=== PATIENT | female | born 1990 | race Caucasian/White ===

== ENCOUNTER 2017-07-29 14:24 | Emergency (ER) | payer MEDICAID, SELFPAY ==
[2017-07-29 14:24] VITALS: BP 154/103; PULSE 135; RESP 16; TEMP 36.5; O2SAT 99; BMI 22.9
[2017-07-29 14:48] VITALS: BP 118/100; PULSE 133; RESP 16; O2SAT 98
--- NOTE | 2017-07-29 14:54 | ED.DCSUM_ITS ---
- ER Visit Summary Date of Service: 07/29/17 Chief Complaint: [Eye redness and drainage, back pain] History of Present Illness: The patient is a 26 F [presents to the emergency department with complaint of bilateral red eyes that started yesterday. Patient states that she just got out of skilled nursing 2 days ago. Patient has a history of chronic back pain and describes some discomfort in her lower back and into the left buttock. Patient has a history of sciatica. Patient denies any sick contacts. Patient has had drainage from both eyes.] Physical Examination: HEENT-PERRLA, EOMI. Cranial nerves II through XII grossly intact. TMs clear. Mucous membranes moist. No adenopathy. Patient has some greenish drainage from both eyes and conjunctival erythema noted. Back exam-patient has some tenderness over the left lumbar paraspinal musculature and left buttock. Cardiovascular-regular rate and rhythm without murmur or ectopy Lungs-clear to auscultation, chest wall stable without crepitus or subcu emphysema Abdomen-normoactive bowel sounds, soft, nontender, no rebound or rigidity, no peritoneal signs. Extremities-intact ?4, normal range of motion, normal pulses, atraumatic[]. Patient has extensive track howe to both upper extremities. Test Results: [None indicated] Emergency Department Course and Treatment: [Patient was given gentamicin ophthalmic eyedrops.] Treatment Plan: [Patient will be treated with gentamicin ophthalmic drops and Flexeril.] Disposition: [Discharged to home in stable condition. Patient advised to follow -up with primary care physician branch operations manager for no doc within next 3-5 days.] Impression: [Bacterial conjunctivitis Acute exacerbation of chronic back pain.] This note was generated with [employer] dictation software. It may contain incorrect words, spelling, and punctuation that were not noted in review of the chart prior to signing ED Disposition - Plan for ED Patient: Chief Complaint: Eye Problem Referrals: Care Physician,No Primary [Primary Care Provider] -
--- NOTE | 2017-07-29 14:55 | ED.DEP ---
ED Disposition - Plan for ED Patient: Chief Complaint: Eye Problem Instructions: ED Conjunctivitis Bacterial, ED Neck Back Pain General Prescriptions: Cyclobenzaprine [Flexeril] 10 mg PO TID PRN #20 tab PRN Reason: Muscle Spasm Referrals: Care Physician,No Primary [Primary Care Provider] - Rosario Benitez DO [STAFF PHYSICIAN] - 3-5 Days
[2017-07-29] MEDS: Gentamicin Sulfate 1 OPTH.BTL 2 DRP EACH EYE (14:59)
[2017-07-29 15:01] VITALS: BP 156/101; PULSE 123; RESP 16; O2SAT 96
== END 2017-07-29 15:13 | disposition home or self-care (01) ==
PROVIDERS: Emergency Provider Emergency Medicine
DX: H10.89 Other conjunctivitis (principal); M54.9 Dorsalgia, unspecified; G89.29 Other chronic pain; F32.9 Major depressive disorder, single episode, unspecified; F41.9 Anxiety disorder, unspecified; Z72.0 Tobacco use
CPT/HCPCS: 99282

== ENCOUNTER 2017-12-14 18:17 | Emergency (ER) | payer MEDICAID, SELFPAY ==
[2017-12-14 18:18] VITALS: BP 127/72; PULSE 99; RESP 18; TEMP 36.6; O2SAT 100; BMI 22.3
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
--- NOTE | 2017-12-14 19:00 | RAD_ITS ---
STUDY: X-RAY - RIGHT HAND, ATTENTION MINIMAL FINGER REASON FOR EXAM: Female, 27 years old. Trauma TECHNIQUE: 3 view(s) of the finger were obtained. COMPARISON: None. FINDINGS: There is no evidence of fracture or dislocation. There are no significant degenerative changes. There are no radiodense foreign bodies. RAD/Finger(s) Min 2 Views IMPRESSION: No fracture or dislocation. Electronically Signed: Azael Santoyo, at 19:33 EDT Tel , Service support ,
== END 2017-12-14 19:29 | disposition home or self-care (01) ==
PROVIDERS: Emergency Provider Emergency Medicine
DX: S60.031A Contusion of right middle finger without damage to nail, initial encounter (principal); V19.88XA Pedal cyclist (driver) (passenger) injured in other specified transport accidents, initial encounter; Y93.55 Activity, bike riding; Y92.9 Unspecified place or not applicable; Y99.9 Unspecified external cause status; F17.200 Nicotine dependence, unspecified, uncomplicated
CPT/HCPCS: 73140; 99283

== ENCOUNTER 2018-04-27 21:46 | Emergency (ER) | payer SELFPAY ==
[2018-04-27 21:47] VITALS: BP 123/84; PULSE 110; RESP 17; TEMP 37.3; O2SAT 97; BMI 21.1
[2018-04-27 21:54] VITALS: TEMP 36.8
--- NOTE | 2018-04-27 22:04 | ED.VISSUMM ---
- ER Visit Summary Date of Service: 04/27/18 Chief Complaint: Tongue pain History of Present Illness: The patient is a 27 F who replaced her tongue ring on April 21 after having been out for a month. She noted increased pain and swelling to her tongue around the site and took the piercing out after 2 days. She continues to have intermittent tongue swelling. She has not noted significant drainage. She has not had fever. Physical Examination: Vital signs significant only for heart rate of 110. She is afebrile. Head neck examination reveals no facial edema or erythema. Intraoral exam reveals mild tongue edema around her piercing site. There is no drainage. There is no palpable abscess. Posterior pharynx exam is normal. Test Results: [] Emergency Department Course and Treatment: Patient be treated with a course of Pen-Vee K, first dose given here. Treatment Plan: [] Disposition: Discharge Impression: Infected tongue piercing This note was generated with [employer] dictation software. It may contain incorrect words, spelling, and punctuation that were not noted in review of the chart prior to signing ED Disposition - Plan for ED Patient: Disposition: Home or Assisted Living Chief Complaint: Other, Pain/Inj Instructions: ED Laceration Mouth Prescriptions: Penicillin V Potassium 500 mg PO 4X/DAY #40 tablet
--- NOTE | 2018-04-27 22:08 | DCINST.ED_ITS ---
ED Disposition - Plan for ED Patient: Disposition: Home or Assisted Living Chief Complaint: Other, Pain/Inj Instructions: ED Laceration Mouth Prescriptions: Penicillin V Potassium 500 mg PO 4X/DAY #40 tablet
[2018-04-27] MEDS: Penicillin Vk 250 MG Tablet 500 MG PO (22:17)
--- NOTE | 2018-04-27 22:21 | ED.RN ---
PT GIVEN WRITTEN AND VERBAL DISCHARGE INSTRUCTIONS. PT DENIES ANY FURTHER QUESTIONS. PT AMBULATES OUT OF DEPT WITH FRIEND.
== END 2018-04-27 22:24 | disposition home or self-care (01) ==
LOC: ED 22:14
PROVIDERS: Emergency Provider Emergency Medicine
DX: K14.0 Glossitis (principal); T18.0XXA Foreign body in mouth, initial encounter; W26.8XXA Contact with other sharp object(s), not elsewhere classified, initial encounter; Y93.9 Activity, unspecified; Y92.9 Unspecified place or not applicable; Y99.9 Unspecified external cause status; M54.9 Dorsalgia, unspecified; Z72.0 Tobacco use
CPT/HCPCS: 99283

== ENCOUNTER 2018-04-30 23:11 | Emergency (ER) | payer SELFPAY ==
[2018-04-30 23:12] VITALS: BP 157/113; PULSE 93; RESP 24; TEMP 36.4; O2SAT 100; BMI 22.1
--- NOTE | 2018-04-30 23:39 | ED.RN ---
LET APPLIED TO THE WOUND
[2018-04-30] MEDS: Lidocaine/Epi/Tetracaine 50 ML 1 APPLIC TOPICAL (23:40)
[2018-04-30] MEDS: Diphth,Pertuss(Acell),Tet Vac 0.5 ML Vial IM (23:54)
--- NOTE | 2018-05-01 | ED.RN ---
[employer] SPEAKING WITH PT. VAL[employer]IE POLICE PINK SLIPPED PT. DR. FORD, STATES PT NEEDS TO BE UNDER SUICIDE PRECAUTIONS. .
[2018-05-01 00:30] LABS: Absolute Lymphocyte Count 1.67 X10^3/ul (0.83-4.51); Absolute Neutrophil Count 2.6 X10^3/uL (2.0-7.7); Basophil# 0.04 X10^3/uL; Basophil% 0.8 % (0-1); Eosinophil# 0.16 X10^3/uL; Eosinophils% 3.2 % (0-5); Hematocrit 39.3 % (37-47); Hemoglobin 13.2 g/dl (12.0-15.0); Lymphocyte # 1.67 X10^3/ul (4.0); Lymphocyte % 33.5 % (19-41); Mean Corp Hgb Conc 33.6 g/gl (32-36); Mean Corpuscular Volume 86.4 fL (81-99); Neutrophil % 52.3 % (47-70); Platelet Count 311 K/mm3 (150-450); RBC Distribution Width CV 13.6 % (11.6-14.6); RBC Distribution Width SD 42.1 fl (35.1-43.9); Red Blood Count 4.55 M/mm3 (4.2-5.4)
[2018-05-01 00:31] LABS: POSITIVE COUNT NO; POSITIVE DIFFERENTIAL NO; POSITIVE MORPHOLOGY NO
[2018-05-01 00:42] LABS: Anion Gap 10 (5-15); BUN 10 mg/dL (7-18); Calcium,Total 8.6 mg/dL (8.5-10.1); Chloride 108 mmol/L (98-107); Creatinine, Serum 0.83 mg/dL (0.55-1.02); EST Glomerular Filtration Rate 87 mL/min (>60); Est Glom Filt Rate - Afr Amer 105 mL/min (>60); Estimated Creatinine Clearance 99.01 ml/min; Glucose 99 mg/dL (74-106); Potassium 3.5 mmol/L (3.5-5.1); Sodium Level 140 mmol/L (136-145)
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
[2018-05-01 01:20] LABS: Pregnancy, Serum, hCG Quali. NEGATIVE Negative (0-9 Nonpreg)
[2018-05-01 01:30] LABS: Amphetamine Urine VISTA POSITIVE (<1000 ng/mL); Barbiturate Urine VISTA NEGATIVE (< 200 ng/mL); Benzodiazepine Urine VISTA NEGATIVE (< 200 ng/mL); Cocaine Urine VISTA NEGATIVE (< 300 ng/mL); Ecstacy Urine VISTA POSITIVE (< 500 ng/mL); Methadone Urine VISTA NEGATIVE (< 300 ng/mL); PCP Urine VISTA NEGATIVE (< 25 ng/mL); THC Urine VISTA NEGATIVE (< 50 ng/mL); Vista UDS pH Range 5
--- NOTE | 2018-05-01 01:56 | ED.DEP ---
ED Disposition - Plan for ED Patient: Disposition: Home or Assisted Living Chief Complaint: Overdose Diagnosis: Heroin overdose, Facial laceration, Tetanus Instructions: ED Laceration Facial Sutr Tape, ED Overdose Opiate Referrals: EIGHTY,ONE [STAFF PHYSICIAN] - Keep Pat appointment
[2018-05-01 02:19] VITALS: PULSE 105; RESP 15; O2SAT 98
== END 2018-05-01 02:51 | disposition home or self-care (01) ==
PROVIDERS: Emergency Provider Emergency Medicine
DX: T40.1X1A Poisoning by heroin, accidental (unintentional), initial encounter (principal); F11.20 Opioid dependence, uncomplicated; Y92.9 Unspecified place or not applicable; S01.81XA Laceration without foreign body of other part of head, initial encounter; X58.XXXA Exposure to other specified factors, initial encounter; Y93.9 Activity, unspecified; Y99.9 Unspecified external cause status; Z23 Encounter for immunization; Z72.0 Tobacco use
CPT/HCPCS: 12011; 80048; 80307; 80320; 84703; 85025; 90471; 90715; 99285; G0480

== ENCOUNTER 2018-06-13 18:54 | Emergency (ER) | payer SELFPAY ==
[2018-06-13 18:54] VITALS: BP 141/91; PULSE 118; RESP 16; TEMP 36.3; O2SAT 96; BMI 21.1
--- NOTE | 2018-06-13 22:22 | ED.DCSUM_ITS ---
- ER Visit Summary Date of Service: 06/13/18 Chief Complaint: Sore throat, congestion History of Present Illness: The patient is a 27 F presenting with sore throat, congestion. Her symptoms have been ongoing for the past 3 days. She complains of painful swallowing but no difficulty swallowing. She complains of subjective fever, chills. She has had rhinorrhea and dry cough. She states yesterday she actually felt worse than she does today. She has multiple sick contacts. Physical Examination: Vitals are stable. Patient is afebrile. Alert no acute distress. HEENT exam pharyngeal erythema with no exudate. Uvula midline Neck is supple. No meningismus Lungs are clear and equal bilaterally. Heart is regular rate and rhythm. Abdomen is soft nontender nondistended. Extremities are unremarkable. Skin is warm and dry. No rash Remainder of exam is unremarkable. Emergency Department Course and Treatment: Rapid strep is negative. She was given Decadron p.o. Advised to follow-up with Dr. Eaton consulting marine engineer for no doc. Advised return to ED if worsening complaints. Disposition: Discharge home Impression: Pharyngitis, URI This note was generated with [employer] dictation software. It may contain incorrect words, spelling, and punctuation that were not noted in review of the chart prior to signing ED Disposition - Plan for ED Patient: Referrals: Care Physician,No Primary [Primary Care Provider] -
[2018-06-13 22:26] VITALS: BP 133/88; PULSE 110; RESP 16; TEMP 36.8; O2SAT 96
[2018-06-13 22:28] VITALS: BP 133/88; PULSE 78; RESP 16; TEMP 36.8; O2SAT 98
--- NOTE | 2018-06-13 23:13 | ED.DEP ---
ED Disposition - Plan for ED Patient: Instructions: ED Pharyngitis Viral Referrals: Edelmira Eaton MD [STAFF PHYSICIAN] -
[2018-06-13 23:25] VITALS: BP 130/81; PULSE 78; RESP 16; O2SAT 97
== END 2018-06-13 23:26 | disposition home or self-care (01) ==
PROVIDERS: Emergency Provider Emergency Medicine
DX: J02.9 Acute pharyngitis, unspecified (principal); J06.9 Acute upper respiratory infection, unspecified; Z72.0 Tobacco use
CPT/HCPCS: 87880; 99282

== ENCOUNTER 2018-10-01 20:51 | Emergency (ER) | payer MEDICAID, SELFPAY ==
[2018-10-01 20:53] VITALS: BP 116/76; PULSE 126; RESP 18; TEMP 37.8; O2SAT 99; BMI 21.9
--- NOTE | 2018-10-01 22:29 | ED.VIS.GEN ---
History of Present Illness Chief Complaint: Sore Throat Informant: Patient Onset: Yesterday Context: Sudden Onset Timing: Continuous Quality: Nasal congestion, fever, cough and sore throat Location: respiratory Current Severity: Moderate Maximum Severity: Moderate Worsened by: Congestion worse if she leans forward Relieved by: Nothing Associated Symptoms: Respiratory symptoms with fever Narrative: Patient is a 28-year-old woman who smokes 1/4 to 1/2 pack/day and presents with nasal congestion, sore throat, nonproductive cough and subjective fever. She denies chills. She denies headache. She denies photophobia. She denies ear pain. She denies rash. Prior similar symptoms: No Recent Illness/Hospitalization: No - Past Medical History (1) No significant past medical history Status: Acute Past Medical History - Allergies and Home Meds Allergies/Adverse Reactions: Allergies naproxen [From Naprosyn] Adverse Reaction (Verified 10/01/18 20:55) Nausea Primary Care Physician: Woody Infante DO [Primary Care Provider] - Prior records reviewed: No Past Medical History: None Surgical History: no surgical history Lives: Spouse/ Significant Other Smoking Status: Current every day smoker Alcohol: Rare Review of Systems General: Reports: Chills, Fever, Malaise, Subjective. Denies: Sweats, Weight loss Eyes: Denies: Visual changes - bilaterally, Blurred Vision - bilaterally, Diplopia ENT: Reports: Rhinorrhea, Sore throat. Denies: Bilateral ear pain Cardiovascular: Denies: Chest pain, Palpitations, Heart racing Respiratory: Reports: Cough. Denies: Dyspnea, Sputum, Dyspnea on exertion Gastrointestinal: Reports: Abdominal pain, Nausea, Vomiting Genitourinary: Denies: Dysuria, Hematuria, Frequency Musculoskeletal: Denies: Myalgias, Arthralgias, Neck pain, Back pain, Extremity Pain Skin: Denies: Rash, Wounds Neurological: Denies: Headache, Weakness, Numbness Endocrine: Denies: Polyuria, Polydipsia, Heat intolerance, Cold intolerance, -, - Hematologic: Denies: Easy bruising, Easy bleeding, Lymphadenopathy, -, - Physical Exam Vital Signs/Narrative: Vital Signs Temp Pulse Resp BP Pulse Ox 10/01/18 20:53 100.1 F H 126 H 18 116/76 99 Inital Vital Signs reviewed: Yes General: Well nourished, Well developed, No Acute Distress Head: Normocephalic, Atraumatic Eyes: Perrl, EOMI. Negative for: Pale conjunctiva, Scleral icterus, - ENT: Moist mucous membranes, TM's clear. Negative for: No rhinorrhea, Sinus tenderness Neck: Supple, Nontender, No lymphadenopathy, No JVD Cardiovascular: Regular rhythm, No murmurs, Normal S1, Normal S2, Tachycardia Respiratory: No distress, CTA bilaterally, Chest nontender Abdomen: Soft, Nontender, Nondistended, Normal bowel sounds Rectal: Deferred Back: Nontender, Normal Inspection. Negative for: CVA tenderness Extremities: Nontender, No edema Skin: Normal color, No rash. Negative for: Cyanosis, Jaundice Neurological: Alert, Oriented x3, Cranial nerves II-XII grossly intact, Normal Strength, Normal Sensation Psychological: Normal affect, Normal Mood Diagnostic/Tx/Re-eval Chest X-Ray - ED: 2 View, Read by ED Physician, Normal, Heart, Lungs, Mediastinum, Bony Structures, No Acute Disease - Medical Decision Making Since patient is tachycardic and febrile with cough will obtain chest x-ray. Differential is bronchitis versus pneumonia. Patient's x-ray is negative. Symptoms consistent with viral upper respiratory infection. Symptomatic care. Discharged with appropriate home-going instructions. ED Disposition - Plan for ED Patient: Disposition: Home or Assisted Living Diagnosis: Viral upper respiratory infection, Fever Instructions: ED URI Viral Referrals: Woody Infante DO [Primary Care Provider] - 1 Week if not improving Additional Instructions: It is in your best interest to stop smoking. Because you do smoke he may have a cough up to 4 weeks.
--- NOTE | 2018-10-01 22:45 | RAD_ITS ---
STUDY: X-RAY CHEST REASON FOR EXAM: Female, 28 years old. Cough. Congestion. TECHNIQUE: PA and lateral views of the chest. COMPARISON: April 18, 2015. FINDINGS: The lungs are clear and expanded. There is no demonstrated pleural abnormality. Normal size heart. Normal mediastinum and ivania. Normal visualized pulmonary arteries. Normal visualized aortic arch and descending thoracic aorta. Normal visualized thoracic spine. Normal visualized ribs, clavicles, and shoulders. There is no demonstrated abnormality of the visualized soft tissue structures of the upper abdomen. RAD/Chest PA and Lateral IMPRESSION: Normal x-ray examination of the chest. Electronically Signed: Alvarez Leonard MD at 23:01 EDT , Service support ,
[2018-10-01 23:31] VITALS: BP 122/76; PULSE 119; RESP 18; O2SAT 99
== END 2018-10-01 23:32 | disposition home or self-care (01) ==
PROVIDERS: Emergency Provider Emergency Medicine; Family Provider Family Medicine; PCP Family Medicine
DX: J06.9 Acute upper respiratory infection, unspecified (principal); R50.9 Fever, unspecified; F17.200 Nicotine dependence, unspecified, uncomplicated; Z88.6 Allergy status to analgesic agent
CPT/HCPCS: 71046; 99282

== ENCOUNTER → 2019-01-29 09:42 | Outpatient (CLI) | payer MEDICAID, SELFPAY ==
[2019-01-29 09:15] VITALS: BMI 21.9
[2019-01-29 12:24] LABS: Hematocrit 44.4 % (37-47); Hemoglobin 14.4 g/dL (12.0-15.0); Mean Corp Hgb Conc 32.4 g/dL (32-36); Mean Corpuscular Hgb 28.8 pg (27.0-32.0); Mean Corpuscular Volume 88.8 fL (81-99); Mean Platelet Vol. 10.5 fl (6.2-12.0); Platelet Count 349 K/mm3 (150-450); RBC Distribution Width CV 12.5 % (11.6-14.6); RBC Distribution Width SD 40.6 fl (35.1-43.9); White Blood Count 4.3 K/mm3 (4.4-11.0)
[2019-01-29 12:40] LABS: ALB/GLOB Ratio 0.9 RATIO (0.9-2.4); AST(SGOT) 79 U/L (15-37); Alanine Aminotransfer ALT/SGPT 152 U/L (13-56); Albumin, Serum 3.7 g/dL (3.2-5.0); Alkaline Phosphatase 86 U/L (45-117); Anion Gap 6 (5-15); BUN 19 mg/dL (7-18); BUN/Creat Ratio 23.5 RATIO (10-20); Calcium,Total 9.1 mg/dL (8.5-10.1); Chloride 107 mmol/L (98-107); Creatinine, Serum 0.81 mg/dL (0.55-1.02); EST Glomerular Filtration Rate 90 mL/min (>60); Est Glom Filt Rate - Afr Amer 108 mL/min (>60); Glucose 82 mg/dL (74-106); Potassium 4.4 mmol/L (3.5-5.1); Protein, Total 7.7 g/dL (6.4-8.2); Sodium Level 140 mmol/L (136-145); Thyroid Stim Hormone (TSH) 0.77 uIU/mL (0.358-3.74)
[2019-01-29 13:58] LABS: HIV - WCH Non-Reactive (Nonreactive)
[2019-01-30 06:07] LABS: HEPATITIS B SURFACE AG Negative (Negative); Hepatitis A AB, Total Negative (Negative); Hepatitis A IgM Antibody Negative (Negative); Hepatitis B Core AB IgM Negative (Negative); Hepatitis B Core Ab Total Negative (Negative)
[2019-01-30 15:25] LABS: Hep B Surface Antibodies Reactive (.); Hepatitis C Ab >11.0 s/co ratio (0.0-0.9)
[2019-02-05 20:07] LABS: HCV Quant. RNA PCR 129000 IU/mL (.)
[2019-02-07 11:09] LABS: HCV log 10 5.111 (.)
== END ==
PROVIDERS: Family Provider Family Medicine; PCP Internal Medicine; Visit Provider Nurse Practitioner Family
DX: B19.20 Unspecified viral hepatitis C without hepatic coma (principal); F19.10 Other psychoactive substance abuse, uncomplicated
CPT/HCPCS: 36415; 80053; 84443; 85027; 86703; 86704; 86705; 86706; 86708; 86709; 86803; 87340; 87521; 87522

== ENCOUNTER → 2019-03-11 15:16 | Outpatient (CLI) | payer MEDICAID, SELFPAY ==
[2019-02-26 13:13] VITALS: BMI 29.4
[2019-03-11 17:13] LABS: Hematocrit 41.7 % (37-47); Hemoglobin 13.6 g/dL (12.0-15.0); Mean Corp Hgb Conc 32.6 g/dL (32-36); Mean Corpuscular Hgb 28.3 pg (27.0-32.0); Mean Corpuscular Volume 86.7 fL (81-99); Mean Platelet Vol. 10.5 fl (6.2-12.0); Platelet Count 368 K/mm3 (150-450); RBC Distribution Width CV 12.7 % (11.6-14.6); RBC Distribution Width SD 40.3 fl (35.1-43.9); Red Blood Count 4.81 M/mm3 (4.2-5.4); White Blood Count 7.1 K/mm3 (4.4-11.0)
[2019-03-11 18:00] LABS: AST(SGOT) 30 U/L (15-37); Alanine Aminotransfer ALT/SGPT 69 U/L (13-56); Albumin, Serum 3.9 g/dL (3.2-5.0); Alkaline Phosphatase 99 U/L (45-117); Anion Gap 9 (5-15); BUN 13 mg/dL (7-18); BUN/Creat Ratio 17.1 RATIO (10-20); Calcium,Total 8.7 mg/dL (8.5-10.1); Chloride 105 mmol/L (98-107); Creatinine, Serum 0.76 mg/dL (0.55-1.02); EST Glomerular Filtration Rate 96 mL/min (>60); Est Glom Filt Rate - Afr Amer 116 mL/min (>60); Globulin 3.8 g/dL (2.2-4.2); Glucose 79 mg/dL (74-106); Potassium 3.5 mmol/L (3.5-5.1); Protein, Total 7.7 g/dL (6.4-8.2); Sodium Level 138 mmol/L (136-145); Thyroid Stim Hormone (TSH) 0.77 uIU/mL (0.358-3.74)
[2019-03-12 09:28] LABS: HIV - WCH Non-Reactive (Nonreactive); Hepatitis B Surface Antibody Reactive; Hepatitis B Surface Antigen Non-Reactive (Nonreactive)
[2019-03-13 14:53] LABS: Hepatitis B Core Ab Total Negative (Negative)
== END ==
PROVIDERS: Family Provider Internal Medicine; PCP Internal Medicine; Referring Provider Internal Medicine Infectious Disease; Visit Provider Internal Medicine Infectious Disease
DX: B18.2 Chronic viral hepatitis C (principal)
CPT/HCPCS: 36415; 80053; 84443; 85027; 86703; 86704; 86706; 87340

== ENCOUNTER 2019-04-02 13:03 | Emergency (ER) | payer MEDICAID, SELFPAY ==
[2019-02-26 13:13] VITALS: BMI 29.4
[2019-04-02 13:03] VITALS: BP 132/65; PULSE 100; RESP 18; TEMP 36.6; O2SAT 96; BMI 28.1
--- NOTE | 2019-04-02 13:14 | ED.DCSUM_ITS ---
- ER Visit Summary Date of Service: 04/02/19 Chief Complaint: [Headache] History of Present Illness: The patient is a 28 F [presents the emergency department stating that she has had a migraine headache for the last 2 days. Patient states the headache came on gradually. Patient states the headache is typical of her migraines. She describes pain to both sides of her head however more significant on the left side of her head. She denies any falls or head injuries. She denies recent illness. She denies any fevers. She does describe some mild nausea and some mild photophobia. Patient's been using Excedrin Migraine without any relief.] Physical Examination: [HEENT-PERRLA, EOMI. Cranial nerves II through XII grossly intact. TMs clear. Mucous membranes moist. No adenopathy. Cardiovascular-regular rate and rhythm without murmur or ectopy Lungs-clear to auscultation, chest wall stable without crepitus or subcu emphysema Abdomen-normoactive bowel sounds, soft, nontender, no rebound or rigidity, no peritoneal signs. Neuro doom-khhsrr-gshg and heel dominique testing within normal limits, negative Romberg, negative pronator, fundi benign Extremities-intact ?4, normal range of motion, normal pulses, atraumatic] Test Results: [None indicated] Emergency Department Course and Treatment: [Patient was given a liter normal saline fluid bolus as well as Reglan, Benadryl, and Toradol.] Patient's headache resolved after treatment. Treatment Plan: [Patient to follow-up with primary care physician as needed. Patient advised to return if worsening headache, difficulty with balance or speech, or condition should worsen anyway.] Disposition: [Discharged home in stable condition.] Impression: [Migrainous cephalgia-resolved] This note was generated with [employer] dictation software. It may contain incorrect words, spelling, and punctuation that were not noted in review of the chart prior to signing ED Disposition - Plan for ED Patient: Referrals: Navi Kemp MD [Primary Care Provider] -
[2019-04-02] MEDS: DiphenhydrAMINE 50 MG/ML Syringe 25 MG IV (13:31)
[2019-04-02] MEDS: Ketorolac 30 MG/ML Syringe IV (13:33)
[2019-04-02] MEDS: Metoclopramide 10 MG/2 ML Vial IV (13:34)
[2019-04-02] MEDS: 0.9% Normal Saline 1,000 ML 1000 ML IV (13:34)
--- NOTE | 2019-04-02 13:55 | ED.DEP ---
ED Disposition - Plan for ED Patient: Instructions: ED, Migraine (Classical) Referrals: Navi Kemp MD [Primary Care Provider] - As Needed
[2019-04-02 14:06] VITALS: BP 105/69; PULSE 71; RESP 16; O2SAT 99
== END 2019-04-02 14:08 | disposition home or self-care (01) ==
LOC: ED 13:42
PROVIDERS: Emergency Provider Emergency Medicine; Family Provider Internal Medicine; PCP Internal Medicine
DX: G43.909 Migraine, unspecified, not intractable, without status migrainosus (principal); F31.9 Bipolar disorder, unspecified; F41.9 Anxiety disorder, unspecified; Z72.0 Tobacco use; Z79.899 Other long term (current) drug therapy
CPT/HCPCS: 96361; 96374; 96375; 99284; J7030; A4216

== ENCOUNTER → 2019-08-11 08:33 | Outpatient (CLI) | payer MEDICAID, SELFPAY ==
[2019-08-08 09:29] VITALS: BMI 29.0
--- NOTE | 2019-08-11 08:34 | US_ITS ---
STUDY: ABDOMINAL ULTRASOUND - RIGHT UPPER QUADRANT REASON FOR VISIT: Female, 28 years old epigastric pain x 3 months TECHNIQUE: Ultrasound evaluation of the right upper quadrant was performed with real-time and static mahoney-scale imaging. TECHNICAL QUALITY: Adequate. COMPARISON: None. FINDINGS: Liver: The liver measures 16.2 cm. There is normal echogenicity of the liver. The bile ducts are within normal limits. There is hepatic color flow. The direction of portal flow is hepatopetal. There is no demonstrated mass lesion. Gallbladder: There is a contracted stone filled gallbladder. The gallbladder wall measures 4.1 mm. There is a positive sonographic Gomez''s sign. There is no pericholecystic fluid. Common Bile Duct (C.B.D.): The common bile duct measures 4.2 mm. Pancreas: Normal size of the head, body and tail of the pancreas. There is normal echogenicity of the pancreas. There is no demonstrated pancreatic mass or cyst. Right Kidney: Normal size of the right kidney. The right kidney measures 10.5 cm x 4.2 cm x 6.9 cm. Normal renal cortex. The right cortex measures 1.9 cm. There is no demonstrated renal mass or cyst. There is no right hydronephrosis. US/Abdomen Limited IMPRESSION: There is a contracted stone filled gallbladder. Positive sonographic Gomez''s sign. Electronically Signed: Adeel Chamberlain, at 11:05 EDT , Service support ,
[2019-08-11 13:31] LABS: Absolute Neutrophil Count 4.9 X10^3/uL (2.0-7.7); Basophil# 0.05 X10^3/uL; Basophil% 0.7 % (0-1); Eosinophil# 0.19 X10^3/uL; Eosinophils% 2.8 % (0-5); Hematocrit 39.6 % (37-47); Hemoglobin 13.4 g/dL (12.0-15.0); Mean Corp Hgb Conc 33.8 g/dL (32-36); Mean Corpuscular Hgb 28.7 pg (27.0-32.0); Mean Corpuscular Volume 84.8 fL (81-99); Mean Platelet Vol. 9.3 fl (6.2-12.0); Monocyte# 0.36 X10^3/uL; Monocyte% 5.3 % (0-10); NRBC Flagged by Analyzer 0 % (0-5); Neutrophil # 4.93 X10^3/uL (2.7-7.7); Neutrophil % 71.9 % (47-70); Platelet Count 319 K/mm3 (150-450); RBC Distribution Width CV 12.9 % (11.6-14.6); RBC Distribution Width SD 39.6 fl (35.1-43.9); Red Blood Count 4.67 M/mm3 (4.2-5.4); White Blood Count 6.9 K/mm3 (4.4-11.0)
[2019-08-11 13:56] LABS: AST(SGOT) 30 U/L (15-37); Alanine Aminotransfer ALT/SGPT 55 U/L (13-56); Albumin, Serum 3.6 g/dL (3.2-5.0); Alkaline Phosphatase 108 U/L (45-117); Anion Gap 6 (5-15); BUN 9 mg/dL (7-18); BUN/Creat Ratio 9.6 RATIO (10-20); Calcium,Total 8.6 mg/dL (8.5-10.1); Chloride 102 mmol/L (98-107); Creatinine, Serum 0.94 mg/dL (0.55-1.02); EST Glomerular Filtration Rate 75 mL/min (>60); Est Glom Filt Rate - Afr Amer 91 mL/min (>60); Globulin 3.7 g/dL (2.2-4.2); Glucose 102 mg/dL (74-106); Potassium 3.9 mmol/L (3.5-5.1); Protein, Total 7.3 g/dL (6.4-8.2); Sodium Level 134 mmol/L (136-145)
== END ==
LOC: US 08:34 → LAB 13:02
PROVIDERS: PCP Internal Medicine; Referring Provider Surgery; Visit Provider Surgery
DX: K80.20 Calculus of gallbladder without cholecystitis without obstruction (principal)
CPT/HCPCS: 36415; 76705; 80053; 85025

== ENCOUNTER 2019-08-22 07:27 | Day surgery (SDC) | payer MEDICAID, SELFPAY ==
[2019-08-08 09:29] VITALS: BMI 29.0
--- NOTE | 2019-08-21 12:53 | PCM.HP.STD ---
Problem List (1) Cholecystitis Status: Acute History of Present Illness Date of Admission: 08/21/19 Chief Complaint: Cholecystitis The patient is a 28 year old F who has been having epigastric pain. I started her on a trial of Carafate and PPI which did not help. She is having right upper quadrant pain and epigastric pain radiating to the back. She says over the last 2 days she is also had nausea and vomiting and worsening of pain. Past Medical History Past Medical History (Chronic Problems): Chronic Problems (Last Reviewed 08/07/19 @ 15:09 by Marisela Riley) Migraines (Chronic) Bipolar disorder (Chronic) Asthma (Chronic) Medical History: Medical History (Last Reviewed 08/07/19 @ 15:09 by Marisela Riley) Alcohol abuse F10.10 Anxiety and depression F41.9, F32.9 Asthma J45.909 Back problem M53.9 Bipolar 1 disorder F31.9 Bone fracture T14.8XXA Drug abuse F19.10 Hearing loss in left ear H91.92 Hx of emotional problems Z86.59 PTSD (post-traumatic stress disorder) F43.10 Pneumonia J18.9 Seasonal allergies J30.2 Vision problem H54.7 Chronic bronchitis J42 Chronic headaches R51 Allergies naproxen [From Naprosyn] Adverse Reaction (Verified 08/07/19 15:06) Nausea otc skin products Adverse Reaction (Intermediate, Uncoded 08/21/19 10:57) Unknown some soaps dry skin out Home Medications: Ambulatory Orders Medication Instructions Recorded acetaminophen 325 mg capsule 325 mg PO Q6H PRN 01/29/19 budesonide-formoterol HFA 160 2 puff INHALATION BID #10.2 g 01/29/19 mcg-4.5 mcg/actuation aerosol inhaler risperidone 1 mg tablet 2 mg PO QHS 01/29/19 albuterol sulfate 90 mcg/actuation 1 - 2 puff INHALATION Q6H PRN #8.5 07/02/19 aerosol inhaler g pantoprazole 40 mg tablet,delayed 40 mg PO DAILY #60 tab 07/22/19 release lidocaine 5 % topical cream 1 applic TOPICAL BID PRN 08/07/19 Lamotrigine [Lamictal] 200 mg PO DAILY 08/21/19 Loratadine [Claritin] 10 mg PO DAILY 08/21/19 Oxcarbazepine [Trileptal] 600 mg PO BID 08/21/19 Sucralfate [Carafate] 1 gm PO 4X/DAY PRN 08/21/19 Sumatriptan Succinate See Rx Instructions PO .COMPLEX 08/21/19 Surgical History: Surgical History (Last Reviewed 08/07/19 @ 15:09 by Marisela Riley) History of laparoscopic appendectomy Z90.49 History of oral surgery Z98.890 Surgical History: no surgical history Smoking Status: Current every day smoker - *Family History Maternal Family History: Family History (Last Reviewed 08/07/19 @ 15:09 by Marisela Riley) Unknown Alcoholism Anxiety Asthma Depression Myocardial infarction Suicide attempt Other Cancer Review of Systems Constitutional: Reports: Anorexia. Denies: Fever Cardiovascular: Denies: Chest Pain Respiratory: Denies: Cough Gastrointestinal: Reports: Abdominal Pain, Nausea, Vomiting Skin: Denies: Jaundice VTE Information - Inpt Only VTE Present on Admission: No VTE Mechan Device Prophylaxis: SCD's - Physical Exam Vitals/I&O's: Body Mass Index (BMI) 29.0 Finger Stick Blood Glucose 119 General: Alert, Oriented x3 Neck: No JVD Lungs: Normal air movement Cardiovascular: Regular Rhythm Abdomen: Soft, Non-Distended, Tender Assessment/Plan All Active Problems (Last Reviewed 08/07/19 @ 15:09 by Marisela Riley) Cholecystitis (Acute) No significant past medical history (Acute) 28-year-old female with acute on chronic cholecystitis 1. The patient has been having epigastric pain and PPI and Carafate did not help. I ordered an ultrasound which showed a contracted gallbladder full of stones. At that time I ordered labs which were all normal. I advised her to have a low-fat diet but she has described worsening of pain and nausea and vomiting that have developed in the interim. I recommend laparoscopic cholecystectomy for her. 2. I discussed the procedure in detail with the patient. I discussed the risks, benefits, and alternatives of the procedure. I discussed the risks including but not limited to bleeding, infection, injury to surrounding organs such as the liver, bile duct, bowels. I did discuss the possibility of having to convert to an open procedure as well as the possibility that if any injuries occurred this may necessitate further surgery at a tertiary care center. Anderson Gilmore MD Pager: [facility] [address] [place] [address], [address] [place] [address] Office: Essential Procedure Criteria Procedure Essential: Yes Criteria Note: On 07/22/2019 the [facility] ([facility]) Public Order signed by [facility] Director Angelina Amaro M.D., regarding the Management of Non-Essential Surgeries and Procedures for the purpose of preserving Personal Protective Equipment (PPE) and critical hospital capacity and resources within [place] went into effect as of 07/23/2019 at 5:00PM. According to the [facility] Public Order: This action will remain in full force and effect until the State of Emergency declared by the Governor no longer exists or the Director of the [facility] rescinds or modifies this Order.. This [facility] order stated all non-essential or elective surgeries and procedures that utilize PPE should be delayed unless there is undue risk to the current or future health of a patient. After reviewing the aforementioned [facility] Public Order and the patients clinical case, I have determined that the scheduled procedure meets the criteria to go forward. Risk to Patient if Procedure Delayed: Risk of rapidly worsening to severe symptoms
[2019-08-22] VITALS (7 sets, daily range): BP systolic 127–139; BP diastolic 71–88; PULSE 83–93; RESP 16; TEMP 36.4–36.6; O2SAT 92–100; BMI 29.0
--- NOTE | 2019-08-22 | GALL_PTH ---
PATIENT: ELVER JONES [place] [facility] [id number] AGE/SX: 28/F ROOM: RE08/22/[address]: Dr. Anderson Gilmore MD : 1990 BED: DIS: 08/22/2019 SPEC #: [id number] RECD: 08/23/19 00:37 STATUS: ORIANA RETara #: [id number] SALINAS: 08/22/19 00:[address]: Anderson Gilmore DEPT: SURGICAL PATHOLOGY RECD BY: Luis Antonio Pacheco ENTERED: 08/25/19 10:08 SP TYPE: ARCADIO LUBIN DR: Dr. Navi Kemp MD Tissues: Gallbladder, NOS Procedures: Surgery Specimen Level III HEADER OPERATION: Laparoscopic cholecystectomy with IOC PRE-OP DIAGNOSIS: Cholecystitis TISSUE SUBMITTED: Gallbladder MICROSCOPIC DIAGNOSIS Gallbladder, cholecystectomy: Chronic cholecystitis and cholelithiasis. AM:gissel 4/21/20 MICROSCOPIC DESCRIPTION Slides are reviewed. GROSS DESCRIPTION Received is one container labeled with the patient's name and designated gallbladder. The specimen consists of a gallbladder measuring 7 cm in length and up to 3 cm in diameter. The external surface is pink-singh, smooth and glistening for the most part. Focally it is granular, hemorrhagic and contains cautery artifact. The gallbladder contains a small amount of thick, green-yellow mucoid bile and multiple irregular to multifaceted, brownish stones measuring in aggregate 4 x 4 x 1.5 cm and 1 to 1.5 cm in greatest dimension. The mucosa is bile-stained and without any mass lesions. The gallbladder wall measures up to 0.3 cm in thickness. Automotive Service Manager sections from the gallbladder and the cystic duct are submitted in one cassette. / SJ:gissel 08/25/19 TC:3 [facility]: [id number]
--- NOTE | 2019-08-22 07:35 | EKG12_ITS ---
Test Reason : PREOP Blood Pressure : / mmHG Vent. Rate : 081 BPM Atrial Rate : 081 BPM P-R Int : 148 ms QRS Dur : 072 ms QT Int : 384 ms P-R-T Axes : 035 020 056 degrees QTc Int : 446 ms Normal sinus rhythm Normal ECG Confirmed by MUNIRA CUNHA, ARIADNA ([id number]), editor publications LUISITO DIAZ ([id number]) on 08/27/2019 10:04:23 AM Referred By: Anderson Gilmore Confirmed By:ARIADNA LOMBARDO MD
[2019-08-22 07:50] LABS: Internal QC Validated? YES +Cl - CLEAR BKGD; Pregnancy, Urine Negative Negative
[2019-08-22] MEDS: Lactated Ringers 1,000 ML 100 ML IV ×2 (07:50→11:13)
[2019-08-22 08:16] LABS: AST(SGOT) 25 U/L (15-37); Alanine Aminotransfer ALT/SGPT 43 U/L (13-56); Albumin, Serum 3.6 g/dL (3.2-5.0); Alkaline Phosphatase 97 U/L (45-117); Globulin 3.4 g/dL (2.2-4.2)
--- NOTE | 2019-08-22 09:20 | RAD_ITS ---
STUDY: CHOLANGIOGRAM REASON FOR EXAM: Female, 28 years old. Flank pain Cholecystectomy. FLUOROSCOPY TIME (if supplied): (0:02) minutes/seconds TECHNIQUE: Intraoperative fluoroscopy. 2 intraoperative views. COMPARISON: None. FINDINGS: There is opacification of cystic duct and common bile duct. No filling defects are seen the common bile duct to suggest retained stone. Contrast flows easily into the duodenum. RAD/Cholangiogram/ O R,Initial IMPRESSION: There is no evidence of retained stones in the common bile duct. Electronically Signed: Gwen Szymanski, at 11:12 EDT Tel , Service support ,
[2019-08-22] MEDS: Bupiv/Epi 0.25% 30 ML Vial (10:23)
--- NOTE | 2019-08-22 11:18 | OP.PCM_ITS ---
Problem List (1) Cholecystitis Status: Acute Report of Operation Date of Procedure: 08/22/19 Pre-Operative Diagnosis: Acute cholecystitis Post-Operative Diagnosis: Same Surgery/Procedure Performed:: Laparoscopic cholecystectomy with cholangiogram Specimen's removed: Gallbladder and contents Description of Procedure: After obtaining informed consent patient was brought back to the operating room. General anesthesia was induced. The abdomen was prepped and draped in usual sterile fashion. A small midline incision was made superior to the umbilicus and deepened to the level of fascia. The fascia was elevated and incised. Next the peritoneum was elevated and incised in the same fashion. Finger sweep was performed and the Hidalgo trocar was placed into the abdomen. The balloon was inflated. The abdomen was inflated to 15 mmHg. Next a camera was introduced into the abdomen and the abdomen was inspected. Next under direct visualization three 5-mm ports were placed one subxiphoid and 2 subcostal. Next the gallbladder was elevated and retracted toward the right shoulder. The gallbladder was significantly inflamed. Several adhesions had to be removed in the anterior gallbladder surface. The peritoneum was stripped from the gallbladder. The infundibulum was located and retracted laterally. Next the triangle of Calot was dissected and the cystic duct and cystic artery were identified. Cholangiograms were performed. The Mauricio clamp was used to clamp across the infundibulum and the catheter needle was inserted into the gallbladder. Under fluoroscopy contrast was instilled into the gallbladder and the common duct, cystic duct as well as proximal hepatic ducts were identified. There was good filling of the duodenum. There were no filling defects noted in the common bile duct. The clamp was removed as well as the needle and the infundibulum was grasped once more. Three hemolock clips were placed across the cystic duct. The cystic duct was then divided leaving 2 clips on the stump. The cystic artery was clipped and divided in the same fashion. The hook cautery was then used to take the gallbladder off of the gallbladder bed. Hemostasis was obtained. Gallbladder fossa was irrigated and no active bleeding or bile leakage was noted. Next the camera was introduced in the subxiphoid port. An Endopouch bag was placed through the umbilical port and the gallbladder was placed into it. The gallbladder was then removed through the umbilical incision. The camera was then reinserted through the umbilical port. The gall bladder fossa was inspected once more and noted to be hemostatic with no leaking bile. The abdomen was suctioned dry. Surgicel powder was placed in the gallbladder fossa. The air was allowed to desufflate from the abdomen through the smoke evacuator attached to the port. The 5 mm ports were removed. The umbilical port was then removed. Next using an 0 Vicryl suture the umbilical fascia was closed in a [id number] fashion. The umbilical port site was irrigated local anesthetic was administered to all the incisions. All the incisions were closed with interrupted subcuticular 4-0 Monocryl sutures followed by Steri-Strips and dressings. The patient was awoken and taken to PACU in stable condition. - Admit VTE Documentation VTE Mechan Device Prophylaxis: SCD's
--- NOTE | 2019-08-22 11:20 | PCM.DC.GB ---
Discharge Diet: Light diet - advance as tolerated Discharge Activity: Return to Normal Activity, May Not Drive - for 2-3 days or while taking narcotic pain medicataions., - - Do not drive, work heavy equipment or sign legal documents for 24 hours. May shower in (days): 1 - with the bandage in place. Lifting Restrictions: 20 lbs for 2 weeks Additional Activity Instructions:: Pain medication may cause nausea. You should typically eat light foods as you take your pain medications. Pain medication may also cause constipation. If this is a problem for you, please discuss with your doctor. Call your doctor if your incision/area has: Continuous Slow Oozing, Sudden Increased Bleeding, Increased Pain/ Swelling, Increased Redness, Foul Smelling Discharge, Fever of 101 or Higher Call your doctor if you observe: Fever of 101 or Higher Suture Line Care: Avoid Pulling/Pushing, Avoid Pinching/Bending Additional Dressing/Incision Instructions:: Leave operative bandaids on for 2 days. When you remove dressing, leave Steri-Strips on until your follow-up appointment, or until the Steri-Strips fall off on their own. Instructions: ED Cholecystitis Confirmed Allergies/Adverse Reactions: Allergies naproxen [From Naprosyn] Adverse Reaction (Verified 08/22/19 07:43) Nausea otc skin products Adverse Reaction (Intermediate, Uncoded 08/22/19 07:43) Unknown some soaps dry skin out Medications to take at Discharge acetaminophen 325 mg capsule 325 mg PO Q6H PRN 01/29/19 budesonide-formoterol HFA 160 mcg-4.5 mcg/actuation aerosol inhaler 2 puff INHALATION BID #10.2 g 01/29/19 risperidone 1 mg tablet 2 mg PO QHS 01/29/19 albuterol sulfate 90 mcg/actuation aerosol inhaler 1 - 2 puff INHALATION Q6H PRN #8.5 g 07/02/19 pantoprazole 40 mg tablet,delayed release 40 mg PO DAILY #60 tab 07/22/19 lidocaine 5 % topical cream 1 applic TOPICAL BID PRN 08/07/19 Lamotrigine [Lamictal] 200 mg PO DAILY 08/21/19 Loratadine [Claritin] 10 mg PO DAILY 08/21/19 Oxcarbazepine [Trileptal] 600 mg PO BID 08/21/19 Sucralfate [Carafate] 1 gm PO 4X/DAY PRN 08/21/19 Sumatriptan Succinate See Rx Instructions PO .COMPLEX 08/21/19 Oxycodone HCl/Acetaminophen [Percocet 5-325 mg Tablet] 1 - 2 tab PO Q6H PRN 7 Days #40 tablet 08/22/19 The following prescriptions were given: Oxycodone HCl/Acetaminophen [Percocet 5-325 mg Tablet] 1 - 2 tab PO Q6H PRN 7 Days #40 tablet PRN Reason: Pain Score 4-10/10 Transmission Status: Sent to [facility] Primary Care Physician: Navi Kemp MD [Primary Care Provider] - Test Results: Test results from this visit will be discussed in further detail at your follow-up appointment, if applicable. Please Follow Up With: Anderson Gilmore MD When: Please call to schedule 2 week follow up appointment. [phone]
[2019-08-22] MEDS: oxyCODONE 5 MG Tablet 10 MG PO (12:09)
[2019-08-22] MEDS: Acetaminophen 325 MG Tablet 650 MG PO (12:10)
== END 2019-08-22 14:31 | disposition home or self-care (01) ==
LOC: SDC 07:29 → AC 07:29
PROVIDERS: Anesthesiology; PCP Internal Medicine; Referring Provider Surgery; Visit Provider Surgery
PROC: (CPT 47610; principal; 2019-08-22 08:40)
DX: K80.12 Calculus of gallbladder with acute and chronic cholecystitis without obstruction (principal); K82.8 Other specified diseases of gallbladder; K21.9 Gastro-esophageal reflux disease without esophagitis; J45.909 Unspecified asthma, uncomplicated; G43.909 Migraine, unspecified, not intractable, without status migrainosus; F31.9 Bipolar disorder, unspecified; F43.10 Post-traumatic stress disorder, unspecified; F17.200 Nicotine dependence, unspecified, uncomplicated; Z91.14 Patient's other noncompliance with medication regimen
CPT/HCPCS: 47563; 36415; 74300; 76000; 80076; 81025; 88304; 93005; J7120; J2405

== ENCOUNTER → 2019-12-29 09:52 | Outpatient (CLI) | payer MEDICAID, SELFPAY ==
[2019-12-29 09:05] VITALS: BMI 29.0
[2019-12-29 12:17] LABS: Absolute Lymphocyte Count 1.15 X10^3/uL (0.83-4.51); Absolute Neutrophil Count 5.3 X10^3/uL (2.0-7.7); Basophil# 0.06 X10^3/uL; Basophil% 0.8 % (0-1); Eosinophil# 0.03 X10^3/uL; Eosinophils% 0.4 % (0-5); Hematocrit 44.4 % (37-47); Hemoglobin 14.7 g/dL (12.0-15.0); Lymphocyte # 1.15 X10^3/ul (4.0); Lymphocyte % 16.2 % (19-41); Mean Corp Hgb Conc 33.1 g/dL (32-36); Mean Corpuscular Hgb 29.9 pg (27.0-32.0); Mean Corpuscular Volume 90.2 fL (81-99); Mean Platelet Vol. 9.7 fl (6.2-12.0); Monocyte# 0.52 X10^3/uL; Monocyte% 7.3 % (0-10); NRBC Flagged by Analyzer 0 % (0-5); Neutrophil # 5.34 X10^3/uL (2.7-7.7); Platelet Count 462 K/mm3 (150-450); RBC Distribution Width CV 13.4 % (11.6-14.6); RBC Distribution Width SD 43.8 fl (35.1-43.9); Red Blood Count 4.92 M/mm3 (4.2-5.4); White Blood Count 7.1 K/mm3 (4.4-11.0)
[2019-12-29 12:39] LABS: ALB/GLOB Ratio 1.1 RATIO (0.9-2.4); AST(SGOT) 24 U/L (15-37); Alanine Aminotransfer ALT/SGPT 53 U/L (13-56); Albumin, Serum 4.4 g/dL (3.2-5.0); Alkaline Phosphatase 106 U/L (45-117); Anion Gap 3 (5-15); BUN 7 mg/dL (7-18); BUN/Creat Ratio 7.2 RATIO (10-20); Calcium,Total 9.4 mg/dL (8.5-10.1); Chloride 108 mmol/L (98-107); Creatinine, Serum 0.98 mg/dL (0.55-1.02); EST Glomerular Filtration Rate 71 mL/min (>60); Est Glom Filt Rate - Afr Amer 86 mL/min (>60); Globulin 3.9 g/dL (2.2-4.2); Glucose 107 mg/dL (74-106); Protein, Total 8.3 g/dL (6.4-8.2); Sodium Level 137 mmol/L (136-145)
== END ==
PROVIDERS: PCP Internal Medicine; Visit Provider Internal Medicine
DX: R53.81 Other malaise (principal); R53.83 Other fatigue
CPT/HCPCS: 36415; 80053; 85025

== ENCOUNTER → 2020-02-13 16:10 | Outpatient (CLI) | payer MEDICAID, SELFPAY ==
[2020-02-13 15:38] VITALS: BMI 24.4
--- NOTE | 2020-02-13 16:13 | RAD_ITS ---
STUDY: X-RAY - PELVIS AND LEFT HIP REASON FOR EXAM: Female, 29 years old. pain in left hip TECHNIQUE: 3 views of the pelvis and hip. COMPARISON: Previous study of 06/25/2016 FINDINGS: There is a non-specific bowel gas pattern. Normal visualized soft tissue structures. Normal bilateral iliac wings, sacroiliac joints and visualized sacrum. Normal bilateral superior and inferior pubic rami. Normal pubic symphysis. Normal bilateral ischial tuberosities. Normal visualized femoral head. Normal acetabulum. Normal hip joint. RAD/HIP, UNI W/ Pelvis 2-3 Views IMPRESSION: Normal x-ray examination of the pelvis and hip. Electronically Signed: Joe Ordaz MD at 18:19 EDT , Service support ,
--- NOTE | 2020-02-13 16:13 | EKG12_ITS ---
Test Reason : ARRYTHMIA Blood Pressure : / mmHG Vent. Rate : 065 BPM Atrial Rate : 065 BPM P-R Int : 136 ms QRS Dur : 070 ms QT Int : 408 ms P-R-T Axes : 041 062 062 degrees QTc Int : 424 ms Sinus rhythm with marked sinus arrhythmia Otherwise normal ECG Confirmed by SUMMER CUNHA, KIRSTEN ([id number]), editor & co founder LEXII DONOVAN ([id number]) on 02/18/2020 10:56:03 AM Referred By: VIOLETTE Confirmed By:LEONID WHEELER MD
--- NOTE | 2020-02-13 16:15 | RAD_ITS ---
STUDY: X-RAY - LUMBAR SPINE REASON FOR EXAM: Female, 29 years old. chronic back pain TECHNIQUE: 3 view(s) of the lumbar spine were obtained. COMPARISON: Previous study of 06/25/2016 FINDINGS: Normal lumbar lordosis. There is no substantial scoliosis. There is a normal alignment of the vertebrae. Normal vertebral bodies and endplates. Normal disc space heights. The soft tissue structures are unremarkable. RAD/Lumbar Spine 2 or 3 Views IMPRESSION: Normal x-ray examination of the lumbar spine. Electronically Signed: Joe Ordaz MD at 18:20 EDT , Service support ,
== END ==
PROVIDERS: PCP Internal Medicine; Visit Provider Nurse Practitioner Family
DX: M25.552 Pain in left hip (principal); G89.29 Other chronic pain; M54.5 Low back pain; I49.9 Cardiac arrhythmia, unspecified
CPT/HCPCS: 72100; 73502; 93005

== ENCOUNTER 2020-04-12 16:00 | Outpatient (RCR) | payer MEDICAID, SELFPAY ==
[2020-03-29 15:41] VITALS: BMI 24.4
--- NOTE | 2020-04-05 15:41 | HP.PTEVAL ---
Patient's Visit Information ELVER JONES is a 29 year old F referred to Physical Therapy by Dr. Sourav Wilkerson DO with a diagnosis of L piriformis syndrome. Date of Evaluation: 04/05/20 Physical Therapist: EFRA Sanchez - Visit Plan Frequency: 2x /Week Duration: 4 Weeks Plan: 2X/ week for 4 weeks for L piriformis stretches, HS stretches and press ups for Low back stiffness, foam rolling and modalities for pain control (US) and progressing to strengthening of the hip and core as able with HEP. HEP: seated and supine piriformis stretch and press ups - Subjective Pt hurts really bad today. Dr Alejandro said that she has sharp pain on the side of her leg and her butt and shoots to the back of her knee recently and up the L-spine all on the L side. She has been dealing with it for a few years but her boyfriend convinced her to go to PT. She had x-rays when she fell out of a tree years ago but she was ok. 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 She has some tingling some times. SHe notices some weakness at times in that leg. She notices that it will give out on her sometimes. Stairs hurt. walking hurts more than sitting - Pain L buttock pain Pain Intensity (Out of 10): 8 Pain Intensity Range: 9, 10 - Objective Gait: walks with L LE into ER at the hip, decreased stance time on the L. Pt is able to walk on heels and toes. Trunk AROM: Flex 100%, ext 75%, SB B 75%. Hip AROM: Full hip AROM. Pt has decreased trunk extension with press up. L piriformis is tight compared to the R. LE MMT: R hip abd 4/5 and L 4-/5, R hip ext 4/5 and L 4-/5, R hip flex 4+/5 and L 4-/5, B knee flex and ext 4+/5. Increase pain with L SLR. Increase tightness iwth L SLUMP test. Palpation: tender to L piriformis muscle belly.... pt really felt the 2 piriformis stretches as well as foam rolling in that same area manual by therapist. Prone press ups: 1 X 10... pt thought that the press ups helped the stiffness in her back but not that it touched the pain in her buttocks. - Goals Goal 1:: I HEP Goal Time Frame: 4-6 Weeks Goal 2:: Decrease back and L buttock pain to 2/10 with ADL's Goal Time Frame: 4-6 Weeks Goal 3:: Be able to walk with a normal gait pattern Goal Time Frame: 4-6 Weeks Goal 4:: Increase L hip strength by 1/2 muscle grade (at the time of eval: LE MMT: R hip abd 4/5 and L 4-/5, R hip ext 4/5 and L 4-/5, R hip flex 4+/5 and L 4-/5, B knee flex and ext 4+/5). Goal Time Frame: 4-6 Weeks - Rehabilitation Potential Rehabilitation Potential: Good - Anticipated Interventions Patient/Client Instruction: Educate patient on: Condition, Plan of Care For the Purpose of:: To decrease pain, To increase ROM, To improve nutrient delivery to tissue, To improve muscle performance and motor function, To improve ability to perform ADL's, To increase tolerance to activity/condition/position, To improve performance and independence with ADL's, To improve ability of physical actions for home/community/work/leisure, To improve gait and locomotor functions, To improve health of tissue, To decrease soft tissue restriction, To increase flexibility/ROM, To improve safety with gait Therapeutic Exercise to Include: Strength training, Balance training, Flexibilty training, Gait and locomotor training, Active ROM, Dynamic Lumbar Stabilization For the Purpose of:: To decrease pain, To decrease swelling/inflammation, To increase ROM, To improve nutrient delivery to tissue, To improve muscle performance and motor function, To improve ability to perform ADL's, To increase tolerance to activity/condition/position, To improve performance and independence with ADL's, To improve ability of physical actions for home/community/work/leisure, To improve gait and locomotor functions, To improve health of tissue, To decrease soft tissue restriction, To increase flexibility/ROM Manual Therapy Techniques to Include: Soft tissue mobilization For the Purpose of:: To improve nutrient delivery to tissue, To improve muscle performance and motor function, To decrease soft tissue restriction, To increase flexibility/ROM IF ES: Yes Cryotherapy (ice pack, ice massage): Yes Thermo therapy (hot pack): Yes Ultrasound (thermal/non thermal): Yes For the Purpose of:: To decrease pain, To decrease swelling/inflammation, To increase ROM, To improve nutrient delivery to tissue Thank you for the opportunity to evaluate your patient. For Medicare and Medicare HMO plans, please review the plan of care and approve it. It will need to be FAXED BACK to us at [phone] for Medicare purposes. For Medicare only, by signing this I certify the plan of care. Please let me know if there are questions or concerns regarding this plan of care. Physician Signature: Date:
--- NOTE | 2020-06-15 10:50 | HP.PT.NRP ---
ELVER JONES was seen in my office for initial evaluation on 04/05/20. The following Plan of Care was established for this patient: Initial Frequency: 2x /Week Initial Duration: 4 Weeks Patient/Client Instruction: Educate patient on: Condition, Plan of Care For the Purpose of:: To decrease pain, To increase ROM, To improve nutrient delivery to tissue, To improve muscle performance and motor function, To improve ability to perform ADL's, To increase tolerance to activity/condition/position, To improve performance and independence with ADL's, To improve ability of physical actions for home/community/work/leisure, To improve gait and locomotor functions, To improve health of tissue, To decrease soft tissue restriction, To increase flexibility/ROM, To improve safety with gait Therapeutic Exercise to Include: Strength training, Balance training, Flexibilty training, Gait and locomotor training, Active ROM, Dynamic Lumbar Stabilization For the Purpose of:: To decrease pain, To decrease swelling/inflammation, To increase ROM, To improve nutrient delivery to tissue, To improve muscle performance and motor function, To improve ability to perform ADL's, To increase tolerance to activity/condition/position, To improve performance and independence with ADL's, To improve ability of physical actions for home/community/work/leisure, To improve gait and locomotor functions, To improve health of tissue, To decrease soft tissue restriction, To increase flexibility/ROM Manual Therapy Techniques to Include: Soft tissue mobilization For the Purpose of:: To improve nutrient delivery to tissue, To improve muscle performance and motor function, To decrease soft tissue restriction, To increase flexibility/ROM IF ES: Yes Cryotherapy (ice pack, ice massage): Yes Thermo therapy (hot pack): Yes Ultrasound (thermal/non thermal): Yes For the Purpose of:: To decrease pain, To decrease swelling/inflammation, To increase ROM, To improve nutrient delivery to tissue This patient was last seen in our office 04/07/20. Pertinent comments regarding their Physical therapy will appear below: DC PT as pt either no showed or cancelled her last couple of appointments. At this point I will be discontinuing this patient from physical therapy. I would be happy to see this patient again in the future if found appropriate by the physician. Thank you! Norah Buckley, MPT
== END 2020-04-12 19:00 | disposition home or self-care (01) ==
LOC: PT 16:00
PROVIDERS: PCP Internal Medicine; Referring Provider Orthopaedic Surgery; Visit Provider Orthopaedic Surgery
DX: G57.02 Lesion of sciatic nerve, left lower limb (principal)
CPT/HCPCS: 97035; 97110; 97161

== ENCOUNTER → 2020-07-01 | Outpatient (CLI) | payer MEDICAID, SELFPAY ==
[2020-06-29 17:48] VITALS: BMI 22.5
== END | disposition home or self-care (01) ==
LOC: LABSPEC 10:39
PROVIDERS: PCP Internal Medicine; Referring Provider Nurse Practitioner Family; Visit Provider Nurse Practitioner Family
DX: R09.89 Other specified symptoms and signs involving the circulatory and respiratory systems (principal)
CPT/HCPCS: 87635; U0005; U0003

== ENCOUNTER → 2020-10-14 19:12 | Outpatient (CLI) | payer MEDICAID, SELFPAY ==
[2020-10-13 12:51] VITALS: BMI 24.4
== END ==
PROVIDERS: PCP Internal Medicine; Visit Provider Internal Medicine
DX: J06.9 Acute upper respiratory infection, unspecified (principal)
CPT/HCPCS: 87635; U0005; U0003

== ENCOUNTER 2020-11-05 17:22 | Emergency (ER) | payer MEDICAID, SELFPAY ==
[2020-10-13 12:51] VITALS: BMI 24.4
[2020-11-05 17:23] VITALS: BP 131/90; PULSE 94; RESP 18; TEMP 36.6; O2SAT 98; BMI 23.6
--- NOTE | 2020-11-05 17:36 | RAD_ITS ---
INDICATION: back pain -- with radiation to legs EXAMINATION/TECHNIQUE: X-RAY - XR Spine Lumbar 2 or 3 Views COMPARISON: None. FINDINGS: VERTEBRAE: Preserved vertebral body height. No fracture. No spondylolisthesis. Preservation of the normal lumbar lordosis. Minimal multilevel facet arthropathy. DISCS: Disc spaces are maintained. INCLUDED ABDOMEN: Included bowel gas pattern is non-obstructive. Moderate amount retained stool in colon. RAD/Lumbar Spine 2 or 3 Views IMPRESSION: No acute abnormalities. Moderate amount retained stool in colon. Electronically Signed: Benjamin Mcmillan MD at 17:51 EDT Tel , Service support ,
--- NOTE | 2020-11-05 19:19 | ED.VIS.BACK ---
HPI History of Present Illness Chief Complaint: Back Informant: patient Onset/Context/Timing Onset: Weeks Narrative Narrative: Nontraumatic left lower back pain for the past 2 weeks. Pain rating down to her left foot. History of similar in the past. 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 Denies any direct injuries. Denies any loss of bowel or bladder control. Using Advil with no relief, none taken today. Denies history of gastric ulcers or kidney injury. States naproxen causes stomach distress tolerated ibuprofen in the past. Has seen her PCP has done physical therapy however has not finished a course of physical therapy. Prior similar symptoms: Yes [facility] Medical History Alcohol abuse Anxiety and depression Asthma Back problem Bipolar 1 disorder Bone fracture Chronic bronchitis Chronic headaches Drug abuse GERD (gastroesophageal reflux disease) Hearing loss in left ear Hx of emotional problems Pneumonia PTSD (post-traumatic stress disorder) Seasonal allergies URI (upper respiratory infection) Vision problem Home Medications sumatriptan succinate See Rx Instructions PO .COMPLEX 08/21/19 [History Last Taken Unknown] blood pressure monitor #1 ea 10/29/19 [Rx Last Taken Unknown] loratadine 10 mg capsule 10 mg PO DAILY #90 cap 02/17/20 [Rx Last Taken Unknown] bupropion HCl 150 mg 24 hr tablet, extended release 150 mg PO QAM 03/25/20 [History Last Taken Unknown] cariprazine 1.5 mg capsule 3 mg PO DAILY cap 03/25/20 [History Last Taken Unknown] lamotrigine 25 mg tablet 25 mg PO DAILY tab 03/25/20 [History Last Taken Unknown] trazodone 50 mg tablet 50 mg PO QHS PRN 03/25/20 [History Last Taken Unknown] budesonide-formoterol HFA 160 mcg-4.5 mcg/actuation aerosol inhaler 2 puff INHALATION BID #10.2 g 06/24/20 [Rx Last Taken Unknown] ondansetron HCl 4 mg tablet 4 mg PO Q8H PRN #60 tab 10/13/20 [Rx Last Taken Unknown] albuterol sulfate 90 mcg/actuation aerosol inhaler 1 - 2 puff INHALATION Q6H PRN #8.5 g 11/05/20 [Rx Last Taken Unknown] cyclobenzaprine 10 mg PO Q12H PRN #12 tab 11/05/20 [Rx Last Taken Unknown] ibuprofen 600 mg PO 4X/DAY PRN #20 tab 11/05/20 [Rx Last Taken Unknown] omeprazole 40 mg capsule,delayed release 40 mg PO BID #60 cap 11/05/20 [Rx Last Taken Unknown] oxcarbazepine 300 mg PO BID 11/05/20 [History Last Taken Unknown] valacyclovir 500 mg PO DAILY 11/05/20 [History Last Taken Unknown] Allergy/AdvReac Type Severity Reaction Status Date / Time zinc oxide Allergy Unknown Unknown Verified 11/05/20 17:23 naproxen [From Naprosyn] AdvReac Nausea Verified 11/05/20 17:23 otc skin products AdvReac Intermediate Unknown Uncoded 11/05/20 17:23 Family History Unknown Alcoholism Anxiety Asthma Depression Myocardial infarction Suicide attempt Other Cancer Surgical History History of laparoscopic appendectomy History of oral surgery Social History Smoking Status: Current every day smoker tobacco type: cigarettes alcohol intake: former year quit: 2014 substance use type: 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, methamphetamine and other what type of physical activity do you participate in: yoga and weight training frequency: 3-4 times per week ROS ROS ED Constitutional Constitutional ED: Denies chills, fever(s) or sweats Eyes Eyes: Denies change in vision ENT ENT ED: Denies dysphagia or sore throat Cardiovascular Cardiovascular: Denies chest pain, leg edema, palpitations or racing heartbeat Respiratory/Chest Respiratory/Chest: Denies cough, dyspnea or dyspnea on exertion Gastrointestinal Gastrointestinal: Denies abdominal pain, diarrhea, nausea or vomiting Genitourinary Genitourinary ED: Denies dysuria, hematuria or urinary frequency Musculoskeletal Musculoskeletal: Reports back pain; Denies extremity pain or neck pain Integumentary Denies rash or wounds Neurologic Neurologic: Denies headache(s), paresthesias or weakness EXAM Physical Exam Const Vital Signs: 11/05/20 17:23 Temperature 97.8 F Temperature Source Temporal Pulse Rate 94 Respiratory Rate 18 Blood Pressure 131/90 H Blood Pressure Mean 103 Pulse Ox 98 Oxygen Delivery Method Room Air Positive well nourished and well developed General Appearance ED: well developed and NAD HEENT Reports moist mucous membranes normocephalic and atraumatic Eyes PERRL, EOMs intact bilaterally and conjunctivae normal General Eye ED: Yes normal appearance of both eyes Neck no lymphadenopathy and supple General: Negative for tenderness Chest Wall Chest: Negative for tenderness Resp normal respiratory effort and normal air movement Effort and Inspection: symmetric chest movement; Negative for respiratory distress Cardio regular rate, regular rhythm and no murmurs Peripheral Pulses: pulses 2+ throughout GI normal to inspection, nondistended, normoactive bowel sounds and non-tender Palpation: Negative for guarding or rebound tenderness present Back/Spine no CVA tenderness Back/Spine Narrative: No midline tenderness, tender palpation left paralumbar, straight leg test negative bilaterally. 2+ patellar reflex bilaterally. Extremity normal to inspection General Extremety ED: Negative for edema or tenderness General Extremity: Negative for edema Neuro oriented x3 and no sensory deficits noted Sensorium / Orientation: awake and alert Skin no rashes or lesions noted and no wounds MDM MDM MDM Narrative Medical decision making narrative: Lumbar films 3 view obtained from triage reviewed by myself and read by radiology negative for any acute process. There is retained stools. With sciatica symptoms. No cauda equina symptoms. Will placed on continued NSAIDs with muscle relaxers. Patient will follow up with PCP. All questions answered. Radiography Diagnostic Testing: Radiology Impression Lumbar Spine X-Ray 11/05/20 17:36 IMPRESSION: No acute abnormalities. Moderate amount retained stool in colon. Electronically Signed: Benjamin Mcmillan MD at 17:51 EDT Tel , Service support , Discharge Plan Triage Chief Complaint: Back ED Provider: Jesus Mahoney Dx/Rx/DC Orders Clinical Impression: Left sided sciatica Instructions: ED Sciatica Prescriptions: New ibuprofen 600 mg tablet 600 mg PO 4X/DAY PRN (Reason: Pain Or Fever) Qty: 20 RF: 0 cyclobenzaprine 10 mg tablet 10 mg PO Q12H PRN (Reason: muscle spasm) Qty: 12 RF: 0 No Action loratadine 10 mg capsule 10 mg PO DAILY Qty: 90 RF: 2 cariprazine 1.5 mg capsule 3 mg PO DAILY RF: 0 lamotrigine [Lamictal] 25 mg tablet 25 mg PO DAILY RF: 0 trazodone 50 mg tablet 50 mg PO QHS PRN (Reason: Sleep) RF: 0 bupropion HCl [Wellbutrin XL] 150 mg tablet extended release 24 hr 150 mg PO QAM RF: 0 ondansetron HCl [Zofran] 4 mg tablet 4 mg PO Q8H PRN (Reason: nausea and vomiting) Qty: 60 RF: 0 sumatriptan succinate 25 MG tablet See Rx Instructions PO .COMPLEX RF: 0 oxcarbazepine 300 mg tablet 300 mg PO BID RF: 0 valacyclovir 500 mg tablet 500 mg PO DAILY RF: 0 (DME) blood pressure monitor Kit See Rx Instructions .ROUTE .MEDSUPPLY Qty: 1 RF: 0 Symbicort 160-4.5 mcg/actuation HFA aerosol inhaler 2 puff INHALATION BID Qty: 10.2 RF: 3 omeprazole 40 mg capsule,delayed release(DR/EC) 40 mg PO BID Qty: 60 RF: 0 albuterol sulfate [ProAir HFA] 90 mcg/actuation HFA aerosol inhaler 1 - 2 puff inhalation Q6H PRN (Reason: shortness of breath or wheezing) Qty: 8.5 RF: 1 Primary Care Provider: Navi Kemp Referrals: Navi Kemp MD [Primary Care Provider] - 1 Week Disposition Disposition: Home, Self Care
[2020-11-05] MEDS: Ibuprofen 600 MG Tablet PO (19:23)
[2020-11-05] MEDS: cycloBENZAPRine HCl 10 MG Tablet PO (19:23)
== END 2020-11-05 19:30 | disposition home or self-care (01) ==
PROVIDERS: Emergency Provider Emergency Medicine; PCP Internal Medicine
DX: M54.42 Lumbago with sciatica, left side (principal); F17.210 Nicotine dependence, cigarettes, uncomplicated; J45.909 Unspecified asthma, uncomplicated; K21.9 Gastro-esophageal reflux disease without esophagitis; Z79.899 Other long term (current) drug therapy
CPT/HCPCS: 72100; 99283

== ENCOUNTER → 2021-02-23 17:45 | Outpatient (CLI) | payer MEDICAID, SELFPAY ==
--- NOTE | 2021-02-23 17:46 | MRI_ITS ---
STUDY: MRI LEFT HIP REASON FOR EXAM: Female, 30 years old. LEFT HIP PAIN, NKI TECHNIQUE: Standardized fat and water weighted pulse sequences were obtained in all 3 orthogonal planes. The pelvis is included on several sequences. COMPARISON: Pelvic x-ray dated February 13, 2020 FINDINGS: Normal hip joint without articular joint space narrowing. Normal acetabulum. Normal labrum. Normal femoral head. Normal femoral neck and intratrochanteric region. No marrow edema or avascular necrosis or osteochondral defect is seen. No hip joint effusions are present. Normal gluteus minimus, medius and iliopsoas tendons and distal insertions. There is no trochanteric, iliopsoas or iliopectineal bursitis. Normal superior and inferior pubic rami. Normal pubic symphysis. Normal ischial tuberosity. Normal origin of the hamstring tendons. Normal visualized iliac wing, sacroiliac joint, and sacral ala. Normal visualized soft tissue structures of the pelvis. Small left ovarian follicular cyst noted measuring 2.9 cm which is of no clinical significance. The right hip joint is normal. MRI/Lower Ext Joint Only (Routine) IMPRESSION: Normal MRI of the hip. Electronically Signed: Miller Degroot MD at 17:41 EDT , Service support ,
== END ==
PROVIDERS: PCP Internal Medicine; Referring Provider Orthopaedic Surgery; Visit Provider Orthopaedic Surgery
DX: M25.552 Pain in left hip (principal); M54.50 Low back pain, unspecified; G89.29 Other chronic pain; M54.32 Sciatica, left side
CPT/HCPCS: 73721

== ENCOUNTER → 2021-03-30 10:34 | Outpatient (CLI) | payer MEDICAID, SELFPAY ==
--- NOTE | 2021-03-30 10:45 | RAD_ITS ---
INDICATION: Neck Pain EXAMINATION/TECHNIQUE: X-RAY - XR Spine Cervical 2 or 3 Views COMPARISON: None. FINDINGS: VERTEBRAE: Preserved vertebral body height. No fracture. No spondylolisthesis. Straightening of the normal cervical curvature. No significant facet arthropathy. DISCS: Disc spaces are maintained. NECK SOFT TISSUES: No prevertebral soft tissue widening. LUNG APICES: Clear. RAD/Cerv Spine 2 or 3 Views IMPRESSION: Straightening of the normal cervical curvature can be seen with acute muscle spasm. Otherwise no acute findings. Electronically Signed: Jamil Maddox MD at 14:18 EST Tel , Service support ,
== END ==
PROVIDERS: PCP Internal Medicine; Referring Provider Internal Medicine; Visit Provider Internal Medicine
DX: M54.2 Cervicalgia (principal); G89.29 Other chronic pain
CPT/HCPCS: 72040

== ENCOUNTER → 2021-04-02 08:41 | Outpatient (CLI) | payer MEDICAID, SELFPAY ==
--- NOTE | 2021-04-02 08:41 | MRI_ITS ---
HISTORY: low back pain, left leg pain. TECHNIQUE: Multiplanar and multisequence MR images of the lumbar spine. IV Contrast dosage and agent: None. # of images incl. paperwork: 120. COMPARISON: XR 11-05-20. FINDINGS: VERTEBRAE: Vertebral body heights maintained. Minimal degenerative endplate changes at L1-2. ALIGNMENT: No significant anterior or posterior subluxation. CONUS: Normal morphology and position at L1-2. SOFT TISSUES: No paraspinal fluid collections. INTERVERTEBRAL DISCS: Intervertebral disc signal within normal limits. Minimal disc bulge with facet arthropathy at L4-5 resulting in minimal narrowing of the thecal sac and bilateral foramina. No significant posterior disc herniation, central canal stenosis, or foraminal narrowing at the other levels. MRI/Spine Lumbar (Routine) IMPRESSION: Minimal disc bulge at L4-5 without significant spinal canal stenosis or foraminal narrowing.. at 1632 Reported and signed by: Teresa Vera MD Electronically Signed: Teresa Vera MD at 16:31 EST Tel , Service support ,
== END ==
PROVIDERS: PCP Internal Medicine; Referring Provider Orthopaedic Surgery; Visit Provider Orthopaedic Surgery
DX: M54.42 Lumbago with sciatica, left side (principal); G89.29 Other chronic pain
CPT/HCPCS: 72148

== ENCOUNTER 2021-05-04 18:00 | Outpatient (RCR) | payer MEDICAID, SELFPAY ==
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
--- NOTE | 2021-04-21 18:21 | HP.PTEVAL2_ITS ---
Patient's Visit Information ELVER JONES is a 30 year old F referred to Physical Therapy by Dr. Navi Kepm MD with a diagnosis of LUMAGO,SCIATICA. Date of Evaluation: 04/21/21 Physical Therapist: Shaheen Araujo, PT, Cert MDT, OCS - Visit Plan Frequency: 2x /Week Duration: 4 Weeks Plan: PT INTERVETIONS DLS ,POSTURAL EX'S ,LE FLEXABILITY,GRADED LUMBAR AND MODALTIES FOR PAIN RELEIVE - Subjective Subjective: This 30 y/o female presents to physical therapy lumbago sciatica. Patient has lumbar pain with radicular symptoms in back and left to calf. Seen DR Vickers recommended . Patient had MRI showed bulging disc. Patient also had x-rays. Aggravating factors standing ,standing, sitting, walking, bending and lifting. Alleviating factors heat. occasional tingling left leg. Coughing/sneezing -. Bowel/bladder -. Patient able to sleep but needs sleep aide . Patient pain affects job demands and housework tasks. Patient stress increases symptoms. Patient has had no prior PT. Patient pain affects QOL . CORMBITIES: depression, anxiety, PTSD, bipolar. 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 GAIT: reciprocal pattern. NEURO: denies paresthesia/tingling ,reflexes L3-4,L4-5,L5-S1 2/3. SYMMTRIES: align. PALPATION: tender L-S. LUMBAR ROM: flexion mod loss ,extension mod loss, side glides mild loss. MMT: quads/hams 4-/5,hip flexion 4-/5 ankle 4/5. FLEXABLITY: hamstrings mild/mod tight - Special Tests Slump test left side: Negative Slump test right side: Negative Left Straight Leg Raise: Negative Right Straight Leg Raise: Negative Flexion - Mechanical Response: No effect Flexion - Symptoms During Testing: Increases Flexion - Symptoms After Testing: No worse Extension - Mechanical Response: No effect Extension - Symptoms During Testing: Increases Extension - Symptoms After Testing: No worse Right Side Glides - Mechanical Response: No effect Right Side [place] - Symptoms During Testing: No effect Right Side [place] - Symptoms After Testing: No effect Left Side [place] - Mechanical Response: No effect Left Side [place] - Symptoms During Testing: No effect Left Side [place] - Symptoms After Testing: No effect Flexion - Symptoms During Testing: No effect Flexion - Symptoms After Testing: No effect Extension - Mechanical Response: No effect Extension - Symptoms During Testing: Increases Extension - Symptoms After Testing: No worse - Goals Goal 1:: Patient to be I with HEP to manage pain Goal Time Frame: 4-6 Weeks Goal 2:: Patient to improve posture/body to manage back and leg symptoms Goal Time Frame: 4-6 Weeks Goal 3:: Patient to improve lumbar ROM for function of recovery Goal Time Frame: 4-6 Weeks Goal 4:: Patient to demonstrate 50% improvement to decrease pain Goal Time Frame: 4-6 Weeks Goal 5:: Patient to improve back owestry score by 5 points to improve QOL. Goal Time Frame: 4-6 Weeks - Rehabilitation Potential Physical Therapy Diagnosis: This patient has lumbar pain with sciatic left leg with pain affected by position, test movement along with decrease lumbar ROM ,weakness LE and decrease posture thus will need skilled PT to address these impairments. Rehabilitation Potential: Good - Anticipated Interventions Patient/Client Instruction: Educate patient on: Condition, Plan of Care For the Purpose of:: To decrease pain, To increase ROM, To improve muscle performance and motor function, To improve ability to perform ADL's, To improve performance and independence with ADL's, To improve ability of physical actions for home/community/work/leisure, To improve health of tissue, To decrease soft tissue restriction, To increase flexibility/ROM, To prevent re-injury Therapeutic Exercise to Include: Strength training, Postural training, Flexibilty training, Dynamic Lumbar Stabilization For the Purpose of:: To decrease pain, To increase ROM, To improve nutrient delivery to tissue, To improve muscle performance and motor function, To improve ability to perform ADL's, To increase tolerance to activity/condition/position, To improve health of tissue, To decrease soft tissue restriction, To increase flexibility/ROM, To prevent re-injury TENS: Yes IF ES: Yes Cryotherapy (ice pack, ice massage): Yes Thermo therapy (hot pack): Yes Ultrasound (thermal/non thermal): Yes For the Purpose of:: To decrease pain, To increase ROM, To improve nutrient delivery to tissue, To increase oxygenation perfusion, To improve health of tissue, To decrease soft tissue restriction Thank you for the opportunity to evaluate your patient. For Medicare and Medicare O plans, please review the plan of care and approve it. It will need to be FAXED BACK to us at [phone] for Medicare purposes. For Medicare only, by signing this I certify the plan of care. Please let me know if there are questions or concerns regarding this plan of care. Physician Signature: Date:
--- NOTE | 2021-06-29 09:15 | HP.PT.NRP ---
ELVER JONES was seen in my office for initial evaluation on 04/11/21. The following Plan of Care was established for this patient: Initial Frequency: 1x/Week Initial Duration: 4 Weeks Patient/Client Instruction: Educate patient on: Condition, Plan of Care For the Purpose of:: To decrease pain, To increase ROM, To improve muscle performance and motor function, To improve ability to perform ADL's, To increase tolerance to activity/condition/position, To improve ability of physical actions for home/community/work/leisure, To improve health of tissue, To decrease soft tissue restriction, To increase flexibility/ROM, To prevent re-injury Therapeutic Exercise to Include: Strength training, Postural training, Flexibilty training, Active ROM For the Purpose of:: To decrease pain, To increase ROM, To improve muscle performance and motor function, To improve ability to perform ADL's, To increase tolerance to activity/condition/position, To improve performance and independence with ADL's, To improve ability of physical actions for home/community/work/leisure, To improve health of tissue, To decrease soft tissue restriction, To increase flexibility/ROM, To prevent re-injury TENS: Yes IF ES: Yes Cryotherapy (ice pack, ice massage): Yes Thermo therapy (hot pack): Yes Ultrasound (thermal/non thermal): Yes For the Purpose of:: To decrease pain, To increase ROM, To improve nutrient delivery to tissue, To increase oxygenation perfusion, To improve health of tissue This patient was last seen in our office . Pertinent comments regarding their Physical therapy will appear below: Patient seen for PT for intial evaluation for cervical pain thus d/c At this point I will be discontinuing this patient from physical therapy. I would be happy to see this patient again in the future if found appropriate by the physician. Thank you! Shahene Araujo, PT, Cert MDT, OCS Balance/Gait/Functional tests - Balance/Special Test Scores Oswestry Low Back Score: 26 Oswestry Neck Score: 23
--- NOTE | 2021-06-29 09:16 | HP.PTNR(2)_ITS ---
ELVER JONES was seen in my office for initial evaluation on 04/21/21. The following Plan of Care was established for this patient: Initial Frequency: 2x /Week Initial Duration: 4 Weeks Plan from Re-Evaluation: PT INTERVETIONS DLS ,POSTURAL EX'S ,LE FLEXABILITY,GRADED LUMBAR AND MODALTIES FOR PAIN RELEIVE Patient/Client Instruction: Educate patient on: Condition, Plan of Care For the Purpose of:: To decrease pain, To increase ROM, To improve muscle p erformance and motor function, To improve ability to perform ADL's, To improve performance and independence with ADL's, To improve ability of physical actions for home/community/work/leisure, To improve health of tissue, To decrease soft tissue restriction, To increase flexibility/ROM, To prevent re-injury Therapeutic Exercise to Include: Strength training, Postural training, Flexibilty training, Dynamic Lumbar Stabilization For the Purpose of:: To decrease pain, To increase ROM, To improve nutrient delivery to tissue, To improve muscle performance and motor function, To improve ability to perform ADL's, To increase tolerance to activity/condition/position, To improve health of tissue, To decrease soft tissue restriction, To increase flexibility/ROM, To prevent re-injury TENS: Yes IF ES: Yes Cryotherapy (ice pack, ice massage): Yes Thermo therapy (hot pack): Yes Ultrasound (thermal/non thermal): Yes For the Purpose of:: To decrease pain, To increase ROM, To improve nutrient delivery to tissue, To increase oxygenation perfusion, To improve health of tissue, To decrease soft tissue restriction This patient was last seen in our office . Pertinent comments regarding their Physical therapy will appear below: Patient was seen for intial PT for back pain/sciatica At this point I will be discontinuing this patient from physical therapy. I would be happy to see this patient again in the future if found appropriate by the physician. Thank you! Shaheen Araujo, PT, Cert MDT, OCS
== END 2021-05-04 19:00 | disposition home or self-care (01) ==
LOC: PT 18:00
PROVIDERS: PCP Internal Medicine; Referring Provider Internal Medicine; Visit Provider Internal Medicine
DX: M54.2 Cervicalgia (principal); G89.29 Other chronic pain
CPT/HCPCS: 97035; 97110; 97140; 97162

== ENCOUNTER 2021-05-30 13:24 | Emergency (ER) | payer MEDICAID, SELFPAY ==
[2021-05-30 13:27] VITALS: BP 154/70; PULSE 106; RESP 16; TEMP 37.7; O2SAT 95; BMI 26.6
[2021-05-30 13:29] VITALS: BP 154/70; PULSE 106; RESP 16; TEMP 37.7; O2SAT 95
--- NOTE | 2021-05-30 14:21 | EX.ED.DYSGE1 ---
HPI History of Present Illness Chief Complaint: Cough Informant: patient Narrative Narrative: 30-year-old female presents to the emergency room with a 24-hour history of vomiting and diarrhea. She notes a chronic cough from smoking. She notes that she has a temperature of 100 degrees of triage. She states she generally feels poorly. [facility] Medical History Alcohol abuse Anxiety and depression Asthma Back problem Bee sting Bipolar 1 disorder Bone fracture Chronic bronchitis Chronic headaches Chronic low back pain Chronic neck pain Drug abuse GERD (gastroesophageal reflux disease) Hearing loss in left ear Hx of emotional problems Pneumonia PTSD (post-traumatic stress disorder) Right elbow pain Seasonal allergies URI (upper respiratory infection) Vision problem Home Medications sumatriptan succinate See Rx Instructions PO .COMPLEX 08/21/19 [History Last Taken Unknown] blood pressure monitor #1 ea 10/29/19 [Rx Last Taken Unknown] loratadine 10 mg capsule 10 mg PO DAILY #90 cap 02/17/20 [Rx Last Taken Unknown] bupropion HCl 150 mg 24 hr tablet, extended release 150 mg PO QAM 03/25/20 [History Last Taken Unknown] cariprazine 1.5 mg capsule 3 mg PO DAILY cap 03/25/20 [History Last Taken Unknown] lamotrigine 25 mg tablet 25 mg PO DAILY tab 03/25/20 [History Last Taken Unknown] trazodone 50 mg tablet 50 mg PO QHS PRN 03/25/20 [History Last Taken Unknown] ondansetron HCl 4 mg tablet 4 mg PO Q8H PRN #60 tab 10/13/20 [Rx Last Taken Unknown] albuterol sulfate 90 mcg/actuation aerosol inhaler 1 - 2 puff INHALATION Q6H PRN #8.5 g 11/05/20 [Rx Last Taken Unknown] omeprazole 40 mg capsule,delayed release 40 mg PO BID #60 cap 11/05/20 [Rx Last Taken Unknown] valacyclovir 500 mg PO DAILY 11/05/20 [History Last Taken Unknown] budesonide-formoterol HFA 160 mcg-4.5 mcg/actuation aerosol inhaler 2 puff INHALATION BID #10.2 g 12/16/20 [Rx Last Taken Unknown] baclofen 10 mg tablet 10 mg PO BID PRN #60 tab 03/30/21 [Rx Last Taken Unknown] gabapentin 300 mg capsule 300 mg PO Q8H #90 cap 04/06/21 [Rx Last Taken Unknown] nabumetone 750 mg tablet 750 mg PO BID PRN #30 tab 05/02/21 [Rx Last Taken Unknown] ondansetron 4 mg PO Q6H PRN PRN #20 tab 05/30/21 [Rx Last Taken Unknown] Allergy/AdvReac Type Severity Reaction Status Date / Time zinc oxide Allergy Unknown Unknown Verified 05/30/21 13:27 naproxen [From Naprosyn] AdvReac Nausea Verified 05/30/21 13:27 otc skin products AdvReac Intermediate Unknown Uncoded 05/30/21 13:27 Family History Unknown Alcoholism Anxiety Asthma Depression Myocardial infarction Suicide attempt Other Cancer Surgical History History of laparoscopic appendectomy History of oral surgery Social History Smoking Status: Current every day smoker tobacco type: cigarettes alcohol intake: former year quit: 2014 substance use type: 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, methamphetamine and other what type of physical activity do you participate in: yoga and weight training frequency: 3-4 times per week ROS ROS ED Constitutional Constitutional ED: Reports fever(s); Denies chills or weight loss Eyes Eyes: Denies change in vision or diplopia ENT ENT ED: Denies ear pain, rhinorrhea or sore throat Cardiovascular Cardiovascular: Denies chest pain, orthopnea, palpitations or racing heartbeat Respiratory/Chest Respiratory/Chest: Reports cough; Denies dyspnea or orthopnea Gastrointestinal Gastrointestinal: Reports diarrhea, nausea and vomiting; Denies abdominal pain Genitourinary Genitourinary ED: Denies dysuria, hematuria or urinary frequency Musculoskeletal Musculoskeletal: Reports myalgias; Denies arthralgias Integumentary Denies abscess or rash Neurologic Neurologic: Denies headache(s) or weakness Psychiatric Psychiatric: Denies anxiety, depression, suicidal ideation or suicidal thoughts Endocrine Endocrinology: Denies polydipsia, polyphagia or polyuria Allergic/Immunologic Allergic/Immunologic ED: Denies mouth swelling, tongue swelling or urticaria EXAM Physical Exam Const Vital Signs: 05/30/21 13:27 05/30/21 13:29 05/30/21 13:41 Temperature 100 F H 100 F H Temperature Source Temporal Temporal Pulse Rate 106 H 106 H Respiratory Rate 16 16 Respiratory Effort Non-Labored Blood Pressure 154/70 H 154/70 H Blood Pressure Mean 98 98 Pulse Ox 95 95 Oxygen Delivery Method Room Air Room Air Positive well nourished and well developed General Appearance ED: well developed HEENT Reports normocephalic, head/scalp atraumatic, TM's clear and moist mucous membranes Negative for trauma Tympanic Membrane ED: Yes TM's clear Eyes PERRL and EOMs intact bilaterally Neck no lymphadenopathy, supple and no JVD Resp normal respiratory effort and clear to auscultation bilaterally Cardio regular rate, regular rhythm and no murmurs GI normal to inspection, nondistended, normoactive bowel sounds and non-tender Palpation: soft Back/Spine no CVA tenderness and normal ROM Extremity normal to inspection General Extremety ED: Negative for edema General Extremity: Negative for edema Neuro oriented x3 and CN's II-XII intact bilaterally Sensorium / Orientation: alert Motor Exam: strength 5/5 throughout Psych mental status grossly normal Mood & Affect: Negative for depressed or tearful Skin no rashes or lesions noted and no wounds MDM MDM MDM Narrative Medical decision making narrative: Rapid Covid was negative but the patient was advised that with the current omicron variant it has caused some people to test positive later in the disease course. The patient received Tylenol for fever as well as Zofran and Imodium. Patient will be discharged home return if worsening or concerns Discharge Plan Triage Chief Complaint: Cough Other Complaint: Fever Nausea/Vomiting/Diarrhea ED Provider: Michael Shah Dx/Rx/DC Orders Clinical Impression: Gastroenteritis Instructions: ED Gastroenteritis, Viral (Adult) Prescriptions: New ondansetron [ondansetron] 4 MG tablet 4 mg PO Q6H PRN PRN (Reason: Nausea) Qty: 20 RF: 0 No Action loratadine 10 mg capsule 10 mg PO DAILY Qty: 90 RF: 2 cariprazine 1.5 mg capsule 3 mg PO DAILY RF: 0 lamotrigine [Lamictal] 25 mg tablet 25 mg PO DAILY RF: 0 trazodone 50 mg tablet 50 mg PO QHS PRN (Reason: Sleep) RF: 0 bupropion HCl [Wellbutrin XL] 150 mg tablet extended release 24 hr 150 mg PO QAM RF: 0 ondansetron HCl [Zofran] 4 mg tablet 4 mg PO Q8H PRN (Reason: nausea and vomiting) Qty: 60 RF: 0 sumatriptan succinate 25 MG tablet See Rx Instructions PO .COMPLEX RF: 0 valacyclovir 500 mg tablet 500 mg PO DAILY RF: 0 (DME) blood pressure monitor Kit See Rx Instructions .ROUTE .MEDSUPPLY Qty: 1 RF: 0 omeprazole 40 mg capsule,delayed release(DR/EC) 40 mg PO BID Qty: 60 RF: 0 albuterol sulfate [ProAir HFA] 90 mcg/actuation HFA aerosol inhaler 1 - 2 puff inhalation Q6H PRN (Reason: shortness of breath or wheezing) Qty: 8.5 RF: 1 Symbicort 160-4.5 mcg/actuation HFA aerosol inhaler 2 puff INHALATION BID Qty: 10.2 RF: 3 baclofen 10 mg tablet 10 mg PO BID PRN (Reason: muscle spasm) Qty: 60 RF: 1 gabapentin 300 mg capsule 300 mg PO Q8H Qty: 90 RF: 1 nabumetone 750 mg tablet 750 mg PO BID PRN (Reason: pain (scale score 4-6)) Qty: 30 RF: 1 Primary Care Provider: Navi Kemp Referrals: Navi Kemp MD [Primary Care Provider] - As Needed Disposition Disposition: Home, Self Care
[2021-05-30] MEDS: Ondansetron ODT 4 MG Tablet PO (14:54)
[2021-05-30] MEDS: Loperamide 2 MG Capsule 4 MG PO (14:54)
== END 2021-05-30 15:12 | disposition home or self-care (01) ==
PROVIDERS: Emergency Provider Emergency Medicine; PCP Internal Medicine; Visit Provider Emergency Medicine
DX: K52.9 Noninfective gastroenteritis and colitis, unspecified (principal); F31.9 Bipolar disorder, unspecified; F17.210 Nicotine dependence, cigarettes, uncomplicated; K21.9 Gastro-esophageal reflux disease without esophagitis; Z79.899 Other long term (current) drug therapy
CPT/HCPCS: 87426; 99283

== ENCOUNTER 2021-07-15 15:40 | Emergency (ER) | payer MEDICAID, SELFPAY ==
[2021-07-15 15:40] VITALS: BP 126/62; PULSE 102; RESP 16; TEMP 36; O2SAT 99
[2021-07-15 15:41] VITALS: BP 126/62; PULSE 103; RESP 16; TEMP 36; O2SAT 98; BMI 27.1
--- NOTE | 2021-07-15 17:17 | EDS_ITS ---
HPI History of Present Illness Chief Complaint: Lower Extremity Injury Informant: patient Onset/Context/Timing Onset: Today Context: Onset with activity (Patient jumped over a fence today and landed on her left hip) Injury: fall Timing: Continuous Quality: Aching and Burning Location: Lumbar, Buttock and Left Leg (Left posterior thigh) Worsened by: improves with Nothing Relieved by: Nothing Associated Symptoms Associated Symptoms: Radiation to Left Leg; Negative for Numbness, Tingling, Radiation to Right Leg, Fever, Abdominal Pain, Dysuria, Unable to Ambulate, Unable to Transfer, Urinary Retention, Urinary Incontinence, Constipation and Fecal Incontinence Narrative Narrative: Patient presents with a flareup of her sciatica pain that began to day. Patient states she was helping somebody do yard work today. Patient states she attempted to jump over a fence and when she did she fell and landed on her left gluteal area. Patient states her pain is similar to prior sciatica pain. Patient states it starts in the left lower lumbar area and radiates to her left posterior thigh. Patient denies any pain radiating into her abdomen. Patient denies any incontinence of bladder or bowels. Patient denies any saddle anesthesia. Patient denies any paresthesias or weakness. Patient states nothing makes her pain better or worse. [facility] Medical History Alcohol abuse Anxiety and depression Asthma Back problem Bee sting Bipolar 1 disorder Bone fracture Chronic bronchitis Chronic headaches Chronic low back pain Chronic neck pain Drug abuse GERD (gastroesophageal reflux disease) Hearing loss in left ear Hx of emotional problems Lumbar radiculopathy Pneumonia PTSD (post-traumatic stress disorder) Right elbow pain Seasonal allergies URI (upper respiratory infection) Vision problem Home Medications blood pressure monitor #1 ea 10/29/19 [Rx Last Taken Unknown] loratadine 10 mg capsule 10 mg PO DAILY #90 cap 02/17/20 [Rx Last Taken Unknown] bupropion HCl 150 mg 24 hr tablet, extended release 150 mg PO QAM 03/25/20 [History Last Taken Unknown] cariprazine 1.5 mg capsule 3 mg PO DAILY cap 03/25/20 [History Last Taken Unknown] lamotrigine 25 mg tablet 25 mg PO DAILY tab 03/25/20 [History Last Taken Unknown] trazodone 50 mg tablet 50 mg PO QHS PRN 03/25/20 [History Last Taken Unknown] ondansetron HCl 4 mg tablet 4 mg PO Q8H PRN #60 tab 10/13/20 [Rx Last Taken Unknown] omeprazole 40 mg capsule,delayed release 40 mg PO BID #60 cap 11/05/20 [Rx Last Taken Unknown] valacyclovir 500 mg PO DAILY 11/05/20 [History Last Taken Unknown] budesonide-formoterol HFA 160 mcg-4.5 mcg/actuation aerosol inhaler 2 puff INHALATION BID #10.2 g 12/16/20 [Rx Last Taken Unknown] ondansetron 4 mg PO Q6H PRN PRN #20 tab 05/30/21 [Rx Last Taken Unknown] nabumetone 750 mg tablet 750 mg PO BID PRN #30 tab 06/02/21 [Rx Last Taken Unknown] albuterol sulfate 90 mcg/actuation aerosol inhaler 1 - 2 puff INHALATION Q6H PRN #8.5 g 06/22/21 [Rx Last Taken Unknown] baclofen 10 mg tablet 10 mg PO BID PRN #60 tab 06/22/21 [Rx Last Taken Unknown] sumatriptan succinate 25 mg tablet See Rx Instructions PO .COMPLEX #14 tab 06/22/21 [Rx Last Taken Unknown] gabapentin 300 mg capsule 300 mg PO Q8H #90 cap 06/23/21 [Rx Last Taken Unknown] Allergy/AdvReac Type Severity Reaction Status Date / Time zinc oxide Allergy Unknown Unknown Verified 06/22/21 14:41 naproxen [From Naprosyn] AdvReac Nausea Verified 06/22/21 14:41 otc skin products AdvReac Intermediate Unknown Uncoded 05/30/21 13:27 Family History Unknown Alcoholism Anxiety Asthma Depression Myocardial infarction Suicide attempt Other Cancer Surgical History History of laparoscopic appendectomy History of oral surgery Social History Smoking Status: Current every day smoker tobacco type: cigarettes alcohol intake: former year quit: 2014 substance use type: 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, methamphetamine and other what type of physical activity do you participate in: yoga and weight training frequency: 3-4 times per week ROS ROS ED Constitutional Constitutional ED: Denies chills or fever(s) Eyes Eyes: Denies blurry vision or change in vision ENT ENT ED: Denies rhinorrhea or sore throat Cardiovascular Cardiovascular: Denies chest pain or palpitations Respiratory/Chest Respiratory/Chest: Denies cough or dyspnea Gastrointestinal Gastrointestinal: Denies nausea or vomiting Genitourinary Genitourinary ED: Denies dysuria or hematuria Musculoskeletal Musculoskeletal: Reports back pain; Denies neck pain Integumentary Denies abscess or rash Neurologic Neurologic: Denies headache(s) or weakness Allergic/Immunologic Allergic/Immunologic ED: Denies mouth swelling or urticaria EXAM Physical Exam Const Vital Signs: 07/15/21 15:40 07/15/21 15:41 Temperature 96.8 F L 96.8 F L Temperature Source Temporal Temporal Pulse Rate 102 H 103 H Respiratory Rate 16 16 Blood Pressure 126/62 H 126/62 H Blood Pressure Mean 83 83 Pulse Ox 99 98 Oxygen Delivery Method Room Air Room Air Positive well nourished and well developed General Appearance ED: well developed and NAD HEENT Reports moist mucous membranes Neck supple Back/Spine Back/Spine Narrative: There is tenderness over the left lower lumbar paraspinal muscles and over the sciatic notch. There is no edema or ecchymosis. There is no bony crepitance or step-off. Range of motion was limited in all motions of the lumbar spine secondary to pain. Patient was able to go from the chair to the cot in the room without difficulty. Strength is 5/5 bilaterally in the lower extremities. There are no sensory deficits noted. Deep tendon reflexes are 2+/4 bilaterally in the patellar reflexes. Lumbar Spine / Lower Back: ROM limited and straight leg raise negative bilaterally Neuro oriented x3 and no sensory deficits noted Sensorium / Orientation: alert Motor Exam: strength 5/5 throughout Deep Tendon Reflexes: Rt Patellar (L4): 2+ and Lt Patellar (L4): 2+ Deep Tendon Reflexes Back: Rt Patellar (L4): 2+ and Lt Patellar (L4): 2+ Psych mental status grossly normal MDM MDM MDM Narrative Medical decision making narrative: Patient was given injection of morphine here. Patient was instructed use ice to the area. Patient was instructed to continue her Relafen as needed for pain. Patient was instructed to follow-up with her primary care physician in 5 to 7 days. Patient states she has an appoint with Dr. Palafox later this week. Patient was instructed to follow-up with this appointment as well. Patient was instructed to return if worse in any way. Patient understood and was agreeable with the plan. All questions were answered. Discharge Plan Triage Chief Complaint: Lower Extremity Injury ED Provider: Kaleb Molina Dx/Rx/DC Orders Clinical Impression: Left sided sciatica Instructions: ED Sciatica Prescriptions: No Action loratadine 10 mg capsule 10 mg PO DAILY Qty: 90 RF: 2 cariprazine 1.5 mg capsule 3 mg PO DAILY RF: 0 lamotrigine [Lamictal] 25 mg tablet 25 mg PO DAILY RF: 0 trazodone 50 mg tablet 50 mg PO QHS PRN (Reason: Sleep) RF: 0 bupropion HCl [Wellbutrin XL] 150 mg tablet extended release 24 hr 150 mg PO QAM RF: 0 ondansetron HCl [Zofran] 4 mg tablet 4 mg PO Q8H PRN (Reason: nausea and vomiting) Qty: 60 RF: 0 baclofen 10 mg tablet 10 mg PO BID PRN (Reason: muscle spasm) Qty: 60 RF: 2 sumatriptan succinate 25 mg tablet See Rx Instructions PO .COMPLEX Qty: 14 RF: 2 albuterol sulfate [ProAir HFA] 90 mcg/actuation HFA aerosol inhaler 1 - 2 puff inhalation Q6H PRN (Reason: shortness of breath or wheezing) Qty: 8.5 RF: 2 valacyclovir 500 mg tablet 500 mg PO DAILY RF: 0 ondansetron [ondansetron] 4 MG tablet 4 mg PO Q6H PRN PRN (Reason: Nausea) Qty: 20 RF: 0 (DME) blood pressure monitor Kit See Rx Instructions .ROUTE .MEDSUPPLY Qty: 1 RF: 0 omeprazole 40 mg capsule,delayed release(DR/EC) 40 mg PO BID Qty: 60 RF: 0 Symbicort 160-4.5 mcg/actuation HFA aerosol inhaler 2 puff INHALATION BID Qty: 10.2 RF: 3 nabumetone 750 mg tablet 750 mg PO BID PRN (Reason: pain (scale score 4-6)) Qty: 30 RF: 1 gabapentin 300 mg capsule 300 mg PO Q8H Qty: 90 RF: 1 Primary Care Provider: Navi Kemp Referrals: Navi Kemp MD [Primary Care Provider] - 5-7 Days Vernon Palafox DO [STAFF PHYSICIAN] - Keep Pat appointment Activity Restrictions/Additional Instructions: Use ice to your low back area. Continue your nabumetone as needed for pain. Follow-up with your orthopedic physician as scheduled. Disposition Disposition: Home, Self Care
[2021-07-15] MEDS: Morphine 4 MG/ML Syringe IM (17:37)
[2021-07-15 18:04] VITALS: PULSE 89; RESP 16; O2SAT 98
== END 2021-07-15 18:05 | disposition home or self-care (01) ==
PROVIDERS: Emergency Provider Emergency Medicine; PCP Internal Medicine; Visit Provider Emergency Medicine
DX: M54.42 Lumbago with sciatica, left side (principal); F31.9 Bipolar disorder, unspecified; G89.29 Other chronic pain; K21.9 Gastro-esophageal reflux disease without esophagitis; F41.9 Anxiety disorder, unspecified; F17.210 Nicotine dependence, cigarettes, uncomplicated; Z79.899 Other long term (current) drug therapy
CPT/HCPCS: 96372; 99282

== ENCOUNTER 2021-12-11 14:47 | Emergency (ER) | payer MEDICAID, SELFPAY ==
[2021-12-11 14:49] VITALS: BP 124/79; PULSE 94; RESP 16; TEMP 36.6; O2SAT 97; BMI 26.9
--- NOTE | 2021-12-11 15:03 | ED.VIS.BACK ---
HPI History of Present Illness Chief Complaint: Back Narrative Narrative: Patient has a history of sciatica. She sees both spine and pain management. She has more pain today. She has her usual radicular symptoms down her leg but she has no bowel or bladder incontinence or weakness. She has no urinary retention symptoms, no saddle anesthesia no recent fever or chills. No recent injury. [facility] Medical History Acute maxillary sinusitis, unspecified Alcohol abuse Anxiety and depression Asthma Back problem Bee sting Bipolar 1 disorder Bone fracture Chronic bronchitis Chronic headaches Chronic low back pain Chronic neck pain Drug abuse Encounter for screening for COVID-19 GERD (gastroesophageal reflux disease) Hearing loss in left ear Hx of emotional problems Left ankle sprain Lumbar radiculopathy Pneumonia PTSD (post-traumatic stress disorder) Right elbow pain Seasonal allergies URI (upper respiratory infection) Vision problem Home Medications blood pressure monitor #1 ea 10/29/19 [Rx Last Taken Unknown] loratadine 10 mg capsule 10 mg PO DAILY #90 caps 02/17/20 [Rx Last Taken Unknown] bupropion HCl 150 mg 24 hr tablet, extended release (Wellbutrin XL) 150 mg PO QAM 03/25/20 [History Last Taken Unknown] cariprazine 1.5 mg capsule 3 mg PO DAILY 03/25/20 [History Last Taken Unknown] lamotrigine 25 mg tablet (Lamictal) 25 mg PO DAILY 03/25/20 [History Last Taken Unknown] trazodone 50 mg tablet 50 mg PO QHS PRN Sleep 03/25/20 [History Last Taken Unknown] valacyclovir 500 mg tablet 500 mg PO DAILY 11/05/20 [History Last Taken Unknown] budesonide-formoterol HFA 160 mcg-4.5 mcg/actuation aerosol inhaler (Symbicort) 2 puff inhalation BID #10.2 grams 12/16/20 [Rx Last Taken Unknown] omeprazole 40 mg capsule,delayed release 40 mg PO DAILY PRN 07/22/21 [History Last Taken Unknown] albuterol sulfate 90 mcg/actuation aerosol inhaler (ProAir HFA) 1 - 2 puff inhalation Q6H PRN shortness of breath or wheezing #8.5 grams 08/24/21 [Rx Last Taken Unknown] fluoxetine 20 mg tablet 20 mg PO 10/12/21 [History Last Taken Unknown] gabapentin 300 mg capsule 300 mg PO Q8H #90 caps 10/17/21 [Rx Last Taken Unknown] sumatriptan succinate 25 mg tablet See Rx Instructions PO .COMPLEX migraine #14 tabs 11/09/21 [Rx Last Taken Unknown] acetaminophen 500 mg tablet 500 mg PO Q6H PRN fever or pain #60 tabs 12/08/21 [Rx Last Taken Unknown] ibuprofen 800 mg tablet 800 mg PO Q8H PRN pain #60 tabs 12/08/21 [Rx Last Taken Unknown] lidocaine 5 % topical patch 2 patch topical DAILY #60 ea 12/09/21 [Rx Last Taken Unknown] methocarbamol 500 mg tablet 500 mg PO TID PRN muscle spasm #90 tabs 12/09/21 [Rx Last Taken Unknown] Allergy/AdvReac Type Severity Reaction Status Date / Time zinc oxide Allergy Unknown Unknown Verified 12/11/21 14:48 naproxen [From Naprosyn] AdvReac Nausea Verified 12/11/21 14:48 otc skin products AdvReac Intermediate Unknown Uncoded 12/11/21 14:48 Family History Unknown Alcoholism Anxiety Asthma Depression Myocardial infarction Suicide attempt Other Cancer Surgical History History of laparoscopic appendectomy History of oral surgery Social History Smoking Status: Current every day smoker tobacco type: cigarettes alcohol intake: former year quit: 2014 substance use type: 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, methamphetamine and other what type of physical activity do you participate in: yoga and weight training frequency: 3-4 times per week ROS ROS ED ROS Narrative Past medical history: Reviewed Medications: Reviewed Social history: Noncontributory Review of systems: All systems negative except as indicated General: No fever Cardiovascular: No chest pain Respiratory: No shortness of breath or cough Gastrointestinal: No abdominal pain, nausea vomiting or diarrhea Genitourinary: No dysuria Musculoskeletal: Back pain as in HPI Skin: No rash Neurological: No memory loss, confusion or any focal weakness Psych: No recent behavioral changes Hematologic: No easy bleeding or easy bruising EXAM Physical Exam Narrative Exam Narrative: Vitals reviewed General: Patient appears in some discomfort HEENT: Moist mucous membranes Neck: Nontender Cardiovascular normal heart rate Respiratory: No respiratory difficulty speaking in full sentences Abdomen: Soft and nontender, there is no suprapubic mass or pain Back: There is some tenderness over the lumbar region, pain is spinal and paraspinal both. Extremities: Moves all extremities without joint pain or signs of trauma Neurological: There is normal plantar flexion and dorsiflexion of both feet and great toes. Patellar and Achilles reflexes are normal. Normal strength and sensation. She tells me she has radicular symptoms on the left but she has a negative straight leg test. Skin: No rash Psychiatric: Slightly anxious. Const Vital Signs: 12/11/21 14:49 Temperature 98 F Temperature Source Temporal Pulse Rate 94 Respiratory Rate 16 Blood Pressure 124/79 H Blood Pressure Mean 94 Pulse Ox 97 Oxygen Delivery Method Room Air MDM MDM MDM Narrative Medical decision making narrative: Patient will be treated with analgesia in the ED, she is told to follow-up with both her spine surgeon and her pain management doctor. Discharge Plan Triage Chief Complaint: Back ED Provider: Sunil Shea Dx/Rx/DC Orders Clinical Impression: Chronic low back pain, Radicular pain Instructions: Back Safety: Bending, Back Safety: Lifting Prescriptions: No Action loratadine 10 mg capsule 10 mg PO DAILY Qty: 90 2RF cariprazine 1.5 mg capsule 3 mg PO DAILY lamotrigine [Lamictal] 25 mg tablet 25 mg PO DAILY trazodone 50 mg tablet 50 mg PO QHS PRN (Reason: Sleep) bupropion HCl [Wellbutrin XL] 150 mg tablet extended release 24 hr 150 mg PO QAM omeprazole 40 mg capsule,delayed release(DR/EC) 40 mg PO DAILY PRN fluoxetine 20 mg tablet 20 mg PO methocarbamol 500 mg tablet 500 mg PO TID PRN (Reason: muscle spasm) Qty: 90 0RF lidocaine 5 % adhesive patch,medicated 2 patch TOPICAL DAILY Qty: 60 3RF Rx Instructions: leave on most painful area for up to 12 hrs valacyclovir 500 mg tablet 500 mg PO DAILY (DME) blood pressure monitor Kit See Rx Instructions .ROUTE .MEDSUPPLY Qty: 1 0RF Rx Instructions: Check blood pressure daily for hypertension I10 Symbicort 160-4.5 mcg/actuation HFA aerosol inhaler 2 puff INHALATION BID Qty: 10.2 3RF albuterol sulfate [ProAir HFA] 90 mcg/actuation HFA aerosol inhaler 1 - 2 puff inhalation Q6H PRN (Reason: shortness of breath or wheezing) Qty: 8.5 2RF gabapentin 300 mg capsule 300 mg PO Q8H Qty: 90 1RF sumatriptan succinate 25 mg tablet See Rx Instructions PO .COMPLEX Qty: 14 2RF Rx Instructions: take 1 tab at onset of headache; if no relief may repeat 1 tab in 2hr; max = 4 tabs/day (24hr) PO acetaminophen 500 mg tablet 500 mg PO Q6H PRN (Reason: fever or pain) Qty: 60 1RF ibuprofen 800 mg tablet 800 mg PO Q8H PRN (Reason: pain) Qty: 60 1RF Primary Care Provider: Navi Kemp Referrals: Navi Kemp MD [Primary Care Provider] - 3-5 Days Disposition Disposition: Home, Self Care
[2021-12-11] MEDS: Ondansetron 4 MG/2 ML Vial IM (15:07)
[2021-12-11] MEDS: Morphine 4 MG/ML Syringe IM (15:08)
[2021-12-11] MEDS: Ketorolac 30 MG/ML Syringe IM (15:10)
== END 2021-12-11 15:28 | disposition home or self-care (01) ==
LOC: ED 15:15
PROVIDERS: Emergency Provider Emergency Medicine; PCP Internal Medicine; Visit Provider Emergency Medicine
DX: M54.16 Radiculopathy, lumbar region (principal); G89.29 Other chronic pain; F17.210 Nicotine dependence, cigarettes, uncomplicated
CPT/HCPCS: 96372; 99282; J2405

== ENCOUNTER → 2022-01-14 | Outpatient (CLI) | payer MEDICAID, SELFPAY ==
--- NOTE | 2022-01-14 09:30 | MRI_ITS ---
HISTORY: Lumbar radiculopathy, pain in lower back to left leg. TECHNIQUE: Multiplanar and multisequence MR images of the lumbar spine were obtained without intravenous contrast. 120 images. COMPARISON: 04/02/2021. FINDINGS: VERTEBRAE: Vertebral body heights maintained. Very mild degenerative endplate changes of L1-2. ALIGNMENT: No significant anterior or posterior subluxation. CONUS: Normal morphology and position of the conus medullaris at L1-2. INTERVERTEBRAL DISCS: T12-L1, L1-2, L2-3, L3-4: No significant posterior disc protrusion, central canal stenosis, or foraminal narrowing. L4-5: Minimal disc bulge with facet arthropathy. No significant central canal stenosis. Mild bilateral foraminal narrowing. L5-S1: No significant posterior disc protrusion, central canal stenosis, or foraminal narrowing. SOFT TISSUES: No paraspinal fluid collection. MRI/Spine Lumbar (Routine) IMPRESSION: Very mild disc bulge at L4-5 resulting in mild bilateral foraminal narrowing. No significant spinal canal stenosis. Electronically Signed: Teresa Vera MD at 10:27 EDT ,
== END | disposition home or self-care (01) ==
LOC: MRI 08:48
PROVIDERS: PCP Internal Medicine; Referring Provider Anesthesiology Pain Medicine; Visit Provider Anesthesiology Pain Medicine
DX: M54.16 Radiculopathy, lumbar region (principal)
CPT/HCPCS: 72148

== ENCOUNTER 2022-01-18 16:18 | Emergency (ER) | payer MEDICAID, SELFPAY ==
[2022-01-18 16:21] VITALS: BP 114/60; PULSE 86; RESP 17; TEMP 37.2; O2SAT 98; BMI 26.3
--- NOTE | 2022-01-18 16:46 | EDS_ITS ---
HPI History of Present Illness Chief Complaint: Back Informant: patient Onset/Context/Timing Onset: Month(s) Context: Gradual Onset Timing: Continuous Quality: Sharp and Dull Location: Lumbar and Buttock Worsened by: improves with Movement Relieved by: Bending Forward Associated Symptoms Associated Symptoms: Numbness, Tingling and Radiation to Left Leg; Negative for Radiation to Right Leg, Fever, Abdominal Pain, Dysuria, Unable to Ambulate, Unable to Transfer, Urinary Retention, Urinary Incontinence, Constipation or Fecal Incontinence Narrative Narrative: Patient presents with back pain that became worse today. Patient states this is a chronic condition for her. Patient states she saw her orthopedic spinal surgeon today. Patient states that her pain became worse after he saw her. Patient then came to the emergency department. Patient states the pain is over the left sacroiliac area. Patient states the pain radiates down her left leg. Patient denies any bowel or bladder changes. Patient denies any saddle anesthesia. Patient had a recent MRI which was negative. Patient admits to some numbness and tingling down her left leg which is chronic and unchanged. Prior similar symptoms: Yes and With Prior Back [facility] Medical History (Updated 01/18/22 @ 16:[address] Kaleb Molina, DO) Acute maxillary sinusitis, unspecified Alcohol abuse Anxiety and depression Asthma Back problem Bee sting Bipolar 1 disorder Bone fracture Chronic bronchitis Chronic headaches Chronic low back pain Chronic neck pain Drug abuse Encounter for screening for COVID-19 GERD (gastroesophageal reflux disease) Hearing loss in left ear Hx of emotional problems Left ankle sprain Lumbar radiculopathy Pneumonia PTSD (post-traumatic stress disorder) Right elbow pain Seasonal allergies URI (upper respiratory infection) Vision problem Home Medications blood pressure monitor #1 ea 10/29/19 [Rx Last Taken Unknown] loratadine 10 mg capsule 10 mg PO DAILY #90 caps 02/17/20 [Rx Last Taken Unknown] cariprazine 1.5 mg capsule 3 mg PO DAILY 03/25/20 [History Last Taken Unknown] lamotrigine 25 mg tablet (Lamictal) 25 mg PO DAILY 03/25/20 [History Last Taken Unknown] trazodone 50 mg tablet 50 mg PO QHS PRN Sleep 03/25/20 [History Last Taken Unknown] valacyclovir 500 mg tablet 500 mg PO DAILY 11/05/20 [History Last Taken Unknown] budesonide-formoterol HFA 160 mcg-4.5 mcg/actuation aerosol inhaler (Symbicort) 2 puff inhalation BID #10.2 grams 12/16/20 [Rx Last Taken Unknown] albuterol sulfate 90 mcg/actuation aerosol inhaler (ProAir HFA) 1 - 2 puff inhalation Q6H PRN shortness of breath or wheezing #8.5 grams 08/24/21 [Rx Last Taken Unknown] fluoxetine 20 mg tablet 20 mg PO DAILY 10/12/21 [History Last Taken Unknown] sumatriptan succinate 25 mg tablet See Rx Instructions PO .COMPLEX migraine #14 tabs 11/09/21 [Rx Last Taken Unknown] acetaminophen 500 mg tablet 500 mg PO Q6H PRN fever or pain #60 tabs 12/08/21 [Rx Last Taken Unknown] ibuprofen 800 mg tablet 800 mg PO Q8H PRN pain #60 tabs 12/08/21 [Rx Last Taken Unknown] lidocaine 5 % topical patch 2 patch topical DAILY #60 ea 12/09/21 [Rx Last Taken Unknown] methocarbamol 500 mg tablet 500 mg PO TID PRN muscle spasm #90 tabs 12/09/21 [Rx Last Taken Unknown] gabapentin 300 mg capsule 300 mg PO Q8H #90 caps 01/02/22 [Rx Last Taken Unknown] Allergy/AdvReac Type Severity Reaction Status Date / Time zinc oxide Allergy Unknown Unknown Verified 01/18/22 16:19 naproxen [From Naprosyn] AdvReac Nausea Verified 01/18/22 16:19 otc skin products AdvReac Intermediate Unknown Uncoded 01/18/22 16:19 Family History Unknown Alcoholism Anxiety Asthma Depression Myocardial infarction Suicide attempt Other Cancer Surgical History (Updated 01/18/22 @ 16:[address] Kaleb Molina DO) History of cholecystectomy History of laparoscopic appendectomy History of oral surgery Social History Smoking Status: Current every day smoker tobacco type: cigarettes alcohol intake: former year quit: 2014 substance use type: 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, methamphetamine and other what type of physical activity do you participate in: yoga and weight training frequency: 3-4 times per week ROS ROS ED Constitutional Constitutional ED: Denies chills or fever(s) Eyes Eyes: Denies blurry vision or change in vision ENT ENT ED: Denies rhinorrhea or sore throat Cardiovascular Cardiovascular: Denies chest pain or palpitations Respiratory/Chest Respiratory/Chest: Denies cough or dyspnea Gastrointestinal Gastrointestinal: Denies nausea or vomiting Genitourinary Genitourinary ED: Denies dysuria or hematuria Musculoskeletal Musculoskeletal: Reports back pain; Denies neck pain Integumentary Denies abscess or rash Neurologic Neurologic: Reports headache(s); Denies weakness Allergic/Immunologic Allergic/Immunologic ED: Denies mouth swelling or urticaria EXAM Physical Exam Const Vital Signs: 01/18/22 16:21 Temperature 98.9 F Temperature Source Temporal Pulse Rate 86 Respiratory Rate 17 Blood Pressure 114/60 Blood Pressure Mean 78 Pulse Ox 98 Oxygen Delivery Method Room Air Positive well nourished and well developed General Appearance ED: well developed and NAD HEENT Reports moist mucous membranes Neck supple and no JVD Back/Spine Back/Spine Narrative: Patient wasThere is tenderness over the left sacroiliac joint. There is mild tenderness and spasm of the left lower lumbar paraspinal muscles. There is no midline tenderness. There is no bony crepitance or step-off. Limited all motions of the lumbar spine secondary to pain. Straight leg raises were negative bilaterally. Strength is 5/5 bilaterally in lower extremities. There are no sensory deficits. Deep tendon reflexes are 2/4 bilaterally in the lower extremities. Lumbar Spine / Lower Back: ROM limited and straight leg raise negative bilaterally Extremity normal to inspection General Extremety ED: Negative for edema or tenderness General Extremity: Negative for edema Neuro oriented x3 and no sensory deficits noted Sensorium / Orientation: alert Motor Exam: strength 5/5 throughout Deep Tendon Reflexes: Rt Patellar (L4): 2+, Lt Patellar (L4): 2+, Rt Ankle (S1): 2+ and Lt Ankle (S1): 2+ Deep Tendon Reflexes Back: Rt Patellar (L4): 2+, Lt Patellar (L4): 2+, Rt Ankle (S1): 2+ and Lt Ankle (S1): 2+ Psych mental status grossly normal MDM MDM MDM Narrative Medical decision making narrative: Patient was given an injection of Toradol here. Patient was instructed to use ice to the area. Patient was instructed to continue her analgesics as prescribed by her pain management physician. Patient was instructed to follow- up with her pain management physician and primary care physician in 5 to 7 days. Patient understood and was agreeable with the plan. All questions were answered. Discharge Plan Triage Chief Complaint: Back ED Provider: Kaleb Molina Dx/Rx/DC Orders Clinical Impression: Left sided sciatica, Chronic low back pain Instructions: ED Chronic Pain, ED Sciatica Prescriptions: No Action loratadine 10 mg capsule 10 mg PO DAILY Qty: 90 2RF cariprazine 1.5 mg capsule 3 mg PO DAILY lamotrigine [Lamictal] 25 mg tablet 25 mg PO DAILY trazodone 50 mg tablet 50 mg PO QHS PRN (Reason: Sleep) fluoxetine 20 mg tablet 20 mg PO DAILY methocarbamol 500 mg tablet 500 mg PO TID PRN (Reason: muscle spasm) Qty: 90 0RF lidocaine 5 % adhesive patch,medicated 2 patch TOPICAL DAILY Qty: 60 3RF Rx Instructions: leave on most painful area for up to 12 hrs valacyclovir 500 mg tablet 500 mg PO DAILY (DME) blood pressure monitor Kit See Rx Instructions .ROUTE .MEDSUPPLY Qty: 1 0RF Rx Instructions: Check blood pressure daily for hypertension I10 Symbicort 160-4.5 mcg/actuation HFA aerosol inhaler 2 puff INHALATION BID Qty: 10.2 3RF albuterol sulfate [ProAir HFA] 90 mcg/actuation HFA aerosol inhaler 1 - 2 puff inhalation Q6H PRN (Reason: shortness of breath or wheezing) Qty: 8.5 2RF sumatriptan succinate 25 mg tablet See Rx Instructions PO .COMPLEX Qty: 14 2RF Rx Instructions: take 1 tab at onset of headache; if no relief may repeat 1 tab in 2hr; max = 4 tabs/day (24hr) PO acetaminophen 500 mg tablet 500 mg PO Q6H PRN (Reason: fever or pain) Qty: 60 1RF ibuprofen 800 mg tablet 800 mg PO Q8H PRN (Reason: pain) Qty: 60 1RF gabapentin 300 mg capsule 300 mg PO Q8H Qty: 90 1RF Primary Care Provider: Navi Kemp Referrals: Simona Richardson MD [Med Staff - Active Staff] - 3-5 Days Navi Kemp MD [Primary Care Provider] - 3-5 Days Disposition Disposition: Home, Self Care
[2022-01-18] MEDS: Ketorolac 60 MG/2 ML Vial IM (17:04)
== END 2022-01-18 17:07 | disposition home or self-care (01) ==
PROVIDERS: Emergency Provider Emergency Medicine; PCP Internal Medicine; Visit Provider Emergency Medicine
DX: M54.42 Lumbago with sciatica, left side (principal); G89.29 Other chronic pain; F17.210 Nicotine dependence, cigarettes, uncomplicated
CPT/HCPCS: 96372; 99282

== ENCOUNTER 2022-03-01 13:12 | Emergency (ER) | payer MEDICAID, SELFPAY ==
[2022-03-01 13:14] VITALS: BP 122/64; PULSE 64; RESP 14; TEMP 36.7; O2SAT 97; BMI 26.9
--- NOTE | 2022-03-01 16:27 | EX.ED.DYSGE1 ---
HPI History of Present Illness Chief Complaint: Headache Informant: patient Narrative Narrative: 31-year-old female with a history of migraines presenting to the emergency room with headache. She states that she woke up this morning with a headache and photophobia. She notes associated nausea. She denies any arm leg speech or vision changes. She states that she does take sumatriptan hand but that does not help once her headache has been set in for several hours. The patient describes the headache as mostly frontal and left-sided and sharp throbbing in nature. She denies any neck pain fever rashes or recent illnesses. She states that she gets a migraine approximately 6 times per month. The patient notes that in the past she has had occasionally times where she needed to come to the emergency department and states that the migraine cocktail typically makes her feel better. [facility] Medical History Acute maxillary sinusitis, unspecified Alcohol abuse Anxiety and depression Asthma Back problem Bee sting Bipolar 1 disorder Bone fracture Chronic bronchitis Chronic headaches Chronic low back pain Chronic neck pain Contact with and (suspected) exposure to other viral communicable diseases Drug abuse Encounter for screening for COVID-19 GERD (gastroesophageal reflux disease) Hearing loss in left ear Hx of emotional problems Left ankle sprain Lumbar radiculopathy Pneumonia PTSD (post-traumatic stress disorder) Right elbow pain Seasonal allergies URI (upper respiratory infection) URI (upper respiratory infection) Vision problem Home Medications blood pressure monitor #1 ea 10/29/19 [Rx Last Taken Unknown] loratadine 10 mg capsule 10 mg PO DAILY #90 caps 02/17/20 [Rx Last Taken Unknown] cariprazine 1.5 mg capsule 3 mg PO DAILY 03/25/20 [History Last Taken Unknown] lamotrigine 25 mg tablet (Lamictal) 25 mg PO DAILY 03/25/20 [History Last Taken Unknown] trazodone 50 mg tablet 50 mg PO QHS PRN Sleep 03/25/20 [History Last Taken Unknown] valacyclovir 500 mg tablet 500 mg PO DAILY 11/05/20 [History Last Taken Unknown] budesonide-formoterol HFA 160 mcg-4.5 mcg/actuation aerosol inhaler (Symbicort) 2 puff inhalation BID #10.2 grams 12/16/20 [Rx Last Taken Unknown] albuterol sulfate 90 mcg/actuation aerosol inhaler (ProAir HFA) 1 - 2 puff inhalation Q6H PRN shortness of breath or wheezing #8.5 grams 08/24/21 [Rx Last Taken Unknown] fluoxetine 20 mg tablet 20 mg PO DAILY 10/12/21 [History Last Taken Unknown] sumatriptan succinate 25 mg tablet See Rx Instructions PO .COMPLEX migraine #14 tabs 11/09/21 [Rx Last Taken Unknown] acetaminophen 500 mg tablet 500 mg PO Q6H PRN fever or pain #60 tabs 12/08/21 [Rx Last Taken Unknown] lidocaine 5 % topical patch 2 patch topical DAILY #60 ea 12/09/21 [Rx Last Taken Unknown] methocarbamol 500 mg tablet 500 mg PO TID PRN muscle spasm #90 tabs 12/09/21 [Rx Last Taken Unknown] ibuprofen 800 mg tablet 800 mg PO Q8H PRN pain #60 tabs 02/10/22 [Rx Last Taken Unknown] gabapentin 400 mg capsule 400 mg PO Q8H #90 caps 02/14/22 [Rx Last Taken Unknown] benzonatate 200 mg capsule 200 mg PO TID PRN cough #20 caps 02/16/22 [Rx Last Taken Unknown] Allergy/AdvReac Type Severity Reaction Status Date / Time zinc oxide Allergy Unknown Unknown Verified 01/20/22 15:51 naproxen [From Naprosyn] AdvReac Nausea Verified 01/20/22 15:51 Family History Unknown Alcoholism Anxiety Asthma Depression Myocardial infarction Suicide attempt Other Cancer Surgical History History of cholecystectomy History of laparoscopic appendectomy History of oral surgery Social History Smoking Status: Current every day smoker tobacco type: cigarettes alcohol intake: former year quit: 2014 substance use type: 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, methamphetamine and other what type of physical activity do you participate in: yoga and weight training frequency: 3-4 times per week ROS ROS ED Constitutional Constitutional ED: Denies chills or weight loss Eyes Eyes: Denies change in vision or diplopia ENT ENT ED: Denies ear pain, rhinorrhea or sore throat Cardiovascular Cardiovascular: Denies chest pain, orthopnea, palpitations or racing heartbeat Respiratory/Chest Respiratory/Chest: Denies cough, dyspnea or orthopnea Gastrointestinal Gastrointestinal: Reports nausea; Denies abdominal pain, diarrhea or vomiting Genitourinary Genitourinary ED: Denies dysuria, hematuria or urinary frequency Musculoskeletal Musculoskeletal: Denies arthralgias or myalgias Integumentary Denies abscess or rash Neurologic Neurologic: Reports headache(s); Denies weakness Psychiatric Psychiatric: Denies anxiety, depression, suicidal ideation or suicidal thoughts Endocrine Endocrinology: Denies polydipsia, polyphagia or polyuria Allergic/Immunologic Allergic/Immunologic ED: Denies mouth swelling, tongue swelling or urticaria EXAM Physical Exam Narrative Exam Narrative: 31-year-old female with no apparent neurologic deficits is sitting in a darkened room. She notes some mild light sensitivity but I would not classify her as photophobic. She has no meningeal signs. Const Vital Signs: 03/01/22 13:14 03/01/22 16:37 Temperature 98.1 F Temperature Source Temporal Pulse Rate 64 69 Respiratory Rate 14 14 Blood Pressure 122/64 H 122/51 H Blood Pressure Mean 83 74 Pulse Ox 97 95 Oxygen Delivery Method Room Air Room Air Positive well nourished and well developed General Appearance ED: well developed HEENT Reports normocephalic, head/scalp atraumatic and moist mucous membranes Eyes PERRL and EOMs intact bilaterally Neck no lymphadenopathy, supple and no JVD Resp normal respiratory effort and clear to auscultation bilaterally Cardio regular rate, regular rhythm and no murmurs GI normal to inspection, nondistended, normoactive bowel sounds and non-tender Palpation: soft Back/Spine no CVA tenderness and normal ROM Extremity normal to inspection General Extremety ED: Negative for edema General Extremity: Negative for edema Neuro oriented x3, CN's II-XII intact bilaterally and no sensory deficits noted Sensorium / Orientation: alert Motor Exam: strength 5/5 throughout Psych mental status grossly normal Mood & Affect: Negative for depressed or tearful Skin no rashes or lesions noted and no wounds MDM MDM MDM Narrative Medical decision making narrative: The patient received a liter of IV fluids Toradol Compazine and Benadryl. She is feeling significantly improved on repeat examination will be discharged. Discharge Plan Triage Chief Complaint: Headache ED Provider: Michael Shah Dx/Rx/DC Orders Clinical Impression: Headache, Nausea Instructions: ED, Migraine (Classical) Prescriptions: No Action loratadine 10 mg capsule 10 mg PO DAILY Qty: 90 2RF cariprazine 1.5 mg capsule 3 mg PO DAILY lamotrigine [Lamictal] 25 mg tablet 25 mg PO DAILY trazodone 50 mg tablet 50 mg PO QHS PRN (Reason: Sleep) fluoxetine 20 mg tablet 20 mg PO DAILY methocarbamol 500 mg tablet 500 mg PO TID PRN (Reason: muscle spasm) Qty: 90 0RF lidocaine 5 % adhesive patch,medicated 2 patch TOPICAL DAILY Qty: 60 3RF Rx Instructions: leave on most painful area for up to 12 hrs benzonatate 200 mg capsule 200 mg PO TID PRN (Reason: cough) Qty: 20 0RF valacyclovir 500 mg tablet 500 mg PO DAILY (DME) blood pressure monitor Kit See Rx Instructions .ROUTE .MEDSUPPLY Qty: 1 0RF Rx Instructions: Check blood pressure daily for hypertension I10 Symbicort 160-4.5 mcg/actuation HFA aerosol inhaler 2 puff INHALATION BID Qty: 10.2 3RF albuterol sulfate [ProAir HFA] 90 mcg/actuation HFA aerosol inhaler 1 - 2 puff inhalation Q6H PRN (Reason: shortness of breath or wheezing) Qty: 8.5 2RF sumatriptan succinate 25 mg tablet See Rx Instructions PO .COMPLEX Qty: 14 2RF Rx Instructions: take 1 tab at onset of headache; if no relief may repeat 1 tab in 2hr; max = 4 tabs/day (24hr) PO acetaminophen 500 mg tablet 500 mg PO Q6H PRN (Reason: fever or pain) Qty: 60 1RF ibuprofen 800 mg tablet 800 mg PO Q8H PRN (Reason: pain) Qty: 60 1RF gabapentin 400 mg capsule 400 mg PO Q8H Qty: 90 2RF Primary Care Provider: Navi Kemp Referrals: Navi Kemp MD [Primary Care Provider] - As Needed Disposition Disposition: Home, Self Care
[2022-03-01] MEDS: DiphenhydrAMINE 50 MG/ML Syringe IV (16:34)
[2022-03-01] MEDS: proCHLORPERazine 10 MG/2 ML Vial IV (16:34)
[2022-03-01] MEDS: Ketorolac 30 MG/ML Syringe IV (16:34)
[2022-03-01] MEDS: 0.9% Normal Saline 1,000 ML 999 ML IV (16:34)
[2022-03-01 16:37] VITALS: BP 122/51; PULSE 69; RESP 14; O2SAT 95
== END 2022-03-01 17:05 | disposition home or self-care (01) ==
PROVIDERS: Emergency Provider Emergency Medicine; PCP Internal Medicine; Visit Provider Emergency Medicine
DX: R51.9 Headache, unspecified (principal); R11.0 Nausea; Z87.891 Personal history of nicotine dependence
CPT/HCPCS: 96361; 96374; 96375; 99283; J7030; A4216

== ENCOUNTER 2022-03-17 16:58 | Emergency (ER) | payer MEDICAID, SELFPAY ==
[2022-03-17 16:59] VITALS: BP 117/56; PULSE 107; RESP 16; TEMP 37.4; O2SAT 96; BMI 25.9
--- NOTE | 2022-03-17 18:10 | ED.VIS.GI ---
HPI <GIOVANI James - Last Filed: 03/17/22 21:40> HPI - GI History of Present Illness Chief Complaint: Abd Pain Narrative Narrative: Patient presents with lower abdominal pain that radiates into her lower back. She states this pain started 2 days ago and has only worsened. Admits to a decreased appetite and nausea but denies fever, vomiting, dysuria, hematuria, abnormal vaginal discharge, diarrhea, and constipation. Patient has had an appendectomy and cholecystectomy. Patient states she does not really have a menstrual period due to being on Depo. PFSH <GIOVANI James - Last Filed: 03/17/22 21:40> [facility] Medical History Acute maxillary sinusitis, unspecified Alcohol abuse Anxiety and depression Asthma Back problem Bee sting Bipolar 1 disorder Bone fracture Chronic bronchitis Chronic headaches Chronic low back pain Chronic neck pain Contact with and (suspected) exposure to other viral communicable diseases Drug abuse Encounter for screening for COVID-19 GERD (gastroesophageal reflux disease) Hearing loss in left ear Hx of emotional problems Left ankle sprain Lumbar radiculopathy Pneumonia PTSD (post-traumatic stress disorder) Right elbow pain Seasonal allergies URI (upper respiratory infection) URI (upper respiratory infection) Vision problem Home Medications blood pressure monitor #1 ea 10/29/19 [Rx Last Taken Unknown] loratadine 10 mg capsule 10 mg PO DAILY #90 caps 02/17/20 [Rx Last Taken Unknown] cariprazine 1.5 mg capsule 3 mg PO DAILY 03/25/20 [History Last Taken Unknown] lamotrigine 25 mg tablet (Lamictal) 25 mg PO DAILY 03/25/20 [History Last Taken Unknown] trazodone 50 mg tablet 50 mg PO QHS PRN Sleep 03/25/20 [History Last Taken Unknown] valacyclovir 500 mg tablet 500 mg PO DAILY 11/05/20 [History Last Taken Unknown] budesonide-formoterol HFA 160 mcg-4.5 mcg/actuation aerosol inhaler (Symbicort) 2 puff inhalation BID #10.2 grams 12/16/20 [Rx Last Taken Unknown] albuterol sulfate 90 mcg/actuation aerosol inhaler (ProAir HFA) 1 - 2 puff inhalation Q6H PRN shortness of breath or wheezing #8.5 grams 08/24/21 [Rx Last Taken Unknown] fluoxetine 20 mg tablet 20 mg PO DAILY 10/12/21 [History Last Taken Unknown] sumatriptan succinate 25 mg tablet See Rx Instructions PO .COMPLEX migraine #14 tabs 11/09/21 [Rx Last Taken Unknown] acetaminophen 500 mg tablet 500 mg PO Q6H PRN fever or pain #60 tabs 12/08/21 [Rx Last Taken Unknown] lidocaine 5 % topical patch 2 patch topical DAILY #60 ea 12/09/21 [Rx Last Taken Unknown] methocarbamol 500 mg tablet 500 mg PO TID PRN muscle spasm #90 tabs 12/09/21 [Rx Last Taken Unknown] ibuprofen 800 mg tablet 800 mg PO Q8H PRN pain #60 tabs 02/10/22 [Rx Last Taken Unknown] gabapentin 400 mg capsule 400 mg PO Q8H #90 caps 02/14/22 [Rx Last Taken Unknown] benzonatate 200 mg capsule 200 mg PO TID PRN cough #20 caps 02/16/22 [Rx Last Taken Unknown] nitrofurantoin macrocrystal 100 mg capsule 100 mg PO BID cystitis 5 days #10 caps 03/17/22 [Rx Last Taken Unknown] ondansetron 4 mg disintegrating tablet 4 mg PO Q8H PRN nausea and vomiting #10 tabs 03/17/22 [Rx Last Taken Unknown] Allergy/AdvReac Type Severity Reaction Status Date / Time zinc oxide Allergy Unknown Unknown Verified 03/17/22 16:59 naproxen [From Naprosyn] AdvReac Nausea Verified 03/17/22 16:59 Family History Unknown Alcoholism Anxiety Asthma Depression Myocardial infarction Suicide attempt Other Cancer Surgical History History of cholecystectomy History of laparoscopic appendectomy History of oral surgery Social History Smoking Status: Current every day smoker tobacco type: cigarettes alcohol intake: former year quit: 2014 substance use type: 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, methamphetamine and other what type of physical activity do you participate in: yoga and weight training frequency: 3-4 times per week ROS <GIOVANI James - Last Filed: 03/17/22 21:40> ROS ED Constitutional Constitutional ED: Denies chills, fever(s) or sweats ENT ENT ED: Denies rhinorrhea or sore throat Cardiovascular Cardiovascular: Denies chest pain or palpitations Respiratory/Chest Respiratory/Chest: Denies cough, dyspnea, shortness of breath at rest or shortness of breath with exertion Gastrointestinal Gastrointestinal: Reports abdominal pain and nausea; Denies constipation, diarrhea or vomiting Genitourinary Genitourinary ED: Reports urinary frequency; Denies dysuria or hematuria Musculoskeletal Musculoskeletal: Denies myalgias Integumentary Denies Abrasions or rash Neurologic Neurologic: Denies headache(s) or weakness Psychiatric Psychiatric: Denies anxiety EXAM <GIOVANI James - Last Filed: 03/17/22 21:40> Physical Exam Const Vital Signs: 03/17/22 16:59 03/17/22 20:57 Temperature 99.3 F H Temperature Source Temporal Pulse Rate 107 H 84 Respiratory Rate 16 16 Blood Pressure 117/56 L Blood Pressure Mean 76 Pulse Ox 96 97 Oxygen Delivery Method Room Air Positive well nourished HEENT Reports moist mucous membranes normocephalic and atraumatic Eyes PERRL and EOMs intact bilaterally Neck supple Resp normal respiratory effort and clear to auscultation bilaterally Auscultation: Negative for rales, rhonchi, wheezes or diminished lung sounds Cardio regular rate, regular rhythm and no murmurs GI non-distended and no masses GI Narrative: Patient has tenderness to palpation in the suprapubic region. Auscultation: normoactive bowel sounds Palpation: soft; Negative for guarding, rigid, hepatomegaly or splenomegaly Back/Spine no CVA tenderness Extremity full ROM Neuro moves all extremities, no sensory deficits noted and gait normal Sensorium / Orientation: alert, oriented to person, oriented to place and oriented to time Psych mental status grossly normal and thought process normal Skin no wounds General Skin Exam: Negative for jaundice Lesions: no lesions Rashes: no rashes <Dr. Jesus Mahoney DO - Last Filed: 03/17/22 21:38> Physical Exam Const Vital Signs: 03/17/22 16:59 03/17/22 20:57 Temperature 99.3 F H Temperature Source Temporal Pulse Rate 107 H 84 Respiratory Rate 16 16 Blood Pressure 117/56 L Blood Pressure Mean 76 Pulse Ox 96 97 Oxygen Delivery Method Room Air [facility] <GIOVANI James - Last Filed: 03/17/22 21:40> [facility] Narrative Medical decision making narrative: Patient has been given Toradol, Zofran, and IV fluids. She has been given antibiotics here in the ED and has been sent home with antibiotics and Zofran. She is stable and able to discharge. Attending note: Patient seen and evaluated with vocational adviser. I perform my own [id number] evaluation. I agree with the plan of work-up. 2 days suprapubic tenderness rating to her back with nausea. Denies fevers. Urine frequency. On Depo shots. History of appendectomy and cholecystectomy. Denies any ovarian cysts history. Denies any abnormal vaginal discharge or bleeding. Exam alert nontoxic patient. There is mild suprapubic tenderness. There is no guarding or rebound. Laboratory studies normal white count normal lipase creatinine 1.07. Urine did note signs of infection. She is treated with antiemetics fluids and Toradol. Improvement of symptoms. She started on antibiotics for UTI. Tolerating oral intake. Outpatient follow-up. Lab Data Attestation: I reviewed the patient's lab results. Labs: Laboratory Results - last 24 hr 03/17/22 03/17/22 03/17/22 18:30 18:30 18:30 WBC 5.7 RBC 4.74 Hgb 14.6 Hct 44.1 MCV 93.0 MCH 30.8 MCHC 33.1 RDW Std Deviation 41.1 RDW Coeff of [place] 11.9 Plt Count 321 MPV 9.5 Immature Gran % (Auto) 0.000 Neut % (Auto) 63.3 Lymph % (Auto) 24.1 [place] % (Auto) 9.1 Eos % (Auto) 2.3 Baso % (Auto) 1.2 H Absolute Neuts (auto) 3.6 Absolute Lymphs (auto) 1.38 Nucleated RBC % 0 Sodium 137 Potassium 5.0 Chloride 105 Carbon Dioxide 26.0 Anion Gap 6 BUN 11 Creatinine 1.07 H Estim Creat Clear Calc 74.08 Est GFR (MDRD) Af Amer 77 Est GFR (MDRD) Non-Af 63 BUN/Creatinine Ratio 10.3 Glucose 91 Calcium 8.9 Total Bilirubin 0.70 AST 48 H ALT 53 Alkaline Phosphatase 63 Total Protein 7.5 Albumin 3.8 Globulin 3.7 Albumin/Globulin Ratio 1.0 Lipase 86 Serum , Qual NEGATIVE Urine Color Urine Clarity Urine pH Ur Specific [place] Urine Protein Urine Glucose (UA) Urine Ketones Urine Occult Blood Urine Nitrite Urine Bilirubin Urine Urobilinogen Ur Leukocyte Esterase Urine RBC Urine WBC Ur Squamous Epith Cells Urine Bacteria Urine Mucus 03/17/22 18:40 WBC RBC Hgb Hct MCV MCH MCHC RDW Std Deviation RDW Coeff of [place] Plt Count MPV Immature Gran % (Auto) Neut % (Auto) Lymph % (Auto) [place] % (Auto) Eos % (Auto) Baso % (Auto) Absolute Neuts (auto) Absolute Lymphs (auto) Nucleated RBC % Sodium Potassium Chloride Carbon Dioxide Anion Gap BUN Creatinine Estim Creat Clear Calc Est GFR (MDRD) Af Amer Est GFR (MDRD) Non-Af BUN/Creatinine Ratio Glucose Calcium Total Bilirubin AST ALT Alkaline Phosphatase Total Protein Albumin Globulin Albumin/Globulin Ratio Lipase Serum , Qual Urine Color Yellow Urine Clarity Clear Urine pH 8.0 Ur Specific [place] 1.015 Urine Protein 30 H Urine Glucose (UA) Normal Urine Ketones Negative Urine Occult Blood Negative Urine Nitrite Positive H Urine Bilirubin Negative Urine Urobilinogen 4 H Ur Leukocyte Esterase 500 H Urine RBC 0-5 SEEN Urine WBC 0-5 SEEN Ur Squamous Epith Cells 0-5 SEEN Urine Bacteria 0 SEEN Urine Mucus 0 SEEN <Dr. Jesus Mahoney, DO - Last Filed: 03/17/22 21:38> [facility] MDM Narrative Medical decision making narrative: Patient has been given Toradol, Zofran, and IV fluids. Attending note: Patient seen and evaluated with vocational adviser. I perform my own [id number] evaluation. I agree with the plan of work-up. 2 days suprapubic tenderness rating to her back with nausea. Denies fevers. Urine frequency. On Depo shots. History of appendectomy and cholecystectomy. Denies any ovarian cysts history. Denies any abnormal vaginal discharge or bleeding. Exam alert nontoxic patient. There is mild suprapubic tenderness. There is no guarding or rebound. Laboratory studies normal white count normal lipase creatinine 1.07. Urine did note signs of infection. She is treated with antiemetics fluids and Toradol. Improvement of symptoms. She started on antibiotics for UTI. Tolerating oral intake. Outpatient follow-up. Lab Data Labs: Laboratory Results - last 24 hr 03/17/22 03/17/22 03/17/22 18:30 18:30 18:30 WBC 5.7 RBC 4.74 Hgb 14.6 Hct 44.1 MCV 93.0 MCH 30.8 MCHC 33.1 RDW Std Deviation 41.1 RDW Coeff of [place] 11.9 Plt Count 321 MPV 9.5 Immature Gran % (Auto) 0.000 Neut % (Auto) 63.3 Lymph % (Auto) 24.1 [place] % (Auto) 9.1 Eos % (Auto) 2.3 Baso % (Auto) 1.2 H Absolute Neuts (auto) 3.6 Absolute Lymphs (auto) 1.38 Nucleated RBC % 0 Sodium 137 Potassium 5.0 Chloride 105 Carbon Dioxide 26.0 Anion Gap 6 BUN 11 Creatinine 1.07 H Estim Creat Clear Calc 74.08 Est GFR (MDRD) Af Amer 77 Est GFR (MDRD) Non-Af 63 BUN/Creatinine Ratio 10.3 Glucose 91 Calcium 8.9 Total Bilirubin 0.70 AST 48 H ALT 53 Alkaline Phosphatase 63 Total Protein 7.5 Albumin 3.8 Globulin 3.7 Albumin/Globulin Ratio 1.0 Lipase 86 Serum , Qual NEGATIVE Urine Color Urine Clarity Urine pH Ur Specific [place] Urine Protein Urine Glucose (UA) Urine Ketones Urine Occult Blood Urine Nitrite Urine Bilirubin Urine Urobilinogen Ur Leukocyte Esterase Urine RBC Urine WBC Ur Squamous Epith Cells Urine Bacteria Urine Mucus 03/17/22 18:40 WBC RBC Hgb Hct MCV MCH MCHC RDW Std Deviation RDW Coeff of [place] Plt Count MPV Immature Gran % (Auto) Neut % (Auto) Lymph % (Auto) [place] % (Auto) Eos % (Auto) Baso % (Auto) Absolute Neuts (auto) Absolute Lymphs (auto) Nucleated RBC % Sodium Potassium Chloride Carbon Dioxide Anion Gap BUN Creatinine Estim Creat Clear Calc Est GFR (MDRD) Af Amer Est GFR (MDRD) Non-Af BUN/Creatinine Ratio Glucose Calcium Total Bilirubin AST ALT Alkaline Phosphatase Total Protein Albumin Globulin Albumin/Globulin Ratio Lipase Serum , Qual Urine Color Yellow Urine Clarity Clear Urine pH 8.0 Ur Specific [place] 1.015 Urine Protein 30 H Urine Glucose (UA) Normal Urine Ketones Negative Urine Occult Blood Negative Urine Nitrite Positive H Urine Bilirubin Negative Urine Urobilinogen 4 H Ur Leukocyte Esterase 500 H Urine RBC 0-5 SEEN Urine WBC 0-5 SEEN Ur Squamous Epith Cells 0-5 SEEN Urine Bacteria 0 SEEN Urine Mucus 0 SEEN Discharge Plan Triage Chief Complaint: Abd Pain ED Midlevel Provider: Molly Reyes ED Provider: Jesus Mahoney Dx/Rx/DC Orders Clinical Impression: Nausea, Abdominal pain, UTI (urinary tract infection) Instructions: ED Cystitis Female Adult Prescriptions: New nitrofurantoin macrocrystal 100 mg capsule 100 mg PO BID 5 Days Qty: 10 0RF Rx Instructions: must administer with a meal/food ondansetron 4 mg tablet,disintegrating 4 mg PO Q8H PRN (Reason: nausea and vomiting) Qty: 10 0RF No Action loratadine 10 mg capsule 10 mg PO DAILY Qty: 90 2RF cariprazine 1.5 mg capsule 3 mg PO DAILY lamotrigine [Lamictal] 25 mg tablet 25 mg PO DAILY trazodone 50 mg tablet 50 mg PO QHS PRN (Reason: Sleep) fluoxetine 20 mg tablet 20 mg PO DAILY methocarbamol 500 mg tablet 500 mg PO TID PRN (Reason: muscle spasm) Qty: 90 0RF lidocaine 5 % adhesive patch,medicated 2 patch TOPICAL DAILY Qty: 60 3RF Rx Instructions: leave on most painful area for up to 12 hrs benzonatate 200 mg capsule 200 mg PO TID PRN (Reason: cough) Qty: 20 0RF valacyclovir 500 mg tablet 500 mg PO DAILY (DME) blood pressure monitor Kit See Rx Instructions .ROUTE .MEDSUPPLY Qty: 1 0RF Rx Instructions: Check blood pressure daily for hypertension I10 Symbicort 160-4.5 mcg/actuation HFA aerosol inhaler 2 puff INHALATION BID Qty: 10.2 3RF albuterol sulfate [ProAir HFA] 90 mcg/actuation HFA aerosol inhaler 1 - 2 puff inhalation Q6H PRN (Reason: shortness of breath or wheezing) Qty: 8.5 2RF sumatriptan succinate 25 mg tablet See Rx Instructions PO .COMPLEX Qty: 14 2RF Rx Instructions: take 1 tab at onset of headache; if no relief may repeat 1 tab in 2hr; max = 4 tabs/day (24hr) PO acetaminophen 500 mg tablet 500 mg PO Q6H PRN (Reason: fever or pain) Qty: 60 1RF ibuprofen 800 mg tablet 800 mg PO Q8H PRN (Reason: pain) Qty: 60 1RF gabapentin 400 mg capsule 400 mg PO Q8H Qty: 90 2RF Primary Care Provider: Navi Kemp Referrals: Navi Kemp MD [Primary Care Provider] - 1 Week if not improving Activity Restrictions/Additional Instructions: Seek medical attention if any new or worsening of symptoms. Disposition Disposition: Home, Self Care Discharge Date/Time: 03/17/22 20:57
[2022-03-17 18:41] LABS: Absolute Lymphocyte Count 1.38 X10^3/uL (0.83-4.51); Absolute Neutrophil Count 3.6 X10^3/uL (2.0-7.7); Basophil# 0.07 X10^3/uL; Basophil% 1.2 % (0-1); Eosinophil# 0.13 X10^3/uL; Eosinophils% 2.3 % (0-5); Hematocrit 44.1 % (37-47); Hemoglobin 14.6 g/dL (12.0-15.0); Lymphocyte # 1.38 X10^3/ul (0.83-4.51); Lymphocyte % 24.1 % (19-41); Mean Corp Hgb Conc 33.1 g/dL (32-36); Mean Corpuscular Hgb 30.8 pg (27.0-32.0); Mean Platelet Vol. 9.5 fl (6.2-12.0); Monocyte# 0.52 X10^3/uL; Monocyte% 9.1 % (0-10); NRBC Flagged by Analyzer 0 % (0-5); Neutrophil # 3.63 X10^3/uL (2.7-7.7); Neutrophil % 63.3 % (47-70); Platelet Count 321 K/mm3 (150-450); RBC Distribution Width CV 11.9 % (11.6-14.6); RBC Distribution Width SD 41.1 fl (35.1-43.9); Red Blood Count 4.74 M/mm3 (4.2-5.4); White Blood Count 5.7 K/mm3 (4.4-11.0)
[2022-03-17] MEDS: Ketorolac 15 MG/ML Vial IV (18:46)
[2022-03-17] MEDS: 0.9% Normal Saline 1,000 ML 999 ML IV (18:46)
[2022-03-17] MEDS: Ondansetron 4 MG/2 ML Vial IV (18:46)
[2022-03-17 18:48] LABS: Bacteria 0 SEEN /hpf (None Seen); Color, Urine Yellow (Yellow); Glucose, Dipstick Normal (Normal); Ketone-Dipstick Negative (Negative); Leukocyte Esterase-Dipstick 500 /ul (Negative); Mucous, Urine 0 SEEN /hpf (<or=2+); Nitrite-Dipstick Positive (Negative); Occult Blood-Urine Negative /ul (Negative); Protein-Dipstick 30 mg/dl (Negative); Specific Gravity, Urine 1.015 (1.002-1.030); Urine Bilirubin Dipstick Negative (Negative); Urine Clarity Clear (Clear); Urine Urobilinogen 4 mg/dl (Normal)
[2022-03-17 18:50] LABS: Internal QC Validated? YES +Cl - CLEAR BKGD; Pregnancy, Serum, hCG Quali. NEGATIVE Negative
[2022-03-17 19:06] LABS: AST(SGOT) 48 U/L (15-37); Alanine Aminotransfer ALT/SGPT 53 U/L (13-56); Albumin, Serum 3.8 g/dL (3.2-5.0); Alkaline Phosphatase 63 U/L (45-117); Anion Gap 6 (5-15); BUN 11 mg/dL (7-18); BUN/Creat Ratio 10.3 RATIO (10-20); Calcium,Total 8.9 mg/dL (8.5-10.1); Chloride 105 mmol/L (98-107); Creatinine, Serum 1.07 mg/dL (0.55-1.02); EST Glomerular Filtration Rate 63 mL/min (>60); Est Glom Filt Rate - Afr Amer 77 mL/min (>60); Estimated Creatinine Clearance 74.08 ml/min; Globulin 3.7 g/dL (2.2-4.2); Glucose 91 mg/dL (74-106); Lipase 86 U/L (73-393); Protein, Total 7.5 g/dL (6.4-8.2); Sodium Level 137 mmol/L (136-145)
[2022-03-17 19:07] LABS: Red Blood Cells-Urine 0-5 SEEN /hpf (0-5); Squamous Epithelial Cells - UA 0-5 SEEN /hpf (5-10); White Blood Cells 0-5 SEEN /hpf (0-5)
[2022-03-17] MEDS: Nitrofurantoin Macrocrystals 100 MG Capsule PO (20:31)
[2022-03-17 20:57] VITALS: PULSE 84; RESP 16; O2SAT 97
== END 2022-03-17 20:57 | disposition home or self-care (01) ==
PROVIDERS: Physician Assistant; Emergency Provider Emergency Medicine; PCP Internal Medicine; Visit Provider Emergency Medicine
DX: R11.0 Nausea (principal); R10.30 Lower abdominal pain, unspecified; N39.0 Urinary tract infection, site not specified; F17.210 Nicotine dependence, cigarettes, uncomplicated
CPT/HCPCS: 80053; 81001; 83690; 84703; 85025; 96361; 96374; 96375; 99283; J7030; A4216; J2405

== ENCOUNTER 2022-03-20 17:11 | Emergency (ER) | payer MEDICAID, SELFPAY ==
[2022-03-20 17:13] VITALS: BP 113/65; PULSE 81; RESP 16; TEMP 36.9; O2SAT 96; BMI 26.9
[2022-03-20 17:28] LABS: Mucous, Urine 0 SEEN /hpf (<or=2+)
[2022-03-20 17:35] LABS: Color, Urine Amber (Yellow); Glucose, Dipstick Normal (Normal); Ketone-Dipstick 5 mg/dl (Negative); Leukocyte Esterase-Dipstick 500 /ul (Negative); Nitrite-Dipstick Positive (Negative); Occult Blood-Urine 10 /ul (Negative); Protein-Dipstick 15 mg/dl (Negative); Urine Clarity Sl. Cloudy (Clear); Urine Urobilinogen 8 mg/dl (Normal); Urine pH 6.5 (5.0 - 8.0)
[2022-03-20 17:36] LABS: Urine Bilirubin Dipstick 6 mg/dL (Negative)
[2022-03-20 17:43] LABS: Bacteria 1+ /hpf (None Seen); Squamous Epithelial Cells - UA 0-5 SEEN /hpf (5-10); White Blood Cells 5-10 SEEN /hpf (0-5)
[2022-03-20 17:44] LABS: Red Blood Cells-Urine 0-5 SEEN /hpf (0-5)
[2022-03-20 17:45] LABS: Internal QC Validated? YES +Cl - CLEAR BKGD; Pregnancy, Urine Negative Negative
--- NOTE | 2022-03-20 18:46 | EDS_ITS ---
HPI HPI - Female History of Present Illness Chief Complaint: Complaint Narrative Narrative: Patient was diagnosed with a UTI a few days ago, she has been taking her medication but still has similar symptoms. She has some suprapubic discomfort, dysuria and hematuria. She has no flank pain. No fevers or chills. She does have back pain but this is similar to her chronic back pain that is midline. She is denying any dyspareunia or vaginal discharge. She is denying any possibility of an STD. [facility] Medical History Acute maxillary sinusitis, unspecified Alcohol abuse Anxiety and depression Asthma Back problem Bee sting Bipolar 1 disorder Bone fracture Chronic bronchitis Chronic headaches Chronic low back pain Chronic neck pain Contact with and (suspected) exposure to other viral communicable diseases Drug abuse Encounter for screening for COVID-19 GERD (gastroesophageal reflux disease) Hearing loss in left ear Hx of emotional problems Left ankle sprain Lumbar radiculopathy Pneumonia PTSD (post-traumatic stress disorder) Right elbow pain Seasonal allergies URI (upper respiratory infection) URI (upper respiratory infection) Vision problem Home Medications blood pressure monitor #1 ea 10/29/19 [Rx Last Taken Unknown] loratadine 10 mg capsule 10 mg PO DAILY #90 caps 02/17/20 [Rx Last Taken Unknown] cariprazine 1.5 mg capsule 3 mg PO DAILY 03/25/20 [History Last Taken Unknown] lamotrigine 25 mg tablet (Lamictal) 25 mg PO DAILY 03/25/20 [History Last Taken Unknown] trazodone 50 mg tablet 50 mg PO QHS PRN Sleep 03/25/20 [History Last Taken Unknown] valacyclovir 500 mg tablet 500 mg PO DAILY 11/05/20 [History Last Taken Unknown] budesonide-formoterol HFA 160 mcg-4.5 mcg/actuation aerosol inhaler (Symbicort) 2 puff inhalation BID #10.2 grams 12/16/20 [Rx Last Taken Unknown] albuterol sulfate 90 mcg/actuation aerosol inhaler (ProAir HFA) 1 - 2 puff inhalation Q6H PRN shortness of breath or wheezing #8.5 grams 08/24/21 [Rx Last Taken Unknown] fluoxetine 20 mg tablet 20 mg PO DAILY 10/12/21 [History Last Taken Unknown] sumatriptan succinate 25 mg tablet See Rx Instructions PO .COMPLEX migraine #14 tabs 11/09/21 [Rx Last Taken Unknown] acetaminophen 500 mg tablet 500 mg PO Q6H PRN fever or pain #60 tabs 12/08/21 [Rx Last Taken Unknown] lidocaine 5 % topical patch 2 patch topical DAILY #60 ea 12/09/21 [Rx Last Taken Unknown] methocarbamol 500 mg tablet 500 mg PO TID PRN muscle spasm #90 tabs 12/09/21 [Rx Last Taken Unknown] ibuprofen 800 mg tablet 800 mg PO Q8H PRN pain #60 tabs 02/10/22 [Rx Last Taken Unknown] gabapentin 400 mg capsule 400 mg PO Q8H #90 caps 02/14/22 [Rx Last Taken Unknown] benzonatate 200 mg capsule 200 mg PO TID PRN cough #20 caps 02/16/22 [Rx Last Taken Unknown] nitrofurantoin macrocrystal 100 mg capsule 100 mg PO BID cystitis 5 days #10 caps 03/17/22 [Rx Last Taken Unknown] ondansetron 4 mg disintegrating tablet 4 mg PO Q8H PRN nausea and vomiting #10 tabs 03/17/22 [Rx Last Taken Unknown] sulfamethoxazole 800 mg-trimethoprim 160 mg tablet (Bactrim DS) 1 tab PO BID #14 tabs 03/20/22 [Rx Last Taken Unknown] Allergy/AdvReac Type Severity Reaction Status Date / Time zinc oxide Allergy Unknown Verified 03/20/22 17:13 naproxen [From Naprosyn] AdvReac Nausea Verified 03/20/22 17:13 Family History Unknown Alcoholism Anxiety Asthma Depression Myocardial infarction Suicide attempt Other Cancer Surgical History History of cholecystectomy History of laparoscopic appendectomy History of oral surgery Social History Smoking Status: Current every day smoker tobacco type: cigarettes alcohol intake: former year quit: 2014 substance use type: 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, methamphetamine and other what type of physical activity do you participate in: yoga and weight training frequency: 3-4 times per week ROS ROS ED ROS Narrative Past medical history: Reviewed, includes chronic back pain, bipolar disorder, asthma, history of gallbladder disease status postcholecystectomy Medications: Reviewed Social history: Noncontributory Review of systems: All systems negative except as indicated General: No fever Neck: No neck pain Cardiovascular: No chest pain Respiratory: No shortness of breath or cough Gastrointestinal: Some suprapubic pain Genitourinary: As in HPI Musculoskeletal: Denies myalgias no difficulty with ambulation Skin: No rash Neurological: No memory loss, confusion or any focal weakness Psych: No recent behavioral changes Hematologic: No easy bleeding or easy bruising EXAM Physical Exam Narrative Exam Narrative: Physical exam General: Well nourished, Well developed, No Acute Distress Head: Normocephalic, Atraumatic Neck: Supple, Nontender, No lymphadenopathy Cardiovascular: Regular rate, Regular rhythm Respiratory: No distress, CTA bilaterally Abdomen: Soft, some slight suprapubic pain : Deferred Back: Nontender, Normal Inspection. Some bilateral CVA tenderness Extremities: Nontender, No edema Skin: Normal color, No rash Neurological: Alert, Normal Strength, Normal Sensation Psychological: Normal affect Const Vital Signs: 03/20/22 17:13 Temperature 98.4 F Temperature Source Temporal Pulse Rate 81 Respiratory Rate 16 Blood Pressure 113/65 Blood Pressure Mean 81 Pulse Ox 96 Oxygen Delivery Method Room Air MDM MDM MDM Narrative Medical decision making narrative: Patient again has a UTI, I will culture the urine and change her antibiotics if anything worsens, she has fevers chills or anything like that she needs to return Lab Data Labs: Laboratory Results - last 24 hr 03/20/22 17:20 Urine Color Angela Urine Clarity Sl. Cloudy Urine pH 6.5 Ur Specific [place] 1.020 Urine Protein 15 H Urine Glucose (UA) Normal Urine Ketones 5 H Urine Occult Blood 10 H Urine Nitrite Positive H Urine Bilirubin 6 H Urine Urobilinogen 8 H Ur Leukocyte Esterase 500 H Urine RBC 0-5 SEEN Urine WBC 5-10 SEEN Ur Squamous Epith Cells 0-5 SEEN Urine Bacteria 1+ Urine Mucus 0 SEEN Urine Test Negative Discharge Plan Triage Chief Complaint: Complaint ED Provider: Sunil Shea Dx/Rx/DC Orders Clinical Impression: Acute flank pain, UTI (urinary tract infection) Instructions: Urinary Tract Infections in Women Prescriptions: New sulfamethoxazole-trimethoprim [Bactrim DS] 800-160 mg tablet 1 tab PO BID Qty: 14 0RF No Action loratadine 10 mg capsule 10 mg PO DAILY Qty: 90 2RF cariprazine 1.5 mg capsule 3 mg PO DAILY lamotrigine [Lamictal] 25 mg tablet 25 mg PO DAILY trazodone 50 mg tablet 50 mg PO QHS PRN (Reason: Sleep) fluoxetine 20 mg tablet 20 mg PO DAILY methocarbamol 500 mg tablet 500 mg PO TID PRN (Reason: muscle spasm) Qty: 90 0RF lidocaine 5 % adhesive patch,medicated 2 patch TOPICAL DAILY Qty: 60 3RF Rx Instructions: leave on most painful area for up to 12 hrs benzonatate 200 mg capsule 200 mg PO TID PRN (Reason: cough) Qty: 20 0RF valacyclovir 500 mg tablet 500 mg PO DAILY nitrofurantoin macrocrystal 100 mg capsule 100 mg PO BID 5 Days Qty: 10 0RF Rx Instructions: must administer with a meal/food ondansetron 4 mg tablet,disintegrating 4 mg PO Q8H PRN (Reason: nausea and vomiting) Qty: 10 0RF (DME) blood pressure monitor Kit See Rx Instructions .ROUTE .MEDSUPPLY Qty: 1 0RF Rx Instructions: Check blood pressure daily for hypertension I10 Symbicort 160-4.5 mcg/actuation HFA aerosol inhaler 2 puff INHALATION BID Qty: 10.2 3RF albuterol sulfate [ProAir HFA] 90 mcg/actuation HFA aerosol inhaler 1 - 2 puff inhalation Q6H PRN (Reason: shortness of breath or wheezing) Qty: 8.5 2RF sumatriptan succinate 25 mg tablet See Rx Instructions PO .COMPLEX Qty: 14 2RF Rx Instructions: take 1 tab at onset of headache; if no relief may repeat 1 tab in 2hr; max = 4 tabs/day (24hr) PO acetaminophen 500 mg tablet 500 mg PO Q6H PRN (Reason: fever or pain) Qty: 60 1RF ibuprofen 800 mg tablet 800 mg PO Q8H PRN (Reason: pain) Qty: 60 1RF gabapentin 400 mg capsule 400 mg PO Q8H Qty: 90 2RF Primary Care Provider: Navi Kemp Referrals: Navi Kemp MD [Primary Care Provider] - 3-5 Days Activity Restrictions/Additional Instructions: Stop the nitrofurantoin. Start the Bactrim. Disposition Disposition: Home, Self Care
[2022-03-20] MEDS: Smz/Tmp Ds Tablet 1 TABLET PO (18:56)
== END 2022-03-20 19:00 | disposition home or self-care (01) ==
LOC: ED 18:58
PROVIDERS: Emergency Provider Emergency Medicine; PCP Internal Medicine; Visit Provider Emergency Medicine
DX: N39.0 Urinary tract infection, site not specified (principal); R31.9 Hematuria, unspecified; F17.210 Nicotine dependence, cigarettes, uncomplicated; R30.0 Dysuria; J45.909 Unspecified asthma, uncomplicated; R10.9 Unspecified abdominal pain
CPT/HCPCS: 81001; 81025; 87086; 87088; 99283

== ENCOUNTER 2022-04-21 11:10 | Emergency (ER) | payer MEDICAID, SELFPAY ==
[2022-04-21 11:11] VITALS: BP 120/62; PULSE 90; RESP 16; TEMP 36.6; O2SAT 97; BMI 25.8
--- NOTE | 2022-04-21 12:01 | EX.ED.VIS.HA ---
HPI History of Present Illness Chief Complaint: Headache Narrative Narrative: 31-year-old female with history of migraine presenting with headache. She states its typical of her migraine headache. It started last night. She states that she supposed to take sumatriptan at the start of the headache but did not and try to take it this morning and I did not improve. Patient admits to photophobia and phonophobia. She has nausea as well as vomiting. He does not have a fever, chills, body aches. She states she had influenza A last week and recovered prior to this occurring. She is not having any neck pain. [facility] Medical History Acute maxillary sinusitis, unspecified Alcohol abuse Anxiety and depression Asthma Back problem Bee sting Bipolar 1 disorder Bone fracture Chronic bronchitis Chronic headaches Chronic low back pain Chronic neck pain Contact with and (suspected) exposure to other viral communicable diseases Drug abuse Encounter for screening for COVID-19 GERD (gastroesophageal reflux disease) Hearing loss in left ear Hx of emotional problems Left ankle sprain Lumbar radiculopathy Pneumonia PTSD (post-traumatic stress disorder) Right elbow pain Seasonal allergies URI (upper respiratory infection) URI (upper respiratory infection) Vision problem Home Medications blood pressure monitor #1 ea 10/29/19 [Rx Last Taken Unknown] cariprazine 1.5 mg capsule 3 mg PO DAILY 03/25/20 [History Last Taken Unknown] lamotrigine 25 mg tablet (Lamictal) 25 mg PO DAILY 03/25/20 [History Last Taken Unknown] trazodone 50 mg tablet 50 mg PO QHS PRN Sleep 03/25/20 [History Last Taken Unknown] valacyclovir 500 mg tablet 500 mg PO DAILY 11/05/20 [History Last Taken Unknown] budesonide-formoterol HFA 160 mcg-4.5 mcg/actuation aerosol inhaler (Symbicort) 2 puff inhalation BID #10.2 grams 12/16/20 [Rx Last Taken Unknown] albuterol sulfate 90 mcg/actuation aerosol inhaler (ProAir HFA) 1 - 2 puff inhalation Q6H PRN shortness of breath or wheezing #8.5 grams 08/24/21 [Rx Last Taken Unknown] fluoxetine 20 mg tablet 20 mg PO DAILY 10/12/21 [History Last Taken Unknown] sumatriptan succinate 25 mg tablet See Rx Instructions PO .COMPLEX migraine #14 tabs 11/09/21 [Rx Last Taken Unknown] acetaminophen 500 mg tablet 500 mg PO Q6H PRN fever or pain #60 tabs 12/08/21 [Rx Last Taken Unknown] lidocaine 5 % topical patch 2 patch topical DAILY #60 ea 12/09/21 [Rx Last Taken Unknown] methocarbamol 500 mg tablet 500 mg PO TID PRN muscle spasm #90 tabs 12/09/21 [Rx Last Taken Unknown] ibuprofen 800 mg tablet 800 mg PO Q8H PRN pain #60 tabs 02/10/22 [Rx Last Taken Unknown] gabapentin 400 mg capsule 400 mg PO Q8H #90 caps 02/14/22 [Rx Last Taken Unknown] benzonatate 200 mg capsule 200 mg PO TID PRN cough #20 caps 02/16/22 [Rx Last Taken Unknown] nitrofurantoin macrocrystal 100 mg capsule 100 mg PO BID cystitis 5 days #10 caps 03/17/22 [Rx Last Taken Unknown] ondansetron 4 mg disintegrating tablet 4 mg PO Q8H PRN nausea and vomiting #10 tabs 03/17/22 [Rx Last Taken Unknown] sulfamethoxazole 800 mg-trimethoprim 160 mg tablet (Bactrim DS) 1 tab PO BID #14 tabs 03/20/22 [Rx Last Taken Unknown] phenazopyridine 200 mg tablet (Pyridium) 200 mg PO Q8H PRN pain 6 doses #6 tabs 03/21/22 [Rx Last Taken Unknown] fluconazole 150 mg tablet 150 mg PO Q3D 2 doses #2 tabs 03/24/22 [Rx Last Taken Unknown] loratadine 10 mg capsule 10 mg PO DAILY #90 caps 04/10/22 [Rx Last Taken Unknown] Allergy/AdvReac Type Severity Reaction Status Date / Time zinc oxide Allergy Unknown Verified 04/21/22 11:13 naproxen [From Naprosyn] AdvReac Nausea Verified 04/21/22 11:13 Family History Unknown Alcoholism Anxiety Asthma Depression Myocardial infarction Suicide attempt Other Cancer Surgical History History of cholecystectomy History of laparoscopic appendectomy History of oral surgery Social History Smoking Status: Current every day smoker tobacco type: cigarettes alcohol intake: former year quit: 2014 substance use type: 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, methamphetamine and other what type of physical activity do you participate in: yoga and weight training frequency: 3-4 times per week ROS ROS ED Constitutional Constitutional ED: Denies chills or fever(s) Eyes Eyes: Denies change in vision or diplopia ENT ENT ED: Denies rhinorrhea or sore throat Cardiovascular Cardiovascular: Denies chest pain or palpitations Respiratory/Chest Respiratory/Chest: Denies cough or dyspnea Gastrointestinal Gastrointestinal: Reports nausea and vomiting; Denies abdominal pain Genitourinary Genitourinary ED: Denies dysuria or hematuria Musculoskeletal Musculoskeletal: Denies arthralgias Integumentary Denies abscess or Abrasions Neurologic Neurologic: Reports headache(s); Denies paresthesias or weakness Psychiatric Psychiatric: Denies anxiety or depression EXAM Physical Exam Const Vital Signs: 04/21/22 11:11 Temperature 97.8 F Temperature Source Temporal Pulse Rate 90 Respiratory Rate 16 Blood Pressure 120/62 Blood Pressure Mean 81 Pulse Ox 97 Oxygen Delivery Method Room Air Positive well nourished General Appearance ED: NAD HEENT Reports normocephalic and TM's clear atraumatic Tympanic Membrane ED: Yes TM's clear Eyes PERRL and EOMs intact bilaterally General Eye ED: Negative for pale conjunctiva or scleral icterus Resp normal respiratory effort and clear to auscultation bilaterally Cardio regular rate and regular rhythm GI non-tender Back/Spine no CVA tenderness Neuro oriented x3 and CN's II-XII intact bilaterally Neuro Narrative: No focal neurological deficits or lateralizing signs or symptoms. Sensorium / Orientation: awake and alert Psych mental status grossly normal Mood & Affect: Negative for depressed or anxious MDM MDM MDM Narrative Medical decision making narrative: Patient presenting with headache typical of her migraines. She did not take her sumatriptan when her headache started and now wants worsening. Neurologic exam is normal. Vital signs are stable she is afebrile. She is treated with Reglan, Benadryl, Toradol. On reevaluation at 1 PM she is feeling much improved and wishes to go home. At this point I do not believe she needs any blood work for further imaging. Return precautions were discussed. Impression: 1. Headache 2. Nausea/vomiting Lab Data Attestation: I reviewed the patient's lab results. Discharge Plan Triage Chief Complaint: Headache ED Provider: Darryn Mares Dx/Rx/DC Orders Prescriptions: No Action cariprazine 1.5 mg capsule 3 mg PO DAILY lamotrigine [Lamictal] 25 mg tablet 25 mg PO DAILY trazodone 50 mg tablet 50 mg PO QHS PRN (Reason: Sleep) fluoxetine 20 mg tablet 20 mg PO DAILY methocarbamol 500 mg tablet 500 mg PO TID PRN (Reason: muscle spasm) Qty: 90 0RF lidocaine 5 % adhesive patch,medicated 2 patch TOPICAL DAILY Qty: 60 3RF Rx Instructions: leave on most painful area for up to 12 hrs benzonatate 200 mg capsule 200 mg PO TID PRN (Reason: cough) Qty: 20 0RF phenazopyridine [Pyridium] 200 mg tablet 200 mg PO Q8H PRN (Reason: pain) Qty: 6 1RF valacyclovir 500 mg tablet 500 mg PO DAILY nitrofurantoin macrocrystal 100 mg capsule 100 mg PO BID 5 Days Qty: 10 0RF Rx Instructions: must administer with a meal/food ondansetron 4 mg tablet,disintegrating 4 mg PO Q8H PRN (Reason: nausea and vomiting) Qty: 10 0RF sulfamethoxazole-trimethoprim [Bactrim DS] 800-160 mg tablet 1 tab PO BID Qty: 14 0RF (DME) blood pressure monitor Kit See Rx Instructions .ROUTE .MEDSUPPLY Qty: 1 0RF Rx Instructions: Check blood pressure daily for hypertension I10 Symbicort 160-4.5 mcg/actuation HFA aerosol inhaler 2 puff INHALATION BID Qty: 10.2 3RF albuterol sulfate [ProAir HFA] 90 mcg/actuation HFA aerosol inhaler 1 - 2 puff inhalation Q6H PRN (Reason: shortness of breath or wheezing) Qty: 8.5 2RF sumatriptan succinate 25 mg tablet See Rx Instructions PO .COMPLEX Qty: 14 2RF Rx Instructions: take 1 tab at onset of headache; if no relief may repeat 1 tab in 2hr; max = 4 tabs/day (24hr) PO acetaminophen 500 mg tablet 500 mg PO Q6H PRN (Reason: fever or pain) Qty: 60 1RF ibuprofen 800 mg tablet 800 mg PO Q8H PRN (Reason: pain) Qty: 60 1RF gabapentin 400 mg capsule 400 mg PO Q8H Qty: 90 2RF fluconazole 150 mg tablet 150 mg PO Q3D Qty: 2 0RF Rx Instructions: may repeat second dose 72 hrs after first dose if symptoms persist loratadine 10 mg capsule 10 mg PO DAILY Qty: 90 2RF Primary Care Provider: Navi Kemp Referrals: Navi Kemp MD [Primary Care Provider] -
[2022-04-21] MEDS: 0.9% Normal Saline 1,000 ML 999 ML IV (12:44)
[2022-04-21] MEDS: Ketorolac 15 MG/ML Vial IV (12:44)
[2022-04-21] MEDS: Metoclopramide 10 MG/2 ML Vial IV (12:45)
[2022-04-21] MEDS: DiphenhydrAMINE 50 MG/ML Syringe 25 MG IV (12:45)
== END 2022-04-21 13:03 | disposition home or self-care (01) ==
PROVIDERS: Emergency Provider Student in an Organized Health Care Education/Training Program; PCP Internal Medicine; Visit Provider Student in an Organized Health Care Education/Training Program
DX: R11.2 Nausea with vomiting, unspecified (principal); J42 Unspecified chronic bronchitis; R51.9 Headache, unspecified; F17.210 Nicotine dependence, cigarettes, uncomplicated; Z79.899 Other long term (current) drug therapy
CPT/HCPCS: 96361; 96374; 96375; 99283; J7030; A4216

== ENCOUNTER 2022-05-06 14:15 | Emergency (ER) | payer MEDICAID, SELFPAY ==
[2022-05-06 14:16] VITALS: BP 126/75; PULSE 90; RESP 14; TEMP 36.2; O2SAT 96; BMI 26.5
--- NOTE | 2022-05-06 14:24 | EDS_ITS ---
HPI HPI - URI History of Present Illness Chief Complaint: Sore Throat Informant: patient Onset/Context/Timing Onset: Yesterday Context: Gradual Onset Timing: Continuous Quality: Burning Location: Throat Worsened by: Swallowing Relieved by: - (Nothing) Associated Symptoms Associated Symptoms: Positive for Headache and Productive Cough; Negative for Nasal Congestion, Sinus Pressure, Myalgias, Nausea, Vomiting, Diarrhea, Shortness of Breath, Chest Pain, Nonproductive cough or Hemoptysis Narrative Narrative: Patient presents with sore throat that began yesterday. Patient states it is gradually gotten worse. Patient states that today she looked in her throat and noted some white spots in the back of her throat. Patient describes her pain as burning sensation. Patient states it is localized to her throat. Patient states it is worse with swallowing and yawning. Patient states nothing makes it better. Patient admits to a mild headache. Patient admits to a cough with some sputum production. Patient states she has not looked at the color of the sputum. Patient denies any fevers or chills. [facility] ED Constitutional Constitutional ED: Denies chills or fever(s) Eyes Eyes: Denies blurry vision or change in vision ENT ENT ED: Reports rhinorrhea and sore throat Cardiovascular Cardiovascular: Denies chest pain or palpitations Respiratory/Chest Respiratory/Chest: Reports cough; Denies dyspnea Gastrointestinal Gastrointestinal: Denies nausea or vomiting Genitourinary Genitourinary ED: Denies dysuria or hematuria Musculoskeletal Musculoskeletal: Denies back pain or neck pain Integumentary Denies abscess or rash Neurologic Neurologic: Denies headache(s) or weakness Allergic/Immunologic Allergic/Immunologic ED: Denies mouth swelling or urticaria [facility] Medical History Acute maxillary sinusitis, unspecified Alcohol abuse Anxiety and depression Asthma Back problem Bee sting Bipolar 1 disorder Bone fracture Chronic bronchitis Chronic headaches Chronic low back pain Chronic neck pain Contact with and (suspected) exposure to other viral communicable diseases Drug abuse Encounter for screening for COVID-19 GERD (gastroesophageal reflux disease) Hearing loss in left ear Hx of emotional problems Left ankle sprain Lumbar radiculopathy Pneumonia PTSD (post-traumatic stress disorder) Right elbow pain Seasonal allergies URI (upper respiratory infection) URI (upper respiratory infection) Vision problem Home Medications blood pressure monitor #1 ea 10/29/19 [Rx Last Taken Unknown] cariprazine 1.5 mg capsule 3 mg PO DAILY 03/25/20 [History Last Taken Unknown] lamotrigine 25 mg tablet (Lamictal) 25 mg PO DAILY 03/25/20 [History Last Taken Unknown] trazodone 50 mg tablet 50 mg PO QHS PRN Sleep 03/25/20 [History Last Taken Unknown] valacyclovir 500 mg tablet 500 mg PO DAILY 11/05/20 [History Last Taken Unknown] budesonide-formoterol HFA 160 mcg-4.5 mcg/actuation aerosol inhaler (Symbicort) 2 puff inhalation BID #10.2 grams 12/16/20 [Rx Last Taken Unknown] albuterol sulfate 90 mcg/actuation aerosol inhaler (ProAir HFA) 1 - 2 puff inhalation Q6H PRN shortness of breath or wheezing #8.5 grams 08/24/21 [Rx Last Taken Unknown] fluoxetine 20 mg tablet 40 mg PO DAILY 10/12/21 [History Last Taken Unknown] sumatriptan succinate 25 mg tablet See Rx Instructions PO .COMPLEX migraine #14 tabs 11/09/21 [Rx Last Taken Unknown] acetaminophen 500 mg tablet 500 mg PO Q6H PRN fever or pain #60 tabs 12/08/21 [Rx Last Taken Unknown] lidocaine 5 % topical patch 2 patch topical DAILY #60 ea 12/09/21 [Rx Last Taken Unknown] methocarbamol 500 mg tablet 500 mg PO TID PRN muscle spasm #90 tabs 12/09/21 [Rx Last Taken Unknown] ibuprofen 800 mg tablet 800 mg PO Q8H PRN pain #60 tabs 02/10/22 [Rx Last Taken Unknown] gabapentin 400 mg capsule 400 mg PO Q8H #90 caps 02/14/22 [Rx Last Taken Unknown] benzonatate 200 mg capsule 200 mg PO TID PRN cough #20 caps 02/16/22 [Rx Last Taken Unknown] nitrofurantoin macrocrystal 100 mg capsule 100 mg PO BID cystitis 5 days #10 caps 03/17/22 [Rx Last Taken Unknown] sulfamethoxazole 800 mg-trimethoprim 160 mg tablet (Bactrim DS) 1 tab PO BID #14 tabs 03/20/22 [Rx Last Taken Unknown] phenazopyridine 200 mg tablet (Pyridium) 200 mg PO Q8H PRN pain 6 doses #6 tabs 03/21/22 [Rx Last Taken Unknown] fluconazole 150 mg tablet 150 mg PO Q3D 2 doses #2 tabs 03/24/22 [Rx Last Taken Unknown] loratadine 10 mg capsule 10 mg PO DAILY #90 caps 04/10/22 [Rx Last Taken Unknown] ondansetron 4 mg disintegrating tablet 4 mg PO Q8H PRN nausea and vomiting #10 tabs 04/21/22 [Rx Last Taken Unknown] Allergy/AdvReac Type Severity Reaction Status Date / Time zinc oxide Allergy Unknown Verified 05/06/22 14:16 naproxen [From Naprosyn] AdvReac Nausea Verified 05/06/22 14:16 Family History Unknown Alcoholism Anxiety Asthma Depression Myocardial infarction Suicide attempt Other Cancer Surgical History History of cholecystectomy History of laparoscopic appendectomy History of oral surgery Social History Smoking Status: Current every day smoker tobacco type: cigarettes and e- cigarettes alcohol intake: former year quit: 2014 substance use type: 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, methamphetamine and other what type of physical activity do you participate in: yoga and weight training frequency: 3-4 times per week EXAM Physical Exam Const Vital Signs: 05/06/22 14:16 05/06/22 14:23 Temperature 97.1 F L Temperature Source Temporal Pulse Rate 90 Respiratory Rate 14 Respiratory Effort Normal Non-Labored Respiratory Pattern Normal Blood Pressure 126/75 H Blood Pressure Mean 92 Pulse Ox 96 Oxygen Delivery Method Room Air Positive well nourished and well developed General Appearance ED: well developed and NAD HEENT Reports moist mucous membranes Throat: posterior oropharynx abnormal Positive for erythema Neck no lymphadenopathy, supple, no meningeal signs and no JVD Resp normal respiratory effort and clear to auscultation bilaterally Cardio Rate: regular rate Rhythm: regular rhythm Neuro oriented x3, CN's II-XII intact bilaterally and no sensory deficits noted Sensorium / Orientation: alert Motor Exam: strength 5/5 throughout Psych mental status grossly normal MDM MDM MDM Narrative Medical decision making narrative: Rapid strep was obtained and was negative. Patient was advised of her findings. Patient was advised that this is most likely a viral pharyngitis. Patient was instructed to drink plenty of fluids. Patient was instructed to take Tylenol or ibuprofen as needed for any fevers or pain. Patient was instructed to follow-up with her primary care physician in 5 to 7 days. Patient understood and was agreeable with the plan. All questions were answered. Discharge Plan Triage Chief Complaint: Sore Throat ED Provider: Kaleb Molina Dx/Rx/DC Orders Clinical Impression: Viral pharyngitis, Bipolar disorder Instructions: ED Pharyngitis, Viral Prescriptions: No Action cariprazine 1.5 mg capsule 3 mg PO DAILY lamotrigine [Lamictal] 25 mg tablet 25 mg PO DAILY trazodone 50 mg tablet 50 mg PO QHS PRN (Reason: Sleep) fluoxetine 20 mg tablet 40 mg PO DAILY methocarbamol 500 mg tablet 500 mg PO TID PRN (Reason: muscle spasm) Qty: 90 0RF lidocaine 5 % adhesive patch,medicated 2 patch TOPICAL DAILY Qty: 60 3RF Rx Instructions: leave on most painful area for up to 12 hrs benzonatate 200 mg capsule 200 mg PO TID PRN (Reason: cough) Qty: 20 0RF phenazopyridine [Pyridium] 200 mg tablet 200 mg PO Q8H PRN (Reason: pain) Qty: 6 1RF valacyclovir 500 mg tablet 500 mg PO DAILY nitrofurantoin macrocrystal 100 mg capsule 100 mg PO BID 5 Days Qty: 10 0RF Rx Instructions: must administer with a meal/food sulfamethoxazole-trimethoprim [Bactrim DS] 800-160 mg tablet 1 tab PO BID Qty: 14 0RF ondansetron 4 mg tablet,disintegrating 4 mg PO Q8H PRN (Reason: nausea and vomiting) Qty: 10 0RF (DME) blood pressure monitor Kit See Rx Instructions .ROUTE .MEDSUPPLY Qty: 1 0RF Rx Instructions: Check blood pressure daily for hypertension I10 Symbicort 160-4.5 mcg/actuation HFA aerosol inhaler 2 puff INHALATION BID Qty: 10.2 3RF albuterol sulfate [ProAir HFA] 90 mcg/actuation HFA aerosol inhaler 1 - 2 puff inhalation Q6H PRN (Reason: shortness of breath or wheezing) Qty: 8.5 2RF sumatriptan succinate 25 mg tablet See Rx Instructions PO .COMPLEX Qty: 14 2RF Rx Instructions: take 1 tab at onset of headache; if no relief may repeat 1 tab in 2hr; max = 4 tabs/day (24hr) PO acetaminophen 500 mg tablet 500 mg PO Q6H PRN (Reason: fever or pain) Qty: 60 1RF ibuprofen 800 mg tablet 800 mg PO Q8H PRN (Reason: pain) Qty: 60 1RF gabapentin 400 mg capsule 400 mg PO Q8H Qty: 90 2RF fluconazole 150 mg tablet 150 mg PO Q3D Qty: 2 0RF Rx Instructions: may repeat second dose 72 hrs after first dose if symptoms persist loratadine 10 mg capsule 10 mg PO DAILY Qty: 90 2RF Primary Care Provider: Navi Kemp Referrals: Navi Kemp MD [Primary Care Provider] - 5-7 Days Disposition Disposition: Home, Self Care
== END 2022-05-06 15:11 | disposition home or self-care (01) ==
PROVIDERS: Emergency Provider Emergency Medicine; PCP Internal Medicine; Visit Provider Emergency Medicine
DX: F31.9 Bipolar disorder, unspecified (principal); J02.8 Acute pharyngitis due to other specified organisms; F17.210 Nicotine dependence, cigarettes, uncomplicated; R51.9 Headache, unspecified; F17.290 Nicotine dependence, other tobacco product, uncomplicated
CPT/HCPCS: 87880; 99283; A4216

== ENCOUNTER 2022-06-10 18:31 | Emergency (ER) | payer MEDICAID, SELFPAY ==
[2022-06-10 18:32] VITALS: BP 129/90; PULSE 106; RESP 14; TEMP 36.1; O2SAT 97; BMI 27.1
--- NOTE | 2022-06-10 19:31 | ED.VIS.GI ---
HPI HPI - GI History of Present Illness Chief Complaint: Weakness Informant: patient Abdominal Pain/Flank Pain Onset: Today Context: Gradual Onset Timing: Continuous Quality: Cramping Location: Diffuse Current Severity: Moderate Maximum Severity: Moderate Worsened by: - (Vomiting) Relieved by: Nothing Nausea/Vomiting/Emesis GI Symptom: Positive for Nausea and Vomiting Onset: Today Quality: Positive for Nonbilious; Negative for Blood streaks, Coffee ground or Hematemesis Severity: Severe Diarrhea/Melena/Hematochezia GI Symptom: Positive for Diarrhea; Negative for Melena or Hematochezia Onset: Today Stool Quality: Positive for Watery Severity: Moderate Associated Symptoms Associated Symptoms: Positive for - (Decreased urination today but able to urinate); Negative for Dysuria, Frequency or Hematuria Narrative Narrative: Patient states she has had myalgias, chills, vomiting, diarrhea, followed by abdominal cramping on both sides of her mid abdomen basically all day today. No known sick contacts. She has not traveled out of the area. No suspicious food intake. No new medications. No known fevers but she has not checked. No blood in emesis or diarrhea. [facility] Medical History Acute maxillary sinusitis, unspecified Alcohol abuse Anxiety and depression Asthma Back problem Bee sting Bipolar 1 disorder Bone fracture Chronic bronchitis Chronic headaches Chronic low back pain Chronic neck pain Contact with and (suspected) exposure to other viral communicable diseases Drug abuse Encounter for screening for COVID-19 GERD (gastroesophageal reflux disease) Hearing loss in left ear Hx of emotional problems Left ankle sprain Lumbar radiculopathy Pneumonia PTSD (post-traumatic stress disorder) Right elbow pain Seasonal allergies URI (upper respiratory infection) URI (upper respiratory infection) Vision problem Home Medications blood pressure monitor #1 ea 10/29/19 [Rx Last Taken Unknown] cariprazine 1.5 mg capsule 3 mg PO DAILY 03/25/20 [History Last Taken Unknown] lamotrigine 25 mg tablet (Lamictal) 25 mg PO DAILY 03/25/20 [History Last Taken Unknown] trazodone 50 mg tablet 50 mg PO QHS PRN Sleep 03/25/20 [History Last Taken Unknown] valacyclovir 500 mg tablet 500 mg PO DAILY 11/05/20 [History Last Taken Unknown] budesonide-formoterol HFA 160 mcg-4.5 mcg/actuation aerosol inhaler (Symbicort) 2 puff inhalation BID #10.2 grams 12/16/20 [Rx Last Taken Unknown] albuterol sulfate 90 mcg/actuation aerosol inhaler (ProAir HFA) 1 - 2 puff inhalation Q6H PRN shortness of breath or wheezing #8.5 grams 08/24/21 [Rx Last Taken Unknown] fluoxetine 20 mg tablet 40 mg PO DAILY 10/12/21 [History Last Taken Unknown] sumatriptan succinate 25 mg tablet See Rx Instructions PO .COMPLEX migraine #14 tabs 11/09/21 [Rx Last Taken Unknown] acetaminophen 500 mg tablet 500 mg PO Q6H PRN fever or pain #60 tabs 12/08/21 [Rx Last Taken Unknown] lidocaine 5 % topical patch 2 patch topical DAILY #60 ea 12/09/21 [Rx Last Taken Unknown] methocarbamol 500 mg tablet 500 mg PO TID PRN muscle spasm #90 tabs 12/09/21 [Rx Last Taken Unknown] ibuprofen 800 mg tablet 800 mg PO Q8H PRN pain #60 tabs 02/10/22 [Rx Last Taken Unknown] gabapentin 400 mg capsule 400 mg PO Q8H #90 caps 02/14/22 [Rx Last Taken Unknown] loratadine 10 mg capsule 10 mg PO DAILY #90 caps 04/10/22 [Rx Last Taken Unknown] ondansetron 4 mg disintegrating tablet 4 mg PO Q8H PRN nausea and vomiting #10 tabs 04/21/22 [Rx Last Taken Unknown] rimegepant 75 mg disintegrating tablet (Nurtec ODT) 75 mg PO QDAY PRN migraine headache #14 tabs 05/18/22 [Rx Last Taken Unknown] ondansetron 4 mg disintegrating tablet 8 mg PO Q8H PRN PRN Nausea #20 tabs 06/10/22 [Rx Last Taken Unknown] Allergy/AdvReac Type Severity Reaction Status Date / Time zinc oxide Allergy Unknown Verified 06/10/22 18:32 naproxen [From Naprosyn] AdvReac Nausea Verified 06/10/22 18:32 Family History Unknown Alcoholism Anxiety Asthma Depression Myocardial infarction Suicide attempt Other Cancer Surgical History History of cholecystectomy History of laparoscopic appendectomy History of oral surgery Social History Smoking Status: Current every day smoker tobacco type: cigarettes and e-cigarettes alcohol intake: former year quit: 2014 substance use type: 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, methamphetamine and other what type of physical activity do you participate in: yoga and weight training frequency: 3-4 times per week ROS ROS ED Constitutional Constitutional ED: Reports chills, fatigue and malaise; Denies fever(s) Eyes Eyes: Denies change in vision or diplopia ENT ENT ED: Denies rhinorrhea or sore throat Cardiovascular Cardiovascular: Denies chest pain or palpitations Respiratory/Chest Respiratory/Chest: Denies cough or dyspnea Gastrointestinal Gastrointestinal: Reports abdominal pain, diarrhea, nausea and vomiting Genitourinary Genitourinary ED: Denies dysuria or hematuria Musculoskeletal Musculoskeletal: Reports myalgias; Denies back pain or neck pain Integumentary Denies abscess or rash Neurologic Neurologic: Denies headache(s), paresthesias or weakness Psychiatric Psychiatric: Denies anxiety or suicidal thoughts EXAM Physical Exam Const Vital Signs: 06/10/22 18:32 06/10/22 19:13 Temperature 97 F L Temperature Source Temporal Pulse Rate 106 H Respiratory Rate 14 Respiratory Effort Normal Non-Labored Respiratory Pattern Normal Blood Pressure 129/90 H Blood Pressure Mean 103 Pulse Ox 97 Oxygen Delivery Method Room Air Positive well nourished and well developed Constitutional Narrative: Well-appearing General Appearance ED: well developed and NAD HEENT Reports moist mucous membranes normocephalic and atraumatic Eyes PERRL and EOMs intact bilaterally Neck full ROM and supple Resp normal respiratory effort and clear to auscultation bilaterally Cardio regular rate, regular rhythm and no murmurs Cardio Narrative: Mildly tachycardic GI non-distended GI Narrative: Mild diffuse tenderness upper half of abdomen no lower abdominal tenderness. No guarding or rebound tenderness. No distention. Auscultation: normoactive bowel sounds Palpation: soft Back/Spine no CVA tenderness General Back: other FROM Extremity normal to inspection General Extremety ED: Negative for edema, pulses abnormal or tenderness General Extremity: Negative for edema or pulses abnormal Neuro oriented x3, CN's II-XII intact bilaterally and no sensory deficits noted Sensorium / Orientation: awake and alert Motor Exam: strength 5/5 throughout Skin no rashes or lesions noted and no wounds MDM MDM MDM Narrative Medical decision making narrative: Labs are unremarkable except for mild hypokalemia and some mild prerenal azotemia. She was treated with IV fluids, Zofran, and Toradol. She did feel better. I gave her a dose of potassium so I avoided dicyclomine for her cramping. She is tolerating oral fluids well, we will discharge her with a prescription for Zofran, viral gastroenteritis is high on the differential here. Do not think she needs advanced abdominal imaging at this time. Lab Data Attestation: I reviewed the patient's lab results. Labs: Laboratory Results - last 24 hr 06/10/22 06/10/22 06/10/22 19:25 19:25 19:25 WBC 6.0 RBC 5.19 Hgb 16.1 H Hct 46.6 MCV 89.8 MCH 31.0 MCHC 34.5 RDW Std Deviation 41.6 RDW Coeff of [place] 12.5 Plt Count 270 MPV 9.6 Immature Gran % (Auto) 0.200 Neut % (Auto) 87.3 H Lymph % (Auto) 4.3 L Frontier % (Auto) 7.2 Eos % (Auto) 0.5 Baso % (Auto) 0.5 Absolute Neuts (auto) 5.2 Absolute Lymphs (auto) 0.26 L Nucleated RBC % 0 Differential Comment SEE COMMENT Platelet Estimate ADEQUATE RBC Morphology N CHROM Anisocytosis RARE Macrocytosis RARE Sodium 139 Potassium 3.3 L Chloride 107 Carbon Dioxide 24.0 Anion Gap 8 BUN 19 H Creatinine 1.04 H Estim Creat Clear Calc 76.22 Est GFR (MDRD) Af Amer 79 Est GFR (MDRD) Non-Af 65 BUN/Creatinine Ratio 18.3 Glucose 100 Calcium 9.2 Total Bilirubin 0.60 AST 66 H ALT 93 H Alkaline Phosphatase 80 Total Protein 8.0 Albumin 4.2 Globulin 3.8 Albumin/Globulin Ratio 1.1 Serum , Qual NEGATIVE Discharge Plan Triage Chief Complaint: Weakness ED Provider: Alvarez Bingham Dx/Rx/DC Orders Clinical Impression: Viral gastroenteritis, Mild dehydration, Hypokalemia due to excessive gastrointestinal loss of potassium Instructions: Viral Gastroenteritis Prescriptions: New ondansetron [ondansetron] 4 MG tablet 8 mg PO Q8H PRN PRN (Reason: Nausea) Qty: 20 0RF No Action cariprazine 1.5 mg capsule 3 mg PO DAILY lamotrigine [Lamictal] 25 mg tablet 25 mg PO DAILY trazodone 50 mg tablet 50 mg PO QHS PRN (Reason: Sleep) fluoxetine 20 mg tablet 40 mg PO DAILY methocarbamol 500 mg tablet 500 mg PO TID PRN (Reason: muscle spasm) Qty: 90 0RF lidocaine 5 % adhesive patch,medicated 2 patch TOPICAL DAILY Qty: 60 3RF Rx Instructions: leave on most painful area for up to 12 hrs Nurtec ODT 75 mg tablet,disintegrating 75 mg PO QDAY PRN (Reason: migraine headache) Qty: 14 1RF Rx Instructions: as a single dose valacyclovir 500 mg tablet 500 mg PO DAILY ondansetron 4 mg tablet,disintegrating 4 mg PO Q8H PRN (Reason: nausea and vomiting) Qty: 10 0RF (DME) blood pressure monitor Kit See Rx Instructions .ROUTE .MEDSUPPLY Qty: 1 0RF Rx Instructions: Check blood pressure daily for hypertension I10 Symbicort 160-4.5 mcg/actuation HFA aerosol inhaler 2 puff INHALATION BID Qty: 10.2 3RF albuterol sulfate [ProAir HFA] 90 mcg/actuation HFA aerosol inhaler 1 - 2 puff inhalation Q6H PRN (Reason: shortness of breath or wheezing) Qty: 8.5 2RF sumatriptan succinate 25 mg tablet See Rx Instructions PO .COMPLEX Qty: 14 2RF Rx Instructions: take 1 tab at onset of headache; if no relief may repeat 1 tab in 2hr; max = 4 tabs/day (24hr) PO acetaminophen 500 mg tablet 500 mg PO Q6H PRN (Reason: fever or pain) Qty: 60 1RF ibuprofen 800 mg tablet 800 mg PO Q8H PRN (Reason: pain) Qty: 60 1RF gabapentin 400 mg capsule 400 mg PO Q8H Qty: 90 2RF loratadine 10 mg capsule 10 mg PO DAILY Qty: 90 2RF Primary Care Provider: Navi Kemp Referrals: Navi Kemp MD [Primary Care Provider] - 3-5 Days if not improving Activity Restrictions/Additional Instructions: You may take Imodium as needed for your diarrhea Disposition Disposition: Home, Self Care
[2022-06-10 19:32] LABS: Absolute Lymphocyte Count 0.26 X10^3/uL (0.83-4.51); Absolute Neutrophil Count 5.2 X10^3/uL (2.0-7.7); Basophil# 0.03 X10^3/uL; Basophil% 0.5 % (0-1); Eosinophil# 0.03 X10^3/uL; Eosinophils% 0.5 % (0-5); Hematocrit 46.6 % (37-47); Hemoglobin 16.1 g/dL (12.0-15.0); Lymphocyte # 0.26 X10^3/ul (0.83-4.51); Lymphocyte % 4.3 % (19-41); Mean Corp Hgb Conc 34.5 g/dL (32-36); Mean Corpuscular Volume 89.8 fL (81-99); Mean Platelet Vol. 9.6 fl (6.2-12.0); Monocyte# 0.43 X10^3/uL; Monocyte% 7.2 % (0-10); NRBC Flagged by Analyzer 0 % (0-5); Neutrophil # 5.24 X10^3/uL (2.7-7.7); Neutrophil % 87.3 % (47-70); POSITIVE DIFFERENTIAL YES; Platelet Count 270 K/mm3 (150-450); RBC Distribution Width CV 12.5 % (11.6-14.6); RBC Distribution Width SD 41.6 fl (35.1-43.9); Red Blood Count 5.19 M/mm3 (4.2-5.4)
[2022-06-10] MEDS: Ketorolac 30 MG/ML Syringe IV (19:32)
[2022-06-10] MEDS: 0.9% Normal Saline 1,000 ML 1000 ML IV (19:32)
[2022-06-10] MEDS: Ondansetron 4 MG/2 ML Vial IV (19:33)
[2022-06-10 19:36] LABS: Differential Indicated SCAN CRITERIA MET
[2022-06-10 19:48] LABS: ALB/GLOB Ratio 1.1 RATIO (0.9-2.4); AST(SGOT) 66 U/L (15-37); Alanine Aminotransfer ALT/SGPT 93 U/L (13-56); Albumin, Serum 4.2 g/dL (3.2-5.0); Alkaline Phosphatase 80 U/L (45-117); Anion Gap 8 (5-15); BUN 19 mg/dL (7-18); BUN/Creat Ratio 18.3 RATIO (10-20); Calcium,Total 9.2 mg/dL (8.5-10.1); Chloride 107 mmol/L (98-107); Creatinine, Serum 1.04 mg/dL (0.55-1.02); EST Glomerular Filtration Rate 65 mL/min (>60); Est Glom Filt Rate - Afr Amer 79 mL/min (>60); Estimated Creatinine Clearance 76.22 ml/min; Globulin 3.8 g/dL (2.2-4.2); Glucose 100 mg/dL (74-106); Potassium 3.3 mmol/L (3.5-5.1); Sodium Level 139 mmol/L (136-145)
[2022-06-10 19:50] LABS: Anisocytosis RARE; Macrocytosis RARE; Platelet Estimate ADEQUATE (ADEQ); Red Cell Morphology N CHROM NORMAL (NORM C&C)
[2022-06-10 20:11] LABS: Internal QC Validated? YES +Cl - CLEAR BKGD; Pregnancy, Serum, hCG Quali. NEGATIVE Negative
[2022-06-10 20:31] VITALS: RESP 16
[2022-06-10] MEDS: Potassium Chloride Oral Tablet 20 MEQ 40 MEQ PO (22:15)
[2022-06-10 22:19] VITALS: RESP 14
== END 2022-06-10 22:24 | disposition home or self-care (01) ==
PROVIDERS: Emergency Provider Emergency Medicine; PCP Internal Medicine; Visit Provider Emergency Medicine
DX: A08.4 Viral intestinal infection, unspecified (principal); E87.6 Hypokalemia; E86.0 Dehydration; F17.210 Nicotine dependence, cigarettes, uncomplicated; F17.290 Nicotine dependence, other tobacco product, uncomplicated
CPT/HCPCS: 80053; 84703; 85025; 96361; 96374; 96375; 99283; J7030; J2405

== ENCOUNTER → 2022-07-20 | Outpatient (CLI) | payer MEDICAID, SELFPAY ==
[2022-07-20 15:34] LABS: Amphetamine Urine VISTA NEGATIVE (<1000 ng/mL); Barbiturate Urine VISTA NEGATIVE (< 200 ng/mL); Benzodiazepine Urine VISTA NEGATIVE (< 200 ng/mL); Cocaine Urine VISTA NEGATIVE (< 300 ng/mL); Ecstacy Urine VISTA POSITIVE (< 500 ng/mL); Methadone Urine VISTA NEGATIVE (< 300 ng/mL); PCP Urine VISTA NEGATIVE (< 25 ng/mL); THC Urine VISTA NEGATIVE (< 50 ng/mL); Vista UDS pH Range 6
== END | disposition home or self-care (01) ==
PROVIDERS: PCP Internal Medicine; Visit Provider Nurse Practitioner Family
DX: K08.9 Disorder of teeth and supporting structures, unspecified (principal); G89.29 Other chronic pain
CPT/HCPCS: 80307

== ENCOUNTER 2022-07-21 09:14 | Emergency (ER) | payer MEDICAID, SELFPAY ==
[2022-07-21 09:15] VITALS: BP 123/100; PULSE 74; RESP 14; TEMP 36.6; O2SAT 98; BMI 28.4
--- NOTE | 2022-07-21 10:39 | ED.VIS.DENTA ---
HPI History of Present Illness Chief Complaint: Dental Informant: patient Onset/Context/Timing Onset: Weeks (2) Context: Gradual Onset Timing: Continuous Quality: Sharp, aching Location: Right lower molars Worsened by: Cold sensitivity Relieved by: - (Nothing) Associated Symptoms Assocated Symptom - Dental: cold sensitivity; Negative for fever, jaw swelling, face swelling or hot sensitivity Narrative Narrative: Patient presents with right-sided dental pain that has been getting worse for the past 2 weeks. Patient states it is gradually getting worse. Patient states she was placed on a course of amoxicillin which she finished. Patient states she had no improvement with this. Patient states her primary care physician prescribed her Augmentin. Patient states she has been on this for the past 3 days. Patient states her pain has been persistent. Patient admits to some cold sensitivity. Patient denies any jaw or facial swelling. Patient states her pain is mainly over her right lower molars. Patient states she was seen at [facility] on 07/12/2022. Patient states she was told she needed root canals of tooth #29 and tooth #31. Patient states she was also told she needed a filling in tooth #30. Patient states she has been taking Tylenol and ibuprofen with no improvement of her pain. Patient states her primary care physician would not prescribe her anything stronger than ibuprofen or Tylenol for pain. [facility] Medical History Acute maxillary sinusitis, unspecified Alcohol abuse Anxiety and depression Asthma Back problem Bee sting Bipolar 1 disorder Bone fracture Chronic bronchitis Chronic dental pain Chronic headaches Chronic low back pain Chronic neck pain Contact with and (suspected) exposure to other viral communicable diseases Drug abuse Encounter for screening for COVID-19 GERD (gastroesophageal reflux disease) Hearing loss in left ear Hx of emotional problems Left ankle sprain Lumbar radiculopathy Pneumonia PTSD (post-traumatic stress disorder) Right elbow pain Seasonal allergies URI (upper respiratory infection) URI (upper respiratory infection) Vision problem Home Medications blood pressure monitor #1 ea 10/29/19 [Rx Last Taken Unknown] lamotrigine 25 mg tablet (Lamictal) 25 mg PO DAILY 03/25/20 [History Last Taken Unknown] trazodone 50 mg tablet 50 mg PO QHS PRN Sleep 03/25/20 [History Last Taken Unknown] valacyclovir 500 mg tablet 500 mg PO DAILY 11/05/20 [History Last Taken Unknown] budesonide-formoterol HFA 160 mcg-4.5 mcg/actuation aerosol inhaler (Symbicort) 2 puff inhalation BID #10.2 grams 12/16/20 [Rx Last Taken Unknown] albuterol sulfate 90 mcg/actuation aerosol inhaler (ProAir HFA) 1 - 2 puff inhalation Q6H PRN shortness of breath or wheezing #8.5 grams 08/24/21 [Rx Last Taken Unknown] fluoxetine 20 mg tablet 40 mg PO DAILY 10/12/21 [History Last Taken Unknown] sumatriptan succinate 25 mg tablet See Rx Instructions PO .COMPLEX migraine #14 tabs 11/09/21 [Rx Last Taken Unknown] lidocaine 5 % topical patch 2 patch topical DAILY #60 ea 12/09/21 [Rx Last Taken Unknown] gabapentin 400 mg capsule 400 mg PO Q8H #90 caps 02/14/22 [Rx Last Taken Unknown] loratadine 10 mg capsule 10 mg PO DAILY #90 caps 04/10/22 [Rx Last Taken Unknown] rimegepant 75 mg disintegrating tablet (Nurtec ODT) 75 mg PO QDAY PRN migraine headache #14 tabs 05/18/22 [Rx Last Taken Unknown] ondansetron 4 mg disintegrating tablet 8 mg PO Q8H PRN PRN Nausea #20 tabs 06/10/22 [Rx Last Taken Unknown] bupropion HCl 150 mg tablet,12 hr sustained-release (Wellbutrin SR) 150 mg PO QAM 07/05/22 [History Last Taken Unknown] ibuprofen 800 mg tablet 800 mg PO Q8H PRN pain #60 tabs 07/12/22 [Rx Last Taken Unknown] acetaminophen 500 mg tablet 500 mg PO Q6H PRN fever or pain #60 tabs 07/18/22 [Rx Last Taken Unknown] amoxicillin 875 mg-potassium clavulanate 125 mg tablet 1 tab PO BID #20 tabs 07/18/22 [Rx Last Taken Unknown] ibuprofen 800 mg tablet 800 mg PO Q8H PRN pain #60 tabs 07/18/22 [Rx Last Taken Unknown] Allergy/AdvReac Type Severity Reaction Status Date / Time zinc oxide Allergy Unknown Verified 07/21/22 09:15 naproxen [From Naprosyn] AdvReac Nausea Verified 07/21/22 09:15 Family History Unknown Alcoholism Anxiety Asthma Depression Myocardial infarction Suicide attempt Other Cancer Surgical History History of cholecystectomy History of laparoscopic appendectomy History of oral surgery Social History Smoking Status: Current every day smoker tobacco type: cigarettes and e-cigarettes alcohol intake: former year quit: 2014 substance use type: 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, methamphetamine and other what type of physical activity do you participate in: yoga and weight training frequency: 3-4 times per week ROS ROS ED Constitutional Constitutional ED: Denies chills or fever(s) Eyes Eyes: Denies blurry vision or change in vision ENT ENT ED: Denies rhinorrhea or sore throat Cardiovascular Cardiovascular: Denies chest pain or palpitations Respiratory/Chest Respiratory/Chest: Denies cough or dyspnea Gastrointestinal Gastrointestinal: Denies nausea or vomiting Genitourinary Genitourinary ED: Denies dysuria or hematuria Musculoskeletal Musculoskeletal: Reports neck pain; Denies back pain Integumentary Denies abscess or rash Neurologic Neurologic: Reports headache(s); Denies weakness Allergic/Immunologic Allergic/Immunologic ED: Denies mouth swelling or urticaria EXAM Physical Exam Const Vital Signs: 07/21/22 09:15 Temperature 98 F Temperature Source Temporal Pulse Rate 74 Respiratory Rate 14 Blood Pressure 123/100 H Blood Pressure Mean 107 Pulse Ox 98 Oxygen Delivery Method Room Air Positive well nourished and well developed General Appearance ED: well developed and NAD HEENT HEENT Narrative: There is tenderness and dental caries over the right lower molars. There is some mild gingival edema around these teeth. There is no fluctuance. There is no evidence of any abscess. There is no sublingual edema or evidence of German's angina. Oral mucosa is pink and moist. Oropharynx is clear. Airway is patent. Mouth ED: Yes oral and palatal mucosa normal Mouth: oral and palatal mucosa normal Teeth and Gingiva: caries and gingiva abnormal Positive for gingival edema Throat: posterior oropharynx normal Neck General: normal visual inspection; Negative for anterior neck swelling, tenderness or submandibular swelling Neuro oriented x3, CN's II-XII intact bilaterally, moves all extremities, no focal motor deficits and no sensory deficits noted Sensorium / Orientation: alert Motor Exam: strength 5/5 throughout Psych mental status grossly normal MDM MDM MDM Narrative Medical decision making narrative: Patient was given 1 dose of [place] here. Patient was instructed to continue her Augmentin as previously prescribed. Patient was instructed continue with Tylenol and ibuprofen as previously prescribed. Patient was instructed to follow-up with a dentist in 5 to 7 days. Patient was given a dental referral list. Patient was instructed to return if worse in any way. Patient understood and was agreeable with the plan. All questions were answered. Discharge Plan Triage Chief Complaint: Dental ED Provider: Kaleb Molina Dx/Rx/DC Orders Clinical Impression: Infected dental caries Instructions: ED Dental Pain, ED Dental Cavity Prescriptions: No Action lamotrigine [Lamictal] 25 mg tablet 25 mg PO DAILY trazodone 50 mg tablet 50 mg PO QHS PRN (Reason: Sleep) fluoxetine 20 mg tablet 40 mg PO DAILY lidocaine 5 % adhesive patch,medicated 2 patch TOPICAL DAILY Qty: 60 3RF Rx Instructions: leave on most painful area for up to 12 hrs Nurtec ODT 75 mg tablet,disintegrating 75 mg PO QDAY PRN (Reason: migraine headache) Qty: 14 1RF Rx Instructions: as a single dose bupropion HCl [Wellbutrin SR] 150 mg tablet sustained-release 12 hr 150 mg PO QAM amoxicillin-pot clavulanate 875-125 mg tablet 1 tab PO BID Qty: 20 0RF ibuprofen 800 mg tablet 800 mg PO Q8H PRN (Reason: pain) Qty: 60 1RF acetaminophen 500 mg tablet 500 mg PO Q6H PRN (Reason: fever or pain) Qty: 60 1RF valacyclovir 500 mg tablet 500 mg PO DAILY ondansetron [ondansetron] 4 MG tablet 8 mg PO Q8H PRN PRN (Reason: Nausea) Qty: 20 0RF (DME) blood pressure monitor Kit See Rx Instructions .ROUTE .MEDSUPPLY Qty: 1 0RF Rx Instructions: Check blood pressure daily for hypertension I10 Symbicort 160-4.5 mcg/actuation HFA aerosol inhaler 2 puff INHALATION BID Qty: 10.2 3RF albuterol sulfate [ProAir HFA] 90 mcg/actuation HFA aerosol inhaler 1 - 2 puff inhalation Q6H PRN (Reason: shortness of breath or wheezing) Qty: 8.5 2RF sumatriptan succinate 25 mg tablet See Rx Instructions PO .COMPLEX Qty: 14 2RF Rx Instructions: take 1 tab at onset of headache; if no relief may repeat 1 tab in 2hr; max = 4 tabs/day (24hr) PO gabapentin 400 mg capsule 400 mg PO Q8H Qty: 90 2RF loratadine 10 mg capsule 10 mg PO DAILY Qty: 90 2RF ibuprofen 800 mg tablet 800 mg PO Q8H PRN (Reason: pain) Qty: 60 1RF Primary Care Provider: Navi Kemp Referrals: Navi Kemp MD [Primary Care Provider] - 5-7 Days Sandra Kyle [Non-Staff] - 3-5 Days Disposition Disposition: Home, Self Care
[2022-07-21] MEDS: HYDROcodone Bitartrate/Apap 5/325 Tablet PO (10:49)
== END 2022-07-21 10:50 | disposition home or self-care (01) ==
PROVIDERS: Emergency Provider Emergency Medicine; PCP Internal Medicine; Visit Provider Emergency Medicine
DX: K02.9 Dental caries, unspecified (principal); F17.210 Nicotine dependence, cigarettes, uncomplicated; F17.290 Nicotine dependence, other tobacco product, uncomplicated
CPT/HCPCS: 99282

== ENCOUNTER 2022-08-14 17:57 | Emergency (ER) | payer MEDICAID, SELFPAY ==
[2022-08-14 17:58] VITALS: BP 140/93; PULSE 82; RESP 16; TEMP 36.9; O2SAT 99; BMI 28.5
[2022-08-14] MEDS: 0.9% Normal Saline 1,000 ML 50 ML IV ×2 (19:29→21:58)
[2022-08-14 19:48] LABS: Absolute Lymphocyte Count 1.54 X10^3/uL (0.83-4.51); Absolute Neutrophil Count 4.7 X10^3/uL (2.0-7.7); Basophil# 0.08 X10^3/uL; Basophil% 1.1 % (0-1); Eosinophils% 1.4 % (0-5); Hematocrit 40.3 % (37-47); Hemoglobin 13.4 g/dL (12.0-15.0); Lymphocyte # 1.54 X10^3/ul (0.83-4.51); Lymphocyte % 22.1 % (19-41); Mean Corp Hgb Conc 33.3 g/dL (32-36); Mean Corpuscular Hgb 30.7 pg (27.0-32.0); Mean Corpuscular Volume 92.4 fL (81-99); Mean Platelet Vol. 9.7 fl (6.2-12.0); Monocyte# 0.58 X10^3/uL; Monocyte% 8.3 % (0-10); NRBC Flagged by Analyzer 0 % (0-5); Neutrophil # 4.66 X10^3/uL (2.7-7.7); Neutrophil % 66.8 % (47-70); Platelet Count 301 K/mm3 (150-450); RBC Distribution Width CV 13.1 % (11.6-14.6); RBC Distribution Width SD 43.8 fl (35.1-43.9); Red Blood Count 4.36 M/mm3 (4.2-5.4)
[2022-08-14 19:59] LABS: International Normalized Ratio 0.9; Partial Thromboplast Time 22.6 Seconds (24.1-36.2); Prothrombin Time (Protime)PT. 12.3 SECONDS (11.7-14.9)
[2022-08-14 20:04] LABS: Anion Gap 1 (5-15); BUN 11 mg/dL (7-18); BUN/Creat Ratio 9.7 RATIO (10-20); Calcium,Total 8.7 mg/dL (8.5-10.1); Chloride 112 mmol/L (98-107); Creatinine, Serum 1.13 mg/dL (0.55-1.02); EST Glomerular Filtration Rate 59 mL/min (>60); Est Glom Filt Rate - Afr Amer 72 mL/min (>60); Estimated Creatinine Clearance 70.15 ml/min; Glucose 97 mg/dL (74-106); Potassium 3.3 mmol/L (3.5-5.1); Sodium Level 140 mmol/L (136-145)
--- NOTE | 2022-08-14 20:10 | RAD_ITS ---
STUDY: X-RAY CHEST REASON FOR EXAM: Female, 31 years old. Stroke TECHNIQUE: AP portable COMPARISON: October 01, 2018 FINDINGS: The lungs are clear and expanded. There is no demonstrated pleural abnormality. Normal size heart. Normal mediastinum and ivania. Normal visualized pulmonary arteries. Normal visualized aortic arch and descending thoracic aorta. Normal visualized thoracic spine. Normal visualized ribs, clavicles, and shoulders. There is no demonstrated abnormality of the visualized soft tissue structures of the upper abdomen. No significant change since prior exam RAD/Chest 1 View (Portable) IMPRESSION: Normal x-ray examination of the chest. Electronically Signed: Vernon Stockton MD at 20:57 EDT ,
--- NOTE | 2022-08-14 20:36 | CT_ITS ---
STUDY: CT BRAIN WITHOUT CONTRAST REASON FOR EXAM: Female, 31 years old. lightheaded RADIATION DOSAGE (If Supplied By Facility): CTDIvol = ( 44.99 ) mGy, DLP = ( 812.98 ) mGycm TECHNIQUE: Transaxial CT imaging of the brain was performed without administration of intravenous contrast material. Individualized dose optimization techniques were used for this CT. COMPARISON: No relevant priors. FINDINGS: Normal soft tissue structures. Normal calvarium. Normal size ventricles and extra-axial spaces for the patient''s age. Normal white matter tracts of the cerebral hemispheres. Normal basal ganglia and thalami. Normal brainstem. Normal cerebellum. There is no intracranial hemorrhage. There are no findings of an acute ischemic infarction. Normal visualized paranasal sinuses. CT/Brain/Head without Contrast IMPRESSION: Normal unenhanced CT scan of the brain. If clinical concern for acute infarct MRI recommended Electronically Signed: Vernon Stockton MD at 21:08 EDT ,
--- NOTE | 2022-08-14 20:37 | EX.ED.DYSGE1 ---
HPI History of Present Illness Chief Complaint: Dizziness Informant: patient and spouse/S.O. Narrative Narrative: Patient presents with seeing stars today. She states she has felt this way before but does not know how often or for how long its been happening. It sounds like some years. She did have her lamotrigine stopped a couple weeks ago. She states it has been rough since then. But no specific symptoms. Today she was outside. 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 She opened the door to a trailer and saw stars. She felt dizzy. She just feels tired now. She never had any focal deficit. Although she has a history of migraines she did not have a migraine and does not have 1. She was feeling fine prior to this. She states now she just feels tired and would like to go sleep. [facility] Medical History Acute maxillary sinusitis, unspecified Alcohol abuse Anxiety and depression Asthma Back problem Bee sting Bipolar 1 disorder Bone fracture Chronic bronchitis Chronic dental pain Chronic headaches Chronic low back pain Chronic neck pain Contact with and (suspected) exposure to other viral communicable diseases Drug abuse Encounter for screening for COVID-19 GERD (gastroesophageal reflux disease) Hearing loss in left ear Hx of emotional problems Left ankle sprain Lumbar radiculopathy Pneumonia PTSD (post-traumatic stress disorder) Right elbow pain Seasonal allergies URI (upper respiratory infection) URI (upper respiratory infection) Vision problem Home Medications blood pressure monitor #1 ea 10/29/19 [Rx Last Taken Unknown] lamotrigine 25 mg tablet (Lamictal) 25 mg PO DAILY 03/25/20 [History Last Taken Unknown] trazodone 50 mg tablet 50 mg PO QHS PRN Sleep 03/25/20 [History Last Taken Unknown] valacyclovir 500 mg tablet 500 mg PO DAILY 11/05/20 [History Last Taken Unknown] budesonide-formoterol HFA 160 mcg-4.5 mcg/actuation aerosol inhaler (Symbicort) 2 puff inhalation BID #10.2 grams 12/16/20 [Rx Last Taken Unknown] albuterol sulfate 90 mcg/actuation aerosol inhaler (ProAir HFA) 1 - 2 puff inhalation Q6H PRN shortness of breath or wheezing #8.5 grams 08/24/21 [Rx Last Taken Unknown] fluoxetine 20 mg tablet 40 mg PO DAILY 10/12/21 [History Last Taken Unknown] sumatriptan succinate 25 mg tablet See Rx Instructions PO .COMPLEX migraine #14 tabs 11/09/21 [Rx Last Taken Unknown] lidocaine 5 % topical patch 2 patch topical DAILY #60 ea 12/09/21 [Rx Last Taken Unknown] loratadine 10 mg capsule 10 mg PO DAILY #90 caps 04/10/22 [Rx Last Taken Unknown] ondansetron 4 mg disintegrating tablet 8 mg PO Q8H PRN PRN Nausea #20 tabs 06/10/22 [Rx Last Taken Unknown] bupropion HCl 150 mg tablet,12 hr sustained-release (Wellbutrin SR) 150 mg PO QAM 07/05/22 [History Last Taken Unknown] ibuprofen 800 mg tablet 800 mg PO Q8H PRN pain #60 tabs 07/12/22 [Rx Last Taken Unknown] acetaminophen 500 mg tablet 500 mg PO Q6H PRN fever or pain #60 tabs 07/18/22 [Rx Last Taken Unknown] amoxicillin 875 mg-potassium clavulanate 125 mg tablet 1 tab PO BID #20 tabs 07/18/22 [Rx Last Taken Unknown] ibuprofen 800 mg tablet 800 mg PO Q8H PRN pain #60 tabs 07/18/22 [Rx Last Taken Unknown] gabapentin 400 mg capsule See Rx Instructions .Route .COMPLEX #90 caps 07/25/22 [Rx Last Taken Unknown] MAGIC MOUTH WASH (BMX) 180 mL suspension 10 ml buccal .qid #180 mL 07/26/22 [Rx Last Taken Unknown] rimegepant 75 mg disintegrating tablet (Nurtec ODT) See Rx Instructions .Route .COMPLEX #8 tabs 07/31/22 [Rx Last Taken Unknown] Allergy/AdvReac Type Severity Reaction Status Date / Time zinc oxide Allergy Unknown Verified 08/14/22 18:01 naproxen [From Naprosyn] AdvReac Nausea Verified 08/14/22 18:01 Family History Unknown Alcoholism Anxiety Asthma Depression Myocardial infarction Suicide attempt Other Cancer Surgical History History of cholecystectomy History of laparoscopic appendectomy History of oral surgery Social History Smoking Status: Current every day smoker tobacco type: cigarettes and e-cigarettes alcohol intake: former year quit: 2014 substance use type: 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, methamphetamine and other what type of physical activity do you participate in: yoga and weight training frequency: 3-4 times per week ROS ROS ED Constitutional Constitutional ED: Denies chills, fever(s) or subjective Eyes Eyes: Reports change in vision; Denies blurry vision or diplopia ENT ENT ED: Denies rhinorrhea or sore throat Cardiovascular Cardiovascular: Denies chest pain or palpitations Respiratory/Chest Respiratory/Chest: Denies cough or dyspnea Gastrointestinal Gastrointestinal: Denies nausea or vomiting Genitourinary Genitourinary ED: Denies dysuria Musculoskeletal Musculoskeletal: Denies myalgias Integumentary Denies rash Neurologic Neurologic: Reports other Details: tired ; Denies headache(s), paresthesias or weakness Psychiatric Psychiatric: Reports anxiety and depression Endocrine Endocrinology: Denies polydipsia or polyuria Hematologic/Lymphatic Hematologic/Lymphatic: Denies easy bleeding or easy bruising Allergic/Immunologic Allergic/Immunologic ED: Denies urticaria EXAM Physical Exam Narrative Exam Narrative: Patient is awake and alert. Carries on normal conversation. HEENT shows normal mucous membranes. No rashes. No sinus tenderness. Tympanic membranes are both clear. No cerumen obstruction. Neck is supple. No JVD. I hear no bruit. No pain with motion. No lymphadenopathy. Lungs are clear bilaterally. Saturations are 99 to 100% on room air showing no hypoxia. Heart is regular. No murmur gallop or rub Abdomen soft completely benign. Extremities show no edema or tenderness or swelling Neurologically she is awake alert normal speech understanding and grossly normal visual arteaga. No discoordination. She is able to get up and move around bed without any difficulty. Const Vital Signs: 08/14/22 17:58 08/14/22 19:46 08/14/22 20:21 Temperature 98.4 F Temperature Source Temporal Pulse Rate 82 Respiratory Rate 16 Respiratory Pattern Normal Blood Pressure 140/93 H Blood Pressure Mean 108 Pulse Ox 99 Oxygen Delivery Method Room Air Room Air MDM MDM MDM Narrative Medical decision making narrative: My independent interpretation the patient's CT of the head shows no acute process. No mass or bleeding. Final reading is negative. My independent interpretation of her chest x-ray is also negative. This is consistent with final reading also. CBC is normal Coags are normal Electrolytes are normal other than mild decreased potassium and elevated creatinine. She was given fluids and potassium. This might be from being out in the heat and sweating and working hard today. She feels well now. She has stable gait. I think we can get her home safely. Lab Data Labs: Laboratory Results - last 24 hr 08/14/22 08/14/22 08/14/22 19:42 19:42 19:42 WBC 7.0 RBC 4.36 Hgb 13.4 Hct 40.3 MCV 92.4 MCH 30.7 MCHC 33.3 RDW Std Deviation 43.8 RDW Coeff of [place] 13.1 Plt Count 301 MPV 9.7 Immature Gran % (Auto) 0.300 Neut % (Auto) 66.8 Lymph % (Auto) 22.1 [place] % (Auto) 8.3 Eos % (Auto) 1.4 Baso % (Auto) 1.1 H Absolute Neuts (auto) 4.7 Absolute Lymphs (auto) 1.54 Nucleated RBC % 0 PT 12.3 INR 0.9 APTT 22.6 L Sodium 140 Potassium 3.3 L Chloride 112 H Carbon Dioxide 27.0 Anion Gap 1 L BUN 11 Creatinine 1.13 H Estim Creat Clear Calc 70.15 Est GFR (MDRD) Af Amer 72 Est GFR (MDRD) Non-Af 59 L BUN/Creatinine Ratio 9.7 L Glucose 97 Calcium 8.7 Radiography Diagnostic Testing: Clinical Impression(s) from Imaging Studies Chest X-Ray 08/14/22 20:10 IMPRESSION: Normal x-ray examination of the chest. Electronically Signed: Vernon Stockton MD at 20:57 EDT , Brain CT 08/14/22 20:36 IMPRESSION: Normal unenhanced CT scan of the brain. If clinical concern for acute infarct MRI recommended Electronically Signed: Vernon Stockton MD at 21:08 EDT , Discharge Plan Triage Chief Complaint: Dizziness ED Provider: Isma Pal Dx/Rx/DC Orders Clinical Impression: Episodic lightheadedness, Hypokalemia, Mild dehydration Instructions: ED Dehydration (Adult) Prescriptions: No Action lamotrigine [Lamictal] 25 mg tablet 25 mg PO DAILY trazodone 50 mg tablet 50 mg PO QHS PRN (Reason: Sleep) fluoxetine 20 mg tablet 40 mg PO DAILY lidocaine 5 % adhesive patch,medicated 2 patch TOPICAL DAILY Qty: 60 3RF Rx Instructions: leave on most painful area for up to 12 hrs bupropion HCl [Wellbutrin SR] 150 mg tablet sustained-release 12 hr 150 mg PO QAM amoxicillin-pot clavulanate 875-125 mg tablet 1 tab PO BID Qty: 20 0RF ibuprofen 800 mg tablet 800 mg PO Q8H PRN (Reason: pain) Qty: 60 1RF acetaminophen 500 mg tablet 500 mg PO Q6H PRN (Reason: fever or pain) Qty: 60 1RF MAGIC MOUTH WASH (BMX) 180 mL suspension 10 ml buccal .qid Qty: 180 0RF Rx Instructions: diphenhydramine 12.5 mg/5 mL oral liquid 60 mL; aluminum-mag hydroxide-simethicone 400 mg-400 mg-40 mg/5 mL oral susp 60 mL; Lidocaine Viscous 2 % mucosal solution 60 mL; Per 180 mL valacyclovir 500 mg tablet 500 mg PO DAILY ondansetron [ondansetron] 4 MG tablet 8 mg PO Q8H PRN PRN (Reason: Nausea) Qty: 20 0RF (DME) blood pressure monitor Kit See Rx Instructions .ROUTE .MEDSUPPLY Qty: 1 0RF Rx Instructions: Check blood pressure daily for hypertension I10 Symbicort 160-4.5 mcg/actuation HFA aerosol inhaler 2 puff INHALATION BID Qty: 10.2 3RF albuterol sulfate [ProAir HFA] 90 mcg/actuation HFA aerosol inhaler 1 - 2 puff inhalation Q6H PRN (Reason: shortness of breath or wheezing) Qty: 8.5 2RF sumatriptan succinate 25 mg tablet See Rx Instructions PO .COMPLEX Qty: 14 2RF Rx Instructions: take 1 tab at onset of headache; if no relief may repeat 1 tab in 2hr; max = 4 tabs/day (24hr) PO loratadine 10 mg capsule 10 mg PO DAILY Qty: 90 2RF ibuprofen 800 mg tablet 800 mg PO Q8H PRN (Reason: pain) Qty: 60 1RF gabapentin 400 mg capsule See Rx Instructions .ROUTE .COMPLEX Qty: 90 0RF Dose Instruction: take 1 capsule by mouth every 8 hours Rx Instructions: take 1 capsule by mouth every 8 hours Nurtec ODT 75 mg tablet,disintegrating See Rx Instructions .ROUTE .COMPLEX Qty: 8 0RF Dose Instruction: DISSOLVE 1 TABLET ON TOP OF TONGUE AND SWALLOW NEEDED FOR MIGRAINE HEADACHE Rx Instructions: DISSOLVE 1 TABLET ON TOP OF TONGUE AND SWALLOW NEEDED FOR MIGRAINE HEADACHE Primary Care Provider: Navi Kemp Referrals: Navi Kemp MD [Primary Care Provider] - 3-5 Days if not improving Disposition Disposition: Home, Self Care
[2022-08-14] MEDS: Potassium Chloride Oral Tablet 20 MEQ 40 MEQ PO (21:57)
== END 2022-08-14 22:53 | disposition home or self-care (01) ==
PROVIDERS: Emergency Provider Emergency Medicine; PCP Internal Medicine; Visit Provider Emergency Medicine
DX: R42 Dizziness and giddiness (principal); E87.6 Hypokalemia; E86.0 Dehydration; F17.210 Nicotine dependence, cigarettes, uncomplicated; F17.290 Nicotine dependence, other tobacco product, uncomplicated
CPT/HCPCS: 70450; 71045; 80048; 85025; 85610; 85730; 93005; 96360; 96361; 99285; J7030

== ENCOUNTER 2022-08-19 12:45 | Emergency (ER) | payer MEDICAID, SELFPAY ==
[2022-08-19 12:46] VITALS: BP 132/80; PULSE 101; RESP 18; TEMP 36.6; O2SAT 98; BMI 28.2
--- NOTE | 2022-08-19 13:02 | EX.ED.DYSGE1 ---
HPI <CHARLOTTE Muñoz - Last Filed: 08/19/22 14:13> History of Present Illness Chief Complaint: General Illness Narrative Narrative: Patient is a 31-year-old female with history of bipolar disorder who presents to the emergency department for ongoing weakness. Patient was seen here on August 14, 2022 which was 5 days ago. 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 She did follow-up with her PCP who states that she could possibly have vertigo, as well as dehydration. Patient also has been having her medications changed for her bipolar over the last several weeks, this is also been taking a toll as well. Patient states today she is feels generally malaise, denies any significant pain. Patient states that she has no fever or chills, nausea or vomiting. Patient is here because after she ate a [employer] sandwich, she continues to feel weak. 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 [facility] <CHARLOTTE Muñoz - Last Filed: 08/19/22 14:13> [facility] Medical History (Updated 08/19/22 @ 14:[address] Tee Willett MD) Abnormal kidney function Acute maxillary sinusitis, unspecified Alcohol abuse Anxiety and depression Asthma Back problem Bee sting Bipolar 1 disorder Bone fracture Chronic bronchitis Chronic dental pain Chronic headaches Chronic low back pain Chronic neck pain Contact with and (suspected) exposure to other viral communicable diseases Drug abuse Encounter for screening for COVID-19 GERD (gastroesophageal reflux disease) Hearing loss in left ear Hx of emotional problems Left ankle sprain Lumbar radiculopathy Pneumonia PTSD (post-traumatic stress disorder) Right elbow pain Seasonal allergies URI (upper respiratory infection) URI (upper respiratory infection) Vertigo Vision problem Home Medications blood pressure monitor #1 ea 10/29/19 [Rx Last Taken Unknown] trazodone 50 mg tablet 50 mg PO QHS PRN Sleep 03/25/20 [History Last Taken Unknown] valacyclovir 500 mg tablet 500 mg PO DAILY 11/05/20 [History Last Taken Unknown] budesonide-formoterol HFA 160 mcg-4.5 mcg/actuation aerosol inhaler (Symbicort) 2 puff inhalation BID #10.2 grams 12/16/20 [Rx Last Taken Unknown] albuterol sulfate 90 mcg/actuation aerosol inhaler (ProAir HFA) 1 - 2 puff inhalation Q6H PRN shortness of breath or wheezing #8.5 grams 08/24/21 [Rx Last Taken Unknown] fluoxetine 20 mg tablet 40 mg PO DAILY 10/12/21 [History Last Taken Unknown] sumatriptan succinate 25 mg tablet See Rx Instructions PO .COMPLEX migraine #14 tabs 11/09/21 [Rx Last Taken Unknown] lidocaine 5 % topical patch 2 patch topical DAILY #60 ea 12/09/21 [Rx Last Taken Unknown] loratadine 10 mg capsule 10 mg PO DAILY #90 caps 04/10/22 [Rx Last Taken Unknown] ondansetron 4 mg disintegrating tablet 8 mg PO Q8H PRN PRN Nausea #20 tabs 06/10/22 [Rx Last Taken Unknown] bupropion HCl 150 mg tablet,12 hr sustained-release (Wellbutrin SR) 150 mg PO QAM 07/05/22 [History Last Taken Unknown] ibuprofen 800 mg tablet 800 mg PO Q8H PRN pain #60 tabs 07/12/22 [Rx Last Taken Unknown] acetaminophen 500 mg tablet 500 mg PO Q6H PRN fever or pain #60 tabs 07/18/22 [Rx Last Taken Unknown] ibuprofen 800 mg tablet 800 mg PO Q8H PRN pain #60 tabs 07/18/22 [Rx Last Taken Unknown] gabapentin 400 mg capsule See Rx Instructions .Route .COMPLEX #90 caps 07/25/22 [Rx Last Taken Unknown] rimegepant 75 mg disintegrating tablet (Nurtec ODT) See Rx Instructions .Route .COMPLEX #8 tabs 07/31/22 [Rx Last Taken Unknown] cariprazine 1.5 mg capsule (Vraylar) 1.5 mg PO DAILY #60 caps 08/16/22 [Rx Last Taken Unknown] prednisone 20 mg tablet 20 mg PO DAILY #5 tabs 08/16/22 [Rx Last Taken Unknown] cephalexin 500 mg capsule 500 mg PO Q6 7 days #28 CAPSULES 08/19/22 [Rx Last Taken Unknown] ondansetron 4 mg disintegrating tablet 4 mg PO Q8H PRN PRN Nausea #10 tabs 08/19/22 [Rx Last Taken Unknown] Allergy/AdvReac Type Severity Reaction Status Date / Time zinc oxide Allergy Unknown Verified 08/19/22 12:46 naproxen [From Naprosyn] AdvReac Nausea Verified 08/19/22 12:46 Family History Unknown Alcoholism Anxiety Asthma Depression Myocardial infarction Suicide attempt Other Cancer Surgical History History of cholecystectomy History of laparoscopic appendectomy History of oral surgery Social History Smoking Status: Current every day smoker tobacco type: cigarettes and e-cigarettes alcohol intake: former year quit: 2014 substance use type: 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, methamphetamine and other what type of physical activity do you participate in: yoga and weight training frequency: 3-4 times per week ROS <CHARLOTTE Muñoz - Last Filed: 08/19/22 14:13> ROS ED ROS Narrative Constitutional: Negative for fever, chills, weight loss,. Positive generalized weakness Eyes: Negative for vision loss, vision change, double vision ENT: Negative for any sore throat, ear pain, congestion Cardiovascular: Negative for any chest pain, tightness, palpitations Respiratory: Negative for any cough, sputum production, hemoptysis, dyspnea, dyspnea on exertion, orthopnea Gastrointestinal: Negative for any nausea, vomiting, diarrhea, constipation, blood in stool, blood in vomit. Positive for intermittent abdominal pain : Negative for any urinary frequency, dysuria, retention, blood in urine Muscle skeletal: Negative for any muscle joint pain, stiffness, myalgias, arthralgias, neck pain, back pain Neurological: Negative for any headache, syncope, numbness or tingling, dizziness Skin: Negative for any rashes, lumps, itching, abrasions, lacerations Psychiatric: Negative for any depression, anxiety, stress, suicidal ideation, homicidal ideation Hematologic: Negative for any easy bruising, excessive bruising, easy bleeding Allergies: Negative for any eczema, hives, rash EXAM <CHARLOTTE Muñoz - Last Filed: 08/19/22 14:13> Physical Exam Narrative Exam Narrative: Vital signs reviewed. Patient is alert and orient x4. Patient does have slight suzette however is acting appropriate. She is alert and orient x4. No suicidal homicidal ideation. 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 HEET: Head normocephalic atraumatic, TMs clear bilaterally. Posterior pharynx is clear, moist mucous membranes. Nares clear bilaterally. Neck: Supple with no lymphadenopathy or tenderness. No signs of meningismus, negative jolt sign. Cardiac: Regular rate and rhythm no murmurs gallops or rubs, equal peripheral pulses bilaterally. Respiratory: Lungs clear to auscultation bilaterally. No chest tenderness. Abdomen: Soft, nontender, nondistended. No abdominal bruit or pulsatile masses. No hepatosplenomegaly Extremities: No peripheral edema, no signs of gross trauma or deformity. Active full range of motion of all extremities. Neuro: Cranial nerves II through XII intact, no focal neurological deficits. Skin: Clean dry and intact with no rash, purpura, petechiae, vesicles or pustules. Backs/flank: No CVA tenderness, no midline spinal tenderness, no deformity. Psych: Normal mood and affect. No SI, HI or acute psychosis. Const Vital Signs: 08/19/22 12:46 08/19/22 13:29 Temperature 97.8 F Temperature Source Temporal Pulse Rate 101 H Respiratory Rate 18 Respiratory Effort Normal Respiratory Pattern Normal Blood Pressure 132/80 H Blood Pressure Mean 97 Pulse Ox 98 Oxygen Delivery Method Room Air Positive well nourished, well developed and unkempt General Appearance ED: unkempt and well developed Psych Appearance: unkempt <Dr. Tee Willett MD - Last Filed: 08/19/22 14:26> Physical Exam Const Vital Signs: 08/19/22 12:46 08/19/22 13:29 Temperature 97.8 F Temperature Source Temporal Pulse Rate 101 H Respiratory Rate 18 Respiratory Effort Normal Respiratory Pattern Normal Blood Pressure 132/80 H Blood Pressure Mean 97 Pulse Ox 98 Oxygen Delivery Method Room Air MDM <CHARLOTTE Muñoz - Last Filed: 08/19/22 14:13> MDM Lab Data Labs: Laboratory Results - last 24 hr 08/19/22 08/19/22 08/19/22 13:15 13:15 13:30 WBC 8.8 RBC 4.78 Hgb 14.4 Hct 44.3 MCV 92.7 MCH 30.1 MCHC 32.5 RDW Std Deviation 45.9 H RDW Coeff of [place] 13.5 Plt Count 308 MPV 9.7 Immature Gran % (Auto) 0.200 Neut % (Auto) 91.1 H Lymph % (Auto) 7.0 L [place] % (Auto) 1.4 Eos % (Auto) 0.2 Baso % (Auto) 0.1 Absolute Neuts (auto) 8.0 H Absolute Lymphs (auto) 0.62 L Nucleated RBC % 0 Sodium 140 Potassium 3.6 Chloride 110 H Carbon Dioxide 27.0 Anion Gap 3 L BUN 11 Creatinine 1.17 H Estim Creat Clear Calc 67.75 Est GFR (MDRD) Af Amer 69 Est GFR (MDRD) Non-Af 57 L BUN/Creatinine Ratio 9.4 L Glucose 120 H Calcium 9.3 Urine Color Yellow Urine Clarity Sl. Cloudy Urine pH 6.0 Ur Specific [place] 1.020 Urine Protein 30 H Urine Glucose (UA) Normal Urine Ketones 5 H Urine Occult Blood 25 H Urine Nitrite Negative Urine Bilirubin Negative Urine Urobilinogen 1 H Ur Leukocyte Esterase 500 H Urine RBC 0-5 SEEN Urine WBC 25-50 SEEN Ur Squamous Epith Cells 0-5 SEEN Urine Bacteria 1+ Urine Mucus 2+ Urine Test Negative Treatment and Re-Evaluation :: Patient appears generally well, patient appears nontoxic, vital signs are stable.Patient presents to the emergency department with back symptomology. Patient states she feels generally weak, intermittent abdominal cramping, overall just malaise. Patient was also concerned about her renal function, secondary to her creatinine being 1.135 days ago when she was seen. Patient did receive some basic laboratory values to compare, patient's CBC was unremarkable, patient's chemistries showed a creatinine of 1.17, this is only slightly different. Patient has no anion gap, patient's urinalysis does appear to be infectious, it was a clean sample showing bacteria 25-50 white blood count as well as 500 leukocyte Estrace. This will be sent for a culture. This could be the culprit while she continues to feel nauseous as well as, generalized weakness. Secondary to the full body symptomology, the patient be placed on Keflex 4 times a day for 7 days. Patient instructed to drink water, Gatorade. She is instructed to not drink caffeine such as pop as well as energy drinks for work. At this time there is no evidence suspect any pyelonephritis, septicemia. Patient and her partner were given discharge instructions, return precautions, all questions answered. <Dr. Tee Willett MD - Last Filed: 08/19/22 14:26> [facility] Narrative Medical decision making narrative: I have personally performed a face to face assessment of the patient and have reviewed the NAT Note. I performed a substantive portion of the visit including all aspects of the following. My archuleta findings include: History is remarkable for onset of symptoms approximately 1 week ago which are very vague. She complains of malaise, fatigue and lack of energy. Has had no documented fever. She does report nausea. She had mushy stools not watery loose stools. She denies myalgias arthralgias. She denies urologic symptoms. She denies symptoms of . She is on Depo injection and her boyfriend has had a vasectomy. Complains of vague head discomfort. She denies any visual, ocular auditory symptoms. Does have a slight cough. She denies dyspnea or dyspnea on exertion. She denies chest discomfort. She denies leg pain, swelling discoloration. Exam is uncapped. HEENT exam is unremarkable. Neck is supple. Lungs are clear to auscultation. Heart is regular. Rate is normal. There is no murmur, gallop or rub. Abdomen soft nontender. Is no [place] megaly. Decreased bowel sounds. There is no CVA tenderness noted. Lower extremity exam is unremarkable. Medical Decision Making patient has several vague symptoms. With history of renal insufficiency will obtain BMP. Her last creatinine was 1.13. Urgent care visit for dental complaint was reviewed. She has been seen in the ER for other minor symptoms. There is also an orthopedic note that was reviewed. Other additions or changes: [None] History & Record Review Additional record(s) reviewed:: Prior outpatient record and Prior ED visit Lab Data Attestation: I reviewed the patient's lab results. Lab results narrative: White count and H&H are unremarkable. Basic metabolic panel reveals slight elevation of creatinine of 1.17. Your cyst with infection. We will treat with cephalexin. Her dose of cephalexin does not need to be adjusted since her GFR is 57. Labs: Laboratory Results - last 24 hr 08/19/22 08/19/22 08/19/22 13:15 13:15 13:30 WBC 8.8 RBC 4.78 Hgb 14.4 Hct 44.3 MCV 92.7 MCH 30.1 MCHC 32.5 RDW Std Deviation 45.9 H RDW Coeff of [place] 13.5 Plt Count 308 MPV 9.7 Immature Gran % (Auto) 0.200 Neut % (Auto) 91.1 H Lymph % (Auto) 7.0 L [place] % (Auto) 1.4 Eos % (Auto) 0.2 Baso % (Auto) 0.1 Absolute Neuts (auto) 8.0 H Absolute Lymphs (auto) 0.62 L Nucleated RBC % 0 Sodium 140 Potassium 3.6 Chloride 110 H Carbon Dioxide 27.0 Anion Gap 3 L BUN 11 Creatinine 1.17 H Estim Creat Clear Calc 67.75 Est GFR (MDRD) Af Amer 69 Est GFR (MDRD) Non-Af 57 L BUN/Creatinine Ratio 9.4 L Glucose 120 H Calcium 9.3 Urine Color Yellow Urine Clarity Sl. Cloudy Urine pH 6.0 Ur Specific [place] 1.020 Urine Protein 30 H Urine Glucose (UA) Normal Urine Ketones 5 H Urine Occult Blood 25 H Urine Nitrite Negative Urine Bilirubin Negative Urine Urobilinogen 1 H Ur Leukocyte Esterase 500 H Urine RBC 0-5 SEEN Urine WBC 25-50 SEEN Ur Squamous Epith Cells 0-5 SEEN Urine Bacteria 1+ Urine Mucus 2+ Urine Test Negative Discharge Plan Triage Chief Complaint: General Illness ED Midlevel Provider: Sunil Bermeo ED Provider: Tee Willett Dx/Rx/DC Orders Clinical Impression: Urinary tract infection, Fatigue, Elevated serum creatinine Instructions: UTIs Understanding, ED Cystitis Female Adult Prescriptions: New cephalexin 500 mg capsule 500 mg PO Q6 7 Days Qty: 28 0RF ondansetron 4 mg tablet,disintegrating 4 mg PO Q8H PRN PRN (Reason: Nausea) Qty: 10 0RF No Action trazodone 50 mg tablet 50 mg PO QHS PRN (Reason: Sleep) fluoxetine 20 mg tablet 40 mg PO DAILY lidocaine 5 % adhesive patch,medicated 2 patch TOPICAL DAILY Qty: 60 3RF Rx Instructions: leave on most painful area for up to 12 hrs bupropion HCl [Wellbutrin SR] 150 mg tablet sustained-release 12 hr 150 mg PO QAM ibuprofen 800 mg tablet 800 mg PO Q8H PRN (Reason: pain) Qty: 60 1RF acetaminophen 500 mg tablet 500 mg PO Q6H PRN (Reason: fever or pain) Qty: 60 1RF prednisone 20 mg tablet 20 mg PO DAILY Qty: 5 0RF Vraylar 1.5 mg capsule 1.5 mg PO DAILY Qty: 60 2RF valacyclovir 500 mg tablet 500 mg PO DAILY ondansetron [ondansetron] 4 MG tablet 8 mg PO Q8H PRN PRN (Reason: Nausea) Qty: 20 0RF (DME) blood pressure monitor Kit See Rx Instructions .ROUTE .MEDSUPPLY Qty: 1 0RF Rx Instructions: Check blood pressure daily for hypertension I10 Symbicort 160-4.5 mcg/actuation HFA aerosol inhaler 2 puff INHALATION BID Qty: 10.2 3RF albuterol sulfate [ProAir HFA] 90 mcg/actuation HFA aerosol inhaler 1 - 2 puff inhalation Q6H PRN (Reason: shortness of breath or wheezing) Qty: 8.5 2RF sumatriptan succinate 25 mg tablet See Rx Instructions PO .COMPLEX Qty: 14 2RF Rx Instructions: take 1 tab at onset of headache; if no relief may repeat 1 tab in 2hr; max = 4 tabs/day (24hr) PO loratadine 10 mg capsule 10 mg PO DAILY Qty: 90 2RF ibuprofen 800 mg tablet 800 mg PO Q8H PRN (Reason: pain) Qty: 60 1RF gabapentin 400 mg capsule See Rx Instructions .ROUTE .COMPLEX Qty: 90 0RF Dose Instruction: take 1 capsule by mouth every 8 hours Rx Instructions: take 1 capsule by mouth every 8 hours Nurtec ODT 75 mg tablet,disintegrating See Rx Instructions .ROUTE .COMPLEX Qty: 8 0RF Dose Instruction: DISSOLVE 1 TABLET ON TOP OF TONGUE AND SWALLOW NEEDED FOR MIGRAINE HEADACHE Rx Instructions: DISSOLVE 1 TABLET ON TOP OF TONGUE AND SWALLOW NEEDED FOR MIGRAINE HEADACHE Primary Care Provider: Navi Kemp Referrals: Navi Kemp MD [Primary Care Provider] - Activity Restrictions/Additional Instructions: Please take antibiotics until finished. Ensure to drink plenty of water. Use Zofran as needed. Disposition Disposition: Home, Self Care
[2022-08-19 13:23] LABS: Absolute Lymphocyte Count 0.62 X10^3/uL (0.83-4.51); Basophil# 0.01 X10^3/uL; Basophil% 0.1 % (0-1); Eosinophil# 0.02 X10^3/uL; Eosinophils% 0.2 % (0-5); Hematocrit 44.3 % (37-47); Hemoglobin 14.4 g/dL (12.0-15.0); Lymphocyte # 0.62 X10^3/ul (0.83-4.51); Mean Corp Hgb Conc 32.5 g/dL (32-36); Mean Corpuscular Hgb 30.1 pg (27.0-32.0); Mean Corpuscular Volume 92.7 fL (81-99); Mean Platelet Vol. 9.7 fl (6.2-12.0); Monocyte# 0.12 X10^3/uL; Monocyte% 1.4 % (0-10); NRBC Flagged by Analyzer 0 % (0-5); Neutrophil # 8.04 X10^3/uL (2.7-7.7); Neutrophil % 91.1 % (47-70); Platelet Count 308 K/mm3 (150-450); RBC Distribution Width CV 13.5 % (11.6-14.6); RBC Distribution Width SD 45.9 fl (35.1-43.9); Red Blood Count 4.78 M/mm3 (4.2-5.4); White Blood Count 8.8 K/mm3 (4.4-11.0)
[2022-08-19] MEDS: Ondansetron 4 MG/2 ML Vial IV (13:25)
[2022-08-19] MEDS: 0.9% Normal Saline 1,000 ML 1000 ML IV (13:25)
[2022-08-19 13:35] LABS: Anion Gap 3 (5-15); BUN 11 mg/dL (7-18); BUN/Creat Ratio 9.4 RATIO (10-20); Calcium,Total 9.3 mg/dL (8.5-10.1); Chloride 110 mmol/L (98-107); Creatinine, Serum 1.17 mg/dL (0.55-1.02); EST Glomerular Filtration Rate 57 mL/min (>60); Est Glom Filt Rate - Afr Amer 69 mL/min (>60); Estimated Creatinine Clearance 67.75 ml/min; Glucose 120 mg/dL (74-106); Potassium 3.6 mmol/L (3.5-5.1); Sodium Level 140 mmol/L (136-145)
[2022-08-19 13:48] LABS: Color, Urine Yellow (Yellow); Glucose, Dipstick Normal (Normal); Ketone-Dipstick 5 mg/dl (Negative); Leukocyte Esterase-Dipstick 500 /ul (Negative); Nitrite-Dipstick Negative (Negative); Occult Blood-Urine 25 /ul (Negative); Protein-Dipstick 30 mg/dl (Negative); Urine Bilirubin Dipstick Negative (Negative); Urine Clarity Sl. Cloudy (Clear); Urine Urobilinogen 1 mg/dl (Normal)
[2022-08-19 13:56] LABS: Bacteria 1+ /hpf (None Seen); Internal QC Validated? YES +Cl - CLEAR BKGD; Mucous, Urine 2+ /hpf (<or=2+); Pregnancy, Urine Negative Negative; Red Blood Cells-Urine 0-5 SEEN /hpf (0-5); Squamous Epithelial Cells - UA 0-5 SEEN /hpf (5-10); White Blood Cells 25-50 SEEN /hpf (0-5)
[2022-08-19] MEDS: Cephalexin 250 MG Capsule 500 MG PO (14:34)
== END 2022-08-19 14:42 | disposition home or self-care (01) ==
PROVIDERS: Nurse Practitioner; Emergency Provider Emergency Medicine; PCP Internal Medicine; Visit Provider Emergency Medicine
DX: N39.0 Urinary tract infection, site not specified (principal); R79.89 Other specified abnormal findings of blood chemistry; F17.210 Nicotine dependence, cigarettes, uncomplicated; F17.290 Nicotine dependence, other tobacco product, uncomplicated
CPT/HCPCS: 80048; 81001; 81025; 85025; 87086; 87088; 96361; 96374; 99281; 99283; J7030; A4216; J2405

== ENCOUNTER 2022-09-11 16:33 | Emergency (ER) | payer MEDICAID, SELFPAY ==
[2022-09-11 16:33] VITALS: BP 123/75; PULSE 113; RESP 16; TEMP 36.6; O2SAT 98; BMI 28.1
--- NOTE | 2022-09-11 19:05 | EX.ED.DYSGE1 ---
HPI History of Present Illness Chief Complaint: Dental Detail of Chief Complaint: Toe pain and lower teeth and headache Informant: patient Onset/Context/Timing Onset: - (Dental pain has been recurrent headache started at 1330) Context: Sudden Onset Timing: Continuous (Headache continuous since onset) and Intermittent (Teeth pain has been intermittent) Quality: Pain Location: Lower teeth and had Current Severity: Severe Maximum Severity: Severe Worsened by: Nothing specific Relieved by: Nothing Associated Symptoms Associated Symptoms: Nausea, photophobia and sonophobia Narrative Narrative: Patient is a 31-year-old woman with history of migraine headaches she took her migraine medicine at 1330 with no improvement. She has a bilateral headache that is throbbing with photophobia phonophobia. Denies rhinorrhea, congestion, postnasal drainage or sore throat. Denies trouble with speech or swallowing. She denies paresthesia, anesthesia or motor weakness. She denies ocular or visual symptoms. She denies neck pain or neck stiffness. She denies vomiting or diarrhea. She denies urologic symptoms. She complains of dental pain. She contacted her dentist. Dentist recommended she come to the emergency room because the pain was severe . She denies trismus. She denies intolerance to cold or hot liquids. Prior similar symptoms: Yes Recent Illness/Hospitalization: No [facility] Medical History Abnormal kidney function Acute maxillary sinusitis, unspecified Alcohol abuse Anxiety and depression Asthma Back problem Bee sting Bipolar 1 disorder Bone fracture Cellulitis of left foot Chronic bronchitis Chronic dental pain Chronic headaches Chronic low back pain Chronic neck pain Contact with and (suspected) exposure to other viral communicable diseases Drug abuse Encounter for screening for COVID-19 GERD (gastroesophageal reflux disease) Hearing loss in left ear Hx of emotional problems Left ankle sprain Lumbar radiculopathy Pneumonia PTSD (post-traumatic stress disorder) Right elbow pain Seasonal allergies URI (upper respiratory infection) URI (upper respiratory infection) Vertigo Vision problem Home Medications blood pressure monitor #1 ea 10/29/19 [Rx Last Taken Unknown] trazodone 50 mg tablet 50 mg PO QHS PRN Sleep 03/25/20 [History Last Taken Unknown] valacyclovir 500 mg tablet 500 mg PO DAILY 11/05/20 [History Last Taken Unknown] budesonide-formoterol HFA 160 mcg-4.5 mcg/actuation aerosol inhaler (Symbicort) 2 puff inhalation BID #10.2 grams 12/16/20 [Rx Last Taken Unknown] albuterol sulfate 90 mcg/actuation aerosol inhaler (ProAir HFA) 1 - 2 puff inhalation Q6H PRN shortness of breath or wheezing #8.5 grams 08/24/21 [Rx Last Taken Unknown] fluoxetine 20 mg tablet 40 mg PO DAILY 10/12/21 [History Last Taken Unknown] sumatriptan succinate 25 mg tablet See Rx Instructions PO .COMPLEX migraine #14 tabs 11/09/21 [Rx Last Taken Unknown] lidocaine 5 % topical patch 2 patch topical DAILY #60 ea 12/09/21 [Rx Last Taken Unknown] loratadine 10 mg capsule 10 mg PO DAILY #90 caps 04/10/22 [Rx Last Taken Unknown] ondansetron 4 mg disintegrating tablet 8 mg PO Q8H PRN PRN Nausea #20 tabs 06/10/22 [Rx Last Taken Unknown] bupropion HCl 150 mg tablet,12 hr sustained-release (Wellbutrin SR) 150 mg PO QAM 07/05/22 [History Last Taken Unknown] ibuprofen 800 mg tablet 800 mg PO Q8H PRN pain #60 tabs 07/12/22 [Rx Last Taken Unknown] acetaminophen 500 mg tablet 500 mg PO Q6H PRN fever or pain #60 tabs 07/18/22 [Rx Last Taken Unknown] ibuprofen 800 mg tablet 800 mg PO Q8H PRN pain #60 tabs 07/18/22 [Rx Last Taken Unknown] rimegepant 75 mg disintegrating tablet (Nurtec ODT) See Rx Instructions .Route .COMPLEX #8 tabs 07/31/22 [Rx Last Taken Unknown] cariprazine 1.5 mg capsule (Vraylar) 1.5 mg PO DAILY #60 caps 08/16/22 [Rx Last Taken Unknown] prednisone 20 mg tablet 20 mg PO DAILY #5 tabs 08/16/22 [Rx Last Taken Unknown] cephalexin 500 mg capsule 500 mg PO Q6 7 days #28 CAPSULES 08/19/22 [Rx Last Taken Unknown] ondansetron 4 mg disintegrating tablet 4 mg PO Q8H PRN PRN Nausea #10 tabs 08/19/22 [Rx Last Taken Unknown] gabapentin 400 mg capsule See Rx Instructions .Route .COMPLEX #90 caps 09/04/22 [Rx Last Taken Unknown] Allergy/AdvReac Type Severity Reaction Status Date / Time zinc oxide Allergy Unknown Verified 09/11/22 16:39 naproxen [From Naprosyn] AdvReac Nausea Verified 09/11/22 16:39 Family History Unknown Alcoholism Anxiety Asthma Depression Myocardial infarction Suicide attempt Other Cancer Surgical History History of cholecystectomy History of laparoscopic appendectomy History of oral surgery Social History Smoking Status: Current every day smoker tobacco type: cigarettes and e-cigarettes alcohol intake: former year quit: 2014 substance use type: 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, methamphetamine and other what type of physical activity do you participate in: yoga and weight training frequency: 3-4 times per week ROS ROS ED Constitutional Constitutional ED: Denies chills, fever(s), subjective, sweats or weight loss Eyes Eyes: Denies blurry vision, change in vision or diplopia ENT ENT ED: Denies ear pain, rhinorrhea or sore throat Cardiovascular Cardiovascular: Denies chest pain, orthopnea, palpitations, paroxysmal nocturnal dyspnea or racing heartbeat Respiratory/Chest Respiratory/Chest: Denies cough, dyspnea, dyspnea on exertion, orthopnea or paroxysmal nocturnal dyspnea Gastrointestinal Gastrointestinal: Reports nausea; Denies abdominal pain, constipation, diarrhea, melena or vomiting Genitourinary Genitourinary ED: Denies dysuria, hematuria or urinary frequency Musculoskeletal Musculoskeletal: Denies arthralgias, back pain, myalgias or neck pain Integumentary Denies abscess or rash Neurologic Neurologic: Reports headache(s); Denies paresthesias or weakness Psychiatric Psychiatric: Reports anxiety and depression Hematologic/Lymphatic Hematologic/Lymphatic: Reports systems reviewed and no addt'l complaints, except as documented EXAM Physical Exam Const Vital Signs: 09/11/22 16:33 Temperature 97.8 F Temperature Source Temporal Pulse Rate 113 H Respiratory Rate 16 Blood Pressure 123/75 H Blood Pressure Mean 91 Pulse Ox 98 Oxygen Delivery Method Room Air Positive well nourished and well developed Constitutional Narrative: Patient has a flat affect. She does appear uncomfortable. General Appearance ED: well developed; Negative for cyanotic, diaphoretic or pallor HEENT Reports moist mucous membranes HEENT Narrative: Has dental caries, gingivitis and periodontal disease. There is no trismus. Posterior pharynx is normal. There is no evidence of Ludewig's angina. There is no facial swelling or cellulitis. Eyes PERRL and EOMs intact bilaterally General Eye ED: Negative for pale conjunctiva or scleral icterus Neck no lymphadenopathy, supple and no JVD Chest Wall inspection of chest normal and palpation of chest normal Resp normal respiratory effort and clear to auscultation bilaterally Cardio regular rate, regular rhythm, S1 normal heart sound, S2 normal heart sound and no murmurs GI normal to inspection, nondistended, normoactive bowel sounds, non-tender, non-distended and no masses; Negative for hepatosplenomegaly Extremity normal to inspection General Extremety ED: Negative for edema or tenderness General Extremity: Negative for edema Neuro oriented x3, CN's II-XII intact bilaterally and no sensory deficits noted Neuro Narrative: There is no clonus or Babinski sign right or left. There is no dysmetria. Sensorium / Orientation: alert Motor Exam: strength 5/5 throughout Psych Mood & Affect: depressed Skin no rashes or lesions noted, no wounds and skin turgor normal General Skin Exam: Negative for jaundice or pallor MDM MDM MDM Narrative Medical decision making narrative: Patient with migraine. Will treat with migraine meds. Suspect patient's dental pain is due to dental caries. Presently there is no evidence or concern for apical or periodontal abscess. Patient was reassessed at 1816. Her headache is improved markedly. Patient was informed she needs to see a dentist. Has an appointment to be seen by dentist on . Since there is no clinical findings or historical findings suggestive of abscess she was not treated with antibiotics. She was told that opiates can cause rebound migraine headache and reason she was not prescribed opiates. Discharge Plan Triage Chief Complaint: Dental ED Provider: Tee Willett Dx/Rx/DC Orders Clinical Impression: Migraine aura without headache, Pain, dental, Gingivitis, Chronic periodontal disease Instructions: ED Dental Pain, ED, Migraine (Classical) Prescriptions: No Action trazodone 50 mg tablet 50 mg PO QHS PRN (Reason: Sleep) fluoxetine 20 mg tablet 40 mg PO DAILY lidocaine 5 % adhesive patch,medicated 2 patch TOPICAL DAILY Qty: 60 3RF Rx Instructions: leave on most painful area for up to 12 hrs bupropion HCl [Wellbutrin SR] 150 mg tablet sustained-release 12 hr 150 mg PO QAM ibuprofen 800 mg tablet 800 mg PO Q8H PRN (Reason: pain) Qty: 60 1RF acetaminophen 500 mg tablet 500 mg PO Q6H PRN (Reason: fever or pain) Qty: 60 1RF prednisone 20 mg tablet 20 mg PO DAILY Qty: 5 0RF Vraylar 1.5 mg capsule 1.5 mg PO DAILY Qty: 60 2RF valacyclovir 500 mg tablet 500 mg PO DAILY ondansetron [ondansetron] 4 MG tablet 8 mg PO Q8H PRN PRN (Reason: Nausea) Qty: 20 0RF cephalexin 500 mg capsule 500 mg PO Q6 7 Days Qty: 28 0RF ondansetron 4 mg tablet,disintegrating 4 mg PO Q8H PRN PRN (Reason: Nausea) Qty: 10 0RF (DME) blood pressure monitor Kit See Rx Instructions .ROUTE .MEDSUPPLY Qty: 1 0RF Rx Instructions: Check blood pressure daily for hypertension I10 Symbicort 160-4.5 mcg/actuation HFA aerosol inhaler 2 puff INHALATION BID Qty: 10.2 3RF albuterol sulfate [ProAir HFA] 90 mcg/actuation HFA aerosol inhaler 1 - 2 puff inhalation Q6H PRN (Reason: shortness of breath or wheezing) Qty: 8.5 2RF sumatriptan succinate 25 mg tablet See Rx Instructions PO .COMPLEX Qty: 14 2RF Rx Instructions: take 1 tab at onset of headache; if no relief may repeat 1 tab in 2hr; max = 4 tabs/day (24hr) PO loratadine 10 mg capsule 10 mg PO DAILY Qty: 90 2RF ibuprofen 800 mg tablet 800 mg PO Q8H PRN (Reason: pain) Qty: 60 1RF Nurtec ODT 75 mg tablet,disintegrating See Rx Instructions .ROUTE .COMPLEX Qty: 8 0RF Dose Instruction: DISSOLVE 1 TABLET ON TOP OF TONGUE AND SWALLOW NEEDED FOR MIGRAINE HEADACHE Rx Instructions: DISSOLVE 1 TABLET ON TOP OF TONGUE AND SWALLOW NEEDED FOR MIGRAINE HEADACHE gabapentin 400 mg capsule See Rx Instructions .ROUTE .COMPLEX Qty: 90 1RF Dose Instruction: take 1 capsule by mouth every 8 hours Rx Instructions: take 1 capsule by mouth every 8 hours; Primary Care Provider: Navi Kemp Referrals: Navi Kemp MD [Primary Care Provider] - Dentist,Your [STAFF PHYSICIAN] - Keep Pat appointment Activity Restrictions/Additional Instructions: Take either for ibuprofen tablets every 8 hours or 2 Aleve tablets every 12 hours. Disposition Disposition: Home, Self Care
[2022-09-11] MEDS: DiphenhydrAMINE 50 MG/ML Syringe 25 MG IV (19:27)
[2022-09-11] MEDS: Ketorolac 15 MG/ML Vial IV (19:27)
[2022-09-11] MEDS: Metoclopramide 10 MG/2 ML Vial IV (19:27)
== END 2022-09-11 20:30 | disposition home or self-care (01) ==
PROVIDERS: Emergency Provider Emergency Medicine; PCP Internal Medicine; Visit Provider Emergency Medicine
DX: G43.109 Migraine with aura, not intractable, without status migrainosus (principal); K08.89 Other specified disorders of teeth and supporting structures; F17.210 Nicotine dependence, cigarettes, uncomplicated; K05.10 Chronic gingivitis, plaque induced
CPT/HCPCS: 96374; 96375; 99282; A4216

== ENCOUNTER → 2022-09-14 | Outpatient (CLI) | payer MEDICAID, SELFPAY ==
[2022-09-14 11:14] LABS: Red Blood Cells-Urine 0 SEEN /hpf (0-5)
[2022-09-14 12:18] LABS: Color, Urine Yellow (Yellow); Glucose, Dipstick Normal (Normal); Ketone-Dipstick Negative (Negative); Leukocyte Esterase-Dipstick 500 /ul (Negative); Nitrite-Dipstick Negative (Negative); Occult Blood-Urine 10 /ul (Negative); Protein-Dipstick 30 mg/dl (Negative); Specific Gravity, Urine 1.025 (1.002-1.030); Urine Bilirubin Dipstick Negative (Negative); Urine Clarity Sl. Cloudy (Clear); Urine Urobilinogen Normal (Normal)
[2022-09-14 12:25] LABS: Bacteria 1+ /hpf (None Seen); Mucous, Urine RARE /hpf (<or=2+); Squamous Epithelial Cells - UA 0-5 SEEN /hpf (5-10); White Blood Cells 0-5 SEEN /hpf (0-5)
== END | disposition home or self-care (01) ==
LOC: LABSPEC 11:11
PROVIDERS: PCP Internal Medicine; Referring Provider Internal Medicine; Visit Provider Internal Medicine
DX: R10.2 Pelvic and perineal pain (principal)
CPT/HCPCS: 81001; 87086; 87088

== ENCOUNTER 2022-09-19 17:15 | Emergency (ER) | payer MEDICAID, SELFPAY ==
[2022-09-19 17:16] VITALS: BP 156/78; PULSE 78; RESP 16; TEMP 36.4; O2SAT 98; BMI 29.0
[2022-09-19] MEDS: HYDROcodone Bitartrate/Apap 5/325 Tablet PO (17:56)
--- NOTE | 2022-09-19 17:58 | EDS_ITS ---
HPI History of Present Illness Chief Complaint: Dental Informant: patient Narrative Narrative: 4 days post right lower dental extraction from [facility]. Currently on amoxicillin. Tylenol ibuprofen. Increasing pain since yesterday. No fevers. No trouble swallowing. Initially reported in July had a root canal that did not work therefore extraction was performed. Prior similar symptoms: Yes [facility] Medical History Abnormal kidney function Acute maxillary sinusitis, unspecified Alcohol abuse Anxiety and depression Asthma Back problem Bee sting Bipolar 1 disorder Bone fracture Cellulitis of left foot Chronic bronchitis Chronic dental pain Chronic headaches Chronic low back pain Chronic neck pain Contact with and (suspected) exposure to other viral communicable diseases Drug abuse Encounter for screening for COVID-19 GERD (gastroesophageal reflux disease) Hearing loss in left ear Hx of emotional problems Left ankle sprain Lumbar radiculopathy Pneumonia PTSD (post-traumatic stress disorder) Right elbow pain Seasonal allergies Suprapubic discomfort URI (upper respiratory infection) URI (upper respiratory infection) Vertigo Vision problem Home Medications blood pressure monitor #1 ea 10/29/19 [Rx Last Taken Unknown] trazodone 50 mg tablet 50 mg PO QHS PRN Sleep 03/25/20 [History Last Taken Unknown] valacyclovir 500 mg tablet 500 mg PO DAILY 11/05/20 [History Last Taken Unknown] budesonide-formoterol HFA 160 mcg-4.5 mcg/actuation aerosol inhaler (Symbicort) 2 puff inhalation BID #10.2 grams 12/16/20 [Rx Last Taken Unknown] albuterol sulfate 90 mcg/actuation aerosol inhaler (ProAir HFA) 1 - 2 puff inhalation Q6H PRN shortness of breath or wheezing #8.5 grams 08/24/21 [Rx Last Taken Unknown] fluoxetine 20 mg tablet 40 mg PO DAILY 10/12/21 [History Last Taken Unknown] sumatriptan succinate 25 mg tablet See Rx Instructions PO .COMPLEX migraine #14 tabs 11/09/21 [Rx Last Taken Unknown] lidocaine 5 % topical patch 2 patch topical DAILY #60 ea 12/09/21 [Rx Last Taken Unknown] loratadine 10 mg capsule 10 mg PO DAILY #90 caps 04/10/22 [Rx Last Taken Unknown] bupropion HCl 150 mg tablet,12 hr sustained-release (Wellbutrin SR) 150 mg PO QAM 07/05/22 [History Last Taken Unknown] ibuprofen 800 mg tablet 800 mg PO Q8H PRN pain #60 tabs 07/12/22 [Rx Last Taken Unknown] acetaminophen 500 mg tablet 500 mg PO Q6H PRN fever or pain #60 tabs 07/18/22 [Rx Last Taken Unknown] cariprazine 1.5 mg capsule (Vraylar) 1.5 mg PO DAILY #60 caps 08/16/22 [Rx Last Taken Unknown] gabapentin 400 mg capsule See Rx Instructions .Route .COMPLEX #90 caps 09/04/22 [Rx Last Taken Unknown] amoxicillin 500 mg capsule 500 mg PO TID 09/19/22 [History Last Taken Unknown] hydrocodone-acetaminophen 5-325mg 5mg-325mg 1 tab PO Q6H PRN PRN Pain 3 days #10 TABLETS 09/19/22 [Rx Last Taken Unknown] rimegepant 75 mg disintegrating tablet (Nurtec ODT) 75 mg PO DAILY PRN PRN Migraine Headache 09/19/22 [History Last Taken Unknown] Allergy/AdvReac Type Severity Reaction Status Date / Time zinc oxide Allergy Unknown Verified 09/19/22 17:16 naproxen [From Naprosyn] AdvReac Nausea Verified 09/19/22 17:16 Family History Unknown Alcoholism Anxiety Asthma Depression Myocardial infarction Suicide attempt Other Cancer Surgical History History of cholecystectomy History of laparoscopic appendectomy History of oral surgery Social History Smoking Status: Current every day smoker tobacco type: cigarettes and e- cigarettes alcohol intake: former year quit: 2014 substance use type: 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, methamphetamine and other what type of physical activity do you participate in: yoga and weight training frequency: 3-4 times per week ROS ROS ED Constitutional Constitutional ED: Denies chills, fever(s) or sweats Eyes Eyes: Denies change in vision ENT ENT ED: Reports other Details: Dental pain ; Denies dysphagia or sore throat Cardiovascular Cardiovascular: Denies chest pain, leg edema, palpitations or racing heartbeat Respiratory/Chest Respiratory/Chest: Denies cough, dyspnea or dyspnea on exertion Gastrointestinal Gastrointestinal: Denies abdominal pain, diarrhea, nausea or vomiting Genitourinary Genitourinary ED: Denies dysuria, hematuria or urinary frequency Musculoskeletal Musculoskeletal: Denies back pain, extremity pain or neck pain Integumentary Denies rash or wounds Neurologic Neurologic: Denies headache(s), paresthesias or weakness EXAM Physical Exam Const Vital Signs: 09/19/22 17:16 Temperature 97.6 F L Temperature Source Temporal Pulse Rate 78 Respiratory Rate 16 Blood Pressure 156/78 H Blood Pressure Mean 104 Pulse Ox 98 Oxygen Delivery Method Room Air Positive well nourished and well developed General Appearance ED: well developed and NAD HEENT Reports moist mucous membranes HEENT Narrative: Recently removal extracted tooth #31. No sublingual edema, no focal abscess. No swelling. No drainage. normocephalic and atraumatic Eyes PERRL, EOMs intact bilaterally and conjunctivae normal General Eye ED: Yes normal appearance of both eyes Neck no lymphadenopathy and supple General: Negative for tenderness Chest Wall Chest: Negative for tenderness Resp normal respiratory effort and normal air movement Effort and Inspection: symmetric chest movement; Negative for respiratory distress Cardio regular rate, regular rhythm and no murmurs Peripheral Pulses: pulses 2+ throughout GI normal to inspection, nondistended, normoactive bowel sounds and non-tender Palpation: Negative for guarding or rebound tenderness present Back/Spine no CVA tenderness and no thoracic nor lumbar tenderness Extremity normal to inspection General Extremety ED: Negative for edema or tenderness General Extremity: Negative for edema Neuro oriented x3 and no sensory deficits noted Sensorium / Orientation: awake and alert Skin no rashes or lesions noted and no wounds MDM MDM MDM Narrative Medical decision making narrative: Interventions / MDM: Differential diagnosis: Postextraction dental pain, Diagnosis considered but do not suspect: No clinical abscess. My EKG interpretation: N/A Imaging independently reviewed and interpreted by myself: N/A External documents reviewed: N/A Test considered but not ordered:N/A ED course: Patient with no signs of infection postextraction there is no swelling. No drainage. No indication for any image studies. She is using mouth rinse. [facility] report no last prescription was July for oxycodone. No overlap. Treated hydrocodone in the ED. She will continue her mouth rinse and her antibiotics. She will follow-up with her dentist for outpatient reevaluation. All questions were answered. Re-evaluation: stable Disposition discussed with patient/family/significant other: Patient Case discussed with consulting clinician: N/A Discharge Plan Triage Chief Complaint: Dental ED Provider: Jesus Mahoney Dx/Rx/DC Orders Clinical Impression: Dentalgia, Status post tooth extraction Instructions: ED Dental Pain Prescriptions: New hydrocodone-acetaminophen [hydrocodone-acetaminophen] 5-325 mg tablet 1 tab PO Q6H PRN PRN (Reason: Pain) 3 Days Qty: 10 0RF No Action trazodone 50 mg tablet 50 mg PO QHS PRN (Reason: Sleep) fluoxetine 20 mg tablet 40 mg PO DAILY lidocaine 5 % adhesive patch,medicated 2 patch TOPICAL DAILY Qty: 60 3RF Rx Instructions: leave on most painful area for up to 12 hrs bupropion HCl [Wellbutrin SR] 150 mg tablet sustained-release 12 hr 150 mg PO QAM acetaminophen 500 mg tablet 500 mg PO Q6H PRN (Reason: fever or pain) Qty: 60 1RF Vraylar 1.5 mg capsule 1.5 mg PO DAILY Qty: 60 2RF valacyclovir 500 mg tablet 500 mg PO DAILY amoxicillin 500 mg capsule 500 mg PO TID Nurtec ODT 75 mg tablet,disintegrating 75 mg PO DAILY PRN PRN (Reason: Migraine Headache) (DME) blood pressure monitor Kit See Rx Instructions .ROUTE .MEDSUPPLY Qty: 1 0RF Rx Instructions: Check blood pressure daily for hypertension I10 Symbicort 160-4.5 mcg/actuation HFA aerosol inhaler 2 puff INHALATION BID Qty: 10.2 3RF albuterol sulfate [ProAir HFA] 90 mcg/actuation HFA aerosol inhaler 1 - 2 puff inhalation Q6H PRN (Reason: shortness of breath or wheezing) Qty: 8.5 2RF sumatriptan succinate 25 mg tablet See Rx Instructions PO .COMPLEX Qty: 14 2RF Rx Instructions: take 1 tab at onset of headache; if no relief may repeat 1 tab in 2hr; max = 4 tabs/day (24hr) PO loratadine 10 mg capsule 10 mg PO DAILY Qty: 90 2RF ibuprofen 800 mg tablet 800 mg PO Q8H PRN (Reason: pain) Qty: 60 1RF gabapentin 400 mg capsule See Rx Instructions .ROUTE .COMPLEX Qty: 90 1RF Dose Instruction: take 1 capsule by mouth every 8 hours Rx Instructions: take 1 capsule by mouth every 8 hours; Primary Care Provider: Navi Kemp Referrals: Navi Kemp MD [Primary Care Provider] - Activity Restrictions/Additional Instructions: Finish antibiotics continue your ibuprofen, hydrocodone as needed. Follow-up with your dentist for reevaluation. Disposition Disposition: Home, Self Care
== END 2022-09-19 18:18 | disposition home or self-care (01) ==
LOC: ED 18:03
PROVIDERS: Emergency Provider Emergency Medicine; PCP Internal Medicine; Visit Provider Emergency Medicine
DX: K08.89 Other specified disorders of teeth and supporting structures (principal); F17.210 Nicotine dependence, cigarettes, uncomplicated; G89.29 Other chronic pain; F41.9 Anxiety disorder, unspecified; F32.A Depression, unspecified; Z79.899 Other long term (current) drug therapy
CPT/HCPCS: 99283

== ENCOUNTER 2022-09-27 13:08 | Emergency (ER) | payer MEDICAID, SELFPAY ==
[2022-09-27 13:09] VITALS: BP 133/77; PULSE 65; RESP 16; TEMP 36.6; O2SAT 98; BMI 28.2
--- NOTE | 2022-09-27 13:43 | EX.ED.VIS.HA ---
HPI History of Present Illness Chief Complaint: Headache Informant: patient Onset/Context/Timing Onset: Days (2) Context: Gradual Timing: Continuous Quality -Headache: Positive for Similar Prior Headaches Location: Left side of her head Worsened by: Light, loud noises Relieved by: Nothing Associated Symptoms/Injury Associated Symptoms: Positive for Nausea, Blurred Vision and Photophobia; Negative for Fever, Vomiting, Sore Throat, Sinus Pressure, Numbness, Tingling, Preceding Aura or Visual Loss Narrative Narrative: Patient presents with migraine headache. Patient states this is similar to prior migraine headaches. Patient states this has been constant for the past 3 days. Patient states she woke up with her headache 2 days ago. Patient states she was having difficulty getting her Nurtec prescription filled. Patient states she was able to get that filled today and took 1 dose with no improvement. Patient states her pain is over the left side of her head. Patient states that it is worse with lights and loud noises. Patient admits to nausea but denies any vomiting. Patient admits to some blurry vision and photophobia. Patient denies any scotoma. Patient denies any paresthesias or weakness. [facility] Medical History Abnormal kidney function Acute maxillary sinusitis, unspecified Alcohol abuse Anxiety and depression Asthma Back problem Bee sting Bipolar 1 disorder Bone fracture Cellulitis of left foot Chronic bronchitis Chronic dental pain Chronic headaches Chronic low back pain Chronic neck pain Contact with and (suspected) exposure to other viral communicable diseases Drug abuse Encounter for screening for COVID-19 GERD (gastroesophageal reflux disease) Hearing loss in left ear Hx of emotional problems Left ankle sprain Lumbar radiculopathy Pneumonia PTSD (post-traumatic stress disorder) Right elbow pain Seasonal allergies Suprapubic discomfort URI (upper respiratory infection) URI (upper respiratory infection) Vertigo Vision problem Home Medications blood pressure monitor #1 ea 10/29/19 [Rx Last Taken Unknown] trazodone 50 mg tablet 50 mg PO QHS PRN Sleep 03/25/20 [History Last Taken Unknown] valacyclovir 500 mg tablet 500 mg PO DAILY 11/05/20 [History Last Taken Unknown] budesonide-formoterol HFA 160 mcg-4.5 mcg/actuation aerosol inhaler (Symbicort) 2 puff inhalation BID #10.2 grams 12/16/20 [Rx Last Taken Unknown] albuterol sulfate 90 mcg/actuation aerosol inhaler (ProAir HFA) 1 - 2 puff inhalation Q6H PRN shortness of breath or wheezing #8.5 grams 08/24/21 [Rx Last Taken Unknown] fluoxetine 20 mg tablet 40 mg PO DAILY 10/12/21 [History Last Taken Unknown] sumatriptan succinate 25 mg tablet See Rx Instructions PO .COMPLEX migraine #14 tabs 11/09/21 [Rx Last Taken Unknown] lidocaine 5 % topical patch 2 patch topical DAILY #60 ea 12/09/21 [Rx Last Taken Unknown] loratadine 10 mg capsule 10 mg PO DAILY #90 caps 04/10/22 [Rx Last Taken Unknown] bupropion HCl 150 mg tablet,12 hr sustained-release (Wellbutrin SR) 150 mg PO QAM 07/05/22 [History Last Taken Unknown] ibuprofen 800 mg tablet 800 mg PO Q8H PRN pain #60 tabs 07/12/22 [Rx Last Taken Unknown] acetaminophen 500 mg tablet 500 mg PO Q6H PRN fever or pain #60 tabs 07/18/22 [Rx Last Taken Unknown] cariprazine 1.5 mg capsule (Vraylar) 1.5 mg PO DAILY #60 caps 08/16/22 [Rx Last Taken Unknown] gabapentin 400 mg capsule See Rx Instructions .Route .COMPLEX #90 caps 09/04/22 [Rx Last Taken Unknown] amoxicillin 500 mg capsule 500 mg PO TID 09/19/22 [History Last Taken Unknown] hydrocodone-acetaminophen 5-325mg 5mg-325mg 1 tab PO Q6H PRN PRN Pain 3 days #10 TABLETS 09/19/22 [Rx Last Taken Unknown] rimegepant 75 mg disintegrating tablet (Nurtec ODT) See Rx Instructions .Route .COMPLEX #8 TABLETS 09/25/22 [Rx Last Taken Unknown] Allergy/AdvReac Type Severity Reaction Status Date / Time zinc oxide Allergy Unknown Verified 09/27/22 13:10 naproxen [From Naprosyn] AdvReac Nausea Verified 09/27/22 13:10 Family History Unknown Alcoholism Anxiety Asthma Depression Myocardial infarction Suicide attempt Other Cancer Surgical History History of cholecystectomy History of laparoscopic appendectomy History of oral surgery Social History Smoking Status: Current every day smoker tobacco type: cigarettes and e-cigarettes alcohol intake: former year quit: 2014 substance use type: 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, methamphetamine and other what type of physical activity do you participate in: yoga and weight training frequency: 3-4 times per week ROS ROS ED Constitutional Constitutional ED: Reports sweats; Denies chills or fever(s) Eyes Eyes: Reports blurry vision; Denies diplopia ENT ENT ED: Denies rhinorrhea or sore throat Cardiovascular Cardiovascular: Denies chest pain or palpitations Respiratory/Chest Respiratory/Chest: Denies cough or dyspnea Gastrointestinal Gastrointestinal: Reports nausea; Denies vomiting Genitourinary Genitourinary ED: Denies dysuria or hematuria Musculoskeletal Musculoskeletal: Reports neck pain; Denies back pain Integumentary Denies abscess or rash Neurologic Neurologic: Reports headache(s); Denies weakness Allergic/Immunologic Allergic/Immunologic ED: Denies mouth swelling or urticaria EXAM Physical Exam Const Vital Signs: 09/27/22 13:09 Temperature 98 F Temperature Source Temporal Pulse Rate 65 Respiratory Rate 16 Blood Pressure 133/77 H Blood Pressure Mean 95 Pulse Ox 98 Oxygen Delivery Method Room Air Positive well nourished and well developed General Appearance ED: well developed HEENT Reports moist mucous membranes Neck supple and no JVD Resp normal respiratory effort and clear to auscultation bilaterally Cardio regular rate, regular rhythm and no murmurs GI normal to inspection, nondistended, normoactive bowel sounds and non-tender Palpation: soft Extremity normal to inspection General Extremety ED: Negative for edema or tenderness General Extremity: Negative for edema Neuro oriented x3, CN's II-XII intact bilaterally and no sensory deficits noted Sensorium / Orientation: alert Motor Exam: strength 5/5 throughout Psych mental status grossly normal Skin no rashes or lesions noted MDM MDM MDM Narrative Medical decision making narrative: Patient states this feels similar to prior migraine headaches. Therefore, this will be treated similar to prior migraine headaches. Patient was given IV fluids. Patient was given Reglan, Benadryl, and Toradol. Treatment and Re-Evaluation Narrative: Patient is better on reevaluation. Patient states her headache is nearly completely resolved. Patient wants to go home. Patient was instructed to rest in a dark quiet room. Patient was instructed to follow-up with her primary care physician in 5 to 7 days. Patient understands and is agreeable with the plan. All questions were answered. Discharge Plan Triage Chief Complaint: Headache ED Provider: Kaleb Molina Dx/Rx/DC Orders Clinical Impression: Migraines Instructions: ED, Migraine (Classical) Prescriptions: No Action trazodone 50 mg tablet 50 mg PO QHS PRN (Reason: Sleep) fluoxetine 20 mg tablet 40 mg PO DAILY lidocaine 5 % adhesive patch,medicated 2 patch TOPICAL DAILY Qty: 60 3RF Rx Instructions: leave on most painful area for up to 12 hrs bupropion HCl [Wellbutrin SR] 150 mg tablet sustained-release 12 hr 150 mg PO QAM acetaminophen 500 mg tablet 500 mg PO Q6H PRN (Reason: fever or pain) Qty: 60 1RF Vraylar 1.5 mg capsule 1.5 mg PO DAILY Qty: 60 2RF valacyclovir 500 mg tablet 500 mg PO DAILY amoxicillin 500 mg capsule 500 mg PO TID hydrocodone-acetaminophen [hydrocodone-acetaminophen] 5-325 mg tablet 1 tab PO Q6H PRN PRN (Reason: Pain) 3 Days Qty: 10 0RF (DME) blood pressure monitor Kit See Rx Instructions .ROUTE .MEDSUPPLY Qty: 1 0RF Rx Instructions: Check blood pressure daily for hypertension I10 Symbicort 160-4.5 mcg/actuation HFA aerosol inhaler 2 puff INHALATION BID Qty: 10.2 3RF albuterol sulfate [ProAir HFA] 90 mcg/actuation HFA aerosol inhaler 1 - 2 puff inhalation Q6H PRN (Reason: shortness of breath or wheezing) Qty: 8.5 2RF sumatriptan succinate 25 mg tablet See Rx Instructions PO .COMPLEX Qty: 14 2RF Rx Instructions: take 1 tab at onset of headache; if no relief may repeat 1 tab in 2hr; max = 4 tabs/day (24hr) PO loratadine 10 mg capsule 10 mg PO DAILY Qty: 90 2RF ibuprofen 800 mg tablet 800 mg PO Q8H PRN (Reason: pain) Qty: 60 1RF gabapentin 400 mg capsule See Rx Instructions .ROUTE .COMPLEX Qty: 90 1RF Dose Instruction: take 1 capsule by mouth every 8 hours Rx Instructions: take 1 capsule by mouth every 8 hours; Nurtec ODT 75 mg tablet,disintegrating See Rx Instructions .ROUTE .COMPLEX Qty: 8 3RF Dose Instruction: DISSOLVE 1 TABLET ON TOP OF TONGUE AND SWALLOW NEEDED FOR MIGRAINE HEADACHE Rx Instructions: DISSOLVE 1 TABLET ON TOP OF TONGUE AND SWALLOW NEEDED FOR MIGRAINE HEADACHE Stand Alone Forms: ED Work / School Excuse Primary Care Provider: Navi Kemp Referrals: Navi Kemp MD [Primary Care Provider] - 5-7 Days Disposition Disposition: Home, Self Care
[2022-09-27] MEDS: DiphenhydrAMINE 50 MG/ML Syringe 25 MG IV (14:00)
[2022-09-27] MEDS: Ketorolac 30 MG/ML Syringe IV (14:00)
[2022-09-27] MEDS: Metoclopramide 10 MG/2 ML Vial IV (14:00)
[2022-09-27] MEDS: 0.9% Normal Saline 1,000 ML 999 ML IV (14:05)
[2022-09-27 15:57] VITALS: BP 124/68; PULSE 69; RESP 18; O2SAT 100
== END 2022-09-27 15:57 | disposition home or self-care (01) ==
PROVIDERS: Emergency Provider Emergency Medicine; PCP Internal Medicine; Visit Provider Emergency Medicine
DX: G43.909 Migraine, unspecified, not intractable, without status migrainosus (principal); F31.9 Bipolar disorder, unspecified; F17.210 Nicotine dependence, cigarettes, uncomplicated; J45.909 Unspecified asthma, uncomplicated; Z79.51 Long term (current) use of inhaled steroids; F41.8 Other specified anxiety disorders; Z79.899 Other long term (current) drug therapy; Z79.1 Long term (current) use of non-steroidal anti-inflammatories (NSAID); Z90.49 Acquired absence of other specified parts of digestive tract; F17.290 Nicotine dependence, other tobacco product, uncomplicated
CPT/HCPCS: 96361; 96374; 96375; 99283; J7030; A4216

== ENCOUNTER → 2022-10-18 | Outpatient (CLI) | payer MEDICAID, SELFPAY ==
[2022-10-18 16:28] LABS: Absolute Lymphocyte Count 1.45 X10^3/uL (0.83-4.51); Absolute Neutrophil Count 4.5 X10^3/uL (2.0-7.7); Basophil# 0.05 X10^3/uL; Basophil% 0.8 % (0-1); Eosinophil# 0.06 X10^3/uL; Eosinophils% 0.9 % (0-5); Hematocrit 43.1 % (37-47); Hemoglobin 14.5 g/dL (12.0-15.0); Lymphocyte # 1.45 X10^3/ul (0.83-4.51); Lymphocyte % 22.3 % (19-41); Mean Corp Hgb Conc 33.6 g/dL (32-36); Mean Corpuscular Hgb 31.3 pg (27.0-32.0); Mean Corpuscular Volume 93.1 fL (81-99); Mean Platelet Vol. 9.9 fl (6.2-12.0); Monocyte# 0.43 X10^3/uL; Monocyte% 6.6 % (0-10); NRBC Flagged by Analyzer 0 % (0-5); Neutrophil # 4.51 X10^3/uL (2.7-7.7); Neutrophil % 69.2 % (47-70); Platelet Count 337 K/mm3 (150-450); RBC Distribution Width CV 12.7 % (11.6-14.6); RBC Distribution Width SD 43.6 fl (35.1-43.9); Red Blood Count 4.63 M/mm3 (4.2-5.4); White Blood Count 6.5 K/mm3 (4.4-11.0)
[2022-10-18 17:20] LABS: ALB/GLOB Ratio 1.1 RATIO (0.9-2.4); AST(SGOT) 35 U/L (15-37); Alanine Aminotransfer ALT/SGPT 67 U/L (13-56); Alkaline Phosphatase 69 U/L (45-117); Anion Gap 6 (5-15); BUN 13 mg/dL (7-18); BUN/Creat Ratio 13.1 RATIO (10-20); Calcium,Total 9.3 mg/dL (8.5-10.1); Chloride 108 mmol/L (98-107); Creatinine, Serum 0.99 mg/dL (0.55-1.02); EST Glomerular Filtration Rate 69 mL/min (>60); Est Glom Filt Rate - Afr Amer 84 mL/min (>60); Globulin 3.8 g/dL (2.2-4.2); Glucose 80 mg/dL (74-106); Potassium 3.9 mmol/L (3.5-5.1); Protein, Total 7.8 g/dL (6.4-8.2); Sodium Level 138 mmol/L (136-145)
[2022-10-19 12:51] LABS: Vitamin D,25 Hydroxy 40.7 ng/mL
== END | disposition home or self-care (01) ==
LOC: BIMLAB 16:05
PROVIDERS: PCP Internal Medicine; Referring Provider Internal Medicine; Visit Provider Internal Medicine
DX: F32.2 Major depressive disorder, single episode, severe without psychotic features (principal); F41.9 Anxiety disorder, unspecified
CPT/HCPCS: 36415; 80053; 82306; 85025

== ENCOUNTER 2022-10-28 11:23 | Emergency (ER) | payer MEDICAID, SELFPAY ==
[2022-10-28 11:23] VITALS: BP 124/71; PULSE 85; RESP 14; TEMP 36.6; O2SAT 100; BMI 28.1
--- NOTE | 2022-10-28 11:32 | EDS_ITS ---
HPI <GIOVANI Calix - Last Filed: 10/28/22 13:58> History of Present Illness Chief Complaint: Back Narrative Narrative: 32-year-old female is here requesting pain medicine for her chronic back pain. She has had low back pain that radiates down the left buttock for years. Sometimes it radiates down to the left ankle and the leg feels tingly which is chronic. She has seen Dr. Falcon and Dr. Richardson in pain management and had multiple MRIs. She was told there is L4/L5 disc bulging that is nonsurgical. Right now she is just taking Tylenol which is helping. She has tried meloxicam, spinal injections, and PT in the past with no relief. She states the specialists told her they did not have any other treatment options. 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 She denies weakness, numbness or tingling, saddle anesthesia, or bladder or bowel incontinence. PFSH <GIOVANI Calix - Last Filed: 10/28/22 13:58> [facility] Medical History Abnormal kidney function Acute maxillary sinusitis, unspecified Alcohol abuse Anxiety and depression Asthma Back problem Bee sting Bipolar 1 disorder Bone fracture Cellulitis of left foot Chronic bronchitis Chronic dental pain Chronic headaches Chronic low back pain Chronic neck pain Contact with and (suspected) exposure to other viral communicable diseases Drug abuse Encounter for screening for COVID-19 GERD (gastroesophageal reflux disease) Hearing loss in left ear Hx of emotional problems Left ankle sprain Lumbar radiculopathy Pneumonia PTSD (post-traumatic stress disorder) Right elbow pain Seasonal allergies Suprapubic discomfort URI (upper respiratory infection) URI (upper respiratory infection) Vertigo Vision problem Home Medications blood pressure monitor #1 ea 10/29/19 [Rx Last Taken Unknown] trazodone 50 mg tablet 50 mg PO QHS PRN Sleep 03/25/20 [History Last Taken Unknown] valacyclovir 500 mg tablet 500 mg PO DAILY 11/05/20 [History Last Taken Unknown] budesonide-formoterol HFA 160 mcg-4.5 mcg/actuation aerosol inhaler (Symbicort) 2 puff inhalation BID #10.2 grams 12/16/20 [Rx Last Taken Unknown] albuterol sulfate 90 mcg/actuation aerosol inhaler (ProAir HFA) 1 - 2 puff inhalation Q6H PRN shortness of breath or wheezing #8.5 grams 08/24/21 [Rx Last Taken Unknown] fluoxetine 20 mg tablet 40 mg PO DAILY 10/12/21 [History Last Taken Unknown] sumatriptan succinate 25 mg tablet See Rx Instructions PO .COMPLEX migraine #14 tabs 11/09/21 [Rx Last Taken Unknown] loratadine 10 mg capsule 10 mg PO DAILY #90 caps 04/10/22 [Rx Last Taken Unknown] bupropion HCl 150 mg tablet,12 hr sustained-release (Wellbutrin SR) 150 mg PO QAM 07/05/22 [History Last Taken Unknown] ibuprofen 800 mg tablet 800 mg PO Q8H PRN pain #60 tabs 07/12/22 [Rx Last Taken Unknown] acetaminophen 500 mg tablet 500 mg PO Q6H PRN fever or pain #60 tabs 07/18/22 [Rx Last Taken Unknown] gabapentin 400 mg capsule See Rx Instructions .Route .COMPLEX #90 caps 09/04/22 [Rx Last Taken Unknown] rimegepant 75 mg disintegrating tablet (Nurtec ODT) See Rx Instructions .Route .COMPLEX #8 TABLETS 09/25/22 [Rx Last Taken Unknown] amlodipine 5 mg tablet 5 mg PO DAILY #30 tabs 10/10/22 [Rx Last Taken Unknown] cariprazine 1.5 mg capsule (Vraylar) 3 mg PO DAILY 10/18/22 [History Last Taken Unknown] methocarbamol 500 mg tablet 500 mg PO TID 5 days #15 tabs 10/28/22 [Rx Last Taken Unknown] Allergy/AdvReac Type Severity Reaction Status Date / Time zinc oxide Allergy Unknown Verified 10/28/22 11:36 naproxen [From Naprosyn] AdvReac Nausea Verified 10/28/22 11:36 Family History Unknown Alcoholism Anxiety Asthma Depression Myocardial infarction Suicide attempt Other Cancer Surgical History History of cholecystectomy History of laparoscopic appendectomy History of oral surgery Social History Smoking Status: Current every day smoker tobacco type: cigarettes and e- cigarettes alcohol intake: former year quit: 2014 substance use type: 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, methamphetamine and other what type of physical activity do you participate in: yoga and weight training frequency: 3-4 times per week ROS <GIOVANI Calix - Last Filed: 10/28/22 13:58> ROS ED ROS Narrative Constitutional: Negative for fever, chills, malaise. CVS: Negative for palpitations, chest pain. Respiratory: Negative for shortness of breath. GI: Negative for abdominal pain, nausea, vomiting. : Negative for dysuria, hematuria or frequency. Neuro: Negative for motor/sensory dysfunction. EXAM <GIOVANI Calix - Last Filed: 10/28/22 13:58> Physical Exam Narrative Exam Narrative: CONST: Patient sitting in no acute distress. EYES: Normal inspection. NECK: Normal inspection. RESP: No respiratory distress, CTAB. CVS: Regular rate and rhythm, no murmur, no gallop. Back: Normal inspection, slightly tender over both SI joints. No midline spinal tenderness or step-offs. SKIN: Color normal, no rash, warm, dry, intact. EXTREMITIES: Normal appearance, no pedal edema. 5/5 strength in bilateral hip flexion, knee flexion/extension, DF/PF. Normal sensation to light touch, 2+ DP pulses. 2+ patellar and ankle reflexes. NEURO: Oriented x4. PSYCH: Normal affect. Const Vital Signs: 10/28/22 11:23 10/28/22 12:36 Temperature 97.9 F Temperature Source Temporal Pulse Rate 85 Respiratory Rate 14 17 Blood Pressure 124/71 H Blood Pressure Mean 88 Pulse Ox 100 Oxygen Delivery Method Room Air <Dr. Darryn Mares DO - Last Filed: 10/28/22 15:20> Physical Exam Const Vital Signs: 10/28/22 11:23 10/28/22 12:36 Temperature 97.9 F Temperature Source Temporal Pulse Rate 85 Respiratory Rate 14 17 Blood Pressure 124/71 H Blood Pressure Mean 88 Pulse Ox 100 Oxygen Delivery Method Room Air MDM <GIOVANI Calix - Last Filed: 10/28/22 13:58> MDM MDM Narrative Medical decision making narrative: Patient was evaluated for chronic back pain radiating down her left leg. She states is not changed in any way and there is no new injury. She does have tenderness over the SI joints but no midline tenderness. Lower extremity MSPs and reflexes are intact and she has no red flag symptoms concerning for cauda equina syndrome or epidural abscess. She was treated with Toradol and Norflex. I discussed I will prescribe muscle relaxers for home with narcotics not indicated for this chronic pain. She should follow-up with her PCP and can call her insurance if she wants to see a new back specialist. She was discharged in stable condition. Differential: Lumbar radiculopathy, muscle spasm Test considered: No indication for x-rays as there is no recent trauma, patient has had MRIs in the past <Dr. Darryn Mares, DO - Last Filed: 10/28/22 15:20> [facility] Narrative Medical decision making narrative: Patient was evaluated for chronic back pain radiating down her left leg. She states is not changed in any way and there is no new injury. She does have tenderness over the SI joints but no midline tenderness. Lower extremity MSPs and reflexes are intact and she has no red flag symptoms concerning for cauda equina syndrome or epidural abscess. She was treated with Toradol and Norflex. I discussed I will prescribe muscle relaxers for home with narcotics not indicated for this chronic pain. She should follow-up with her PCP and can call her insurance if she wants to see a new back specialist. She was discharged in stable condition. Differential: Lumbar radiculopathy, muscle spasm Test considered: No indication for x-rays as there is no recent trauma, patient has had MRIs in the past This patient was seen with a PA/SUPERVISOR FERTILIZER Individually assessed they patient including history and physical. I have reviewed everything on the chart that is available and agree with the documentation provided by the PA/SUPERVISOR FERTILIZER including discussion about the assessment, treatment plan, discussion, and return precautions. Patient with exacerbation of her chronic back pain. She is treated here with Norflex and Toradol. She will be given muscle relaxers and will use NSAIDs and Tylenol at home. Discharge Plan Triage Chief Complaint: Back ED Midlevel Provider: Anna Marie Yanez ED Provider: Darryn Mares Dx/Rx/DC Orders Clinical Impression: Chronic back pain Instructions: Back Basics: A Healthy Spine Prescriptions: New methocarbamol 500 mg tablet 500 mg PO TID 5 Days Qty: 15 0RF No Action trazodone 50 mg tablet 50 mg PO QHS PRN (Reason: Sleep) fluoxetine 20 mg tablet 40 mg PO DAILY bupropion HCl [Wellbutrin SR] 150 mg tablet sustained-release 12 hr 150 mg PO QAM acetaminophen 500 mg tablet 500 mg PO Q6H PRN (Reason: fever or pain) Qty: 60 1RF Vraylar 1.5 mg capsule 3 mg PO DAILY valacyclovir 500 mg tablet 500 mg PO DAILY (DME) blood pressure monitor Kit See Rx Instructions .ROUTE .MEDSUPPLY Qty: 1 0RF Rx Instructions: Check blood pressure daily for hypertension I10 Symbicort 160-4.5 mcg/actuation HFA aerosol inhaler 2 puff INHALATION BID Qty: 10.2 3RF albuterol sulfate [ProAir HFA] 90 mcg/actuation HFA aerosol inhaler 1 - 2 puff inhalation Q6H PRN (Reason: shortness of breath or wheezing) Qty: 8.5 2RF sumatriptan succinate 25 mg tablet See Rx Instructions PO .COMPLEX Qty: 14 2RF Rx Instructions: take 1 tab at onset of headache; if no relief may repeat 1 tab in 2hr; max = 4 tabs/day (24hr) PO loratadine 10 mg capsule 10 mg PO DAILY Qty: 90 2RF ibuprofen 800 mg tablet 800 mg PO Q8H PRN (Reason: pain) Qty: 60 1RF gabapentin 400 mg capsule See Rx Instructions .ROUTE .COMPLEX Qty: 90 1RF Dose Instruction: take 1 capsule by mouth every 8 hours Rx Instructions: take 1 capsule by mouth every 8 hours; Nurtec ODT 75 mg tablet,disintegrating See Rx Instructions .ROUTE .COMPLEX Qty: 8 3RF Dose Instruction: DISSOLVE 1 TABLET ON TOP OF TONGUE AND SWALLOW NEEDED FOR MIGRAINE HEADACHE Rx Instructions: DISSOLVE 1 TABLET ON TOP OF TONGUE AND SWALLOW NEEDED FOR MIGRAINE HEADACHE amlodipine 5 mg tablet 5 mg PO DAILY Qty: 30 1RF Primary Care Provider: Navi Kemp Referrals: Navi Kemp MD [Primary Care Provider] - Activity Restrictions/Additional Instructions: I recommend Tylenol, ibuprofen, and I prescribed muscle relaxers. Please follow-up with your primary care doctor. Disposition Disposition: Home, Self Care Discharge Date/Time: 10/28/22 12:42
[2022-10-28] MEDS: Ketorolac 30 MG/ML Syringe IM (11:39)
[2022-10-28] MEDS: Orphenadrine 100 MG Tablet PO (11:39)
[2022-10-28 12:36] VITALS: RESP 17
== END 2022-10-28 12:42 | disposition home or self-care (01) ==
LOC: ED 11:49
PROVIDERS: Emergency Provider Student in an Organized Health Care Education/Training Program; PCP Internal Medicine; Visit Provider Student in an Organized Health Care Education/Training Program
DX: M54.9 Dorsalgia, unspecified (principal); G89.29 Other chronic pain; F17.210 Nicotine dependence, cigarettes, uncomplicated
CPT/HCPCS: 96372; 99282

== ENCOUNTER → 2022-11-03 | Outpatient (CLI) | payer MEDICAID, SELFPAY ==
[2022-11-03 12:28] LABS: Absolute Lymphocyte Count 1.21 X10^3/uL (0.83-4.51); Basophil# 0.06 X10^3/uL; Basophil% 0.8 % (0-1); Eosinophil# 0.02 X10^3/uL; Eosinophils% 0.3 % (0-5); Hematocrit 41.9 % (37-47); Hemoglobin 13.7 g/dL (12.0-15.0); Lymphocyte # 1.21 X10^3/ul (0.83-4.51); Lymphocyte % 15.5 % (19-41); Mean Corp Hgb Conc 32.7 g/dL (32-36); Mean Corpuscular Hgb 30.9 pg (27.0-32.0); Mean Corpuscular Volume 94.6 fL (81-99); Mean Platelet Vol. 10.1 fl (6.2-12.0); Monocyte# 0.51 X10^3/uL; Monocyte% 6.5 % (0-10); NRBC Flagged by Analyzer 0 % (0-5); Neutrophil # 5.98 X10^3/uL (2.7-7.7); Neutrophil % 76.5 % (47-70); Platelet Count 335 K/mm3 (150-450); RBC Distribution Width CV 12.5 % (11.6-14.6); RBC Distribution Width SD 43.4 fl (35.1-43.9); Red Blood Count 4.43 M/mm3 (4.2-5.4); White Blood Count 7.8 K/mm3 (4.4-11.0)
[2022-11-03 13:24] LABS: AST(SGOT) 38 U/L (15-37); Alanine Aminotransfer ALT/SGPT 77 U/L (13-56); Albumin, Serum 3.8 g/dL (3.2-5.0); Alkaline Phosphatase 66 U/L (45-117); Anion Gap 6 (5-15); BUN 13 mg/dL (7-18); BUN/Creat Ratio 13.5 RATIO (10-20); Calcium,Total 9.3 mg/dL (8.5-10.1); Chloride 107 mmol/L (98-107); Cholesterol 157 mg/dL (200); Creatinine, Serum 0.96 mg/dL (0.55-1.02); EST Glomerular Filtration Rate 71 mL/min (>60); Est Glom Filt Rate - Afr Amer 86 mL/min (>60); Globulin 3.7 g/dL (2.2-4.2); Glucose 86 mg/dL (74-106); High Density Lipoprotein 64 mg/dL; Protein, Total 7.5 g/dL (6.4-8.2); Sodium Level 137 mmol/L (136-145); Thyroid Stim Hormone (TSH) 0.53 uIU/mL (0.358-3.74); Triglycerides 33 mg/dL; Very Low Density Lipoprotein 7 mg/dL (5-40)
[2022-11-04 13:07] LABS: HCV Quant. RNA PCR 8260000 IU/mL (.); HCV log 10 6.917 (.)
== END | disposition home or self-care (01) ==
LOC: BIMLAB 11:48
PROVIDERS: PCP Internal Medicine; Referring Provider Nurse Practitioner Family; Visit Provider Nurse Practitioner Family
DX: Z00.00 Encounter for general adult medical examination without abnormal findings (principal); B19.20 Unspecified viral hepatitis C without hepatic coma
CPT/HCPCS: 36415; 80053; 80061; 84443; 85025; 87522

== ENCOUNTER → 2022-11-15 | Outpatient (CLI) | payer MEDICAID, SELFPAY ==
--- NOTE | 2022-11-15 07:51 | US_ITS ---
STUDY: ABDOMINAL ULTRASOUND REASON FOR EXAM: Female, 32 years old. Unspecified viral hepatitis C without hepatic coma TECHNIQUE: Transabdominal ultrasound was performed with real-time and static mahoney scale imaging. TECHNICAL QUALITY: Adequate. COMPARISON: Comparison is made with prior study August 11, 2019. FINDINGS: Liver: The liver measures 15 cm. There is normal echogenicity of the liver. The bile ducts are within normal limits. There is hepatic color flow. The direction of portal flow is hepatopetal. There is no demonstrated mass lesion. Gallbladder: The patient is status post cholecystectomy. Common Bile Duct (C.B.D.): The common bile duct measures 4 mm. Pancreas: Normal size of the head, body and tail of the pancreas. There is normal echogenicity of the pancreas. There is no demonstrated pancreatic mass or cyst. Spleen: Normal size of the spleen. The spleen measures 10.3 cm x 3.6 cm x 3.7 cm. Right Kidney: Normal size of the right kidney. The right kidney measures 9.3 cm x 4.9 cm x 4.3 cm. Normal renal cortex. The right cortex measures 1.3 cm. There is no demonstrated renal mass or cyst. There is no right hydronephrosis. Left Kidney: Normal size of the left kidney. The left kidney measures 9.9 cm x 5.5 cm x 5.5 cm. Normal renal cortex. The left cortex measures 1.4 cm. There is no demonstrated renal mass or cyst. There is no left hydronephrosis. Aorta: Unremarkable I.V.C.: The IVC is patent. There is no ascites. US/Abdomen Complete IMPRESSION: The patient is status post cholecystectomy. Electronically Signed: Adeel Chamberlain MD at 14:57 EDT ,
== END | disposition home or self-care (01) ==
LOC: US 07:50
PROVIDERS: PCP Internal Medicine; Referring Provider Urology; Visit Provider Urology
DX: B19.20 Unspecified viral hepatitis C without hepatic coma (principal); Z87.440 Personal history of urinary (tract) infections
CPT/HCPCS: 76700

== ENCOUNTER 2022-11-19 10:15 | Emergency (ER) | payer MEDICAID, SELFPAY ==
[2022-11-19 10:16] VITALS: BP 136/71; PULSE 85; RESP 18; TEMP 36.4; O2SAT 99; BMI 29.3
--- NOTE | 2022-11-19 10:39 | EDS_ITS ---
HPI History of Present Illness Chief Complaint: Lower Extremity Injury Narrative Narrative: 32-year-old female who denies significant past medical history presents with pain in her left foot that she has had for the last few days, probably for. She relates history that she has been having pain in her left foot, it started in the ball of her foot at the base of her toes, but now is mainly concentrated along the lateral aspect of her foot and the fifth metatarsal. While she has history of sciatica, she is describing more pain in her foot that radiates upward on the lateral aspect along the peroneal nerve. It is worse with weightbearing and standing. While she denies any significant trauma, she does state I am a klutz but cannot pinpoint the time when her foot started hurting her. She is describing more lancinating pain radiating upward, but then she can have some attack of her sciatica on her left side. She denies any fevers or chills. No loss of bowel or bladder, no chest pain or shortness of breath. She presents because the pain in her foot. She has been taking Tylenol and ibuprofen without relief. [facility] Medical History Abnormal kidney function Acute maxillary sinusitis, unspecified Alcohol abuse Anxiety and depression Asthma Back problem Bee sting Bipolar 1 disorder Bone fracture Cellulitis of left foot Chronic bronchitis Chronic dental pain Chronic headaches Chronic low back pain Chronic neck pain Contact with and (suspected) exposure to other viral communicable diseases Drug abuse Encounter for preventative adult health care examination Encounter for screening for COVID-19 GERD (gastroesophageal reflux disease) Hearing loss in left ear Hepatitis C Hx of emotional problems Left ankle sprain Lumbar radiculopathy MDD (major depressive disorder) Pneumonia PTSD (post-traumatic stress disorder) Right elbow pain Seasonal allergies Suprapubic discomfort URI (upper respiratory infection) URI (upper respiratory infection) Vertigo Vision problem Home Medications blood pressure monitor #1 ea 10/29/19 [Rx Last Taken Unknown] trazodone 50 mg tablet 50 mg PO QHS PRN Sleep 03/25/20 [History Last Taken Unknown] valacyclovir 500 mg tablet 500 mg PO DAILY 11/05/20 [History Last Taken Unknown] budesonide-formoterol HFA 160 mcg-4.5 mcg/actuation aerosol inhaler (Symbicort) 2 puff inhalation BID #10.2 grams 12/16/20 [Rx Last Taken Unknown] albuterol sulfate 90 mcg/actuation aerosol inhaler (ProAir HFA) 1 - 2 puff inhalation Q6H PRN shortness of breath or wheezing #8.5 grams 08/24/21 [Rx Last Taken Unknown] sumatriptan succinate 25 mg tablet See Rx Instructions PO .COMPLEX migraine #14 tabs 11/09/21 [Rx Last Taken Unknown] acetaminophen 500 mg tablet 500 mg PO Q6H PRN fever or pain #60 tabs 07/18/22 [Rx Last Taken Unknown] gabapentin 400 mg capsule See Rx Instructions .Route .COMPLEX #90 caps 09/04/22 [Rx Last Taken Unknown] rimegepant 75 mg disintegrating tablet (Nurtec ODT) See Rx Instructions .Route .COMPLEX #8 TABLETS 09/25/22 [Rx Last Taken Unknown] amlodipine 5 mg tablet 5 mg PO DAILY #30 tabs 10/10/22 [Rx Last Taken Unknown] methocarbamol 500 mg tablet 500 mg PO TID 5 days #15 tabs 10/28/22 [Rx Last Taken Unknown] bupropion HCl 150 mg tablet,12 hr sustained-release (Wellbutrin SR) 150 mg PO BID 30 days #60 ea 11/01/22 [Rx Last Taken Unknown] cariprazine 3 mg capsule 3 mg PO DAILY 30 days #30 caps 11/01/22 [Rx Last Taken Unknown] fluoxetine 40 mg capsule (Prozac) 40 mg PO DAILY #30 caps 11/01/22 [Rx Last Taken Unknown] hydroxyzine pamoate 25 mg capsule (Vistaril) 25 mg PO QHS #30 caps 11/01/22 [Rx Last Taken Unknown] Allergy/AdvReac Type Severity Reaction Status Date / Time zinc oxide Allergy Unknown Verified 11/19/22 10:18 naproxen [From Naprosyn] AdvReac Nausea Verified 11/19/22 10:18 Family History Unknown Alcoholism Anxiety Asthma Depression Myocardial infarction Suicide attempt Other Cancer Surgical History History of cholecystectomy History of laparoscopic appendectomy History of oral surgery Social History Smoking Status: Current every day smoker tobacco type: cigarettes and e- cigarettes alcohol intake: former year quit: 2014 substance use type: 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, methamphetamine and other what type of physical activity do you participate in: yoga and weight training frequency: 3-4 times per week ROS ROS ED ROS Narrative Constitutional: No fever, no chills. HEENT: No sore throat. No neck pain. No loss of vision. No rhinorrhea. Cardiovascular: No chest pain. No palpitations. No pedal edema. Respiratory: No cough, no shortness of breath. Abdominal: No abdominal pain. No nausea. No vomiting. Genitourinary: No dysuria. No hematuria. Musculoskeletal: No myalgias. Left lateral foot pain radiating upward on lateral aspect of left leg. Neurologic: No headaches. No dizziness. No lightheadedness. Skin: No rash. No change in color. Psychiatric: No depression. No anxiety. EXAM Physical Exam Narrative Exam Narrative: Afebrile. Vital signs noted. HEENT: Normocephalic. Atraumatic. PERRL, EOMI. Neck soft and supple. No point tenderness or step off. Cardiovascular: Regular rate and rhythm. No murmurs, rubs, or gallops appre ciated. Respiratory: No tachypnea. Lungs clear to auscultation bilaterally. Gastrointestinal: Abdomen soft, nontender, with normoactive bowel sounds. No rebound or guarding. Neurological: Awake. Alert. Nonfocal, nonlateralizing. EHL intact left lower extremity. Skin: No rash. Normal color. No pallor. Musculoskeletal: No pedal edema. Full range of motion extremities. Mild tenderness to palpation along left fifth metatarsal. Palpable dorsalis pedis pulse. No pain at ankle or above. Full range of motion of left ankle. 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 I do feel x-rays are indicated of the left foot. This will help rule out fracture. I interpreted her x-rays of her left foot independently and see no evidence of an acute fracture. There are calcifications around the area of the cuboid which appear rounded and are most likely from an old injury. I reviewed the radiology report which confirms my independent interpretation. At this point in time, she will be placed in a postop shoe for comfort. She will continue [id number] analgesics. I do not feel that narcotic pain medication is indicated. She was referred to podiatry. I do feel that her pain is mainly coming from the foot. She will continue elevation and ice as needed. She can also follow-up with her primary care provider. I do not feel she requires observation. Return instructions to the emergency department were reviewed. Disposition is discharged home in stable condition. Radiography Diagnostic Testing: Clinical Impression(s) from Imaging Studies Foot X-Ray 11/19/22 10:54 IMPRESSION: No evidence of acute osseous injury. Electronically Signed: Migel Carreon MD at 11:52 EDT , Discharge Plan Triage Chief Complaint: Lower Extremity Injury ED Provider: Cristóbal Christiansen Dx/Rx/DC Orders Clinical Impression: Lower leg pain, Foot pain, left Instructions: ED Foot Sprain, ED Pain, Acute, Uncertain Cause Prescriptions: No Action trazodone 50 mg tablet 50 mg PO QHS PRN (Reason: Sleep) acetaminophen 500 mg tablet 500 mg PO Q6H PRN (Reason: fever or pain) Qty: 60 1RF bupropion HCl [Wellbutrin SR] 150 mg tablet sustained-release 12 hr 150 mg PO BID 30 Days Qty: 60 2RF Vraylar 3 mg capsule 3 mg PO DAILY 30 Days Qty: 30 2RF fluoxetine [Prozac] 40 mg capsule 40 mg PO DAILY Qty: 30 2RF hydroxyzine pamoate [Vistaril] 25 mg capsule 25 mg PO QHS Qty: 30 2RF valacyclovir 500 mg tablet 500 mg PO DAILY methocarbamol 500 mg tablet 500 mg PO TID 5 Days Qty: 15 0RF (DME) blood pressure monitor Kit See Rx Instructions .ROUTE .MEDSUPPLY Qty: 1 0RF Rx Instructions: Check blood pressure daily for hypertension I10 Symbicort 160-4.5 mcg/actuation HFA aerosol inhaler 2 puff INHALATION BID Qty: 10.2 3RF albuterol sulfate [ProAir HFA] 90 mcg/actuation HFA aerosol inhaler 1 - 2 puff inhalation Q6H PRN (Reason: shortness of breath or wheezing) Qty: 8.5 2RF sumatriptan succinate 25 mg tablet See Rx Instructions PO .COMPLEX Qty: 14 2RF Rx Instructions: take 1 tab at onset of headache; if no relief may repeat 1 tab in 2hr; max = 4 tabs/day (24hr) PO gabapentin 400 mg capsule See Rx Instructions .ROUTE .COMPLEX Qty: 90 1RF Dose Instruction: take 1 capsule by mouth every 8 hours Rx Instructions: take 1 capsule by mouth every 8 hours; Nurtec ODT 75 mg tablet,disintegrating See Rx Instructions .ROUTE .COMPLEX Qty: 8 3RF Dose Instruction: DISSOLVE 1 TABLET ON TOP OF TONGUE AND SWALLOW NEEDED FOR MIGRAINE HEADA NENA Rx Instructions: DISSOLVE 1 TABLET ON TOP OF TONGUE AND SWALLOW NEEDED FOR MIGRAINE HEADACHE amlodipine 5 mg tablet 5 mg PO DAILY Qty: 30 1RF Primary Care Provider: Navi Kemp Referrals: Navi Kemp MD [Primary Care Provider] - 5-7 Days Vernon Hood DPM [Med Staff - Active Staff] - As Needed Disposition Disposition: Home, Self Care
--- NOTE | 2022-11-19 10:54 | RAD_ITS ---
INDICATION: Pain. EXAMINATION/TECHNIQUE: X-RAY - LEFT XR Foot Min 3 Views 3 VIEWS COMPARISON: No prior examinations are available for comparison. FINDINGS: SOFT TISSUES: No soft tissue swelling or gas. No radiopaque foreign body. BONES/JOINTS: No acute fracture or subluxation.. Small calcifications lateral to the cuboid probably due to old injury. Preservation of the joint space.. No sclerotic or destructive changes observed. RAD/Foot min 3 Views IMPRESSION: No evidence of acute osseous injury. Electronically Signed: Migel Carreon MD at 11:52 EDT ,
== END 2022-11-19 12:16 | disposition home or self-care (01) ==
PROVIDERS: Emergency Provider Emergency Medicine; PCP Internal Medicine; Visit Provider Emergency Medicine
DX: M79.672 Pain in left foot (principal); M79.605 Pain in left leg; F17.210 Nicotine dependence, cigarettes, uncomplicated
CPT/HCPCS: 73630; 99283

== ENCOUNTER 2022-12-06 13:43 | Emergency (ER) | payer MEDICAID, SELFPAY ==
[2022-12-06 13:44] VITALS: BP 123/82; PULSE 78; RESP 16; TEMP 36.6; O2SAT 99; BMI 28.8
--- NOTE | 2022-12-06 15:58 | EDS_ITS ---
HPI History of Present Illness Chief Complaint: Headache Detail of Chief Complaint: Headache Informant: patient Narrative Narrative: Patient Aliyah with headache that started today. Patient describes as whole head throbbing and complains of some photophobia. She vomited x3. She gets frequent headaches. History of migraines. She took her Nurtec but did not have any relief. She has not had any falls or head injuries. She denies recent illness. Headache is typical of her migraines. She has been to the ER for these before. [facility] Medical History Abnormal kidney function Acute maxillary sinusitis, unspecified Alcohol abuse Anxiety and depression Asthma Back problem Bee sting Bipolar 1 disorder Bone fracture Cellulitis of left foot Chronic bronchitis Chronic dental pain Chronic headaches Chronic low back pain Chronic neck pain Contact with and (suspected) exposure to other viral communicable diseases Drug abuse Encounter for preventative adult health care examination Encounter for screening for COVID-19 GERD (gastroesophageal reflux disease) Hearing loss in left ear Hepatitis C Hx of emotional problems Left ankle sprain Lumbar radiculopathy MDD (major depressive disorder) Pneumonia PTSD (post-traumatic stress disorder) Right elbow pain Seasonal allergies Suprapubic discomfort URI (upper respiratory infection) URI (upper respiratory infection) Vertigo Vision problem Home Medications blood pressure monitor #1 ea 10/29/19 [Rx Last Taken Unknown] trazodone 50 mg tablet 50 mg PO QHS PRN Sleep 03/25/20 [History Last Taken Unknown] valacyclovir 500 mg tablet 500 mg PO DAILY 11/05/20 [History Last Taken Unknown] budesonide-formoterol HFA 160 mcg-4.5 mcg/actuation aerosol inhaler (Symbicort) 2 puff inhalation BID #10.2 grams 12/16/20 [Rx Last Taken Unknown] albuterol sulfate 90 mcg/actuation aerosol inhaler (ProAir HFA) 1 - 2 puff inhalation Q6H PRN shortness of breath or wheezing #8.5 grams 08/24/21 [Rx Last Taken Unknown] sumatriptan succinate 25 mg tablet See Rx Instructions PO .COMPLEX migraine #14 tabs 11/09/21 [Rx Last Taken Unknown] acetaminophen 500 mg tablet 500 mg PO Q6H PRN fever or pain #60 tabs 07/18/22 [Rx Last Taken Unknown] rimegepant 75 mg disintegrating tablet (Nurtec ODT) See Rx Instructions .Route .COMPLEX #8 TABLETS 09/25/22 [Rx Last Taken Unknown] amlodipine 5 mg tablet 5 mg PO DAILY #30 tabs 10/10/22 [Rx Last Taken Unknown] methocarbamol 500 mg tablet 500 mg PO TID 5 days #15 tabs 10/28/22 [Rx Last Taken Unknown] bupropion HCl 150 mg tablet,12 hr sustained-release (Wellbutrin SR) 150 mg PO BID 30 days #60 ea 11/01/22 [Rx Last Taken Unknown] cariprazine 3 mg capsule 3 mg PO DAILY 30 days #30 caps 11/01/22 [Rx Last Taken Unknown] fluoxetine 40 mg capsule (Prozac) 40 mg PO DAILY #30 caps 11/01/22 [Rx Last Taken Unknown] hydroxyzine pamoate 25 mg capsule (Vistaril) 25 mg PO QHS #30 caps 11/01/22 [Rx Last Taken Unknown] ibuprofen 800 mg tablet 800 mg PO Q8H 11/22/22 [History Last Taken Unknown] gabapentin 400 mg capsule See Rx Instructions .Route .COMPLEX #90 caps 12/01/22 [Rx Last Taken Unknown] Allergy/AdvReac Type Severity Reaction Status Date / Time zinc oxide Allergy Unknown Verified 11/22/22 08:53 naproxen [From Naprosyn] AdvReac Nausea Verified 11/22/22 08:53 Family History Unknown Alcoholism Anxiety Asthma Depression Myocardial infarction Suicide attempt Other Cancer Surgical History History of cholecystectomy History of laparoscopic appendectomy History of oral surgery Social History Smoking Status: Current every day smoker tobacco type: cigarettes and e- cigarettes alcohol intake: former year quit: 2014 substance use type: 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, methamphetamine and other what type of physical activity do you participate in: yoga and weight training frequency: 3-4 times per week ROS ROS ED Review of Systems ROS Unobtainable: other Constitutional Constitutional ED: Reports lethargy; Denies chills, fever(s), sweats or weight loss Eyes Eyes: Denies blurry vision, change in vision or diplopia ENT ENT ED: Denies rhinorrhea or sore throat Cardiovascular Cardiovascular: Denies chest pain, orthopnea or racing heartbeat Respiratory/Chest Respiratory/Chest: Denies cough, dyspnea, dyspnea on exertion, orthopnea or sputum Gastrointestinal Gastrointestinal: Reports nausea and vomiting; Denies abdominal pain or diarrhea Genitourinary Genitourinary ED: Denies dysuria, hematuria or urinary frequency Musculoskeletal Musculoskeletal: Denies arthralgias, back pain, myalgias or neck pain Integumentary Denies abscess, Abrasions or rash Neurologic Neurologic: Reports headache(s); Denies weakness Psychiatric Psychiatric: Denies anxiety, depression or suicidal thoughts Endocrine Endocrinology: Denies polydipsia, polyphagia or polyuria Hematologic/Lymphatic Hematologic/Lymphatic: Denies easy bleeding, easy bruising or lymphadenopathy Allergic/Immunologic Allergic/Immunologic ED: Denies mouth swelling, tongue swelling or urticaria EXAM Physical Exam Const Vital Signs: 12/06/22 13:44 Temperature 97.8 F Temperature Source Temporal Pulse Rate 78 Respiratory Rate 16 Blood Pressure 123/82 H Blood Pressure Mean 95 Pulse Ox 99 Oxygen Delivery Method Room Air Positive well nourished and well developed General Appearance ED: well developed and NAD HEENT Reports TM's clear and moist mucous membranes normocephalic and atraumatic; Negative for trauma or tenderness Tympanic Membrane ED: Yes TM's clear Eyes PERRL and EOMs intact bilaterally General Eye ED: Negative for pale conjunctiva or scleral icterus Neck no lymphadenopathy, supple and no JVD General: Negative for tenderness Chest Wall inspection of chest normal and palpation of chest normal Chest: Negative for tenderness Resp normal respiratory effort and clear to auscultation bilaterally Effort and Inspection: Negative for respiratory distress or pain with movement Auscultation: Negative for rhonchi, wheezes or diminished lung sounds Cardio regular rate, regular rhythm, S1 normal heart sound, S2 normal heart sound and no murmurs Peripheral Pulses: pulses 2+ throughout GI normal to inspection, nondistended, normoactive bowel sounds, soft to palpation, non-tender, non-distended and no masses Back/Spine no CVA tenderness and no thoracic nor lumbar tenderness Extremity normal to inspection General Extremety ED: Negative for edema General Extremity: Negative for edema Neuro oriented x3, CN's II-XII intact bilaterally, no sensory deficits noted and gait normal Sensorium / Orientation: awake, alert, oriented to person, oriented to place and oriented to time Motor Exam: strength 5/5 throughout and strength abnormal Psych mental status grossly normal Skin no rashes or lesions noted and no wounds MDM MDM MDM Narrative Medical decision making narrative: Patient with history of migraines. Headache is typical of her migraines. Patient will have IV line established and will be given a liter normal same fluid bolus as well as Reglan Benadryl and Toradol. Patient felt markedly improved after treatment and was able to fall asleep. Currently rates her pain a 6 out of 10 and improving. She feels good enough to go home. Her pain is started at a 10 out of 10. She does not want anything further for pain. Clinically I suspect likely migraine. Discharge Plan Triage Chief Complaint: Headache ED Provider: David Persaud Dx/Rx/DC Orders Clinical Impression: Headache, migraine Instructions: ED, Migraine (Classical) Prescriptions: No Action trazodone 50 mg tablet 50 mg PO QHS PRN (Reason: Sleep) acetaminophen 500 mg tablet 500 mg PO Q6H PRN (Reason: fever or pain) Qty: 60 1RF bupropion HCl [Wellbutrin SR] 150 mg tablet sustained-release 12 hr 150 mg PO BID 30 Days Qty: 60 2RF Vraylar 3 mg capsule 3 mg PO DAILY 30 Days Qty: 30 2RF fluoxetine [Prozac] 40 mg capsule 40 mg PO DAILY Qty: 30 2RF hydroxyzine pamoate [Vistaril] 25 mg capsule 25 mg PO QHS Qty: 30 2RF ibuprofen 800 mg tablet 800 mg PO Q8H valacyclovir 500 mg tablet 500 mg PO DAILY methocarbamol 500 mg tablet 500 mg PO TID 5 Days Qty: 15 0RF (DME) blood pressure monitor Kit See Rx Instructions .ROUTE .MEDSUPPLY Qty: 1 0RF Rx Instructions: Check blood pressure daily for hypertension I10 Symbicort 160-4.5 mcg/actuation HFA aerosol inhaler 2 puff INHALATION BID Qty: 10.2 3RF albuterol sulfate [ProAir HFA] 90 mcg/actuation HFA aerosol inhaler 1 - 2 puff inhalation Q6H PRN (Reason: shortness of breath or wheezing) Qty: 8.5 2RF sumatriptan succinate 25 mg tablet See Rx Instructions PO .COMPLEX Qty: 14 2RF Rx Instructions: take 1 tab at onset of headache; if no relief may repeat 1 tab in 2hr; max = 4 tabs/day (24hr) PO Nurtec ODT 75 mg tablet,disintegrating See Rx Instructions .ROUTE .COMPLEX Qty: 8 3RF Dose Instruction: DISSOLVE 1 TABLET ON TOP OF TONGUE AND SWALLOW NEEDED FOR MIGRAINE HEADACHE Rx Instructions: DISSOLVE 1 TABLET ON TOP OF TONGUE AND SWALLOW NEEDED FOR MIGRAINE HEADACHE amlodipine 5 mg tablet 5 mg PO DAILY Qty: 30 1RF gabapentin 400 mg capsule See Rx Instructions .ROUTE .COMPLEX Qty: 90 1RF Dose Instruction: take 1 capsule by mouth every 8 hours Rx Instructions: take 1 capsule by mouth every 8 hours; Primary Care Provider: Navi Kemp Referrals: Navi Kemp MD [Primary Care Provider] - 3-5 Days Disposition Disposition: Home, Self Care
[2022-12-06] MEDS: DiphenhydrAMINE 50 MG/ML Syringe 25 MG IV (16:09)
[2022-12-06] MEDS: 0.9% Normal Saline 1,000 ML 1000 ML IV (16:09)
[2022-12-06] MEDS: Metoclopramide 10 MG/2 ML Vial IV (16:09)
[2022-12-06] MEDS: Ketorolac 30 MG/ML Syringe IV (16:09)
[2022-12-06 17:42] VITALS: BP 116/78; PULSE 78; RESP 16; O2SAT 98
== END 2022-12-06 17:43 | disposition home or self-care (01) ==
LOC: ED 17:32
PROVIDERS: Emergency Provider Emergency Medicine; PCP Internal Medicine; Visit Provider Emergency Medicine
DX: G43.909 Migraine, unspecified, not intractable, without status migrainosus (principal); F17.210 Nicotine dependence, cigarettes, uncomplicated; F17.290 Nicotine dependence, other tobacco product, uncomplicated
CPT/HCPCS: 96361; 96374; 96375; 99282; J7030; A4216

== ENCOUNTER 2022-12-13 14:44 | Emergency (ER) | payer MEDICAID, SELFPAY ==
[2022-12-13 14:45] VITALS: BP 134/76; PULSE 89; RESP 16; TEMP 36.4; O2SAT 100; BMI 29.0
--- NOTE | 2022-12-13 15:03 | EDS_ITS ---
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 She was seen in this emergency department 2 to 3 weeks ago and x-rays done which were reportedly negative but she had the pain has not gotten any better. Hurts to walk on. Denies any swelling or redness. No prior foot surgery. Chief Complaint: Lower Extremity Injury Informant: patient Occured/Mechanism Mechanism/Context: No injury and No blunt trauma Onset/Context/Timing Onset: Weeks Context: Gradual Onset Timing: Continuous Quality of Pain: Dull and Aching Current Severity: Mild Maximum Severity: Mild Associated Symptoms Associated Symptoms: Negative for Parasthesia, Weakness or Loss of Funtion Narrative Narrative: 32-year-old female complaining of left foot pain with no specific injury for 3 weeks. Prior similar symptoms: Yes Recent Illness/Hospitalization: No PFSH PFS Medical History Abnormal kidney function Acute maxillary sinusitis, unspecified Alcohol abuse Anxiety and depression Asthma Back problem Bee sting Bipolar 1 disorder Bone fracture Cellulitis of left foot Chronic bronchitis Chronic dental pain Chronic headaches Chronic low back pain Chronic neck pain Contact with and (suspected) exposure to other viral communicable diseases Drug abuse Encounter for preventative adult health care examination Encounter for screening for COVID-19 GERD (gastroesophageal reflux disease) Hearing loss in left ear Hepatitis C Hx of emotional problems Left ankle sprain Lumbar radiculopathy MDD (major depressive disorder) Pneumonia PTSD (post-traumatic stress disorder) Right elbow pain Seasonal allergies Suprapubic discomfort URI (upper respiratory infection) URI (upper respiratory infection) Vertigo Vision problem Home Medications blood pressure monitor #1 ea 10/29/19 [Rx Last Taken Unknown] trazodone 50 mg tablet 50 mg PO QHS PRN Sleep 03/25/20 [History Last Taken Unknown] valacyclovir 500 mg tablet 500 mg PO DAILY 11/05/20 [History Last Taken Unknown] budesonide-formoterol HFA 160 mcg-4.5 mcg/actuation aerosol inhaler (Symbicort) 2 puff inhalation BID #10.2 grams 12/16/20 [Rx Last Taken Unknown] albuterol sulfate 90 mcg/actuation aerosol inhaler (ProAir HFA) 1 - 2 puff inhalation Q6H PRN shortness of breath or wheezing #8.5 grams 08/24/21 [Rx Last Taken Unknown] sumatriptan succinate 25 mg tablet See Rx Instructions PO .COMPLEX migraine #14 tabs 11/09/21 [Rx Last Taken Unknown] acetaminophen 500 mg tablet 500 mg PO Q6H PRN fever or pain #60 tabs 07/18/22 [Rx Last Taken Unknown] rimegepant 75 mg disintegrating tablet (Nurtec ODT) See Rx Instructions .Route .COMPLEX #8 TABLETS 09/25/22 [Rx Last Taken Unknown] methocarbamol 500 mg tablet 500 mg PO TID 5 days #15 tabs 10/28/22 [Rx Last Taken Unknown] bupropion HCl 150 mg tablet,12 hr sustained-release (Wellbutrin SR) 150 mg PO BID 30 days #60 ea 11/01/22 [Rx Last Taken Unknown] cariprazine 3 mg capsule 3 mg PO DAILY 30 days #30 caps 11/01/22 [Rx Last Taken Unknown] fluoxetine 40 mg capsule (Prozac) 40 mg PO DAILY #30 caps 11/01/22 [Rx Last Taken Unknown] hydroxyzine pamoate 25 mg capsule (Vistaril) 25 mg PO QHS #30 caps 11/01/22 [Rx Last Taken Unknown] ibuprofen 800 mg tablet 800 mg PO Q8H 11/22/22 [History Last Taken Unknown] gabapentin 400 mg capsule See Rx Instructions .Route .COMPLEX #90 caps 12/01/22 [Rx Last Taken Unknown] amlodipine 5 mg tablet 5 mg PO DAILY #30 tabs 12/08/22 [Rx Last Taken Unknown] Allergy/AdvReac Type Severity Reaction Status Date / Time zinc oxide Allergy Unknown Verified 12/13/22 14:46 naproxen [From Naprosyn] AdvReac Nausea Verified 12/13/22 14:46 Family History Unknown Alcoholism Anxiety Asthma Depression Myocardial infarction Suicide attempt Other Cancer Surgical History History of cholecystectomy History of laparoscopic appendectomy History of oral surgery Social History Smoking Status: Current every day smoker tobacco type: cigarettes and e- cigarettes alcohol intake: former year quit: 2014 substance use type: 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, methamphetamine and other what type of physical activity do you participate in: yoga and weight training frequency: 3-4 times per week ROS ROS ED ROS Narrative Denies recent illness. Review of Systems ROS Unobtainable: Denies due to encephalopathy Constitutional Constitutional ED: Denies chills or fever(s) Eyes Eyes: Denies blurry vision ENT ENT ED: Denies ear pain Cardiovascular Cardiovascular: Denies chest pain Respiratory/Chest Respiratory/Chest: Denies cough or dyspnea Gastrointestinal Gastrointestinal: Denies abdominal pain Genitourinary Genitourinary ED: Denies dysuria or hematuria Musculoskeletal Musculoskeletal: Denies arthralgias Integumentary Denies abscess Neurologic Neurologic: Denies headache(s) Psychiatric Psychiatric: Denies anxiety Endocrine Endocrinology: Denies polydipsia or polyphagia Hematologic/Lymphatic Hematologic/Lymphatic: Denies easy bleeding or easy bruising Allergic/Immunologic Allergic/Immunologic ED: Denies mouth swelling EXAM Physical Exam Narrative Exam Narrative: 32-year-old female no acute distress vital signs stable afebrile. HEENT exam unremarkable. Pierced tongue. Lungs clear. Heart regular rhythm. Abdomen soft nontender. Moving all 4 extremities. Neurovascular intact. Left hip, knee and ankle nontender. Normal range of motion. No swelling. Left foot non- swollen. Normal DP pulse. Able to wiggle her toes. Normal cap refill. Normal touch sensation. No swelling. No infection. No gross bony deformity. Midportion of the foot around the third metatarsal there is tenderness distally. No gross bony deformity. No puncture wounds or signs of trauma. Const Vital Signs: 12/13/22 14:45 Temperature 97.6 F L Temperature Source Temporal Pulse Rate 89 Respiratory Rate 16 Blood Pressure 134/76 H Blood Pressure Mean 95 Pulse Ox 100 Oxygen Delivery Method Room Air Positive well nourished and well developed; Negative for cachectic, contractures or unkempt General Appearance ED: well developed and NAD; Negative for unkempt, cachectic or contractures Nutritional Appearance: Negative for cachectic HEENT Reports moist mucous membranes normocephalic and atraumatic; Negative for trauma or tenderness Eyes PERRL General Eye ED: Negative for other Neck full ROM and supple Thyroid: Negative for tender Lymph Lymphatic: Negative for other Chest Wall inspection of chest normal and palpation of chest normal Chest: Negative for other Resp normal respiratory effort, no retractions and clear to auscultation bilaterally Effort and Inspection: Negative for pain with movement Auscultation: Negative for rales, rhonchi or wheezes Cardio regular rate, S1 normal heart sound, S2 normal heart sound and no murmurs GI non-distended and no masses; Negative for non-tender Inspection: Negative for abdominal distention Auscultation: normoactive bowel sounds Palpation: soft; Negative for tender or guarding Bladder / Kidney Exam: No other Back/Spine no CVA tenderness General Back: Negative for CVA tenderness Cervical Spine: Negative for cervical spine tenderness Thoracic Spine / Upper Back: Negative for thoracic spinal tenderness Lumbar Spine / Lower Back: Negative for lumbar spinal tenderness Extremity normal to inspection and full ROM Extremity Narrative: Tenderness distal portion of the left metatarsal No signs of trauma. No swelling. No redness. General Extremety ED: Negative for cyanosis or edema General Extremity: Negative for cyanosis or edema Neuro oriented x3, CN's II-XII intact bilaterally and moves all extremities Sensorium / Orientation: alert, oriented to person, oriented to place and oriented to time; Negative for orientation impaired, confused, lethargic or alessandro porous Motor Exam: strength 5/5 throughout Psych mental status grossly normal Appearance: Negative for unkempt Speech: No other Mood & Affect: Negative for anxious Skin no wounds Lesions: no lesions Rashes: no rashes Trauma: Negative for abrasion or laceration MDM MDM MDM Narrative Medical decision making narrative: 32-year-old female with atraumatic foot pain. Reported negative x-rays 2 to 3 weeks ago. Errol-ray today. There is no signs of infection. 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 Repeat exam unchanged. Discussed and showed the patient her x-rays. Motrin Tylenol for any pain. 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 History & Record Review Discussion w/independent historian: Patient Radiography Chest X-Ray - ED: Read by ED Physician Diagnostic Testing: Left foot x-rays 3 views interpreted by myself shows no acute abnormality. No fracture. No foreign body. No change from a prior foot x-ray several weeks ago. Discharge Plan Triage Chief Complaint: Lower Extremity Injury ED Provider: Jc Monroe Dx/Rx/DC Orders Clinical Impression: Foot sprain, Hepatitis C, Bipolar disorder Instructions: ED Foot Sprain Prescriptions: No Action trazodone 50 mg tablet 50 mg PO QHS PRN (Reason: Sleep) acetaminophen 500 mg tablet 500 mg PO Q6H PRN (Reason: fever or pain) Qty: 60 1RF bupropion HCl [Wellbutrin SR] 150 mg tablet sustained-release 12 hr 150 mg PO BID 30 Days Qty: 60 2RF Vraylar 3 mg capsule 3 mg PO DAILY 30 Days Qty: 30 2RF fluoxetine [Prozac] 40 mg capsule 40 mg PO DAILY Qty: 30 2RF hydroxyzine pamoate [Vistaril] 25 mg capsule 25 mg PO QHS Qty: 30 2RF ibuprofen 800 mg tablet 800 mg PO Q8H valacyclovir 500 mg tablet 500 mg PO DAILY methocarbamol 500 mg tablet 500 mg PO TID 5 Days Qty: 15 0RF (DME) blood pressure monitor Kit See Rx Instructions .ROUTE .MEDSUPPLY Qty: 1 0RF Rx Instructions: Check blood pressure daily for hypertension I10 Symbicort 160-4.5 mcg/actuation HFA aerosol inhaler 2 puff INHALATION BID Qty: 10.2 3RF albuterol sulfate [ProAir HFA] 90 mcg/actuation HFA aerosol inhaler 1 - 2 puff inhalation Q6H PRN (Reason: shortness of breath or wheezing) Qty: 8.5 2RF sumatriptan succinate 25 mg tablet See Rx Instructions PO .COMPLEX Qty: 14 2RF Rx Instructions: take 1 tab at onset of headache; if no relief may repeat 1 tab in 2hr; max = 4 tabs/day (24hr) PO Nurtec ODT 75 mg tablet,disintegrating See Rx Instructions .ROUTE .COMPLEX Qty: 8 3RF Dose Instruction: DISSOLVE 1 TABLET ON TOP OF TONGUE AND SWALLOW NEEDED FOR MIGRAINE HEADACHE Rx Instructions: DISSOLVE 1 TABLET ON TOP OF TONGUE AND SWALLOW NEEDED FOR MIGRAINE HEADACHE gabapentin 400 mg capsule See Rx Instructions .ROUTE .COMPLEX Qty: 90 1RF Dose Instruction: take 1 capsule by mouth every 8 hours Rx Instructions: take 1 capsule by mouth every 8 hours; amlodipine 5 mg tablet 5 mg PO DAILY Qty: 30 1RF Primary Care Provider: Navi Kemp Referrals: Navi Kemp MD [Primary Care Provider] - As Needed Vernon Hood DPM [Med Staff - Active Staff] - As soon as possible Activity Restrictions/Additional Instructions: X-rays were normal today. Unchanged from the prior. Given Tylenol for pain. 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 Disposition Disposition: Home, Self Care
--- NOTE | 2022-12-13 15:15 | RAD_ITS ---
STUDY: X-RAY - LEFT FOOT CLINICAL: Female, 32 years old. Pain following recent TECHNIQUE: 3 view(s) of the foot. COMPARISON: Comparison is made with prior study dated November 19, 2022. FINDINGS: Normal talus, calcaneus, and tarsal bones. Old avulsion fracture of the cuboid. Normal visualized subtalar, talonavicular, calcaneocuboid, tarsal and tarsometatarsal articulations. Normal metatarsi. Normal metatarsophalangeal joint of the great toe. Normal tibial and fibular sesamoid bones. Normal interphalangeal joint of the great toe. Normal phalanges of the great toe. Normal second through fifth metatarsophalangeal joints. Normal interphalangeal joints and phalanges of the lesser toes. The soft tissue structures are unremarkable. RAD/Foot min 3 Views IMPRESSION: No acute abnormality is seen. Electronically Signed: Adeel Chamberlain MD at 15:41 EDT ,
== END 2022-12-13 15:48 | disposition home or self-care (01) ==
PROVIDERS: Emergency Provider Emergency Medicine; PCP Internal Medicine; Visit Provider Emergency Medicine
DX: S93.602A Unspecified sprain of left foot, initial encounter (principal); F31.9 Bipolar disorder, unspecified; X58.XXXA Exposure to other specified factors, initial encounter; B19.20 Unspecified viral hepatitis C without hepatic coma; F17.210 Nicotine dependence, cigarettes, uncomplicated; F17.290 Nicotine dependence, other tobacco product, uncomplicated; F10.10 Alcohol abuse, uncomplicated; Y90.9 Presence of alcohol in blood, level not specified; Z79.899 Other long term (current) drug therapy
CPT/HCPCS: 73630; 99282

== ENCOUNTER → 2023-01-03 | Outpatient (CLI) | payer MEDICAID, SELFPAY ==
[2023-01-03 11:17] LABS: Prothrombin Time (Protime)PT. 12.9 SECONDS (11.7-14.9)
[2023-01-04 20:07] LABS: HCV Quant. RNA PCR 7390000 IU/mL (.); HCV log 10 6.869 (.)
== END | disposition home or self-care (01) ==
LOC: LAB 10:01
PROVIDERS: PCP Internal Medicine; Referring Provider Internal Medicine; Visit Provider Internal Medicine Infectious Disease
DX: B18.2 Chronic viral hepatitis C (principal); M76.72 Peroneal tendinitis, left leg
CPT/HCPCS: 36415; 85610; 87522; 97110; 97161

== ENCOUNTER 2023-01-10 17:30 | Outpatient (RCR) | payer MEDICAID, SELFPAY ==
--- NOTE | 2023-01-03 15:55 | HP.PTEVAL_ITS ---
Patient's Visit Information Visit Information Visit Information: ELVER JONES is a 32 year old F referred to Physical Therapy by Dr. Guido Azul DPM with a diagnosis of L peroneal tendinitis. Date of Evaluation: 01/03/23 Physical Therapist: Conrad Sumner DPT Visit Plan Frequency: 2x /Week Duration: 6 Weeks Plan: Start with US to distal peroneal tendon, add in ankle EVR eccentrics, DF stretching. Progress HEP as tolerated. Subjective Subjective: Pt. is here today for her initial evaluation with diagnosis of L peroneal tendinitis. Pt. reports hurting her L foot ~2 months ago. She believes it was from attempting to push a shovel into the ground with her L foot, jumping on the shovel to do so. Pt. reports having immediate pain, but was able to still work. Pt. has since bed to hospital x2 for evaluation. Xrays were negative, but did have an impression stating a old possible cuboid injury. Pt reports pain at lateral foot posterior to base of 5th met that tends to wrap around lateral malleolus into Achilles. Pt. reports having increased pain with prolonged standing and walking, better in sitting. No issues at night unless already i rritated. pt. is hopeful to reduce symptoms in order to get back to all work and recreational activities without limitiations. Pain L lateral foot: Pain Intensity (Out of 10): 3 Pain Intensity Range: 1 and 6 Objective Objective: POSTURE: Pt. has fairly normal posture in stance. Pt. has slight L toeing out. PALPATION: pt. has increased tenderness along lateral peroneal distal tendon, but slight more on plantar surface as well. No marked bruising or edema. NEURO: Normal patellar and Achilles DTR bilaterally. Pt. is tracey to rise on heels and toes, increased pain with heel raises, at lateral foot. ROM: L ankle: DF 11deg, PF 38deg, EVR 12deg, INV 16deg. Pt. has mild soreness with EVR motion. Pt. has normal B knee ROM without increase in symptoms. MMT: L ankle: PF 5-/5 increase NW, DF 5/5 No effect, INV 5-/5 NE, EVR 4/5 i ncrease NW. Pt. has normal B knee strength. GAIT: PT. ambulates with antalgic pattern during L stance phase with reduced rocker moment on L side. Pt. tends to walk more flat footed on the L side. Balance/Special Test Scores Lower Extremity Functional Score: 43 Goals Goal 1:: LTG: Pt. to be I with HEP. Goal Time Frame: 4-6 Weeks Goal 2:: LTG: Pt. to have full L ankle ROM without increase in symptoms. Goal Time Frame: 4-6 Weeks Goal 3:: LTG: pt. to have 5/5 strength throughout L ankle without increase in symptoms. Goal Time Frame: 4-6 Weeks Goal 4:: LTG: Pt. to ambulate with normal gait pattern without increase in L foot pain. Goal Time Frame: 4-6 Weeks Goal 5:: LTG: pt. to complete all work duties without increase in L foot pain. Goal Time Frame: 4-6 Weeks Rehabilitation Potential Physical Therapy Diagnosis: Pt. has signs and symptoms consistent with L peroneal tendinitis with subsequent hypomobility, weakness and difficulty with walking. Pt. would benefit from PT to address the above limitations progressing back to all work and recreational activities without limitations. Rehabilitation Potential: Excellent Anticipated Interventions Patient/Client Instruction: Educate patient on: Condition, Plan of Care, Risk Factors and Benefits of Fitness Program For the Purpose of:: To facilitate caregiver knowledge, To improve self management, To prevent re-injury, To improve ability to perform tasks related to life management and To improve tolerance to ADL's Therapeutic Exercise to Include: Strength training, Power training, Endurance training, Balance training, Flexibilty training, Passive ROM and Active ROM For the Purpose of:: To decrease pain, To increase ROM, To improve nutrient delivery to tissue, To increase oxygenation perfusion, To improve muscle performance and motor function, To improve performance and independence with ADL's, To decrease level of supervision to perform tasks, To improve health of tissue, To decrease soft tissue restriction and To increase flexibility/ROM Ultrasound (thermal/non thermal): Yes For the Purpose of:: To decrease pain, To decrease swelling/inflammation and To increase ROM Text: Thank you for the opportunity to evaluate your patient. For Medicare and Medicare HMO plans, please review the plan of care and approve it. It will need to be FAXED BACK to us at [phone] for Medicare purposes. For Medicare only, by signing this I certify the plan of care. Please let me know if there are questions or concerns regarding this plan of care. Physician Signature: Date:
== END 2023-01-10 19:00 | disposition home or self-care (01) ==
LOC: PT 17:30
PROVIDERS: PCP Internal Medicine; Referring Provider Student in an Organized Health Care Education/Training Program; Visit Provider Student in an Organized Health Care Education/Training Program
DX: M76.72 Peroneal tendinitis, left leg (principal)
CPT/HCPCS: 97110; 97161

== ENCOUNTER 2023-01-21 14:07 | Emergency (ER) | payer MEDICAID, SELFPAY ==
[2023-01-21 14:07] VITALS: BP 114/63; PULSE 81; RESP 16; TEMP 35.7; O2SAT 100; BMI 29.5
--- NOTE | 2023-01-21 14:41 | ED.VIS.BACK ---
HPI History of Present Illness Chief Complaint: Back Informant: patient Narrative Narrative: Current worsening left lower back pain rating down her left leg. No loss of bowel or bladder control. Denies fevers. History of herniated days from patient has seen Dr. Richardson in the past with steroid injections last time a year ago. She is current on gabapentin. She states doing yard work with increasing pain last week. Denies history of gastric ulcers or kidney injury. Prior similar symptoms: Yes and With Prior Back Pain PFSH PFSH Medical History Abnormal kidney function Acute maxillary sinusitis, unspecified Alcohol abuse Anxiety and depression Asthma Back problem Bee sting Bipolar 1 disorder Bone fracture Cellulitis of left foot Chronic bronchitis Chronic dental pain Chronic headaches Chronic low back pain Chronic neck pain Contact with and (suspected) exposure to other viral communicable diseases Drug abuse Encounter for preventative adult health care examination Encounter for screening for COVID-19 GERD (gastroesophageal reflux disease) Hearing loss in left ear Hepatitis C Hx of emotional problems Left ankle sprain Lumbar radiculopathy MDD (major depressive disorder) Pneumonia PTSD (post-traumatic stress disorder) Right elbow pain Seasonal allergies Suprapubic discomfort URI (upper respiratory infection) URI (upper respiratory infection) Vertigo Vision problem Home Medications blood pressure monitor #1 ea 10/29/19 [Rx Last Taken Unknown] trazodone 50 mg tablet 50 mg PO QHS PRN Sleep 03/25/20 [History Last Taken Unknown] valacyclovir 500 mg tablet 500 mg PO DAILY 11/05/20 [History Last Taken Unknown] budesonide-formoterol HFA 160 mcg-4.5 mcg/actuation aerosol inhaler (Symbicort) 2 puff inhalation BID #10.2 grams 12/16/20 [Rx Last Taken Unknown] albuterol sulfate 90 mcg/actuation aerosol inhaler (ProAir HFA) 1 - 2 puff inhalation Q6H PRN shortness of breath or wheezing #8.5 grams 08/24/21 [Rx Last Taken Unknown] sumatriptan succinate 25 mg tablet See Rx Instructions PO .COMPLEX migraine #14 tabs 11/09/21 [Rx Last Taken Unknown] acetaminophen 500 mg tablet 500 mg PO Q6H PRN fever or pain #60 tabs 07/18/22 [Rx Last Taken Unknown] methocarbamol 500 mg tablet 500 mg PO TID 5 days #15 tabs 10/28/22 [Rx Last Taken Unknown] ibuprofen 800 mg tablet 800 mg PO Q8H 11/22/22 [History Last Taken Unknown] gabapentin 400 mg capsule See Rx Instructions .Route .COMPLEX #90 caps 12/01/22 [Rx Last Taken Unknown] amlodipine 5 mg tablet 5 mg PO DAILY #30 tabs 12/08/22 [Rx Last Taken Unknown] rimegepant 75 mg disintegrating tablet (Nurtec ODT) See Rx Instructions .Route .COMPLEX #8 TABLETS 12/28/22 [Rx Last Taken Unknown] bupropion HCl 150 mg tablet,12 hr sustained-release See Rx Instructions .Route .COMPLEX #60 TABLETS 01/01/23 [Rx Last Taken Unknown] cariprazine 3 mg capsule (Vraylar) See Rx Instructions .Route .COMPLEX #30 caps 01/01/23 [Rx Last Taken Unknown] fluoxetine 40 mg capsule See Rx Instructions .Route .COMPLEX #30 caps 01/01/23 [Rx Last Taken Unknown] hydroxyzine pamoate 25 mg capsule See Rx Instructions .Route .COMPLEX #30 caps 01/01/23 [Rx Last Taken Unknown] ibuprofen 600 mg tablet 600 mg PO Q6H PRN PRN pain #20 TABLETS 01/21/23 [Rx Last Taken Unknown] prednisone 20 mg tablet 60 mg (3 x 20 mg) PO DAILY #15 TABLETS 01/21/23 [Rx Last Taken Unknown] tizanidine 4 mg tablet 4 mg PO Q8H PRN muscle spasticity #20 tabs 01/21/23 [Rx Last Taken Unknown] Allergy/AdvReac Type Severity Reaction Status Date / Time zinc oxide Allergy Unknown Verified 01/21/23 14:18 naproxen [From Naprosyn] AdvReac Nausea Verified 01/21/23 14:18 Family History Unknown Alcoholism Anxiety Asthma Depression Myocardial infarction Suicide attempt Other Cancer Surgical History History of cholecystectomy History of laparoscopic appendectomy History of oral surgery Social History Smoking Status: Current every day smoker tobacco type: cigarettes and e-cigarettes alcohol intake: former year quit: 2014 substance use type: 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, methamphetamine and other what type of physical activity do you participate in: yoga and weight training frequency: 3-4 times per week ROS ROS ED Constitutional Constitutional ED: Denies chills, fever(s) or sweats Eyes Eyes: Denies change in vision ENT ENT ED: Denies dysphagia or sore throat Cardiovascular Cardiovascular: Denies chest pain, leg edema, palpitations or racing heartbeat Respiratory/Chest Respiratory/Chest: Denies cough, dyspnea or dyspnea on exertion Gastrointestinal Gastrointestinal: Denies abdominal pain, diarrhea, nausea or vomiting Genitourinary Genitourinary ED: Denies dysuria, hematuria or urinary frequency Musculoskeletal Musculoskeletal: Reports back pain; Denies extremity pain or neck pain Integumentary Denies rash or wounds Neurologic Neurologic: Denies headache(s), paresthesias or weakness EXAM Physical Exam Const Vital Signs: 01/21/23 14:07 01/21/23 15:18 Temperature 96.2 F L Temperature Source Temporal Pulse Rate 81 71 Respiratory Rate 16 18 Blood Pressure 114/63 120/72 Blood Pressure Mean 80 Pulse Ox 100 100 Oxygen Delivery Method Room Air Positive well nourished and well developed General Appearance ED: well developed and NAD HEENT Reports moist mucous membranes normocephalic and atraumatic Eyes PERRL, EOMs intact bilaterally and conjunctivae normal General Eye ED: Yes normal appearance of both eyes Neck no lymphadenopathy and supple General: Negative for tenderness Chest Wall Chest: Negative for tenderness Resp normal respiratory effort and normal air movement Effort and Inspection: symmetric chest movement; Negative for respiratory distress Cardio regular rate, regular rhythm and no murmurs Peripheral Pulses: pulses 2+ throughout GI normal to inspection, nondistended, normoactive bowel sounds and non-tender Palpation: Negative for guarding or rebound tenderness present Back/Spine no CVA tenderness Back/Spine Narrative: No midline tenderness to palpation left paralumbar. Straight leg test negative. 1+ patellar reflex bilaterally Extremity normal to inspection General Extremety ED: Negative for edema or tenderness General Extremity: Negative for edema Neuro oriented x3 and no sensory deficits noted Sensorium / Orientation: awake and alert Skin no rashes or lesions noted and no wounds MDM MDM MDM Narrative Medical decision making narrative: Interventions / MDM: Differential diagnosis: Chronic back pain, sciatica Diagnosis considered but do not suspect: No cauda equina symptoms My EKG interpretation: N/A Imaging independently reviewed and interpreted by myself: N/A External documents reviewed: N/A Test considered but not ordered:N/A ED course: Patient recurrent sciatica symptoms after doing yard work. No cauda equina symptoms. Treated with NSAIDs muscle relaxers in the past. She is not a diabetic. Prednisone also started. Prescription continue for symptom control outpatient follow-up with her PCP. All questions were answered. Re-evaluation: stable Disposition discussed with patient/family/significant other: Patient Case discussed with consulting clinician: N/A This note was generated with [employer] software. It may contain incorrect words, spelling, and punctuation that were not noted in checking the note before signing. Discharge Plan Triage Chief Complaint: Back ED Provider: Jesus Mahoney Dx/Rx/DC Orders Clinical Impression: Sciatica, Chronic low back pain Instructions: ED Back Pain (Acute or Chronic), ED Sciatica Prescriptions: New ibuprofen 600 mg tablet 600 mg PO Q6H PRN PRN (Reason: pain) Qty: 20 0RF prednisone 20 mg tablet 60 mg PO DAILY Qty: 15 0RF tizanidine 4 mg tablet 4 mg PO Q8H PRN (Reason: muscle spasticity) Qty: 20 0RF No Action trazodone 50 mg tablet 50 mg PO QHS PRN (Reason: Sleep) acetaminophen 500 mg tablet 500 mg PO Q6H PRN (Reason: fever or pain) Qty: 60 1RF ibuprofen 800 mg tablet 800 mg PO Q8H valacyclovir 500 mg tablet 500 mg PO DAILY methocarbamol 500 mg tablet 500 mg PO TID 5 Days Qty: 15 0RF (DME) blood pressure monitor Kit See Rx Instructions .ROUTE .MEDSUPPLY Qty: 1 0RF Rx Instructions: Check blood pressure daily for hypertension I10 Symbicort 160-4.5 mcg/actuation HFA aerosol inhaler 2 puff INHALATION BID Qty: 10.2 3RF albuterol sulfate [ProAir HFA] 90 mcg/actuation HFA aerosol inhaler 1 - 2 puff inhalation Q6H PRN (Reason: shortness of breath or wheezing) Qty: 8.5 2RF sumatriptan succinate 25 mg tablet See Rx Instructions PO .COMPLEX Qty: 14 2RF Rx Instructions: take 1 tab at onset of headache; if no relief may repeat 1 tab in 2hr; max = 4 tabs/day (24hr) PO gabapentin 400 mg capsule See Rx Instructions .ROUTE .COMPLEX Qty: 90 1RF Dose Instruction: take 1 capsule by mouth every 8 hours Rx Instructions: take 1 capsule by mouth every 8 hours; amlodipine 5 mg tablet 5 mg PO DAILY Qty: 30 1RF Nurtec ODT 75 mg tablet,disintegrating See Rx Instructions .ROUTE .COMPLEX Qty: 8 3RF Dose Instruction: DISSOLVE 1 TABLET ON TOP OF TONGUE AND SWALLOW NEEDED FOR MIGRAINE HEADACHE Rx Instructions: DISSOLVE 1 TABLET ON TOP OF TONGUE AND SWALLOW NEEDED FOR MIGRAINE HEADACHE Vraylar 3 mg capsule See Rx Instructions .ROUTE .COMPLEX Qty: 30 2RF Dose Instruction: TAKE 1 CAPSULE BY MOUTH DAILY Rx Instructions: TAKE 1 CAPSULE BY MOUTH DAILY hydroxyzine pamoate 25 mg capsule See Rx Instructions .ROUTE .COMPLEX Qty: 30 2RF Dose Instruction: TAKE 1 CAPSULE BY MOUTH AT BEDTIME Rx Instructions: TAKE 1 CAPSULE BY MOUTH AT BEDTIME fluoxetine 40 mg capsule See Rx Instructions .ROUTE .COMPLEX Qty: 30 2RF Dose Instruction: TAKE 1 CAPSULE BY MOUTH DAILY Rx Instructions: TAKE 1 CAPSULE BY MOUTH DAILY bupropion HCl 150 mg tablet sustained-release 12 hr See Rx Instructions .ROUTE .COMPLEX Qty: 60 2RF Dose Instruction: TAKE 1 TABLET BY MOUTH TWICE A DAY Rx Instructions: TAKE 1 TABLET BY MOUTH TWICE A DAY Primary Care Provider: Navi Kemp Referrals: Nvai Kemp MD [Primary Care Provider] - 1 Week if not improving Disposition Disposition: Home, Self Care Discharge Date/Time: 01/21/23 15:22
[2023-01-21] MEDS: predniSONE 20 MG Tablet 60 MG PO (14:42)
[2023-01-21] MEDS: Orphenadrine 60 MG/2 ML Ampul IM (14:44)
[2023-01-21] MEDS: Ketorolac 30 MG/ML Syringe IM (14:45)
[2023-01-21 15:18] VITALS: BP 120/72; PULSE 71; RESP 18; O2SAT 100
== END 2023-01-21 15:22 | disposition home or self-care (01) ==
LOC: ED 14:56
PROVIDERS: Emergency Provider Emergency Medicine; PCP Internal Medicine; Visit Provider Emergency Medicine
DX: M54.40 Lumbago with sciatica, unspecified side (principal); F17.210 Nicotine dependence, cigarettes, uncomplicated; G89.29 Other chronic pain; Z79.899 Other long term (current) drug therapy
CPT/HCPCS: 96372; 99282

== ENCOUNTER → 2023-03-16 | Outpatient (CLI) | payer MEDICAID, SELFPAY ==
--- NOTE | 2023-03-16 15:43 | RAD_ITS ---
EXAM: XR RIGHT ANKLE COMPLETE, 3 OR MORE VIEWS CLINICAL INDICATION: ankle injury TECHNIQUE: Frontal, lateral and oblique views of the right ankle. COMPARISON: No relevant prior studies available. FINDINGS: BONES/JOINTS: Unremarkable. No acute fracture. No subluxation. Normal alignment. Preservation of the joint space. No sclerotic or destructive changes observed. SOFT TISSUES: Unremarkable. No soft tissue swelling or gas. No radiopaque foreign body. RAD/Ankle min 3 Views IMPRESSION: Negative right ankle x-rays. Electronically Signed: Bill Woods MD at 16:49 EST ,
== END | disposition home or self-care (01) ==
LOC: MTRAD 15:43
PROVIDERS: PCP Internal Medicine; Referring Provider Physician Assistant Surgical; Visit Provider Physician Assistant Surgical
DX: S99.911A Unspecified injury of right ankle, initial encounter (principal)
CPT/HCPCS: 73610

== ENCOUNTER 2023-03-26 17:21 | Emergency (ER) | payer MEDICAID, SELFPAY ==
[2023-03-26 17:22] VITALS: BP 119/68; PULSE 84; RESP 16; TEMP 36.2; O2SAT 98; BMI 31.0
--- NOTE | 2023-03-26 20:33 | EX.ED.DYSGE1 ---
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 Patient states that she is currently getting worked up for fibromyalgia. She has her appointment in May 2023. Patient denies any injury, patient states that she comes here when her meds do not work. PFSH <CHARLOTTE Muñoz - Last Filed: 03/26/23 20:50> [facility] Medical History Abnormal kidney function Acute maxillary sinusitis, unspecified Alcohol abuse Anxiety and depression Arthritis Asthma Back problem Bee sting Bipolar 1 disorder Bone fracture Cellulitis of left foot Chronic bronchitis Chronic dental pain Chronic headaches Chronic low back pain Chronic neck pain Contact with and (suspected) exposure to other viral communicable diseases Drug abuse Encounter for preventative adult health care examination Encounter for screening for COVID-19 GERD (gastroesophageal reflux disease) Hearing loss in left ear Hepatitis C Hx of emotional problems Hypertension Left ankle sprain Lumbar radiculopathy MDD (major depressive disorder) Pneumonia PTSD (post-traumatic stress disorder) Right elbow pain Seasonal allergies Suprapubic discomfort URI (upper respiratory infection) URI (upper respiratory infection) Vertigo Vision problem Home Medications blood pressure monitor #1 ea 10/29/19 [Rx Last Taken Unknown] trazodone 50 mg tablet 50 mg PO QHS PRN Sleep 03/25/20 [History Last Taken Unknown] valacyclovir 500 mg tablet 500 mg PO DAILY 11/05/20 [History Last Taken Unknown] budesonide-formoterol HFA 160 mcg-4.5 mcg/actuation aerosol inhaler (Symbicort) 2 puff inhalation BID #10.2 grams 12/16/20 [Rx Last Taken Unknown] albuterol sulfate 90 mcg/actuation aerosol inhaler (ProAir HFA) 1 - 2 puff inhalation Q6H PRN shortness of breath or wheezing #8.5 grams 08/24/21 [Rx Last Taken Unknown] acetaminophen 500 mg tablet 500 mg PO Q6H PRN fever or pain #60 tabs 07/18/22 [Rx Last Taken Unknown] methocarbamol 500 mg tablet 500 mg PO TID 5 days #15 tabs 10/28/22 [Rx Last Taken Unknown] rimegepant 75 mg disintegrating tablet (Nurtec ODT) See Rx Instructions .Route .COMPLEX #8 TABLETS 12/28/22 [Rx Last Taken Unknown] ibuprofen 600 mg tablet 600 mg PO Q6H PRN PRN pain #20 TABLETS 01/21/23 [Rx Last Taken Unknown] tizanidine 4 mg tablet 4 mg PO Q8H PRN muscle spasticity #20 tabs 01/21/23 [Rx Last Taken Unknown] gabapentin 400 mg capsule See Rx Instructions .Route .COMPLEX #90 caps 01/25/23 [Rx Last Taken Unknown] amlodipine 5 mg tablet 5 mg PO DAILY #30 tabs 02/02/23 [Rx Last Taken Unknown] bupropion HCl 150 mg tablet,12 hr sustained-release See Rx Instructions .Route .COMPLEX #60 TABLETS 03/19/23 [Rx Last Taken Unknown] cariprazine 3 mg capsule (Vraylar) See Rx Instructions .Route .COMPLEX #30 caps 03/19/23 [Rx Last Taken Unknown] fluoxetine 40 mg capsule See Rx Instructions .Route .COMPLEX #30 caps 03/19/23 [Rx Last Taken Unknown] hydroxyzine pamoate 25 mg capsule See Rx Instructions .Route .COMPLEX #30 caps 03/19/23 [Rx Last Taken Unknown] amoxicillin 875 mg-potassium clavulanate 125 mg tablet 1 tab PO Q12H 10 days #20 tabs 03/22/23 [Rx Last Taken Unknown] cyclobenzaprine 10 mg tablet 10 mg PO TID PRN Muscle Spasm #20 TABLETS 03/26/23 [Rx Last Taken Unknown] Allergy/AdvReac Type Severity Reaction Status Date / Time zinc oxide Allergy Unknown Verified 03/26/23 17:23 naproxen [From Naprosyn] AdvReac Nausea Verified 03/26/23 17:23 Family History Unknown Alcoholism Anxiety Asthma Depression Myocardial infarction Suicide attempt Other Cancer Surgical History History of cholecystectomy History of laparoscopic appendectomy History of oral surgery Social History Smoking Status: Current every day smoker tobacco type: cigarettes and e-cigarettes alcohol intake: current alcohol intake frequency: a few times a month substance use type: 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, methamphetamine and other what type of physical activity do you participate in: yoga and weight training frequency: 3-4 times per week ROS <CHARLOTTE Muñoz - Last Filed: 03/26/23 20:50> ROS ED ROS Narrative Constitutional: Negative for fever, chills, weight loss, weakness Eyes: Negative for vision loss, vision change, double vision ENT: Negative for any sore throat, ear pain, congestion Cardiovascular: Negative for any chest pain, tightness, palpitations Respiratory: Negative for any cough, sputum production, hemoptysis, dyspnea, dyspnea on exertion, orthopnea Gastrointestinal: Negative for any abdominal pain, nausea, vomiting, diarrhea, constipation, blood in stool, blood in vomit : Negative for any urinary frequency, dysuria, retention, blood in urine Muscle skeletal: Positive for any myalgias, arthralgias, neck pain, back pain Neurological: Negative for any headache, syncope, numbness or tingling, dizziness Skin: Negative for any rashes, lumps, itching, abrasions, lacerations Psychiatric: Negative for any depression, anxiety, stress, suicidal ideation, homicidal ideation Hematologic: Negative for any easy bruising, excessive bruising, easy bleeding Allergies: Negative for any eczema, hives, rash EXAM <CHARLOTTE Muñoz - Last Filed: 03/26/23 20:50> Physical Exam Narrative Exam Narrative: Vital signs reviewed. HEET: Head normocephalic atraumatic, TMs clear bilaterally. Posterior pharynx is clear, moist mucous membranes. Nares clear bilaterally. Neck: Supple with no lymphadenopathy or tenderness. No signs of meningismus. Cardiac: Regular rate and rhythm no murmurs gallops or rubs, equal peripheral pulses bilaterally. Respiratory: Lungs clear to auscultation bilaterally. No chest tenderness. Abdomen: Soft, nontender, nondistended. No abdominal bruit or pulsatile masses. No hepatosplenomegaly Extremities: No peripheral edema, no signs of gross trauma or deformity. Active full range of motion of all extremities. Neuro: Cranial nerves II through XII intact, no focal neurological deficits. Skin: Clean dry and intact with no rash, purpura, petechiae, vesicles or pustules. Backs/flank: No CVA tenderness, no midline spinal tenderness, no deformity. Negative for any midline spinal tenderness, more paraspinal tenderness. Psych: Normal mood and affect. No SI, HI or acute psychosis. Const Vital Signs: 03/26/23 17:22 Temperature 97.2 F L Temperature Source Temporal Pulse Rate 84 Respiratory Rate 16 Blood Pressure 119/68 Blood Pressure Mean 85 Pulse Ox 98 Oxygen Delivery Method Room Air <Dr. Kaleb Molina DO - Last Filed: 03/26/23 21:47> Physical Exam Const Vital Signs: 03/26/23 17:22 Temperature 97.2 F L Temperature Source Temporal Pulse Rate 84 Respiratory Rate 16 Blood Pressure 119/68 Blood Pressure Mean 85 Pulse Ox 98 Oxygen Delivery Method Room Air MDM <CHARLOTTE Muñoz - Last Filed: 03/26/23 20:50> [facility] Treatment and Re-Evaluation :: Patient appears generally well, patient appears nontoxic, vital signs are stable. Patient presents to the emergency department for acute on chronic pain through the full body. Differential diagnosis includes viral syndrome, fibromyalgia, acute on chronic pain. Patient examination yielded no red flag signs. There is no evidence of any cauda equina, spinal abscess. This is likely a flareup of the patient's chronic pain. Patient was given IM Toradol, Norflex here. Patient be given a prescription for cyclobenzaprine for muscle spasm. She will continue following up with her PCP as well as the doctor in May for the fibromyalgia work-up. She is happy with the plan of care, all questions answered, stable for discharge <Dr. Kaleb Molina, - Last Filed: 03/26/23 21:47> [facility] Narrative Medical decision making narrative: I have personally performed a face to face assessment of the patient and have reviewed the NAT Note. I performed a substantive portion of the visit including all aspects of the following. My archuleta findings include: History: Presents with generalized back pain that has been constant for several months. Patient states she is being evaluated for possible fibromyalgia. Patient states her pain is constant. Patient states her pain is aching. Patient states it is mainly over the lumbar area. Patient states nothing makes it worse and nothing makes it better. Patient admits to occasional radiation into her left posterior thigh. Patient states she has seen Dr. Palafox from [facility] and Dr. Falcon from [facility] in the past for her back pain. Patient denies any recent trauma or injury. Patient denies any bowel or bladder changes. Patient denies any saddle anesthesia. Exam: Vital signs are stable. Patient is afebrile. Patient is in no acute distress. Musculoskeletal exam reveals tenderness over the lumbar spine and paraspinal muscles. There is no midline tenderness. There is no bony crepitance or step-off noted. Range of motion was limited in all motions of the lumbar spine secondary to pain. Straight leg raises were negative bilaterally. Strength is 5/5 bilaterally in the lower extremities. There are no sensory deficits noted. Medical Decision Making: Patient was advised that this most likely muscular pain. Patient was given injections of Toradol and Norflex here. Patient was given a prescription for Flexeril. Patient was instructed to use ice to the area. Patient was instructed to follow-up with her primary care physician in 5 to 7 days. Patient understood and was agreeable with the plan. All questions were answered. Discharge Plan Triage Chief Complaint: Other, Pain/Inj ED Midlevel Provider: Sunil Bermeo ED Provider: Kaleb Molina Dx/Rx/DC Orders Prescriptions: No Action trazodone 50 mg tablet 50 mg PO QHS PRN (Reason: Sleep) acetaminophen 500 mg tablet 500 mg PO Q6H PRN (Reason: fever or pain) Qty: 60 1RF Vraylar 3 mg capsule See Rx Instructions .ROUTE .COMPLEX Qty: 30 2RF Dose Instruction: TAKE 1 CAPSULE BY MOUTH DAILY Rx Instructions: TAKE 1 CAPSULE BY MOUTH DAILY bupropion HCl 150 mg tablet sustained-release 12 hr See Rx Instructions .ROUTE .COMPLEX Qty: 60 2RF Dose Instruction: TAKE 1 TABLET BY MOUTH TWICE A DAY Rx Instructions: TAKE 1 TABLET BY MOUTH TWICE A DAY hydroxyzine pamoate 25 mg capsule See Rx Instructions .ROUTE .COMPLEX Qty: 30 2RF Dose Instruction: TAKE 1 CAPSULE BY MOUTH AT BEDTIME Rx Instructions: TAKE 1 CAPSULE BY MOUTH AT BEDTIME fluoxetine 40 mg capsule See Rx Instructions .ROUTE .COMPLEX Qty: 30 2RF Dose Instruction: TAKE 1 CAPSULE BY MOUTH DAILY Rx Instructions: TAKE 1 CAPSULE BY MOUTH DAILY amoxicillin-pot clavulanate 875-125 mg tablet 1 tab PO Q12H 10 Days Qty: 20 0RF valacyclovir 500 mg tablet 500 mg PO DAILY methocarbamol 500 mg tablet 500 mg PO TID 5 Days Qty: 15 0RF ibuprofen 600 mg tablet 600 mg PO Q6H PRN PRN (Reason: pain) Qty: 20 0RF tizanidine 4 mg tablet 4 mg PO Q8H PRN (Reason: muscle spasticity) Qty: 20 0RF (DME) blood pressure monitor Kit See Rx Instructions .ROUTE .MEDSUPPLY Qty: 1 0RF Rx Instructions: Check blood pressure daily for hypertension I10 Symbicort 160-4.5 mcg/actuation HFA aerosol inhaler 2 puff INHALATION BID Qty: 10.2 3RF albuterol sulfate [ProAir HFA] 90 mcg/actuation HFA aerosol inhaler 1 - 2 puff inhalation Q6H PRN (Reason: shortness of breath or wheezing) Qty: 8.5 2RF Nurtec ODT 75 mg tablet,disintegrating See Rx Instructions .ROUTE .COMPLEX Qty: 8 3RF Dose Instruction: DISSOLVE 1 TABLET ON TOP OF TONGUE AND SWALLOW NEEDED FOR MIGRAINE HEADACHE Rx Instructions: DISSOLVE 1 TABLET ON TOP OF TONGUE AND SWALLOW NEEDED FOR MIGRAINE HEADACHE gabapentin 400 mg capsule See Rx Instructions .ROUTE .COMPLEX Qty: 90 1RF Dose Instruction: take 1 capsule by mouth every 8 hours Rx Instructions: take 1 capsule by mouth every 8 hours; amlodipine 5 mg tablet 5 mg PO DAILY Qty: 30 1RF Primary Care Provider: Navi Kemp Referrals: Navi Kemp MD [Primary Care Provider] -
[2023-03-26] MEDS: Ketorolac 30 MG/ML Syringe IM (20:37)
[2023-03-26] MEDS: Orphenadrine 60 MG/2 ML Ampul IM (20:38)
== END 2023-03-26 21:00 | disposition home or self-care (01) ==
LOC: ED 20:54
PROVIDERS: Emergency Provider Emergency Medicine; PCP Internal Medicine; Visit Provider Emergency Medicine
DX: M54.50 Low back pain, unspecified (principal); G89.29 Other chronic pain; F17.210 Nicotine dependence, cigarettes, uncomplicated; F17.290 Nicotine dependence, other tobacco product, uncomplicated
CPT/HCPCS: 96372; 99282

== ENCOUNTER 2023-04-04 16:05 | Emergency (ER) | payer MEDICAID, SELFPAY ==
[2023-04-04 16:06] VITALS: BP 134/77; PULSE 92; RESP 18; TEMP 36.1; O2SAT 99; BMI 31.0
--- NOTE | 2023-04-04 16:17 | EX.ED.DYSGE1 ---
HPI History of Present Illness Chief Complaint: Cold Sx Detail of Chief Complaint: Cough and runny nose Informant: patient Narrative Narrative: Presents with cough and runny nose x2 days. She states she just recently got over a sinus infection and had been on amoxicillin which she finished 3 days ago. Cough at times productive of clear sputum with foul taste to it. She complains of headache and body aches. She denies sore throat or ear pain. She has had many sick contacts at work but she states that none of them have had COVID. [facility] Medical History Abnormal kidney function Acute maxillary sinusitis, unspecified Alcohol abuse Anxiety and depression Arthritis Asthma Back problem Bee sting Bipolar 1 disorder Bone fracture Cellulitis of left foot Chronic bronchitis Chronic dental pain Chronic headaches Chronic low back pain Chronic neck pain Contact with and (suspected) exposure to other viral communicable diseases Drug abuse Encounter for preventative adult health care examination Encounter for screening for COVID-19 GERD (gastroesophageal reflux disease) Hearing loss in left ear Hepatitis C Hx of emotional problems Hypertension Left ankle sprain Lumbar radiculopathy MDD (major depressive disorder) Pneumonia PTSD (post-traumatic stress disorder) Right elbow pain Seasonal allergies Suprapubic discomfort URI (upper respiratory infection) URI (upper respiratory infection) Vertigo Vision problem Home Medications blood pressure monitor #1 ea 10/29/19 [Rx Last Taken Unknown] trazodone 50 mg tablet 50 mg PO QHS PRN Sleep 03/25/20 [History Last Taken Unknown] valacyclovir 500 mg tablet 500 mg PO DAILY 11/05/20 [History Last Taken Unknown] budesonide-formoterol HFA 160 mcg-4.5 mcg/actuation aerosol inhaler (Symbicort) 2 puff inhalation BID #10.2 grams 12/16/20 [Rx Last Taken Unknown] albuterol sulfate 90 mcg/actuation aerosol inhaler (ProAir HFA) 1 - 2 puff inhalation Q6H PRN shortness of breath or wheezing #8.5 grams 08/24/21 [Rx Last Taken Unknown] acetaminophen 500 mg tablet 500 mg PO Q6H PRN fever or pain #60 tabs 07/18/22 [Rx Last Taken Unknown] methocarbamol 500 mg tablet 500 mg PO TID 5 days #15 tabs 10/28/22 [Rx Last Taken Unknown] rimegepant 75 mg disintegrating tablet (Nurtec ODT) See Rx Instructions .Route .COMPLEX #8 TABLETS 12/28/22 [Rx Last Taken Unknown] ibuprofen 600 mg tablet 600 mg PO Q6H PRN PRN pain #20 TABLETS 01/21/23 [Rx Last Taken Unknown] tizanidine 4 mg tablet 4 mg PO Q8H PRN muscle spasticity #20 tabs 01/21/23 [Rx Last Taken Unknown] bupropion HCl 150 mg tablet,12 hr sustained-release See Rx Instructions .Route .COMPLEX #60 TABLETS 03/19/23 [Rx Last Taken Unknown] cariprazine 3 mg capsule (Vraylar) See Rx Instructions .Route .COMPLEX #30 caps 03/19/23 [Rx Last Taken Unknown] fluoxetine 40 mg capsule See Rx Instructions .Route .COMPLEX #30 caps 03/19/23 [Rx Last Taken Unknown] hydroxyzine pamoate 25 mg capsule See Rx Instructions .Route .COMPLEX #30 caps 03/19/23 [Rx Last Taken Unknown] cyclobenzaprine 10 mg tablet 10 mg PO TID PRN Muscle Spasm #20 TABLETS 03/26/23 [Rx Last Taken Unknown] gabapentin 400 mg capsule See Rx Instructions .Route .COMPLEX #90 caps 03/28/23 [Rx Last Taken Unknown] amlodipine 5 mg tablet See Rx Instructions .Route .COMPLEX #30 tabs 04/03/23 [Rx Last Taken Unknown] benzonatate 200 mg capsule 200 mg PO TID PRN cough #20 caps 04/04/23 [Rx Last Taken Unknown] Allergy/AdvReac Type Severity Reaction Status Date / Time zinc oxide Allergy Unknown Verified 03/26/23 17:23 naproxen [From Naprosyn] AdvReac Nausea Verified 03/26/23 17:23 Family History Unknown Alcoholism Anxiety Asthma Depression Myocardial infarction Suicide attempt Other Cancer Surgical History History of cholecystectomy History of laparoscopic appendectomy History of oral surgery Social History Smoking Status: Current every day smoker tobacco type: cigarettes and e-cigarettes alcohol intake: current alcohol intake frequency: a few times a month substance use type: 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, methamphetamine and other what type of physical activity do you participate in: yoga and weight training frequency: 3-4 times per week ROS ROS ED Review of Systems ROS Unobtainable: other Constitutional Constitutional ED: Reports lethargy; Denies chills, fever(s), sweats or weight loss Eyes Eyes: Denies blurry vision, change in vision or diplopia ENT ENT ED: Denies rhinorrhea or sore throat Cardiovascular Cardiovascular: Denies chest pain, orthopnea or racing heartbeat Respiratory/Chest Respiratory/Chest: Reports cough and sputum; Denies dyspnea, dyspnea on exertion or orthopnea Gastrointestinal Gastrointestinal: Denies abdominal pain, diarrhea, nausea or vomiting Genitourinary Genitourinary ED: Denies dysuria, hematuria or urinary frequency Musculoskeletal Musculoskeletal: Denies arthralgias, back pain, myalgias or neck pain Integumentary Denies abscess, Abrasions or rash Neurologic Neurologic: Denies headache(s) or weakness Psychiatric Psychiatric: Denies anxiety, depression or suicidal thoughts Endocrine Endocrinology: Denies polydipsia, polyphagia or polyuria Hematologic/Lymphatic Hematologic/Lymphatic: Denies easy bleeding, easy bruising or lymphadenopathy Allergic/Immunologic Allergic/Immunologic ED: Denies mouth swelling, tongue swelling or urticaria EXAM Physical Exam Const Vital Signs: 04/04/23 16:06 04/04/23 16:05 Temperature 97.0 F L Temperature Source Temporal Pulse Rate 92 Respiratory Rate 18 Respiratory Effort Normal Non-Labored Respiratory Pattern Normal Blood Pressure 134/77 H Blood Pressure Mean 96 Pulse Ox 99 Oxygen Delivery Method Room Air Positive well nourished and well developed General Appearance ED: well developed and NAD HEENT Reports TM's clear and moist mucous membranes normocephalic and atraumatic; Negative for trauma or tenderness Tympanic Membrane ED: Yes TM's clear Eyes PERRL and EOMs intact bilaterally General Eye ED: Negative for pale conjunctiva or scleral icterus Neck no lymphadenopathy, supple and no JVD General: Negative for tenderness Chest Wall inspection of chest normal and palpation of chest normal Chest: Negative for tenderness Resp normal respiratory effort and clear to auscultation bilaterally Effort and Inspection: Negative for respiratory distress or pain with movement Auscultation: Negative for rhonchi, wheezes or diminished lung sounds Cardio regular rate, regular rhythm, S1 normal heart sound, S2 normal heart sound and no murmurs Peripheral Pulses: pulses 2+ throughout GI normal to inspection, nondistended, normoactive bowel sounds, soft to palpation, non-tender, non-distended and no masses Back/Spine no CVA tenderness and no thoracic nor lumbar tenderness Extremity normal to inspection General Extremety ED: Negative for edema General Extremity: Negative for edema Neuro oriented x3, CN's II-XII intact bilaterally, no sensory deficits noted and gait normal Sensorium / Orientation: awake, alert, oriented to person, oriented to place and oriented to time Motor Exam: strength 5/5 throughout and strength abnormal Psych mental status grossly normal Skin no rashes or lesions noted and no wounds MDM MDM MDM Narrative Medical decision making narrative: With cough and body aches. Suspect likely viral URI. I did check a COVID and flu rapid test which were both negative. Clinically patient looks well. Recommended symptomatic care with antitussive and ibuprofen as needed for body aches. Advised to follow-up with primary care physician within next 5 to 7 days. Lab Data Attestation: I reviewed the patient's lab results. Discharge Plan Triage Chief Complaint: Cold Sx ED Provider: Davdi Persaud Dx/Rx/DC Orders Clinical Impression: Viral URI Instructions: ED URI, Viral, No Abx (Adult) Prescriptions: New benzonatate 200 mg capsule 200 mg PO TID PRN (Reason: cough) Qty: 20 0RF No Action trazodone 50 mg tablet 50 mg PO QHS PRN (Reason: Sleep) acetaminophen 500 mg tablet 500 mg PO Q6H PRN (Reason: fever or pain) Qty: 60 1RF Vraylar 3 mg capsule See Rx Instructions .ROUTE .COMPLEX Qty: 30 2RF Dose Instruction: TAKE 1 CAPSULE BY MOUTH DAILY Rx Instructions: TAKE 1 CAPSULE BY MOUTH DAILY bupropion HCl 150 mg tablet sustained-release 12 hr See Rx Instructions .ROUTE .COMPLEX Qty: 60 2RF Dose Instruction: TAKE 1 TABLET BY MOUTH TWICE A DAY Rx Instructions: TAKE 1 TABLET BY MOUTH TWICE A DAY hydroxyzine pamoate 25 mg capsule See Rx Instructions .ROUTE .COMPLEX Qty: 30 2RF Dose Instruction: TAKE 1 CAPSULE BY MOUTH AT BEDTIME Rx Instructions: TAKE 1 CAPSULE BY MOUTH AT BEDTIME fluoxetine 40 mg capsule See Rx Instructions .ROUTE .COMPLEX Qty: 30 2RF Dose Instruction: TAKE 1 CAPSULE BY MOUTH DAILY Rx Instructions: TAKE 1 CAPSULE BY MOUTH DAILY valacyclovir 500 mg tablet 500 mg PO DAILY methocarbamol 500 mg tablet 500 mg PO TID 5 Days Qty: 15 0RF ibuprofen 600 mg tablet 600 mg PO Q6H PRN PRN (Reason: pain) Qty: 20 0RF tizanidine 4 mg tablet 4 mg PO Q8H PRN (Reason: muscle spasticity) Qty: 20 0RF cyclobenzaprine 10 mg tablet 10 mg PO TID PRN (Reason: Muscle Spasm) Qty: 20 0RF (DME) blood pressure monitor Kit See Rx Instructions .ROUTE .MEDSUPPLY Qty: 1 0RF Rx Instructions: Check blood pressure daily for hypertension I10 Symbicort 160-4.5 mcg/actuation HFA aerosol inhaler 2 puff INHALATION BID Qty: 10.2 3RF albuterol sulfate [ProAir HFA] 90 mcg/actuation HFA aerosol inhaler 1 - 2 puff inhalation Q6H PRN (Reason: shortness of breath or wheezing) Qty: 8.5 2RF Nurtec ODT 75 mg tablet,disintegrating See Rx Instructions .ROUTE .COMPLEX Qty: 8 3RF Dose Instruction: DISSOLVE 1 TABLET ON TOP OF TONGUE AND SWALLOW NEEDED FOR MIGRAINE HEADACHE Rx Instructions: DISSOLVE 1 TABLET ON TOP OF TONGUE AND SWALLOW NEEDED FOR MIGRAINE HEADACHE gabapentin 400 mg capsule See Rx Instructions .ROUTE .COMPLEX Qty: 90 1RF Dose Instruction: take 1 capsule by mouth every 8 hours Rx Instructions: take 1 capsule by mouth every 8 hours; amlodipine 5 mg tablet See Rx Instructions .ROUTE .COMPLEX Qty: 30 0RF Dose Instruction: take 1 tablet by mouth daily Rx Instructions: take 1 tablet by mouth daily Primary Care Provider: Navi Kemp Referrals: Navi Kemp MD [Primary Care Provider] - 3-5 Days Disposition Disposition: Home, Self Care
[2023-04-04 17:13] VITALS: PULSE 79; RESP 16; O2SAT 98
== END 2023-04-04 17:14 | disposition home or self-care (01) ==
PROVIDERS: Emergency Provider Emergency Medicine; PCP Internal Medicine; Visit Provider Emergency Medicine
DX: J06.9 Acute upper respiratory infection, unspecified (principal); F17.210 Nicotine dependence, cigarettes, uncomplicated; F17.290 Nicotine dependence, other tobacco product, uncomplicated
CPT/HCPCS: 87428; 99282

== ENCOUNTER 2023-04-26 14:06 | Emergency (ER) | payer MEDICAID, SELFPAY ==
[2023-04-26 14:07] VITALS: BP 125/72; PULSE 92; RESP 14; TEMP 36.8; O2SAT 98; BMI 30.7
== END 2023-04-26 15:48 | disposition left against medical advice (07) ==
LOC: ED 16:36
PROVIDERS: PCP Internal Medicine
DX: G43.909 Migraine, unspecified, not intractable, without status migrainosus (principal); F43.10 Post-traumatic stress disorder, unspecified; B19.20 Unspecified viral hepatitis C without hepatic coma; F17.210 Nicotine dependence, cigarettes, uncomplicated; F17.290 Nicotine dependence, other tobacco product, uncomplicated; Z79.899 Other long term (current) drug therapy

== ENCOUNTER 2023-04-30 19:11 | Emergency (ER) | payer MEDICAID, SELFPAY ==
[2023-04-30 19:12] VITALS: BP 140/90; PULSE 98; RESP 14; TEMP 36.4; O2SAT 100; BMI 30.7
--- NOTE | 2023-04-30 19:34 | EDS_ITS ---
HPI History of Present Illness Chief Complaint: Headache Informant: patient Onset/Context/Timing Onset: Days Context: Gradual Timing: Continuous Quality -Headache: Positive for Similar Prior Headaches, Dull and Throbbing Current Severity: Moderate Maximum Severity: Moderate Associated Symptoms/Injury Associated Symptoms: Positive for Nausea; Negative for Fever, Vomiting, Sore Throat, Sinus Pressure, Numbness, Tingling, Preceding Aura, Visual Changes, Blurred Vision, Photophobia or Visual Loss Injury - REEVES: Negative for Direct Trauma, Fall or Assault Narrative Narrative: 32-year-old female history of PTSD, hep C for which she is on medications for bipolar migraine headaches. She had a unremarkable CT of her brain 8 months ago. Patient states that she has been being treated for hep C and has had a migraine headache for over a week. Behind her left eye. Associated sonophobia and photophobia. Nausea without vomiting. No trouble moving her arms or legs. No ataxia. No vomiting. No fever. No sinus congestion. She is on no blood thinners. She has had no head trauma. Prior similar symptoms: Yes Recent Illness/Hospitalization: No PFSH PFS Medical History Abnormal kidney function Acute maxillary sinusitis, unspecified Alcohol abuse Anxiety and depression Arthritis Asthma Back problem Bee sting Bipolar 1 disorder Bone fracture Cellulitis of left foot Chronic bronchitis Chronic dental pain Chronic headaches Chronic low back pain Chronic neck pain Contact with and (suspected) exposure to other viral communicable diseases Drug abuse Encounter for preventative adult health care examination Encounter for screening for COVID-19 GERD (gastroesophageal reflux disease) Hearing loss in left ear Hepatitis C Hx of emotional problems Hypertension Left ankle sprain Lumbar radiculopathy MDD (major depressive disorder) Pneumonia PTSD (post-traumatic stress disorder) Right elbow pain Seasonal allergies Suprapubic discomfort URI (upper respiratory infection) URI (upper respiratory infection) Vertigo Vision problem Home Medications blood pressure monitor #1 ea 10/29/19 [Rx Last Taken Unknown] trazodone 50 mg tablet 50 mg PO QHS PRN Sleep 03/25/20 [History Last Taken Unknown] valacyclovir 500 mg tablet 500 mg PO DAILY 11/05/20 [History Last Taken Unknown] budesonide-formoterol HFA 160 mcg-4.5 mcg/actuation aerosol inhaler (Symbicort) 2 puff inhalation BID #10.2 grams 08/12/21 [Rx Last Taken Unknown] albuterol sulfate 90 mcg/actuation aerosol inhaler (ProAir HFA) 1 - 2 puff inhalation Q6H PRN shortness of breath or wheezing #8.5 grams 08/24/21 [Rx Last Taken Unknown] acetaminophen 500 mg tablet 500 mg PO Q6H PRN fever or pain #60 tabs 07/18/22 [Rx Last Taken Unknown] methocarbamol 500 mg tablet 500 mg PO TID 5 days #15 tabs 10/28/22 [Rx Last Taken Unknown] rimegepant 75 mg disintegrating tablet (Nurtec ODT) See Rx Instructions .Route .COMPLEX #8 TABLETS 12/28/22 [Rx Last Taken Unknown] ibuprofen 600 mg tablet 600 mg PO Q6H PRN PRN pain #20 TABLETS 01/21/23 [Rx Last Taken Unknown] bupropion HCl 150 mg tablet,12 hr sustained-release See Rx Instructions .Route .COMPLEX #60 TABLETS 03/19/23 [Rx Last Taken Unknown] cariprazine 3 mg capsule (Vraylar) See Rx Instructions .Route .COMPLEX #30 caps 03/19/23 [Rx Last Taken Unknown] fluoxetine 40 mg capsule See Rx Instructions .Route .COMPLEX #30 caps 03/19/23 [Rx Last Taken Unknown] hydroxyzine pamoate 25 mg capsule See Rx Instructions .Route .COMPLEX #30 caps 03/19/23 [Rx Last Taken Unknown] gabapentin 400 mg capsule See Rx Instructions .Route .COMPLEX #90 caps 03/28/23 [Rx Last Taken Unknown] amlodipine 5 mg tablet See Rx Instructions .Route .COMPLEX #30 tabs 04/03/23 [Rx Last Taken Unknown] benzonatate 200 mg capsule 200 mg PO TID PRN cough #20 caps 04/04/23 [Rx Last Taken Unknown] glecaprevir 100 mg-pibrentasvir 40 mg tablet (Mavyret) 3 tab PO DAILY 04/30/23 [History Last Taken Unknown] Allergy/AdvReac Type Severity Reaction Status Date / Time zinc oxide Allergy Unknown Verified 04/30/23 19:14 naproxen [From Naprosyn] AdvReac Nausea Verified 04/30/23 19:14 Family History Unknown Alcoholism Anxiety Asthma Depression Myocardial infarction Suicide attempt Other Cancer Surgical History History of cholecystectomy History of laparoscopic appendectomy History of oral surgery Social History Smoking Status: Current every day smoker tobacco type: cigarettes and e- cigarettes alcohol intake: current alcohol intake frequency: a few times a month substance use type: 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, methamphetamine and other what type of physical activity do you participate in: yoga and weight training frequency: 3-4 times per week ROS ROS ED ROS Narrative Headache and nausea. Review of Systems ROS Unobtainable: Denies due to encephalopathy Constitutional Constitutional ED: Denies chills or fever(s) Eyes Eyes: Denies blurry vision ENT ENT ED: Denies ear pain Cardiovascular Cardiovascular: Denies chest pain Respiratory/Chest Respiratory/Chest: Denies cough or dyspnea Gastrointestinal Gastrointestinal: Reports nausea; Denies abdominal pain, diarrhea or vomiting Genitourinary Genitourinary ED: Denies dysuria or hematuria Musculoskeletal Musculoskeletal: Denies arthralgias Integumentary Denies abscess Neurologic Neurologic: Reports headache(s) Psychiatric Psychiatric: Denies anxiety or depression Hematologic/Lymphatic Hematologic/Lymphatic: Denies easy bleeding Allergic/Immunologic Allergic/Immunologic ED: Denies mouth swelling or tongue swelling EXAM Physical Exam Narrative Exam Narrative: Well-appearing 32-year-old female sitting in bed in a darkened room. Vital signs stable afebrile. H EENT exam unremarkable atraumatic. Pupils round reactive to light. Photophobic. No facial droop. Normal speech. No trauma to her face or scalp. Neck nontender no meningismus. No lymphadenopathy. Able to touch chin to chest. Lungs clear to auscultation bilaterally. Heart regular rhythm no murmur. Abdomen soft nontender. Moving all 4 extremities. Neurologic exam normal. 5-5 waistband setter lockstitch strength. Dorsi plantarflexion intact. Fingertip to nose and [id number] within normal limits. Const Vital Signs: 04/30/23 19:12 Temperature 97.6 F L Temperature Source Temporal Pulse Rate 98 Respiratory Rate 14 Blood Pressure 140/90 H Blood Pressure Mean 106 Pulse Ox 100 Oxygen Delivery Method Room Air Positive well nourished and well developed; Negative for obese, cachectic, contractures or unkempt General Appearance ED: well developed and NAD; Negative for unkempt, cachectic, contractures, cyanotic or diaphoretic Nutritional Appearance: Negative for cachectic or obese HEENT Reports normocephalic and moist mucous membranes atraumatic; Negative for trauma, tenderness, temporal artery tenderness or vesicular rash Face and Sinus: Negative for sinus tenderness Eyes PERRL and EOMs intact bilaterally General Eye ED: Negative for pale conjunctiva, scleral icterus or other Neck no lymphadenopathy, supple, no meningeal signs and no JVD General: Negative for tenderness Resp normal respiratory effort and clear to auscultation bilaterally Cardio regular rate, regular rhythm, S1 normal heart sound, S2 normal heart sound and no murmurs Rate: Negative for bradycardia or tachycardic Rhythm: Negative for abnormal rhythm GI non-tender and non-distended Auscultation: normoactive bowel sounds Palpation: soft and firm; Negative for tender, guarding or rigid Back/Spine no CVA tenderness General Back: Negative for CVA tenderness Cervical Spine: Negative for cervical spine tenderness Thoracic Spine / Upper Back: Negative for thoracic spinal tenderness Lumbar Spine / Lower Back: Negative for lumbar spinal tenderness Extremity normal to inspection, full ROM and normal capillary refill General Extremety ED: Negative for edema or tenderness General Extremity: Negative for edema Neuro oriented x3 and CN's II-XII intact bilaterally Sensorium / Orientation: awake, oriented to person, oriented to place and oriented to time; Negative for orientation impaired Coordination / Balance: [id number] test normal and [id number] test normal Speech: speech normal Motor Exam: strength 5/5 throughout Psych mental status grossly normal Appearance: Negative for unkempt Attitude: No agitated Mood & Affect: Negative for depressed, anxious or tearful Skin General Skin Exam: elasticity normal Lesions: no lesions and No lesion noted Rashes: no rashes and No rashes noted Trauma: Negative for abrasion MDM MDM MDM Narrative Medical decision making narrative: 32-year-old female with history of migraines with a migraine-like headache. Normal exam and normal neurologic exam. She will be treated with IV fluids, Toradol, Benadryl and Zofran and reassessed. Repeat exam at 9:10 PM headache resolved. Neurologic exam remains normal. Patient feels comfortable being discharged home. Discharge Plan Triage Chief Complaint: Headache ED Provider: Jc Monroe Dx/Rx/DC Orders Clinical Impression: History of hepatitis, History of posttraumatic stress disorder (PTSD), Headache, migraine Instructions: ED, Migraine (Classical) Prescriptions: No Action trazodone 50 mg tablet 50 mg PO QHS PRN (Reason: Sleep) acetaminophen 500 mg tablet 500 mg PO Q6H PRN (Reason: fever or pain) Qty: 60 1RF Vraylar 3 mg capsule See Rx Instructions .ROUTE .COMPLEX Qty: 30 2RF Dose Instruction: TAKE 1 CAPSULE BY MOUTH DAILY Rx Instructions: TAKE 1 CAPSULE BY MOUTH DAILY bupropion HCl 150 mg tablet sustained-release 12 hr See Rx Instructions .ROUTE .COMPLEX Qty: 60 2RF Dose Instruction: TAKE 1 TABLET BY MOUTH TWICE A DAY Rx Instructions: TAKE 1 TABLET BY MOUTH TWICE A DAY hydroxyzine pamoate 25 mg capsule See Rx Instructions .ROUTE .COMPLEX Qty: 30 2RF Dose Instruction: TAKE 1 CAPSULE BY MOUTH AT BEDTIME Rx Instructions: TAKE 1 CAPSULE BY MOUTH AT BEDTIME fluoxetine 40 mg capsule See Rx Instructions .ROUTE .COMPLEX Qty: 30 2RF Dose Instruction: TAKE 1 CAPSULE BY MOUTH DAILY Rx Instructions: TAKE 1 CAPSULE BY MOUTH DAILY valacyclovir 500 mg tablet 500 mg PO DAILY methocarbamol 500 mg tablet 500 mg PO TID 5 Days Qty: 15 0RF ibuprofen 600 mg tablet 600 mg PO Q6H PRN PRN (Reason: pain) Qty: 20 0RF Mavyret 100-40 mg tablet 3 tab PO DAILY Rx Instructions: must administer with a meal/food benzonatate 200 mg capsule 200 mg PO TID PRN (Reason: cough) Qty: 20 0RF (DME) blood pressure monitor Kit See Rx Instructions .ROUTE .MEDSUPPLY Qty: 1 0RF Rx Instructions: Check blood pressure daily for hypertension I10 Symbicort 160-4.5 mcg/actuation HFA aerosol inhaler 2 puff INHALATION BID Qty: 10.2 3RF albuterol sulfate [ProAir HFA] 90 mcg/actuation HFA aerosol inhaler 1 - 2 puff inhalation Q6H PRN (Reason: shortness of breath or wheezing) Qty: 8.5 2RF Nurtec ODT 75 mg tablet,disintegrating See Rx Instructions .ROUTE .COMPLEX Qty: 8 3RF Dose Instruction: DISSOLVE 1 TABLET ON TOP OF TONGUE AND SWALLOW NEEDED FOR MIGRAINE HEADACH E Rx Instructions: DISSOLVE 1 TABLET ON TOP OF TONGUE AND SWALLOW NEEDED FOR MIGRAINE HEADACHE gabapentin 400 mg capsule See Rx Instructions .ROUTE .COMPLEX Qty: 90 1RF Dose Instruction: take 1 capsule by mouth every 8 hours Rx Instructions: take 1 capsule by mouth every 8 hours; amlodipine 5 mg tablet See Rx Instructions .ROUTE .COMPLEX Qty: 30 0RF Dose Instruction: take 1 tablet by mouth daily Rx Instructions: take 1 tablet by mouth daily Primary Care Provider: Navi Kemp Referrals: Navi Kemp MD [Primary Care Provider] - As Needed Activity Restrictions/Additional Instructions: Follow-up with your doctor as needed. Disposition Disposition: Home, Self Care
[2023-04-30] MEDS: 0.9% Normal Saline (1000mL) 1,000 ML 1000 ML IV (19:44)
[2023-04-30] MEDS: Ketorolac 30 MG/ML Syringe IV (19:44)
[2023-04-30] MEDS: DiphenhydrAMINE 50 MG/ML Syringe 25 MG IV (19:45)
[2023-04-30] MEDS: Ondansetron 4 MG/2 ML Vial IV (19:46)
== END 2023-04-30 21:21 | disposition home or self-care (01) ==
PROVIDERS: Emergency Provider Emergency Medicine; PCP Internal Medicine; Visit Provider Emergency Medicine
DX: G43.909 Migraine, unspecified, not intractable, without status migrainosus (principal); F17.210 Nicotine dependence, cigarettes, uncomplicated; F17.290 Nicotine dependence, other tobacco product, uncomplicated; J45.909 Unspecified asthma, uncomplicated; F41.9 Anxiety disorder, unspecified; F32.A Depression, unspecified; G89.29 Other chronic pain; Z79.899 Other long term (current) drug therapy
CPT/HCPCS: 96361; 96374; 96375; 99283; J7030; A4216; J2405

== ENCOUNTER 2023-05-13 16:52 | Emergency (ER) | payer MEDICAID, SELFPAY ==
[2023-05-13 16:53] VITALS: BP 123/74; PULSE 91; RESP 16; TEMP 36.4; O2SAT 100
--- NOTE | 2023-05-13 16:59 | EDS_ITS ---
HPI HPI - URI History of Present Illness Chief Complaint: Cold Sx Narrative Narrative: 32-year-old female presenting for evaluation. She states she has chills, body aches, mild cough. She has been exposed to COVID by 3 of her friends. Patient denies fever. She denies vomiting but does have some nausea. No dyspnea. ROS ROS ED Constitutional Constitutional ED: Denies chills, fever(s) or sweats Eyes Eyes: Denies blurry vision or change in vision ENT ENT ED: Denies ear pain or sore throat Cardiovascular Cardiovascular: Denies chest pain, palpitations or racing heartbeat Respiratory/Chest Respiratory/Chest: Denies cough, dyspnea or sputum Gastrointestinal Gastrointestinal: Reports nausea; Denies abdominal pain, constipation, diarrhea or vomiting Genitourinary Genitourinary ED: Denies dysuria, hematuria or urinary frequency Musculoskeletal Musculoskeletal: Denies arthralgias, myalgias or neck pain Integumentary Denies abscess, Abrasions or rash Neurologic Neurologic: Reports headache(s); Denies weakness Psychiatric Psychiatric: Denies anxiety, depression, suicidal ideation or suicidal thoughts Endocrine Endocrinology: Denies polydipsia or polyuria [facility] Medical History Abnormal kidney function Acute maxillary sinusitis, unspecified Alcohol abuse Anxiety and depression Arthritis Asthma Back problem Bee sting Bipolar 1 disorder Bone fracture Cellulitis of left foot Chronic bronchitis Chronic dental pain Chronic headaches Chronic low back pain Chronic neck pain Contact with and (suspected) exposure to other viral communicable diseases Drug abuse Encounter for preventative adult health care examination Encounter for screening for COVID-19 GERD (gastroesophageal reflux disease) Hearing loss in left ear Hepatitis C Hx of emotional problems Hypertension Left ankle sprain Lumbar radiculopathy MDD (major depressive disorder) Pneumonia PTSD (post-traumatic stress disorder) Right elbow pain Seasonal allergies Suprapubic discomfort URI (upper respiratory infection) URI (upper respiratory infection) Vertigo Vision problem Home Medications blood pressure monitor #1 ea 10/29/19 [Rx Last Taken Unknown] trazodone 50 mg tablet 50 mg PO QHS PRN Sleep 03/25/20 [History Last Taken Unknown] valacyclovir 500 mg tablet 500 mg PO DAILY 11/05/20 [History Last Taken Unknown] budesonide-formoterol HFA 160 mcg-4.5 mcg/actuation aerosol inhaler (Symbicort) 2 puff inhalation BID #10.2 grams 12/16/20 [Rx Last Taken Unknown] albuterol sulfate 90 mcg/actuation aerosol inhaler (ProAir HFA) 1 - 2 puff inhalation Q6H PRN shortness of breath or wheezing #8.5 grams 08/24/21 [Rx Last Taken Unknown] acetaminophen 500 mg tablet 500 mg PO Q6H PRN fever or pain #60 tabs 07/18/22 [Rx Last Taken Unknown] ibuprofen 600 mg tablet 600 mg PO Q6H PRN PRN pain #20 TABLETS 01/21/23 [Rx Last Taken Unknown] bupropion HCl 150 mg tablet,12 hr sustained-release See Rx Instructions .Route .COMPLEX #60 TABLETS 03/19/23 [Rx Last Taken Unknown] cariprazine 3 mg capsule (Vraylar) See Rx Instructions .Route .COMPLEX #30 caps 03/19/23 [Rx Last Taken Unknown] fluoxetine 40 mg capsule See Rx Instructions .Route .COMPLEX #30 caps 03/19/23 [Rx Last Taken Unknown] hydroxyzine pamoate 25 mg capsule See Rx Instructions .Route .COMPLEX #30 caps 03/19/23 [Rx Last Taken Unknown] gabapentin 400 mg capsule See Rx Instructions .Route .COMPLEX #90 caps 03/28/23 [Rx Last Taken Unknown] glecaprevir 100 mg-pibrentasvir 40 mg tablet (Mavyret) 3 tab PO DAILY 04/30/23 [History Last Taken Unknown] atogepant 10 mg tablet (Qulipta) 10 mg PO DAILY #30 tabs 05/03/23 [Rx Last Taken Unknown] rizatriptan 10 mg tablet See Rx Instructions PO .COMPLEX #10 tabs 05/03/23 [Rx Last Taken Unknown] benzonatate 200 mg capsule 200 mg PO TID PRN cough #14 caps 05/08/23 [Rx Last Taken Unknown] amlodipine 5 mg tablet See Rx Instructions .Route .COMPLEX #90 tabs 05/11/23 [Rx Last Taken Unknown] Allergy/AdvReac Type Severity Reaction Status Date / Time zinc oxide Allergy Unknown Verified 05/08/23 09:42 naproxen [From Naprosyn] AdvReac Nausea Verified 05/08/23 09:42 Family History Unknown Alcoholism Anxiety Asthma Depression Myocardial infarction Suicide attempt Other Cancer Surgical History History of cholecystectomy History of laparoscopic appendectomy History of oral surgery Social History Smoking Status: Current every day smoker tobacco type: cigarettes and e- cigarettes alcohol intake: current alcohol intake frequency: a few times a month substance use type: 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, methamphetamine and other what type of physical activity do you participate in: yoga and weight training frequency: 3-4 times per week EXAM Physical Exam Const Vital Signs: 05/13/23 16:53 05/13/23 17:27 05/13/23 18:14 Temperature 97.5 F L Temperature Source Temporal Pulse Rate 91 71 Respiratory Rate 16 16 Respiratory Effort Normal Respiratory Pattern Normal Blood Pressure 123/74 H 118/73 Blood Pressure Mean 90 88 Pulse Ox 100 98 Oxygen Delivery Method Room Air General Appearance ED: NAD; Negative for pallor HEENT Reports moist mucous membranes Throat: posterior oropharynx normal Eyes PERRL and EOMs intact bilaterally Neck no lymphadenopathy and supple Resp normal respiratory effort Auscultation: Negative for rales, rhonchi or wheezes Cardio Rate: regular rate Rhythm: regular rhythm GI non-tender Extremity normal to inspection Neuro oriented x3 and CN's II-XII intact bilaterally Sensorium / Orientation: alert Psych mental status grossly normal Skin General Skin Exam: Negative for jaundice or pallor MDM MDM MDM Narrative Medical decision making narrative: 32-year-old female presenting with nausea, body aches, chills. Patient concerned that she has been exposed to COVID. She wants to be tested. She also requesting a shot of Toradol for her myalgias. COVID, influenza, RSV are all negative. Patient feeling better after Toradol. Patient will be discharged home. She has Zofran at home as needed. Impression 1. Viral syndrome Discharge Plan Triage Chief Complaint: Cold Sx ED Provider: Darryn Mares Dx/Rx/DC Orders Instructions: ED Pharyngitis, Viral Prescriptions: No Action trazodone 50 mg tablet 50 mg PO QHS PRN (Reason: Sleep) acetaminophen 500 mg tablet 500 mg PO Q6H PRN (Reason: fever or pain) Qty: 60 1RF Qulipta 10 mg tablet 10 mg PO DAILY Qty: 30 1RF rizatriptan 10 mg tablet See Rx Instructions PO .COMPLEX Qty: 10 3RF Rx Instructions: take 1 tab at onset of headache; if no relief may repeat 1 tab after at least 2 hrs; max = 3 tabs/24 hr PO Vraylar 3 mg capsule See Rx Instructions .ROUTE .COMPLEX Qty: 30 2RF Dose Instruction: TAKE 1 CAPSULE BY MOUTH DAILY Rx Instructions: TAKE 1 CAPSULE BY MOUTH DAILY bupropion HCl 150 mg tablet sustained-release 12 hr See Rx Instructions .ROUTE .COMPLEX Qty: 60 2RF Dose Instruction: TAKE 1 TABLET BY MOUTH TWICE A DAY Rx Instructions: TAKE 1 TABLET BY MOUTH TWICE A DAY hydroxyzine pamoate 25 mg capsule See Rx Instructions .ROUTE .COMPLEX Qty: 30 2RF Dose Instruction: TAKE 1 CAPSULE BY MOUTH AT BEDTIME Rx Instructions: TAKE 1 CAPSULE BY MOUTH AT BEDTIME fluoxetine 40 mg capsule See Rx Instructions .ROUTE .COMPLEX Qty: 30 2RF Dose Instruction: TAKE 1 CAPSULE BY MOUTH DAILY Rx Instructions: TAKE 1 CAPSULE BY MOUTH DAILY benzonatate 200 mg capsule 200 mg PO TID PRN (Reason: cough) Qty: 14 0RF valacyclovir 500 mg tablet 500 mg PO DAILY ibuprofen 600 mg tablet 600 mg PO Q6H PRN PRN (Reason: pain) Qty: 20 0RF Mavyret 100-40 mg tablet 3 tab PO DAILY Rx Instructions: must administer with a meal/food (DME) blood pressure monitor Kit See Rx Instructions .ROUTE .MEDSUPPLY Qty: 1 0RF Rx Instructions: Check blood pressure daily for hypertension I10 Symbicort 160-4.5 mcg/actuation HFA aerosol inhaler 2 puff INHALATION BID Qty: 10.2 3RF albuterol sulfate [ProAir HFA] 90 mcg/actuation HFA aerosol inhaler 1 - 2 puff inhalation Q6H PRN (Reason: shortness of breath or wheezing) Qty: 8.5 2RF gabapentin 400 mg capsule See Rx Instructions .ROUTE .COMPLEX Qty: 90 1RF Dose Instruction: take 1 capsule by mouth every 8 hours Rx Instructions: take 1 capsule by mouth every 8 hours; amlodipine 5 mg tablet See Rx Instructions .ROUTE .COMPLEX Qty: 90 2RF Dose Instruction: take 1 tablet by mouth daily Rx Instructions: take 1 tablet by mouth daily Primary Care Provider: Navi Kemp Referrals: Navi Kemp MD [Primary Care Provider] - Disposition Disposition: Home, Self Care Discharge Date/Time: 05/13/23 18:15
[2023-05-13] MEDS: Ketorolac 15 MG/ML Vial IM (17:09)
--- OUTSIDE RECORDS SUMMARY | 2023-05-13 17:21 | XMS RPT_ITS | CCD ---
Author Name Unknown Address [address] [place] [address] Organization [facility] Care Team Providers Care Roof Tiler Name Role Phone ROSA DU MD Primary Care Physician [phone] Unavailable Primary Care Provider Unavailabl e Unavailable Primary Care Provider Unavailabl ROSA Dumont MD Primary Care Unavailab DILCIA Palm DO Attending SAM Jackson MD Attending Unavail ROSA Bruno MD Primary Care Unavailab DILCIA Palm DO Attending Unavailable ROSA DU MD Primary Care Unavailab SAM Rogers MD Attending Unavail ROSA Bruno MD Primary Care Unavailab [facility] Attending ROSA Stafford MD Primary Care Unavailab MYNOR Pineda MD Attending RSOA Stafford MD Primary Care Unavailab SAM Rogers MD Attending Unavail ROSA Bruno MD Primary Care Unavailab JAMES Box MD Attending ROSA Stafford MD Primary Care Unavailab SAM Rogers MD Attending Unavail ROSA Bruno MD Primary Care Unavailab YAQUELIN Howe Attending Unavailable Allergies Allergy Classification Reported Allergen(s) Allergy Type Date of Onset Reaction(s) Facility (19 sources) Naproxen; Translations: [naproxen] Drug Allergy 5 Other: See Comments [facility] (9 sources) OTC skin products [Other] Propensity to adverse reactions 0 Other: See Comments [facility] (1 source) OTHER; Translations: [OTHER] Propensity to adverse reactions (disorder) 0 [facility] Medications Current Medications Medication Drug Class(es) Dates Sig (Normalized) Sig (Original) acetaminophen 500 mg oral tablet (1 source) Start: 09-18-2022 Tylenol Extra Strength 500 mg oral tablet Dose : 1,000 mg = 2 tab(s), Oral, q6h, PRN as needed for pain, 0 Refill(s) Start Date: 09/18/22 Status: Ordered acetaminophen 325 mg / HYDROcodone bitartrate 5 mg oral tablet (6 sources) Opioid Agonist Start: 06-25-2021 End: 06-28-2021 take 1 tablet by mouth every six hours as needed for pain [place] 325- 5 mg oral tablet Dose = 1 tab(s), Oral, q6h, PRN as needed for pain, X 3 day(s), # 12 tab(s), 0 Refill(s), Back pain, 77.3 Start Date: 06/25/21 Stop Date: 06/28/21 Status: Ordered Completed/Discontinued Medications Medication Drug Class(es) Dates Sig (Normalized) Sig (Original) Albuterol (9 sources) beta2-Adrenergic Agonist ALBUTER OL INHALATION Inhale as instructed. 0 Active Problems Active Problems Problem Classification Problem Date Documented Da te Episodic/Chronic Contraceptive and procreative management (8 sources) Patient encounter status; Translations: [Encounter for surveillance of injectable contraceptive] Onset: 09-05-2022 Episodic Diseases of mouth; excluding dental (1 source) Lesion of oral mucosa; Translations: [Other lesions of oral mucosa] Onset: 09-18-2022 Episodic Immunizations and screening for infectious disease (1 source) Requires vaccination; Translations: [Encounter for immunization] Episodic Menstrual disorders (20 sources) Excessive and frequent menstruation; Translations: [Excessive and frequent menstruation with regular cycle] Onset: 05-29-2011 05-29-2011 Chronic Nausea and vomiting (1 source) Vomiting; Translations: [Vomiting, unspecified] Onset: 06-10-2022 Episodic Other connective tissue disease (1 source) Pain of left lower leg; Translations: [Pain in left lower leg] Onset: 09-05-2021 Episodic Other injuries and conditions due to external causes (1 source) Traumatic AND/OR non-traumatic injury; Translations: [Other injury of unspecified body region, initial encounter] Onset: 09-05-2021 Episodic Skin and subcutaneous tissue infections (1 source) Cellulitis; Translations: [Cellulitis, unspecified] Onset: 11-20-2021 Episodic Spondylosis; intervertebral disc disorders; other back problems (3 sources) Backache; Translations: [Dorsalgia, unspecified] Onset: 06-25-2021 Episodic Sprains and strains (1 source) Sprain of ankle; Translations: [Sprain of unspecified ligament of left ankle, initial encounter] Onset: 10-10-2021 Episodic Viral infection (1 source) Genital herpes simplex; 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 infection of urogenital system, unspecified] Chronic Past or Other Problems Problem Classification Problem Date Documented Da te Episodic/Chronic Conditions associated with dizziness or vertigo (9 sources) Dizziness; Translations: [Dizziness and giddiness] Onset: 05-29-2011 05-29-2011 Episodic Urinary tract infections (2 sources) Acute cystitis; Translations: [Acute cystitis with hematuria] Onset: 09-05-2022 Episodic Results Test Name Value Interpretation Reference Range Facil ity Vital Signs Date Time Vital Sign Value Performing Clinician Facility 03-15-2023 15:54-0500 Body weight 89.36 kg Nurse Wstr Work Phone: [facility] 03-15-2023 15:54-0500 Diastolic blood pressure 78 mm[Hg] Nurse Wstr Work Phone: [facility] 03-15-2023 15:54-0500 Systolic blood pressure 128 mm[Hg] Nurse Wstr Work Phone: [facility] 09-18-2022 18:29-0400 Body height 170 cm SAM MACIAS MD [facility] 09-18-2022 18:29-0400 Body temperature 98.78 [degF] SAM MACIAS MD [facility] 09-18-2022 18:29-0400 Body weight 82 kg SAM MACIAS MD [facility] 09-18-2022 18:29-0400 Diastolic Blood Pressure Non-Invasive 89 1 SAM MACIAS MD [facility] 09-18-2022 18:29-0400 Heart rate 76 /min SAM MACIAS MD [facility] 09-18-2022 18:29-0400 Respiratory rate 20 /min SAM MACIAS MD [facility] 09-18-2022 18:29-0400 Systolic Blood Pressure Non-Invasive 141 1 SAM MACIAS MD [facility] 09-05-2022 14:11-0400 Body weight 83.1 kg Yaquelin Ty MODELING INSTRUCTOR.E LEARNING DESIGNER Work Phone: [facility] 09-05-2022 14:11-0400 Diastolic blood pressure 80 mm[Hg] Yaquelin [place] MODELING INSTRUCTOR.E LEARNING DESIGNER Work Phone: [facility] 09-05-2022 14:11-0400 Systolic blood pressure 130 mm[Hg] Yaquelin [place] MODELING INSTRUCTOR.E LEARNING DESIGNER Work Phone: [facility] 07-25-2022 20:55-0400 Diastolic Blood Pressure Non-Invasive 84 1 DILCIA REICHFIELD DO [facility] 07-25-2022 20:55-0400 Heart rate 77 /min DILCIA REICHFIELD DO [facility] 07-25-2022 20:55-0400 Reason For Taking VItal Signs DILCIA REICHFIELD DO [facility] 07-25-2022 20:55-0400 Respiratory rate 16 /min DILCIA REICHFIELD DO [facility] 07-25-2022 20:55-0400 Systolic Blood Pressure Non-Invasive 143 1 DILCIA REICHFIELD DO [facility] 07-25-2022 18:39-0400 Body temperature 98.78 [degF] DILCIA REICHFIELD DO [facility] 07-25-2022 18:39-0400 Diastolic Blood Pressure Non-Invasive 88 1 DILCIA REICHFIELD DO [facility] 07-25-2022 18:39-0400 Heart rate 88 /min DILCIA REICHFIELD DO [facility] 07-25-2022 18:39-0400 Respiratory rate 16 /min DILCIA REICHFIELD DO [facility] 07-25-2022 18:39-0400 Systolic Blood Pressure Non-Invasive 150 1 DILCIA REICHFIELD DO [facility] 06-10-2022 02:48-0500 Blood Pressure Location SAM MACIAS MD [facility] 06-10-2022 02:48-0500 Body temperature 97.7 [degF] SAM MACIAS MD [facility] 06-10-2022 02:48-0500 Diastolic Blood Pressure Non-Invasive 67 1 SAM MACIAS MD [facility] 06-10-2022 02:48-0500 Heart rate 90 /min SAM MACIAS MD [facility] 06-10-2022 02:48-0500 Reason For Taking VItal Signs SAM MACIAS MD [facility] 06-10-2022 02:48-0500 Respiratory rate 20 /min SAM MACIAS MD [facility] 06-10-2022 02:48-0500 Systolic Blood Pressure Non-Invasive 114 1 SAM MACIAS MD [facility] 05-24-2022 11:03-0500 Body weight 79.92 kg Nurse Wstr Work Phone: [facility] 05-24-2022 11:03-0500 Diastolic blood pressure 80 mm[Hg] Nurse Wstr Work Phone: [facility] 05-24-2022 11:03-0500 Systolic blood pressure 118 mm[Hg] Nurse Wstr Work Phone: [facility] 01-29-2022 15:28-0400 Body temperature 98.78 [degF] JAMES LAMB MD [facility] 01-29-2022 15:28-0400 Diastolic blood pressure 78 mm[Hg] JAMES LAMB MD [facility] 01-29-2022 15:28-0400 Heart rate 82 /min JAMES LAMB MD [facility] 01-29-2022 15:28-0400 Respiratory rate 18 /min JAMES LAMB MD [facility] 01-29-2022 15:28-0400 Systolic blood pressure 132 mm[Hg] JAMES LAMB MD [facility] 01-06-2022 15:50-0400 Body weight 75.75 kg Nurse Wstr Work Phone: [facility] 01-06-2022 15:50-0400 Diastolic blood pressure 68 mm[Hg] Nurse Wstr Work Phone: [facility] 01-06-2022 15:50-0400 Systolic blood pressure 110 mm[Hg] Nurse Dillantr Work Phone: [facility] 12-07-2021 18:00-0400 Body temperature 98.24 [degF] MYNOR TINOCO MD [facility] 12-07-2021 18:00-0400 Body weight 72.4 kg MYNOR TINOCO MD [facility] 12-07-2021 18:00-0400 Diastolic blood pressure 88 mm[Hg] MYNOR TINOCO MD [facility] 12-07-2021 18:00-0400 Heart rate 92 /min MYNOR TINOCO MD [facility] 12-07-2021 18:00-0400 Mean blood pressure 101 mm[Hg] MYNOR TINOCO MD [facility] 12-07-2021 18:00-0400 Respiratory rate 16 /min MYNOR TINOCO MD [facility] 12-07-2021 18:00-0400 Systolic blood pressure 128 mm[Hg] MYNOR TINOCO MD [facility] 11-20-2021 10:05-0400 Body temperature 98.42 [degF] SAM MACIAS MD [facility] 11-20-2021 10:05-0400 Diastolic blood pressure 78 mm[Hg] SAM MACIAS MD [facility] 11-20-2021 10:05-0400 Heart rate 70 /min SAM MACIAS MD [facility] 11-20-2021 10:05-0400 Respiratory rate 18 /min SAM MACIAS MD [facility] 11-20-2021 10:05-0400 Systolic blood pressure 135 mm[Hg] SAM MACIAS MD [facility] 10-10-2021 17:29-0400 Body height 167.6 cm SAM MACIAS MD [facility] 10-10-2021 17:29-0400 Body temperature 98.06 [degF] SAM MACIAS MD [facility] 10-10-2021 17:29-0400 Body weight 75 kg SAM MACIAS MD [facility] 10-10-2021 17:29-0400 Diastolic blood pressure 85 mm[Hg] SAM MACIAS MD [facility] 10-10-2021 17:29-0400 Heart rate 85 /min SAM MACIAS MD [facility] 10-10-2021 17:29-0400 Respiratory rate 20 /min SAM MACIAS MD [facility] 10-10-2021 17:29-0400 Systolic blood pressure 132 mm[Hg] SAM MACIAS MD [facility] 09-06-2021 15:03-0400 Body height 166.4 cm Angelina Carlson APRN.E LEARNING DESIGNER Work Phone: [facility] 09-06-2021 15:03-0400 Body weight 76.57 kg Angelina Carlson APRN.E LEARNING DESIGNER Work Phone: [facility] 09-06-2021 15:03-0400 Diastolic blood pressure 66 mm[Hg] Angelina Carlson APRN.E LEARNING DESIGNER Work Phone: [facility] 09-06-2021 15:03-0400 Systolic blood pressure 120 mm[Hg] Angelina Carlson APRN.E LEARNING DESIGNER Work Phone: [facility] 09-05-2021 17:57-0400 Body temperature 98.78 [degF] SHEYLA URRUTIAT [facility] 09-05-2021 17:57-0400 Diastolic blood pressure 85 mm[Hg] SHEYLA URRUTIAT DO [facility] 09-05-2021 17:57-0400 Heart rate 107 /min SHEYLA URRUTIAT DO [facility] 09-05-2021 17:57-0400 Respiratory rate 16 /min SHEYLA URRUTIAT DO [facility] 09-05-2021 17:57-0400 Systolic blood pressure 128 mm[Hg] SHEYLA URRUTIAT DO [facility] 08-23-2021 09:23-0400 Body weight 79.02 kg Nurse Wstr Work Phone: [facility] 08-23-2021 09:23-0400 Diastolic blood pressure 74 mm[Hg] Nurse Wstr Work Phone: [facility] 08-23-2021 09:23-0400 Systolic blood pressure 124 mm[Hg] Nurse Wstr Work Phone: [facility] 06-25-2021 18:30-0500 Body temperature 98.6 [degF] SHEYLA ROSAS DO [facility] 06-25-2021 18:30-0500 Diastolic blood pressure 72 mm[Hg] SHEYAL ROSAS DO [facility] 06-25-2021 18:30-0500 Heart rate 115 /min SHEYLA ROSAS DO [facility] 06-25-2021 18:30-0500 Respiratory rate 18 /min SHEYLA ORSAS DO [facility] 06-25-2021 18:30-0500 Systolic blood pressure 133 mm[Hg] SHEYLA ROSAS DO [facility] Encounters Encounter Date Encounter Type Care Provider Facility Start: 03-15-2023 End: 03-16-2023 ambulatory YAQUELIN YT Facility:[facility] Start: 03-15-2023 End: 03-15-2023 Nursing evaluation of patient and report Nurse Adzing And Boring Machine Feeder [facility] Wstr Work Phone: OB/Gynecology Procedures Date Procedure Procedure Detail Performing Clinician Start: 03-15-2023 Urine test visual color cmprsn mellissa Penny MD Work Phone: Start: 12-13-2022 Ultrasound elastogra phy parenchyma [facility] Provider Start: 09-05-2022 Urine test visual color cmprsn meths Yaquelin Ty MODELING INSTRUCTOR.E LEARNING DESIGNER Work Phone: Start: 05-24-2022 Urine test visual color cmprsn mellissa Penny MD Work Phone: Appendectomy SHEYLA Mcgregor DO Cholecystectomy SHEYLA NATH DO Plan of Treatment Date Care Activity Detail Author Start: 09-06-2031 Urine microalbumin profile DTaP,Tdap,Td Vaccine (7 - Td or Tdap) [facility] Start: 12-11-2024 HPV TESTING HPV TESTING [facility] Start: 12-11-2024 PAP TESTING PAP TESTING [facility] Start: 01-05-2023 Influenza vaccination [facility] Start: 05-07-2022 DEPRESSION ASSESSMENT DEPRESSION ASSESSMENT [facility] Start: 03-05-2022 9vhpv vacc 2/3 dose sched im use HUMAN PAPILLOMAVIRUS 9-VALENT HPV IM Immunization/Injection Routine Expected: 03/05/2022 (Approximate) [facility] Work Phone: Immunizations Immunization Date Immunization Notes Care Provider Loc sarkar 09-06-2021 Human Papillomavirus 9-valent vaccine Angelina Carlson APRN.[facility] Work Phone: [facility] Work Phone: 09-05-2021 tetanus toxoid, redu tadeo diphtheria toxoid, and acellular pertussis vaccine, adsorbed [facility] 10-08-2019 tetanus toxoid, redu tadeo diphtheria toxoid, and acellular pertussis vaccine, adsorbed; Translations: [Boostrix (Tdap)] [facility] 04-21-1991 diphtheria, tetanus toxoids and acellular pertussis vaccine Nurse [facility] Work Phone: [facility] 04-21-1991 DTP-Haemophilus influenzae type b conjugate vaccine Nurse [facility] Work Phone: [facility] 01-14-1991 diphtheria, tetanus toxoids and acellular pertussis vaccine Nurse tr Work Phone: [facility] 01-14-1991 DTP-Haemophilus influenzae type b conjugate vaccine Nurse Wstr Work Phone: [facility] 01-14-1991 trivalent poliovirus vaccine, live, oral Nurse Wstr Work Phone: [facility] 1990 diphtheria, tetanus toxoids and acellular pertussis vaccine Nurse Wstr Work Phone: [facility] 1990 trivalent poliovirus vaccine, live, oral Nurse Wstr Work Phone: [facility] Payers Date Payer Category Payer Unknown [id number] 2020 Medicaid [employer] [id number] 2020-Present [phone] [address] [place] [address] Medicaid [id number] 2020 Medicaid [id number] 2020 Unknown [id number] 1990 Unknown [id number] 1990 Unknown [id number] 1990 Unknown [id number] 1990 Unknown [id number] 1990 Unknown [id number] 1990 Unknown [id number] 1990 Unknown [id number] 1990 Unknown [id number] 1990 Unknown [id number] Social History Date Type Detail Facility Start: 05-06-2019 Heavy tobacco smoker (finding) [facility] Start: 1990 Sex Assigned At Female [facility] Start: 01-06-2022 Tobacco smoking stat [facility] Smokes tobacco daily [facility] History of tobacco use Cigarette Smoker [facility] Work Phone: Start: 06-01-2021 End: 03-15-2023 Alcohol intake Current drinker of alcohol (finding) [facility] Start: 12-12-2019 History SDOH Alcohol Comment Seldom [facility] Start: 08-13-2021 End: 01-04-2022 Exposure to SARS-CoV-2 (event) Not sure [facility] Work Phone: Start: 01-06-2022 End: 12-08-2022 Cigarettes smoked current (pack per day) - Reported 0.3 [facility] Start: 01-06-2022 Tobacco use and exposure Smokeless tobacco non-user [facility] Work Phone: Start: 09-05-2022 End: 12-08-2022 Tobacco use panel [facility] National Score (1-10 0), lower number is lower risk 63 [facility] Start: 11-21-2020 Gender identity Identifies as female gender (finding) [facility] Functional Status Date Assessment Result Facility 09-18-2022 Functional Status Up ad camila [facility] 07-25-2022 Functional Status Standard Safet y ID band on, Allergy Band on, Call device within reach, Bed in low position, Wheels locked, Bedside Cart Locked, Safety level maintained [facility] 07-25-2022 Functional Status [facility] 06-10-2022 Functional Status Room check performed [facility] 01-29-2022 Functional Status ID band on, Allergy Band on, Call device within reach, Bed in low position, Wheels locked, Upper/Half-Length side-rails up, Phone within reach, personal items within reach, Assistive devices within reach, Toileting device within reach, Bedside Cart Locked, Visitor at bedside, Safety level maintained [facility] 12-07-2021 Functional Status ID band on, Allergy Band on, Call device within reach, Bed in low position, Wheels locked, Upper/Half-Length side-rails up, Phone within reach, personal items within reach [facility] 11-20-2021 Functional Status ID band on, Call device within reach, Bed in low position, Wheels locked, Upper/Half-Length side-rails up, Phone within reach, personal items within reach, Assistive devices within reach, Toileting device within reach, Bedside Cart Locked, Visitor at bedside, Safety level maintained [facility] 10-10-2021 Functional Status Resting [facility] 09-05-2021 Functional Status [facility] Mental Status Date Assessment Result Facility 09-18-2022 Mental Status Orientation Oriented x 4 [facility] 07-25-2022 Mental Status Orientation Oriented x 4 [facility] 06-10-2022 Mental Status Oriented x 4 [facility] 01-29-2022 Mental Status Oriented x 4 [facility] 12-07-2021 Mental Status Oriented x 4 [facility] 11-20-2021 Mental Status Oriented x 4 [facility] 10-10-2021 Mental Status Orientation Oriented x 4 [facility] 09-05-2021 Mental Status [facility] Clinical Notes 06-25-2021 to 03-15-2023 Claudia Hargrove RN - 03/15/2023 3:53 PM ESTTelephone Encounter - Pratima Carmona RN - 12/07/2022 2:39 PM EDTPatient InstructionsRockyvangie Zhoumarbin CASTRO - 09/05/2022 2:39 PM EDTPatient Instructions Note Date & Type Note Facility 03-15-2023 Note HNO ID: [id number] Author: Claudia Hargrove RN Service: ? Author Type: ? Type: Progress Notes Filed: 03/15/2023 4:13 PM Note Text: Patient identified by name and date of . Sandie Jones is here for a Depo Provera injection. Patient brought medication. Date last injected: overdue-negative test Depo-Provera, 150 mg, administered IM right upper quadrant gluteus, Lot # [id number], expiration date 02/03/2027. Depo-Provera was given without incident. Date of last menses: Patient's last menstrual period was 11/14/2019 (approximate). Irregular bleeding - No Menses ceased - Yes STD prevention discussed: Yes Patient instructed to return to clinic on 12 weeks. [email or web address] Provider Dr. Penny was present in office at time of injection. Claudia Hargrove RN [facility] 03-15-2023 History of Presen t illness Narrative Patient identified by name and date of . Sandie Jones is here for a Depo Provera injection. Patient brought medication. Date last injected: overdue-negative test Depo-Provera, 150 mg, administered IM right upper quadrant gluteus, Lot # [id number], expiration date 02/03/2027. Depo-Provera was given without incident. Date of last menses: Patient's last menstrual period was 11/14/2019 (approximate). Irregular bleeding - No Menses ceased - Yes STD prevention discussed: Yes Patient instructed to return to clinic on 12 weeks. [email or web address] Provider Dr. Penny was present in office at time of injection. Claudia Hargrove RN documented in this encounter [facility] 12-07-2022 Miscellaneous Notes [place] pharmacy called to request Depo RX. Patient has a nurse visit scheduled tomorrow. CAM order also pending. Requested Prescriptions Pending Prescriptions Disp Refills medroxyPROGESTERone (DEPO-PROVERA) 150 mg/mL 1 mL 3 Sig: Inject 1 mL intramuscularly every 12 weeks. medroxyPROGESTERone 150 mg injection (DEPO-PROVERA) Pratmia Carmona RN documented in this encounter [facility] 09-18-2022 Hospital Discharg e instructions Patient Education 09/18/2022 18:35:20 Dental Pain Dental Pain A crack or cavity in a tooth can cause tooth pain. This is because the crack or cavity exposes the sensitive inner area of the tooth. An infection in the gum or the root of the tooth can cause pain and swelling. The pain is often made worse when you drink hot or cold beverages. It can also be worse when you bite on hard foods. Pain may spread from the tooth to your ear or the area of the jaw on the same side. Home care Follow these tips when caring for yourself at home: Don't have hot and cold foods and drinks. Your tooth may be sensitive to changes in temperature. Use toothpaste made for sensitive teeth. [place] gently up and down instead of sideways. Brushing sideways can wear away root surfaces if they are exposed. If your tooth is chipped or cracked, or if there is a large open cavity, put oil of cloves directly on the tooth to relieve pain. You can buy oil of cloves at drugstores. Some pharmacies carry an qmfi-lnn-rpykgaj toothache kit. This contains a paste that you can put on the exposed tooth to make it less sensitive. Put a cold pack on your jaw over the sore area to help reduce pain. You may use syoi-qeb-vxgjklm medicine to ease pain, unless your doctor prescribed another medicine. If you have chronic liver or kidney disease, talk with your healthcare provider before using acetaminophen or ibuprofen. Also talk with your provider if you ve had a stomach ulcer or GI bleeding. If you have signs of an infection, you will be given an antibiotic. Take it as directed. Follow-up care Follow up with your dentist, or as advised. Your pain may go away with the treatment given today. But only a dentist can fully look at and treat the cause of your pain. This will keep the pain from coming back. Call 911 Call 911 if any of these occur: Unusual drowsiness Headache or stiff neck Weakness or fainting Difficulty swallowing or breathing When to seek medical advice Call your health care provider right away if any of these occur: Your face becomes swollen or red Pain gets worse or spreads to your neck Fever of 100.4 F (38.0 C) or higher, or as directed by your healthcare provider Pus drains from the tooth [id number] [employer]. [address] [place] [address]. All rights reserved. This information is not intended as a substitute for professional medical care. Always follow your healthcare professional's instructions. Follow Up Care 09/18/2022 18:27:29 With:your dentist Address: When:2-4 days [facility] 09-18-2022 Note Discharge Instructions Thank you for allowing [facility] to assist you with your healthcare needs. The following is important discharge information regarding your hospital visit. Diagnosis from Today's Visit Painful mouth Toothache What to Do Next Instructions from Your Care Team No qualifying data available. Post Acute Orders No qualifying data available. You Need to Schedule the Following Appointments Follow Up with your dentist When Within 2-4 days Where: Allergies naproxen Medications Please ask your primary doctor or pharmacist before taking any other medication not listed, including over the counter drugs, herbal medications, vitamins and or supplements as they may interact with your home medications. What How Much When Why Instructions Last Dose Unchanged acetaminophen (Tylenol Extra Strength 500 mg oral tablet) 2 tab(s) by mouth Every 6 hours as needed for as needed for pain Unchanged acyclovir (acyclovir 400 mg oral tablet) Unchanged aloe vera topical (aloe vera topical gel) 1 application Topical Three (3) times a day as needed for Pain Unchanged buPROPion (buPROPion 150 mg/ 24 hours (XL) oral tablet, extended release) Unchanged cariprazine (Vraylar 3 mg oral capsule) Unchanged diphenhydrAMINE (Benadryl) 50 Milligram by mouth Once Unchanged diphenhydrAMINE (diphenhydrAMINE 50 mg oral capsule) 1 cap by mouth Every 6 hours Duration: 5 Days Unchanged famotidine (Pepcid 20 mg oral tablet) 1 tab(s) by mouth Two (2) times a day Duration: 7 Days Unchanged FLUoxetine (FLUoxetine (Eqv-Prozac) 20 mg oral tablet) 1 tab(s) by mouth Once a day Unchanged gabapentin (gabapentin 300 mg oral capsule) Unchanged ibuprofen (Motrin) 800 Milligram by mouth Every 8 hours Unchanged lamoTRIgine (lamoTRIgine 100 mg oral tablet) Unchanged lamoTRIgine (lamoTRIgine 150 mg oral tablet) Unchanged loratadine (loratadine 10 mg oral tablet) Unchanged Misc Medication (AMANTADINE HCL HCL POW) Unchanged OXcarbazepine (OXcarbazepine 600 mg oral tablet) Unchanged OXcarbazepine (Trileptal) by mouth Two (2) times a day Unchanged predniSONE (predniSONE 20 mg oral tablet) 1 tab(s) by mouth Every day Bee sting Unchanged risperiDONE (risperiDONE 2 mg oral tablet) Unchanged risperiDONE (risperiDONE 2 mg oral tablet) Unchanged SUMAtriptan (SUMAtriptan 25 mg oral tablet) Unchanged traMADol (traMADol 50 mg oral tablet) 1 tab(s) by mouth Every 12 hours as needed for for pain Migraine Duration: 3 Days Unchanged traMADol (traMADol 50 mg oral tablet) take 1 tablet by mouth every 6 hours if needed for pain Unchanged traMADol (Ultram 50 mg oral tablet) 1 tab(s) by mouth Every 6 hours as needed for for pain Scar History of cholecystectomy Duration: 3 Days Unchanged valACYclovir (valACYclovir 500 mg oral tablet) Please take this list to your next doctor s visit. Bring all medications you take, including over the counter medications, herbals and other supplements with you to your doctor s visit. Patients and families are reminded to discard old lists and to update any records with all medication providers or retail pharmacies. Education Materials Dental Pain A crack or cavity in a tooth can cause tooth pain. This is because the crack or cavity exposes the sensitive inner area of the tooth. An infection in the gum or the root of the tooth can cause pain and swelling. The pain is often made worse when you drink hot or cold beverages. It can also be worse when you bite on hard foods. Pain may spread from the tooth to your ear or the area of the jaw on the same side. Home care Follow these tips when caring for yourself at home: Don't have hot and cold foods and drinks. Your tooth may be sensitive to changes in temperature. Use toothpaste made for sensitive teeth. [place] gently up and down instead of sideways. Brushing sideways can wear away root surfaces if they are exposed. If your tooth is chipped or cracked, or if there is a large open cavity, put oil of cloves directly on the tooth to relieve pain. You can buy oil of cloves at drugstores. Some pharmacies carry an cjxf-mht-ceasvkx toothache kit. This contains a paste that you can put on the exposed tooth to make it less sensitive. Put a cold pack on your jaw over the sore area to help reduce pain. You may use tqqx-kpx-bjinbfc medicine to ease pain, unless your doctor prescribed another medicine. If you have chronic liver or kidney disease, talk with your healthcare provider before using acetaminophen or ibuprofen. Also talk with your provider if you ve had a stomach ulcer or GI bleeding. If you have signs of an infection, you will be given an antibiotic. Take it as directed. Follow-up care Follow up with your dentist, or as advised. Your pain may go away with the treatment given today. But only a dentist can fully look at and treat the cause of your pain. This will keep the pain from coming back. Call 911 Call 911 if any of these occur: Unusual drowsiness Headache or stiff neck Weakness or fainting Difficulty swallowing or breathing When to seek medical advice Call your health care provider right away if any of these occur: Your face becomes swollen or red Pain gets worse or spreads to your neck Fever of 100.4 F (38.0 C) or higher, or as directed by your healthcare provider Pus drains from the tooth [id number] [employer]. [address] [place] [address], [place] [address]. All rights reserved. This information is not intended as a substitute for professional medical care. Always follow your healthcare professional's instructions. Additional Information VACCINATE! IT SAVES LIVES! Members of the community who have not yet received the COVID-19 vaccine and would like to receive it can visit one of [facility] vaccine clinics. There are many vaccine clinic locations within the [facility]. For locations and available times, please visit [email or web address] It is important to note that some COVID mobile vaccine clinics are held outdoors and may be canceled in rainy or stormy conditions. To learn more about pediatric vaccinations (ages 5-11), we invite you to visit the [employer] webpage. [email or web address] [email or web address] [email or web address] To learn more about the COVID-19 vaccine, we invite you to visit the CDC website for a list of frequently asked questions. https://www.cdc.gov/coronavirus/ 2019-ncov/vaccines/faq.html [facility] Patient [facility] Access Instructions: Stay connected with your healthcare team and access your personal medical information anytime with the [facility] Patient Portal. If you would like a full copy of your medical records please contact the [facility] Medical Records Department Sunday through Sunday between 8a.m. and 4:30p.m. Please follow the directions below to access the portal: 1.Access the email account you provided upon registration to the hospital.2.Look for an invitation email from [facility].3.Open the email and access the invitation link: Accept Invitation to [facility].Fill in the required arteaga to create your account. Sign into [email or web address] with your username and password that you created in the above steps to stay up to date. You can then view a summary of results, a summary of your visits, and the ability to download your summaries to your computer or send the information securely to a physician. Remember that your healthcare information is confidential, so carefully consider who you will allow to register on the [facility] Patient Portal for access to your information. You can also access the [facility] Patient Portal on the [employer] esdras. Simply click on Health Records under [employer] and then click on the [employer] logo. HOW TO SAFELY DISPOSE OF PRESCRIPTION MEDICATIONS Please use one of the following methods to safely dispose of your unused medications. 1.Use a drug disposal kit: the drug disposal pouch allows you to safely discard your old and unused drugs. Ask your nurse to give you one when you are discharged.2.Visit a local take-back location: Many local pharmacies and police departments have programs that collect old and unwanted prescription drugs. Call your local pharmacy or go to http://Augment.[place]/2B8Cb5h to find one close to you.3.Make use of household items: Use cat litter or old coffee grounds to dispose medications if other options are not available. Mix your drugs with these household products, seal them in an airtight container and throw it into the garbage. Call [facility]: [phone] to be sure your drugs can be disposed of in this way. Some medicines may require a different approach.4.Never flush your medications down the toilet. IF YOU HAVE BEEN PRESCRIBED AN OPIOIDS FOR PAIN If you have been prescribed an opioid (such as hydrocodone, oxycodone or morphine), it is critical to understand the possible side effects and risks of opioid pain medications. Even when taken as directed, opioids can have several side effects including: Tolerance, meaning you might need to take more of a medication for the same pain relief. Nausea, vomiting and/or constipation. Sleepiness, dizziness, dry mouth, confusion, depression or itching. Physical dependence, meaning you have withdrawal symptoms when a medication is stopped ? this can develop within a few days. KNOW YOUR RESPONSIBILITIES It is important to know exactly how much and how often to take the opioid pain medications you are prescribed. Never take opioids in higher amounts or more often than prescribed. Do not combine opioids with alcohol or other drugs that cause drowsiness, such as benzodiazepines, also known as benzos, including diazepam and alprazolam, muscle relaxants or sleep aids. Never sell or share prescription opioids. This is illegal. Store opioids in a secure place and out of reach of others (including children, family, friends and visitors). The last page(s) of this document has been signed and retained as a CHART COPY Signatures Patient Education Materials Dental Pain Medication Leaflets My discharge plan and instructions have been reviewed and explained to me and I,SANDIE JONES understand my current condition and have read and understand these discharge instructions. I have received a written copy of the plan/instructions. If I have questions, I am aware that I should contact my doctor. Patient/Physician Assistant Psychiatry Signature: Date/Time: Relationship to Patient: Witness Name/Signature: Date/Time: [facility] 09-05-2022 Note HNO ID: [id number] Author: Rebecca Alexis LPN Service: ? Author Type: ? Type: Progress Notes Filed: 09/05/2022 3:25 PM Note Text: Pt seen in office today for Depo Provera Injection. Patient brought own med. BP 130/80 Wt 183 lb 3.2 oz (83.1kg) LMP 11/14/2019 Vital signs reviewed. Pt advised when to return for next injection and/or yearly pap. Tolerated injection well? YesPatient identified by name and date of . Sandie Jones is here for a Depo Provera injection. Patient brought medication. Date last injected: 05/24/22 Depo-Provera, 150 mg, administered IM left upper quadrant gluteus, Lot # [id number], expiration date 09/03/26. Depo-Provera was given without incident. Date of last menses: Patient's last menstrual period was 11/14/2019 (approximate). Irregular bleeding - No Menses ceased - Yes STD prevention discussed: Yes Patient instructed to return to clinic on 12 weeks+/- 5 days. [email or web address] [email or web address] [email or web address] Provider Yaquelin Crawford CNP was present in office at time of injection. Rebecca Alexis LPN . See medication note for lot#, exp date. [facility] 09-05-2022 Note HNO ID: [id number] Author: Yaquelin Crawford APRN.E LEARNING DESIGNER Service: ? Author Type: Nurse Practitioner Type: Progress Notes Filed: 09/05/2022 3:25 PM Note Text: Sandie Jones is a 31 year old female who presents for problem visit UTI s/s for 1 week(s). HPI: having pressure when done urinating. Just finished antibiotics 1 week ago for a UTI. She also had a UTI at the end of Mar. She has been on antibiotics several times over the past 2 months for a dental infection. She has questions about how long she can be on the Depo, she read something recently about a time limit.- reviewed the guidelines with her. OB History T1 L1 SAB0 IAB0 Ectopic0 Multiple0 Live Births1 [employer] Tech History LMP: 11/14/2019 (Approximate), Drug Induced Amenorrhea Age at Menarche: Age at First : Age at Menopause: [employer] History Comments: Sexual Activity: Yes; Male Contraception: Injection PAST MEDICAL HISTORY Diagnosis Date Acute appendicitis 06/19/14 Asthma Bipolar 1 disorder (HCC) Generalized anxiety disorder Anxiety, Generalized Genital herpes Migraines PAST SURGICAL HISTORY Procedure Laterality Date CHOLECYSTECTOMY Cholecystectomy LAPAROSCOPIC APPENDECTOMY 06/19/14 NEXPLANON INSERTION Left 12/17/2019 PAST SURGICAL HISTORY OF WISDOM TEETH FAMILY HISTORY Problem Relation Age of Onset other (CARIDAD) Mother Heart Father No Known Problems Half-brother other (Multiple sclerosis) Maternal Grandmother Cancer Maternal Grandfather Stomach cancer'. Diabetes Maternal Grandfather Heart Maternal Grandfather Hypertension Maternal Grandfather Prostate Cancer Maternal Grandfather Emphysema Paternal Grandfather Hypertension Maternal Uncle Lipids Maternal Uncle Social History Tobacco Use Smoking status: Every Day Packs/day: 0.25 Years: 3.00 Pack years: 0.75 Types: Cigarettes Smokeless tobacco: Never Vaping Use Vaping Use: current everyday user Substances: Nicotine Substance Use Topics Alcohol use: Yes Comment: Seldom Drug use: No Current Outpatient Medications Medication Sig valACYclovir (VALTREX) 500 mg tablet Take 1 tablet by mouth once daily. buPROPion SR (WELLBUTRIN SR) 100 mg 12 hr tablet Take 100 mg by mouth once daily. FLUoxetine HCl 20 mg tablet Take 20 mg by mouth. traZODone (DESYREL) 50 mg tablet Take 50 mg by mouth. ALBUTEROL INHALATION Inhale as instructed. SYMBICORT 160-4.5 mcg/actuation inhaler gabapentin (NEURONTIN) 300 mg capsule cariprazine (VRAYLAR) 1.5 mg capsule Take 3.5 mg by mouth once daily. Condoms Latex Lubricated (CONDOMS-NATALIE LUBRICATED) Mis Chanda Use one condom before and during every act of intercourse methocarbamol (ROBAXIN) 500 mg tablet Take by mouth. medroxyPROGESTERone (DEPO-PROVERA) 150 mg/mL Inject 1 mL intramuscularly every 12 weeks. nabumetone (RELAFEN) [address] (PROTONIX) 40 mg tablet (Patient not taking: Reported on 08/24/2020 ) oxcarbazepine (TRILEPTAL ORAL) Oral, BID, 0 Refill(s) (Patient not taking: Reported on 03/09/2021) lamoTRIgine (LAMICTAL) 150 mg tablet (Patient not taking: Reported on 09/05/2022) buPROPion XL (WELLBUTRIN XL) 300 mg 24 hr tablet (Patient not taking: Reported on 01/06/2022) risperiDONE (RISPERDAL) 2 mg tablet 0 Refill(s) (Patient not taking: Reported on 08/24/2020) prazosin (MINIPRESS) 1 mg cap (Patient not taking: Reported on 08/24/2020 ) HYDROcodone-acetaminophen (NORCO) 5-325 mg per tablet (Patient not taking: Reported on 03/09/2021) amitriptyline (ELAVIL) 25 mg tablet Take 25 mg by mouth as needed. (Patient not taking: Reported on 03/09/2021 ) SUMAtriptan (IMITREX) 25 mg tablet Take 25 mg by mouth as needed. No current facility-administered medications for this visit. Allergies As of Date: 09/05/2022 Allergen Noted Reaction NAPROXEN 06/26/2014 Other: See Comments OTC SKIN PRODUCTS [OTHER] 03/07/2010 Other: See Comments Fully Assessed 09/05/2022 REVIEW OF SYSTEMS Abdomen: No bloating, early satiety, indigestion, or increased flatulence. No abdominal pain, nausea, vomiting, diarrhea, or constipation. Bladder: No dysuria, gross hematuria, urinary frequency, urinary urgency, or incontinence and +pressure with voiding. Expanded ROS: N/A Allergies and current medication updated:Yes EXAM: Wt 183 lb 3.2 oz (83.1kg) LMP 11/14/2019 GENERAL: pleasant, female in no apparent distress HEENT: Normocephalic, atraumatic, and no lesions CHEST: Normal inspiratory effort NEURO: alert and oriented x3,exam grossly non-focal EXTREMITIES: normal ASSESSMENT/PLAN: 1. Acute cystitis with hematuria - ICD9: 595.0, ICD10: N30.01 (primary diagnosis) - URINE CULTURE - Bactrim BID x 7 days ordered 2. Dysmenorrhea - ICD9: 625.3, ICD10: N94.6 Depo provera injection today 3. Encounter for surveillance of other contraceptive - ICD9: V25.49, ICD10: Z30.49 - HCG QUAL UR B/O- negative Yaquelin Crawford APRN.E LEARNING DESIGNER Medical Decision Making: (more content not included)... [facility] 09-05-2022 Instructions Rebecca Alexis LPN - 09/05/2022 2:40 PM EDT Patient Instructions for Depo-Provera You have chosen a very effective method of control - shots every 3 months of Depo-Provera. control shots are used by more than 6 million women around the world, and Depo-provera is the most commonly used injection or shot. Certain Women should NOT use Depo-Provera Contraception injection. You should not use Depo-Provera if you... Think you might be Have any vaginal bleeding without a known cause Have had cancer of the breast Have had a stroke Have or have had blood clots (phlebitis) in your legs Have problems with your liver or liver disease Are allergic to Depo-Provera Contraception Injection (medroxyprogesterone acetate or any of it's ingredients) If you wish to get , stop control shots several months before you plan to get . The following information may help you use Depo-Provera: 1. Use another form of control for 2 weeks after your first injection. 2. Depo-Provera tends to make a woman's periods less regular and bleeding and spotting between periods is common for the first 9 -12 months. Some women stop having periods completely, usually after 9 months on Depo-Provera. If your pattern of bleeding concerns you, return to the clinic to get a blood test for anemia, or to check the possibility of , or to check for an infection. 3. Return to the clinic every 3 months for another shot.(Between weeks 11-13 from your last injection) 4. Weight gain is common the first 3 years on Depo-Provera. More than 5 pounds the first year, should be reported. 5. Depo-Provera is intended to prevent . It does not protect against transmission of HIV (AIDS) and other sexually transmitted diseases such as chlamydia, genital herpes, genital warts, gonorrhea, hepatitis B, and syphilis. You should continue to use condoms. 6. Report to the clinic if you develop any problems. DANGER SIGNALS - Weight gain of more than 5 pounds - Headaches - Heavy Bleeding - Depression - Frequent urination These instructions have been explained to the patient and she received a copy. 09/05/2022 documented in this encounter [facility] 09-05-2022 History of Presen t illness Narrative Pt seen in office today for Depo Provera Injection. Patient brought own med. BP 130/80 Wt 183 lb 3.2 oz (83.1kg) LMP 11/14/2019 Vital signs reviewed. Pt advised when to return for next injection and/or yearly pap. Tolerated injection well? YesPatient identified by name and date of . Sandie Jones is here for a Depo Provera injection. Patient brought medication. Date last injected: 05/24/22 Depo-Provera, 150 mg, administered IM left upper quadrant gluteus, Lot # [id number], expiration date 09/03/26. Depo-Provera was given without incident. Date of last menses: Patient's last menstrual period was 11/14/2019 (approximate). Irregular bleeding - No Menses ceased - Yes STD prevention discussed: Yes Patient instructed to return to clinic on 12 weeks+/- 5 days. [email or web address] Provider Yaquelin Crawford CNP was present in office at time of injection. Rebecca Alexis LPN . See medication note for lot#, exp date. Sandie Jones is a 31 year old female who presents for problem visit UTI s/s for 1 week(s). HPI: having pressure when done urinating. Just finished antibiotics 1 week ago for a UTI. She also had a UTI at the end of Mar. She has been on antibiotics several times over the past 2 months for a dental infection. She has questions about how long she can be on the Depo, she read something recently about a time limit.- reviewed the guidelines with her. OB History T1 L1 SAB0 IAB0 Ectopic0 Multiple0 Live Births1 [employer] Tech History LMP: 11/14/2019 (Approximate), Drug Induced Amenorrhea Age at Menarche: Age at First : Age at Menopause: [employer] Tech History Comments: Sexual Activity: Yes; Male Contraception: Injection PAST MEDICAL HISTORY Diagnosis Date Acute appendicitis 06/19/14 Asthma Bipolar 1 disorder (HCC) Generalized anxiety disorder Anxiety, Generalized Genital herpes Migraines PAST SURGICAL HISTORY Procedure Laterality Date CHOLECYSTECTOMY Cholecystectomy LAPAROSCOPIC APPENDECTOMY 06/19/14 NEXPLANON INSERTION Left 12/17/2019 PAST SURGICAL HISTORY OF WISDOM TEETH FAMILY HISTORY Problem Relation Age of Onset other (CARIDAD) Mother Heart Father No Known Problems Half-brother other (Multiple sclerosis) Maternal Grandmother Cancer Maternal Grandfather Stomach cancer'. Diabetes Maternal Grandfather Heart Maternal Grandfather Hypertension Maternal Grandfather Prostate Cancer Maternal Grandfather Emphysema Paternal Grandfather Hypertension Maternal Uncle Lipids Maternal Uncle Social History Tobacco Use Smoking status: Every Day Packs/day: 0.25 Years: 3.00 Pack years: 0.75 Types: Cigarettes Smokeless tobacco: Never Vaping Use Vaping Use: current everyday user Substances: Nicotine Substance Use Topics Alcohol use: Yes Comment: Seldom Drug use: No Current Outpatient Medications Medication Sig valACYclovir (VALTREX) 500 mg tablet Take 1 tablet by mouth once daily. buPROPion SR (WELLBUTRIN SR) 100 mg 12 hr tablet Take 100 mg by mouth once daily. FLUoxetine HCl 20 mg tablet Take 20 mg by mouth. traZODone (DESYREL) 50 mg tablet Take 50 mg by mouth. ALBUTEROL INHALATION Inhale as instructed. SYMBICORT 160-4.5 mcg/actuation inhaler gabapentin (NEURONTIN) 300 mg capsule cariprazine (VRAYLAR) 1.5 mg capsule Take 3.5 mg by mouth once daily. Condoms Latex Lubricated (CONDOMS-NATALIE LUBRICATED) Mis Chanda Use one condom before and during every act of intercourse methocarbamol (ROBAXIN) 500 mg tablet Take by mouth. medroxyPROGESTERone (DEPO-PROVERA) 150 mg/mL Inject 1 mL intramuscularly every 12 weeks. nabumetone (RELAFEN) [address] (PROTONIX) 40 mg tablet (Patient not taking: Reported on 08/24/2020 ) oxcarbazepine (TRILEPTAL ORAL) Oral, BID, 0 Refill(s) (Patient not taking: Reported on 03/09/2021) lamoTRIgine (LAMICTAL) 150 mg tablet (Patient not taking: Reported on 09/05/2022) buPROPion XL (WELLBUTRIN XL) 300 mg 24 hr tablet (Patient not taking: Reported on 01/06/2022) risperiDONE (RISPERDAL) 2 mg tablet 0 Refill(s) (Patient not taking: Reported on 08/24/2020) prazosin (MINIPRESS) 1 mg cap (Patient not taking: Reported on 08/24/2020 ) HYDROcodone-acetaminophen (NORCO) 5-325 mg per tablet (Patient not taking: Reported on 03/09/2021) amitriptyline (ELAVIL) 25 mg tablet Take 25 mg by mouth as needed. (Patient not taking: Reported on 03/09/2021 ) SUMAtriptan (IMITREX) 25 mg tablet Take 25 mg by mouth as needed. No current facility-administered medications for this visit. Allergies As of Date: 09/05/2022 Allergen Noted Reaction NAPROXEN 06/26/2014 Other: See Comments OTC SKIN PRODUCTS [OTHER] 03/07/2010 Other: See Comments Fully Assessed 09/05/2022 REVIEW OF SYSTEMS Abdomen: No bloating, early satiety, indigestion, or increased flatulence. No abdominal pain, nausea, vomiting, diarrhea, or constipation. Bladder: No dysuria, gross hematuria, urinary frequency, urinary urgency, or incontinence and +pressure with voiding. Expanded ROS: N/A Allergies and current medication updated:Yes EXAM: Wt 183 lb 3.2 oz (83.1kg) LMP 11/14/2019 GENERAL: pleasant, female in no apparent distress HEENT: Normocephalic, atraumatic, and no lesions CHEST: Normal inspiratory effort NEURO: alert and oriented x3,exam grossly non-focal EXTREMITIES: normal ASSESSMENT/PLAN: 1. Acute cystitis with hematuria - ICD9: 595.0, ICD10: N30.01 (primary diagnosis) - URINE CULTURE - Bactrim BID x 7 days ordered 2. Dysmenorrhea - ICD9: 625.3, ICD10: N94.6 Depo provera injection today 3. Encounter for surveillance of other contraceptive - ICD9: V25.49, ICD10: Z30.49 - HCG QUAL UR B/O- negative Yaquelin Crawford APRN.CNP Medical Decision Making: Problems: Low: Acute, uncomplicated illness or injury Data: Unique test(s) ordered: 2 Risk: Low: Low risk from testing/treatment Moderate: Drug management Medical Decision Making Level: 3 - Low documented in this encounter [facility] 07-25-2022 Hospital Discharg e instructions Patient Education 07/25/2022 19:45:47 Dental Pain Dental Pain A crack or cavity in a tooth can cause tooth pain. This is because the crack or cavity exposes the sensitive inner area of the tooth. An infection in the gum or the root of the tooth can cause pain and swelling. The pain is often made worse when you drink hot or cold beverages. It can also be worse when you bite on hard foods. Pain may spread from the tooth to your ear or the area of the jaw on the same side. Home care Follow these tips when caring for yourself at home: Don't have hot and cold foods and drinks. Your tooth may be sensitive to changes in temperature. Use toothpaste made for sensitive teeth. [place] gently up and down instead of sideways. Brushing sideways can wear away root surfaces if they are exposed. If your tooth is chipped or cracked, or if there is a large open cavity, put oil of cloves directly on the tooth to relieve pain. You can buy oil of cloves at drugstores. Some pharmacies carry an koas-cwb-scltofn toothache kit. This contains a paste that you can put on the exposed tooth to make it less sensitive. Put a cold pack on your jaw over the sore area to help reduce pain. You may use qken-jlo-vcvkqxk medicine to ease pain, unless your doctor prescribed another medicine. If you have chronic liver or kidney disease, talk with your healthcare provider before using acetaminophen or ibuprofen. Also talk with your provider if you ve had a stomach ulcer or GI bleeding. If you have signs of an infection, you will be given an antibiotic. Take it as directed. Follow-up care Follow up with your dentist, or as advised. Your pain may go away with the treatment given today. But only a dentist can fully look at and treat the cause of your pain. This will keep the pain from coming back. Call 911 Call 911 if any of these occur: Unusual drowsiness Headache or stiff neck Weakness or fainting Difficulty swallowing or breathing When to seek medical advice Call your health care provider right away if any of these occur: Your face becomes swollen or red Pain gets worse or spreads to your neck Fever of 100.4 F (38.0 C) or higher, or as directed by your healthcare provider Pus drains from the tooth [id number] [employer]. [address] [place] [address]. All rights reserved. This information is not intended as a substitute for professional medical care. Always follow your healthcare professional's instructions. Follow Up Care 07/25/2022 18:34:57 With:Follow-up with your dentist Address: When:2-4 days Comments:Schedule appointment as soon as possible With:ROSA DU MD Address: [address] [place] [phone]- [phone] When:2-4 days [facility] 07-25-2022 Emergency department Discharge summary Discharge Instructions Thank you for allowing [facility] to assist you with your healthcare needs. The following is important discharge information regarding your hospital visit. Diagnosis from Today's Visit Toothache/injury What to Do Next Instructions from Your Care Team No qualifying data available. Post Acute Orders No qualifying data available. You Need to Schedule the Following Appointments Follow Up with Follow-up with your dentist When Within 2-4 days Why: Schedule appointment as soon as possible Where: Follow Up with ROSA DU MD When Within 2-4 days Where: [address] [place] [address] [place] [address]- [phone] Allergies naproxen Medications Please ask your primary doctor or pharmacist before taking any other medication not listed, including over the counter drugs, herbal medications, vitamins and or supplements as they may interact with your home medications. What How Much When Why Instructions Last Dose Unchanged acyclovir (acyclovir 400 mg oral tablet) Unchanged aloe vera topical (aloe vera topical gel) 1 application Topical Three (3) times a day as needed for Pain Unchanged buPROPion (buPROPion 150 mg/ 24 hours (XL) oral tablet, extended release) Unchanged cariprazine (Vraylar 3 mg oral capsule) Unchanged diphenhydrAMINE (Benadryl) 50 Milligram by mouth Once Unchanged diphenhydrAMINE (diphenhydrAMINE 50 mg oral capsule) 1 cap by mouth Every 6 hours Duration: 5 Days Unchanged famotidine (Pepcid 20 mg oral tablet) 1 tab(s) by mouth Two (2) times a day Duration: 7 Days Unchanged FLUoxetine (FLUoxetine (Eqv-Prozac) 20 mg oral tablet) 1 tab(s) by mouth Once a day Unchanged gabapentin (gabapentin 300 mg oral capsule) Unchanged lamoTRIgine (lamoTRIgine 100 mg oral tablet) Unchanged lamoTRIgine (lamoTRIgine 150 mg oral tablet) Unchanged loratadine (loratadine 10 mg oral tablet) Unchanged Misc Medication (AMANTADINE HCL HCL POW) Unchanged OXcarbazepine (OXcarbazepine 600 mg oral tablet) Unchanged OXcarbazepine (Trileptal) by mouth Two (2) times a day Unchanged predniSONE (predniSONE 20 mg oral tablet) 1 tab(s) by mouth Every day Bee sting Unchanged risperiDONE (risperiDONE 2 mg oral tablet) Unchanged risperiDONE (risperiDONE 2 mg oral tablet) Unchanged SUMAtriptan (SUMAtriptan 25 mg oral tablet) Unchanged traMADol (traMADol 50 mg oral tablet) 1 tab(s) by mouth Every 12 hours as needed for for pain Migraine Duration: 3 Days Unchanged traMADol (traMADol 50 mg oral tablet) take 1 tablet by mouth every 6 hours if needed for pain Unchanged traMADol (Ultram 50 mg oral tablet) 1 tab(s) by mouth Every 6 hours as needed for for pain Scar History of cholecystectomy Duration: 3 Days Unchanged valACYclovir (valACYclovir 500 mg oral tablet) Please take this list to your next doctor s visit. Bring all medications you take, including over the counter medications, herbals and other supplements with you to your doctor s visit. Patients and families are reminded to discard old lists and to update any records with all medication providers or retail pharmacies. Education Materials Dental Pain A crack or cavity in a tooth can cause tooth pain. This is because the crack or cavity exposes the sensitive inner area of the tooth. An infection in the gum or the root of the tooth can cause pain and swelling. The pain is often made worse when you drink hot or cold beverages. It can also be worse when you bite on hard foods. Pain may spread from the tooth to your ear or the area of the jaw on the same side. Home care Follow these tips when caring for yourself at home: Don't have hot and cold foods and drinks. Your tooth may be sensitive to changes in temperature. Use toothpaste made for sensitive teeth. [place] gently up and down instead of sideways. Brushing sideways can wear away root surfaces if they are exposed. If your tooth is chipped or cracked, or if there is a large open cavity, put oil of cloves directly on the tooth to relieve pain. You can buy oil of cloves at drugstores. Some pharmacies carry an ggrv-svf-gopjolb toothache kit. This contains a paste that you can put on the exposed tooth to make it less sensitive. Put a cold pack on your jaw over the sore area to help reduce pain. You may use ycfr-bgb-rvdaajc medicine to ease pain, unless your doctor prescribed another medicine. If you have chronic liver or kidney disease, talk with your healthcare provider before using acetaminophen or ibuprofen. Also talk with your provider if you ve had a stomach ulcer or GI bleeding. If you have signs of an infection, you will be given an antibiotic. Take it as directed. Follow-up care Follow up with your dentist, or as advised. Your pain may go away with the treatment given today. But only a dentist can fully look at and treat the cause of your pain. This will keep the pain from coming back. Call 911 Call 911 if any of these occur: Unusual drowsiness Headache or stiff neck Weakness or fainting Difficulty swallowing or breathing When to seek medical advice Call your health care provider right away if any of these occur: Your face becomes swollen or red Pain gets worse or spreads to your neck Fever of 100.4 F (38.0 C) or higher, or as directed by your healthcare provider Pus drains from the tooth [id number] [employer]. [address] [place] [address]. All rights reserved. This information is not intended as a substitute for professional medical care. Always follow your healthcare professional's instructions. Additional Information VACCINATE! IT SAVES LIVES! Members of the community who have not yet received the COVID-19 vaccine and would like to receive it can visit one of [facility] vaccine clinics. There are many vaccine clinic locations within the [facility]. For locations and available times, please visit [email or web address] It is important to note that some COVID mobile vaccine clinics are held outdoors and may be canceled in rainy or stormy conditions. To learn more about pediatric vaccinations (ages 5-11), we invite you to visit the [facility] webpage. [email or web address] [email or web address]-Cxypytcpenh-Freq [email or web address]-[email or web address] To learn more about the COVID-19 vaccine, we invite you to visit the CDC website for a list of frequently asked questions. https://www.cdc.gov/coronavirus/ 2019-ncov/vaccines/faq.html [facility] Patient [facility] Access Instructions: Stay connected with your healthcare team and access your personal medical information anytime with the [facility] Patient Portal. If you would like a full copy of your medical records please contact the [facility] Medical Records Department Sunday through Sunday between 8a.m. and 4:30p.m. Please follow the directions below to access the portal: 1.Access the email account you provided upon registration to the [facility].2.Look for an invitation email from [facility].3.Open the email and access the invitation link: Accept Invitation to [employer]4.Fill in the required arteaga to create your account. Sign into [email or web address] with your username and password that you created in the above steps to stay up to date. You can then view a summary of results, a summary of your visits, and the ability to download your summaries to your computer or send the information securely to a physician. Remember that your healthcare information is confidential, so carefully consider who you will allow to register on the [employer] Patient Portal for access to your information. You can also access the [employer] Patient Portal on the [employer]. Simply click on Health Records under Health Data and then click on the [employer] logo. HOW TO SAFELY DISPOSE OF PRESCRIPTION MEDICATIONS Please use one of the following methods to safely dispose of your unused medications. 1.Use a drug disposal kit: the drug disposal pouch allows you to safely discard your old and unused drugs. Ask your nurse to give you one when you are discharged.2.Visit a local take-back location: Many local pharmacies and police departments have programs that collect old and unwanted prescription drugs. Call your local pharmacy or go to http://Augment.Silverado/5F3Wz3y to find one close to you.3.Make use of household items: Use cat litter or old coffee grounds to dispose medications if other options are not available. Mix your drugs with these household products, seal them in an airtight container and throw it into the garbage. Call [facility]: [phone] to be sure your drugs can be disposed of in this way. Some medicines may require a different approach.4.Never flush your medications down the toilet. IF YOU HAVE BEEN PRESCRIBED AN OPIOIDS FOR PAIN If you have been prescribed an opioid (such as hydrocodone, oxycodone or morphine), it is critical to understand the possible side effects and risks of opioid pain medications. Even when taken as directed, opioids can have several side effects including: Tolerance, meaning you might need to take more of a medication for the same pain relief. Nausea, vomiting and/or constipation. Sleepiness, dizziness, dry mouth, confusion, depression or itching. Physical dependence, meaning you have withdrawal symptoms when a medication is stopped ? this can develop within a few days. KNOW YOUR RESPONSIBILITIES It is important to know exactly how much and how often to take the opioid pain medications you are prescribed. Never take opioids in higher amounts or more often than prescribed. Do not combine opioids with alcohol or other drugs that cause drowsiness, such as benzodiazepines, also known as benzos, including diazepam and alprazolam, muscle relaxants or sleep aids. Never sell or share prescription opioids. This is illegal. Store opioids in a secure place and out of reach of others (including children, family, friends and visitors). The last page(s) of this document has been signed and retained as a CHART COPY Signatures Patient Education Materials Dental Pain Medication Leaflets My discharge plan and instructions have been reviewed and explained to me and I,JONES SANDIE Yves understand my current condition and have read and understand these discharge instructions. I have received a written copy of the plan/instructions. If I have questions, I am aware that I should contact my doctor. Patient/Physician Assistant Psychiatry Signature: Date/Time: Relationship to Patient: Witness Name/Signature: Date/Time: [facility] 07-25-2022 Emergency department Discharge summary Discharge Instructions Thank you for allowing [facility] to assist you with your healthcare needs. The following is important discharge information regarding your hospital visit. Diagnosis from Today's Visit Toothache/injury What to Do Next Instructions from Your Care Team No qualifying data available. Post Acute Orders No qualifying data available. You Need to Schedule the Following Appointments Follow Up with Follow-up with your dentist When Within 2-4 days Why: Schedule appointment as soon as possible Where: Follow Up with ROSA DU MD When Within 2-4 days Where: [address] [place] [address] [phone] Allergies naproxen Medications Please ask your primary doctor or pharmacist before taking any other medication not listed, including over the counter drugs, herbal medications, vitamins and or supplements as they may interact with your home medications. What How Much When Why Instructions Last Dose Unchanged acyclovir (acyclovir 400 mg oral tablet) Unchanged aloe vera topical (aloe vera topical gel) 1 application Topical Three (3) times a day as needed for Pain Unchanged buPROPion (buPROPion 150 mg/ 24 hours (XL) oral tablet, extended release) Unchanged cariprazine (Vraylar 3 mg oral capsule) Unchanged diphenhydrAMINE (Benadryl) 50 Milligram by mouth Once Unchanged diphenhydrAMINE (diphenhydrAMINE 50 mg oral capsule) 1 cap by mouth Every 6 hours Duration: 5 Days Unchanged famotidine (Pepcid 20 mg oral tablet) 1 tab(s) by mouth Two (2) times a day Duration: 7 Days Unchanged FLUoxetine (FLUoxetine (Eqv-Prozac) 20 mg oral tablet) 1 tab(s) by mouth Once a day Unchanged gabapentin (gabapentin 300 mg oral capsule) Unchanged lamoTRIgine (lamoTRIgine 100 mg oral tablet) Unchanged lamoTRIgine (lamoTRIgine 150 mg oral tablet) Unchanged loratadine (loratadine 10 mg oral tablet) Unchanged Misc Medication (AMANTADINE HCL HCL POW) Unchanged OXcarbazepine (OXcarbazepine 600 mg oral tablet) Unchanged OXcarbazepine (Trileptal) by mouth Two (2) times a day Unchanged predniSONE (predniSONE 20 mg oral tablet) 1 tab(s) by mouth Every day Bee sting Unchanged risperiDONE (risperiDONE 2 mg oral tablet) Unchanged risperiDONE (risperiDONE 2 mg oral tablet) Unchanged SUMAtriptan (SUMAtriptan 25 mg oral tablet) Unchanged traMADol (traMADol 50 mg oral tablet) 1 tab(s) by mouth Every 12 hours as needed for for pain Migraine Duration: 3 Days Unchanged traMADol (traMADol 50 mg oral tablet) take 1 tablet by mouth every 6 hours if needed for pain Unchanged traMADol (Ultram 50 mg oral tablet) 1 tab(s) by mouth Every 6 hours as needed for for pain Scar History of cholecystectomy Duration: 3 Days Unchanged valACYclovir (valACYclovir 500 mg oral tablet) Please take this list to your next doctor s visit. Bring all medications you take, including over the counter medications, herbals and other supplements with you to your doctor s visit. Patients and families are reminded to discard old lists and to update any records with all medication providers or retail pharmacies. Education Materials Dental Pain A crack or cavity in a tooth can cause tooth pain. This is because the crack or cavity exposes the sensitive inner area of the tooth. An infection in the gum or the root of the tooth can cause pain and swelling. The pain is often made worse when you drink hot or cold beverages. It can also be worse when you bite on hard foods. Pain may spread from the tooth to your ear or the area of the jaw on the same side. Home care Follow these tips when caring for yourself at home: Don't have hot and cold foods and drinks. Your tooth may be sensitive to changes in temperature. Use toothpaste made for sensitive teeth. [place] gently up and down instead of sideways. Brushing sideways can wear away root surfaces if they are exposed. If your tooth is chipped or cracked, or if there is a large open cavity, put oil of cloves directly on the tooth to relieve pain. You can buy oil of cloves at drugstores. Some pharmacies carry an jjud-ibg-ziubozi toothache kit. This contains a paste that you can put on the exposed tooth to make it less sensitive. Put a cold pack on your jaw over the sore area to help reduce pain. You may use nshn-zex-bixkrrp medicine to ease pain, unless your doctor prescribed another medicine. If you have chronic liver or kidney disease, talk with your healthcare provider before using acetaminophen or ibuprofen. Also talk with your provider if you ve had a stomach ulcer or GI bleeding. If you have signs of an infection, you will be given an antibiotic. Take it as directed. Follow-up care Follow up with your dentist, or as advised. Your pain may go away with the treatment given today. But only a dentist can fully look at and treat the cause of your pain. This will keep the pain from coming back. Call 911 Call 911 if any of these occur: Unusual drowsiness Headache or stiff neck Weakness or fainting Difficulty swallowing or breathing When to seek medical advice Call your health care provider right away if any of these occur: Your face becomes swollen or red Pain gets worse or spreads to your neck Fever of 100.4 F (38.0 C) or higher, or as directed by your healthcare provider Pus drains from the tooth [id number] [employer]. [address] [place] [address] [place] [address]. All rights reserved. This information is not intended as a substitute for professional medical care. Always follow your healthcare professional's instructions. Additional Information VACCINATE! IT SAVES LIVES! Members of the community who have not yet received the COVID-19 vaccine and would like to receive it can visit one of [facility] vaccine clinics. There are many vaccine clinic locations within the [facility]. For locations and available times, please visit [email or web address] It is important to note that some COVID mobile vaccine clinics are held outdoors and may be canceled in rainy or stormy conditions. To learn more about pediatric vaccinations (ages 5-11), we invite you to visit the [facility] webpage. [email or web address] [email or web address]-Freq [email or web address]-Ivurcfkff.html To learn more about the COVID-19 vaccine, we invite you to visit the CDC website for a list of frequently asked questions. https://www.cdc.gov/coronavirus/ 2019-ncov/vaccines/faq.html [facility] Patient Portal Access Instructions: Stay connected with your healthcare team and access your personal medical information anytime with the [facility] Patient Portal. If you would like a full copy of your medical records please contact the [facility] Medical Records Department Sunday through Sunday between 8a.m. and 4:30p.m. Please follow the directions below to access the portal: 1.Access the email account you provided upon registration to the [facility].2.Look for an invitation email from [facility].3.Open the email and access the invitation link: Accept Invitation to [facility]4.Fill in the required arteaga to create your account. Sign into [email or web address] with your username and password that you created in the above steps to stay up to date. You can then view a summary of results, a summary of your visits, and the ability to download your summaries to your computer or send the information securely to a physician. Remember that your healthcare information is confidential, so carefully consider who you will allow to register on the [facility] Patient Portal for access to your information. You can also access the [facility] Patient Portal on the [employer]. Simply click on Health Records under Health Data and then click on the [employer] logo. HOW TO SAFELY DISPOSE OF PRESCRIPTION MEDICATIONS Please use one of the following methods to safely dispose of your unused medications. 1.Use a drug disposal kit: the drug disposal pouch allows you to safely discard your old and unused drugs. Ask your nurse to give you one when you are discharged.2.Visit a local take-back location: Many local pharmacies and police departments have programs that collect old and unwanted prescription drugs. Call your local pharmacy or go to http://Augment.Silverado/8O9Za2t to find one close to you.3.Make use of household items: Use cat litter or old coffee grounds to dispose medications if other options are not available. Mix your drugs with these household products, seal them in an airtight container and throw it into the garbage. Call [facility]: [phone] to be sure your drugs can be disposed of in this way. Some medicines may require a different approach.4.Never flush your medications down the toilet. IF YOU HAVE BEEN PRESCRIBED AN OPIOIDS FOR PAIN If you have been prescribed an opioid (such as hydrocodone, oxycodone or morphine), it is critical to understand the possible side effects and risks of opioid pain medications. Even when taken as directed, opioids can have several side effects including: Tolerance, meaning you might need to take more of a medication for the same pain relief. Nausea, vomiting and/or constipation. Sleepiness, dizziness, dry mouth, confusion, depression or itching. Physical dependence, meaning you have withdrawal symptoms when a medication is stopped ? this can develop within a few days. KNOW YOUR RESPONSIBILITIES It is important to know exactly how much and how often to take the opioid pain medications you are prescribed. Never take opioids in higher amounts or more often than prescribed. Do not combine opioids with alcohol or other drugs that cause drowsiness, such as benzodiazepines, also known as benzos, including diazepam and alprazolam, muscle relaxants or sleep aids. Never sell or share prescription opioids. This is illegal. Store opioids in a secure place and out of reach of others (including children, family, friends and visitors). The last page(s) of this document has been signed and retained as a CHART COPY Signatures Patient Education Materials Dental Pain Medication Leaflets My discharge plan and instructions have been reviewed and explained to me and I,SANDIE JONES understand my current condition and have read and understand these discharge instructions. I have received a written copy of the plan/instructions. If I have questions, I am aware that I should contact my doctor. Patient/Physician Assistant Psychiatry Signature: Date/Time: Relationship to Patient: Witness Name/Signature: Date/Time: [facility] 06-10-2022 Hospital Discharg e instructions Patient Education 06/10/2022 02:59:17 DIET, Vomiting or Diarrhea [6yr-Adult] Diet for Vomiting or Diarrhea (Adult) Once the vomiting stops, then... During the first 12 to 24 hours follow the diet below: BEVERAGES: Plain water, sport drinks like Gatorade, soft drinks without caffeine; mineral water (plain or flavored); clear fruit juices, decaffeinated tea and coffee. SOUPS: Clear broth, consomm , and bouillon DESSERTS: Plain gelatin (Jell-O), popsicles and fruit juice bars. As you feel better, you may add 6-8 oz of yogurt per day. During the next 24 hours you may add the following to the above: Hot cereal, plain toast, bread, rolls, crackers Plain noodles, rice, mashed potatoes, chicken noodle or rice soup Unsweetened canned fruit (avoid pineapple), bananas Limit fat intake to less than 15 grams per day by avoiding margarine, butter, oils, mayonnaise, sauces, gravies, fried foods, peanut butter, meat, poultry, and fish. Limit fiber; avoid raw or cooked vegetables, fresh fruits (except bananas), and bran cereals. Limit caffeine and chocolate. No spices or seasonings except salt. During the next 24 hours Gradually resume a normal diet, as you feel better and your symptoms lessen. 6135-6863 [employer]. [address] [place] [address], [place] [address]. All rights reserved. This information is not intended as a substitute for professional medical care. Always follow your healthcare professional's instructions. Follow Up Care 06/10/2022 02:45:15 With:ROSA DU MD Address: [address] [place] [phone] When:2-4 days [facility] 06-10-2022 Emergency department Discharge summary Discharge Instructions Thank you for allowing [facility] to assist you with your healthcare needs. The following is important discharge information regarding your hospital visit. Diagnosis from Today's Visit Vomiting Vomiting What to Do Next Instructions from Your Care Team No qualifying data available. Post Acute Orders No qualifying data available. You Need to Schedule the Following Appointments Follow Up with ROSA DU MD When Within 2-4 days Where: [address] [place] [address]- [phone] Allergies naproxen Medications Please ask your primary doctor or pharmacist before taking any other medication not listed, including over the counter drugs, herbal medications, vitamins and or supplements as they may interact with your home medications. What How Much When Why Instructions Last Dose New ondansetron (Zofran 4 mg oral tablet) 1 tab(s) by mouth Every 6 hours as needed for Nausea/Vomiting Vomiting Duration: 5 Days Printed Prescription Unchanged acyclovir (acyclovir 400 mg oral tablet) Unchanged aloe vera topical (aloe vera topical gel) 1 application Topical Three (3) times a day as needed for Pain Unchanged buPROPion (buPROPion 150 mg/ 24 hours (XL) oral tablet, extended release) Unchanged cariprazine (Vraylar 3 mg oral capsule) Unchanged diphenhydrAMINE (Benadryl) 50 Milligram by mouth Once Unchanged diphenhydrAMINE (diphenhydrAMINE 50 mg oral capsule) 1 cap by mouth Every 6 hours Duration: 5 Days Unchanged famotidine (Pepcid 20 mg oral tablet) 1 tab(s) by mouth Two (2) times a day Duration: 7 Days Unchanged FLUoxetine (FLUoxetine (Eqv-Prozac) 20 mg oral tablet) 1 tab(s) by mouth Once a day Unchanged gabapentin (gabapentin 300 mg oral capsule) Unchanged lamoTRIgine (lamoTRIgine 100 mg oral tablet) Unchanged lamoTRIgine (lamoTRIgine 150 mg oral tablet) Unchanged loratadine (loratadine 10 mg oral tablet) Unchanged Misc Medication (AMANTADINE HCL HCL POW) Unchanged OXcarbazepine (OXcarbazepine 600 mg oral tablet) Unchanged OXcarbazepine (Trileptal) by mouth Two (2) times a day Unchanged predniSONE (predniSONE 20 mg oral tablet) 1 tab(s) by mouth Every day Bee sting Unchanged risperiDONE (risperiDONE 2 mg oral tablet) Unchanged risperiDONE (risperiDONE 2 mg oral tablet) Unchanged SUMAtriptan (SUMAtriptan 25 mg oral tablet) Unchanged traMADol (traMADol 50 mg oral tablet) 1 tab(s) by mouth Every 12 hours as needed for for pain Migraine Duration: 3 Days Unchanged traMADol (traMADol 50 mg oral tablet) take 1 tablet by mouth every 6 hours if needed for pain Unchanged traMADol (Ultram 50 mg oral tablet) 1 tab(s) by mouth Every 6 hours as needed for for pain Scar History of cholecystectomy Duration: 3 Days Unchanged valACYclovir (valACYclovir 500 mg oral tablet) Please take this list to your next doctor s visit. Bring all medications you take, including over the counter medications, herbals and other supplements with you to your doctor s visit. Patients and families are reminded to discard old lists and to update any records with all medication providers or retail pharmacies. Medication Leaflets ondansetron (oral) (on MATEO se geoffrey) Jj Gardner Zuplenz What is the most important information I should know about ondansetron? You should not use ondansetron if you are also using apomorphine (Apokyn). What is ondansetron? Ondansetron blocks the actions of chemicals in the body that can trigger nausea and vomiting. Ondansetron is used to prevent nausea and vomiting that may be caused by surgery, cancer chemotherapy, or radiation treatment. Ondansetron may be used for purposes not listed in this medication guide. What should I discuss with my health care provider before taking ondansetron? You should not use ondansetron if: you are also using apomorphine (Apokyn); or you are allergic to ondansetron or similar medicines (dolasetron, granisetron, palonosetron). To make sure ondansetron is safe for you, tell your doctor if you have: liver disease; an electrolyte imbalance (such as low levels of potassium or magnesium in your blood); congestive heart failure, slow heartbeats; a personal or family history of long QT syndrome; or a blockage in your digestive tract (stomach or intestines). Ondansetron is not expected to harm an unborn baby. Tell your doctor if you are . It is not known whether ondansetron passes into breast milk or if it could harm a nursing baby. Tell your doctor if you are breast-feeding a baby. Ondansetron is not approved for use by anyone younger than 4 years old. Ondansetron orally disintegrating tablets may contain phenylalanine. Tell your doctor if you have phenylketonuria (PKU). How should I take ondansetron? Follow all directions on your prescription label. Do not take this medicine in larger or smaller amounts or for longer than recommended. Ondansetron can be taken with or without food. The first dose of ondansetron is usually taken before the start of your surgery, chemotherapy, or radiation treatment. Follow your doctor's dosing instructions very carefully. Take the ondansetron regular tablet with a full glass of water. To take the orally disintegrating tablet (Zofran ODT): Keep the tablet in its blister pack until you are ready to take it. Open the package and peel back the foil. Do not push a tablet through the foil or you may damage the tablet. Use dry hands to remove the tablet and place it in your mouth. Do not swallow the tablet whole. Allow it to dissolve in your mouth without chewing. Swallow several times as the tablet dissolves. To use ondansetron oral soluble film (strip) (Zuplenz): Keep the strip in the foil pouch until you are ready to use the medicine. Using dry hands, remove the strip and place it on your tongue. It will begin to dissolve right away. Do not swallow the strip whole. Allow it to dissolve in your mouth without chewing. Swallow several times after the strip dissolves. If desired, you may drink liquid to help swallow the dissolved strip. Wash your hands after using Zuplenz. Measure liquid medicine with the dosing syringe provided, or with a special dose-measuring spoon or medicine cup. If you do not have a dose-measuring device, ask your pharmacist for one. Store at room temperature away from moisture, heat, and light. Store liquid medicine in an upright position. What happens if I miss a dose? Take the missed dose as soon as you remember. Skip the missed dose if it is almost time for your next scheduled dose. Do not take extra medicine to make up the missed dose. What happens if I overdose? Seek emergency medical attention or call the Poison Help line at . Overdose symptoms may include sudden loss of vision, severe constipation, feeling light-headed, or fainting. What should I avoid while taking ondansetron? Ondansetron may impair your thinking or reactions. Be careful if you drive or do anything that requires you to be alert. What are the possible side effects of ondansetron? Get emergency medical help if you have signs of an allergic reaction: rash, hives; fever, chills, difficult breathing; swelling of your face, lips, tongue, or throat. Call your doctor at once if you have: severe constipation, stomach pain, or bloating; headache with chest pain and severe dizziness, fainting, fast or pounding heartbeats; fast or pounding heartbeats; jaundice (yellowing of the skin or eyes); blurred vision or temporary vision loss (lasting from only a few minutes to several hours); high levels of serotonin in the body--agitation, hallucinations, fever, fast heart rate, overactive reflexes, nausea, vomiting, diarrhea, loss of coordination, fainting. Common side effects may include: diarrhea or constipation; headache; drowsiness; or tired feeling. This is not a complete list of side effects and others may occur. Call your doctor for medical advice about side effects. You may report side effects to FDA at 3-399-OKI-1027. What other drugs will affect ondansetron? Ondansetron can cause a serious heart problem, especially if you use certain medicines at the same time, including antibiotics, antidepressants, heart rhythm medicine, antipsychotic medicines, and medicines to treat cancer, malaria, HIV or AIDS. Tell your doctor about all medicines you use, and those you start or stop using during your treatment with ondansetron. Taking ondansetron while you are using certain other medicines can cause high levels of serotonin to build up in your body, a condition called 'serotonin syndrome,' which can be fatal. Tell your doctor if you also use: medicine to treat depression; medicine to treat a psychiatric disorder; a narcotic (opioid) medication; or medicine to prevent nausea and vomiting. This list is not complete and many other drugs can interact with ondansetron. This includes prescription and bncg-jur-dcjartj medicines, vitamins, and herbal products. Give a list of all your medicines to any healthcare provider who treats you. Where can I get more information? Your pharmacist can provide more information about ondansetron. Remember, keep this and all other medicines out of the reach of children, never share your medicines with others, and use this medication only for the indication prescribed. Every effort has been made to ensure that the information provided by [employer]') is accurate, up-to-date, and complete, but no guarantee is made to that effect. Drug information contained herein may be time sensitive. [employer] information has been compiled for use by healthcare practitioners and consumers in the [place] and therefore [employer] does not warrant that uses outside of the [place] are appropriate, unless specifically indicated otherwise. [employer]'s drug information does not endorse drugs, diagnose patients or recommend therapy. [employer] drug information is an informational resource designed to assist licensed healthcare practitioners in caring for their patients and/or to serve consumers viewing this service as a supplement to, and not a substitute for, the expertise, skill, knowledge and judgment of healthcare practitioners. The absence of a warning for a given drug or drug combination in no way should be construed to indicate that the drug or drug combination is safe, effective or appropriate for any given patient. [employer] does not assume any responsibility for any aspect of healthcare administered with the aid of information [employer] provides. The information contained herein is not intended to cover all possible uses, directions, precautions, warnings, drug interactions, allergic reactions, or adverse effects. If you have questions about the drugs you are taking, check with your doctor, nurse or pharmacist. Copyright 1705-5857 [employer] Version: 13.01. Revision Date: 02/25/2016. Education Materials Diet for Vomiting or Diarrhea (Adult) Once the vomiting stops, then... During the first 12 to 24 hours follow the diet below: BEVERAGES: Plain water, sport drinks like Gatorade, soft drinks without caffeine; mineral water (plain or flavored); clear fruit juices, decaffeinated tea and coffee. SOUPS: Clear broth, consomm , and bouillon DESSERTS: Plain gelatin (Jell-O), popsicles and fruit juice bars. As you feel better, you may add 6-8 oz of yogurt per day. During the next 24 hours you may add the following to the above: Hot cereal, plain toast, bread, rolls, crackers Plain noodles, rice, mashed potatoes, chicken noodle or rice soup Unsweetened canned fruit (avoid pineapple), bananas Limit fat intake to less than 15 grams per day by avoiding margarine, butter, oils, mayonnaise, sauces, gravies, fried foods, peanut butter, meat, poultry, and fish. Limit fiber; avoid raw or cooked vegetables, fresh fruits (except bananas), and bran cereals. Limit caffeine and chocolate. No spices or seasonings except salt. During the next 24 hours Gradually resume a normal diet, as you feel better and your symptoms lessen. 3200-5067 [employer]. [address] [place] [address]. All rights reserved. This information is not intended as a substitute for professional medical care. Always follow your healthcare professional's instructions. Additional Information VACCINATE! IT SAVES LIVES! Members of the community who have not yet received the COVID-19 vaccine and would like to receive it can visit one of [facility] vaccine clinics. There are many vaccine clinic locations within the [facility]. For locations and available times, please visit [email or web address]. It is important to note that some COVID mobile vaccine clinics are held outdoors and may be canceled in rainy or stormy conditions. To learn more about pediatric vaccinations (ages 5-11), we invite you to visit the [facility] webpage. [email or web address] To learn more about the COVID-19 vaccine, we invite you to visit the [facility] website for a list of frequently asked questions. [email or web address] [facility] Patient Portal Access Instructions: Stay connected with your healthcare team and access your personal medical information anytime with the [facility] Patient Portal. If you would like a full copy of your medical records please contact the [facility] Medical Records Department Sunday through Sunday between 8a.m. and 4:30p.m. Please follow the directions below to access the portal: 1.Access the email account you provided upon registration to the [facility].2.Look for an invitation email from [facility].3.Open the email and access the invitation link: Accept Invitation to [facility].Fill in the required arteaga to create your account. Sign into [email or web address] with your username and password that you created in the above steps to stay up to date. You can then view a summary of results, a summary of your visits, and the ability to download your summaries to your computer or send the information securely to a physician. Remember that your healthcare information is confidential, so carefully consider who you will allow to register on the [facility] Patient Portal for access to your information. You can also access the [facility] Patient Portal on the [employer] esdras. Simply click on Health Records under Health Data and then click on the [facility] logo. HOW TO SAFELY DISPOSE OF PRESCRIPTION MEDICATIONS Please use one of the following methods to safely dispose of your unused medications. 1.Use a drug disposal kit: the drug disposal pouch allows you to safely discard your old and unused drugs. Ask your nurse to give you one when you are discharged.2.Visit a local take-back location: Many local pharmacies and police departments have programs that collect old and unwanted prescription drugs. Call your local pharmacy or go to http://bit.[place]/9V9Xo7q to find one close to you.3.Make use of household items: Use cat litter or old coffee grounds to dispose medications if other options are not available. Mix your drugs with these household products, seal them in an airtight container and throw it into the garbage. Call [facility]: [phone] to be sure your drugs can be disposed of in this way. Some medicines may require a different approach.4.Never flush your medications down the toilet. IF YOU HAVE BEEN PRESCRIBED AN OPIOIDS FOR PAIN If you have been prescribed an opioid (such as hydrocodone, oxycodone or morphine), it is critical to understand the possible side effects and risks of opioid pain medications. Even when taken as directed, opioids can have several side effects including: Tolerance, meaning you might need to take more of a medication for the same pain relief. Nausea, vomiting and/or constipation. Sleepiness, dizziness, dry mouth, confusion, depression or itching. Physical dependence, meaning you have withdrawal symptoms when a medication is stopped ? this can develop within a few days. KNOW YOUR RESPONSIBILITIES It is important to know exactly how much and how often to take the opioid pain medications you are prescribed. Never take opioids in higher amounts or more often than prescribed. Do not combine opioids with alcohol or other drugs that cause drowsiness, such as benzodiazepines, also known as benzos, including diazepam and alprazolam, muscle relaxants or sleep aids. Never sell or share prescription opioids. This is illegal. Store opioids in a secure place and out of reach of others (including children, family, friends and visitors). The last page(s) of this document has been signed and retained as a CHART COPY Signatures Patient Education Materials DIET, Vomiting or Diarrhea [6yr-Adult] Medication Leaflets ondansetron (oral) My discharge plan and instructions have been reviewed and explained to me and IROBERT KARA L understand my current condition and have read and understand these discharge instructions. I have received a written copy of the plan/instructions. If I have questions, I am aware that I should contact my doctor. Patient/Physician Assistant Psychiatry Signature: Date/Time: Relationship to Patient: Witness Name/Signature: Date/Time: [facility] 05-24-2022 Note HNO ID: [id number] Author: Nette Hernandez RN Service: ? Author Type: ? Type: Progress Notes Filed: 05/24/2022 11:16 AM Note Text: hc Patient identified by name and date of . Sandie Jones is here for a Depo Provera injection. Patient brought medication. Date last injected: out of range - negative test Depo-Provera, 150 mg, administered IM right upper quadrant gluteus, Lot # [id number], expiration date 01/04/2026. Depo-Provera was given without incident. Date of last menses: Patient's last menstrual period was 11/14/2019 (approximate). Irregular bleeding - No Menses ceased - Yes STD prevention discussed: Yes Patient instructed to return to clinic in 12 weeks. [email or web address] Provider Love Penny MD was present in office at time of injection. Nette Hernandez RN [facility] 05-24-2022 History of Presen t illness Narrative hc Patient identified by name and date of . Sandie Jones is here for a Depo Provera injection. Patient brought medication. Date last injected: out of range - negative test Depo-Provera, 150 mg, administered IM right upper quadrant gluteus, Lot # [id number], expiration date 01/04/2026. Depo-Provera was given without incident. Date of last menses: Patient's last menstrual period was 11/14/2019 (approximate). Irregular bleeding - No Menses ceased - Yes STD prevention discussed: Yes Patient instructed to return to clinic in 12 weeks. [email or web address] [email or web address] [email or web address] Provider Love Penny MD was present in office at time of injection. Nette Hernandez RN documented in this encounter [facility] 01-29-2022 Hospital Discharg e instructions Patient Education 01/29/2022 16:09:13 BACK PAIN w/ SCIATICA Sciatica Sciatica is a condition that causes pain in the lower back and down into the buttock, hip, and leg. Sometimes the leg pain can happen without any back pain. Sciatica happens when a spinal nerve is irritated or has pressure put on it as comes out of the spinal canal in the lower back. This most often happens when a bulge or rupture of a nearby spinal disk presses on the nerve. Sciatica can also be caused by a narrowing of the spinal canal (spinal stenosis) or spasm of the muscle in the buttocks that the sciatic nerve passes through (pyriform muscle). Sciatica is also called lumbar radiculopathy. Sciatica may begin after a sudden twisting or bending force, such as in a car accident. Or it can happen after a simple awkward movement. In either case, muscle spasm often also happens. Muscle spasm makes the pain worse. A health care provider makes a diagnosis of sciatica from your symptoms and a physical exam. Unless you had an injury from a car accident or fall, you usually won t have X-rays taken at this time. This is because the nerves and disks in your back can t be seen on an X-ray. If the provider sees signs of a compressed nerve, you will need to schedule an MRI scan as an outpatient. Signs of a compressed nerve include loss of strength in a leg. Most sciatica gets better with medicine, exercise, and physical therapy. If your symptoms continue after at least 3 months of medical treatment, you may need surgery. Home care Follow these tips when caring for yourself at home: You may need to stay in bed the first few days. But as soon as possible, begin sitting or walking. This will help you avoid problems that come from staying in bed for long periods. When in bed, try to find a position that is comfortable. A firm mattress is best. Try lying flat on your back with pillows under your knees. You can also try lying on your side with your knees bent up toward your chest and a pillow between your knees. Avoid sitting for long periods. This puts more stress on your lower back than standing or walking. Use heat from a hot shower, hot bath, or heating pad to help ease pain. Massage can also help. You can also try using an ice pack. You can make your own ice pack by putting ice cubes in a plastic bag. Wrap the bag in a thin towel. Try both heat and cold to see which works best. Use the method that feels best for 20 minutes several times a day. You may use acetaminophen or ibuprofen to ease pain, unless another pain medicine was prescribed. Note: If you have chronic liver or kidney disease, talk with your health care provider before taking these medicines. Also talk with your provider if you ve had a stomach ulcer or GI bleeding. Use safe lifting methods. Don t lift anything heavier than 15 pounds until all of the pain is gone. Follow-up care Follow up with your health care provider if your symptoms don t start to get better after 1 week. You may need physical therapy or additional tests. If X-rays were taken, they will be looked at by a radiologist. You will be told of any new findings that may affect your care. When to seek medical advice Call your health care provider right away if any of these occur: Pain gets worse even after taking prescribed medicine Weakness or numbness in 1 or both legs or hips Numbness in your groin or genital area You can t control your bowel or bladder Fever Redness or swelling over your back or spine [id number] [employer]. [address] [place] [address]. All rights reserved. This information is not intended as a substitute for professional medical care. Always follow your healthcare professional's instructions. Follow Up Care 01/29/2022 15:23:42 With:Your pain management doctor Address: When:2-4 days With:ROSA DU MD Address: [address] [place] [id number] [phone] When:2-4 days With:Go to emergency room if symptoms worsen Address:Unknown When:2-4 days [facility] 01-29-2022 Emergency department Discharge summary Discharge Instructions Thank you for allowing [facility] to assist you with your healthcare needs. The following is important discharge information regarding your hospital visit. Diagnosis from Today's Visit Sciatica Hip pain-swelling Pain in back What to Do Next Instructions from Your Care Team No qualifying data available. Post Acute Orders No qualifying data available. You Need to Schedule the Following Appointments Follow Up with Your pain management doctor When Within 2-4 days Where: Follow Up with ROSA DU MD When Within 2-4 days Where: [address] [place] [address] [place] [address]- [phone] Follow Up with Go to emergency room if symptoms worsen When Within 2-4 days Allergies naproxen Medications Please ask your primary doctor or pharmacist before taking any other medication not listed, including over the counter drugs, herbal medications, vitamins and or supplements as they may interact with your home medications. What How Much When Why Instructions Last Dose Unchanged acyclovir (acyclovir 400 mg oral tablet) Unchanged aloe vera topical (aloe vera topical gel) 1 application Topical Three (3) times a day as needed for Pain Unchanged buPROPion (buPROPion 150 mg/ 24 hours (XL) oral tablet, extended release) Unchanged cariprazine (Vraylar 3 mg oral capsule) Unchanged diphenhydrAMINE (Benadryl) 50 Milligram by mouth Once Unchanged diphenhydrAMINE (diphenhydrAMINE 50 mg oral capsule) 1 cap by mouth Every 6 hours Duration: 5 Days Unchanged famotidine (Pepcid 20 mg oral tablet) 1 tab(s) by mouth Two (2) times a day Duration: 7 Days Unchanged FLUoxetine (FLUoxetine (Eqv-Prozac) 20 mg oral tablet) 1 tab(s) by mouth Once a day Unchanged gabapentin (gabapentin 300 mg oral capsule) Unchanged lamoTRIgine (lamoTRIgine 100 mg oral tablet) Unchanged lamoTRIgine (lamoTRIgine 150 mg oral tablet) Unchanged loratadine (loratadine 10 mg oral tablet) Unchanged Misc Medication (AMANTADINE HCL HCL POW) Unchanged OXcarbazepine (OXcarbazepine 600 mg oral tablet) Unchanged OXcarbazepine (Trileptal) by mouth Two (2) times a day Unchanged predniSONE (predniSONE 20 mg oral tablet) 1 tab(s) by mouth Every day Bee sting Unchanged risperiDONE (risperiDONE 2 mg oral tablet) Unchanged risperiDONE (risperiDONE 2 mg oral tablet) Unchanged SUMAtriptan (SUMAtriptan 25 mg oral tablet) Unchanged traMADol (traMADol 50 mg oral tablet) 1 tab(s) by mouth Every 12 hours as needed for for pain Migraine Duration: 3 Days Unchanged traMADol (traMADol 50 mg oral tablet) take 1 tablet by mouth every 6 hours if needed for pain Unchanged traMADol (Ultram 50 mg oral tablet) 1 tab(s) by mouth Every 6 hours as needed for for pain Scar History of cholecystectomy Duration: 3 Days Unchanged valACYclovir (valACYclovir 500 mg oral tablet) Please take this list to your next doctor s visit. Bring all medications you take, including over the counter medications, herbals and other supplements with you to your doctor s visit. Patients and families are reminded to discard old lists and to update any records with all medication providers or retail pharmacies. Education Materials Sciatica Sciatica is a condition that causes pain in the lower back and down into the buttock, hip, and leg. Sometimes the leg pain can happen without any back pain. Sciatica happens when a spinal nerve is irritated or has pressure put on it as comes out of the spinal canal in the lower back. This most often happens when a bulge or rupture of a nearby spinal disk presses on the nerve. Sciatica can also be caused by a narrowing of the spinal canal (spinal stenosis) or spasm of the muscle in the buttocks that the sciatic nerve passes through (pyriform muscle). Sciatica is also called lumbar radiculopathy. Sciatica may begin after a sudden twisting or bending force, such as in a car accident. Or it can happen after a simple awkward movement. In either case, muscle spasm often also happens. Muscle spasm makes the pain worse. A health care provider makes a diagnosis of sciatica from your symptoms and a physical exam. Unless you had an injury from a car accident or fall, you usually won t have X-rays taken at this time. This is because the nerves and disks in your back can t be seen on an X-ray. If the provider sees signs of a compressed nerve, you will need to schedule an MRI scan as an outpatient. Signs of a compressed nerve include loss of strength in a leg. Most sciatica gets better with medicine, exercise, and physical therapy. If your symptoms continue after at least 3 months of medical treatment, you may need surgery. Home care Follow these tips when caring for yourself at home: You may need to stay in bed the first few days. But as soon as possible, begin sitting or walking. This will help you avoid problems that come from staying in bed for long periods. When in bed, try to find a position that is comfortable. A firm mattress is best. Try lying flat on your back with pillows under your knees. You can also try lying on your side with your knees bent up toward your chest and a pillow between your knees. Avoid sitting for long periods. This puts more stress on your lower back than standing or walking. Use heat from a hot shower, hot bath, or heating pad to help ease pain. Massage can also help. You can also try using an ice pack. You can make your own ice pack by putting ice cubes in a plastic bag. Wrap the bag in a thin towel. Try both heat and cold to see which works best. Use the method that feels best for 20 minutes several times a day. You may use acetaminophen or ibuprofen to ease pain, unless another pain medicine was prescribed. Note: If you have chronic liver or kidney disease, talk with your health care provider before taking these medicines. Also talk with your provider if you ve had a stomach ulcer or GI bleeding. Use safe lifting methods. Don t lift anything heavier than 15 pounds until all of the pain is gone. Follow-up care Follow up with your health care provider if your symptoms don t start to get better after 1 week. You may need physical therapy or additional tests. If X-rays were taken, they will be looked at by a radiologist. You will be told of any new findings that may affect your care. When to seek medical advice Call your health care provider right away if any of these occur: Pain gets worse even after taking prescribed medicine Weakness or numbness in 1 or both legs or hips Numbness in your groin or genital area You can t control your bowel or bladder Fever Redness or swelling over your back or spine [id number] [employer]. [address] [place] [address], [place] [address]. All rights reserved. This information is not intended as a substitute for professional medical care. Always follow your healthcare professional's instructions. Additional Information VACCINATE! IT SAVES LIVES! Members of the community who have not yet received the COVID-19 vaccine and would like to receive it can visit one of [facility] vaccine clinics. There are many vaccine clinic locations within the [facility]. For locations and available times, please visit [email or web address]. It is important to note that some COVID mobile vaccine clinics are held outdoors and may be canceled in rainy or stormy conditions. To learn more about pediatric vaccinations (ages 5-11), we invite you to visit the [facility] webpage. [email or web address] To learn more about the COVID-19 vaccine, we invite you to visit the [facility] website for a list of frequently asked questions. [email or web address] [facility] Patient Portal Access Instructions: Stay connected with your healthcare team and access your personal medical information anytime with the [facility] Patient Portal. If you would like a full copy of your medical records please contact the [facility] Medical Records Department Sunday through Sunday between 8a.m. and 4:30p.m. Please follow the directions below to access the portal: 1.Access the email account you provided upon registration to the hospital.2.Look for an invitation email from [facility].3.Open the email and access the invitation link: Accept Invitation to [facility].Fill in the required arteaga to create your account. Sign into [email or web address] with your username and password that you created in the above steps to stay up to date. You can then view a summary of results, a summary of your visits, and the ability to download your summaries to your computer or send the information securely to a physician. Remember that your healthcare information is confidential, so carefully consider who you will allow to register on the [facility] Patient Portal for access to your information. You can also access the [facility] Patient Portal on the [employer] esdras. Simply click on Health Records under Health Data and then click on the [employer] logo. HOW TO SAFELY DISPOSE OF PRESCRIPTION MEDICATIONS Please use one of the following methods to safely dispose of your unused medications. 1.Use a drug disposal kit: the drug disposal pouch allows you to safely discard your old and unused drugs. Ask your nurse to give you one when you are discharged.2.Visit a local take-back location: Many local pharmacies and police departments have programs that collect old and unwanted prescription drugs. Call your local pharmacy or go to http://Augment.[place]/3H6Sn4w to find one close to you.3.Make use of household items: Use cat litter or old coffee grounds to dispose medications if other options are not available. Mix your drugs with these household products, seal them in an airtight container and throw it into the garbage. Call [facility]: [phone] to be sure your drugs can be disposed of in this way. Some medicines may require a different approach.4.Never flush your medications down the toilet. IF YOU HAVE BEEN PRESCRIBED AN OPIOIDS FOR PAIN If you have been prescribed an opioid (such as hydrocodone, oxycodone or morphine), it is critical to understand the possible side effects and risks of opioid pain medications. Even when taken as directed, opioids can have several side effects including: Tolerance, meaning you might need to take more of a medication for the same pain relief. Nausea, vomiting and/or constipation. Sleepiness, dizziness, dry mouth, confusion, depression or itching. Physical dependence, meaning you have withdrawal symptoms when a medication is stopped ? this can develop within a few days. KNOW YOUR RESPONSIBILITIES It is important to know exactly how much and how often to take the opioid pain medications you are prescribed. Never take opioids in higher amounts or more often than prescribed. Do not combine opioids with alcohol or other drugs that cause drowsiness, such as benzodiazepines, also known as benzos, including diazepam and alprazolam, muscle relaxants or sleep aids. Never sell or share prescription opioids. This is illegal. Store opioids in a secure place and out of reach of others (including children, family, friends and visitors). The last page(s) of this document has been signed and retained as a CHART COPY Signatures Patient Education Materials BACK PAIN w/ SCIATICA Medication Leaflets My discharge plan and instructions have been reviewed and explained to me and I,SANDIE JONES understand my current condition and have read and understand these discharge instructions. I have received a written copy of the plan/instructions. If I have questions, I am aware that I should contact my doctor. Patient/Physician Assistant Psychiatry Signature: Date/Time: Relationship to Patient: Witness Name/Signature: Date/Time: [facility] 01-06-2022 History of Presen t illness Narrative Patient identified by name and date of . Sandie Jones is here for a Depo Provera injection. Patient brought medication. Date last injected: out of range - negative test Depo-Provera, 150 mg, administered IM left upper quadrant gluteus, Lot # [id number], expiration date 07/2023. Depo-Provera was given without incident. Date of last menses: Patient's last menstrual period was 11/14/2019 (approximate). Irregular bleeding - No Menses ceased - No STD prevention discussed: Yes Patient instructed to return to clinic IN 12 WEEKS. [email or web address] Provider Will Jamison was present in office at time of injection. Radha Eli LPN documented in this encounter [facility] 12-07-2021 Hospital Discharg e instructions Patient Education 12/07/2021 18:19:15 Sciatica Sciatica Sciatica is a condition that causes pain in the lower back that spreads down into the buttock, hip, and leg. Sometimes the leg pain can happen without any back pain. Sciatica happens when a spinal nerve is irritated or has pressure put on it as comes out of the spinal canal in the lower back. This most often happens when a bulge or rupture of a nearby spinal disk presses on the nerve. Sciatica can also be caused by a narrowing of the spinal canal (spinal stenosis) or spasm of the muscle in the buttocks that the sciatic nerve passes through (pyriform muscle). Sciatica is also called lumbar radiculopathy. Sciatica may begin after a sudden twisting or bending force, such as in a car accident. Or it can happen after a simple awkward movement. In either case, muscle spasm often also happens. Muscle spasm makes the pain worse. A healthcare provider makes a diagnosis of sciatica from your symptoms and a physical exam. Unless you had an injury from a car accident or fall, you usually won t have X-rays taken at this time. This is because the nerves and disks in your back can t be seen on an X-ray. If the provider sees signs of a compressed nerve, you will need to schedule an MRI scan as an outpatient. Signs of a compressed nerve include loss of strength in a leg. Most sciatica gets better with medicine, exercise, and physical therapy. If your symptoms continue after at least 3 months of medical treatment, you may need surgery or injections to your lower back. Home care Follow these tips when caring for yourself at home: You may need to stay in bed the first few days. But as soon as possible, begin sitting up or walking. This will help you avoid problems that come from staying in bed for long periods. When in bed, try to find a position that is comfortable. A firm mattress is best. Try lying flat on your back with pillows under your knees. You can also try lying on your side with your knees bent up toward your chest and a pillow between your knees. Avoid sitting for long periods. This puts more stress on your lower back than standing or walking. Use heat from a hot shower, hot bath, or heating pad to help ease pain. Massage can also help. You can also try using an ice pack. You can make your own ice pack by putting ice cubes in a plastic bag. Wrap the bag in a thin towel. Try both heat and cold to see which works best. Use the method that feels best for 20 minutes several times a day. You may use acetaminophen or ibuprofen to ease pain, unless another pain medicine was prescribed. Note: If you have chronic liver or kidney disease, talk with your healthcare provider before taking these medicines. Also talk with your provider if you ve had a stomach ulcer or gastrointestinal bleeding. Use safe lifting methods. Don t lift anything heavier than 15 pounds until all of the pain is gone. Follow-up care Follow up with your healthcare provider, or as advised. You may need physical therapy or additional tests. If X-rays were taken, a radiologist will look at them. You will be told of any new findings that may affect your care. When to seek medical advice Call your healthcare provider right away if any of these occur: Pain gets worse even after taking prescribed medicine Weakness or numbness in 1 or both legs or hips Numbness in your groin or genital area You can t control your bowel or bladder Fever Redness or swelling over your back or spine [id number] [employer]. [address] [place] [address]. All rights reserved. This information is not intended as a substitute for professional medical care. Always follow your healthcare professional's instructions. 12/07/2021 18:19:09 Back Pain (Acute or Chronic) Back Pain (Acute or Chronic) Back pain is one of the most common problems. The good news is that most people feel better in 1 to 2 weeks, and most of the rest in 1 to 2 months. Most people can remain active. People who have pain describe it differently not everyone is the same. The pain can be sharp, stabbing, shooting, aching, cramping or burning. Movement, standing, bending, lifting, sitting, or walking may worsen pain. It can be localized to one spot or area, or it can be more generalized. It can spread or radiate upwards, to the front, or go down your arms or legs (sciatica). It can cause muscle spasm. Most of the time, mechanical problems with the muscles or spine cause the pain. Mechanical problems are usually caused by an injury to the muscles or ligaments. While illness can cause back pain, it is usually not caused by a serious illness. Mechanical problems include: Physical activity such as sports, exercise, work, or normal activity Overexertion, lifting, pushing, pulling incorrectly or too aggressively Sudden twisting, bending, or stretching from an accident, or accidental movement Poor posture Stretching or moving wrong, without noticing pain at the time Poor coordination, lack of regular exercise (check with your doctor about this) Spinal disc disease or arthritis Stress Pain can also be related to , or illness like appendicitis, bladder or kidney infections, pelvic infections, and many other things. Acute back pain usually gets better in 1 to 2 weeks. Back pain related to disk disease, arthritis in the spinal joints or spinal stenosis (narrowing of the spinal canal) can become chronic and last for months or years. Unless you had a physical injury (for example, a car accident or fall) X-rays are usually not needed for the initial evaluation of back pain. If pain continues and does not respond to medical treatment, X-rays and other tests may be needed. Home care Try these home care recommendations: When in bed, try to find a position of comfort. A firm mattress is best. Try lying flat on your back with pillows under your knees. You can also try lying on your side with your knees bent up towards your chest and a pillow between your knees. At first, do not try to stretch out the sore spots. If there is a strain, it is not like the good soreness you get after exercising without an injury. In this case, stretching may make it worse. Don't sit for long periods, as in a long car ride or during other travel. This puts more stress on the lower back than standing or walking. During the first 24 to 72 hours after an acute injury or flare up of chronic back pain, apply an ice pack to the painful area for 20 minutes and then remove it for 20 minutes. Do this over a period of 60 to 90 minutes or several times a day. This will reduce swelling and pain. Wrap the ice pack in a thin towel or plastic to protect your skin. You can start with ice, then switch to heat. Heat (hot shower, hot bath, or heating pad) reduces pain and works well for muscle spasms. Heat can be applied to the painful area for 20 minutes then remove it for 20 minutes. Do this over a period of 60 to 90 minutes or several times a day. Do not sleep on a heating pad. It can lead to skin barcenas or tissue damage. You can alternate ice and heat therapy. Talk with your doctor about the best treatment for your back pain. Therapeutic massage can help relax the back muscles without stretching them. Be aware of safe lifting methods and do not lift anything without stretching first. Medicines Talk to your doctor before using medicine, especially if you have other medical problems or are taking other medicines. You may use wnyd-znc-pwetozx medicine as directed on the bottle to control pain, unless another pain medicine was prescribed. If you have chronic conditions like diabetes, liver or kidney disease, stomach ulcers, or gastrointestinal bleeding, or are taking blood thinners, talk to your doctor before taking any medicine. Be careful if you are given a prescription medicines, narcotics, or medicine for muscle spasms. They can cause drowsiness, affect your coordination, reflexes, and judgement. Do not drive or operate heavy machinery. Follow-up care Follow up with your healthcare provider, or as advised. A radiologist will review any X-rays that were taken. Your provide will notify you of any new findings that may affect your care. Call 911 Call 911 if any of the following occur: Trouble breathing Confusion Very drowsy or trouble awakening Fainting or loss of consciousness Rapid or very slow heart rate Loss of bowel or bladder control When to seek medical advice Call your healthcare provider right away if any of these occur: Pain becomes worse or spreads to your legs Weakness or numbness in one or both legs Numbness in the groin or genital area [id number] [employer] [place] [address]. All rights reserved. This information is not intended as a substitute for professional medical care. Always follow your healthcare professional's instructions. Follow Up Care 12/07/2021 17:44:52 With:ROSA DU MD Address: [address] [place] [phone] When:Within 2 Day(s) Comments:Follow-up with your doctor as scheduled on Sunday.Position of comfort, limit activity as tolerated.Use ice or cool compresses to the painful area for the next 2 days and warm, moist heat thereafter.Continue ibuprofen and Tylenol for pain as needed.Use muscle relaxants (cyclobenzaprine) as prescribed for muscle pain and spasm.Use steroid (prednisone) as prescribed for inflammation.Return to ED if symptoms worsen. [facility] 12-07-2021 Note Discharge Instructions Thank you for allowing [facility] to assist you with your healthcare needs. The following is important discharge information regarding your hospital visit. Diagnosis from Today's Visit Low back pain with left sciatica Back pain chronic Hip pain-swelling left chronic What to Do Next Instructions from Your Care Team No qualifying data available. Post Acute Orders No qualifying data available. You Need to Schedule the Following Appointments Follow Up with ROSA DU MD When In 2 days Why: Follow-up with your doctor as scheduled on Sunday. Position of comfort, limit activity as tolerated. Use ice or cool compresses to the painful area for the next 2 days and warm, moist heat thereafter. Continue ibuprofen and Tylenol for pain as needed. Use muscle relaxants (cyclobenzaprine) as prescribed for muscle pain and spasm. Use steroid (prednisone) as prescribed for inflammation. Return to ED if symptoms worsen. Where: [address] [place] [address] [place] [address] [phone] Allergies naproxen Medications Please ask your primary doctor or pharmacist before taking any other medication not listed, including over the counter drugs, herbal medications, vitamins and or supplements as they may interact with your home medications. What How Much When Why Instructions Last Dose New cyclobenzaprine (cyclobenzaprine 10 mg oral tablet) 1 tab(s) by mouth Three (3) times a day as needed for As needed for muscle pain and spasm Low back pain with left sciatica Duration: 7 Days Printed Prescription Changed predniSONE (predniSONE 20 mg oral tablet) 1 tab(s) by mouth Every day Bee sting Changed predniSONE (predniSONE 20 mg oral tablet) 2 tab(s) by mouth Once a day Duration: 7 Days Printed Prescription Unchanged acyclovir (acyclovir 400 mg oral tablet) Unchanged aloe vera topical (aloe vera topical gel) 1 application Topical Three (3) times a day as needed for Pain Unchanged buPROPion (buPROPion 150 mg/ 24 hours (XL) oral tablet, extended release) Unchanged cariprazine (Vraylar 3 mg oral capsule) Unchanged diphenhydrAMINE (Benadryl) 50 Milligram by mouth Once Unchanged diphenhydrAMINE (diphenhydrAMINE 50 mg oral capsule) 1 cap by mouth Every 6 hours Duration: 5 Days Unchanged famotidine (Pepcid 20 mg oral tablet) 1 tab(s) by mouth Two (2) times a day Duration: 7 Days Unchanged FLUoxetine (FLUoxetine (Eqv-Prozac) 20 mg oral tablet) 1 tab(s) by mouth Once a day Unchanged gabapentin (gabapentin 300 mg oral capsule) Unchanged lamoTRIgine (lamoTRIgine 100 mg oral tablet) Unchanged lamoTRIgine (lamoTRIgine 150 mg oral tablet) Unchanged loratadine (loratadine 10 mg oral tablet) Unchanged OXcarbazepine (OXcarbazepine 600 mg oral tablet) Unchanged OXcarbazepine (Trileptal) by mouth Two (2) times a day Unchanged risperiDONE (risperiDONE 2 mg oral tablet) Unchanged risperiDONE (risperiDONE 2 mg oral tablet) Unchanged SUMAtriptan (SUMAtriptan 25 mg oral tablet) Unchanged traMADol (traMADol 50 mg oral tablet) 1 tab(s) by mouth Every 12 hours as needed for for pain Migraine Duration: 3 Days Unchanged traMADol (traMADol 50 mg oral tablet) take 1 tablet by mouth every 6 hours if needed for pain Unchanged traMADol (Ultram 50 mg oral tablet) 1 tab(s) by mouth Every 6 hours as needed for for pain Scar History of cholecystectomy Duration: 3 Days Unchanged valACYclovir (valACYclovir 500 mg oral tablet) Please take this list to your next doctor s visit. Bring all medications you take, including over the counter medications, herbals and other supplements with you to your doctor s visit. Patients and families are reminded to discard old lists and to update any records with all medication providers or retail pharmacies. Education Materials Sciatica Sciatica is a condition that causes pain in the lower back that spreads down into the buttock, hip, and leg. Sometimes the leg pain can happen without any back pain. Sciatica happens when a spinal nerve is irritated or has pressure put on it as comes out of the spinal canal in the lower back. This most often happens when a bulge or rupture of a nearby spinal disk presses on the nerve. Sciatica can also be caused by a narrowing of the spinal canal (spinal stenosis) or spasm of the muscle in the buttocks that the sciatic nerve passes through (pyriform muscle). Sciatica is also called lumbar radiculopathy. Sciatica may begin after a sudden twisting or bending force, such as in a car accident. Or it can happen after a simple awkward movement. In either case, muscle spasm often also happens. Muscle spasm makes the pain worse. A healthcare provider makes a diagnosis of sciatica from your symptoms and a physical exam. Unless you had an injury from a car accident or fall, you usually won t have X-rays taken at this time. This is because the nerves and disks in your back can t be seen on an X-ray. If the provider sees signs of a compressed nerve, you will need to schedule an MRI scan as an outpatient. Signs of a compressed nerve include loss of strength in a leg. Most sciatica gets better with medicine, exercise, and physical therapy. If your symptoms continue after at least 3 months of medical treatment, you may need surgery or injections to your lower back. Home care Follow these tips when caring for yourself at home: You may need to stay in bed the first few days. But as soon as possible, begin sitting up or walking. This will help you avoid problems that come from staying in bed for long periods. When in bed, try to find a position that is comfortable. A firm mattress is best. Try lying flat on your back with pillows under your knees. You can also try lying on your side with your knees bent up toward your chest and a pillow between your knees. Avoid sitting for long periods. This puts more stress on your lower back than standing or walking. Use heat from a hot shower, hot bath, or heating pad to help ease pain. Massage can also help. You can also try using an ice pack. You can make your own ice pack by putting ice cubes in a plastic bag. Wrap the bag in a thin towel. Try both heat and cold to see which works best. Use the method that feels best for 20 minutes several times a day. You may use acetaminophen or ibuprofen to ease pain, unless another pain medicine was prescribed. Note: If you have chronic liver or kidney disease, talk with your healthcare provider before taking these medicines. Also talk with your provider if you ve had a stomach ulcer or gastrointestinal bleeding. Use safe lifting methods. Don t lift anything heavier than 15 pounds until all of the pain is gone. Follow-up care Follow up with your healthcare provider, or as advised. You may need physical therapy or additional tests. If X-rays were taken, a radiologist will look at them. You will be told of any new findings that may affect your care. When to seek medical advice Call your healthcare provider right away if any of these occur: Pain gets worse even after taking prescribed medicine Weakness or numbness in 1 or both legs or hips Numbness in your groin or genital area You can t control your bowel or bladder Fever Redness or swelling over your back or spine [id number] [employer]. [address] [place] [address], [place] [address]. All rights reserved. This information is not intended as a substitute for professional medical care. Always follow your healthcare professional's instructions. Back Pain (Acute or Chronic) Back pain is one of the most common problems. The good news is that most people feel better in 1 to 2 weeks, and most of the rest in 1 to 2 months. Most people can remain active. People who have pain describe it differently not everyone is the same. The pain can be sharp, stabbing, shooting, aching, cramping or burning. Movement, standing, bending, lifting, sitting, or walking may worsen pain. It can be localized to one spot or area, or it can be more generalized. It can spread or radiate upwards, to the front, or go down your arms or legs (sciatica). It can cause muscle spasm. Most of the time, mechanical problems with the muscles or spine cause the pain. Mechanical problems are usually caused by an injury to the muscles or ligaments. While illness can cause back pain, it is usually not caused by a serious illness. Mechanical problems include: Physical activity such as sports, exercise, work, or normal activity Overexertion, lifting, pushing, pulling incorrectly or too aggressively Sudden twisting, bending, or stretching from an accident, or accidental movement Poor posture Stretching or moving wrong, without noticing pain at the time Poor coordination, lack of regular exercise (check with your doctor about this) Spinal disc disease or arthritis Stress Pain can also be related to , or illness like appendicitis, bladder or kidney infections, pelvic infections, and many other things. Acute back pain usually gets better in 1 to 2 weeks. Back pain related to disk disease, arthritis in the spinal joints or spinal stenosis (narrowing of the spinal canal) can become chronic and last for months or years. Unless you had a physical injury (for example, a car accident or fall) X-rays are usually not needed for the initial evaluation of back pain. If pain continues and does not respond to medical treatment, X-rays and other tests may be needed. Home care Try these home care recommendations: When in bed, try to find a position of comfort. A firm mattress is best. Try lying flat on your back with pillows under your knees. You can also try lying on your side with your knees bent up towards your chest and a pillow between your knees. At first, do not try to stretch out the sore spots. If there is a strain, it is not like the good soreness you get after exercising without an injury. In this case, stretching may make it worse. Don't sit for long periods, as in a long car ride or during other travel. This puts more stress on the lower back than standing or walking. During the first 24 to 72 hours after an acute injury or flare up of chronic back pain, apply an ice pack to the painful area for 20 minutes and then remove it for 20 minutes. Do this over a period of 60 to 90 minutes or several times a day. This will reduce swelling and pain. Wrap the ice pack in a thin towel or plastic to protect your skin. You can start with ice, then switch to heat. Heat (hot shower, hot bath, or heating pad) reduces pain and works well for muscle spasms. Heat can be applied to the painful area for 20 minutes then remove it for 20 minutes. Do this over a period of 60 to 90 minutes or several times a day. Do not sleep on a heating pad. It can lead to skin barcenas or tissue damage. You can alternate ice and heat therapy. Talk with your doctor about the best treatment for your back pain. Therapeutic massage can help relax the back muscles without stretching them. Be aware of safe lifting methods and do not lift anything without stretching first. Medicines Talk to your doctor before using medicine, especially if you have other medical problems or are taking other medicines. You may use [id number]-cqn-[id number] medicine as directed on the bottle to control pain, unless another pain medicine was prescribed. If you have chronic conditions like diabetes, liver or kidney disease, stomach ulcers, or gastrointestinal bleeding, or are taking blood thinners, talk to your doctor before taking any medicine. Be careful if you are given a prescription medicines, narcotics, or medicine for muscle spasms. They can cause drowsiness, affect your coordination, reflexes, and judgement. Do not drive or operate heavy machinery. Follow-up care Follow up with your healthcare provider, or as advised. A radiologist will review any X-rays that were taken. Your provide will notify you of any new findings that may affect your care. Call 911 Call 911 if any of the following occur: Trouble breathing Confusion Very drowsy or trouble awakening Fainting or loss of consciousness Rapid or very slow heart rate Loss of bowel or bladder control When to seek medical advice Call your healthcare provider right away if any of these occur: Pain becomes worse or spreads to your legs Weakness or numbness in one or both legs Numbness in the groin or genital area [id number] [employer]. [address] [place] [address], [place] [address]. All rights reserved. This information is not intended as a substitute for professional medical care. Always follow your healthcare professional's instructions. Additional Information VACCINATE! IT SAVES LIVES! Members of the community who have not yet received the COVID-19 vaccine and would like to receive it can visit one of [facility] vaccine clinics. There are many vaccine clinic locations within the [facility]. For locations and available times, please visit [email or web address]. It is important to note that some COVID mobile vaccine clinics are held outdoors and may be canceled in rainy or stormy conditions. To learn more about pediatric vaccinations (ages 5-11), we invite you to visit the [facility] webpage. [email or web address] To learn more about the COVID-19 vaccine, we invite you to visit the [facility] website for a list of frequently asked questions. [email or web address] [facility] Patient Portal Access Instructions: Stay connected with your healthcare team and access your personal medical information anytime with the [facility] Patient Portal. If you would like a full copy of your medical records please contact the [facility] Medical Records Department Sunday through Sunday between 8a.m. and 4:30p.m. Please follow the directions below to access the portal: 1.Access the email account you provided upon registration to the [facility].2.Look for an invitation email from [facility].3.Open the email and access the invitation link: Accept Invitation to [facility]4.Fill in the required arteaga to create your account. Sign into [email or web address] with your username and password that you created in the above steps to stay up to date. You can then view a summary of results, a summary of your visits, and the ability to download your summaries to your computer or send the information securely to a physician. Remember that your healthcare information is confidential, so carefully consider who you will allow to register on the [employer] Patient Portal for access to your information. You can also access the [employer] [facility] Patient Portal on the [employer] esdras. Simply click on Health Records under [employer] and then click on the [employer] logo. HOW TO SAFELY DISPOSE OF PRESCRIPTION MEDICATIONS Please use one of the following methods to safely dispose of your unused medications. 1.Use a drug disposal kit: the drug disposal pouch allows you to safely discard your old and unused drugs. Ask your nurse to give you one when you are discharged.2.Visit a local take-back location: Many local pharmacies and police departments have programs that collect old and unwanted prescription drugs. Call your local pharmacy or go to http://[email or web address].[place]/[email or web address] to find one close to you.3.Make use of household items: Use cat litter or old coffee grounds to dispose medications if other options are not available. Mix your drugs with these household products, seal them in an airtight container and throw it into the garbage. Call [facility]: [phone] to be sure your drugs can be disposed of in this way. Some medicines may require a different approach.4.Never flush your medications down the toilet. IF YOU HAVE BEEN PRESCRIBED AN OPIOIDS FOR PAIN If you have been prescribed an opioid (such as hydrocodone, oxycodone or morphine), it is critical to understand the possible side effects and risks of opioid pain medications. Even when taken as directed, opioids can have several side effects including: Tolerance, meaning you might need to take more of a medication for the same pain relief. Nausea, vomiting and/or constipation. Sleepiness, dizziness, dry mouth, confusion, depression or itching. Physical dependence, meaning you have withdrawal symptoms when a medication is stopped ? this can develop within a few days. KNOW YOUR RESPONSIBILITIES It is important to know exactly how much and how often to take the opioid pain medications you are prescribed. Never take opioids in higher amounts or more often than prescribed. Do not combine opioids with alcohol or other drugs that cause drowsiness, such as benzodiazepines, also known as benzos, including diazepam and alprazolam, muscle relaxants or sleep aids. Never sell or share prescription opioids. This is illegal. Store opioids in a secure place and out of reach of others (including children, family, friends and visitors). The last page(s) of this document has been signed and retained as a CHART COPY Signatures Patient Education Materials Sciatica Back Pain (Acute or Chronic) Medication Leaflets My discharge plan and instructions have been reviewed and explained to me and I,ROBERT SANDIE Yves understand my current condition and have read and understand these discharge instructions. I have received a written copy of the plan/instructions. If I have questions, I am aware that I should contact my doctor. Patient/Physician Assistant Psychiatry Signature: Date/Time: Relationship to Patient: Witness Name/Signature: Date/Time: [facility] 11-20-2021 Hospital Discharg e instructions Patient Education 11/20/2021 10:10:59 Cellulitis Skin Infection Cellulitis Cellulitis is an infection of the deep layers of skin. A break in the skin, such as a cut or scratch, can let bacteria under the skin. If the bacteria get to deep layers of the skin, it can be serious. If not treated, cellulitis can get into the bloodstream and lymph nodes. The infection can then spread throughout the body. This causes serious illness. Cellulitis causes the affected skin to become red, swollen, warm, and sore. The reddened areas have a visible border. An open sore may leak fluid (pus). You may have a fever, chills, and pain. Cellulitis is treated with antibiotics taken for 7 to 10 days. An open sore may be cleaned and covered with cool wet gauze. Symptoms should get better 1 to 2 days after treatment is started. Make sure to take all the antibiotics for the full number of days until they are gone. Keep taking the medicine even if your symptoms go away. Home care Follow these tips: Limit the use of the part of your body with cellulitis. If the infection is on your leg, keep your leg raised while sitting. This will help to reduce swelling. Take all of the antibiotic medicine exactly as directed until it is gone. Do not miss any doses, especially during the first 7 days. Don t stop taking the medicine when your symptoms get better. Keep the affected area clean and dry. Wash your hands with soap and warm water before and after touching your skin. Anyone else who touches your skin should also wash his or her hands. Don't share towels. Follow-up care Follow up with your healthcare provider, or as advised. If your infection does not go away on the first antibiotic, your healthcare provider will prescribe a different one. When to seek medical advice Call your healthcare provider right away if any of these occur: Red areas that spread Swelling or pain that gets worse Fluid leaking from the skin (pus) Fever higher of 100.4 F (38.0 C) or higher after 2 days on antibiotics [id number] [employer]. [address] [place] [address]. All rights reserved. This information is not intended as a substitute for professional medical care. Always follow your healthcare professional's instructions. Follow Up Care 11/20/2021 10:01:24 With:ROSA DU MD Address: [address] [place] [address] [place] [address] [phone] When:2-4 days [facility] 11-20-2021 Emergency department Discharge summary Discharge Instructions Thank you for allowing [facility] to assist you with your healthcare needs. The following is important discharge information regarding your hospital visit. Diagnosis from Today's Visit Cellulitis Skin problem What to Do Next Instructions from Your Care Team No qualifying data available. Post Acute Orders No qualifying data available. You Need to Schedule the Following Appointments Follow Up with ROSA DU MD When Within 2-4 days Where: [facility] [place] [address] [phone] Allergies naproxen Medications Please ask your primary doctor or pharmacist before taking any other medication not listed, including over the counter drugs, herbal medications, vitamins and or supplements as they may interact with your home medications. What How Much When Why Instructions Last Dose New doxycycline (doxycycline hyclate 100 mg oral capsule) 1 cap by mouth Two (2) times a day Cellulitis Duration: 10 Days Printed Prescription Unchanged acyclovir (acyclovir 400 mg oral tablet) Unchanged buPROPion (buPROPion 150 mg/ 24 hours (XL) oral tablet, extended release) Unchanged cariprazine (Vraylar 3 mg oral capsule) Unchanged diphenhydrAMINE (Benadryl) 50 Milligram by mouth Once Unchanged diphenhydrAMINE (diphenhydrAMINE 50 mg oral capsule) 1 cap by mouth Every 6 hours Duration: 5 Days Unchanged famotidine (Pepcid 20 mg oral tablet) 1 tab(s) by mouth Two (2) times a day Duration: 7 Days Unchanged FLUoxetine (FLUoxetine (Eqv-Prozac) 20 mg oral tablet) 1 tab(s) by mouth Once a day Unchanged gabapentin (gabapentin 300 mg oral capsule) Unchanged lamoTRIgine (lamoTRIgine 100 mg oral tablet) Unchanged lamoTRIgine (lamoTRIgine 150 mg oral tablet) Unchanged loratadine (loratadine 10 mg oral tablet) Unchanged OXcarbazepine (OXcarbazepine 600 mg oral tablet) Unchanged OXcarbazepine (Trileptal) by mouth Two (2) times a day Unchanged predniSONE (predniSONE 20 mg oral tablet) 1 tab(s) by mouth Every day Bee sting Unchanged risperiDONE (risperiDONE 2 mg oral tablet) Unchanged risperiDONE (risperiDONE 2 mg oral tablet) Unchanged SUMAtriptan (SUMAtriptan 25 mg oral tablet) Unchanged traMADol (traMADol 50 mg oral tablet) 1 tab(s) by mouth Every 12 hours as needed for for pain Migraine Duration: 3 Days Unchanged traMADol (traMADol 50 mg oral tablet) take 1 tablet by mouth every 6 hours if needed for pain Unchanged traMADol (Ultram 50 mg oral tablet) 1 tab(s) by mouth Every 6 hours as needed for for pain Scar History of cholecystectomy Duration: 3 Days Unchanged valACYclovir (valACYclovir 500 mg oral tablet) Please take this list to your next doctor s visit. Bring all medications you take, including over the counter medications, herbals and other supplements with you to your doctor s visit. Patients and families are reminded to discard old lists and to update any records with all medication providers or retail pharmacies. Medication Leaflets doxycycline (oral/injection) (MAGGIE dejesus) Acticlate, Adoxa, Alodox, Avidoxy, Doryx, Mondoxyne NL, Monodox, Morgidox, Okebo, Oracea, Oraxyl, Targadox, Vibramycin What is the most important information I should know about doxycycline? You should not take this medicine if you are allergic to any tetracycline antibiotic. Children younger than 8 years old should use doxycycline only in cases of severe or life-threatening conditions. This medicine can cause permanent yellowing or graying of the teeth in children Using doxycycline during could harm the unborn baby or cause permanent tooth discoloration later in the baby's life. What is doxycycline? Doxycycline is a tetracycline antibiotic that Doxycycline is used to treat many different bacterial infections, such as acne, urinary tract infections, intestinal infections, eye infections, gonorrhea, chlamydia, periodontitis (gum disease), and others. Doxycycline is also used to treat blemishes, bumps, and acne-like lesions caused by rosacea. Doxycycline will not treat facial redness caused by rosacea. Some forms of doxycycline are used to prevent malaria, to treat anthrax, or to treat infections caused by mites, ticks, or lice. Doxycycline may also be used for purposes not listed in this medication guide. What should I discuss with my healthcare provider before taking doxycycline? You should not take this medicine if you are allergic to doxycycline or other tetracycline antibiotics such as demeclocycline, minocycline, tetracycline, or tigecycline. Tell your doctor if you have ever had: liver disease; kidney disease; asthma or sulfite allergy; increased pressure inside your skull; or if you also take isotretinoin, seizure medicine, or a blood thinner such as warfarin (Coumadin). If you are using doxycycline to treat gonorrhea, your doctor may test you to make sure you do not also have syphilis, another sexually transmitted disease. Taking this medicine during may affect tooth and bone development in the unborn baby. Taking doxycycline during the last half of can cause permanent tooth discoloration later in the baby's life. Tell your doctor if you are or if you become . Doxycycline can make control pills less effective. Ask your doctor about using a non-hormonal control (condom, diaphragm with spermicide) to prevent . Doxycycline can pass into breast milk and may affect bone and tooth development in a nursing . Do not breastfeed while you are taking doxycycline. Doxycycline can cause permanent yellowing or graying of the teeth in children younger than 8 years old. Children should use doxycycline only in cases of severe or life-threatening conditions such as anthrax or [place] spotted fever. The benefit of treating a serious condition may outweigh any risks to the child's tooth development. How should I take doxycycline? Follow all directions on your prescription label and read all medication guides or instruction sheets. Use the medicine exactly as directed. Take doxycycline with a full glass of water. Drink plenty of liquids while you are taking doxycycline. Read and carefully follow any Instructions for Use provided with your medicine. Ask your doctor or pharmacist if you do not understand these instructions. Most brands of doxycyline may be taken with food or milk if the medicine upsets your stomach. Different brands of doxycycline may have different instructions about taking them with or without food. Take Oracea on an empty stomach, at least 1 hour before or 2 hours after a meal. You may need to split a doxycycline tablet to get the correct dose. Follow your doctor's instructions. Swallow a delayed-release capsule or tablet whole. Do not crush, chew, break, or open it. Measure liquid medicine with the dosing syringe provided, or with a special dose-measuring spoon or medicine cup. If you do not have a dose-measuring device, ask your pharmacist for one. If you take doxycycline to prevent malaria: Start taking the medicine 1 or 2 days before entering an area where malaria is common. Continue taking the medicine every day during your stay and for at least 4 weeks after you leave the area. Doxycycline is usually given by injection only if you are unable to take the medicine by mouth. A healthcare provider will give you this injection as an infusion into a vein. Use this medicine for the full prescribed length of time, even if your symptoms quickly improve. Skipping doses can increase your risk of infection that is resistant to medication. Doxycycline will not treat a viral infection such as the flu or a common cold. Store at room temperature away from moisture, heat, and light. Throw away any unused medicine after the expiration date on the label has passed. Using doxycycline can cause damage to your kidneys. What happens if I miss a dose? Take the medicine as soon as you can, but skip the missed dose if it is almost time for your next dose. Do not take two doses at one time. What happens if I overdose? Seek emergency medical attention or call the Poison Help line at . What should I avoid while taking doxycycline? Do not take iron supplements, multivitamins, calcium supplements, antacids, or laxatives within 2 hours before or after taking doxycycline. Avoid taking any other antibiotics with doxycycline unless your doctor has told you to. Doxycycline could make you sunburn more easily. Avoid sunlight or tanning beds. Wear protective clothing and use sunscreen (SPF 30 or higher) when you are outdoors. Antibiotic medicines can cause diarrhea, which may be a sign of a new infection. If you have diarrhea that is watery or bloody, call your doctor. Do not use anti-diarrhea medicine unless your doctor tells you to. What are the possible side effects of doxycycline? Get emergency medical help if you have signs of an allergic reaction (hives, difficult breathing, swelling in your face or throat) or a severe skin reaction (fever, sore throat, burning in your eyes, skin pain, red or purple skin rash that spreads and causes blistering and peeling). Seek medical treatment if you have a serious drug reaction that can affect many parts of your body. Symptoms may include: skin rash, fever, swollen glands, flu-like symptoms, muscle aches, severe weakness, unusual bruising, or yellowing of your skin or eyes. This reaction may occur several weeks after you began using doxycycline. Call your doctor at once if you have: severe stomach pain, diarrhea that is watery or bloody; throat irritation, trouble swallowing; chest pain, irregular heart rhythm, feeling short of breath; little or no urination; low white blood cell counts--fever, chills, swollen glands, body aches, weakness, pale skin, easy bruising or bleeding; increased pressure inside the skull--severe headaches, ringing in your ears, dizziness, nausea, vision problems, pain behind your eyes; or signs of liver or pancreas problems--loss of appetite, upper stomach pain (that may spread to your back), tiredness, nausea or vomiting, fast heart rate, dark urine, jaundice (yellowing of the skin or eyes). Common side effects may include: nausea, vomiting, upset stomach, loss of appetite; mild diarrhea; skin rash or itching; darkened skin color; or vaginal itching or discharge. This is not a complete list of side effects and others may occur. Call your doctor for medical advice about side effects. You may report side effects to FDA at 0-166-WRB-3290. What other drugs will affect doxycycline? Sometimes it is not safe to use certain medications at the same time. Some drugs can affect your blood levels of other drugs you take, which may increase side effects or make the medications less effective. Other drugs may affect doxycycline, including prescription and aann-mpv-kazabrq medicines, vitamins, and herbal products. Tell your doctor about all your current medicines and any medicine you start or stop using. Where can I get more information? Your pharmacist can provide more information about doxycycline. Remember, keep this and all other medicines out of the reach of children, never share your medicines with others, and use this medication only for the indication prescribed. Every effort has been made to ensure that the information provided by [employer]. ('[employer]') is accurate, up-to-date, and complete, but no guarantee is made to that effect. Drug information contained herein may be time sensitive. [employer] information has been compiled for use by healthcare practitioners and consumers in the [place] and therefore [employer] does not warrant that uses outside of the [place] are appropriate, unless specifically indicated otherwise. [employer] drug information does not endorse drugs, diagnose patients or recommend therapy. [employer] drug information is an informational resource designed to assist licensed healthcare practitioners in caring for their patients and/or to serve consumers viewing this service as a supplement to, and not a substitute for, the expertise, skill, knowledge and judgment of healthcare practitioners. The absence of a warning for a given drug or drug combination in no way should be construed to indicate that the drug or drug combination is safe, effective or appropriate for any given patient. [employer] does not assume any responsibility for any aspect of healthcare administered with the aid of information [employer] provides. The information contained herein is not intended to cover all possible uses, directions, precautions, warnings, drug interactions, allergic reactions, or adverse effects. If you have questions about the drugs you are taking, check with your doctor, nurse or pharmacist. Copyright 2923-1246 [employer]. Version: 21.04. Revision Date: 03/10/2020. Education Materials Cellulitis Cellulitis is an infection of the deep layers of skin. A break in the skin, such as a cut or scratch, can let bacteria under the skin. If the bacteria get to deep layers of the skin, it can be serious. If not treated, cellulitis can get into the bloodstream and lymph nodes. The infection can then spread throughout the body. This causes serious illness. Cellulitis causes the affected skin to become red, swollen, warm, and sore. The reddened areas have a visible border. An open sore may leak fluid (pus). You may have a fever, chills, and pain. Cellulitis is treated with antibiotics taken for 7 to 10 days. An open sore may be cleaned and covered with cool wet gauze. Symptoms should get better 1 to 2 days after treatment is started. Make sure to take all the antibiotics for the full number of days until they are gone. Keep taking the medicine even if your symptoms go away. Home care Follow these tips: Limit the use of the part of your body with cellulitis. If the infection is on your leg, keep your leg raised while sitting. This will help to reduce swelling. Take all of the antibiotic medicine exactly as directed until it is gone. Do not miss any doses, especially during the first 7 days. Don t stop taking the medicine when your symptoms get better. Keep the affected area clean and dry. Wash your hands with soap and warm water before and after touching your skin. Anyone else who touches your skin should also wash his or her hands. Don't share towels. Follow-up care Follow up with your healthcare provider, or as advised. If your infection does not go away on the first antibiotic, your healthcare provider will prescribe a different one. When to seek medical advice Call your healthcare provider right away if any of these occur: Red areas that spread Swelling or pain that gets worse Fluid leaking from the skin (pus) Fever higher of 100.4 F (38.0 C) or higher after 2 days on antibiotics 8623-8798 [employer]. [address] [place] [address], [place] [id number]. All rights reserved. This information is not intended as a substitute for professional medical care. Always follow your healthcare professional's instructions. Additional Information VACCINATE! IT SAVES LIVES! Members of the community who have not yet received the COVID-19 vaccine and would like to receive it can visit one of [facility] vaccine clinics. There are many vaccine clinic locations within the [facility]. For locations and available times, please visit [email or web address]. It is important to note that some COVID mobile vaccine clinics are held outdoors and may be canceled in rainy or stormy conditions. To learn more about pediatric vaccinations (ages 5-11), we invite you to visit the [facility] webpage. [email or web address] To learn more about the COVID-19 vaccine, we invite you to visit the [facility] website for a list of frequently asked questions. [email or web address] [facility] Patient Portal Access Instructions: Stay connected with your healthcare team and access your personal medical information anytime with the [facility] Patient Portal. If you would like a full copy of your medical records please contact the [facility] Medical Records Department Sunday through Sunday between 8a.m. and 4:30p.m. Please follow the directions below to access the portal: 1.Access the email account you provided upon registration to the [facility].2.Look for an invitation email from [facility].3.Open the email and access the invitation link: Accept Invitation to [facility].Fill in the required arteaga to create your account. Sign into [email or web address] with your username and password that you created in the above steps to stay up to date. You can then view a summary of results, a summary of your visits, and the ability to download your summaries to your computer or send the information securely to a physician. Remember that your healthcare information is confidential, so carefully consider who you will allow to register on the [facility] Patient Portal for access to your information. You can also access the [employer] Patient Portal on the [employer]. Simply click on Health Records under Health Data and then click on the [employer] logo. HOW TO SAFELY DISPOSE OF PRESCRIPTION MEDICATIONS Please use one of the following methods to safely dispose of your unused medications. 1.Use a drug disposal kit: the drug disposal pouch allows you to safely discard your old and unused drugs. Ask your nurse to give you one when you are discharged.2.Visit a local take-back location: Many local pharmacies and police departments have programs that collect old and unwanted prescription drugs. Call your local pharmacy or go to http://Augment.Silverado/3N0Ju7t to find one close to you.3.Make use of household items: Use cat litter or old coffee grounds to dispose medications if other options are not available. Mix your drugs with these household products, seal them in an airtight container and throw it into the garbage. Call [facility]: [phone] to be sure your drugs can be disposed of in this way. Some medicines may require a different approach.4.Never flush your medications down the toilet. IF YOU HAVE BEEN PRESCRIBED AN OPIOIDS FOR PAIN If you have been prescribed an opioid (such as hydrocodone, oxycodone or morphine), it is critical to understand the possible side effects and risks of opioid pain medications. Even when taken as directed, opioids can have several side effects including: Tolerance, meaning you might need to take more of a medication for the same pain relief. Nausea, vomiting and/or constipation. Sleepiness, dizziness, dry mouth, confusion, depression or itching. Physical dependence, meaning you have withdrawal symptoms when a medication is stopped ? this can develop within a few days. KNOW YOUR RESPONSIBILITIES It is important to know exactly how much and how often to take the opioid pain medications you are prescribed. Never take opioids in higher amounts or more often than prescribed. Do not combine opioids with alcohol or other drugs that cause drowsiness, such as benzodiazepines, also known as benzos, including diazepam and alprazolam, muscle relaxants or sleep aids. Never sell or share prescription opioids. This is illegal. Store opioids in a secure place and out of reach of others (including children, family, friends and visitors). The last page(s) of this document has been signed and retained as a CHART COPY Signatures Patient Education Materials Cellulitis Skin Infection Medication Leaflets doxycycline (oral/injection) My discharge plan and instructions have been reviewed and explained to me and I,SANDIE JONES understand my current condition and have read and understand these discharge instructions. I have received a written copy of the plan/instructions. If I have questions, I am aware that I should contact my doctor. Patient/Physician Assistant Psychiatry Signature: Date/Time: Relationship to Patient: Witness Name/Signature: Date/Time: [facility] 10-10-2021 Hospital Discharg e instructions Patient Education 10/10/2021 18:09:10 Ankle Sprain (Adult) Ankle Sprain (Adult) An ankle sprain is a stretching or tearing of the ligaments that hold the ankle joint together. There are no broken bones. An ankle sprain is a common injury for both children and adults. It happens when the ankle turns, twists, or rolls in an awkward way. This can be caused by a sports injury. Or it can happen from doing something as simple as stepping on an uneven surface. Ligaments are made of tough connective tissue. Normally, ligaments stretch a certain amount and then go back to their normal place. A sprain happens when a ligament is forced to stretch more than the normal amount. A severe sprain can actually tear the ligaments. If you have a severe sprain, you may have felt or heard something like a pop when you were injured. Ankle sprains are given a grade depending on whether they are mild, moderate, or severe: Grade 1 sprain. A mild sprain with minor stretching and damage to the ligament. Grade 2 sprain. A moderate sprain where the ligament is partly torn. Grade 3 sprain. The most severe kind of sprain. The ligament is completely torn. Most sprains take about 4 to 6 weeks to heal. A severe sprain can take several months to recover. Your healthcare provider may order X-rays to be sure you don t have a fracture, or broken bone. The injured area will feel sore. Swelling and pain may make it hard to walk. You may need crutches if walking is painful. Or your provider may have you use a cast boot or air splint. This will depend on the grade of ankle sprain that you have. Home care For a Grade 1 sprain, use RICE (rest, ice, compression, and elevation): Rest your ankle. Don t walk on it. Ice should be used right away to help control swelling. Place an ice pack over the injured area for 20 minutes. Do this every 3 to 6 hours for the first 24 to 48 hours. Keep using ice packs to ease pain and swelling as needed. To make an ice pack, put ice cubes in a plastic bag that seals at the top. Wrap the bag in a clean, thin towel or cloth. Never put ice or an ice pack directly on the skin. The ice pack can be put right on the cast, bandage, or splint. As the ice melts, be careful that the cast, bandage, or splint doesn t get wet. If you have a boot, open it to apply an ice pack, unless told otherwise by your provider. Compression devices help to control swelling. They also keep the ankle from moving and support your injured ankle. These devices include dressings, bandages, and wraps. Elevate or raise your ankle above the level of your heart when sitting or lying down. This is very important for the first 48 hours. Follow the RICE guidelines for a Grade 2 sprain. This type of sprain will take longer to heal. Your provider may have you wear a splint, cast, or brace to keep your ankle from moving. If you have a Grade 3 sprain, you are at risk for long-term ankle instability. In rare cases, surgery may be needed. Your provider may have you wear a short leg cast or a walking boot for 2 to 3 weeks. After 48 hours, it may be helpful to apply heat for 20 minutes several times a day. You can do this with a heating pad or warm compress. Or you may want to go back and forth between using ice and heat. Never apply heat directly to the skin. Always wrap the heating pad or warm compress in a clean, thin towel or cloth. You may use silf-hkp-nmfrvun pain medicine (NSAIDS or nonsteroidal anti-inflammatory drugs) to control pain, unless another pain medicine was prescribed. Talk with your provider before using these medicines if you have chronic liver or kidney disease, or have ever had a stomach ulcer or gastrointestinal bleeding. Follow any rehabilitation exercises your provider gives you. These can help you be more flexible and improve your balance and coordination. This is helpful in preventing long-term ankle problems. Prevention To help prevent ankle sprains, it s important to have good strength, balance, and flexibility. Be sure to: Always warm up before you exercise or do something very active Be careful when walking or running on uneven or cracked surfaces Wear shoes that are in good condition and fit well Listen to your body s signals to slow down when you are in pain or tired Follow-up care Any X-rays you had today don t show any broken bones, breaks, or fractures. Sometimes fractures don t show up on the first X-ray. Bruises and sprains can sometimes hurt as much as a fracture. These injuries can take time to heal completely. If your symptoms don t get better or they get worse, talk with your healthcare provider. You may need a repeat X-ray. Follow up with your healthcare provider, or as advised. Check for any warning signs listed below. When to seek medical advice Call your healthcare provider right away if any of these occur: Fever of 100.4 F (38 C) or higher, or as directed by your healthcare provider Chills The injury doesn t seem to be healing The swelling comes back The cast or splint has a bad smell The plaster cast or splint gets wet or soft The fiberglass cast or splint gets wet and does not dry for 24 hours The pain or swelling increases, or redness appears Your toes become cold, blue, numb, or tingly The skin is discolored (looks blue, purple, or mahoney), has blisters, or is irritated You re-injure your ankle [id number] [employer]. [address] [place] [id number]. All rights reserved. This information is not intended as a substitute for professional medical care. Always follow your healthcare professional's instructions. Follow Up Care 10/10/2021 17:17:00 With:ROSA DU MD Address: [address] [place] [address] [place] [address] [phone] When:2-4 days [facility] 09-06-2021 History of Presen t illness Narrative Schedule for Gardasil injections: Routine schedule is 0,2, and 6 months Minimum intervals: 4 weeks between doses 1 and 2 12 weeks between doses 2 and 3 4 day 'princess period' can be applied Gardasil Questions: Please note: if patient is overdue for a yearly exam, they will need to have yearly scheduled within the next 6 months at the time Gardasil is given. Was your last yearly exam more than 18 months ago? No. Are you ? No. Do you have an elevated temp? No. See immun/inj tab for lot #, expiration date. Angelina Carlson CNP present in office at time of administration Rebecca Alexis LPN Sandie is a 30 year old who presents for an annual gynecologic exam without complaints. Menses: no menses - Depo Provera, occasional spotting Contraception: Depo Provera HPV vaccine: No Last Pap: 12/17/2019 normal HPV: 12/16/2019 negative History of abnormal pap: No Last mammogram: never Sexually active: Yes History of STDS: HSV Patient concerns for STD exposure: No. Time with current partner: 3 years Pain with intercourse: No Postcoital bleeding: No OB History T1 L1 SAB0 IAB0 Ectopic0 Multiple0 Live Births1 [employer] History LMP: 11/14/2019 (Approximate), Drug Induced Amenorrhea Age at Menarche: Age at First : Age at Menopause: [employer] History Comments: Sexual Activity: Yes; No partner data on record Contraception: No contraception data on record PAST MEDICAL HISTORY Diagnosis Date Acute appendicitis 06/19/14 Asthma Bipolar 1 disorder (HCC) Generalized anxiety disorder Anxiety, Generalized Genital herpes Migraines PAST SURGICAL HISTORY Procedure Laterality Date CHOLECYSTECTOMY Cholecystectomy LAPAROSCOPIC APPENDECTOMY 06/19/14 NEXPLANON INSERTION Left 12/17/2019 PAST SURGICAL HISTORY OF WISDOM TEETH FAMILY HISTORY Problem Relation Age of Onset other (CARIDAD) Mother Heart Father No Known Problems Half-brother other (Multiple sclerosis) Maternal Grandmother Cancer Maternal Grandfather Stomach cancer'. Diabetes Maternal Grandfather Heart Maternal Grandfather Hypertension Maternal Grandfather Prostate Cancer Maternal Grandfather Emphysema Paternal Grandfather Hypertension Maternal Uncle Lipids Maternal Uncle SOCIAL HISTORY Social History Tobacco Use Smoking status: Current Every Day Smoker Packs/day: 0.25 Years: 3.00 Pack years: 0.75 Types: Cigarettes Smokeless tobacco: Never Used Vaping Use Vaping Use: current everyday user Substances: Nicotine Substance Use Topics Alcohol use: Yes Comment: Seldom Drug use: No REVIEW OF SYSTEMS Abdomen: No abdominal pain, nausea, vomiting, diarrhea, or constipation. No bloating, early satiety, indigestion, or increased flatulence. Bladder: No dysuria, gross hematuria, urinary frequency, urinary urgency, or incontinence. Breast: No breast lumps, nipple d/c, overlying skin changes, redness or skin retraction. Allergies and current medication updated:Yes EXAM: BP 120/66 Ht 5' 5.5 (1.66m) Wt 168 lb 12.8 oz (76.6kg) LMP 11/14/2019 BMI 27.65 kg/(m^2). GENERAL: pleasant, female in no apparent distress HEENT: Normocephalic, atraumatic, mucus membranes moist and no lesions NECK: Supple, full range of motion, no adenopathy and thyroid normal DERMATOLOGY: Normal, without lesions, non-icteric and non-hirsute BREAST: soft, non-tender, symmetric, no dominant mass, normal nipple-areolar complex, no lymphadenopathy and no nipple discharge CHEST: Normal inspiratory effort ABDOMEN: soft, non-tender and no masses PELVIC: external genitalia normal, normal Bartholin's glands, urethra, [place]'s glands, no vulvar lesions, no cervical lesions, good vaginal support, physiologic discharge present, normal appearing perineal body and perianal region BIMANUAL: uterus normal size, shape and consistency, no adnexal masses and non-tender RECTOVAGINAL: deferred. NEURO: alert and oriented x3,exam grossly non-focal EXTREMITIES: normal ASSESSMENT/PLAN: 1) Health maintenance: Pap/HPV up to date. Mammogram starting age 40. Nutrition, exercise and routine health maintenance exams reviewed. Smoking cessation: Benefits of smoking cessation reviewed. Patient encouraged to avoid smoking. HPV vaccine: will receive first in series today 2) Contraception: Depo Provera. Contraceptive options reviewed and information provided. 3) STD screening: Declined STD check. 4) Follow up one year or sooner as needed Angelina Carlson APRN.ANNE documented in this encounter [facility] 09-06-2021 Instructions Angelina Carlson APRN.ANNE - 09/06/2021 3:18 PM EDT Gardasil Gardasil is a vaccine to protect against Human Papillomavirus (HPV) types 6, 11, 16, 18, 31,33,45, 52, 58. These viruses cause cancer and precancerous lesions on the cervix (opening between vagina and uterus), in the vagina and on the vulva (skin around the outside of the vagina) as well as genital warts. The vaccine cannot cause these diseases and cannot treat them if already present. Gardasil works best if given before contact with HPV. Most people are exposed to HPV soon after starting sexual activity. The vaccine is recommended between the ages of 9 and 45. Gardasil does not protect against all strains of HPV. Women who receive the vaccine still need to have regular pelvic exams and cervical cancer screening with the pap smear. You should ask your doctor if Gardasil is right for you if you have a weakened immune system, a bleeding disorder, plan to become soon or have a current illness causing fever. Gardasil is not recommended for women. You should be sure your doctor is aware of any allergies you have and all medications and herbal supplements you take. Gardasil is given to those ages 9-14 in 2 doses at 0 and 8 months. In ages 15-45, three injections are given at 0,2,6 months. Common side effects include pain, redness, itching and swelling at the injection site, nausea, fever, dizziness and fainting. Rare but potentially serious reactions have been reported. These include allergic reaction, swollen glands, joint and muscle pain, weakness and Guillain-Herndon syndrome. HUMAN PAPILLOMAVIRUS (HPV) What is HPV ? HPV (human papillomavirus) is a common virus that affects both females and males.Most types of HPV are harmless, do not cause any symptoms, and go away on their own. About 30 types of HPV are known as genital HPV since they affect the genital area.Some types are high risk and can cause cervical cancer or abnormal cells in the lining of the cervix that sometimes turn into cancer.Others are low risk and can cause genital warts and changes in the cervix that are benign (abnormal but noncancerous). WHO GETS GENITAL HPV ? Anyone who has any kind of sexual activity involving genital contact could get genital HPV. Because many people who have HPV may not show any signs or symptoms, they can transmit the virus without even knowing it. HPV is more common than you might think.In 2005, approximately 20 million Americans had genital HPV.More than 6 million new cases of genital HPV are diagnosed in the [place] every year. HOW DO I KNOW IF I HAVE HPV ? Because HPV may not show any signs or symptoms, you probably won't know you have it.Most women are diagnosed with HPV as a result of an abnormal Pap test.A Pap test (also known as a Pap smear) is part of a gynecological exam and helps detect abnormal cells in the lining of the cervix before they have the chance to become precancers or cervical cancer. Many cervical precancers (changes that could lead to cancer) are related to HPV and can be treated successfully if detected early.That's why early detection is so important. WHAT HAPPENS IF I GET HPV ? In most people, the body's defenses are enough to clear HPV. If not cleared by the body, some HPV types cause genital warts.Other types cause abnormal changes in the cells lining the cervix that can lead to precancers and even turn into cervical cancer later in life. CERVICAL CANCER WHAT IS CERVICAL CANCER ? Cervical Cancer is cancer of the cervix.The cervix is the part of the uterus that connects the upper part of the uterus (the womb) and the vagina. Cervical cancer is a serious condition that can be life threatening.When a woman becomes infected with certain high-risk types of HPV and does not clear the infection, abnormal cells can develop in the lining of the cervix. If not discovered early and treated, these abnormal cells can become cervical precancers and then possibly cancer.Most often this can take a number of years, although in rare cases it can happen within a year. WHO GETS CERVICAL CANCER ? About half of all females diagnosed with cervical cancer are between 35 and 55 years of age.What many of these women may not realize is that they were most likely exposed to one of the high-risk types of HPV during their teens and 20's. The [place] [employer] estimated that in 2005 there were 10,370 new cases of cervical cancer diagnosed in the [place], and 3,710 women from the disease. HOW DO I KNOW IF I HAVE CERVICAL CANCER ? The usual way to detect cervical cancer is through a Pap test.If the results of a Pap test indicate that you have abnormal cervical cells, it's important to follow your healthcare professional's recommendations for more testing, such as repeat Pap testing, HPV DNA testing, colposcopy (examination of the cervix through a magnifying device), and possible biopsy (obtaining a tissue sample for analysis in the lab). HOW IS CERVICAL CANCER TREATED ? The three main methods are surgery (an operation to remove the cancer), radiation therapy (using high energy beams to destroy cancer cells), and chemotherapy (using medications to disrupt the growth of cancer cells). Sometimes treatment includes two or more of these methods. Before choosing a treatment, a healthcare professional will consider the size of the cancer, whether it has spread, the woman's age and overall health, and patient preferences.The treatment that is right for one person may not be right for someone else. ABNORMAL CERVICAL CELLS WHAT ARE ABNORMAL CERVICAL CELLS ? Abnormal cervical cells (also called cervical dysplasia) are cells in the lining of the cervix that have changed in appearance. The more severe the cervical abnormality, the more likely it is that cervical cancer could develop in the future.Most often this can take a number of years, although in rare cases it can happen within a year. WHAT CAUSES ABNORMAL CERVICAL CELLS ? Abnormal cervical cells may have a number of different causes, such as an infection or inflammation, but are commonly caused by certain types of HPV (human papillomavirus). HOW DO I KNOW IF I HABE ABNORMAL CERVICAL CELLS ? The usual way to detect abnormal cervical cells is through a Pap test.You may have additional testing, such as repeat Pap testing, HPV DNA testing, colposcopy, and possible biopsy. An abnormal biopsy result may be reported as SREE (cervical intraepithelial neoplasia). The term SREE, along with a number (1 to 3), describes how much of the thickness of the lining of the cervix contains abnormal cells.A diagnosis of RSEE 3 means there are severely abnormal cervical cells through the entire thickness of the lining of the cervix. HOW ARE ABNORMAL CERVICAL CELLS TREATED ? Most abnormal cells in the lining of the cervix will eventually go away on their own.If the abnormalities are mild, the healthcare professional may choose to closely monitor them. If the abnormalities are more severe, removing these cells can almost always prevent cervical cancer from developing in the future. Methods commonly used to treat abnormal cervical cells include freezing, removing them using an electrical instrument, and conventional surgery. The treatment may have to be repeated if the abnormal cells reappear. GENITAL WARTS WHAT ARE GENITAL WARTS ? Genital warts are flesh-colored growths that are most often caused by certain types of HPV.Genital warts most often appear on the external genitals or near the anus of females and males.Less commonly, genital warts can appear inside the vagina and on the cervix. WHO GETS GENITAL WARTS ? Anyone who has any kind of sexual activity involving genital contact could get genital HPV, and certain types of HPV can develop into genital warts.Because many people who have HPV may not show any signs or symptoms, they can transmit the virus without even knowing it.After sexual contact with an infected person, genital warts may appear within weeks, months, years, or not at all. Genital warts are very common. It is estimated that in 2002, there were over 260,000 new cases of genital warts in the [place] alone. HOW DO I KNOW IF I HAVE GENITAL WARTS ? A healthcare professional can usually recognize genital warts just by seeing them. Genital warts often do not cause symptoms. In some cases; however, they may cause burning, itching, or pain. HOW ARE GENITAL WARTS TREATED ? Genital warts sometimes disappear on their own without treatment. However, there is no way to tell if they will disappear or grow larger. A healthcare professional may choose to apply a special cream or solution to the warts. Alternatively, some genital warts can be removed by freezing, burning, or using a laser treatment. If these treatments don't work, they may be removed by surgery. There is a chance that genital warts can reappear after treatment, since the HPV that caused them may still be present. documented in this encounter [facility] 09-05-2021 Hospital Discharg e instructions Patient Education 09/05/2021 18:11:29 Lower Extremity Contusion Lower Extremity Contusion You have a contusion (bruise) of a lower extremity (leg, knee, ankle, foot, or toe). Symptoms include pain, swelling, and skin discoloration. No bones are broken. This injury may take from a few days to a few weeks to heal. During that time, the bruise may change from reddish in color, to purple-blue, to green-yellow, to yellow-brown. Home care Unless another medicine was prescribed, you can take acetaminophen, ibuprofen, or naproxen to control pain. (If you have chronic liver or kidney disease or ever had a stomach ulcer or gastrointestinal bleeding, talk with your doctor before using these medicines.) Elevate the injured area to reduce pain and swelling. As much as possible, sit or lie down with the injured area raised about the level of your heart. This is especially important during the first 48 hours. Ice the injured area to help reduce pain and swelling. Wrap a cold source (ice pack or ice cubes in a plastic bag) in a thin towel. Apply to the bruised area for 20 minutes every 1 to 2 hours the first day. Continue this 3 to 4 times a day until the pain and swelling goes away. If crutches have been advised, do not bear full weight on the injured leg until you can do so without pain. You may return to sports when you are able to put full weight and impact on the injured leg without pain. Follow up Follow up with your healthcare provider or our staff as advised. Call if you are not improving within the next 1 to 2 weeks. When to seek medical advice Call your healthcare provider right away if any of these occur: Increased pain or swelling Foot or toes become cold, blue, numb or tingly Signs of infection: Warmth, drainage, or increased redness or pain around the injury Inability to move the injured area , or any joints below the injured area. Frequent bruising for unknown reasons [id number] [employer]. [address] [place] [address], [place] [address]. All rights reserved. This information is not intended as a substitute for professional medical care. Always follow your healthcare professional's instructions. Follow Up Care 09/05/2021 17:50:11 With:ROSA DU MD Address: [address] [place] [phone] When:2-4 days [facility] 08-23-2021 History of Presen t illness Narrative Patient identified by name and date of . Sandie Jones is here for a Depo Provera injection. Patient brought medication. Date last injected: 06/01/2021 Depo-Provera, 150 mg, administered IM rightupper quadrant gluteus, Lot # [id number], expiration date 12/03/2022. Depo-Provera was given without incident. Date of last menses: Patient's last menstrual period was 11/14/2019 (approximate). Irregular bleeding - No Menses ceased - Yes STD prevention discussed: Yes Patient instructed to return to clinic on 12 weeks [email or web address] Provider Yaquelin Crawford. was present in office at time of injection. Haydee Lord RN documented in this encounter [facility] 06-25-2021 Hospital Discharg e instructions Patient Education 06/25/2021 18:34:49 Back Exercises, Lumbar Exercises to Strengthen Your Lower Back Strong lower back and abdominal muscles work together to support your spine. The exercises below will help strengthen the lower back. It is important that you begin exercising slowly and increase levels gradually. Always begin any exercise program with stretching. If you feel pain while doing any of these exercises, stop and talk to your doctor about a more specific exercise program that better suits your condition. Low back stretch The point of stretching is to make you more flexible and increase your range of motion. Stretch only as much as you are able. Stretch slowly. Do not push your stretch to the limit. If at any point you feel pain while stretching, this is your (temporary) limit. Lie on your back with your knees bent and both feet on the ground. Slowly raise your left knee to your chest as you flatten your lower back against the floor. Hold for 5 seconds. Relax and repeat the exercise with your right knee. Do 10 of these exercises for each leg. Repeat hugging both knees to your chest at the same time. Building lower back strength Start your exercise routine with 10 to 30 minutes a day, 1 to 3 times a day. Initial exercises Lying on your back: 1. Ankle pumps: Move your foot up and down, towards your head, and then away. Repeat 10 times with each foot. 2. Heel slides: Slowly bend your knee, drawing the heel of your foot towards you. Then slide your heel/foot from you, straightening your knee. Do not lift your foot off the floor (this is not a leg lift). 3. Abdominal contraction: Bend your knees and put your hands on your stomach. Tighten your stomach muscles. Hold for 5 seconds, then relax. Repeat 10 times. 4. Straight leg raise: Bend one leg at the knee and keep the other leg straight. Tighten your stomach muscles. Slowly lift your straight leg 6 to 12 inches off the floor and hold for up to 5 seconds. Repeat 10 times on each side. Standin. Wall squats: Stand with your back against the wall. Move your feet about 12 inches away from the wall. Tighten your stomach muscles, and slowly bend your knees until they are at about a 45 degree angle. Do not go down too far. Hold about 5 seconds. Then slowly return to your starting position. Repeat 10 times. 2. Heel raises: Stand facing the wall. Slowly raise the heels of your feet up and down, while keeping your toes on the floor. If you have trouble balancing, you can touch the wall with your hands. Repeat 10 times. More advanced exercises When you feel comfortable enough, try these exercises. 1. Kneeling lumbar extension: Begin on your hands and knees. At the same time, raise and straighten your right arm and left leg until they are parallel to the ground. Hold for 2 seconds and come back slowly to a starting position. Repeat with left arm and right leg, alternating 10 times. 2. Prone lumbar extension: Lie face down, arms extended overhead, palms on the floor. At the same time, raise your right arm and left leg as high as comfortably possible. Hold for 10 seconds and slowly return to start. Repeat with left arm and right leg, alternating 10 times. Gradually build up to 20 times. (Advanced: Repeat this exercise raising both arms and both legs a few inches off the floor at the same time. Hold for 5 seconds and release.) 3. Pelvic tilt: Lie on the floor on your back with your knees bent at 90 degrees. Your feet should be flat on the floor. Inhale, exhale, then slowly contract your abdominal muscles bringing your navel toward your spine. Let your pelvis rock back until your lower back is flat on the floor. Hold for 10 seconds while breathing smoothly. 4. Abdominal crunch: Perform a pelvic tilt (above) flattening your lower back against the floor. Holding the tension in your abdominal muscles, take another breath and raise your shoulder blades off the ground (this is not a full sit-up). Keep your head in line with your body (don t bend your neck forward). Hold for 2 seconds, then slowly lower. [id number] [employer]. [address] [place] [address]. All rights reserved. This information is not intended as a substitute for professional medical care. Always follow your healthcare professional's instructions. 06/25/2021 18:34:47 Back Care Tips Back Care Tips Caring for your back These are things you can do to prevent a recurrence of acute back pain and to reduce symptoms from chronic back pain: Maintain a healthy weight. If you are overweight, losing weight will help most types of back pain. Exercise is an important part of recovery from most types of back pain. The muscles behind and in front of the spine support the back. This means strengthening both the back muscles and the abdominal muscles will provide better support for your spine. Swimming and brisk walking are good overall exercises to improve your fitness level. Practice safe lifting methods (below). Practice good posture when sitting, standing and walking. Avoid prolonged sitting. This puts more stress on the lower back than standing or walking. Wear quality shoes with sufficient arch support. Foot and ankle alignment can affect back symptoms. Women should avoid wearing high heels. Therapeutic massage can help relax the back muscles without stretching them. During the first 24 to 72 hours after an acute injury or flare-up of chronic back pain, apply an ice pack to the painful area for 20 minutes and then remove it for 20 minutes, over a period of 60 to 90 minutes, or several times a day. As a safety precaution, do not use a heating pad at bedtime. Sleeping on a heating pad can lead to skin barcenas or tissue damage. You can alternate ice and heat therapies. Medicines Talk to your healthcare provider before using medicines, especially if you have other medical problems or are taking other medicines. You may use acetaminophen or ibuprofen to control pain, unless your healthcare provider prescribed other pain medicine. If you have chronic conditions like diabetes, liver or kidney disease, stomach ulcers, or gastrointestinal bleeding, or are taking blood thinners, talk with your healthcare provider before taking any medicines. Be careful if you are given prescription pain medicines, narcotics, or medicine for muscle spasm. They can cause drowsiness, affect your coordination, reflexes, and judgment. Do not drive or operate heavy machinery while taking these types of medicines. Take prescription pain medicine only as prescribed by your healthcare provider. Lumbar stretch Here is a simple stretching exercise that will help relax muscle spasm and keep your back more limber. If exercise makes your back pain worse, don t do it. Lie on your back with your knees bent and both feet on the ground. Slowly raise your left knee to your chest as you flatten your lower back against the floor. Hold for 5 seconds. Relax and repeat the exercise with your right knee. Do 10 of these exercises for each leg. Safe lifting method Don t bend over at the waist to lift an object off the floor. Instead, bend your knees and hips in a squat. Keep your back and head upright Hold the object close to your body, directly in front of you. Straighten your legs to lift the object. Lower the object to the floor in the reverse fashion. If you must slide something across the floor, push it. Posture tips Sitting Sit in chairs with straight backs or low-back support. Keep your knees lower than your hips, with your feet flat on the floor. When driving, sit up straight. Adjust the seat forward so you are not leaning toward the steering wheel. A small pillow or rolled towel behind your lower back may help if you are driving long distances. Standing When standing for long periods, shift most of your weight to one leg at a time. Alternate legs every few minutes. Sleeping The best way to sleep is on your side with your knees bent. Put a low pillow under your head to support your neck in a neutral spine position. Avoid thick pillows that bend your neck to one side. Put a pillow between your legs to further relax your lower back. If you sleep on your back, put pillows under your knees to support your legs in a slightly flexed position. Use a firm mattress. If your mattress sags, replace it, or use a 1/2-inch plywood board under the mattress to add support. Follow-up care Follow up with your healthcare provider, or as advised. If X-rays, a CT scan or an MRI scan were taken, they will be reviewed by a radiologist. You will be notified of any new findings that may affect your care. Call 911 Call 911 if any of the following occur: Trouble breathing Confusion Very drowsy Fainting or loss of consciousness Rapid or very slow heart rate Loss of bowel or bladder control When to seek medical advice Call your healthcare provider right away if any of the following occur: Pain becomes worse or spreads to your arms or legs Weakness or numbness in one or both arms or legs Numbness in the groin area [id number] [employer] [place] [address]. All rights reserved. This information is not intended as a substitute for professional medical care. Always follow your healthcare professional's instructions. Follow Up Care 06/25/2021 18:26:41 With:ROSA DU MD Address: [address] [place] [phone] When:2-4 days [facility] Evaluation + Plan note No data available for this section [facility] Diagnosis Encounter for gynecological examination (general) (routine) without abnormal findings- Primary Need for prophylactic vaccination/inoculation against viral disease Need for prophylactic vaccination and inoculation against other viral diseases Genital herpes simplex, unspecified site [facility] Diagnosis Encounter for management and injection of depo-Provera- Primary Surveillance of other previously prescribed contraceptive method [facility] Diagnosis Surveillance for Depo-Provera contraception- Primary Surveillance of other previously prescribed contraceptive method Encounter for management and injection of depo-Provera Surveillance of other previously prescribed contraceptive method documented in this [facility] Diagnosis Acute cystitis with hematuria- Primary Acute cystitis Dysmenorrhea Encounter for surveillance of other contraceptive documented in this [facility] Diagnosis Encounter for management and injection of depo-Provera- Primary Surveillance of other previously prescribed contraceptive method documented in this [facility] No data available for this section [facility] for visit Narrative* Outpatient Procedure (Routine) - Closed Specialty Diagnoses / Procedures Referred By Contac t Referred To Contact Radiology / [facility] Diagnoses Chronic viral hepatitis C us liver elastography, order to be faxed by [email or web address] Procedures LIVER ELASTOGRAPHY W/O IMAG W/I&R US ELASTOGRAPHY Austin Casey MD [address] [place] [address] [place] [address] Referral ID Status Reason Start Date Expiration Date Visits Re quested Visits Authorized [id number] Closed 11/29/2022 05/06/2023 1 1 [facility] for visit Narrative* Outpatient Procedure (Routine) - Closed Specialty Diagnoses / Procedures Referred By Contac t Referred To Contact Radiology / [facility] Diagnoses Chronic viral hepatitis C liver elastography, order stacy faxed, Procedures US ABDOMINAL REAL TIME W/IMAGE DOCUMENTATION US ABDOMEN COMPLETE Austin Casey MD [address] [place] [address] [place] [id number] Referral ID Status Reason Start Date Expiration Date Visits Re quested Visits Authorized [id number] Closed 11/29/2022 05/06/2023 1 1 [facility] Medications Administered Section Active Administered Medications - up to 3 most recent administrations Medication Order MAR Action Action Date Dose Rate Site medroxyPROGESTERone 150 mg injection (DEPO-PROVERA) 150 mg, INTRAMUSCULAR, EVERY 12 WEEKS, 4 doses, First dose on Sun08/23/21 at 0930, Last dose on Sun05/02/22 at 0930, Hazardous Potential Reproductive Risk Drug: Use appropriate PPE. Given 08/23/2021 9:18 AM EDT 150 mg Buttocks, Right Active Administered Medications - up to 3 most recent administrations Medication Order MAR Action Action Date Dose Rate Site medroxyPROGESTERone 150 mg injection (DEPO-PROVERA) 150 mg, INTRAMUSCULAR, EVERY 12 WEEKS, 4 doses, First dose on Sun08/23/21 at 0930, Last dose on Sun05/02/22 at 0930, Hazardous Potential Reproductive Risk Drug: Use appropriate PPE. Given 01/06/2022 4:41 PM EDT 150 mg Buttocks, Left Active Administered Medications - up to 3 most recent administrations Medication Order MAR Action Action Date Dose Rate Site medroxyPROGESTERone 150 mg injection (DEPO-PROVERA) 150 mg, INTRAMUSCULAR, EVERY 12 WEEKS, 4 doses, First dose on Sun08/23/21 at 0930, Last dose on Sun05/02/22 at 0930, Hazardous Potential Reproductive Risk Drug: Use appropriate PPE. Given 05/24/2022 11:14 AM EST 150 mg Buttocks, Right Active Administered Medications - up to 3 most recent administrations Medication Order MAR Action Action Date Dose Rate Site medroxyPROGESTERone 150 mg injection (DEPO-PROVERA) 150 mg, INTRAMUSCULAR, EVERY 12 WEEKS, 4 doses, First dose on Sun09/05/22 at 1500, Last dose on Sun05/15/23 at 1500, Hazardous Potential Reproductive Risk Drug: Use appropriate PPE. Given 09/05/2022 2:50 PM EDT 150 mg Buttocks, Left Active Administered Medications - up to 3 most recent administrations Medication Order MAR Action Action Date Dose Rate Site medroxyPROGESTERone 150 mg injection (DEPO-PROVERA) 150 mg, INTRAMUSCULAR, EVERY 12 WEEKS, 4 doses, First dose on Sun12/07/22 at 1500, Last dose on Sun08/16/23 at 1500, Hazardous Potential Reproductive Risk Drug: Use appropriate PPE. Given 03/15/2023 4:12 PM EST 150 mg Buttocks, Right Advance Directives No Advanced Directives Records FoundDocuments on File Type Date Recorded Patient Physician Assistant Psychiatry Expl anation Advance Directive(s) 05/19/2017 7:13 PM Summary Purpose Family History No Family History Records FoundNo Family History Records Found Additional Source Comments Source Comments (unrecognize d section and content) In the event this informatio n is protected by the Federal Confidentiality of Alcohol and Drug Abuse Patient Records regulations: The Federal rules restrict any use of the information to criminally investigate or prosecute any alcohol or drug abuse patient.[facility] event this information is protected by the Federal Confidentiality of Alcohol and Drug Abuse Patient Records regulations: The Federal rules restrict any use of the information to criminally investigate or prosecute any alcohol or drug abuse patient.[facility] the event this information is protected by the Federal Confidentiality of Alcohol and Drug Abuse Patient Records regulations: The Federal rules restrict any use of the information to criminally investigate or prosecute any alcohol or drug abuse patient.[facility] event this information is protected by the Federal Confidentiality of Alcohol and Drug Abuse Patient Records regulations: The Federal rules restrict any use of the information to criminally investigate or prosecute any alcohol or drug abuse patient.[facility] event this information is protected by the Federal Confidentiality of Alcohol and Drug Abuse Patient Records regulations: The Federal rules restrict any use of the information to criminally investigate or prosecute any alcohol or drug abuse patient.[facility] the event this information is protected by the Federal Confidentiality of Alcohol and Drug Abuse Patient Records regulations: The Federal rules restrict any use of the information to criminally investigate or prosecute any alcohol or drug abuse patient.[facility] the event this information is protected by the Federal Confidentiality of Alcohol and Drug Abuse Patient Records regulations: The Federal rules restrict any use of the information to criminally investigate or prosecute any alcohol or drug abuse patient.[facility] the event this information is protected by the Federal Confidentiality of Alcohol and Drug Abuse Patient Records regulations: The Federal rules restrict any use of the information to criminally investigate or prosecute any alcohol or drug abuse patient.[facility] the event this information is protected by the Federal Confidentiality of Alcohol and Drug Abuse Patient Records regulations: The Federal rules restrict any use of the information to criminally investigate or prosecute any alcohol or drug abuse patient.[facility] Reason for Visit (unrecogniz ed section and content) Reason Onset Date Comments Yearly Exam Gardasil Injection 09/06/2021 Reason Onset Date Comments Depo Provera Injection 01/06/2022 Reason Onset Date Comments Depo Provera Injection 05/24/2022 Reason Onset Date Comments Discussion UTI sxs Depo Provera Injection 09/05/2022 Patient b rought own med Reason Onset Date Comments Refill Request 12/07/2022 Reason Onset Date Comments Depo Provera Injection 03/15/2023 Care Team (unrecognized sect ion and content) Personnel Name: ROSA DU MD Address: [address] [place] [id number]- [place] Personnel Name: ROSA DU MD Address: [address] [place] [id number]- [place] Care Team Personnel Name: ROSA DU MD Member Role: Primary Care Physician Address: Address: [address] [place] [address]- Name: DOROTA SZYMANSKI DO Position: Resident Member Role: Resident Address: Address: [address] [facility] [place] [address]- Name: Janice Russo RN Position: ED RN Member Role: ED RN Name: DILCIA MAURER DO Position: ED Physician Member Role: Attending Physician Address: Address: [address] [facility] [place] [address]- [place] Care Team Personnel Name: ROSA DU MD Member Role: Primary Care Physician Address: Address: [address] [place] [address] Name: SAM MACIAS MD Position: ED Physician Member Role: Attending Physician Address: Address: [facility] [address] [place] [address]- Care Team (unrecognized sect ion and content) Care Team Personnel Name: ROSA DU MD Member Role: Primary Care Physician Address: Address: [address] [place] [address] Care Team Personnel Name: ROSA DU MD Member Role: Primary Care Physician Address: Address: [address] [place] [address] Care Team Personnel Name: ROSA DU MD Member Role: Primary Care Physician Address: Address: [address] [place] [address] Care Team Personnel Name: ROSA DU MD Member Role: Primary Care Physician Address: Address: [address] [place] [address] Name: SAM MACIAS MD Position: ED Physician Member Role: Attending Physician Address: Address: [facility] [address] [place] [address]- INFORMATION SOURCE (unrecogn ized section and content) DATE CREATED AUTHOR AUTHOR'S ORGANIZ ATION 03/19/2023 [facility] FOR RECORDS PERTAINING TO PATIENTS WHO ARE OR HAVE BEEN ENROLLED IN A CHEMICAL DEPENDENCY/SUBSTANCEABUSE PROGRAM, SOME INFORMATION MAY BE OMITTED. This clinical summary was aggregated from multiple sources. Caution should be exercised in using it in the provision of clinical care. This summary normalizes information from multiple sources, and as a consequence, information in this document may materially change the coding, format and clinical context of patient data. In addition, data may be omitted in some cases. CLINICAL DECISIONS SHOULD BE BASED ON THE PRIMARY CLINICAL RECORDS. [employer] provides no warranty or guarantee of the accuracy or completeness of information in this document.
[2023-05-13 18:14] VITALS: BP 118/73; PULSE 71; RESP 16; O2SAT 98; BMI 28.0
== END 2023-05-13 18:15 | disposition home or self-care (01) ==
PROVIDERS: Emergency Provider Student in an Organized Health Care Education/Training Program; PCP Internal Medicine; Visit Provider Student in an Organized Health Care Education/Training Program
DX: B34.9 Viral infection, unspecified (principal); I10 Essential (primary) hypertension; F17.210 Nicotine dependence, cigarettes, uncomplicated; F17.290 Nicotine dependence, other tobacco product, uncomplicated; Z20.828 Contact with and (suspected) exposure to other viral communicable diseases; Z79.899 Other long term (current) drug therapy
CPT/HCPCS: 87631; 96372; 99282

== ENCOUNTER → 2023-06-05 | Outpatient (CLI) | payer MEDICAID, SELFPAY ==
[2023-06-05 15:26] LABS: Mucous, Urine 0 SEEN /hpf (<or=2+)
[2023-06-05 15:46] LABS: Color, Urine Yellow (Yellow); Glucose, Dipstick Normal (Normal); Ketone-Dipstick Negative (Negative); Leukocyte Esterase-Dipstick 500 /ul (Negative); Nitrite-Dipstick Negative (Negative); Occult Blood-Urine 250 /ul (Negative); Protein-Dipstick Negative (Negative); Specific Gravity, Urine 1.015 (1.002-1.030); Urine Bilirubin Dipstick Negative (Negative); Urine Clarity Clear (Clear); Urine Urobilinogen Normal (Normal)
[2023-06-05 16:05] LABS: Trichomonas 0-5 SEEN /hpf (None Seen); White Blood Cells 5-10 SEEN /hpf (0-5)
[2023-06-05 16:06] LABS: Bacteria RARE /hpf (None Seen); Red Blood Cells-Urine 5-10 SEEN /hpf (0-5); Squamous Epithelial Cells - UA 0-5 SEEN /hpf (5-10)
[2023-06-05 16:07] LABS: Yeast-Urine RARE /hpf (None Seen)
== END | disposition home or self-care (01) ==
LOC: LABSPEC 15:03
PROVIDERS: PCP Internal Medicine; Referring Provider Physician Assistant; Visit Provider Physician Assistant
DX: R10.9 Unspecified abdominal pain (principal)
CPT/HCPCS: 81001; 87086; 87088

== ENCOUNTER → 2023-06-07 | Outpatient (CLI) | payer MEDICAID, SELFPAY ==
--- OUTSIDE RECORDS SUMMARY | 2023-06-07 07:50 | XMS RPT_ITS | CCD ---
Author Name Unknown Address [address] [place] [address] Organization [facility] Care Team Providers Care Director Of Automation Name Role Phone ROSA DU MD Primary Care Physician Unavailable Primary Care Provider Unavailabl e Unavailable Primary Care Provider Unavailabl ROSA Dumont MD Primary Care Unavailab DILCIA Palm DO Attending SAM Jackson MD Attending Unavail ROSA Bruno MD Primary Care Unavailab DILCIA Palm DO Attending Unavailable ROSA DU MD Primary Care Unavailab SAM Rogers MD Attending Unavail ROSA Bruno MD Primary Care Unavailab SHEYLA Holt DO Attending Unavailable ROSA DU MD Primary Care Unavailab MYNOR Pineda MD Attending Unavailable ROSA DU MD Primary Care Unavailab SAM Rogers MD Attending Unavail ROSA Bruno MD Primary Care Unavailab JAMES Box MD Attending Unavailable ROSA DU MD Primary Care Unavailab SAM Rogers MD Attending Unavail ROSA Bruno MD Primary Care Unavailab JOSE Dumont Referring Unavailable ROSA DU Primary Care Unavailable ROSA DU Primary Care Unavailable YAQUELIN CRAWFORD Attending Unavailable Allergies Allergy Classification Reported Allergen(s) Allergy Type Date of Onset Reaction(s) Facility (19 sources) Naproxen; Translations: [naproxen] Drug Allergy 5 Other: See Comments [facility] Keyshawn Lorenzo (9 sources) OTC skin products [Other] Propensity to adverse reactions 0 Other: See Comments [facility] (1 source) OTHER; Translations: [OTHER] Propensity to adverse reactions (disorder) 0 [facility] Repository Medications Current Medications Medication Drug Class(es) [...] every six hours as needed for pain [place] 325- 5 mg oral tablet Dose = [...] body region, initial encounter] Onset: 09-05-2021 Episodic Other non-traumatic joint disorders (1 source) Pain in left knee; Translations: [Acute pain of left knee] Onset: 05-30-2023 Episodic Skin and subcutaneous tissue infections (1 [...] weight 89.36 kg Nurse Wstr Work Phone: [facility] 03-15-2023 15:54-0500 Diastolic blood pressure 78 mm[Hg] Nurse Wstr Work Phone: [facility] 03-15-2023 15:54-0500 Systolic blood pressure 128 mm[Hg] Nurse Wstr Work Phone: [facility] 09-18-2022 18:29-0400 Body height 170 cm SAM MACIAS MD [facility] 09-18-2022 18:29-0400 Body temperature 98.78 [degF] SAM MACIAS MD [facility] 09-18-2022 18:29-0400 Body weight 82 kg SAM MACIAS MD [facility] 09-18-2022 18:29-0400 Diastolic Blood Pressure Non-Invasive 89 1 SAM MACIAS MD [facility] 09-18-2022 18:29-0400 Heart rate 76 /min SAM MACIAS MD [facility] 09-18-2022 18:29-0400 Respiratory rate 20 /min SAM MACIAS MD [facility] 09-18-2022 18:29-0400 Systolic Blood Pressure Non-Invasive 141 1 SAM MACIAS MD [facility] 09-05-2022 14:11-0400 Body weight 83.1 kg Yaquelin Ty HOT MIX OPERATOR.PLASTER BLOCK LAYER Work Phone: [facility] 09-05-2022 14:11-0400 Diastolic blood pressure 80 mm[Hg] Yaquelin Ty HOT MIX OPERATOR.PLASTER BLOCK LAYER Work Phone: [facility] 09-05-2022 14:11-0400 Systolic blood pressure 130 mm[Hg] Yaquelin Universal HOT MIX OPERATOR.PLASTER BLOCK LAYER Work Phone: [facility] 07-25-2022 20:55-0400 Diastolic Blood Pressure Non-Invasive 84 1 DILCIA REICHFIELD DO [facility] 07-25-2022 20:55-0400 Heart rate 77 /min DILCIA REICHFIELD DO [facility] 07-25-2022 20:55-0400 Reason For Taking VItal Signs DILCIA REICHFIELD DO [facility] 07-25-2022 20:55-0400 Respiratory rate 16 /min DILCIA REICHFIELD DO [facility] 07-25-2022 20:55-0400 Systolic Blood Pressure Non-Invasive 143 1 DILCIA REICHFIELD DO [facility] 07-25-2022 18:39-0400 Body temperature 98.78 [degF] DILCIA REICHFIELD DO [facility] 07-25-2022 18:39-0400 Diastolic Blood Pressure Non-Invasive 88 1 DILCIA REICHFIELD DO [facility] 07-25-2022 18:39-0400 Heart rate 88 /min DILCIA REICHFIELD DO [facility] 07-25-2022 18:39-0400 Respiratory rate 16 /min DILCIA REICHFIELD DO [facility] 07-25-2022 18:39-0400 Systolic Blood Pressure Non-Invasive 150 1 DILCIA REICHFIELD DO [facility] 06-10-2022 02:48-0500 Blood Pressure Location SAM MACIAS MD [facility] 06-10-2022 02:48-0500 Body temperature 97.7 [degF] SAM MACIAS MD [facility] 06-10-2022 02:48-0500 Diastolic Blood Pressure Non-Invasive 67 1 SAM MACIAS MD [facility] 06-10-2022 02:48-0500 Heart rate 90 /min SAM MACIAS MD [facility] 06-10-2022 02:48-0500 Reason For Taking VItal Signs SAM MACIAS MD [facility] 06-10-2022 02:48-0500 Respiratory rate 20 /min SAM MACIAS MD [facility] 06-10-2022 02:48-0500 Systolic Blood Pressure Non-Invasive 114 1 SAM MACIAS MD [facility] 05-24-2022 11:03-0500 Body weight 79.92 kg Nurse Wstr Work Phone: [facility] 05-24-2022 11:03-0500 Diastolic blood pressure 80 mm[Hg] Nurse Wstr Work Phone: [facility] 05-24-2022 11:03-0500 Systolic blood pressure 118 mm[Hg] Nurse Wstr Work Phone: [facility] 01-29-2022 15:28-0400 Body temperature 98.78 [degF] JAMES LAMB MD [facility] 01-29-2022 15:28-0400 Diastolic blood pressure 78 mm[Hg] JAMES LAMB MD [facility] 01-29-2022 15:28-0400 Heart rate 82 /min JAMES LAMB MD [facility] 01-29-2022 15:28-0400 Respiratory rate 18 /min JAMES LAMB MD [facility] 01-29-2022 15:28-0400 Systolic blood pressure 132 mm[Hg] JAMES LAMB MD [facility] 01-06-2022 15:50-0400 Body weight 75.75 kg Nurse Wstr Work Phone: [facility] 01-06-2022 15:50-0400 Diastolic blood pressure 68 mm[Hg] Nurse Wstr Work Phone: [facility] 01-06-2022 15:50-0400 Systolic blood pressure 110 mm[Hg] Nurse Wstr Work Phone: [facility] 12-07-2021 18:00-0400 Body temperature 98.24 [degF] MYNOR TINOCO MD [facility] 12-07-2021 18:00-0400 Body weight 72.4 kg MYNOR TINOCO MD [facility] 12-07-2021 18:00-0400 Diastolic blood pressure 88 mm[Hg] MYNOR TINOCO MD [facility] 12-07-2021 18:00-0400 Heart rate 92 /min MYNOR TINOCO MD [facility] 12-07-2021 18:00-0400 Mean blood pressure 101 mm[Hg] MYNOR TINOCO MD [facility] 12-07-2021 18:00-0400 Respiratory rate 16 /min MYNOR TINOCO MD [facility] 12-07-2021 18:00-0400 Systolic blood pressure 128 mm[Hg] MYNOR TINOCO MD [facility] 11-20-2021 10:05-0400 Body temperature 98.42 [degF] SAM MACIAS MD [facility] 11-20-2021 10:05-0400 Diastolic blood pressure 78 mm[Hg] SAM MACIAS MD [facility] 11-20-2021 10:05-0400 Heart rate 70 /min SAM MACIAS MD [facility] 11-20-2021 10:05-0400 Respiratory rate 18 /min SAM MACIAS MD [facility] 11-20-2021 10:05-0400 Systolic blood pressure 135 mm[Hg] SAM MAICAS MD [facility] 10-10-2021 17:29-0400 Body height 167.6 cm SAM MACIAS MD [facility] 10-10-2021 17:29-0400 Body temperature 98.06 [degF] SAM MACIAS MD [facility] 10-10-2021 17:29-0400 Body weight 75 kg SAM MACIAS MD [facility] 10-10-2021 17:29-0400 Diastolic blood pressure 85 mm[Hg] SAM MACIAS MD [facility] 10-10-2021 17:29-0400 Heart rate 85 /min SAM MACIAS MD [facility] 10-10-2021 17:29-0400 Respiratory rate 20 /min SAM MACIAS MD [facility] 10-10-2021 17:29-0400 Systolic blood pressure 132 mm[Hg] SAM MACIAS MD [facility] 09-06-2021 15:03-0400 Body height 166.4 cm Angelina Carlson APRN.PLASTER BLOCK LAYER Work Phone: [facility] 09-06-2021 15:03-0400 Body weight 76.57 kg Angelina Carlson APRN.PLASTER BLOCK LAYER Work Phone: [facility] 09-06-2021 15:03-0400 Diastolic blood pressure 66 mm[Hg] Angelina Carlson APRN.PLASTER BLOCK LAYER Work Phone: [facility] 09-06-2021 15:03-0400 Systolic blood pressure 120 mm[Hg] Angelina Carlson APRN.PLASTER BLOCK LAYER Work Phone: [facility] 09-05-2021 17:57-0400 Body temperature 98.78 [degF] SHEYLA URRUTIAT [facility] 09-05-2021 17:57-0400 Diastolic blood pressure 85 mm[Hg] SHEYLA URRUTIAT DO [facility] 09-05-2021 17:57-0400 Heart rate 107 /min SHEYLA URRUTIAT DO [facility] 09-05-2021 17:57-0400 Respiratory rate 16 /min SHEYLA URRUTIAT DO [facility] 09-05-2021 17:57-0400 Systolic blood pressure 128 mm[Hg] SHEYLA URRUTIAT DO [facility] 08-23-2021 09:23-0400 Body weight 79.02 kg Nurse Wstr Work Phone: [facility] 08-23-2021 09:23-0400 Diastolic blood pressure 74 mm[Hg] Nurse Wstr Work Phone: [facility] 08-23-2021 09:23-0400 Systolic blood pressure 124 mm[Hg] Nurse Wstr Work Phone: [facility] 06-25-2021 18:30-0500 Body temperature 98.6 [degF] SHEYLA ROSAS DO [facility] 06-25-2021 18:30-0500 Diastolic blood pressure 72 mm[Hg] SHEYLA URRUTIAT DO [facility] 06-25-2021 18:30-0500 Heart rate 115 /min SHEYLA URRUTIAT DO [facility] 06-25-2021 18:30-0500 Respiratory rate 18 /min SHEYLA URRUTIAT DO [facility] 06-25-2021 18:30-0500 Systolic blood pressure 133 mm[Hg] SHEYLA ROSAS DO [facility] Encounters Encounter Date Encounter Type Care Provider Facility Start: 05-30-2023 End: 05-30-2023 ambulatory ROSA DU Facility:[facility] Start: 03-15-2023 End: 03-16-2023 ambulatory JOSE EASTMAN Facility:[facility] Start: 03-15-2023 End: 03-15-2023 Nursing evaluation of patient and report Nurse Hydroelectric Systems Technician [facility] Wstr Work Phone: OB/Gynecology Procedures Date Procedure Procedure Detail Performing Clinician Start: 03-15-2023 Urine test visual color cmprsn meths Love Penny MD Work Phone: Start: 12-13-2022 Ultrasound elastogra phy parenchyma [facility] Provider Start: 09-05-2022 Urine test visual color cmprsn meths Yaquelinangelina Crawford APRN.CNP Work Phone: Start: 05-24-2022 Urine test visual color cmprsn meths Love Preston Penny MD Work Phone: Appendectomy SHEYLA URRUTIA Balbir DO Cholecystectomy SHEYLA [facility] DO Plan of Treatment Date Care Activity Detail Author Start: 09-06-2031 Urine microalbumin profile DTaP,Tdap,Td Vaccine (7 - Td or Tdap) [facility] Start: 12-11-2024 HPV TESTING HPV TESTING [facility] Start: 12-11-2024 PAP TESTING PAP TESTING [facility] Start: 01-05-2023 Influenza vaccination [facility] Start: 05-07-2022 DEPRESSION ASSESSMENT DEPRESSION ASSESSMENT [facility] Start: 03-05-2022 9vhpv vacc 2/3 dose sched im use HUMAN PAPILLOMAVIRUS 9-VALENT HPV IM Immunization/Injection Routine Expected: 03/05/2022 (Approximate) [facility] Work Phone: Immunizations Immunization Date Immunization Notes Care Provider Loc sarkar 09-06-2021 Human Papillomavirus 9-valent vaccine Angelina Carlson APRN.PLASTER BLOCK LAYER Work Phone: [facility] Work Phone: 09-05-2021 tetanus toxoid, redu tadeo diphtheria toxoid, and acellular pertussis vaccine, adsorbed [facility] [employer] [place] [facility] 10-08-2019 tetanus toxoid, redu tadeo diphtheria toxoid, and acellular pertussis vaccine, adsorbed; Translations: [Boostrix (Tdap)] [facility] 04-21-1991 diphtheria, tetanus toxoids and acellular pertussis vaccine Nurse Wstr Work Phone: [facility] 04-21-1991 DTP-Haemophilus influenzae type b conjugate vaccine Nurse Wstr Work Phone: [facility] 01-14-1991 diphtheria, tetanus toxoids and acellular pertussis vaccine Nurse Wstr Work Phone: [facility] 01-14-1991 DTP-Haemophilus influenzae type b conjugate vaccine Nurse Wstr Work Phone: [facility] 01-14-1991 trivalent poliovirus vaccine, live, oral Nurse Wstr Work Phone: [facility] 1990 diphtheria, tetanus toxoids and acellular pertussis vaccine Nurse Wstr Work Phone: [facility] 1990 trivalent poliovirus vaccine, live, oral Nurse Wstr Work Phone: [facility] Payers Date Payer Category Payer Unknown [id number] 2021 Unknown [id number] 2020 Medicaid [employer] [id number] 2020-Present [phone] [address] [place] [address] Medicaid [id number] 2020 Medicaid [id number] 1990 Unknown [id number] 1990 Unknown [id number] 1990 Unknown [id number] 1990 Unknown [id number] 1990 Unknown [id number] 1990 Unknown [id number] 1990 Unknown [id number] 1990 Unknown [id number] 1990 Unknown [id number] Social History Date Type Detail Facility Start: 05-06-2019 Heavy tobacco smoker (finding) [facility] Start: 1990 Sex Assigned At Female A [facility] Start: 01-06-2022 Tobacco smoking stat us ILIS Smokes tobacco daily [facility] History of tobacco use Cigarette Smoker [facility] Work Phone: Start: 06-01-2021 End: 03-15-2023 Alcohol intake Current drinker of alcohol (finding) [facility] Start: 12-12-2019 History SDOH Alcohol Comment Seldom [facility] Start: 08-13-2021 End: 01-04-2022 Exposure to SARS-CoV-2 (event) Not sure [facility] Work Phone: Start: 01-06-2022 End: 12-08-2022 Cigarettes smoked current (pack per day) - Reported 0.3 [facility] Start: 01-06-2022 Tobacco use and exposure Smokeless tobacco non-user [facility] Work Phone: Start: 09-05-2022 End: 12-08-2022 Tobacco use panel [facility] National Score (1-10 0), lower number is lower risk 63 [facility] Start: 11-21-2020 Gender identity Identifies as female gender (finding) [facility] Functional Status Date Assessment Result Facility 09-18-2022 [facility] Functional Status Standard Safet y ID band on, Allergy Band on, Call device within reach, Bed in low position, Wheels locked, Bedside Cart Locked, Safety level maintained [facility] 07-25-2022 Functional Status [facility] 06-10-2022 Functional Status Room check performed [facility] 01-29-2022 Functional Status ID band on, Allergy Band on, Call device within reach, Bed in low position, Wheels locked, Upper/Half-Length side-rails up, Phone within reach, personal items within reach, Assistive devices within reach, Toileting device within reach, Bedside Cart Locked, Visitor at bedside, Safety level maintained [facility] 12-07-2021 Functional Status ID band on, Allergy Band on, Call device within reach, Bed in low position, Wheels locked, Upper/Half-Length side-rails up, Phone within reach, personal items within reach [facility] 11-20-2021 Functional Status ID band on, Call device within reach, Bed in low position, Wheels locked, Upper/Half-Length side-rails up, Phone within reach, personal items within reach, Assistive devices within reach, Toileting device within reach, Bedside Cart Locked, Visitor at bedside, Safety level maintained [facility] 10-10-2021 Functional Status Resting [facility] 09-05-2021 Functional Status [facility] Mental Status Date Assessment Result Facility 09-18-2022 Mental Status Orientation Oriented x 4 [facility] 07-25-2022 Mental Status Orientation Oriented x 4 [facility] 06-10-2022 Mental Status Oriented x 4 [facility] 01-29-2022 Mental Status Oriented x 4 [facility] 12-07-2021 Mental Status Oriented x 4 [facility] 11-20-2021 Mental Status Oriented x 4 [facility] 10-10-2021 Mental Status Orientation Oriented x 4 [facility] 09-05-2021 Mental Status [facility] Clinical Notes 06-25-2021 to 05-30-2023 Claudia Hargrove RN - 03/15/2023 3:53 PM ESTTelephone Alejandro - Pratima Carmona RN - 12/07/2022 2:39 PM EDTPatient InstructionsRebecca Alexis LPN - 09/05/2022 2:39 PM EDTPatient Instructions Note Date & Type Note Facility 05-30-2023 Note HNO ID: [id number] Author: GLORIA GREY RT(R) Service: Radiology Author Type: Technologist Type: Progress Notes Filed: 05/30/2023 12:35 Note Text: Radiology Service Progress Note PATIENT NAME: Sandie Jones DATE OF SERVICE: May 30, 2023 TIME: 12:23 PM PATIENT IDENTITY VERIFICATION COMPLETED USING TWO (2) IDENTIFIERS: Name and Date of confirmed by patient verbally. FALL SCREENING: Has the patient had 2 falls in the last year or 1 fall with injury or currently using an Ambulatory Assistive Device (Walker, Cane, Wheelchair, Crutches, etc.)? No PATIENT GENDER DATA: Female. status: : No status: NO. PATIENT RELEVANT IMPLANT DATA REVIEWED: Yes RADIOLOGY DEPARTMENT: General X-ray: Exam(s) Completed: Lower Extremity X-Ray(s): Knee, AP / Lat / Tunne / Merchant Left and Wt. Bearing PERIPHERAL IV DATA: Not applicable SIGNED BY: RT Jacque(R) May 30, 2023 12:23 PM [facility] 05-30-2023 Note HNO ID: [id number] Author: JOSE EASTMAN APRN.PLASTER BLOCK LAYER Service: ? Author Type: Nurse Practitioner Type: Progress Notes Filed: 05/30/2023 13:03 Note Text: Subjective HPI Nontoxic-appearing female presents urgent care chief plaint left knee pain. Duration of symptoms today. Associated symptoms left knee pain. Patient states slipped on ice this morning striking her knee on the ground. Presents today due to persistent pain. Has not used any OTC medications. Denies any other injuries. No neck no back no head pain. No numbness no tingling. No decrease sensation decreased range of motion. Denies history of fracture or surgery to this leg in the past. No chance of . Past medical history prescription medications allergies reviewed. .Patient presents with: Trauma: Left knee injury happened this morning PAST MEDICAL HISTORY Diagnosis Date Acute appendicitis 06/19/14 Asthma Bipolar 1 disorder (HCC) Generalized anxiety disorder Anxiety, Generalized Genital herpes Migraines PAST SURGICAL HISTORY Procedure Laterality Date CHOLECYSTECTOMY Cholecystectomy LAPAROSCOPIC APPENDECTOMY 06/19/14 NEXPLANON INSERTION Left 12/17/2019 PAST SURGICAL HISTORY OF WISDOM TEETH ALLERGIES Naproxen and Otc Skin Products [Other] MEDICATIONS MAVYRET 100-40 mg tabletTAKE 3 TABLETS BY MOUTH EVERY DAY WITH FOODDisp: Rfl: amLODIPine (NORVASC) 5 mg tabletTake 1 tablet by mouth every afternoon.Disp: Rfl: NURTEC ODT 75 mg disintegrating tabletDisp: Rfl: medroxyPROGESTERone (DEPO-PROVERA) 150 mg/mLInject 1 mL intramuscularly every 12 weeks.Disp: 1 mLRfl: 3 valACYclovir (VALTREX) 500 mg tabletTake 1 tablet by mouth once daily.Disp: 90 tabletRfl: 4 buPROPion SR (WELLBUTRIN SR) 100 mg 12 hr tabletTake 100 mg by mouth once daily.Disp: Rfl: FLUoxetine HCl 20 mg tabletTake 20 mg by mouth.Disp: Rfl: traZODone (DESYREL) 50 mg tabletTake 50 mg by mouth.Disp: Rfl: ALBUTEROL INHALATIONInhale as instructed.Disp: Rfl: SYMBICORT 160-4.5 mcg/actuation inhalerDisp: Rfl: gabapentin (NEURONTIN) 300 mg capsuleDisp: Rfl: cariprazine (VRAYLAR) 1.5 mg capsuleTake 3.5 mg by mouth once daily. Disp: Rfl: phenazopyridine (PYRIDIUM) 100 mg tabletTake 1 tablet by mouth three times daily as needed.Disp: 15 tabletRfl: 0 (Patient not taking: Reported on 05/30/2023) methocarbamol (ROBAXIN) 500 mg tabletTake by mouth.Disp: Rfl: (Patient not taking: Reported on 05/30/2023) nabumetone (RELAFEN) 750 mg tabletDisp: Rfl: (Patient not taking: Reported on 05/30/2023) Condoms Latex Lubricated (CONDOMS-NATALIE LUBRICATED) Misc DeviUse one condom before and during every act of intercourseDisp: 12 DeviceRfl: 1 (Patient not taking: Reported on 05/30/2023) FAMILY HISTORY Problem Relation Age of Onset other (CARIDAD) Mother Heart Father No Known Problems Half-brother other (Multiple sclerosis) Maternal Grandmother Cancer Maternal Grandfather Stomach cancer'. Diabetes Maternal Grandfather Heart Maternal Grandfather Hypertension Maternal Grandfather Prostate Cancer Maternal Grandfather Emphysema Paternal Grandfather Hypertension Maternal Uncle Lipids Maternal Uncle Social History Tobacco Use Smoking status: Every Day Packs/day: 0.25 Years: 3.00 Additional pack years: 0.00 Total pack years: 0.75 Types: Cigarettes Smokeless tobacco: Never Vaping Use Vaping Use: current everyday user Substances: Nicotine Substance Use Topics Alcohol use: Yes Comment: Seldom Drug use: No BP 124/80 Pulse 100 Temp 37.2 ?C (99 ?F) Resp 20 Wt 90.8 kg (200 lb 3.2 oz) LMP 11/14/2019 (Approximate) SpO2 98% BMI 32.81 kg/m? Review of Systems Constitutional: Negative for chills, fever and malaise/fatigue. HENT: Negative for congestion, ear discharge, ear pain, sinus pain and sore throat. Eyes: Negative for blurred vision, pain, discharge and redness. Respiratory: Negative for cough, hemoptysis, sputum production, shortness of breath, wheezing and stridor. Cardiovascular: Negative for chest pain. Gastrointestinal: Negative for abdominal pain, diarrhea, nausea and vomiting. Musculoskeletal: Positive for falls and joint pain. Negative for back pain, myalgias and neck pain. Skin: Negative for itching and rash. Neurological: Negative for dizziness and headaches. Objective Physical Exam Constitutional: General: She is not in acute distress. Appearance: She is not toxic-appearing. HENT: Head: Normocephalic. Nose: Nose normal. Eyes: Pupils: Pupils are equal, round, and reactive to light. Cardiovascular: Rate and Rhythm: Normal rate. Pulmonary: Effort: Pulmonary effort is normal. No respiratory distress. Musculoskeletal: Cervical back: Normal range of motion. Left upper leg: Normal. Left knee: Ecchymosis present. No swelling, deformity, effusion or erythema. Normal range of motion. Tenderness present over the medial joint line. Left lower leg: Normal. Comments: 2-3 (more content not included)... [facility] 03-15-2023 Note HNO ID: [id number] Author: Claudia Hargrove RN Service: ? Author Type: ? Type: Progress Notes Filed: 03/15/2023 4:13 PM Note Text: Patient identified by name and date of . Sandie Jones is here for a Depo Provera injection. Patient brought medication. Date last injected: overdue-negative test Depo-Provera, 150 mg, administered IM right upper quadrant gluteus, Lot # [id number], expiration date 02/03/2027. Depo-Provera was given without incident. Date of last menses: Patient's last menstrual period was 11/14/2019 (approximate). Irregular bleeding - No Menses ceased - Yes STD prevention discussed: Yes Patient instructed to return to clinic on 12 weeks. [email or web address]/contrac eption/Depo-Provera%20dosing%20c alendar.pdf Provider Dr. Penny was present in office at time of injection. Claudia Hargrove RN [facility] 03-15-2023 History of Presen t illness Narrative Patient identified by name and date of . Sandie Jones is here for a Depo Provera injection. Patient brought medication. Date last injected: overdue-negative test Depo-Provera, 150 mg, administered IM right upper quadrant gluteus, Lot # [id number], expiration date 02/03/2027. Depo-Provera was given without incident. Date of last menses: Patient's last menstrual period was 11/14/2019 (approximate). Irregular bleeding - No Menses ceased - Yes STD prevention discussed: Yes Patient instructed to return to clinic on 12 weeks. [email or web address]://[email or web address] Security.net/clinic/contrac eption/Depo-Provera%20dosing%20c alekolton.pdf Provider Dr. Penny was present in office at time of injection. Claudia Hargrove RN documented in this encounter [facility] 12-07-2022 Miscellaneous Notes [facility] called to request Depo RX. Patient has a nurse visit scheduled tomorrow. CAM order also pending. Requested Prescriptions Pending Prescriptions Disp Refills medroxyPROGESTERone (DEPO-PROVERA) 150 mg/mL 1 mL 3 Sig: Inject 1 mL intramuscularly every 12 weeks. medroxyPROGESTERone 150 mg injection (DEPO-PROVERA) Pratima Carmona RN documented in this encounter [facility] 09-18-2022 Hospital Discharg e instructions Patient Education [...] temperature. Use toothpaste made for sensitive teeth. Nichols gently up and down instead of sideways. Brushing sideways can wear away root surfaces if they are exposed. If your tooth is chipped or cracked, or if there is a large open cavity, put oil of cloves directly on the tooth to relieve pain. You can buy oil of cloves at drugstores. Some pharmacies carry an bqhn-zwj-mxqohvx toothache kit. This contains a paste that you can put on the exposed tooth to make it less sensitive. Put a cold pack on your jaw over the sore area to help reduce pain. You may use hifn-yda-ecupxoh medicine to ease pain, unless your doctor [...] healthcare provider Pus drains from the tooth [phone] [employer]. [address] [place] [address]. All rights reserved. This information is not intended as a substitute for professional medical care. Always follow your healthcare professional's instructions. Follow Up Care 09/18/2022 18:27:29 With:your dentist Address: When:2-4 days [facility] 09-18-2022 Note Discharge Instructions Thank you for allowing [facility] to assist you with your healthcare needs. [...] temperature. Use toothpaste made for sensitive teeth. Nichols gently up and down instead of sideways. Brushing sideways can wear away root surfaces if they are exposed. If your tooth is chipped or cracked, or if there is a large open cavity, put oil of cloves directly on the tooth to relieve pain. You can buy oil of cloves at drugstores. Some pharmacies carry an pjwp-hbs-uvedtmn toothache kit. This contains a paste that you can put on the exposed tooth to make it less sensitive. Put a cold pack on your jaw over the sore area to help reduce pain. You may use crxv-knq-fevhjfj medicine to ease pain, unless your doctor [...] healthcare provider Pus drains from the tooth [phone] [employer]. [address] [place] [address], [place] [address]. All rights reserved. This information is not intended as a substitute for professional medical care. Always follow your healthcare professional's instructions. Additional Information VACCINATE! IT SAVES LIVES! Members of the community who have not yet received the COVID-19 vaccine and would like to receive it can visit one of [facility] vaccine clinics. There are many vaccine clinic locations within the [facility]. For locations and available times, please visit www.gettheshot.coronavirus.[place]. gov/. It is important to note that some COVID mobile vaccine clinics are held outdoors and may be canceled in rainy or stormy conditions. To learn more about pediatric vaccinations (ages 5-11), we invite you to visit the [facility] webpage. https://www.MD Synergy Solutionss.org/p ages/5845-Agcrz-Iiazroshlui-Freq oqldex-Wghvx-Uzyfesomy.html To learn more about the COVID-19 vaccine, we invite you to visit the CDC website for a list of frequently asked questions. https://www.cdc.gov/coronavirus/ 2019-ncov/vaccines/faq.html [facility] Patient Portal Access Instructions: Stay connected with your healthcare team and access your personal medical information anytime with the [facility] Patient Portal. If you would like a full copy of your medical records please contact the [facility] Medical Records Department Sunday through Sunday between 8a.m. and 4:30p.m. Please follow the directions below to access the portal: 1.Access the email account you provided upon registration to the hospital.2.Look for an invitation email from [facility].3.Open the email and access the invitation link: Accept Invitation to [facility]4.Fill in the required artegaa to create your account. Sign into [email or web address] with your username and password that you [...] you will allow to register on the [facility] Patient Portal for access to your information. You can also access the [facility] Patient Portal on the [employer] esdras. Simply click on Health Records under Health Data and then click on the [employer] logo. HOW TO SAFELY DISPOSE OF PRESCRIPTION [...] Call your local pharmacy or go to [email or web address]://[email or web address] Medical.[email or web address] to find one close to you.3.Make use of household items: Use cat litter or old coffee grounds to dispose medications if other options are not available. Mix your drugs with these household products, seal them in an airtight container and throw it into the garbage. Call [facility]: [phone] to be sure your drugs can be [...] aware that I should contact my doctor. Patient/Manager Organizational Signature: Date/Time: Relationship to Patient: Witness Name/Signature: Date/Time: [facility] 09-05-2022 Note HNO ID: [id number] Author: Rebecca Alexis LPN Service: ? Author [...] IM left upper quadrant gluteus, Lot # [id number], expiration date 09/03/26. Depo-Provera was given without [...] See medication note for lot#, exp date. [facility] 09-05-2022 Note HNO ID: [id number] Author: Yaquelin Crawford APRN.PLASTER BLOCK LAYER Service: ? Author Type: Nurse Practitioner Type: [...] L1 SAB0 IAB0 Ectopic0 Multiple0 Live Births1 Freight Checker History LMP: 11/14/2019 (Approximate), Drug Induced Amenorrhea Age at Menarche: Age at First : Age at Menopause: Freight Checker History Comments: Sexual Activity: Yes; Male Contraception: [...] HCG QUAL UR B/O- negative Yaquelin Crawford APRN.PLASTER BLOCK LAYER Medical Decision Making: (more content not included)... [facility] 09-05-2022 Instructions Rebecca Alexis LPN - 09/05/2022 [...] a copy. 09/05/2022 documented in this encounter [facility] 09-05-2022 History of Presen t illness Narrative [...] IM left upper quadrant gluteus, Lot # [id number], expiration date 09/03/26. Depo-Provera was given without incident. Date of last menses: Patient's last menstrual period was 11/14/2019 (approximate). Irregular bleeding - No Menses ceased - Yes STD prevention discussed: Yes Patient instructed to return to clinic on 12 weeks+/- 5 days. [email or web address]/clinic/contrac eption/Depo-Provera%20dosing%20c kalani.pdf Provider Yaquelin Crawford CNP was present in [...] L1 SAB0 IAB0 Ectopic0 Multiple0 Live Births1 Freight Checker History LMP: 11/14/2019 (Approximate), Drug Induced Amenorrhea Age at Menarche: Age at First : Age at Menopause: Freight Checker History Comments: Sexual Activity: Yes; Male Contraception: [...] HCG QUAL UR B/O- negative Yaquelin Crawford APRN.ANNE Medical Decision Making: Problems: Low: Acute, uncomplicated illness or injury Data: Unique test(s) ordered: 2 Risk: Low: Low risk from testing/treatment Moderate: Drug management Medical Decision Making Level: 3 - Low documented in this encounter [facility] 07-25-2022 Hospital Discharg e instructions Patient Education [...] temperature. Use toothpaste made for sensitive teeth. Nichols gently up and down instead of sideways. Brushing sideways can wear away root surfaces if they are exposed. If your tooth is chipped or cracked, or if there is a large open cavity, put oil of cloves directly on the tooth to relieve pain. You can buy oil of cloves at drugstores. Some pharmacies carry an tlno-cka-ykjfpbc toothache kit. This contains a paste that you can put on the exposed tooth to make it less sensitive. Put a cold pack on your jaw over the sore area to help reduce pain. You may use dvkb-slx-gwrqoxo medicine to ease pain, unless your doctor [...] healthcare provider Pus drains from the tooth [phone] [employer]. [address] [place] [address]. All rights reserved. This information is not intended as a substitute for professional medical care. Always follow your healthcare professional's instructions. Follow Up Care 07/25/2022 18:34:57 With:Follow-up with your dentist Address: When:2-4 days Comments:Schedule appointment as soon as possible With:ROSA DU MD Address: [address] [place] [id number] [phone] When:2-4 days [facility] 07-25-2022 Emergency department Discharge summary Discharge Instructions Thank you for allowing [facility] to assist you with your healthcare needs. [...] DU MD When Within 2-4 days Where: [address] [place] [address] [place] [address] [phone] Allergies naproxen Medications Please ask your primary [...] temperature. Use toothpaste made for sensitive teeth. Nichols gently up and down instead of sideways. Brushing sideways can wear away root surfaces if they are exposed. If your tooth is chipped or cracked, or if there is a large open cavity, put oil of cloves directly on the tooth to relieve pain. You can buy oil of cloves at drugstores. Some pharmacies carry an inkv-mlu-cgsuyif toothache kit. This contains a paste that you can put on the exposed tooth to make it less sensitive. Put a cold pack on your jaw over the sore area to help reduce pain. You may use jfej-pkq-qbymmmd medicine to ease pain, unless your doctor [...] healthcare provider Pus drains from the tooth [phone] [employer]. [address] [place] [address]. All rights reserved. This information is not intended as a substitute for professional medical care. Always follow your healthcare professional's instructions. Additional Information VACCINATE! IT SAVES LIVES! Members of the community who have not yet received the COVID-19 vaccine and would like to receive it can visit one of [facility] vaccine clinics. There are many vaccine clinic locations within the [facility]. For locations and available times, please visit www.gettheshot.coronavirus.[place]. gov/. It is important to note that some COVID mobile vaccine clinics are held outdoors and may be canceled in rainy or stormy conditions. To learn more about pediatric vaccinations (ages 5-11), we invite you to visit the [facility] webpage. https://www.[facility].org/p ages/1153-Qzeri-Ltskjdgjgic-Freq mglcfs-Knihl-Txttfhjsh.html To learn more about the COVID-19 vaccine, we invite you to visit the CDC website for a list of frequently asked questions. https://www.cdc.gov/coronavirus/ 2019-ncov/vaccines/faq.html [facility] Patient Portal Access Instructions: Stay connected with your healthcare team and access your personal medical information anytime with the [facility] Patient Portal. If you would like a full copy of your medical records please contact the [facility] Medical Records Department Sunday through Sunday between 8a.m. and 4:30p.m. Please follow the directions below to access the portal: 1.Access the email account you provided upon [facility] to [facility].2.Look for an invitation email from [facility].3.Open the email and access the invitation link: Accept Invitation to [facility]4.Fill in the required arteaga to create your account. Sign into [email or web address] with your username and password that you [...] you will allow to register on the [employer] Patient Portal for access to your information. You can also access the [facility] Patient Portal on the [employer]. Simply click on Health Records under [employer] Data and then click on the [employer] logo. HOW TO SAFELY DISPOSE OF PRESCRIPTION [...] Call your local pharmacy or go to http://Ionix Medical.Diagnostic Hybrids/[email or web address] to find one close to you.3.Make use of household items: Use cat litter or old coffee grounds to dispose medications if other options are not available. Mix your drugs with these household products, seal them in an airtight container and throw it into the garbage. Call [facility]: [phone] to be sure your drugs can be [...] aware that I should contact my doctor. Patient/Manager Organizational Signature: Date/Time: Relationship to Patient: Witness Name/Signature: Date/Time: [facility] 07-25-2022 Emergency department Discharge summary Discharge Instructions Thank you for allowing [facility] to assist you with your healthcare needs. [...] Within 2-4 days Where: [address] [place] [address]- [phone] Allergies naproxen Medications Please ask your primary [...] temperature. Use toothpaste made for sensitive teeth. Nichols gently up and down instead of sideways. Brushing sideways can wear away root surfaces if they are exposed. If your tooth is chipped or cracked, or if there is a large open cavity, put oil of cloves directly on the tooth to relieve pain. You can buy oil of cloves at drugstores. Some pharmacies carry an bdzv-qoc-vikiqwt toothache kit. This contains a paste that you can put on the exposed tooth to make it less sensitive. Put a cold pack on your jaw over the sore area to help reduce pain. You may use digh-hyf-xwbagxp medicine to ease pain, unless your doctor [...] healthcare provider Pus drains from the tooth 2874-7305 [employer]. [address] [place] [address]. All rights reserved. This information is not intended as a substitute for professional medical care. Always follow your healthcare professional's instructions. Additional Information VACCINATE! IT SAVES LIVES! Members of the community who have not yet received the COVID-19 vaccine and would like to receive it can visit one of [facility] vaccine clinics. There are many vaccine clinic locations within the [facility]. For locations and available times, please visit www.gettheshot.coronavirus.[place]. gov/. It is important to note that some COVID mobile vaccine clinics are held outdoors and may be canceled in rainy or stormy conditions. To learn more about pediatric vaccinations (ages 5-11), we invite you to visit the [facility] webpage. https://www.MD [employer]s.org/p ages/4564-Axsoh-Rqtwlcsvajg-Freq ckjwvl-Gvyfe-Idyftdszi.html To learn more about the COVID-19 vaccine, we invite you to visit the CDC website for a list of frequently asked questions. https://www.cdc.gov/coronavirus/ 2019-ncov/vaccines/faq.html [facility] Patient Portal Access Instructions: Stay connected with your healthcare team and access your personal medical information anytime with the [facility] Patient Portal. If you would like a full copy of your medical records please contact the [facility] Medical Records Department Sunday through Sunday between 8a.m. and 4:30p.m. Please follow the directions below to access the portal: 1.Access the email account you provided upon registration to the [facility].2.Look for an invitation email from [facility].3.Open the email and access the invitation link: Accept Invitation to [facility]4.Fill in the required arteaga to create your account. Sign into [email or web address] with your username and password that you [...] you will allow to register on the [facility] Patient Portal for access to your information. You can also access the [facility] Patient Portal on the [employer]. com esdras. Simply click on Health Records under Health Data and then click on the [employer] logo. HOW TO SAFELY DISPOSE OF PRESCRIPTION [...] Call your local pharmacy or go to http://I[facility] Medical.Diagnostic Hybrids/9R6Yv0s to find one close to you.3.Make use of household items: Use cat litter or old coffee grounds to dispose medications if other options are not available. Mix your drugs with these household products, seal them in an airtight container and throw it into the garbage. Call [facility]: [phone] to be sure your drugs can be [...] aware that I should contact my doctor. Patient/Manager Organizational Signature: Date/Time: Relationship to Patient: Witness Name/Signature: Date/Time: [facility] 06-10-2022 Hospital Discharg e instructions Patient [...] you feel better and your symptoms lessen. [phone] [employer]. [address] [place] [address], [place] [address]. All rights reserved. This information is not intended as a substitute for professional medical care. Always follow your healthcare professional's instructions. Follow Up Care 06/10/2022 02:45:15 With:ROSA DU MD Address: [facility] [place] [address]- [phone] When:2-4 days [facility] 06-10-2022 Emergency department Discharge summary Discharge Instructions Thank you for allowing [facility] to assist you with your healthcare needs. The following is important discharge information regarding your hospital visit. Diagnosis from Today's Visit Vomiting Vomiting What to Do Next Instructions from Your Care Team No qualifying data available. Post Acute Orders No qualifying data available. You Need to Schedule the Following Appointments Follow Up with ROSA DU MD When Within 2-4 days Where: [address] [place] [address]- [phone] Allergies naproxen Medications Please ask your primary [...] To use ondansetron oral soluble film (strip) (Zdenyslenz): Keep the strip in the foil pouch [...] may report side effects to FDA at 0-405-KMO-8871. What other drugs will affect ondansetron? Ondansetron [...] interact with ondansetron. This includes prescription and jfiq-bkp-wrdesak medicines, vitamins, and herbal products. Give a [...] to ensure that the information provided by [employer]. ('Med fusionum') is accurate, up-to-date, and complete, but no guarantee is made to that effect. Drug information contained herein may be time sensitive. [employer] information has been compiled for use by healthcare practitioners and consumers in the [place] and therefore [employer] does not warrant that uses outside of the [place] are appropriate, unless specifically indicated otherwise. [employer]'s drug information does not endorse drugs, diagnose patients or recommend therapy. [employer] drug information is an informational resource designed [...] effective or appropriate for any given patient. [employer] does not assume any responsibility for any aspect of healthcare administered with the aid of information [employer] provides. The information contained herein is not intended to cover all possible uses, directions, precautions, warnings, drug interactions, allergic reactions, or adverse effects. If you have questions about the drugs you are taking, check with your doctor, nurse or pharmacist. Copyright 9556-6926 [employer]. Version: 13.01. Revision Date: 02/25/2016. Education Materials [...] you feel better and your symptoms lessen. 8078-4876 [employer]. [address] [place] [address]. All rights reserved. This information is not intended as a substitute for professional medical care. Always follow your healthcare professional's instructions. Additional Information VACCINATE! IT SAVES LIVES! Members of the community who have not yet received the COVID-19 vaccine and would like to receive it can visit one of [facility] vaccine clinics. There are many vaccine clinic locations within the [facility]. For locations and available times, please visit www.gettheshot.coronavirus.[place]. org. It is important to note that some COVID mobile vaccine clinics are held outdoors and may be canceled in rainy or stormy conditions. To learn more about pediatric vaccinations (ages 5-11), we invite you to visit the [facility] webpage. https://www.[facility].org/p ages/7139-Jcquh-Guimpugsodt-Freq wovrzw-Hjogo-Ayayrncni.html To learn more about the COVID-19 vaccine, we invite you to visit the [facility] website for a list of frequently asked questions. https://keyshawn.org/assets/Patie kbz-hpj-Xuwblfzt/wwggu-Uvngjpz-B requently_Asked-Questions.pdf [facility] Patient Portal Access Instructions: Stay connected with your healthcare team and access your personal medical information anytime with the [facility] Patient Portal. If you would like a full copy of your medical records please contact the [facility] Medical Records Department Sunday through Sunday between 8a.m. and 4:30p.m. Please follow the directions below to access the portal: 1.Access the email account you provided upon registration to [facility].2.Look for an invitation email from [facility].3.Open the email and access the invitation link: Accept Invitation to [facility]4.Fill in the required arteaga to create your account. Sign into [email or web address] with your username and password that you [...] you will allow to register on the [facility] Patient Portal for access to your information. You can also access the [facility] Patient Portal on the [employer]. com esdras. Simply click on Health Records under [...] Call your local pharmacy or go to http://bit.Diagnostic Hybrids/[email or web address] to find one close to you.3.Make use of household items: Use cat litter or old coffee grounds to dispose medications if other options are not available. Mix your drugs with these household products, seal them in an airtight container and throw it into the garbage. Call [facility]: [phone] to be sure your drugs can be [...] aware that I should contact my doctor. Patient/Manager Organizational Signature: Date/Time: Relationship to Patient: Witness Name/Signature: Date/Time: [facility] Keyshawnvinicius Ventura 05-24-2022 History of Presen t illness Narrative hc Patient identified by name and date of . Sandie Jones is here for a Depo Provera injection. Patient brought medication. Date last injected: out of range - negative test Depo-Provera, 150 mg, administered IM right upper quadrant gluteus, Lot # [id number], expiration date 01/04/2026. Depo-Provera was given without incident. Date of last menses: Patient's last menstrual period was 11/14/2019 (approximate). Irregular bleeding - No Menses ceased - Yes STD prevention discussed: Yes Patient instructed to return to clinic in 12 weeks. [email or web address] [email or web address]/Depo-Provera%20dosing%20c alendar.pdf Provider Love Penny MD was present in office at time of injection. Nette Hernandez RN documented in this encounter [facility] 01-29-2022 Hospital Discharg e instructions Patient Education [...] or swelling over your back or spine 3458-7190 [employer]. [address] [place] [address]. All rights reserved. This information is not intended as a substitute for professional medical care. Always follow your healthcare professional's instructions. Follow Up Care 01/29/2022 15:23:42 With:Your pain management doctor Address: When:2-4 days With:ROSA DU MD Address: [address] [place] [address] [place] [address] [phone] When:2-4 days With:Go to emergency room if symptoms worsen Address:Unknown When:2-4 days [facility] 01-29-2022 Emergency department Discharge summary Discharge Instructions Thank you for allowing [facility] to assist you with your healthcare needs. [...] DU MD When Within 2-4 days Where: [address] [place] [address] [phone] Follow Up with Go to emergency room [...] or swelling over your back or spine [phone] [employer]. [address] [place] [address]. All rights reserved. This information is not intended as a substitute for professional medical care. Always follow your healthcare professional's instructions. Additional Information VACCINATE! IT SAVES LIVES! Members of the community who have not yet received the COVID-19 vaccine and would like to receive it can visit one of [facility] vaccine clinics. There are many vaccine clinic locations within the [facility]. For locations and available times, please visit www.[email or web address]. org. It is important to note that some COVID mobile vaccine clinics are held outdoors and may be canceled in rainy or stormy conditions. To learn more about pediatric vaccinations (ages 5-11), we invite you to visit the [facility] webpage. https://www.[facility].org/p ages/8370-Gwmyj-Bizuzeflfli-Freq skayko-Fyfmp-Rzuvyeipl.html To learn more about the COVID-19 vaccine, we invite you to visit the [facility] website for a list of frequently asked questions. [email or web address] cct-rdi-[email or web address]/byefm-Cpqrmgn-R requently_[email or web address].pdf [facility] Patient Portal Access Instructions: Stay connected with your healthcare team and access your personal medical information anytime with the [facility] Patient Portal. If you would like a full copy of your medical records please contact the [facility] Medical Records Department Sunday through Sunday between 8a.m. and 4:30p.m. Please follow the directions below to access the portal: 1.Access the email account you provided upon registration to the hospital.2.Look for an invitation email from [facility].3.Open the email and access the invitation link: Accept Invitation to [facility].Fill in the required arteaga to create your account. Sign into [email or web address] with your username and password that you [...] you will allow to register on the [facility] Patient Portal for access to your information. You can also access the [facility] Patient Portal on the Accelalox. Simply click on Health Records under Health [...] Call your local pharmacy or go to [email or web address] Medical.[email or web address] [email or web address] to find one close to you.3.Make use of household items: Use cat litter or old coffee grounds to dispose medications if other options are not available. Mix your drugs with these household products, seal them in an airtight container and throw it into the garbage. Call [facility]: [phone] to be sure your drugs can be [...] aware that I should contact my doctor. Patient/Manager Organizational Signature: Date/Time: Relationship to Patient: Witness Name/Signature: Date/Time: [facility] 01-06-2022 History of Presen t illness Narrative Patient identified by name and date of . Sandie Jones is here for a Depo Provera injection. Patient brought medication. Date last injected: out of range - negative test Depo-Provera, 150 mg, administered IM left upper quadrant gluteus, Lot # [id number], expiration date 07/2023. Depo-Provera was given without incident. Date of last menses: Patient's last menstrual period was 11/14/2019 (approximate). Irregular bleeding - No Menses ceased - No STD prevention discussed: Yes Patient instructed to return to clinic IN 12 WEEKS. [email or web address]/contrac eption/Depo-Provera%20dosing%20c alendar.pdf Provider Will Jamison was present in office at time of injection. Radha lEi LPN documented in this encounter [facility] 12-07-2021 Hospital Discharg e instructions Patient Education [...] or swelling over your back or spine 7214-5382 [employer]. [address] [place] [address], [place] [address]. All rights reserved. This information is not [...] are taking other medicines. You may use enrx-afv-tuunvpk medicine as directed on the bottle to [...] Numbness in the groin or genital area 7024-9261 [employer]. [address] [place] [address], [place] [address]. All rights reserved. This information is not intended as a substitute for professional medical care. Always follow your healthcare professional's instructions. Follow Up Care 12/07/2021 17:44:52 With:ROSA DU MD Address: [address] [place] [address] [place], [place] [phone] [phone] When:Within 2 Day(s) Comments:Follow-up with your doctor as scheduled on Sunday.Position of comfort, limit activity as tolerated.Use ice or cool compresses to the painful area for the next 2 days and warm, moist heat thereafter.Continue ibuprofen and Tylenol for pain as needed.Use muscle relaxants (cyclobenzaprine) as prescribed for muscle pain and spasm.Use steroid (prednisone) as prescribed for inflammation.Return to ED if symptoms worsen. [facility] 12-07-2021 Note Discharge Instructions Thank you for allowing [facility] to assist you with your healthcare needs. [...] Return to ED if symptoms worsen. Where: [address] [place] [address] [place] [address] [phone] Allergies naproxen Medications Please ask your primary [...] or swelling over your back or spine 7085-1540 [employer]. [address] [place] [address]. All rights reserved. This information is not [...] are taking other medicines. You may use izle-odx-scfbxdk medicine as directed on the bottle to [...] Numbness in the groin or genital area 4548-0318 [employer]. [address] [place] [address]. All rights reserved. This information is not intended as a substitute for professional medical care. Always follow your healthcare professional's instructions. Additional Information VACCINATE! IT SAVES LIVES! Members of the community who have not yet received the COVID-19 vaccine and would like to receive it can visit one of [facility] vaccine clinics. There are many vaccine clinic locations within the [facility]. For locations and available times, please visit www.[email or web address].[place]. org. It is important to note that some COVID mobile vaccine clinics are held outdoors and may be canceled in rainy or stormy conditions. To learn more about pediatric vaccinations (ages 5-11), we invite you to visit the [facility] webpage. https://www.akronEquallogics.org/p ages/6073-Kwpfj-Aupzaeeqfwp-Freq xmqafx-Dtiag-Ghwfmwcvs.html To learn more about the COVID-19 vaccine, we invite you to visit the [facility] website for a list of frequently asked questions. [email or web address] ltj-dbk-[email or web address]/nbiqs-Yvgztsw-I requently_Asked-Questions.pdf [facility] Patient Portal Access Instructions: Stay connected with your healthcare team and access your personal medical information anytime with the [facility] Patient Portal. If you would like a full copy of your medical records please contact the [facility] Medical Records Department Sunday through Sunday between 8a.m. and 4:30p.m. Please follow the directions below to access the portal: 1.Access the email account you provided upon registration to the [facility].2.Look for an invitation email from [facility].3.Open the email and access the invitation link: Accept Invitation to [facility]4.Fill in the required arteaga to create your account. Sign into [email or web address] with your username and password that you [...] you will allow to register on the [facility] Patient Portal for access to your information. You can also access the [facility] Patient Portal on the Accelalox. Simply click on Health Records under Health Data and then click on the [facility] logo. HOW TO SAFELY DISPOSE OF PRESCRIPTION [...] Call your local pharmacy or go to http://Ionix Medical.Diagnostic [email or web address]/4N6Tv7p to find one close to you.3.Make use of household items: Use cat litter or old coffee grounds to dispose medications if other options are not available. Mix your drugs with these household products, seal them in an airtight container and throw it into the garbage. Call [facility]: [phone] to be sure your drugs can be [...] aware that I should contact my doctor. 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 [address] [place] [address], [place] [address]. All rights reserved. This information is not intended as a substitute for professional medical care. Always follow your healthcare professional's instructions. Follow Up Care 11/20/2021 10:01:24 With:ROSA DU MD Address: [address] [place] [address] [place] [address]- [phone] When:2-4 days [facility] 11-20-2021 Emergency department Discharge summary Discharge Instructions Thank you for allowing [facility] to assist you with your healthcare needs. The following is important discharge information regarding your hospital visit. Diagnosis from Today's Visit Cellulitis Skin problem What to Do Next Instructions from Your Care Team No qualifying data available. Post Acute Orders No qualifying data available. You Need to Schedule the Following Appointments Follow Up with ROSA DU MD When Within 2-4 days Where: [address] [place] [address] [place] [address]- [phone] Allergies naproxen Medications Please ask your primary [...] or retail pharmacies. Medication Leaflets doxycycline (oral/injection) (DOX crystal dejesus) Acticlate, Adoxa, Alodox, Avidoxy, Doryx, Mondoxyne [...] bone and tooth development in a nursing infant. Do not breastfeed while you are taking doxycycline. Doxycycline can cause permanent yellowing or graying of the teeth in children younger than 8 years old. Children should use doxycycline only in cases of severe or life-threatening conditions such as anthrax or [place] spotted fever. The benefit of treating a [...] may report side effects to FDA at 8-422-RMI-4906. What other drugs will affect doxycycline? Sometimes it is not safe to use certain medications at the same time. Some drugs can affect your blood levels of other drugs you take, which may increase side effects or make the medications less effective. Other drugs may affect doxycycline, including prescription and ciqc-drl-sjbiwvi medicines, vitamins, and herbal products. Tell your [...] to ensure that the information provided by [employer]. ('Multum') is accurate, up-to-date, and complete, but no guarantee is made to that effect. Drug information contained herein may be time sensitive. [employer] information has been compiled for use by healthcare practitioners and consumers in the [place] and therefore [employer] does not warrant that uses outside of the [place] are appropriate, unless specifically indicated otherwise. [employer] drug information does not endorse drugs, diagnose patients or recommend therapy. [employer] drug information is an informational resource designed [...] effective or appropriate for any given patient. [employer] does not assume any responsibility for any aspect of healthcare administered with the aid of information [employer] provides. The information contained herein is not intended to cover all possible uses, directions, precautions, warnings, drug interactions, allergic reactions, or adverse effects. If you have questions about the drugs you are taking, check with your doctor, nurse or pharmacist. Copyright 0106-1776 [employer]. Version: 21.04. Revision Date: 03/10/2020. Education Materials [...] or higher after 2 days on antibiotics 6135-1167 [employer]. [address] [place] [address]. All rights reserved. This information is not intended as a substitute for professional medical care. Always follow your healthcare professional's instructions. Additional Information VACCINATE! IT SAVES LIVES! Members of the community who have not yet received the COVID-19 vaccine and would like to receive it can visit one of [facility] vaccine clinics. There are many vaccine clinic locations within the [facility]. For locations and available times, please visit www.gettheshot.[email or web address].[place]. org. It is important to note that some COVID mobile vaccine clinics are held outdoors and may be canceled in rainy or stormy conditions. To learn more about pediatric vaccinations (ages 5-11), we invite you to visit the [facility] webpage. https://www.[facility].org/p ages/1942-Fbtch-Qflngabftad-Freq qytjmy-Zzlcw-Dscojokzy.html To learn more about the COVID-19 vaccine, we invite you to visit the [facility] website for a list of frequently asked questions. [email or web address]://[email or web address]/assets/Patie zkr-vuj-Asckxcec/ersub-Kfdtguq-C requently_Asked-Questions.pdf [facility] Patient Portal Access Instructions: Stay connected with your healthcare team and access your personal medical information anytime with the [facility] Patient Portal. If you would like a full copy of your medical records please contact the [facility] Medical Records Department Sunday through Sunday between 8a.m. and 4:30p.m. Please follow the directions below to access the portal: 1.Access the email account you provided upon registration to [facility].2.Look for an invitation email from [facility].3.Open the email and access the invitation link: Accept Invitation to [facility]4.Fill in the required arteaga to create your account. Sign into [email or web address] with your username and password that you [...] you will allow to register on the [facility] Patient Portal for access to your information. You can also access the [facility] Patient Portal on the Tiantian. com esdras. Simply click on Health Records under [...] Call your local pharmacy or go to http://bit.Diagnostic Hybrids/3P8Fs7s to find one close to you.3.Make use of household items: Use cat litter or old coffee grounds to dispose medications if other options are not available. Mix your drugs with these household products, seal them in an airtight container and throw it into the garbage. Call [facility]: [phone] to be sure your drugs can be [...] aware that I should contact my doctor. 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 You may use utgg-flt-ezsqlxv pain medicine (NSAIDS or nonsteroidal anti-inflammatory drugs) [...] or is irritated You re-injure your ankle 6528-2505 [employer]. [address] [place] [address]. All rights reserved. This information is not intended as a substitute for professional medical care. Always follow your healthcare professional's instructions. Follow Up Care 10/10/2021 17:17:00 With:ROSA DU MD Address: [address] [place] [address] [phone] When:2-4 days [facility] 09-06-2021 History of Presen t illness [...] L1 SAB0 IAB0 Ectopic0 Multiple0 Live Births1 Freight Checker History LMP: 11/14/2019 (Approximate), Drug Induced Amenorrhea Age at Menarche: Age at First : Age at Menopause: Freight Checker History Comments: Sexual Activity: Yes; No partner [...] external genitalia normal, normal Bartholin's glands, urethra, [place]'s glands, no vulvar lesions, no cervical lesions, [...] Angelina Carlson APRN.ANNE documented in this encounter [facility] 09-06-2021 Instructions Angelina Carlson APRN.ANNE - 09/06/2021 [...] glands, joint and muscle pain, weakness and Guillain-Taft syndrome. 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 The [employer] [place] [employer] estimated that in 2005 there [...] the cervix contains abnormal cells.A diagnosis of SREE 3 means there are severely abnormal cervical [...] still be present. documented in this encounter [facility] 09-05-2021 Hospital Discharg e instructions Patient Education [...] injured area. Frequent bruising for unknown reasons 0598-8044 [employer]. [address] [place] [address]. All rights reserved. This information is not intended as a substitute for professional medical care. Always follow your healthcare professional's instructions. Follow Up Care 09/05/2021 17:50:11 With:ROSA DU MD Address: [address] [place] [address] [phone] When:2-4 days [facility] 08-23-2021 History of Presen t illness Narrative Patient identified by name and date of . Sandie Jones is here for a Depo Provera injection. Patient brought medication. Date last injected: 06/01/2021 Depo-Provera, 150 mg, administered IM rightupper quadrant gluteus, Lot # [id number], expiration date 12/03/2022. Depo-Provera was given without incident. Date of last menses: Patient's last menstrual period was 11/14/2019 (approximate). Irregular bleeding - No Menses ceased - Yes STD prevention discussed: Yes Patient instructed to return to clinic on 12 weeks [email or web address]/contrac eption/Depo-Provera%20dosing%20c alekolton.pdf Provider Yaquelin Crawford. was present in office at time of injection. Haydee Lord RN documented in this encounter [facility] 06-25-2021 Hospital Discharg e instructions Patient Education [...] Hold for 2 seconds, then slowly lower. 7465-1395 [employer]. [address] [place] [address], [place] [address]. All rights reserved. This information is not [...] or legs Numbness in the groin area 7788-5791 [employer]. [address] [place] [address]. All rights reserved. This information is not intended as a substitute for professional medical care. Always follow your healthcare professional's instructions. Follow Up Care 06/25/2021 18:26:41 With:ROSA DU MD Address: [address] [place] [address] [place] [address] [phone] When:2-4 days [facility] Evaluation + Plan note No data available for this section [facility] Diagnosis Encounter for gynecological examination (general) (routine) without abnormal findings- Primary Need for prophylactic vaccination/inoculation against viral disease Need for prophylactic vaccination and inoculation against other viral diseases Genital herpes simplex, unspecified site [facility] Diagnosis Encounter for management and injection of depo-Provera- Primary Surveillance of other previously prescribed contraceptive method documented in this encounter [facility] note* Diagnosis Surveillance for Depo-Provera contraception- Primary Surveillance of other previously prescribed contraceptive method Encounter for management and injection of depo-Provera Surveillance of other previously prescribed contraceptive method documented in this encounter [facility] note* Diagnosis Acute cystitis with hematuria- Primary Acute cystitis Dysmenorrhea Encounter for surveillance of other contraceptive [facility] Diagnosis Encounter for management and injection of depo-Provera- Primary Surveillance of other previously prescribed contraceptive method [facility] No data available for this section [facility] Reason for visit Narrative* Outpatient Procedure (Routine) - Closed Specialty Diagnoses / Procedures Referred By Radha t Referred To Contact Radiology / [facility] Diagnoses Chronic viral hepatitis C us liver elastography, order to be faxed by beatriz doss.2 Procedures LIVER ELASTOGRAPHY W/O IMAG W/I&R US ELASTOGRAPHY Austin Casey MD [address] [place] [address] [place] [address] [place] [address] Referral ID Status Reason Start Date Expiration Date Visits Re quested Visits Authorized [id number] Closed 11/29/2022 05/06/2023 1 1 [facility] for visit Narrative* Outpatient Procedure (Routine) - Closed Specialty Diagnoses / Procedures Referred By Contnando t Referred To Contact Radiology / [facility] Diagnoses Chronic viral hepatitis C liver elastography, order stacy faxed, Procedures US ABDOMINAL REAL TIME W/IMAGE DOCUMENTATION US ABDOMEN COMPLETE Austin Casey MD [address] [place] [address] [address] [facility] [address] [address] Referral ID Status Reason Start Date Expiration Date Visits Re quested Visits Authorized [id number] Closed 11/29/2022 05/06/2023 1 1 [facility] Medications Administered Section Active Administered Medications - [...] FoundDocuments on File Type Date Recorded Patient Manager Organizational Expl anation Advance Directive(s) 05/19/2017 7:13 PM [...] or prosecute any alcohol or drug abuse patient.[facility] the event this information is protected by the Federal Confidentiality of Alcohol and Drug Abuse Patient Records regulations: The Federal rules restrict any use of the information to criminally investigate or prosecute any alcohol or drug abuse patient.[facility] Center[facility] the event this information is protected by the Federal Confidentiality of Alcohol and Drug Abuse Patient Records regulations: The Federal rules restrict any use of the information to criminally investigate or prosecute any alcohol or drug abuse patient.[facility] CenterIn the event this information is protected by the Federal Confidentiality of Alcohol and Drug Abuse Patient Records regulations: The Federal rules restrict any use of the information to criminally investigate or prosecute any alcohol or drug abuse patient.[facility] CenterIn the event this information is protected by the Federal Confidentiality of Alcohol and Drug Abuse Patient Records regulations: The Federal rules restrict any use of the information to criminally investigate or prosecute any alcohol or drug abuse patient.[facility] CenterIn the event this information is protected by the Federal Confidentiality of Alcohol and Drug Abuse Patient Records regulations: The Federal rules restrict any use of the information to criminally investigate or prosecute any alcohol or drug abuse patient.[facility] CenterIn the event this information is protected by the Federal Confidentiality of Alcohol and Drug Abuse Patient Records regulations: The Federal rules restrict any use of the information to criminally investigate or prosecute any alcohol or drug abuse patient.[facility] CenterIn the event this information is protected by the Federal Confidentiality of Alcohol and Drug Abuse Patient Records regulations: The Federal rules restrict any use of the information to criminally investigate or prosecute any alcohol or drug abuse patient.[facility] CenterIn the event this information is protected by the Federal Confidentiality of Alcohol and Drug Abuse Patient Records regulations: The Federal rules restrict any use of the information to criminally investigate or prosecute any alcohol or drug abuse patient.[facility] Reason for Visit (unrecogniz ed section and [...] content) Personnel Name: ROSA DU MD Address: [address] [place] [address] [place] [id number] Personnel Name: ROSA DU MD Address: [address] [place] [address] [place] [address]- Care Team Personnel Name: ROSA DU MD Member Role: Primary Care Physician Address: Address: [address] [place] [address] [place] [id number]- Name: DOROTA SZYMANSKI DO Position: Resident Member Role: Resident Address: Address: [address] [place] [address] ED Resident [address] Name: Janice Russo RN Position: ED RN Member Role: ED RN Name: DILCIA MAURER DO Position: ED Physician Member Role: Attending Physician Address: Address: [address] [place], [place] [address] [address]- Care Team Personnel Name: ROSA DU MD Member Role: Primary Care Physician Address: Address: [address] [place] [address] [place] [address]- Name: SAM MACIAS MD Position: ED Physician Member Role: Attending Physician Address: Address: [facility] [address] [place] [address] Care Team (unrecognized sect ion and content) Care Team Personnel Name: ROSA DU MD Member Role: Primary Care Physician Address: Address: [facility] [place] [id number]- Care Team Personnel Name: ROSA DU MD Member Role: Primary Care Physician Address: Address: [facility] [place] [id number]- Care Team Personnel Name: ROSA DU MD Member Role: Primary Care Physician Address: Address: [address] [place] [address] [place] [id number] Care Team Personnel Name: ROSA DU MD Member Role: Primary Care Physician Address: Address: [address] [place] [address] [place] [address]- Name: SAM MACIAS MD Position: ED Physician Member Role: Attending Physician Address: Address: [facility] [address] [place] [address]- INFORMATION SOURCE (unrecogn ized section and content) DATE CREATED AUTHOR AUTHOR'S ORGANIZ ATION 05/31/2023 [facility] FOR RECORDS PERTAINING TO PATIENTS WHO ARE [...] BE BASED ON THE PRIMARY CLINICAL RECORDS. [facility]. provides no warranty or guarantee of the accuracy or completeness of information in this document.
[2023-06-07 08:02] LABS: Hematocrit 42.6 % (37-47); Hemoglobin 13.9 g/dL (12.0-15.0); Mean Corp Hgb Conc 32.6 g/dL (32-36); Mean Corpuscular Hgb 29.3 pg (27.0-32.0); Mean Corpuscular Volume 89.9 fL (81-99); Mean Platelet Vol. 9.9 fl (6.2-12.0); Platelet Count 326 K/mm3 (150-450); RBC Distribution Width CV 12.5 % (11.6-14.6); Red Blood Count 4.74 M/mm3 (4.2-5.4); White Blood Count 5.6 K/mm3 (4.4-11.0)
[2023-06-07 08:27] LABS: ALB/GLOB Ratio 1.1 RATIO (0.9-2.4); AST(SGOT) 12 U/L (15-37); Alanine Aminotransfer ALT/SGPT 33 U/L (13-56); Albumin, Serum 3.7 g/dL (3.2-5.0); Alkaline Phosphatase 78 U/L (45-117); Anion Gap 3 (5-15); BUN 16 mg/dL (7-18); BUN/Creat Ratio 16.2 RATIO (10-20); Calcium,Total 9.2 mg/dL (8.5-10.1); Chloride 111 mmol/L (98-107); Cholesterol 196 mg/dL (200); Creatinine, Serum 0.99 mg/dL (0.55-1.02); EST Glomerular Filtration Rate 69 mL/min (>60); Est Glom Filt Rate - Afr Amer 83 mL/min (>60); Globulin 3.3 g/dL (2.2-4.2); Glucose 93 mg/dL (74-106); Sodium Level 138 mmol/L (136-145); Triglycerides 62 mg/dL
[2023-06-09 01:07] LABS: HCV Quant. RNA PCR HCV Not Detected IU/mL (.)
== END | disposition home or self-care (01) ==
LOC: LAB 07:38
PROVIDERS: PCP Internal Medicine; Referring Provider Internal Medicine Infectious Disease; Visit Provider Internal Medicine Infectious Disease
DX: B18.2 Chronic viral hepatitis C (principal)
CPT/HCPCS: 36415; 80053; 82465; 84478; 85027; 87522

== ENCOUNTER → 2023-06-19 | Outpatient (CLI) | payer MEDICAID, SELFPAY | END | disposition home or self-care (01) | PROVIDERS: PCP Internal Medicine; Visit Provider Physician Assistant | DX: N39.0 Urinary tract infection, site not specified (principal) | CPT/HCPCS: 87086; 87088 ==

== ENCOUNTER → 2023-06-27 | Outpatient (CLI) | payer MEDICAID, SELFPAY | END | disposition home or self-care (01) | LOC: LABSPEC 15:38 | PROVIDERS: PCP Internal Medicine; Visit Provider Nurse Practitioner | DX: R19.7 Diarrhea, unspecified (principal) | CPT/HCPCS: 87493 ==

== ENCOUNTER 2023-07-04 15:37 | Emergency (ER) | payer MEDICAID, SELFPAY ==
[2023-07-04 15:38] VITALS: BP 142/91; PULSE 84; RESP 18; TEMP 36.4; O2SAT 100; BMI 32.1
--- NOTE | 2023-07-04 16:43 | EDS_ITS ---
HPI History of Present Illness Chief Complaint: Dental Informant: patient Narrative Narrative: Patient presents secondary to dental pain. She had a tooth pulled today at local [facility]. She was given ibuprofen and Tylenol and states her pain has not improved. [facility] Medical History (Updated 07/04/23 @ 16:[address] Pratima Lorenzo MD) Abnormal kidney function Acute maxillary sinusitis, unspecified Alcohol abuse Anxiety and depression Arthritis Asthma Back problem Bee sting Bipolar 1 disorder Bone fracture Cellulitis of left foot Chronic bronchitis Chronic dental pain Chronic headaches Chronic low back pain Chronic neck pain Contact with and (suspected) exposure to other viral communicable diseases Drug abuse Encounter for preventative adult health care examination Encounter for screening for COVID-19 GERD (gastroesophageal reflux disease) Hearing loss in left ear Hepatitis C Hx of emotional problems Hypertension Left ankle sprain Lumbar radiculopathy MDD (major depressive disorder) Pneumonia PTSD (post-traumatic stress disorder) Right elbow pain Seasonal allergies Suprapubic discomfort URI (upper respiratory infection) Vertigo Vision problem Home Medications blood pressure monitor #1 ea 10/29/19 [Rx Last Taken Unknown] trazodone 50 mg tablet 50 mg PO QHS PRN Sleep 03/25/20 [History Last Taken Unknown] valacyclovir 500 mg tablet 500 mg PO DAILY 11/05/20 [History Last Taken Unknown] budesonide-formoterol HFA 160 mcg-4.5 mcg/actuation aerosol inhaler (Symbicort) 2 puff inhalation BID #10.2 grams 12/16/20 [Rx Last Taken Unknown] albuterol sulfate 90 mcg/actuation aerosol inhaler (ProAir HFA) 1 - 2 puff inhalation Q6H PRN shortness of breath or wheezing #8.5 grams 08/24/21 [Rx Last Taken Unknown] acetaminophen 500 mg tablet 500 mg PO Q6H PRN fever or pain #60 tabs 07/18/22 [Rx Last Taken Unknown] glecaprevir 100 mg-pibrentasvir 40 mg tablet (Mavyret) 3 tab PO DAILY 04/30/23 [History Last Taken Unknown] atogepant 10 mg tablet (Qulipta) 10 mg PO DAILY #30 tabs 05/03/23 [Rx Last Taken Unknown] rizatriptan 10 mg tablet See Rx Instructions PO .COMPLEX #10 tabs 05/03/23 [Rx Last Taken Unknown] benzonatate 200 mg capsule 200 mg PO TID PRN cough #14 caps 05/08/23 [Rx Last Taken Unknown] amlodipine 5 mg tablet See Rx Instructions .Route .COMPLEX #90 tabs 05/11/23 [Rx Last Taken Unknown] bupropion HCl 150 mg tablet,12 hr sustained-release See Rx Instructions .Route .COMPLEX #180 TABLETS 05/15/23 [Rx Last Taken Unknown] cariprazine 3 mg capsule (Vraylar) See Rx Instructions .Route .COMPLEX #90 caps 05/15/23 [Rx Last Taken Unknown] fluoxetine 40 mg capsule See Rx Instructions .Route .COMPLEX #90 caps 05/15/23 [Rx Last Taken Unknown] hydroxyzine pamoate 25 mg capsule See Rx Instructions .Route .COMPLEX #90 caps 05/15/23 [Rx Last Taken Unknown] ibuprofen 600 mg tablet 600 mg PO Q6H PRN PRN pain #90 TABLETS 05/18/23 [Rx Last Taken Unknown] baclofen 10 mg tablet 10 mg PO BID PRN muscle spasm #60 tabs 06/14/23 [Rx Last Taken Unknown] dicyclomine 10 mg capsule 10 mg PO BID PRN abdominal pain 10 days #30 caps 06/25/23 [Rx Last Taken Unknown] gabapentin 400 mg capsule See Rx Instructions .Route .COMPLEX #90 caps 06/25/23 [Rx Last Taken Unknown] vancomycin 50 mg/mL oral solution 125 mg (2.5 mL) PO Q6H 10 days #100 mL 06/28/23 [Rx Last Taken Unknown] Allergy/AdvReac Type Severity Reaction Status Date / Time zinc oxide Allergy Unknown Verified 07/04/23 15:39 naproxen [From Naprosyn] AdvReac Nausea Verified 07/04/23 15:39 Family History Unknown Alcoholism Anxiety Asthma Depression Myocardial infarction Suicide attempt Other Cancer Surgical History History of cholecystectomy History of laparoscopic appendectomy History of oral surgery Social History Smoking Status: Current every day smoker tobacco type: cigarettes and e- cigarettes alcohol intake: current alcohol intake frequency: a few times a month substance use type: 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, methamphetamine and other what type of physical activity do you participate in: yoga and weight training frequency: 3-4 times per week ROS ROS ED Constitutional Constitutional ED: Denies chills or fever(s) Eyes Eyes: Denies change in vision ENT ENT ED: Reports other Details: Dental pain ; Denies rhinorrhea or sore throat Cardiovascular Cardiovascular: Denies chest pain Respiratory/Chest Respiratory/Chest: Denies cough or dyspnea Gastrointestinal Gastrointestinal: Denies abdominal pain or vomiting Genitourinary Genitourinary ED: Denies dysuria Musculoskeletal Musculoskeletal: Denies arthralgias Neurologic Neurologic: Denies headache(s) Psychiatric Psychiatric: Denies anxiety or depression EXAM Physical Exam Const Vital Signs: 07/04/23 15:38 Temperature 97.6 F L Temperature Source Temporal Pulse Rate 84 Respiratory Rate 18 Blood Pressure 142/91 H Blood Pressure Mean 108 Pulse Ox 100 Oxygen Delivery Method Room Air Positive well nourished and well developed General Appearance ED: well developed HEENT HEENT Narrative: Recently extracted dental site from the mandibular surface, right central incisor. Extraction site is clean with no surrounding edema. No active bleeding. Eyes EOMs intact bilaterally Chest Wall inspection of chest normal and palpation of chest normal Resp normal respiratory effort and clear to auscultation bilaterally Cardio regular rate and regular rhythm GI non-tender Palpation: soft Extremity normal to inspection Neuro oriented x3 and no sensory deficits noted Motor Exam: strength 5/5 throughout Psych mental status grossly normal Skin no rashes or lesions noted MDM MDM MDM Narrative Medical decision making narrative: Patient is taking Tylenol and ibuprofen regularly. I did do an [facility] report. Her last narcotic prescription was from September 19, 2022. I will write her 10 tabs of oxycodone that she can use for breakthrough pain, but this will not change her Tylenol ibuprofen regimen prescribed by her dentist. Discharge Plan Triage Chief Complaint: Dental ED Provider: Pratima Lorenzo Dx/Rx/DC Orders Clinical Impression: Odontalgia Instructions: ED Dental Pain Prescriptions: No Action trazodone 50 mg tablet 50 mg PO QHS PRN (Reason: Sleep) acetaminophen 500 mg tablet 500 mg PO Q6H PRN (Reason: fever or pain) Qty: 60 1RF Qulipta 10 mg tablet 10 mg PO DAILY Qty: 30 1RF rizatriptan 10 mg tablet See Rx Instructions PO .COMPLEX Qty: 10 3RF Rx Instructions: take 1 tab at onset of headache; if no relief may repeat 1 tab after at least 2 hrs; max = 3 tabs/24 hr PO bupropion HCl 150 mg tablet sustained-release 12 hr See Rx Instructions .ROUTE .COMPLEX Qty: 180 1RF Dose Instruction: TAKE 1 TABLET BY MOUTH TWICE A DAY Rx Instructions: TAKE 1 TABLET BY MOUTH TWICE A DAY Vraylar 3 mg capsule See Rx Instructions .ROUTE .COMPLEX Qty: 90 1RF Dose Instruction: TAKE 1 CAPSULE BY MOUTH DAILY Rx Instructions: TAKE 1 CAPSULE BY MOUTH DAILY fluoxetine 40 mg capsule See Rx Instructions .ROUTE .COMPLEX Qty: 90 1RF Dose Instruction: TAKE 1 CAPSULE BY MOUTH DAILY Rx Instructions: TAKE 1 CAPSULE BY MOUTH DAILY hydroxyzine pamoate 25 mg capsule See Rx Instructions .ROUTE .COMPLEX Qty: 90 1RF Dose Instruction: TAKE 1 CAPSULE BY MOUTH AT BEDTIME Rx Instructions: TAKE 1 CAPSULE BY MOUTH AT BEDTIME baclofen 10 mg tablet 10 mg PO BID PRN (Reason: muscle spasm) Qty: 60 1RF benzonatate 200 mg capsule 200 mg PO TID PRN (Reason: cough) Qty: 14 0RF ibuprofen 600 mg tablet 600 mg PO Q6H PRN PRN (Reason: pain) Qty: 90 1RF dicyclomine 10 mg capsule 10 mg PO BID PRN (Reason: abdominal pain) 10 Days Qty: 30 0RF valacyclovir 500 mg tablet 500 mg PO DAILY Mavyret 100-40 mg tablet 3 tab PO DAILY Rx Instructions: must administer with a meal/food (DME) blood pressure monitor Kit See Rx Instructions .ROUTE .MEDSUPPLY Qty: 1 0RF Rx Instructions: Check blood pressure daily for hypertension I10 Symbicort 160-4.5 mcg/actuation HFA aerosol inhaler 2 puff INHALATION BID Qty: 10.2 3RF albuterol sulfate [ProAir HFA] 90 mcg/actuation HFA aerosol inhaler 1 - 2 puff inhalation Q6H PRN (Reason: shortness of breath or wheezing) Qty: 8.5 2RF amlodipine 5 mg tablet See Rx Instructions .ROUTE .COMPLEX Qty: 90 2RF Dose Instruction: take 1 tablet by mouth daily Rx Instructions: take 1 tablet by mouth daily gabapentin 400 mg capsule See Rx Instructions .ROUTE .COMPLEX Qty: 90 1RF Dose Instruction: take 1 capsule by mouth every 8 hours Rx Instructions: take 1 capsule by mouth every 8 hours; vancomycin 50 mg/mL recon soln 125 mg PO Q6H 10 Days Qty: 100 0RF Primary Care Provider: Navi Kemp Referrals: Navi Kemp MD [Primary Care Provider] - Activity Restrictions/Additional Instructions: Follow-up with your dentist in 3 to 5 days if not improving. Disposition Disposition: Home, Self Care
[2023-07-04 17:05] VITALS: BP 135/77; PULSE 69; RESP 14; TEMP 36.1; O2SAT 97
[2023-07-04] MEDS: oxyCODONE 5 MG Tablet PO (17:05)
== END 2023-07-04 17:07 | disposition home or self-care (01) ==
LOC: ED 16:55
PROVIDERS: Emergency Provider Emergency Medicine; PCP Internal Medicine; Visit Provider Emergency Medicine
DX: K08.89 Other specified disorders of teeth and supporting structures (principal); F17.210 Nicotine dependence, cigarettes, uncomplicated; F17.290 Nicotine dependence, other tobacco product, uncomplicated
CPT/HCPCS: 99282

== ENCOUNTER 2023-07-09 12:48 | Emergency (ER) | payer MEDICAID, SELFPAY ==
[2023-07-09 12:49] VITALS: BP 123/79; PULSE 89; RESP 16; TEMP 36.4; O2SAT 95; BMI 31.3
== END 2023-07-09 15:33 | disposition left against medical advice (07) ==
LOC: ED 15:37
PROVIDERS: PCP Internal Medicine
DX: R69 Illness, unspecified (principal); Z53.21 Procedure and treatment not carried out due to patient leaving prior to being seen by health care provider

== ENCOUNTER 2023-08-16 19:15 | Emergency (ER) | payer MEDICAID, SELFPAY ==
[2023-08-16 19:16] VITALS: BP 123/82; PULSE 123; RESP 16; TEMP 35.9; O2SAT 96; BMI 31.9
--- NOTE | 2023-08-16 20:59 | EDS_ITS ---
HPI History of Present Illness Chief Complaint: Lower Extremity Injury Detail of Chief Complaint: Patient presents with complaint medial proximal left thigh pain Informant: patient Occured/Mechanism Comment: She was helping a friend move. She sustained a bruise to her right thigh and right leg. States that she has no pain there. She has no concerns with regards to that. She complains of pain that is in the left groin area. Movement exacerbates her pain. Palpation exacerbates her pain. Onset/Context/Timing Onset: Days (2 days ago) Context: Sudden Onset Timing: Continuous Quality of Pain: Dull and Aching Location: Medial proximal left thigh Current Severity: Mild Maximum Severity: Severe Worsened by: Palpation and movement Relieved by: Nothing Associated Symptoms Associated Symptoms: Negative for Parasthesia, Weakness or Loss of Funtion Narrative Narrative: Patient presents with left medial proximal thigh/groin pain that started 2 to 3 days ago after helping a friend move. She had no history of direct trauma. She denies any swelling, bruising. She is not on antithrombotic or anticoagulant. She denies bowel bladder dysfunction. She does have history of herniated nucleus pulposus L4-5 and L5-S1. She denies saddle paresthesia or anesthesia. She denies radicular pain. The pain is anterior medial proximal left thigh. Tetanus Immunization: 5-10 years Prior similar symptoms: No Recent Illness/Hospitalization: No PFSH PFSH Medical History Abnormal kidney function Acute maxillary sinusitis, unspecified ADHD Alcohol abuse Anxiety and depression Arthritis Asthma Back problem Bee sting Bipolar 1 disorder Bone fracture Cellulitis of left foot Chronic bronchitis Chronic dental pain Chronic headaches Chronic low back pain Chronic neck pain Contact with and (suspected) exposure to other viral communicable diseases Drug abuse Encounter for preventative adult health care examination Encounter for screening for COVID-19 GERD (gastroesophageal reflux disease) Hearing loss in left ear Hepatitis C Hx of emotional problems Hypertension Left ankle sprain Lumbar radiculopathy MDD (major depressive disorder) Pneumonia PTSD (post-traumatic stress disorder) Right elbow pain Seasonal allergies Suprapubic discomfort URI (upper respiratory infection) Vertigo Vision problem Home Medications blood pressure monitor #1 ea 10/29/19 [Rx Last Taken Unknown] trazodone 50 mg tablet 50 mg PO QHS PRN Sleep 03/25/20 [History Last Taken Unknown] valacyclovir 500 mg tablet 500 mg PO DAILY 11/05/20 [History Last Taken Unknown] budesonide-formoterol HFA 160 mcg-4.5 mcg/actuation aerosol inhaler (Symbicort) 2 puff inhalation BID #10.2 grams 12/16/20 [Rx Last Taken Unknown] albuterol sulfate 90 mcg/actuation aerosol inhaler (ProAir HFA) 1 - 2 puff inhalation Q6H PRN shortness of breath or wheezing #8.5 grams 08/24/21 [Rx Last Taken Unknown] acetaminophen 500 mg tablet 500 mg PO Q6H PRN fever or pain #60 tabs 07/18/22 [Rx Last Taken Unknown] glecaprevir 100 mg-pibrentasvir 40 mg tablet (Mavyret) 3 tab PO DAILY 04/30/23 [History Last Taken Unknown] atogepant 10 mg tablet (Qulipta) 10 mg PO DAILY #30 tabs 05/03/23 [Rx Last Taken Unknown] rizatriptan 10 mg tablet See Rx Instructions PO .COMPLEX #10 tabs 05/03/23 [Rx Last Taken Unknown] benzonatate 200 mg capsule 200 mg PO TID PRN cough #14 caps 05/08/23 [Rx Last Taken Unknown] amlodipine 5 mg tablet See Rx Instructions .Route .COMPLEX #90 tabs 05/11/23 [Rx Last Taken Unknown] ibuprofen 600 mg tablet 600 mg PO Q6H PRN PRN pain #90 TABLETS 05/18/23 [Rx Last Taken Unknown] baclofen 10 mg tablet 10 mg PO BID PRN muscle spasm #60 tabs 06/14/23 [Rx Last Taken Unknown] oxycodone-acetaminophen 5 mg-325 mg tablet (Percocet) 1 tab PO Q8H PRN pain 3 days #10 tabs 07/05/23 [Rx Last Taken Unknown] atomoxetine 40 mg capsule 40 mg PO DAILY #30 caps 07/18/23 [Rx Last Taken Unknown] cariprazine 3 mg capsule (Vraylar) See Rx Instructions .Route .COMPLEX #90 caps 07/18/23 [Rx Last Taken Unknown] fluoxetine 40 mg capsule See Rx Instructions .Route .COMPLEX #90 caps 07/18/23 [Rx Last Taken Unknown] hydroxyzine pamoate 25 mg capsule See Rx Instructions .Route .COMPLEX #90 caps 07/18/23 [Rx Last Taken Unknown] gabapentin 400 mg capsule See Rx Instructions .Route .COMPLEX #90 caps 08/14/23 [Rx Last Taken Unknown] hydrocodone-acetaminophen 5-325mg 5mg-325mg 1 tab PO Q6H PRN PRN Pain 3 days #10 TABLETS 08/16/23 [Rx Last Taken Unknown] Allergy/AdvReac Type Severity Reaction Status Date / Time zinc oxide Allergy Unknown Verified 08/16/23 19:16 naproxen [From Naprosyn] AdvReac Nausea Verified 08/16/23 19:16 Family History Unknown Alcoholism Anxiety Asthma Depression Myocardial infarction Suicide attempt Other Cancer Surgical History History of cholecystectomy History of laparoscopic appendectomy History of oral surgery Social History Smoking Status: Current every day smoker tobacco type: cigarettes and e- cigarettes alcohol intake: current alcohol intake frequency: a few times a month substance use type: 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, methamphetamine and other what type of physical activity do you participate in: yoga and weight training frequency: 3-4 times per week ROS ROS ED Constitutional Constitutional ED: Denies chills, fever(s), subjective, sweats or weight loss Eyes Eyes: Denies blurry vision, change in vision or diplopia Cardiovascular Cardiovascular: Denies chest pain Respiratory/Chest Respiratory/Chest: Denies cough Gastrointestinal Gastrointestinal: Denies nausea or vomiting Musculoskeletal Musculoskeletal: Denies arthralgias, back pain or myalgias Integumentary Denies rash Hematologic/Lymphatic Hematologic/Lymphatic: Denies easy bleeding or easy bruising EXAM Physical Exam Const Vital Signs: 08/16/23 19:16 Temperature 96.7 F L Temperature Source Temporal Pulse Rate 123 H Respiratory Rate 16 Blood Pressure 123/82 H Blood Pressure Mean 95 Pulse Ox 96 Oxygen Delivery Method Room Air Positive well nourished and well developed General Appearance ED: well developed and NAD HEENT Reports moist mucous membranes normocephalic and atraumatic Eyes PERRL Eyes Narrative: Extract muscles intact. Neck full ROM and supple Chest Wall inspection of chest normal Resp normal respiratory effort, no retractions and clear to auscultation bilaterally Cardio regular rate, regular rhythm, S1 normal heart sound, S2 normal heart sound and no murmurs GI non-tender, non-distended and no masses Back/Spine no CVA tenderness Extremity normal to inspection and full ROM Extremity Narrative: Pal Kwesi 4 test causes pain proximal medial left thigh. She has pain ovation proximal medial left thigh. There is no evidence of trauma. Abduction against resistance causes significant pain. PT DP pulse are 2+. General Extremety ED: Negative for weight-bearing difficulty General Extremity: Negative for weight-bearing difficulty Neuro oriented x3, CN's II-XII intact bilaterally, moves all extremities and no sensory deficits noted Sensorium / Orientation: alert Motor Exam: strength 5/5 throughout Plantar Reflex: Downgoing: bilateral Psych mental status grossly normal Skin no wounds Lesions: no lesions Rashes: no rashes MDM MDM MDM Narrative Medical decision making narrative: Prior records reviewed. Patient does have history of major depressive disorder, posttraumatic stress disorder and herniated nucleus pulposus of L4-5 and L5-S1. Patient's history and physical is consistent with abductor longus muscle strain. Will treat with NSAID and opiate analgesia. She was instructed to apply ice 6- 10 times a day. Discharge Plan Triage Chief Complaint: Lower Extremity Injury ED Provider: Tee Willett Dx/Rx/DC Orders Clinical Impression: Strain of left groin, Hepatitis C, Hypertension Instructions: ED Groin Strain Prescriptions: New hydrocodone-acetaminophen [hydrocodone-acetaminophen] 5-325 mg tablet 1 tab PO Q6H PRN PRN (Reason: Pain) 3 Days Qty: 10 0RF No Action trazodone 50 mg tablet 50 mg PO QHS PRN (Reason: Sleep) acetaminophen 500 mg tablet 500 mg PO Q6H PRN (Reason: fever or pain) Qty: 60 1RF Qulipta 10 mg tablet 10 mg PO DAILY Qty: 30 1RF rizatriptan 10 mg tablet See Rx Instructions PO .COMPLEX Qty: 10 3RF Rx Instructions: take 1 tab at onset of headache; if no relief may repeat 1 tab after at least 2 hrs; max = 3 tabs/24 hr PO baclofen 10 mg tablet 10 mg PO BID PRN (Reason: muscle spasm) Qty: 60 1RF benzonatate 200 mg capsule 200 mg PO TID PRN (Reason: cough) Qty: 14 0RF atomoxetine 40 mg capsule 40 mg PO DAILY Qty: 30 2RF Vraylar 3 mg capsule See Rx Instructions .ROUTE .COMPLEX Qty: 90 1RF Dose Instruction: TAKE 1 CAPSULE BY MOUTH DAILY Rx Instructions: TAKE 1 CAPSULE BY MOUTH DAILY fluoxetine 40 mg capsule See Rx Instructions .ROUTE .COMPLEX Qty: 90 1RF Dose Instruction: TAKE 1 CAPSULE BY MOUTH DAILY Rx Instructions: TAKE 1 CAPSULE BY MOUTH DAILY hydroxyzine pamoate 25 mg capsule See Rx Instructions .ROUTE .COMPLEX Qty: 90 1RF Dose Instruction: TAKE 1 CAPSULE BY MOUTH AT BEDTIME Rx Instructions: TAKE 1 CAPSULE BY MOUTH AT BEDTIME ibuprofen 600 mg tablet 600 mg PO Q6H PRN PRN (Reason: pain) Qty: 90 1RF valacyclovir 500 mg tablet 500 mg PO DAILY Mavyret 100-40 mg tablet 3 tab PO DAILY Rx Instructions: must administer with a meal/food oxycodone-acetaminophen [Percocet] 5-325 mg tablet 1 tab PO Q8H PRN (Reason: pain) 3 Days Qty: 10 0RF (DME) blood pressure monitor Kit See Rx Instructions .ROUTE .MEDSUPPLY Qty: 1 0RF Rx Instructions: Check blood pressure daily for hypertension I10 Symbicort 160-4.5 mcg/actuation HFA aerosol inhaler 2 puff INHALATION BID Qty: 10.2 3RF albuterol sulfate [ProAir HFA] 90 mcg/actuation HFA aerosol inhaler 1 - 2 puff inhalation Q6H PRN (Reason: shortness of breath or wheezing) Qty: 8.5 2RF amlodipine 5 mg tablet See Rx Instructions .ROUTE .COMPLEX Qty: 90 2RF Dose Instruction: take 1 tablet by mouth daily Rx Instructions: take 1 tablet by mouth daily gabapentin 400 mg capsule See Rx Instructions .ROUTE .COMPLEX Qty: 90 1RF Dose Instruction: take 1 capsule by mouth every 8 hours Rx Instructions: take 1 capsule by mouth every 8 hours; Primary Care Provider: Navi Kemp Referrals: Navi Kemp MD [Primary Care Provider] - 1 Week if not improving Disposition Disposition: Home, Self Care
[2023-08-16] MEDS: HYDROcodone Bitartrate/Apap 5/325 Tablet PO (21:11)
== END 2023-08-16 21:18 | disposition home or self-care (01) ==
LOC: ED 21:09
PROVIDERS: Emergency Provider Emergency Medicine; PCP Internal Medicine; Visit Provider Emergency Medicine
DX: S76.811A Strain of other specified muscles, fascia and tendons at thigh level, right thigh, initial encounter (principal); X58.XXXA Exposure to other specified factors, initial encounter; Y93.89 Activity, other specified; Y99.8 Other external cause status; I10 Essential (primary) hypertension; B19.20 Unspecified viral hepatitis C without hepatic coma; F17.210 Nicotine dependence, cigarettes, uncomplicated; F17.290 Nicotine dependence, other tobacco product, uncomplicated; Z79.899 Other long term (current) drug therapy
CPT/HCPCS: 99282

== ENCOUNTER 2023-09-02 11:54 | Emergency (ER) | payer MEDICAID, SELFPAY ==
[2023-09-02 11:55] VITALS: BP 120/70; PULSE 91; RESP 14; TEMP 36.1; O2SAT 100
--- NOTE | 2023-09-02 12:05 | ED.VIS.LOWEX ---
HPI History of Present Illness Chief Complaint: Lower Extremity Injury Informant: patient and spouse/S.O. Narrative Narrative: Patient injured her right knee this morning. She was holding her dog's leash and the dog pulled her down 2 or 3 steps outside. She landed on her right foot flat-footed, but this ended up giving her pain immediately in her knee. Having trouble bearing weight but she is able. No other injuries. [facility] Medical History Abnormal kidney function Acute maxillary sinusitis, unspecified ADHD Alcohol abuse Anxiety and depression Arthritis Asthma Back problem Bee sting Bipolar 1 disorder Bone fracture Cellulitis of left foot Chronic bronchitis Chronic dental pain Chronic headaches Chronic low back pain Chronic neck pain Contact with and (suspected) exposure to other viral communicable diseases Drug abuse Encounter for preventative adult health care examination Encounter for screening for COVID-19 GERD (gastroesophageal reflux disease) Hearing loss in left ear Hepatitis C Hx of emotional problems Hypertension Left ankle sprain Lumbar radiculopathy MDD (major depressive disorder) Pneumonia PTSD (post-traumatic stress disorder) Right elbow pain Seasonal allergies Suprapubic discomfort URI (upper respiratory infection) Vertigo Vision problem Home Medications blood pressure monitor #1 ea 10/29/19 [Rx Last Taken Unknown] trazodone 50 mg tablet 50 mg PO QHS PRN Sleep 03/25/20 [History Last Taken Unknown] valacyclovir 500 mg tablet 500 mg PO DAILY 11/05/20 [History Last Taken Unknown] budesonide-formoterol HFA 160 mcg-4.5 mcg/actuation aerosol inhaler (Symbicort) 2 puff inhalation BID #10.2 grams 12/16/20 [Rx Last Taken Unknown] albuterol sulfate 90 mcg/actuation aerosol inhaler (ProAir HFA) 1 - 2 puff inhalation Q6H PRN shortness of breath or wheezing #8.5 grams 08/24/21 [Rx Last Taken Unknown] acetaminophen 500 mg tablet 500 mg PO Q6H PRN fever or pain #60 tabs 07/18/22 [Rx Last Taken Unknown] glecaprevir 100 mg-pibrentasvir 40 mg tablet (Mavyret) 3 tab PO DAILY 04/30/23 [History Last Taken Unknown] atogepant 10 mg tablet (Qulipta) 10 mg PO DAILY #30 tabs 05/03/23 [Rx Last Taken Unknown] rizatriptan 10 mg tablet See Rx Instructions PO .COMPLEX #10 tabs 05/03/23 [Rx Last Taken Unknown] benzonatate 200 mg capsule 200 mg PO TID PRN cough #14 caps 05/08/23 [Rx Last Taken Unknown] amlodipine 5 mg tablet See Rx Instructions .Route .COMPLEX #90 tabs 05/11/23 [Rx Last Taken Unknown] ibuprofen 600 mg tablet 600 mg PO Q6H PRN PRN pain #90 TABLETS 05/18/23 [Rx Last Taken Unknown] baclofen 10 mg tablet 10 mg PO BID PRN muscle spasm #60 tabs 06/14/23 [Rx Last Taken Unknown] oxycodone-acetaminophen 5 mg-325 mg tablet (Percocet) 1 tab PO Q8H PRN pain 3 days #10 tabs 07/05/23 [Rx Last Taken Unknown] atomoxetine 40 mg capsule 40 mg PO DAILY #30 caps 07/18/23 [Rx Last Taken Unknown] cariprazine 3 mg capsule (Vraylar) See Rx Instructions .Route .COMPLEX #90 caps 07/18/23 [Rx Last Taken Unknown] fluoxetine 40 mg capsule See Rx Instructions .Route .COMPLEX #90 caps 07/18/23 [Rx Last Taken Unknown] hydroxyzine pamoate 25 mg capsule See Rx Instructions .Route .COMPLEX #90 caps 07/18/23 [Rx Last Taken Unknown] gabapentin 400 mg capsule See Rx Instructions .Route .COMPLEX #90 caps 08/14/23 [Rx Last Taken Unknown] hydrocodone-acetaminophen 5-325mg 5mg-325mg 1 tab PO Q6H PRN PRN Pain 3 days #10 TABLETS 08/16/23 [Rx Last Taken Unknown] Allergy/AdvReac Type Severity Reaction Status Date / Time zinc oxide Allergy Unknown Verified 09/02/23 11:58 naproxen [From Naprosyn] AdvReac Nausea Verified 09/02/23 11:58 Family History Unknown Alcoholism Anxiety Asthma Depression Myocardial infarction Suicide attempt Other Cancer Surgical History History of cholecystectomy History of laparoscopic appendectomy History of oral surgery Social History Smoking Status: Current every day smoker tobacco type: cigarettes and e-cigarettes alcohol intake: current alcohol intake frequency: a few times a month substance use type: 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, methamphetamine and other what type of physical activity do you participate in: yoga and weight training frequency: 3-4 times per week ROS ROS ED Constitutional Constitutional ED: Denies chills or fever(s) Musculoskeletal Musculoskeletal: Reports extremity pain; Denies neck pain Integumentary Denies Abrasions, rash or wounds Neurologic Neurologic: Denies paresthesias or weakness EXAM Physical Exam Const Vital Signs: 09/02/23 11:55 Temperature 96.9 F L Temperature Source Temporal Pulse Rate 91 Respiratory Rate 14 Blood Pressure 120/70 Blood Pressure Mean 86 Pulse Ox 100 Oxygen Delivery Method Room Air Positive well nourished and well developed General Appearance ED: well developed and NAD Neck full ROM and supple Back/Spine normal ROM and normal to inspection Extremity Extremity Narrative: Limited range of motion of the right knee due to pain but she is able. She can extend almost fully and bend almost fully but limited at extremes due to pain. Extensor mechanism is intact. No deformities. No significant swelling no effusion. Tender at the medial aspect of the knee, distal femur more so than the joint line. Stressing the ACL gives her pain but there is no laxity. The other ligaments are without pain on stressing and no laxity. Neurovascular intact distally. Neuro oriented x3, no focal motor deficits and no sensory deficits noted Sensorium / Orientation: alert Psych mental status grossly normal and thought process normal Skin no wounds Rashes: no rashes MDM MDM MDM Narrative Medical decision making narrative: 4 view x-ray series of the right knee is negative for acute fracture or mitral rotation. Radiology in agreement. No large effusion. Patient will be given an Miles wrap, she was given anti-inflammatories, and she is asking for a work note. Radiography Diagnostic Testing: Clinical Impression(s) from Imaging Studies Knee X-Ray 09/02/23 12:25 IMPRESSION: Intact right knee. Electronically Signed: Patrick Lei MD at 12:40 EDT Reading Location ID and State: [facility] / [place] Tel , Service support , Discharge Plan Triage Chief Complaint: Lower Extremity Injury ED Provider: Alvarez Bingham Dx/Rx/DC Orders Clinical Impression: Right knee sprain Instructions: ED Knee Sprain Prescriptions: No Action trazodone 50 mg tablet 50 mg PO QHS PRN (Reason: Sleep) acetaminophen 500 mg tablet 500 mg PO Q6H PRN (Reason: fever or pain) Qty: 60 1RF Qulipta 10 mg tablet 10 mg PO DAILY Qty: 30 1RF rizatriptan 10 mg tablet See Rx Instructions PO .COMPLEX Qty: 10 3RF Rx Instructions: take 1 tab at onset of headache; if no relief may repeat 1 tab after at least 2 hrs; max = 3 tabs/24 hr PO baclofen 10 mg tablet 10 mg PO BID PRN (Reason: muscle spasm) Qty: 60 1RF benzonatate 200 mg capsule 200 mg PO TID PRN (Reason: cough) Qty: 14 0RF atomoxetine 40 mg capsule 40 mg PO DAILY Qty: 30 2RF Vraylar 3 mg capsule See Rx Instructions .ROUTE .COMPLEX Qty: 90 1RF Dose Instruction: TAKE 1 CAPSULE BY MOUTH DAILY Rx Instructions: TAKE 1 CAPSULE BY MOUTH DAILY fluoxetine 40 mg capsule See Rx Instructions .ROUTE .COMPLEX Qty: 90 1RF Dose Instruction: TAKE 1 CAPSULE BY MOUTH DAILY Rx Instructions: TAKE 1 CAPSULE BY MOUTH DAILY hydroxyzine pamoate 25 mg capsule See Rx Instructions .ROUTE .COMPLEX Qty: 90 1RF Dose Instruction: TAKE 1 CAPSULE BY MOUTH AT BEDTIME Rx Instructions: TAKE 1 CAPSULE BY MOUTH AT BEDTIME ibuprofen 600 mg tablet 600 mg PO Q6H PRN PRN (Reason: pain) Qty: 90 1RF valacyclovir 500 mg tablet 500 mg PO DAILY Mavyret 100-40 mg tablet 3 tab PO DAILY Rx Instructions: must administer with a meal/food hydrocodone-acetaminophen [hydrocodone-acetaminophen] 5-325 mg tablet 1 tab PO Q6H PRN PRN (Reason: Pain) 3 Days Qty: 10 0RF oxycodone-acetaminophen [Percocet] 5-325 mg tablet 1 tab PO Q8H PRN (Reason: pain) 3 Days Qty: 10 0RF (DME) blood pressure monitor Kit See Rx Instructions .ROUTE .MEDSUPPLY Qty: 1 0RF Rx Instructions: Check blood pressure daily for hypertension I10 Symbicort 160-4.5 mcg/actuation HFA aerosol inhaler 2 puff INHALATION BID Qty: 10.2 3RF albuterol sulfate [ProAir HFA] 90 mcg/actuation HFA aerosol inhaler 1 - 2 puff inhalation Q6H PRN (Reason: shortness of breath or wheezing) Qty: 8.5 2RF amlodipine 5 mg tablet See Rx Instructions .ROUTE .COMPLEX Qty: 90 2RF Dose Instruction: take 1 tablet by mouth daily Rx Instructions: take 1 tablet by mouth daily gabapentin 400 mg capsule See Rx Instructions .ROUTE .COMPLEX Qty: 90 1RF Dose Instruction: take 1 capsule by mouth every 8 hours Rx Instructions: take 1 capsule by mouth every 8 hours; Stand Alone Forms: ED Work / School Excuse Primary Care Provider: Navi Kemp Referrals: Navi Kemp MD [Primary Care Provider] - 10-14 Days if not better Disposition Disposition: Home, Self Care
[2023-09-02] MEDS: Ibuprofen 600 MG Tablet PO (12:10)
--- NOTE | 2023-09-02 12:25 | RAD_ITS ---
EXAM: XR RIGHT KNEE COMPLETE, 4 OR MORE VIEWS CLINICAL INDICATION: injury TECHNIQUE: Four or more views of the right knee. COMPARISON: No relevant prior studies available. FINDINGS: BONES/JOINTS: No acute fracture, subluxation or joint effusion. SOFT TISSUES: Normal. No soft tissue swelling or gas. No radiopaque foreign body. RAD/Knee 4 or More Views IMPRESSION: Intact right knee. Electronically Signed: Patrick Lei MD at 12:40 EDT ,
== END 2023-09-02 13:30 | disposition home or self-care (01) ==
PROVIDERS: Emergency Provider Emergency Medicine; PCP Internal Medicine; Visit Provider Emergency Medicine
DX: S83.91XA Sprain of unspecified site of right knee, initial encounter (principal); F17.210 Nicotine dependence, cigarettes, uncomplicated; F17.290 Nicotine dependence, other tobacco product, uncomplicated; F41.9 Anxiety disorder, unspecified; F32.A Depression, unspecified; J45.909 Unspecified asthma, uncomplicated; Z79.899 Other long term (current) drug therapy; Z79.51 Long term (current) use of inhaled steroids; X58.XXXA Exposure to other specified factors, initial encounter
CPT/HCPCS: 73564; 99282

== ENCOUNTER 2023-11-01 15:25 | Emergency (ER) | payer MEDICAID, SELFPAY ==
[2023-11-01 15:26] VITALS: BP 124/76; PULSE 106; RESP 18; TEMP 36.1; O2SAT 99; BMI 30.6
--- NOTE | 2023-11-01 15:56 | EDS_ITS ---
HPI <CHARLOTTE Muñoz - Last Filed: 11/01/23 16:00> History of Present Illness Chief Complaint: Back Narrative Narrative: Patient is a 33-year-old female with history of anxiety, depression, chronic back pain who presents to the emergency department after sustaining a back injury. Patient states that she has been moving couches yesterday for a friend. Today, she would barely finish her work which is physical secondary to lower back pain. Patient denies any radiation to her lower extremities. Patient denies any bowel or bladder continence, patient denies any history IV drug abuse. Patient is here for evaluation. PFS <CHARLOTTE Muñoz - Last Filed: 11/01/23 16:00> PFSH Medical History Knee pain, right ADHD Hypertension Arthritis Hepatitis C Encounter for preventative adult health care examination MDD (major depressive disorder) Suprapubic discomfort Cellulitis of left foot Abnormal kidney function Vertigo Chronic dental pain Contact with and (suspected) exposure to other viral communicable diseases URI (upper respiratory infection) Left ankle sprain Encounter for screening for COVID-19 Acute maxillary sinusitis, unspecified Lumbar radiculopathy Right elbow pain Chronic neck pain Bee sting Chronic low back pain GERD (gastroesophageal reflux disease) PTSD (post-traumatic stress disorder) Anxiety and depression Bipolar 1 disorder Hearing loss in left ear Vision problem Pneumonia Chronic headaches Hx of emotional problems Drug abuse Chronic bronchitis Bone fracture Back problem Asthma Seasonal allergies Alcohol abuse Home Medications ?Medication ?Instructions ?Recorded ?Last Taken ?Type blood pressure monitor #1 ea 10/29/19 Unknown Rx trazodone 50 mg tablet 50 mg PO QHS PRN Sleep 03/25/20 Unknown History valacyclovir 500 mg tablet 500 mg PO DAILY 11/05/20 Unknown History budesonide-formoterol HFA 160 2 puff inhalation BID #10.2 grams 12/16/20 Unknown Rx mcg-4.5 mcg/actuation aerosol inhaler (Symbicort) albuterol sulfate 90 mcg/actuation 1 - 2 puff inhalation Q6H PRN 08/24/21 Unknown Rx aerosol inhaler (ProAir HFA) shortness of breath or wheezing #8.5 grams acetaminophen 500 mg tablet 500 mg PO Q6H PRN fever or pain 07/18/22 Unknown Rx #60 tabs glecaprevir 100 mg-pibrentasvir 40 3 tab PO DAILY 04/30/23 Unknown History mg tablet (Mavyret) atogepant 10 mg tablet (Qulipta) 10 mg PO DAILY #30 tabs 05/03/23 Unknown Rx rizatriptan 10 mg tablet See Rx Instructions PO .COMPLEX 05/03/23 Unknown Rx #10 tabs amlodipine 5 mg tablet See Rx Instructions .Route 05/11/23 Unknown Rx .COMPLEX #90 tabs baclofen 10 mg tablet 10 mg PO BID PRN muscle spasm #60 06/14/23 Unknown Rx tabs cariprazine 3 mg capsule (Vraylar) See Rx Instructions .Route 07/18/23 Unknown Rx .COMPLEX #90 caps fluoxetine 40 mg capsule See Rx Instructions .Route 07/18/23 Unknown Rx .COMPLEX #90 caps hydroxyzine pamoate 25 mg capsule See Rx Instructions .Route 07/18/23 Unknown Rx .COMPLEX #90 caps gabapentin 400 mg capsule See Rx Instructions .Route 09/12/23 Unknown Rx .COMPLEX #90 caps leg brace (Knee Support Brace) #1 ea 09/12/23 Unknown Rx meloxicam 15 mg tablet 15 mg PO DAILY PRN pain #30 tabs 09/12/23 Unknown Rx atomoxetine 80 mg capsule 80 mg PO DAILY #30 caps 09/19/23 Unknown Rx cyclobenzaprine 10 mg tablet 10 mg PO TID PRN Muscle Spasm #20 11/01/23 Unknown Rx TABLETS Allergy/AdvReac Type Severity Reaction Status Date / Time zinc oxide Allergy Unknown Verified 11/01/23 15:27 naproxen (From Naprosyn) AdvReac Nausea Verified 11/01/23 15:27 Family History Unknown Alcoholism Anxiety Asthma Depression Myocardial infarction Suicide attempt Other Cancer Surgical History History of cholecystectomy History of oral surgery History of laparoscopic appendectomy Social History Smoking Status: Current every day smoker tobacco type: cigarettes and e- cigarettes alcohol intake: current alcohol intake frequency: a few times a month substance use type: 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, methamphetamine and other what type of physical activity do you participate in: yoga and weight training frequency: 3-4 times per week ROS <CHARLOTTE Muñoz - Last Filed: 11/01/23 16:00> ROS ED ROS Narrative Constitutional: Negative for fever, chills, weight loss, weakness Eyes: Negative for vision loss, vision change, double vision ENT: Negative for any sore throat, ear pain, congestion Cardiovascular: Negative for any chest pain, tightness, palpitations Respiratory: Negative for any cough, sputum production, hemoptysis, dyspnea, dyspnea on exertion, orthopnea Gastrointestinal: Negative for any abdominal pain, nausea, vomiting, diarrhea, constipation, blood in stool, blood in vomit : Negative for any urinary frequency, dysuria, retention, blood in urine Muscle skeletal: Negative for any neck pain. Positive for back pain Neurological: Negative for any headache, syncope, dizziness Skin: Negative for any rashes, itching, abrasions, lacerations Psychiatric: Negative for any depression, anxiety, stress, suicidal ideation, homicidal ideation Hematologic: Negative for any excessive bruising, easy bleeding EXAM <CHARLOTTE Muñoz - Last Filed: 11/01/23 16:00> Physical Exam Narrative Exam Narrative: Vital signs reviewed. HEET: Head normocephalic atraumatic, TMs clear bilaterally. Posterior pharynx is clear, moist mucous membranes. Nares clear bilaterally. Neck: Supple with no lymphadenopathy or tenderness. No signs of meningismus. Cardiac: Regular rate and rhythm no murmurs gallops or rubs, equal peripheral pulses bilaterally. Respiratory: Lungs clear to auscultation bilaterally. No chest tenderness. Abdomen: Soft, nontender, nondistended. No abdominal bruit or pulsatile masses. No hepatosplenomegaly Extremities: No peripheral edema, no signs of gross trauma or deformity. Active full range of motion of all extremities. Neuro: Cranial nerves II through XII intact, no focal neurological deficits. Skin: Clean dry and intact with no rash, purpura, petechiae, vesicles or pustules. Backs/flank: No CVA tenderness, no midline spinal tenderness, no deformity. Psych: Normal mood and affect. No SI, HI or acute psychosis. Const Vital Signs: 11/01/23 15:26 11/01/23 16:21 Temperature 97 F L 98 F Temperature Source Temporal Pulse Rate 106 H 101 H Respiratory Rate 18 12 Blood Pressure 124/76 H 115/76 Blood Pressure Mean 92 89 Pulse Ox 99 97 Oxygen Delivery Method Room Air <Dr. Alvarez Bingham MD - Last Filed: 11/01/23 21:52> Physical Exam Const Vital Signs: 11/01/23 15:26 11/01/23 16:21 Temperature 97 F L 98 F Temperature Source Temporal Pulse Rate 106 H 101 H Respiratory Rate 18 12 Blood Pressure 124/76 H 115/76 Blood Pressure Mean 92 89 Pulse Ox 99 97 Oxygen Delivery Method Room Air [facility] <CHARLOTTE Muñoz - Last Filed: 11/01/23 16:00> [facility] Treatment and Re-Evaluation :: Patient appears to be in no obvious distress vital signs are stable, patient presents to the emergency department with complaints of back pain. Patient has no red flag signs. Patient be treated conservatively, patient be given IM Toradol, IM Norflex. On reevaluation, the patient felt much better. Patient will be given a prescription for muscle relaxers, she will take [id number] ibuprofen, Tylenol at home. Instructed return for any worsening symptoms. All questions answered, patient stable for discharge. <Dr. Alvarez Bingham MD - Last Filed: 11/01/23 21:52> [facility] Narrative Medical decision making narrative: I have personally performed a face to face assessment of the patient and have reviewed the NAT Note. I performed a substantive portion of the visit including all aspects of the following. My archuleta findings include: History is chronic low back pain with left-sided sciatica/numbness, she states it feels flared up due to repetitive movement/lifting. No bowel or bladder dysfunction or saddle anesthesia or weakness in the leg. No change in numbness in her lower extremity. Exam is negative straight leg raises, neurovascular intact distally both lower extremities, comfortable, no CVA tenderness mild left-sided paraspinal lumbosacral tenderness. Abdomen nontender nondistended. Medical Decison Making symptomatic treatment we discussed reasons to return and follow-up. Other additions or changes: [None] Discharge Plan Triage Chief Complaint: Back ED Midlevel Provider: Sunil Bermeo ED Provider: Alvarez Bingham Dx/Rx/DC Orders Clinical Impression: Acute lumbar myofascial strain Instructions: Treating?Strains and Sprains, Understanding Lumbosacral Strain Prescriptions: New cyclobenzaprine 10 mg tablet 10 mg PO TID PRN (Reason: Muscle Spasm) Qty: 20 0RF No Action trazodone 50 mg tablet 50 mg PO QHS PRN (Reason: Sleep) acetaminophen 500 mg tablet 500 mg PO Q6H PRN (Reason: fever or pain) Qty: 60 1RF Qulipta 10 mg tablet 10 mg PO DAILY Qty: 30 1RF rizatriptan 10 mg tablet See Rx Instructions PO .COMPLEX Qty: 10 3RF Rx Instructions: take 1 tab at onset of headache; if no relief may repeat 1 tab after at least 2 hrs; max = 3 tabs/24 hr PO baclofen 10 mg tablet 10 mg PO BID PRN (Reason: muscle spasm) Qty: 60 1RF Vraylar 3 mg capsule See Rx Instructions .ROUTE .COMPLEX Qty: 90 1RF Dose Instruction: TAKE 1 CAPSULE BY MOUTH DAILY Rx Instructions: TAKE 1 CAPSULE BY MOUTH DAILY fluoxetine 40 mg capsule See Rx Instructions .ROUTE .COMPLEX Qty: 90 1RF Dose Instruction: TAKE 1 CAPSULE BY MOUTH DAILY Rx Instructions: TAKE 1 CAPSULE BY MOUTH DAILY hydroxyzine pamoate 25 mg capsule See Rx Instructions .ROUTE .COMPLEX Qty: 90 1RF Dose Instruction: TAKE 1 CAPSULE BY MOUTH AT BEDTIME Rx Instructions: TAKE 1 CAPSULE BY MOUTH AT BEDTIME meloxicam 15 mg tablet 15 mg PO DAILY PRN (Reason: pain) Qty: 30 1RF (DME) Knee Support Brace Misc See Rx Instructions .Route Qty: 1 0RF Rx Instructions: As directed atomoxetine 80 mg capsule 80 mg PO DAILY Qty: 30 2RF valacyclovir 500 mg tablet 500 mg PO DAILY Mavyret 100-40 mg tablet 3 tab PO DAILY Rx Instructions: must administer with a meal/food (DME) blood pressure monitor Kit See Rx Instructions .ROUTE .MEDSUPPLY Qty: 1 0RF Rx Instructions: Check blood pressure daily for hypertension I10 Symbicort 160-4.5 mcg/actuation HFA aerosol inhaler 2 puff INHALATION BID Qty: 10.2 3RF albuterol sulfate [ProAir HFA] 90 mcg/actuation HFA aerosol inhaler 1 - 2 puff inhalation Q6H PRN (Reason: shortness of breath or wheezing) Qty: 8.5 2RF amlodipine 5 mg tablet See Rx Instructions .ROUTE .COMPLEX Qty: 90 2RF Dose Instruction: take 1 tablet by mouth daily Rx Instructions: take 1 tablet by mouth daily gabapentin 400 mg capsule See Rx Instructions .ROUTE .COMPLEX Qty: 90 1RF Dose Instruction: take 1 capsule by mouth every 8 hours Rx Instructions: take 1 capsule by mouth every 8 hours; Primary Care Provider: Navi Kemp Referrals: Navi Kemp MD [Primary Care Provider] - Print Language: Occitan Disposition Disposition: Home, Self Care Discharge Date/Time: 11/01/23 16:24
[2023-11-01] MEDS: Orphenadrine 60 MG/2 ML Ampul IM (16:03)
[2023-11-01] MEDS: Ketorolac 30 MG/ML Syringe IM (16:03)
[2023-11-01 16:21] VITALS: BP 115/76; PULSE 101; RESP 12; TEMP 36.6; O2SAT 97
== END 2023-11-01 16:24 | disposition home or self-care (01) ==
PROVIDERS: Emergency Provider Emergency Medicine; PCP Internal Medicine; Visit Provider Emergency Medicine
DX: S39.012A Strain of muscle, fascia and tendon of lower back, initial encounter (principal); F17.210 Nicotine dependence, cigarettes, uncomplicated; I10 Essential (primary) hypertension; B19.20 Unspecified viral hepatitis C without hepatic coma; J45.909 Unspecified asthma, uncomplicated; Z79.51 Long term (current) use of inhaled steroids; Z79.899 Other long term (current) drug therapy; F41.8 Other specified anxiety disorders; F17.290 Nicotine dependence, other tobacco product, uncomplicated; X58.XXXA Exposure to other specified factors, initial encounter; Y93.89 Activity, other specified
CPT/HCPCS: 96372; 99282

== ENCOUNTER 2023-12-08 16:11 | Emergency (ER) | payer SELFPAY ==
[2023-12-08 16:11] VITALS: BP 149/97; PULSE 88; RESP 19; TEMP 36.2; O2SAT 98
--- NOTE | 2023-12-08 17:57 | EDS_ITS ---
HPI HPI - Psych History of Present Illness Chief Complaint: Anxiety Detail of Chief Complaint: Anxiety Informant: patient Narrative Narrative: Patient presents to the emergency department complaint of anxiety. Patient states that she has had a lot of losses here lately and that her mother a few weeks ago and her dog few weeks ago. Her boyfriend needs to have open heart surgery. Her mother's weight was yesterday. Patient normally takes Ativan as needed for anxiety and ran out a few days ago. She cannot get a hold of her psychiatrist because it is the weekend. She feels anxious jittery and nauseated. Denies feeling suicidal or homicidal. PFSH PFSH Medical History Knee pain, right ADHD Hypertension Arthritis Hepatitis C Encounter for preventative adult health care examination MDD (major depressive disorder) Suprapubic discomfort Cellulitis of left foot Abnormal kidney function Vertigo Chronic dental pain Contact with and (suspected) exposure to other viral communicable diseases URI (upper respiratory infection) Left ankle sprain Encounter for screening for COVID-19 Acute maxillary sinusitis, unspecified Lumbar radiculopathy Right elbow pain Chronic neck pain Bee sting Chronic low back pain GERD (gastroesophageal reflux disease) PTSD (post-traumatic stress disorder) Anxiety and depression Bipolar 1 disorder Hearing loss in left ear Vision problem Pneumonia Chronic headaches Hx of emotional problems Drug abuse Chronic bronchitis Bone fracture Back problem Asthma Seasonal allergies Alcohol abuse Home Medications ?Medication ?Instructions ?Recorded ?Last Taken ?Type blood pressure monitor #1 ea 10/29/19 Unknown Rx trazodone 50 mg tablet 50 mg PO QHS PRN Sleep 03/25/20 Unknown History valacyclovir 500 mg tablet 500 mg PO DAILY 11/05/20 Unknown History budesonide-formoterol HFA 160 2 puff inhalation BID #10.2 grams 12/16/20 Unknown Rx mcg-4.5 mcg/actuation aerosol inhaler (Symbicort) albuterol sulfate 90 mcg/actuation 1 - 2 puff inhalation Q6H PRN 08/24/21 Unknown Rx aerosol inhaler (ProAir HFA) shortness of breath or wheezing #8.5 grams acetaminophen 500 mg tablet 500 mg PO Q6H PRN fever or pain 07/18/22 Unknown Rx #60 tabs glecaprevir 100 mg-pibrentasvir 40 3 tab PO DAILY 04/30/23 Unknown History mg tablet (Mavyret) atogepant 10 mg tablet (Qulipta) 10 mg PO DAILY #30 tabs 05/03/23 Unknown Rx rizatriptan 10 mg tablet See Rx Instructions PO .COMPLEX 05/03/23 Unknown Rx #10 tabs amlodipine 5 mg tablet See Rx Instructions .Route 05/11/23 Unknown Rx .COMPLEX #90 tabs baclofen 10 mg tablet 10 mg PO BID PRN muscle spasm #60 06/14/23 Unknown Rx tabs leg brace (Knee Support Brace) #1 ea 09/12/23 Unknown Rx meloxicam 15 mg tablet 15 mg PO DAILY PRN pain #30 tabs 09/12/23 Unknown Rx cyclobenzaprine 10 mg tablet 10 mg PO TID PRN Muscle Spasm #20 11/01/23 Unknown Rx TABLETS atomoxetine 80 mg capsule 80 mg PO DAILY #30 caps 11/15/23 Unknown Rx cariprazine 3 mg capsule (Vraylar) See Rx Instructions .Route 11/15/23 Unknown Rx .COMPLEX #90 caps fluoxetine 40 mg capsule See Rx Instructions .Route 11/15/23 Unknown Rx .COMPLEX #90 caps hydroxyzine pamoate 25 mg capsule See Rx Instructions .Route 11/15/23 Unknown Rx .COMPLEX #90 caps lorazepam 0.5 mg tablet 0.5 mg PO DAILY PRN anxiety #15 11/27/23 Unknown Rx tabs gabapentin 400 mg capsule See Rx Instructions .Route 12/05/23 Unknown Rx .COMPLEX #90 caps lorazepam 1 mg tablet (Ativan) 1 mg PO TID PRN anxiety #10 tabs 12/08/23 Unknown Rx Allergy/AdvReac Type Severity Reaction Status Date / Time zinc oxide Allergy Unknown Verified 11/01/23 15:27 naproxen (From Naprosyn) AdvReac Nausea Verified 11/01/23 15:27 Family History Unknown Alcoholism Anxiety Asthma Depression Myocardial infarction Suicide attempt Other Cancer Surgical History History of cholecystectomy History of oral surgery History of laparoscopic appendectomy Social History Smoking Status: Current every day smoker tobacco type: cigarettes and e- cigarettes alcohol intake: current alcohol intake frequency: a few times a month substance use type: 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, methamphetamine and other what type of physical activity do you participate in: yoga and weight training frequency: 3-4 times per week ROS ROS ED Review of Systems ROS Unobtainable: other Constitutional Constitutional ED: Reports lethargy; Denies chills, fever(s), sweats or weight loss Eyes Eyes: Denies blurry vision, change in vision or diplopia ENT ENT ED: Denies rhinorrhea or sore throat Cardiovascular Cardiovascular: Denies chest pain, orthopnea or racing heartbeat Respiratory/Chest Respiratory/Chest: Denies cough, dyspnea, dyspnea on exertion, orthopnea or sputum Gastrointestinal Gastrointestinal: Reports nausea; Denies abdominal pain, diarrhea or vomiting Genitourinary Genitourinary ED: Denies dysuria, hematuria or urinary frequency Musculoskeletal Musculoskeletal: Denies arthralgias, back pain, myalgias or neck pain Integumentary Denies abscess, Abrasions or rash Neurologic Neurologic: Denies headache(s) or weakness Psychiatric Psychiatric: Reports anxiety; Denies depression or suicidal thoughts Endocrine Endocrinology: Denies polydipsia, polyphagia or polyuria Hematologic/Lymphatic Hematologic/Lymphatic: Denies easy bleeding, easy bruising or lymphadenopathy Allergic/Immunologic Allergic/Immunologic ED: Denies mouth swelling, tongue swelling or urticaria EXAM Physical Exam Const Vital Signs: 12/08/23 16:11 Temperature 97.1 F L Temperature Source Temporal Pulse Rate 88 Respiratory Rate 19 H Blood Pressure 149/97 H Blood Pressure Mean 114 Pulse Ox 98 Oxygen Delivery Method Room Air Positive well nourished and well developed General Appearance ED: well developed and NAD HEENT Reports TM's clear and moist mucous membranes normocephalic and atraumatic; Negative for trauma or tenderness Tympanic Membrane ED: Yes TM's clear Eyes PERRL and EOMs intact bilaterally General Eye ED: Negative for pale conjunctiva or scleral icterus Neck no lymphadenopathy, supple and no JVD General: Negative for tenderness Chest Wall inspection of chest normal and palpation of chest normal Chest: Negative for tenderness Resp normal respiratory effort and clear to auscultation bilaterally Effort and Inspection: Negative for respiratory distress or pain with movement Auscultation: Negative for rhonchi, wheezes or diminished lung sounds Cardio regular rate, regular rhythm, S1 normal heart sound, S2 normal heart sound and no murmurs Peripheral Pulses: pulses 2+ throughout GI normal to inspection, nondistended, normoactive bowel sounds, soft to palpation, non-tender, non-distended and no masses Back/Spine no CVA tenderness and no thoracic nor lumbar tenderness Extremity normal to inspection General Extremety ED: Negative for edema General Extremity: Negative for edema Neuro oriented x3, CN's II-XII intact bilaterally, no sensory deficits noted and gait normal Sensorium / Orientation: awake, alert, oriented to person, oriented to place and oriented to time Motor Exam: strength 5/5 throughout and strength abnormal Psych mental status grossly normal Skin no rashes or lesions noted and no wounds MDM MDM MDM Narrative Medical decision making narrative: Patient presents with increased stressors and feeling anxious. She ran out of her Ativan. I will give her a dose of Ativan 1 mg p.o. here. I will write her prescription for 10 Ativan tablets as needed for anxiety. She is advised to follow-up with her psychiatrist for further refills. Discharge Plan Triage Chief Complaint: Anxiety ED Provider: David Persaud Dx/Rx/DC Orders Clinical Impression: Anxiety Instructions: ED Panic Attack Prescriptions: New lorazepam [Ativan] 1 mg tablet 1 mg PO TID PRN (Reason: anxiety) Qty: 10 0RF No Action trazodone 50 mg tablet 50 mg PO QHS PRN (Reason: Sleep) acetaminophen 500 mg tablet 500 mg PO Q6H PRN (Reason: fever or pain) Qty: 60 1RF Qulipta 10 mg tablet 10 mg PO DAILY Qty: 30 1RF rizatriptan 10 mg tablet See Rx Instructions PO .COMPLEX Qty: 10 3RF Rx Instructions: take 1 tab at onset of headache; if no relief may repeat 1 tab after at least 2 hrs; max = 3 tabs/24 hr PO baclofen 10 mg tablet 10 mg PO BID PRN (Reason: muscle spasm) Qty: 60 1RF meloxicam 15 mg tablet 15 mg PO DAILY PRN (Reason: pain) Qty: 30 1RF (DME) Knee Support Brace Misc See Rx Instructions .Route Qty: 1 0RF Rx Instructions: As directed hydroxyzine pamoate 25 mg capsule See Rx Instructions .ROUTE .COMPLEX Qty: 90 1RF Dose Instruction: TAKE 1 CAPSULE BY MOUTH AT BEDTIME Rx Instructions: TAKE 1 CAPSULE BY MOUTH AT BEDTIME fluoxetine 40 mg capsule See Rx Instructions .ROUTE .COMPLEX Qty: 90 1RF Dose Instruction: TAKE 1 CAPSULE BY MOUTH DAILY Rx Instructions: TAKE 1 CAPSULE BY MOUTH DAILY atomoxetine 80 mg capsule 80 mg PO DAILY Qty: 30 2RF Vraylar 3 mg capsule See Rx Instructions .ROUTE .COMPLEX Qty: 90 1RF Dose Instruction: TAKE 1 CAPSULE BY MOUTH DAILY Rx Instructions: TAKE 1 CAPSULE BY MOUTH DAILY valacyclovir 500 mg tablet 500 mg PO DAILY Mavyret 100-40 mg tablet 3 tab PO DAILY Rx Instructions: must administer with a meal/food cyclobenzaprine 10 mg tablet 10 mg PO TID PRN (Reason: Muscle Spasm) Qty: 20 0RF (DME) blood pressure monitor Kit See Rx Instructions .ROUTE .MEDSUPPLY Qty: 1 0RF Rx Instructions: Check blood pressure daily for hypertension I10 Symbicort 160-4.5 mcg/actuation HFA aerosol inhaler 2 puff INHALATION BID Qty: 10.2 3RF albuterol sulfate [ProAir HFA] 90 mcg/actuation HFA aerosol inhaler 1 - 2 puff inhalation Q6H PRN (Reason: shortness of breath or wheezing) Qty: 8.5 2RF amlodipine 5 mg tablet See Rx Instructions .ROUTE .COMPLEX Qty: 90 2RF Dose Instruction: take 1 tablet by mouth daily Rx Instructions: take 1 tablet by mouth daily lorazepam 0.5 mg tablet 0.5 mg PO DAILY PRN (Reason: anxiety) Qty: 15 0RF gabapentin 400 mg capsule See Rx Instructions .ROUTE .COMPLEX Qty: 90 0RF Dose Instruction: take 1 capsule by mouth every 8 hours Rx Instructions: take 1 capsule by mouth every 8 hours; Primary Care Provider: Navi Kemp Referrals: Navi Kemp MD [Primary Care Provider] - Activity Restrictions/Additional Instructions: Follow-up with your psychiatrist for further refills of your anxiety medications. Print Language: Ukrainian Disposition Disposition: Home, Self Care
[2023-12-08 18:06] VITALS: BP 127/90; PULSE 76; RESP 16; TEMP 35.9; O2SAT 99
[2023-12-08] MEDS: LORazepam 1 MG Tablet PO (18:08)
--- NOTE | 2023-12-08 18:30 | CM.ED ---
Social Work: Date of referral: 12/08/23 Reason for referral: Anxiety/grief Referred by: Social Work Identification Patient provided consent to meet with social services coordinator. Patient reported that her mother unexpectedly on 11/26/23, patient's dog a week later and patient's significant other is currently in [place] at [facility] awaiting a heart surgery on 12/11/23. Patient reported she see's a psychiatrist, Dr. Gibbs who had prescribed her Ativan however she ran out and needed a refill. Patient stated her mother's service was just held yesterday and she's having a hard time. Patient reported she also recently lost her insurance. Patient stated her father is involved and is supportive and is taking care of her daughter this weekend. Patient stated she and her daughter are going to get involved with [employer], and has been involved with [employer]. Patient denied having any thoughts of wanting to self harm and also reported she received information already to get connected to insurance. retail salesworker also provided patient with other counseling resources, specifically grief counseling. Patient denied any additional concerns or needs at this time. Pratima Crawford, VP DATA, ACCOUNT SERVICES ANALYST
== END 2023-12-08 18:33 | disposition home or self-care (01) ==
PROVIDERS: Emergency Provider Emergency Medicine; PCP Internal Medicine; Visit Provider Emergency Medicine
DX: F41.9 Anxiety disorder, unspecified (principal); I10 Essential (primary) hypertension; R11.0 Nausea; F10.10 Alcohol abuse, uncomplicated; F17.210 Nicotine dependence, cigarettes, uncomplicated; F17.290 Nicotine dependence, other tobacco product, uncomplicated; Z79.899 Other long term (current) drug therapy
CPT/HCPCS: 99282

== ENCOUNTER 2023-12-19 15:16 | Emergency (ER) | payer SELFPAY ==
[2023-12-19 15:17] VITALS: BP 135/95; PULSE 95; RESP 20; TEMP 36.1; O2SAT 99; BMI 29.4
--- NOTE | 2023-12-19 16:52 | EDS_ITS ---
HPI History of Present Illness Chief Complaint: Ear Problem Narrative Narrative: Patient is a 33-year-old female with past medical history of hypertension, hepatitis C, depression, GERD, bipolar disorder who presents to the emergency department with chief complaint of left ear pain. Patient notes that earlier today she developed left-sided ear pain prompting her to come here for the valuation management. Patient states that she has also has had a lot of congestion recently as well and notes that she does have allergies and attempts to use decongestions at home. Patient states that she not take anything for pain prior to arrival here. Patient denies any recent sick contacts. Patient states that she did eat some food earlier today and drank fluids without any difficulty. PFSH PFSH Medical History Knee pain, right ADHD Hypertension Arthritis Hepatitis C Encounter for preventative adult health care examination MDD (major depressive disorder) Suprapubic discomfort Cellulitis of left foot Abnormal kidney function Vertigo Chronic dental pain Contact with and (suspected) exposure to other viral communicable diseases URI (upper respiratory infection) Left ankle sprain Encounter for screening for COVID-19 Acute maxillary sinusitis, unspecified Lumbar radiculopathy Right elbow pain Chronic neck pain Bee sting Chronic low back pain GERD (gastroesophageal reflux disease) PTSD (post-traumatic stress disorder) Anxiety and depression Bipolar 1 disorder Hearing loss in left ear Vision problem Pneumonia Chronic headaches Hx of emotional problems Drug abuse Chronic bronchitis Bone fracture Back problem Asthma Seasonal allergies Alcohol abuse Home Medications ?Medication ?Instructions ?Recorded ?Last Taken ?Type blood pressure monitor #1 ea 10/29/19 Unknown Rx trazodone 50 mg tablet 50 mg PO QHS PRN Sleep 03/25/20 Unknown History valacyclovir 500 mg tablet 500 mg PO DAILY 11/05/20 Unknown History budesonide-formoterol HFA 160 2 puff inhalation BID #10.2 grams 12/16/20 Unknown Rx mcg-4.5 mcg/actuation aerosol inhaler (Symbicort) albuterol sulfate 90 mcg/actuation 1 - 2 puff inhalation Q6H PRN 08/24/21 Unknown Rx aerosol inhaler (ProAir HFA) shortness of breath or wheezing #8.5 grams acetaminophen 500 mg tablet 500 mg PO Q6H PRN fever or pain 07/18/22 Unknown Rx #60 tabs glecaprevir 100 mg-pibrentasvir 40 3 tab PO DAILY 04/30/23 Unknown History mg tablet (Mavyret) atogepant 10 mg tablet (Qulipta) 10 mg PO DAILY #30 tabs 05/03/23 Unknown Rx rizatriptan 10 mg tablet See Rx Instructions PO .COMPLEX 05/03/23 Unknown Rx #10 tabs amlodipine 5 mg tablet See Rx Instructions .Route 05/11/23 Unknown Rx .COMPLEX #90 tabs baclofen 10 mg tablet 10 mg PO BID PRN muscle spasm #60 06/14/23 Unknown Rx tabs leg brace (Knee Support Brace) #1 ea 09/12/23 Unknown Rx meloxicam 15 mg tablet 15 mg PO DAILY PRN pain #30 tabs 09/12/23 Unknown Rx cyclobenzaprine 10 mg tablet 10 mg PO TID PRN Muscle Spasm #20 11/01/23 Unknown Rx TABLETS atomoxetine 80 mg capsule 80 mg PO DAILY #30 caps 11/15/23 Unknown Rx cariprazine 3 mg capsule (Vraylar) See Rx Instructions .Route 11/15/23 Unknown Rx .COMPLEX #90 caps fluoxetine 40 mg capsule See Rx Instructions .Route 11/15/23 Unknown Rx .COMPLEX #90 caps hydroxyzine pamoate 25 mg capsule See Rx Instructions .Route 11/15/23 Unknown Rx .COMPLEX #90 caps gabapentin 400 mg capsule See Rx Instructions .Route 12/05/23 Unknown Rx .COMPLEX #90 caps lorazepam 1 mg tablet (Ativan) 1 mg PO TID PRN anxiety #10 tabs 12/08/23 Unknown Rx lorazepam 0.5 mg tablet 0.5 mg PO DAILY PRN anxiety #15 12/12/23 Unknown Rx tabs Allergy/AdvReac Type Severity Reaction Status Date / Time zinc oxide Allergy Unknown Verified 12/19/23 15:17 naproxen (From Naprosyn) AdvReac Nausea Verified 12/19/23 15:17 Family History Unknown Alcoholism Anxiety Asthma Depression Myocardial infarction Suicide attempt Other Cancer Surgical History History of cholecystectomy History of oral surgery History of laparoscopic appendectomy Social History Smoking Status: Current every day smoker tobacco type: cigarettes and e- cigarettes alcohol intake: current alcohol intake frequency: a few times a month substance use type: 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, methamphetamine and other what type of physical activity do you participate in: yoga and weight training frequency: 3-4 times per week ROS ROS ED ROS Narrative Constitutional: Denies any headaches, fevers, chills, lightheadedness, dizziness Eyes: Denies change in vision double vision blurry vision Ears, nose, throat: Complains of left ear pain as noted above, and sore throat, denies any difficulty swallowing Cardiovascular: Denies chest pain or palpitations Respiratory: Denies coughing wheezing shortness of breath Abdomen: Denies abdominal pain nausea vomiting diarrhea : Denies any urinary symptoms Neurological: Denies numbness, weakness, tingling Musculoskeletal: Denies back pain Skin: Denies rashes or lesions EXAM Physical Exam Narrative Exam Narrative: General: Patient was lying in bed rest comfortably did not appear to be in acute distress Head: Atraumatic, normocephalic, no tenderness palpation bilaterally over the temporal arteries Eyes: PERRL bilaterally, EOMI bilaterally, no conjunctival injection noted Ears, nose, throat: TMs visualized bilaterally no evidence of acute otitis media of the left TM does have fluid behind her ear noted, no concern for external otitis media bilaterally, posterior pharynx visualized no erythema noted uvula was midline, no sublingual swelling no intraoral lesions noted. No concern for mastoiditis. Neck: Soft, supple, trachea midline, no concern for German's angina, no concern for meningitis Cardiovascular: Regular rate and rhythm no murmurs gallops rubs noted Respiratory: Clear to auscultation bilaterally no rales rhonchi wheeze noted Abdomen: No tenderness palpation Extremities: +5/5 strength noted in the bilateral upper and lower extremities Neurological: Patient following commands knew that she was at [facility] there is 2023 Skin: Warm, dry, intact, no rashes or swelling noted Const Vital Signs: 12/19/23 15:17 12/19/23 17:31 Temperature 97 F L 97.6 F L Temperature Source Temporal Pulse Rate 95 87 Respiratory Rate 20 H 18 Blood Pressure 135/95 H 135/82 H Blood Pressure Mean 108 99 Pulse Ox 99 99 Oxygen Delivery Method Room Air MDM MDM MDM Narrative Medical decision making narrative: Patient is a 33-year-old female who presented to the emergency department chief complaint of left ear pain and a sore throat. Patient will have a workup performed here on the differential diagnose includes but limited to allergies, influenza, COVID, upper respiratory infection secondary to other viral etiology, viral pharyngitis. Once workup is obtained reviewed she will be reevaluated. Patient be given Tylenol. On reevaluation the patient and she would like to go home at this point in time. Her strep test was negative and her COVID flu and RSV were negative as well. I explained to the patient she likely has a upper respiratory infection second viral etiology and her left ear pain is from the fluid noted behind it however does not appear to be active otitis media therefore no antibiotics are indicated. She was encouraged to continue to use decongestants at home. Patient was encouraged return if worsening symptoms any concerns. She is encouraged to follow-up with her primary care physician outpatient setting. All question concerns answered she was discharged home in stable condition. Patient is agreeable this plan. Discharge Plan Triage Chief Complaint: Ear Problem ED Provider: Flo Price Dx/Rx/DC Orders Clinical Impression: Upper respiratory infection, viral, Ear pain, left Prescriptions: No Action trazodone 50 mg tablet 50 mg PO QHS PRN (Reason: Sleep) acetaminophen 500 mg tablet 500 mg PO Q6H PRN (Reason: fever or pain) Qty: 60 1RF Qulipta 10 mg tablet 10 mg PO DAILY Qty: 30 1RF rizatriptan 10 mg tablet See Rx Instructions PO .COMPLEX Qty: 10 3RF Rx Instructions: take 1 tab at onset of headache; if no relief may repeat 1 tab after at least 2 hrs; max = 3 tabs/24 hr PO baclofen 10 mg tablet 10 mg PO BID PRN (Reason: muscle spasm) Qty: 60 1RF meloxicam 15 mg tablet 15 mg PO DAILY PRN (Reason: pain) Qty: 30 1RF (DME) Knee Support Brace Misc See Rx Instructions .Route Qty: 1 0RF Rx Instructions: As directed hydroxyzine pamoate 25 mg capsule See Rx Instructions .ROUTE .COMPLEX Qty: 90 1RF Dose Instruction: TAKE 1 CAPSULE BY MOUTH AT BEDTIME Rx Instructions: TAKE 1 CAPSULE BY MOUTH AT BEDTIME fluoxetine 40 mg capsule See Rx Instructions .ROUTE .COMPLEX Qty: 90 1RF Dose Instruction: TAKE 1 CAPSULE BY MOUTH DAILY Rx Instructions: TAKE 1 CAPSULE BY MOUTH DAILY atomoxetine 80 mg capsule 80 mg PO DAILY Qty: 30 2RF Vraylar 3 mg capsule See Rx Instructions .ROUTE .COMPLEX Qty: 90 1RF Dose Instruction: TAKE 1 CAPSULE BY MOUTH DAILY Rx Instructions: TAKE 1 CAPSULE BY MOUTH DAILY valacyclovir 500 mg tablet 500 mg PO DAILY Mavyret 100-40 mg tablet 3 tab PO DAILY Rx Instructions: must administer with a meal/food cyclobenzaprine 10 mg tablet 10 mg PO TID PRN (Reason: Muscle Spasm) Qty: 20 0RF lorazepam [Ativan] 1 mg tablet 1 mg PO TID PRN (Reason: anxiety) Qty: 10 0RF (DME) blood pressure monitor Kit See Rx Instructions .ROUTE .MEDSUPPLY Qty: 1 0RF Rx Instructions: Check blood pressure daily for hypertension I10 Symbicort 160-4.5 mcg/actuation HFA aerosol inhaler 2 puff INHALATION BID Qty: 10.2 3RF albuterol sulfate [ProAir HFA] 90 mcg/actuation HFA aerosol inhaler 1 - 2 puff inhalation Q6H PRN (Reason: shortness of breath or wheezing) Qty: 8.5 2RF amlodipine 5 mg tablet See Rx Instructions .ROUTE .COMPLEX Qty: 90 2RF Dose Instruction: take 1 tablet by mouth daily Rx Instructions: take 1 tablet by mouth daily gabapentin 400 mg capsule See Rx Instructions .ROUTE .COMPLEX Qty: 90 0RF Dose Instruction: take 1 capsule by mouth every 8 hours Rx Instructions: take 1 capsule by mouth every 8 hours; lorazepam 0.5 mg tablet 0.5 mg PO DAILY PRN (Reason: anxiety) Qty: 15 0RF Stand Alone Forms: ED Work / School Excuse Primary Care Provider: Navi Kemp Referrals: Navi Kemp MD [Primary Care Provider] - Activity Restrictions/Additional Instructions: Follow-up with your primary care physician outpatient setting. Use the decongestants as we noted here in the emergency department. Continue to rotate Tylenol ibuprofen [id number]. Return with worsening symptoms or any other concerns as discussed here. Print Language: Divehi Disposition Disposition: Home, Self Care
[2023-12-19 17:31] VITALS: BP 135/82; PULSE 87; RESP 18; TEMP 36.4; O2SAT 99
== END 2023-12-19 18:09 | disposition home or self-care (01) ==
PROVIDERS: Emergency Provider Emergency Medicine; PCP Internal Medicine; Visit Provider Emergency Medicine
DX: J06.9 Acute upper respiratory infection, unspecified (principal); F31.9 Bipolar disorder, unspecified; H92.02 Otalgia, left ear; F17.210 Nicotine dependence, cigarettes, uncomplicated; F17.290 Nicotine dependence, other tobacco product, uncomplicated
CPT/HCPCS: 87631; 87651; 99282

== ENCOUNTER 2024-01-16 10:53 | Emergency (ER) | payer SELFPAY ==
[2024-01-16 10:54] VITALS: BP 124/82; PULSE 106; RESP 16; TEMP 36.6; O2SAT 100; BMI 31.1
--- NOTE | 2024-01-16 11:45 | RAD_ITS ---
STUDY: X-RAY CHEST REASON FOR EXAM: Female, 33 years old. Cough TECHNIQUE: Frontal and lateral views of the chest COMPARISON: 08/14/2022 FINDINGS: There are mild patchy airspace opacity in the right lower lobe which is consistent with a mild infectious etiology. The lungs are otherwise clear. There are no pleural effusions. There is no pneumothorax. The heart is normal in size. The visualized osseous structures are within normal limits. RAD/Chest PA and Lateral IMPRESSION: Mild patchy airspace opacity in the right lower lobe which is consistent with a mild infectious etiology. Electronically Signed: Azael Santoyo MD at 12:17 EDT ,
[2024-01-16] MEDS: oxyCODONE 5 MG Tablet 10 MG PO (11:50)
[2024-01-16] MEDS: Ondansetron ODT 4 MG Tablet PO (11:50)
[2024-01-16] MEDS: dexAMETHasone 10 MG/ML Vial PO.IVFORM (11:50)
--- NOTE | 2024-01-16 12:57 | EX.ED.DYSGE1 ---
HPI History of Present Illness Chief Complaint: General Illness Informant: patient and spouse/S.O. Narrative Narrative: Patient is a 33-year-old female with past medical history hypertension hepatitis C bipolar disorder and asthma with tobacco abuse. She states that she has had 2 to 3 days of increased congestion and cough and then she also had generalized fatigue and muscle ache. She states she has been exposed to someone with pneumonia at work. She reports she feels her symptoms have been slowly worsening over the last few days and with concern for infection comes in for evaluation [facility] Medical History Knee pain, right ADHD Hypertension Arthritis Hepatitis C Encounter for preventative adult health care examination MDD (major depressive disorder) Suprapubic discomfort Cellulitis of left foot Abnormal kidney function Vertigo Chronic dental pain Contact with and (suspected) exposure to other viral communicable diseases URI (upper respiratory infection) Left ankle sprain Encounter for screening for COVID-19 Acute maxillary sinusitis, unspecified Lumbar radiculopathy Right elbow pain Chronic neck pain Bee sting Chronic low back pain GERD (gastroesophageal reflux disease) PTSD (post-traumatic stress disorder) Anxiety and depression Bipolar 1 disorder Hearing loss in left ear Vision problem Pneumonia Chronic headaches Hx of emotional problems Drug abuse Chronic bronchitis Bone fracture Back problem Asthma Seasonal allergies Alcohol abuse Home Medications ?Medication ?Instructions ?Recorded ?Last Taken ?Type blood pressure monitor #1 ea 10/29/19 Unknown Rx trazodone 50 mg tablet 50 mg PO QHS PRN Sleep 03/25/20 Unknown History valacyclovir 500 mg tablet 500 mg PO DAILY 11/05/20 Unknown History budesonide-formoterol HFA 160 2 puff inhalation BID #10.2 grams 12/16/20 Unknown Rx mcg-4.5 mcg/actuation aerosol inhaler (Symbicort) albuterol sulfate 90 mcg/actuation 1 - 2 puff inhalation Q6H PRN 08/24/21 Unknown Rx aerosol inhaler (ProAir HFA) shortness of breath or wheezing #8.5 grams acetaminophen 500 mg tablet 500 mg PO Q6H PRN fever or pain 07/18/22 Unknown Rx #60 tabs atogepant 10 mg tablet (Qulipta) 10 mg PO DAILY #30 tabs 05/03/23 Unknown Rx rizatriptan 10 mg tablet See Rx Instructions PO .COMPLEX 05/03/23 Unknown Rx #10 tabs amlodipine 5 mg tablet See Rx Instructions .Route 05/11/23 Unknown Rx .COMPLEX #90 tabs baclofen 10 mg tablet 10 mg PO BID PRN muscle spasm #60 06/14/23 Unknown Rx tabs leg brace (Knee Support Brace) #1 ea 09/12/23 Unknown Rx meloxicam 15 mg tablet 15 mg PO DAILY PRN pain #30 tabs 09/12/23 Unknown Rx atomoxetine 80 mg capsule 80 mg PO DAILY #30 caps 11/15/23 Unknown Rx cariprazine 3 mg capsule (Vraylar) See Rx Instructions .Route 11/15/23 Unknown Rx .COMPLEX #90 caps fluoxetine 40 mg capsule See Rx Instructions .Route 11/15/23 Unknown Rx .COMPLEX #90 caps hydroxyzine pamoate 25 mg capsule See Rx Instructions .Route 11/15/23 Unknown Rx .COMPLEX #90 caps lorazepam 0.5 mg tablet 0.5 mg PO DAILY PRN anxiety #15 12/12/23 Unknown Rx tabs gabapentin 400 mg capsule See Rx Instructions .Route 01/09/24 Unknown Rx .COMPLEX #90 caps doxycycline hyclate 100 mg capsule 100 mg PO BID 10 days #20 caps 01/16/24 Unknown Rx prednisone 20 mg tablet 40 mg (2 x 20 mg) PO DAILY 5 days 01/16/24 Unknown Rx #10 tabs pseudoephedrine 30 mg-codeine 10 10 ml PO 4X/DAY PRN cough 5 days 01/16/24 Unknown Rx mg-guaifen 200 mg/5 mL oral liquid #200 mL Allergy/AdvReac Type Severity Reaction Status Date / Time zinc oxide Allergy Unknown Verified 01/16/24 10:56 naproxen (From Naprosyn) AdvReac Nausea Verified 01/16/24 10:56 Family History Unknown Alcoholism Anxiety Asthma Depression Myocardial infarction Suicide attempt Other Cancer Surgical History History of cholecystectomy History of oral surgery History of laparoscopic appendectomy Social History Smoking Status: Current every day smoker tobacco type: cigarettes and e-cigarettes alcohol intake: current alcohol intake frequency: a few times a month substance use type: 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, methamphetamine and other what type of physical activity do you participate in: yoga and weight training frequency: 3-4 times per week ROS ROS ED Constitutional Constitutional ED: Denies chills or fever(s) Eyes Eyes: Denies blurry vision or change in vision ENT ENT ED: Reports rhinorrhea and sore throat Cardiovascular Cardiovascular: Denies chest pain Respiratory/Chest Respiratory/Chest: Reports cough; Denies dyspnea Gastrointestinal Gastrointestinal: Reports nausea; Denies abdominal pain, diarrhea or vomiting Genitourinary Genitourinary ED: Denies dysuria Musculoskeletal Musculoskeletal: Reports myalgias Integumentary Denies rash Neurologic Neurologic: Reports headache(s) Hematologic/Lymphatic Hematologic/Lymphatic: Denies easy bleeding or easy bruising Allergic/Immunologic Allergic/Immunologic ED: Denies mouth swelling or tongue swelling EXAM Physical Exam Const Vital Signs: 01/16/24 10:54 01/16/24 11:54 01/16/24 13:20 Temperature 97.8 F 97.9 F Temperature Source Temporal Pulse Rate 106 H 67 Respiratory Rate 16 14 Respiratory Effort Normal Blood Pressure 124/82 H 115/74 Blood Pressure Mean 96 87 Pulse Ox 100 100 Oxygen Delivery Method Room Air Positive well nourished and well developed General Appearance ED: well developed; Negative for pallor HEENT HEENT Narrative: No tongue or lip swelling no oral lesions no airway edema or compromise There is cobblestoning the posterior pharynx consistent with sinus drainage No secondary findings to suggest infection Bilateral TMs are retracted without secondary changes to suggest infection Nasal mucosa is hyperemic and boggy with enlarged inferior nasal turbinates Eyes PERRL and EOMs intact bilaterally Neck supple Neck Narrative: No nuchal rigidity or meningeal signs Chest Wall palpation of chest normal Resp normal respiratory effort Resp Narrative: Breath sounds are diminished throughout with faint rhonchi and wheeze in the bilateral lower lobes without signs of respiratory distress Cardio regular rate and regular rhythm GI normal to inspection, nondistended, normoactive bowel sounds, non-tender, non-distended and no masses Auscultation: normoactive bowel sounds Palpation: soft Extremity normal to inspection Extremity Narrative: No asymmetric edema no pitting edema negative Homans' sign bilaterally Neuro oriented x3, CN's II-XII intact bilaterally and no sensory deficits noted Sensorium / Orientation: alert Motor Exam: strength 5/5 throughout Psych mental status grossly normal Skin no rashes or lesions noted General Skin Exam: Negative for jaundice or pallor MDM MDM MDM Narrative Medical decision making narrative: Patient arrived to the ER with stable vitals and in no signs of respiratory distress. Symptoms are consistent with viral infection such as COVID versus influenza versus RSV but with her exposure at work there is also concern for secondary pneumonia. She is not hypoxic or in respiratory distress she does not have a fever nor is she hypotensive and my concern for systemic infection is low so do not feel there is need for blood work. A viral swab was obtained which was negative but x-ray did show changes concerning for pneumonia. As her viral swab is negative she be placed on antibiotics but as she is not hypoxic or showing signs of respiratory distress or requiring supplemental oxygen there is no need for admission and she is otherwise safe for discharge History & Record Review Discussion w/independent historian: Patient and Significant other Radiography Diagnostic Testing: Clinical Impression(s) from Imaging Studies Chest X-Ray 01/16/24 11:45 IMPRESSION: Mild patchy airspace opacity in the right lower lobe which is consistent with a mild infectious etiology. Electronically Signed: Azael Santoyo MD at 12:17 EDT , 2 view chest x-ray as interpreted by the emergency medicine physician reveals hazy opacity in the right lower lobe concerning for developing pneumonia Discharge Plan Triage Chief Complaint: General Illness ED Provider: Faraz Santana Dx/Rx/DC Orders Clinical Impression: Pneumonia, Hypertension, Asthma, Bipolar disorder Instructions: Treating Pneumonia Prescriptions: New doxycycline hyclate 100 mg capsule 100 mg PO BID 10 Days Qty: 20 0RF prednisone 20 mg tablet 40 mg PO DAILY 5 Days Qty: 10 0RF [id number] 30-10-200 mg/5 mL liquid 10 ml PO 4X/DAY PRN (Reason: cough) 5 Days Qty: 200 0RF No Action trazodone 50 mg tablet 50 mg PO QHS PRN (Reason: Sleep) acetaminophen 500 mg tablet 500 mg PO Q6H PRN (Reason: fever or pain) Qty: 60 1RF Qulipta 10 mg tablet 10 mg PO DAILY Qty: 30 1RF rizatriptan 10 mg tablet See Rx Instructions PO .COMPLEX Qty: 10 3RF Rx Instructions: take 1 tab at onset of headache; if no relief may repeat 1 tab after at least 2 hrs; max = 3 tabs/24 hr PO baclofen 10 mg tablet 10 mg PO BID PRN (Reason: muscle spasm) Qty: 60 1RF meloxicam 15 mg tablet 15 mg PO DAILY PRN (Reason: pain) Qty: 30 1RF (DME) Knee Support Brace Misc See Rx Instructions .Route Qty: 1 0RF Rx Instructions: As directed hydroxyzine pamoate 25 mg capsule See Rx Instructions .ROUTE .COMPLEX Qty: 90 1RF Dose Instruction: TAKE 1 CAPSULE BY MOUTH AT BEDTIME Rx Instructions: TAKE 1 CAPSULE BY MOUTH AT BEDTIME fluoxetine 40 mg capsule See Rx Instructions .ROUTE .COMPLEX Qty: 90 1RF Dose Instruction: TAKE 1 CAPSULE BY MOUTH DAILY Rx Instructions: TAKE 1 CAPSULE BY MOUTH DAILY atomoxetine 80 mg capsule 80 mg PO DAILY Qty: 30 2RF Vraylar 3 mg capsule See Rx Instructions .ROUTE .COMPLEX Qty: 90 1RF Dose Instruction: TAKE 1 CAPSULE BY MOUTH DAILY Rx Instructions: TAKE 1 CAPSULE BY MOUTH DAILY valacyclovir 500 mg tablet 500 mg PO DAILY (DME) blood pressure monitor Kit See Rx Instructions .ROUTE .MEDSUPPLY Qty: 1 0RF Rx Instructions: Check blood pressure daily for hypertension I10 Symbicort 160-4.5 mcg/actuation HFA aerosol inhaler 2 puff INHALATION BID Qty: 10.2 3RF albuterol sulfate [ProAir HFA] 90 mcg/actuation HFA aerosol inhaler 1 - 2 puff inhalation Q6H PRN (Reason: shortness of breath or wheezing) Qty: 8.5 2RF amlodipine 5 mg tablet See Rx Instructions .ROUTE .COMPLEX Qty: 90 2RF Dose Instruction: take 1 tablet by mouth daily Rx Instructions: take 1 tablet by mouth daily lorazepam 0.5 mg tablet 0.5 mg PO DAILY PRN (Reason: anxiety) Qty: 15 0RF gabapentin 400 mg capsule See Rx Instructions .ROUTE .COMPLEX Qty: 90 0RF Dose Instruction: take 1 capsule by mouth every 8 hours Rx Instructions: take 1 capsule by mouth every 8 hours; Stand Alone Forms: ED Work / School Excuse Primary Care Provider: Navi Kemp Referrals: Navi Kemp MD [Primary Care Provider] - Print Language: Yoruba Disposition Disposition: Home, Self Care Discharge Date/Time: 01/16/24 13:21
[2024-01-16] MEDS: Doxycycline 100 MG CAPSULE PO (13:17)
[2024-01-16 13:20] VITALS: BP 115/74; PULSE 67; RESP 14; TEMP 36.6; O2SAT 100
== END 2024-01-16 13:21 | disposition home or self-care (01) ==
PROVIDERS: Emergency Provider Emergency Medicine; PCP Internal Medicine; Visit Provider Emergency Medicine
DX: J18.9 Pneumonia, unspecified organism (principal); F31.9 Bipolar disorder, unspecified; J45.909 Unspecified asthma, uncomplicated; I10 Essential (primary) hypertension; F17.210 Nicotine dependence, cigarettes, uncomplicated; F17.290 Nicotine dependence, other tobacco product, uncomplicated; Z79.51 Long term (current) use of inhaled steroids; Z79.899 Other long term (current) drug therapy
CPT/HCPCS: 71046; 87631; 99282

== ENCOUNTER → 2024-02-01 | Outpatient (CLI) | payer MEDICAID, SELFPAY ==
[2024-02-01 15:13] LABS: Absolute Lymphocyte Count 1.41 X10^3/uL (0.83-4.51); Absolute Neutrophil Count 5.3 X10^3/uL (2.0-7.7); Basophil# 0.09 X10^3/uL; Basophil% 1.2 % (0-1); Eosinophil# 0.04 X10^3/uL; Eosinophils% 0.5 % (0-5); Hemoglobin 15.4 g/dL (12.0-15.0); Lymphocyte # 1.41 X10^3/ul (0.83-4.51); Lymphocyte % 18.6 % (19-41); Mean Corp Hgb Conc 32.8 g/dL (32-36); Mean Corpuscular Hgb 29.3 pg (27.0-32.0); Mean Corpuscular Volume 89.4 fL (81-99); Mean Platelet Vol. 10.6 fl (6.2-12.0); Monocyte# 0.73 X10^3/uL; Monocyte% 9.6 % (0-10); NRBC Flagged by Analyzer 0 % (0-5); Neutrophil # 5.28 X10^3/uL (2.7-7.7); Neutrophil % 69.8 % (47-70); Platelet Count 428 K/mm3 (150-450); RBC Distribution Width CV 13.1 % (11.6-14.6); RBC Distribution Width SD 42.5 fl (35.1-43.9); Red Blood Count 5.26 M/mm3 (4.2-5.4); White Blood Count 7.6 K/mm3 (4.4-11.0)
== END | disposition home or self-care (01) ==
PROVIDERS: PCP Internal Medicine; Referring Provider Physician Assistant; Visit Provider Physician Assistant
DX: R19.7 Diarrhea, unspecified (principal)
CPT/HCPCS: 36415; 84443; 85025

== ENCOUNTER → 2024-02-05 | Outpatient (CLI) | payer MEDICAID, SELFPAY | END | disposition home or self-care (01) | LOC: LABSPEC 14:44 | PROVIDERS: PCP Internal Medicine; Referring Provider Physician Assistant; Visit Provider Physician Assistant | DX: R19.7 Diarrhea, unspecified (principal); K58.9 Irritable bowel syndrome, unspecified | CPT/HCPCS: 87177; 87209; 87329; 87493; 87506 ==

== ENCOUNTER 2024-02-06 16:24 | Emergency (ER) | payer MEDICAID, SELFPAY ==
[2024-02-06 16:25] VITALS: BP 127/90; PULSE 110; RESP 18; TEMP 36; O2SAT 99; BMI 29.2
--- NOTE | 2024-02-06 16:43 | EX.ED.DYSGE1 ---
HPI History of Present Illness Chief Complaint: Dizziness Informant: patient Narrative Narrative: 33-year-old female states she has been having intermittent dizziness that feels like spinning associated with nausea for the past week. Episodes been intermittent and relatively short-lived. Better when she remains still, triggered by movements. Today was she was shopping at [employer] and change position. Yesterday she was on the toilet and looked down and had an episode. She has had no vomiting. No loss of consciousness. No peripheral neurologic symptoms. States she had pneumonia couple weeks ago and this started less than 1 week after that. She has tinnitus in both ears. She gets migraines but not specifically with this in the past week. PFSH PFSH Medical History Knee pain, right ADHD Hypertension Arthritis Hepatitis C Encounter for preventative adult health care examination MDD (major depressive disorder) Suprapubic discomfort Cellulitis of left foot Abnormal kidney function Vertigo Chronic dental pain Contact with and (suspected) exposure to other viral communicable diseases URI (upper respiratory infection) Left ankle sprain Encounter for screening for COVID-19 Acute maxillary sinusitis, unspecified Lumbar radiculopathy Right elbow pain Chronic neck pain Bee sting Chronic low back pain GERD (gastroesophageal reflux disease) PTSD (post-traumatic stress disorder) Anxiety and depression Bipolar 1 disorder Hearing loss in left ear Vision problem Pneumonia Chronic headaches Hx of emotional problems Drug abuse Chronic bronchitis Bone fracture Back problem Asthma Seasonal allergies Alcohol abuse Home Medications ?Medication ?Instructions ?Recorded ?Last Taken ?Type blood pressure monitor #1 ea 10/29/19 Unknown Rx valacyclovir 500 mg tablet 500 mg PO DAILY 11/05/20 Unknown History budesonide-formoterol HFA 160 2 puff inhalation BID #10.2 grams 12/16/20 Unknown Rx mcg-4.5 mcg/actuation aerosol inhaler (Symbicort) albuterol sulfate 90 mcg/actuation 1 - 2 puff inhalation Q6H PRN 08/24/21 Unknown Rx aerosol inhaler (ProAir HFA) shortness of breath or wheezing #8.5 grams acetaminophen 500 mg tablet 500 mg PO Q6H PRN fever or pain 07/18/22 Unknown Rx #60 tabs amlodipine 5 mg tablet See Rx Instructions .Route 05/11/23 Unknown Rx .COMPLEX #90 tabs leg brace (Knee Support Brace) #1 ea 09/12/23 Unknown Rx meloxicam 15 mg tablet 15 mg PO DAILY PRN pain #30 tabs 09/12/23 Unknown Rx atomoxetine 80 mg capsule 80 mg PO DAILY #30 caps 11/15/23 Unknown Rx cariprazine 3 mg capsule (Vraylar) See Rx Instructions .Route 11/15/23 Unknown Rx .COMPLEX #90 caps hydroxyzine pamoate 25 mg capsule See Rx Instructions .Route 11/15/23 Unknown Rx .COMPLEX #90 caps gabapentin 400 mg capsule See Rx Instructions .Route 01/09/24 Unknown Rx .COMPLEX #90 caps lorazepam 0.5 mg tablet 0.5 mg PO DAILY PRN anxiety #15 01/17/24 Unknown Rx tabs rimegepant 75 mg disintegrating 75 mg PO ONCE PRN 01/17/24 Unknown History tablet (Nurtec ODT) duloxetine 30 mg capsule,delayed See Rx Instructions PO DAILY #45 02/05/24 Unknown Rx release caps fluoxetine 20 mg capsule 20 mg PO ONCE #14 caps 02/05/24 Unknown Rx meclizine 25 mg tablet 25 mg PO Q8H PRN PRN Dizziness #20 02/06/24 Unknown Rx tabs Allergy/AdvReac Type Severity Reaction Status Date / Time zinc oxide Allergy Unknown Verified 02/06/24 16:25 naproxen (From Naprosyn) AdvReac Nausea Verified 02/06/24 16:25 Family History Unknown Alcoholism Anxiety Asthma Depression Myocardial infarction Suicide attempt Other Cancer Surgical History History of cholecystectomy History of oral surgery History of laparoscopic appendectomy Social History Smoking Status: Current every day smoker tobacco type: cigarettes and e-cigarettes alcohol intake: current alcohol intake frequency: a few times a month substance use type: 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, methamphetamine and other what type of physical activity do you participate in: yoga and weight training frequency: 3-4 times per week ROS ROS ED Constitutional Constitutional ED: Denies chills or fever(s) Eyes Eyes: Denies change in vision or diplopia ENT ENT ED: Reports as per HPI, tinnitus and vertigo; Denies ear discharge, ear pain, rhinorrhea or sore throat Cardiovascular Cardiovascular: Denies chest pain or palpitations Respiratory/Chest Respiratory/Chest: Denies cough or dyspnea Gastrointestinal Gastrointestinal: Reports nausea; Denies abdominal pain, diarrhea or vomiting Genitourinary Genitourinary ED: Denies dysuria or hematuria Musculoskeletal Musculoskeletal: Denies back pain or neck pain Integumentary Denies abscess or rash Neurologic Neurologic: Denies headache(s), paresthesias or weakness Psychiatric Psychiatric: Reports anxiety and other Details: I've had a stressful week. ; Denies suicidal thoughts EXAM Physical Exam Const Vital Signs: 02/06/24 16:25 Temperature 96.8 F L Temperature Source Temporal Pulse Rate 110 H Respiratory Rate 18 Blood Pressure 127/90 H Blood Pressure Mean 102 Pulse Ox 99 Oxygen Delivery Method Room Air Positive well nourished and well developed General Appearance ED: well developed and NAD HEENT Reports TM's clear and moist mucous membranes normocephalic and atraumatic Tympanic Membrane ED: Yes TM's clear Eyes PERRL and EOMs intact bilaterally Eyes Narrative: None fatigable horizontal nystagmus to the right. No vertical or rotatory nystagmus. Neck full ROM and supple Resp normal respiratory effort and clear to auscultation bilaterally Cardio regular rate, regular rhythm and no murmurs GI non-tender and non-distended Auscultation: normoactive bowel sounds Palpation: soft Back/Spine no CVA tenderness General Back: other FROM Extremity normal to inspection General Extremety ED: Negative for edema, pulses abnormal or tenderness General Extremity: Negative for edema or pulses abnormal Neuro oriented x3, CN's II-XII intact bilaterally and no sensory deficits noted Neuro Narrative: Normal [id number] and [id number] bilaterally. Spring-Hallpike maneuver makes symptoms worse bilaterally, more prominent to the right. Jolt test is abnormal. Sensorium / Orientation: awake and alert Motor Exam: strength 5/5 throughout Psych mental status grossly normal Skin no rashes or lesions noted and no wounds MDM MDM MDM Narrative Medical decision making narrative: Patient's history and exam are all consistent with peripheral vertigo. She does not have accelerated hypertension. It hopefully is labyrinthitis as a result of her recent infection. Supportive care, given prescriptions for meclizine and given a Zofran here, if she has another week of this and it does not get better or go away, follow-up with ENT is advised. Discharge Plan Triage Chief Complaint: Dizziness ED Provider: Alvarez Bingham Dx/Rx/DC Orders Clinical Impression: Episodic peripheral vertigo Instructions: ED Labyrinthitis Prescriptions: New meclizine 25 mg tablet 25 mg PO Q8H PRN PRN (Reason: Dizziness) Qty: 20 0RF No Action acetaminophen 500 mg tablet 500 mg PO Q6H PRN (Reason: fever or pain) Qty: 60 1RF meloxicam 15 mg tablet 15 mg PO DAILY PRN (Reason: pain) Qty: 30 1RF (DME) Knee Support Brace Misc See Rx Instructions .Route Qty: 1 0RF Rx Instructions: As directed hydroxyzine pamoate 25 mg capsule See Rx Instructions .ROUTE .COMPLEX Qty: 90 1RF Dose Instruction: TAKE 1 CAPSULE BY MOUTH AT BEDTIME Rx Instructions: TAKE 1 CAPSULE BY MOUTH AT BEDTIME atomoxetine 80 mg capsule 80 mg PO DAILY Qty: 30 2RF Vraylar 3 mg capsule See Rx Instructions .ROUTE .COMPLEX Qty: 90 1RF Dose Instruction: TAKE 1 CAPSULE BY MOUTH DAILY Rx Instructions: TAKE 1 CAPSULE BY MOUTH DAILY duloxetine 30 mg capsule,delayed release(DR/EC) See Rx Instructions PO DAILY Qty: 45 1RF Rx Instructions: Take 30 mg every day for 14 days then increase to 60 mg every day fluoxetine 20 mg capsule 20 mg PO ONCE Qty: 14 0RF Nurtec ODT 75 mg tablet,disintegrating 75 mg PO ONCE PRN Rx Instructions: as a single dose lorazepam 0.5 mg tablet 0.5 mg PO DAILY PRN (Reason: anxiety) Qty: 15 1RF valacyclovir 500 mg tablet 500 mg PO DAILY (DME) blood pressure monitor Kit See Rx Instructions .ROUTE .MEDSUPPLY Qty: 1 0RF Rx Instructions: Check blood pressure daily for hypertension I10 Symbicort 160-4.5 mcg/actuation HFA aerosol inhaler 2 puff INHALATION BID Qty: 10.2 3RF albuterol sulfate [ProAir HFA] 90 mcg/actuation HFA aerosol inhaler 1 - 2 puff inhalation Q6H PRN (Reason: shortness of breath or wheezing) Qty: 8.5 2RF amlodipine 5 mg tablet See Rx Instructions .ROUTE .COMPLEX Qty: 90 2RF Dose Instruction: take 1 tablet by mouth daily Rx Instructions: take 1 tablet by mouth daily gabapentin 400 mg capsule See Rx Instructions .ROUTE .COMPLEX Qty: 90 0RF Dose Instruction: take 1 capsule by mouth every 8 hours Rx Instructions: take 1 capsule by mouth every 8 hours; Primary Care Provider: Navi Kemp Referrals: Navi Kemp MD [Primary Care Provider] - [place] MD [Med Staff - Active Staff] - 1 Week if not improving Print Language: Hungarian Disposition Disposition: Home, Self Care
[2024-02-06] MEDS: Ondansetron 8 MG Tablet PO (17:12)
[2024-02-06] MEDS: Meclizine HCl 25 MG Tablet PO (17:12)
== END 2024-02-06 17:21 | disposition home or self-care (01) ==
LOC: ED 16:48
PROVIDERS: Emergency Provider Emergency Medicine; PCP Internal Medicine; Visit Provider Emergency Medicine
DX: R42 Dizziness and giddiness (principal); F31.9 Bipolar disorder, unspecified; F17.210 Nicotine dependence, cigarettes, uncomplicated; F17.290 Nicotine dependence, other tobacco product, uncomplicated
CPT/HCPCS: 99283; A4216

== ENCOUNTER 2024-02-12 17:30 | Emergency (ER) | payer MEDICAID, SELFPAY ==
[2024-02-12 17:31] VITALS: BP 131/84; PULSE 118; RESP 16; TEMP 36.6; O2SAT 98; BMI 30.7
--- NOTE | 2024-02-12 17:56 | EDS_ITS ---
HPI History of Present Illness Chief Complaint: Dizziness Detail of Chief Complaint: Dizziness and not feeling well Informant: patient Narrative Narrative: Patient presents with complaint of dizziness and not feeling well. Patient states that she been feeling dizzy for about 2 weeks. She was seen in the emergency department about a week and a half ago from what she tells me and diagnosed with vertigo. She was started on meclizine. Patient does not think the meclizine is helping very much. Today she was driving her friend around all day and she thinks being in the car made it worse. Patient also complains of bodyaches and some low back pain and has history of UTIs and thinks maybe she is getting another UTI. She has a smoker's cough but nothing out of the ordinary. She has had no fevers or chills or sweats. Patient admits to occasional marijuana use as well as smoking and vaping and using alcohol occasionally. She denies headache. Patient describes lightheadedness most of the time but sometimes some vertiginous symptoms as well. PFSH PFSH Medical History Knee pain, right ADHD Hypertension Arthritis Hepatitis C Encounter for preventative adult health care examination MDD (major depressive disorder) Suprapubic discomfort Cellulitis of left foot Abnormal kidney function Vertigo Chronic dental pain Contact with and (suspected) exposure to other viral communicable diseases URI (upper respiratory infection) Left ankle sprain Encounter for screening for COVID-19 Acute maxillary sinusitis, unspecified Lumbar radiculopathy Right elbow pain Chronic neck pain Bee sting Chronic low back pain GERD (gastroesophageal reflux disease) PTSD (post-traumatic stress disorder) Anxiety and depression Bipolar 1 disorder Hearing loss in left ear Vision problem Pneumonia Chronic headaches Hx of emotional problems Drug abuse Chronic bronchitis Bone fracture Back problem Asthma Seasonal allergies Alcohol abuse Home Medications ?Medication ?Instructions ?Recorded ?Last Taken ?Type blood pressure monitor #1 ea 10/29/19 Unknown Rx valacyclovir 500 mg tablet 500 mg PO DAILY 11/05/20 Unknown History budesonide-formoterol HFA 160 2 puff inhalation BID #10.2 grams 12/16/20 Unknown Rx mcg-4.5 mcg/actuation aerosol inhaler (Symbicort) albuterol sulfate 90 mcg/actuation 1 - 2 puff inhalation Q6H PRN 08/24/21 Unknown Rx aerosol inhaler (ProAir HFA) shortness of breath or wheezing #8.5 grams acetaminophen 500 mg tablet 500 mg PO Q6H PRN fever or pain 07/18/22 Unknown Rx #60 tabs amlodipine 5 mg tablet See Rx Instructions .Route 05/11/23 Unknown Rx .COMPLEX #90 tabs leg brace (Knee Support Brace) #1 ea 09/12/23 Unknown Rx atomoxetine 80 mg capsule 80 mg PO DAILY #30 caps 11/15/23 Unknown Rx cariprazine 3 mg capsule (Vraylar) See Rx Instructions .Route 11/15/23 Unknown Rx .COMPLEX #90 caps hydroxyzine pamoate 25 mg capsule See Rx Instructions .Route 11/15/23 Unknown Rx .COMPLEX #90 caps lorazepam 0.5 mg tablet 0.5 mg PO DAILY PRN anxiety #15 01/17/24 Unknown Rx tabs rimegepant 75 mg disintegrating 75 mg PO ONCE PRN migraine headache 01/17/24 Unknown History tablet (Nurtec ODT) duloxetine 30 mg capsule,delayed See Rx Instructions PO DAILY #45 02/05/24 Unknown Rx release caps fluoxetine 20 mg capsule 20 mg PO ONCE #14 caps 02/05/24 Unknown Rx meclizine 25 mg tablet 25 mg PO Q8H PRN PRN Dizziness #20 02/06/24 Unknown Rx tabs gabapentin 400 mg capsule 400 mg PO Q8H 30 days #90 caps 02/12/24 Unknown Rx sulfamethoxazole 800 1 tab PO BID #6 TABLETS 02/12/24 Unknown Rx mg-trimethoprim 160 mg tablet Allergy/AdvReac Type Severity Reaction Status Date / Time zinc oxide Allergy Unknown Verified 02/12/24 17:33 naproxen (From Naprosyn) AdvReac Nausea Verified 02/12/24 17:33 Family History Unknown Alcoholism Anxiety Asthma Depression Myocardial infarction Suicide attempt Other Cancer Surgical History History of cholecystectomy History of oral surgery History of laparoscopic appendectomy Social History Smoking Status: Current every day smoker tobacco type: cigarettes and e- cigarettes alcohol intake: current alcohol intake frequency: a few times a month substance use type: 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, metham phetamine and other what type of physical activity do you participate in: yoga and weight training frequency: 3-4 times per week ROS ROS ED Review of Systems ROS Unobtainable: other Constitutional Constitutional ED: Reports lethargy; Denies chills, fever(s), sweats or weight loss Eyes Eyes: Denies blurry vision, change in vision or diplopia ENT ENT ED: Denies rhinorrhea or sore throat Cardiovascular Cardiovascular: Denies chest pain, orthopnea or racing heartbeat Respiratory/Chest Respiratory/Chest: Denies cough, dyspnea, dyspnea on exertion, orthopnea or sputum Gastrointestinal Gastrointestinal: Denies abdominal pain, diarrhea, nausea or vomiting Genitourinary Genitourinary ED: Denies dysuria, hematuria or urinary frequency Musculoskeletal Musculoskeletal: Denies arthralgias, back pain, myalgias or neck pain Integumentary Denies abscess, Abrasions or rash Neurologic Neurologic: Reports other Details: Dizziness ; Denies headache(s) or weakness Psychiatric Psychiatric: Denies anxiety, depression or suicidal thoughts Endocrine Endocrinology: Denies polydipsia, polyphagia or polyuria Hematologic/Lymphatic Hematologic/Lymphatic: Denies easy bleeding, easy bruising or lymphadenopathy Allergic/Immunologic Allergic/Immunologic ED: Denies mouth swelling, tongue swelling or urticaria EXAM Physical Exam Const Vital Signs: 02/12/24 17:31 Temperature 98 F Temperature Source Oral Pulse Rate 118 H Respiratory Rate 16 Blood Pressure 131/84 H Blood Pressure Mean 99 Pulse Ox 98 Oxygen Delivery Method Room Air Positive well nourished and well developed General Appearance ED: well developed and NAD HEENT Reports TM's clear and moist mucous membranes normocephalic and atraumatic; Negative for trauma or tenderness Tympanic Membrane ED: Yes TM's clear Eyes PERRL and EOMs intact bilaterally General Eye ED: Negative for pale conjunctiva or scleral icterus Neck no lymphadenopathy, supple and no JVD General: Negative for tenderness Chest Wall inspection of chest normal and palpation of chest normal Chest: Negative for tenderness Resp normal respiratory effort and clear to auscultation bilaterally Effort and Inspection: Negative for respiratory distress or pain with movement Auscultation: Negative for rhonchi, wheezes or diminished lung sounds Cardio regular rate, regular rhythm, S1 normal heart sound, S2 normal heart sound and no murmurs Peripheral Pulses: pulses 2+ throughout GI normal to inspection, nondistended, normoactive bowel sounds, soft to palpation, non-tender, non-distended and no masses Back/Spine no CVA tenderness and no thoracic nor lumbar tenderness Extremity normal to inspection General Extremety ED: Negative for edema General Extremity: Negative for edema Neuro oriented x3, CN's II-XII intact bilaterally, no sensory deficits noted and gait normal Neuro Narrative: Finger-nose and heel dominique testing within normal limits, negative Romberg, negative pronator drift. Fundi benign. Hallpike maneuver was negative for nystagmus. Sensorium / Orientation: awake, alert, oriented to person, oriented to place and oriented to time Motor Exam: strength 5/5 throughout and strength abnormal Psych mental status grossly normal Skin no rashes or lesions noted and no wounds MDM MDM MDM Narrative Medical decision making narrative: Patient presents to the emergency department with nondescript dizziness. Most of the time she says it is more of a lightheaded feeling and then sometimes there is some spinning or vertiginous type component. She was seen in the emergency department from what she tells me within the last 2 weeks for the same and was diagnosed with vertigo and started on meclizine which does not give her much relief. Today she was actually driving throughout the day and she thinks that may be what made the dizziness worse now. Also she think she may be developing a UTI as she gets them frequently and she has had some mild discomfort and some mild low back pain. She denies any trauma to her head. IV line established. CBC with differential obtained was unremarkable. Chemistries on her markable other than a slightly depressed potassium of 3.2 for which I did order 40 mEq of potassium chloride p.o. Orthostatic vital signs were negative. Urinalysis showed 500 leukocyte esterase but only 5-10 WBCs and +2 bacteria. I did send off a urine culture. Given that she is symptomatic we will treat her for 3 days with Bactrim. Patient did have a CT scan of the brain without contrast that was unremarkable. Patient also had a COVID flu and RSV testing that was negative. This point etiology of her dizziness unclear. I will treat her with Bactrim for 3 days. Will refer to neurology for follow-up. Lab Data Attestation: I reviewed the patient's lab results. Discharge Plan Triage Chief Complaint: Dizziness ED Provider: David Persaud Dx/Rx/DC Orders Clinical Impression: Dizziness, UTI (urinary tract infection) Instructions: Urinary Tract Infections in Women, ED Dizziness, Uncertain Cause Prescriptions: New sulfamethoxazole-trimethoprim 800-160 mg tablet 1 tab PO BID Qty: 6 0RF No Action acetaminophen 500 mg tablet 500 mg PO Q6H PRN (Reason: fever or pain) Qty: 60 1RF (DME) Knee Support Brace Misc See Rx Instructions .Route Qty: 1 0RF Rx Instructions: As directed hydroxyzine pamoate 25 mg capsule See Rx Instructions .ROUTE .COMPLEX Qty: 90 1RF Dose Instruction: TAKE 1 CAPSULE BY MOUTH AT BEDTIME Rx Instructions: TAKE 1 CAPSULE BY MOUTH AT BEDTIME atomoxetine 80 mg capsule 80 mg PO DAILY Qty: 30 2RF Vraylar 3 mg capsule See Rx Instructions .ROUTE .COMPLEX Qty: 90 1RF Dose Instruction: TAKE 1 CAPSULE BY MOUTH DAILY Rx Instructions: TAKE 1 CAPSULE BY MOUTH DAILY duloxetine 30 mg capsule,delayed release(DR/EC) See Rx Instructions PO DAILY Qty: 45 1RF Rx Instructions: Take 30 mg every day for 14 days then increase to 60 mg every day fluoxetine 20 mg capsule 20 mg PO ONCE Qty: 14 0RF Nurtec ODT 75 mg tablet,disintegrating 75 mg PO ONCE PRN (Reason: migraine headache) Rx Instructions: as a single dose lorazepam 0.5 mg tablet 0.5 mg PO DAILY PRN (Reason: anxiety) Qty: 15 1RF valacyclovir 500 mg tablet 500 mg PO DAILY meclizine 25 mg tablet 25 mg PO Q8H PRN PRN (Reason: Dizziness) Qty: 20 0RF (DME) blood pressure monitor Kit See Rx Instructions .ROUTE .MEDSUPPLY Qty: 1 0RF Rx Instructions: Check blood pressure daily for hypertension I10 Symbicort 160-4.5 mcg/actuation HFA aerosol inhaler 2 puff INHALATION BID Qty: 10.2 3RF albuterol sulfate [ProAir HFA] 90 mcg/actuation HFA aerosol inhaler 1 - 2 puff inhalation Q6H PRN (Reason: shortness of breath or wheezing) Qty: 8.5 2RF amlodipine 5 mg tablet See Rx Instructions .ROUTE .COMPLEX Qty: 90 2RF Dose Instruction: take 1 tablet by mouth daily Rx Instructions: take 1 tablet by mouth daily gabapentin 400 mg capsule 400 mg PO Q8H 30 Days Qty: 90 0RF Primary Care Provider: Navi Kemp Referrals: Navi Kemp MD [Primary Care Provider] - 3-5 Days Robin Ashley MD [Non-Staff -Ordering Privileges] - 3-5 Days Print Language: [place] Disposition Disposition: Home, Self Care
--- NOTE | 2024-02-12 17:58 | CT_ITS ---
INDICATION: dizziness EXAMINATION: CT BRAIN - CT Head or Brain W/O Contrast Injection TECHNIQUE: Multiple axial images were obtained of the head without intravenous contrast. The protocol utilizes one or more of the following dose reduction techniques: automated exposure control, adjustment of mA and/or kV according to patient size,and/or use of iterative reconstruction technique. IV Contrast dosage and agent: None. RADIATION DOSAGE (If Supplied By Facility): CTDIvol = ( 44.99 ) mGy, DLP = ( 812.98 ) mGycm COMPARISON: August 14, 2022 FINDINGS: BRAIN PARENCHYMA: No intra- or extra-axial hemorrhage. No evidence of acute infarct. No intracranial mass or mass effect. There is preservation of the mahoney/white matter interface. Posterior fossa structures are unremarkable. CSF SPACES: Appropriate for age. No hydrocephalus. Basal cisterns are patent. CALVARIUM, SKULL BASE, PARANASAL SINUSES AND MASTOID AIR CELLS: Clear. No discrete lytic or blastic abnormalities. ORBITS: Both globes, extraocular muscles, optic nerves and retrobulbar fat appear unremarkable. ASPECTS Score for Acute Strokes: 10 CT/Brain/Head without Contrast IMPRESSION: No acute intracranial process. Electronically Signed: Breana Rmairez MD at 20:12 EDT ,
[2024-02-12 18:09] LABS: Color, Urine Yellow (Yellow); Glucose, Dipstick Normal (Normal); Ketone-Dipstick Negative (Negative); Leukocyte Esterase-Dipstick 500 /ul (Negative); Nitrite-Dipstick Negative (Negative); Occult Blood-Urine Negative /ul (Negative); Protein-Dipstick 15 mg/dl (Negative); Urine Bilirubin Dipstick Negative (Negative); Urine Clarity Sl. Cloudy (Clear); Urine Urobilinogen 1 mg/dl (Normal)
[2024-02-12 18:16] LABS: Squamous Epithelial Cells - UA 0-5 SEEN /hpf (5-10)
[2024-02-12 18:17] LABS: Bacteria 2+ /hpf (None Seen); Mucous, Urine 2+ /hpf (<or=2+); Red Blood Cells-Urine 0-5 SEEN /hpf (0-5); White Blood Cells 5-10 SEEN /hpf (0-5)
[2024-02-12 18:49] VITALS: BP 122/64; BP 123/67; BP 131/70; PULSE 102; PULSE 108; PULSE 110
[2024-02-12 18:54] LABS: Absolute Lymphocyte Count 1.54 X10^3/uL (0.83-4.51); Absolute Neutrophil Count 3.5 X10^3/uL (2.0-7.7); Basophil# 0.07 X10^3/uL; Basophil% 1.2 % (0-1); Eosinophil# 0.15 X10^3/uL; Eosinophils% 2.5 % (0-5); Hematocrit 41.7 % (37-47); Hemoglobin 13.8 g/dL (12.0-15.0); Lymphocyte # 1.54 X10^3/ul (0.83-4.51); Lymphocyte % 26.1 % (19-41); Mean Corp Hgb Conc 33.1 g/dL (32-36); Mean Corpuscular Hgb 29.6 pg (27.0-32.0); Mean Corpuscular Volume 89.3 fL (81-99); Monocyte# 0.59 X10^3/uL; NRBC Flagged by Analyzer 0 % (0-5); Neutrophil # 3.53 X10^3/uL (2.7-7.7); Platelet Count 377 K/mm3 (150-450); RBC Distribution Width CV 13.1 % (11.6-14.6); RBC Distribution Width SD 42.7 fl (35.1-43.9); Red Blood Count 4.67 M/mm3 (4.2-5.4); White Blood Count 5.9 K/mm3 (4.4-11.0)
[2024-02-12 19:11] LABS: ALB/GLOB Ratio 1.1 RATIO (0.9-2.4); AST(SGOT) 25 U/L (15-37); Alanine Aminotransfer ALT/SGPT 54 U/L (13-56); Albumin, Serum 3.5 g/dL (3.2-5.0); Alkaline Phosphatase 108 U/L (45-117); Anion Gap 8 (5-15); BUN 12 mg/dL (7-18); BUN/Creat Ratio 10.9 RATIO (10-20); Calcium,Total 8.8 mg/dL (8.5-10.1); Chloride 106 mmol/L (98-107); EST Glomerular Filtration Rate 61 mL/min (>60); Est Glom Filt Rate - Afr Amer 73 mL/min (>60); Estimated Creatinine Clearance 80.51 ml/min; Globulin 3.1 g/dL (2.2-4.2); Glucose 104 mg/dL (74-106); Potassium 3.3 mmol/L (3.5-5.1); Protein, Total 6.6 g/dL (6.4-8.2); Sodium Level 142 mmol/L (136-145)
[2024-02-12 19:31] VITALS: BP 126/71; PULSE 105; RESP 30; O2SAT 96
[2024-02-12] MEDS: Potassium Chloride Oral Tablet 20 MEQ 40 MEQ PO (20:24)
[2024-02-12 20:25] VITALS: BP 125/71; PULSE 113; RESP 14; O2SAT 96
[2024-02-12 21:00] VITALS: BP 116/68; PULSE 114; RESP 14; TEMP 36.9; O2SAT 96
[2024-02-12] MEDS: Smz/Tmp Ds Tablet 1 TABLET PO (21:00)
== END 2024-02-12 21:03 | disposition home or self-care (01) ==
PROVIDERS: Emergency Provider Emergency Medicine; PCP Internal Medicine; Visit Provider Emergency Medicine
DX: R42 Dizziness and giddiness (principal); N39.0 Urinary tract infection, site not specified; I10 Essential (primary) hypertension; F17.210 Nicotine dependence, cigarettes, uncomplicated; F17.290 Nicotine dependence, other tobacco product, uncomplicated; F12.90 Cannabis use, unspecified, uncomplicated; Z79.899 Other long term (current) drug therapy
CPT/HCPCS: 70450; 80053; 81001; 85025; 87086; 87088; 87631; 99285; A4216

== ENCOUNTER → 2024-02-15 | Outpatient (CLI) | payer MEDICAID, SELFPAY ==
[2024-02-15 11:18] LABS: Absolute Lymphocyte Count 1.35 X10^3/uL (0.83-4.51); Absolute Neutrophil Count 5.7 X10^3/uL (2.0-7.7); Basophil# 0.05 X10^3/uL; Basophil% 0.7 % (0-1); Eosinophil# 0.08 X10^3/uL; Eosinophils% 1.1 % (0-5); Hematocrit 43.2 % (37-47); Hemoglobin 14.3 g/dL (12.0-15.0); Lymphocyte # 1.35 X10^3/ul (0.83-4.51); Lymphocyte % 17.8 % (19-41); Mean Corp Hgb Conc 33.1 g/dL (32-36); Mean Corpuscular Hgb 29.3 pg (27.0-32.0); Mean Corpuscular Volume 88.5 fL (81-99); Mean Platelet Vol. 10.1 fl (6.2-12.0); Monocyte# 0.41 X10^3/uL; Monocyte% 5.4 % (0-10); NRBC Flagged by Analyzer 0 % (0-5); Neutrophil # 5.66 X10^3/uL (2.7-7.7); Neutrophil % 74.7 % (47-70); Platelet Count 450 K/mm3 (150-450); RBC Distribution Width CV 12.9 % (11.6-14.6); RBC Distribution Width SD 41.8 fl (35.1-43.9); Red Blood Count 4.88 M/mm3 (4.2-5.4); White Blood Count 7.6 K/mm3 (4.4-11.0)
[2024-02-15 11:42] LABS: Erythrocyte Sedimentation Rate 22 mm/hr (0-30)
[2024-02-15 11:47] LABS: Vitamin B12 587 pg/mL (211-911)
[2024-02-15 11:53] LABS: AST(SGOT) 36 U/L (15-37); Alanine Aminotransfer ALT/SGPT 69 U/L (13-56); Albumin, Serum 3.9 g/dL (3.2-5.0); Alkaline Phosphatase 112 U/L (45-117); Anion Gap 9 (5-15); BUN 14 mg/dL (7-18); BUN/Creat Ratio 14.2 RATIO (10-20); CRP 3.67 mg/L (0.0-3.0); Calcium,Total 9.4 mg/dL (8.5-10.1); Chloride 108 mmol/L (98-107); Creatinine, Serum 0.99 mg/dL (0.55-1.02); EST Glomerular Filtration Rate 69 mL/min (>60); Est Glom Filt Rate - Afr Amer 83 mL/min (>60); Ferritin 50 ng/mL (8-252); Globulin 3.8 g/dL (2.2-4.2); Glucose 83 mg/dL (74-106); Iron Binding Capacity,Total 375 ug/dL (250-450); LDH 245 U/L (84-246); Protein, Total 7.7 g/dL (6.4-8.2); Sodium Level 138 mmol/L (136-145)
[2024-02-19 14:10] LABS: Vitamin D 1,25-Dihydroxy 39.6 pg/mL (24.8-81.5)
[2024-02-19 15:08] LABS: ACCA 3 units (0-90); ALCA 4 units (0-60); AMCA 6 units (0-100); Albumin 4.1 g/dL (2.9-4.4); Alpha-1-Globulins 0.2 g/dL (0.0-0.4); Angiotensin Convert Enzyme 42 U/L (14-82); Anti-Parietal Cell AB, QN 4.1 Units (0.0-20.0); Copper, Serum or Plasma 98 ug/dL (80-158); Cytoplasmic Ab (C-ANCA) <1:20 titer (Neg:<1:20); Dilute Prothrombin Time (dPT) 33.8 sec (0.0-47.6); Dilute Russell Viper Venom 32.4 sec (0.0-47.0); Endomysial Antibody IgA Negative (Negative); Gamma Globulin 0.7 g/dL (0.4-1.8); Gastrin, Serum 103 pg/mL (0-115); Haptoglobin 248 mg/dL (33-278); IMMUNOFIXATION RESULT,S Comment: (.); IgG, Quant 817 mg/dL (586-1602); Immunoglobulin A 98 mg/dL (87-352); Immunoglobulin E 20 IU/mL (6-495); Immunoglobulin G, Subclass 1 603 mg/dL (248-810); Immunoglobulin G, Subclass 2 44 mg/dL (130-555); Immunoglobulin G, Subclass 3 15 mg/dL (15-102); Immunoglobulin G, Subclass 4 1 mg/dL (2-96); Immunoglobulin M 62 mg/dL (26-217); Interpretation Comment: (.); Intrinsic Factor Ab 1.1 AU/mL (0.0-1.1); PTT-LA 26.7 sec (0.0-43.5); Perinuclear Ab (P-ANCA) <1:20 titer (Neg:<1:20); Thrombin Time 15.4 sec (0.0-23.0); dPT Confirm Ratio 1.21 Ratio (0.00-1.34); gASCA 10 units (0-50); t-Transglutaminase IgA <2 U/mL (0-3)
== END | disposition home or self-care (01) ==
PROVIDERS: PCP Internal Medicine; Referring Provider Internal Medicine Gastroenterology; Visit Provider Internal Medicine Gastroenterology
DX: R42 Dizziness and giddiness (principal); R19.7 Diarrhea, unspecified
CPT/HCPCS: 36415; 80053; 82164; 82525; 82533; 82607; 82652; 82728; 82784; 82785; 82787; 82941; 83010; 83516; 83550; 83615; 84165; 84443; 85025; 85652; 86036; 86037; 86140; 86255; 86334; 86340; 86671

== ENCOUNTER → 2024-03-03 | Outpatient (CLI) | payer MEDICAID, SELFPAY ==
--- NOTE | 2024-03-03 09:38 | US_ITS ---
STUDY: ABDOMINAL ULTRASOUND - RIGHT UPPER QUADRANT; ELASTOGRAPHY REASON FOR VISIT: Female, 33 years old. Hepatitis C. Elevated liver enzymes. TECHNIQUE: Ultrasound evaluation of the right upper quadrant was performed with real-time and static mahoney-scale imaging. Point quantification shear wave elastography was performed ([employer]). TECHNICAL QUALITY: Adequate. COMPARISON: Comparison is made with prior study of November 15, 2022. FINDINGS: Liver: The liver measures 15.6 cm. There is increased echogenicity consistent with fatty infiltration. The bile ducts are within normal limits. There is hepatic color flow. The direction of portal flow is hepatopetal. There is no demonstrated mass lesion. Median liver stiffness measured 13.3 kPa. Gallbladder: The patient is status post cholecystectomy. Common Bile Duct (C.B.D.): The common bile duct measures 2.9 mm. Pancreas: The pancreas is obscured due to overlying bowel gas. Right Kidney: Normal size of the right kidney. The right kidney measures 8.9 cm x 3.9 cm x 4.6 cm. Normal renal cortex. The right cortex measures 1.1 cm. There is no demonstrated renal mass or cyst. There is no right hydronephrosis. US/ABD Limited w/ Elastography IMPRESSION: 1. Liver stiffness measures 13.3 kPa compatible with F3-F4 (Moderate to severe liver fibrosis) Metavir score. Electronically Signed: Adeel Chamberlain MD at 10:58 EDT ,
== END | disposition home or self-care (01) ==
PROVIDERS: PCP Internal Medicine; Referring Provider Internal Medicine Gastroenterology; Visit Provider Internal Medicine Gastroenterology
DX: B19.20 Unspecified viral hepatitis C without hepatic coma (principal)
CPT/HCPCS: 76705; 76981

== ENCOUNTER 2024-03-11 11:44 | Emergency (ER) | payer MEDICAID, SELFPAY ==
[2024-03-11] VITALS (7 sets, daily range): BP systolic 118–136; BP diastolic 74–86; PULSE 94–159; RESP 18–30; TEMP 36.6–36.7; O2SAT 96–99; BMI 28.9
--- NOTE | 2024-03-11 12:00 | EKG12_ITS ---
Test Reason : HIGH HR Blood Pressure : */* mmHG Vent. Rate : 134 BPM Atrial Rate : 134 BPM P-R Int : 124 ms QRS Dur : 68 ms QT Int : 302 ms P-R-T Axes : 54 33 64 degrees QTcB Int : 450 ms Sinus tachycardia Possible Left atrial enlargement Borderline ECG Confirmed by Guido Burt ([id number]), proposal editor LEXII DONOVAN ([id number]) on 03/12/2024 11:41:34 AM Referred By: AR Confirmed By: Guido Burt
--- NOTE | 2024-03-11 12:00 | CT_ITS ---
STUDY: CTA CHEST REASON FOR EXAM: Female, 33 years old. Tachycardia, shortness of breath. History of Covid RADIATION DOSAGE (If Supplied By Facility): CTDIvol = ( 11.18 ) mGy, DLP = ( 437.43 ) mGycm TECHNIQUE: The examination was performed with the intravenous administration of IV 100mL [id number]-[id number]. Post-processing of the angiographic images was performed, with multiplanar reformation and 3D reconstruction. Individualized dose optimization techniques were used for this CT. COMPARISON: None. FINDINGS: Normal enhancement of the main pulmonary artery and right and left pulmonary arteries. Normal enhancement of the bilateral peripheral pulmonary arteries. There is no demonstrated pulmonary embolism. Normal thoracic aorta and visualized great vessels. There is no demonstrated aortic dissection. Normal heart and pericardium. Normal mediastinum. Normal hilar regions. Normal visualized trachea and bronchi. The lungs are well expanded. Minimal degree of bibasilar atelectasis. Normal pleura. Normal chest wall structures. Normal osseous structures. The patient is status post cholecystectomy. CT/CTA Chest W/WO Contrast IMPRESSION: Minimal degree of linear bibasilar atelectasis. No evidence of pulmonary embolism. Electronically Signed: Adeel Chamberlain MD at 13:44 EST ,
--- NOTE | 2024-03-11 12:02 | EX.ED.DYSGE1 ---
HPI History of Present Illness Chief Complaint: Cold Sx Narrative Narrative: 33-year-old female past medical history of bipolar disorder and anxiety presents with generalized weakness, and states that she is getting over COVID. Her significant other came home with COVID last week, and she began having symptoms , approximately 6 days ago. She states she has bodyaches all over and has had decreased p.o. intake. She is nauseated but has not vomited. Has had intermittent diarrhea as well. She denies any chest pain but states that on occasion she might feel short of breath. She has been stressed over the last few months, and is on medication for anxiety as well. PFSH PFSH Medical History Knee pain, right ADHD Hypertension Arthritis Hepatitis C Encounter for preventative adult health care examination MDD (major depressive disorder) Suprapubic discomfort Cellulitis of left foot Abnormal kidney function Vertigo Chronic dental pain Contact with and (suspected) exposure to other viral communicable diseases URI (upper respiratory infection) Left ankle sprain Encounter for screening for COVID-19 Acute maxillary sinusitis, unspecified Lumbar radiculopathy Right elbow pain Chronic neck pain Bee sting Chronic low back pain GERD (gastroesophageal reflux disease) PTSD (post-traumatic stress disorder) Anxiety and depression Bipolar 1 disorder Hearing loss in left ear Vision problem Pneumonia Chronic headaches Hx of emotional problems Drug abuse Chronic bronchitis Bone fracture Back problem Asthma Seasonal allergies Alcohol abuse Home Medications ?Medication ?Instructions ?Recorded ?Last Taken ?Type blood pressure monitor #1 ea 10/29/19 Unknown Rx valacyclovir 500 mg tablet 500 mg PO DAILY 11/05/20 Unknown History leg brace (Knee Support Brace) #1 ea 09/12/23 Unknown Rx atomoxetine 80 mg capsule 80 mg PO DAILY #30 caps 11/15/23 Unknown Rx cariprazine 3 mg capsule (Vraylar) See Rx Instructions .Route 11/15/23 Unknown Rx .COMPLEX #90 caps hydroxyzine pamoate 25 mg capsule See Rx Instructions .Route 11/15/23 Unknown Rx .COMPLEX #90 caps rimegepant 75 mg disintegrating 75 mg PO ONCE PRN migraine headache 01/17/24 Unknown History tablet (Nurtec ODT) duloxetine 30 mg capsule,delayed See Rx Instructions PO DAILY #45 02/05/24 Unknown Rx release caps fluoxetine 20 mg capsule 20 mg PO ONCE #14 caps 02/05/24 Unknown Rx sulfamethoxazole 800 1 tab PO BID #6 TABLETS 02/12/24 Unknown Rx mg-trimethoprim 160 mg tablet amlodipine 5 mg tablet See Rx Instructions .Route 02/21/24 Unknown Rx .COMPLEX #90 tabs meclizine 25 mg tablet 25 mg PO Q8H PRN PRN Dizziness #30 02/21/24 Unknown Rx tabs lorazepam 0.5 mg tablet 0.5 mg PO DAILY PRN anxiety #15 02/27/24 Unknown Rx tabs gabapentin 400 mg capsule 400 mg PO Q8H 30 days #90 caps 03/06/24 Unknown Rx ibuprofen 400 mg tablet 400 mg PO Q8H #14 tabs 03/11/24 Unknown Rx Allergy/AdvReac Type Severity Reaction Status Date / Time zinc oxide Allergy Unknown Verified 02/21/24 08:35 naproxen (From Naprosyn) AdvReac Nausea Verified 02/21/24 08:35 Family History Unknown Alcoholism Anxiety Asthma Depression Myocardial infarction Suicide attempt Other Cancer Surgical History History of cholecystectomy History of oral surgery History of laparoscopic appendectomy Social History Smoking Status: Current every day smoker tobacco type: cigarettes and e-cigarettes alcohol intake: current alcohol intake frequency: a few times a month substance use type: 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, methamphetamine and other what type of physical activity do you participate in: yoga and weight training frequency: 3-4 times per week ROS ROS ED ROS Narrative Constitutional: No fever, no chills. Generalized weakness. HEENT: No sore throat. No neck pain. No loss of vision. No rhinorrhea. Cardiovascular: No chest pain. No palpitations. No pedal edema. Respiratory: Rare cough, occasional shortness of breath. Abdominal: No abdominal pain. No nausea. No vomiting. Genitourinary: No dysuria. No hematuria. Musculoskeletal: Multiple myalgias and arthralgias. Neurologic: No headaches. No dizziness. No lightheadedness. Skin: No rash. No change in color. Psychiatric: No depression. Positive stress and anxiety. EXAM Physical Exam Narrative Exam Narrative: Afebrile. Vital signs noted. Nontoxic-appearing. Positive regular tachycardia. Lungs clear to auscultation bilaterally. Abdomen soft nontender with normal active bowel sounds. Neurological examination nonfocal and nonlateralizing. No pedal edema bilaterally. Const Vital Signs: 03/11/24 11:44 03/11/24 11:46 03/11/24 12:11 Temperature 98.1 F Temperature Source Temporal Pulse Rate 159 H 128 H Respiratory Rate 22 H 30 H Respiratory Effort Normal Non-Labored Respiratory Depth Respiratory Pattern Normal Blood Pressure 118/74 124/86 H Blood Pressure Mean 88 98 Pulse Ox 99 98 Oxygen Delivery Method Room Air Room Air 03/11/24 12:11 03/11/24 12:46 03/11/24 13:00 Temperature Temperature Source Pulse Rate 128 H 115 H Respiratory Rate 18 20 H Respiratory Effort Normal Non-Labored Respiratory Depth Normal Respiratory Pattern Normal Blood Pressure 132/86 H Blood Pressure Mean 101 Pulse Ox 98 98 Oxygen Delivery Method Room Air Room Air 03/11/24 14:00 03/11/24 14:07 Temperature 98 F Temperature Source Pulse Rate 94 94 Respiratory Rate 19 H 19 H Respiratory Effort Respiratory Depth Respiratory Pattern Blood Pressure 136/86 H 136/86 H Blood Pressure Mean 102 102 Pulse Ox 96 96 Oxygen Delivery Method Room Air MDM MDM MDM Narrative Medical decision making narrative: Differential diagnosis includes but not limited to dehydration versus other electrolyte imbalance versus anxiety versus pneumonia versus pneumothorax. I have low suspicion for ACS or atrial fibrillation. Her heart rate varies from the 130s to the 150s. I have low suspicion for pulmonary embolism as well. She is afebrile here and currently hemodynamically stable with an elevated heart rate. Pulse ox is 99% on room air without evidence of hypoxia. EKG was obtained and interpreted by myself independently as sinus tachycardia at 134 bpm without ectopy or acute ST changes. No STEMI. I do not feel that she needs a COVID swab as her symptoms have been ongoing for greater than 5 days so I do not feel that an antiviral is indicated as well. I reviewed her laboratory work and she has slight leukocytosis of 12.2 which I think is nonspecific and can be explained by her recent URI symptoms. Hemoglobin normal at 14.4, hematocrit 42.6, platelet count normal at 427. Chloride is slightly elevated at 108 with a normal sodium of 138 and potassium 3.6. BUN normal at 9 with creatinine 0.91. Lipase is 20. Serum is negative. I reviewed the radiology report of the CTA of the chest which shows no evidence of pneumonia or pulmonary embolism. At this point in time, I feel she can be discharged safely home with follow-up. She requested something for body aches that she was administered ketorolac 15 mg intravenously and I wrote her prescription for ibuprofen 400 mg tablets because her allergy to naproxen is only nausea. Feel this is more of a side effect than anaphylaxis. Disposition is discharged home in stable condition. History & Record Review Discussion w/independent historian: Patient Lab Data Attestation: I reviewed the patient's lab results. Labs: Laboratory Results - last 24 hr 03/11/24 12:03 WBC 12.2 H RBC 4.99 Hgb 14.4 Hct 42.6 MCV 85.4 MCH 28.9 MCHC 33.8 RDW Std Deviation 38.3 RDW Coeff of [place] 12.3 Plt Count 427 MPV 9.9 Immature Gran % (Auto) 0.300 Neut % (Auto) 90.7 H Lymph % (Auto) 5.6 L Johnston % (Auto) 3.0 Eos % (Auto) 0.1 Baso % (Auto) 0.3 Absolute Neuts (auto) 11.1 H Absolute Lymphs (auto) 0.69 L Nucleated RBC % 0 Sodium 138 Potassium 3.6 Chloride 108 H Carbon Dioxide 24.0 Anion Gap 5 BUN 9 Creatinine 0.91 Estim Creat Clear Calc 94.50 Est GFR (MDRD) Af Amer 92 Est GFR (MDRD) Non-Af 76 BUN/Creatinine Ratio 9.9 L Glucose 133 H Calcium 9.0 Troponin I High Sens < 3 L Lipase 20 Serum , Qual NEGATIVE Radiography Diagnostic Testing: Clinical Impression(s) from Imaging Studies Chest CTA 03/11/24 12:00 IMPRESSION: Minimal degree of linear bibasilar atelectasis. No evidence of pulmonary embolism. Electronically Signed: Adeel Chamberlain MD at 13:44 EST , Discharge Plan Triage Chief Complaint: Cold Sx ED Provider: Cristóbal Christiansen Dx/Rx/DC Orders Clinical Impression: Body aches, Tachycardia, Shortness of breath Instructions: Understanding Tachycardia, ED Dyspnea, ED Pain, Acute, Uncertain Cause Prescriptions: New ibuprofen 400 mg tablet 400 mg PO Q8H Qty: 14 0RF No Action (DME) Knee Support Brace Misc See Rx Instructions .Route Qty: 1 0RF Rx Instructions: As directed hydroxyzine pamoate 25 mg capsule See Rx Instructions .ROUTE .COMPLEX Qty: 90 1RF Dose Instruction: TAKE 1 CAPSULE BY MOUTH AT BEDTIME Rx Instructions: TAKE 1 CAPSULE BY MOUTH AT BEDTIME atomoxetine 80 mg capsule 80 mg PO DAILY Qty: 30 2RF Vraylar 3 mg capsule See Rx Instructions .ROUTE .COMPLEX Qty: 90 1RF Dose Instruction: TAKE 1 CAPSULE BY MOUTH DAILY Rx Instructions: TAKE 1 CAPSULE BY MOUTH DAILY duloxetine 30 mg capsule,delayed release(DR/EC) See Rx Instructions PO DAILY Qty: 45 1RF Rx Instructions: Take 30 mg every day for 14 days then increase to 60 mg every day fluoxetine 20 mg capsule 20 mg PO ONCE Qty: 14 0RF Nurtec ODT 75 mg tablet,disintegrating 75 mg PO ONCE PRN (Reason: migraine headache) Rx Instructions: as a single dose meclizine 25 mg tablet 25 mg PO Q8H PRN PRN (Reason: Dizziness) Qty: 30 0RF amlodipine 5 mg tablet See Rx Instructions .ROUTE .COMPLEX Qty: 90 2RF Dose Instruction: take 1 tablet by mouth daily Rx Instructions: take 1 tablet by mouth daily valacyclovir 500 mg tablet 500 mg PO DAILY sulfamethoxazole-trimethoprim 800-160 mg tablet 1 tab PO BID Qty: 6 0RF (DME) blood pressure monitor Kit See Rx Instructions .ROUTE .MEDSUPPLY Qty: 1 0RF Rx Instructions: Check blood pressure daily for hypertension I10 lorazepam 0.5 mg tablet 0.5 mg PO DAILY PRN (Reason: anxiety) Qty: 15 1RF gabapentin 400 mg capsule 400 mg PO Q8H 30 Days Qty: 90 2RF Primary Care Provider: Navi Kemp Referrals: Navi Kemp MD [Primary Care Provider] - 1 Week if not improving Print Language: Romanian Disposition Disposition: Home, Self Care
[2024-03-11] MEDS: 0.9% Normal Saline (1000mL) 1,000 ML 1000 ML IV (12:06)
[2024-03-11 12:17] LABS: Absolute Lymphocyte Count 0.69 X10^3/uL (0.83-4.51); Absolute Neutrophil Count 11.1 X10^3/uL (2.0-7.7); Basophil# 0.04 X10^3/uL; Basophil% 0.3 % (0-1); Eosinophil# 0.01 X10^3/uL; Eosinophils% 0.1 % (0-5); Hematocrit 42.6 % (37-47); Hemoglobin 14.4 g/dL (12.0-15.0); Lymphocyte # 0.69 X10^3/ul (0.83-4.51); Lymphocyte % 5.6 % (19-41); Mean Corp Hgb Conc 33.8 g/dL (32-36); Mean Corpuscular Hgb 28.9 pg (27.0-32.0); Mean Corpuscular Volume 85.4 fL (81-99); Mean Platelet Vol. 9.9 fl (6.2-12.0); Monocyte# 0.37 X10^3/uL; NRBC Flagged by Analyzer 0 % (0-5); Neutrophil # 11.07 X10^3/uL (2.7-7.7); Neutrophil % 90.7 % (47-70); Platelet Count 427 K/mm3 (150-450); RBC Distribution Width CV 12.3 % (11.6-14.6); RBC Distribution Width SD 38.3 fl (35.1-43.9); Red Blood Count 4.99 M/mm3 (4.2-5.4); White Blood Count 12.2 K/mm3 (4.4-11.0)
[2024-03-11 12:33] LABS: Internal QC Validated? YES +Cl - CLEAR BKGD; Pregnancy, Serum, hCG Quali. NEGATIVE Negative
[2024-03-11 12:43] LABS: Anion Gap 5 (5-15); BUN 9 mg/dL (7-18); BUN/Creat Ratio 9.9 RATIO (10-20); Chloride 108 mmol/L (98-107); Creatinine, Serum 0.91 mg/dL (0.55-1.02); EST Glomerular Filtration Rate 76 mL/min (>60); Est Glom Filt Rate - Afr Amer 92 mL/min (>60); Glucose 133 mg/dL (74-106); Lipase 20 U/L (13-75); Potassium 3.6 mmol/L (3.5-5.1); Sodium Level 138 mmol/L (136-145); Troponin-I HS < 3 pg/mL (3.0-54.0)
[2024-03-11] MEDS: Ketorolac 15 MG/ML Vial IV (14:09)
== END 2024-03-11 14:40 | disposition home or self-care (01) ==
PROVIDERS: Emergency Provider Emergency Medicine; PCP Internal Medicine; Visit Provider Emergency Medicine
DX: U07.1 COVID-19 (principal); I10 Essential (primary) hypertension; Z79.899 Other long term (current) drug therapy; F17.210 Nicotine dependence, cigarettes, uncomplicated; F17.290 Nicotine dependence, other tobacco product, uncomplicated
CPT/HCPCS: 71275; 80048; 83690; 84484; 84703; 85025; 93005; 96361; 96374; 99285; J7030; Q9967; A4216

== ENCOUNTER → 2024-03-20 | Outpatient (CLI) | payer MEDICAID, SELFPAY ==
[2024-03-20] VITALS (14 sets, daily range): BP systolic 107–130; BP diastolic 53–89; PULSE 81–89; RESP 14–18; TEMP 36.3; O2SAT 92–100; BMI 29.0
--- NOTE | 2024-03-20 | LIVB_PTH ---
PATIENT: ELVER JONES LOC: CT U#:[id number] AGE/SX: 33/F ROOM: RE03/20/[address]: GIOVANI Cottrell : 1990 BED: DIS: 03/20/2024 SPEC #: [id number] RECD: 03/20/24 10:32 STATUS: ORIANA RETara #: [id number] SALINAS: 03/20/24 00:[address]: Nette Diane DEPT: SURGICAL PATHOLOGY RECD BY: Rita Segura ENTERED: 03/20/24 11:01 SP TYPE: LIVER BX OT DR: Dr. Navi Kemp MD Tissues: Liver, NOS Procedures: PAS with Diastase (control) Trichrome (control) Special Stain Group I PAS Stain (control) Surgery Specimen Level V Retic (control) Iron Stain (control) HEADER OPERATION: Liver biopsy PRE-OP DIAGNOSIS: Fatty liver TISSUE SUBMITTED: 18 gauge x 3 cores MICROSCOPIC DIAGNOSIS Liver, core biopsy: Minimal chronic inflammation. No evidence of cirrhosis. See comment. 03/21/2024 COMMENT Sections show portal inflammation with minimal involvement of lobular parenchyma. There is focal macrovesicular steatosis. Iron stain does not reveal accumulation of intraparenchymal iron. Reticulin stain reveals a normal hepatic architecture. Trichrome stain does not reveal fibrosis or cirrhosis. PAS and PASD stains do not reveal accumulation of abnormal proteins. All matched controls are appropriate. MICROSCOPIC DESCRIPTION Slides are reviewed. GROSS DESCRIPTION Received in fixative is one container labeled with the patient's name and designated Liver biopsy. The specimen consists of three elongated fragments of singh soft tissue measuring in aggregate 1.5 x 0.3 x 0.1cm. The entire specimen is submitted in one cassette. TC:3 CPT:23921,82477r2
--- NOTE | 2024-03-20 08:54 | CT_ITS ---
PROCEDURE: CT DIRECTED CORE LIVER BIOPSY INDICATION: Female, 33 years old. Fatty liver PHYSICIAN: Dr. Cintia Carter CONSENT: Written informed consent was obtained having explained the risks, benefits and alternatives in detail with the patient who accepted the risks and agreed to proceed. Laboratory review and clinical assessment was performed. CONSCIOUS SEDATION PROTOCOL: The Drugs used were: 3 mg Versed, IV., and 50 mcg Fentanyl, IV. The sedation time was: 25 minutes. Conscious sedation was started at 9:56 AM and terminated at 10:21 AM. The conscious sedation protocol was independently monitored. RADIATION DOSAGE (If Supplied By Facility): CTDIvol = ( 18.9 ) mGy, DLP = ( 401.62 ) mGycm Individualized dose optimization techniques were used for this CT. TECHNIQUE: Using CT image guidance with image documentation, a suitable location in the left lobe of the liver was identified. Using an anterior approach, puncture of the liver was uneventful with an 18-gauge core needle system. 3, 18-gauge core samples were obtained, and submitted in formalin to the pathologist for further assessment. Followup CT scan revealed no distinct sequelae. CT/Biopsy/Inj or Needle Placement IMPRESSION: 1. CT directed core needle biopsy of the liver, using CT image guidance with image documentation as described. 2. Conscious Sedation protocol utilized with independent monitoring. Electronically Signed: Adeel Chamberlain MD at 15:17 EST ,
[2024-03-20 08:57] LABS: Platelet Count 474 K/mm3 (150-450)
[2024-03-20 09:10] LABS: International Normalized Ratio 0.9; Prothrombin Time (Protime)PT. 12.3 SECONDS (11.7-14.9)
[2024-03-20 09:11] LABS: Partial Thromboplast Time 25.5 Seconds (24.1-36.2)
[2024-03-20] MEDS: Midazolam 2 MG/2 ML Syringe IV ×2 (09:56→10:13)
[2024-03-20] MEDS: fentaNYL 100 MCG/2 ML Ampul IV (09:57)
[2024-03-20] MEDS: Lidocaine 2% (20 ml mdv) 20 ML Vial INFILT (10:15)
== END | disposition home or self-care (01) ==
PROVIDERS: PCP Internal Medicine; Referring Provider Student in an Organized Health Care Education/Training Program; Visit Provider Student in an Organized Health Care Education/Training Program
DX: K73.9 Chronic hepatitis, unspecified (principal); F31.9 Bipolar disorder, unspecified; K76.0 Fatty (change of) liver, not elsewhere classified; F90.9 Attention-deficit hyperactivity disorder, unspecified type; F41.9 Anxiety disorder, unspecified; F43.10 Post-traumatic stress disorder, unspecified; F17.210 Nicotine dependence, cigarettes, uncomplicated; F17.290 Nicotine dependence, other tobacco product, uncomplicated; I10 Essential (primary) hypertension; E66.3 Overweight; M54.2 Cervicalgia; M54.16 Radiculopathy, lumbar region; M19.90 Unspecified osteoarthritis, unspecified site; G89.29 Other chronic pain; Z68.30 Body mass index [BMI] 30.0-30.9, adult; Z86.19 Personal history of other infectious and parasitic diseases; Z90.49 Acquired absence of other specified parts of digestive tract; Z79.899 Other long term (current) drug therapy; Z87.440 Personal history of urinary (tract) infections
CPT/HCPCS: 47000; 36415; 77012; 85049; 85610; 85730; 88307; 88312; 99156; A4216

== ENCOUNTER → 2024-06-11 | Outpatient (CLI) | payer MEDICAID, SELFPAY ==
--- NOTE | 2024-06-11 11:02 | RAD_ITS ---
EXAM: XR Chest, 2 Views CLINICAL INDICATION: TECHNIQUE: Frontal and lateral views of the chest. COMPARISON: No relevant prior studies available. FINDINGS: LUNGS AND PLEURAL SPACES: Unremarkable. No consolidation. No pneumothorax. HEART: Unremarkable. No cardiomegaly. MEDIASTINUM: Unremarkable. Normal mediastinal contour. BONES/JOINTS: Unremarkable. No acute fracture. RAD/Chest PA and Lateral IMPRESSION: No acute cardiopulmonary process. Reading Location[facility]
== END | disposition home or self-care (01) ==
LOC: MTRAD 10:50
PROVIDERS: PCP Internal Medicine; Referring Provider Nurse Practitioner; Visit Provider Nurse Practitioner
DX: R05.9 Cough, unspecified (principal)
CPT/HCPCS: 71046

== ENCOUNTER 2024-06-14 13:31 | Emergency (ER) | payer MEDICAID, SELFPAY ==
[2024-06-14 13:32] VITALS: BP 117/77; PULSE 97; RESP 18; TEMP 35.9; O2SAT 98; BMI 30.7
--- NOTE | 2024-06-14 14:18 | EDS_ITS ---
HPI History of Present Illness Chief Complaint: General Illness Narrative Narrative: 33-year-old female presents with a few days of viral syndrome type symptoms/upper respiratory infection. She states that her boyfriend has RSV. She has been sick for the last 3 to 4 days. She states she is nauseated but has not vomited. She has occasional cough with shortness of breath. She also has a lot of bodyaches as well. [facility] and had a chest x-ray which was clear. She states he gave her Tessalon Perles. She states she does not feel well. No exacerbating or alleviating factors. She thought that maybe she needed to be swabbed so she presents to the emergency department today. PFSH PFSH Medical History Viral URI with cough Loss of hearing Wears glasses Restless legs Back pain Migraine headache Vertigo Hoarseness Heartburn Smoker Asthma Shortness of breath on exertion Leg cramps Tachycardia Knee pain, right ADHD Hypertension Arthritis Hepatitis C Encounter for preventative adult health care examination MDD (major depressive disorder) Suprapubic discomfort Cellulitis of left foot Abnormal kidney function Vertigo Chronic dental pain Contact with and (suspected) exposure to other viral communicable diseases URI (upper respiratory infection) Left ankle sprain Encounter for screening for COVID-19 Acute maxillary sinusitis, unspecified Lumbar radiculopathy Right elbow pain Chronic neck pain Bee sting Chronic low back pain GERD (gastroesophageal reflux disease) PTSD (post-traumatic stress disorder) Anxiety and depression Bipolar 1 disorder Drug abuse Chronic bronchitis Alcohol abuse Home Medications ?Medication ?Instructions ?Recorded ?Last Taken ?Type valacyclovir 500 mg tablet 500 mg PO DAILY 11/05/20 Un known History rimegepant 75 mg disintegrating 75 mg PO ONCE PRN migr pawan headache 01/17/24 Unknown History tablet (Nurtec ODT) gabapentin 400 mg capsule 400 mg PO Q8H 30 days #90 ca ps 03/06/24 Unknown Rx amlodipine 5 mg tablet 5 mg PO DAILY 03/21/24 Unkno wn History hydroxyzine pamoate 25 mg capsule 25 mg PO QHS 4 Unknown History ibuprofen 400 mg tablet 400 mg PO Q8H PRN PRN pain 1 05/21/23 Unknown History lorazepam 0.5 mg tablet 0.5 mg PO DAILY PRN anxiety #15 05/21/24 Unknown Rx tabs atomoxetine 80 mg capsule 80 mg PO DAILY #30 caps 05/08 05/31 Unknown Rx cariprazine 3 mg capsule (Vraylar) 3 mg PO DAILY #30 c aps 05/27/24 Unknown Rx duloxetine 60 mg capsule,delayed 60 mg PO DAILY #30 ca ps 05/27/24 Unknown Rx release benzonatate 100 mg capsule 100 mg PO TID PRN PRN cough 4 days 06/11/24 Unknown Rx #10 caps ondansetron 4 mg disintegrating 4 mg PO Q8H PRN PRN Na usea #10 tabs 06/14/24 Unknown Rx tablet Allergy/AdvReac Type Severity Reaction Status Date / Time zinc oxide Allergy Unknown Verified 06/14/24 13:33 naproxen (From Naprosyn) AdvReac Nausea Verified 06/14/24 13:33 Family History Unknown Alcoholism Anxiety Asthma Depression Myocardial infarction Suicide attempt Other Cancer Surgical History History of liver biopsy Hx of wisdom tooth extraction Hx laparoscopic cholecystectomy History of cholecystectomy History of laparoscopic appendectomy Social History Smoking Status: Current every day smoker tobacco type: cigarettes and e- cigarettes alcohol intake: current alcohol intake frequency: a few times a month substance use type: 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, methamphetamine and other what type of physical activity do you participate in: yoga and weight training frequency: 3-4 times per week ROS ROS ED ROS Narrative Constitutional: Subjective fever, no chills. HEENT: Occasional sore throat. No neck pain. No loss of vision. No rhinorrhea. Cardiovascular: No chest pain. No palpitations. No pedal edema. Respiratory: Positive cough, positive shortness of breath. Abdominal: No abdominal pain. Positive nausea. No vomiting. Genitourinary: No dysuria. No hematuria. Musculoskeletal: Multiple myalgias and arthralgias. Neurologic: No headaches. Positive lightheadedness and dizziness. Skin: No rash. No change in color. EXAM Physical Exam Narrative Exam Narrative: Afebrile. Vital signs noted. Nontoxic-appearing. HEENT examination shows nasal congestion. Airway patent, no pharyngeal exudate, no meningismus, no drooling or trismus. Neck soft and supple without stridor. Cardiovascular examination feels a regular rate and rhythm. Lungs are clear to auscultation bilaterally. Abdomen is soft and nontender with positive bowel sounds. Neurological examination nonfocal and nonlateralizing. Const Vital Signs: 06/14/24 13:32 06/14/24 14:54 06/14/24 16:01 Temperature 96.6 F L Temperature Source Oral Pulse Rate 97 85 Respiratory Rate 18 16 Respiratory Effort Normal Non-Labored Respiratory Pattern Normal Blood Pressure 117/77 122/67 H Blood Pressure Mean 90 85 Pulse Ox 98 93 Oxygen Delivery Method Room Air MDM MDM MDM Narrative Medical decision making narrative: Differential diagnosis includes but not limited to viral syndrome versus pneumonia versus dehydration. I do not feel she needs laboratory work or IV fluids because she is nauseated but has not vomited. Additionally, I discussed with her the utility of repeating a chest x-ray from 2 days ago as her pulse ox is negative and she is afebrile here. She agrees that it is not indicated. Treatment be symptomatic. We will swab her for COVID and influenza/RSV. She was given a Zofran ODT here. She passed p.o. challenge. I reviewed her respiratory swab she is positive for influenza A. As her symptoms have been ongoing for the last few days, greater than 48 hours, I do not feel that Tamiflu is indicated. I feel he should be discharged to follow-up and continue plenty of oral fluids, rest, and [id number] medications as needed. Follow-up with her primary care provider. I did write her prescription for 10 Zofran ODT's. Return instructions reviewed. Disposition is discharged home in stable condition. History & Record Review Discussion w/independent historian: Patient Discharge Plan Triage Chief Complaint: General Illness ED Provider: Crsitóbal Christiansen Dx/Rx/DC Orders Clinical Impression: Influenza A, Viral syndrome, Nausea Instructions: ED Influenza (Adult), ED Viral Syndrome (Adult) Prescriptions: New ondansetron 4 mg tablet,disintegrating 4 mg PO Q8H PRN PRN (Reason: Nausea) Qty: 10 0RF No Action Nurtec ODT 75 mg tablet,disintegrating 75 mg PO ONCE PRN (Reason: migraine headache) Rx Instructions: as a single dose atomoxetine 80 mg capsule 80 mg PO DAILY Qty: 30 2RF Vraylar 3 mg capsule 3 mg PO DAILY Qty: 30 2RF Rx Instructions: TAKE 1 CAPSULE BY MOUTH DAILY duloxetine 60 mg capsule,delayed release(DR/EC) 60 mg PO DAILY Qty: 30 2RF benzonatate 100 mg capsule 100 mg PO TID PRN (Reason: PRN cough) 4 Days Qty: 10 0RF valacyclovir 500 mg tablet 500 mg PO DAILY ibuprofen 400 mg tablet 400 mg PO Q8H PRN PRN (Reason: pain) hydroxyzine pamoate 25 mg capsule 25 mg PO QHS Rx Instructions: TAKE 1 CAPSULE BY MOUTH AT BEDTIME amlodipine 5 mg tablet 5 mg PO DAILY Rx Instructions: take 1 tablet by mouth daily gabapentin 400 mg capsule 400 mg PO Q8H 30 Days Qty: 90 2RF lorazepam 0.5 mg tablet 0.5 mg PO DAILY PRN (Reason: anxiety) Qty: 15 1RF Primary Care Provider: Navi Kemp Referrals: Navi Kemp MD [Primary Care Provider] - 1 Week if not improving Activity Restrictions/Additional Instructions: Drink plenty of oral fluids. Tylenol or ibuprofen as needed for pain and fever. Print Language: Amharic Disposition Disposition: Home, Self Care
[2024-06-14] MEDS: Ondansetron ODT 4 MG Tablet PO (14:52)
[2024-06-14 16:01] VITALS: BP 122/67; PULSE 85; RESP 16; O2SAT 93
[2024-06-14 16:21] VITALS: BP 122/67; PULSE 83; RESP 18; TEMP 36.6; O2SAT 98
== END 2024-06-14 16:23 | disposition home or self-care (01) ==
PROVIDERS: Emergency Provider Emergency Medicine; PCP Internal Medicine; Visit Provider Emergency Medicine
DX: J10.1 Influenza due to other identified influenza virus with other respiratory manifestations (principal); F17.210 Nicotine dependence, cigarettes, uncomplicated; F17.290 Nicotine dependence, other tobacco product, uncomplicated
CPT/HCPCS: 87631; 99282

== ENCOUNTER → 2024-06-18 | Outpatient (CLI) | payer MEDICAID, SELFPAY ==
[2024-06-18 16:53] LABS: Absolute Lymphocyte Count 1.73 X10^3/uL (0.83-4.51); Absolute Neutrophil Count 3.4 X10^3/uL (2.0-7.7); Basophil# 0.04 X10^3/uL; Basophil% 0.7 % (0-1); Eosinophil# 0.04 X10^3/uL; Eosinophils% 0.7 % (0-5); Hemoglobin 14.7 g/dL (12.0-15.0); Lymphocyte # 1.73 X10^3/ul (0.83-4.51); Lymphocyte % 29.8 % (19-41); Mean Corp Hgb Conc 32.7 g/dL (32-36); Mean Corpuscular Hgb 28.1 pg (27.0-32.0); Mean Platelet Vol. 10.3 fl (6.2-12.0); Monocyte# 0.57 X10^3/uL; Monocyte% 9.8 % (0-10); NRBC Flagged by Analyzer 0 % (0-5); Neutrophil % 58.7 % (47-70); Platelet Count 368 K/mm3 (150-450); RBC Distribution Width CV 13.2 % (11.6-14.6); Red Blood Count 5.23 M/mm3 (4.2-5.4); White Blood Count 5.8 K/mm3 (4.4-11.0)
[2024-06-18 17:10] LABS: Amphetamine Urine NEGATIVE (<1000 ng/mL); Barbiturate Urine VISTA NEGATIVE (< 200 ng/mL); Benzodiazepine Urine VISTA NEGATIVE (< 200 ng/mL); Cocaine Urine VISTA NEGATIVE (< 300 ng/mL); Ecstacy Urine VISTA NEGATIVE (< 500 ng/mL); Methadone Urine VISTA NEGATIVE (< 300 ng/mL); Opiates Urine NEGATIVE (< 300 ng/mL); PCP Urine NEGATIVE (< 25 ng/mL); THC Urine VISTA POSITIVE (< 50 ng/mL); Vista UDS pH Range 6
[2024-06-18 17:20] LABS: ALB/GLOB Ratio 0.9 RATIO (0.9-2.4); AST(SGOT) 25 U/L (15-37); Alanine Aminotransfer ALT/SGPT 125 U/L (13-56); Albumin, Serum 3.5 g/dL (3.2-5.0); Alkaline Phosphatase 170 U/L (45-117); Anion Gap 6 (5-15); BUN 9 mg/dL (7-18); BUN/Creat Ratio 9.7 RATIO (10-20); Calcium,Total 9.1 mg/dL (8.5-10.1); Chloride 105 mmol/L (98-107); Cholesterol 171 mg/dL (200); Creatinine, Serum 0.92 mg/dL (0.55-1.02); EST Glomerular Filtration Rate 74 mL/min (>60); Est Glom Filt Rate - Afr Amer 90 mL/min (>60); Globulin 3.9 g/dL (2.2-4.2); Glucose 85 mg/dL (74-106); High Density Lipoprotein 54 mg/dL; Potassium 4.1 mmol/L (3.5-5.1); Protein, Total 7.4 g/dL (6.4-8.2); Sodium Level 138 mmol/L (136-145); Triglycerides 103 mg/dL; Very Low Density Lipoprotein 21 mg/dL (5-40)
[2024-06-20 22:06] LABS: HCV Quant. RNA PCR HCV Not Detected IU/mL (.)
== END | disposition home or self-care (01) ==
LOC: BIMLAB 15:41
PROVIDERS: Internal Medicine Gastroenterology; PCP Internal Medicine; Referring Provider Internal Medicine; Visit Provider Internal Medicine
DX: I10 Essential (primary) hypertension (principal); Z51.81 Encounter for therapeutic drug level monitoring; B19.20 Unspecified viral hepatitis C without hepatic coma
CPT/HCPCS: 36415; 80053; 80061; 80307; 85025; 87522

== ENCOUNTER 2024-07-08 14:28 | Emergency (ER) | payer MEDICAID, SELFPAY ==
[2024-07-08] VITALS (7 sets, daily range): BP systolic 112–145; BP diastolic 57–90; PULSE 65–97; RESP 12–18; TEMP 36.8–36.9; O2SAT 95–99; BMI 30.7
[2024-07-08 14:59] LABS: Absolute Lymphocyte Count 1.83 X10^3/uL (0.83-4.51); Absolute Neutrophil Count 3.9 X10^3/uL (2.0-7.7); Basophil# 0.07 X10^3/uL; Basophil% 1.1 % (0-1); Eosinophil# 0.08 X10^3/uL; Eosinophils% 1.3 % (0-5); Hematocrit 43.4 % (37-47); Hemoglobin 14.3 g/dL (12.0-15.0); Lymphocyte # 1.83 X10^3/ul (0.83-4.51); Lymphocyte % 28.6 % (19-41); Mean Corp Hgb Conc 32.9 g/dL (32-36); Mean Corpuscular Hgb 28.7 pg (27.0-32.0); Mean Platelet Vol. 9.7 fl (6.2-12.0); Monocyte# 0.47 X10^3/uL; Monocyte% 7.3 % (0-10); NRBC Flagged by Analyzer 0 % (0-5); Neutrophil # 3.93 X10^3/uL (2.7-7.7); Neutrophil % 61.4 % (47-70); Platelet Count 399 K/mm3 (150-450); RBC Distribution Width CV 13.2 % (11.6-14.6); RBC Distribution Width SD 41.3 fl (35.1-43.9); Red Blood Count 4.99 M/mm3 (4.2-5.4); White Blood Count 6.4 K/mm3 (4.4-11.0)
[2024-07-08 15:22] LABS: Anion Gap 14 (5-15); BUN 11 mg/dL (4-19); BUN/Creat Ratio 13.1 RATIO (10-20); Calcium,Total 8.9 mg/dL (7.6-11.0); Chloride 105 mmol/L (98-108); Creatinine, Serum 0.81 mg/dL (0.70-1.20); EST Glomerular Filtration Rate 98 (>60); Estimated Creatinine Clearance 109.32 ml/min (50-250); Glucose 90 mg/dL (70-99); Sodium Level 139 mmol/L (133-145)
[2024-07-08 15:23] LABS: Internal QC Validated? YES +Cl - CLEAR BKGD; Pregnancy, Serum, hCG Quali. NEGATIVE Negative
[2024-07-08 15:51] LABS: Alcohol, Blood (Medical)-Serum 56.6 mg/dL (<=10.0)
[2024-07-08 15:54] LABS: Amphetamine Urine PRESUMTIVE POSITIVE (<1000 ng/mL); Barbiturate Urine NEGATIVE (< 200 ng/mL); Benzodiazepine Urine PRESUMPTIVE POSITIVE (< 200 ng/mL); Buprenorphine Urine NEGATIVE (< 200 ng/mL); Cocaine Urine NEGATIVE (< 300 ng/mL); Fentanyl, Urine NEGATIVE; Methadone Urine NEGATIVE (< 300 ng/mL); Opiates Urine NEGATIVE (< 300 ng/mL); Oxycodone, Urine NEGATIVE (< 100 ng/mL); PCP Urine NEGATIVE (< 25 ng/mL); THC Urine PREUMTIVE POSITIVE (< 50 ng/mL)
--- NOTE | 2024-07-08 17:46 | EDS_ITS ---
HPI HPI - Psych History of Present Illness Chief Complaint: Mental Health Onset/Context/Timing Onset: Month(s) Context: Gradual Onset Timing: Waxes and wanes Worsened by: - (Stress) Relieved by: Nothing Associated Symptoms Associated Symptoms - Psych: Positive for Depressed; Negative for Visual Hallucinations or Auditory Hallucinations Narrative Narrative: Patient presents with depression that has been getting worse over the past few months. Patient states it has gotten worse over the last couple days. Patient admits to suicidal thoughts but would not elaborate on a specific suicidal plan. Patient denies any visual or auditory hallucinations. Patient states that sometimes stress makes her symptoms worse. Patient denies any chest pain or shortness of breath. Patient denies any nausea or vomiting. Patient denies any headaches. PFSH PFS Medical History History of substance abuse Therapeutic drug monitoring Viral URI with cough Loss of hearing Wears glasses Restless legs Back pain Migraine headache Vertigo Hoarseness Heartburn Smoker Asthma Shortness of breath on exertion Leg cramps Tachycardia Knee pain, right ADHD Hypertension Arthritis Hepatitis C Encounter for preventative adult health care examination MDD (major depressive disorder) Suprapubic discomfort Cellulitis of left foot Abnormal kidney function Vertigo Chronic dental pain Contact with and (suspected) exposure to other viral communicable diseases URI (upper respiratory infection) Left ankle sprain Encounter for screening for COVID-19 Acute maxillary sinusitis, unspecified Lumbar radiculopathy Right elbow pain Chronic neck pain Bee sting Chronic low back pain GERD (gastroesophageal reflux disease) PTSD (post-traumatic stress disorder) Anxiety and depression Bipolar 1 disorder Drug abuse Chronic bronchitis Alcohol abuse Home Medications ?Medication ?Instructions ?Recorded ?Last Taken ?Type valacyclovir 500 mg tablet 500 mg PO DAILY 11/05/20 Un known History rimegepant 75 mg disintegrating 75 mg PO ONCE PRN migr pawan headache 01/17/24 Unknown History tablet (Nurtec ODT) amlodipine 5 mg tablet 5 mg PO DAILY 03/21/24 Unkno wn History hydroxyzine pamoate 25 mg capsule 25 mg PO QHS 4 Unknown History ibuprofen 400 mg tablet 400 mg PO Q8H PRN PRN pain 1 05/21/23 Unknown History lorazepam 0.5 mg tablet 0.5 mg PO DAILY PRN anxiety #15 05/21/24 Unknown Rx tabs atomoxetine 80 mg capsule 80 mg PO DAILY #30 caps 05/08 05/31 Unknown Rx cariprazine 3 mg capsule (Vraylar) 3 mg PO DAILY #30 c aps 05/27/24 Unknown Rx duloxetine 60 mg capsule,delayed 60 mg PO DAILY #30 ca ps 05/27/24 Unknown Rx release gabapentin 400 mg capsule 400 mg PO Q8H 30 days #90 ca ps 06/18/24 Unknown Rx Allergy/AdvReac Type Severity Reaction Status Date / Time zinc oxide Allergy Unknown Verified 07/08/24 14:29 naproxen (From Naprosyn) AdvReac Nausea Verified 07/08/24 14:29 Family History Unknown Alcoholism Anxiety Asthma Depression Myocardial infarction Suicide attempt Other Cancer Surgical History History of liver biopsy Hx of wisdom tooth extraction Hx laparoscopic cholecystectomy History of cholecystectomy History of laparoscopic appendectomy Social History Smoking Status: Current every day smoker tobacco type: cigarettes and e- cigarettes alcohol intake: current alcohol intake frequency: a few times a month substance use type: 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, methamphetamine and other what type of physical activity do you participate in: yoga and weight training frequency: 3-4 times per week ROS ROS ED Constitutional Constitutional ED: Denies chills or fever(s) Eyes Eyes: Denies blurry vision or change in vision ENT ENT ED: Denies rhinorrhea or sore throat Cardiovascular Cardiovascular: Denies chest pain or palpitations Respiratory/Chest Respiratory/Chest: Denies cough or dyspnea Gastrointestinal Gastrointestinal: Denies nausea or vomiting Genitourinary Genitourinary ED: Denies dysuria or hematuria Musculoskeletal Musculoskeletal: Denies back pain or neck pain Integumentary Denies abscess or rash Neurologic Neurologic: Denies headache(s) or weakness Psychiatric Psychiatric: Reports depression, suicidal ideation and suicidal thoughts Allergic/Immunologic Allergic/Immunologic ED: Denies mouth swelling or urticaria EXAM Physical Exam Const Vital Signs: 07/08/24 14:29 07/08/24 15:28 07/08/24 16:28 Temperature 98.4 F Temperature Source Oral Pulse Rate 94 86 65 Respiratory Rate 16 16 12 Blood Pressure 127/86 H 127/80 H 112/90 H Blood Pressure Mean 99 95 97 Pulse Ox 96 98 99 Oxygen Delivery Method Room Air Room Air Room Air 07/08/24 17:28 07/08/24 18:00 07/08/24 20:00 Temperature 98.2 F Temperature Source Oral Pulse Rate 97 66 85 Respiratory Rate 18 12 18 Blood Pressure 145/69 H 131/59 H 128/57 H Blood Pressure Mean 94 83 80 Pulse Ox 95 98 95 Oxygen Delivery Method Room Air Room Air Room Air 07/08/24 20:30 Temperature 98.2 F Temperature Source Pulse Rate 85 Respiratory Rate 18 Blood Pressure 128/57 H Blood Pressure Mean 80 Pulse Ox 98 Oxygen Delivery Method Positive well nourished and well developed General Appearance ED: well developed and NAD HEENT Reports moist mucous membranes normocephalic and atraumatic Neck supple and no JVD Resp normal respiratory effort and clear to auscultation bilaterally Cardio Rate: regular rate Rhythm: regular rhythm GI non-tender and non-distended Palpation: soft Neuro oriented x3, CN's II-XII intact bilaterally and no sensory deficits noted [place] Coma Scale: document GCS findings Spontaneous Obeys Commands Oriented 15 Sensorium / Orientation: alert Motor Exam: strength 5/5 throughout and muscle tone normal throughout Psych Appearance: grossly normal Activity / Motor Behavior: avoids eye contact Speech: soft Mood & Affect: depressed and flat affect Thought Content: suicidality MDM MDM MDM Narrative Medical decision making narrative: Medical screening labs will be obtained. CBC will be obtained to assess for leukocytosis and anemia. Basic metabolic profile will be obtained to assess for electrolyte abnormality and renal function. Urine hCG will be obtained to assess for . Serum alcohol level will be obtained to assess for alcohol intoxication. Urine drug screen will be obtained to assess for substance abuse. Lab Data Attestation: I reviewed the patient's lab results. Lab results narrative: CBC was reviewed and was within normal limits. Basic metabolic profile was reviewed and was essentially within normal limits. Serum hCG was reviewed and was negative. Serum alcohol level was reviewed and was 56.6. Urine drug screen was positive for amphetamines, benzodiazepines, and cannabinoids. Labs: Laboratory Results - last 24 hr 07/08/24 14:48 WBC 6.4 RBC 4.99 Hgb 14.3 Hct 43.4 MCV 87.0 MCH 28.7 MCHC 32.9 RDW Std Deviation 41.3 RDW Coeff of [place] 13.2 Plt Count 399 MPV 9.7 Immature Gran % (Auto) 0.300 Neut % (Auto) 61.4 Lymph % (Auto) 28.6 [place] % (Auto) 7.3 Eos % (Auto) 1.3 Baso % (Auto) 1.1 H Absolute Neuts (auto) 3.9 Absolute Lymphs (auto) 1.83 Nucleated RBC % 0 Sodium 139 Potassium 4.0 Chloride 105 Carbon Dioxide 20.0 L Anion Gap 14 BUN 11 Creatinine 0.81 Estim Creat Clear Calc 109.32 Est GFR (MDRD) Non-Af 98 BUN/Creatinine Ratio 13.1 Glucose 90 Calcium 8.9 Serum , Qual NEGATIVE Urine Opiates Screen NEGATIVE U Buprenorphine Qual NEGATIVE Ur Oxycodone Screen NEGATIVE Urine Methadone Screen NEGATIVE Urine Fentanyl Screen NEGATIVE Ur Barbiturates Screen NEGATIVE Ur Phencyclidine Scrn NEGATIVE Ur Amphetamines Screen PRESUMTIVE POSITIVE U Benzodiazepines Scrn PRESUMPTIVE POSITIVE Urine Cocaine Screen NEGATIVE U Cannabinoids Screen PREUMTIVE POSITIVE Ethyl Alcohol 56.6 H Management Discussion w/another healthcare provider: workers compensation claims examiner/Case management Treatment and Re-Evaluation Narrative: Patient was placed in the room. Suicide precautions were maintained. Case was discussed with vp digital marketing social media and crm. She was able to talk to the patient to get better history. Patient told vp digital marketing social media and crm that she did write a suicide note last night. workers compensation claims examiner feels that the patient would benefit from inpatient treatment. She is attempting to arrange for placement. [place] slip was placed on the chart. workers compensation claims examiner was able to do arrange for transfer to [facility]. Patient will be transferred there when a bed becomes available. Transfer form was filled out. Patient understand and are agreeable with this plan. All were answered. Discharge Plan Triage Chief Complaint: Mental Health ED Provider: Kaleb Molina Dx/Rx/DC Orders Clinical Impression: Depression, PTSD (post-traumatic stress disorder), Suicidal ideation Prescriptions: No Action Nurtec ODT 75 mg tablet,disintegrating 75 mg PO ONCE PRN (Reason: migraine headache) Rx Instructions: as a single dose atomoxetine 80 mg capsule 80 mg PO DAILY Qty: 30 2RF Vraylar 3 mg capsule 3 mg PO DAILY Qty: 30 2RF Rx Instructions: TAKE 1 CAPSULE BY MOUTH DAILY duloxetine 60 mg capsule,delayed release(DR/EC) 60 mg PO DAILY Qty: 30 2RF valacyclovir 500 mg tablet 500 mg PO DAILY ibuprofen 400 mg tablet 400 mg PO Q8H PRN PRN (Reason: pain) hydroxyzine pamoate 25 mg capsule 25 mg PO QHS Rx Instructions: TAKE 1 CAPSULE BY MOUTH AT BEDTIME amlodipine 5 mg tablet 5 mg PO DAILY Rx Instructions: take 1 tablet by mouth daily lorazepam 0.5 mg tablet 0.5 mg PO DAILY PRN (Reason: anxiety) Qty: 15 1RF gabapentin 400 mg capsule 400 mg PO Q8H 30 Days Qty: 90 2RF Primary Care Provider: Navi Kemp Referrals: Navi Kemp MD [Primary Care Provider] - Print Language: Syriac Disposition Disposition: Psychiatric Hospital or Unit Discharge Location: [facility]
--- NOTE | 2024-07-08 18:36 | ED.RN ---
THIS RN ASSISTING PT CHANGE INTO HOSPITAL GOWN. PT STATES THIS IS RIDICULOUS I SHOULD JUST LEAVE ADDITIONALLY PT STATES I SHOULD HAVE JUST KILLED MYSELF YESTERDAY
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
--- NOTE | 2024-07-08 20:01 | CM.ED ---
Social Work SW verified that [facility] has a female bed available. Referral sent. Plan: Inpatient psychiatric hospitalization pending acceptance. Ana Walsh MSW, [facility]
--- NOTE | 2024-07-08 20:39 | CM.ED ---
Addendum entered by Ana Walsh 07/08/24 21:32: Patient asked SW not to inform boyfriend where she will be going. RICHARD Mercado, CLIENT APPLICATION SUPPORT SPECIALIST Original Note: Social Work Patient accepted at [facility], admitting physician is Dr Fournier. N2N is [phone], [place] slip sent. RICHARD Mercado, CLIENT APPLICATION SUPPORT SPECIALIST
[2024-07-08] MEDS: hydrOXYzine PAM 25 MG Capsule PO (22:12)
--- NOTE | 2024-07-09 16:00 | CM.ED ---
Social Work Received call from a Alma Rosa Crowley ([phone]) who left a message indicating she was the person who brought patient to the ED to be assessed for mental health and would like to know what happened to patient, as well as referenced patient's significant other is also unsure of the outcome. Alma Rosa is not listed in the EMR, that this aligner typewriter can see on patient's emergency contact nor indicated as present with patient in the ED. Collaborated with RICHARD Perez who assessed and placed patient for inpatient admission. Ana not aware of Alma Rosa being present in the ED. This aligner typewriter also confirmed wiquinn Perez patient's significant other's involvement. Ana confirms patient verbally requested the significant other not to be notified of discharge destination. Patient's outpatient provider is Dr. Gibbs at [facility]. Called [facility], spoke with social research assistant Krysta, to update to call being received on patient's whereabouts. Krysta agreed to pass the message along to the patient for consideration of calling Alma Rosa. This aligner typewriter also updated Krysta that patient's community provider is Dr. Gibbs for psychiatry, to gas stove servicer helper in follow up and and continuity of care of this patient at discharge from inpatient. Krysta thanked social research assistant. No other services requested or indicated. -ANDREEA Rivera
== END 2024-07-09 01:55 ==
PROVIDERS: Emergency Provider Emergency Medicine; PCP Internal Medicine; Visit Provider Emergency Medicine
DX: F32.A Depression, unspecified (principal); F43.10 Post-traumatic stress disorder, unspecified; R45.851 Suicidal ideations; F17.210 Nicotine dependence, cigarettes, uncomplicated; F17.290 Nicotine dependence, other tobacco product, uncomplicated
CPT/HCPCS: 36415; 80048; 80307; 82077; 84703; 85025; 99285

== ENCOUNTER 2024-08-18 17:41 | Emergency (ER) | payer MEDICAID, SELFPAY ==
[2024-08-18 17:46] VITALS: BP 127/81; PULSE 84; RESP 16; TEMP 36.5; O2SAT 98; BMI 30.9
--- NOTE | 2024-08-18 19:11 | RAD_ITS ---
EXAM: Left leg CLINICAL HISTORY: Pain TECHNIQUE: Two-view FINDINGS: No acute fracture or dislocation. Normal soft tissues. RAD/Tibia & Fibula 2 Views IMPRESSION: No acute fracture or dislocation. Reading Location: [id number]
== END 2024-08-18 20:40 | disposition left against medical advice (07) ==
LOC: ED 20:41
PROVIDERS: PCP Internal Medicine
DX: Z53.21 Procedure and treatment not carried out due to patient leaving prior to being seen by health care provider (principal)
CPT/HCPCS: 73590

== ENCOUNTER 2024-09-11 17:55 | Emergency (ER) | payer MEDICAID, SELFPAY ==
[2024-09-11 17:56] VITALS: BP 130/82; PULSE 91; RESP 15; TEMP 36.2; O2SAT 100; BMI 33.2
--- NOTE | 2024-09-11 18:18 | ED.VIS.LOWEX ---
HPI History of Present Illness Chief Complaint: Lower Extremity Injury Detail of Chief Complaint: Left leg pain Informant: patient Narrative Narrative: Patient presents with left leg pain that she has had for about a month. She states that she did not have any significant injury but did walk at 1 point from the soccer field in [place] to the library twice and ever since that time a month ago she has been having pain. She was seen by [facility]. She started physical therapy yesterday. She denies recent travel or surgery. She is not on oral contraceptive. No history of PE or DVT. She denies chest pain or shortness of breath. A lot of her pain seems to be at the Achilles tendon but her entire calf feels swollen and painful at times. PFSH PFS Medical History History of substance abuse Therapeutic drug monitoring Viral URI with cough Loss of hearing Wears glasses Restless legs Back pain Migraine headache Vertigo Hoarseness Heartburn Smoker Asthma Shortness of breath on exertion Leg cramps Tachycardia Knee pain, right ADHD Hypertension Arthritis Hepatitis C Encounter for preventative adult health care examination MDD (major depressive disorder) Suprapubic discomfort Cellulitis of left foot Abnormal kidney function Vertigo Chronic dental pain Contact with and (suspected) exposure to other viral communicable diseases URI (upper respiratory infection) Left ankle sprain Encounter for screening for COVID-19 Acute maxillary sinusitis, unspecified Lumbar radiculopathy Right elbow pain Chronic neck pain Bee sting Chronic low back pain GERD (gastroesophageal reflux disease) PTSD (post-traumatic stress disorder) Anxiety and depression Bipolar 1 disorder Drug abuse Chronic bronchitis Alcohol abuse Home Medications ?Medication ?Instructions ?Recorded ?Last Taken ?Type valacyclovir 500 mg tablet 500 mg PO DAILY 11/05/20 Unknown History rimegepant 75 mg disintegrating 75 mg PO ONCE PRN migraine headache 01/17/24 Unknown History tablet (Nurtec ODT) amlodipine 5 mg tablet 5 mg PO DAILY 03/21/24 Unknown History ibuprofen 400 mg tablet 400 mg PO Q8H PRN PRN pain 03/21/24 Unknown History gabapentin 400 mg capsule 400 mg PO Q8H 30 days #90 caps 06/18/24 Unknown Rx hydroxyzine HCl 50 mg tablet 50 mg PO TID 07/17/24 Unknown History aripiprazole 5 mg tablet 5 mg PO DAILY #30 tabs 09/04/24 Unknown Rx atomoxetine 100 mg capsule 100 mg PO DAILY #30 caps 09/04/24 Unknown Rx duloxetine 60 mg capsule,delayed 60 mg PO DAILY #30 caps 09/04/24 Unknown Rx release lorazepam 1 mg tablet 1 mg PO DAILY PRN anxiety #30 tabs 09/04/24 Unknown Rx meloxicam 15 mg tablet 15 mg PO QDAY 09/04/24 Unknown History prazosin 1 mg capsule 1 mg PO QHS #30 caps 09/04/24 Unknown Rx tramadol 50 mg tablet 50 mg PO Q6H PRN pain #14 tabs 09/11/24 Unknown Rx Allergy/AdvReac Type Severity Reaction Status Date / Time zinc oxide Allergy Unknown Verified 09/11/24 17:58 naproxen (From Naprosyn) AdvReac Nausea Verified 09/11/24 17:58 Family History Unknown Alcoholism Anxiety Asthma Depression Myocardial infarction Suicide attempt Other Cancer Surgical History History of liver biopsy Hx of wisdom tooth extraction Hx laparoscopic cholecystectomy History of cholecystectomy History of laparoscopic appendectomy Social History (Updated 09/11/24 @ 18:40 by Yolande Dupree) household members: other Smoking Status: Current every day smoker tobacco type: cigarettes and e-cigarettes alcohol intake: current alcohol intake frequency: a few times a month substance use type: 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, methamphetamine and other what type of physical activity do you participate in: yoga and weight training frequency: 3-4 times per week ROS ROS ED Review of Systems ROS Unobtainable: other Constitutional Constitutional ED: Reports lethargy; Denies chills, fever(s), sweats or weight loss Eyes Eyes: Denies blurry vision, change in vision or diplopia ENT ENT ED: Denies rhinorrhea or sore throat Cardiovascular Cardiovascular: Denies chest pain, orthopnea or racing heartbeat Respiratory/Chest Respiratory/Chest: Denies cough, dyspnea, dyspnea on exertion, orthopnea or sputum Gastrointestinal Gastrointestinal: Denies abdominal pain, diarrhea, nausea or vomiting Genitourinary Genitourinary ED: Denies dysuria, hematuria or urinary frequency Musculoskeletal Musculoskeletal: Reports other Details: Left leg pain ; Denies arthralgias, back pain, myalgias or neck pain Integumentary Denies abscess, Abrasions or rash Neurologic Neurologic: Denies headache(s) or weakness Psychiatric Psychiatric: Denies anxiety, depression or suicidal thoughts Endocrine Endocrinology: Denies polydipsia, polyphagia or polyuria Hematologic/Lymphatic Hematologic/Lymphatic: Denies easy bleeding, easy bruising or lymphadenopathy Allergic/Immunologic Allergic/Immunologic ED: Denies mouth swelling, tongue swelling or urticaria EXAM Physical Exam Const Vital Signs: 09/11/24 17:56 Temperature 97.1 F L Temperature Source Temporal Pulse Rate 91 Respiratory Rate 15 Blood Pressure 130/82 H Blood Pressure Mean 98 Pulse Ox 100 Oxygen Delivery Method Room Air Positive well nourished and well developed General Appearance ED: well developed and NAD HEENT Reports TM's clear and moist mucous membranes normocephalic and atraumatic; Negative for trauma or tenderness Tympanic Membrane ED: Yes TM's clear Eyes PERRL and EOMs intact bilaterally General Eye ED: Negative for pale conjunctiva or scleral icterus Neck no lymphadenopathy, supple and no JVD General: Negative for tenderness Chest Wall inspection of chest normal and palpation of chest normal Chest: Negative for tenderness Resp normal respiratory effort and clear to auscultation bilaterally Effort and Inspection: Negative for respiratory distress or pain with movement Auscultation: Negative for rhonchi, wheezes or diminished lung sounds Cardio regular rate, regular rhythm, S1 normal heart sound, S2 normal heart sound and no murmurs Peripheral Pulses: pulses 2+ throughout GI normal to inspection, nondistended, normoactive bowel sounds, soft to palpation, non-tender, non-distended and no masses Back/Spine no CVA tenderness and no thoracic nor lumbar tenderness Extremity Extremity Narrative: Left leg-patient has tenderness palpation over the Achilles tendon. There is no erythema or warmth. No obvious defect noted in the tendon. Normal Man test. No ropes or cords palpated in the calf although she does have some tenderness diffusely. No cellulitic changes. General Extremety ED: Negative for edema General Extremity: Negative for edema Neuro oriented x3, CN's II-XII intact bilaterally, no sensory deficits noted and gait normal Sensorium / Orientation: awake, alert, oriented to person, oriented to place and oriented to time Motor Exam: strength 5/5 throughout and strength abnormal Psych mental status grossly normal Skin no rashes or lesions noted and no wounds MDM MDM MDM Narrative Medical decision making narrative: Patient presents with tenderness over the left Achilles tendon complaint Pain. She was seen in our department on August 18 and had x-rays of the tib-fib that were negative. She had no trauma since then therefore I do not feel any other x-rays are indicated. I did obtain a venous Doppler to rule out DVT and this was negative. At this point suspect likely tendinitis of the Achilles tendon. I will write her for tramadol and will give an Miles wrap and a walking boot as well as crutches for comfort. Advised to follow-up with orthopedics as she is currently seeing them. Discharge Plan Triage Chief Complaint: Lower Extremity Injury ED Provider: David Persaud Dx/Rx/DC Orders Clinical Impression: Achilles tendinitis Instructions: ED Tendonitis Prescriptions: New tramadol 50 mg tablet 50 mg PO Q6H PRN (Reason: pain) Qty: 14 0RF No Action Nurtec ODT 75 mg tablet,disintegrating 75 mg PO ONCE PRN (Reason: migraine headache) Rx Instructions: as a single dose hydroxyzine HCl 50 mg tablet 50 mg PO TID meloxicam 15 mg tablet 15 mg PO QDAY atomoxetine 100 mg capsule 100 mg PO DAILY Qty: 30 2RF aripiprazole 5 mg tablet 5 mg PO DAILY Qty: 30 2RF duloxetine 60 mg capsule,delayed release(DR/EC) 60 mg PO DAILY Qty: 30 2RF lorazepam 1 mg tablet 1 mg PO DAILY PRN (Reason: anxiety) Qty: 30 0RF prazosin 1 mg capsule 1 mg PO QHS Qty: 30 2RF valacyclovir 500 mg tablet 500 mg PO DAILY ibuprofen 400 mg tablet 400 mg PO Q8H PRN PRN (Reason: pain) amlodipine 5 mg tablet 5 mg PO DAILY Rx Instructions: take 1 tablet by mouth daily gabapentin 400 mg capsule 400 mg PO Q8H 30 Days Qty: 90 2RF Primary Care Provider: Navi Kemp Referrals: Navi Kemp MD [Primary Care Provider] - Activity Restrictions/Additional Instructions: Follow-up with [facility] within next 5 to 7 days Print Language: Mongolian Disposition Disposition: Home, Self Care
--- NOTE | 2024-09-11 18:19 | US_ITS ---
PROCEDURE: VENOUS DUPLEX IMAG/LIMITED/UNI 09/11/2024 REASON FOR EXAM: Left leg pain and swelling in a 33-year-old female TECHNIQUE: Grayscale color flow and doppler analysis of the left lower extremity. COMPARISON: None FINDINGS: There is no intraluminal echogenicity to suggest the presence of a deep venous thrombosis. Appropriate respiratory variation, augmentation and venous compression is noted. US/Venous Duplex Imag/Limited/Uni IMPRESSION: No deep venous thrombosis identified in the left lower extremity. Reading Location: [id number]
--- NOTE | 2024-09-11 18:58 | ED.RN ---
pt declined need for walking boot and crutches
[2024-09-11 18:59] VITALS: BP 130/82; PULSE 91; RESP 15; TEMP 36.2; O2SAT 100
== END 2024-09-11 18:59 | disposition home or self-care (01) ==
PROVIDERS: Emergency Provider Emergency Medicine; PCP Internal Medicine; Referring Provider Emergency Medicine; Visit Provider Emergency Medicine
DX: M76.62 Achilles tendinitis, left leg (principal); I10 Essential (primary) hypertension; F17.210 Nicotine dependence, cigarettes, uncomplicated; F17.290 Nicotine dependence, other tobacco product, uncomplicated; Z79.899 Other long term (current) drug therapy
CPT/HCPCS: 93971; 99282

== ENCOUNTER → 2024-09-18 | Outpatient (CLI) | payer MEDICAID, SELFPAY ==
--- NOTE | 2024-09-18 15:48 | RAD_ITS ---
PROCEDURE: CHEST PA AND LATERAL 09/18/2024 REASON FOR EXAM: COUGH TECHNIQUE: Frontal and lateral views of the chest. COMPARISON: June 11, 2024. FINDINGS: Hardware: None Heart: The heart size is normal. Mediastinum: The mediastinal contour is unremarkable. Lungs: The lungs are clear. Bones: The bones are unremarkable. RAD/Chest PA and Lateral IMPRESSION: NEGATIVE CHEST Reading Location: [id number]
== END | disposition home or self-care (01) ==
LOC: MTRAD 15:47
PROVIDERS: PCP Internal Medicine; Referring Provider Physician Assistant Surgical; Visit Provider Physician Assistant Surgical
DX: J20.9 Acute bronchitis, unspecified (principal)
CPT/HCPCS: 71046

== ENCOUNTER 2024-11-02 13:32 | Emergency (ER) | payer MEDICAID, SELFPAY ==
[2024-11-02 13:33] VITALS: BP 116/80; PULSE 88; RESP 16; TEMP 37.1; O2SAT 99; BMI 31.4
--- NOTE | 2024-11-02 13:41 | EX.ED.UPPERE ---
HPI History of Present Illness HPI Narrative: Patient presents with pain to her right wrist that began 2 weeks ago. Patient states she was helping a friend move and was doing a lot of lifting. Patient states the next day she woke up with pain in her wrist. Patient states it is mainly over the radial aspect of her wrist. Patient denies any direct trauma or injury. Patient states her pain has been getting progressively worse. Patient states that it is aching. Patient states it is worse with movement. Patient states it is better with rest. Patient denies any paresthesias or weakness. Chief Complaint: Upper Extremity Injury Onset/Context/Timing Onset: Weeks (2) Context: Gradual Onset Timing: Continuous Quality of Pain: Aching Location: Radial aspect of the right wrist Worsened by: Movement Relieved by: Rest Associated Symptoms Associated Symptoms: Negative for Parasthesia, Weakness or Loss of Funtion PFSH PFSH Medical History History of substance abuse Therapeutic drug monitoring Viral URI with cough Loss of hearing Wears glasses Restless legs Back pain Migraine headache Vertigo Hoarseness Heartburn Smoker Asthma Shortness of breath on exertion Leg cramps Tachycardia Knee pain, right ADHD Hypertension Arthritis Hepatitis C Encounter for preventative adult health care examination MDD (major depressive disorder) Suprapubic discomfort Cellulitis of left foot Abnormal kidney function Vertigo Chronic dental pain Contact with and (suspected) exposure to other viral communicable diseases URI (upper respiratory infection) Left ankle sprain Encounter for screening for COVID-19 Acute maxillary sinusitis, unspecified Lumbar radiculopathy Right elbow pain Chronic neck pain Bee sting Chronic low back pain GERD (gastroesophageal reflux disease) PTSD (post-traumatic stress disorder) Anxiety and depression Bipolar 1 disorder Drug abuse Chronic bronchitis Alcohol abuse Home Medications ?Medication ?Instructions ?Recorded ?Last Taken ?Type valacyclovir 500 mg tablet 500 mg PO DAILY 11/05/20 Unknown History rimegepant 75 mg disintegrating 75 mg PO ONCE PRN migraine headache 01/17/24 Unknown History tablet (Nurtec ODT) amlodipine 5 mg tablet 5 mg PO DAILY 03/21/24 Unknown History ibuprofen 400 mg tablet 400 mg PO Q8H PRN PRN pain 03/21/24 Unknown History hydroxyzine HCl 50 mg tablet 50 mg PO TID 07/17/24 Unknown History atomoxetine 100 mg capsule 100 mg PO DAILY #30 caps 09/04/24 Unknown Rx duloxetine 60 mg capsule,delayed 60 mg PO DAILY #30 caps 09/04/24 Unknown Rx release meloxicam 15 mg tablet 15 mg PO QDAY 09/04/24 Unknown History prazosin 1 mg capsule 1 mg PO QHS #30 caps 09/04/24 Unknown Rx tramadol 50 mg tablet 50 mg PO Q6H PRN pain #14 tabs 09/11/24 Unknown Rx benzonatate 100 mg capsule 200 mg (2 x 100 mg) PO TID PRN 09/18/24 Unknown Rx cough #30 caps ipratropium bromide 21 mcg (0.03 2 spray intranasal BID-TID PRN 09/18/24 Unknown Rx %) nasal spray postnasal drainage #30 mL cariprazine 1.5 mg capsule 1.5 mg PO DAILY #30 caps 10/16/24 Unknown Rx lorazepam 1 mg tablet 1 mg PO DAILY PRN anxiety #30 tabs 10/16/24 Unknown Rx gabapentin 600 mg tablet 600 mg PO TID #90 tabs 10/31/24 Unknown Rx ibuprofen 600 mg tablet 600 mg PO Q8H PRN PRN pain #20 11/02/24 Unknown Rx TABLETS Allergy/AdvReac Type Severity Reaction Status Date / Time zinc oxide Allergy Unknown Verified 11/02/24 13:35 naproxen (From Naprosyn) AdvReac Nausea Verified 11/02/24 13:35 Family History Unknown Alcoholism Anxiety Asthma Depression Myocardial infarction Suicide attempt Other Cancer Surgical History History of liver biopsy Hx of wisdom tooth extraction Hx laparoscopic cholecystectomy History of cholecystectomy History of laparoscopic appendectomy Social History household members: other Smoking Status: Current every day smoker tobacco type: cigarettes and e-cigarettes alcohol intake: current alcohol intake frequency: a few times a month substance use type: 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, methamphetamine and other what type of physical activity do you participate in: yoga and weight training frequency: 3-4 times per week ROS ROS ED Constitutional Constitutional ED: Denies chills or fever(s) Eyes Eyes: Denies blurry vision or change in vision ENT ENT ED: Denies rhinorrhea or sore throat Cardiovascular Cardiovascular: Denies chest pain or palpitations Respiratory/Chest Respiratory/Chest: Denies cough or dyspnea Gastrointestinal Gastrointestinal: Denies nausea or vomiting Genitourinary Genitourinary ED: Denies dysuria or hematuria Musculoskeletal Musculoskeletal: Denies back pain or neck pain Integumentary Denies abscess or rash Neurologic Neurologic: Denies headache(s) or weakness Allergic/Immunologic Allergic/Immunologic ED: Denies mouth swelling or urticaria EXAM Physical Exam Const Vital Signs: 11/02/24 13:33 Temperature 98.7 F Temperature Source Oral Pulse Rate 88 Respiratory Rate 16 Blood Pressure 116/80 Blood Pressure Mean 92 Pulse Ox 99 Oxygen Delivery Method Room Air Positive well nourished and well developed Constitutional Narrative: BMI is 31.4. General Appearance ED: well developed and NAD HEENT Reports moist mucous membranes normocephalic and atraumatic Neck full ROM and supple Extremity Extremity Narrative: There is tenderness to palpation on the radial aspect of the right wrist. There is no tenderness of the anatomic snuffbox. There is no obvious deformity noted. Range of motion was slightly limited in all motions of the right wrist secondary to pain. There is a positive Jinny's test. Radial pulses are equal bilaterally. Sensation was intact to light touch in the radial, median, and ulnar areas. Strength is 5/5 in the radial, median, and ulnar areas. Neuro oriented x3, CN's II-XII intact bilaterally, moves all extremities, no focal motor deficits and no sensory deficits noted Sensorium / Orientation: alert Motor Exam: strength 5/5 throughout Psych mental status grossly normal MDM MDM MDM Narrative Medical decision making narrative: The patient was advised that this is de Quervain's tenosynovitis. Patient was advised that x-rays are not necessary at this time. Patient was given a thumb spica splint. Patient was instructed to ice and elevate the right wrist. Patient was given a prescription for ibuprofen to take as needed for pain. Patient was instructed to follow-up with her primary care physician in 5 to 7 days. Patient was instructed to return if worse in any way. Patient understood and was agreeable with the plan. All questions were answered. Discharge Plan Triage Chief Complaint: Upper Extremity Injury ED Provider: Kaleb oMlina Dx/Rx/DC Orders Clinical Impression: De Quervain's tenosynovitis, right, Hypertension, ADHD Instructions: ED De Quervain Tenosynovitis Prescriptions: New ibuprofen 600 mg tablet 600 mg PO Q8H PRN PRN (Reason: pain) Qty: 20 0RF No Action Nurtec ODT 75 mg tablet,disintegrating 75 mg PO ONCE PRN (Reason: migraine headache) Rx Instructions: as a single dose hydroxyzine HCl 50 mg tablet 50 mg PO TID meloxicam 15 mg tablet 15 mg PO QDAY atomoxetine 100 mg capsule 100 mg PO DAILY Qty: 30 2RF duloxetine 60 mg capsule,delayed release(DR/EC) 60 mg PO DAILY Qty: 30 2RF prazosin 1 mg capsule 1 mg PO QHS Qty: 30 2RF benzonatate 100 mg capsule 200 mg PO TID PRN (Reason: cough) Qty: 30 0RF ipratropium bromide 21 mcg (0.03 %) spray,non-aerosol 2 spray intranasal BID-TID PRN (Reason: postnasal drainage) Qty: 30 0RF Rx Instructions: administer into each nostril cariprazine 1.5 mg capsule 1.5 mg PO DAILY Qty: 30 2RF lorazepam 1 mg tablet 1 mg PO DAILY PRN (Reason: anxiety) Qty: 30 0RF valacyclovir 500 mg tablet 500 mg PO DAILY tramadol 50 mg tablet 50 mg PO Q6H PRN (Reason: pain) Qty: 14 0RF ibuprofen 400 mg tablet 400 mg PO Q8H PRN PRN (Reason: pain) amlodipine 5 mg tablet 5 mg PO DAILY Rx Instructions: take 1 tablet by mouth daily gabapentin 600 mg tablet 600 mg PO TID Qty: 90 0RF Primary Care Provider: Navi Kemp Referrals: Navi Kemp MD [Primary Care Provider] - 5-7 Days Print Language: Italian Disposition Disposition: Home, Self Care
--- OUTSIDE RECORDS SUMMARY | 2024-11-02 14:07 | XMS RPT_ITS | CCD ---
Author Organization [facility] Care Team Providers Care Organ Tuner Electronic Name Role Phone ROSA KEMP MD Primary Care Physician (08 03) Unavailable Primary Care Provider Dr. Rosa Perez Primary Care Provider [phone]) Dr. Rosa Kemp Referring Provider [phone] GIOVANI Anderson Attending Provider Dr. Lino Falcon Attending Provider [phone] GIOVANI Agudelo Attending Provider Ce SECOND CUTTER, SECOND CUTTER-C Woody Attending Provider [phone]) GIOVANI Bar Attending Provider UnavailDr. Rosa Young Primary Care Provider 1(33 0) Dr. Rosa Kemp Referring Provider [phone] Dr. Lino Falcon Attending Provider [phone] Dr. Rosa Kemp Primary Care Provider 1(33 0) Dr. Rosa Kemp Referring Provider [phone] Ce JIMENEZ, SECOND CUTTER-C Woody Attending Provider [phone]) GIOVANI Agudelo Attending Provider Dr. Rosa Kemp Primary Care Provider 1(33 0) Dr. Rosa Kemp Referring Provider [phone] Dr. Lino Falcon Attending Provider [phone] GIOVANI Bar Attending Provider Unavailab Suraj JIMENEZ, SECOND CUTTER-C Woody Attending Provider [phone]) GIOVANI Agudelo Attending Provider Dr. Rosa Kemp Primary Care Provider 1(33 0) Dr. Rosa Kemp Referring Provider [phone] Dr. Lino Falcon Attending Provider [phone] GIOVANI Gonzalez Attending Provider Unavailable Primary Care Provider Unavailabl Dr. Rosa Adame Primary Care Provider 1(33 0) Dr. Rosa Kemp Referring Provider [phone] Ce SECOND CUTTER, SECOND CUTTER-C Woody Attending Provider [phone]) GIOVANI Anderson Attending Provider [phone] Rosa Kemp Primary Care Provider 1(33 0) Dr. Rosa Kemp Referring Provider [phone] GIOVANI Gonzalez Attending Provider GIOVANI Anderson Attending Provider Ce SECOND CUTTER, SECOND CUTTER-C Woody Attending Provider [phone]) Dr. Lino Falcon Attending Provider [phone] Dr. Rosa Kemp Primary Care Provider 1(33 0) Dr. Rosa Kemp Referring Provider [phone] Rosa Kemp MD Primary Care Provider 1(3 30) Rosa Kemp MD Primary Care Provider 1(3 30) Rosa Kemp MD Primary Care Provider 1(3 30) ANNA MARIE PÉREZ Attending Unavailable LIS FREEDMAN Referring Unavailable OLEGHE, EFEWONGBE B Primary Care Unavailable ANNA MARIE PÉREZ Attending Unavailable SELF Referring Unavailable OLEGHE, EFEWONGBE B Primary Care Unavailable LIS FREEDMAN Attending Unavailable OLEGHE, EFEWONGBE B Primary Care Unavailable LIS FREEDMAN Referring Unavailable OLEGHE, EFEWONGBE B Primary Care Unavailable LIS FREEDMAN Referring Unavailable OLEGHE, EFEWONGBE B Primary Care Unavailable OLEGHE MD, EFEWONGBE B Primary Care Unavailab SHEYLA Holt Attending Unavailable COLLEEN CUNHA, SAM Segura Attending Unavail able ANA LAURA CUNHA, EFEWONGBE B Primary Care Unavailab VERNON Dumont Referring Unavailable OLEGHE, EFEWONGBE B Primary Care Unavailable OLEGHE, EFEWONGBE B Primary Care Unavailable OLEGHE, EFEWONGBE B Primary Care Unavailable PRATIMA KAT Attending Unavailable OLEGHE, EFEWONGBE B Primary Care Unavailable OLEGHE, EFEWONGBE B Primary Care Unavailable ANA LAURA CUNHA, EFEWONGBE B Primary Care Unavailab CHI Latham DO Attending Unavailable ANA LAURA CUNHA, EFEWONGBE B Primary Care Unavailab CHI Latham DO Attending Unavailable ANA LAURA CUNHA, EFEWONGBE B Primary Care Unavailab brittnee BONNER PA-C, CLAUDIA Arriola Attending Unavailable ANA LAURA CUNHA, EFEWONGBE B Primary Care Unavailab MYNOR Pineda MD Attending Unavailable ANA LAURA CUNHA, EFEWONGBE B Primary Care Unavailab JACOB Coombs DO Attending Unavailable Oleghe, Efewongbe Primary Care Unavailable Azael Gibbs Attending Unavailable Pratima Alvarado Attending Unavailable Oleghe, Efewongbe Primary Care Unavailable Oleghe, Efewongbe Primary Care Unavailable Azael Gibbs Attending Unavailable Oleghe, Efewongbe Primary Care Unavailable Pratima Alvarado Attending Unavailable Oleghe, Efewongbe Primary Care Unavailable John Terry Attending Unavailable John Terry Referring Unavailable Oleghe, Efewongbe Referring Unavailable Oleghe, Efewongbe Primary Care Unavailable Silvio Dyson Attending Unavailable Pratima Alvarado Attending Unavailable Oleghe, Efewongbe Primary Care Unavailable Oleghe, Efewongbe Referring Unavailable Oleghe, Efewongbe Primary Care Unavailable John Terry Attending Unavailable Oleghe, Efewongbe Primary Care Unavailable Azael Gibbs Attending Unavailable Oleghe, Efewongbe Referring Unavailable Oleghe, Efewongbe Primary Care Unavailable John Terry Attending Unavailable Oleghe, Efewongbe Primary Care Unavailable Azael Gibbs Attending Unavailable Oleghe, Efewongbe Referring Unavailable Oleghe, Efewongbe Primary Care Unavailable Friend, Goyo Attending Unavailable Oleghe, Efewongbe Primary Care Unavailable Oleghe, Efewongbe Referring Unavailable Chi Suarez Attending Unavailable Oleghe, Efewongbe Primary Care Unavailable Azael Gibbs Attending Unavailable Oleghe, Efewongbe Referring Unavailable Oleghe, Efewongbe Primary Care Unavailable Renny Anderson Attending Unavailable Oleghe, Efewongbe Primary Care Unavailable Azael Gibbs Attending Unavailable Oleghe, Efewongbe Primary Care Unavailable Azael Gibbs Attending Unavailable Oleghe, Efewongbe Primary Care Unavailable Azael Gibbs Attending Unavailable Oleghe, Efewongbe Referring Unavailable Oleghe, Efewongbe Attending Unavailable Oleghe, Efewongbe Primary Care Unavailable Oleghe, Efewongbe Referring Unavailable Renny Anderson Attending Unavailable Oleghe, Efewongbe Primary Care Unavailable Nette Diane Attending Unavailable Nette Diane Referring Unavailable Oleghe, Efewongbe Primary Care Unavailable Oleghe, Efewongbe Primary Care Unavailable Cristóbal Christiansen Attending Unavailable Oleghe, Efewongbe Primary Care Unavailable Cristóbal Christiansen Attending Unavailable Oleghe, Efewongbe Primary Care Unavailable Azael Gibbs Attending Unavailable Oleghe, Efewongbe Referring Unavailable Oleghe, Efewongbe Primary Care Unavailable Azael Gibbs Attending Unavailable Oleghe, Efewongbe Attending Unavailable Oleghe, Efewongbe Referring Unavailable Oleghe, Efewongbe Primary Care Unavailable Oleghe, Efewongbe Primary Care Unavailable John Terry Referring Unavailable John Terry Attending Unavailable Oleghe, Efewongbe Referring Unavailable Oleghe, Efewongbe Attending Unavailable Oleghe, Efewongbe Primary Care Unavailable Oleghe, Efewongbe Primary Care Unavailable Moomaw, Silvio Attending Unavailable Moomaw, Silvio Referring Unavailable Friend, Goyo Referring Unavailable Friend, Goyo Attending Unavailable Oleghe, Efewongbe Primary Care Unavailable Friend, Goyo Attending Unavailable Friend, Goyo Referring Unavailable Oleghe, Efewongbe Primary Care Unavailable Oleghe, Efewongbe Primary Care Unavailable Ungur, Remus Attending Unavailable Oleghe, Efewongbe Primary Care Unavailable Alvarez Bingham Attending Unavailable Ungur, Remus Attending Unavailable Ungur, Remus Referring Unavailable Oleghe, Efewongbe Primary Care Unavailable Oleghe, Efewongbe Primary Care Unavailable Faraz Santana Attending Unavailable Oleghe, Efewongbe Primary Care Unavailable Alvarez Bingham Attending Unavailable Flo Price Attending Unavailable Oleghe, Efewongbe Primary Care Unavailable Oleghe, Efewongbe Primary Care Unavailable Kaleb Molina Attending Unavailable Oleghe, Efewongbe Primary Care Unavailable Ungur, Remus Attending Unavailable Friend, Goyo Attending Unavailable Oleghe, Efewongbe Referring Unavailable Oleghe, Efewongbe Primary Care Unavailable Oleghe, Efewongbe Primary Care Unavailable Provider, Ed Physician Attending Unavailab le Oleghe, Efewongbe Primary Care Unavailable Chi Suarez Attending Unavailable Chi Suarez Referring Unavailable Friend, Goyo Attending Unavailable Oleghe, Efewongbe Primary Care Unavailable Oleghe, Efewongbe Referring Unavailable Friend, Goyo Attending Unavailable Friend, Goyo Referring Unavailable Oleghe, Efewongbe Primary Care Unavailable Oleghe, Efewongbe Primary Care Unavailable Renny Anderson Attending Unavailable Renny Anderson Referring Unavailable Allergies Allergy Classification Reported Allergen(s) Allergy Type Date of Onset Reaction(s) Facility (20 sources) Naproxen; Translations: [naproxen] Drug Allergy 5 Other: See Comments, Nausea (finding), Intolerance [facility] (20 sources) OTC skin products [Other] Propensity to adverse reactions 0 Other: See Comments [facility] (11 sources) Zinc Oxide Drug Allergy 2 Unknown [facility] (3 sources) otc skin products Propensity to adverse reactions 2 Unknown [facility] Work Phone: (2 sources) OTHER; Translations: [OTHER] Propensity to adverse reactions (disorder) 0 [facility] Other [facility] (1 source) Naproxen Drug Allergy 5 [facility] (1 source) Zinc Oxide Drug Allergy 5 [facility] Repository Medications Current Medications Medication Drug Class(es) Dates Sig (Normalized) Sig (Original) acetaminophen 500 mg oral tablet (20 sources) Start: 09-18-2022 Tylenol Extra Strength 500 mg oral tablet Dose : 1,000 mg = 2 tab(s), Oral, q6h, PRN as needed for pain, 0 Refill(s) Start Date: 09/18/22 Status: Ordered Start: 10-12-2021 End: 07-18-2022 take 500 mg by mouth every six hours Acetaminophen Discontinued 500 MG PO EVERY 6 HOURS 60 July 12, 2022 4:57pm July 18, 2022 5:13pm acetaminophen 325 mg / HYDROcodone bitartrate 5 mg oral tablet (6 sources) Opioid Agonist Start: 06-25-2021 End: 06-28-2021 take 1 tablet by mouth every six hours as needed for pain Gilbert 325- 5 mg oral tablet Dose = 1 tab(s), Oral, q6h, PRN as needed for pain, X 3 day(s), # 12 tab(s), 0 Refill(s), Back pain, 77.3 Start Date: 06/25/21 Stop Date: 06/28/21 Status: Ordered Start: 06-20-2014 End: 09-05-2022 HYDROcodone-acetaminophen (N ORCO) 5-325 mg per tablet acyclovir 400 mg oral tablet (15 sources) Herpesvirus Nucleoside Analog DNA Polymerase Inhibitor, Herpes Simplex Virus Nucleoside Analog DNA Polymerase Inhibitor, Herpes Zoster Virus Nucleoside Analog DNA Polymerase Inhibitor Start: 10-08-2019 acyclovir 400 mg oral tablet 0 Refill(s) Start Date: 10/08/19 Status: Ordered Repeat number: 1 aloe vera topical gel (6 sources) Start: 11-24-2021 apply 1 dose topically three times daily as needed for pain aloe vera topical gel Dose = 1 nat, Topical, TID, PRN Pain, # 240 gram(s), 0 Refill(s) Start Date: 11/24/21 Status: Ordered Amantadine (5 sources) Influenza A M2 Protein Inhibitor Start: 01-29-2022 AMANTADINE HCL HCL POW AMANTADINE HCL HCL POW, 0 Refill(s), 72.4 Start Date: 01/29/22 Status: Ordered amLODIPine 5 mg oral tablet (20 sources) Dihydropyridine Calcium Channel Jessica Start: 11-19-2023 amLODIPine 5 mg oral tablet Dose : 5 mg = 1 tab(s), Oral, qDay, # 30 tab(s), 0 Refill(s) Start Date: 11/19/23 Status: Ordered Quantity: 30.0 Unit: tab(s) Repeat number: 1 Start: 03-05-2023 take 1 tablet by mouth once am LODIPine (NORVASC) 5 mg tablet Take 1 tablet by mouth every afternoon. 03/05/2023 Active Comment on above: Take 1 tablet by jaki th every afternoon. amoxicillin 500 mg oral capsule (20 sources) Penicillin-class Antibacterial Start: 06-05-2023 amoxicillin (AMOXIL) 500 mg capsule 06/05/2023 Active Start: 09-14-2021 End: 09-24-2021 take 1000 mg by mouth twice daily Amoxicillin Discontinued 1000 MG PO TWICE A DAY 40 September 14, 2021 12:00am September 24, 2021 12:05am amoxicillin 875 mg / clavulanate 125 mg oral tablet (16 sources) Penicillin-class Antibacterial Start: 07-18-2022 take 1 tablet by mouth twice daily Amoxicillin-Pot Clavulanate Active 1 TABLET PO TWICE A DAY July 18, 2022 12:00am Start: 05-09-2022 End: 05-18-2022 take 1 tablet by mouth every twelve hours Amoxicillin-Pot Clavulanate Discontinued 1 TABLET PO Q12H 23 02May 09, 2022 1:00am May 18, 2022 11:22am Start: 07-01-2020 End: 10-13-2020 take 1 tablet by mouth twice daily Amoxicillin-Pot Clavulanate (Augmentin) 875-125 mg tablet Discontinued 1 TABLET PO TWICE A DAY July 01, 2020 1:00am October 13, 2020 11:47am atomoxetine 80 mg oral capsule (13 sources) Norepinephrine Reuptake Inhibitor Start: 11-19-2023 atomoxetine 80 mg oral capsule Dose : 80 mg = 1 cap(s), Oral, qAM, 0 Refill(s) Start Date: 11/19/23 Status: Ordered Repeat number: 1 Start: 08-15-2023 atomoxetine (S TRATTERA) 40 mg capsule 08/15/2023 Active Blood Pressure Monitor (20 sources) Start: 10-29-2019 Blood Pressure Monitor Active 0 .ROUTE .MEDSUPPLY 1 October 29, 2019 4:00pm Check blood pressure daily for hypertension I10 Start: 10-29-2019 Blood Pressure Monitor Active 0 .ROUTE .MEDSUPPLY 1 October 29, 2019 5:00pm Check blood pressure daily for hypertension I10 Start: 10-15-2019 End: 10-29-2019 Blood Pressure Monitor Disco ntinued 0 .ROUTE .MEDSUPPLY 1 October 14, 2019 11:00pm October 29, 2019 4:01pm Check blood pressure daily for hypertension I10 Start: 10-15-2019 End: 10-29-2019 Blood Pressure Monitor Disco ntinued 0 .ROUTE .MEDSUPPLY 1 October 15, 2019 12:00am October 29, 2019 5:01pm Check blood pressure daily for hypertension I10 60 actuat budesonide 0.16 mg/actuat / formoterol fumarate 0.0045 mg/actuat metered dose inhaler (20 sources) Corticosteroid, beta2-Adrenergic Agonist Start: 02-16-2021 SYMBICORT 160-4 .5 mcg/actuation inhaler 02/16/2021 Active Start: 12-16-2020 take 1 puff(s) by in halation twice daily Budesonide-Formoterol (Symbicort) 160-4.5 mcg/actuation HFA aerosol inhaler Active 2 PUFF INHALATION TWICE A DAY 10.2 December 16, 2020 11:11am Start: 06-24-2020 End: 12-16-2020 take 1 puff(s) by inhalation twice daily Budesonide-Formoterol (Symbicort) 160-4.5 mcg/actuation HFA aerosol inhaler Discontinued 2 PUFF INHALATION TWICE A DAY 10.2 June 24, 2020 1:17pm December 16, 2020 10:11am Start: 06-24-2020 End: 12-16-2020 take 1 puff(s) by inhalation twice daily Budesonide-Formoterol (Symbicort) 160-4.5 mcg/actuation HFA aerosol inhaler Discontinued 2 PUFF INHALATION TWICE A DAY 10.2 June 24, 2020 2:17pm December 16, 2020 11:11am Start: 01-29-2019 End: 06-24-2020 take 1 puff(s) by inhalation twice daily Budesonide-Formoterol (Symbicort) 160-4.5 mcg/actuation HFA aerosol inhaler Discontinued 2 PUFF INHALATION TWICE A DAY 10.2 January 29, 2019 12:00am June 24, 2020 2:17pm 12 hr buPROPion hydrochloride 150 mg extended release oral tablet (20 sources) Aminoketone Start: 07-05-2022 take 1 tablet by mouth once daily in the morning Bupropion Hcl (Wellbutrin Sr) 150 mg tablet sustained-release 12 hr Active 150 MG PO EVERY MORNING July 05, 2022 1:00am Start: 05-11-2022 take 1 tablet by jaki th once daily buPROPion SR (WELLBUTRIN SR) 100 mg 12 hr tablet Take 100 mg by mouth once daily. 05/11/2022 Active Start: 03-25-2020 End: 12-20-2021 take 1 tablet by mouth once daily in the morning Bupropion Hcl (Wellbutrin Xl) 150 mg tablet extended release 24 hr Discontinued 150 MG PO EVERY MORNING March 25, 2020 1:00am December 20, 2021 8:33am Start: 12-11-2019 End: 09-05-2022 buPROPion XL (WELLBUTRIN XL) 300 mg 24 hr tablet Start: 10-15-2019 End: 02-13-2020 Bupropion Hcl Discontinued M G PO October 15, 2019 12:00am February 13, 2020 3:34pm Start: 10-08-2019 buPROPion 150 mg/24 hours (XL) oral tablet, extended release 0 Refill(s) Start Date: 10/08/19 Status: Ordered Repeat number: 1 Start: 10-08-2019 buPROPion 150 mg/24 hours (XL) oral tablet, extended release 0 Refill(s) Start Date: 10/08/19 Status: Ordered Comment on above: Take 100 mg by mouth once daily. cariprazine 3 mg oral capsule (20 sources) Atypical Antipsychotic Start: 11-19-2023 Vraylar 3 mg oral capsule Dose : 3 mg = 1 cap(s), Oral, qDay, 0 Refill(s) Start Date: 11/19/23 Status: Ordered Repeat number: 1 Start: 11-20-2021 Vraylar 3 mg o ral capsule 0 Refill(s) Start Date: 11/20/21 Status: Ordered Start: 03-25-2020 End: 07-05-2022 take 3 mg by mouth once daily Cariprazine Discontinued 3 MG PO DAILY March 25, 2020 11:52am July 05, 2022 4:39pm Start: 02-13-2020 End: 03-25-2020 Cariprazine Discontinued MG PO February 13, 2020 12:00am March 25, 2020 11:54am take 3.5 mg by mouth once daily cariprazine (VRAYLAR) 1.5 mg capsule Take 3.5 mg by mouth once daily. Active Comment on above: Take 3.5 mg by mouth once daily. cephalexin 500 mg oral capsule (1 source) Cephalosporin Antibacterial Start: 11-19-2023 End: 11-26-2023 cephalexin 500 mg oral capsule Dose : 500 mg = 1 cap(s), Oral, BID, X 7 day(s), # 14 cap(s), 0 Refill(s), 11/26/23 5:01:00 PM EDT, 89.4 Start Date: 11/19/23 Stop Date: 11/26/23 Status: Ordered Condoms Latex Lubricated (CONDOMS-NATALIE LUBRICATED) Misc Chanda (20 sources) Start: 04-04-2011 Condoms Latex Lubricated (CONDOMS-NATALIE LUBRICATED) Misc Chanda Indications: Contraception Use one condom before and during every act of intercourse 12 Device 1 04/04/2011 Active Comment on above: Use one condom befor e and during every act of intercourse cyclobenzaprine hydrochloride 10 mg oral tablet (20 sources) Muscle Relaxant Start: 12-07-2021 End: 12-14-2021 cyclobenzaprine 10 mg oral tablet Dose : 10 mg = 1 tab(s), Oral, TID, PRN As needed for muscle pain and spasm, X 7 day(s), # 21 tab(s), 0 Refill(s), 12/14/21 18:19:00 EDT, Low back pain with left sciatica Start Date: 12/07/21 Stop Date: 12/14/21 Status: Ordered Start: 01-18-2021 End: 03-30-2021 take 5-10 mg by mouth three times daily Cyclobenzaprine Discontinued 5 - 10 MG PO THREE TIMES A DAY January 18, 2021 12:00am March 30, 2021 6:01pm Start: 11-05-2020 End: 01-18-2021 take 10 mg by mouth every twelve hours Cyclobenzaprine Discontinued 10 MG PO Q12H November 05, 2020 12:00am January 18, 2021 8:03am doxycycline hyclate 100 mg oral capsule (12 sources) Tetracycline-class Drug Start: 11-20-2021 End: 11-30-2021 doxycycline hyclate 100 mg oral capsule Dose : 100 mg = 1 cap(s), Oral, BID, X 10 day(s), # 20 cap(s), 0 Refill(s), 11/30/21 10:10:00 EDT, Cellulitis, 75 Start Date: 11/20/21 Stop Date: 11/30/21 Status: Ordered Start: 01-27-2021 End: 03-30-2021 take 100 mg by mouth twice daily Doxycycline Monohydrate Discontinued 100 MG PO TWICE A DAY January 27, 2021 12:00am March 30, 2021 11:01am FLUoxetine 40 mg oral capsule (20 sources) Serotonin Reuptake Inhibitor Start: 11-19-2023 FLUoxetine 40 mg ora l capsule 0 Refill(s) Start Date: 11/19/23 Status: Ordered Repeat number: 1 Start: 10-12-2021 FLUoxetine HCl 20 mg tablet Take 20 mg by mouth. 10/12/2021 Active Start: 10-12-2021 take 40 mg by mouth once daily Fluoxetine Active 40 MG PO DAILY October 12, 2021 12:00am Comment on above: Take 20 mg by mouth. gabapentin 400 mg oral capsule (20 sources) Anti-epileptic Agent Start: 11-19-2023 gabapentin 400 mg oral capsule 0 Refill(s), 89.4 Start Date: 11/19/23 Status: Ordered Repeat number: 1 Start: 01-20-2022 End: 07-25-2022 take 1 capsule by mouth every eight hours Gabapentin Active 0 .ROUTE .COMPLEX 90 July 25, 2022 11:47am take 1 capsule by mouth every 8 hours Start: 01-07-2021 End: 01-20-2022 gabapentin (NEURONTIN) 300 m g capsule 02/08/2021 Active Start: 11-18-2020 End: 01-07-2021 take 100 mg by mouth every eight hours Gabapentin Discontinued 100 MG PO Q8H 90 December 05, 2020 4:59pm January 07, 2021 3:55pm glecaprevir 100 mg / pibrent asvir 40 mg oral tablet (16 sources) Start: 05-04-2023 MAVYRET 100-40 mg tablet 05/04/2023 Active Start: 05-04-2023 take 3 tablets by mo uth once daily at mealtime MAVYRET 100-40 mg tablet TAKE 3 TABLETS BY MOUTH EVERY DAY WITH FOOD 0 05/04/2023 Active Comment on above: TAKE 3 TABLETS BY MO UTH EVERY DAY WITH FOOD hydrOXYzine pamoate 25 mg oral capsule (9 sources) Antihistamine Start: 4 hydrOXYzine pamoate 25 mg oral capsule 0 Refill(s) Start Date: 11/19/23 Status: Ordered Repeat number: 1 ibuprofen 800 mg oral tablet (20 sources) Nonsteroidal Anti-inflammatory Drug Start: 3 take 1 dose by mouth every eight hours Motrin Dose : 800 mg =, Oral, q8h, 0 Refill(s) Start Date: 09/18/22 Status: Ordered Start: 10-12-2021 End: 07-12-2022 take 800 mg by mouth every eight hours Ibuprofen Discontinued 800 MG PO Q8H 60 February 10, 2022 10:17am July 12, 2022 4:58pm Start: 11-05-2020 End: 11-18-2020 take 600 mg by mouth four times daily Ibuprofen Discontinued 600 MG PO 4 TIMES DAILY November 05, 2020 12:00am November 18, 2020 9:50am lamoTRIgine 25 mg oral tablet (20 sources) Mood Stabilizer, Anti-epileptic Agent Start: 03-25-2020 take 1 tablet by mouth once daily Lamotrigine (Lamictal) 25 mg tablet Active 25 MG PO DAILY March 25, 2020 1:00am Start: 10-08-2019 End: 09-05-2022 lamoTRIgine 150 mg oral tabl et 0 Refill(s) Start Date: 10/08/19 Status: Ordered Repeat number: 1 Start: 08-21-2019 End: 02-13-2020 take 200 mg by mouth once daily Lamotrigine Discontinued 200 MG PO DAILY August 21, 2019 12:00am February 13, 2020 3:35pm Start: 05-06-2019 lamoTRIgine 10 0 mg oral tablet 0 Refill(s) Start Date: 05/06/19 Status: Ordered Repeat number: 1 lidocaine 0.05 mg/mg medicated patch (20 sources) Antiarrhythmic, Amide Local Anesthetic Start: 12-09-2021 apply 1 dose topically once daily Lidocaine Active 2 PATCH TOPICAL DAILY 60 December 09, 2021 4:33pm leave on most painful area for up to 12 hrs Start: 08-07-2019 End: 02-13-2020 Lidocaine Discontinued 1 NAT LIC TOPICAL TWICE A DAY August 07, 2019 12:00am February 13, 2020 3:34pm Start: 07-25-2019 End: 08-07-2019 apply 1 dose topically once daily Lidocaine Discontinued 1 PATCH TOPICAL DAILY July 25, 2019 12:00am August 07, 2019 3:08pm may leave on for up to 12 hrs Start: 07-22-2019 End: 08-07-2019 apply 1 dose topically once daily Lidocaine Discontinued 2 PATCH TOPICAL DAILY 60 July 22, 2019 12:00am August 07, 2019 3:08pm leave on most painful area for up to 12 hrs LORazepam 0.5 mg oral tablet (9 sources) Benzodiazepine Start: 11-19-2023 LORazepam 0.5 mg oral tablet 0 Refill(s), 89.4 Start Date: 11/19/23 Status: Ordered Repeat number: 1 Start: 11-19-2023 LORazepam (ATI VAN) 0.5 mg 0 Refill(s), 89.4 11/19/2023 Active Magic Mouth Wash (Bmx) (1 source) Start: 07-26-2022 Magic Mouth Wa sh (Bmx) Active 10 ML BUCCAL .qid 180 July 26, 2022 12:00am diphenhydramine 12.5 mg/5 mL oral liquid 60 mL; aluminum-mag hydroxide-simethicone 400 mg-400 mg-40 mg/5 mL oral susp 60 mL; Lidocaine Viscous 2 % mucosal solution 60 mL; Per 180 mL 1 ml medroxyPROGESTERone acetate 150 mg/ml prefilled syringe (20 sources) Progestin Start: 02-14-2024 End: 01-15-2025 medroxyPROGESTERone 150 mg injection (DEPO-PROVERA) Start: 11-22-2023 End: 11-22-2023 medroxyPROGESTERone 150 mg i njection (DEPO-PROVERA) Start: 11-22-2023 End: 11-22-2023 medroxyPROGESTERone 150 mg i njection (DEPO-PROVERA) Start: 09-05-2022 End: 11-08-2023 medroxyPROGESTERone 150 mg i njection (DEPO-PROVERA) Start: 08-23-2021 End: 07-25-2022 medroxyPROGESTERone 150 mg i njection (DEPO-PROVERA) Start: 07-21-2021 End: 05-30-2024 medroxyPROGESTERone (DEPO-CO OVERA) 150 mg/mL Inject 1 mL intramuscularly every 12 weeks. 1 mL 2 05/30/2024 Active Comment on above: INJECT 1ML INTRAMUSC ULARLY EVERY 12 WEEKS Inject 1 mL intramus cularly every 12 weeks. methocarbamol 500 mg oral tablet (20 sources) Muscle Relaxant Start: 12-09-2021 End: 07-05-2022 methocarbamol (ROBAXIN) 500 mg tablet Take by mouth. 12/09/2021 Active Comment on above: Take by mouth. nabumetone 750 mg oral tablet (20 sources) Nonsteroidal Anti-inflammatory Drug Start: 11-18-2020 End: 10-12-2021 nabumetone (RELAFEN) 750 mg tablet 03/08/2021 Active ondansetron 4 mg oral tablet (20 sources) Serotonin-3 Receptor Antagonist Start: 06-10-2022 End: 06-15-2022 Zofran 4 mg oral tablet Dose : 4 mg = 1 tab(s), Oral, q6h, PRN Nausea/Vomiting, X 5 day(s), # 20 tab(s), 0 Refill(s), 06/15/22 2:59:00 EST, Vomiting Start Date: 06/10/22 Stop Date: 06/15/22 Status: Ordered Start: 06-10-2022 take 8 mg by mouth e very eight hours as needed Ondansetron Active 8 MG PO EVERY 8 HOURS NEEDED June 10, 2022 1:00am Start: 03-17-2022 End: 07-05-2022 take 4 mg by mouth every eight hours Ondansetron Discontinued 4 MG PO Q8H April 21, 2022 1:00am July 05, 2022 4:41pm Start: 05-30-2021 End: 07-22-2021 take 4 mg by mouth every six hours as needed Ondansetron Discontinued 4 MG PO EVERY 6 HOURS NEEDED May 30, 2021 4:01pm July 22, 2021 11:41am Start: 10-13-2020 End: 07-22-2021 take 1 tablet by mouth every eight hours Ondansetron Hcl (Zofran) 4 mg tablet Discontinued 4 MG PO Q8H October 13, 2020 12:00am July 22, 2021 11:41am phenazopyridine hydrochloride 100 mg oral tablet (20 sources) Start: 09-05-2022 take 1 tablet by mouth every eight hours as needed phenazopyridine (PYRIDIUM) 100 mg tablet Take 1 tablet by mouth three times daily as needed. 15 tablet 09/05/2022 Active Start: 03-21-2022 End: 05-18-2022 take 1 tablet by mouth every eight hours Phenazopyridine (Pyridium) 200 mg tablet Discontinued 200 MG PO Q8H March 21, 2022 1:00am May 18, 2022 11:23am Start: 08-27-2019 End: 02-13-2020 take 1 tablet by mouth three times daily Phenazopyridine (Pyridium) 100 mg tablet Discontinued 100 MG PO THREE TIMES A DAY 6 August 27, 2019 12:00am February 13, 2020 3:35pm Comment on above: Take 1 tablet by jaki three times daily as needed. rimegepant 75 mg disintegrating oral tablet (20 sources) Start: 02-22-2023 NURTEC ODT 75 mg disintegrating tablet 02/22/2023 Active Start: 05-18-2022 End: 07-31-2022 Rimegepant (Nurtec Odt) 75 m g tablet,disintegrating Active 0 .ROUTE .COMPLEX July 31, 2022 11:03am DISSOLVE 1 TABLET ON TOP OF TONGUE AND SWALLOW NEEDED FOR MIGRAINE HEADACHE risperiDONE 2 mg oral tablet (20 sources) Atypical Antipsychotic Start: 05-06-2019 End: 09-05-2022 risperiDONE 2 mg oral tablet 0 Refill(s) Start Date: 05/06/19 Status: Ordered Repeat number: 1 Start: 01-29-2019 End: 02-13-2020 take 2 mg by mouth at bedtime Risperidone Discontinued 2 MG PO AT BEDTIME January 29, 2019 12:00am February 13, 2020 3:36pm Comment on above: 0 Refill(s) sulfamethoxazole 800 mg / trimethoprim 160 mg oral tablet (8 sources) Dihydrofolate Reductase Inhibitor Antibacterial, Sulfonamide Antimicrobial Start: 3 End: take 1 tablet by mouth twice daily sulfamethoxazo le-trimethopri m (BACTRIM DS) 800-160 mg per tablet Take 1 tablet by mouth twice daily for 7 days. 14 tablet 0 09/05/2022 09/12/2022 Active Start: 03-20-2022 End: 05-18-2022 take 1 tablet by mouth twice daily Sulfamethoxazole-Trimethoprim (Bactrim D s) 800-160 mg tablet Discontinued 1 TABLET PO TWICE A DAY March 20, 2022 1:00am May 18, 2022 11:23am Start: 03-17-2022 take 1 tablet by jaki th twice daily Sulfamethoxazole-Trimethoprim (Bactrim D s) 800-160 mg tablet Active 1 TABLET PO TWICE A DAY March 17, 2022 12:00am Comment on above: Take 1 tablet by jaki th twice daily for 7 days. SUMAtriptan 25 mg oral tablet (20 sources) Serotonin-1b and Serotonin-1d Receptor Agonist Start: 10-08-2019 End: 09-05-2022 SUMAtriptan 25 mg oral tablet 0 Refill(s) Start Date: 10/08/19 Status: Ordered Repeat number: 1 Start: 06-17-2019 End: 11-09-2021 take 1 tablet by mouth once daily Sumatriptan Succinate Discontinued 0 PO .COMPLEX August 08, 2019 2:01pm August 21, 2019 11:04am take 1 tab at onset of headache; if no relief may repeat 1 tab in 2hr; max = 4 tabs/day (24hr) PO Comment on above: Take 25 mg by mouth as needed. traZODone hydrochloride 50 mg oral tablet (20 sources) Serotonin Reuptake Inhibitor Start: 03-25-2020 traZODone (DESYREL) 50 mg tablet Take 50 mg by mouth. 03/25/2020 Active Comment on above: Take 50 mg by mouth. Completed/Discontinued Medications Medication Drug Class(es) Dates Sig (Normalized) Sig (Original) acetaminophen 325 mg / oxyCODONE hydrochloride 5 mg oral tablet (11 sources) Opioid Agonist Start: 08-22-2019 End: 08-29-2019 take 1 tablet by mouth every six hours Oxycodone-Acetamin ophen Discontinued 1 - 2 TABLET PO EVERY 6 HOURS 40 7 August 22, 2019 August 29, 2019 12:02am [id number] 200 actuat albuterol 0.09 mg/actuat metered dose inhaler (20 sources) beta2-Adrenergic Agonist Start: 01-29-2019 End: 08-24-2021 take 1 puff(s) by inhalation every six hours Albuterol Sulfate (Proair Hfa) 90 mcg/actuation HFA aerosol inhaler Discontinued 1 - 2 PUFF INHALATION EVERY 6 HOURS 8.5 November 05, 2020 12:52pm June 22, 2021 4:09pm ALBUTEROL INHALA TION Inhale as instructed. Active ALBUTEROL INHALA TION Inhale as instructed. 0 Active Comment on above: Inhale as instructed . amitriptyline hydrochloride 25 mg oral tablet (5 sources) Tricyclic Antidepressant End: 09-06-19 23 amitriptyline (ELAVIL) 25 mg tablet Take 25 mg by mouth as needed. 0 09/05/2022 Discontinued Comment on above: Take 25 mg by mouth as needed. baclofen 10 mg oral tablet (20 sources) gamma-Aminobutyric Acid-ergic Agonist Start: 03-30-20 21 End: 12-10-19 22 take 10 mg by mouth twice daily Baclofen Discontinued 10 MG PO TWICE A DAY September 14, 2021 1:16pm December 09, 2021 4:16pm benzonatate 200 mg oral capsule (19 sources) Non-narcotic Antitussive Start: 02-17-20 22 End: 05-18-19 23 take 200 mg by mouth three times daily Benzonatate Discontinued 200 MG PO THREE TIMES A DAY February 16, 2022 12:00am May 18, 2022 11:22am Start: 09-09-2021 End: 10-12-2021 take 200 mg by mouth three times daily Benzonatate Discontinued 200 MG PO THREE TIMES A DAY September 09, 2021 12:00am October 12, 2021 8:52am celecoxib 200 mg oral capsule (20 sources) Nonsteroidal Anti-inflammatory Drug Start: 03-22-2020 End: 08-23-2020 take 1 capsule by mouth once daily Celecoxib (Celebrex) 200 mg capsule Discontinued 200 MG PO DAILY July 01, 2020 10:51am August 23, 2020 4:32pm Do not use in conjunction with other NSAIDs. Tylenol is okay clindamycin 300 mg oral capsule (1 source) Lincosamide Antibacterial Start: 07-26-2022 End: 08-02-2022 take 300 mg by mouth three times daily Clindamycin Hcl Discontinued 300 MG PO THREE TIMES A DAY 24 11July 26, 2022 12:00am August 02, 2022 12:04am diphenhydrAMINE hydrochloride 50 mg oral capsule (20 sources) Histamine-1 Receptor Antagonist Start: 01-23-2021 End: 01-28-2021 diphenhydrAMINE 50 mg oral capsule Dose : 50 mg = 1 cap(s), Oral, q6h, # 20 cap(s), 0 Refill(s) Start Date: 01/23/21 Stop Date: 01/28/21 Status: Ordered Start: 11-27-2019 take 1 dose by mouth once [place] dryl Dose : 50 mg =, Oral, Once, 0 Refill(s) Start Date: 11/27/19 Status: Ordered famotidine 20 mg oral tablet (15 sources) Histamine-2 Receptor Antagonist Start: 01-23-2021 End: 01-30-2021 Pepcid 20 mg oral tablet Dose : 20 mg = 1 tab(s), Oral, BID, # 14 tab(s), 0 Refill(s) Start Date: 01/23/21 Stop Date: 01/30/21 Status: Ordered Quantity: 14.0 Unit: tab(s) Repeat number: 1 fluconazole 150 mg oral tablet (5 sources) Azole Antifungal Start: 03-24-2022 End: 05-18-2022 Fluconazole Discontinued 150 MG PO Q3D March 24, 2022 1:00am May 18, 2022 11:22am may repeat second dose 72 hrs after first dose if symptoms persist loratadine 10 mg oral capsule (20 sources) Start: 08-21-2019 End: 04-10-2022 take 10 mg by mouth once daily Loratadine Discontinued 10 MG PO DAILY February 17, 2020 9:53am April 10, 2022 3:21pm Start: 08-16-2019 loratadine 10 mg oral tablet 0 Refill(s) Start Date: 08/16/19 Status: Ordered meloxicam 15 mg oral tablet (11 sources) Nonsteroidal Anti-inflammatory Drug Start: 02-13-2020 End: 03-25-2020 take 7.5-15 mg by mouth once daily Meloxicam Discontinued 7.5 - 15 MG PO DAILY February 13, 2020 12:00am March 25, 2020 11:52am methylPREDNISolone 4 mg oral tablet (11 sources) Corticosteroid Start: 01-18-2021 End: 01-31-2021 take 1 tablet by mouth once Methylprednisolone (Medrol (Eladio)) 4 mg tablets,dose pack Discontinued 0 PO per package directions January 18, 2021 12:00am January 31, 2021 3:53pm PO PER PKG DIR nitrofurantoin, macrocrystals 100 mg oral capsule (7 sources) Nitrofuran Antibacterial Start: 03-17-2022 End: 05-18-2022 take 100 mg by mouth twice daily at mealtime Nitrofurantoin Macrocrystal Discontinued 100 MG PO TWICE A DAY 02 08March 17, 2022 1:00am May 18, 2022 11:23am must administer with a meal/food nitrofurantoin, macrocrystals 25 mg / nitrofurantoin, monohydrate 75 mg oral capsule (11 sources) Nitrofuran Antibacterial Start: 08-27-2019 End: 09-01-2019 take 1 capsule by mouth every twelve hours at mealtime Nitrofurantoin Monohyd/M-Cryst (Macrobid) 100 mg capsule Discontinued 100 MG PO Q12H 02 08August 27, 2019 12:00am September 01, 2019 12:02am must administer with a meal/food omeprazole 40 mg delayed release oral capsule (20 sources) Proton Pump Inhibitor Start: 07-22-2021 End: 08-16-2022 take 40 mg by mouth once daily Omeprazole Discontinued 40 MG PO DAILY July 22, 2021 11:41am December 20, 2021 8:35am Start: 10-13-2020 End: 07-22-2021 take 40 mg by mouth twice daily Omeprazole Discontinued 40 MG PO TWICE A DAY 60 November 05, 2020 12:51pm July 22, 2021 11:41am Start: 06-17-2019 End: 07-22-2019 take 40 mg by mouth once daily Omeprazole Discontinued 40 MG PO DAILY June 17, 2019 11:41am July 22, 2019 10:45am Start: 05-13-2019 End: 06-17-2019 take 20 mg by mouth once daily Omeprazole Discontinued 20 MG PO DAILY May 13, 2019 1:00am June 17, 2019 11:43am oseltamivir 75 mg oral capsule (5 sources) Neuraminidase Inhibitor Start: 04-07-2022 End: 04-12-2022 take 1 capsule by mouth every twelve hours Oseltamivir (Tamiflu) 75 mg capsule Discontinued 75 MG PO Q12H 10 April 07, 2022 1:00am April 12, 2022 1:08am OXcarbazepine 300 mg oral tablet (20 sources) Anti-epileptic Agent Start: 11-05-2020 End: 03-30-2021 take 300 mg by mouth twice daily Oxcarbazepine Discontinued 300 MG PO TWICE A DAY November 05, 2020 12:00am March 30, 2021 11:02am Start: 09-05-2019 Trileptal Oral , BID, 0 Refill(s) Start Date: 09/05/19 Status: Ordered Start: 09-05-2019 End: 09-05-2022 oxcarbazepine (TRILEPTAL ORA L) Oral, BID, 0 Refill(s) 0 09/05/2019 09/05/2022 Discontinued Start: 09-05-2019 oxcarbazepine (TRILEPTAL ORAL) Oral, BID, 0 Refill(s) 0 09/05/2019 Active Start: 08-21-2019 End: 02-13-2020 OXcarbazepine 600 mg oral ta blet 0 Refill(s) Start Date: 10/08/19 Status: Ordered Repeat number: 1 Comment on above: Oral, BID, 0 Refill(s) pantoprazole 40 mg delayed release oral tablet (20 sources) Proton Pump Inhibitor Start: 07-22-2019 End: 09-05-[address] (PROTONIX) 40 mg tablet Start: 07-02-2019 End: 07-22-2019 take 40 mg by mouth twice daily Pantoprazole Discontinued 40 MG PO TWICE A DAY 60 July 08, 2019 2:18pm July 22, 2019 10:53am prazosin 1 mg oral capsule (16 sources) alpha-Adrenergic Jessica Start: 12-11-2019 End: 09-05-2022 prazosin (MINIPRESS) 1 mg cap predniSONE 20 mg oral tablet (20 sources) Start: 07-01-2020 End: 10-13-2020 take 40 mg by mouth once daily at mealtime Prednisone Discontinued 40 MG PO daily July 01, 2020 1:00am October 13, 2020 11:47am administer with food or milk Start: 11-27-2019 End: 12-14-2021 predniSONE 20 mg oral tablet Dose : 20 mg = 1 tab(s), Oral, Daily, # 4 tab(s), 0 Refill(s), Bee sting Start Date: 11/27/19 Status: Ordered sucralfate 1000 mg oral tablet (20 sources) Aluminum Complex Start: 08-21-2019 End: 12-26-2019 take 1 g by mouth four times daily Sucralfate Discontinued 1 GM PO 4 TIMES DAILY August 21, 2019 12:00am December 26, 2019 1:59pm Start: 07-02-2019 End: 08-07-2019 take 1 g by mouth three times daily Sucralfate Discontinued 1 GM PO THREE TIMES A DAY July 02, 2019 1:00am August 07, 2019 3:26pm traMADol hydrochloride 50 mg oral tablet (20 sources) Opioid Agonist Start: 10-08-2019 End: 12-13-2019 traMADol 50 mg oral tablet Dose : 50 mg = 1 tab(s), Oral, q12h, PRN for pain, # 12 tab(s), 0 Refill(s), Migraine, 77 Start Date: 12/10/19 Stop Date: 12/13/19 Status: Ordered Start: 09-21-2019 End: 09-24-2019 Ultram 50 mg oral tablet Dos e : 50 mg = 1 tab(s), Oral, q6h, PRN for pain, # 12 tab(s), 0 Refill(s), Scar History of cholecystectomy, 84.1 Start Date: 09/21/19 Stop Date: 09/24/19 Status: Ordered valACYclovir 500 mg oral tablet (20 sources) Herpesvirus Nucleoside Analog DNA Polymerase Inhibitor, Herpes Simplex Virus Nucleoside Analog DNA Polymerase Inhibitor, Herpes Zoster Virus Nucleoside Analog DNA Polymerase Inhibitor Start: 11-20-2021 End: 05-30-2024 valACYclovir 500 mg oral tablet Dose : 500 mg = 1 tab(s), Oral, qDay, 0 Refill(s), 75 Start Date: 11/20/21 Status: Ordered Repeat number: 1 Start: 08-24-2020 End: 09-06-2021 valACYclovir 500 mg oral tab let 0 Refill(s), 75 Start Date: 11/20/21 Status: Ordered Comment on above: Take 1 tablet by jaki th once daily. Problems Active Problems Problem Classification Problem Date Documented Da te Episodic/Chronic Abdominal pain (13 sources) Abdominal pain; Translations: [Unspecified abdominal pain] 03-28-2022 Episodic Acute bronchitis (1 source) Acute bronchitis, unspecified; Translations: [Acute bronchitis, unspecified] Onset: 5 Episodic Anxiety disorders (4 sources) Panic disorder without agoraphobia; Translations: [Panic disorder [episodic paroxysmal anxiety]] Onset: 4 Chronic Asthma (16 sources) Asthma; Translations: [Unspecified asthma, uncomplicated] Onset: 4 01-29-2019 Chronic Attention-deficit, conduct, and disruptive behavior disorders (1 source) Attention-deficit hyperactivity disorder, unspecified type; Translations: [Attention-deficit hyperactivity disorder, unspecified type] Onset: 5 Chronic Bacterial infection; unspecified site (11 sources) Tetanus; Translations: [Other tetanus] 05-02-2018 Episodic Biliary tract disease (11 sources) Cholecystitis; Translations: [Cholecystitis, unspecified] 10-15-2019 Episodic Conditions associated with dizziness or vertigo (20 sources) Dizziness; Translations: [Dizziness and giddiness] Onset: 2 05-29-2011 Episodic Diseases of mouth; excluding dental (1 source) Lesion of oral mucosa; Translations: [Other lesions of oral mucosa] Onset: 3 Episodic Disorders of teeth and jaw (8 sources) Painful mouth; Translations: [Disorder of teeth and supporting structures, unspecified] 07-20-2022 Episodic Esophageal disorders (11 sources) Gastroesophageal reflux disease; Translations: [Gastro-esophageal reflux disease without esophagitis] 10-13-2020 Chronic Essential hypertension (1 source) Essential (primary) hypertension; Translations: [Essential (primary) hypertension] Onset: 5 Chronic Fever of unknown origin (11 sources) Fever; Translations: [Fever, unspecified] 10-02-2018 Episodic Fluid and electrolyte disorders (8 sources) Hypokalemia, gastrointestinal losses; Translations: [Hypokalemia] 06-10-2022 Episodic Headache; including migraine (20 sources) Migraine; Translations: [Migraine, unspecified, not intractable, without status migrainosus] Onset: 4 06-22-2021 Chronic Headache; including migraine (8 sources) Headache; Translations: [Headache] 03-09-2022 Episodic Immunizations and screening for infectious disease (20 sources) Requires vaccination; Translations: [Encounter for immunization] Episodic Influenza (9 sources) Influenza due to Influenza A virus; Translations: [Influenza due to other identified influenza virus with other respiratory manifestations] Episodic Intestinal infection (3 sources) Viral gastroenteritis; Translations: [Viral intestinal infection, unspecified] 06-10-2022 Episodic Menstrual disorders (20 sources) Excessive and frequent menstruation; Translations: [Excessive and frequent menstruation with regular cycle] Onset: 2 05-29-2011 Chronic Mood disorders (20 sources) Bipolar disorder; Translations: [Bipolar disorder, unspecified] Onset: 4 Chronic Mood disorders (1 source) Mood disorders; Translations: [Depression, unspecified] Onset: 5 Nausea and vomiting (16 sources) Nausea; Translations: [Nausea] Onset: 3 03-09-2022 Episodic Noninfectious gastroenteritis (11 sources) Gastroenteritis; Translations: [Noninfective gastroenteritis and colitis, unspecified] 06-07-2021 Episodic Nutritional deficiencies (2 sources) Vitamin D deficiency; Translations: [Vitamin D deficiency, unspecified] Onset: 4 06-18-2023 Chronic Open wounds of head; neck; and trunk (11 sources) Facial laceration ; Translations: [Laceration without foreign body of other part of head, initial encounter] 05-02-2018 Episodic Other connective tissue disease (2 sources) Pain of left lower leg; Translations: [Pain in left lower leg] Onset: 2 Episodic Other connective tissue disease (1 source) Left achilles tendonitis; Translations: [Achilles tendinitis, left leg] Episodic Other connective tissue disease (1 source) Achilles tendinitis, left leg; Translations: [Achilles tendinitis, left leg] Onset: 5 Episodic Other connective tissue disease (2 sources) Pain in left lower leg; Translations: [Pain in left lower leg] Onset: 5 Episodic Other connective tissue disease (1 source) Achilles tendinitis, unspecified leg; Translations: [Achilles tendinitis, unspecified leg] Onset: 5 Episodic Other gastrointestinal disorders (1 source) Irritable bowel syndrome without diarrhea; Translations: [Irritable bowel syndrome, unspecified] Onset: 4 Chronic Other injuries and conditions due to external causes (1 source) Traumatic AND/OR non-traumatic injury; Translations: [Other injury of unspecified body region, initial encounter] Onset: 2 Episodic Other liver diseases (1 source) Fatty (change of) liver, not elsewhere classified; Translations: [Fatty (change of) liver, not elsewhere classified] Onset: 4 Chronic Other lower respiratory disease (1 source) Shortness of breath; Translations: [Shortness of breath] Onset: 5 Episodic Other nervous system disorders (2 sources) Other chronic pain; Translations: [Chronic bilateral low back pain with left-sided sciatica] Onset: 4 Chronic Other non-traumatic joint disorders (11 sources) Shoulder pain; Translations: [Pain in right shoulder] 10-01-2018 Episodic Other non-traumatic joint disorders (11 sources) Pain in elbow; Translations: [Pain in right elbow] 03-30-2021 Episodic Other non-traumatic joint disorders (20 sources) Hip pain; Translations: [Pain in left hip] 04-11-2021 Episodic Other non-traumatic joint disorders (4 sources) Multiple joint pain; Translations: [Pain in unspecified joint] 06-18-2023 Episodic Other non-traumatic joint disorders (1 source) Ankle joint pain; Translations: [Pain in left ankle and joints of left foot] Onset: 5 Episodic Other non-traumatic joint disorders (1 source) Pain in left ankle and joints of left foot; Translations: [Pain in left ankle and joints of left foot] Onset: 5 Episodic Other screening for suspected conditions (not mental disorders or infectious disease) (1 source) Cancer cervix screening status; Translations: [Encounter for screening for malignant neoplasm of cervix] 11-22-2023 Episodic Other upper respiratory infections (20 sources) Acute upper respiratory infection; Translations: [Acute upper respiratory infection, unspecified] Onset: 5 Episodic Poisoning by nonmedicinal substances (11 sources) Bee sting; Translations: [Toxic effect of venom of bees, accidental (unintentional), initial encounter] 01-27-2021 Episodic Residual codes; unclassified (1 source) Procedure and treatment not carried out due to patient leaving prior to being seen by health care provider; Translations: [Procedure and treatment not carried out due to patient leaving prior to being seen by health care provider] Onset: 5 Episodic Skin and subcutaneous tissue infections (1 source) Cellulitis; Translations: [Cellulitis, unspecified] Onset: 2 Episodic Spondylosis; intervertebral disc disorders; other back problems (20 sources) Bilateral arthritis of sacroiliac joint; Translations: [Sacroiliitis, not elsewhere classified] Chronic Spondylosis; intervertebral disc disorders; other back problems (20 sources) Backache; Translations: [Dorsalgia, unspecified] Onset: 2 Episodic Substance-related disorders (1 source) Other psychoactive substance abuse, in remission; Translations: [Other psychoactive substance abuse, in remission] Onset: 5 Chronic Substance-related disorders (11 sources) Heroin overdose; Translations: [Poisoning by heroin, accidental (unintentional), initial encounter] 05-02-2018 Episodic Superficial injury; contusion (11 sources) Contusion of right middle finger; Translations: [Contusion of right middle finger without damage to nail, initial encounter] 12-15-2017 Episodic Unclassified (11 sources) No history of clinical finding in subject; Translations: [No significant past medical history] 08-21-2019 Unclassified (1 source) Cough, unspecified; Translations: [Cough, unspecified] Onset: 5 Urinary tract infections (17 sources) Urinary tract infectious disease; Translations: [Urinary tract infection, site not specified] Episodic Viral infection (3 sources) Genital herpes simplex; 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 infection of urogenital system, unspecified] Chronic Viral infection (1 source) COVID-19; Translations: [COVID-19] Onset: 4 Past or Other Problems Problem Classification Problem Date Documented Da te Episodic/Chronic Contraceptive and procreative management (20 sources) Patient encounter status; Translations: [Encounter for surveillance of injectable contraceptive] Onset: 03-15-2023 Episodic Hepatitis (1 source) Unspecified viral hepatitis C without hepatic coma; Translations: [Unspecified viral hepatitis C without hepatic coma] Onset: 03-23-2024 Episodic Other aftercare (1 source) Encounter for therapeutic drug level monitoring; Translations: [Encounter for therapeutic drug level monitoring] Onset: 07-14-2024 Episodic Other ear and sense organ disorders (1 source) Otalgia, left ear; Translations: [Otalgia, left ear] Onset: 12-28-2023 Episodic Other gastrointestinal disorders (2 sources) Diarrhea, unspecified; Translations: [Diarrhea, unspecified] Onset: 04-01-2024 Episodic Other non-traumatic joint disorders (1 source) Pain in unspecified joint; Translations: [Pain in joint, multiple sites] Onset: 06-29-2023 Episodic Other non-traumatic joint disorders (2 sources) Pain in left knee; Translations: [Pain in joint, lower leg] Onset: 05-30-2023 05-30-2023 Episodic Other upper respiratory disease (1 source) Dysphonia; Translations: [Dysphonia] Onset: 07-14-2024 Episodic Sprains and strains (20 sources) Sprain of ankle; Translations: [Sprain of unspecified ligament of left ankle, initial encounter] Onset: 10-10-2021 Episodic Results Test Name Value Interpretation Reference Range Facility MR/BMS.BPon 10-16-2024 MR/BMS.BP Normal [facility] Internal Medicine Office Vis iton 10-03-2024 Internal Medicine Office Visit Normal [facility] Chest PA and Lateralon 09-18 Chest PA and Lateral Normal [facility] Urgent Care Visit Reporton 0 09-18-2024 Urgent Care Visit Report Normal [facility] Emergency Department Summary on 09-11-2024 Emergency Department Summary Normal [facility] Venous Duplex Imag/Limited/U nion 09-11-2024 Venous Duplex Imag/Limited/Uni Normal [facility] MR/BMS.BPon 09-04-2024 MR/BMS.BP Normal [facility] Tibia Fibula 2 Viewson 08-18 Tibia Fibula 2 Views Normal [facility] MR/BMS.BPon 08-07-2024 MR/BMS.BP Normal [facility] MR/BMS.BPon 07-17-2024 MR/BMS.BP Normal [facility] Alcohol, Blood (Medical)-Ser umon 07-08-2024 SERUM ETOH 56.6 mg/dL High <=10.0 [facility] Comment on above: Result Comment: This test is for medical purposes only. The legaldefinition of intoxication varies according to local law. Performed By: #### L 505.5000, L700.6800, L100.0100, L501.9100, L500.2500 ####[facility] [address] [place], [address] Basic Metabolic Profile (BMP )on 07-08-2024 BUN/CRE 13.1 RATIO Normal 10-20 [facility] Comment on above: Performed By: #### L 505.5000, L700.6800, L100.0100, L501.9100, L500.2500 ####[facility] [address] [place], [address] Calcium [Mass/Vol] 8.9 mg/dL Normal 7.6-11.0 [facility] Comment on above: Performed By: #### L 505.5000, [id number], L100.0100, L501.9100, L500.2500 ####[facility] [address] [place], [address] Chloride [Moles/Vol] 105 mmol/L Normal 98-108 [facility] Comment on above: Performed By: #### L 505.5000, [id number], L100.0100, L501.9100, L500.2500 ####[facility] [address] [place], [address] CO2 [Moles/Vol] 20.0 mmol/L Low 21.0-32.0 [facility] Comment on above: Performed By: #### L 505.5000, [id number], L100.0100, L501.9100, L500.2500 ####[facility] [address] [place], [address] Creatinine [Mass/Vol] 0.81 mg/dL Normal 0.70-1.20 [facility] Comment on above: Performed By: #### L 505.5000, [id number], L100.0100, L501.9100, L500.2500 ####[facility] [address] [place], [address] ECRCL 109.32 ml/min Normal 50-250 [facility] Comment on above: Performed By: #### L 505.5000, L700.6800, L100.0100, L501.9100, L500.2500 ####[facility] [address] [place] [address] GAP 14 Normal 5-15 [facility] Comment on above: Performed By: #### L 505.5000, L700.6800, L100.0100, L501.9100, L500.2500 ####[facility] [address] [place], [address] GFR/1.73 sq M.predicted among non-blacks MDRD (S/P/Bld) [Vol rate/Area] 98 mL/min/{1.73_m2} Normal >60 [facility] Comment on above: Result Comment: mL/m in/1.73m2 CKD-EPI Creatinine Equation (2020) Performed By: #### L 505.5000, L700.6800, L100.0100, L501.9100, L500.2500 ####[facility] [address] [place], [address] Glucose [Mass/Vol] 90 mg/dL Normal 70-99 [facility] Comment on above: Performed By: #### L 505.5000, L700.6800, L100.0100, L501.9100, L500.2500 ####[facility] [address] [place], [address] Potassium [Moles/Vol] 4.0 mmol/L Normal 3.3-5.1 [facility] Comment on above: Performed By: #### L 505.5000, L700.6800, L100.0100, L501.9100, L500.2500 ####[facility] [address] [place], [address] Sodium [Moles/Vol] 139 mmol/L Normal 133-145 [facility] Comment on above: Performed By: #### L 505.5000, L700.6800, L100.0100, L501.9100, L500.2500 ####[facility] [address] [place], [address] Urea nitrogen [Mass/Vol] 11 mg/dL Normal 4-19 [facility] Comment on above: Performed By: #### L 505.5000, L700.6800, L100.0100, L501.9100, L500.2500 ####[facility] [address] [place], [address] CBC W/Diff, Automatedon 03-0 Absolute Lymph 1.83 X10 3/uL Normal 0.83-4.51 [facility] Comment on above: Performed By: #### L 505.5000, L700.6800, L100.0100, L501.9100, L500.2500 ####[facility] [address] [place], [address] Absolute Neut 3.9 X10 3/uL Normal 2.0-7.7 [facility] Comment on above: Performed By: #### L 505.5000, L700.6800, L100.0100, L501.9100, L500.2500 ####[facility] [address] [place], [address] Basophils/100 WBC (Bld) 1.1 % High 0-1 [facility] Comment on above: Performed By: #### L 505.5000, L700.6800, L100.0100, L501.9100, L500.2500 ####[facility] [address] [place], [address] Eosinophils/100 WBC (Bld) 1.3 % Normal 0-5 [facility] Comment on above: Performed By: #### L 505.5000, L700.6800, L100.0100, L501.9100, L500.2500 ####[facility] [address] [place], [address] Erythrocyte distribution width (RBC) [Ratio] 13.2 % Normal 11.6-14.6 [facility] Comment on above: Performed By: #### L 505.5000, L700.6800, L100.0100, L501.9100, L500.2500 ####[facility] [address] [place], [address] Hematocrit (Bld) [Volume fraction] 43.4 % Normal 37-47 [facility] Comment on above: Performed By: #### L 505.5000, L700.6800, L100.0100, L501.9100, L500.2500 ####[facility] [address] [place], [address] Hemoglobin (Bld) [Mass/Vol] 14.3 g/dL Normal 12.0-15.0 [facility] Comment on above: Performed By: #### L 505.5000, L700.6800, L100.0100, L501.9100, L500.2500 ####[facility] [address] [place], [address] IG% 0.300 Normal 0.0-0.9 [facility] Comment on above: Result Comment: IG% - Immature Granulocytes (promyelocytes, myelocytes andmetamyelocytes) > 1% indicates that a LEFT SHIFT is Present. Performed By: #### L 505.5000, L700.6800, L100.0100, L501.9100, L500.2500 ####[facility] [address] [place], [address] Lymphocytes/100 WBC (Bld) 28.6 % Normal 19-41 [facility] Comment on above: Performed By: #### L 505.5000, L700.6800, L100.0100, L501.9100, L500.2500 ####[facility] [address] [place], [address] MCH (RBC) [Entitic mass] 28.7 pg Normal 27.0-32.0 [facility] Comment on above: Performed By: #### L 505.5000, L700.6800, L100.0100, L501.9100, L500.2500 ####[facility] [address] [place], [address] MCHC (RBC) [Mass/Vol] 32.9 g/dL Normal 32-36 [facility] Comment on above: Performed By: #### L 505.5000, L700.6800, L100.0100, L501.9100, L500.2500 ####[facility] [address] [place], [address] MCV (RBC) [Entitic vol] 87.0 fL Normal 81-99 [facility] Comment on above: Performed By: #### L 505.5000, L700.6800, L100.0100, L501.9100, L500.2500 ####[facility] [address] [place], [address] Monocytes/100 WBC (Bld) 7.3 % Normal 0-10 [facility] Comment on above: Performed By: #### L 505.5000, L700.6800, L100.0100, L501.9100, L500.2500 ####[facility] [address] [place], [address] Neutrophils/100 WBC (Bld) 61.4 % Normal 47-70 [facility] Comment on above: Performed By: #### L 505.5000, L700.6800, L100.0100, L501.9100, L500.2500 ####[facility] [address] [place], [address] Nucleated RBC (Bld) [#/Vol] 0 10*3/uL Normal 0-5 [facility] Comment on above: Performed By: #### L 505.5000, L700.6800, L100.0100, L501.9100, L500.2500 ####[facility] [address] [place], [address] Platelet mean volume (Bld) [Entitic vol] 9.7 fL Normal 6.2-12.0 [facility] Comment on above: Performed By: #### L 505.5000, L700.6800, L100.0100, L501.9100, L500.2500 ####[facility] [address] [place], [address] Platelets (Bld) [#/Vol] 399 10*3/uL Normal 150-450 [facility] Comment on above: Performed By: #### L 505.5000, L700.6800, L100.0100, L501.9100, L500.2500 ####[facility] [address] [place], [address] RBC (Bld) [#/Vol] 4.99 10*6/uL Normal 4.2-5.4 [facility] Comment on above: Performed By: #### L 505.5000, L700.6800, L100.0100, L501.9100, L500.2500 ####[facility] [address] [place], [place], [id number] RDW SD 41.3 fl Normal 35.1-43.9 [facility] Comment on above: Performed By: #### L 505.5000, L700.6800, L100.0100, L501.9100, L500.2500 ####[facility] [address] [place], [place], [address] WBC (Bld) [#/Vol] 6.4 10*3/uL Normal 4.4-11.0 [facility] Comment on above: Performed By: #### L 505.5000, L700.6800, L100.0100, L501.9100, L500.2500 ####[facility] [address] [place], [place], [id number] Emergency Department Summary on 07-08-2024 Emergency Department Summary Normal [facility] ,Serum,hCG Quali.on 07-08-2024 HCG, SERUM QUAL Negative Normal [facility] Comment on above: Order Comment: if fe male and of childbearing age (8-55 years old) Performed By: #### L 505.5000, L700.6800, L100.0100, L501.9100, L500.2500 ####[facility] [address] [place], [place], [id number] Urine Drug Screen (VISTA)on 07-08-2024 AMPHETAMINES Positive Normal <1000 ng/mL [facility] Comment on above: Result Comment: If c onfirmation testing is needed, a separate order will berequired to send out testing to the reference laboratory. Performed By: #### L 505.5000, L700.6800, L100.0100, L501.9100, L500.2500 ####[facility] [address] [place], [place], [phone] BARBITIURATES Negative Normal < 200 ng/mL [facility] Comment on above: Performed By: #### L 505.5000, L700.6800, L100.0100, L501.9100, L500.2500 ####[facility] [address] [place], [place], [phone] BENZODIAZIPINE Positive Normal < 200 ng/mL [facility] Comment on above: Result Comment: If c onfirmation testing is needed, a separate order will berequired to send out testing to the reference laboratory. Performed By: #### L 505.5000, L700.6800, L100.0100, L501.9100, L500.2500 ####[facility] [address] [place], [place], [phone] BUP Ur Drug Scr Negative Normal < 200 ng/mL [facility] Comment on above: Performed By: #### L 505.5000, L700.6800, L100.0100, L501.9100, L500.2500 ####[facility] [address] [place], [place], [phone] COCAINE Negative Normal < 300 ng/mL [facility] Comment on above: Performed By: #### L 505.5000, L700.6800, L100.0100, L501.9100, L500.2500 ####[facility] [address] [place], [place], [phone] Fentanyl Negative Normal [facility] Comment on above: Performed By: #### L 505.5000, L700.6800, L100.0100, L501.9100, L500.2500 ####[facility] [address] [place], [place], [phone] METHADONE Negative Normal < 300 ng/mL [facility] Comment on above: Performed By: #### L 505.5000, L700.6800, L100.0100, L501.9100, L500.2500 ####[facility] [address] [place] [address] OPIATES Negative Normal < 300 ng/mL [facility] Comment on above: Performed By: #### L 505.5000, L700.6800, L100.0100, L501.9100, L500.2500 ####[facility] [address] [place] [address] OXYCODONE Negative Normal < 100 ng/mL [facility] Comment on above: Performed By: #### L 505.5000, L700.6800, L100.0100, L501.9100, L500.2500 ####[facility] [address] [place], [place], [phone] PCP Negative Normal < 25 ng/mL [facility] Comment on above: Performed By: #### L 505.5000, L700.6800, L100.0100, L501.9100, L500.2500 ####[facility] [address] [place] [address] THC Positive Normal < 50 ng/mL [facility] Comment on above: Result Comment: If c onfirmation testing is needed, a separate order will berequired to send out testing to the reference laboratory. Performed By: #### L 505.5000, L700.6800, L100.0100, L501.9100, L500.2500 ####[facility] [address] [place], [place], [phone] Internal Medicine Office Vis iton 06-30-2024 Internal Medicine Office Visit Normal [facility] Hepatitis C,RNA PCR Viral Lo photogeologist 06-20-2024 HCV log 10 TNP Normal . [facility] Comment on above: Performed By: #### L 7000.7000 ####[facility] [address] [place], [address] HCV QT RNA PCR Not detected Normal . [facility] Comment on above: Performed By: #### L 7000.7000 ####[facility] [address] [place], [address] TEST INFO: Comment Normal . [facility] Comment on above: Result Comment: The quantitative range of this assay is 15 IU/mL to 100million IU/mL.Performed at: [facility] [address] [id number] Director: Sarah Means MD, Phone: [phone] Performed By: #### L 0.7000 ####[facility] [address] [place], [address] Urgent Care Visit Reporton 0 06-19-2024 Urgent Care Visit Report Normal [facility] CBC W/Diff, Automatedon 06-07 Absolute Lymph 1.73 X10 3/uL Normal 0.83-4.51 [facility] Comment on above: Performed By: #### L 505.5000, L100.0100, L500.4050, L500.4100 ####[facility] [address] [place], [address] Absolute Neut 3.4 X10 3/uL Normal 2.0-7.7 [facility] Comment on above: Performed By: #### L 505.5000, L100.0100, L500.4050, L500.4100 ####[facility] [address] [place], [address] Basophils/100 WBC (Bld) 0.7 % Normal 0-1 [facility] Comment on above: Performed By: #### L 505.5000, L100.0100, L500.4050, L500.4100 ####[facility] [address] [place], [address] Eosinophils/100 WBC (Bld) 0.7 % Normal 0-5 [facility] Comment on above: Performed By: #### L 505.5000, L100.0100, L500.4050, L500.4100 ####[facility] [address] [place], [address] Erythrocyte distribution width (RBC) [Ratio] 13.2 % Normal 11.6-14.6 [facility] Comment on above: Performed By: #### L 505.5000, L100.0100, L500.4050, L500.4100 ####[facility] [address] [place], [address] Hematocrit (Bld) [Volume fraction] 45.0 % Normal 37-47 [facility] Comment on above: Performed By: #### L 505.5000, L100.0100, L500.4050, L500.4100 ####[facility] [address] [place], [address] Hemoglobin (Bld) [Mass/Vol] 14.7 g/dL Normal 12.0-15.0 [facility] Comment on above: Performed By: #### L 505.5000, L100.0100, L500.4050, L500.4100 ####[facility] [address] [place], [address] IG% 0.300 Normal 0.0-0.9 [facility] Comment on above: Result Comment: IG% - Immature Granulocytes (promyelocytes, myelocytes andmetamyelocytes) > 1% indicates that a LEFT SHIFT is Present. Performed By: #### L 505.5000, L100.0100, L500.4050, L500.4100 ####[facility] [address] [place], [address] Lymphocytes/100 WBC (Bld) 29.8 % Normal 19-41 [facility] Comment on above: Performed By: #### L 505.5000, L100.0100, L500.4050, L500.4100 ####[facility] [address] [place], [address] MCH (RBC) [Entitic mass] 28.1 pg Normal 27.0-32.0 [facility] Comment on above: Performed By: #### L 505.5000, L100.0100, L500.4050, L500.4100 ####[facility] [address] [place], [address] MCHC (RBC) [Mass/Vol] 32.7 g/dL Normal 32-36 [facility] Comment on above: Performed By: #### L 505.5000, L100.0100, L500.4050, L500.4100 ####[facility] [address] [place], [address] MCV (RBC) [Entitic vol] 86.0 fL Normal 81-99 [facility] Comment on above: Performed By: #### L 505.5000, L100.0100, L500.4050, L500.4100 ####[facility] [address] [place], [address] Monocytes/100 WBC (Bld) 9.8 % Normal 0-10 [facility] Comment on above: Performed By: #### L 505.5000, L100.0100, L500.4050, L500.4100 ####[facility] [address] [place], [address] Neutrophils/100 WBC (Bld) 58.7 % Normal 47-70 [facility] Comment on above: Performed By: #### L 505.5000, L100.0100, L500.4050, L500.4100 ####[facility] [address] [place], [address] Nucleated RBC (Bld) [#/Vol] 0 10*3/uL Normal 0-5 [facility] Comment on above: Performed By: #### L 505.5000, L100.0100, L500.4050, L500.4100 ####[facility] [address] [place], [address] Platelet mean volume (Bld) [Entitic vol] 10.3 fL Normal 6.2-12.0 [facility] Comment on above: Performed By: #### L 505.5000, L100.0100, L500.4050, L500.4100 ####[facility] [address] [place], [address] Platelets (Bld) [#/Vol] 368 10*3/uL Normal 150-450 [facility] Comment on above: Performed By: #### L 505.5000, L100.0100, L500.4050, L500.4100 ####[facility] [address] [place], [address] RBC (Bld) [#/Vol] 5.23 10*6/uL Normal 4.2-5.4 [facility] Comment on above: Performed By: #### L 505.5000, L100.0100, L500.4050, L500.4100 ####[facility] [address] [place], [address] RDW SD 41.0 fl Normal 35.1-43.9 [facility] Comment on above: Performed By: #### L 505.5000, L100.0100, L500.4050, L500.4100 ####[facility] [address] [place], [address] WBC (Bld) [#/Vol] 5.8 10*3/uL Normal 4.4-11.0 [facility] Comment on above: Performed By: #### L 505.5000, L100.0100, L500.4050, L500.4100 ####[facility] [address] [place], [address] Comprehensive Metabolic Prof ilon 06-18-2024 Albumin [Mass/Vol] 3.5 g/dL Normal 3.2-5.0 [facility] Comment on above: Performed By: #### L 505.5000, L100.0100, L500.4050, L500.4100 ####[facility] [address] [place], [address] Albumin/Globulin [Mass ratio] 0.9 {ratio} Normal 0.9-2.4 [facility] Comment on above: Performed By: #### L 505.5000, L100.0100, L500.4050, L500.4100 ####[facility] [address] [place], [address] ALK P 170 U/L High 45-117 [facility] Comment on above: Performed By: #### L 505.5000, L100.0100, L500.4050, L500.4100 ####[facility] [address] [place], [address] ALT [Catalytic activity/Vol] 125 U/L High 13-56 [facility] Comment on above: Performed By: #### L 505.5000, L100.0100, L500.4050, L500.4100 ####[facility] [address] [place], [address] AST [Catalytic activity/Vol] 25 U/L Normal 15-37 [facility] Comment on above: Performed By: #### L 505.5000, L100.0100, L500.4050, L500.4100 ####[facility] [address] [place], [address] Bilirubin [Mass/Vol] 0.50 mg/dL Normal 0.20-1.00 [facility] Comment on above: Result Comment: For patients on eltrombopag therapy, use of Dimension Perry TBIL is not recommended. Performed By: #### L 505.5000, L100.0100, L500.4050, L500.4100 ####[facility] [address] [place], [address] BUN/CRE 9.7 RATIO Low 10-20 [facility] Comment on above: Performed By: #### L 505.5000, L100.0100, L500.4050, L500.4100 ####[facility] [address] [place], [address] CA,Total 9.1 mg/dL Normal 8.5-10.1 [facility] Comment on above: Performed By: #### L 505.5000, L100.0100, L500.4050, L500.4100 ####[facility] [address] [place], [address] Chloride [Moles/Vol] 105 mmol/L Normal 98-107 [facility] Comment on above: Performed By: #### L 505.5000, L100.0100, L500.4050, L500.4100 ####[facility] [address] [place], [address] CO2 [Moles/Vol] 27.0 mmol/L Normal 21.0-32.0 [facility] Comment on above: Performed By: #### L 505.5000, L100.0100, L500.4050, L500.4100 ####[facility] [address] [place], [address] Creatinine [Mass/Vol] 0.92 mg/dL Normal 0.55-1.02 [facility] Comment on above: Result Comment: The validity of the calculated GFR GFRAA in patients over70 years has not been determined. Clinical correlation isessential. Performed By: #### L 505.5000, L100.0100, L500.4050, L500.4100 ####[facility] [address] [place], [address] EST GFR - AA 90 mL/min Normal >60 [facility] Comment on above: Result Comment: Afri can Togolese GFR Calc Performed By: #### L 505.5000, L100.0100, L500.4050, L500.4100 ####[facility] [address] [place], [address] GAP 6 Normal 5-15 [facility] Comment on above: Performed By: #### L 505.5000, L100.0100, L500.4050, L500.4100 ####[facility] [address] [place], [address] GFR/1.73 sq M.predicted among non-blacks MDRD (S/P/Bld) [Vol rate/Area] 74 mL/min/{1.73_m2} Normal >60 [facility] Comment on above: Result Comment: Non- GFR Calc Performed By: #### L 505.5000, L100.0100, L500.4050, L500.4100 ####[facility] [address] [place], [address] Globulin (S) [Mass/Vol] 3.9 g/dL Normal 2.2-4.2 [facility] Comment on above: Performed By: #### L 505.5000, L100.0100, L500.4050, L500.4100 ####[facility] [address] [place], [address] Glucose [Mass/Vol] 85 mg/dL Normal 74-106 [facility] Comment on above: Performed By: #### L 505.5000, L100.0100, L500.4050, L500.4100 ####[facility] [address] [place], [address] Potassium [Moles/Vol] 4.1 mmol/L Normal 3.5-5.1 [facility] Comment on above: Performed By: #### L 505.5000, L100.0100, L500.4050, L500.4100 ####[facility] [address] [place], [address] Sodium [Moles/Vol] 138 mmol/L Normal 136-145 [facility] Comment on above: Performed By: #### L 505.5000, L100.0100, L500.4050, L500.4100 ####[facility] [address] [place], [address] T PROT 7.4 g/dL Normal 6.4-8.2 [facility] Comment on above: Performed By: #### L 505.5000, L100.0100, L500.4050, L500.4100 ####[facility] [address] [place], [address] Urea nitrogen [Mass/Vol] 9 mg/dL Normal 7-18 [facility] Comment on above: Performed By: #### L 505.5000, L100.0100, L500.4050, L500.4100 ####[facility] [address] [place], [address] Internal Medicine Office Vis iton 06-18-2024 Internal Medicine Office Visit Normal [facility] Lipid Profileon 06-18-2024 Cholesterol [Mass/Vol] 171 mg/dL Normal [address] [facility] Comment on above: Result Comment: <200 mg/dL Desirable 200-240 mg/dL Borderline >240 mg/dL High Risk Performed By: #### L 505.5000, L100.0100, L500.4050, L500.4100 ####[facility] [address] [place], [address] Cholesterol in HDL [Mass/Vol] 54 mg/dL Normal [facility] Comment on above: Result Comment: The drugs N-Acetylcysteine and Metamizole may falselydepress this assay. Reference Range HDL <40 mg/dL Low HDL Cholesterol HDL >or= 60 mg/dL High HDL Cholesterol Performed By: #### L 505.5000, L100.0100, L500.4050, L500.4100 ####[facility] [address] [place], [address] Cholesterol in LDL [Mass/Vol] 96 mg/dL Normal 0-130 [facility] Comment on above: Performed By: #### L 505.5000, L100.0100, L500.4050, L500.4100 ####[facility] [address] [place], [address] Cholesterol in VLDL [Mass/Vol] 21 mg/dL Normal 5-40 [facility] Comment on above: Performed By: #### L 505.5000, L100.0100, L500.4050, L500.4100 ####[facility] [address] [place], [address] Triglyceride [Mass/Vol] 103 mg/dL Normal [facility] [facility] Comment on above: Result Comment: The drugs N-Acetylcysteine and Metamizole may falselydepress this assay.Serum Triglycerides Reference Interval Normal <150 mg/dL Borderline high 150 - 199 mg/dL High 200 - 499 mg/dL Very High > or = 500 mg/dL Performed By: #### L 505.5000, L100.0100, L500.4050, L500.4100 ####[facility] [address] [place], [address] Urine Drug Screen (VISTA)on 06-18-2024 AMPHETAMINES Negative Normal <1000 ng/mL [facility] Comment on above: Order Comment: UNK Performed By: #### L 505.5000, L100.0100, L500.4050, L500.4100 ####[facility] [address] [place], [address] BARBITIURATES Negative Normal < 200 ng/mL [facility] Comment on above: Order Comment: UNK Performed By: #### L 505.5000, L100.0100, L500.4050, L500.4100 ####[facility] [address] [place], [place], [phone] BENZODIAZIPINE Negative Normal < 200 ng/mL [facility] Comment on above: Order Comment: UNK Performed By: #### L 505.5000, L100.0100, L500.4050, L500.4100 ####[facility] [address] [place], [place], [phone] COCAINE Negative Normal < 300 ng/mL [facility] Comment on above: Order Comment: UNK Performed By: #### L 505.5000, L100.0100, L500.4050, L500.4100 ####[facility] [address] [place], [place], [phone] ECSTACY Negative Normal < 500 ng/mL [facility] Comment on above: Order Comment: UNK Performed By: #### L 505.5000, L100.0100, L500.4050, L500.4100 ####[facility] [address] [place], [place], [phone] METHADONE Negative Normal < 300 ng/mL [facility] Comment on above: Order Comment: UNK Performed By: #### L 505.5000, L100.0100, L500.4050, L500.4100 ####[facility] [address] [place], [address] OPIATES Negative Normal < 300 ng/mL [facility] Comment on above: Order Comment: UNK Performed By: #### L 505.5000, L100.0100, L500.4050, L500.4100 ####[facility] [address] [place], [address] PCP Negative Normal < 25 ng/mL [facility] Comment on above: Order Comment: UNK Performed By: #### L 505.5000, L100.0100, L500.4050, L500.4100 ####[facility] [address] [place], [address] THC Positive Abnormal < 50 ng/mL [facility] Comment on above: Order Comment: UNK Performed By: #### L 505.5000, L100.0100, L500.4050, L500.4100 ####[facility] [address] [place], [address] VISTA UDS PH 6 Normal [facility] Comment on above: Order Comment: UNK Performed By: #### L 505.5000, L100.0100, L500.4050, L500.4100 ####[facility] [address] [place], [address] Emergency Department Summary on 06-14-2024 Emergency Department Summary Normal [facility] M100.678on 06-14-2024 M100.678 [facility] Comment on above: Performed By: #### M 100.678 ####[facility] [address] [place], [address] Chest PA and Lateralon 06-11 Chest PA and Lateral Normal [facility] MR/BMS.BPon 05-27-2024 MR/BMS.BP Normal [facility] MR/BMS.BPon 05-23-2024 MR/BMS.BP Normal [facility] MR/BMS.BPon 05-13-2024 MR/BMS.BP Normal [facility] MR/BMS.BPon 04-07-2024 MR/BMS.BP Normal [facility] ,Urineon 03-26-2024 Beta HCG ( test) Ql (U) Normal [facility] Comment on above: Result Comment: Canc elled via OM: pt didn't show up Performed By: #### L 400.7600 ####[facility] [address] [place], [address] INTERNAL QC OK? Normal [facility] Comment on above: Result Comment: Canc elled via OM: pt didn't show up Performed By: #### L 400.7600 ####[facility] [address] [place], [address] RECORD KIT LOT# Normal [facility] Comment on above: Result Comment: Canc elled via OM: pt didn't show up Performed By: #### L 400.7600 ####[facility] [address] [place], [address] MR/BMS.BPon 03-24-2024 MR/BMS.BP Normal [facility] Biopsy/Inj or Needle Placeme nton 03-20-2024 Biopsy/Inj or Needle Placement Normal [facility] Partial Thromboplast Timeon 03-20-2024 aPTT Coag (Bld) [Time] 25.5 s Normal 24.1-36.[address] [facility] Comment on above: Performed By: #### L 300.4310, L300.3900, L100.1900 ####[facility] [address] [place], [address] Platelet Counton 03-20-2024 Platelets (Bld) [#/Vol] 474 10*3/uL High 150-450 [facility] Comment on above: Performed By: #### L 300.4310, L300.3900, L100.1900 ####[facility] [address] [place], [address] Prothrombin Time w/INRon INR Coag (PPP) [Relative time] 0.9 {INR} Normal [facility] Comment on above: Performed By: #### L 300.4310, L300.3900, L100.1900 ####[facility] [address] [place], [address] PT Coag (PPP) [Time] 12.3 s Normal 11.7-14.9 [facility] Comment on above: Performed By: #### L 300.4310, L300.3900, L100.1900 ####[facility] [address] [place], [address] Trichrome (control)on 2023 Trichrome (control) Normal [facility] Comment on above: Performed By: #### P TRI ####[facility] [address] [place], [address] 12 Lead EKGon 03-11-2024 12 Lead EKG Normal [facility] Basic Metabolic Profile (BMP )on 03-11-2024 BUN/CRE 9.9 RATIO Low 10-20 [facility] Comment on above: Order Comment: 'TROP ' Serial specimen #1, #2 or #3: 1 Performed By: #### L 700.6800, L100.0100, L501.4020, L501.2450, L500.2500 ####[facility] [address] [place], [address] CA,Total 9.0 mg/dL Normal 8.5-10.1 [facility] Comment on above: Order Comment: 'TROP ' Serial specimen #1, #2 or #3: 1 Performed By: #### L 700.6800, L100.0100, L501.4020, L501.2450, L500.2500 ####[facility] [address] [place], [address] Chloride [Moles/Vol] 108 mmol/L High 98-107 [facility] Comment on above: Order Comment: 'TROP ' Serial specimen #1, #2 or #3: 1 Performed By: #### L 700.6800, L100.0100, L501.4020, L501.2450, L500.2500 ####[facility] [address] [place], [address] CO2 [Moles/Vol] 24.0 mmol/L Normal 21.0-32.0 [facility] Comment on above: Order Comment: 'TROP ' Serial specimen #1, #2 or #3: 1 Performed By: #### L 700.6800, L100.0100, L501.4020, L501.2450, L500.2500 ####[facility] [address] [place], [address] Creatinine [Mass/Vol] 0.91 mg/dL Normal 0.55-1.02 [facility] Comment on above: Order Comment: 'TROP ' Serial specimen #1, #2 or #3: 1 Result Comment: The validity of the calculated GFR GFRAA in patients over70 years has not been determined. Clinical correlation isessential. Performed By: #### L 700.6800, L100.0100, L501.4020, L501.2450, L500.2500 ####[facility] [address] [place], [address] ECRCL 94.50 ml/min Normal [facility] Comment on above: Order Comment: 'TROP ' Serial specimen #1, #2 or #3: 1 Performed By: #### L 700.6800, L100.0100, L501.4020, L501.2450, L500.2500 ####[facility] [address] [place], [address] EST GFR - AA 92 mL/min Normal >60 [facility] Comment on above: Order Comment: 'TROP ' Serial specimen #1, #2 or #3: 1 Result Comment: Afri can Togolese GFR Calc Performed By: #### L 700.6800, L100.0100, L501.4020, L501.2450, L500.2500 ####[facility] [address] [place], [address] GAP 5 Normal 5-15 [facility] Comment on above: Order Comment: 'TROP ' Serial specimen #1, #2 or #3: 1 Performed By: #### L 700.6800, L100.0100, L501.4020, L501.2450, L500.2500 ####[facility] [address] [place], [address] GFR/1.73 sq M.predicted among non-blacks MDRD (S/P/Bld) [Vol rate/Area] 76 mL/min/{1.73_m2} Normal >60 [facility] Comment on above: Order Comment: 'TROP ' Serial specimen #1, #2 or #3: 1 Result Comment: Non- GFR Calc Performed By: #### L 700.6800, L100.0100, L501.4020, L501.2450, L500.2500 ####[facility] [address] [place], [address] Glucose [Mass/Vol] 133 mg/dL High 74-106 [facility] Comment on above: Order Comment: 'TROP ' Serial specimen #1, #2 or #3: 1 Result Comment: Fast ing Glucose result greater than or equal to 126 mg/dLsuggests DIABETES MELLITUS per A.D.A. criteria. Performed By: #### L 700.6800, L100.0100, L501.4020, L501.2450, L500.2500 ####[facility] [address] [place], [address] Potassium [Moles/Vol] 3.6 mmol/L Normal 3.5-5.1 [facility] Comment on above: Order Comment: 'TROP ' Serial specimen #1, #2 or #3: 1 Performed By: #### L 700.6800, L100.0100, L501.4020, L501.2450, L500.2500 ####[facility] [address] [place], [address] Sodium [Moles/Vol] 138 mmol/L Normal 136-145 [facility] Comment on above: Order Comment: 'TROP ' Serial specimen #1, #2 or #3: 1 Performed By: #### L 700.6800, L100.0100, L501.4020, L501.2450, L500.2500 ####[facility] [address] [place], [address] Urea nitrogen [Mass/Vol] 9 mg/dL Normal 7-18 [facility] Comment on above: Order Comment: 'TROP ' Serial specimen #1, #2 or #3: 1 Performed By: #### L 700.6800, L100.0100, L501.4020, L501.2450, L500.2500 ####[facility] [address] [place], [address] CBC W/Diff, Automatedon 11-0 5-2023 Absolute Lymph 0.69 X10 3/uL Low 0.83-4.51 [facility] Comment on above: Performed By: #### L 700.6800, L100.0100, L501.4020, L501.2450, L500.2500 ####[facility] [address] [place], [address] Absolute Neut 11.1 X10 3/uL High 2.0-7.7 [facility] Comment on above: Performed By: #### L 700.6800, L100.0100, L501.4020, L501.2450, L500.2500 ####[facility] [address] [place], [address] Basophils/100 WBC (Bld) 0.3 % Normal 0-1 [facility] Comment on above: Performed By: #### L 700.6800, L100.0100, L501.4020, L501.2450, L500.2500 ####[facility] [address] [place], [address] Eosinophils/100 WBC (Bld) 0.1 % Normal 0-5 [facility] Comment on above: Performed By: #### L 700.6800, L100.0100, L501.4020, L501.2450, L500.2500 ####[facility] [address] [place], [address] Erythrocyte distribution width (RBC) [Ratio] 12.3 % Normal 11.6-14.6 [facility] Comment on above: Performed By: #### L 700.6800, L100.0100, L501.4020, L501.2450, L500.2500 ####[facility] [address] [place], [address] Hematocrit (Bld) [Volume fraction] 42.6 % Normal 37-47 [facility] Comment on above: Performed By: #### L 700.6800, L100.0100, L501.4020, L501.2450, L500.2500 ####[facility] [address] [place], [address] Hemoglobin (Bld) [Mass/Vol] 14.4 g/dL Normal 12.0-15.0 [facility] Comment on above: Performed By: #### L 700.6800, L100.0100, L501.4020, L501.2450, L500.2500 ####[facility] [address] [place], [address] IG% 0.300 Normal 0.0-0.9 [facility] Comment on above: Result Comment: IG% - Immature Granulocytes (promyelocytes, myelocytes andmetamyelocytes) > 1% indicates that a LEFT SHIFT is Present. Performed By: #### L 700.6800, L100.0100, L501.4020, L501.2450, L500.2500 ####[facility] [address] [place], [address] Lymphocytes/100 WBC (Bld) 5.6 % Low 19-41 [facility] Comment on above: Performed By: #### L 700.6800, L100.0100, L501.4020, L501.2450, L500.2500 ####[facility] [address] [place], [address] MCH (RBC) [Entitic mass] 28.9 pg Normal 27.0-32.0 [facility] Comment on above: Performed By: #### L 700.6800, L100.0100, L501.4020, L501.2450, L500.2500 ####[facility] [address] [place], [address] MCHC (RBC) [Mass/Vol] 33.8 g/dL Normal 32-36 [facility] Comment on above: Performed By: #### L 700.6800, L100.0100, L501.4020, L501.2450, L500.2500 ####[facility] [address] [place], [address] MCV (RBC) [Entitic vol] 85.4 fL Normal 81-99 [facility] Comment on above: Performed By: #### L 700.6800, L100.0100, L501.4020, L501.2450, L500.2500 ####[facility] [address] [place], [address] Monocytes/100 WBC (Bld) 3.0 % Normal 0-10 [facility] Comment on above: Performed By: #### L 700.6800, L100.0100, L501.4020, L501.2450, L500.2500 ####[facility] [address] [place], [address] Neutrophils/100 WBC (Bld) 90.7 % High 47-70 [facility] Comment on above: Performed By: #### L 700.6800, L100.0100, L501.4020, L501.2450, L500.2500 ####[facility] [address] [place], [address] Nucleated RBC (Bld) [#/Vol] 0 10*3/uL Normal 0-5 [facility] Comment on above: Performed By: #### L 700.6800, L100.0100, L501.4020, L501.2450, L500.2500 ####[facility] [address] [place], [address] Platelet mean volume (Bld) [Entitic vol] 9.9 fL Normal 6.2-12.0 [facility] Comment on above: Performed By: #### L 700.6800, L100.0100, L501.4020, L501.2450, L500.2500 ####[facility] [address] [place], [address] Platelets (Bld) [#/Vol] 427 10*3/uL Normal 150-450 [facility] Comment on above: Performed By: #### L 700.6800, L100.0100, L501.4020, L501.2450, L500.2500 ####[facility] [address] [place], [address] RBC (Bld) [#/Vol] 4.99 10*6/uL Normal 4.2-5.4 [facility] Comment on above: Performed By: #### L 700.6800, L100.0100, L501.4020, L501.2450, L500.2500 ####[facility] [address] [place], [address] RDW SD 38.3 fl Normal 35.1-43.9 [facility] Comment on above: Performed By: #### L 700.6800, L100.0100, L501.4020, L501.2450, L500.2500 ####[facility] [address] [place], [address] WBC (Bld) [#/Vol] 12.2 10*3/uL High 4.4-11.0 [facility] Comment on above: Performed By: #### L 700.6800, L100.0100, L501.4020, L501.2450, L500.2500 ####[facility] [address] [place], [address] CTA Chest W/WO Contraston CTA Chest W/WO Contrast Normal [facility] Emergency Department Summary on 03-11-2024 Emergency Department Summary Normal [facility] L501.4020on 03-11-2024 TROPONIN-I HS < 3 Low 3.0-54.0 [facility] Comment on above: Order Comment: 'TROP ' Serial specimen #1, #2 or #3: 1 Result Comment: Plea se Note: New Test Units and Gender Specific Reference Ranges. For more information see Policy Stat Procedure Perry High Sensitivity Troponin (TNIH) and attachments. Performed By: #### L 700.6800, L100.0100, L501.4020, L501.2450, L500.2500 ####[facility] [address] [place], [address] Lipaseon 03-11-2024 Lipase [Catalytic activity/Vol] 20 U/L Normal 13-75 [facility] Comment on above: Order Comment: 'TROP ' Serial specimen #1, #2 or #3: 1 Result Comment: Plea se note:LIPASE revised reference range effective 22.New Lipase methodology. Expected to produce lower valuesthan the previous assay method.NEW Reference Range: 13 - 75 U/L Performed By: #### L 700.6800, L100.0100, L501.4020, L501.2450, L500.2500 ####[facility] [address] [place], [address] ,Serum,hCG Quali.on 03-11-2024 HCG, SERUM QUAL Negative Normal [facility] Comment on above: Performed By: #### L 700.6800, L100.0100, L501.4020, L501.2450, L500.2500 ####[facility] [address] [place], [place], [id number] ABD Limited w/ Elastographyo n 03-03-2024 ABD Limited w/ Elastography Normal [facility] Internal Medicine Office Vis iton 02-21-2024 Internal Medicine Office Visit Normal [facility] ANCAon 02-19-2024 Atypical pANCA <1:20 Normal Neg:<1:20 [facility] Comment on above: Order Comment: Test( s) [id number]-Spsbmp, Serum or Plasmawas developed and its performance characteristicsdetermined by [employer]. It has not been cleared or approvedby the Food and Drug Administration.N Result Comment: The atypical pANCA pattern has been observed in asignificant percentage of patients with ulcerative colitis,primary sclerosing cholangitis and autoimmune hepatitis. Performed By: #### L 3300.0100, L503.6550, L2100.0000, L3300.1200, L3410.1000, L3410.0900, L3300.1800, L4500.0100, L3300.0960, L501.9520, L503.0105, L3100.1850, L509.6000, L3200.0500, L101.9900, L500.4050, L100.0100, L501.6710, L3410.2400, L3200.1100, L503.6075, L3100.3425, L504.2610, L3100.6900 ####[facility] [address] [place], [address] Cytoplasmic Ab <1:20 Normal Neg:<1:20 [facility] Comment on above: Order Comment: Test( s) 264719-Erfzaj, Serum or Plasmawas developed and its performance characteristicsdetermined by [employer]. It has not been cleared or approvedby the Food and Drug Administration.N Performed By: #### L 3300.0100, L503.6550, L2100.0000, L3300.1200, L3410.1000, L3410.0900, L3300.1800, L4500.0100, L3300.0960, L501.9520, L503.0105, L3100.1850, L509.6000, L3200.0500, L101.9900, L500.4050, L100.0100, L501.6710, L3410.2400, L3200.1100, L503.6075, L3100.3425, L504.2610, L3100.6900 ####[facility] [address] [facility] [place], [address] Perinuclear Ab. <1:20 Normal Neg:<1:20 [facility] Comment on above: Order Comment: Test( s) 775424-Fymzui, Serum or Plasmawas developed and its performance characteristicsdetermined by [employer]. It has not been cleared or approvedby the Food and Drug Administration.N Result Comment: The presence of positive fluorescence exhibiting P-ANCA orC-ANCA patterns alone is not specific for the diagnosis ofWegener's Granulomatosis (WG) or microscopic polyangiitis.Decisions about treatment should not be based solely onANCA IFA results. The International ANCA Group Consensusrecommends follow up testing of positive sera with both CO-3 and MPO-ANCA enzyme immunoassays. As many as 5% serumsamples are positive only by EIA. Ref. AM J Clin [id number];111:507-513. Performed By: #### L 3300.0100, L503.6550, L2100.0000, L3300.1200, L3410.1000, L3410.0900, L3300.1800, L4500.0100, L3300.0960, L501.9520, L503.0105, L3100.1850, L509.6000, L3200.0500, L101.9900, L500.4050, L100.0100, L501.6710, L3410.2400, L3200.1100, L503.6075, L3100.3425, L504.2610, L3100.6900 ####[facility] [address] [place], [place], [address] Angiotensin Convert Enzymeon 02-19-2024 ANGIOT-CONV.ENZ 42 U/L Normal 14-82 [facility] Comment on above: Order Comment: Test( s) 570447-Hkozaj, Serum or Plasmawas developed and its performance characteristicsdetermined by [employer]. It has not been cleared or approvedby the Food and Drug Administration.N Performed By: #### L 3300.0100, L503.6550, L2100.0000, L3300.1200, L3410.1000, L3410.0900, L3300.1800, L4500.0100, L3300.0960, L501.9520, L503.0105, L3100.1850, L509.6000, L3200.0500, L101.9900, L500.4050, L100.0100, L501.6710, L3410.2400, L3200.1100, L503.6075, L3100.3425, L504.2610, L3100.6900 ####[facility] [address] [place], [place], [address] Anti-Parietal Cell AB, QNon 02-19-2024 ANTIPARIET CELL 4.1 Units Normal 0.0-20.0 [facility] Comment on above: Order Comment: Test( s) 322870-Gqcaxu, Serum or Plasmawas developed and its performance characteristicsdetermined by [employer]. It has not been cleared or approvedby the Food and Drug Administration.N Result Comment: Nega tive 0.0 - 20.0 Equivocal 20.1 - 24.9 Positive >24.9Parietal Cell Antibodies are found in 90% of patientswith pernicious anemia and 30% of first degreerelatives with pernicious anemia. Performed By: #### L 3300.0100, L503.6550, L2100.0000, L3300.1200, L3410.1000, L3410.0900, L3300.1800, L4500.0100, L3300.0960, L501.9520, L503.0105, L3100.1850, L509.6000, L3200.0500, L101.9900, L500.4050, L100.0100, L501.6710, L3410.2400, L3200.1100, L503.6075, L3100.3425, L504.2610, L3100.6900 ####[facility] [address] [place], [place], [id number] Celiac Disease Profileon ENDOMYSIAL IGA Negative Normal Negative [facility] Comment on above: Order Comment: Test( s) 195902-Kyrsmx, Serum or Plasmawas developed and its performance characteristicsdetermined by [employer]. It has not been cleared or approvedby the Food and Drug Administration.N Performed By: #### L 3300.0100, L503.6550, L2100.0000, L3300.1200, L3410.1000, L3410.0900, L3300.1800, L4500.0100, L3300.0960, L501.9520, L503.0105, L3100.1850, L509.6000, L3200.0500, L101.9900, L500.4050, L100.0100, L501.6710, L3410.2400, L3200.1100, L503.6075, L3100.3425, L504.2610, L3100.6900 ####[facility] [address] [place], [address] tTG IGA <2 Normal 0-3 [facility] Comment on above: Order Comment: Test( s) 438958-Iytobj, Serum or Plasmawas developed and its performance characteristicsdetermined by [employer]. It has not been cleared or approvedby the Food and Drug Administration.N Result Comment: Nega tive 0 - 3 Weak Positive 4 - 10 Positive >10 Tissue Transglutaminase (tTG) has been identified as the endomysial antigen. Studies have demonstr- ated that endomysial IgA antibodies have over 99% specificity for gluten sensitive enteropathy. Performed By: #### L 3300.0100, L503.6550, L2100.0000, L3300.1200, L3410.1000, L3410.0900, L3300.1800, L4500.0100, L3300.0960, L501.9520, L503.0105, L3100.1850, L509.6000, L3200.0500, L101.9900, L500.4050, L100.0100, L501.6710, L3410.2400, L3200.1100, L503.6075, L3100.3425, L504.2610, L3100.6900 ####[facility] [address] [place], [place], [address] Copper, Serum or Plasmaon COPPER, SERUM 98 ug/dL Normal 80-158 [facility] Comment on above: Order Comment: Test( s) 099033-Cvmoeg, Serum or Plasmawas developed and its performance characteristicsdetermined by [employer]. It has not been cleared or approvedby the Food and Drug Administration.N Result Comment: Dete ction Limit = 5 Performed By: #### L 3300.0100, L503.6550, L2100.0000, L3300.1200, L3410.1000, L3410.0900, L3300.1800, L4500.0100, L3300.0960, L501.9520, L503.0105, L3100.1850, L509.6000, L3200.0500, L101.9900, L500.4050, L100.0100, L501.6710, L3410.2400, L3200.1100, L503.6075, L3100.3425, L504.2610, L3100.6900 ####[facility] [address] [place], [place], [id number] Gastrin, Serumon 02-19-2024 GASTRIN 103 pg/mL Normal 0-115 [facility] Comment on above: Order Comment: Test( s) 025443-Iwfcyd, Serum or Plasmawas developed and its performance characteristicsdetermined by [facility]. It has not been cleared or approvedby the Food and Drug Administration.N Result Comment: [facility] Iceotopeulite 2000 Immunochemiluminometric assay (ICMA)Values obtained with different assay methods or kits cannotbe used interchangeably. Results cannot be interpreted asabsolute evidence of the presence or absence of malignantdisease. Performed By: #### L 3300.0100, L503.6550, L2100.0000, L3300.1200, L3410.1000, L3410.0900, L3300.1800, L4500.0100, L3300.0960, L501.9520, L503.0105, L3100.1850, L509.6000, L3200.0500, L101.9900, L500.4050, L100.0100, L501.6710, L3410.2400, L3200.1100, L503.6075, L3100.3425, L504.2610, L3100.6900 ####[facility] [address] [place], [address] Haptoglobinon 02-19-2024 HAPTOGLOBIN 248 mg/dL Normal 33-278 [facility] Comment on above: Order Comment: Test( s) 959808-Fhtidw, Serum or Plasmawas developed and its performance characteristicsdetermined by [facility]. It has not been cleared or approvedby the Food and Drug Administration.N Result Comment: Perf ormed at: [facility] [address] [id number] Director: Sarah Means MD, Phone: [phone] at: [facility] [address] [id number] Director: Enrike Booker PhD, Phone: [phone] Performed By: #### L 3300.0100, L503.6550, L2100.0000, L3300.1200, L3410.1000, L3410.0900, L3300.1800, L4500.0100, L3300.0960, L501.9520, L503.0105, L3100.1850, L509.6000, L3200.0500, L101.9900, L500.4050, L100.0100, L501.6710, L3410.2400, L3200.1100, L503.6075, L3100.3425, L504.2610, L3100.6900 ####[facility] [address] [place], [place], [phone] MAHENDRA + Protein Elect, Serumon 02-19-2024 Albumin [Mass/Vol] 4.1 g/dL Normal 2.9-4.4 [facility] Comment on above: Order Comment: Test( s) 495314-Mjadwo, Serum or Plasmawas developed and its performance characteristicsdetermined by [facility]. It has not been cleared or approvedby the Food and Drug Administration.N Performed By: #### L 3300.0100, L503.6550, L2100.0000, L3300.1200, L3410.1000, L3410.0900, L3300.1800, L4500.0100, L3300.0960, L501.9520, L503.0105, L3100.1850, L509.6000, L3200.0500, L101.9900, L500.4050, L100.0100, L501.6710, L3410.2400, L3200.1100, L503.6075, L3100.3425, L504.2610, L3100.6900 ####[facility] [address] [facility] [address] [place], [place], [phone] Albumin/Globulin [Mass ratio] 1.5 {ratio} Normal 0.7-1.7 [facility] Comment on above: Order Comment: Test( s) 258002-Wevcvd, Serum or Plasmawas developed and its performance characteristicsdetermined by [facility]. It has not been cleared or approvedby the Food and Drug Administration.N Performed By: #### L 3300.0100, L503.6550, L2100.0000, L3300.1200, L3410.1000, L3410.0900, L3300.1800, L4500.0100, L3300.0960, L501.9520, L503.0105, L3100.1850, L509.6000, L3200.0500, L101.9900, L500.4050, L100.0100, L501.6710, L3410.2400, L3200.1100, L503.6075, L3100.3425, L504.2610, L3100.6900 ####[facility] [address] [place], [address] XPMYI-9-AQFL 0.2 g/dL Normal 0.0-0.4 [facility] Comment on above: Order Comment: Test( s) 465107-Hhuiqw, Serum or Plasmawas developed and its performance characteristicsdetermined by [facility]. It has not been cleared or approvedby the Food and Drug Administration.N Performed By: #### L 3300.0100, L503.6550, L2100.0000, L3300.1200, L3410.1000, L3410.0900, L3300.1800, L4500.0100, L3300.0960, L501.9520, L503.0105, L3100.1850, L509.6000, L3200.0500, L101.9900, L500.4050, L100.0100, L501.6710, L3410.2400, L3200.1100, L503.6075, L3100.3425, L504.2610, L3100.6900 ####[facility] [address] [place], [address] JJLBS-2-ITHW 1.0 g/dL Normal 0.4-1.0 [facility] Comment on above: Order Comment: Test( s) 843205-Tsejhq, Serum or Plasmawas developed and its performance characteristicsdetermined by [facility]. It has not been cleared or approvedby the Food and Drug Administration.N Performed By: #### L 3300.0100, L503.6550, L2100.0000, L3300.1200, L3410.1000, L3410.0900, L3300.1800, L4500.0100, L3300.0960, L501.9520, L503.0105, L3100.1850, L509.6000, L3200.0500, L101.9900, L500.4050, L100.0100, L501.6710, L3410.2400, L3200.1100, L503.6075, L3100.3425, L504.2610, L3100.6900 ####[facility] [address] [facility] [place], [place], [phone] BETA GLOBULIN 1.0 g/dL Normal 0.7-1.3 [facility] Comment on above: Order Comment: Test( s) 918126-Vzdffp, Serum or Plasmawas developed and its performance characteristicsdetermined by [facility]. It has not been cleared or approvedby the Food and Drug Administration.N Performed By: #### L 3300.0100, L503.6550, L2100.0000, L3300.1200, L3410.1000, L3410.0900, L3300.1800, L4500.0100, L3300.0960, L501.9520, L503.0105, L3100.1850, L509.6000, L3200.0500, L101.9900, L500.4050, L100.0100, L501.6710, L3410.2400, L3200.1100, L503.6075, L3100.3425, L504.2610, L3100.6900 ####[facility] [address] [facility] [place], [place], [phone] GAMMA GLOBULIN 0.7 g/dL Normal 0.4-1.8 [facility] Comment on above: Order Comment: Test( s) 618222-Blysap, Serum or Plasmawas developed and its performance characteristicsdetermined by [facility]. It has not been cleared or approvedby the Food and Drug Administration.N Performed By: #### L 3300.0100, L503.6550, L2100.0000, L3300.1200, L3410.1000, L3410.0900, L3300.1800, L4500.0100, L3300.0960, L501.9520, L503.0105, L3100.1850, L509.6000, L3200.0500, L101.9900, L500.4050, L100.0100, L501.6710, L3410.2400, L3200.1100, L503.6075, L3100.3425, L504.2610, L3100.6900 ####[facility] [address] [place], [place], [phone] Globulin (S) [Mass/Vol] 2.9 g/dL Normal 2.2-3.9 [facility] Comment on above: Order Comment: Test( s) 361525-Pboxqg, Serum or Plasmawas developed and its performance characteristicsdetermined by [facility]. It has not been cleared or approvedby the Food and Drug Administration.N Performed By: #### L 3300.0100, L503.6550, L2100.0000, L3300.1200, L3410.1000, L3410.0900, L3300.1800, L4500.0100, L3300.0960, L501.9520, L503.0105, L3100.1850, L509.6000, L3200.0500, L101.9900, L500.4050, L100.0100, L501.6710, L3410.2400, L3200.1100, L503.6075, L3100.3425, L504.2610, L3100.6900 ####[facility] [address] [place], [place], [phone] MAHENDRA RESULT,S Comment: Normal . [facility] Comment on above: Order Comment: Test( s) 729201-Asskvg, Serum or Plasmawas developed and its performance characteristicsdetermined by [facility]. It has not been cleared or approvedby the Food and Drug Administration.N Result Comment: Pres ence of monoclonal protein is unclear at this time. Suggestrepeat in 3 to 6 months if clinically indicated. Performed By: #### L 3300.0100, L503.6550, L2100.0000, L3300.1200, L3410.1000, L3410.0900, L3300.1800, L4500.0100, L3300.0960, L501.9520, L503.0105, L3100.1850, L509.6000, L3200.0500, L101.9900, L500.4050, L100.0100, L501.6710, L3410.2400, L3200.1100, L503.6075, L3100.3425, L504.2610, L3100.6900 ####[facility] [address] [facility] [place], [place], [address] IMMUNOGLOB A QN 98 mg/dL Normal 87-352 [facility] Comment on above: Order Comment: Test( s) 348206-Yckjae, Serum or Plasmawas developed and its performance characteristicsdetermined by [facility]. It has not been cleared or approvedby the Food and Drug Administration.N Performed By: #### L 3300.0100, L503.6550, L2100.0000, L3300.1200, L3410.1000, L3410.0900, L3300.1800, L4500.0100, L3300.0960, L501.9520, L503.0105, L3100.1850, L509.6000, L3200.0500, L101.9900, L500.4050, L100.0100, L501.6710, L3410.2400, L3200.1100, L503.6075, L3100.3425, L504.2610, L3100.6900 ####[facility] [address] [facility] [place], [place], [phone] IMMUNOGLOB M QN 62 mg/dL Normal 26-217 [facility] Comment on above: Order Comment: Test( s) 780802-Evfspl, Serum or Plasmawas developed and its performance characteristicsdetermined by [facility]. It has not been cleared or approvedby the Food and Drug Administration.N Performed By: #### L 3300.0100, L503.6550, L2100.0000, L3300.1200, L3410.1000, L3410.0900, L3300.1800, L4500.0100, L3300.0960, L501.9520, L503.0105, L3100.1850, L509.6000, L3200.0500, L101.9900, L500.4050, L100.0100, L501.6710, L3410.2400, L3200.1100, L503.6075, L3100.3425, L504.2610, L3100.6900 ####[facility] [address] [place], [place], [phone] M-Yariel Not Observed Normal Not Observed [facility] Comment on above: Order Comment: Test( s) 693418-Nerogm, Serum or Plasmawas developed and its performance characteristicsdetermined by [facility]. It has not been cleared or approvedby the Food and Drug Administration.N Performed By: #### L 3300.0100, L503.6550, L2100.0000, L3300.1200, L3410.1000, L3410.0900, L3300.1800, L4500.0100, L3300.0960, L501.9520, L503.0105, L3100.1850, L509.6000, L3200.0500, L101.9900, L500.4050, L100.0100, L501.6710, L3410.2400, L3200.1100, L503.6075, L3100.3425, L504.2610, L3100.6900 ####[facility] [address] [facility]. [place], [place], [phone] NOTE: Comment Normal . [facility] Comment on above: Order Comment: Test( s) 902060-Uwzpws, Serum or Plasmawas developed and its performance characteristicsdetermined by [facility]. It has not been cleared or approvedby the Food and Drug Administration.N Result Comment: Prot ein electrophoresis scan will follow via computer,mail, or whey department operator delivery. Performed By: #### L 3300.0100, L503.6550, L2100.0000, L3300.1200, L3410.1000, L3410.0900, L3300.1800, L4500.0100, L3300.0960, L501.9520, L503.0105, L3100.1850, L509.6000, L3200.0500, L101.9900, L500.4050, L100.0100, L501.6710, L3410.2400, L3200.1100, L503.6075, L3100.3425, L504.2610, L3100.6900 ####[facility] [address] [facility] [place], [place], [phone] Protein [Mass/Vol] 7.0 g/dL Normal 6.0-8.5 [facility] Comment on above: Order Comment: Test( s) 866706-Avlcig, Serum or Plasmawas developed and its performance characteristicsdetermined by [facility]. It has not been cleared or approvedby the Food and Drug Administration.N Performed By: #### L 3300.0100, L503.6550, L2100.0000, L3300.1200, L3410.1000, L3410.0900, L3300.1800, L4500.0100, L3300.0960, L501.9520, L503.0105, L3100.1850, L509.6000, L3200.0500, L101.9900, L500.4050, L100.0100, L501.6710, L3410.2400, L3200.1100, L503.6075, L3100.3425, L504.2610, L3100.6900 ####[facility] [address] [facility] [place], [place], [phone] IgG Subclasseson 02-19-2024 IgG, SUBCLASS 1 603 mg/dL Normal 248-810 [facility] Comment on above: Order Comment: Test( s) 249768-Ozsjsx, Serum or Plasmawas developed and its performance characteristicsdetermined by [facility]. It has not been cleared or approvedby the Food and Drug Administration.N Performed By: #### L 3300.0100, L503.6550, L2100.0000, L3300.1200, L3410.1000, L3410.0900, L3300.1800, L4500.0100, L3300.0960, L501.9520, L503.0105, L3100.1850, L509.6000, L3200.0500, L101.9900, L500.4050, L100.0100, L501.6710, L3410.2400, L3200.1100, L503.6075, L3100.3425, L504.2610, L3100.6900 ####[facility] [address] [facility] [place], [place], [phone] IgG, SUBCLASS 2 44 mg/dL Low 130-555 [facility] Comment on above: Order Comment: Test( s) 478974-Yylrgo, Serum or Plasmawas developed and its performance characteristicsdetermined by [facility]. It has not been cleared or approvedby the Food and Drug Administration.N Performed By: #### L 3300.0100, L503.6550, L2100.0000, L3300.1200, L3410.1000, L3410.0900, L3300.1800, L4500.0100, L3300.0960, L501.9520, L503.0105, L3100.1850, L509.6000, L3200.0500, L101.9900, L500.4050, L100.0100, L501.6710, L3410.2400, L3200.1100, L503.6075, L3100.3425, L504.2610, L3100.6900 ####[facility] [address] [facility]. [place], [place], [phone] IgG, SUBCLASS 3 15 mg/dL Normal 15-102 [facility] Comment on above: Order Comment: Test( s) 484691-Elddae, Serum or Plasmawas developed and its performance characteristicsdetermined by [facility]. It has not been cleared or approvedby the Food and Drug Administration.N Performed By: #### L 3300.0100, L503.6550, L2100.0000, L3300.1200, L3410.1000, L3410.0900, L3300.1800, L4500.0100, L3300.0960, L501.9520, L503.0105, L3100.1850, L509.6000, L3200.0500, L101.9900, L500.4050, L100.0100, L501.6710, L3410.2400, L3200.1100, L503.6075, L3100.3425, L504.2610, L3100.6900 ####[facility] [address] [place], [address] IgG, SUBCLASS 4 1 mg/dL Low 2-96 [facility] Comment on above: Order Comment: Test( s) 868611-Vpdbwn, Serum or Plasmawas developed and its performance characteristicsdetermined by [facility]. It has not been cleared or approvedby the Food and Drug Administration.N Performed By: #### L 3300.0100, L503.6550, L2100.0000, L3300.1200, L3410.1000, L3410.0900, L3300.1800, L4500.0100, L3300.0960, L501.9520, L503.0105, L3100.1850, L509.6000, L3200.0500, L101.9900, L500.4050, L100.0100, L501.6710, L3410.2400, L3200.1100, L503.6075, L3100.3425, L504.2610, L3100.6900 ####[facility] [address] [facility] [place], [place], [phone] IGG,QUANT 817 mg/dL Normal 586-1602 [facility] Comment on above: Order Comment: Test( s) 611452-Hzrlln, Serum or Plasmawas developed and its performance characteristicsdetermined by [facility]. It has not been cleared or approvedby the Food and Drug Administration.N Performed By: #### L 3300.0100, L503.6550, L2100.0000, L3300.1200, L3410.1000, L3410.0900, L3300.1800, L4500.0100, L3300.0960, L501.9520, L503.0105, L3100.1850, L509.6000, L3200.0500, L101.9900, L500.4050, L100.0100, L501.6710, L3410.2400, L3200.1100, L503.6075, L3100.3425, L504.2610, L3100.6900 ####[facility] [address] [place], [place], [address] Immunoglobulins G/A/M/Lex IMMUNOGLOB E QN 20 IU/mL Normal 6-495 [facility] Comment on above: Order Comment: Test( s) 455997-Wgvwdw, Serum or Plasmawas developed and its performance characteristicsdetermined by [facility]. It has not been cleared or approvedby the Food and Drug Administration.N Performed By: #### L 3300.0100, L503.6550, L2100.0000, L3300.1200, L3410.1000, L3410.0900, L3300.1800, L4500.0100, L3300.0960, L501.9520, L503.0105, L3100.1850, L509.6000, L3200.0500, L101.9900, L500.4050, L100.0100, L501.6710, L3410.2400, L3200.1100, L503.6075, L3100.3425, L504.2610, L3100.6900 ####[facility] [address] [facility] [address] [place], [place], [address] Intrinsic Factor Abon 2023 INTRINS FACT AB 1.1 AU/mL Normal 0.0-1.1 [facility] Comment on above: Order Comment: Test( s) 536834-Jgekuf, Serum or Plasmawas developed and its performance characteristicsdetermined by [facility]. It has not been cleared or approvedby the Food and Drug Administration.N Performed By: #### L 3300.0100, L503.6550, L2100.0000, L3300.1200, L3410.1000, L3410.0900, L3300.1800, L4500.0100, L3300.0960, L501.9520, L503.0105, L3100.1850, L509.6000, L3200.0500, L101.9900, L500.4050, L100.0100, L501.6710, L3410.2400, L3200.1100, L503.6075, L3100.3425, L504.2610, L3100.6900 ####[facility] [address] [facility] [place], [place], [phone] L2100.0000on 02-19-2024 ACCA 3 units Normal 0-90 [facility] Comment on above: Order Comment: Test( s) 953520-Znuuws, Serum or Plasmawas developed and its performance characteristicsdetermined by [facility]. It has not been cleared or approvedby the Food and Drug Administration.N Result Comment: Nega tive: <80 Equivocal: 80-90 Positive: >90 Performed By: #### L 3300.0100, L503.6550, L2100.0000, L3300.1200, L3410.1000, L3410.0900, L3300.1800, L4500.0100, L3300.0960, L501.9520, L503.0105, L3100.1850, L509.6000, L3200.0500, L101.9900, L500.4050, L100.0100, L501.6710, L3410.2400, L3200.1100, L503.6075, L3100.3425, L504.2610, L3100.6900 ####[facility] [address] [facility] [place], [place], [phone] ALCA 4 units Normal 0-60 [facility] Comment on above: Order Comment: Test( s) 230328-Memkur, Serum or Plasmawas developed and its performance characteristicsdetermined by [facility]. It has not been cleared or approvedby the Food and Drug Administration.N Result Comment: Nega tive:<55 Equivocal: 55-60 Positive: >60 Performed By: #### L 3300.0100, L503.6550, L2100.0000, L3300.1200, L3410.1000, L3410.0900, L3300.1800, L4500.0100, L3300.0960, L501.9520, L503.0105, L3100.1850, L509.6000, L3200.0500, L101.9900, L500.4050, L100.0100, L501.6710, L3410.2400, L3200.1100, L503.6075, L3100.3425, L504.2610, L3100.6900 ####[facility] [address] [place], [address] AMCA 6 units Normal 0-100 [facility] Comment on above: Order Comment: Test( s) 412364-Outvda, Serum or Plasmawas developed and its performance characteristicsdetermined by [facility]. It has not been cleared or approvedby the Food and Drug Administration.N Result Comment: Nega tive: <90 Equivocal: 90-100 Positive: >100 This test was developed and its performance characteristics determined by [facility]. It has not been cleared or approved by the Food and Drug Administration. The FDA has determined that such clearance or approval is not necessary. Performed By: #### L 3300.0100, L503.6550, L2100.0000, L3300.1200, L3410.1000, L3410.0900, L3300.1800, L4500.0100, L3300.0960, L501.9520, L503.0105, L3100.1850, L509.6000, L3200.0500, L101.9900, L500.4050, L100.0100, L501.6710, L3410.2400, L3200.1100, L503.6075, L3100.3425, L504.2610, L3100.6900 ####[facility] [address] [place], [address] Atypical pANCA Negative Normal Negative [facility] Comment on above: Order Comment: Test( s) 921582-Tmgdlj, Serum or Plasmawas developed and its performance characteristicsdetermined by [facility]. It has not been cleared or approvedby the Food and Drug Administration.N Performed By: #### L 3300.0100, L503.6550, L2100.0000, L3300.1200, L3410.1000, L3410.0900, L3300.1800, L4500.0100, L3300.0960, L501.9520, L503.0105, L3100.1850, L509.6000, L3200.0500, L101.9900, L500.4050, L100.0100, L501.6710, L3410.2400, L3200.1100, L503.6075, L3100.3425, L504.2610, L3100.6900 ####[facility] [address] [place], [address] COMMENT Comment Normal . [facility] Comment on above: Order Comment: Test( s) 128740-Wusbdg, Serum or Plasmawas developed and its performance characteristicsdetermined by [facility]. It has not been cleared or approvedby the Food and Drug Administration.N Result Comment: Darling andrés is not suggestive of Inflammatory Bowel Disease Performed By: #### L 3300.0100, L503.6550, L2100.0000, L3300.1200, L3410.1000, L3410.0900, L3300.1800, L4500.0100, L3300.0960, L501.9520, L503.0105, L3100.1850, L509.6000, L3200.0500, L101.9900, L500.4050, L100.0100, L501.6710, L3410.2400, L3200.1100, L503.6075, L3100.3425, L504.2610, L3100.6900 ####[facility] [address] [place], [address] Lizette 10 units Normal 0-50 [facility] Comment on above: Order Comment: Test( s) 258167-Tdvjht, Serum or Plasmawas developed and its performance characteristicsdetermined by [facility]. It has not been cleared or approvedby the Food and Drug Administration.N Result Comment: Nega tive: <45 Equivocal: 45-50 Positive: >50 Performed By: #### L 3300.0100, L503.6550, L2100.0000, L3300.1200, L3410.1000, L3410.0900, L3300.1800, L4500.0100, L3300.0960, L501.9520, L503.0105, L3100.1850, L509.6000, L3200.0500, L101.9900, L500.4050, L100.0100, L501.6710, L3410.2400, L3200.1100, L503.6075, L3100.3425, L504.2610, L3100.6900 ####[facility] [address] [facility] [place], [place], [phone] Lupus Anticoagulant Compon 1 aPTT Coag (Bld) [Time] 26.7 s Normal 0.0-43.[address] [facility] Comment on above: Order Comment: Test( s) 757595-Gsyqre, Serum or Plasmawas developed and its performance characteristicsdetermined by [facility]. It has not been cleared or approvedby the Food and Drug Administration.N Performed By: #### L 3300.0100, L503.6550, L2100.0000, L3300.1200, L3410.1000, L3410.0900, L3300.1800, L4500.0100, L3300.0960, L501.9520, L503.0105, L3100.1850, L509.6000, L3200.0500, L101.9900, L500.4050, L100.0100, L501.6710, L3410.2400, L3200.1100, L503.6075, L3100.3425, L504.2610, L3100.6900 ####[facility] [address] [place], [place], [phone] DILUTE PT (dPT) 33.8 sec Normal 0.0-47.6 [facility] Comment on above: Order Comment: Test( s) 394944-Nrxksd, Serum or Plasmawas developed and its performance characteristicsdetermined by [facility]. It has not been cleared or approvedby the Food and Drug Administration.N Performed By: #### L 3300.0100, L503.6550, L2100.0000, L3300.1200, L3410.1000, L3410.0900, L3300.1800, L4500.0100, L3300.0960, L501.9520, L503.0105, L3100.1850, L509.6000, L3200.0500, L101.9900, L500.4050, L100.0100, L501.6710, L3410.2400, L3200.1100, L503.6075, L3100.3425, L504.2610, L3100.6900 ####[facility] [address] [place], [address] dPT Conf. Ratio 1.21 Ratio Normal 0.00-1.34 [facility] Comment on above: Order Comment: Test( s) [id number], Serum or Plasmawas developed and its performance characteristicsdetermined by [employer]. It has not been cleared or approvedby the Food and Drug Administration.N Performed By: #### L 3300.0100, L503.6550, L2100.0000, L3300.1200, L3410.1000, L3410.0900, L3300.1800, L4500.0100, L3300.0960, L501.9520, L503.0105, L3100.1850, L509.6000, L3200.0500, L101.9900, L500.4050, L100.0100, L501.6710, L3410.2400, L3200.1100, L503.6075, L3100.3425, L504.2610, L3100.6900 ####[facility] [id number] [place], [address] DRVVT 32.4 sec Normal 0.0-47.0 [facility] Comment on above: Order Comment: Test( s) [id number], Serum or Plasmawas developed and its performance characteristicsdetermined by [employer]. It has not been cleared or approvedby the Food and Drug Administration.N Performed By: #### L 3300.0100, L503.6550, L2100.0000, L3300.1200, L3410.1000, L3410.0900, L3300.1800, L4500.0100, L3300.0960, L501.9520, L503.0105, L3100.1850, L509.6000, L3200.0500, L101.9900, L500.4050, L100.0100, L501.6710, L3410.2400, L3200.1100, L503.6075, L3100.3425, L504.2610, L3100.6900 ####[facility] [address] [place], [address] Interpretation Comment: Normal . [facility] Comment on above: Order Comment: Test( s) [id number]-[id number], Serum or Plasmawas developed and its performance characteristicsdetermined by [employer]. It has not been cleared or approvedby the Food and Drug Administration.N Result Comment: No l upus anticoagulant was detected. Performed By: #### L 3300.0100, L503.6550, L2100.0000, L3300.1200, L3410.1000, L3410.0900, L3300.1800, L4500.0100, L3300.0960, L501.9520, L503.0105, L3100.1850, L509.6000, L3200.0500, L101.9900, L500.4050, L100.0100, L501.6710, L3410.2400, L3200.1100, L503.6075, L3100.3425, L504.2610, L3100.6900 ####[facility] [address] [place], [address] THROMBIN TIME 15.4 sec Normal 0.0-23.0 [facility] Comment on above: Order Comment: Test( s) [id number], Serum or Plasmawas developed and its performance characteristicsdetermined by [employer]. It has not been cleared or approvedby the Food and Drug Administration.N Performed By: #### L 3300.0100, L503.6550, L2100.0000, L3300.1200, L3410.1000, L3410.0900, L3300.1800, L4500.0100, L3300.0960, L501.9520, L503.0105, L3100.1850, L509.6000, L3200.0500, L101.9900, L500.4050, L100.0100, L501.6710, L3410.2400, L3200.1100, L503.6075, L3100.3425, L504.2610, L3100.6900 ####[facility] [address] [facility] [address]. [place], [place], [address] Vitamin D 1,25-Dihydroxyon 1 VIT D 1,25 DIHY 39.6 pg/mL Normal 24.8-81.5 [facility] Comment on above: Result Comment: Perf ormed at: [facility] [address] [id number] Director: Sarah Means MD, Phone: [phone] Performed By: #### L 3300.0100, L503.6550, L2100.0000, L3300.1200, L3410.1000, L3410.0900, L3300.1800, L4500.0100, L3300.0960, L501.9520, L503.0105, L3100.1850, L509.6000, L3200.0500, L101.9900, L500.4050, L100.0100, L501.6710, L3410.2400, L3200.1100, L503.6075, L3100.3425, L504.2610, L3100.6900 ####[facility] [address] [place], [place], [address] M7400.3302on 02-18-2024 M7400.3302 Normal [facility] Comment on above: Performed By: #### M 100.6796, M100.637, M7400.3302, M600.5000 ####[facility] [address] [place], [address] Ova and Parasites 8623on OP Normal [facility] Comment on above: Performed By: #### M 100.6796, M100.637, M7400.3302, M600.5000 ####[facility] [address] [place], [address] CBC W/Diff, Automatedon 02-04 Absolute Lymph 1.35 X10 3/uL Normal 0.83-4.51 [facility] Comment on above: Performed By: #### L 3300.0100, L503.6550, L2100.0000, L3300.1200, L3410.1000, L3410.0900, L3300.1800, L4500.0100, L3300.0960, L501.9520, L503.0105, L3100.1850, L509.6000, L3200.0500, L101.9900, L500.4050, L100.0100, L501.6710, L3410.2400, L3200.1100, L503.6075, L3100.3425, L504.2610, L3100.6900 ####[facility] [address] [place], [address] Absolute Neut 5.7 X10 3/uL Normal 2.0-7.7 [facility] Comment on above: Performed By: #### L 3300.0100, L503.6550, L2100.0000, L3300.1200, L3410.1000, L3410.0900, L3300.1800, L4500.0100, L3300.0960, L501.9520, L503.0105, L3100.1850, L509.6000, L3200.0500, L101.9900, L500.4050, L100.0100, L501.6710, L3410.2400, L3200.1100, L503.6075, L3100.3425, L504.2610, L3100.6900 ####[facility] [address] [facility] [place], [place], [phone](652) Basophils/100 WBC (Bld) 0.7 % Normal 0-1 [facility] Comment on above: Performed By: #### L 3300.0100, L503.6550, L2100.0000, L3300.1200, L3410.1000, L3410.0900, L3300.1800, L4500.0100, L3300.0960, L501.9520, L503.0105, L3100.1850, L509.6000, L3200.0500, L101.9900, L500.4050, L100.0100, L501.6710, L3410.2400, L3200.1100, L503.6075, L3100.3425, L504.2610, L3100.6900 ####[facility] [address] [facility] [place], [place], [phone](504) Eosinophils/100 WBC (Bld) 1.1 % Normal 0-5 [facility] Comment on above: Performed By: #### L 3300.0100, L503.6550, L2100.0000, L3300.1200, L3410.1000, L3410.0900, L3300.1800, L4500.0100, L3300.0960, L501.9520, L503.0105, L3100.1850, L509.6000, L3200.0500, L101.9900, L500.4050, L100.0100, L501.6710, L3410.2400, L3200.1100, L503.6075, L3100.3425, L504.2610, L3100.6900 ####[facility] [address] [facility] [place], [place], [phone] Erythrocyte distribution width (RBC) [Ratio] 12.9 % Normal 11.6-14.6 [facility] Comment on above: Performed By: #### L 3300.0100, L503.6550, L2100.0000, L3300.1200, L3410.1000, L3410.0900, L3300.1800, L4500.0100, L3300.0960, L501.9520, L503.0105, L3100.1850, L509.6000, L3200.0500, L101.9900, L500.4050, L100.0100, L501.6710, L3410.2400, L3200.1100, L503.6075, L3100.3425, L504.2610, L3100.6900 ####[facility] [address] [facility] [place], [place], [phone] Hematocrit (Bld) [Volume fraction] 43.2 % Normal 37-47 [facility] Comment on above: Performed By: #### L 3300.0100, L503.6550, L2100.0000, L3300.1200, L3410.1000, L3410.0900, L3300.1800, L4500.0100, L3300.0960, L501.9520, L503.0105, L3100.1850, L509.6000, L3200.0500, L101.9900, L500.4050, L100.0100, L501.6710, L3410.2400, L3200.1100, L503.6075, L3100.3425, L504.2610, L3100.6900 ####[facility] [address] [facility] [place], [place], [phone] Hemoglobin (Bld) [Mass/Vol] 14.3 g/dL Normal 12.0-15.0 [facility] Comment on above: Performed By: #### L 3300.0100, L503.6550, L2100.0000, L3300.1200, L3410.1000, L3410.0900, L3300.1800, L4500.0100, L3300.0960, L501.9520, L503.0105, L3100.1850, L509.6000, L3200.0500, L101.9900, L500.4050, L100.0100, L501.6710, L3410.2400, L3200.1100, L503.6075, L3100.3425, L504.2610, L3100.6900 ####[facility] [address] [facility] [place], [place], [phone](487) IG% 0.300 Normal 0.0-0.9 [facility] Comment on above: Result Comment: IG% - Immature Granulocytes (promyelocytes, myelocytes andmetamyelocytes) > 1% indicates that a LEFT SHIFT is Present. Performed By: #### L 3300.0100, L503.6550, L2100.0000, L3300.1200, L3410.1000, L3410.0900, L3300.1800, L4500.0100, L3300.0960, L501.9520, L503.0105, L3100.1850, L509.6000, L3200.0500, L101.9900, L500.4050, L100.0100, L501.6710, L3410.2400, L3200.1100, L503.6075, L3100.3425, L504.2610, L3100.6900 ####[facility] [address] [facility] [place], [place], [phone] Lymphocytes/100 WBC (Bld) 17.8 % Low 19-41 [facility] Comment on above: Performed By: #### L 3300.0100, L503.6550, L2100.0000, L3300.1200, L3410.1000, L3410.0900, L3300.1800, L4500.0100, L3300.0960, L501.9520, L503.0105, L3100.1850, L509.6000, L3200.0500, L101.9900, L500.4050, L100.0100, L501.6710, L3410.2400, L3200.1100, L503.6075, L3100.3425, L504.2610, L3100.6900 ####[facility] [address] [place], [address] MCH (RBC) [Entitic mass] 29.3 pg Normal 27.0-32.0 [facility] Comment on above: Performed By: #### L 3300.0100, L503.6550, L2100.0000, L3300.1200, L3410.1000, L3410.0900, L3300.1800, L4500.0100, L3300.0960, L501.9520, L503.0105, L3100.1850, L509.6000, L3200.0500, L101.9900, L500.4050, L100.0100, L501.6710, L3410.2400, L3200.1100, L503.6075, L3100.3425, L504.2610, L3100.6900 ####[facility] [address] [place], [address] MCHC (RBC) [Mass/Vol] 33.1 g/dL Normal 32-36 [facility] Comment on above: Performed By: #### L 3300.0100, L503.6550, L2100.0000, L3300.1200, L3410.1000, L3410.0900, L3300.1800, L4500.0100, L3300.0960, L501.9520, L503.0105, L3100.1850, L509.6000, L3200.0500, L101.9900, L500.4050, L100.0100, L501.6710, L3410.2400, L3200.1100, L503.6075, L3100.3425, L504.2610, L3100.6900 ####[facility] [address] [place], [address] MCV (RBC) [Entitic vol] 88.5 fL Normal 81-99 [facility] Comment on above: Performed By: #### L 3300.0100, L503.6550, L2100.0000, L3300.1200, L3410.1000, L3410.0900, L3300.1800, L4500.0100, L3300.0960, L501.9520, L503.0105, L3100.1850, L509.6000, L3200.0500, L101.9900, L500.4050, L100.0100, L501.6710, L3410.2400, L3200.1100, L503.6075, L3100.3425, L504.2610, L3100.6900 ####[facility] [address] [place], [address] Monocytes/100 WBC (Bld) 5.4 % Normal 0-10 [facility] Comment on above: Performed By: #### L 3300.0100, L503.6550, L2100.0000, L3300.1200, L3410.1000, L3410.0900, L3300.1800, L4500.0100, L3300.0960, L501.9520, L503.0105, L3100.1850, L509.6000, L3200.0500, L101.9900, L500.4050, L100.0100, L501.6710, L3410.2400, L3200.1100, L503.6075, L3100.3425, L504.2610, L3100.6900 ####[facility] [address] [facility] [place], [address] Neutrophils/100 WBC (Bld) 74.7 % High 47-70 [facility] Comment on above: Performed By: #### L 3300.0100, L503.6550, L2100.0000, L3300.1200, L3410.1000, L3410.0900, L3300.1800, L4500.0100, L3300.0960, L501.9520, L503.0105, L3100.1850, L509.6000, L3200.0500, L101.9900, L500.4050, L100.0100, L501.6710, L3410.2400, L3200.1100, L503.6075, L3100.3425, L504.2610, L3100.6900 ####[facility] [address] [place], [place], [phone](035) Nucleated RBC (Bld) [#/Vol] 0 10*3/uL Normal 0-5 [facility] Comment on above: Performed By: #### L 3300.0100, L503.6550, L2100.0000, L3300.1200, L3410.1000, L3410.0900, L3300.1800, L4500.0100, L3300.0960, L501.9520, L503.0105, L3100.1850, L509.6000, L3200.0500, L101.9900, L500.4050, L100.0100, L501.6710, L3410.2400, L3200.1100, L503.6075, L3100.3425, L504.2610, L3100.6900 ####[facility] [address] [facility] [place], [place], [phone](701) Platelet mean volume (Bld) [Entitic vol] 10.1 fL Normal 6.2-12.0 [facility] Comment on above: Performed By: #### L 3300.0100, L503.6550, L2100.0000, L3300.1200, L3410.1000, L3410.0900, L3300.1800, L4500.0100, L3300.0960, L501.9520, L503.0105, L3100.1850, L509.6000, L3200.0500, L101.9900, L500.4050, L100.0100, L501.6710, L3410.2400, L3200.1100, L503.6075, L3100.3425, L504.2610, L3100.6900 ####[facility] [address] [place], [place], [phone](542) Platelets (Bld) [#/Vol] 450 10*3/uL Normal 150-450 [facility] Comment on above: Performed By: #### L 3300.0100, L503.6550, L2100.0000, L3300.1200, L3410.1000, L3410.0900, L3300.1800, L4500.0100, L3300.0960, L501.9520, L503.0105, L3100.1850, L509.6000, L3200.0500, L101.9900, L500.4050, L100.0100, L501.6710, L3410.2400, L3200.1100, L503.6075, L3100.3425, L504.2610, L3100.6900 ####[facility] [address] [facility] [address] [place], [place], [address] RBC (Bld) [#/Vol] 4.88 10*6/uL Normal 4.2-5.4 [facility] Comment on above: Performed By: #### L 3300.0100, L503.6550, L2100.0000, L3300.1200, L3410.1000, L3410.0900, L3300.1800, L4500.0100, L3300.0960, L501.9520, L503.0105, L3100.1850, L509.6000, L3200.0500, L101.9900, L500.4050, L100.0100, L501.6710, L3410.2400, L3200.1100, L503.6075, L3100.3425, L504.2610, L3100.6900 ####[facility] [address] [place], [place], [address] RDW SD 41.8 fl Normal 35.1-43.9 [facility] Comment on above: Performed By: #### L 3300.0100, L503.6550, L2100.0000, L3300.1200, L3410.1000, L3410.0900, L3300.1800, L4500.0100, L3300.0960, L501.9520, L503.0105, L3100.1850, L509.6000, L3200.0500, L101.9900, L500.4050, L100.0100, L501.6710, L3410.2400, L3200.1100, L503.6075, L3100.3425, L504.2610, L3100.6900 ####[facility] [address] [place], [place], [phone] WBC (Bld) [#/Vol] 7.6 10*3/uL Normal 4.4-11.0 [facility] Comment on above: Performed By: #### L 3300.0100, L503.6550, L2100.0000, L3300.1200, L3410.1000, L3410.0900, L3300.1800, L4500.0100, L3300.0960, L501.9520, L503.0105, L3100.1850, L509.6000, L3200.0500, L101.9900, L500.4050, L100.0100, L501.6710, L3410.2400, L3200.1100, L503.6075, L3100.3425, L504.2610, L3100.6900 ####[facility] [address] [facility] [place], [place], [phone] CORTISOL SERUMon 02-15-2024 CORTISOL 5.20 ug/dL Normal 3.44-22.45 [facility] Comment on above: Result Comment: Adul t (AM) 5.27 - 22.45 ug/dL Adult (PM) 3.44 - 16.76 ug/dL Performed By: #### L 3300.0100, L503.6550, L2100.0000, L3300.1200, L3410.1000, L3410.0900, L3300.1800, L4500.0100, L3300.0960, L501.9520, L503.0105, L3100.1850, L509.6000, L3200.0500, L101.9900, L500.4050, L100.0100, L501.6710, L3410.2400, L3200.1100, L503.6075, L3100.3425, L504.2610, L3100.6900 ####[facility] [address] [place], [place], [phone] CRPon 02-15-2024 C-REACTIVE PROT 3.67 mg/L High 0.0-3.0 [facility] Comment on above: Order Comment: 1 Result Comment: C-Re active Protein (CRP) provides useful information for thediagnosis, therapy and monitoring of inflammatory processesand associated diseases. For the evaluation of Relative Riskfor Cardiovascular Disease, a High Sensitivity CRP (HSCRP)should be ordered. Performed By: #### L 3300.0100, L503.6550, L2100.0000, L3300.1200, L3410.1000, L3410.0900, L3300.1800, L4500.0100, L3300.0960, L501.9520, L503.0105, L3100.1850, L509.6000, L3200.0500, L101.9900, L500.4050, L100.0100, L501.6710, L3410.2400, L3200.1100, L503.6075, L3100.3425, L504.2610, L3100.6900 ####[facility] [address] [place], [place], [phone] Comprehensive Metabolic Prof ilon 02-15-2024 Albumin [Mass/Vol] 3.9 g/dL Normal 3.2-5.0 [facility] Comment on above: Order Comment: 1 Performed By: #### L 3300.0100, L503.6550, L2100.0000, L3300.1200, L3410.1000, L3410.0900, L3300.1800, L4500.0100, L3300.0960, L501.9520, L503.0105, L3100.1850, L509.6000, L3200.0500, L101.9900, L500.4050, L100.0100, L501.6710, L3410.2400, L3200.1100, L503.6075, L3100.3425, L504.2610, L3100.6900 ####[facility] [address] [place], [place], [phone] Albumin/Globulin [Mass ratio] 1.0 {ratio} Normal 0.9-2.4 [facility] Comment on above: Order Comment: 1 Performed By: #### L 3300.0100, L503.6550, L2100.0000, L3300.1200, L3410.1000, L3410.0900, L3300.1800, L4500.0100, L3300.0960, L501.9520, L503.0105, L3100.1850, L509.6000, L3200.0500, L101.9900, L500.4050, L100.0100, L501.6710, L3410.2400, L3200.1100, L503.6075, L3100.3425, L504.2610, L3100.6900 ####[facility] [address] [place], [place], [phone] ALK P 112 U/L Normal 45-117 [facility] Comment on above: Order Comment: 1 Performed By: #### L 3300.0100, L503.6550, L2100.0000, L3300.1200, L3410.1000, L3410.0900, L3300.1800, L4500.0100, L3300.0960, L501.9520, L503.0105, L3100.1850, L509.6000, L3200.0500, L101.9900, L500.4050, L100.0100, L501.6710, L3410.2400, L3200.1100, L503.6075, L3100.3425, L504.2610, L3100.6900 ####[facility] [address] [place], [place], [phone] ALT [Catalytic activity/Vol] 69 U/L High 13-56 [facility] Comment on above: Order Comment: 1 Performed By: #### L 3300.0100, L503.6550, L2100.0000, L3300.1200, L3410.1000, L3410.0900, L3300.1800, L4500.0100, L3300.0960, L501.9520, L503.0105, L3100.1850, L509.6000, L3200.0500, L101.9900, L500.4050, L100.0100, L501.6710, L3410.2400, L3200.1100, L503.6075, L3100.3425, L504.2610, L3100.6900 ####[facility] [address] [place], [place], [phone] AST [Catalytic activity/Vol] 36 U/L Normal 15-37 [facility] Comment on above: Order Comment: 1 Performed By: #### L 3300.0100, L503.6550, L2100.0000, L3300.1200, L3410.1000, L3410.0900, L3300.1800, L4500.0100, L3300.0960, L501.9520, L503.0105, L3100.1850, L509.6000, L3200.0500, L101.9900, L500.4050, L100.0100, L501.6710, L3410.2400, L3200.1100, L503.6075, L3100.3425, L504.2610, L3100.6900 ####[facility] [address] [place], [place], [phone] Bilirubin [Mass/Vol] 0.40 mg/dL Normal 0.20-1.00 [facility] Comment on above: Order Comment: 1 Result Comment: For patients on eltrombopag therapy, use of Dimension Perry TBIL is not recommended. Performed By: #### L 3300.0100, L503.6550, L2100.0000, L3300.1200, L3410.1000, L3410.0900, L3300.1800, L4500.0100, L3300.0960, L501.9520, L503.0105, L3100.1850, L509.6000, L3200.0500, L101.9900, L500.4050, L100.0100, L501.6710, L3410.2400, L3200.1100, L503.6075, L3100.3425, L504.2610, L3100.6900 ####[facility] [address] [place], [place], [phone](349) BUN/CRE 14.2 RATIO Normal 10-20 [facility] Comment on above: Order Comment: 1 Performed By: #### L 3300.0100, L503.6550, L2100.0000, L3300.1200, L3410.1000, L3410.0900, L3300.1800, L4500.0100, L3300.0960, L501.9520, L503.0105, L3100.1850, L509.6000, L3200.0500, L101.9900, L500.4050, L100.0100, L501.6710, L3410.2400, L3200.1100, L503.6075, L3100.3425, L504.2610, L3100.6900 ####[facility] [address] [place], [place], [phone](342) CA,Total 9.4 mg/dL Normal 8.5-10.1 [facility] Comment on above: Order Comment: 1 Performed By: #### L 3300.0100, L503.6550, L2100.0000, L3300.1200, L3410.1000, L3410.0900, L3300.1800, L4500.0100, L3300.0960, L501.9520, L503.0105, L3100.1850, L509.6000, L3200.0500, L101.9900, L500.4050, L100.0100, L501.6710, L3410.2400, L3200.1100, L503.6075, L3100.3425, L504.2610, L3100.6900 ####[facility] [address] [place], [place], [phone] Chloride [Moles/Vol] 108 mmol/L High 98-107 [facility] Comment on above: Order Comment: 1 Performed By: #### L 3300.0100, L503.6550, L2100.0000, L3300.1200, L3410.1000, L3410.0900, L3300.1800, L4500.0100, L3300.0960, L501.9520, L503.0105, L3100.1850, L509.6000, L3200.0500, L101.9900, L500.4050, L100.0100, L501.6710, L3410.2400, L3200.1100, L503.6075, L3100.3425, L504.2610, L3100.6900 ####[facility] [address] [place], [address] CO2 [Moles/Vol] 21.0 mmol/L Normal 21.0-32.0 [facility] Comment on above: Order Comment: 1 Performed By: #### L 3300.0100, L503.6550, L2100.0000, L3300.1200, L3410.1000, L3410.0900, L3300.1800, L4500.0100, L3300.0960, L501.9520, L503.0105, L3100.1850, L509.6000, L3200.0500, L101.9900, L500.4050, L100.0100, L501.6710, L3410.2400, L3200.1100, L503.6075, L3100.3425, L504.2610, L3100.6900 ####[facility] [address] [place], [address] Creatinine [Mass/Vol] 0.99 mg/dL Normal 0.55-1.02 [facility] Comment on above: Order Comment: 1 Result Comment: The validity of the calculated GFR GFRAA in patients over70 years has not been determined. Clinical correlation isessential. Performed By: #### L 3300.0100, L503.6550, L2100.0000, L3300.1200, L3410.1000, L3410.0900, L3300.1800, L4500.0100, L3300.0960, L501.9520, L503.0105, L3100.1850, L509.6000, L3200.0500, L101.9900, L500.4050, L100.0100, L501.6710, L3410.2400, L3200.1100, L503.6075, L3100.3425, L504.2610, L3100.6900 ####[facility] [address] [place], [place], [id number] EST GFR - AA 83 mL/min Normal >60 [facility] Comment on above: Order Comment: 1 Result Comment: Afri can Togolese GFR Calc Performed By: #### L 3300.0100, L503.6550, L2100.0000, L3300.1200, L3410.1000, L3410.0900, L3300.1800, L4500.0100, L3300.0960, L501.9520, L503.0105, L3100.1850, L509.6000, L3200.0500, L101.9900, L500.4050, L100.0100, L501.6710, L3410.2400, L3200.1100, L503.6075, L3100.3425, L504.2610, L3100.6900 ####[facility] [address] [place], [place], [address] GAP 9 Normal 5-15 [facility] Comment on above: Order Comment: 1 Performed By: #### L 3300.0100, L503.6550, L2100.0000, L3300.1200, L3410.1000, L3410.0900, L3300.1800, L4500.0100, L3300.0960, L501.9520, L503.0105, L3100.1850, L509.6000, L3200.0500, L101.9900, L500.4050, L100.0100, L501.6710, L3410.2400, L3200.1100, L503.6075, L3100.3425, L504.2610, L3100.6900 ####[facility] [address] [facility] [place], [place], [id number] GFR/1.73 sq M.predicted among non-blacks MDRD (S/P/Bld) [Vol rate/Area] 69 mL/min/{1.73_m2} Normal >60 [facility] Comment on above: Order Comment: 1 Result Comment: Non- GFR Calc Performed By: #### L 3300.0100, L503.6550, L2100.0000, L3300.1200, L3410.1000, L3410.0900, L3300.1800, L4500.0100, L3300.0960, L501.9520, L503.0105, L3100.1850, L509.6000, L3200.0500, L101.9900, L500.4050, L100.0100, L501.6710, L3410.2400, L3200.1100, L503.6075, L3100.3425, L504.2610, L3100.6900 ####[facility] [address] [facility]. [place], [place], [id number] Globulin (S) [Mass/Vol] 3.8 g/dL Normal 2.2-4.2 [facility] Comment on above: Order Comment: 1 Performed By: #### L 3300.0100, L503.6550, L2100.0000, L3300.1200, L3410.1000, L3410.0900, L3300.1800, L4500.0100, L3300.0960, L501.9520, L503.0105, L3100.1850, L509.6000, L3200.0500, L101.9900, L500.4050, L100.0100, L501.6710, L3410.2400, L3200.1100, L503.6075, L3100.3425, L504.2610, L3100.6900 ####[facility] [address] [place], [address] Glucose [Mass/Vol] 83 mg/dL Normal 74-106 [facility] Comment on above: Order Comment: 1 Performed By: #### L 3300.0100, L503.6550, L2100.0000, L3300.1200, L3410.1000, L3410.0900, L3300.1800, L4500.0100, L3300.0960, L501.9520, L503.0105, L3100.1850, L509.6000, L3200.0500, L101.9900, L500.4050, L100.0100, L501.6710, L3410.2400, L3200.1100, L503.6075, L3100.3425, L504.2610, L3100.6900 ####[facility] [address] [place], [address] Potassium [Moles/Vol] 4.0 mmol/L Normal 3.5-5.1 [facility] Comment on above: Order Comment: 1 Performed By: #### L 3300.0100, L503.6550, L2100.0000, L3300.1200, L3410.1000, L3410.0900, L3300.1800, L4500.0100, L3300.0960, L501.9520, L503.0105, L3100.1850, L509.6000, L3200.0500, L101.9900, L500.4050, L100.0100, L501.6710, L3410.2400, L3200.1100, L503.6075, L3100.3425, L504.2610, L3100.6900 ####[facility] [address] [place], [address] Sodium [Moles/Vol] 138 mmol/L Normal 136-145 [facility] Comment on above: Order Comment: 1 Performed By: #### L 3300.0100, L503.6550, L2100.0000, L3300.1200, L3410.1000, L3410.0900, L3300.1800, L4500.0100, L3300.0960, L501.9520, L503.0105, L3100.1850, L509.6000, L3200.0500, L101.9900, L500.4050, L100.0100, L501.6710, L3410.2400, L3200.1100, L503.6075, L3100.3425, L504.2610, L3100.6900 ####[facility] [address] [place], [place], [id number] T PROT 7.7 g/dL Normal 6.4-8.2 [facility] Comment on above: Order Comment: 1 Performed By: #### L 3300.0100, L503.6550, L2100.0000, L3300.1200, L3410.1000, L3410.0900, L3300.1800, L4500.0100, L3300.0960, L501.9520, L503.0105, L3100.1850, L509.6000, L3200.0500, L101.9900, L500.4050, L100.0100, L501.6710, L3410.2400, L3200.1100, L503.6075, L3100.3425, L504.2610, L3100.6900 ####[facility] [address] [place], [place], [id number] Urea nitrogen [Mass/Vol] 14 mg/dL Normal 7-18 [facility] Comment on above: Order Comment: 1 Performed By: #### L 3300.0100, L503.6550, L2100.0000, L3300.1200, L3410.1000, L3410.0900, L3300.1800, L4500.0100, L3300.0960, L501.9520, L503.0105, L3100.1850, L509.6000, L3200.0500, L101.9900, L500.4050, L100.0100, L501.6710, L3410.2400, L3200.1100, L503.6075, L3100.3425, L504.2610, L3100.6900 ####[facility] [address] [place], [place], [phone] Erythrocyte Sed Rateon 02-14 SED RATE 22 mm/hr Normal 0-30 [facility] Comment on above: Performed By: #### L 3300.0100, L503.6550, L2100.0000, L3300.1200, L3410.1000, L3410.0900, L3300.1800, L4500.0100, L3300.0960, L501.9520, L503.0105, L3100.1850, L509.6000, L3200.0500, L101.9900, L500.4050, L100.0100, L501.6710, L3410.2400, L3200.1100, L503.6075, L3100.3425, L504.2610, L3100.6900 ####[facility] [address] [place], [place], [id number] Ferritinon 02-15-2024 Ferritin [Mass/Vol] 50 ng/mL Normal 8-252 [facility] Comment on above: Order Comment: 1 Performed By: #### L 3300.0100, L503.6550, L2100.0000, L3300.1200, L3410.1000, L3410.0900, L3300.1800, L4500.0100, L3300.0960, L501.9520, L503.0105, L3100.1850, L509.6000, L3200.0500, L101.9900, L500.4050, L100.0100, L501.6710, L3410.2400, L3200.1100, L503.6075, L3100.3425, L504.2610, L3100.6900 ####[facility] [address] [place], [place], [id number] Iron Binding Capacity,Totalo n 02-15-2024 TIBC 375 ug/dL Normal 250-450 [facility] Comment on above: Order Comment: 1 Performed By: #### L 3300.0100, L503.6550, L2100.0000, L3300.1200, L3410.1000, L3410.0900, L3300.1800, L4500.0100, L3300.0960, L501.9520, L503.0105, L3100.1850, L509.6000, L3200.0500, L101.9900, L500.4050, L100.0100, L501.6710, L3410.2400, L3200.1100, L503.6075, L3100.3425, L504.2610, L3100.6900 ####[facility] [address] [place], [address] LDHon 02-15-2024 LDH 245 U/L Normal 84-246 [facility] Comment on above: Order Comment: 1 Performed By: #### L 3300.0100, L503.6550, L2100.0000, L3300.1200, L3410.1000, L3410.0900, L3300.1800, L4500.0100, L3300.0960, L501.9520, L503.0105, L3100.1850, L509.6000, L3200.0500, L101.9900, L500.4050, L100.0100, L501.6710, L3410.2400, L3200.1100, L503.6075, L3100.3425, L504.2610, L3100.6900 ####[facility] [address] [place], [address] Thyroid Stim Hormone (TSH)on 02-15-2024 TSH 2.170 uIU/mL Normal 0.358-3.740 [facility] Comment on above: Order Comment: 1 Performed By: #### L 3300.0100, L503.6550, L2100.0000, L3300.1200, L3410.1000, L3410.0900, L3300.1800, L4500.0100, L3300.0960, L501.9520, L503.0105, L3100.1850, L509.6000, L3200.0500, L101.9900, L500.4050, L100.0100, L501.6710, L3410.2400, L3200.1100, L503.6075, L3100.3425, L504.2610, L3100.6900 ####[facility] [address] [place], [place], [id number] Vitamin B12on 02-15-2024 Cobalamin (Vitamin B12) [Mass/Vol] 587 pg/mL Normal 211-911 [facility] Comment on above: Performed By: #### L 3300.0100, L503.6550, L2100.0000, L3300.1200, L3410.1000, L3410.0900, L3300.1800, L4500.0100, L3300.0960, L501.9520, L503.0105, L3100.1850, L509.6000, L3200.0500, L101.9900, L500.4050, L100.0100, L501.6710, L3410.2400, L3200.1100, L503.6075, L3100.3425, L504.2610, L3100.6900 ####[facility] [address] [place], [place], [id number] CNPManjula 02-14-2024 ANNEN Telephone (OBGYWM) SANDIE BECERRIL ([id number]) 1990 F Date Time Provider Department 02/14/24 YAQUELIN GASTON During your visit today, we recorded the following information about you: Claudia Woodall RN 02/14/2024 8:12 AM Signed Can you please file depo CAM order for nurse visit today. ERICKA Macdonald Renee, APRN.CNP 02/14/2024 9:35 AM Signed Order filed. Yaquelin Gaston APRN.CNP Allergies As of Date: 02/14/2024 Noted Allergy Reaction NAPROXEN 06/26/2014 5 - Intolerance Comments: stomache pain AND diarrhea Date Reviewed: 11/22/2023 Reviewed by: Pratima Kat MD - Fully Assessed Reason for Visit: Orders [681] Primary Visit Diagnosis:Encounter for Depo-Provera contraception [Z30.42] Order(s):medroxyPROGEST ERone 150 mg injection (DEPO-PROVERA)Disp: Rfl: Prescriptions as of 02/14/2024 - LORazepam (ATIVAN) 0.5 mg 0 Refill(s), 89.4 - hydrOXYzine pamoate (VISTARIL) 25 mg capsule 0 Refill(s) - valACYclovir (VALTREX) 500 mg tablet Take 1 tablet by mouth once daily. - atomoxetine (STRATTERA) 40 mg capsule - amoxicillin (AMOXIL) 500 mg capsule - MAVYRET 100-40 mg tablet - amLODIPine (NORVASC) 5 mg tablet Take 1 tablet by mouth every afternoon. - NURTEC ODT 75 mg disintegrating tablet - medroxyPROGESTERone (DEPO-PROVERA) 150 mg/mL Inject 1 mL intramuscularly every 12 weeks. - phenazopyridine (PYRIDIUM) 100 mg tablet Take 1 tablet by mouth three times daily as needed. - buPROPion SR (WELLBUTRIN SR) 100 mg 12 hr tablet Take 100 mg by mouth once daily. - FLUoxetine HCl 20 mg tablet Take 20 mg by mouth. - methocarbamol (ROBAXIN) 500 mg tablet Take by mouth. - traZODone (DESYREL) 50 mg tablet Take 50 mg by mouth. - ALBUTEROL INHALATION Inhale as instructed. - nabumetone (RELAFEN) 750 mg tablet - SYMBICORT 160-4.5 mcg/actuation inhaler - gabapentin (NEURONTIN) 300 mg capsule - cariprazine (VRAYLAR) 1.5 mg capsule Take 3.5 mg by mouth once daily. - Condoms Latex Lubricated (CONDOMS-NATALIE LUBRICATED) Misc Chanda Use one condom before and during every act of intercourse Facility-Administered Medications as of 02/14/2024 - medroxyPROGESTERone 150 mg injection (DEPO-PROVERA) Meds Comments as of 09/28/2009: All medications reviewed September 28, 2009 Haydee Lord Rn Problem List As Of Date 02/14/2024 Noted Resolved Excessive or frequent menstruation [N92.0] 05/29/2011 Dysmenorrhea [N94.6] 05/29/2011 Dizziness [R42] 05/29/2011 Migraines [G43.909] 11/22/2023 Bipolar 1 disorder (HCC) [F31.9] 11/22/2023 Mild intermittent asthma without complication [*11/22/2023 Prescriptions ordered this encounter Disp Refills Start End MEDROXYPROGESTERONE 150 MG/ML INTRAM* 02/14/2024 01/15/2025 Route: INTRAMUSCULA Encounter Status:Closed by CLAUDIA WOODALL on 02/14/24 Normal [facility] Urine Cultureon 02-14-2024 URC Mixed Gram Positive Organisms Alverda Count 11,000-25,000 MIXC Mixed contaminants. Submit a new specimen if indicated. Normal [facility] Comment on above: Performed By: #### M 100.2200 ####[facility] [address] [place], [place], [id number] Gastroenterology Visit Repor ton 02-13-2024 Gastroenterology Visit Report Normal [facility] Brain/Head without Contrasto n 02-12-2024 Brain/Head without Contrast Normal [facility] CBC W/Diff, Automatedon 10-0 Absolute Lymph 1.54 X10 3/uL Normal 0.83-4.51 [facility] Comment on above: Performed By: #### L 100.0100, L500.4050 ####[facility] [address] [place], [place], [id number] Absolute Neut 3.5 X10 3/uL Normal 2.0-7.7 [facility] Comment on above: Performed By: #### L 100.0100, L500.4050 ####[facility] [address] [place], [address] Basophils/100 WBC (Bld) 1.2 % High 0-1 [facility] Comment on above: Performed By: #### L 100.0100, L500.4050 ####[facility] [address] [place], [address] Eosinophils/100 WBC (Bld) 2.5 % Normal 0-5 [facility] Comment on above: Performed By: #### L 100.0100, L500.4050 ####[facility] [address] [place], [address] Erythrocyte distribution width (RBC) [Ratio] 13.1 % Normal 11.6-14.6 [facility] Comment on above: Performed By: #### L 100.0100, L500.4050 ####[facility] [address] [place], [address] Hematocrit (Bld) [Volume fraction] 41.7 % Normal 37-47 [facility] Comment on above: Performed By: #### L 100.0100, L500.4050 ####[facility] [address] [place], [address] Hemoglobin (Bld) [Mass/Vol] 13.8 g/dL Normal 12.0-15.0 [facility] Comment on above: Performed By: #### L 100.0100, L500.4050 ####[facility] [address] [place], [address] IG% 0.200 Normal 0.0-0.9 [facility] Comment on above: Result Comment: IG% - Immature Granulocytes (promyelocytes, myelocytes andmetamyelocytes) > 1% indicates that a LEFT SHIFT is Present. Performed By: #### L 100.0100, L500.4050 ####[facility] [address] [place], [address] Lymphocytes/100 WBC (Bld) 26.1 % Normal 19-41 [facility] Comment on above: Performed By: #### L 100.0100, L500.4050 ####[facility] [address] [place], [address] MCH (RBC) [Entitic mass] 29.6 pg Normal 27.0-32.0 [facility] Comment on above: Performed By: #### L 100.0100, L500.4050 ####[facility] [address] [place], [address] MCHC (RBC) [Mass/Vol] 33.1 g/dL Normal 32-36 [facility] Comment on above: Performed By: #### L 100.0100, L500.4050 ####[facility] [address] [place], [address] MCV (RBC) [Entitic vol] 89.3 fL Normal 81-99 [facility] Comment on above: Performed By: #### L 100.0100, L500.4050 ####[facility] [address] [place], [address] Monocytes/100 WBC (Bld) 10.0 % Normal 0-10 [facility] Comment on above: Performed By: #### L 100.0100, L500.4050 ####[facility] [address] [place], [address] Neutrophils/100 WBC (Bld) 60.0 % Normal 47-70 [facility] Comment on above: Performed By: #### L 100.0100, L500.4050 ####[facility] [address] [place], [address] Nucleated RBC (Bld) [#/Vol] 0 10*3/uL Normal 0-5 [facility] Comment on above: Performed By: #### L 100.0100, L500.4050 ####[facility] [address] [place], [address] Platelet mean volume (Bld) [Entitic vol] 10.0 fL Normal 6.2-12.0 [facility] Comment on above: Performed By: #### L 100.0100, L500.4050 ####[facility] [address] [place], [address] Platelets (Bld) [#/Vol] 377 10*3/uL Normal 150-450 [facility] Comment on above: Performed By: #### L 100.0100, L500.4050 ####[facility] [address] [place], [address] RBC (Bld) [#/Vol] 4.67 10*6/uL Normal 4.2-5.4 [facility] Comment on above: Performed By: #### L 100.0100, L500.4050 ####[facility] [address] [place], [address] RDW SD 42.7 fl Normal 35.1-43.9 [facility] Comment on above: Performed By: #### L 100.0100, L500.4050 ####[facility] [address] [place], [address] WBC (Bld) [#/Vol] 5.9 10*3/uL Normal 4.4-11.0 [facility] Comment on above: Performed By: #### L 100.0100, L500.4050 ####[facility] [address] [place], [address] Comprehensive Metabolic Prof ilon 02-12-2024 Albumin [Mass/Vol] 3.5 g/dL Normal 3.2-5.0 [facility] Comment on above: Performed By: #### L 100.0100, L500.4050 ####[facility] [address] [place], [address] Albumin/Globulin [Mass ratio] 1.1 {ratio} Normal 0.9-2.4 [facility] Comment on above: Performed By: #### L 100.0100, L500.4050 ####[facility] [address] [place], [address] ALK P 108 U/L Normal 45-117 [facility] Comment on above: Performed By: #### L 100.0100, L500.4050 ####[facility] [address] [place], [address] ALT [Catalytic activity/Vol] 54 U/L Normal 13-56 [facility] Comment on above: Performed By: #### L 100.0100, L500.4050 ####[facility] [address] [place], [address] AST [Catalytic activity/Vol] 25 U/L Normal 15-37 [facility] Comment on above: Performed By: #### L 100.0100, L500.4050 ####[facility] [address] [place], [address] Bilirubin [Mass/Vol] 0.20 mg/dL Normal 0.20-1.00 [facility] Comment on above: Result Comment: For patients on eltrombopag therapy, use of Dimension Perry TBIL is not recommended. Performed By: #### L 100.0100, L500.4050 ####[facility] [address] [place], [address] BUN/CRE 10.9 RATIO Normal 10-20 [facility] Comment on above: Performed By: #### L 100.0100, L500.4050 ####[facility] [address] [place], [address] CA,Total 8.8 mg/dL Normal 8.5-10.1 [facility] Comment on above: Performed By: #### L 100.0100, L500.4050 ####[facility] [address] [place], [address] Chloride [Moles/Vol] 106 mmol/L Normal 98-107 [facility] Comment on above: Performed By: #### L 100.0100, L500.4050 ####[facility] [address] [place], [address] CO2 [Moles/Vol] 28.0 mmol/L Normal 21.0-32.0 [facility] Comment on above: Performed By: #### L 100.0100, L500.4050 ####[facility] [address] [place], [address] Creatinine [Mass/Vol] 1.10 mg/dL High 0.55-1.02 [facility] Comment on above: Result Comment: The validity of the calculated GFR GFRAA in patients over70 years has not been determined. Clinical correlation isessential. Performed By: #### L 100.0100, L500.4050 ####[facility] [address] [place], [address] ECRCL 80.51 ml/min Normal [facility] Comment on above: Performed By: #### L 100.0100, L500.4050 ####[facility] [address] [place], [address] EST GFR - AA 73 mL/min Normal >60 [facility] Comment on above: Result Comment: Afri can Togolese GFR Calc Performed By: #### L 100.0100, L500.4050 ####[facility] [address] [place], [address] GAP 8 Normal 5-15 [facility] Comment on above: Performed By: #### L 100.0100, L500.4050 ####[facility] [address] [place], [address] GFR/1.73 sq M.predicted among non-blacks MDRD (S/P/Bld) [Vol rate/Area] 61 mL/min/{1.73_m2} Normal >60 [facility] Comment on above: Result Comment: Non- GFR Calc Performed By: #### L 100.0100, L500.4050 ####[facility] [address] [place], [address] Globulin (S) [Mass/Vol] 3.1 g/dL Normal 2.2-4.2 [facility] Comment on above: Performed By: #### L 100.0100, L500.4050 ####[facility] [address] [place], [address] Glucose [Mass/Vol] 104 mg/dL Normal 74-106 [facility] Comment on above: Result Comment: Fast ing Glucose result from 100 to 125 mg/dLsuggests IMPAIRED HOMEOSTASIS per A.D.A. criteria. Performed By: #### L 100.0100, L500.4050 ####[facility] [address] [place], [address] Potassium [Moles/Vol] 3.3 mmol/L Low 3.5-5.1 [facility] Comment on above: Performed By: #### L 100.0100, L500.4050 ####[facility] [address] [place], [address] Sodium [Moles/Vol] 142 mmol/L Normal 136-145 [facility] Comment on above: Performed By: #### L 100.0100, L500.4050 ####[facility] [address] [place], [address] T PROT 6.6 g/dL Normal 6.4-8.2 [facility] Comment on above: Performed By: #### L 100.0100, L500.4050 ####[facility] [address] [place], [address] Urea nitrogen [Mass/Vol] 12 mg/dL Normal 7-18 [facility] Comment on above: Performed By: #### L 100.0100, L500.4050 ####[facility] [address] [place], [address] Emergency Department Summary on 02-12-2024 Emergency Department Summary Normal [facility] M100.678on 02-12-2024 M100.678 Pending SARS-CoV-2 (COVID 19) Negative INFLUENZA A Negative INFLUENZA B Negative RSV PCR Negative Normal [facility] Comment on above: Performed By: #### M 100.678, L400.0001 ####[facility] [address] [place], [address] Urinalysis, Completeon 02-11 BACTERIA 2+ /hpf Normal None Seen [facility] Comment on above: Order Comment: COLLE CTOR TO SPECIFY Performed By: #### M 100.678, L400.0001 ####[facility] [address] [place], [address] Mucus Ql (Urine sed) 2+ /hpf Normal [facility] Comment on above: Order Comment: COLLE CTOR TO SPECIFY Performed By: #### M 100.678, L400.0001 ####[facility] [address] [place], [address] RBC 0-5 SEEN Normal 0-5 [facility] Comment on above: Order Comment: COLLE CTOR TO SPECIFY Performed By: #### M 100.678, L400.0001 ####[facility] [address] [place], [address] WBC 5-10 SEEN Normal 0-5 [facility] Comment on above: Order Comment: COLLE CTOR TO SPECIFY Performed By: #### M 100.678, L400.0001 ####[facility] [address] [place], [address] EPI,SQUAMOUS 0-5 SEEN Normal 5-10 [facility] Comment on above: Order Comment: COLLE CTOR TO SPECIFY Performed By: #### M 100.678, L400.0001 ####[facility] [address] [place], [address] Emergency Department Summary on 02-06-2024 Emergency Department Summary Normal [facility] CDIFF (PCR)on 02-05-2024 CDIFF Pending 027 027 NAP1-B1 Presumptive Negative *for epidemiolologic???use C. Diff PCR Negative- No toxigenic C. Diff Detected Normal [facility] Comment on above: Performed By: #### M 100.6796, M100.637, M7400.3302, M600.5000 ####[facility] [address] [place], [address] ENTERIC PATHOGEN PANEL STOOL on 02-05-2024 EP PANEL Normal [facility] Comment on above: Performed By: #### M 100.6796, M100.637, M7400.3302, M600.5000 ####[facility] [address] [place], [address] MR/BMS.BPon 02-05-2024 MR/BMS.BP Normal [facility] CBC W/Diff, Automatedon 09-2 Absolute Lymph 1.41 X10 3/uL Normal 0.83-4.51 [facility] Comment on above: Performed By: #### L 501.9520, L100.0100 ####[facility] [address] [place], [address] Absolute Neut 5.3 X10 3/uL Normal 2.0-7.7 [facility] Comment on above: Performed By: #### L 501.9520, L100.0100 ####[facility] [address] [place], [address] Basophils/100 WBC (Bld) 1.2 % High 0-1 [facility] Comment on above: Performed By: #### L 501.9520, L100.0100 ####[facility] [address] [place], [address] Eosinophils/100 WBC (Bld) 0.5 % Normal 0-5 [facility] Comment on above: Performed By: #### L 501.9520, L100.0100 ####[facility] [address] [place], [address] Erythrocyte distribution width (RBC) [Ratio] 13.1 % Normal 11.6-14.6 [facility] Comment on above: Performed By: #### L 501.9520, L100.0100 ####[facility] [address] [place], [address] Hematocrit (Bld) [Volume fraction] 47.0 % Normal 37-47 [facility] Comment on above: Performed By: #### L 501.9520, L100.0100 ####[facility] [address] [place], [address] Hemoglobin (Bld) [Mass/Vol] 15.4 g/dL High 12.0-15.0 [facility] Comment on above: Performed By: #### L 501.9520, L100.0100 ####[facility] [address] [place], [address] IG% 0.300 Normal 0.0-0.9 [facility] Comment on above: Result Comment: IG% - Immature Granulocytes (promyelocytes, myelocytes andmetamyelocytes) > 1% indicates that a LEFT SHIFT is Present. Performed By: #### L 501.9520, L100.0100 ####[facility] [address] [place], [address] Lymphocytes/100 WBC (Bld) 18.6 % Low 19-41 [facility] Comment on above: Performed By: #### L 501.9520, L100.0100 ####[facility] [address] [place], [address] MCH (RBC) [Entitic mass] 29.3 pg Normal 27.0-32.0 [facility] Comment on above: Performed By: #### L 501.9520, L100.0100 ####[facility] [address] [place], [address] MCHC (RBC) [Mass/Vol] 32.8 g/dL Normal 32-36 [facility] Comment on above: Performed By: #### L 501.9520, L100.0100 ####[facility] [address] [place], [address] MCV (RBC) [Entitic vol] 89.4 fL Normal 81-99 [facility] Comment on above: Performed By: #### L 501.9520, L100.0100 ####[facility] [address] [place], [address] Monocytes/100 WBC (Bld) 9.6 % Normal 0-10 [facility] Comment on above: Performed By: #### L 501.9520, L100.0100 ####[facility] [address], [address] Neutrophils/100 WBC (Bld) 69.8 % Normal 47-70 [facility] Comment on above: Performed By: #### L 501.9520, L100.0100 ####[facility] [address] [place], [address] Nucleated RBC (Bld) [#/Vol] 0 10*3/uL Normal 0-5 [facility] Comment on above: Performed By: #### L 501.9520, L100.0100 ####[facility] [address] [place], [address] Platelet mean volume (Bld) [Entitic vol] 10.6 fL Normal 6.2-12.0 [facility] Comment on above: Performed By: #### L 501.9520, L100.0100 ####[facility] [address] [place], [address] Platelets (Bld) [#/Vol] 428 10*3/uL Normal 150-450 [facility] Comment on above: Performed By: #### L 501.9520, L100.0100 ####[facility] [address] [place], [address] RBC (Bld) [#/Vol] 5.26 10*6/uL Normal 4.2-5.4 [facility] Comment on above: Performed By: #### L 501.95, L100.0100 ####[facility] [address] [place], [address] RDW SD 42.5 fl Normal 35.1-43.9 [facility] Comment on above: Performed By: #### L 501.95, L100.0100 ####[facility] [address] [place], [address] WBC (Bld) [#/Vol] 7.6 10*3/uL Normal 4.4-11.0 [facility] Comment on above: Performed By: #### L 501.9520, L100.0100 ####[facility] [address] [place], [address] Internal Medicine Office Vis iton 02-01-2024 Internal Medicine Office Visit Normal [facility] Thyroid Stim Hormone (TSH)on 02-01-2024 TSH 2.740 uIU/mL Normal 0.358-3.740 [facility] Comment on above: Performed By: #### L 501.95, L100.0100 ####[facility] [address] [place], [address] MR/BMS.BPon 01-17-2024 MR/BMS.BP Normal [facility] Chest PA and Lateralon 01-15 Chest PA and Lateral Normal [facility] Emergency Department Summary on 01-16-2024 Emergency Department Summary Normal [facility] M100.678on 01-16-2024 M100.678 Pending SARS-CoV-2 (COVID 19) Negative INFLUENZA A Negative INFLUENZA B Negative RSV PCR Negative Normal [facility] Comment on above: Performed By: #### M 100.678 ####[facility] [address] [place], [address] Emergency Department Summary on 12-19-2023 Emergency Department Summary Normal [facility] [facility] M100.677on 12-19-2023 M100.677 Negative [facility] [place] Comment on above: Performed By: #### M 100.677, M100.678 ####[facility] [address] [place], [address] M100.678on 12-19-2023 M100.678 SARS-CoV-2 (COVID 19 ) Negative INFLUENZA A Negative INFLUENZA B Negative RSV PCR Negative [facility] [place] Comment on above: Performed By: #### M 100.677, M100.678 ####[facility] [address] [place], [address] Emergency Department Summary on 12-08-2023 Emergency Department Summary Normal [facility] C. trachomatis+N. gonorrhoea e DNA AUSTIN+probe Ql (Unsp spec)on 11-22-2023 C. trachomatis rRNA AUSTIN+probe Ql (Unsp spec) Negative Normal Negative for Chlamydia trachomatis by amplificaton [facility] Comment on above: Order Comment: Speci men Type: SWABOrdering Facility: [facility] Address: [address] [place] [address] [place] [address] Performed By: #### 3 6902-5 ####[facility] [id number] [place] [address] [place] N. gonorrhoeae rRNA UASTIN+probe Ql (Unsp spec) Negative Normal Negative for Neisseria gonorrhoeae by amplification [facility] Comment on above: Order Comment: Speci men Type: SWABOrdering Facility: [facility] Address: [address] [place] [address] Performed By: #### 3 6902-5 ####[facility] [id number] [address] [place] CNOVon 11-22-2023 CNOV Office Visit (OBGYWM ) SANDIE BECERRIL ([id number]) 1990 F Date Time Provider Department 11/22/23 1:30 PM PRATIMA KAT During your visit today, we recorded the following information about you: Blood pressure Weight Height 110/70 88 kg 1.676 m Pratima Kat MD 11/22/2023 2:12 PM Signed Burglar Alarm Superintendent offered: Patient declines. Sandie is a 33 year old who presents for an annual gynecologic exam without complaints. Very anxious today. Mom just diagnosed with lung cancer and is now on the way to the hospital with complications from a procedure. Wants to continue with depo. Menses: none with depo. Contraception: Depo Provera HPV vaccine: No Last Pap: 12/17/2019 normal HPV: 12/16/2019 negative History of abnormal pap: No Last mammogram: never Sexually active: Yes OB History T1 L1 SAB0 IAB0 Ectopic0 Multiple0 Live Births1 Facilities Coordinator History LMP: 06/15/2023 (Approximate), Drug Induced Amenorrhea Age at Menarche: Age at First : Age at Menopause: Facilities Coordinator History Comments: Sexual Activity: Yes; Male Contraception: [...] HISTORY Social History Tobacco Use Smoking status: Every Day Packs/day: 0.25 Years: 15.00 Additional pack years: 0.00 Total pack years: 3.75 Types: Cigarettes Smokeless tobacco: Never Tobacco comments: 3-4 Cigs daily Vaping Use Vaping Use: current everyday user Substances: Nicotine, THC Devices: Disposable Substance Use Topics Alcohol use: Yes Comment: Seldom Drug use: Yes Types: Marijuana Comment: Smoking, couple times a day REVIEW OF SYSTEMS Abdomen: No abdominal pain, nausea, vomiting, diarrhea, or constipation. No bloating, early satiety, indigestion, or increased flatulence. Bladder: No dysuria, gross hematuria, urinary frequency, urinary urgency, or incontinence. Breast: No breast lumps, nipple d/c, overlying skin changes, redness or skin retraction. Allergies and current medication updated:Yes EXAM: BP 110/70 Ht 5' 6 (1.68m) Wt 194 lb (88.0kg) LMP 06/15/2023 BMI 31.33 kg/(m2). GENERAL: emotional, female in no apparent distress HEENT: Normocephalic, atraumatic, mucus membranes moist, and no lesions NECK: Supple, full range of motion, no adenopathy, and thyroid normal DERMATOLOGY: Normal, without lesions, non-icteric, and non-hirsute BREAST: soft, non-tender, symmetric, no dominant mass, normal nipple-areolar complex, no lymphadenopathy, and no nipple discharge CHEST: Normal inspiratory effort ABDOMEN: soft, non-tender, and no masses PELVIC: external genitalia normal, normal Bartholin's glands, urethra, Colusa's glands, no vulvar lesions, no cervical lesions, good vaginal support, physiologic discharge present, normal appearing perineal body and perianal region BIMANUAL: uterus normal size, shape and consistency, no adnexal masses, and non-tender RECTOVAGINAL: deferred. NEURO: alert and oriented x3,exam grossly non-focal EXTREMITIES: normal ASSESSMENT/PLAN: 1) Health maintenance: Pap done with HPV. 2) Contraception: Depo Provera. Contraceptive options reviewed and information provided. 3) STD screening: Accepted STD check for Gonorrhea and Chlamydia. 4) Follow up one year or sooner as needed MD Sreedhar Hinds Annalee, LPN 11/22/2023 5:06 PM Signed The patient is here for an injection of Depoprovera. Dose: 150 mg Route: Intramuscular Site: left upper quadrant gluteus Customer Experience Manager: prasco Lot: [id number] Expiration Date: 12/04/2026 The date due for the next injection is in 12 weeks Radha Eli LPN Allergies As of Date: 11/22/2023 Noted Allergy Reaction NAPROXEN 06/26/2014 5 - Intolerance Comments: stomache pain AND diarrhea Date Reviewed: 11/22/2023 Reviewed by: Pratima Kat MD - Fully Assessed Reason for Visit: Yearly Exam [187] Primary Visit Diagnosis:Encounter for gynecological examination (general) (routine) without abnormal findings [Z01.419] Other Visit Diagnoses:Screening for cervical cancer [Z12.4] Encounter (more content not included)... Normal [facility] HIGH RISK HUMAN PAPILLOMA KAREN (HPV), PCR FOR DETECTION AND GENOTYPINGon 11-22-2023 HPV 16 Ag Ql (Unsp spec) Not detected Normal Not detected [facility] Comment on above: Order Comment: Speci men Type: FLUID SPECIMENOrdering Facility: [facility] Address: [address] [place] [address] Performed By: #### L [id number] ####[facility] [id number] [place] [address] [place] [facility] LABCLIA [id number] [address] [place]#### HPVHRT ####[facility] [id number] [place] [address] [place] HPV 18 Ag Ql (Unsp spec) Not detected Normal Not detected [facility] Comment on above: Order Comment: Speci men Type: FLUID SPECIMENOrdering Facility: [facility] Address: [address] [place] [address] Performed By: #### L [id number] ####[facility]ORY[facility] [id number] [place] [address] [place] [facility] LABCLIA [id number] [place] [address] [place]#### HPVHRT ####[facility] [id number] [place] [address] [place] HPV 31+33+35+39+45+51+52+5 6+58+59+66+68 DNA AUSTIN+probe Ql (Cvx) Not detected Normal Not detected [facility] Comment on above: Order Comment: Speci men Type: FLUID SPECIMENOrdering Facility: [facility] Address: [address] [place] [address] Result Comment: High Risk HPV Other Type includes HPV types 31, 33, 35, 39, 45, 51, 52, 56, 58, 59, 66 and 68. Performed By: #### L [id number] ####[facility]ORYCLIA [id number] [place] [address] [place] [facility] [id number] [place] [address] [place]#### HPVHRT ####[facility] [id number] [place] [address] [place] PAP TESTon 11-22-2023 ADEQUACY Satisfactory for interpretation. Normal [facility] Comment on above: Order Comment: Speci men Type: FLUID SPECIMENOrdering Facility: [facility] Address: [address] [place] [address] Performed By: #### L [id number] ####[facility]ATORYCLIA [id number] [place] [address] [place] [facility] LABCLIA [id number] [place] [address] [place]#### HPVHRT ####[facility] [id number] [place] [address] [place] CASE REPORT Normal [facility] Comment on above: Order Comment: Speci men Type: FLUID SPECIMENOrdering Facility: [facility] Address: [address] [place] [address] Result Comment: Gyne cologic Cytology Report Case: [id number] Authorizing Provider: Pratima Kat MD Collected: 11/22/2023 02:10 PM Ordering Location: OB/Gynecology Received: 11/22/2023 04:41 PM First Screen: Veto, Ana, CT, ASCP Specimen: Pap Test, ThinPrep, Cervix Performed By: #### L [id number] ####[facility]ATORYCLIA [id number] [address] STATES [facility] LABCLIA [id number] [place] [address] [place]#### HPVHRT ####[facility] [id number] [place] [address] [place] CLINICAL HISTORY, CYTOLOGY, SUPERVISOR THROWING DEPARTMENT Routine Exam Normal [facility] Comment on above: Order Comment: Speci men Type: FLUID SPECIMENOrdering Facility: [facility] Address: [address] [place] [address] Result Comment: Horm onal Contraceptive, No Menses Performed By: #### L [id number] ####[facility]ATORYCLIA [id number] [place] [id number] [facility] LABCLIA [id number] [place] [address] [place]#### HPVHRT ####[facility] [id number] [place] [id number] [place] CYTOLOGY PAP OTHER INT Trichomonas vaginalis. Normal [facility] Comment on above: Order Comment: Speci men Type: FLUID SPECIMENOrdering Facility: [facility] Address: [facility] [place] [address] Performed By: #### L [id number] ####[facility] [id number] [place] [id number] [place] [facility] [id number] [place] [address] [place]#### HPVHRT ####[facility] [id number] [place] [address] [place] FINAL PERFORMING LAB Normal [facility] Comment on above: Order Comment: Speci men Type: FLUID SPECIMENOrdering Facility: [facility] Address: [address] [place] [id number] Result Comment: Tech nical component, contract attorney screening performed at [facility], [address] [place] [address] CLIA# [id number] Diagnostic interpretation performed at [facility], [address] [place] [id number] CLIA# [id number] Laborer Prestressed Concrete: Woody Lowery M.D. Performed By: #### L [id number] ####[facility]ORYCLIA [id number] [place] [address] [place] [facility] [id number] [place] [address] [place]#### HPVHRT ####[facility] [id number] [place] [id number] [place] HPV REFLEX Yes HPV Normal [facility] Comment on above: Order Comment: Speci men Type: FLUID SPECIMENOrdering Facility: [facility] Address: [address] [place] [address] Performed By: #### L [id number] ####[facility]ATORYCLIA [id number] [place] [address] [place] [facility] LABCLIA [id number] [place] [address] [place]#### HPVHRT ####[facility] [id number] [place] [id number] [place] INTERPRETATION, CYTOLOGY, SUPERVISOR THROWING DEPARTMENT Normal [facility] Comment on above: Order Comment: Speci men Type: FLUID SPECIMENOrdering Facility: [facility] Address: [address] [place] [address] Result Comment: Nega tive for intraepithelial lesion or malignancy. Performed By: #### L [id number] ####[facility]ORATORYCLIA [id number] [place] [id number] [place] [facility] LABCLIA [id number] [place] [address] [place]#### HPVHRT ####[facility] [id number] [place] [id number] [place] PAP DISCLAIMER COMMENT The Pap Smear is a screening test for cervical cancer. False negative results occur with all screening tests, emphasizing the need for rescreening at recommended intervals, and clinical correlation. Normal [facility] Comment on above: Order Comment: Speci men Type: FLUID SPECIMENOrdering Facility: [facility] Address: [address] [place], [place] [id number] Performed By: #### L [id number] ####[facility]ORATORYCLIA [id number] [place] [id number] [place] [facility] [id number] [address]#### HPVHRT ####[facility] [id number] [address] STATES [facility] PAP HEMODIALYSIS RN COMMENT This specimen has be en analyzed by the ThinPrep Imaging System, an automated imaging and review system, which assists the laboratory in evaluating cells on ThinPrep Pap tests. Following automated imaging, selected arteaga from every slide are reviewed by a contract attorney. Normal [facility] Comment on above: Order Comment: Speci men Type: FLUID SPECIMENOrdering Facility: [facility] Address: [address] [place] [address] Performed By: #### Yves [id number] ####[facility]ATORYCLIA [id number] [address] LABCLIA [id number] [address]#### HPVHRT ####[facility] [id number] [address] .Auto Diffon 11-19-2023 Basophil, Absolute 0.1 10 3/mcL Normal 0.0-0.2 Counts include 234 beds at the [facility] ([place] Comment on above: Performed By: #### C SCOTT DACOSTA ANEU, MDW, CBC, GFR, LIP #### [address] [address] Basophils/100 WBC (Bld) 0.8 % Normal 0.0-2.5 [facility] ([place]) Comment on above: Performed By: #### C SCOTT DACOSTA ANEU, MDW, CBC, GFR, LIP #### [address] [address] Eosinophil, Absolute 0.1 10 3/mcL Normal 0.0-0.4 [facility] ([place]) Comment on above: Performed By: #### C SCOTT DACOSTA ANEU, MDW, CBC, GFR, LIP #### [address] [address] Eosinophils/100 WBC (Bld) 0.7 % Normal 0.0-7.0 [facility] ([place] Comment on above: Performed By: #### C PRANEETH, TRACY CHAVEZ, MDW, CBC, GFR, LIP #### [address] [address] Lymphocyte, Absolute 1.6 10 3/mcL Normal 0.8-3.9 [facility] ([place]) Comment on above: Performed By: #### C PRANEETH, TRACY CHAVEZ, W, CBC, GFR, LIP #### [address] [address] Lymphocytes/100 WBC (Bld) 17.3 % Normal 10.0-50.0 [facility] ([place] Comment on above: Performed By: #### C PRANEETH, SCOTT, TRACY, MDW, CBC, GFR, LIP #### [address] [address] Monocyte, Absolute 0.8 10 3/mcL Normal 0.2-1.0 Counts include 234 beds at the [facility] ([place] Comment on above: Performed By: #### C SCOTT DACOSTA ANEU, MDW, CBC, GFR, LIP #### [address] [address] Monocytes/100 WBC (Bld) 8.2 % Normal 1.7-13.0 [facility] ([place] Comment on above: Performed By: #### C SCOTT DACOSTA ANEU, MDW, CBC, GFR, LIP #### [address] [address] Neutrophils/100 WBC (Bld) 73.0 % Normal 37.0-80.0 [facility] ([place] Comment on above: Performed By: #### C SCOTT DACOSTA ANEU MDW, CBC, GFR, LIP #### [address] [address] .GFRon 11-19-2023 GFR 68 ml/min/1.73sqm Normal [facility] ([place]) Comment on above: Result Comment: GFR Population mean for , Non- Americans Ages 20-29 = 116 mL/min/1.73 sq.m. Ages 30-39 = 107 mL/min/1.73 sq.m. Ages 40-49 = 99 mL/min/1.73 sq.m. Ages 50-59 = 93 mL/min/1.73 sq.m. Ages 60-69 = 85 mL/min/1.73 sq.m. Ages 70+ = 75 mL/min/1.73 sq.m. Chronic Kidney Disease: Less than 60 mL/min/1.73 square meters End Stage Renal Disease: Less than 15 mL/min/1.73 square meters Performed By: #### C SCOTT DACOSTA ANEU, MDW, CBC, GFR, LIP ####[address] [place], [place] [address] GFR Non- 56 ml/min/1.73sqm Normal [facility] ([place]) Comment on above: Result Comment: GFR Population mean for , Non- Americans Ages 20-29 = 116 mL/min/1.73 sq.m. Ages 30-39 = 107 mL/min/1.73 sq.m. Ages 40-49 = 99 mL/min/1.73 sq.m. Ages 50-59 = 93 mL/min/1.73 sq.m. Ages 60-69 = 85 mL/min/1.73 sq.m. Ages 70+ = 75 mL/min/1.73 sq.m. Chronic Kidney Disease: Less than 60 mL/min/1.73 square meters End Stage Renal Disease: Less than 15 mL/min/1.73 square meters Performed By: #### C SCOTT DACOSTA ANEU, MDW, CBC, GFR, LIP ####[id number] [place], [place] [address] .BRANNONon 11-19-2023 Monocyte Distribution Width 15.19 Normal 0.00-20.00 [facility] ([place]) Comment on above: Result Comment: For ED adult patients suspected of sepsis, MDW<=20.0 does not rule out sepsis or risk of sepsis Performed By: #### C MP, ADIFF, ANEU, MDW, CBC, GFR, LIP #### [place] [address] .NEUABSon 11-19-2023 Neutrophil, Absolute 6.7 10 3/mcL High 2.9-6.2 [facility] ([place]) Comment on above: Performed By: #### C SCOTT DACOSTA ANEU, MDW, CBC, GFR, LIP #### [place] [address] .Urinalysis Microscopic (AO) on 11-19-2023 UA RBC 0-5 Abnormal None Seen [facility] ([place] Comment on above: Performed By: #### U AMICAO, UA #### [place] [address] UA Squam Epithelial 5-10 Abnormal None Seen [facility] ([place]) Comment on above: Performed By: #### U AMICAO, UA #### [place] [address] UA WBC 10-15 Abnormal None Seen [facility] ([place] Comment on above: Performed By: #### U AMICAO, UA #### [place] [address] CBCon 11-19-2023 Erythrocyte distribution width (RBC) [Ratio] 13.1 % Normal 11.5-14.5 [facility] ([place] Comment on above: Performed By: #### C SCOTT DACOSTA ANEU, MDW, CBC, GFR, LIP #### [place] [address] Hematocrit (Bld) [Volume fraction] 40.9 % Normal 37.0-47.0 [facility] ([place] Comment on above: Performed By: #### C SCOTT DACOSTA ANEU, MDW, CBC, GFR, LIP #### [place] [address] Hgb 14.0 G/dL Normal 12.0-16.0 [facility] ([place] Comment on above: Performed By: #### C SCOTT DACOSTA ANEU, MDW, CBC, GFR, LIP #### [address] [address] MCH (RBC) [Entitic mass] 30.4 pg Normal 27.0-31.2 [facility] ([place] Comment on above: Performed By: #### C SCOTT DACOSTA ANEU, MDW, CBC, GFR, LIP #### [address] [address] MCHC 34.1 G/dL Normal 33.0-37.0 [facility] ([place] Comment on above: Performed By: #### C SCOTT DACOSTA ANEU, MDW, CBC, GFR, LIP #### [address] [address] MCV (RBC) [Entitic vol] 89.3 fL Normal 80.0-94.0 [facility] ([place] Comment on above: Performed By: #### C SCOTT DACOSTA ANEU, MDW, CBC, GFR, LIP #### [address] [address] Platelet 362 10 3/mcL Normal 130-400 [facility] ([place]) Comment on above: Performed By: #### C SCOTT DACOSTA ANEU, MDW, CBC, GFR, LIP #### [address] [address] Platelet mean volume (Bld) [Entitic vol] 8.1 fL Normal 7.4-10.4 [facility] ([place] Comment on above: Performed By: #### C SCOTT DACOSTA ANEU, MDW, CBC, GFR, LIP #### [address] [address] RBC 4.59 10 6/mcL Normal 4.20-5.40 [facility] ([place]) Comment on above: Performed By: #### C SCOTT DACOSTA ANEU, MDW, CBC, GFR, LIP #### [address] [address] WBC 9.2 10 3/mcL Normal 4.6-10.8 [facility] ([place]) Comment on above: Performed By: #### C SCOTT DACOSTA ANEU, MDW, CBC, GFR, LIP #### [address] [address] CMPon 11-19-2023 Albumin Level 4.1 G/dL Normal 3.5-5.0 [facility] ([place]) Comment on above: Performed By: #### C PRANEETH, TRACY CHAVEZ MDW, CBC, GFR, LIP #### [place] [id number] Albumin/Globulin [Mass ratio] 1.5 {ratio} Normal 1.1-2.5 [facility] ([place] Comment on above: Performed By: #### C SCOTT DACOSTA ANEU, MDW, CBC, GFR, LIP #### [address] [address] ALP [Catalytic activity/Vol] 102 U/L Normal 40-135 [facility] ([place]) Comment on above: Performed By: #### C SCOTT DACOSTA ANEU, MDW, CBC, GFR, LIP #### [address] [address] ALT [Catalytic activity/Vol] 33 U/L Normal 14-59 [facility] ([place] Comment on above: Performed By: #### C SCOTT DACOSTA ANEU, MDW, CBC, GFR, LIP #### [address] [address] AST [Catalytic activity/Vol] 17 U/L Normal 10-40 [facility] ([place]) Comment on above: Performed By: #### C SCOTT DACOSTA ANEU, MDW, CBC, GFR, LIP #### [address] [address] Bili Total 0.5 mg/dL Normal 0.2-1.0 [facility] ([place]) Comment on above: Result Comment: Use of this assay is not recommended for patients undergoing treatment with eltrombopag due to the potential for falsely elevated results. Performed By: #### C PRANEETH, TRACY CHAVEZ MDW, CBC, GFR, LIP #### [address] [address] BUN/Creatinine Ratio 10 ratio Normal 7-27 Counts include 234 beds at the [facility] ([place]) Comment on above: Performed By: #### C SCOTT DACOSTA ANEU, MDW, CBC, GFR, LIP #### [address] [address] Calcium [Mass/Vol] 9.4 mg/dL Normal 8.4-10.2 [facility] ([place]) Comment on above: Performed By: #### C SCOTT DACOSTA ANEU, MDW, CBC, GFR, LIP #### [address] [address] Chloride [Moles/Vol] 103 mmol/L Normal 98-107 Counts include 234 beds at the [facility] ([place]) Comment on above: Performed By: #### C SCOTT DACOSTA ANEU, MDW, CBC, GFR, LIP #### [address] [address] CO2 [Moles/Vol] 26 mmol/L Normal 22-29 [facility] ([place]) Comment on above: Performed By: #### C SCOTT DACOSTA ANEU, MDW, CBC, GFR, LIP #### [address] [address] Creatinine [Mass/Vol] 1.12 mg/dL High 0.55-1.02 [facility] ([place]) Comment on above: Performed By: #### C SCOTT DACOSTA ANEU, MDW, CBC, GFR, LIP #### [address] [address] Electrolyte Balance 10.0 mEq/L Normal 4.0-15.0 [facility] ([place]) Comment on above: Performed By: #### C SCOTT DACOSTA ANEU, MDW, CBC, GFR, LIP #### [address] [address] Globulin 2.8 G/dL Normal [facility] ([place]) Comment on above: Performed By: #### C SCOTT DACOSTA ANEU, MDW, CBC, GFR, LIP #### [address] [place] [address] Glucose [Mass/Vol] 88 mg/dL Normal 70-105 [facility] ([place]) Comment on above: Performed By: #### C SCOTT DACOSTA ANEU, MDW, CBC, GFR, LIP #### [address] [address] Potassium [Moles/Vol] 3.5 mmol/L Normal 3.5-5.1 [facility] ([place]) Comment on above: Performed By: #### C SCOTT DACOSTA ANEU, MDW, CBC, GFR, LIP #### [address] [address] Sodium [Moles/Vol] 139 mmol/L Normal 136-145 [facility] ([place]) Comment on above: Performed By: #### C SCOTT DACOSTA ANEU, MDW, CBC, GFR, LIP #### [address] [address] Total Protein 6.9 G/dL Normal 6.4-8.2 [facility] ([place]) Comment on above: Performed By: #### C SCOTT DACOSTA ANEU, MDW, CBC, GFR, LIP #### [address] [address] Urea nitrogen [Mass/Vol] 11 mg/dL Normal 7-18 [facility]) Comment on above: Performed By: #### C SCOTT DACOSTA ANEU, MDW, CBC, GFR, LIP #### [address] [address] LABORATORYOrdered By: SYSTEM SYSTEM on 11-19-2023 Albumin BCP dye [Mass/Vol] 4.1 G/dL Normal 3.5 - 5.0 G/dL AO ADM SS Albumin/Globulin [Mass ratio] 1.5 {ratio} Normal 1.1 - 2.5 ratio AO ADM SS ALP [Catalytic activity/Vol] 102 U/L Normal 40 - 135 U/L AO ADM SS ALT With P-5'-P [Catalytic activity/Vol] 33 U/L Normal 14 - 59 U/L AO ADM SS AST With P-5'-P [Catalytic activity/Vol] 17 U/L Normal 10 - 40 U/L AO ADM SS Basophil, Absolute 0.1 103/mcL Normal 0.0 - 0.2 10^3/mcL AO Workflow SS Basophils/100 WBC (Bld) 0.8 % Normal 0.0 - 2.5 % AO Workflow SS Bilirubin [Mass/Vol] 0.5 mg/dL Normal 0.2 - 1 .0 mg/dL AO ADM SS Comment on above: Interpretive Data: U se of this assay is not recommended for patients undergoing treatment with eltrombopag due to the potential for falsely elevated results. Calcium [Mass/Vol] 9.4 mg/dL Normal 8.4 - 10. 2 mg/dL AO ADM SS Chloride [Moles/Vol] 103 mmol/L Normal 98 - 10 7 mmol/L AO ADM SS CO2 [Moles/Vol] 26 mmol/L Normal 22 - 29 mmol/L AO AD M SS Creatinine [Mass/Vol] 1.12 mg/dL High 0.55 - 1.02 mg/dL AO ADM SS Electrolyte Balance 10.0 mEq/L Normal 4.0 - 15 .0 mEq/L AO ADM SS Eosinophil, Absolute 0.1 103/mcL Normal 0.0 - 0 .4 10^3/mcL AO Workflow SS Eosinophils/100 WBC (Bld) 0.7 % Normal 0.0 - 7.0 % AO Workflow SS Erythrocyte distribution width (RBC) [Ratio] 13.1 % Normal 11.5 - 14.5 % AO Workflow SS GFR/1.73 sq M.predicted among blacks MDRD (S/P/Bld) [Vol rate/Area] 68 ml/min/1.73sqm Invalid Interpretation Code AO Chemistry S Comment on above: Interpretive Data: GFR Population mean for , Non- Americans Ages 20-29 = 116 mL/min/1.73 sq.m. Ages 30-39 = 107 mL/min/1.73 sq.m. Ages 40-49 = 99 mL/min/1.73 sq.m. Ages 50-59 = 93 mL/min/1.73 sq.m. Ages 60-69 = 85 mL/min/1.73 sq.m. Ages 70+ = 75 mL/min/1.73 sq.m. Chronic Kidney Disease: Less than 60 mL/min/1.73 square meters End Stage Renal Disease: Less than 15 mL/min/1.73 square meters GFR/1.73 sq M.predicted among non-blacks MDRD (S/P/Bld) [Vol rate/Area] 56 ml/min/1.73sqm Invalid Interpretation Code AO Chemistry S Comment on above: Interpretive Data: GFR Population mean for , Non- Americans Ages 20-29 = 116 mL/min/1.73 sq.m. Ages 30-39 = 107 mL/min/1.73 sq.m. Ages 40-49 = 99 mL/min/1.73 sq.m. Ages 50-59 = 93 mL/min/1.73 sq.m. Ages 60-69 = 85 mL/min/1.73 sq.m. Ages 70+ = 75 mL/min/1.73 sq.m. Chronic Kidney Disease: Less than 60 mL/min/1.73 square meters End Stage Renal Disease: Less than 15 mL/min/1.73 square meters Globulin 2.8 G/dL Invalid Interpretation Code AO ADM SS Glucose [Mass/Vol] 88 mg/dL Normal 70 - 105 mg/dL AO ADM SS Hematocrit (Bld) [Volume fraction] 40.9 % Normal 37.0 - 47.0 % AO Workflow SS Hemoglobin (Bld) [Mass/Vol] 14.0 G/dL Normal 12.0 - 16.0 G/dL AO Workflow SS Lipase [Catalytic activity/Vol] 36 U/L Normal 16 - 77 U/L AO ADM SS Lymphocyte, Absolute 1.6 103/mcL Normal 0.8 - 3 .9 10^3/mcL AO Workflow SS Lymphocytes/100 WBC (Bld) 17.3 % Normal 10.0 - 50.0 % AO Workflow SS MCH (RBC) [Entitic mass] 30.4 pg Normal 27.0 - 31.2 pg AO Workflow SS MCHC 34.1 G/dL Normal 33.0 - 37.0 G/dL AO Workflow SS MCV (RBC) [Entitic vol] 89.3 fL Normal 80.0 - 94.0 fL AO Workflow SS Monocyte distribution width Auto (Bld) [Entitic vol] 15.19 1 Normal 0.00 - 20.00 AO Workflow SS Comment on above: Result Comment: For ED adult patients suspected of sepsis, MDW<=20.0 does not rule out sepsis or risk of sepsis Monocyte, Absolute 0.8 103/mcL Normal 0.2 - 1.0 10^3/mcL AO Workflow SS Monocytes/100 WBC (Bld) 8.2 % Normal 1.7 - 13.0 % AO Workflow SS Neutrophil, Absolute 6.7 103/mcL High 2.9 - 6 .2 10^3/mcL AO Workflow SS Neutrophils/100 WBC (Bld) 73.0 % Normal 37.0 - 80.0 % AO Workflow SS Platelet mean volume (Bld) [Entitic vol] 8.1 fL Normal 7.4 - 10.4 fL AO Workflow SS Platelets (Bld) [#/Vol] 362 103/mcL Normal 130 - 400 10^3/mcL AO Workflow SS Potassium [Moles/Vol] 3.5 mmol/L Normal 3.5 - 5.1 mmol/L AO ADM SS Protein [Mass/Vol] 6.9 G/dL Normal 6.4 - 8.2 G/dL AO ADM SS RBC (Bld) [#/Vol] 4.59 106/mcL Normal 4.20 - 5.4 0 10^6/mcL AO Workflow SS Sodium [Moles/Vol] 139 mmol/L Normal 136 - 145 mmol/L AO ADM SS Urea nitrogen [Mass/Vol] 11 mg/dL Normal 7 - 18 mg/dL AO ADM SS Urea nitrogen/Creatinine [Mass ratio] 10 ratio Normal 7 - 27 ratio AO ADM SS WBC (Bld) [#/Vol] 9.2 103/mcL Normal 4.6 - 10.8 10^3/mcL AO Workflow SS LABORATORYOrdered By: Woody vazquez on 11-19-2023 Appearance (U) Clear (11/19/23 4:26 PM) Normal Clear AO Auto Urine SS Bilirubin Ql (U) Negative (11/19/23 4:26 PM) Normal Negative AO Auto Urine SS Color (U) Yellow (11/19/23 4:26 PM) Normal AO Auto Urine SS Glucose Test strip (U) [Mass/Vol] Negative Normal Negative AO Auto Urine SS Hemoglobin Auto test strip (U) [Mass/Vol] Negative (11/19/23 4:26 PM) Normal Negative AO Auto Urine SS Ketones Ql (U) Negative Normal Negative AO Auto Urine SS UA Leuk Est Moderate *ABN* (11/19/23 4:26 PM) Invalid Interpretation Code Negative AO Auto Urine SS UA Nitrite Negative (11/19/23 4:26 PM) Normal Negative AO Auto Urine SS UA pH 6.0 (11/19/23 4:26 PM) Normal 5.0 - 8.0 AO Auto Urine SS UA Protein Negative Normal Negative AO Auto Urine SS UA RBC 0-5 /HPF Invalid Interpretation Code None Seen AO Auto Urine SS UA Spec Grav >=1.030 *ABN* (11/19/23 4:26 PM) Invalid Interpretation Code 1.015-1.025 AO Auto Urine SS UA Specimen Type Clean Catch (11/19/23 4:26 PM) Normal AO Auto Urine SS UA Squam Epithelial 5-10 /HPF Invalid Interpretation Code None Seen AO Auto Urine SS UA Urobilinogen 0.2 E.U./dL Normal 0.2-1.0 AO Auto Urine SS WBC LM.HPF (Urine sed) [#/Area] 10-15 /HPF Invalid Interpretation Code None Seen AO Auto Urine SS LIPon 11-19-2023 Lipase Level 36 U/L Normal 16-77 [facility] ([place] Comment on above: Performed By: #### C SCOTT DACOSTA, TRACY, MDW, CBC, GFR, LIP #### [address] [address] UAon 11-19-2023 Color (U) Yellow Normal [facility] ([place] Comment on above: Performed By: #### U AMICAO, UA #### [address] [address] Glucose (U) [Mass/Vol] Negative Normal Negative [facility] ([place] Comment on above: Performed By: #### U AMICAO, UA #### [address] [address] Ketones Ql (U) Negative Normal Negative [facility] ([place] Comment on above: Performed By: #### U AMICAO, UA #### [address] [address] UA Appear Clear Normal Clear [facility] ([place] Comment on above: Performed By: #### U AMICAO, UA #### [address] [address] UA Blood Negative Normal Negative [facility] ([place] Comment on above: Performed By: #### U AMICAO, UA #### [place] [address] [address] UA Leuk Est Moderate Abnormal Negative [facility] ([place] Comment on above: Performed By: #### U AMICAO, UA #### [place] [address] [address] UA Nitrite Negative Normal Negative [facility] ([place] Comment on above: Performed By: #### U AMICAO, UA #### [place] [address] [address] UA pH 6.0 Normal 5.0 - 8.0 [facility] ([place] Comment on above: Performed By: #### U AMICAO, UA #### [place] [address] UA Protein Negative Normal Negative [facility] ([place] Comment on above: Performed By: #### U AMICAO, UA #### [place] [address] UA Spec Grav >=1.030 Abnormal 1.015-1.025 [facility] ([place] Comment on above: Performed By: #### U AMICAO, UA #### [address] [address] UA Specimen Type Clean Catch Normal [facility] ([place] Comment on above: Performed By: #### U AMICAO, UA #### [place] [id number] UA Urobilinogen 0.2 E.U./dL Normal 0.2-1.0 [facility] ([place] Comment on above: Performed By: #### U AMICAO, UA #### [place] [address] Urobilinogen (U) [Mass/Vol] Negative Normal Negative [facility] ([place] Comment on above: Performed By: #### U AMICAO, UA #### [address] [address] MR/BMS.BPon 11-15-2023 MR/BMS.BP Normal [facility] Emergency Department Summary on 11-01-2023 Emergency Department Summary [facility] CNPNon 10-10-2023 CNPN Telephone ([id number]) SANDIE BECERRIL ([id number]) 1990 F Date Time Provider Department 10/10/23 ANNA MARIE PÉREZPINE3 During your visit today, we recorded the following information about you: Danis Lobato 10/10/2023 11:44 AM Signed No Show Documentation Sandie Becerril no showed for an appointment on 10/04/2023with Anna Marie Pérez APRN.CNP at 3:30pm. She was scheduled for 2 month follow up. I called and was unable to leave a message as patient's voicemail was full regarding her missed appointment. This is the patients first no show in the last 12 months. Patient was rescheduled for N/A. Letter mailed : Yes Is this the Third or Fourth No Show? Essence Lobato October 10, 2023 11:41 AM Allergies As of Date: 10/10/2023 Noted Allergy Reaction NAPROXEN 06/26/2014 14 - Other: See Comments Comments: stomache pain AND diarrhea OTC skin products [Other] 03/07/2010 14 - Other: See Comments Comments: Skin sensitivity to certain OTC skin products Date Reviewed: 08/29/2023 Reviewed by: Nette Brown, ERICKA - Fully Assessed Reason for Visit: No Show [1558] Prescriptions as of 10/10/2023 - atomoxetine (STRATTERA) 40 mg capsule - amoxicillin (AMOXIL) 500 mg capsule - MAVYRET 100-40 mg tablet - amLODIPine (NORVASC) 5 mg tablet Take 1 tablet by mouth every afternoon. - NURTEC ODT 75 mg disintegrating tablet - medroxyPROGESTERone (DEPO-PROVERA) 150 mg/mL Inject 1 mL intramuscularly every 12 weeks. - valACYclovir (VALTREX) 500 mg tablet Take 1 tablet by mouth once daily. - phenazopyridine (PYRIDIUM) 100 mg tablet Take 1 tablet by mouth three times daily as needed. - buPROPion SR (WELLBUTRIN SR) 100 mg 12 hr tablet Take 100 mg by mouth once daily. - FLUoxetine HCl 20 mg tablet Take 20 mg by mouth. - methocarbamol (ROBAXIN) 500 mg tablet Take by mouth. - traZODone (DESYREL) 50 mg tablet Take 50 mg by mouth. - ALBUTEROL INHALATION Inhale as instructed. - nabumetone (RELAFEN) 750 mg tablet - SYMBICORT 160-4.5 mcg/actuation inhaler - gabapentin (NEURONTIN) 300 mg capsule - cariprazine (VRAYLAR) 1.5 mg capsule Take 3.5 mg by mouth once daily. - Condoms Latex Lubricated (CONDOMS-NATALIE LUBRICATED) Misc Chanda Use one condom before and during every act of intercourse Facility-Administered Medications as of 10/10/2023 - medroxyPROGESTERone 150 mg injection (DEPO-PROVERA) Meds Comments as of 09/28/2009: All medications reviewed September 28, 2009 Haydee Lord Rn Problem List As Of Date 10/10/2023 Noted Resolved Excessive or frequent menstruation [N92.0] 05/29/2011 Dysmenorrhea [N94.6] 05/29/2011 Dizziness [R42] 05/29/2011 Letter Text Encounter Status:Closed by DANIS LOBATO on 10/10/23 Normal [facility] XR ANKLE MINIMUM 3 VIEWS LEF Ton 09-24-2023 XR ANKLE MINIMUM 3 VIEWS LEFT ORIGINAL EXAMINATION: THREE XRAY VIEWS OF THE LEFT ANKLE 09/24/2023 9:18 pm COMPARISON: Left ankle x-ray 10/10/2021 HISTORY: ORDERING SYSTEM PROVIDED HISTORY: Reason for Exam: pain FINDINGS: Stable well corticated ossicles adjacent to the cuboid bone. No acute fracture or dislocation. No significant degenerative changes. No significant tibiotalar joint effusion. There is mild soft tissue swelling anterior to the ankle joint.. IMPRESSION: No acute osseous abnormality. I have personally reviewed the images of this examination and agree with the resident's findings and interpretation. Interpreted by: Joe Marcelo Preliminary Report By: Flo Ramos Electronically signed By Joe Marcelo Dictated Date: 09/24/2023 9:20:41 PM Prelim Date: 09/24/2023 9:22:16 PM Sign Date: 09/24/2023 9:23:59 PM Ordering Provider: JADE Campbell [facility] ([place]) CNNURSEon 08-29-2023 CNNURSE Nurse Visit (OBGYWM) SANDIE BECERRIL Yves ([id number]) 1990 F Date Time Provider Department 08/29/23 4:00 PM NURSE FRICTION [facility]W [facility] WSTR OBGYWM During your visit today, we recorded the following information about you: Blood pressure Weight 114/76 92.1 kg Nette Brown RN 08/29/2023 3:45 PM Signed Patient identified by name and date of . Sandie Yves Becerril is here for a Depo Provera injection. Patient brought medication. Date last injected: 06/06/23 Depo-Provera, 150 mg, administered IM right upper quadrant gluteus, Lot # [id number], expiration date 04/05/2025. Depo-Provera was given without incident. Date of last menses: Patient's last menstrual period was 06/15/2023 (approximate). Irregular bleeding - No Menses ceased - Yes STD prevention discussed: Yes Patient instructed to return to clinic in 12 weeks. [email or web address] Provider Enedelia Dumont CNM was present in office at time of injection. Nette Brown RN Allergies As of Date: 08/29/2023 Noted Allergy Reaction NAPROXEN 06/26/2014 14 - Other: See Comments Comments: stomache pain AND diarrhea OTC skin products [Other] 03/07/2010 14 - Other: See Comments Comments: Skin sensitivity to certain OTC skin products Date Reviewed: 08/29/2023 Reviewed by: Nette Brown RN - Fully Assessed Reason for Visit: Depo Provera Injection [1655] Primary Visit Diagnosis:Encounter for management and injection of depo-Provera [Z30.42] Prescriptions as of 08/29/2023 - atomoxetine (STRATTERA) 40 mg capsule - amoxicillin (AMOXIL) 500 mg capsule - MAVYRET 100-40 mg tablet - amLODIPine (NORVASC) 5 mg tablet Take 1 tablet by mouth every afternoon. - NURTEC ODT 75 mg disintegrating tablet - medroxyPROGESTERone (DEPO-PROVERA) 150 mg/mL Inject 1 mL intramuscularly every 12 weeks. - valACYclovir (VALTREX) 500 mg tablet Take 1 tablet by mouth once daily. - phenazopyridine (PYRIDIUM) 100 mg tablet Take 1 tablet by mouth three times daily as needed. - buPROPion SR (WELLBUTRIN SR) 100 mg 12 hr tablet Take 100 mg by mouth once daily. - FLUoxetine HCl 20 mg tablet Take 20 mg by mouth. - methocarbamol (ROBAXIN) 500 mg tablet Take by mouth. - traZODone (DESYREL) 50 mg tablet Take 50 mg by mouth. - ALBUTEROL INHALATION Inhale as instructed. - nabumetone (RELAFEN) 750 mg tablet - SYMBICORT 160-4.5 mcg/actuation inhaler - gabapentin (NEURONTIN) 300 mg capsule - cariprazine (VRAYLAR) 1.5 mg capsule Take 3.5 mg by mouth once daily. - Condoms Latex Lubricated (CONDOMS-NATALIE LUBRICATED) [facility] Chanda Use one condom before and during every act of intercourse Facility-Administered Medications as of 08/29/2023 - medroxyPROGESTERone 150 mg injection (DEPO-PROVERA) Meds Comments as of 09/28/2009: All medications reviewed September 28, 2009 Haydee Lord Rn Problem List As Of Date 08/29/2023 Noted Resolved Excessive or frequent menstruation [N92.0] 05/29/2011 Dysmenorrhea [N94.6] 05/29/2011 Dizziness [R42] 05/29/2011 Disposition: Return in 12 weeks (on 11/21/2023). Follow-up and Disposition History for Encounter Date Provider Department Center 08/29/2023 [id number] FRICTION [facility] *MELINA Stoner Encounter Status:Closed by NETTE BROWN on 08/29/23 Normal [facility] CNOVon 07-13-2023 CNOV Office Visit (SPAGWO ) SANDIE BECERRIL ([id number]) 1990 F Date Time Provider Department 07/13/23 8:00 AM ANNA MARIE PÉREZGDIPAK During your visit today, we recorded the following information about you: Pulse Respiration 95/minute 14/minute Lynn Valentin MA 07/13/2023 12:37 PM Signed Review of Systems Constitutional: Negative for activity change, chills, fever and unexpected weight change. Gastrointestinal: Negative for bowel retention or incontinence Genitourinary: Negative for difficulty urinating. Negative for bladder retention or incontinence Musculoskeletal: Positive for arthralgias, back pain, joint swelling, myalgias and neck stiffness. Negative for gait problem and neck pain. Neurological: Positive for weakness, numbness and headaches. Psychiatric/Behavioral: Positive for dysphoric mood and sleep disturbance. Negative for suicidal ideas. The patient is nervous/anxious. Anna Marie Pérez APRN.GRAPE CRUSHER 07/13/2023 12:37 PM Signed [facility] [place] [facility] Today's Date: 07/13/2023 Name: Sandie Becerril : 1990 Purpose: New Patient Evaluation Chief complaint: joint pain and back pain Referring Clinician: Lis Freedman MD. 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 DURATION AND ONSET: The pain complaint has been present for approximately 17 yrs. The pain had a gradual onset. The mechanism of injury is unknown. RED FLAG SYMPTOMS: reports numbness or tingling in left leg. 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 Patient reporting she has seen a pain management physician in the past, has had injections in the past, with no relief this was Dr. Richardson. Patient is also seen Dr. Lino Falcon who is a orthopedic surgeon that does back surgery and was told she is not a surgical candidate. Patient has had physical therapy without relief in the past but it has been over a year. Patient has had an MRI. Patient has tried multiple medications to help with the pain which have not. Patient is a recovering addict and knows opioid therapy cannot be considered. Patient stating that she is states she recently changed jobs and is hoping that that will help with the pain. Having a difficult time with carrying out her activities of daily living. Patient is here to see what could potentially be done to help with her pain. Current Pain Medications: Neuropathics: gabapentin NSAIDS: ibuprofen Muscle Relaxants: Topicals: Other Prescription or OTC Pain Medications: tylenol. Opioids (when applicable): Anti-depressants or Mood-Stabilizers: Prozac, Wellbutrin, vistaril, vraylar Anti-Coagulants: None Therapies Attended (Current or Most Recent): No Current Therapies had PT at [facility] approx 1 year ago [facility] SP[facility] COMBINATION 06/29/2023 07/13/2023 Questionnaire GREENLIGHT GREENLIGHT Completed Date 06/29/2023 07/13/2023 Questionnaire Opiod Risk Tool Opiod Risk Tool Completed Date 06/29/2023 07/13/2023 Comments 11 14 Greenlight Questionnaire GREENLIGHT Completed Date 07/13/2023 Opioid Risk Tool Opiod Risk Tool Date Completed 07/13/2023 Comments 14 CHRISTIANO-7 Anxiety Score 19 Completed Date 07/13/2023 PHQ9P Score 22 Completed Date 07/13/2023 (All drug screens are appropriate unless indicated otherwise) Treatment History: PAIN PROCEDURES: DATE PROCEDURE IMPROVEMENT To date, no interventional pain management procedures performed at this practice. MEDICATIONS Taken TO DATE (for the chief complaint(s)): Neuropathics: Neurontin (Gabapentin) NSAIDS: Motrin (Ibuprofen) Muscle Relaxants: Lioresal (Baclofen) no relief Topicals: compound cream helpful but is difficult to use with her job lidocaine patches to sticky Other Prescription or OTC Pain Medications: tylenol Opioids: None Compliance: PDMP website checked and validated on 07/13/2023 by Anna Marie Pérez APRN.GRAPE CRUSHER All prescriptions have been APPROPRIATELY filled. No suspicious activity was identified. AG SPINE COMBINATION 06/29/2023 07/13/2023 Questionnaire GREENLIGHT GREENLIGHT Completed Date 06/29/2023 07/13/2023 Questionnaire Opiod Risk Tool Opiod Risk Tool Completed (more content not included)... Normal [facility] CNOVon 06-29-2023 CNOV Office Visit (SPAGWO ) BECERRIL,SANDIE L ([id number]) 1990 F Date Time Provider Department 06/29/23 9:00 AM ANNA MARIE PÉREZ During your visit today, we recorded the following information about you: Pulse Respiration 86/minute 14/minute Anna Marie Pérez APRN.CNP 06/29/2023 9:38 AM Signed [facility] Today's Date: 06/28/2023 Name: Sandie Becerril : 1990 Purpose: New Patient Consultation Pt was not seen at this appointment. While going through the pt's history, the pt admitted to having C-Diff, newly diagnosed, reported she did not start treatment. Pt stating she did not know she needed to isolate, she did not know C-Diff wqs contagious. Pt was sent home without being seen and encouraged to schedule another appt when able to return to the office. WON Smith Lori, MA 06/29/2023 9:38 AM Signed Review of Systems Constitutional: Negative for activity change, chills, fever and unexpected weight change. Gastrointestinal: Negative for bowel retention or incontinence Genitourinary: Negative for difficulty urinating. Negative for bladder retention or incontinence Musculoskeletal: Positive for arthralgias, back pain, gait problem, myalgias, neck pain and neck stiffness. Negative for joint swelling. Neurological: Positive for numbness. Negative for weakness and headaches. Psychiatric/Behavioral: Positive for dysphoric mood. Negative for sleep disturbance and suicidal ideas. The patient is nervous/anxious. Referring Provider: LIS FREEDMAN [[id number]] Allergies As of Date: 06/29/2023 Noted Allergy Reaction NAPROXEN 06/26/2014 14 - Other: See Comments Comments: stomache pain AND diarrhea OTC skin products [Other] 03/07/2010 14 - Other: See Comments Comments: Skin sensitivity to certain OTC skin products Date Reviewed: 06/29/2023 Reviewed by: Lynn Valentin MA - Fully Assessed Reason for Visit: New Patient Evaluation [154] Back Pain [12] Cmt: Lower Leg Pain [1219] Cmt: Bilateral - L>R Visit Diagnosis:Pain in joint, multiple sites [M25.50] Order(s):CONSULT TO JOSUE MGT [19990812] Order #: [id number]: 1 Prescriptions as of 06/29/2023 - amoxicillin (AMOXIL) 500 mg capsule - MAVYRET 100-40 mg tablet - amLODIPine (NORVASC) 5 mg tablet Take 1 tablet by mouth every afternoon. - NURTEC ODT 75 mg disintegrating tablet - medroxyPROGESTERone (DEPO-PROVERA) 150 mg/mL Inject 1 mL intramuscularly every 12 weeks. - valACYclovir (VALTREX) 500 mg tablet Take 1 tablet by mouth once daily. - phenazopyridine (PYRIDIUM) 100 mg tablet Take 1 tablet by mouth three times daily as needed. - buPROPion SR (WELLBUTRIN SR) 100 mg 12 hr tablet Take 100 mg by mouth once daily. - FLUoxetine HCl 20 mg tablet Take 20 mg by mouth. - methocarbamol (ROBAXIN) 500 mg tablet Take by mouth. - traZODone (DESYREL) 50 mg tablet Take 50 mg by mouth. - ALBUTEROL INHALATION Inhale as instructed. - nabumetone (RELAFEN) 750 mg tablet - SYMBICORT 160-4.5 mcg/actuation inhaler - gabapentin (NEURONTIN) 300 mg capsule - cariprazine (VRAYLAR) 1.5 mg capsule Take 3.5 mg by mouth once daily. - Condoms Latex Lubricated (CONDOMS-NATALIE LUBRICATED) [facility] Chanda Use one condom before and during every act of intercourse Facility-Administered Medications as of 06/29/2023 - medroxyPROGESTERone 150 mg injection (DEPO-PROVERA) - medroxyPROGESTERone 150 mg injection (DEPO-PROVERA) Meds Comments as of 09/28/2009: All medications reviewed todaySeptember 28, 2009 Haydee Lord Rn Problem List As Of Date 06/29/2023 Noted Resolved Excessive or frequent menstruation [N92.0] 05/29/2011 Dysmenorrhea [N94.6] 05/29/2011 Dizziness [R42] 05/29/2011 Encounter Status:Closed by ANNA MARIE PÉREZ on 06/29/23 [facility] 06[facility]2023 [facility] SAND[facility] BECERRIL ([id number]) 1990 F Date Time Provider Department 06/25/23 LIS FREEDMAN During your visit today, we recorded the following information about you: Usha Munoz LPN 06/25/2023 8:59 AM Signed ----- Message from Lis Freedman MD sent at 06/20/2023 12:56 PM EST ----- Does she have UTI symptoms? Any allergies ? Usha Munoz LPN 06/25/2023 9:06 AM Signed Patient states, I have a UTI going on. Patient was seen at [facility], an [facility]gent [facility] through [facility]. Patient was started on Macrobid and she is going to follow up with her PCP. Allergies reviewed in Epic. Usha Munoz LPN Allergies As of Date: 06/25/2023 Noted Allergy Reaction NAPROXEN 06/26/2014 14 - Other: See Comments Comments: stomache pain AND diarrhea OTC skin products [Other] 03/07/2010 14 - Other: See Comments Comments: Skin sensitivity to certain OTC skin products Date Reviewed: 06/25/2023 Reviewed by: Usah Munoz LPN - Fully Assessed Reason for Visit: Results [95] Prescriptions as of 06/25/2023 - amoxicillin (AMOXIL) 500 mg capsule - MAVYRET 100-40 mg tablet TAKE 3 TABLETS BY MOUTH EVERY DAY WITH FOOD - amLODIPine (NORVASC) 5 mg tablet Take 1 tablet by mouth every afternoon. - NURTEC ODT 75 mg disintegrating tablet - medroxyPROGESTERone (DEPO-PROVERA) 150 mg/mL Inject 1 mL intramuscularly every 12 weeks. - valACYclovir (VALTREX) 500 mg tablet Take 1 tablet by mouth once daily. - phenazopyridine (PYRIDIUM) 100 mg tablet Take 1 tablet by mouth three times daily as needed. - buPROPion SR (WELLBUTRIN SR) 100 mg 12 hr tablet Take 100 mg by mouth once daily. - FLUoxetine HCl 20 mg tablet Take 20 mg by mouth. - methocarbamol (ROBAXIN) 500 mg tablet Take by mouth. - traZODone (DESYREL) 50 mg tablet Take 50 mg by mouth. - ALBUTEROL INHALATION Inhale as instructed. - nabumetone (RELAFEN) 750 mg tablet - SYMBICORT 160-4.5 mcg/actuation inhaler - gabapentin (NEURONTIN) 300 mg capsule -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 SPECIMEN Ordering Facility: [facility] Address: [address] [place] [address] Performed By: #### X SSAB, 52978-7, 55040-2 #### [facility] CLIA [id number] [address] [place] [address] [place] Protein [Mass/Vol] 7.8 g/dL Normal 6.3-8.0 [facility] Comment on above: Order Comment: Speci men Type: BLOOD SPECIMEN Ordering Facility: [facility] Address: [address] [place] [address] Performed By: #### X SSAB, 59616-4, 55627-3 #### [facility] CLIA [id number] [address] [place] [address] [place] Sodium [Moles/Vol] 142 mmol/L Normal 136-144 [facility] Comment on above: Order Comment: Speci men Type: BLOOD SPECIMEN Ordering Facility: [facility] Address: [address] [place] [address] Performed By: #### X SSAB, 66303-3, 72483-7 #### [facility] CLIA [id number] [address] [place] [address] [place] Urea nitrogen [Mass/Vol] 14 mg/dL Normal 7-21 [facility] Comment on above: Order Comment: Speci men Type: BLOOD SPECIMEN Ordering Facility: [facility] Address: [address] [place] [address] Performed By: #### X SSAB, 53356-3, 60685-5 #### [facility] CLIA [id number] [address] [place] [address] [place] Creatinine Unsp time (U) [Ma ss/Vol]on 06-18-2023 Creatinine (U) [Mass/Vol] 107.7 mg/dL 42.2 - 237.9 mg/dL [facility] Creatinine (U) [Mass/Vol] 107.7 mg/dL Normal 42.2-237.9 [facility] Comment on above: Order Comment: Speci men Type: URINE SPECIMEN Ordering Facility: [facility] Address: [address] [place] [address] Performed By: #### 3 5674-1, 2888-6 #### [facility] CLIA [id number] [address] [place] [address] [place] Cyclic citrullinated peptide IgG Qnon 06-18-2023 CCP ANTIBODY IGG QUALITATIVE Negative Normal Negative [facility] Comment on above: Order Comment: Speci men Type: BLOOD SPECIMEN Ordering Facility: [facility] Address: [address] [place] [address] Performed By: #### X SSAB, 22070-4, 13246-9 #### [facility] CLIA [id number] [address] [place] [address] [place] DNA ANTIBODY DS BLDon 2023 DNA ANTIBODY 13 IU/mL Normal <=200 [facility] Comment on above: Order Comment: Speci men Type: BLOOD SPECIMEN Ordering Facility: [facility] Address: [address] [place] [address] Result Comment: Nega tive: <200 IU/mL Equivocal: 201-300 IU/mL Moderate Positive: 301-800 IU/mL Strong Positive: >801 IU/mL Performed By: #### X SSAB, 17212-6, 97732-8 #### [facility] CLIA [id number] [address] [place] [address] [place] DNA ANTIBODY QUALITATIVE INTERPRETATION Negative Normal Negative [facility] Comment on above: Order Comment: Speci men Type: BLOOD SPECIMEN Ordering Facility: [facility] Address: [address] [place] [address] Performed By: #### X SSAB, 35537-3, #### [facility] CLIA [id number] [address] [place] [address] [place] PAT DYE WINCH OPERATOR Ab Ser-aCncon 2023 Ribonucleoprotein extractable nuclear Ab Qn (S) 0.4 AI Normal <1.0 [facility] Comment on above: Order Comment: Speci men Type: BLOOD SPECIMEN Ordering Facility: [facility] Address: [address] [place] [address] Performed By: #### X SSAB, 09225-4, 30796-3 #### [facility] CLIA [id number] [address] [place] [address] [place] PAT SM IgG Ser-aCncon 2023 June extractable nuclear IgG Qn (S) <0.2 Normal <1.0 [facility] Comment on above: Order Comment: Speci men Type: BLOOD SPECIMEN Ordering Facility: [facility] Address: [address] [place] [address] Performed By: #### X SSAB, 28673-8, 19639-9 #### [facility] CLIA [id number] [address] [place] [address] [place] No Panel Informationon 06-18 [facility] PROTEIN RANDOM URon 02-12-20 24 Protein (U) [Mass/Vol] 7 mg/dL 0 - 20 mg/dL [facility] Prot Ur-mCncon 06-18-2023 Protein (U) [Mass/Vol] 7 mg/dL Normal 0-20 [facility] Comment on above: Order Comment: Speci men Type: URINE SPECIMEN Ordering Facility: [facility] Address: [address] [place] [address] Performed By: #### 3 5674-1, 2888-6 #### [facility] CLIA [id number] [address] [place] [address] [place] Rheumatoid fact SerPl-aCncon 06-18-2023 Rheumatoid factor Qn 16 [IU]/mL High <16 [facility] Comment on above: Order Comment: Speci men Type: BLOOD SPECIMEN Ordering Facility: [facility] Address: [address] [place] [address] Performed By: #### 1 1572-5 #### [facility] CLIA [id number] [address] [place] [address] [place] Ribonucleoprotein extractabl e nuclear Ab Qn (S)on 06-18-2023 ANTI-DYE WINCH OPERATOR QUAL Negative Normal Negative [facility] Comment on above: Order Comment: Speci men Type: BLOOD SPECIMEN Ordering Facility: [facility] Address: [address] [place] [address] Performed By: #### X SSAB, 93243-7, 01959-4 #### [facility] CLIA [id number] [address] [place] [address] [place] SJOGREN ABS SSA/SSBon 2023 ANTI-SSB QUAL Negative Normal Negative [facility] Comment on above: Order Comment: Speci men Type: BLOOD SPECIMEN Ordering Facility: [facility] Address: [address] [place] [address] Result Comment: Anti -SSB (anti-La) antibody is used as an aid in diagnosis of a variety of systemic autoimmune diseases, especially for Sjogren's syndrome and systemic lupus erythematosus. Clinical correlation is required. Test Methodology: Multiplex flow immunoassay. Performed By: #### X SSAB, 47817-7, 50794-7 #### [facility] CLIA [id number] [address] [place] [address] [place] Sjogrens syndrome-A extractable nuclear Ab Qn (S) <0.2 Normal <1.0 [facility] Comment on above: Order Comment: Speci men Type: BLOOD SPECIMEN Ordering Facility: [facility] Address: [address] [place] [address] Performed By: #### X SSAB, 88541-2, 20229-2 #### [facility] CLIA [id number] [address] [place] [address] [place] Sjogrens syndrome-B extractable nuclear Ab Qn (S) <0.2 Normal <1.0 [facility] Comment on above: Order Comment: Speci men Type: BLOOD SPECIMEN Ordering Facility: [facility] Address: [address] [place] [address] Performed By: #### X SSAB, 62625-6, 42478-7 #### [facility] CLIA [id number] [address] [place] [address] [place] SSA ANTIBODY QUAL Negative Normal Negative [facility] Comment on above: Order Comment: Speci men Type: BLOOD SPECIMEN Ordering Facility: [facility] Address: [address] [place] [address] Result Comment: Anti -SSA (anti-Ro) antibody is used as an aid in diagnosis of a variety of systemic autoimmune diseases, Sjogren's syndrome among others. Clinical correlation is required. Test Methodology: Multiplex flow immunoassay. ??? \X09\ Performed By: #### X SSAB, 50627-1, 77807-3 #### [facility] CLIA [id number] [address] [place] [address] [place] June extractable nuclear Ig G Qn (S)on 06-18-2023 SM ANTIBODY QUAL Negative Normal Negative [facility] Comment on above: Order Comment: Speci men Type: BLOOD SPECIMEN Ordering Facility: [facility] Address: [address] [place] [address] Result Comment: Anti -Sm (June) antibody is used as an aid in diagnosis of systemic lupus erythematosus and its presence is associated with renal disease. A negative result cannot rule out systemic lupus erythematosus. Clinical correlation is required. Test Methodology: Multiplex flow immunoassay. Performed By: #### X SSAB, 72175-7, 62635-0 #### [facility] CLIA [id number] [address] [place] [address] [place] [address] [place] Urinalysis complete panel (U )on 06-18-2023 Bilirubin Ql (U) Negative Negative [facility] Clarity (Unsp spec) Turbid Abnormal Clear [facility] Color (U) Light Yellow yellow [facility] Epithelial cells LM.HPF (Urine sed) [#/Area] Few [facility] Glucose Test strip (U) [Mass/Vol] Negative Trace, Negative [facility] Hemoglobin Ql (U) Trace Negative, Trace [facility] Ketones Ql (U) Negative Negative, Trace [facility] Leukocyte esterase Test strip Ql (U) 500 Anika/uL Abnormal Negative, 25 Anika/uL [facility] Nitrite Ql (U) Negative Negative [facility] pH (U) 5.5 [pH] 5.0 - 8.0 [facility] Protein (U) [Mass/Vol] Negative Trace , Negative [facility] RBC LM.HPF (Urine sed) [#/Area] /[HPF] Abnormal 0-3 /HPF [facility] Specific gravity (U) [Rel density] 1.017 1.005 - 1.030 [facility] Urobilinogen Ql (U) Normal Normal [facility] WBC LM.HPF (Urine sed) [#/Area] /[HPF] Abnormal 0-5 /HPF [facility] Bilirubin Ql (U) Negative Normal Negative [facility] Comment on above: Order Comment: Speci men Type: URINE SPECIMEN Ordering Facility: [facility] Address: [address] [place] [address] Performed By: #### 3 5674-1, 2888-6 #### [facility] CLIA [id number] [address] [place] Clarity (Unsp spec) Turbid Abnormal Clear [facility] Comment on above: Order Comment: Speci men Type: URINE SPECIMEN Ordering Facility: [facility] Address: [address] [place] [address] Performed By: #### 3 5674-1, 2887-6 #### [facility] CLIA [id number] [address] OF [place] Color (U) Light Yellow Normal yellow [facility] Comment on above: Order Comment: Speci men Type: URINE SPECIMEN Ordering Facility: [facility] Address: [address] [place] [address] Performed By: #### 3 5674-1, 2887-6 #### [facility] CLIA [id number] [address] Epithelial cells LM.HPF (Urine sed) [#/Area] Few Normal [facility] Comment on above: Order Comment: Speci men Type: URINE SPECIMEN Ordering Facility: [facility] Address: [address] [place] [address] Performed By: #### 3 5674-1, 2887-6 #### [facility] CLIA [id number] [address] OF [place] Glucose Test strip (U) [Mass/Vol] Negative Normal Trace, Negative [facility] Comment on above: Order Comment: Speci men Type: URINE SPECIMEN Ordering Facility: [facility] Address: [address] [place] [address] Performed By: #### 3 5674-1, 2887-6 #### [facility] CLIA [id number] [address] Hemoglobin Ql (U) Trace Normal Negative, Trace [facility] Comment on above: Order Comment: Speci men Type: URINE SPECIMEN Ordering Facility: [facility] Address: [address] [place] [address] Performed By: #### 3 5674-1, 2887-6 #### [facility] CLIA [id number] [address] OF [facility] Ketones Ql (U) Negative Normal Negative, Trace [facility] Comment on above: Order Comment: Speci men Type: URINE SPECIMEN Ordering Facility: [facility] Address: [address] [place] [address] Performed By: #### 3 5674-1, 2887-6 #### [facility] CLIA [id number] [address] Leukocyte esterase Test strip Ql (U) 500 Ankia/uL Abnormal Negative, 25 Anika/uL [facility] Comment on above: Order Comment: Speci men Type: URINE SPECIMEN Ordering Facility: [facility] Address: [address] [place] [address] Performed By: #### 3 5674-1, 6 #### [facility] CLIA [id number] [address] Nitrite Ql (U) Negative Normal Negative [facility] Comment on above: Order Comment: Speci men Type: URINE SPECIMEN Ordering Facility: [facility] Address: [address] [place] [address] Performed By: #### 3 5674-1, 2887-6 #### [facility] CLIA [id number] [address] OF [facility] pH (U) 5.5 [pH] Normal 5.0-8.0 [facility] Comment on above: Order Comment: Speci men Type: URINE SPECIMEN Ordering Facility: [facility] Address: [address] [place] [address] Performed By: #### 3 5674-1, 2888-6 #### [facility] CLIA [id number] [address] Protein (U) [Mass/Vol] Negative Normal Trace , Negative [facility] Comment on above: Order Comment: Speci men Type: URINE SPECIMEN Ordering Facility: [facility] Address: [address] [place] [address] Performed By: #### 3 5674-1, 2888-6 #### [facility] CLIA [id number] [address] RBC LM.HPF (Urine sed) [#/Area] /[HPF] Abnormal 0-3 /HPF [facility] Comment on above: Order Comment: Speci men Type: URINE SPECIMEN Ordering Facility: [facility] Address: [address] [place] [address] Performed By: #### 3 5674-1, 6 #### [facility] CLIA [id number] [address] Specific gravity (U) [Rel density] 1.017 Normal 1.005-1.030 [facility] Comment on above: Order Comment: Speci men Type: URINE SPECIMEN Ordering Facility: [facility] Address: [address] [place] [address] Performed By: #### 3 5674-1, 6 #### [facility] CLIA [id number] [address] [place] [address] Urobilinogen Ql (U) Normal Normal Normal [facility] Comment on above: Order Comment: Speci men Type: URINE SPECIMEN Ordering Facility: [facility] Address: [address] [place] [address] Performed By: #### 3 5674-1, 6 #### [facility] CLIA [id number] [address] [place] [address] WBC LM.HPF (Urine sed) [#/Area] /[HPF] Abnormal 0-5 /HPF [facility] Comment on above: Order Comment: Speci men Type: URINE SPECIMEN Ordering Facility: [facility] Address: [address] [place] [address] Performed By: #### 3 5674-1, 2887-6 #### [facility] CLIA [id number] [address] Urinalysis complete pnl Uron 06-18-2023 Urinalysis complete panel (U) COLOR: Light Yellow CLARITY: Turbid GLUCOSE, URINE: Negative BILIRUBIN, URINE: Negative KETONES, URINE: Negative SPECIFIC GRAVITY, UR: 1.017 HEMOGLOBIN/BLOOD, UR: Trace PH, URINE: 5.5 PROTEIN, URINE: Negative UROBILINOGEN: Normal NITRITES: Negative LEUKEST: 500 Anika/uL WBC, URINE: >25 /HPF RBC, URINE: >25 /HPF SQUAMOUS EPITHELIAL CELLS: Few ORGANISM ID: 1 10,000 -<50,000 CFU/ml Proteus species Insignificant colony count. No further workup. ORGANISM ID: 2 10,000 -<50,000 CFU/ml Normal urogenital josé miguel Normal [facility] Comment on above: Order Comment: Speci men Type: URINE SPECIMEN Ordering Facility: [facility] Address: [address] [place] [address] Performed By: #### 3 5674-1, 2888-6 #### [facility] CLIA [id number] [address] [place] [address] [place] VITAMIN D 25 HYDROXYon 06-18 25-hydroxyvitamin D3 [Mass/Vol] 25.4 ng/mL Low >=30.0 ng/mL [facility] XR HAND 3V PA/LAT/OBL LTon 0 06-18-2023 XR HAND 3V PA/LAT/OBL LT * * *Final Report* * * DATE OF EXAM: Jun 18 2023 11:28AM AWX [id number] - XR HAND 3V PA/LAT/OBL LT / PROCEDURE REASON: Pain in joint, multiple sites * * * * Physician Interpretation * * * * EXAM TITLE: XR LUMBAR 3V AP/LAT/L5-S1, XR HAND 3V PA/LAT/OBL RT, XR HIP ANGELES 5V PEL+ AP/LAT EA HIP, XR SI JTS 2V AP PELV/RANDLE, XR KNEE SURVEY 1V AP ANGELES, XR HAND 3V PA/LAT/OBL LT DATE: 06/18/2023 COMPARISON: Previous knee examination from 05/30/2023 CLINICAL INDICATION/HISTORY: Diffuse pain TECHNIQUE: AP, lateral and coned-down lateral views of the lumbar spine, AP pelvis with a Randle view of the sacroiliac joints, AP and frog-leg lateral views of each hip, AP weightbearing view of the knees. And PA, lateral and oblique views of each hand. FINDINGS: Lumbar spine: Very slight levorotoscoliosis. The lumbar vertebral bodies are normal in height without fracture or compression deformity. There is minimal degenerative disc disease at L1-2. No facet joint arthrosis. Normal soft tissues. Sacroiliac joints: Cortical margins of each sacroiliac joint are maintained without erosion. No subcortical sclerosis or bony ankylosis. No lytic or blastic lesion is visualized. Bilateral hips: No significant arthritic change. No fracture or stress-related change. No femoral head AVN. Soft tissues are normal. AP weightbearing view of the knees: No acute bony abnormality is seen at either knee. No fracture or dislocation. No significant arthritic change. Right hand: All visualized soft tissues and bony structures are normal. Joint spaces are preserved. Left hand: All visualized soft tissues and bony structures are normal. Joint spaces are preserved. IMPRESSION: 1. Very minimal levorotoscoliosis involving the lumbar spine. 2. Minimal degenerative disc disease at L1-2. 3. Otherwise, no acute or focal abnormality throughout the regions evaluated. Mail Processing Machine Operator: [facility] Transcribe Date/Time: Jun 18 2023 12:45P Dictated by : MAURISIO ROBLES MD This examination was interpreted and the report reviewed and electronically signed by: MAURISIO ROBLES MD on Jun 18 2023 12:53PM EST [id number] Normal [facility] XR HAND 3V PA/LAT/OBL RTon 0 06-18-2023 XR HAND 3V PA/LAT/OBL RT * * *Final Report* * * DATE OF EXAM: Jun 18 2023 11:28AM AWX [id number] - XR HAND 3V PA/LAT/OBL RT / PROCEDURE REASON: Pain in joint, multiple sites * * * * Physician Interpretation * * * * EXAM TITLE: XR LUMBAR 3V AP/LAT/L5-S1, XR HAND 3V PA/LAT/OBL RT, XR HIP ANGELES 5V PEL+ AP/LAT EA HIP, XR SI JTS 2V AP PELV/RANDLE, XR KNEE SURVEY 1V AP ANGELES, XR HAND 3V PA/LAT/OBL LT DATE: 06/18/2023 COMPARISON: Previous knee examination from 05/30/2023 CLINICAL INDICATION/HISTORY: Diffuse pain TECHNIQUE: AP, lateral and coned-down lateral views of the lumbar spine, AP pelvis with a Randle view of the sacroiliac joints, AP and frog-leg lateral views of each hip, AP weightbearing view of the knees. And PA, lateral and oblique views of each hand. FINDINGS: Lumbar spine: Very slight levorotoscoliosis. The lumbar vertebral bodies are normal in height without fracture or compression deformity. There is minimal degenerative disc disease at L1-2. No facet joint arthrosis. Normal soft tissues. Sacroiliac joints: Cortical margins of each sacroiliac joint are maintained without erosion. No subcortical sclerosis or bony ankylosis. No lytic or blastic lesion is visualized. Bilateral hips: No significant arthritic change. No fracture or stress-related change. No femoral head AVN. Soft tissues are normal. AP weightbearing view of the knees: No acute bony abnormality is seen at either knee. No fracture or dislocation. No significant arthritic change. Right hand: All visualized soft tissues and bony structures are normal. Joint spaces are preserved. Left hand: All visualized soft tissues and bony structures are normal. Joint spaces are preserved. IMPRESSION: 1. Very minimal levorotoscoliosis involving the lumbar spine. 2. Minimal degenerative disc disease at L1-2. 3. Otherwise, no acute or focal abnormality throughout the regions evaluated. Mail Processing Machine Operator: PSCB Transcribe Date/Time: Jun 18 2023 12:45P Dictated by : MAURISIO ROBLES MD This examination was interpreted and the report reviewed and electronically signed by: MAURISIO ROBLES MD on Jun 18 2023 12:53PM EST [id number] Normal [facility] XR HIP ANGELES 5V PEL+ AP/LAT EA HIPon 06-18-2023 XR HIP ANGELES 5V PEL+ AP/LAT EA HIP * * *Final Report* * * DATE OF EXAM: Jun 18 2023 11:28AM [id number] - XR HIP ANGELES 5V PEL+ AP/LAT EA HIP / PROCEDURE REASON: Pain in joint, multiple sites * * * * Physician Interpretation * * * * EXAM TITLE: XR LUMBAR 3V AP/LAT/L5-S1, XR HAND 3V PA/LAT/OBL RT, XR HIP ANGELES 5V PEL+ AP/LAT EA HIP, XR SI JTS 2V AP PELV/RANDLE, XR KNEE SURVEY 1V AP ANGELES, XR HAND 3V PA/LAT/OBL LT DATE: 06/18/2023 COMPARISON: Previous knee examination from 05/30/2023 CLINICAL INDICATION/HISTORY: Diffuse pain TECHNIQUE: AP, lateral and coned-down lateral views of the lumbar spine, AP pelvis with a Randle view of the sacroiliac joints, AP and frog-leg lateral views of each hip, AP weightbearing view of the knees. And PA, lateral and oblique views of each hand. FINDINGS: Lumbar spine: Very slight levorotoscoliosis. The lumbar vertebral bodies are normal in height without fracture or compression deformity. There is minimal degenerative disc disease at L1-2. No facet joint arthrosis. Normal soft tissues. Sacroiliac joints: Cortical margins of each sacroiliac joint are maintained without erosion. No subcortical sclerosis or bony ankylosis. No lytic or blastic lesion is visualized. Bilateral hips: No significant arthritic change. No fracture or stress-related change. No femoral head AVN. Soft tissues are normal. AP weightbearing view of the knees: No acute bony abnormality is seen at either knee. No fracture or dislocation. No significant arthritic change. Right hand: All visualized soft tissues and bony structures are normal. Joint spaces are preserved. Left hand: All visualized soft tissues and bony structures are normal. Joint spaces are preserved. IMPRESSION: 1. Very minimal levorotoscoliosis involving the lumbar spine. 2. Minimal degenerative disc disease at L1-2. 3. Otherwise, no acute or focal abnormality throughout the regions evaluated. Mail Processing Machine Operator: MONSERRAT Transcribe Date/Time: Jun 18 2023 12:45P Dictated by : MAURISIO ROBLES MD This examination was interpreted and the report reviewed and electronically signed by: MAURISIO ROBLES MD on Jun 18 2023 12:53PM EST [id number] Normal [facility] XR KNEE SURVEY 1V AP BILon 0 06-18-2023 XR KNEE SURVEY 1V AP ANGELES * * *Final Report* * * DATE OF EXAM: Jun 18 2023 11:28AM [id number] - XR KNEE SURVEY 1V AP ANGELES / PROCEDURE REASON: Pain in joint, multiple sites * * * * Physician Interpretation * * * * EXAM TITLE: XR LUMBAR 3V AP/LAT/L5-S1, XR HAND 3V PA/LAT/OBL RT, XR HIP ANGELES 5V PEL+ AP/LAT EA HIP, XR SI JTS 2V AP PELV/RANDLE, XR KNEE SURVEY 1V AP ANGELES, XR HAND 3V PA/LAT/OBL LT DATE: 06/18/2023 COMPARISON: Previous knee examination from 05/30/2023 CLINICAL INDICATION/HISTORY: Diffuse pain TECHNIQUE: AP, lateral and coned-down lateral views of the lumbar spine, AP pelvis with a Randle view of the sacroiliac joints, AP and frog-leg lateral views of each hip, AP weightbearing view of the knees. And PA, lateral and oblique views of each hand. FINDINGS: Lumbar spine: Very slight levorotoscoliosis. The lumbar vertebral bodies are normal in height without fracture or compression deformity. There is minimal degenerative disc disease at L1-2. No facet joint arthrosis. Normal soft tissues. Sacroiliac joints: Cortical margins of each sacroiliac joint are maintained without erosion. No subcortical sclerosis or bony ankylosis. No lytic or blastic lesion is visualized. Bilateral hips: No significant arthritic change. No fracture or stress-related change. No femoral head AVN. Soft tissues are normal. AP weightbearing view of the knees: No acute bony abnormality is seen at either knee. No fracture or dislocation. No significant arthritic change. Right hand: All visualized soft tissues and bony structures are normal. Joint spaces are preserved. Left hand: All visualized soft tissues and bony structures are normal. Joint spaces are preserved. IMPRESSION: 1. Very minimal levorotoscoliosis involving the lumbar spine. 2. Minimal degenerative disc disease at L1-2. 3. Otherwise, no acute or focal abnormality throughout the regions evaluated. Mail Processing Machine Operator: PSCB Transcribe Date/Time: Jun 18 2023 12:45P Dictated by : MAURISIO ROBLES MD This examination was interpreted and the report reviewed and electronically signed by: MAURISIO ROBLES MD on Jun 18 2023 12:53PM EST [id number] Normal [facility] XR LUMBAR 3V AP/LAT/L5-S1on 06-18-2023 XR LUMBAR 3V AP/LAT/L5-S1 * * *Final Report* * * DATE OF EXAM: Jun 18 2023 11:28AM [id number] - XR LUMBAR 3V AP/LAT/L5-S1 / PROCEDURE REASON: Pain in joint, multiple sites * * * * Physician Interpretation * * * * EXAM TITLE: XR LUMBAR 3V AP/LAT/L5-S1, XR HAND 3V PA/LAT/OBL RT, XR HIP ANGELES 5V PEL+ AP/LAT EA HIP, XR SI JTS 2V AP PELV/RANDLE, XR KNEE SURVEY 1V AP ANGELES, XR HAND 3V PA/LAT/OBL LT DATE: 06/18/2023 COMPARISON: Previous knee examination from 05/30/2023 CLINICAL INDICATION/HISTORY: Diffuse pain TECHNIQUE: AP, lateral and coned-down lateral views of the lumbar spine, AP pelvis with a Randle view of the sacroiliac joints, AP and frog-leg lateral views of each hip, AP weightbearing view of the knees. And PA, lateral and oblique views of each hand. FINDINGS: Lumbar spine: Very slight levorotoscoliosis. The lumbar vertebral bodies are normal in height without fracture or compression deformity. There is minimal degenerative disc disease at L1-2. No facet joint arthrosis. Normal soft tissues. Sacroiliac joints: Cortical margins of each sacroiliac joint are maintained without erosion. No subcortical sclerosis or bony ankylosis. No lytic or blastic lesion is visualized. Bilateral hips: No significant arthritic change. No fracture or stress-related change. No femoral head AVN. Soft tissues are normal. AP weightbearing view of the knees: No acute bony abnormality is seen at either knee. No fracture or dislocation. No significant arthritic change. Right hand: All visualized soft tissues and bony structures are normal. Joint spaces are preserved. Left hand: All visualized soft tissues and bony structures are normal. Joint spaces are preserved. IMPRESSION: 1. Very minimal levorotoscoliosis involving the lumbar spine. 2. Minimal degenerative disc disease at L1-2. 3. Otherwise, no acute or focal abnormality throughout the regions evaluated. Mail Processing Machine Operator: PSCB Transcribe Date/Time: Jun 18 2023 12:45P Dictated by : MAURISIO ROBLES MD This examination was interpreted and the report reviewed and electronically signed by: MAURISIO ROBLES MD on Jun 18 2023 12:53PM EST [id number] Normal [facility] XR SI JTS 2V AP PELV/FERGUSO Non 06-18-2023 XR SI JTS 2V AP PELV/RANDLE * * *Final Report* * * DATE OF EXAM: Jun 18 2023 11:28AM [id number] [id number] - XR SI JTS 2V AP PELV/RANDLE / PROCEDURE REASON: Pain in joint, multiple sites * * * * Physician Interpretation * * * * EXAM TITLE: XR LUMBAR 3V AP/LAT/L5-S1, XR HAND 3V PA/LAT/OBL RT, XR HIP ANGELES 5V PEL+ AP/LAT EA HIP, XR SI JTS 2V AP PELV/RANDLE, XR KNEE SURVEY 1V AP ANGELES, XR HAND 3V PA/LAT/OBL LT DATE: 06/18/2023 COMPARISON: Previous knee examination from 05/30/2023 CLINICAL INDICATION/HISTORY: Diffuse pain TECHNIQUE: AP, lateral and coned-down lateral views of the lumbar spine, AP pelvis with a Randle view of the sacroiliac joints, AP and frog-leg lateral views of each hip, AP weightbearing view of the knees. And PA, lateral and oblique views of each hand. FINDINGS: Lumbar spine: Very slight levorotoscoliosis. The lumbar vertebral bodies are normal in height without fracture or compression deformity. There is minimal degenerative disc disease at L1-2. No facet joint arthrosis. Normal soft tissues. Sacroiliac joints: Cortical margins of each sacroiliac joint are maintained without erosion. No subcortical sclerosis or bony ankylosis. No lytic or blastic lesion is visualized. Bilateral hips: No significant arthritic change. No fracture or stress-related change. No femoral head AVN. Soft tissues are normal. AP weightbearing view of the knees: No acute bony abnormality is seen at either knee. No fracture or dislocation. No significant arthritic change. Right hand: All visualized soft tissues and bony structures are normal. Joint spaces are preserved. Left hand: All visualized soft tissues and bony structures are normal. Joint spaces are preserved. IMPRESSION: 1. Very minimal levorotoscoliosis involving the lumbar spine. 2. Minimal degenerative disc disease at L1-2. 3. Otherwise, no acute or focal abnormality throughout the regions evaluated. Mail Processing Machine Operator: MONSERRAT Transcribe Date/Time: Jun 18 2023 12:45P Dictated by : MAURISIO ROBLES MD This examination was interpreted and the report reviewed and electronically signed by: MAURISIO ROBLES MD on Jun 18 2023 12:53PM EST [id number] Normal [facility] cCP IgG SerPl-aCncon 024 Cyclic citrullinated peptide IgG Qn <15 Normal <20 [facility] Comment on above: Order Comment: Speci men Type: BLOOD SPECIMEN Ordering Facility: [facility] Address: [address] [place] [address] Performed By: #### X SSAB, 97870-6, 89765-1 #### [facility] CLIA [id number] [address] [place] [address] 06-11-2023 ANNEN Telephone (MELINA) ROBERTSANDIE Yves ([id number]) 1990 F Date Time Provider Department 06/11/23 ANGELINA BARTLETT During your visit today, we recorded the following information about you: Pratima Carmona RN 06/11/2023 1:56 PM Signed Patient was on her menses when she had her last depo on 06/06/23. She normally doesn't have anything more than spotting. Her bleeding stopped a couple of days after the depo. Started bleeding again today. Passed one blood clot the size of a quarter. When she removed her tampon this afternoon there was no blood. Cramping pain of 8 out of 10 today. Taking Pamprin. She's been on the Depo for a couple of years. Aware AG returns to the office tomorrow. ERICKA Mas Amy, ROCHELLE.GRAPE CRUSHER 06/13/2023 6:53 AM Signed Please reassure her that a change in bleeding pattern is not unusual with Depo-Provera and should resolve on its own. If it does not, she can let us know. Angelina Bartlett APRN.Nette Fishman RN 06/13/2023 9:06 AM Signed Left message to call office. ERICKA Yañez Trisha, RN 06/13/2023 9:20 AM Signed Patient notified. Claudia Woodall RN Allergies As of Date: 06/11/2023 Noted Allergy Reaction NAPROXEN 06/26/2014 14 - Other: See Comments Comments: stomache pain AND diarrhea OTC skin products [Other] 03/07/2010 14 - Other: See Comments Comments: Skin sensitivity to certain OTC skin products Date Reviewed: 06/06/2023 Reviewed by: Nette Brown RN - Fully Assessed Reason for Visit: Patient Question [3427] Prescriptions as of 06/13/2023 - amoxicillin (AMOXIL) 500 mg capsule - MAVYRET 100-40 mg tablet TAKE 3 TABLETS BY MOUTH EVERY DAY WITH FOOD - amLODIPine (NORVASC) 5 mg tablet Take 1 tablet by mouth every afternoon. - NURTEC ODT 75 mg disintegrating tablet - medroxyPROGESTERone (DEPO-PROVERA) 150 mg/mL Inject 1 mL intramuscularly every 12 weeks. - valACYclovir (VALTREX) 500 mg tablet Take 1 tablet by mouth once daily. - phenazopyridine (PYRIDIUM) 100 mg tablet Take 1 tablet by mouth three times daily as needed. - buPROPion SR (WELLBUTRIN SR) 100 mg 12 hr tablet Take 100 mg by mouth once daily. - FLUoxetine HCl 20 mg tablet Take 20 mg by mouth. - methocarbamol (ROBAXIN) 500 mg tablet Take by mouth. - traZODone (DESYREL) 50 mg tablet Take 50 mg by mouth. - ALBUTEROL INHALATION Inhale as instructed. - nabumetone (RELAFEN) 750 mg tablet - SYMBICORT 160-4.5 mcg/actuation inhaler - gabapentin (NEURONTIN) 300 mg capsule - cariprazine (VRAYLAR) 1.5 mg capsule Take 3.5 mg by mouth once daily. - Condoms Latex Lubricated (CONDOMS-NATALIE LUBRICATED) [facility] Chanda Use one condom before and during every act of intercourse Facility-Administered Medications as of 06/13/2023 - medroxyPROGESTERone 150 mg injection (DEPO-PROVERA) - medroxyPROGESTERone 150 mg injection (DEPO-PROVERA) Meds Comments as of 09/28/2009: All medications reviewed today/September 28, 2009 Haydee Lord Rn Problem List As Of Date 06/11/2023 Noted Resolved Excessive or frequent menstruation [N92.0] 05/29/2011 Dysmenorrhea [N94.6] 05/29/2011 Dizziness [R42] 05/29/2011 Encounter Status:Closed by CLAUDIA WOODALL on 06/13/23 [facility] CNNURSEon 06-06-2023 CNNURSE Nurse Visit (OBGYWM) BECERRILSANDIE Yves ([id number]) 1990 F Date Time Provider Department 06/06/23 2:00 PM NURSE FRICTION SAW [facility] WSTR OBGYWM During your visit today, we recorded the following information about you: Blood pressure Weight 128/70 91.2 kg Nette Brown RN 06/06/2023 4:03 PM Signed Patient identified by name and date of . Sandie Yves Becerril is here for a Depo Provera injection. Patient brought medication. Date last injected: 03/15/23 Depo-Provera, 150 mg, administered IM left upper quadrant gluteus, Lot # [id number], expiration date 10/04/2024. Depo-Provera was given without incident. Date of last menses: Patient's last menstrual period was 11/14/2019 (approximate). Irregular bleeding - No Menses ceased - Yes STD prevention discussed: Yes Patient instructed to return to clinic in 12 weeks. [email or web address] Provider Enedelia Dumont CNM was present in office at time of injection. Nette Brown RN Allergies As of Date: 06/06/2023 Noted Allergy Reaction NAPROXEN 06/26/2014 14 - Other: See Comments Comments: stomache pain AND diarrhea OTC skin products [Other] 03/07/2010 14 - Other: See Comments Comments: Skin sensitivity to certain OTC skin products Date Reviewed: 06/06/2023 Reviewed by: Nette Brown RN - Fully Assessed Reason for Visit: Depo Provera Injection [1655] Primary Visit Diagnosis:Encounter for management and injection of depo-Provera [Z30.42] Prescriptions as of 06/06/2023 - amoxicillin (AMOXIL) 500 mg capsule - MAVYRET 100-40 mg tablet TAKE 3 TABLETS BY MOUTH EVERY DAY WITH FOOD - amLODIPine (NORVASC) 5 mg tablet Take 1 tablet by mouth every afternoon. - NURTEC ODT 75 mg disintegrating tablet - medroxyPROGESTERone (DEPO-PROVERA) 150 mg/mL Inject 1 mL intramuscularly every 12 weeks. - valACYclovir (VALTREX) 500 mg tablet Take 1 tablet by mouth once daily. - phenazopyridine (PYRIDIUM) 100 mg tablet Take 1 tablet by mouth three times daily as needed. - buPROPion SR (WELLBUTRIN SR) 100 mg 12 hr tablet Take 100 mg by mouth once daily. - FLUoxetine HCl 20 mg tablet Take 20 mg by mouth. - methocarbamol (ROBAXIN) 500 mg tablet Take by mouth. - traZODone (DESYREL) 50 mg tablet Take 50 mg by mouth. - ALBUTEROL INHALATION Inhale as instructed. - nabumetone (RELAFEN) 750 mg tablet - SYMBICORT 160-4.5 mcg/actuation inhaler - gabapentin (NEURONTIN) 300 mg capsule - cariprazine (VRAYLAR) 1.5 mg capsule Take 3.5 mg by mouth once daily. - Condoms Latex Lubricated (CONDOMS-NATALIE LUBRICATED) [facility] Chanda Use one condom before and during every act of intercourse Facility-Administered Medications as of 06/06/2023 - medroxyPROGESTERone 150 mg injection (DEPO-PROVERA) - medroxyPROGESTERone 150 mg injection (DEPO-PROVERA) Meds Comments as of 09/28/2009: All medications reviewed September 28, 2009 Haydee Lord Rn Problem List As Of Date 06/06/2023 Noted Resolved Excessive or frequent menstruation [N92.0] 05/29/2011 Dysmenorrhea [N94.6] 05/29/2011 Dizziness [R42] 05/29/2011 Disposition: Return in 12 weeks (on 08/29/2023). Follow-up and Disposition History for Encounter Date Provider Department Center 06/06/2023 [id number] FRICTION [facility]W [facility] *OBGYWM Benji Stoner Encounter Status:Closed by NETTE BROWN on 06/06/23 Normal [facility] CNOVon 05-30-2023 CNOV Office Visit (UCWSTR ) SANDIE BECERRIL ([id number]) 1990 F Date Time Provider Department 05/30/23 12:15 PM VERNON CALVIN [facility] During your visit today, we recorded the following information about you: Temperature Pulse Respiration Blood pressure 99 degrees 100/minute 20/minute 124/80 Weight 90.8 kg Vernon Calvin, ROCHELLE.GRAPE CRUSHER 05/30/2023 1:03 PM Signed Subjective HPI Nontoxic-appearing female presents urgent care [...] Pulmonary: Effort: Pulmonary effort is normal. No respirat (more content not included)... Normal [facility] XR KNEE 4V AP/PA BOTH+LAT/ME R LTon 05-30-2023 XR KNEE 4V AP/PA BOTH+LAT/ANUP LT * * *Final Report* * * DATE OF EXAM: May 30 2023 12:35PM WOX [id number] - XR KNEE 4V AP/PA BOTH+LAT/ANUP LT / PROCEDURE REASON: Acute pain of left knee * * * * Physician Interpretation * * * * EXAM TITLE: XR KNEE 4V AP/PA BOTH+LAT/ANUP LT EXAM DATE/TIME: 05/30/2023 12:35 PM COMPARISON: None. CLINICAL INDICATION/HISTORY: Fall. TECHNIQUE: AP/PA, lateral and sunrise views of the left knee are presented. FINDINGS: No acute fractures or subluxations are noted. No obvious osteophyte formation. The joint spaces are well preserved. There is no evidence of joint effusion. The mineralization of the bones is normal. There is no significant soft tissue swelling. IMPRESSION: No acute radiographic abnormalities seen in the left knee. Mail Processing Machine Operator: MONSERRAT Transcribe Date/Time: May 30 2023 12:52P Dictated by : YUKI BEACH MD This examination was interpreted and the report reviewed and electronically signed by: YUKI BEACH MD on May 30 2023 12:55PM EST [id number] Normal [facility] XR Knee - left 4 Viewson IMPRESSION: No acute radiographic abnormalities seen in the left knee. Mail Processing Machine Operator: [facility] Transcribe Date/Time: May 30 2023 12:52P Dictated by : YUKI BEACH MD This examination was interpreted and the report reviewed and electronically signed by: YUKI BEACH MD on May 30 2023 12:55PM EST DIVISION OF RADIOLOGY * * *Final Report* * * DATE OF EXAM: May 30 2023 12:35PM [id number] - XR KNEE 4V AP/PA BOTH+LAT/ANUP LT / PROCEDURE REASON: Acute pain of left knee * * * * Physician Interpretation * * * * EXAM TITLE: XR KNEE 4V AP/PA BOTH+LAT/ANUP LT EXAM DATE/TIME: 05/30/2023 12:35 PM COMPARISON: None. CLINICAL INDICATION/HISTORY: Fall. TECHNIQUE: AP/PA, lateral and sunrise views of the left knee are presented. FINDINGS: No acute fractures or subluxations are noted. No obvious osteophyte formation. The joint spaces are well preserved. There is no evidence of joint effusion. The mineralization of the bones is normal. There is no significant soft tissue swelling. DIVISION OF RADIOLOGY Provider, Radha Kelly Napier - 05/30/2023 * * *Final Report* * * DATE OF EXAM: May 30 2023 12:35PM [id number] - XR KNEE 4V AP/PA BOTH+LAT/ANUP LT / PROCEDURE REASON: Acute pain of left knee * * * * Physician Interpretation * * * * EXAM TITLE: XR KNEE 4V AP/PA BOTH+LAT/ANUP LT EXAM DATE/TIME: 05/30/2023 12:35 PM COMPARISON: None. CLINICAL INDICATION/HISTORY: Fall. TECHNIQUE: AP/PA, lateral and sunrise views of the left knee are presented. FINDINGS: No acute fractures or subluxations are noted. No obvious osteophyte formation. The joint spaces are well preserved. There is no evidence of joint effusion. The mineralization of the bones is normal. There is no significant soft tissue swelling. IMPRESSION IMPRESSION: No acute radiographic abnormalities seen in the left knee. Mail Processing Machine Operator: PSCB Transcribe Date/Time: May 30 2023 12:52P Dictated by : YUKI BEACH MD This examination was interpreted and the report reviewed and electronically signed by: YUKI BEACH MD on May 30 2023 12:55PM EST [facility] Radiology Study observation (narrative) [facility] XR Knee - left 4 ViewsOrdere d By: [facility] Provider on 05-30-2023 [facility] CNNURSEon 03-15-2023 CNNURSE Nurse Visit (OBGYWM) SANDIE BECERRIL ([id number]) 1990 F Date Time Provider Department 03/15/23 4:00 PM NURSE FRICTION SAW [facility]PERATOR [facility] WSTR OBGYWM During your visit today, we recorded the following information about you: Blood pressure Weight 128/78 89.4 kg Claudia Woodall RN 03/15/2023 4:13 PM Signed Patient identified by name and date of . Sandie Becerril is here for a Depo Provera injection. Patient brought medication. Date last injected: overdue-negative test Depo-Provera, 150 mg, administered IM right upper quadrant gluteus, Lot # [id number], expiration date 02/03/2027. Depo-Provera was given without incident. Date of last menses: Patient's last menstrual period was 11/14/2019 (approximate). Irregular bleeding - No Menses ceased - Yes STD prevention discussed: Yes Patient instructed to return to clinic on 12 weeks. [email or web address] Provider Dr. Penny was present in office at time of injection. Claudia Woodall RN Allergies As of Date: 03/15/2023 Noted Allergy Reaction NAPROXEN 06/26/2014 14 - Other: See Comments Comments: stomache pain AND diarrhea OTC skin products [Other] 03/07/2010 14 - Other: See Comments Comments: Skin sensitivity to certain OTC skin products Date Reviewed: 03/15/2023 Reviewed by: Claudia Woodall RN - Fully Assessed Reason for Visit: Depo Provera Injection [1655] Primary Visit Diagnosis:Encounter for management and injection of depo-Provera [Z30.42] Order(s):[facility] B/O [[id number]] Order #: [id number] Prescriptions as of 03/15/2023 - amLODIPine (NORVASC) 5 mg tablet Take 1 tablet by mouth every afternoon. - NURTEC ODT 75 mg disintegrating tablet - medroxyPROGESTERone (DEPO-PROVERA) 150 mg/mL Inject 1 mL intramuscularly every 12 weeks. - valACYclovir (VALTREX) 500 mg tablet Take 1 tablet by mouth once daily. - phenazopyridine (PYRIDIUM) 100 mg tablet Take 1 tablet by mouth three times daily as needed. - buPROPion SR (WELLBUTRIN SR) 100 mg 12 hr tablet Take 100 mg by mouth once daily. - FLUoxetine HCl 20 mg tablet Take 20 mg by mouth. - methocarbamol (ROBAXIN) 500 mg tablet Take by mouth. - traZODone (DESYREL) 50 mg tablet Take 50 mg by mouth. - ALBUTEROL INHALATION Inhale as instructed. - nabumetone (RELAFEN) 750 mg tablet - SYMBICORT 160-4.5 mcg/actuation inhaler - gabapentin (NEURONTIN) 300 mg capsule - cariprazine (VRAYLAR) 1.5 mg capsule Take 3.5 mg by mouth once daily. - Condoms Latex Lubricated (CONDOMS-NATALIE LUBRICATED) Misc Chanda Use one condom before and during every act of intercourse Facility-Administered Medications as of 03/15/2023 - medroxyPROGESTERone 150 mg injection (DEPO-PROVERA) - medroxyPROGESTERone 150 mg injection (DEPO-PROVERA) Meds Comments as of 09/28/2009: All medications reviewed September 28, 2009 Haydee Lord Rn Problem List As Of Date 03/15/2023 Noted Resolved Excessive or frequent menstruation [N92.0] 05/29/2011 Dysmenorrhea [N94.6] 05/29/2011 Dizziness [R42] 05/29/2011 Disposition: Return in 12 weeks (on 06/07/2023). Follow-up and Disposition History for Encounter Date Provider Department Center 03/15/2023 [id number] FRICTION SAW [facility] *OBGYWM Benji Stoner Encounter Status:Closed by CLAUDIA WOODALL RN on 03/15/23 Normal [facility] HCG QUAL UR B/Oon 03-15-2023 status Negative neg - pos [facility] Quality Check Yes [facility] US ELASTOGRAPHY LIVERon 08-0 [facility] HCG QUAL UR B/Oon 09-05-2022 status Negative neg - pos [facility] Quality Check Yes [facility] Absolute lymphocyte countOrd ered By: ED PROVIDER on 08-14-2022 Lymphocytes Auto (Unsp spec) [#/Vol] 1.54 10*3/uL 0.83-4.51 [facility] Basophil percentageOrdered B y: ED PROVIDER on 08-14-2022 Basophils/100 WBC (Bld) 1.1 % 0-1 [facility] Chloride [Moles/Vol] 112 mmol/L 98-107 [facility] Eosinophils/100 WBC (Bld) 1.4 % 0-5 [facility] Glucose [Mass/Vol] 97 mg/dL 74-106 [facility] Neutrophils (Bld) [#/Vol] 4.7 10*3/uL 2.0-7.7 [facility] Neutrophils/100 WBC (Bld) 66.8 % 47-70 [facility] Potassium [Moles/Vol] 3.3 mmol/L 3.5-5.1 [facility] Sodium [Moles/Vol] 140 mmol/L 136-145 [facility] WBC (Bld) [#/Vol] 7.0 10*3/uL 4.4-11.0 [facility] Blood erythrocytes count (nu mber/volume)Ordered By: ED PROVIDER on 08-14-2022 RBC (Bld) [#/Vol] 4.36 10*6/uL 4.2-5.4 [facility] Blood hemoglobin measurement (mass/volume)Ordered By: ED PROVIDER on 08-14-2022 Hemoglobin (Bld) [Mass/Vol] 13.4 g/dL 12.0-15.0 [facility] Blood lymphocytes/100 leukoc ytesOrdered By: ED PROVIDER on 08-14-2022 Lymphocytes/100 WBC (Bld) 22.1 % 19-41 [facility] Blood monocytes/100 leukocyt esOrdered By: ED PROVIDER on 08-14-2022 Monocytes/100 WBC (Bld) 8.3 % 0-10 [facility] Blood platelet mean volumeOr dered By: ED PROVIDER on 08-14-2022 Platelet mean volume (Bld) [Entitic vol] 9.7 fL 6.2-12.0 [facility] Determination of erythrocyte mean corpuscular volume (MCV)Ordered By: ED PROVIDER on 08-14-2022 MCV (RBC) [Entitic vol] 92.4 fL 81-99 [facility] Hematocrit Auto (Bld) [Volum e fraction]Ordered By: ED PROVIDER on 08-14-2022 Hematocrit (Bld) [Volume fraction] 40.3 % 37-47 [facility] INR in Blood by Coagulation assayOrdered By: ED PROVIDER on 08-14-2022 INR Coag (Bld) [Relative time] 0.9 {INR} [facility] Laboratory - Chemistry and C hemistry - challengeOrdered By: ED PROVIDER on 08-14-2022 CO2 [Moles/Vol] 27.0 mmol/L 21.0-32.0 [facility] Urea nitrogen/Creatinine [Mass ratio] 9.7 mg/mg 10-20 [facility] Laboratory - CoagulationOrde red By: ED PROVIDER on 08-14-2022 aPTT Coag (Bld) [Time] 22.6 s 24.1-36.[address] [facility] PT Coag (PPP) [Time] 12.3 s 11.7-14.9 [facility] Laboratory - Hematology and Cell countsOrdered By: ED PROVIDER on 08-14-2022 Erythrocyte distribution width (RBC) [Entitic vol] 43.8 fL 35.1-43.9 [facility] Erythrocyte distribution width (RBC) [Ratio] 13.1 % 11.6-14.6 [facility] Immature granulocytes/100 WBC (Bld) 0.300 % 0.0-0.9 [facility] Comment on above: IG% - Immature Granu locytes (promyelocytes, myelocytes and metamyelocytes) > 1% indicates that a LEFT SHIFT is Present. MCH (RBC) [Entitic mass] 30.7 pg 27.0-32.0 [facility] Nucleated RBC/100 WBC (Bld) [Ratio] 0 % 0-5 [facility] MCHC Auto (RBC) [Mass/Vol]Or dered By: ED PROVIDER on 08-14-2022 MCHC (RBC) [Mass/Vol] 33.3 g/dL 32-36 [facility] No Panel InformationOrdered By: ED PROVIDER on 08-14-2022 Estimated Creatinine Clearance Calc 70.15 ml/min [facility] Estimated GFR (MDRD) Amer 72 mL/min >60 [facility] Comment on above: GFR Calc Estimated GFR (MDRD) Non-Af Amer 59 mL/min >60 [facility] Comment on above: Non- GFR Calc Platelets bldOrdered By: ED PROVIDER on 08-14-2022 Platelets (Bld) [#/Vol] 301 10*3/uL 150-450 [facility] Serum or plasma calcium althea urement (mass/volume)Ordered By: ED PROVIDER on 08-14-2022 Calcium [Mass/Vol] 8.7 mg/dL 8.5-10.1 [facility] Serum or plasma creatinine m easurement (mass/volume)Ordered By: ED PROVIDER on 08-14-2022 Creatinine [Mass/Vol] 1.13 mg/dL 0.55-1.02 [facility] Comment on above: The validity of the calculated GFR & GFRAA in patients over 70 years has not been determined. Clinical correlation is essential. Serum or plasma urea nitroge n measurement (mass/volume)Ordered By: ED PROVIDER on 08-14-2022 Urea nitrogen [Mass/Vol] 11 mg/dL 7-18 [facility] Thin prep Papanicolaou smear with manual screeningOrdered By: ED PROVIDER on 08-14-2022 Thin prep Papanicolaou smear with manual screening 1 5-15 [facility] Laboratory - Drug toxicology Ordered By: Woody Encinas on 07-20-2022 Amphetamines Ql (U) Negative <1000 ng/mL [facility] Benzodiazepines Ql (U) Negative < 200 ng/mL [facility] Cannabinoids Screen Ql (U) Negative < 50 ng/mL [facility] Cocaine Ql (U) Negative < 300 ng/mL [facility] Opiates Ql (U) Negative < 300 ng/mL [facility] No Panel InformationOrdered By: Woody Encinas on 07-20-2022 MDMA (Ecstasy) Screen Positive < 500 ng/mL [facility] Urine Barbiturates Screen Negative < 200 ng/mL [facility] Urine Drug Screen Comment [facility] Comment on above: CONFIRMATORY TESTING FOR ALL POSITIVE URINE DRUG SCREENRESULTS WILL ONLY BE SENT OUT UPON PHYSICIAN ORDER. VISTA Urine Drug Screen methods provide only preliminaryanalytical test results. A more specific alternate chemicalmethod must be used in order to obtain a confirmedanalytical result. Gas chromatography/mass spectrometery(GC/MS) is the preferred confirmatory method. Clinicalconsideration and professional judgement should be appliedto any drug of abuse test result, particularly whenpreliminary positive results are used. URINE TCA TESTING MUST BE ORDERED SEPARATELY. USE TESTMNEMONIC: [facility] Urine Methadone Screen Negative < 300 ng/mL [facility] Urine phencyclidine (PCP) de tectionOrdered By: Woody Encinas on 07-20-2022 Phencyclidine Ql (U) Negative < 25 ng/mL [facility] Absolute lymphocyte countOrd ered By: Dr. Bingham on 06-10-2022 Lymphocytes Auto (Unsp spec) [#/Vol] 0.26 10*3/uL 0.83-4.51 [facility] Basophil percentageOrdered B y: Dr. Bingham on 06-10-2022 Basophils/100 WBC (Bld) 0.5 % 0-1 [facility] Bilirubin [Mass/Vol] 0.60 mg/dL 0.20-1.00 [facility] Comment on above: For patients on eltr ombopag therapy, use of Dimension [place] TBIL is not recommended. Chloride [Moles/Vol] 107 mmol/L 98-107 [facility] Eosinophils/100 WBC (Bld) 0.5 % 0-5 [facility] Glucose [Mass/Vol] 100 mg/dL 74-106 [facility] Comment on above: Fasting Glucose resu lt from 100 to 125 mg/dL suggests IMPAIRED HOMEOSTASIS per A.D.A. criteria. Neutrophils (Bld) [#/Vol] 5.2 10*3/uL 2.0-7.7 [facility] Neutrophils/100 WBC (Bld) 87.3 % 47-70 [facility] Potassium [Moles/Vol] 3.3 mmol/L 3.5-5.1 [facility] Protein [Mass/Vol] 8.0 g/dL 6.4-8.2 [facility] Sodium [Moles/Vol] 139 mmol/L 136-145 [facility] WBC (Bld) [#/Vol] 6.0 10*3/uL 4.4-11.0 [facility] Beta hCG serum qualOrdered B y: Dr. Bingham on 06-10-2022 Beta HCG ( test) Ql Negative [facility] Blood erythrocytes count (nu mber/volume)Ordered By: Dr. Bingham on 06-10-2022 RBC (Bld) [#/Vol] 5.19 10*6/uL 4.2-5.4 [facility] Blood hemoglobin measurement (mass/volume)Ordered By: Dr. Bingham on 06-10-2022 Hemoglobin (Bld) [Mass/Vol] 16.1 g/dL 12.0-15.0 [facility] Blood lymphocytes/100 leukoc ytesOrdered By: Dr. Bingham on 06-10-2022 Lymphocytes/100 WBC (Bld) 4.3 % 19-41 [facility] Blood manual differential co mment interpretation (narrative result)Ordered By: Dr. Bingham on 06-10-2022 Manual differential comment Devin (Bld) [Interp] SEE COMMENT [facility] Comment on above: LYMPHOPENIA NOTED Blood monocytes/100 leukocyt esOrdered By: Dr. Bingham on 06-10-2022 Monocytes/100 WBC (Bld) 7.2 % 0-10 [facility] Blood platelet adequacy dete ction by light microscopyOrdered By: Dr. Bingham on 06-10-2022 Platelets LM Ql (Bld) ADEQUATE ADEQ [facility] Blood platelet mean volumeOr dered By: Dr. Bingham on 06-10-2022 Platelet mean volume (Bld) [Entitic vol] 9.6 fL 6.2-12.0 [facility] Determination of erythrocyte mean corpuscular volume (MCV)Ordered By: Dr. Bingham on 06-10-2022 MCV (RBC) [Entitic vol] 89.8 fL 81-99 [facility] Hematocrit Auto (Bld) [Volum e fraction]Ordered By: Dr. Bingham on 06-10-2022 Hematocrit (Bld) [Volume fraction] 46.6 % 37-47 [facility] Laboratory - Chemistry and C hemistry - challengeOrdered By: Dr. Bingham on 06-10-2022 ALP [Catalytic activity/Vol] 80 U/L 45-117 [facility] ALT [Catalytic activity/Vol] 93 U/L 13-56 [facility] CO2 [Moles/Vol] 24.0 mmol/L 21.0-32.0 [facility] Globulin (S) [Mass/Vol] 3.8 g/dL 2.2-4.2 [facility] Urea nitrogen/Creatinine [Mass ratio] 18.3 mg/mg 10-20 [facility] Laboratory - Hematology and Cell countsOrdered By: Dr. Bingham on 06-10-2022 Anisocytosis Ql (Bld) RARE [facility] Erythrocyte distribution width (RBC) [Entitic vol] 41.6 fL 35.1-43.9 [facility] Erythrocyte distribution width (RBC) [Ratio] 12.5 % 11.6-14.6 [facility] Immature granulocytes/100 WBC (Bld) 0.200 % 0.0-0.9 [facility] Comment on above: IG% - Immature Granu locytes (promyelocytes, myelocytes and metamyelocytes) > 1% indicates that a LEFT SHIFT is Present. MCH (RBC) [Entitic mass] 31.0 pg 27.0-32.0 [facility] Nucleated RBC/100 WBC (Bld) [Ratio] 0 % 0-5 [facility] MCHC Auto (RBC) [Mass/Vol]Or dered By: Dr. Bingham on 06-10-2022 MCHC (RBC) [Mass/Vol] 34.5 g/dL 32-36 [facility] Macrocytes detectionOrdered By: Dr. Bingham on 06-10-2022 Macrocytes Ql (Bld) RARE [facility] No Panel InformationOrdered By: Dr. Bingham on 06-10-2022 Estimated Creatinine Clearance Calc 76.22 ml/min [facility] Estimated GFR (MDRD) Amer 79 mL/min >60 [facility] Comment on above: GFR Calc Estimated GFR (MDRD) Non-Af Amer 65 mL/min >60 [facility] Comment on above: Non- GFR Calc Platelets bldOrdered By: Dr. Bingham on 06-10-2022 Platelets (Bld) [#/Vol] 270 10*3/uL 150-450 [facility] RBC morphologyOrdered By: Dr Crystal Bingham on 06-10-2022 RBC morphology finding Nom (Bld) N CHROM NORMAL NORM C&C [facility] Serum or plasma albumin althea urement (mass/volume)Ordered By: Dr. Bingham on 06-10-2022 Albumin [Mass/Vol] 4.2 g/dL 3.2-5.0 [facility] Serum or plasma albumin/glob ulin mass ratioOrdered By: Dr. Bingham on 06-10-2022 Albumin/Globulin [Mass ratio] 1.1 {ratio} 0.9-2.4 [facility] Serum or plasma calcium althea urement (mass/volume)Ordered By: Dr. Bingham on 06-10-2022 Calcium [Mass/Vol] 9.2 mg/dL 8.5-10.1 [facility] Serum or plasma creatinine m easurement (mass/volume)Ordered By: Dr. Bingham on 06-10-2022 Creatinine [Mass/Vol] 1.04 mg/dL 0.55-1.02 [facility] Comment on above: The validity of the calculated GFR & GFRAA in patients over 70 years has not been determined. Clinical correlation is essential. Serum or plasma urea nitroge n measurement (mass/volume)Ordered By: Dr. Bingham on 06-10-2022 Urea nitrogen [Mass/Vol] 19 mg/dL 7-18 [facility] Thin prep Papanicolaou smear with manual screeningOrdered By: Dr. Bingham on 06-10-2022 Thin prep Papanicolaou smear with manual screening 66 U/L 15-37 [facility] Thin prep Papanicolaou smear with manual screening 8 5-15 [facility] HCG QUAL UR B/Oon 05-24-2022 status Negative neg - [facility] Quality Check Yes [facility] No Panel Informationon 05-09 POC SARS CoV-2 Antigen Negative [facility] Throat Streptococcus pyogene s antigen detection by immunofluorescenceOrdered By: Dr. Molina on 05-08-2022 S. pyogenes Ag IF Ql (Throat) [facility] Laboratory - Microbiology an d Antimicrobial susceptibilityon 04-07-2022 SARS-CoV-2 (COVID-19) RNA [place]+probe Ql (Unsp spec) Not detected [facility] No Panel Informationon 04-07 Influenza Types A,B Rapid (Clinic) Detected [facility] Culture, urineOrdered By: Dr Crystal Shea on 03-23-2022 Bacteria identified Cx Nom (U) Positive [facility] Bacteria identified Cx Nom (U) Yeast Like Organism [facility] Basophil percentageOrdered B y: ED PROVIDER on 03-20-2022 Basophil percentage 5-10 SEEN /hpf 0-5 [facility] Bilirubin Test strip Ql (U)O rdered By: ED PROVIDER on 03-20-2022 Bilirubin Ql (U) 6 mg/dL Negative [facility] Comment on above: COLOR OF URINE MAY A FFECT DIPSTICK RESULTS. Ketones Test strip Ql (U)Ord ered By: ED PROVIDER on 03-20-2022 Ketones Ql (U) 5 mg/dl Negative [facility] Laboratory - Chemistry and C hemistry - challengeOrdered By: ED PROVIDER on 03-20-2022 HCG ( test) Ql (U) Negative [facility] Comment on above: Very dilute urine sp ecimens, as indicated by a low specificgravity, may not contain independent sales representative levels of hCG. If is still suspected, a first morning urinespecimen should be collected 48 hours later and tested. Mucus LM Ql (Urine sed)Order ed By: ED PROVIDER on 03-20-2022 Mucus Ql (Urine sed) 0 SEEN /hpf [facility] Nitrite Test strip Ql (U)Ord ered By: ED PROVIDER on 03-20-2022 Nitrite Ql (U) Positive Negative [facility] Protein Test strip Ql (U)Ord ered By: ED PROVIDER on 03-20-2022 Protein Ql (U) 15 mg/dl Negative [facility] Squamous epithelial cells de tection in urine sediment by light microscopyOrdered By: ED PROVIDER on 03-20-2022 Epithelial cells.squamous LM Ql (Urine sed) 0-5 SEEN /hpf 5-10 [facility] Urine blood detectionOrdered By: ED PROVIDER on 03-20-2022 RBC Ql (U) 10 /ul Negative [facility] RBC Ql (U) 0-5 SEEN /hpf 0-5 [facility] Urine clarityOrdered By: ED PROVIDER on 03-20-2022 Clarity (U) Sl. Cloudy Clear [facility] Urine color determinationOrd ered By: ED PROVIDER on 03-20-2022 Color (U) Angela Yellow [facility] Urine glucose detectionOrder ed By: ED PROVIDER on 03-20-2022 Glucose Ql (U) Normal mg/dl Normal [facility] Urine leukocyte esterase det ection by dipstickOrdered By: ED PROVIDER on 03-20-2022 Leukocyte esterase Test strip Ql (U) 500 /ul Negative [facility] Urine pHOrdered By: ED PROVI KRIS on 03-20-2022 pH (U) 6.5 [pH] 5.0 - 8.0 [facility] Urine sediment bacteria coun t by microscopy (number/high power field)Ordered By: ED PROVIDER on 03-20-2022 Bacteria LM.HPF (Urine sed) [#/Area] 1 /[HPF] None Seen [facility] Urine specific gravity measu rementOrdered By: ED PROVIDER on 03-20-2022 Specific gravity (U) [Rel density] 1.020 1.002-1.030 [facility] Urobilinogen Auto test strip Ql (U)Ordered By: ED PROVIDER on 03-20-2022 Urobilinogen Ql (U) 8 mg/dl Normal [facility] Absolute lymphocyte countOrd ered By: Molly Reyes on 03-17-2022 Lymphocytes Auto (Unsp spec) [#/Vol] 1.38 10*3/uL 0.83-4.51 [facility] Basophil percentageOrdered B y: Molly Reyes on 03-17-2022 Basophil percentage 0-5 SEEN /hpf 0-[address] [facility] Basophils/100 WBC (Bld) 1.2 % 0-1 [facility] Bilirubin [Mass/Vol] 0.70 mg/dL 0.20-1.00 [facility] Comment on above: For patients on eltr ombopag therapy, use of Dimension [place] TBIL is not recommended. Chloride [Moles/Vol] 105 mmol/L 98-107 [facility] Eosinophils/100 WBC (Bld) 2.3 % 0-5 [facility] Glucose [Mass/Vol] 91 mg/dL 74-106 [facility] Neutrophils (Bld) [#/Vol] 3.6 10*3/uL 2.0-7.7 [facility] Neutrophils/100 WBC (Bld) 63.3 % 47-70 [facility] Potassium [Moles/Vol] 5.0 mmol/L 3.5-5.1 [facility] Comment on above: Moderate Hemolysis, Result may be falsely increased. Protein [Mass/Vol] 7.5 g/dL 6.4-8.2 [facility] Sodium [Moles/Vol] 137 mmol/L 136-145 [facility] WBC (Bld) [#/Vol] 5.7 10*3/uL 4.4-11.0 [facility] Beta hCG serum qualOrdered B y: Molly Reyes on 03-17-2022 Beta HCG ( test) Ql Negative [facility] Bilirubin Test strip Ql (U)O rdered By: Molly Reyes on 03-17-2022 Bilirubin Ql (U) Negative Negative [facility] Blood erythrocytes count (nu mber/volume)Ordered By: Molly Reyes on 03-17-2022 RBC (Bld) [#/Vol] 4.74 10*6/uL 4.2-5.4 [facility] Blood hemoglobin measurement (mass/volume)Ordered By: Molly Reyes on 03-17-2022 Hemoglobin (Bld) [Mass/Vol] 14.6 g/dL 12.0-15.0 [facility] Blood lymphocytes/100 leukoc ytesOrdered By: Molly Reyes on 03-17-2022 Lymphocytes/100 WBC (Bld) 24.1 % 19-41 [facility] Blood monocytes/100 leukocyt esOrdered By: Molly Reyes on 03-17-2022 Monocytes/100 WBC (Bld) 9.1 % 0-10 [facility] Blood platelet mean volumeOr dered By: Molly Reyes on 03-17-2022 Platelet mean volume (Bld) [Entitic vol] 9.5 fL 6.2-12.0 [facility] Determination of erythrocyte mean corpuscular volume (MCV)Ordered By: Molly Reyes on 03-17-2022 MCV (RBC) [Entitic vol] 93.0 fL 81-99 [facility] Hematocrit Auto (Bld) [Volum e fraction]Ordered By: Molly Reyes on 03-17-2022 Hematocrit (Bld) [Volume fraction] 44.1 % 37-47 [facility] Ketones Test strip Ql (U)Ord ered By: Molly Reyes on 03-17-2022 Ketones Ql (U) Negative Negative [facility] Laboratory - Chemistry and C hemistry - challengeOrdered By: Molly Reyes on 03-17-2022 ALP [Catalytic activity/Vol] 63 U/L 45-117 [facility] ALT [Catalytic activity/Vol] 53 U/L 13-56 [facility] CO2 [Moles/Vol] 26.0 mmol/L 21.0-32.0 [facility] Globulin (S) [Mass/Vol] 3.7 g/dL 2.2-4.2 [facility] Lipase [Catalytic activity/Vol] 86 U/L 73-393 [facility] Urea nitrogen/Creatinine [Mass ratio] 10.3 mg/mg 10-20 [facility] Laboratory - Hematology and Cell countsOrdered By: Molly Reyes on 03-17-2022 Erythrocyte distribution width (RBC) [Entitic vol] 41.1 fL 35.1-43.9 [facility] Erythrocyte distribution width (RBC) [Ratio] 11.9 % 11.6-14.6 [facility] Immature granulocytes/100 WBC (Bld) 0.000 % 0.0-0.9 [facility] Comment on above: IG% - Immature Granu locytes (promyelocytes, myelocytes and metamyelocytes) > 1% indicates that a LEFT SHIFT is Present. MCH (RBC) [Entitic mass] 30.8 pg 27.0-32.0 [facility] Nucleated RBC/100 WBC (Bld) [Ratio] 0 % 0-5 [facility] MCHC Auto (RBC) [Mass/Vol]Or dered By: Molly Reyes on 03-17-2022 MCHC (RBC) [Mass/Vol] 33.1 g/dL 32-36 [facility] Mucus LM Ql (Urine sed)Order ed By: Molly Reyes on 03-17-2022 Mucus Ql (Urine sed) 0 SEEN /hpf [facility] Nitrite Test strip Ql (U)Ord ered By: Molly Reyes on 03-17-2022 Nitrite Ql (U) Positive Negative [facility] No Panel InformationOrdered By: Molly Reyes on 03-17-2022 Estimated Creatinine Clearance Calc 74.08 ml/min [facility] Estimated GFR (MDRD) Amer 77 mL/min >60 [facility] Comment on above: GFR Calc Estimated GFR (MDRD) Non-Af Amer 63 mL/min >60 [facility] Comment on above: Non- GFR Calc Platelets bldOrdered By: Joshua Reyes on 03-17-2022 Platelets (Bld) [#/Vol] 321 10*3/uL 150-450 [facility] Protein Test strip Ql (U)Ord ered By: Molly Reyes on 03-17-2022 Protein Ql (U) 30 mg/dl Negative [facility] Serum or plasma albumin althea urement (mass/volume)Ordered By: Molly Reyes on 03-17-2022 Albumin [Mass/Vol] 3.8 g/dL 3.2-5.0 [facility] Serum or plasma albumin/glob ulin mass ratioOrdered By: Molly Reyes on 03-17-2022 Albumin/Globulin [Mass ratio] 1.0 {ratio} 0.9-2.4 [facility] Serum or plasma calcium althea urement (mass/volume)Ordered By: Molly Reyes on 03-17-2022 Calcium [Mass/Vol] 8.9 mg/dL 8.5-10.1 [facility] Serum or plasma creatinine m easurement (mass/volume)Ordered By: Molly Reyes on 03-17-2022 Creatinine [Mass/Vol] 1.07 mg/dL 0.55-1.02 [facility] Comment on above: The validity of the calculated GFR & GFRAA in patients over 70 years has not been determined. Clinical correlation is essential. Serum or plasma urea nitroge n measurement (mass/volume)Ordered By: Molly Reyes on 03-17-2022 Urea nitrogen [Mass/Vol] 11 mg/dL 7-18 [facility] Squamous epithelial cells de tection in urine sediment by light microscopyOrdered By: Molly Reyes on 03-17-2022 Epithelial cells.squamous LM Ql (Urine sed) 0-5 SEEN /hpf 5-10 [facility] Thin prep Papanicolaou smear with manual screeningOrdered By: Molly Reyes on 03-17-2022 Thin prep Papanicolaou smear with manual screening 48 U/L 15-37 [facility] Comment on above: Moderate Hemolysis, Result may be falsely increased. Thin prep Papanicolaou smear with manual screening 6 5-15 [facility] Urine blood detectionOrdered By: Molly Reyes on 03-17-2022 RBC Ql (U) Negative Negative [facility] RBC Ql (U) 0-5 SEEN /hpf 0-5 [facility] Urine clarityOrdered By: Joshua Reyes on 03-17-2022 Clarity (U) Clear Clear [facility] Urine color determinationOrd ered By: Molly Reyes on 03-17-2022 Color (U) Yellow Yellow [facility] Urine glucose detectionOrder ed By: Molly Reyes on 03-17-2022 Glucose Ql (U) Normal mg/dl Normal [facility] Urine leukocyte esterase det ection by dipstickOrdered By: Molly Reyes on 03-17-2022 Leukocyte esterase Test strip Ql (U) 500 /ul Negative [facility] Urine pHOrdered By: Darwin Reyes on 03-17-2022 pH (U) 8.0 [pH] 5.0 - 8.0 [facility] Urine sediment bacteria coun t by microscopy (number/high power field)Ordered By: Molly Reyes on 03-17-2022 Bacteria LM.HPF (Urine sed) [#/Area] 0 /[HPF] None Seen [facility] Urine specific gravity measu rementOrdered By: Molly Reyes on 03-17-2022 Specific gravity (U) [Rel density] 1.015 1.002-1.030 [facility] Urobilinogen Auto test strip Ql (U)Ordered By: Molly Reyes on 03-17-2022 Urobilinogen Ql (U) 4 mg/dl Normal [facility] Laboratory - Microbiology an d Antimicrobial susceptibilityon 02-16-2022 SARS-CoV-2 (COVID-19) RNA [place]+probe Ql (Unsp spec) Not detected [facility] No Panel Informationon 02-16 Influenza Types A,B Rapid (Clinic) Not detected [facility] Laboratory - Microbiology an d Antimicrobial susceptibilityon 09-14-2021 SARS-CoV-2 (COVID-19) RNA [place]+probe Ql (Unsp spec) Not detected [facility] Work Phone: No Panel Informationon 09-14 Influenza Types A,B Rapid (Clinic) Not detected [facility] Work Phone: Laboratory - Microbiology an d Antimicrobial susceptibilityon 09-09-2021 SARS-CoV-2 (COVID-19) RNA [place]+probe Ql (Unsp spec) Not detected [facility] Work Phone: No Panel Informationon 09-09 Influenza Types A,B Rapid (Clinic) Not detected [facility] Work Phone: Culture, urine Bacteria identified Cx Nom (U) Positive [facility] Work Phone: Bacteria identified Cx Nom (U) Yeast Like Organism [facility] Work Phone: Vital Signs Date Time Vital Sign Value Performing Clinician Facility 08-31-2024 16:19-0400 Diastolic Blood Pressure Non-Invasive 86 mm[Hg] JACOB GOFF DO [facility] 08-31-2024 16:19-0400 Heart rate 102 /min JACOB GOFF DO [facility] 08-31-2024 16:19-0400 Respiratory rate 18 /min JACOB GOFF DO [facility] 08-31-2024 16:19-0400 Systolic Blood Pressure Non-Invasive 138 mm[Hg] JACOB GOFF DO [facility] 08-31-2024 15:24-0400 Body temperature 98.6 [degF] JACOB GOFF DO [facility] 08-31-2024 15:24-0400 Diastolic Blood Pressure Non-Invasive 84 mm[Hg] JACOB GOFF DO [facility] 08-31-2024 15:24-0400 Heart rate 118 /min JACOB GOFF DO [facility] 08-31-2024 15:24-0400 Respiratory rate 18 /min JACOB GOFF DO [facility] 08-31-2024 15:24-0400 Systolic Blood Pressure Non-Invasive 143 mm[Hg] JACOB GOFF DO [facility] 08-26-2024 20:07-0400 Body height 167 cm CHI RAMIREZ DO [facility] 08-26-2024 20:07-0400 Body temperature 97.52 [degF] CHI RAMIREZ DO [facility] 08-26-2024 20:07-0400 Body weight 90.9 kg CHI RAMIREZ DO [facility] 08-26-2024 20:07-0400 Diastolic Blood Pressure Non-Invasive 74 mm[Hg] CHI RAMIREZ DO [facility] 08-26-2024 20:07-0400 Heart rate 100 /min CHI RAMIREZ DO [facility] 08-26-2024 20:07-0400 Respiratory rate 18 /min CHI RAMIREZ DO [facility] 08-26-2024 20:07-0400 Systolic Blood Pressure Non-Invasive 116 mm[Hg] CHI RAMIREZ DO [facility] 11-22-2023 13:26-0400 Body height 167.6 cm Pratima Kat MD Work Phone: [facility] 11-22-2023 13:26-0400 Body mass index (BMI) [Ratio] 31.31 kg/m2 Pratima Kat MD Work Phone: [facility] 11-22-2023 13:26-0400 Body weight 88 kg Pratima Kat MD Work Phone: [facility] 11-22-2023 13:26-0400 Diastolic blood pressure 70 mm[Hg] Pratima Kat MD Work Phone: [facility] 11-22-2023 13:26-0400 Systolic blood pressure 110 mm[Hg] Pratima Kat MD Work Phone: [facility] 11-19-2023 17:20-0400 Diastolic Blood Pressure Non-Invasive 65 mm[Hg] SAM MACIAS MD [facility] 11-19-2023 17:20-0400 Heart rate 85 /min SAM MACIAS MD [facility] 11-19-2023 17:20-0400 Respiratory rate 16 /min SAM MACIAS MD [facility] 11-19-2023 17:20-0400 Systolic Blood Pressure Non-Invasive 116 mm[Hg] SAM MACIAS MD [facility] 11-19-2023 15:37-0400 Body temperature 100.22 [degF] SAM MACIAS MD [facility] 11-19-2023 15:37-0400 Body weight 89.4 kg SAM MACIAS MD [facility] 11-19-2023 15:37-0400 Diastolic Blood Pressure Non-Invasive 80 mm[Hg] SAM MACIAS MD [facility] 11-19-2023 15:37-0400 Heart rate 118 /min SAM MACIAS MD [facility] 11-19-2023 15:37-0400 Respiratory rate 16 /min SAM MACIAS MD [facility] 11-19-2023 15:37-0400 Systolic Blood Pressure Non-Invasive 137 mm[Hg] SAM MACIAS MD [facility] 09-24-2023 18:43-0400 Blood Pressure Location SHEYLA ROSAS DO [facility] 09-24-2023 18:43-0400 Blood Pressure Method SHEYLA ROSAS DO [facility] 09-24-2023 18:43-0400 Body temperature 98.06 [degF] SHEYLA ROSAS DO [facility] 09-24-2023 18:43-0400 Diastolic Blood Pressure Non-Invasive 80 mm[Hg] SHEYLA ROSAS DO [facility] 09-24-2023 18:43-0400 Heart rate 123 /min SHEYLA ROSAS DO [facility] 09-24-2023 18:43-0400 Respiratory rate 18 /min SHEYLA ROSAS DO [facility] 09-24-2023 18:43-0400 Systolic Blood Pressure Non-Invasive 125 mm[Hg] SHEYLA ROSAS DO [facility] 08-29-2023 15:33-0400 Body mass index (BMI) [Ratio] 32.77 kg/m2 Nurse Wstr Work Phone: [facility] 08-29-2023 15:33-0400 Body weight 92.08 kg Nurse Wstr Work Phone: [facility] 08-29-2023 15:33-0400 Diastolic blood pressure 76 mm[Hg] Nurse Wstr Work Phone: [facility] 08-29-2023 15:33-0400 Systolic blood pressure 114 mm[Hg] Nurse Wstr Work Phone: [facility] 07-13-2023 08:06-0500 Heart rate 95 /min Anna Marie Prebish [employer] Work Phone: [facility] 07-13-2023 08:06-0500 Respiratory rate 14 /min Anna Marie Prebish [employer] Work Phone: [facility] 07-13-2023 08:06-0500 SaO2% (BldA) [Mass fraction] 99 % Anna Marie Prebish [employer] Work Phone: [facility] 06-29-2023 09:06-0500 Heart rate 86 /min Anna Marie Prebish [employer]PER[employer] Work Phone: [facility] 06-29-2023 09:06-0500 Respiratory rate 14 /min Anna Marie Prebish [employer]PER[employer] Work Phone: [facility] 06-29-2023 09:06-0500 SaO2% (BldA) [Mass fraction] 96 % Anna Marie Prebish [employer]PER[employer] Work Phone: [facility] 06-18-2023 10:22-0500 Body height 167.6 cm Lis Freedman MD Work Phone: [facility] 06-18-2023 10:22-0500 Body temperature 98.4 [degF] Lis Freedman MD Work Phone: [facility] 06-18-2023 10:22-0500 Body weight 91.17 kg Lis Freedman MD Work Phone: [facility] 06-18-2023 10:22-0500 Diastolic blood pressure 67 mm[Hg] Lis Freedman MD Work Phone: [facility] 06-18-2023 10:22-0500 Heart rate 92 /min Lis Freedman MD Work Phone: [facility] 06-18-2023 10:22-0500 Respiratory rate 14 /min Lis Freedman MD Work Phone: [facility] 06-18-2023 10:22-0500 Systolic blood pressure 128 mm[Hg] Lis Freedman MD Work Phone: [facility] 03-15-2023 15:54-0500 Body weight 89.36 kg Nurse Wstr Work Phone: [facility] 03-15-2023 15:54-0500 Diastolic blood pressure 78 mm[Hg] Nurse Wstr Work Phone: [facility] 03-15-2023 15:54-0500 Systolic blood pressure 128 mm[Hg] Nurse Wstr Work Phone: [facility] 09-18-2022 18:29-0400 Body height 170 cm SAM MACIAS MD [facility] 09-18-2022 18:29-0400 Body temperature 98.78 [degF] SAM MACIAS MD [facility] 09-18-2022 18:29-0400 Body weight 82 kg SAM MACIAS MD [facility] 09-18-2022 18:29-0400 Diastolic Blood Pressure Non-Invasive 89 1 SAM MACIAS MD [facility] 09-18-2022 18:29-0400 Heart rate 76 /min SAM MACIAS MD [facility] 09-18-2022 18:29-0400 Respiratory rate 20 /min SAM MACIAS MD [facility] 09-18-2022 18:29-0400 Systolic Blood Pressure Non-Invasive 141 1 SAM MACIAS MD [facility] 09-05-2022 14:11-0400 Body weight 83.1 kg Yaquelin Littleton [employer] Work Phone: [facility] 09-05-2022 14:11-0400 Diastolic blood pressure 80 mm[Hg] Yaquelin Ty [employer]PER[employer] Work Phone: [facility] 09-05-2022 14:11-0400 Systolic blood pressure 130 mm[Hg] Yaquelin Littleton [employer] Work Phone: [facility] 08-14-2022 17:58-0400 Body height 170.[address] Rosa Kemp Work Phone: [facility] 08-14-2022 17:58-0400 Body mass index (BMI) [Ratio] 28.5 kg/m2 Dr. Rosa Kemp Work Phone: [facility] 08-14-2022 17:58-0400 Body temperature 98.4 [degF] Dr. Rosa Kemp Work Phone: [facility] 08-14-2022 17:58-0400 Body weight 82.[address] Rosa Kemp Work Phone: [facility] 08-14-2022 17:58-0400 Diastolic blood pressure 93 mm[Hg] Dr. Rosa Kemp Work Phone: [facility] 08-14-2022 17:58-0400 Heart rate 82 /min Dr. Rosa Kemp Work Phone: [facility] 08-14-2022 17:58-0400 Respiratory rate 16 /min Dr. Rosa Kemp Work Phone: [facility] 08-14-2022 17:58-0400 SaO2% (BldA) [Mass fraction] 99 % Dr. Rosa Kemp Work Phone: [facility] 08-14-2022 17:58-0400 Systolic blood pressure 140 mm[Hg] Dr. Rosa Kemp Work Phone: [facility] 07-26-2022 12:09-0400 Body temperature 98.4 [degF] Dr. Rosa Kemp Work Phone: [facility] 07-26-2022 12:09-0400 Diastolic blood pressure 92 mm[Hg] Dr. Rosa Kemp Work Phone: [facility] 07-26-2022 12:09-0400 Heart rate 89 /min Dr. Rosa Kemp Work Phone: [facility] 07-26-2022 12:09-0400 Respiratory rate 18 /min Dr. Rosa Kemp Work Phone: [facility] 07-26-2022 12:09-0400 SaO2% (BldA) [Mass fraction] 97 % Dr. Rosa Kemp Work Phone: [facility] 07-26-2022 12:09-0400 Systolic blood pressure 146 mm[Hg] Dr. Rosa Kemp Work Phone: [facility] 07-25-2022 20:55-0400 Diastolic Blood Pressure Non-Invasive 84 1 DILCIA REICHFIELD DO [facility] 07-25-2022 20:55-0400 Heart rate 77 /min DILCIA REICHFIELD DO [facility] 07-25-2022 20:55-0400 Reason For Taking VItal Signs DILCIA REICHFIELD DO [facility] 07-25-2022 20:55-0400 Respiratory rate 16 /min DILCIA REICHFIELD DO [facility] 07-25-2022 20:55-0400 Systolic Blood Pressure Non-Invasive 143 1 DILCIA REICHFIELD DO [facility] 07-25-2022 18:39-0400 Body temperature 98.78 [degF] DILCIA REICHFIELD DO [facility] 07-25-2022 18:39-0400 Diastolic Blood Pressure Non-Invasive 88 1 DILCIA REICHFIELD DO [facility] 07-25-2022 18:39-0400 Heart rate 88 /min DILCIA REICHFIELD DO [facility] 07-25-2022 18:39-0400 Respiratory rate 16 /min DILCIA REICHFIELD DO [facility] 07-25-2022 18:39-0400 Systolic Blood Pressure Non-Invasive 150 1 DILCIA MAURER DO [facility] 07-21-2022 09:15-0400 Body height 170.[address] Rosa Kemp Work Phone: [facility] 07-21-2022 09:15-0400 Body mass index (BMI) [Ratio] 28.4 kg/m2 Dr. Rosa Kemp Work Phone: [facility] 07-21-2022 09:15-0400 Body temperature 98 [degF] Dr. Rosa Kemp Work Phone: [facility] 07-21-2022 09:15-0400 Body weight 82.[address] Rosa Kemp Work Phone: [facility] 07-21-2022 09:15-0400 Diastolic blood pressure 100 mm[Hg] Dr. Rosa Kemp Work Phone: [facility] 07-21-2022 09:15-0400 Heart rate 74 /min Dr. Rosa Kemp Work Phone: [facility] 07-21-2022 09:15-0400 Respiratory rate 14 /min Dr. Rosa Kemp Work Phone: [facility] 07-21-2022 09:15-0400 SaO2% (BldA) [Mass fraction] 98 % Dr. Rosa Kemp Work Phone: [facility] 07-21-2022 09:15-0400 Systolic blood pressure 123 mm[Hg] Dr. Rosa Kemp Work Phone: [facility] 07-18-2022 16:54-0400 Body mass index (BMI) [Ratio] 27.6 kg/m2 Dr. Rosa Kemp Work Phone: [facility] 07-18-2022 16:54-0400 Body temperature 98.9 [degF] Dr. Rosa Kemp Work Phone: [facility] 07-18-2022 16:54-0400 Body weight 79.[address] Rosa Kemp Work Phone: [facility] 07-18-2022 16:54-0400 Diastolic blood pressure 80 mm[Hg] Dr. Rosa Kemp Work Phone: [facility] 07-18-2022 16:54-0400 Heart rate 71 /min Dr. Rosa Kemp Work Phone: [facility] 07-18-2022 16:54-0400 Respiratory rate 14 /min Dr. Rosa Kemp Work Phone: [facility] 07-18-2022 16:54-0400 SaO2% (BldA) [Mass fraction] 98 % Dr. Rosa Kemp Work Phone: [facility] 07-18-2022 16:54-0400 Systolic blood pressure 124 mm[Hg] Dr. Rosa Kemp Work Phone: [facility] 06-10-2022 22:19-0500 Respiratory rate 14 /min Dr. Rosa Kemp Work Phone: [facility] 06-10-2022 18:32-0500 Body height 170.[address] Rosa Kemp Work Phone: [facility] 06-10-2022 18:32-0500 Body mass index (BMI) [Ratio] 27.1 kg/m2 Dr. Rosa Kemp Work Phone: [facility] 06-10-2022 18:32-0500 Body temperature 97 [degF] Dr. Rosa Kemp Work Phone: [facility] 06-10-2022 18:32-0500 Body weight 78.[address] Rosa Kemp Work Phone: [facility] 06-10-2022 18:32-0500 Diastolic blood pressure 90 mm[Hg] Dr. Rosa Kemp Work Phone: [facility] 06-10-2022 18:32-0500 Heart rate 106 /min Dr. Rosa Kemp Work Phone: [facility] 06-10-2022 18:32-0500 SaO2% (BldA) [Mass fraction] 97 % Dr. Rosa Kemp Work Phone: [facility] 06-10-2022 18:32-0500 Systolic blood pressure 129 mm[Hg] Dr. Rosa Kemp Work Phone: [facility] 06-10-2022 02:48-0500 Blood Pressure Location SAM MACIAS MD [facility] 06-10-2022 02:48-0500 Body temperature 97.7 [degF] SAM MACIAS MD [facility] 06-10-2022 02:48-0500 Diastolic Blood Pressure Non-Invasive 67 1 SAM MACIAS MD [facility] 06-10-2022 02:48-0500 Heart rate 90 /min SAM MACIAS MD [facility] 06-10-2022 02:48-0500 Reason For Taking VItal Signs SAM MACIAS MD [facility] 06-10-2022 02:48-0500 Respiratory rate 20 /min SAM MACIAS MD [facility] 06-10-2022 02:48-0500 Systolic Blood Pressure Non-Invasive 114 1 SAM MACIAS MD [facility] 05-24-2022 11:03-0500 Body weight 79.92 kg Nurse Wstr Work Phone: [facility] 05-24-2022 11:03-0500 Diastolic blood pressure 80 mm[Hg] Nurse Wstr Work Phone: [facility] 05-24-2022 11:03-0500 Systolic blood pressure 118 mm[Hg] Nurse Wstr Work Phone: [facility] 05-18-2022 10:28-0500 Body mass index (BMI) [Ratio] 27.6 kg/m2 Dr. Rosa Kemp Work Phone: [facility] 05-18-2022 10:28-0500 Body temperature 97.8 [degF] Dr. Rosa Kemp Work Phone: [facility] 05-18-2022 10:28-0500 Body weight 79.[address] Rosa Kemp Work Phone: [facility] 05-18-2022 10:28-0500 Diastolic blood pressure 82 mm[Hg] Dr. Rosa Kemp Work Phone: [facility] 05-18-2022 10:28-0500 Heart rate 76 /min Dr. Rosa Kemp Work Phone: [facility] 05-18-2022 10:28-0500 Respiratory rate 14 /min Dr. Rosa Kemp Work Phone: [facility] 05-18-2022 10:28-0500 SaO2% (BldA) [Mass fraction] 98 % Dr. Rosa Kemp Work Phone: [facility] 05-18-2022 10:28-0500 Systolic blood pressure 120 mm[Hg] Dr. Rosa Kemp Work Phone: [facility] 05-09-2022 14:00-0500 Body temperature 98.2 [degF] Dr. Rosa Kemp Work Phone: [facility] 05-09-2022 14:00-0500 Diastolic blood pressure 82 mm[Hg] Dr. Rosa Kemp Work Phone: [facility] 05-09-2022 14:00-0500 Heart rate 90 /min Dr. Rosa Kemp Work Phone: [facility] 05-09-2022 14:00-0500 Respiratory rate 20 /min Dr. Rosa Kemp Work Phone: [facility] 05-09-2022 14:00-0500 SaO2% (BldA) [Mass fraction] 98 % Dr. Rosa Kemp Work Phone: [facility] 05-09-2022 14:00-0500 Systolic blood pressure 120 mm[Hg] Dr. Rosa Kemp Work Phone: [facility] 05-06-2022 14:16-0500 Body height 170.[address] Rosa Kemp Work Phone: [facility] Work Phone: 05-06-2022 14:16-0500 Body mass index (BMI) [Ratio] 26.5 kg/m2 Dr. Rosa Kemp Work Phone: [facility] 05-06-2022 14:16-0500 Body temperature 97.1 [degF] Dr. Rosa Kemp Work Phone: [facility] 05-06-2022 14:16-0500 Body weight 76.[address] Rosa eKmp Work Phone: [facility] 05-06-2022 14:16-0500 Diastolic blood pressure 75 mm[Hg] Dr. Rosa Kemp Work Phone: [facility] 05-06-2022 14:16-0500 Heart rate 90 /min Dr. Rosa Kemp Work Phone: [facility] 05-06-2022 14:16-0500 Respiratory rate 14 /min Dr. Rosa Kemp Work Phone: [facility] 05-06-2022 14:16-0500 SaO2% (BldA) [Mass fraction] 96 % Dr. Rosa Kemp Work Phone: [facility] 05-06-2022 14:16-0500 Systolic blood pressure 126 mm[Hg] Dr. Rosa Kemp Work Phone: [facility] 04-21-2022 11:11-0500 Body height 170.[address] Rosa Kemp Work Phone: [facility] Work Phone: 04-21-2022 11:11-0500 Body mass index (BMI) [Ratio] 25.8 kg/m2 Dr. Rosa Kemp Work Phone: [facility] 04-21-2022 11:11-0500 Body temperature 97.8 [degF] Dr. Rosa Kemp Work Phone: [facility] 04-21-2022 11:11-0500 Body weight 74.[address] Rosa Kemp Work Phone: [facility] 04-21-2022 11:11-0500 Diastolic blood pressure 62 mm[Hg] Dr. Rosa Kemp Work Phone: [facility] 04-21-2022 11:11-0500 Heart rate 90 /min Dr. Rosa Kemp Work Phone: [facility] 04-21-2022 11:11-0500 Respiratory rate 16 /min Dr. Rosa Kemp Work Phone: [facility] 04-21-2022 11:11-0500 SaO2% (BldA) [Mass fraction] 97 % Dr. Rosa Kemp Work Phone: [facility] 04-21-2022 11:11-0500 Systolic blood pressure 120 mm[Hg] Dr. Rosa Kemp Work Phone: [facility] 04-07-2022 08:27-0500 Body temperature 98.6 [degF] Dr. Rosa Kemp Work Phone: [facility] 04-07-2022 08:27-0500 Diastolic blood pressure 82 mm[Hg] Dr. Rosa Kemp Work Phone: [facility] 04-07-2022 08:27-0500 Heart rate 106 /min Dr. Rosa Kemp Work Phone: [facility] 04-07-2022 08:27-0500 Respiratory rate 16 /min Dr. Rosa Kemp Work Phone: [facility] 04-07-2022 08:27-0500 SaO2% (BldA) [Mass fraction] 97 % Dr. Rosa Kemp Work Phone: [facility] 04-07-2022 08:27-0500 Systolic blood pressure 120 mm[Hg] Dr. Rosa Kemp Work Phone: [facility] 03-21-2022 10:05-0500 Body temperature 98.3 [degF] Dr. Rosa Kemp Work Phone: [facility] 03-21-2022 10:05-0500 Body weight 75.[address] Rosa Kemp Work Phone: [facility] 03-21-2022 10:05-0500 Diastolic blood pressure 84 mm[Hg] Dr. Rosa Kemp Work Phone: [facility] 03-21-2022 10:05-0500 Heart rate 107 /min Dr. Rosa Kemp Work Phone: [facility] 03-21-2022 10:05-0500 Respiratory rate 18 /min Dr. Rosa Kemp Work Phone: [facility] 03-21-2022 10:05-0500 SaO2% (BldA) [Mass fraction] 97 % Dr. Rosa Kemp Work Phone: [facility] 03-21-2022 10:05-0500 Systolic blood pressure 130 mm[Hg] Dr. Rosa Kemp Work Phone: [facility] 03-20-2022 17:13-0500 Body height 170.[address] Rosa Kemp Work Phone: [facility] Work Phone: 03-20-2022 17:13-0500 Body mass index (BMI) [Ratio] 26.9 kg/m2 Dr. Rosa Kemp Work Phone: [facility] 03-20-2022 17:13-0500 Body temperature 98.4 [degF] Dr. Rosa Kemp Work Phone: [facility] 03-20-2022 17:13-0500 Body weight [address] Rosa Kemp Work Phone: [facility] 03-20-2022 17:13-0500 Diastolic blood pressure 65 mm[Hg] Dr. Rosa Kemp Work Phone: [facility] 03-20-2022 17:13-0500 Heart rate 81 /min Dr. Rosa Kemp Work Phone: [facility] 03-20-2022 17:13-0500 Respiratory rate 16 /min Dr. Rosa Kemp Work Phone: [facility] 03-20-2022 17:13-0500 SaO2% (BldA) [Mass fraction] 96 % Dr. Rosa Kemp Work Phone: [facility] 03-20-2022 17:13-0500 Systolic blood pressure 113 mm[Hg] Dr. Rosa Kemp Work Phone: [facility] 03-17-2022 20:57-0500 Heart rate 84 /min Dr. Rosa Kemp Work Phone: [facility] 03-17-2022 20:57-0500 Respiratory rate 16 /min Dr. Rosa Kemp Work Phone: [facility] 03-17-2022 20:57-0500 SaO2% (BldA) [Mass fraction] 97 % Dr. Rosa Kemp Work Phone: [facility] 03-17-2022 16:59-0500 Body height 170.[address] Rosa Kemp Work Phone: [facility] Work Phone: 03-17-2022 16:59-0500 Body mass index (BMI) [Ratio] 25.9 kg/m2 Dr. Rosa Kemp Work Phone: [facility] 03-17-2022 16:59-0500 Body temperature 99.3 [degF] Dr. Rosa Kemp Work Phone: [facility] 03-17-2022 16:59-0500 Body weight 75.[address] Rosa Kemp Work Phone: [facility] 03-17-2022 16:59-0500 Diastolic blood pressure 56 mm[Hg] Dr. Rosa Kemp Work Phone: [facility] 03-17-2022 16:59-0500 Systolic blood pressure 117 mm[Hg] Dr. Rosa Kemp Work Phone: [facility] 03-01-2022 16:37-0400 Diastolic blood pressure 51 mm[Hg] Dr. Rosa Kemp Work Phone: [facility] 03-01-2022 16:37-0400 Heart rate 69 /min Dr. Rosa Kemp Work Phone: [facility] 03-01-2022 16:37-0400 Respiratory rate 14 /min Dr. Rosa Kemp Work Phone: [facility] 03-01-2022 16:37-0400 SaO2% (BldA) [Mass fraction] 95 % Dr. Rosa Kemp Work Phone: [facility] 03-01-2022 16:37-0400 Systolic blood pressure 122 mm[Hg] Dr. Rosa Kemp Work Phone: [facility] 03-01-2022 13:14-0400 Body height 170.[address] Rosa Kemp Work Phone: [facility] Work Phone: 03-01-2022 13:14-0400 Body mass index (BMI) [Ratio] 26.9 kg/m2 Dr. Rosa Kemp Work Phone: [facility] 03-01-2022 13:14-0400 Body temperature 98.1 [degF] Dr. Rosa Kemp Work Phone: [facility] 03-01-2022 13:14-0400 Body weight 77.[address] Rosa Kemp Work Phone: [facility] 02-16-2022 15:47-0400 Body temperature 98.7 [degF] Dr. Rosa Kemp Work Phone: [facility] 02-16-2022 15:47-0400 Diastolic blood pressure 76 mm[Hg] Dr. Rosa Kemp Work Phone: [facility] 02-16-2022 15:47-0400 Heart rate 96 /min Dr. Rosa Kemp Work Phone: [facility] 02-16-2022 15:47-0400 Respiratory rate 14 /min Dr. Rosa Kemp Work Phone: [facility] 02-16-2022 15:47-0400 SaO2% (BldA) [Mass fraction] 97 % Dr. Rosa Kemp Work Phone: [facility] 02-16-2022 15:47-0400 Systolic blood pressure 118 mm[Hg] Dr. Rosa Kemp Work Phone: [facility] 01-29-2022 15:28-0400 Body temperature 98.78 [degF] JAMES LAMB MD [facility] 01-29-2022 15:28-0400 Diastolic blood pressure 78 mm[Hg] JAMES LAMB MD [facility] 01-29-2022 15:28-0400 Heart rate 82 /min JAMES LAMB MD [facility] 01-29-2022 15:28-0400 Respiratory rate 18 /min JAMES LAMB MD [facility] 01-29-2022 15:28-0400 Systolic blood pressure 132 mm[Hg] JAMES LAMB MD [facility] 01-20-2022 15:49-0400 Body mass index (BMI) [Ratio] 25.9 kg/m2 Dr. Rosa Kemp Work Phone: [facility] Work Phone: 01-20-2022 15:49-0400 Body temperature 97.8 [degF] Dr. Rosa Kemp Work Phone: [facility] Work Phone: 01-20-2022 15:49-0400 Body weight 75.[address] Rosa Kemp Work Phone: [facility] Work Phone: 01-20-2022 15:49-0400 Diastolic blood pressure 78 mm[Hg] Dr. Rosa Kemp Work Phone: [facility] [facility] Work Phone: 01-20-2022 15:49-0400 Heart rate 90 /min Dr. Rosa Kemp Work Phone: [facility] Work Phone: 01-20-2022 15:49-0400 Respiratory rate 16 /min Dr. Rosa Kemp Work Phone: [facility] Work Phone: 01-20-2022 15:49-0400 SaO2% (BldA) [Mass fraction] 97 % Dr. Rosa Kemp Work Phone: [facility] Work Phone: 01-20-2022 15:49-0400 Systolic blood pressure 128 mm[Hg] Dr. Rosa Kemp Work Phone: [facility] Work Phone: 01-18-2022 16:21-0400 Body height 170.[address] Rosa Kemp Work Phone: [facility] Work Phone: 01-18-2022 16:21-0400 Body mass index (BMI) [Ratio] 26.3 kg/m2 Dr. Rosa Kemp Work Phone: [facility] Work Phone: 01-18-2022 16:21-0400 Body temperature 98.9 [degF] Dr. Rosa Kemp Work Phone: [facility] Work Phone: 01-18-2022 16:21-0400 Body weight 76.[address] Rosa Kemp Work Phone: [facility] Work Phone: 01-18-2022 16:21-0400 Diastolic blood pressure 60 mm[Hg] Dr. Rosa Kemp Work Phone: [facility] Work Phone: 01-18-2022 16:21-0400 Heart rate 86 /min Dr. Rosa Kemp Work Phone: [facility] Work Phone: 01-18-2022 16:21-0400 Respiratory rate 17 /min Dr. Rosa Kemp Work Phone: [facility] Work Phone: 01-18-2022 16:21-0400 SaO2% (BldA) [Mass fraction] 98 % Dr. Rosa Kemp Work Phone: [facility] Work Phone: 01-18-2022 16:21-0400 Systolic blood pressure 114 mm[Hg] Dr. Rosa Kemp Work Phone: [facility] Work Phone: 01-06-2022 15:50-0400 Body weight 75.75 kg Nurse Wstr Work Phone: [facility] 01-06-2022 15:50-0400 Diastolic blood pressure 68 mm[Hg] Nurse Wstr Work Phone: [facility] 01-06-2022 15:50-0400 Systolic blood pressure 110 mm[Hg] Nurse Wstr Work Phone: [facility] 12-20-2021 08:31-0400 Body height 167.[address] Rosa Kemp Work Phone: [facility] Work Phone: 12-20-2021 08:31-0400 Body mass index (BMI) [Ratio] 26.1 kg/m2 Dr. Rosa Kemp Work Phone: [facility] Work Phone: 12-20-2021 08:31-0400 Body temperature 98.2 [degF] Dr. Rosa Kemp Work Phone: [facility] Work Phone: 12-20-2021 08:31-0400 Body weight 73.[address] Rosa Kemp Work Phone: [facility] Work Phone: 12-20-2021 08:31-0400 Diastolic blood pressure 92 mm[Hg] Dr. Rosa Kemp Work Phone: [facility] Work Phone: 12-20-2021 08:31-0400 Heart rate 81 /min Dr. Rosa Kemp Work Phone: [facility] Work Phone: 12-20-2021 08:31-0400 Respiratory rate 16 /min Dr. Rosa Kemp Work Phone: [facility] Work Phone: 12-20-2021 08:31-0400 SaO2% (BldA) [Mass fraction] 97 % Dr. Rosa Kemp Work Phone: [facility] Work Phone: 12-20-2021 08:31-0400 Systolic blood pressure 138 mm[Hg] Dr. Rosa Kemp Work Phone: [facility] Work Phone: 12-11-2021 14:49-0400 Body height 167.[address] Rosa Kemp Work Phone: [facility] Work Phone: 12-11-2021 14:49-0400 Body mass index (BMI) [Ratio] 26.9 kg/m2 Dr. Rosa Kemp Work Phone: [facility] Work Phone: 12-11-2021 14:49-0400 Body temperature 98 [degF] Dr. Rosa Kemp Work Phone: [facility] Work Phone: 12-11-2021 14:49-0400 Body weight 75.[address] Rosa Kemp Work Phone: [facility] Work Phone: 12-11-2021 14:49-0400 Diastolic blood pressure 79 mm[Hg] Dr. Rosa Kemp Work Phone: [facility] Work Phone: 12-11-2021 14:49-0400 Heart rate 94 /min Dr. Rosa Kemp Work Phone: [facility] Work Phone: 12-11-2021 14:49-0400 Respiratory rate 16 /min Dr. Rosa Kemp Work Phone: [facility] Work Phone: 12-11-2021 14:49-0400 SaO2% (BldA) [Mass fraction] 97 % Dr. Rosa Kemp Work Phone: [facility] Work Phone: 12-11-2021 14:49-0400 Systolic blood pressure 124 mm[Hg] Dr. Rosa Kemp Work Phone: [facility] Work Phone: 12-09-2021 15:52-0400 Body mass index (BMI) [Ratio] 25.2 kg/m2 Dr. Rosa Kemp Work Phone: [facility] Work Phone: 12-09-2021 15:52-0400 Body temperature 98.8 [degF] Dr. oRsa Kemp Work Phone: [facility] Work Phone: 12-09-2021 15:52-0400 Body weight 73.[address] Rosa Kemp Work Phone: [facility] Work Phone: 12-09-2021 15:52-0400 Diastolic blood pressure 74 mm[Hg] Dr. Rosa Kemp Work Phone: [facility] Work Phone: 12-09-2021 15:52-0400 Heart rate 92 /min Dr. Rosa Kemp Work Phone: [facility] Work Phone: 12-09-2021 15:52-0400 Respiratory rate 16 /min Dr. Rosa Kemp Work Phone: [facility] Work Phone: 12-09-2021 15:52-0400 SaO2% (BldA) [Mass fraction] 98 % Dr. Rosa Kemp Work Phone: [facility] Work Phone: 12-09-2021 15:52-0400 Systolic blood pressure 124 mm[Hg] Dr. Rosa Kemp Work Phone: [facility] Work Phone: 12-07-2021 18:00-0400 Body temperature 98.24 [degF] MYNOR TINOCO MD [facility] 12-07-2021 18:00-0400 Body weight 72.4 kg MYNOR TINOCO MD [facility] 12-07-2021 18:00-0400 Diastolic blood pressure 88 mm[Hg] MYNOR TINOCO MD [facility] 12-07-2021 18:00-0400 Heart rate 92 /min MYNOR TINOCO MD [facility] 12-07-2021 18:00-0400 Mean blood pressure 101 mm[Hg] MYNOR TINOCO MD [facility] 12-07-2021 18:00-0400 Respiratory rate 16 /min MYNOR TINOCO MD [facility] 12-07-2021 18:00-0400 Systolic blood pressure 128 mm[Hg] MYNOR TINOCO MD [facility] 11-20-2021 10:05-0400 Body temperature 98.42 [degF] SAM MACIAS MD [facility] 11-20-2021 10:05-0400 Diastolic blood pressure 78 mm[Hg] SAM MACIAS MD [facility] 11-20-2021 10:05-0400 Heart rate 70 /min SAM MACIAS MD [facility] 11-20-2021 10:05-0400 Respiratory rate 18 /min SAM MACIAS MD [facility] 11-20-2021 10:05-0400 Systolic blood pressure 135 mm[Hg] SAM MACIAS MD [facility] 10-12-2021 08:55-0400 Body mass index (BMI) [Ratio] 27.1 kg/m2 Dr. Rosa Kemp Work Phone: [facility] Work Phone: 10-12-2021 08:55-0400 Body temperature 98.2 [degF] Dr. Rosa Kemp Work Phone: [facility] Work Phone: 10-12-2021 08:55-0400 Body weight 78.[address] Rosa Kemp Work Phone: [facility] Work Phone: 10-12-2021 08:55-0400 Diastolic blood pressure 66 mm[Hg] Dr. Rosa Kemp Work Phone: [facility] Work Phone: 10-12-2021 08:55-0400 Heart rate 87 /min Dr. Rosa Kemp Work Phone: [facility] Work Phone: 10-12-2021 08:55-0400 Respiratory rate 14 /min Dr. Rosa Kemp Work Phone: [facility] Work Phone: 10-12-2021 08:55-0400 SaO2% (BldA) [Mass fraction] 98 % Dr. Rosa Kemp Work Phone: [facility] Work Phone: 10-12-2021 08:55-0400 Systolic blood pressure 108 mm[Hg] Dr. Rosa Kemp Work Phone: [facility] Work Phone: 10-10-2021 17:29-0400 Body height 167.6 cm SAM MACIAS MD [facility] 10-10-2021 17:29-0400 Body temperature 98.06 [degF] SAM MACIAS MD [facility] 10-10-2021 17:29-0400 Body weight 75 kg SAM MACIAS MD [facility] 10-10-2021 17:29-0400 Diastolic blood pressure 85 mm[Hg] SAM MACIAS MD [facility] 10-10-2021 17:29-0400 Heart rate 85 /min SAM MACIAS MD [facility] 10-10-2021 17:29-0400 Respiratory rate 20 /min SAM MACIAS MD [facility] 10-10-2021 17:29-0400 Systolic blood pressure 132 mm[Hg] SAM MACIAS MD [facility] 09-14-2021 14:45-0400 Body temperature 97.8 [degF] Dr. Rosa Kemp Work Phone: [facility] Work Phone: 09-14-2021 14:45-0400 Diastolic blood pressure 76 mm[Hg] Dr. Rosa Kemp Work Phone: [facility] Work Phone: 09-14-2021 14:45-0400 Heart rate 108 /min Dr. Rosa Kemp Work Phone: [facility] Work Phone: 09-14-2021 14:45-0400 Respiratory rate 15 /min Dr. Rosa Kemp Work Phone: [facility] Work Phone: 09-14-2021 14:45-0400 SaO2% (BldA) [Mass fraction] 98 % Dr. Rosa Kemp Work Phone: [facility] Work Phone: 09-14-2021 14:45-0400 Systolic blood pressure 114 mm[Hg] Dr. Rosa Kemp Work Phone: [facility] Work Phone: 09-09-2021 12:17-0400 Body temperature 99.1 [degF] Dr. Rosa Kemp Work Phone: [facility] Work Phone: 09-09-2021 12:17-0400 Diastolic blood pressure 78 mm[Hg] Dr. Rosa Kemp Work Phone: [facility] Work Phone: 09-09-2021 12:17-0400 Heart rate 97 /min Dr. Rosa Kemp Work Phone: [facility] Work Phone: 09-09-2021 12:17-0400 Respiratory rate 16 /min Dr. Rosa Kemp Work Phone: [facility] Work Phone: 09-09-2021 12:17-0400 SaO2% (BldA) [Mass fraction] 98 % Dr. Rosa Kemp Work Phone: [facility] Work Phone: 09-09-2021 12:17-0400 Systolic blood pressure 114 mm[Hg] Dr. Rosa Kemp Work Phone: [facility] Work Phone: 09-06-2021 15:03-0400 Body height 166.4 cm Angelina Bartlett APRN.GRAPE CRUSHER Work Phone: [facility] 09-06-2021 15:03-0400 Body weight 76.57 kg Angelina Bartlett APRN.GRAPE CRUSHER Work Phone: [facility] 09-06-2021 15:03-0400 Diastolic blood pressure 66 mm[Hg] Angelina Bartlett APRN.GRAPE CRUSHER Work Phone: [facility] 09-06-2021 15:03-0400 Systolic blood pressure 120 mm[Hg] Angelina Bartlett APRN.GRAPE CRUSHER Work Phone: [facility] 09-05-2021 17:57-0400 Body temperature 98.78 [degF] SHEYLA URRUTIAT [facility] 09-05-2021 17:57-0400 Diastolic blood pressure 85 mm[Hg] SHEYLA URRUTIAT DO [facility] 09-05-2021 17:57-0400 Heart rate 107 /min SHEYLA URRUTIAT [facility] 09-05-2021 17:57-0400 Respiratory rate 16 /min SHEYLA URRUTIAT [facility] 09-05-2021 17:57-0400 Systolic blood pressure 128 mm[Hg] SHEYLA ROSAS DO [facility] 08-23-2021 09:23-0400 Body weight 79.02 kg Nurse Wstr Work Phone: [facility] 08-23-2021 09:23-0400 Diastolic blood pressure 74 mm[Hg] Nurse Wstr Work Phone: [facility] 08-23-2021 09:23-0400 Systolic blood pressure 124 mm[Hg] Nurse Wstr Work Phone: [facility] 06-25-2021 18:30-0500 Body temperature 98.6 [degF] SHEYLA URRUTIAT DO [facility] 06-25-2021 18:30-0500 Diastolic blood pressure 72 mm[Hg] SHEYLA ROSAS DO [facility] 06-25-2021 18:30-0500 Heart rate 115 /min SHEYLA ROSAS DO [facility] 06-25-2021 18:30-0500 Respiratory rate 18 /min SHEYLA ROSAS DO [facility] 06-25-2021 18:30-0500 Systolic blood pressure 133 mm[Hg] SHEYLA ROSAS DO [facility] Encounters Encounter Date Encounter Type Care Provider Facility Start: 10-16-2024 End: 10-16-2024 ambulatory Rosa Kemp Facility:[facility] Start: 10-12-2024 End: 10-12-2024 Emergency department patient visit CHI RAMIREZ DO [facility] Start: 10-03-2024 End: 10-03-2024 ambulatory Rosa Kepm Facility:[facility] Start: 09-18-2024 End: 09-18-2024 ambulatory Rosa Kemp Facility:[facility] Start: 09-18-2024 End: 09-18-2024 ambulatory Rosa Kemp Facility:[facility] Start: 09-11-2024 End: 09-11-2024 Emergency department patient visit David Persaud Facility:[facility] Start: 09-10-2024 End: 10-24-2024 ambulatory ROSA KEMP MD Facility:[facility] Start: 09-10-2024 End: 10-24-2024 Physical therapy management CLAUDIA BONNER PA-C [facility] Start: 09-04-2024 End: 09-04-2024 ambulatory Rosa Kemp Facility:[facility] Start: 08-31-2024 End: 08-31-2024 Emergency department patient visit JACOB GOFF DO [facility] Start: 08-26-2024 End: 08-26-2024 Emergency department patient visit CHI RAMIREZ DO [facility] Start: 08-19-2024 End: 08-19-2024 Emergency department patient visit ROSA KEMP MD Facility:[facility] Start: 08-18-2024 End: 08-18-2024 [facility] Facility:[facility] Start: 08-07-2024 End: 08-07-2024 ambulatory [facility] Start: 07-17-2024 End: 07-17-2024 ambulatory [facility] Start: 07-08-2024 End: 07-09-2024 [facility] Facility:[facility] Start: 06-30-2024 End: 06-30-2024 ambulatory [facility] Start: 06-19-2024 End: 06-19-2024 ambulatory [facility] Start: 06-18-2024 End: 06-18-2024 ambulatory [facility] Start: 06-17-2024 End: 06-18-2024 ambulatory [facility] Facility:[facility] Start: 06-14-2024 End: 06-14-2024 Emergency department patient visit [facility] Facility:[facility] Start: 06-11-2024 End: 06-11-2024 ambulatory [facility] Start: 06-10-2024 End: 06-11-2024 ambulatory [facility] Facility:[facility] Start: 05-30-2024 End: 05-30-2024 Refill Angelina Bartlett APRN.GRAPE CRUSHER Work Phone: OB/Gynecology Comment on above: Refill Request Start: 05-27-2024 End: 05-27-2024 ambulatory Rosa Kemp Facility[facility] Start: 05-23-2024 End: 05-23-2024 ambulatory Pratima Alvarado Facility:[facility] Start: 05-13-2024 End: 05-13-2024 ambulatory Rosa Kemp Facility:[facility] Start: 05-09-2024 ambulatory Goyo Lim Facility :[facility] Start: 04-07-2024 End: 04-07-2024 ambulatory Rosa Kemp [facility] Start: 03-26-2024 ambulatory Goyo Lim Facility :[facility] Start: 03-25-2024 Encounter for other preprocedural examination Goyo Raphael [facility] Start: 03-24-2024 End: 03-24-2024 ambulatory Rosa Kemp Facility[facility] Start: 03-20-2024 End: 03-20-2024 ambulatory Nette Vallesethelbharti Facility:[facility] Start: 03-11-2024 End: 03-11-2024 Emergency department patient visit Rosa Kemp Facility:[facility] Start: 03-03-2024 End: 03-03-2024 ambulatory Goyo Lim Facility:[facility] Start: 02-27-2024 ambulatory Sagarseattlekenrick Kemp Facili ty:[facility] Start: 02-21-2024 End: 02-21-2024 ambulatory Rosa Kemp [facility] Start: 02-15-2024 End: 02-15-2024 ambulatory Goyo Lim Facility:[facility] Start: 02-14-2024 End: 02-14-2024 Telephone encounter Yaquelinangelina AaronTynusrat UPTON Work Phone: OB/Gynecology Comment on above: Orders Start: 02-13-2024 End: 02-13-2024 ambulatory Rosa Garciase Facility:[facility] Start: 02-12-2024 End: 02-12-2024 Emergency department patient visit Efgeovanna Garciase Facility:[facility] Start: 02-06-2024 End: 02-06-2024 Emergency department patient visit Efgeovanna Kemp Facility:[facility] Start: 02-05-2024 End: 02-05-2024 ambulatory Rosa Kemp Facility:[facility] Start: 02-05-2024 End: 02-05-2024 ambulatory Rosa Kemp Facility:[facility] Start: 02-01-2024 End: 02-01-2024 ambulatory Rosa Kemp Facility:[facility] Start: 02-01-2024 End: 02-01-2024 ambulatory Rosa Kemp Facility:[facility] Start: 01-17-2024 End: 01-17-2024 ambulatory Rosa Kemp Facility:[facility] Start: 01-16-2024 End: 01-16-2024 Emergency department patient visit Rosa Kemp Facility:[facility] Start: 12-19-2023 End: 12-19-2023 Emergency department patient visit Flo Price Facility:[facility] Start: 12-08-2023 End: 12-08-2023 Emergency department patient visit Rosa Kemp Facility:[facility] Start: 11-22-2023 End: 11-22-2023 ambulatory GEOVANNA KEMP Facility:[facility] Start: 11-22-2023 End: 11-22-2023 Initial preventive medicine new pt age 18-39yrs Pratima Kat MD Work Phone: OB/Gynecology Comment on above: Encounter for gyneco logical examination (general) (routine) without abnormal findings (Primary Dx); Screening for cervical cancer; Encounter for screening for human papillomavirus (HPV); Screen for STD (sexually transmitted disease); Other migraine without status migrainosus, not intractable; Bipolar 1 disorder (HCC); Mild intermittent asthma without complication Start: 11-22-2023 End: 11-22-2023 Patient encounter status Pratima Kat MD Work Phone: [facility] Start: 11-19-2023 End: 11-19-2023 Emergency department patient visit SAM MACIAS MD [facility] Start: 11-15-2023 End: 11-15-2023 ambulatory [facility] Facility:[facility] Start: 11-13-2023 Refill Angelina PATRICIO RN.GRAPE CRUSHER Work Phone: OB/Gynecology Comment on above: Refill Request Start: 11-01-2023 End: 11-01-2023 Emergency department patient visit [facility] Facility:[facility] Start: 10-10-2023 Telephone encounter Anna Marie marie APRN.GRAPE CRUSHER Work Phone: [facility] Comment on above: No Show Start: 09-24-2023 End: 09-24-2023 Emergency department patient visit SHEYLA ROSAS DO [facility] Start: 09-13-2023 E-mail encounter fro m caregiver Anna Marie Pérez APRN.GRAPE CRUSHER Work Phone: [facility] Start: 09-13-2023 Patient encounter procedure Anna Marie Prebish MONEY ROOM SUPERVISOR.GRAPE CRUSHER Work Phone: [facility] Comment on above: Reschedule Appointme nt 09/14/2023 Start: 08-29-2023 End: 08-29-2023 Nursing evaluation of patient and report Nurse Fireboat Operator [facility] Work Phone: OB/Gynecology Comment on above: Encounter for manage ment and injection of depo-Provera (Primary Dx) Start: 08-29-2023 End: 08-29-2023 ambulatory [facility] Facility:[facility] Start: 07-13-2023 End: 07-13-2023 Office outpatient new 45 minutes Anna Marie Prebish MONEY ROOM SUPERVISOR.GRAPE CRUSHER Work Phone: [facility] Comment on above: 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); Pain in joint, multiple sites Start: 07-13-2023 End: 07-13-2023 ambulatory ANNA MARIE PREBISH Facility:[facility] Start: 06-29-2023 End: 06-29-2023 Patient encounter procedure Anna Marie Prebish MONEY ROOM SUPERVISOR.GRAPE CRUSHER Work Phone: [facility] Comment on above: Pain in joint, multi ple sites Start: 06-29-2023 [facility] Start: 06-25-2023 Telephone encounter Lis jack MD Work Phone: [facility] Comment on above: Results Start: 06-18-2023 Telephone encounter Lis jack MD Work Phone: [facility] Comment on above: Initial Consult Start: 06-18-2023 End: 06-18-2023 Subsequent hospital visit by physician Kayla Bath [facility] Comment on above: Pain in joint, multi ple sites [M25.50] Start: 06-18-2023 End: 06-18-2023 Patient encounter procedure Lis Freedman MD Work Phone: [facility] Comment on above: Pain in joint, multi ple sites (Primary Dx); Vitamin D deficiency; Low back pain, unspecified back pain laterality, unspecified chronicity, unspecified whether sciatica present Start: 06-18-2023 End: 06-18-2023 ambulatory LIS FREEDMAN Facility:[facility] Start: 06-11-2023 Telephone encounter Angelina segura APRN.GRAPE CRUSHER Work Phone: OB/Gynecology Comment on above: Patient Question Start: 06-06-2023 End: 06-06-2023 [facility] Facility:[facility] Start: 05-30-2023 End: 05-30-2023 Subsequent hospital visit by physician Kayla [facility] Benji Work Phone: Radiology Comment on above: Acute pain of left k nee [M25.562] Start: 05-30-2023 End: 05-30-2023 ambulatory EFONGBE B OLEGHE Facility:[facility] Start: 03-15-2023 End: 03-15-2023 Nursing evaluation of patient and report Nurse Fireboat Operator [facility] Work Phone: OB/Gynecology Comment on above: Encounter for manage ment and injection of depo-Provera (Primary Dx) Start: 03-15-2023 End: 03-15-2023 ambulatory [facility] Facility:[facility] Start: 12-13-2022 End: 12-13-2022 Subsequent hospital visit by physician [facility] 1 [facility] Comment on above: Chronic viral hepati tis C [B18.2] Start: 12-07-2022 Refill Angelina PATRICIO RN.GRAPE CRUSHER Work Phone: OB/Gynecology Comment on above: Refill Request Start: 09-18-2022 End: 09-18-2022 Emergency department patient visit SAM MACIAS MD [facility] Start: 09-05-2022 End: 09-05-2022 Patient encounter procedure Yaquelin Gaston APRN.GRAPE CRUSHER Work Phone: OB/Gynecology Comment on above: Acute cystitis with hematuria (Primary Dx); Dysmenorrhea; Encounter for surveillance of other contraceptive Start: 08-14-2022 End: 08-14-2022 Emergency department patient visit Dr. Rosa Kemp Work Phone: [facility] Start: 07-26-2022 End: 07-26-[address] Rosa Kemp Work Phone: [facility] Start: 07-25-2022 End: 07-25-2022 Emergency department patient visit DILCIA MAURER DO [facility] Start: 07-21-2022 End: 07-21-2022 Emergency department patient visit Dr. Rosa Kemp Work Phone: [facility] Start: 07-20-2022 End: 07-20-[address] Rosa Kemp Work Phone: [facility] Start: 07-18-2022 End: 07-18-[address] Rosa Kemp Work Phone: [facility] Start: 07-05-2022 End: 07-05-[address] Rosa Kemp Work Phone: [facility] Start: 06-10-2022 End: 06-10-2022 Emergency department patient visit Dr. Rosa Kemp Work Phone: [facility] Start: 06-10-2022 End: 06-10-2022 Emergency department patient visit SAM MACIAS MD [facility] Start: 05-24-2022 End: 05-24-2022 Nursing evaluation of patient and report Nurse Fireboat Operator [facility] Work Phone: OB/Gynecology Comment on above: Surveillance for Dep o-Provera contraception (Primary Dx); Encounter for management and injection of depo-Provera Start: 05-18-2022 End: 05-18-[address] Rosa Kemp Work Phone: [facility] Start: 05-09-2022 End: 05-09-[address] Rosa Kemp Work Phone: [facility] Start: 05-06-2022 End: 05-06-2022 Emergency department patient visit Dr. Rosa Kemp Work Phone: [facility] Start: 04-21-2022 End: 04-21-2022 Emergency department patient visit Dr. Rosa Kemp Work Phone: [facility] Start: 04-07-2022 End: 04-07-[address] Rosa Kemp Work Phone: [facility] Start: 03-21-2022 End: 03-21-[address] Rosa Kemp Work Phone: [facility] Start: 03-20-2022 End: 03-20-2022 Emergency department patient visit Dr. Rosa Kemp Work Phone: [facility] Start: 03-17-2022 End: 03-17-2022 Emergency department patient visit Dr. Rosa Kemp Work Phone: [facility] Start: 03-01-2022 End: 03-01-2022 Emergency department patient visit Dr. Rosa Kemp Work Phone: [facility] Start: 02-16-2022 End: 02-16-[address] Rosa Kemp Work Phone: [facility] Start: 01-29-2022 End: 01-29-2022 Emergency department patient visit JAMES LAMB MD [facility] Start: 01-20-2022 End: 01-20-[address] Rosa Kemp Work Phone: [facility] Start: 01-18-2022 End: 01-18-2022 Emergency department patient visit Dr. Rosa Kemp Work Phone: [facility] Start: 01-18-2022 End: 01-18-[address] Rosa Kemp Work Phone: [facility] Start: 01-14-2022 End: 01-14-[address] Rosa Kemp Work Phone: [facility] Work Phone: Start: 01-14-2022 End: 01-14-[address] Rosa Kemp Work Phone: [facility] Start: 01-06-2022 End: 01-06-2022 Nursing evaluation of patient and report Nurse Fireboat Operator [facility]str Work Phone: OB/Gynecology Comment on above: Encounter for manage ment and injection of depo-Provera (Primary Dx) Start: 12-20-2021 End: 12-20-[address] Rosa Kemp Work Phone: [facility] Start: 12-11-2021 End: 12-11-2021 Emergency department patient visit Dr. Rosa Kemp Work Phone: [facility] Start: 12-09-2021 End: 12-09-[address] Rosa Kemp Work Phone: [facility] Start: 12-07-2021 End: 12-07-2021 Emergency department patient visit MYNOR TINOCO MD [facility] Start: 11-24-2021 End: 11-24-[address] Rosa Kemp Work Phone: [facility] Start: 11-20-2021 End: 11-20-2021 Emergency department patient visit SAM MACIAS MD [facility] Start: 10-12-2021 End: 10-12-[address] Rosa Kemp Work Phone: [facility] Start: 10-10-2021 End: 10-10-2021 Emergency department patient visit SAM MACIAS MD [facility] Start: 09-14-2021 End: 09-14-[address] Rosa Kemp Work Phone: [facility] Start: 09-09-2021 End: 09-09-[address] Rosa Kemp Work Phone: [facility] Start: 09-06-2021 End: 09-06-2021 Patient encounter procedure Angelina Bartlett APRN.GRAPE CRUSHER Work Phone: OB/Gynecology Comment on above: Encounter for gyneco logical examination (general) (routine) without abnormal findings (Primary Dx); Need for prophylactic vaccination/inoculation against viral disease; Genital herpes simplex, unspecified site Start: 09-06-2021 End: 09-06-2021 Patient encounter status Angelina Bartlett APRN.GRAPE CRUSHER Work Phone: OB/Gynecology Start: 09-05-2021 End: 09-05-2021 Emergency department patient visit SHEYLA ROSAS DO [facility] Start: 08-23-2021 End: 08-23-2021 Nursing evaluation of patient and report Nurse Fireboat Operator [facility] Work Phone: OB/Gynecology Comment on above: Encounter for manage ment and injection of depo-Provera (Primary Dx) Start: 06-25-2021 End: 06-25-2021 Emergency department patient visit SHEYLA ROSAS DO [facility] Procedures Date Procedure Procedure Detail Performing Clinician Start: 06-18-2023 Radex hand minimum 3 views Lis Freedman MD Work Phone: Start: 05-30-2023 Radiologic exam knee complete 4/more views Vernon Calvin APRN.GRAPE CRUSHER Work Phone: Start: 03-15-2023 Urine test visual color cmprsn meths Love Neyhart Penny MD Work Phone: Start: 12-13-2022 Ultrasound elastography parenchyma [facility] Provider Start: 09-05-2022 Urine test visual color cmprsn mellissa Aaroncalf MONEY ROOM SUPERVISOR.GRAPE CRUSHER Work Phone: Start: 08-14-2022 CT of head without contrast Dr. Rosa Kemp Work Phone: Start: 08-14-2022 Plain chest X-ray Dr. Rosa Kemp Work Phone: Start: 05-24-2022 Urine test visual color cmprsn graysons Love Penny MD Work Phone: Start: 01-14-2022 MRI of lumbar spine Dr. Rosa Kepm Work Phone: Appendectomy SHEYLA NEWTONMEL T DO Cholecystectomy SHEYLA NEWTON MELT DO History of cholecystectomy History of cholecystectomy Dr. Rosa Kemp Work Phone: Streptococcus pyogen es antigen assay Dr. Rosa Kemp Work Phone: Urine culture Dr. Rosa Kemp Work Phone: Urine culture Dr. Rosa Kemp Work Phone: Plan of Treatment Date Care Activity Detail Author Start: 09-06-2031 Urine microalbumin profile DTaP,Tdap,Td Vaccine (7 - Td or Tdap) [facility] Start: 11-21-2028 Screening for malign ant neoplasm of cervix Cervical Cancer Screening [facility] Start: 12-11-2024 HPV TESTING HPV TESTING [facility] Start: 12-11-2024 PAP TESTING PAP TESTING [facility] Start: 12-11-2024 Screening for malign ant neoplasm of cervix [facility] Start: 02-14-2024 End: 02-14-2024 Nursing evaluation of patient and report 02/14/2024 4:00 PM EDT Nurse Visit OB/Gynecology [address] [place] [address] Wstr, Nurse Fireboat Operator [facility] [address] [place] [address] depo OB/Gynecology Comment on above: depo Start: 01-06-2024 Covid-19 Vaccine ( season) Covid-19 Vaccine () [facility] Start: 01-06-2024 Covid-19 Vaccine () Covid-19 Vaccine () [facility] Start: 01-06-2024 Influenza vaccination [facility] Start: 11-21-2023 End: 11-21-2023 Nursing evaluation of patient and report OB/Gynecology Comment on above: Depo Depo - needs annual Start: 10-04-2023 End: 10-04-2023 Patient encounter procedure 10/04/2023 3:30 PM EDT Office Visit [facility] [address] [facility] [place] [address] Anna Marie Pérez APRN.GRAPE CRUSHER [address] [place] [address] follow up [facility] Comment on above: follow up Start: 09-14-2023 End: 09-14-2023 Patient encounter procedure 09/14/2023 2:45 PM EDT Office Visit [facility] [address] [place] [address] Anna Marie Pérez, MONEY ROOM SUPERVISOR.GRAPE CRUSHER [address] [place] [address] 2 month follow up [facility] Comment on above: 2 month follow up Start: 05-07-2023 Depression Assessment Depression Ass essment [facility] Start: 01-05-2023 Covid-19 Vaccine () Covid-19 Vaccine () [facility] Start: 01-05-2023 Influenza vaccination [facility] Start: 08-15-2022 [facility] Start: 08-14-2022 [facility] Start: 07-05-2022 Patient referral [facility] Work Phone: Start: 05-07-2022 DEPRESSION ASSESSMENT DEPRESSION ASS ESSMENT [facility] Start: 03-21-2022 Patient referral [facility] Work Phone: Start: 03-20-2022 [facility] Work Phone: Start: 03-05-2022 9vhpv vacc 2/3 dose sched im use HUMAN PAPILLOMAVIRUS 9-VALENT HPV IM Immunization/Injection Routine Expected: 03/05/2022 (Approximate) [facility] Work Phone: Comment on above: Expected: 03/05/2022 (Approximate) Start: 01-05-2022 Influenza vaccination [facility] Start: 11-05-2021 9vhpv vacc 2/3 dose sched im use HUMAN PAPILLOMAVIRUS 9-VALENT HPV IM Immunization/Injection Routine Expected: 11/05/2021 (Approximate) [facility] Work Phone: Comment on above: Expected: 11/05/2021 (Approximate) Start: 10-04-2021 HPV VACCINE (2 - 3-d ose SCDM series) HPV VACCINE (2 - 3-dose SCDM series) [facility] Start: 2009 Pneumococcal vaccination Pneumococcal Vaccine (1 of 2 - PCV) [facility] Start: 2009 Urine microalbumin profile DTAP,TDAP,TD (4 - Tdap) [facility] Start: 2008 Annual PCP Team Payroll Machine Operator joshua Disease Visit Annual PCP Team Chronic Disease Visit [facility] Start: 2008 Anxiety Screening Anxiety Screening [facility] Start: 2008 Depression Screening Depression Scre ening [facility] Start: 2008 Spirometry Spirometry [facility] Start: 2002 Adult depression screening assessment DEPRESSION SCREENING [facility] Start: 1996 PNEUMOCOCCAL (1 - PCV) PNEUMOCOCCAL (1 - PCV) [facility] Start: 1996 Pneumococcal vaccination [facility] Start: 09-17-1995 COVID-19 VACCINE (1) Cl [facility] Start: 03-19-1991 COVID-19 VACCINE (#1) COVID-19 VACCI NE (#1) [facility] Start: 1990 HEPATITIS B (1 of 3 - 3-dose series) HEPATITIS B (1 of 3 - 3-dose series) [facility] Bacteria identified in Urine by Culture URINE CULTURE Microbiology Routine Acute cystitis with hematuria 09/05/2022 3:29 PM EDT [facility] Work Phone: Chlamydia trachomatis+Neisseria gonorrhoeae DNA [Presence] in Unspecified specimen by AUSTIN with probe detection GONORRHEA/CHLAMYDIA NAAT Lab Routine Screen for STD (sexually transmitted disease) 11/22/2023 2:10 PM EDT [facility] PAP TEST PAP TEST Lab Louie le Screening for cervical cancer Encounter for screening for human papillomavirus (HPV) 11/22/2023 2:10 PM EDT [facility] Work Phone: Patient Education [facility] Work Phone: Patient referral [facility] Work Phone: Streptococcus pyogen es antigen assay Group A Streptococcus Rapid Screen [facility] Work Phone: Therapeutic prophylactic/dx injection subq/im THER/PROPH/DIAG INJ, SC/IM Procedures Routine Need for prophylactic vaccination/inoculation against viral disease Ordered: 09/06/2021 [facility] Work Phone: Comment on above: Ordered: 09/06/2021 [facility] Immunizations Immunization Date Immunization Notes Care Provider Loc sarkar 09-06-2021 Human Papillomavirus 9-valent vaccine Angelina Bartlett APRN.CNP Work Phone: [facility] Work Phone: 09-05-2021 tetanus toxoid, redu tadeo diphtheria toxoid, and acellular pertussis vaccine, fausto ROSAS DO [facility] 10-08-2019 tetanus toxoid, redu tadeo diphtheria toxoid, and acellular pertussis vaccine, adsorbed; Translations: [Boostrix (Tdap)] SHEYLA ROSAS DO [facility] 04-30-2018 tetanus toxoid, redu tadeo diphtheria toxoid, and acellular pertussis vaccine, adsorbed Dr. Rosa Kemp Work Phone: [facility] 04-25-2014 tetanus and diphther ia toxoids, adsorbed, preservative free, for adult use (2 Lf of tetanus toxoid and 2 Lf of diphtheria toxoid) Dr. Rosa Kemp Work Phone: [facility] 04-21-1991 diphtheria, tetanus toxoids and acellular pertussis vaccine Nurse Wstr Work Phone: [facility] 04-21-1991 DTP-Haemophilus influenzae type b conjugate vaccine Nurse Wstr Work Phone: [facility] 01-14-1991 diphtheria, tetanus toxoids and acellular pertussis vaccine Nurse Wstr Work Phone: [facility] 01-14-1991 DTP-Haemophilus influenzae type b conjugate vaccine Nurse Wstr Work Phone: [facility] 01-14-1991 trivalent poliovirus vaccine, live, oral Nurse Wstr Work Phone: [facility] 1990 diphtheria, tetanus toxoids and acellular pertussis vaccine Nurse Wstr Work Phone: [facility] 1990 trivalent poliovirus vaccine, live, oral Nurse Wstr Work Phone: [facility] Payers Date Payer Category Payer Unknown [id number] 2024 Unknown [id number] 2024 Unknown [id number] 2023 Self-pay [id number] 2020 Medicaid [employer] [id number] 2020-Present [phone] [address] [place] [address] Medicaid [id number] 2020 Medicaid [id number] 2015 Unknown [id number] 1990 Unknown [id number] 2.16840.1.120335.3.579.2. 1990 Unknown [id number] 2.16840.1.919589.3.579.2. 1990 Unknown [id number] 2.16840.1.305156.3.579.2. 1990 Unknown [id number] 2.16840.1.667812.3.579.2. 1990 Unknown [id number] 2.16.840.1.397670.3.579.2. 1990 Unknown [id number] 2.16.840.1.644834.3.579.2. 1990 Unknown [id number] 2.16840.1.388015.3.579.2.627 Unknown [id number] Unknown [id number] 2.16840.1.984326.3.579.2.462 Unknown [id number] 2.16840.1.032898.3.579.2.462 Unknown [id number] 2.16.840.1.100022.3.579.2.462 Unknown [id number] 2.16.840.1.402520.3.579.2.462 Unknown [id number] 2.16.840.1.417625.3.579.2.462 Unknown [id number] 2.16.840.1.963097.3.579.2.462 Unknown [id number] 2.16.840.1.741740.3.579.2.462 Unknown [id number] 2.16.840.1.236292.3.579.2.462 Unknown [id number] 2.16840.1.561690.3.579.2.462 Unknown [id number] 2.16840.1.076481.3.579.2.462 Unknown [id number] 2.840.1.740856.3.579.2.462 Unknown [id number] 2.16840.1.060435.3.579.2.462 Unknown [id number] 2.16840.1.536873.3.579.2.462 Unknown [id number] 2.16840.1.025966.3.579.2.462 Unknown [id number] 2.16840.1.857553.3.579.2.462 Unknown [id number] 2.16.840.1.949072.3.579.2.462 Unknown [id number] 2.16.840.1.166496.3.579.2.462 Unknown [id number] 2.16.840.1.288769.3.579.2.462 Unknown [id number] 2.16.840.1.783790.3.579.2.462 Unknown [id number] 2.16.840.1.226952.3.579.2.462 Unknown [id number] 2.16.840.1.450812.3.579.2.462 Unknown [id number] 2.16.840.1.846360.3.579.2.462 Unknown [id number] 2.16.840.1.372922.3.579.2.462 Unknown [id number] 2.16.840.1.791597.3.579.2.462 Unknown [id number] 2.16840.1.193069.3.579.2.462 Unknown [id number] 2.16840.1.642496.3.579.2.462 Unknown [id number] 2.840.1.567248.3.579.2.462 Unknown [id number] 2.840.1.209262.3.579.2.462 Unknown [id number] 2.840.1.037072.3.579.2.462 Unknown [id number] 2.840.1.824445.3.579.2.462 Unknown [id number] 2.840.1.772638.3.579.2.462 Unknown [id number] 2.840.1.477714.3.579.2.462 Unknown [id number] 2.840.1.015480.3.579.2.462 Unknown [id number] 2.840.1.916036.3.579.2.462 Unknown [id number] 2.16840.1.113684.3.579.2.462 Unknown [id number] 2.16840.1.312947.3.579.2.462 Unknown [id number] 2.16.840.1.471093.3.579.2.462 Unknown [id number] 2.16840.1.815534.3.579.2.462 Unknown [id number] 2.16840.1.686950.3.579.2.462 Unknown [id number] 2.16.840.1.010566.3.579.2.462 Unknown [id number] 2.16.840.1.727378.3.579.2.462 Unknown [id number] 2.16.840.1.785922.3.579.2.462 Unknown [id number] 2.16.840.1.213703.3.579.2.462 Unknown [id number] 2.16.840.1.270490.3.579.2.462 Unknown [id number] 2.16.840.1.289946.3.579.2.462 Social History Date Type Detail Facility Start: 05-06-2019 End: 08-31-2024 Heavy tobacco smoker (finding) [facility] Start: 1990 Sex Assigned At Female A [facility] Start: 01-06-2022 End: 06-29-2023 Tobacco smoking status NHIS Smokes tobacco daily [facility] History of tobacco use Cigarette Smoker [facility] Work Phone: Start: 06-01-2021 End: 11-22-2023 Alcohol intake Current drinker of alcohol (finding) [facility] Start: 12-12-2019 History SDOH Alcohol Comment Seldom [facility] Start: 08-13-2021 End: 01-04-2022 Exposure to SARS-CoV-2 (event) Not sure [facility] Work Phone: Start: 12-11-2021 End: 08-14-2022 Tobacco smoking status NHIS Unknown if ever smoked [facility] Start: 10-01-2018 Rare [place] [facility] Start: 10-01-2018 Spouse/ Signif icant Other [facility] Start: 01-06-2022 End: 12-08-2022 Cigarettes smoked current (pack per day) - Reported 0.3 [facility] Start: 01-06-2022 End: 06-29-2023 Tobacco use and exposure Smokeless tobacco non-user [facility] Work Phone: Start: 09-05-2022 End: 12-08-2022 Tobacco use panel [facility] National Score (1-100), lower number is lower risk 63 [facility] Start: 11-21-2020 Gender identity Identifies as female gender (finding) [facility] Start: 06-29-2023 Tobacco Comment 3-[address] [facility] Start: 05-30-2024 Sexual orientation Heterosexual (fin ding) [facility] Start: 08-19-2024 Tobacco smoking status Light t obacco smoker (finding) [facility] Sexual Orientation [facility] Start: 05-06-2019 Sex Female (finding) [facility] NEGATED: Highlighted row [facility] Medical Equipment Procedure Code Equipment Code Equipment Original Text Equipment Identifier Dates Total cholecystectomy with exploration of common bile duct CLINICAL SERVICES DIRECTOR,CLIP 5MM LIGAMAX FDA Start: 08-22-2019 Total cholecystectomy with exploration of common bile duct CLIP,HEMOLOCK MED WECK FDA Start: 08-22-2019 Total cholecystectomy with exploration of common bile duct CLIP,HEMOLOCK MED WECK FDA Start: 08-22-2019 Total cholecystectomy with exploration of common bile duct CLIP,HEMOLOCK MED WECK FDA Start: 08-22-2019 Total cholecystectomy with exploration of common bile duct SURGICEL, POWDER 3GR FDA Start: 08-22-2019 Total cholecystectomy with exploration of common bile duct CLINICAL SERVICES DIRECTOR,CLIP 5MM LIGAMAX FDA Start: 08-22-2019 Total cholecystectomy with exploration of common bile duct CLIP,HEMOLOCK MED WECK FDA Start: 08-22-2019 Total cholecystectomy with exploration of common bile duct CLIP,HEMOLOCK MED WECK FDA Start: 08-22-2019 Total cholecystectomy with exploration of common bile duct CLIP,HEMOLOCK MED WECK FDA Start: 08-22-2019 Total cholecystectomy with exploration of common bile duct SURGICEL, POWDER 3GR FDA Start: 08-22-2019 Total cholecystectomy with exploration of common bile duct CLINICAL SERVICES DIRECTOR,CLIP 5MM LIGAMAX FDA Start: 08-22-2019 Total cholecystectomy with exploration of common bile duct CLIP,HEMOLOCK MED WECK FDA Start: 08-22-2019 Total cholecystectomy with exploration of common bile duct CLIP,HEMOLOCK MED WECK FDA Start: 08-22-2019 Total cholecystectomy with exploration of common bile duct CLIP,HEMAMANDA HINTON FDA Start: 08-22-2019 Total cholecystectomy with exploration of common bile duct SURGICEL, POWDER 3GR FDA Start: 08-22-2019 Total cholecystectomy with exploration of common bile duct CLINICAL SERVICES DIRECTOR,CLIP 5MM LIGAMAX FDA Start: 08-22-2019 Total cholecystectomy with exploration of common bile duct CLIP,VINAYAKAMANDA HINTON FDA Start: 08-22-2019 Total cholecystectomy with exploration of common bile duct CLIP,HEMAMANDA HINTON FDA Start: 08-22-2019 Total cholecystectomy with exploration of common bile duct CLIP,HEMAMANDA HINTON FDA Start: 08-22-2019 Total cholecystectomy with exploration of common bile duct SURGICEL, POWDER 3GR FDA Start: 08-22-2019 Total cholecystectomy with exploration of common bile duct CLINICAL SERVICES DIRECTOR,CLIP 5MM LIGAMAX FDA Start: 08-22-2019 Total cholecystectomy with exploration of common bile duct CLIP,PATRICE HINTON FDA Start: 08-22-2019 Total cholecystectomy with exploration of common bile duct CLIP,PATRICE HINTON FDA Start: 08-22-2019 Total cholecystectomy with exploration of common bile duct CLIP,VINAYAKAMANDA HINTON FDA Start: 08-22-2019 Total cholecystectomy with exploration of common bile duct SURGICEL, POWDER 3GR FDA Start: 08-22-2019 Total cholecystectomy with exploration of common bile duct CLINICAL SERVICES DIRECTOR,CLIP 5MM LIGAMAX FDA Start: 08-22-2019 Total cholecystectomy with exploration of common bile duct CLIP,VINAYAKAMANDA HINTON FDA Start: 08-22-2019 Total cholecystectomy with exploration of common bile duct CLIP,VINAYAKAMANDA HINTON FDA Start: 08-22-2019 Total cholecystectomy with exploration of common bile duct CLIP,HEMAMANDA RICO WEBATSHEVA FDA Start: 08-22-2019 Total cholecystectomy with exploration of common bile duct SURGICEL, POWDER 3GR FDA Start: 08-22-2019 Total cholecystectomy with exploration of common bile duct CLINICAL SERVICES DIRECTOR,CLIP 5MM LIGAMAX FDA Start: 08-22-2019 Total cholecystectomy with exploration of common bile duct CLIP,VINAYAKAMANDA HINTON FDA Start: 08-22-2019 Total cholecystectomy with exploration of common bile duct CLIP,PATRICE HINTON FDA Start: 08-22-2019 Total cholecystectomy with exploration of common bile duct CLIP,HEMAMANDA HINTON FDA Start: 08-22-2019 Total cholecystectomy with exploration of common bile duct SURGICEL, POWDER 3GR FDA Start: 08-22-2019 Total cholecystectomy with exploration of common bile duct CLINICAL SERVICES DIRECTOR,CLIP 5MM LIGAMAX FDA Start: 08-22-2019 Total cholecystectomy with exploration of common bile duct CLIP,PATRICE STONERBATSHEVA FDA Start: 08-22-2019 Total cholecystectomy with exploration of common bile duct CLIP,MARCOBATSHEVA JACKY MARY JANE FDA Start: 08-22-2019 Total cholecystectomy with exploration of common bile duct CLIP,MARCOBATSHEVA JACKY STONERBATSHEVA FDA Start: 08-22-2019 Total cholecystectomy with exploration of common bile duct SURGICEL, POWDER 3GR FDA Start: 08-22-2019 Total cholecystectomy with exploration of common bile duct CLINICAL SERVICES DIRECTOR,CLIP 5MM LIGAMAX FDA Start: 08-22-2019 Total cholecystectomy with exploration of common bile duct CLIP,MARCOBATSHEVA JACKY MARY JANE FDA Start: 08-22-2019 Total cholecystectomy with exploration of common bile duct CLIP,VINAYAKAMANDA HINTON FDA Start: 08-22-2019 Total cholecystectomy with exploration of common bile duct CLIP,MARCOBATSHEVA JACKY MARY JANE FDA Start: 08-22-2019 Total cholecystectomy with exploration of common bile duct SURGICEL, POWDER 3GR FDA Start: 08-22-2019 Total cholecystectomy with exploration of common bile duct CLINICAL SERVICES DIRECTOR,CLIP 5MM LIGAMAX FDA Start: 08-22-2019 Total cholecystectomy with exploration of common bile duct CLIP,PATRICE STONERBATSHEVA FDA Start: 08-22-2019 Total cholecystectomy with exploration of common bile duct CLIP,PATRICE RICO MARY JANE FDA Start: 08-22-2019 Total cholecystectomy with exploration of common bile duct CLIP,MARCOBATSHEVA JACKY MARY JANE FDA Start: 08-22-2019 Total cholecystectomy with exploration of common bile duct SURGICEL, POWDER 3GR FDA Start: 08-22-2019 Total cholecystectomy with exploration of common bile duct CLINICAL SERVICES DIRECTOR,CLIP 5MM LIGAMAX FDA Start: 08-22-2019 Total cholecystectomy with exploration of common bile duct CLIP,PATRICE RICO MARY JANE FDA Start: 08-22-2019 Total cholecystectomy with exploration of common bile duct CLIP,PATRICE RICO MARY JANE FDA Start: 08-22-2019 Total cholecystectomy with exploration of common bile duct CLIP,MARCOBATSHEVA JACKY MARY JANE FDA Start: 08-22-2019 Total cholecystectomy with exploration of common bile duct SURGICEL, POWDER 3GR FDA Start: 08-22-2019 Functional Status Date Assessment Result Facility 08-31-2024 Functional Status ID band on, Allergy Band on, Call device within reach, Bed in low position, Wheels locked, Bedside Cart Locked, Safety level maintained [facility] 11-19-2023 Functional Status Independent [facility] 11-19-2023 Functional Status Standard Safet y ID band on, Call device within reach, Bed in low position, Wheels locked [facility] 09-24-2023 Functional Status Standard Safet y ID band on, Allergy Band on, Call device within reach, Bed in low position, Wheels locked, Upper/Half-Length side-rails up, Bedside Cart Locked, Safety level maintained [facility] 09-18-2022 Functional Status Up ad camila [facility] 07-25-2022 Functional Status Standard Safet y ID band on, Allergy Band on, Call device within reach, Bed in low position, Wheels locked, Bedside Cart Locked, Safety level maintained [facility] 07-25-2022 Functional Status [facility] 06-10-2022 Functional Status Room check performed [facility] 01-29-2022 Functional Status ID band on, Allergy Band on, Call device within reach, Bed in low position, Wheels locked, Upper/Half-Length side-rails up, Phone within reach, personal items within reach, Assistive devices within reach, Toileting device within reach, Bedside Cart Locked, Visitor at bedside, Safety level maintained [facility] 12-07-2021 Functional Status ID band on, Allergy Band on, Call device within reach, Bed in low position, Wheels locked, Upper/Half-Length side-rails up, Phone within reach, personal items within reach [facility] 11-20-2021 Functional Status ID band on, Call device within reach, Bed in low position, Wheels locked, Upper/Half-Length side-rails up, Phone within reach, personal items within reach, Assistive devices within reach, Toileting device within reach, Bedside Cart Locked, Visitor at bedside, Safety level maintained [facility] 10-10-2021 Functional Status Resting [facility] 09-05-2021 Functional Status [facility] Mental Status Date Assessment Result Facility 08-31-2024 Mental Status Oriented x 4 [facility] 11-19-2023 Mental Status Orientation Oriented x 4 [facility] 11-19-2023 Mental Status [facility] 09-18-2022 Mental Status Orientation Oriented x 4 [facility] 08-14-2022 Cognitive function Level Of Cons ciousness Awake;Alert;Appropriate [facility] Work Phone: 07-25-2022 Mental Status Orientation Oriented x 4 [facility] 06-10-2022 Cognitive function Level Of Cons ciousness Awake;Alert;Appropriate;Follow s Commands [facility] Work Phone: 06-10-2022 Mental Status Oriented x 4 [facility] 05-06-2022 Cognitive function Level Of Cons ciousness Awake;Alert;Appropriate;Follow s Commands;Responds to vocal stimuli [facility] Work Phone: 04-21-2022 Cognitive function Level Of Cons ciousness Awake;Alert;Follows Commands [facility] Work Phone: 03-01-2022 Cognitive function Level Of Cons ciousness Awake;Alert;Appropriate;Follow s Commands [facility] Work Phone: 01-29-2022 Mental Status Oriented x 4 [facility] 12-07-2021 Mental Status Oriented x 4 [facility] 11-20-2021 Mental Status Oriented x 4 [facility] 10-10-2021 Mental Status Orientation Oriented x 4 [facility] 09-05-2021 Mental Status [facility] Clinical Notes 06-25-2021 to 10-12-2024 Telephone Encounter - Marissa Givens RN - 05/30/2024 1:56 PM ESTTelephone Encounter - Marissa Givens RN - 05/30/2024 1:56 PM ESTTelephone Encounter - Marissa Givens RN - 05/30/2024 1:55 PM EST Note Date & Type Note Facility 10-12-2024 Hospital Discharge instructions Patient Education 10/12/2024 14:46:23 Medicine for Pain Medicine for Pain Medicines can help to block pain, decrease inflammation, and treat related problems. More than one medicine may be used to treat your pain. Medicines may be changed as you feel better, or if they cause side effects. Medicines What they do Possible side effects Non-opioid NSAIDs, aspirin, acetaminophen Reduce pain chemicals at the site of pain. NSAIDs can reduce joint and soft tissue inflammation. Nausea, stomach pain, ulcers, indigestion, bleeding, kidney, and liver problems. Certain NSAIDs may increase the risk for cardiovascular disease in some people. Talk with your healthcare provider. Opioids (morphine and similar medicines often called narcotics) Reduce feelings or perception of pain. Used for moderate to severe pain. Nausea, vomiting, itching, drowsiness, constipation, slowed breathing Other medicines (corticosteroids, antinausea, antidepressant, and antiseizure medicines) Reduce swelling, burning or tingling pain, or certain side effects of pain medicines, such as nausea or vomiting Your healthcare provider will explain the possible side effects of these medicines. Anesthetics (local, injected) include lidocaine, benzocaine, and medicines used by anesthesiologists Stop pain signals from reaching the brain by blocking feeling in the treated area Nausea, low blood pressure, fever, slowed breathing, fainting, seizures, heart attack When to call your healthcare provider Call your healthcare provider right away (or have a family member call) if you have: Unrelieved pain Side effects, including constipation or uncontrolled nausea, that interfere with daily activities If you have extreme sleepiness or breathing problems, call 911. Other precautions Ask your healthcare provider or pharmacist how to get rid of your pain medicines safely when you stop using them. Never share your pain medicines with anyone. Store your medicines in a safe place so they can t be stolen. If you think your medicine has been stolen or lost, tell your healthcare provider right away. [id number] [employer]. [address] [place] [address], [place] [address]. All rights reserved. This information is not intended as a substitute for professional medical care. Always follow your healthcare professional's instructions. Follow Up Care 10/12/2024 14:26:12 With:ROSA KEMP MD Address: [address] [place] [address] [place] [address] [phone] When:2-4 days [facility] 10-12-2024 Note Discharge Instructions Thank you for allowing [facility] to assist you with your healthcare needs. The following is important discharge information regarding your hospital visit. Diagnosis from Today's Visit Left ankle pain What to Do Next Instructions from Your Care Team No qualifying data available. Post Acute Orders No qualifying data available. You Need to Schedule the Following Appointments Follow Up with ROSA KEMP MD When:Within 2-4 days Where:[address] [place] [address] [place] [address] [phone] Allergies naproxen Nausea Medications Please ask your primary doctor or pharmacist before taking any other medication not listed, including over the counter drugs, herbal medications, vitamins and or supplements as they may interact with your home medications. What How Much When Instructions Last Dose Unchanged acyclovir (acyclovir 400 mg oral tablet) Unchanged amLODIPine (amLODIPine 5 mg oral tablet) 1 tab(s) by mouth Once a day Unchanged atomoxetine (atomoxetine 80 mg oral capsule) 1 cap by mouth Once a day (in the morning) Unchanged buPROPion (buPROPion 150 mg/ 24 hours (XL) oral tablet, extended release) Unchanged cariprazine (Vraylar 3 mg oral capsule) 1 cap by mouth Once a day Unchanged famotidine (Pepcid 20 mg oral tablet) 1 tab(s) by mouth Two (2) times a day Duration: 7 Days Unchanged FLUoxetine (FLUoxetine 40 mg oral capsule) Unchanged gabapentin (gabapentin 400 mg oral capsule) Unchanged hydrOXYzine (hydrOXYzine pamoate 25 mg oral capsule) Unchanged lamoTRIgine (lamoTRIgine 100 mg oral tablet) Unchanged lamoTRIgine (lamoTRIgine 150 mg oral tablet) Unchanged LORazepam (LORazepam 0.5 mg oral tablet) Unchanged OXcarbazepine (OXcarbazepine 600 mg oral tablet) Unchanged risperiDONE (risperiDONE 2 mg oral tablet) Unchanged risperiDONE (risperiDONE 2 mg oral tablet) Unchanged SUMAtriptan (SUMAtriptan 25 mg oral tablet) Unchanged valACYclovir (valACYclovir 500 mg oral tablet) 1 tab(s) by mouth Once a day Please take this list to your next doctor s visit. Bring all medications you take, including over the counter medications, herbals and other supplements with you to your doctor s visit. Patients and families are reminded to discard old lists and to update any records with all medication providers or retail pharmacies. Education Materials Medicine for Pain Medicines can help to block pain, decrease inflammation, and treat related problems. More than one medicine may be used to treat your pain. Medicines may be changed as you feel better, or if they cause side effects. Medicines What they do Possible side effects Non-opioid NSAIDs, aspirin, acetaminophen Reduce pain chemicals at the site of pain. NSAIDs can reduce joint and soft tissue inflammation. Nausea, stomach pain, ulcers, indigestion, bleeding, kidney, and liver problems. Certain NSAIDs may increase the risk for cardiovascular disease in some people. Talk with your healthcare provider. Opioids (morphine and similar medicines often called narcotics) Reduce feelings or perception of pain. Used for moderate to severe pain. Nausea, vomiting, itching, drowsiness, constipation, slowed breathing Other medicines (corticosteroids, antinausea, antidepressant, and antiseizure medicines) Reduce swelling, burning or tingling pain, or certain side effects of pain medicines, such as nausea or vomiting Your healthcare provider will explain the possible side effects of these medicines. Anesthetics (local, injected) include lidocaine, benzocaine, and medicines used by anesthesiologists Stop pain signals from reaching the brain by blocking feeling in the treated area Nausea, low blood pressure, fever, slowed breathing, fainting, seizures, heart attack When to call your healthcare provider Call your healthcare provider right away (or have a family member call) if you have: Unrelieved pain Side effects, including constipation or uncontrolled nausea, that interfere with daily activities If you have extreme sleepiness or breathing problems, call 911. Other precautions Ask your healthcare provider or pharmacist how to get rid of your pain medicines safely when you stop using them. Never share your pain medicines with anyone. Store your medicines in a safe place so they can t be stolen. If you think your medicine has been stolen or lost, tell your healthcare provider right away. [id number] [employer]. [address] [place] [address], [place] [address]. All rights reserved. This information is not intended as a substitute for professional medical care. Always follow your healthcare professional's instructions. Additional Information VACCINATE! IT SAVES LIVES! Members of the community who have not yet received the COVID-19 vaccine and would like to receive it can visit one of [facility] vaccine clinics. There are many vaccine clinic locations within the [facility]. For locations and available times, please visit [email or web address] It is important to note that some COVID mobile vaccine clinics are held outdoors and may be canceled in rainy or stormy conditions. To learn more about pediatric vaccinations (ages 5-11), we invite you to visit the [facility] webpage. [email or web address]://[email or web address] [email or web address] [email or web address] To learn more about the COVID-19 vaccine, we invite you to visit the CDC website for a list of frequently asked questions. https://www.cdc.gov/coronavirus/ 2019-ncov/vaccines/faq.html [facility] Patient Portal Access Instructions: Stay connected with your healthcare team and access your personal medical information anytime with the [facility] Patient Portal. If you would like a full copy of your medical records please contact the [facility] Medical Records Department Sunday through Sunday between 8a.m. and 4:30p.m. Please follow the directions below to access the portal: 1.Access the email account you provided upon registration to the hospital.2.Look for an invitation email from [facility].3.Open the email and access the invitation link: Accept Invitation to [facility]4.Fill in the required arteaga to create your account. Sign into [email or web address] with your username and password that you [...] you will allow to register on the [employer] Patient Portal for access to your information. You can also access the [employer] Patient Portal on the [facility] nat. Simply click on Health Records under Health Data and then click on the [employer] logo. HOW TO SAFELY DISPOSE OF PRESCRIPTION [...] Call your local pharmacy or go to [email or web address] to find one close to you.3.Make use of household items: Use cat litter or old coffee grounds to dispose medications if other options are not available. Mix your drugs with these household products, seal them in an airtight container and throw it into the garbage. Call [facility]: [phone] to be sure your drugs can be [...] a CHART COPY Signatures Patient Education Materials Medicine for Pain Medication Leaflets My discharge plan and instructions have been reviewed and explained to me and I,SANDIE BECERRIL understand my current condition and have read and understand these discharge instructions. I have received a written copy of the plan/instructions. If I have questions, I am aware that I should contact my doctor. 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 It is a normal response to stress and usually causes only a mild reaction. When anxiety becomes more severe, it can interfere with daily life. In some cases, you may not even be aware of what it is you re anxious about. There may also be a genetic link or it may be a learned behavior in the home. Both psychological and physical triggers cause stress reaction. It's often a response to fear or emotional stress, real or imagined. This stress may come from home, family, work, or social relationships. During an anxiety reaction, you may feel: Helpless Nervous Depressed Irritable Your body may show signs of anxiety in many ways. You may experience: Dry mouth Shakiness Dizziness Weakness Trouble breathing Breathing fast (hyperventilating) Chest pressure Sweating Headache Nausea Diarrhea Tiredness Inability to sleep Sexual problems Home care Try to locate the sources of stress in your life. They may not be obvious. These may include: oDaily hassles of life (such as traffic jams, missed appointments, or car troubles) oMajor life changes, both good (new baby or job promotion) and bad (loss of job or loss of loved one) oOverload: feeling that you have too many responsibilities and can't take care of all of them at once oFeeling helpless or feeling that your problems are beyond what you re able to solve Notice how your body reacts to stress. Learn to listen to your body signals. This will help you take action before the stress becomes severe. When you can, do something about the source of your stress. (Avoid hassles, limit the amount of change that happens in your life at one time and take a break when you feel overloaded). Unfortunately, many stressful situations can't be avoided. It is necessary to learn how to better manage stress. There are many proven methods that will reduce your anxiety. These include simple things like exercise, good nutrition, and adequate rest. Also, there are certain techniques that are helpful: oRelaxation oBreathing exercises oVisualization oBiofeedback oMeditation For more information about this, consult your healthcare provider or go to a local bookstore and review the many books and tapes available on this subject. Follow-up care If you feel that your anxiety is not responding to self-help measures, contact your healthcare provider or make an appointment with a counselor. You may need short-term psychological counseling and temporary medicine to help you manage stress. Call 911 Call 911 if any of these happen: Trouble breathing Confusion Drowsiness or trouble wakening Fainting or loss of consciousness Rapid heart rate Seizure New chest pain that becomes more severe, lasts longer, or spreads into your shoulder, arm, neck, jaw, or back When to seek medical advice Call your healthcare provider right away if any of these happen: Your symptoms get worse Severe headache not relieved by rest and mild pain reliever [phone] [employer]. [address] [place] [address], [place] [address]. All rights reserved. This information is not intended as a substitute for professional medical care. Always follow your healthcare professional's instructions. Follow Up Care 08/31/2024 15:22:23 With:Follow up with primary care provider Address:Unknown When:2-4 days [facility] 08-31-2024 Note Discharge Instructions Thank you for allowing [facility] to assist you with your healthcare needs. The following is important discharge information regarding your hospital visit. Diagnosis from Today's Visit Anxiety attack What to Do Next Instructions from Your Care Team No qualifying data available. Post Acute Orders No qualifying data available. You Need to Schedule the Following Appointments Follow Up with Follow up with primary care provider When:Within 2-4 days Allergies naproxen Nausea Medications Please ask your primary doctor or pharmacist before taking any other medication not listed, including over the counter drugs, herbal medications, vitamins and or supplements as they may interact with your home medications. What How Much When Instructions Last Dose Unchanged acyclovir (acyclovir 400 mg oral tablet) Unchanged amLODIPine (amLODIPine 5 mg oral tablet) 1 tab(s) by mouth Once a day Unchanged atomoxetine (atomoxetine 80 mg oral capsule) 1 cap by mouth Once a day (in the morning) Unchanged buPROPion (buPROPion 150 mg/ 24 hours (XL) oral tablet, extended release) Unchanged cariprazine (Vraylar 3 mg oral capsule) 1 cap by mouth Once a day Unchanged famotidine (Pepcid 20 mg oral tablet) 1 tab(s) by mouth Two (2) times a day Duration: 7 Days Unchanged FLUoxetine (FLUoxetine 40 mg oral capsule) Unchanged gabapentin (gabapentin 400 mg oral capsule) Unchanged hydrOXYzine (hydrOXYzine pamoate 25 mg oral capsule) Unchanged lamoTRIgine (lamoTRIgine 100 mg oral tablet) Unchanged lamoTRIgine (lamoTRIgine 150 mg oral tablet) Unchanged LORazepam (LORazepam 0.5 mg oral tablet) Unchanged OXcarbazepine (OXcarbazepine 600 mg oral tablet) Unchanged risperiDONE (risperiDONE 2 mg oral tablet) Unchanged risperiDONE (risperiDONE 2 mg oral tablet) Unchanged SUMAtriptan (SUMAtriptan 25 mg oral tablet) Unchanged valACYclovir (valACYclovir 500 mg oral tablet) 1 tab(s) by mouth Once a day Please take this list to your next doctor s visit. Bring all medications you take, including over the counter medications, herbals and other supplements with you to your doctor s visit. Patients and families are reminded to discard old lists and to update any records with all medication providers or retail pharmacies. Education Materials Anxiety Reaction Anxiety is the feeling we all get when we think something bad might happen. It is a normal response to stress and usually causes only a mild reaction. When anxiety becomes more severe, it can interfere with daily life. In some cases, you may not even be aware of what it is you re anxious about. There may also be a genetic link or it may be a learned behavior in the home. Both psychological and physical triggers cause stress reaction. It's often a response to fear or emotional stress, real or imagined. This stress may come from home, family, work, or social relationships. During an anxiety reaction, you may feel: Helpless Nervous Depressed Irritable Your body may show signs of anxiety in many ways. You may experience: Dry mouth Shakiness Dizziness Weakness Trouble breathing Breathing fast (hyperventilating) Chest pressure Sweating Headache Nausea Diarrhea Tiredness Inability to sleep Sexual problems Home care Try to locate the sources of stress in your life. They may not be obvious. These may include: oDaily hassles of life (such as traffic jams, missed appointments, or car troubles) oMajor life changes, both good (new baby or job promotion) and bad (loss of job or loss of loved one) oOverload: feeling that you have too many responsibilities and can't take care of all of them at once oFeeling helpless or feeling that your problems are beyond what you re able to solve Notice how your body reacts to stress. Learn to listen to your body signals. This will help you take action before the stress becomes severe. When you can, do something about the source of your stress. (Avoid hassles, limit the amount of change that happens in your life at one time and take a break when you feel overloaded). Unfortunately, many stressful situations can't be avoided. It is necessary to learn how to better manage stress. There are many proven methods that will reduce your anxiety. These include simple things like exercise, good nutrition, and adequate rest. Also, there are certain techniques that are helpful: oRelaxation oBreathing exercises oVisualization oBiofeedback oMeditation For more information about this, consult your healthcare provider or go to a local bookstore and review the many books and tapes available on this subject. Follow-up care If you feel that your anxiety is not responding to self-help measures, contact your healthcare provider or make an appointment with a counselor. You may need short-term psychological counseling and temporary medicine to help you manage stress. Call 911 Call 911 if any of these happen: Trouble breathing Confusion Drowsiness or trouble wakening Fainting or loss of consciousness Rapid heart rate Seizure New chest pain that becomes more severe, lasts longer, or spreads into your shoulder, arm, neck, jaw, or back When to seek medical advice Call your healthcare provider right away if any of these happen: Your symptoms get worse Severe headache not relieved by rest and mild pain reliever [phone] [employer]. [address] [place] [address]. All rights reserved. This information is not intended as a substitute for professional medical care. Always follow your healthcare professional's instructions. Additional Information VACCINATE! IT SAVES LIVES! Members of the community who have not yet received the COVID-19 vaccine and would like to receive it can visit one of [facility] vaccine clinics. There are many vaccine clinic locations within the [facility]. For locations and available times, please visit [email or web address] It is important to note that some COVID mobile vaccine clinics are held outdoors and may be canceled in rainy or stormy conditions. To learn more about pediatric vaccinations (ages 5-11), we invite you to visit the [facility] webpage. [email or web address] [email or web address] [email or web address] To learn more about the COVID-19 vaccine, we invite you to visit the CDC website for a list of frequently asked questions. https://www.cdc.gov/coronavirus/ 2019-ncov/vaccines/faq.html [facility] Patient Portal Access Instructions: Stay connected with your healthcare team and access your personal medical information anytime with the [facility] Patient Portal. If you would like a full copy of your medical records please contact the [facility] Medical Records Department Sunday through Sunday between 8a.m. and 4:30p.m. Please follow the directions below to access the portal: 1.Access the email account you provided upon registration to the [facility].2.Look for an invitation email from [facility].3.Open the email and access the invitation link: Accept Invitation to [employer].Fill in the required arteaga to create your account. Sign into [email or web address] with your username and password that you [...] you will allow to register on the [employer] Patient Portal for access to your information. You can also access the [employer] Patient Portal on the [employer]. Simply click on Health Records under Health Data and then click on the [employer] logo. HOW TO SAFELY DISPOSE OF PRESCRIPTION [...] Call your local pharmacy or go to [email or web address] to find one close to you.3.Make use of household items: Use cat litter or old coffee grounds to dispose medications if other options are not available. Mix your drugs with these household products, seal them in an airtight container and throw it into the garbage. Call [facility]: [phone] to be sure your drugs can be [...] a CHART COPY Signatures Patient Education Materials Anxiety Reaction Medication Leaflets My discharge plan and instructions have been reviewed and explained to me and I,ROBERT SANDIE Yves understand my current condition and have read and understand these discharge instructions. I have received a written copy of the plan/instructions. If I have questions, I am aware that I should contact my doctor. 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 Please address in AG absence. Requested Prescriptions Pending Prescriptions Disp Refills medroxyPROGESTERone (DEPO-PROVERA) 150 mg/mL 1 mL 3 Sig: Inject 1 mL intramuscularly every 12 weeks. Marissa Givens RN [facility] 05-30-2024 Miscellaneous Notes Last OV 11/22/2023. Please address in AG absence. Requested Prescriptions Pending Prescriptions Disp Refills medroxyPROGESTERone (DEPO-PROVERA) 150 mg/mL 1 mL 3 Sig: Inject 1 mL intramuscularly every 12 weeks. Marissa Givens RN documented in this encounter [facility] 05-30-2024 Telephone encounter Note Last OV 11/22/2023. Please address in AG absence. Requested Prescriptions Pending Prescriptions Disp Refills valACYclovir (VALTREX) 500 mg tablet 90 tablet 0 Sig: Take 1 tablet by mouth once daily. Marissa Givens RN [facility] 05-30-2024 Miscellaneous Notes Last OV 11/22/2023. Please address in AG absence. Requested Prescriptions Pending Prescriptions Disp Refills valACYclovir (VALTREX) 500 mg tablet 90 tablet 0 Sig: Take 1 tablet by mouth once daily. Marissa Givens RN documented in this encounter [facility] 02-14-2024 Telephone encounter Note Order filed. Yaquelin Gaston APRN.ANNE [facility] 02-14-2024 Miscellaneous Notes Order filed. Yaquelin Gaston APRN.GRAPE CRUSHER Can you please file depo CAM order for nurse visit today. Claudia Woodall RN documented in this encounter [facility] 02-14-2024 Telephone encounter Note Can you please file depo CAM order for nurse visit today. Claudia Woodall RN [facility] 11-22-2023 Nurse Note The patient is here for an injection of Depoprovera. Dose: 150 mg Route: Intramuscular Site: left upper quadrant gluteus Customer Experience Manager: prasco Lot: [id number] Expiration Date: 12/04/2026 The date due for the next injection is in 12 weeks Radha Eli LPN [facility] 11-22-2023 Nurse Note The patient is here for an injection of Depoprovera. Dose: 150 mg Route: Intramuscular Site: left upper quadrant gluteus Customer Experience Manager: prasco Lot: [id number] Expiration Date: 12/04/2026 The date due for the next injection is in 12 weeks Radha Eli LPN documented in this encounter [facility] 11-22-2023 Note HNO ID: [id number] Author: PRATIMA KAT MD Service: ? Author Type: Physician Type: Progress Notes Filed: 11/22/2023 14:12 Note Text: Burglar Alarm Superintendent offered: Patient declines. Sandie is a 33 year old who presents for an annual gynecologic exam without complaints. Very anxious today. Mom just diagnosed with lung cancer and is now on the way to the hospital with complications from a procedure. Wants to continue with depo. Menses: none with depo. Contraception: Depo Provera HPV vaccine: No Last Pap: 12/17/2019 normal HPV: 12/16/2019 negative History of abnormal pap: No Last mammogram: never Sexually active: Yes OB History T1 L1 SAB0 IAB0 Ectopic0 Multiple0 Live Births1 Facilities Coordinator History LMP: 06/15/2023 (Approximate), Drug Induced Amenorrhea Age at Menarche: Age at First : Age at Menopause: Facilities Coordinator History Comments: Sexual Activity: Yes; Male Contraception: [...] HISTORY Social History Tobacco Use Smoking status: Every Day Packs/day: 0.25 Years: 15.00 Additional pack years: 0.00 Total pack years: 3.75 Types: Cigarettes Smokeless tobacco: Never Tobacco comments: 3-4 Cigs daily Vaping Use Vaping Use: current everyday user Substances: Nicotine, THC Devices: Disposable Substance Use Topics Alcohol use: Yes Comment: Seldom Drug use: Yes Types: Marijuana Comment: Smoking, couple times a day REVIEW OF SYSTEMS Abdomen: No abdominal pain, nausea, vomiting, diarrhea, or constipation. No bloating, early satiety, indigestion, or increased flatulence. Bladder: No dysuria, gross hematuria, urinary frequency, urinary urgency, or incontinence. Breast: No breast lumps, nipple d/c, overlying skin changes, redness or skin retraction. Allergies and current medication updated:Yes EXAM: BP 110/70 Ht 5' 6 (1.68m) Wt 194 lb (88.0kg) LMP 06/15/2023 BMI 31.33 kg/(m2). GENERAL: emotional, female in no apparent distress HEENT: Normocephalic, atraumatic, mucus membranes moist, and no lesions NECK: Supple, full range of motion, no adenopathy, and thyroid normal DERMATOLOGY: Normal, without lesions, non-icteric, and non-hirsute BREAST: soft, non-tender, symmetric, no dominant mass, normal nipple-areolar complex, no lymphadenopathy, and no nipple discharge CHEST: Normal inspiratory effort ABDOMEN: soft, non-tender, and no masses PELVIC: external genitalia normal, normal Bartholin's glands, urethra, Colusa's glands, no vulvar lesions, no cervical lesions, good vaginal support, physiologic discharge present, normal appearing perineal body and perianal region BIMANUAL: uterus normal size, shape and consistency, no adnexal masses, and non-tender RECTOVAGINAL: deferred. NEURO: alert and oriented x3,exam grossly non-focal EXTREMITIES: normal ASSESSMENT/PLAN: 1) Health maintenance: Pap done with HPV. 2) Contraception: Depo Provera. Contraceptive options reviewed and information provided. 3) STD screening: Accepted STD check for Gonorrhea and Chlamydia. 4) Follow up one year or sooner as needed Pratima Kat MD [facility] 11-22-2023 History of Present illness Narrative Burglar Alarm Superintendent offered: Patient declines. Sandie is a 33 year old who presents for an annual gynecologic exam without complaints. Very anxious today. Mom just diagnosed with lung cancer and is now on the way to the hospital with complications from a procedure. Wants to continue with depo. Menses: none with depo. Contraception: Depo Provera HPV vaccine: No Last Pap: 12/17/2019 normal HPV: 12/16/2019 negative History of abnormal pap: No Last mammogram: never Sexually active: Yes OB History T1 L1 SAB0 IAB0 Ectopic0 Multiple0 Live Births1 Facilities Coordinator History LMP: 06/15/2023 (Approximate), Drug Induced Amenorrhea Age at Menarche: Age at First : Age at Menopause: Facilities Coordinator History Comments: Sexual Activity: Yes; Male Contraception: [...] HISTORY Social History Tobacco Use Smoking status: Every Day Packs/day: 0.25 Years: 15.00 Additional pack years: 0.00 Total pack years: 3.75 Types: Cigarettes Smokeless tobacco: Never Tobacco comments: 3-4 Cigs daily Vaping Use Vaping Use: current everyday user Substances: Nicotine, THC Devices: Disposable Substance Use Topics Alcohol use: Yes Comment: Seldom Drug use: Yes Types: Marijuana Comment: Smoking, couple times a day REVIEW OF SYSTEMS Abdomen: No abdominal pain, nausea, vomiting, diarrhea, or constipation. No bloating, early satiety, indigestion, or increased flatulence. Bladder: No dysuria, gross hematuria, urinary frequency, urinary urgency, or incontinence. Breast: No breast lumps, nipple d/c, overlying skin changes, redness or skin retraction. Allergies and current medication updated:Yes EXAM: BP 110/70 Ht 5' 6 (1.68m) Wt 194 lb (88.0kg) LMP 06/15/2023 BMI 31.33 kg/(m^2). GENERAL: emotional, female in no apparent distress HEENT: Normocephalic, atraumatic, mucus membranes moist, and no lesions NECK: Supple, full range of motion, no adenopathy, and thyroid normal DERMATOLOGY: Normal, without lesions, non-icteric, and non-hirsute BREAST: soft, non-tender, symmetric, no dominant mass, normal nipple-areolar complex, no lymphadenopathy, and no nipple discharge CHEST: Normal inspiratory effort ABDOMEN: soft, non-tender, and no masses PELVIC: external genitalia normal, normal Bartholin's glands, urethra, Colusa's glands, no vulvar lesions, no cervical lesions, good vaginal support, physiologic discharge present, normal appearing perineal body and perianal region BIMANUAL: uterus normal size, shape and consistency, no adnexal masses, and non-tender RECTOVAGINAL: deferred. NEURO: alert and oriented x3,exam grossly non-focal EXTREMITIES: normal ASSESSMENT/PLAN: 1) Health maintenance: Pap done with HPV. 2) Contraception: Depo Provera. Contraceptive options reviewed and information provided. 3) STD screening: Accepted STD check for Gonorrhea and Chlamydia. 4) Follow up one year or sooner as needed Pratima Kat MD documented in this encounter [facility] 11-20-2023 Note . MICRO - Microbiology PROCEDURE: Urine Culture [O1 *1] SOURCE: Urine BODY SITE: COLLECTED DATE/TIME: 11/19/2023 16:26 EDT RECEIVED DATE/TIME: 11/19/2023 18:47 EDT START DATE/TIME: 11/19/2023 18:47 EDT FREE TEXT SOURCE: FINAL REPORTS Final Report [] Verified Date/Time/Personnel: 11/20/2023 13:54 EDT 50,000 - 100,000 cfu/ml Mixed growth consistent with normal urogenital josé miguel. Order Comments O1: Urine Culture Added by Discern Performing Locations *1: This test was performed at: [facility], [address] [place] [address], [id number] , [facility] ([place] 11-19-2023 Hospital Discharge instructions Patient Education 11/19/2023 17:02:18 Abdominal Pain Abdominal Pain Abdominal pain is pain in the stomach or belly area. Everyone has this pain from time to time. In many cases it goes away on its own. But abdominal pain can sometimes be due to a serious problem, such as appendicitis. So it s important to know when to get help. Causes of abdominal pain There are many possible causes of abdominal pain. Common causes in adults include: Constipation, diarrhea, or gas Stomach acid flowing back up into the esophagus (acid reflux or heartburn) Severe acid reflux, called GERD (gastroesophageal reflux disease) A sore in the lining of the stomach or small intestine (peptic ulcer) Inflammation of the gallbladder, liver, or pancreas Gallstones or kidney stones Appendicitis Intestinal blockage An internal organ pushing through a muscle or other tissue (hernia) Urinary tract infections In women, menstrual cramps, fibroids, ovarian cysts, pelvic inflammatory disease, or endometriosis Inflammation or infection of the intestines, including Crohn's disease and ulcerative colitis Irritable bowel syndrome Diagnosing the cause of abdominal pain Your healthcare provider will give you a physical exam help find the cause of your pain. If needed, you will have tests. Belly pain has many possible causes. So it can be hard to find the reason for your pain. Giving details about your pain can help. Tell your provider where and when you feel the pain, and what makes it better or worse. Also let your provider know if you have other symptoms such as: Fever Tiredness Upset stomach (nausea) Vomiting Changes in bathroom habits Blood in the stool or black, tarry stool Weight loss that you can't explain (involuntary weight loss?) Also report any family history of stomach or intestinal problems, or cancers. Tell your provider about all your alcohol use and drug use. Tell your provider about all medicines you use, including herbs, vitamins, and supplements. Treating abdominal pain Some causes of pain need emergency medical treatment right away. These include appendicitis or a bowel blockage. Other problems can be treated with rest, fluids, or medicines. Your healthcare provider can give you specific instructions for treatment or self-care based on what is causing your pain. If you have vomiting or diarrhea, sip water or other clear fluids. When you are ready to eat solid foods again, start with small amounts of idje-wj-gvmegw, low-fat foods. These include apple sauce, toast, or crackers. When to get medical care Call 911 or go to the hospital right away if you: Can t pass stool and are vomiting Are vomiting blood or have bloody diarrhea or black, tarry diarrhea Have chest, neck, or shoulder pain Feel like you might pass out Have pain in your shoulder blades with nausea Have sudden, severe belly pain Have new, severe pain unlike any you have felt before Have a belly that is rigid, hard, and hurts to touch Call your healthcare provider if you have: Pain for more than 5 days Bloating for more than 2 days Diarrhea for more than 5 days A fever of 100.4 F (38 C) or higher, or as directed by your healthcare provider Pain that gets worse Weight loss for no reason Continued lack of appetite Blood in your stool How to prevent abdominal pain Here are some tips to help prevent abdominal pain: Eat smaller amounts of food at each meal. Don't eat greasy, fried, or other high-fat foods. Don't eat foods that give you gas. Exercise regularly. Drink plenty of fluids. To help prevent GERD symptoms: Quit smoking. Reduce alcohol and foods that increase stomach acid. Don't use aspirin or site-guf-urksncc pain and fever medicines, if possible. This includes nonsteroidal anti-inflammatory drugs (NSAIDs). Lose excess weight. Finish eating at least 2 hours before you go to bed or lie down. Raise the head of your bed. [id number] The [employer]. [address] [place] [address], [place] [address]. All rights reserved. This information is not intended as a substitute for professional medical care. Always follow your healthcare professional's instructions. 11/19/2023 17:02:05 Bladder Infection, Female (Adult) Bladder Infection, Female (Adult) Urine is normally doesn't have any bacteria in it. But bacteria can get into the urinary tract from the skin around the rectum. Or they can travel in the blood from elsewhere in the body. Once they are in your urinary tract, they can cause infection in the urethra (urethritis), the bladder (cystitis), or the kidneys (pyelonephritis). The most common place for an infection is in the bladder. This is called a bladder infection. This is one of the most common infections in women. Most bladder infections are easily treated. They are not serious unless the infection spreads to the kidney. The phrases bladder infection, UTI, and cystitis are often used to describe the same thing. But they are not always the same. Cystitis is an inflammation of the bladder. The most common cause of cystitis is an infection. Symptoms The infection causes inflammation in the urethra and bladder. This causes many of the symptoms. The most common symptoms of a bladder infection are: Pain or burning when urinating Having to urinate more often than usual Urgent need to urinate Only a small amount of urine comes out Blood in urine Abdominal discomfort. This is usually in the lower abdomen above the pubic bone. Cloudy urine Strong- or bad-smelling urine Unable to urinate (urinary retention) Unable to hold urine in (urinary incontinence) Fever Loss of appetite Confusion (in older adults) Causes Bladder infections are not contagious. You can't get one from someone else, from a toilet seat, or from sharing a bath. The most common cause of bladder infections is bacteria from the bowels. The bacteria get onto the skin around the opening of the urethra. From there, they can get into the urine and travel up to the bladder, causing inflammation and infection. This usually happens because of: Wiping improperly after urinating. Always wipe from front to back. Bowel incontinence Procedures such as having a catheter inserted Older age Not emptying your bladder. This can allow bacteria a chance to grow in your urine. Dehydration Constipation Sex Use of a diaphragm for control Treatment Bladder infections are diagnosed by a urine test. They are treated with antibiotics and usually clear up quickly without complications. Treatment helps prevent a more serious kidney infection. Medicines Medicines can help in the treatment of a bladder infection: Take antibiotics until they are used up, even if you feel better. It is important to finish them to make sure the infection has cleared. You can use acetaminophen or ibuprofen for pain, fever, or discomfort, unless another medicine was prescribed. If you have chronic liver or kidney disease, talk with your healthcare provider before using these medicines. Also talk with your provider if you've ever had a stomach ulcer or gastrointestinal bleeding, or are taking blood-thinner medicines. If you are given phenazopydridine to reduce burning with urination, it will cause your urine to become a bright orange color. This can stain clothing. Care and prevention These self-care steps can help prevent future infections: Drink plenty of fluids to prevent dehydration and flush out your bladder. Do this unless you must restrict fluids for other health reasons, or your doctor told you not to. Proper cleaning after going to the bathroom is important. Wipe from front to back after using the toilet to prevent the spread of bacteria. Urinate more often. Don't try to hold urine in for a long time. Wear loose-fitting clothes and cotton underwear. Avoid tight-fitting pants. Improve your diet and prevent constipation. Eat more fresh fruit and vegetables, and fiber, and less junk and fatty foods. Avoid sex until your symptoms are gone. Avoid caffeine, alcohol, and spicy foods. These can irritate your bladder. Urinate right after intercourse to flush out your bladder. If you use control pills and have frequent bladder infections, discuss it with your doctor. Follow-up care Call your healthcare provider if all symptoms are not gone after 3 days of treatment. This is especially important if you have repeat infections. If a culture was done, you will be told if your treatment needs to be changed. If directed, you can call to find out the results. If X-rays were done, you will be told if the results will affect your treatment. Call 911 Call 911 if any of the following occur: Trouble breathing Hard to wake up or confusion Fainting or loss of consciousness Rapid heart rate When to seek medical advice Call your healthcare provider right away if any of these occur: Fever of 100.4 F (38.0 C) or higher, or as directed by your healthcare provider Symptoms are not better by the third day of treatment Back or belly (abdominal) pain that gets worse Repeated vomiting, or unable to keep medicine down Weakness or dizziness Vaginal discharge Pain, redness, or swelling in the outer vaginal area (labia) [id number] [employer]. [address] [place] [address], [place] [address]. All rights reserved. This information is not intended as a substitute for professional medical care. Always follow your healthcare professional's instructions. Follow Up Care 11/19/2023 15:38:59 With:ROSA KEMP MD Address: [address] [place] [address] [place] [address]- [phone] When:2-4 days [facility] 11-19-2023 Note Discharge Instructions Thank you for allowing [facility] to assist you with your healthcare needs. The following is important discharge information regarding your hospital visit. What to Do Next Instructions from Your Care Team No qualifying data available. Post Acute Orders No qualifying data available. You Need to Schedule the Following Appointments Follow Up with ROSA KEMP MD When:Within 2-4 days Where:[facility] [place] [address] [phone] Allergies naproxen Nausea Medications Please ask your primary doctor or pharmacist before taking any other medication not listed, including over the counter drugs, herbal medications, vitamins and or supplements as they may interact with your home medications. What How Much When Instructions Last Dose New cephalexin (cephalexin 500 mg oral capsule) 1 cap by mouth Two (2) times a day Duration: 7 Days Printed Prescription Unchanged acyclovir (acyclovir 400 mg oral tablet) Unchanged amLODIPine (amLODIPine 5 mg oral tablet) 1 tab(s) by mouth Once a day Unchanged atomoxetine (atomoxetine 80 mg oral capsule) 1 cap by mouth Once a day (in the morning) Unchanged buPROPion (buPROPion 150 mg/ 24 hours (XL) oral tablet, extended release) Unchanged cariprazine (Vraylar 3 mg oral capsule) 1 cap by mouth Once a day Unchanged famotidine (Pepcid 20 mg oral tablet) 1 tab(s) by mouth Two (2) times a day Duration: 7 Days Unchanged FLUoxetine (FLUoxetine 40 mg oral capsule) Unchanged gabapentin (gabapentin 400 mg oral capsule) Unchanged hydrOXYzine (hydrOXYzine pamoate 25 mg oral capsule) Unchanged lamoTRIgine (lamoTRIgine 100 mg oral tablet) Unchanged lamoTRIgine (lamoTRIgine 150 mg oral tablet) Unchanged LORazepam (LORazepam 0.5 mg oral tablet) Unchanged OXcarbazepine (OXcarbazepine 600 mg oral tablet) Unchanged risperiDONE (risperiDONE 2 mg oral tablet) Unchanged risperiDONE (risperiDONE 2 mg oral tablet) Unchanged SUMAtriptan (SUMAtriptan 25 mg oral tablet) Unchanged valACYclovir (valACYclovir 500 mg oral tablet) 1 tab(s) by mouth Once a day Please take this list to your next doctor s visit. Bring all medications you take, including over the counter medications, herbals and other supplements with you to your doctor s visit. Patients and families are reminded to discard old lists and to update any records with all medication providers or retail pharmacies. Medication Leaflets cephalexin (sef a KAREN in) What is the most important information I should know about cephalexin? You should not use this medicine if you are allergic to cephalexin or to similar antibiotics, such as Ceftin, Cefzil, Omnicef, and others. Tell your doctor if you are allergic to any drugs, especially penicillins or other antibiotics. What is cephalexin? Cephalexin is a cephalosporin (SEF a low spor in) antibiotic that is used to treat bacterial infections of the lungs, ear, skin, bones, bladder, and kidneys. Cephalexin is used to treat infections in adults and children who are at least 1 year old. Cephalexin may also be used for purposes not listed in this medication guide. What should I discuss with my healthcare provider before taking cephalexin? You should not use this medicine if you are allergic to cephalexin or any other cephalosporin antibiotic (cefdinir, cefadroxil, cefoxitin, cefprozil, ceftriaxone, cefuroxime, Omnicef, and others). Tell your doctor if you have ever had: an allergy to any drug (especially penicillin); liver or kidney disease; or intestinal problems, such as colitis. The liquid form of cephalexin may contain sugar. This may affect you if you have diabetes. Tell your doctor if you are or breast-feeding. How should I take cephalexin? Follow all directions on your prescription label and read all medication guides or instruction sheets. Use the medicine exactly as directed. Do not use cephalexin to treat any condition that has not been checked by your doctor. Measure liquid medicine carefully. Use the dosing syringe provided, or use a medicine dose-measuring device (not a kitchen spoon). Use this medicine for the full prescribed length of time, even if your symptoms quickly improve. Skipping doses can increase your risk of infection that is resistant to medication. Cephalexin will not treat a viral infection such as the flu or a common cold. Do not share cephalexin with another person, even if they have the same symptoms you have. This medicine can affect the results of certain medical tests. Tell any doctor who treats you that you are using cephalexin. Store the tablets and capsules at room temperature away from moisture, heat, and light. Store the liquid medicine in the refrigerator. Throw away any unused liquid after 14 days. What happens if I miss a dose? Take the medicine as soon as you can, but skip the missed dose if it is almost time for your next dose. Do not take two doses at one time. What happens if I overdose? Seek emergency medical attention or call the Poison Help line at . Overdose symptoms may include nausea, vomiting, stomach pain, diarrhea, and blood in your urine. What should I avoid while taking cephalexin? Antibiotic medicines can cause diarrhea, which may be a sign of a new infection. If you have diarrhea that is watery or bloody, call your doctor before using anti-diarrhea medicine. What are the possible side effects of cephalexin? Get emergency medical help if you have signs of an allergic reaction (hives, difficult breathing, swelling in your face or throat) or a severe skin reaction (fever, sore throat, burning eyes, skin pain, red or purple skin rash with blistering and peeling). Call your doctor at once if you have: severe stomach pain, diarrhea that is watery or bloody (even if it occurs months after your last dose); unusual tiredness, feeling light-headed or short of breath; easy bruising, unusual bleeding, purple or red spots under your skin; a seizure; pale skin, cold hands and feet; yellowed skin, dark colored urine; fever, weakness; or pain in your side or lower back, painful urination. Common side effects may include: diarrhea; nausea, vomiting; indigestion, stomach pain; or vaginal itching or discharge. This is not a complete list of side effects and others may occur. Call your doctor for medical advice about side effects. You may report side effects to FDA at 8-321-UVJ-7730. What other drugs will affect cephalexin? Tell your doctor about all your other medicines, especially: metformin; or probenecid. This list is not complete. Other drugs may affect cephalexin, including prescription and dbnn-hhn-zxoqwok medicines, vitamins, and herbal products. Not all possible drug interactions are listed here. Where can I get more information? Your pharmacist can provide more information about cephalexin. Remember, keep this and all other medicines out of the reach of children, never share your medicines with others, and use this medication only for the indication prescribed. Every effort has been made to ensure that the information provided by [employer]. ('[employer]') is accurate, up-to-date, and complete, but no guarantee is made to that effect. Drug information contained herein may be time sensitive. [employer] information has been compiled for use by healthcare practitioners and consumers in the [place] and therefore [employer] does not warrant that uses outside of the [place] are appropriate, unless specifically indicated otherwise. [employer] drug information does not endorse drugs, diagnose patients or recommend therapy. [employer] drug information is an informational resource designed [...] effective or appropriate for any given patient. [employer] does not assume any responsibility for any aspect of healthcare administered with the aid of information [employer] provides. The information contained herein is not intended to cover all possible uses, directions, precautions, warnings, drug interactions, allergic reactions, or adverse effects. If you have questions about the drugs you are taking, check with your doctor, nurse or pharmacist. Copyright 0358-9146 [employer]. Version: 12.. Revision Date: 12/06/2022. Education Materials Abdominal Pain Abdominal pain is pain in the stomach or belly area. Everyone has this pain from time to time. In many cases it goes away on its own. But abdominal pain can sometimes be due to a serious problem, such as appendicitis. So it s important to know when to get help. Causes of abdominal pain There are many possible causes of abdominal pain. Common causes in adults include: Constipation, diarrhea, or gas Stomach acid flowing back up into the esophagus (acid reflux or heartburn) Severe acid reflux, called GERD (gastroesophageal reflux disease) A sore in the lining of the stomach or small intestine (peptic ulcer) Inflammation of the gallbladder, liver, or pancreas Gallstones or kidney stones Appendicitis Intestinal blockage An internal organ pushing through a muscle or other tissue (hernia) Urinary tract infections In women, menstrual cramps, fibroids, ovarian cysts, pelvic inflammatory disease, or endometriosis Inflammation or infection of the intestines, including Crohn's disease and ulcerative colitis Irritable bowel syndrome Diagnosing the cause of abdominal pain Your healthcare provider will give you a physical exam help find the cause of your pain. If needed, you will have tests. Belly pain has many possible causes. So it can be hard to find the reason for your pain. Giving details about your pain can help. Tell your provider where and when you feel the pain, and what makes it better or worse. Also let your provider know if you have other symptoms such as: Fever Tiredness Upset stomach (nausea) Vomiting Changes in bathroom habits Blood in the stool or black, tarry stool Weight loss that you can't explain (involuntary weight loss?) Also report any family history of stomach or intestinal problems, or cancers. Tell your provider about all your alcohol use and drug use. Tell your provider about all medicines you use, including herbs, vitamins, and supplements. Treating abdominal pain Some causes of pain need emergency medical treatment right away. These include appendicitis or a bowel blockage. Other problems can be treated with rest, fluids, or medicines. Your healthcare provider can give you specific instructions for treatment or self-care based on what is causing your pain. If you have vomiting or diarrhea, sip water or other clear fluids. When you are ready to eat solid foods again, start with small amounts of ncti-lv-hkzjkt, low-fat foods. These include apple sauce, toast, or crackers. When to get medical care Call 911 or go to the hospital right away if you: Can t pass stool and are vomiting Are vomiting blood or have bloody diarrhea or black, tarry diarrhea Have chest, neck, or shoulder pain Feel like you might pass out Have pain in your shoulder blades with nausea Have sudden, severe belly pain Have new, severe pain unlike any you have felt before Have a belly that is rigid, hard, and hurts to touch Call your healthcare provider if you have: Pain for more than 5 days Bloating for more than 2 days Diarrhea for more than 5 days A fever of 100.4 F (38 C) or higher, or as directed by your healthcare provider Pain that gets worse Weight loss for no reason Continued lack of appetite Blood in your stool How to prevent abdominal pain Here are some tips to help prevent abdominal pain: Eat smaller amounts of food at each meal. Don't eat greasy, fried, or other high-fat foods. Don't eat foods that give you gas. Exercise regularly. Drink plenty of fluids. To help prevent GERD symptoms: Quit smoking. Reduce alcohol and foods that increase stomach acid. Don't use aspirin or jrqh-pxd-hqjxxuu pain and fever medicines, if possible. This includes nonsteroidal anti-inflammatory drugs (NSAIDs). Lose excess weight. Finish eating at least 2 hours before you go to bed or lie down. Raise the head of your bed. 6118-8213 [employer]. [address] [place] [address]. All rights reserved. This information is not intended as a substitute for professional medical care. Always follow your healthcare professional's instructions. Bladder Infection, Female (Adult) Urine is normally doesn't have any bacteria in it. But bacteria can get into the urinary tract from the skin around the rectum. Or they can travel in the blood from elsewhere in the body. Once they are in your urinary tract, they can cause infection in the urethra (urethritis), the bladder (cystitis), or the kidneys (pyelonephritis). The most common place for an infection is in the bladder. This is called a bladder infection. This is one of the most common infections in women. Most bladder infections are easily treated. They are not serious unless the infection spreads to the kidney. The phrases bladder infection, UTI, and cystitis are often used to describe the same thing. But they are not always the same. Cystitis is an inflammation of the bladder. The most common cause of cystitis is an infection. Symptoms The infection causes inflammation in the urethra and bladder. This causes many of the symptoms. The most common symptoms of a bladder infection are: Pain or burning when urinating Having to urinate more often than usual Urgent need to urinate Only a small amount of urine comes out Blood in urine Abdominal discomfort. This is usually in the lower abdomen above the pubic bone. Cloudy urine Strong- or bad-smelling urine Unable to urinate (urinary retention) Unable to hold urine in (urinary incontinence) Fever Loss of appetite Confusion (in older adults) Causes Bladder infections are not contagious. You can't get one from someone else, from a toilet seat, or from sharing a bath. The most common cause of bladder infections is bacteria from the bowels. The bacteria get onto the skin around the opening of the urethra. From there, they can get into the urine and travel up to the bladder, causing inflammation and infection. This usually happens because of: Wiping improperly after urinating. Always wipe from front to back. Bowel incontinence Procedures such as having a catheter inserted Older age Not emptying your bladder. This can allow bacteria a chance to grow in your urine. Dehydration Constipation Sex Use of a diaphragm for control Treatment Bladder infections are diagnosed by a urine test. They are treated with antibiotics and usually clear up quickly without complications. Treatment helps prevent a more serious kidney infection. Medicines Medicines can help in the treatment of a bladder infection: Take antibiotics until they are used up, even if you feel better. It is important to finish them to make sure the infection has cleared. You can use acetaminophen or ibuprofen for pain, fever, or discomfort, unless another medicine was prescribed. If you have chronic liver or kidney disease, talk with your healthcare provider before using these medicines. Also talk with your provider if you've ever had a stomach ulcer or gastrointestinal bleeding, or are taking blood-thinner medicines. If you are given phenazopydridine to reduce burning with urination, it will cause your urine to become a bright orange color. This can stain clothing. Care and prevention These self-care steps can help prevent future infections: Drink plenty of fluids to prevent dehydration and flush out your bladder. Do this unless you must restrict fluids for other health reasons, or your doctor told you not to. Proper cleaning after going to the bathroom is important. Wipe from front to back after using the toilet to prevent the spread of bacteria. Urinate more often. Don't try to hold urine in for a long time. Wear loose-fitting clothes and cotton underwear. Avoid tight-fitting pants. Improve your diet and prevent constipation. Eat more fresh fruit and vegetables, and fiber, and less junk and fatty foods. Avoid sex until your symptoms are gone. Avoid caffeine, alcohol, and spicy foods. These can irritate your bladder. Urinate right after intercourse to flush out your bladder. If you use control pills and have frequent bladder infections, discuss it with your doctor. Follow-up care Call your healthcare provider if all symptoms are not gone after 3 days of treatment. This is especially important if you have repeat infections. If a culture was done, you will be told if your treatment needs to be changed. If directed, you can call to find out the results. If X-rays were done, you will be told if the results will affect your treatment. Call 911 Call 911 if any of the following occur: Trouble breathing Hard to wake up or confusion Fainting or loss of consciousness Rapid heart rate When to seek medical advice Call your healthcare provider right away if any of these occur: Fever of 100.4 F (38.0 C) or higher, or as directed by your healthcare provider Symptoms are not better by the third day of treatment Back or belly (abdominal) pain that gets worse Repeated vomiting, or unable to keep medicine down Weakness or dizziness Vaginal discharge Pain, redness, or swelling in the outer vaginal area (labia) 0163-1360 [employer]. [address] [place] [address]. All rights reserved. This information is not intended as a substitute for professional medical care. Always follow your healthcare professional's instructions. Additional Information VACCINATE! IT SAVES LIVES! Members of the community who have not yet received the COVID-19 vaccine and would like to receive it can visit one of [facility] vaccine clinics. There are many vaccine clinic locations within the [facility]. For locations and available times, please visit [email or web address] It is important to note that some COVID mobile vaccine clinics are held outdoors and may be canceled in rainy or stormy conditions. To learn more about pediatric vaccinations (ages 5-11), we invite you to visit the [facility] webpage. https://www.[email or web address].org/p ages/7933-Hitph-Gmpmwptgyfq-Freq ykfgfn-Exuax-Xjdejiiji.html To learn more about the COVID-19 vaccine, we invite you to visit the CDC website for a list of frequently asked questions. https://www.cdc.gov/coronavirus/ 2019-ncov/vaccines/faq.html [facility] [employer] [facility] Patient Portal Access Instructions: Stay connected with your healthcare team and access your personal medical information anytime with the [facility] Patient Portal. If you would like a full copy of your medical records please contact the [facility] Medical Records Department Sunday through Sunday between 8a.m. and 4:30p.m. Please follow the directions below to access the portal: 1.Access the email account you provided upon registration to the [facility].2.Look for an invitation email from [facility].3.Open the email and access the invitation link: Accept Invitation to [facility]4.Fill in the required arteaga to create your account. Sign into [email or web address] with your username and password that you [...] you will allow to register on the [facility] Patient Portal for access to your information. You can also access the [facility] Patient Portal on the [facility] nat. Simply click on Health Records under Health Data and then click on the [employer] logo. HOW TO SAFELY DISPOSE OF PRESCRIPTION [...] Call your local pharmacy or go to http://bit.[employer]/9I2Oz9k to find one close to you.3.Make use of household items: Use cat litter or old coffee grounds to dispose medications if other options are not available. Mix your drugs with these household products, seal them in an airtight container and throw it into the garbage. Call [facility]: [phone] to be sure your drugs can be [...] a CHART COPY Signatures Patient Education Materials Abdominal Pain Bladder Infection, Female (Adult) Medication Leaflets cephalexin My discharge plan and instructions have been reviewed and explained to me and I,SANDIE BECERRIL understand my current condition and have read and understand these discharge instructions. I have received a written copy of the plan/instructions. If I have questions, I am aware that I should contact my doctor. 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 Patient is due for annual. Has upcoming nurse visit for Depo. Will have patient schedule her annual exam at that time. RX pending. Requested Prescriptions Pending Prescriptions Disp Refills valACYclovir (VALTREX) 500 mg tablet 90 tablet 0 Sig: Take 1 tablet by mouth once daily. Pratima Carmona, RN [facility] 11-13-2023 Miscellaneous Notes Pharmacy called requesting RX for Valtrex. Patient is due for annual. Has upcoming nurse visit for Depo. Will have patient schedule her annual exam at that time. RX pending. Requested Prescriptions Pending Prescriptions Disp Refills valACYclovir (VALTREX) 500 mg tablet 90 tablet 0 Sig: Take 1 tablet by mouth once daily. Pratima Carmona, RN documented in this encounter [facility] 10-10-2023 Telephone encounter Note No Show Documentation Sandie Becerril no showed for an appointment on 10/04/2023with Anna Marie Pérez APRN.CNP at 3:30pm. She was scheduled for 2 month follow up. I called and was unable to leave a message as patient's voicemail was full regarding her missed appointment. This is the patients first no show in the last 12 months. Patient was rescheduled for N/A. Letter mailed : Yes Is this the Third or Fourth No Show? Essence Lobato October 10, 2023 11:41 AM [facility] 10-10-2023 Miscellaneous Notes No Show Documentation Sandie Becerril no showed for an appointment on 10/04/2023with Anna Marie Pérez APRN.CNP at 3:30pm. She was scheduled for 2 month follow up. I called and was unable to leave a message as patient's voicemail was full regarding her missed appointment. This is the patients first no show in the last 12 months. Patient was rescheduled for N/A. Letter mailed : Yes Is this the Third or Fourth No Show? Essence Lobato October 10, 2023 11:41 AM documented in this encounter [facility] 09-24-2023 Hospital Discharge instructions Patient Education 09/24/2023 21:25:44 Ankle Sprain (Adult) Ankle Sprain (Adult) An [...] thin towel or cloth. You may use cacm-pwj-awuejcr pain medicine (NSAIDS or nonsteroidal anti-inflammatory drugs) [...] or is irritated You re-injure your ankle [id number] [employer]. [address] [place] [address]. All rights reserved. This information is not intended as a substitute for professional medical care. Always follow your healthcare professional's instructions. Follow Up Care 09/24/2023 18:40:08 With:[facility], Address: When:5 to 7 days only if needed [facility] 09-24-2023 Emergency department Discharge summary Discharge Instructions Thank you for allowing [facility] to assist you with your healthcare needs. The following is important discharge information regarding your hospital visit. Diagnosis from Today's Visit Sprain of right ankle What to Do Next Instructions from Your Care Team Discharge Home Equipment - Ordered -- Splint, Ankle Stirrup Right, 99 month(s), 09/24/23 21:25:00 EDT Post Acute Orders No qualifying data available. You Need to Schedule the Following Appointments Follow Up with [facility], When: When:Within 5 to 7 days, only if needed Allergies naproxen Medications Please ask your primary [...] medication providers or retail pharmacies. Education Materials Ankle Sprain (Adult) An ankle sprain is [...] thin towel or cloth. You may use zjgk-suf-xuudkij pain medicine (NSAIDS or nonsteroidal anti-inflammatory drugs) [...] or is irritated You re-injure your ankle [id number] [employer]. [address] [place] [address]. All rights reserved. This information is not intended as a substitute for professional medical care. Always follow your healthcare professional's instructions. Additional Information VACCINATE! IT SAVES LIVES! Members of the community who have not yet received the COVID-19 vaccine and would like to receive it can visit one of [facility] vaccine clinics. There are many vaccine clinic locations within the [facility]. For locations and available times, please visit [email or web address] It is important to note that some COVID mobile vaccine clinics are held outdoors and may be canceled in rainy or stormy conditions. To learn more about pediatric vaccinations (ages 5-11), we invite you to visit the [facility] webpage. https://www.[email or web address].org/p ages/6858-Rraum-Oapqdftcdqr-Freq lginpo-Pngol-Qairswvqi.html To learn more about the COVID-19 vaccine, we invite you to visit the CDC website for a list of frequently asked questions. https://www.cdc.gov/coronavirus/ 2019-ncov/vaccines/faq.html [facility] Patient Portal Access Instructions: Stay connected with your healthcare team and access your personal medical information anytime with the [facility] Patient Portal. If you would like a full copy of your medical records please contact the [facility] Medical Records Department Sunday through Sunday between 8a.m. and 4:30p.m. Please follow the directions below to access the portal: 1.Access the email account you provided upon registration to the [facility].2.Look for an invitation email from [facility].3.Open the email and access the invitation link: Accept Invitation to [facility].Fill in the required arteaga to create your account. Sign into [email or web address] with your username and password that you [...] you will allow to register on the [facility] Patient Portal for access to your information. You can also access the [facility] Patient Portal on the [employer]. Simply click on Health Records under Health Data and then click on the [employer] logo. HOW TO SAFELY DISPOSE OF PRESCRIPTION [...] Call your local pharmacy or go to http://[employer]/3Y8Tp6d to find one close to you.3.Make use of household items: Use cat litter or old coffee grounds to dispose medications if other options are not available. Mix your drugs with these household products, seal them in an airtight container and throw it into the garbage. Call [facility]: [phone] to be sure your drugs can be [...] a CHART COPY Signatures Patient Education Materials Ankle Sprain (Adult) Medication Leaflets My discharge plan and instructions have been reviewed and explained to me and I,SANDIE BECERRIL understand my current condition and have read and understand these discharge instructions. I have received a written copy of the plan/instructions. If I have questions, I am aware that I should contact my doctor. Patient/Pharmacy Graduate Intern Signature: Date/Time: Relationship to Patient: Witness Name/Signature: Date/Time: [facility] 09-24-2023 Note ORIGINAL EXAMINATION: THREE XRAY VIEWS OF THE LEFT ANKLE 09/24/2023 9:18 pm COMPARISON: Left ankle x-ray 10/10/2021 HISTORY: ORDERING SYSTEM PROVIDED HISTORY: Reason for Exam: pain FINDINGS: Stable well corticated ossicles adjacent to the cuboid bone. No acute fracture or dislocation. No significant degenerative changes. No significant tibiotalar joint effusion. There is mild soft tissue swelling anterior to the ankle joint.. IMPRESSION: No acute osseous abnormality. I have personally reviewed the images of this examination and agree with the resident's findings and interpretation. Interpreted by: Joe Marcelo Preliminary Report By: Flo Ramos Electronically signed By Joe Marcelo Dictated Date: 09/24/2023 9:20:41 PM Prelim Date: 09/24/2023 9:22:16 PM Sign Date: 09/24/2023 9:23:59 PM Ordering Provider: JADE TOMLIN [facility] 08-29-2023 Note HNO ID: [id number] Author: NETTE BROWN RN Service: ? Author Type: Registered Nurse Type: Progress Notes Filed: 08/29/2023 15:45 Note Text: Patient identified by name and date of . Sandie Becerril is here for a Depo Provera injection. Patient brought medication. Date last injected: 06/06/23 Depo-Provera, 150 mg, administered IM right upper quadrant gluteus, Lot # [id number], expiration date 04/05/2025. Depo-Provera was given without incident. Date of last menses: Patient's last menstrual period was 06/15/2023 (approximate). Irregular bleeding - No Menses ceased - Yes STD prevention discussed: Yes Patient instructed to return to clinic in 12 weeks. [email or web address] Provider Enedelia Dumont CNM was present in office at time of injection. Nette Brown RN [facility] 08-29-2023 History of Present illness Narrative Patient identified by name and date of . Sandie Becerril is here for a Depo Provera injection. Patient brought medication. Date last injected: 06/06/23 Depo-Provera, 150 mg, administered IM right upper quadrant gluteus, Lot # [id number], expiration date 04/05/2025. Depo-Provera was given without incident. Date of last menses: Patient's last menstrual period was 06/15/2023 (approximate). Irregular bleeding - No Menses ceased - Yes STD prevention discussed: Yes Patient instructed to return to clinic in 12 weeks. [email or web address] Provider Enedelia Dumont CNM was present in office at time of injection. Nette Brown RN documented in this encounter [facility] 07-13-2023 Instructions Anna Marie Pérez APRN.CNP - 07/13/2023 8:42 AM EST Ice and heat as tolerated Activity as tolerated documented in this encounter [facility] 07-13-2023 History of Present illness Narrative Images from the original note were not included. [facility] Today's Date: 07/13/2023 Name: Sandie Becerril : 1990 Purpose: New Patient Evaluation Chief complaint: joint pain and back pain Referring Clinician: Lis Freedman MD. 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 needed. (Patient not taking: Reported on 05/30/2023) methocarbamol (ROBAXIN) 500 mg tablet Take by mouth. (Patient not taking: Reported on 05/30/2023) nabumetone (RELAFEN) 750 mg tablet (Patient not taking: Reported on 05/30/2023) Condoms Latex Lubricated (CONDOMS-NATALIE LUBRICATED) Misc Chanda Use one condom before and during every act of intercourse (Patient not taking: Reported on 05/30/2023) Current Facility-Administered Medications Medication Dose Route Frequency medroxyPROGESTERone 150 mg injection (DEPO-PROVERA) 150 mg INTRAMUSCULAR every 12 weeks medroxyPROGESTERone 150 mg injection (DEPO-PROVERA) 150 mg INTRAMUSCULAR every 12 weeks ALLERGIES Allergen Reactions Naproxen Other: See Comments stomache pain AND diarrhea Otc Skin Products [* Other: See Comments Skin sensitivity to certain OTC skin products FAMILY HISTORY Problem Relation Age of Onset other (CARIDAD) Mother Heart Father No Known Problems Half-brother other (Multiple sclerosis) Maternal Grandmother Cancer Maternal Grandfather Stomach cancer'. Diabetes Maternal Grandfather Heart Maternal Grandfather Hypertension Maternal Grandfather Prostate Cancer Maternal Grandfather Emphysema Paternal Grandfather Hypertension Maternal Uncle Lipids Maternal Uncle Social History Tobacco Use Smoking status: Every Day Packs/day: 0.25 Years: 15.00 Additional pack years: 0.0 (more content not included)... [facility] 06-18-2023 History of Present illness Narrative RHEUMATOLOGY NEW PATIENT NOTE REFERRING PHYSICIAN: CHIEF COMPLAINT: No chief complaint on file. HPI: Sandie Becerril is a 32 year old female who presents with joint pain x several years. Joint pain over low back, radiates to left leg. Was told she has bulging discs. Someone suggested to be tested for fibromyalgia. Joints get achy. She had MRI of low back. She had back inj which did not help. Whole body aches. She takes ibuprofen, tylenol which macy not help. On gabapentin. 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 Family history of autoimmune disease: unsure Smoking status: Tobacco Use: .25 packs/day, for 15 years. Types: Cigarettes Rheumatology REVIEW OF SYSTEMS: Constitutional: Recent Weight Change: No Fatigue: YES Fever: No Night sweats: No Heent: Alopecia: No H/o Inflammatory eye disease (iritis/scleritis): No Hearing loss: No Frequent sinusitis: No Oral ulcers: No Sicca: No Parotid swelling: No Hoarseness: No Dysphagia: No Heme/lymph: Lymphadenopathy: No Hematological abnormalities (anemia, thrombocytopenia, leukopenia): No Abnormal bleeding: No Skin: Malar or discoid lesions: No Photosensitivity: No Other rashes: No Raynaud's phenomenon: No Hives: No Tightness: No Nodules/bumps: No Easy Bruising: No Nail changes: No H/o psoriasis: No Dry skin Gastroenterology: Nausea: {YES sometimes Vomiting: No Change in bowel movements: No Heartburn: No Respiratory: Dry cough/SOB: No asthma Cardiovascular: Pain in chest: No Musculoskeletal: Per HPI Joint pain or swelling: No Prolonged morning stiffness: No Back pain or neck pain: No Muscle weakness: No Genitourinary: Vaginal dryness: No Rash/ulcers: No Neurological: Headaches: YES Sensitivity or pain of hands and/or feet: YES sometimes Psychiatry: Anxiety: YES Depression: No Poor sleep: YES wants to sleep all the time H/o loss: No H/o thrombosis: No Increased susceptibility to infection: No PAST MEDICAL HISTORY Diagnosis Date Acute appendicitis 06/19/14 Asthma Bipolar 1 disorder (HCC) Generalized anxiety disorder Anxiety, Generalized Genital herpes Migraines PAST SURGICAL HISTORY Procedure Laterality Date CHOLECYSTECTOMY Cholecystectomy LAPAROSCOPIC APPENDECTOMY 06/19/14 NEXPLANON INSERTION Left 12/17/2019 PAST SURGICAL HISTORY OF WISDOM TEETH Current Outpatient Medications Medication Sig amoxicillin (AMOXIL) 500 mg capsule amLODIPine (NORVASC) 5 mg tablet Take 1 tablet by mouth every afternoon. NURTEC ODT 75 mg disintegrating tablet medroxyPROGESTERone (DEPO-PROVERA) 150 mg/mL Inject 1 mL intramuscularly every 12 weeks. valACYclovir (VALTREX) 500 mg tablet Take 1 [...] Take 3.5 mg by mouth once daily. MAVYRET 100-40 mg tablet TAKE 3 TABLETS BY MOUTH EVERY DAY WITH FOOD (Patient not taking: Reported on 06/18/2023) phenazopyridine (PYRIDIUM) 100 mg tablet Take 1 tablet by mouth three times daily as needed. (Patient not taking: Reported on 05/30/2023) methocarbamol (ROBAXIN) 500 mg tablet Take by mouth. (Patient not taking: Reported on 05/30/2023) nabumetone (RELAFEN) 750 mg tablet (Patient not taking: Reported on 05/30/2023) Condoms Latex Lubricated (CONDOMS-NATALIE LUBRICATED) Misc Chanda Use one condom before and during every act of intercourse (Patient not taking: Reported on 05/30/2023) Current Facility-Administered Medications Medication Dose Route Frequency medroxyPROGESTERone 150 mg injection (DEPO-PROVERA) 150 mg INTRAMUSCULAR every 12 weeks medroxyPROGESTERone 150 mg injection (DEPO-PROVERA) 150 mg INTRAMUSCULAR every 12 weeks ALLERGIES Allergen Reactions Naproxen Other: See Comments stomache pain & diarrhea Otc Skin Products [* Other: See Comments Skin sensitivity to certain OTC skin products FAMILY HISTORY Problem Relation Age of Onset other (CARIDAD) Mother Heart Father No Known Problems Half-brother other (Multiple sclerosis) Maternal Grandmother Cancer Maternal Grandfather Stomach cancer'. Diabetes Maternal Grandfather Heart Maternal Grandfather Hypertension Maternal Grandfather Prostate Cancer Maternal Grandfather Emphysema Paternal Grandfather Hypertension Maternal Uncle Lipids Maternal Uncle Social History Tobacco Use Smoking status: Every Day Packs/day: 0.25 Years: 15.00 Additional pack years: 0.00 Total pack years: 3.75 Types: Cigarettes Smokeless tobacco: Never Vaping Use Vaping Use: current everyday user Substances: Nicotine, THC Devices: Disposable Substance Use Topics Alcohol use: Yes Comment: Seldom Drug use: Yes Types: Marijuana Comment: Smoking, couple times a day Occupation: Employer And Job Title: [employer] Years Of Education Completed: GED years Marital Status: Single with 1 child History Review: I have reviewed and modified as needed, the following during this visit: Allergies, Past Medical History, Past Surgical History, Past Family History, Past Social History. BP 128/67 Pulse 92 Temp 36.9 C (98.4 F) (Temporal) Resp 14 Ht 167.6 cm (5' 6) Wt 91.2 kg (201 lb) LMP 06/15/2023 (Approximate) BMI 32.44 kg/m Physical Exam GENERAL: Well appearing, alert, comfortable, in no acute distress, well-hydrated, well nourished. HEENT: Negative for external ears normal. Canals are clear. Both TMs visualized and are normal. Eye Exam normal. External nose normal, no nasal ulcer or throat ulcer. NECK: NECK Supple, no adenopathy; thyroid symmetric, normal size, no bruits CARDIAC: regular rate and rhythm, No murmur asculated., and Equal peripheral pulses RESPIRATORY: Lungs clear to auscultation. No wheezing, rhonchi, rales VASCULAR: RRR without murmur, gallop, or rubs. No ectopy. ABDOMEN: Soft, non tender. BS active. No masses or organomegaly. LYMPHATIC: Negative for adenopathy in the neck, axillae, groin, supraclavicular and auricular. NEURO: Motor and sensory exam normal MOTOR: Normal; including tone, gait, stressed gait, power and coordination. SKIN: Negative for alopecia, skin rash, malar rash, skin lesion, skin ulcer, pits, thickening, color changes, telangiectasias, nail changes, nail ridging, nail pitting, onycholysis MUSCULOSKELETAL: DIPS: Normal PIPS: Normal MCPs: Normal Wrists: Normal Elbows: Normal Shoulders: Normal C-Spine: Normal Hips: Normal Knees: Normal Ankles: Normal MTPs / Toes: Normal Arches: Normal Summary of old labs/radiology: Review/request of outside labs and imaging: Pertinent labs: No results found for this basename: gluc, K, NA, CHLOR, CO2, CREAT, BUN, ANION, CA, TPROT, ALB, TBILI, ALKPHOS, AST,ALT,WBC,HB,PLT,wsr,crp Serology: Pertinent imaging: TECHNIQUE: AP/PA, lateral and sunrise views of the left knee are presented. FINDINGS: No acute fractures or subluxations are noted. No obvious osteophyte formation. The joint spaces are well preserved. There is no evidence of joint effusion. The mineralization of the bones is normal. There is no significant soft tissue swelling. Assessment and Plan (M25.50) Pain in joint, multiple sites (primary encounter diagnosis) (E55.9) Vitamin D deficiency (M54.50) Low back pain, unspecified back pain laterality, unspecified chronicity, unspecified whether sciatica present 32-year-old female is here for evaluation management recommendation for joint pain. Patient reports chronic arthralgia and myalgia and has history of low back pain, sciatica. Patient does not have typical clinical features of an autoimmune disease like synovitis, typical rash (malar/discoid/gottron's/heliotr ope), objective muscle weakness, uveitis/scleritis, oral/nasal/genital ulcers, scarring alopecia, h/o organ involvement (nephritis, myopericarditis, hematological abnormalities, neuropathies, cerebritis etc) to suggest the presence of an underlying autoimmune disease. Symptoms are not inflammatory entirely. But we will evaluate for systemic autoimmune diseases with below labs and x-rays. She likely has fibromyalgia. We briefly discussed this diagnosis and treatment options. X-rays and blood work as below. Close follow-up to discuss results. Office Visit on 06/18/23 XR HAND GENERAL 3V PA/LAT/OBL LEFT XR HAND GENERAL 3V PA/LAT/OBL RIGHT XR KNEE SURVEY ARTHRITIS 1V AP BILATERAL XR LUMBAR GENERAL 3V AP/LAT/L5-S1 XR SACROILIAC JOINTS 2V AP PELVIS/FERGUESON XR HIP BILATERAL 5V PEL/AP/LAT EACH HIP THEA BY IFA SCREEN DNA ANTIBODY DS BLD DYE WINCH OPERATOR ANTIBODY BLOOD JUNE IGG AB SJOGREN ABS SSA/SSB RHEUMATOID FACTOR BL CCP ANTIBODY IGG CBC + DIFF COMP METABOLIC PANEL VITAMIN D 25 HYDROXY URINALYSIS WITH MICROSCOPIC, REFLEX CULTURE CREATININE RANDOM UR PROTEIN RANDOM UR CONSULT TO PAIN MGT No orders of the defined types were placed in this encounter. No follow-ups on file. Lis Freedman MD documented in this encounter [facility] 06-13-2023 Miscellaneous Notes Patient notified. Claudia Woodall RN Left message to call office. Nette Brown RN Please reassure her that a change in bleeding pattern is not unusual with Depo-Provera and should resolve on its own. If it does not, she can let us know. Angelina Bartlett APRN.GRAPE CRUSHER Patient was on her menses when she had her last depo on 06/06/23. She normally doesn't have anything more than spotting. Her bleeding stopped a couple of days after the depo. Started bleeding again today. Passed one blood clot the size of a quarter. When she removed her tampon this afternoon there was no blood. Cramping pain of 8 out of 10 today. Taking Pamprin. She's been on the Depo for a couple of years. Aware AG returns to the office tomorrow. Pratima Carmona RN documented in this encounter [facility] 06-06-2023 Note HNO ID: [id number] Author: NETTE BROWN RN Service: ? Author Type: Registered Nurse Type: Progress Notes Filed: 06/06/2023 16:03 Note Text: Patient identified by name and date of . Sandie Becerril is here for a Depo Provera injection. Patient brought medication. Date last injected: 03/15/23 Depo-Provera, 150 mg, administered IM left upper quadrant gluteus, Lot # [id number], expiration date 10/04/2024. Depo-Provera was given without incident. Date of last menses: Patient's last menstrual period was 11/14/2019 (approximate). Irregular bleeding - No Menses ceased - Yes STD prevention discussed: Yes Patient instructed to return to clinic in 12 weeks. [email or web address] [email or web address] [email or web address].pdf Provider Enedelia Dumont CNM was present in office at time of injection. Nette Brown RN [facility] 05-30-2023 History of Present illness Narrative Radiology Service Progress Note PATIENT NAME: Sandie Becerril DATE OF SERVICE: May 30, 2023 TIME: [...] IV DATA: Not applicable SIGNED BY: RT Jacque(Mike) May 30, 2023 12:23 PM documented in this encounter [facility] 05-30-2023 Note HNO ID: [id number] Author: GLORIA MAN RT(Mike) Service: Radiology Author Type: Technologist Type: Progress Notes Filed: 05/30/2023 12:35 Note Text: Radiology Service Progress Note PATIENT NAME: Sandie Becerril DATE OF SERVICE: May 30, 2023 TIME: [...] RT Jacque(R) May 30, 2023 12:23 PM [facility] 05-30-2023 Note HNO ID: [id number] Author: VERNON CALVIN APRN.GRAPE CRUSHER Service: ? Author Type: Nurse Practitioner Type: [...] Normal. Comments: 2-3 (more content not included)... [facility] 03-15-2023 Note HNO ID: [id number] Author: Claudia Woodall RN Service: ? Author Type: ? Type: Progress Notes Filed: 03/15/2023 4:13 PM Note Text: Patient identified by name and date of . Sandie Becerril is here for a Depo Provera injection. Patient brought medication. Date last injected: overdue-negative test Depo-Provera, 150 mg, administered IM right upper quadrant gluteus, Lot # [id number], expiration date 02/03/2027. Depo-Provera was given without incident. Date of last menses: Patient's last menstrual period was 11/14/2019 (approximate). Irregular bleeding - No Menses ceased - Yes STD prevention discussed: Yes Patient instructed to return to clinic on 12 weeks. [email or web address]/contrac eption/Depo-Provera%[email or web address] alendar.pdf Provider Dr. Penny was present in office at time of injection. Claudia Woodall RN [facility] 03-15-2023 History of Present illness Narrative Patient identified by name and date of . Sandie Becerril is here for a Depo Provera injection. Patient brought medication. Date last injected: overdue-negative test Depo-Provera, 150 mg, administered IM right upper quadrant gluteus, Lot # [id number], expiration date 02/03/2027. Depo-Provera was given without incident. Date of last menses: Patient's last menstrual period was 11/14/2019 (approximate). Irregular bleeding - No Menses ceased - Yes STD prevention discussed: Yes Patient instructed to return to clinic on 12 weeks. [email or web address]/contrac eption/Depo-Provera%20dosing%20c alendar.pdf Provider Dr. Penny was present in office at time of injection. Claudia Woodall RN documented in this encounter [facility] 12-07-2022 Miscellaneous Notes [facility] called to request Depo RX. Patient has a nurse visit scheduled tomorrow. CAM order also pending. Requested Prescriptions Pending Prescriptions Disp Refills medroxyPROGESTERone (DEPO-PROVERA) 150 mg/mL 1 mL 3 Sig: Inject 1 mL intramuscularly every 12 weeks. medroxyPROGESTERone 150 mg injection (DEPO-PROVERA) Pratima Carmona RN documented in this encounter [facility] 09-18-2022 Hospital Discharge instructions Patient Education 09/18/2022 18:35:20 Dental Pain [...] temperature. Use toothpaste made for sensitive teeth. [place] gently up and down instead of sideways. Brushing sideways can wear away root surfaces if they are exposed. If your tooth is chipped or cracked, or if there is a large open cavity, put oil of cloves directly on the tooth to relieve pain. You can buy oil of cloves at drugstores. Some pharmacies carry an gkdx-tcf-hqbngqy toothache kit. This contains a paste that you can put on the exposed tooth to make it less sensitive. Put a cold pack on your jaw over the sore area to help reduce pain. You may use xekg-nlo-gqcwnhj medicine to ease pain, unless your doctor [...] healthcare provider Pus drains from the tooth [phone] [employer]. [address] [place] [address], GIOVANI Gauthier [address]. All rights reserved. This information is not intended as a substitute for professional medical care. Always follow your healthcare professional's instructions. Follow Up Care 09/18/2022 18:27:29 With:your dentist Address: When:2-4 days [facility] Keyshawnvinicius [facility]ura 09-18-2022 Note Discharge Instructions Thank you for allowing [facility] to assist you with your healthcare needs. [...] temperature. Use toothpaste made for sensitive teeth. [place] gently up and down instead of sideways. Brushing sideways can wear away root surfaces if they are exposed. If your tooth is chipped or cracked, or if there is a large open cavity, put oil of cloves directly on the tooth to relieve pain. You can buy oil of cloves at drugstores. Some pharmacies carry an vmne-epi-jwelmwd toothache kit. This contains a paste that you can put on the exposed tooth to make it less sensitive. Put a cold pack on your jaw over the sore area to help reduce pain. You may use hbvk-dyw-yfctreq medicine to ease pain, unless your doctor [...] healthcare provider Pus drains from the tooth [phone] [employer]. [address] [place] [address]. All rights reserved. This information is not intended as a substitute for professional medical care. Always follow your healthcare professional's instructions. Additional Information VACCINATE! IT SAVES LIVES! Members of the community who have not yet received the COVID-19 vaccine and would like to receive it can visit one of [facility] vaccine clinics. There are many vaccine clinic locations within the [facility]. For locations and available times, please visit [email or web address] It is important to note that some COVID mobile vaccine clinics are held outdoors and may be canceled in rainy or stormy conditions. To learn more about pediatric vaccinations (ages 5-11), we invite you to visit the [facility] webpage. [email or web address] [email or web address]-Cwjud-Okkfpflizrx-Freq dtwjdo-Aozda-Pfajrxmzv.html To learn more about the COVID-19 vaccine, we invite you to visit the CDC website for a list of frequently asked questions. https://www.cdc.gov/coronavirus/ 2019-ncov/vaccines/faq.html [facility] Patient Portal Access Instructions: Stay connected with your healthcare team and access your personal medical information anytime with the [facility] [employer] Patient Portal. If you would like a full copy of your medical records please contact the [facility] Medical Records Department Sunday through Sunday between 8a.m. and 4:30p.m. Please follow the directions below to access the portal: 1.Access the email account you provided upon registration to the [facility].2.Look for an invitation email from [facility].3.Open the email and access the invitation link: Accept [facility] to [facility]4.Fill in the required arteaga to create your account. Sign into [email or web address] with your username and password that you [...] you will allow to register on the [facility] [employer] Patient Portal for access to your information. You can also access the [facility] Patient Portal on the [facility] nat. Simply click on Health Records under Health [...] Call your local pharmacy or go to http://bit.ly/6A0Bx3r to find one close to you.3.Make use of household items: Use cat litter or old coffee grounds to dispose medications if other options are not available. Mix your drugs with these household products, seal them in an airtight container and throw it into the garbage. Call [facility]: [phone] to be sure your drugs can be [...] reviewed and explained to me and I,SANDIE BECERRIL understand my current condition and have read and understand these discharge instructions. I have received a written copy of the plan/instructions. If I have questions, I am aware that I should contact my doctor. 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 09/05/2022 documented in this encounter [facility] 09-05-2022 History of Present illness Narrative Pt seen in office today for Depo Provera Injection. Patient brought own med. BP 130/80 Wt 183 lb 3.2 oz (83.1kg) LMP 11/14/2019 Vital signs reviewed. Pt advised when to return for next injection and/or yearly pap. Tolerated injection well? YesPatient identified by name and date of . Sandie Becerril is here for a Depo Provera injection. Patient brought medication. Date last injected: 05/24/22 Depo-Provera, 150 mg, administered IM left upper quadrant gluteus, Lot # [id number], expiration date 09/03/26. Depo-Provera was given without incident. Date of last menses: Patient's last menstrual period was 11/14/2019 (approximate). Irregular bleeding - No Menses ceased - Yes STD prevention discussed: Yes Patient instructed to return to clinic on 12 weeks+/- 5 days. [email or web address] eption/Depo-Provera%20dosing%20c alendar.pdf Provider Yaquelin Gaston CNP was present in office at time of injection. Rebecca Alexis LPN . See medication note for lot#, exp date. Sandie Becerril is a 31 year old female who [...] L1 SAB0 IAB0 Ectopic0 Multiple0 Live Births1 Facilities Coordinator History LMP: 11/14/2019 (Approximate), Drug Induced Amenorrhea Age at Menarche: Age at First : Age at Menopause: Facilities Coordinator History Comments: Sexual Activity: Yes; Male Contraception: [...] once daily. Condoms Latex Lubricated (CONDOMS-NATALIE LUBRICATED) Misc Chanda Use one condom before and during [...] - HCG QUAL UR B/O- negative Yaquelin Gaston APRN.ANNE Medical Decision Making: Problems: Low: Acute, uncomplicated illness or injury Data: Unique test(s) ordered: 2 Risk: Low: Low risk from testing/treatment Moderate: Drug management Medical Decision Making Level: 3 - Low documented in this encounter [facility] 08-14-2022 Discharge summary Note Date/Time August 14, 2022 8:42pm [facility] Medical Records Department [address] [place] [address] Emergency Department Summary 08/14/22 MR#: [id number] Acct: [id number] Name: SANDIE BECERRIL Rep #:[id number] : 1990 31 From: Isma Pal MD PCP: Dr. Rosa Kemp MD Status:R EG ER Location: ED HPI History of Present Illness Chief Complaint: Dizziness Informant: patient and spouse/S.O. Narrative Narrative: Patient presents with seeing stars today. She states she has felt this way before but does not know how often or for how long its been happening. It sounds like some years. She did have her lamotrigine stopped a couple weeks ago. She states it has been rough since then. But no specific symptoms. Today shewas outside. 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 She opened the door to a trailer and saw stars. She felt dizzy. She just feels tired now. She never had any focal deficit. Although she has a history of migraines she did not have a migraine and does not have 1. She was feeling fine prior to this. She states now she just feels tired and would like to go sleep. [facility] Medical History Acute maxillary sinusitis, unspecified Alcohol abuse Anxiety and depression Asthma Back problem Bee sting Bipolar 1 disorder Bone fracture Chronic bronchitis Chronic dental pain Chronic headaches Chronic low back pain Chronic neck pain Contact with and (suspected) exposure to other viral communicable diseases Drug abuse Encounter for screening for COVID-19 GERD (gastroesophageal reflux disease) Hearing loss in left ear Hx of emotional problems Left ankle sprain Lumbar radiculopathy Pneumonia PTSD (post-traumatic stress disorder) Right elbow pain Seasonal allergies URI (upper respiratory infection) URI (upper respiratory infection) Vision problem Home Medications blood pressure monitor #1 ea 10/29/19 [Rx Last Taken Unknown] lamotrigine 25 mg tablet (Lamictal) 25 mg PO DAILY 03/25/20 [History Last Taken Unknown] trazodone 50 mg tablet 50 mg PO QHS PRN Sleep 03/25/20 [History Last Taken Unknown] valacyclovir 500 mg tablet 500 mg PO DAILY 11/05/20 [History Last Taken Unknown] budesonide-formoterol HFA 160 mcg-4.5 mcg/actuation aerosol inhaler (Symbicort) 2 puff inhalation BID #10.2 grams 12/16/20 [Rx Last Taken Unknown] albuterol sulfate 90 mcg/actuation aerosol inhaler (ProAir HFA) 1 - 2 puff inhalation Q6H PRN shortness of breath or wheezing #8.5 grams 08/24/21 [Rx Last Taken Unknown] fluoxetine 20 mg tablet 40 mg PO DAILY 10/12/21 [History Last Taken Unknown] sumatriptan succinate 25 mg tablet See Rx Instructions PO .COMPLEX migraine #14 tabs 11/09/21 [Rx Last Taken Unknown] lidocaine 5 % topical patch 2 patch topical DAILY #60 ea 12/09/21 [Rx Last Taken Unknown] loratadine 10 mg capsule 10 mg PO DAILY #90 caps 04/10/22 [Rx Last Taken Unknown] ondansetron 4 mg disintegrating tablet 8 mg PO Q8H PRN PRN Nausea #20 tabs 06/10/22 [Rx Last Taken Unknown] bupropion HCl 150 mg tablet,12 hr sustained-release (Wellbutrin SR) 150 mg PO QAM 07/05/22 [History Last Taken Unknown] ibuprofen 800 mg tablet 800 mg PO Q8H PRN pain #60 tabs 07/12/22 [Rx Last Taken Unknown] acetaminophen 500 mg tablet 500 mg PO Q6H PRN fever or pain #60 tabs 07/18/22 [Rx Last Taken Unknown] amoxicillin 875 mg-potassium clavulanate 125 mg tablet 1 tab PO BID #20 tabs 07/18/22 [Rx Last Taken Unknown] ibuprofen 800 mg tablet 800 mg PO Q8H PRN pain #60 tabs 07/18/22 [Rx Last Taken Unknown] gabapentin 400 mg capsule See Rx Instructions .Route .COMPLEX #90 caps 07/25/22 [Rx Last Taken Unknown] MAGIC MOUTH WASH (BMX) 180 mL suspension 10 ml buccal .qid #180 mL 07/26/22 [Rx Last Taken Unknown] rimegepant 75 mg disintegrating tablet (Nurtec ODT) See Rx Instructions .Route .COMPLEX #8 tabs 07/31/22 [Rx Last Taken Unknown] Allergy/AdvReac Type Severity Reaction Status Date / Time zinc oxide Allergy Unknown Verified 08/14/22 18:01 naproxen [From Naprosyn] AdvReac Nausea Verified 08/14/22 18:01 Family History Unknown Alcoholism Anxiety Asthma Depression Myocardial infarction Suicide attempt Other Cancer Surgical History History of cholecystectomy History of laparoscopic appendectomy History of oral surgery Social History Smoking Status: Current every day smoker tobacco type: cigarettes and e-cigarettes alcohol intake: former year quit: 2014 substance use type: 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, methamphetamine and other what type of physical activity do you participate in: yoga and weight training frequency: 3-4 times per week ROS ROS ED Constitutional Constitutional ED: Denies chills, fever(s) or subjective Eyes Eyes: Reports change in vision; Denies blurry vision or diplopia ENT ENT ED: Denies rhinorrhea or sore throat Cardiovascular Cardiovascular: Denies chest pain or palpitations Respiratory/Chest Respiratory/Chest: Denies cough or dyspnea Gastrointestinal Gastrointestinal: Denies nausea or vomiting Genitourinary Genitourinary ED: Denies dysuria Musculoskeletal Musculoskeletal: Denies myalgias Integumentary Denies rash Neurologic Neurologic: Reports other Details: tired ; Denies headache(s), paresthesias or weakness Psychiatric Psychiatric: Reports anxiety and depression Endocrine Endocrinology: Denies polydipsia or polyuria Hematologic/Lymphatic Hematologic/Lymphatic: Denies easy bleeding or easy bruising Allergic/Immunologic Allergic/Immunologic ED: Denies urticaria EXAM Physical Exam Narrative Exam Narrative: Patient is awake and alert. Carries on normal conversation. HEENT shows normal mucous membranes. No rashes. No sinus tenderness. Tympanicmembranes are both clear. No cerumen obstruction. Neck is supple. No JVD. I hear no bruit. No pain with motion. No lymphadenopathy. Lungs are clear bilaterally. Saturations are 99 to 100% on room air showing no hypoxia. Heart is regular. No murmur gallop or rub Abdomen soft completely benign. Extremities show no edema or tenderness or swelling Neurologically she is awake alert normal speech understanding and grossly normalvisual arteaga. No discoordination. She is able to get up and move around bed without any difficulty. Const Vital Signs: 08/14/22 17:58 08/14/22 19:46 08/14/22 20:21 Temperature 98.4 F Temperature Source Temporal Pulse Rate 82 Respiratory Rate 16 Respiratory Pattern Normal Blood Pressure 140/93 H Blood Pressure Mean 108 Pulse Ox 99 Oxygen Delivery Method Room Air Room Air MDM MDM MDM Narrative Medical decision making narrative: My independent interpretation the patient's CT of the head shows no acute process. No mass or bleeding. Final reading is negative. My independent interpretation of her chest x-ray is also negative. This is consistent with final reading also. CBC is normal Coags are normal Electrolytes are normal other than mild decreased potassium and elevated creatinine. She was given fluids and potassium. This might be from being out in the heat and sweating and working hard today. She feels well now. She has stable gait. I think we can get her home safely. Lab Data Labs: Laboratory Results - last 24 hr 08/14/22 08/14/22 08/14/22 19:42 19:42 19:42 WBC 7.0 RBC 4.36 Hgb 13.4 Hct 40.3 MCV 92.4 MCH 30.7 MCHC 33.3 RDW Std Deviation 43.8 RDW Coeff of [place] 13.1 Plt Count 301 MPV 9.7 Immature Gran % (Auto) 0.300 Neut % (Auto) 66.8 Lymph % (Auto) 22.1 Walker % (Auto) 8.3 Eos % (Auto) 1.4 Baso % (Auto) 1.1 H Absolute Neuts (auto) 4.7 Absolute Lymphs (auto) 1.54 Nucleated RBC % 0 PT 12.3 INR 0.9 APTT 22.6 L Sodium 140 Potassium 3.3 L Chloride 112 H Carbon Dioxide 27.0 Anion Gap 1 L BUN 11 Creatinine 1.13 H Estim Creat Clear Calc 70.15 Est GFR (MDRD) Af Amer 72 Est GFR (MDRD) Non-Af 59 L BUN/Creatinine Ratio 9.7 L Glucose 97 Calcium 8.7 Radiography Diagnostic Testing: Clinical Impression(s) from Imaging Studies Chest X-Ray 08/14/22 20:10 IMPRESSION: Normal x-ray examination of the chest. Electronically Signed: Vernon Stockton MD at 20:57 EDT , Brain CT 08/14/22 20:36 IMPRESSION: Normal unenhanced CT scan of the brain. If clinical concern for acute infarct MRI recommended Electronically Signed: Vernon Stockton MD at 21:08 EDT , Discharge Plan Triage Chief Complaint: Dizziness ED Provider: Isma Pal Dx/Rx/DC Orders Clinical Impression: Episodic lightheadedness, Hypokalemia, Mild dehydration Instructions: ED Dehydration (Adult) Prescriptions: No Action lamotrigine [Lamictal] 25 mg tablet 25 mg PO DAILY trazodone 50 mg tablet 50 mg PO QHS PRN (Reason: Sleep) fluoxetine 20 mg tablet 40 mg PO DAILY lidocaine 5 % adhesive patch,medicated 2 patch TOPICAL DAILY Qty: 60 3RF Rx Instructions: leave on most painful area for up to 12 hrs bupropion HCl [Wellbutrin SR] 150 mg tablet sustained-release 12 hr 150 mg PO QAM amoxicillin-pot clavulanate 875-125 mg tablet 1 tab PO BID Qty: 20 0RF ibuprofen 800 mg tablet 800 mg PO Q8H PRN (Reason: pain) Qty: 60 1RF acetaminophen 500 mg tablet 500 mg PO Q6H PRN (Reason: fever or pain) Qty: 60 1RF MAGIC MOUTH WASH (BMX) 180 mL suspension 10 ml buccal .qid Qty: 180 0RF Rx Instructions: diphenhydramine 12.5 mg/5 mL oral liquid 60 mL; aluminum-mag hydroxide-simethicone 400 mg-400 mg-40 mg/5 mL oral susp 60 mL; Lidocaine Viscous 2 % mucosal solution 60 mL; Per 180 mL valacyclovir 500 mg tablet 500 mg PO DAILY ondansetron [ondansetron] 4 MG tablet 8 mg PO Q8H PRN PRN (Reason: Nausea) Qty: 20 0RF (DME) blood pressure monitor Kit See Rx Instructions .ROUTE .MEDSUPPLY Qty: 1 0RF Rx Instructions: Check blood pressure daily for hypertension I10 Symbicort 160-4.5 mcg/actuation HFA aerosol inhaler 2 puff INHALATION BID Qty: 10.2 3RF albuterol sulfate [ProAir HFA] 90 mcg/actuation HFA aerosol inhaler 1 - 2 puff inhalation Q6H PRN (Reason: shortness of breath or wheezing) Qty: 8.5 2RF sumatriptan succinate 25 mg tablet See Rx Instructions PO .COMPLEX Qty: 14 2RF Rx Instructions: take 1 tab at onset of headache; if no relief may repeat 1 tab in 2hr; max = 4 tabs/day (24hr) PO loratadine 10 mg capsule 10 mg PO DAILY Qty: 90 2RF ibuprofen 800 mg tablet 800 mg PO Q8H PRN (Reason: pain) Qty: 60 1RF gabapentin 400 mg capsule See Rx Instructions .ROUTE .COMPLEX Qty: 90 0RF Dose Instruction: take 1 capsule by mouth every 8 hours Rx Instructions: take 1 capsule by mouth every 8 hours Nurtec ODT 75 mg tablet,disintegrating See Rx Instructions .ROUTE .COMPLEX Qty: 8 0RF Dose Instruction: DISSOLVE 1 TABLET ON TOP OF TONGUE AND SWALLOW NEEDED FOR MIGRAINE HEADACHE Rx Instructions: DISSOLVE 1 TABLET ON TOP OF TONGUE AND SWALLOW NEEDED FOR MIGRAINE HEADACHE Primary Care Provider: Rosa Kemp Referrals: Rosa Kemp MD [Primary Care Provider] - 3-5 Days if not improving Disposition Disposition: Home, Self Care What to do if you have Problems For any increased pain, shortness of breath, bleeding, nausea or vomiting, chestpain, or any unexpected problems, contact your Primary Care Provider. Call [facility] ([phone]) or report to the closest Emergency Room. Call 911 if necessary. 08/14/222239 <Electronically signed by Isma Pal MD> Cosigner Signature (if applicable): CC: Dr. Rosa Kemp MD ~ Signed [facility] Work Phone: [phone]) 590-624803-21-2023 Hospital Discharge instructions Patient Education 07/25/2022 19:45:47 Dental Pain [...] or cold beverages. It can also be worsewhen you bite on hard foods. Pain may spread from the tooth to your ear or the area of the jaw on the same side. Home care Follow these tips when caring for yourself at home: Don't have hot and cold foods and drinks. Your tooth may be sensitive to changes in temperature. Use toothpaste made for sensitive teeth. [place] gently up and down instead of sideways. Brushing sideways can wear away root surfaces if they are exposed. If your tooth is chipped or cracked, or if there is a large open cavity, put oil of cloves directlyon the tooth to relieve pain. You can buy oil of cloves at drugstores. Some pharmacies carry an rsbr-dgq-meemkow toothache kit. This contains a paste that you can put on the exposed tooth to make it less sensitive. Put a cold pack on your jaw over the sore area to help reduce pain. You may use fyph-ilp-uxnyhkq medicine to ease pain, unless your doctor prescribed another medicine.If you have chronic liver or kidney disease, [...] healthcare provider Pus drains from the tooth [phone] [employer]. [address] [place] [address], [place] [address]. All rights reserved. This information is not intended as a substitute for professional medical care. Always follow yourhealthcare professional's instructions. Follow Up Care 07/25/2022 18:34:57 With:Follow-up with your dentist Address: When:2-4 days Comments:Schedule appointment as soon as possible With:ROSA KEMP MD Address: [address] [place] [address] [place] [address] [phone] When:2-4 days [facility] 03-21-2023 Emergency department Discharge summary Discharge Instructions Thank you for allowing [facility] to assist you with your healthcare needs. The following is importantdischarge information regarding your hospital visit. Diagnosis from Today's Visit Toothache/injury What to Do Next Instructions from Your Care Team No qualifying data available. Post Acute Orders No qualifying data available. You Need to Schedule the Following Appointments Follow Up with Follow-up with your dentist When Within 2-4 days Why: Schedule appointment as soon as possible Where: Follow Up with ROSA KEMP MD When Within 2-4 days Where: [address] [place] [id number] [phone] Allergies naproxen Medications Please ask your primary doctor or pharmacist before taking any other medication not listed, including over the counter drugs, herbal medications, vitamins and or supplements as they may interact withyour home medications. What How Much When Why [...] or cold beverages. It can also be worsewhen you bite on hard foods. Pain may spread from the tooth to your ear or the area of the jaw on the same side. Home care Follow these tips when caring for yourself at home: Don't have hot and cold foods and drinks. Your tooth may be sensitive to changes in temperature. Use toothpaste made for sensitive teeth. [place] gently up and down instead of sideways. Brushing sideways can wear away root surfaces if they are exposed. If your tooth is chipped or cracked, or if there is a large open cavity, put oil of cloves directlyon the tooth to relieve pain. You can buy oil of cloves at drugstores. Some pharmacies carry an dttb-rzx-ylszbqf toothache kit. This contains a paste that you can put on the exposed tooth to make it less sensitive. Put a cold pack on your jaw over the sore area to help reduce pain. You may use rojy-nfe-mybbtnq medicine to ease pain, unless your doctor prescribed another medicine.If you have chronic liver or kidney disease, [...] healthcare provider Pus drains from the tooth [phone] [employer]. [address] [place] [address]. All rights reserved. This information is not intended as a substitute for professional medical care. Always follow yourhealthcare professional's instructions. Additional Information VACCINATE! IT SAVES LIVES! Members of the community who have not yet received the COVID-19 vaccine and would like to receive it can visit one of [facility] vaccine clinics. There are many vaccine clinic locations within the [facility]. For locations and available times, please visit [email or web address]/. It is important to note that some COVID mobile vaccine clinics are held outdoors and may be canceled in rainy or stormy conditions. To learn more about pediatric vaccinations (ages 5-11), we invite you to visit the [facility] webpage. [email or web address]/[email or web address] [email or web address] learn more about the COVID-19 vaccine, we invite you to visit the CDC website for a list of frequently asked questions. https://www.cdc.gov/coronavirus/2019-ncov/vaccines/faq.html [facility] [employer] Patient Portal Access Instructions: Stay connected with your healthcare team and access your personal medical information anytime with the [facility] Patient Portal. If you would like a full copy of your medical records please contact the [facility] Medical Records Department Sunday through Sunday between 8a.m. and 4:30p.m. Please follow the directions below to access the portal: 1.Access the email account you provided upon registration to the [facility].2.Look for an invitation email from [facility].3.Open the email and access the invitation link: Accept Invitation to [facility]4.Fill in the required arteaga to create your account. Sign into [email or web address] with your username and password that you [...] you will allow to register on the [facility] Patient Portal for access to your information. You can also access the [facility] Patient Portal on the [facility] nat. Simply click on Health Records under HealthData and then click on the [employer] logo. HOW TO SAFELY DISPOSE OF PRESCRIPTION MEDICATIONS Please use one of the following methods to safely dispose of your unused medications. 1.Use a drug disposal kit: the drug disposal pouch allows you to safely discard your old and unuseddrugs. Ask your nurse to give you one when you are discharged.2.Visit a local take-back location: Many local pharmacies and police departments have programs that collect old and unwanted prescriptiondrugs. Call your local pharmacy or go to http://bit.[employer]/1H0Nx9i to find one close to you.3.Make use of household items: Use cat litter or old coffee grounds to dispose medications if other options arenot available. Mix your drugs with these household products, seal them in an airtight container andthrow it into the garbage. Call [facility]: [phone] to be sure your drugs can be [...] drowsiness, such as benzodiazepines, also known as benzos,including diazepam and alprazolam, muscle relaxants or sleep aids. Never sell or share prescriptionopioids. This is illegal. Store opioids in a [...] aware that I should contact my doctor. Patient/Pharmacy Graduate Intern Signature: Date/Time: Relationship to Patient: Witness Name/Signature: Date/Time: [facility] Keyshawn [id number] Emergency department Discharge summary Discharge Instructions Thank you for allowing [facility] to assist you with your healthcare needs. The following is importantdischarge information regarding your hospital visit. Diagnosis from Today's Visit Toothache/injury What to Do Next Instructions from Your Care Team No qualifying data available. Post Acute Orders No qualifying data available. You Need to Schedule the Following Appointments Follow Up with Follow-up with your dentist When Within 2-4 days Why: Schedule appointment as soon as possible Where: Follow Up with ROSA KEMP MD When Within 2-4 days Where: [address] [place] [address] [phone] Allergies naproxen Medications Please ask your primary doctor or pharmacist before taking any other medication not listed, including over the counter drugs, herbal medications, vitamins and or supplements as they may interact withyour home medications. What How Much When Why [...] or cold beverages. It can also be worsewhen you bite on hard foods. Pain may spread from the tooth to your ear or the area of the jaw on the same side. Home care Follow these tips when caring for yourself at home: Don't have hot and cold foods and drinks. Your tooth may be sensitive to changes in temperature. Use toothpaste made for sensitive teeth. [place] gently up and down instead of sideways. Brushing sideways can wear away root surfaces if they are exposed. If your tooth is chipped or cracked, or if there is a large open cavity, put oil of cloves directlyon the tooth to relieve pain. You can buy oil of cloves at drugstores. Some pharmacies carry an xtup-wme-kfktqco toothache kit. This contains a paste that you can put on the exposed tooth to make it less sensitive. Put a cold pack on your jaw over the sore area to help reduce pain. You may use iaeu-mne-qlmuqxd medicine to ease pain, unless your doctor prescribed another medicine.If you have chronic liver or kidney disease, [...] healthcare provider Pus drains from the tooth [phone] [employer]. [address] [place] [address]. All rights reserved. This information is not intended as a substitute for professional medical care. Always follow yourhealthcare professional's instructions. Additional Information VACCINATE! IT SAVES LIVES! Members of the community who have not yet received the COVID-19 vaccine and would like to receive it can visit one of [facility] vaccine clinics. There are many vaccine clinic locations within the [facility]. For locations and available times, please visit [email or web address]/. It is important to note that some COVID mobile vaccine clinics are held outdoors and may be canceled in rainy or stormy conditions. To learn more about pediatric vaccinations (ages 5-11), we invite you to visit the [facility] webpage. [email or web address]/[email or web address] [email or web address].htmlTo learn more about the COVID-19 vaccine, we invite you to visit the CDC website for a list of frequently asked questions. https://www.cdc.gov/coronavirus/2019-ncov/vaccines/faq.html [facility] Patient Portal Access Instructions: Stay connected with your healthcare team and access your personal medical information anytime with the [employer] Patient Portal. If you would like a full copy of your medical records please contact the [facility] Medical Records Department Sunday through Sunday between 8a.m. and 4:30p.m. Please follow the directions below to access the portal: 1.Access the email account you provided upon registration to the [facility].2.Look for an invitation email from [facility].3.Open the email and access the invitation link: Accept Invitation to [facility]4.Fill in the required arteaga to create your account. Sign into [email or web address] with your username and password that you [...] you will allow to register on the [facility] [employer] [facility] Patient Portal for access to your information. You can also access the [facility] Patient Portal on the [facility] nat. Simply click on Health Records under [employer] and then click on the [facility] logo. HOW TO SAFELY DISPOSE OF PRESCRIPTION MEDICATIONS Please use one of the following methods to safely dispose of your unused medications. 1.Use a drug disposal kit: the drug disposal pouch allows you to safely discard your old and unuseddrugs. Ask your nurse to give you one when you are discharged.2.Visit a local take-back location: Many local pharmacies and police departments have programs that collect old and unwanted prescriptiondrugs. Call your local pharmacy or go to http://bit.[employer]/6M3El3q to find one close to you.3.Make use of household items: Use cat litter or old coffee grounds to dispose medications if other options arenot available. Mix your drugs with these household products, seal them in an airtight container andthrow it into the garbage. Call [facility]: [phone] to be sure your drugs can be [...] drowsiness, such as benzodiazepines, also known as benzos,including diazepam and alprazolam, muscle relaxants or sleep aids. Never sell or share prescriptionopioids. This is illegal. Store opioids in a secure place and out of reach of others (including children, family, friends and visitors). The last page(s) of this document has been signed and retained as a CHART COPY Signatures Patient Education Materials Dental Pain Medication Leaflets My discharge plan and instructions have been reviewed and explained to me and I,SANDIE BECERRIL understand my current condition and have read and understand these discharge instructions. I have received a written copy of the plan/instructions. If I have questions, I am aware that I should contact my doctor. Patient/Pharmacy Graduate Intern Signature: Date/Time: Relationship to Patient: Witness Name/Signature: Date/Time: [facility]02-04-[address] Bingham [facility] June 10, 2022 9:47pm Note Date/Time June 10, 2022 7 :34pm [facility] Medical Records Department [address] [place] [address] Emergency Department Summary 06/10/22 MR#: [id number] Acct: [id number] Name: SANDIE BECERRIL Rep #:[id number] : 1990 31 From: Alvarez Bingham MD PCP: Dr. Rosa Kemp MD Status:R EG ER Location: ED HPI HPI - GI History of Present Illness Chief Complaint: Weakness Informant: patient Abdominal Pain/Flank Pain Onset: Today Context: Gradual Onset Timing: Continuous Quality: Cramping Location: Diffuse Current Severity: Moderate Maximum Severity: Moderate Worsened by: - (Vomiting) Relieved by: Nothing Nausea/Vomiting/Emesis GI Symptom: Positive for Nausea and Vomiting Onset: Today Quality: Positive for Nonbilious; Negative for Blood streaks, Coffee ground or Hematemesis Severity: Severe Diarrhea/Melena/Hematochezia GI Symptom: Positive for Diarrhea; Negative for Melena or Hematochezia Onset: Today Stool Quality: Positive for Watery Severity: Moderate Associated Symptoms Associated Symptoms: Positive for - (Decreased urination today but able to urinate); Negative for Dysuria, Frequency or Hematuria Narrative Narrative: Patient states she has had myalgias, chills, vomiting, diarrhea, followed by abdominal cramping on both sides of her mid abdomen basically all day today. Noknown sick contacts. She has not traveled out of the area. No suspicious food intake. No new medications. No known fevers but she has not checked. No bloodin emesis or diarrhea. [facility] Medical History Acute maxillary sinusitis, unspecified Alcohol abuse Anxiety and depression Asthma Back problem Bee sting Bipolar 1 disorder Bone fracture Chronic bronchitis Chronic headaches Chronic low back pain Chronic neck pain Contact with and (suspected) exposure to other viral communicable diseases Drug abuse Encounter for screening for COVID-19 GERD (gastroesophageal reflux disease) Hearing loss in left ear Hx of emotional problems Left ankle sprain Lumbar radiculopathy Pneumonia PTSD (post-traumatic stress disorder) Right elbow pain Seasonal allergies URI (upper respiratory infection) URI (upper respiratory infection) Vision problem Home Medications blood pressure monitor #1 ea 10/29/19 [Rx Last Taken Unknown] cariprazine 1.5 mg capsule 3 mg PO DAILY 03/25/20 [History Last Taken Unknown] lamotrigine 25 mg tablet (Lamictal) 25 mg PO DAILY 03/25/20 [History Last Taken Unknown] trazodone 50 mg tablet 50 mg PO QHS PRN Sleep 03/25/20 [History Last Taken Unknown] valacyclovir 500 mg tablet 500 mg PO DAILY 11/05/20 [History Last Taken Unknown] budesonide-formoterol HFA 160 mcg-4.5 mcg/actuation aerosol inhaler (Symbicort) 2 puff inhalation BID #10.2 grams 12/16/20 [Rx Last Taken Unknown] albuterol sulfate 90 mcg/actuation aerosol inhaler (ProAir HFA) 1 - 2 puff inhalation Q6H PRN shortness of breath or wheezing #8.5 grams 08/24/21 [Rx Last Taken Unknown] fluoxetine 20 mg tablet 40 mg PO DAILY 10/12/21 [History Last Taken Unknown] sumatriptan succinate 25 mg tablet See Rx Instructions PO .COMPLEX migraine #14 tabs 11/09/21 [Rx Last Taken Unknown] acetaminophen 500 mg tablet 500 mg PO Q6H PRN fever or pain #60 tabs 12/08/21 [Rx Last Taken Unknown] lidocaine 5 % topical patch 2 patch topical DAILY #60 ea 12/09/21 [Rx Last Taken Unknown] methocarbamol 500 mg tablet 500 mg PO TID PRN muscle spasm #90 tabs 12/09/21 [Rx Last Taken Unknown] ibuprofen 800 mg tablet 800 mg PO Q8H PRN pain #60 tabs 02/10/22 [Rx Last Taken Unknown] gabapentin 400 mg capsule 400 mg PO Q8H #90 caps 02/14/22 [Rx Last Taken Unknown] loratadine 10 mg capsule 10 mg PO DAILY #90 caps 04/10/22 [Rx Last Taken Unknown] ondansetron 4 mg disintegrating tablet 4 mg PO Q8H PRN nausea and vomiting #10 tabs 04/21/22 [Rx Last Taken Unknown] rimegepant 75 mg disintegrating tablet (Nurtec ODT) 75 mg PO QDAY PRN migraine headache #14 tabs 05/18/22 [Rx Last Taken Unknown] ondansetron 4 mg disintegrating tablet 8 mg PO Q8H PRN PRN Nausea #20 tabs 06/10/22 [Rx Last Taken Unknown] Allergy/AdvReac Type Severity Reaction Status Date / Time zinc oxide Allergy Unknown Verified 06/10/22 18:32 naproxen [From Naprosyn] AdvReac Nausea Verified 06/10/22 18:32 Family History Unknown Alcoholism Anxiety Asthma Depression Myocardial infarction Suicide attempt Other Cancer Surgical History History of cholecystectomy History of laparoscopic appendectomy History of oral surgery Social History Smoking Status: Current every day smoker tobacco type: cigarettes and e- cigarettes alcohol intake: former year quit: 2014 substance use type: 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, methamphetamine and other what type of physical activity do you participate in: yoga and weight training frequency: 3-4 times per week ROS ROS ED Constitutional Constitutional ED: Reports chills, fatigue and malaise; Denies fever(s) Eyes Eyes: Denies change in vision or diplopia ENT ENT ED: Denies rhinorrhea or sore throat Cardiovascular Cardiovascular: Denies chest pain or palpitations Respiratory/Chest Respiratory/Chest: Denies cough or dyspnea Gastrointestinal Gastrointestinal: Reports abdominal pain, diarrhea, nausea and vomiting Genitourinary Genitourinary ED: Denies dysuria or hematuria Musculoskeletal Musculoskeletal: Reports myalgias; Denies back pain or neck pain Integumentary Denies abscess or rash Neurologic Neurologic: Denies headache(s), paresthesias or weakness Psychiatric Psychiatric: Denies anxiety or suicidal thoughts EXAM Physical Exam Const Vital Signs: 06/10/22 18:32 06/10/22 19:13 Temperature 97 F L Temperature Source Temporal Pulse Rate 106 H Respiratory Rate 14 Respiratory Effort Normal Non-Labored Respiratory Pattern Normal Blood Pressure 129/90 H Blood Pressure Mean 103 Pulse Ox 97 Oxygen Delivery Method Room Air Positive well nourished and well developed Constitutional Narrative: Well-appearing General Appearance ED: well developed and NAD HEENT Reports moist mucous membranes normocephalic and atraumatic Eyes PERRL and EOMs intact bilaterally Neck full ROM and supple Resp normal respiratory effort and clear to auscultation bilaterally Cardio regular rate, regular rhythm and no murmurs Cardio Narrative: Mildly tachycardic GI non-distended GI Narrative: Mild diffuse tenderness upper half of abdomen no lower abdominal tenderness. Noguarding or rebound tenderness. No distention. Auscultation: normoactive bowel sounds Palpation: soft Back/Spine no CVA tenderness General Back: other FROM Extremity normal to inspection General Extremety ED: Negative for edema, pulses abnormal or tenderness General Extremity: Negative for edema or pulses abnormal Neuro oriented x3, CN's II-XII intact bilaterally and no sensory deficits noted Sensorium / Orientation: awake and alert Motor Exam: strength 5/5 throughout Skin no rashes or lesions noted and no wounds MDM MDM MDM Narrative Medical decision making narrative: Labs are unremarkable except for mild hypokalemia and some mild prerenal azotemia. She was treated with IV fluids, Zofran, and Toradol. She did feel better. I gave her a dose of potassium so I avoided dicyclomine for her cramping. She is tolerating oral fluids well, we will discharge her with a prescription for Zofran, viral gastroenteritis is high on the differential here. Do not think she needs advanced abdominal imaging at this time. Lab Data Attestation: I reviewed the patient's lab results. Labs: Laboratory Results - last 24 hr 06/10/22 06/10/22 06/10/22 19:25 19:25 19:25 WBC 6.0 RBC 5.19 Hgb 16.1 H Hct 46.6 MCV 89.8 MCH 31.0 MCHC 34.5 RDW Std Deviation 41.6 RDW Coeff of Holland 12.5 Plt Count 270 MPV 9.6 Immature Gran % (Auto) 0.200 Neut % (Auto) 87.3 H Lymph % (Auto) 4.3 L Walker % (Auto) 7.2 Eos % (Auto) 0.5 Baso % (Auto) 0.5 Absolute Neuts (auto) 5.2 Absolute Lymphs (auto) 0.26 L Nucleated RBC % 0 Differential Comment SEE COMMENT Platelet Estimate ADEQUATE RBC Morphology N CHROM Anisocytosis RARE Macrocytosis RARE Sodium 139 Potassium 3.3 L Chloride 107 Carbon Dioxide 24.0 Anion Gap 8 BUN 19 H Creatinine 1.04 H Estim Creat Clear Calc 76.22 Est GFR (MDRD) Af Amer 79 Est GFR (MDRD) Non-Af 65 BUN/Creatinine Ratio 18.3 Glucose 100 Calcium 9.2 Total Bilirubin 0.60 AST 66 H ALT 93 H Alkaline Phosphatase 80 Total Protein 8.0 Albumin 4.2 Globulin 3.8 Albumin/Globulin Ratio 1.1 Serum , Qual NEGATIVE Discharge Plan Triage Chief Complaint: Weakness ED Provider: Alvarez Bingham Dx/Rx/DC Orders Clinical Impression: Viral gastroenteritis, Mild dehydration, Hypokalemia due to excessive gastrointestinal loss of potassium Instructions: Viral Gastroenteritis Prescriptions: New ondansetron [ondansetron] 4 MG tablet 8 mg PO Q8H PRN PRN (Reason: Nausea) Qty: 20 0RF No Action cariprazine 1.5 mg capsule 3 mg PO DAILY lamotrigine [Lamictal] 25 mg tablet 25 mg PO DAILY trazodone 50 mg tablet 50 mg PO QHS PRN (Reason: Sleep) fluoxetine 20 mg tablet 40 mg PO DAILY methocarbamol 500 mg tablet 500 mg PO TID PRN (Reason: muscle spasm) Qty: 90 0RF lidocaine 5 % adhesive patch,medicated 2 patch TOPICAL DAILY Qty: 60 3RF Rx Instructions: leave on most painful area for up to 12 hrs Nurtec ODT 75 mg tablet,disintegrating 75 mg PO QDAY PRN (Reason: migraine headache) Qty: 14 1RF Rx Instructions: as a single dose valacyclovir 500 mg tablet 500 mg PO DAILY ondansetron 4 mg tablet,disintegrating 4 mg PO Q8H PRN (Reason: nausea and vomiting) Qty: 10 0RF (DME) blood pressure monitor Kit See Rx Instructions .ROUTE .MEDSUPPLY Qty: 1 0RF Rx Instructions: Check blood pressure daily for hypertension I10 Symbicort 160-4.5 mcg/actuation HFA aerosol inhaler 2 puff INHALATION BID Qty: 10.2 3RF albuterol sulfate [ProAir HFA] 90 mcg/actuation HFA aerosol inhaler 1 - 2 puff inhalation Q6H PRN (Reason: shortness of breath or wheezing) Qty: 8.5 2RF sumatriptan succinate 25 mg tablet See Rx Instructions PO .COMPLEX Qty: 14 2RF Rx Instructions: take 1 tab at onset of headache; if no relief may repeat 1 tab in 2hr; max = 4 tabs/day (24hr) PO acetaminophen 500 mg tablet 500 mg PO Q6H PRN (Reason: fever or pain) Qty: 60 1RF ibuprofen 800 mg tablet 800 mg PO Q8H PRN (Reason: pain) Qty: 60 1RF gabapentin 400 mg capsule 400 mg PO Q8H Qty: 90 2RF loratadine 10 mg capsule 10 mg PO DAILY Qty: 90 2RF Primary Care Provider: Rosa Kemp Referrals: Rosa Kemp MD [Primary Care Provider] - 3-5 Days if not improving Activity Restrictions/Additional Instructions: You may take Imodium as needed for your diarrhea Disposition Disposition: Home, Self Care What to do if you have Problems For any increased pain, shortness of breath, bleeding, nausea or vomiting, chestpain, or any unexpected problems, contact your Primary Care Provider. Call [facility] ([phone]) or report to the closest Emergency Room. Call 911 if necessary. 06/10/222146 <Electronically signed by Alvarez Bingham MD> Cosigner Signature (if applicable): CC: Dr. Rosa Kemp MD ~ Signed [facility] Work Phone: 1(397) 451-730202-04-2023 Hospital Discharge instructions Patient Education 06/10/2022 02:59:17 DIET, Vomiting [...] you feel better and your symptoms lessen. 2508-7561 [employer]. [address] [place] [address], [place] [address]. All rights reserved. This information is not intended as a substitute for professional medical care. Always follow yourhealthcare professional's instructions. Follow Up Care 06/10/2022 02:45:15 With:ROSA KEMP MD Address: [address] [place] [address] [phone] When:2-4 days [facility] 02-04-2023 Emergency department Discharge summary Discharge Instructions Thank you for allowing [facility] to assist you with your healthcare needs. The following is importantdischarge information regarding your hospital visit. Diagnosis from Today's Visit Vomiting Vomiting What to Do Next Instructions from Your Care Team No qualifying data available. Post Acute Orders No qualifying data available. You Need to Schedule the Following Appointments Follow Up with ROSA KEMP MD When Within 2-4 days Where: [address] [place] [address]- [phone] Allergies naproxen Medications Please ask your primary doctor or pharmacist before taking any other medication not listed, including over the counter drugs, herbal medications, vitamins and or supplements as they may interact withyour home medications. What How Much When Why [...] provided, or with a special dose-measuring spoon ormedicine cup. If you do not have a [...] the body--agitation, hallucinations, fever, fast heart rate, overactivereflexes, nausea, vomiting, diarrhea, loss of coordination, fainting. Common side effects may include: diarrhea or constipation; headache; drowsiness; or tired feeling. This is not a complete list of side effects and others may occur. Call your doctor for medical advice about side effects. You may report side effects to FDA at 0-451-BZX-[phone]. What other drugs will affect ondansetron? Ondansetron [...] interact with ondansetron. This includes prescription and ryyw-ukt-ijuhila medicines, vitamins, and herbal products. Give a [...] to ensure that the information provided by [employer]. ('[employer]') is accurate, up-to-date, and complete, but no guarantee is made to that effect. Drug information contained herein may be time sensitive. [employer] information has been compiled for use by healthcare practitioners and consumers in the [place] and therefore [employer] does not warrant that uses outside of the [place] are appropriate, unless specifically indicated otherwise. [employer]s drug information does not endorse drugs, diagnose patients or recommend therapy. [employer] drug information isan informational resource designed to assist licensed healthcare practitioners in caring for their p atients and/or to serve consumers viewing this service as a supplement to, and not a substitute for, the expertise, skill, knowledge and judgment of healthcare practitioners. The absence of a warningfor a given drug or drug combination in no way should be construed to indicate that the drug or drug combination is safe, effective or appropriate for any given patient. [employer] does not assume any responsibility for any aspect of healthcare administered with the aid of information [employer] provides. The information contained herein is not intended to cover all possible uses, directions, precautions, warnings, drug interactions, allergic reactions, or adverse effects. If you have questions about the drugs you are taking, check with your doctor, nurse or pharmacist. Copyright 6147-2562 Jh [employer] [facility]. Version: 13.01. Revision Date: 02/25/2016. Education Materials [...] you feel better and your symptoms lessen. 1819-0484 [employer]. [address] [place] [address]. All rights reserved. This information is not intended as a substitute for professional medical care. Always follow yourhealthcare professional's instructions. Additional Information VACCINATE! IT SAVES LIVES! Members of the community who have not yet received the COVID-19 vaccine and would like to receive it can visit one of [facility] vaccine clinics. There are many vaccine clinic locations within the [facility]. For locations and available times, please visit [email or web address]. It is important to note that some COVID mobile vaccine clinics are held outdoors and may be canceled in rainy orstormy conditions. To learn more about pediatric vaccinations (ages 5-11), we invite you to visit the [facility] webpage. [email or web address] [email or web address].htmlTo learn more about the COVID-19 vaccine, we invite you to visit the [facility] website for a list of frequently asked questions. [email or web address] [facility] Patient Portal Access Instructions: Stay connected with your healthcare team and access your personal medical information anytime with the [facility] Patient [facility]. If you would like a full copy of your medical records please contact the [facility] Medical Records Department Sunday through Sunday between 8a.m. and 4:30p.m. Please follow the directions below to access the portal: 1.Access the email account you provided upon registration to the [facility].2.Look for an invitation email from [facility].3.Open the email and access the invitation link: Accept Invitation to [facility]4.Fill in the required arteaga to create your account. Sign into [email or web address] with your username and password that you [...] you will allow to register on the [facility] Patient Portal for access to your information. You can also access the [facility] Patient Portal on the [facility] nat. Simply click on Health Records under [employer] and then click on the [facility] logo. HOW TO SAFELY DISPOSE OF PRESCRIPTION MEDICATIONS Please use one of the following methods to safely dispose of your unused medications. 1.Use a drug disposal kit: the drug disposal pouch allows you to safely discard your old and unuseddrugs. Ask your nurse to give you one when you are discharged.2.Visit a local take-back location: Many local pharmacies and police departments have programs that collect old and unwanted prescriptiondrugs. Call your local pharmacy or go to http://bit.[employer]/3X5Pr2i to find one close to you.3.Make use of household items: Use cat litter or old coffee grounds to dispose medications if other options arenot available. Mix your drugs with these household products, seal them in an airtight container andthrow it into the garbage. Call [facility]: [phone] to be sure your drugs can be [...] drowsiness, such as benzodiazepines, also known as benzos,including diazepam and alprazolam, muscle relaxants or sleep aids. Never sell or share prescriptionopioids. This is illegal. Store opioids in a [...] aware that I should contact my doctor. 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 Sandie Becerril is here for a Depo Provera injection. Patient brought medication. Date last injected: out of range - negative test Depo-Provera, 150 mg, administered IM right upper quadrant gluteus, Lot # [id number], expiration date 01/04/2026. Depo-Provera was given without incident. Date of last menses: Patient's last menstrual period was 11/14/2019 (approximate). Irregular bleeding - No Menses ceased - Yes STD prevention discussed: Yes Patient instructed to return to clinic in 12 weeks. [email or web address].[email or web address] Provider Love Penny MD was present in office at time of injection. Nette Brown RN [facility] Discharge instructions Patient Education 01/29/2022 16:09:13 BACK PAIN w/ SCIATICA Sciatica Sciatica is a condition that causes pain in the lower back and down into the buttock, hip, and leg.Sometimes the leg pain can happen without any back pain. Sciatica happens when a spinal nerve is irritated or has pressure put on it as comes out of the spinal canal in the lower back. This most often happens when a bulge or rupture of a nearby spinal disk presses on the nerve. Sciatica can also becaused by a narrowing of the spinal canal [...] case, muscle spasm often also happens. Muscle spasmmakes the pain worse. A health care provider makes a diagnosis of sciatica from your symptoms and a physical exam. Unlessyou had an injury from a car accident [...] firm mattress is best. Try lying flat onyour back with pillows under your knees. You [...] You will be told of any new findingsthat may affect your care. When to seek medical advice Call your health care provider right away if any of these occur: Pain gets worse even after taking prescribed medicine Weakness or numbness in 1 or both legs or hips Numbness in your groin or genital area You can t control your bowel or bladder Fever Redness or swelling over your back or spine [id number] [employer]. [address] [place] [address]. All rights reserved. This information is not intended as a substitute for professional medical care. Always follow yourhealthcare professional's instructions. Follow Up Care 01/29/2022 15:23:42 With:Your pain management doctor Address: When:2-4 days With:ROSA KEMP MD Address: [address] [place] [address] [phone] When:2-4 days With:Go to emergency room if symptoms worsen Address:Unknown When:2-4 days [facility] 09-25-2022 Emergency department Discharge summary Discharge Instructions Thank you for allowing [facility] to assist you with your healthcare needs. The following is importantdischarge information regarding your hospital visit. Diagnosis from Today's Visit Sciatica Hip pain-swelling Pain in back What to Do Next Instructions from Your Care Team No qualifying data available. Post Acute Orders No qualifying data available. You Need to Schedule the Following Appointments Follow Up with Your pain management doctor When Within 2-4 days Where: Follow Up with ROSA KEMP MD When Within 2-4 days Where: [address] [place] [phone] Follow Up with Go to emergency room if symptoms worsen When Within 2-4 days Allergies naproxen Medications Please ask your primary doctor or pharmacist before taking any other medication not listed, including over the counter drugs, herbal medications, vitamins and or supplements as they may interact withyour home medications. What How Much When Why [...] and down into the buttock, hip, and leg.Sometimes the leg pain can happen without any back pain. Sciatica happens when a spinal nerve is irritated or has pressure put on it as comes out of the spinal canal in the lower back. This most often happens when a bulge or rupture of a nearby spinal disk presses on the nerve. Sciatica can also becaused by a narrowing of the spinal canal [...] case, muscle spasm often also happens. Muscle spasmmakes the pain worse. A health care provider makes a diagnosis of sciatica from your symptoms and a physical exam. Unlessyou had an injury from a car accident [...] firm mattress is best. Try lying flat onyour back with pillows under your knees. You [...] You will be told of any new findingsthat may affect your care. When to seek medical advice Call your health care provider right away if any of these occur: Pain gets worse even after taking prescribed medicine Weakness or numbness in 1 or both legs or hips Numbness in your groin or genital area You can t control your bowel or bladder Fever Redness or swelling over your back or spine [id number] [employer]. [address] [place] [address]. All rights reserved. This information is not intended as a substitute for professional medical care. Always follow yourhealthcare professional's instructions. Additional Information VACCINATE! IT SAVES LIVES! Members of the community who have not yet received the COVID-19 vaccine and would like to receive it can visit one of [facility] vaccine clinics. There are many vaccine clinic locations within the [facility]. For locations and available times, please visit [email or web address]. It is important to note that some COVID mobile vaccine clinics are held outdoors and may be canceled in rainy orstormy conditions. To learn more about pediatric vaccinations (ages 5-11), we invite you to visit the [facility] webpage. [email or web address]://[email or web address]/pages/[email or web address]-Bkbnrrvkjbg-Extjzfcdlk-Toftx-Lgr stions.htmlTo learn more about the COVID-19 vaccine, we invite you to visit the [employer] website for a list of frequently asked questions. [email or web address]-[email or web address]/axhut-Yoswrjx-Grxmfunyqf _Asked-Questions.pdf [facility] Patient Portal Access Instructions: Stay connected with your healthcare team and access your personal medical information anytime with the [facility] Patient Portal. If you would like a full copy of your medical records please contact the [facility] Medical Records Department Sunday through Sunday between 8a.m. and 4:30p.m. Please follow the directions below to access the portal: 1.Access the email account you provided upon registration to the [facility].2.Look for an invitation email from [facility].3.Open the email and access the invitation link: Accept Invitation to [facility]4.Fill in the required arteaga to create your account. Sign into [email or web address] with your username and password that you [...] you will allow to register on the [facility] Patient Portal for access to your information. You can also access the [facility] Patient Portal on the [employer]. Simply click on Health Records under [employer] and then click on the [facility] logo. HOW TO SAFELY DISPOSE OF PRESCRIPTION MEDICATIONS Please use one of the following methods to safely dispose of your unused medications. 1.Use a drug disposal kit: the drug disposal pouch allows you to safely discard your old and unuseddrugs. Ask your nurse to give you one when you are discharged.2.Visit a local take-back location: Many local pharmacies and police departments have programs that collect old and unwanted prescriptiondrugs. Call your local pharmacy or go to http://bit.[employer]/1Z9Xc9h to find one close to you.3.Make use of household items: Use cat litter or old coffee grounds to dispose medications if other options arenot available. Mix your drugs with these household products, seal them in an airtight container andthrow it into the garbage. Call [facility]: [phone] to be sure your drugs can be [...] drowsiness, such as benzodiazepines, also known as benzos,including diazepam and alprazolam, muscle relaxants or sleep aids. Never sell or share prescriptionopioids. This is illegal. Store opioids in a secure place and out of reach of others (including children, family, friends and visitors). The last page(s) of this document has been signed and retained as a CHART COPY Signatures Patient Education Materials BACK PAIN w/ SCIATICA Medication Leaflets My discharge plan and instructions have been reviewed and explained to me and I,SANDIE BECERRIL understand my current condition and have read and understand these discharge instructions. I have received a written copy of the plan/instructions. If I have questions, I am aware that I should contact my doctor. 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 Sandie Becerril is here for a Depo Provera injection. Patient brought medication. Date last injected: out of range - negative test Depo-Provera, 150 mg, administered IM left upper quadrant gluteus, Lot # [id number], expiration date 07/2023. Depo-Provera was given without incident. Date of last menses: Patient's last menstrual period was 11/14/2019 (approximate). Irregular bleeding - No Menses ceased - No STD prevention discussed: Yes Patient instructed to return to clinic IN 12 WEEKS. [email or web address] Provider Will Jamison was present in office at time of injection. [facility] Dis[facility] Patient Education 12/07/2021 18:19:15 Sciatica Sciatica Sciatica is a condition that causes pain in the lower back that spreads down into the buttock, hip,and leg. Sometimes the leg pain can happen [...] case, muscle spasm often also happens. Muscle spasmmakes the pain worse. A healthcare provider makes a diagnosis of sciatica from your symptoms and a physical exam. Unless you had an injury from a car accident or fall, you usually won t have X-rays taken at this time. This is because the nerves and disks in your back can t be seen on an X-ray. If the provider sees signsof a compressed nerve, you will need to [...] firm mattress is best. Try lying flat onyour back with pillows under your knees. You [...] advised. You may need physical therapy or additionaltests. If X-rays were taken, a radiologist will [...] or swelling over your back or spine 4128-5552 The [employer]. [address] [place] [address], [place] [address]. All rights reserved. This information is not intended as a substitute for professional medical care. Always follow [facility] professional's instructions. 12/07/2021 18:19:09 Back Pain (Acute or Chronic) Back Pain (Acute or Chronic) Back pain is one of the most common problems. The good news is that most people feel better in 1 to2 weeks, and most of the rest in [...] muscles or spine cause the pain. Mechanical problemsare usually caused by an injury to the [...] your side with your knees bent up towardsyour chest and a pillow between your knees. [...] are taking other medicines. You may use xhxq-nbl-cuuacsb medicine as directed on the bottle to control pain, unless another pain medicine was prescribed. If you have chronic conditions like diabetes, liver or kidney disease, stomach ulcers, or gastrointestinal bleeding, or are taking blood thinners, talk to your doctor beforetaking any medicine. Be careful if you are [...] Numbness in the groin or genital area 6034-7379 [employer]. [address] [place] [address]. All rights reserved. This information is not intended as a substitute for professional medical care. Always follow yourhealthcare professional's instructions. Follow Up Care 12/07/2021 17:44:52 With:ROSA KEMP MD Address: [address] [place] [phone]- [phone] When:Within 2 Day(s) Comments:Follow-up with your doctor as scheduled on Sunday.Position of comfort, limit activity as tolerated.Use ice or cool compresses to the painful area for the next 2 days and warm, moist heat thereafter.Continue ibuprofen and Tylenol for pain as needed.Use muscle relaxants (cyclobenzaprine) as prescribed for muscle pain and spasm.Use steroid (prednisone) as prescribed for inflammation.Return to ED if symptoms worsen. [facility] 08-03-2022 Note Discharge Instructions Thank you for allowing [facility] to assist you with your healthcare needs. The following is importantdischarge information regarding your hospital visit. Diagnosis from Today's Visit Low back pain with left sciatica Back pain chronic Hip pain-swelling left chronic What to Do Next Instructions from Your Care Team No qualifying data available. Post Acute Orders No qualifying data available. You Need to Schedule the Following Appointments Follow Up with ROSA KEMP MD When In 2 days Why: Follow-up [...] Return to ED if symptoms worsen. Where: [address] [place] [phone] Allergies naproxen Medications Please ask your primary doctor or pharmacist before taking any other medication not listed, including over the counter drugs, herbal medications, vitamins and or supplements as they may interact [facility] home medications. What How Much When Why [...] back that spreads down into the buttock, hip,and leg. Sometimes the leg pain can happen [...] case, muscle spasm often also happens. Muscle spasmmakes the pain worse. A healthcare provider makes a diagnosis of sciatica from your symptoms and a physical exam. Unless you had an injury from a car accident or fall, you usually won t have X-rays taken at this time. This is because the nerves and disks in your back can t be seen on an X-ray. If the provider sees signsof a compressed nerve, you will need to [...] firm mattress is best. Try lying flat onyour back with pillows under your knees. You [...] advised. You may need physical therapy or additionaltests. If X-rays were taken, a radiologist will [...] or swelling over your back or spine 8231-2018 [employer]. [address] [place] [address], [place] [id number]. All rights reserved. This information is not intended as a substitute for professional medical care. Always follow yourhealthcare professional's instructions. Back Pain (Acute or Chronic) Back pain is one of the most common problems. The good news is that most people feel better in 1 to2 weeks, and most of the rest in [...] muscles or spine cause the pain. Mechanical problemsare usually caused by an injury to the [...] your side with your knees bent up towardsyour chest and a pillow between your knees. [...] are taking other medicines. You may use yeck-lqi-tzsfqbf medicine as directed on the bottle to control pain, unless another pain medicine was prescribed. If you have chronic conditions like diabetes, liver or kidney disease, stomach ulcers, or gastrointestinal bleeding, or are taking blood thinners, talk to your doctor beforetaking any medicine. Be careful if you are [...] Numbness in the groin or genital area 4519-4367 [employer]. [address] [place] [address], [place] [address]. All rights reserved. This information is not intended as a substitute for professional medical care. Always follow yourhealthcare professional's instructions. Additional Information VACCINATE! IT SAVES LIVES! Members of the community who have not yet received the COVID-19 vaccine and would like to receive it can visit one of [facility] vaccine clinics. There are many vaccine clinic locations within the [facility]. For locations and available times, please visit [email or web address]. It is important to note that some COVID mobile vaccine clinics are held outdoors and may be canceled in rainy orstormy conditions. To learn more about pediatric vaccinations (ages 5-11), we invite you to visit the [facility] webpage. https://www.[email or web address]/pages/3477-Tnydh-Vqrcakjiylc-Jfnltgzzly-Pepef-Qve stions.htmlTo learn more about the COVID-19 vaccine, we invite you to visit the [facility] website for a list of frequently asked questions. [email or web address]-[email or web address]/wvkfp-Tgxgjhy-[email or web address] _Asked-Questions.pdf [facility] [employer] Patient Portal Access Instructions: Stay connected with your healthcare team and access your personal medical information anytime with the [facility] Patient Portal. If you would like a full copy of your medical records please contact the [facility] Medical Records Department Sunday through Sunday between 8a.m. and 4:30p.m. Please follow the directions below to access the portal: 1.Access the email account you provided upon registration to the hospital.2.Look for an invitation email from [facility].3.Open the email and access the invitation link: Accept Invitation to [facility]4.Fill in the required arteaga to create your account. Sign into [email or web address] with your username and password that you [...] you will allow to register on the [facility] Patient Portal for access to your information. You can also access the [facility] Patient Portal on the [facility] nat. Simply click on Health Records under Lum[employer]it and then click on the [facility] logo. HOW TO SAFELY DISPOSE OF PRESCRIPTION MEDICATIONS Please use one of the following methods to safely dispose of your unused medications. 1.Use a drug disposal kit: the drug disposal pouch allows you to safely discard your old and unuseddrugs. Ask your nurse to give you one when you are discharged.2.Visit a local take-back location: Many local pharmacies and police departments have programs that collect old and unwanted prescriptiondrugs. Call your local pharmacy or go to http://[employer]/0O0If7y to find one close to you.3.Make use of household items: Use cat litter or old coffee grounds to dispose medications if other options arenot available. Mix your drugs with these household products, seal them in an airtight container andthrow it into the garbage. Call [facility]: [phone] to be sure your drugs can be [...] drowsiness, such as benzodiazepines, also known as benzos,including diazepam and alprazolam, muscle relaxants or sleep aids. Never sell or share prescriptionopioids. This is illegal. Store opioids in a secure place and out of reach of others (including children, family, friends and visitors). The last page(s) of this document has been signed and retained as a CHART COPY Signatures Patient Education Materials Sciatica Back Pain (Acute or Chronic) Medication Leaflets My discharge plan and instructions have been reviewed and explained to me and I,SANDIE BECERRIL understand my current condition and have read and understand these discharge instructions. I have received a written copy of the plan/instructions. If I have questions, I am aware that I should contact my doctor. 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 The reddened areas havea visible border. An open sore may leak [...] or higher after 2 days on antibiotics 3439-7218 [employer]. [address] [place] [address]. All rights reserved. This information is not intended as a substitute for professional medical care. Always follow yourhealthcare professional's instructions. Follow Up Care 11/20/2021 10:01:24 With:ROSA KEMP MD Address: [address] [place] [address] [place] [address]- [phone] When:2-4 days [facility] 07-17-2022 Emergency department Discharge summary Discharge Instructions Thank you for allowing [facility] to assist you with your healthcare needs. The following is importantdischarge information regarding your hospital visit. Diagnosis from Today's Visit Cellulitis Skin problem What to Do Next Instructions from Your Care Team No qualifying data available. Post Acute Orders No qualifying data available. You Need to Schedule the Following Appointments Follow Up with ROSA KEMP MD When Within 2-4 days Where: [address] [place] [address] [address] [place] [address] [phone] Allergies naproxen Medications Please ask your primary doctor or pharmacist before taking any other medication not listed, including over the counter drugs, herbal medications, vitamins and or supplements as they may interact withur home medications. What How Much When Why [...] eye infections, gonorrhea, chlamydia, periodontitis (gum disease), andothers. Doxycycline is also used to treat blemishes, [...] effective. Ask your doctor about using a non-hormonalbirth control (condom, diaphragm with spermicide) to prevent [...] or life-threatening conditions such as anthrax or Buckman spotted fever. The benefit of treating a [...] provided, or with a special dose-measuring spoon ormedicine cup. If you do not have a [...] reaction (fever, sore throat, burning in your eyes,skin pain, red or purple skin rash that spreads and causes blistering and peeling). Seek medical treatment if you have a serious drug reaction that can affect many parts of your body.Symptoms may include: skin rash, fever, swollen glands, flu- like symptoms, muscle aches, severe weakness, unusual bruising, [...] may report side effects to FDA at [phone]-VLA-4058. What other drugs will affect doxycycline? Sometimes it is not safe to use certain medications at the same time. Some drugs can affect your blood levels of other drugs you take, which may increase side effects or make the medications less effective. Other drugs may affect doxycycline, including prescription and bdvo-tcl-ptfpcvn medicines, vitamins, and herbal products. Tell your [...] to ensure that the information provided by [employer]. ('[employer]') is accurate, up-to-date, and complete, but no guarantee is made to that effect. Drug information contained herein may be time sensitive. [employer] information has been compiled for use by healthcare practitioners and consumers in the [place] and therefore [employer] does not warrant that uses outside of the [place] are appropriate, unless specifically indicated otherwise. [employer] drug information does not endorse drugs, diagnose patients or recommend therapy. [employer] drug information isan informational resource designed to assist licensed healthcare practitioners in caring for their p atients and/or to serve consumers viewing this service as a supplement to, and not a substitute for, the expertise, skill, knowledge and judgment of healthcare practitioners. The absence of a warningfor a given drug or drug combination in no way should be construed to indicate that the drug or drug combination is safe, effective or appropriate for any given patient. [employer] does not assume any responsibility for any aspect of healthcare administered with the aid of information [employer] provides. The information contained herein is not intended to cover all possible uses, directions, precautions, warnings, drug interactions, allergic reactions, or adverse effects. If you have questions about the drugs you are taking, check with your doctor, nurse or pharmacist. Copyright 4004-8800 [employer]. Version: .. Revision Date: 03/10/2020. Education Materials Cellulitis Cellulitis [...] swollen, warm, and sore. The reddened areas havea visible border. An open sore may leak [...] or higher after 2 days on antibiotics 5200-3252 [employer]. [address] [place] [address]. All rights reserved. This information is not intended as a substitute for professional medical care. Always follow yourhealthcare professional's instructions. Additional Information VACCINATE! IT SAVES LIVES! Members of the community who have not yet received the COVID-19 vaccine and would like to receive it can visit one of [facility] vaccine clinics. There are many vaccine clinic locations within the [facility]. For locations and available times, please visit [email or web address]. It is important to note that some COVID mobile vaccine clinics are held outdoors and may be canceled in rainy orstormy conditions. To learn more about pediatric vaccinations (ages 5-11), we invite you to visit the [facility] webpage. https://www.[email or web address]/pages/[email or web address]-Jnowv-Okbnqpjuwwg-Vglmdirxhs-Fyejt-Mzt stions.htmlTo learn more about the COVID-19 vaccine, we invite you to visit the [facility] website for a list of frequently asked questions. https://bird in [facility]/assets/Fydsjpgn-lgz-Efdkcxpe/bjwgm-Jmmyyjg-Dhvygmutap _Asked-Questions.pdf [facility] Patient Portal Access Instructions: Stay connected with your healthcare team and access your personal medical information anytime with the [facility] Patient [facility]. If you would like a full copy of your medical records please contact the [facility] Medical Records Department Sunday through Sunday between 8a.m. and 4:30p.m. Please follow the directions below to access the portal: 1.Access the email account you provided upon registration to the [facility].2.Look for an invitation email from [facility].3.Open the email and access the invitation link: Accept Invitation to [facility] [employer]4.Fill in the required arteaga to create your [...] you will allow to register on the [facility]bleTri[facility] Patient Portal for access to your information. You can also access the [facility] Patient Portal on the [facility] nat. Simply click on Health Records under [employer] and then click on the [facility] logo. HOW TO SAFELY DISPOSE OF PRESCRIPTION MEDICATIONS Please use one of the following methods to safely dispose of your unused medications. 1.Use a drug disposal kit: the drug disposal pouch allows you to safely discard your old and unuseddrugs. Ask your nurse to give you one when you are discharged.2.Visit a local take-back location: Many local pharmacies and police departments have programs that collect old and unwanted prescriptiondrugs. Call your local pharmacy or go to http://bit.ly/4H4Di7h to find one close to you.3.Make use of household items: Use cat litter or old coffee grounds to dispose medications if other options arenot available. Mix your drugs with these household products, seal them in an airtight container andthrow it into the garbage. Call [facility]: [phone] to be sure your drugs can be [...] drowsiness, such as benzodiazepines, also known as benzos,including diazepam and alprazolam, muscle relaxants or sleep aids. Never sell or share prescriptionopioids. This is illegal. Store opioids in a [...] aware that I should contact my doctor. Patient/Pharmacy Graduate Intern Signature: Date/Time: Relationship to Patient: Witness Name/Signature: Date/Time: [facility] Keyshawnvinicius VenturaXhjbnexi55-06-1927 Hospital Discharge instructions Patient Education 10/10/2021 18:09:10 Ankle Sprain [...] ligament is forced to stretch more than thenormal amount. A severe sprain can actually tear [...] cast boot or air splint. This will dependon the grade of ankle sprain that you have. Home care For a Grade 1 sprain, use RICE (rest, ice, compression, and elevation): Rest your ankle. Don t walk on it. Ice should be used right away to help control swelling. Place an ice pack over the injured area for20 minutes. Do this every 3 to 6 [...] As the ice melts, be careful that thecast, bandage, or splint doesn t get wet. If you have a boot, open it to apply an ice pack, unless told otherwise by your provider. Compression devices help to control swelling. They also keep the ankle from moving and support yourinjured ankle. These devices include dressings, bandages, and wraps. Elevate or raise your ankle above the level of your heart when sitting or lying down. This is very important for the first 48 hours. Follow the RICE guidelines for a Grade 2 sprain. This type of sprain will take longer to heal. Yourprovider may have you wear a splint, cast, [...] several times a day. You can do thiswith a heating pad or warm compress. Or you may want to go back and forth between using ice and heat. Never apply heat directly to the skin. Always wrap the heating pad or warm compress in a clean, thin towel or cloth. You may use mluo-caf-rsseikm pain medicine (NSAIDS or nonsteroidal anti- inflammatory drugs) to control pain, unless another pain [...] broken bones, breaks, or fractures. Sometimes fractures dont show up on the first X-ray. Bruises [...] or is irritated You re-injure your ankle 6985-9840 [employer]. [address] [place] [address]. All rights reserved. This information is not intended as a substitute for professional medical care. Always follow yourhealthcare professional's instructions. Follow Up Care 10/10/2021 17:17:00 With:ROSA KEMP MD Address: [address] [place] [phone] When:2-4 days [facility] 05-03-2022 History of Present illness Narrative* Rebecca Alexis LPN - 09/06/2021 3:32 PM EDT Schedule for Gardasil injections: Routine schedule is [...] tab for lot #, expiration date. Angelina Bartlett CNP present in office at time of administration Rebecca Alexis LPN * Angelina Bartlett APRN.ANNE - 09/06/2021 3:01 PM EDT Sandie is a 30 year old who [...] L1 SAB0 IAB0 Ectopic0 Multiple0 Live Births1 Facilities Coordinator History LMP: 11/14/2019 (Approximate), Drug Induced Amenorrhea Age at Menarche: Age at First : Age at Menopause: Facilities Coordinator History Comments: Sexual Activity: Yes; No partner [...] external genitalia normal, normal Bartholin's glands, urethra, Colusa's glands, no vulvar lesions, no cervical lesions, [...] one year or sooner as needed Angelina Bartlett APRN.ANNE [facility]* Patient Instructions* Angelina Bartlett APRN.CNP - 09/06/2021 3:18 PM EDT Gardasil Gardasil is a vaccine to protect against Human Papillomavirus (HPV) types 6, 11, 16, 18, 31,33,45, 52, 58. These viruses cause cancer and precancerous lesions on the cervix (opening between vagina and uterus), in the vagina and on the vulva (skin around the outside of the vagina) as well as genitalwarts. The vaccine cannot cause these diseases and [...] at 0 and 8 months. In ages 15- 45, three injections are given at 0,2,6 months. Common side effects include pain, redness, itching and swelling at the injection site, nausea, fever, dizziness and fainting. Rare but potentially serious reactions have been reported. These include allergic reaction, swollen glands, joint and muscle pain, weakness and Guillain-[place] syndrome. HUMAN PAPILLOMAVIRUS (HPV) What is HPV [...] involving genital contact could get genital HPV. Becausemany people who have HPV may not show [...] HPV during their teens and 20's. The [employer] estimated that in 2005 there were 10,370 new cases of cervical cancer diagnosed in the [place], and 3,710 women from the disease. HOW DO I KNOW IF I HAVE CERVICAL CANCER ? The usual way to detect cervical cancer is through a Pap test.If the results of a Pap test indicatethat you have abnormal cervical cells, it's important [...] cells in the lining of the cervix thathave changed in appearance. The more severe the [...] almost always prevent cervical cancer from developing inthe future. Methods commonly used to treat abnormal [...] may still be present. [facility] Hospital Discharge instructions Patient Education 09/05/2021 18:11:29 Lower Extremity Contusion Lower Extremity Contusion You have a contusion (bruise) of a lower extremity (leg, knee, ankle, foot, or toe). Symptoms include pain, swelling, and skin discoloration. No bones are broken. This injury may take from a few daysto a few weeks to heal. During that time, the bruise may change from reddish in color, to purple-blue, to green- yellow, to yellow-brown. Home care Unless another medicine was prescribed, you can take acetaminophen, ibuprofen, or naproxen to control pain. (If you have chronic liver or kidney disease or ever had a stomach ulcer or gastrointestinal bleeding, talk with your doctor before using these medicines.) Elevate the injured area to reduce pain and swelling. As much as possible, sit or lie down with theinjured area raised about the level of your heart. This is especially important during the first 48hours. Ice the injured area to help reduce pain and swelling. Wrap a cold source (ice pack or ice cubes travis plastic bag) in a thin towel. Apply [...] full weight and impact on the injured legwithout pain. Follow up Follow up with your [...] injured area. Frequent bruising for unknown reasons [id number] [employer]. [address] [place] [address]. All rights reserved. This information is not intended as a substitute for professional medical care. Always follow yourhealthcare professional's instructions. Follow Up Care 09/05/2021 17:50:11 With:ROSA KEMP MD Address: [address] [place] [phone] When:2-4 days [facility] 04-19-2022 History of Present illness Narrative* Haydee Lord RN - 08/23/2021 9:08 AM EDT Patient identified by name and date of . Sandie Becerril is here for a Depo Provera injection. Patient brought medication. Date last injected: 06/01/2021 Depo-Provera, 150 mg, administered IM rightupper quadrant gluteus, Lot # [id number], expiration date 12/03/2022. Depo-Provera was given without incident. Date of last menses: Patient's last menstrual period was 11/14/2019 (approximate). Irregular bleeding - No Menses ceased - Yes STD prevention discussed: Yes Patient instructed to return to clinic on 12 weeks [email or web address] Provider Yaquelin Gaston. was present in office at time of injection. Haydee Lord RN documented [facility] Hospital Discharge instructions Patient Education 06/25/2021 18:34:49 Back Exercises, [...] floor and hold for up to 5 seconds.Repeat 10 times on each side. Standin. Wall squats: Stand with your back against the wall. Move your feet about 12 inches away from thewall. Tighten your stomach muscles, and slowly bend [...] knees. At the same time, raise and straightenyour right arm and left leg until they are parallel to the ground. Hold for 2 seconds and come backslowly to a starting position. Repeat with left [...] both legs a few inches off the floorat the same time. Hold for 5 seconds [...] the ground (this is not a full sit- up). Keep your head in line with your body (don t bend your neck forward). Hold for 2 seconds, then slowly lower. [id number] [employer]. [address] [place] [address]. All rights reserved. This information is not intended as a substitute for professional medical care. Always follow yourhealthcare professional's instructions. 06/25/2021 18:34:47 Back Care Tips [...] strengthening both the back muscles and the abdominalmuscles will provide better support for your spine. Swimming and brisk walking are good overall exercises to improve your fitness level. Practice safe lifting methods (below). Practice good posture when sitting, standing and walking. Avoid prolonged sitting. This puts more stress on the lower back than standing or walking. Wear quality shoes with sufficient arch support. Foot and ankle alignment can affect back symptoms.Women should avoid wearing high heels. Therapeutic massage [...] that bend your neck to one side. Puta pillow between your legs to further relax your lower back. If you sleep on your back, put pillowsunder your knees to support your legs in [...] be reviewed by a radiologist. You will benotified of any new findings that may affect [...] or legs Numbness in the groin area [id number] [employer]. [address] [place] [address]. All rights reserved. This information is not intended as a substitute for professional medical care. Always follow yourhealthcare professional's instructions. Follow Up Care 06/25/2021 18:26:41 With:ROSA KEMP MD Address: [address] [place] [phone] When:2-4 days [facility] Evaluation + Plan note No data available for this section [facility] evaluation + Plan note Future Appointments Appointment Date:09/02/2024 09:00:00 AM Scheduled Provider:Apolinar Rivera PT Location:[facility] Appointment Type:PT Outpatient Evaluation [facility] evaluation note* Diagnosis Encounter for management and injection of depo-Provera- Primary Surveillance of other previously prescribed contraceptive method [facility] Diagnosis Encounter for gynecological examination (general) (routine) without abnormal findings- Primary Need for prophylactic vaccination/inoculation against viral disease Need for prophylactic vaccination and inoculation against other viral diseases Genital herpes simplex, unspecified site [facility]* Diagnosis Onset Date Resolution Status Acute upper respiratory infection acute Contact with or suspected ex posure to other viral communicable disease acute Bilateral sacroiliitis acute Acute maxillary sinusitis, unspecified acute Encounter for screening for COVID-19 acute Left ankle sprain acute Chronic left sacroiliac joint pain [facility] Work Phone: Evaluation note* Diagnosis Encounter for management and injection of depo-Provera- Primary Surveillance of other previously prescribed contraceptive method documented in this encounter [facility] note* Diagnosis Onset Date Resolution Status Left ankle sprain acute 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 [facility] Work Phone: Evaluation note* Diagnosis Onset Date Resolution Status Left ankle sprain acute 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 [facility] Work Phone: Evaluation note* Diagnosis Onset Date Resolution Status 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 Lumbar radiculopathy chronic Contact with and (suspected) exposure to other viral communicable diseases acute URI (upper respiratory infection) acute [facility] Work Phone: Evaluation note* Diagnosis Onset Date Resolution Status 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 Lumbar radiculopathy chronic Contact with and (suspected) exposure to other viral communicable diseases acute URI (upper respiratory infection) acute Bipolar disorder chronic Acute cystitis noneactive Influenza A acute [facility] Work Phone: Evaluation note* Diagnosis Surveillance for Depo-Provera contraception- Primary Surveillance of other previously prescribed contraceptive method Encounter for management and injection of depo-Provera Surveillance of other previously prescribed contraceptive method [facility] Diagnosis Onset Date Resolution Status Contact with and (suspected) exposure to other viral communicable diseases acute URI (upper respiratory infection) acute Bipolar disorder chronic Acute cystitis noneactive Influenza A acute Acute pharyngitis acute Contact with and (suspected) exposure to other viral communicable diseases acute Migraines chronic [facility] Work Phone: Evaluation note* Diagnosis Onset Date Resolution Status Influenza A acute Acute pharyngitis acute Contact with and (suspected) exposure to other viral communicable diseases acute Migraines chronic Lumbosacral facet joint syndrome acute Pain, dental noneactive [facility] Work Phone: Evaluation note* Diagnosis Onset Date Resolution Status Acute pharyngitis acute Contact with and (suspected) exposure to other viral communicable diseases acute Migraines chronic Lumbosacral facet joint syndrome acute Pain, dental noneactive Dental infection acute [facility] Work Phone: Evaluation note* Diagnosis Acute cystitis with hematuria- Primary Acute cystitis Dysmenorrhea Encounter for surveillance of other contraceptive [facility] Encounter for management and injection of depo-Provera- Primary Surveillance of other previously prescribed contraceptive method [facility]* Diagnosis Pain in joint, multiple sites [facility]* Diagnosis Pain in joint, multiple sites- Primary Vitamin D deficiency Unspecified vitamin D deficiency Low back pain, unspecified back pain laterality, unspecified chronicity, unspecified whether sciatica present [facility]* Diagnosis Pain in joint, multiple sites [facility] Diagnosis Chronic bilateral low back pain with left-sided sciatica- Primary Pain in joint, multiple sites [facility]* Diagnosis Encounter for management and injection of depo-Provera- Primary Surveillance of other previously prescribed contraceptive method [facility]* Diagnosis Genital herpes simplex, unspecified site [facility] Diagnosis Encounter for gynecological examination (general) (routine) without abnormal findings- Primary Screening for cervical cancer Screening for malignant neoplasm of the cervix Encounter for screening for human papillomavirus (HPV) Special screening examination for human papillomavirus (HPV) Screen for STD (sexually transmitted disease) Screening examination for venereal disease Other migraine without status migrainosus, not intractable Bipolar 1 disorder (HCC) Bipolar I disorder, most recent episode (or current) unspecified Mild intermittent asthma without complication Unspecified asthma [facility]* Diagnosis Acute pain of left knee [facility]* Diagnosis Encounter for Depo-Provera contraception- Primary Surveillance of other previously prescribed contraceptive method [facility]* Diagnosis Genital herpes simplex, unspecified site [facility] Additional Instructions Seek medical attention if any new or worsening of symptoms.[facility] Work Phone: Hospital Discharge instructions Additional Instructions Stop the nitrofurantoin. Start the Bactrim.[facility] Work [facility]: Hospital Discharge instructions Additional Instructions You may take Imodium as needed for your diarrheaWooster [facility] Work [facility]: Hospital Discharge instructions No data available for this section [facility] Progress note No data available for this section [facility] Reason for referral (narrative)* Diagnostic Procedure Only (Routine) - Closed Specialty Diagnoses / Procedures Referred By Contac t Referred To Contact XR IMAGING Diagnoses Pain in joint, multiple sites Procedures XR HIP BILATERAL 5V PEL/AP/LAT EACH HIP RADEX HIPS BILATERAL WITH PELVIS MINIMUM 5 VIEWS Lis Freedman MD [address] [facility] [address] [place] [address] [place] [address] Referral ID Status Reason Start Date Expiration Date V isits Requested Visits Authorized [id number] Closed Auto-Generate d Referral 06/18/2023 07/17/2024 1 1 * Diagnostic Procedure Only (Routine) - Closed Specialty Diagnoses / Procedures Referred By Contac t Referred To Contact XR IMAGING Diagnoses Pain in joint, multiple sites Procedures XR SACROILIAC JOINTS 2V AP PELVIS/FERGUESON RADIOLOGIC EXAMINATION SACROILIAC JNTS <3 VIEWS Lis Freedman MD [address] [place] [address] [place] [address] Referral ID Status Reason Start Date Expiration Date V isits Requested Visits Authorized [id number] Closed Auto-Generate d Referral 06/18/2023 07/17/2024 1 1 * Diagnostic Procedure Only (Routine) - Closed Specialty Diagnoses / Procedures Referred By Contac t Referred To Contact XR IMAGING Diagnoses Pain in joint, multiple sites Procedures XR LUMBAR GENERAL 3V AP/LAT/L5-S1 RADEX SPINE LUMBOSACRAL 2/3 VIEWS Lis Freedman MD [address] [place] [address] [place] [address] Referral ID Status Reason Start Date Expiration Date V isits Requested Visits Authorized [id number] Closed Auto-Generate d Referral 06/18/2023 07/17/2024 1 1 * Diagnostic Procedure Only (Routine) - Closed Specialty Diagnoses / Procedures Referred By Contac t Referred To Contact XR IMAGING Diagnoses Pain in joint, multiple sites Procedures XR KNEE SURVEY ARTHRITIS 1V AP BILATERAL RADIOLOGIC EXAM BOTH KNEES STANDING ANTEROPOST Lis Freedman MD [address] [place] [address] [place] [address] Referral ID Status Reason Start Date Expiration Date V isits Requested Visits Authorized [id number] Closed Auto-Generate d Referral 06/18/2023 07/17/2024 1 1 * Diagnostic Procedure Only (Routine) - Closed Specialty Diagnoses / Procedures Referred By Contac t Referred To Contact XR IMAGING Diagnoses Pain in joint, multiple sites Procedures XR HAND GENERAL 3V PA/LAT/OBL RIGHT RADEX HAND MINIMUM 3 VIEWS Lis Freedman MD [address] [place] [address] [place] [address] Referral ID Status Reason Start Date Expiration Date V isits Requested Visits Authorized [id number] Closed Auto-Generate d Referral 06/18/2023 07/17/2024 1 1 * Diagnostic Procedure Only (Routine) - Closed Specialty Diagnoses / Procedures Referred By Contac t Referred To Contact XR IMAGING Diagnoses Pain in joint, multiple sites Procedures XR HAND GENERAL 3V PA/LAT/OBL LEFT RADEX HAND MINIMUM 3 VIEWS Lis Freedman MD [address] [place] [address] [place] [address] Referral ID Status Reason Start Date Expiration Date V isits Requested Visits Authorized [id number] Closed Auto-Generate d Referral 06/18/2023 07/17/2024 1 [facility] Diagnostic Procedure Only (Routine) - Closed Specialty Diagnoses / Procedures Referred By Contac t Referred To Contact XR IMAGING Diagnoses Pain in joint, multiple sites Procedures XR HIP BILATERAL 5V PEL/AP/LAT EACH HIP RADEX HIPS BILATERAL WITH PELVIS MINIMUM 5 VIEWS Lis Freedman MD [address] [place] [address] [place] [address] Referral ID Status Reason Start Date Expiration Date V isits Requested Visits Authorized [id number] Closed Auto-Generate d Referral 06/18/2023 07/17/2024 1 1 * Diagnostic Procedure Only (Routine) - Closed Specialty Diagnoses / Procedures Referred By Contac t Referred To Contact XR IMAGING Diagnoses Pain in joint, multiple sites Procedures XR SACROILIAC JOINTS 2V AP PELVIS/FERGUESON RADIOLOGIC EXAMINATION SACROILIAC JNTS <3 VIEWS Lis Freedman MD [address] [place] [address] [place] [address] Referral ID Status Reason Start Date Expiration Date V isits Requested Visits Authorized [id number] Closed Auto-Generate d Referral 06/18/2023 07/17/2024 1 1 * Diagnostic Procedure Only (Routine) - Closed Specialty Diagnoses / Procedures Referred By Contac t Referred To Contact XR IMAGING Diagnoses Pain in joint, multiple sites Procedures XR LUMBAR GENERAL 3V AP/LAT/L5-S1 RADEX SPINE LUMBOSACRAL 2/3 VIEWS Lis Freedman MD [address] [place] [address] [place] [address] Referral ID Status Reason Start Date Expiration Date V isits Requested Visits Authorized [id number] Closed Auto-Generate d Referral 06/18/2023 07/17/2024 1 1 * Diagnostic Procedure Only (Routine) - Closed Specialty Diagnoses / Procedures Referred By Contac t Referred To Contact XR IMAGING Diagnoses Pain in joint, multiple sites Procedures XR KNEE SURVEY ARTHRITIS 1V AP BILATERAL RADIOLOGIC EXAM BOTH KNEES STANDING ANTEROPOST Lis Freedman MD [address] [place] [address] [place] [address] Referral ID Status Reason Start Date Expiration Date V isits Requested Visits Authorized [id number] Closed Auto-Generate d Referral 06/18/2023 07/17/2024 1 1 * Diagnostic Procedure Only (Routine) - Closed Specialty Diagnoses / Procedures Referred By Contac t Referred To Contact XR IMAGING Diagnoses Pain in joint, multiple sites Procedures XR HAND GENERAL 3V PA/LAT/OBL RIGHT RADEX HAND MINIMUM 3 VIEWS Lis Freedman MD [address] [place] [address] [place] [address] Referral ID Status Reason Start Date Expiration Date V isits Requested Visits Authorized [id number] Closed Auto-Generate d Referral 06/18/2023 07/17/2024 1 1 * Diagnostic Procedure Only (Routine) - Closed Specialty Diagnoses / Procedures Referred By Contac t Referred To Contact XR IMAGING Diagnoses Pain in joint, multiple sites Procedures XR HAND GENERAL 3V PA/LAT/OBL LEFT RADEX HAND MINIMUM 3 VIEWS Lis Freedman MD [address] [place] [address] [place] [address] Referral ID Status Reason Start Date Expiration Date V isits Requested Visits Authorized [id number] Closed Auto-Generate d Referral 06/18/2023 07/17/2024 1 1 * Transition of Care (Routine) - Ref Not Required Specialty Diagnoses / Procedures Referred By Contac t Referred To Contact Pain Management Diagnoses Pain in joint, multiple sites Procedures CONSULT TO PAIN MGT Lis Freedman MD [address] [facility] [address] [place] [address] Referral ID Status Reason Start Date Expiration Date Visits Requested Visits Authorized [id number] Ref Not Required PCP Requested Referral 06/18/2023 2023 3 3 [facility] for referral (narrative)* Diagnostic Procedure Only (Urgent) - Closed Specialty Diagnoses / Procedures Referred By Radha clemente Referred To Contact XR IMAGING Diagnoses Acute pain of left knee Procedures XR KNEE GENERAL 4V AP BOTH/PA BOTH/LAT/MERC LEFT RADIOLOGIC EXAM KNEE COMPLETE 4/MORE VIEWS Vernon Calvin APRN.GRAPE CRUSHER [address] [place] [address] [place] [address] Referral ID Status Reason Start Date Expiration Date V isits Requested Visits Authorized [id number] Closed Auto-Generate d Referral 05/30/2023 06/28/2024 1 1 [facility] for visit Narrative* Outpatient Procedure (Routine) - Closed Specialty Diagnoses / [facility]erred To Contact Radiology / [facility] Diagnoses Chronic viral hepatitis C us liver elastography, order to be faxed by [email or web address] Procedures LIVER ELASTOGRAPHY W/O IMAG W/I&R US ELASTOGRAPHY Austin Casey MD [address] [place] [address] [facility] [address] [place] [address] Referral ID Status Reason Start Date Expiration Date Visits Re quested Visits Authorized [id number] Closed 11/29/2022 05/06/2023 1 1 [facility] for visit Narrative* Outpatient Procedure (Routine) - Closed Specialty Diagnoses / Procedures Referred By Contac t Referred To Contact Radiology / [facility] Diagnoses Chronic viral hepatitis C liver elastography, order stacy faxed, Procedures US ABDOMINAL REAL TIME W/IMAGE DOCUMENTATION US ABDOMEN COMPLETE Austin Casey MD [address] [facility] [place] [address] Radio [facility] [address] [place] [address] Referral ID Status Reason Start Date Expiration Date Visits Re quested Visits Authorized [id number] Closed 11/29/2022 05/06/2023 1 1 [facility] for visit Narrative* Diagnostic Procedure Only (Routine) - Closed Specialty Diagnoses / Procedures Referred By Contac t Referred To Contact XR IMAGING Diagnoses Pain in joint, multiple sites Procedures XR HIP BILATERAL 5V PEL/AP/LAT EACH HIP RADEX HIPS BILATERAL WITH PELVIS MINIMUM 5 VIEWS Lis Freedman MD [address] [facility] [address] [place] [address] [place] [address] Referral ID Status Reason Start Date Expiration Date V isits Requested Visits Authorized [id number] Closed Auto-Generate d Referral 06/18/2023 07/17/2024 1 1 [facility] for visit Narrative* Diagnostic Procedure Only (Urgent) - Closed Specialty Diagnoses / Procedures Referred By Contac t Referred To Contact XR IMAGING Diagnoses Acute pain of left knee Procedures XR KNEE GENERAL 4V AP BOTH/PA BOTH/LAT/MERC LEFT RADIOLOGIC EXAM KNEE COMPLETE 4/MORE VIEWS Vernon Calvin APRN.GRAPE CRUSHER [address] [place] [address] [place] [address] Referral ID Status Reason Start Date Expiration Date V isits Requested Visits Authorized [id number] Closed Auto-Generate d Referral 05/30/2023 06/28/2024 1 1 [facility] Medications Administered Section Active Administered Medications - [...] 4:41 PM EDT 150 mg Buttocks, Left Given 08/23/2021 9:18 AM EDT 150 mg Bu ttocks, Right Active Administered Medications - up to 3 most recent administrations Medication Order MAR Action Action Dose Rate Site medroxyPROGESTERone 150 mg injection (DEPO-PROVERA) 150 mg, INTRAMUSCULAR, EVERY 12 WEEKS, 4 doses, First dose on Sun08/23/21 at 0930, Last dose on Sun05/02/22 at 0930, Hazardous Potential Reproductive Risk Drug: Use appropriate PPE. Given 05/24/2022 11:14 AM EST 150 mg Buttocks, Right Given 01/06/2022 4:41 PM EDT 150 mg Bu ttocks, Left Given 08/23/2021 9:18 AM EDT 150 mg Bu ttocks, Right Active Administered Medications - up to [...] 12 WEEKS, 4 doses, First dose on Mayuri 12/07/22 at 1500, Last dose on Mayuri 08/16/23 at 1500, Hazardous Potential Reproductive Risk Drug: Use appropriate PPE. 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 Advance Directive(s) 05/19/2017 7:13 PM Advance Directive Response Recorded Date/ Time Living Will No December 11, 2021 3:21pm Power of [place] Burner Operator No December 11 3:21pm Advance Directive Response Recorded Date/ Time Living Will No January 18, 2022 4:31pm Power of [place] Burner Operator No January 4:31pm Advance Directive Response Recorded Date/ Time Living Will No March 01 2:41pm Power of [place] Burner Operator No March 01, 2022 2:41pm Advance Directive Response Recorded Date/ Time Living Will No March 17, 2 022 5:52pm Power of [place] Burner Operator No March 17, 2022 5:52pm Advance Directive Response Recorded Date/ Time Living Will No March 20, 2 022 6:39pm Power of [place] Burner Operator No March 20, 2022 6:39pm Advance Directive Response Recorded Date/ Time Living Will No April 21, 2 11:14am Power of [place] Burner Operator No April 21, 2022 11:14am Advance Directive Response Recorded Date/ Time Living Will No May 06, 2 022 2:23pm Power of [place] Burner Operator No May 06, 2022 2:23pm Advance Directive Response Recorded Date/ Time Living Will No June 10 7:07pm Power of [place] Burner Operator No June 10, 2022 7:07pm Advance Directive Response Recorded Date/ Time Living Will No July 21, 2022 10:06am Power of [employer] [place] Burner Operator No July 21 10:06am Advance Directive Response Recorded Date/ Time Living Will No August 14, 2022 7:46pm Power of [employer] [place] Burner Operator No August 14 7:46pm Chief Complaint and Reason for Visit Chief Complaint COUGH/DRAINAGE/CONGE STION/COVID TEST Lumbar spine 2nd VISIT/COLD/FLU LIKE SYSMPTOMS SPRANGED ANKLE Lumbar spine BACK PAIN, IN NEED OF MEDICATION back/leg pain Reason for Visit Acute upper respirat ory infection Contact with or suspected exposure to other viral communicable disease Bilateral sacroiliitis Acute maxillary sinusitis, unspecified Encounter for screening for COVID-19 Left ankle sprain Chronic left sacroiliac joint pain Chief Complaint SPRANGED ANKLE Lumbar spine BACK PAIN, IN NEED OF MEDICATION back/leg pain BACK PAIN, SHOOTING INTO LEG LUMBAR RAD Reason for Visit Left ankle sprain Chronic left sacroiliac joint pain Chronic left sacroiliac joint pain Chronic left sacroiliac joint pain Chief Complaint SPRANGED ANKLE Lumbar spine BACK PAIN, IN NEED OF MEDICATION back/leg pain BACK PAIN, SHOOTING INTO LEG LUMBAR RAD lumber spine BACK PAIN Reason for Visit Left ankle sprain Chronic left sacroiliac joint pain Chronic left sacroiliac joint pain Chronic left sacroiliac joint pain Chronic left sacroiliac joint pain Chief Complaint Lumbar spine BACK PAIN, IN NEED OF MEDICATION back/leg pain BACK PAIN, SHOOTING INTO LEG LUMBAR RAD lumber spine BACK PAIN Increase pain meds FEVER/COVID TEST HEADACHE Reason for Visit Chronic left sacroil iac joint pain Chronic left sacroiliac joint pain Chronic left sacroiliac joint pain Chronic left sacroiliac joint pain Chronic left sacroiliac joint pain Lumbar radiculopathy Contact with and (suspected) exposure to other viral communicable diseases URI (upper respiratory infection) Chief Complaint Lumbar spine BACK PAIN, IN NEED OF MEDICATION back/leg pain BACK PAIN, SHOOTING INTO LEG LUMBAR RAD lumber spine BACK PAIN Increase pain meds FEVER/COVID TEST HEADACHE ABD PAIN, NAUSEA Reason for Visit Chronic left sacroil iac joint pain Chronic left sacroiliac joint pain Chronic left sacroiliac joint pain Chronic left sacroiliac joint pain Chronic left sacroiliac joint pain Lumbar radiculopathy Contact with and (suspected) exposure to other viral communicable diseases URI (upper respiratory infection) Chief Complaint Lumbar spine BACK PAIN, IN NEED OF MEDICATION back/leg pain BACK PAIN, SHOOTING INTO LEG LUMBAR RAD lumber spine BACK PAIN Increase pain meds FEVER/COVID TEST HEADACHE ABD PAIN, NAUSEA uti, abd pain Reason for Visit Chronic left sacroil iac joint pain Chronic left sacroiliac joint pain Chronic left sacroiliac joint pain Chronic left sacroiliac joint pain Chronic left sacroiliac joint pain Lumbar radiculopathy Contact with and (suspected) exposure to other viral communicable diseases URI (upper respiratory infection) Chief Complaint LUMBAR RAD lumber spine BACK PAIN Increase pain meds FEVER/COVID TEST HEADACHE ABD PAIN, NAUSEA uti, abd pain [facility] ER FU/ FEELS LIKE SHES WORSE SORE THROAT, COUGH, FEVER, ACHES REEVES Reason for Visit Chronic left sacroil iac joint pain Chronic left sacroiliac joint pain Lumbar radiculopathy Contact with and (suspected) exposure to other viral communicable diseases URI (upper respiratory infection) Bipolar disorder Acute cystitis Influenza A Chief Complaint LUMBAR RAD lumber spine BACK PAIN Increase pain meds FEVER/COVID TEST HEADACHE ABD PAIN, NAUSEA uti, abd pain [facility] ER FU/ FEELS LIKE SHES WORSE SORE THROAT, COUGH, FEVER, ACHES REEVES SORE THROAT Reason for Visit Chronic left sacroil iac joint pain Chronic left sacroiliac joint pain Lumbar radiculopathy Contact with and (suspected) exposure to other viral communicable diseases URI (upper respiratory infection) Bipolar disorder Acute cystitis Influenza A Chief Complaint FEVER/COVID TEST HEADACHE ABD PAIN, NAUSEA uti, abd pain [facility] ER FU/ FEELS LIKE SHES WORSE SORE THROAT, COUGH, FEVER, ACHES REEVES SORE THROAT FATIGUED/SORE THROAT Severe migraines WEAKNESS Reason for Visit Contact with and (aburto spected) exposure to other viral communicable diseases URI (upper respiratory infection) Bipolar disorder Acute cystitis Influenza A Acute pharyngitis Contact with and (suspected) exposure to other viral communicable diseases Migraines Chief Complaint SORE THROAT, COUGH, FEVER, ACHES REEVES SORE THROAT FATIGUED/SORE THROAT Severe migraines WEAKNESS lumber spine MIGRAINE FOLLOW UP DENTAL Reason for Visit Influenza A Acute pharyngitis Contact with and (suspected) exposure to other viral communicable diseases Migraines Lumbosacral facet joint syndrome Pain, dental Chief Complaint REEVES SORE THROAT FATIGUED/SORE THROAT Severe migraines WEAKNESS lumber spine MIGRAINE FOLLOW UP DENTAL RIGHT SIDE MOUTH PAIN/POSSIBLE INJURY DIZZINESS Reason for Visit Acute pharyngitis Contact with and (suspected) exposure to other viral communicable diseases Migraines Lumbosacral facet joint syndrome Pain, dental Dental infection Family History No Family History Records Found Relationship Condition Age at Onset Recorded Date/T sixto Not Specified Malignant neoplasm Unknown Not Specified Alcoholism Unknown Anxiety Unknown Asthma Unknown Depression Unknown Myocardial infarction Unknown Attempted suicide Unknown Reason for Referral Specialty Diagnoses / Procedures Referred By Contac t Referred To Contact [facility] Diagnoses Chronic bilateral low back pain with left-sided sciatica Procedures CONSULT TO PHYSICAL THERAPY PHYSICAL THERAPY EVALUATION HIGH COMPLEX 45 MINS Anna Marie Pérez APRN.GRAPE CRUSHER [address] [place] [address] [facility] [address] [place] [address] Referral ID Status Reason Start Date Expiration Date Visits Requested Visits Authorized [id number] Pending Review Auto-Generat ed Referral 07/13/2023 07/12/2024 1 1 Summary Purpose Additional Source Comments Source Comments (unrecognize d section and content) In the event this informatio n is protected by the Federal Confidentiality of Alcohol and Drug Abuse Patient Records regulations: The Federal rules restrict any use of the information to criminally investigate or prosecute any alcohol or drug abuse patient.[facility] the event this information is protected by the Federal Confidentiality of Alcohol and Drug Abuse Patient Records regulations: The Federal rules restrict any use of the information to criminally investigate or prosecute any alcohol or drug abuse patient.[facility] the event this information is protected by the Federal Confidentiality of Alcohol and Drug Abuse Patient Records regulations: The Federal rules restrict any use of the information to criminally investigate or prosecute any alcohol or drug abuse patient.[facility] the event this information is protected by the Federal Confidentiality of Alcohol and Drug Abuse Patient Records regulations: The Federal rules restrict any use of the information to criminally investigate or prosecute any alcohol or drug abuse patient.[facility] the event this information is protected by the Federal Confidentiality of Alcohol and Drug Abuse Patient Records regulations: The Federal rules restrict any use of the information to criminally investigate or prosecute any alcohol or drug abuse patient.[facility] the event this information is protected by the Federal Confidentiality of Alcohol and Drug Abuse Patient Records regulations: The Federal rules restrict any use of the information to criminally investigate or prosecute any alcohol or drug abuse patient.[facility] the event this information is protected by the Federal Confidentiality of Alcohol and Drug Abuse Patient Records regulations: The Federal rules restrict any use of the information to criminally investigate or prosecute any alcohol or drug abuse patient.[facility] the event this information is protected by the Federal Confidentiality of Alcohol and Drug Abuse Patient Records regulations: The Federal rules restrict any use of the information to criminally investigate or prosecute any alcohol or drug abuse patient.[facility] the event this information is protected by the Federal Confidentiality of Alcohol and Drug Abuse Patient Records regulations: The Federal rules restrict any use of the information to criminally investigate or prosecute any alcohol or drug abuse patient.[facility] the event this information is protected by the Federal Confidentiality of Alcohol and Drug Abuse Patient Records regulations: The Federal rules restrict any use of the information to criminally investigate or prosecute any alcohol or drug abuse patient.[facility] the event this information is protected by the Federal Confidentiality of Alcohol and Drug Abuse Patient Records regulations: The Federal rules restrict any use of the information to criminally investigate or prosecute any alcohol or drug abuse patient.[facility] the event this information is protected by the Federal Confidentiality of Alcohol and Drug Abuse Patient Records regulations: The Federal rules restrict any use of the information to criminally investigate or prosecute any alcohol or drug abuse patient.[facility] the event this information is protected by the Federal Confidentiality of Alcohol and Drug Abuse Patient Records regulations: The Federal rules restrict any use of the information to criminally investigate or prosecute any alcohol or drug abuse patient.[facility] the event this information is protected by the Federal Confidentiality of Alcohol and Drug Abuse Patient Records regulations: The Federal rules restrict any use of the information to criminally investigate or prosecute any alcohol or drug abuse patient.[facility] the event this information is protected by the Federal Confidentiality of Alcohol and Drug Abuse Patient Records regulations: The Federal rules restrict any use of the information to criminally investigate or prosecute any alcohol or drug abuse patient.[facility] the event this information is protected by the Federal Confidentiality of Alcohol and Drug Abuse Patient Records regulations: The Federal rules restrict any use of the information to criminally investigate or prosecute any alcohol or drug abuse patient.[facility] the event this information is protected by the Federal Confidentiality of Alcohol and Drug Abuse Patient Records regulations: The Federal rules restrict any use of the information to criminally investigate or prosecute any alcohol or drug abuse patient.[facility] the event this information is protected by the Federal Confidentiality of Alcohol and Drug Abuse Patient Records regulations: The Federal rules restrict any use of the information to criminally investigate or prosecute any alcohol or drug abuse patient.[facility] the event this information is protected by the Federal Confidentiality of Alcohol and Drug Abuse Patient Records regulations: The Federal rules restrict any use of the information to criminally investigate or prosecute any alcohol or drug abuse patient.[facility] the event this information is protected by the Federal Confidentiality of Alcohol and Drug Abuse Patient Records regulations: The Federal rules restrict any use of the information to criminally investigate or prosecute any alcohol or drug abuse patient.[facility] the event this information is protected by the Federal Confidentiality of Alcohol and Drug Abuse Patient Records regulations: The Federal rules restrict any use of the information to criminally investigate or prosecute any alcohol or drug abuse patient.[facility] the event this information is protected by the Federal Confidentiality of Alcohol and Drug Abuse Patient Records regulations: The Federal rules restrict any use of the information to criminally investigate or prosecute any alcohol or drug abuse patient.[facility] the event this information is protected by the Federal Confidentiality of Alcohol and Drug Abuse Patient Records regulations: The Federal rules restrict any use of the information to criminally investigate or prosecute any alcohol or drug abuse patient.[facility] the event this information is protected by the Federal Confidentiality of Alcohol and Drug Abuse Patient Records regulations: The Federal rules restrict any use of the information to criminally investigate or prosecute any alcohol or drug abuse patient.[facility] the event this information is protected by the Federal Confidentiality of Alcohol and Drug Abuse Patient Records regulations: The Federal rules restrict any use of the information to criminally investigate or prosecute any alcohol or drug abuse patient.[facility] Reason for Visit (unrecogniz ed section and content) Reason Onset Date Comments Depo Provera Injection 08/23/2021 Reason Onset Date Comments Yearly Exam Gardasil Injection 09/06/2021 Reason Onset Date Comments Depo Provera Injection 01/06/2022 Reason Onset Date Comments Depo Provera Injection 05/24/2022 Reason Onset Date Comments Discussion UTI sxs Depo Provera Injection 09/05/2022 Patient b rought own med Reason Onset Date Comments Refill Request 12/07/2022 Reason Onset Date Comments Depo Provera Injection 03/15/2023 Reason Comments Patient Question Reason Comments Initial Consult Reason Comments Results Reason Comments New Patient Evaluation Back Pain Lower Leg Pain Bilateral - L>R Specialty Diagnoses / Procedures Referred By Contac t Referred To Contact Pain Management Diagnoses Pain in joint, multiple sites Procedures CONSULT TO PAIN MGT Lis Freedman MD [address] [place] [address] Referral ID Status Reason Start Date Expiration Date Visits Requested Visits Authorized [id number] Ref Not Required PCP Requested Referral 06/18/2023 2023 3 3 Reason Comments New Patient Evaluation Back Pain Hip Pain Leg Pain Left Specialty Diagnoses / Procedures Referred By Contac t Referred To Contact Pain Management Diagnoses Pain in joint, multiple sites Procedures CONSULT TO PAIN Lis Martinez MD [address] [place] [address] Reason Onset Date Comments Depo Provera Injection 08/29/2023 Reason Comments No Show Reason Onset Date Comments Refill Request 11/13/2023 Reason Comments Yearly Exam Reason Comments Orders Reason Onset Date Comments Refill Request 05/30/2024 Care Team (unrecognized sect ion and content) Team Status: Active Member Role Status Dates Dr. Rosa Kemp MD Family Provider Active Dr. Rosa Kemp MD Primary Care Provider Active Team Status: Inactive Member Role Status Dates Dr. Rosa Kemp MD Primary Care Provider, Refer ring Provider Active Azael MATUTE, PA Attending Provider Active Team Status: Inactive Member Role Status Dates Dr. Rosa Kemp MD Primary Care Provider, Refer ring Provider Active Woody Encinas SECOND CUTTER, SECOND CUTTER-C Attending Provider Active Team Status: Inactive Member Role Status Dates Dr. Rosa Kemp MD Primary Care Provider, Refer ring Provider Active Drake MATUTE, [place] Attending Provider Active Team Status: Inactive Member Role Status Dates Dr. Rosa Kemp MD Primary Care Provider, Refer ring Provider Active Renny MATUTE, [place] Attending Provider Active Team Status: Inactive Member Role Status Dates Dr. Rosa Kemp MD Primary Care Provider Active Dr. Michael Shah DO Attending Provider, Emergency P rovider Active Team Status: Inactive Member Role Status Dates Dr. Rosa Kemp MD Primary Care Provider Active Dr. Jesus Mahoney DO Attending Provider, Emergency Provide r Active Team Status: Inactive Member Role Status Dates Dr. Rosa Kemp MD Primary Care Provider Active Dr. Sunil Shea MD Attending Provider, Emergency Pr ovider Active Team Status: Inactive Member Role Status Dates Dr. Rosa Kemp MD Primary Care Provider Active Dr. Darryn Mares DO Attending Provider, Emergency Provider Active Team Status: Inactive Member Role Status Dates Dr. Rosa Kemp MD Primary Care Provider Active Dr. Kaleb Molina DO Attending Provider, Emergency P rovider Active Team Status: Inactive Member Role Status Dates Dr. Rosa Kemp MD Primary Care Provider Active Dr. Alvarez Bingham MD Emergency Provider Active Team Status: Inactive Member Role Status Dates Dr. Rosa Kemp MD Primary Care Provider, Refer ring Provider Active Dr. Lino Falcon DO Attending Provider Active Team Status: Inactive Member Role Status Dates Dr. Rosa Kemp MD Primary Care Provider Active Dr. Alvarez Bingham MD Attending Provider, Emergency Provider Active Team Status: Active Member Role Status Dates Dr. Rosa Kemp MD Primary Care Provider Active Woody Encinas SECOND CUTTER, SECOND CUTTER-C Attending Provider Active Team Status: Inactive Member Role Status Dates Dr. Rosa Kemp MD Primary Care Provider Active Dr. Kaleb Molina DO Emergency Provider Active Team Status: Inactive Member Role Status Dates Dr. Rosa Kemp MD Primary Care Provider Active Woody Encinas SECOND CUTTER, SECOND CUTTER-C Attending Provider Active Team Status: Inactive Member Role Status Dates Dr. Rosa Kemp MD Primary Care Provider Active Dr. Isma Pal MD Emergency Provider Active Organ Tuner Electronic Relationship Specialty Start Date End Date Rosa Kemp MD [address] [place] [address] PCP - General Internal Medicine 05/30/23 Organ Tuner Electronic Relationship Specialty Start Date End Date Rosa Kemp MD [address] [place] [address] PCP - General Internal Medicine 05/30/23 Organ Tuner Electronic Relationship Specialty Start Date End Date Rosa Kemp MD [address] [place] [address] PCP - General Internal Medicine 05/30/23 Organ Tuner Electronic Relationship Specialty Start Date End Date Rosa Kemp MD [address] [place] [address] PCP - General Internal Medicine 05/30/23 Organ Tuner Electronic Relationship Specialty Start Date End Date Rosa Kemp MD [address] [place] [address] PCP - General Internal Medicine 05/30/23 Organ Tuner Electronic Relationship Specialty Start Date End Date Rosa Kemp MD [address] [place] [address] PCP - General Internal Medicine 05/30/23 Organ Tuner Electronic Relationship Specialty Start Date End Date Rosa Kemp MD [address] [place] [address] PCP - General Internal Medicine 05/30/23 Organ Tuner Electronic Relationship Specialty Start Date End Date Rosa Kemp MD [address] [place] [address] PCP - General Internal Medicine 05/30/23 Organ Tuner Electronic Relationship Specialty Start Date End Date Rosa Kemp MD [address] [place] [address] PCP - General Internal Medicine 05/30/23 Organ Tuner Electronic Relationship Specialty Start Date End Date Rosa Kemp MD [address] [place] [address] PCP - General Internal Medicine 05/30/23 Organ Tuner Electronic Relationship Specialty Start Date End Date Rosa Kemp MD [address] [place] [address] PCP - General Internal Medicine 05/30/23 Organ Tuner Electronic Relationship Specialty Start Date End Date Rosa Kemp MD [address] [place] [address] PCP - General Internal Medicine 05/30/23 Organ Tuner Electronic Relationship Specialty Start Date End Date Rosa Kemp MD [address] [place] [address] PCP - General Internal Medicine 05/30/23 Organ Tuner Electronic Relationship Specialty Start Date End Date Rosa Kemp MD [address] [place] [address] PCP - General Internal Medicine 05/30/23 Organ Tuner Electronic Relationship Specialty Start Date End Date Rosa Kemp MD [address] [place] [address] PCP - General Internal Medicine 05/30/23 Care Team (unrecognized sect ion and content) Care Team Personnel Name: ROSA KEMP MD Member Role: Primary Care Physician Address: Address: [address] [place] [place], [place] [address] Care Team Personnel Name: ROSA KEMP MD Member Role: Primary Care Physician Address: Address: [address] [place] [address]- Care Team Personnel Name: ROSA KEMP MD Member Role: Primary Care Physician Address: Address: [address] [place] [address]- Care Team Personnel Name: ROSA KEMP MD Member Role: Primary Care Physician Address: Address: [address] [place] [address]- Name: SAM MACIAS MD Position: ED Physician Member Role: Attending Physician Address: Address: [facility] [address] [place] [address]- [place] Goals (unrecognized section and content) Goals may be documented in a n alternate section INFORMATION SOURCE (unrecogn ized section and content) DATE CREATED AUTHOR 10/11/2023 [facility] DATE CREATED AUTHOR AUTHOR'S ORGANIZ ATION 11/23/2023 [facility] DATE CREATED AUTHOR AUTHOR'S ORGANIZ ATION 02/16/2024 [facility] DATE CREATED AUTHOR AUTHOR'S ORGANIZ ATION 10/27/2024 [facility] DATE CREATED AUTHOR AUTHOR'S ORGANIZ ATION 10/28/2024 [facility] FOR RECORDS PERTAINING TO PATIENTS WHO ARE [...] BE BASED ON THE PRIMARY CLINICAL RECORDS. [facility] [employer] [facility]. provides no warranty or guarantee of the accuracy or completeness of information in this document.
[2024-11-02] MEDS: Ibuprofen 600 MG Tablet PO (14:39)
== END 2024-11-02 14:30 | disposition home or self-care (01) ==
PROVIDERS: Emergency Provider Emergency Medicine; PCP Internal Medicine; Visit Provider Emergency Medicine
DX: M65.4 Radial styloid tenosynovitis [de Quervain] (principal); X50.0XXA Overexertion from strenuous movement or load, initial encounter; I10 Essential (primary) hypertension; F90.9 Attention-deficit hyperactivity disorder, unspecified type; F17.210 Nicotine dependence, cigarettes, uncomplicated; F17.290 Nicotine dependence, other tobacco product, uncomplicated; Z79.899 Other long term (current) drug therapy
CPT/HCPCS: 99282

== ENCOUNTER 2024-11-09 12:05 | Emergency (ER) | payer MEDICAID, SELFPAY ==
[2024-11-09 12:06] VITALS: BP 111/85; PULSE 100; RESP 18; TEMP 36.4; O2SAT 95; BMI 30.9
[2024-11-09 13:21] VITALS: BP 125/76; PULSE 85; RESP 20; O2SAT 99
[2024-11-09 13:38] LABS: Hematocrit 41.9 % (37-47); Hemoglobin 14.0 g/dL (12.0-15.0); Immature Granulocytes Count 0.010 X10^3/uL (0.0-0.0); Mean Corp Hgb Conc 33.4 g/dL (32-36); Mean Corpuscular Volume 88.0 fL (81-99); Mean Platelet Vol. 10.0 fl (6.2-12.0); NRBC Flagged by Analyzer 0 % (0-5); Platelet Count 340 K/mm3 (150-450); RBC Distribution Width CV 12.8 % (11.6-14.6); RBC Distribution Width SD 41.1 fl (35.1-43.9); Red Blood Count 4.76 M/mm3 (4.2-5.4); White Blood Count 7.3 K/mm3 (4.4-11.0)
[2024-11-09] MEDS: 0.9% Normal Saline (1000mL) 1,000 ML 1000 ML IV (13:46)
[2024-11-09 14:34] LABS: AST(SGOT) 40 U/L (<=31); Alanine Aminotransfer ALT/SGPT 76 U/L (<=34); Albumin, Serum 3.9 g/dL (3.5-5.0); Alkaline Phosphatase 202 U/L (35-104); Anion Gap 9 (5-15); BUN 12 mg/dL (4-19); BUN/Creat Ratio 12.5 RATIO (10-20); Calcium,Total 9.1 mg/dL (7.6-11.0); Carbon Dioxide 25.7 mmol/L (21.0-32.0); Chloride 104 mmol/L (98-108); Estimated Creatinine Clearance 94.75 ml/min (50-250); Globulin 2.7 g/dL (2.2-4.2); Glucose 101 mg/dL (70-99); Potassium 4.2 mmol/L (3.3-5.1)
[2024-11-09 14:49] LABS: Barbiturate Urine NEGATIVE (< 200 ng/mL); Benzodiazepine Urine PRESUMPTIVE POSITIVE (< 200 ng/mL); PCP Urine NEGATIVE (< 25 ng/mL); THC Urine PRESUMPTIVE POSITIVE (< 50 ng/mL)
[2024-11-09 15:26] VITALS: BP 111/75; PULSE 78; RESP 14; TEMP 36.8; O2SAT 99
== END 2024-11-09 15:27 | disposition home or self-care (01) ==
PROVIDERS: Emergency Provider Emergency Medicine; PCP Internal Medicine; Visit Provider Emergency Medicine
DX: M65.4 Radial styloid tenosynovitis [de Quervain] (principal); F31.9 Bipolar disorder, unspecified; F17.200 Nicotine dependence, unspecified, uncomplicated; K76.0 Fatty (change of) liver, not elsewhere classified; F43.10 Post-traumatic stress disorder, unspecified
CPT/HCPCS: 80053; 80307; 85025; 96360; 96361; 99283; A4216

== ENCOUNTER 2024-11-25 19:00 | Emergency (ER) | payer MEDICAID, SELFPAY ==
[2024-11-25 19:01] VITALS: BP 138/91; PULSE 110; RESP 16; TEMP 36.3; O2SAT 98; BMI 31.1
--- NOTE | 2024-11-25 19:41 | EX.ED.VIS.PS ---
HPI HPI - Psych History of Present Illness Chief Complaint: Mental Health PFSH PFS Medical History History of substance abuse Therapeutic drug monitoring Viral URI with cough Loss of hearing Wears glasses Restless legs Back pain Migraine headache Vertigo Hoarseness Heartburn Smoker Asthma Shortness of breath on exertion Leg cramps Tachycardia Knee pain, right ADHD Hypertension Arthritis Hepatitis C Encounter for preventative adult health care examination MDD (major depressive disorder) Suprapubic discomfort Cellulitis of left foot Abnormal kidney function Vertigo Chronic dental pain Contact with and (suspected) exposure to other viral communicable diseases URI (upper respiratory infection) Left ankle sprain Encounter for screening for COVID-19 Acute maxillary sinusitis, unspecified Lumbar radiculopathy Right elbow pain Chronic neck pain Bee sting Chronic low back pain GERD (gastroesophageal reflux disease) PTSD (post-traumatic stress disorder) Anxiety and depression Bipolar 1 disorder Drug abuse Chronic bronchitis Alcohol abuse Home Medications Medication Instructions Recorded Last Taken Type valacyclovir 500 mg tablet 500 mg PO DAILY 11/05/20 Unknown History rimegepant 75 mg disintegrating 75 mg PO ONCE PRN migraine headache 01/17/24 Unknown History tablet (Nurtec ODT) amlodipine 5 mg tablet 5 mg PO DAILY 03/21/24 Unknown History hydroxyzine HCl 50 mg tablet 50 mg PO TID 07/17/24 Unknown History atomoxetine 100 mg capsule 100 mg PO DAILY #30 caps 09/04/24 Unknown Rx duloxetine 60 mg capsule,delayed 60 mg PO DAILY #30 caps 09/04/24 Unknown Rx release prazosin 1 mg capsule 1 mg PO QHS #30 caps 09/04/24 Unknown Rx ipratropium bromide 21 mcg (0.03 2 spray intranasal BID-TID PRN 09/18/24 Unknown Rx %) nasal spray postnasal drainage #30 mL cariprazine 1.5 mg capsule 1.5 mg PO DAILY #30 caps 10/16/24 Unknown Rx lorazepam 1 mg tablet 1 mg PO DAILY PRN anxiety #30 tabs 10/16/24 Unknown Rx gabapentin 600 mg tablet 600 mg PO TID #90 tabs 10/31/24 Unknown Rx ibuprofen 600 mg tablet 600 mg PO Q8H PRN PRN pain #20 11/02/24 Unknown Rx TABLETS promethazine 12.5 mg tablet 12.5 mg PO QDAY PRN nausea and 11/14/24 Unknown Rx vomiting #10 tabs prednisone 10 mg tablet 10 mg PO QDAY #30 tabs 11/17/24 Unknown Rx Allergy/AdvReac Type Severity Reaction Status Date / Time zinc oxide Allergy Unknown Verified 11/25/24 19:03 naproxen (From Naprosyn) AdvReac Nausea Verified 11/25/24 19:03 Family History Unknown Alcoholism Anxiety Asthma Depression Myocardial infarction Suicide attempt Other Cancer Surgical History History of liver biopsy Hx of wisdom tooth extraction Hx laparoscopic cholecystectomy History of cholecystectomy History of laparoscopic appendectomy Social History household members: other Smoking Status: Heavy Smoker (>10/day) alcohol intake: current alcohol intake frequency: a few times a month substance use type: 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, methamphetamine and other what type of physical activity do you participate in: yoga and weight training frequency: 3-4 times per week EXAM Physical Exam Const Vital Signs: 11/25/24 19:01 Temperature 97.3 F L Temperature Source Oral Pulse Rate 110 H Respiratory Rate 16 Blood Pressure 138/91 H Blood Pressure Mean 106 Pulse Ox 98 Oxygen Delivery Method Room Air MDM MDM MDM Narrative Medical decision making narrative: HISTORY OF PRESENT ILLNESS: Chief complaint: Mental health evaluation 34-year-old female history of of GERD, depression, PTSD, bipolar disorder and polysubstance abuse presents with "a lot going on". She states "I do not want to hurt anymore". She describes that there is a lot going on her life secondary to mother passing away, stepfather issues as well as issues with her kids. Patient denies suicidal ideation homicidal ideation to me. Notes that she does not want to relapse. Notes she is having a hard time because of the anniversary that her mother 1 year ago. Denies auditory visual hallucinations. Has drug use. States she would just like help. REVIEW OF SYSTEMS: Pertinent positives: Depression Pertinent negatives: Headache, chest pain, shortness of PHYSICAL EXAM: Nursing triage notes reviewed, Vital signs reviewed Constitutional: please see mdm HENT: MMM Eyes: Pupils equal round and reactive to light, Extraocular muscles intact Neck: No stridor, no JVD, full neck ROM Lungs: Clear to auscultation, No wheezing or rales. No increased work of breathing, no conversational dyspnea, no accessory muscle use, no nasal flaring. No respiratory distress noted Heart: Regular rate and rhythm, No murmurs, No rubs and No gallops, 2+ distal pulses (radial, femoral, posterior tibial) in all extremities Abdomen: Soft, there is no tenderness, rigidity, rebound or guarding, no obvious peritoneal signs, no palpable pulsatile abdominal masses, no auscultated abdominal bruit : No CVAT Extremities: No edema Neuro: No new focal neurological deficits, cranial nerves II through XII intact, 5/5 strength in all present extremities. Intact sensation to light touch in all present extremities, 2+ reflexes bilateral patella tendons. Skin: No rash or lesions noted Psych: Normal mood, goal-directed thought process, not responding to internal stimuli MEDICAL DECISION MAKING: Chief Complaint: please see HPI External records reviewed: Reviewed urine drug screen from November 09, 2024 which was positive for buprenorphine, benzodiazepines as well as cannabis Factors affecting care: As per HPI Social determinants of health: n history mental health and polysubstance abuse History obtained from others: none Consults: Case management MDM Narrative: The patient was initially hemodynamically stable, afebrile. Exam without focal abnormalities Consulted social work. Prior to social work evaluation and further ED observation patient eloped from the emergency department. The patient and/or family, caregivers express understanding. The patient and/or family, caregivers agrees with the plan. Shared decision making: I will have a discussion with the patient and or visitors regarding risk/benefits of further testing or admission. They will be made aware of of the risk/benefits inherent in this decision they will be given the opportunity to voice understanding. Total critical care time today provided was at least 0 minutes. This excludes separately billable procedures. Critical care time (if documented) is secondary to the patient having high probability of clinically significant/life threatening deterioration in the patient's condition which required my urgent intervention. Impression: 1. Depression 2. History of bipolar disorder Dispo: Eloped from the emergency department This note was generated with [employer] dictation software. It may contain incorrect words, spelling, and punctuation that were not noted in review of the chart prior to signing. Discharge Plan Triage Chief Complaint: Mental Health ED Provider: Loy Odell Dx/Rx/DC Orders Prescriptions: No Action Nurtec ODT 75 mg tablet,disintegrating 75 mg PO ONCE PRN (Reason: migraine headache) Rx Instructions: as a single dose hydroxyzine HCl 50 mg tablet 50 mg PO TID atomoxetine 100 mg capsule 100 mg PO DAILY Qty: 30 2RF duloxetine 60 mg capsule,delayed release(DR/EC) 60 mg PO DAILY Qty: 30 2RF prazosin 1 mg capsule 1 mg PO QHS Qty: 30 2RF ipratropium bromide 21 mcg (0.03 %) spray,non-aerosol 2 spray intranasal BID-TID PRN (Reason: postnasal drainage) Qty: 30 0RF Rx Instructions: administer into each nostril cariprazine 1.5 mg capsule 1.5 mg PO DAILY Qty: 30 2RF lorazepam 1 mg tablet 1 mg PO DAILY PRN (Reason: anxiety) Qty: 30 0RF promethazine 12.5 mg tablet 12.5 mg PO QDAY PRN (Reason: nausea and vomiting) Qty: 10 0RF prednisone 10 mg tablet 10 mg PO QDAY Qty: 30 0RF Rx Instructions: 4 tablets daily x3 days, then 3 tablets daily x3 days, then 2 tablets daily x3 days, then 1 tablet daily x3 days valacyclovir 500 mg tablet 500 mg PO DAILY amlodipine 5 mg tablet 5 mg PO DAILY Rx Instructions: take 1 tablet by mouth daily ibuprofen 600 mg tablet 600 mg PO Q8H PRN PRN (Reason: pain) Qty: 20 0RF gabapentin 600 mg tablet 600 mg PO TID Qty: 90 0RF Primary Care Provider: Navi Kemp Referrals: Navi Kemp MD [Primary Care Provider] - Print Language: Hebrew Disposition Disposition: Elopement Discharge Date/Time: 11/25/24 20:02
== END 2024-11-25 20:02 | disposition left against medical advice (07) ==
LOC: ED 20:01
PROVIDERS: Emergency Provider Emergency Medicine; PCP Internal Medicine; Visit Provider Emergency Medicine
DX: F31.9 Bipolar disorder, unspecified (principal); I10 Essential (primary) hypertension; F17.200 Nicotine dependence, unspecified, uncomplicated; Z63.4 Disappearance and death of family member
CPT/HCPCS: 99282

== ENCOUNTER 2024-12-07 11:04 | Emergency (ER) | payer MEDICAID, SELFPAY ==
[2024-12-07 11:06] VITALS: BP 132/92; PULSE 126; RESP 20; TEMP 37.1; O2SAT 99; BMI 29.9
--- NOTE | 2024-12-07 11:19 | EX.ED.DYSGE1 ---
HPI History of Present Illness Chief Complaint: Nausea/Vomiting/Diarrhea Narrative Narrative: 34-year-old female with past medical history of hypertension, GERD, bipolar, hepatitis C, polysubstance abuse states she has had nausea, vomiting, and diarrhea for the last several weeks but it worsened over the last few days. Whenever she drinks a sip of water she will vomit. She has no abdominal pain, no melena or hematochezia. No fever or chills. She states she just feels head spasms she thinks it is from dehydration. She states she has not used meth since July. She vapes. Denies recent alcohol use. She has had a cholecystectomy and appendectomy. [facility] Medical History History of substance abuse Therapeutic drug monitoring Viral URI with cough Loss of hearing Wears glasses Restless legs Back pain Migraine headache Vertigo Hoarseness Heartburn Smoker Asthma Shortness of breath on exertion Leg cramps Tachycardia Knee pain, right ADHD Hypertension Arthritis Hepatitis C Encounter for preventative adult health care examination MDD (major depressive disorder) Suprapubic discomfort Cellulitis of left foot Abnormal kidney function Vertigo Chronic dental pain Contact with and (suspected) exposure to other viral communicable diseases URI (upper respiratory infection) Left ankle sprain Encounter for screening for COVID-19 Acute maxillary sinusitis, unspecified Lumbar radiculopathy Right elbow pain Chronic neck pain Bee sting Chronic low back pain GERD (gastroesophageal reflux disease) PTSD (post-traumatic stress disorder) Anxiety and depression Bipolar 1 disorder Drug abuse Chronic bronchitis Alcohol abuse Home Medications ?Medication ?Instructions ?Recorded ?Last Taken ?Type valacyclovir 500 mg tablet 500 mg PO DAILY 11/05/20 12/05/24 History amlodipine 5 mg tablet 5 mg PO DAILY 03/21/24 12/05/24 History duloxetine 60 mg capsule,delayed 60 mg PO DAILY #30 caps 09/04/24 12/05/24 Rx release prazosin 1 mg capsule 1 mg PO QHS #30 caps 09/04/24 12/05/24 Rx cariprazine 1.5 mg capsule 1.5 mg PO DAILY #30 caps 10/16/24 12/05/24 Rx atomoxetine 100 mg capsule 100 mg PO DAILY #30 caps 12/01/24 12/05/24 Rx gabapentin 300 mg capsule 300 mg PO TID #30 caps 12/05/24 12/05/24 Rx ondansetron HCl 4 mg tablet 4 mg PO Q6H PRN nausea and 12/07/24 Unknown Rx vomiting 4 days #16 tabs Allergy/AdvReac Type Severity Reaction Status Date / Time zinc oxide Allergy Unknown Verified 12/07/24 11:08 naproxen (From Naprosyn) AdvReac Nausea Verified 12/07/24 11:08 Family History Unknown Alcoholism Anxiety Asthma Depression Myocardial infarction Suicide attempt Other Cancer Surgical History History of liver biopsy Hx of wisdom tooth extraction Hx laparoscopic cholecystectomy History of cholecystectomy History of laparoscopic appendectomy Social History household members: other Smoking Status: Heavy Smoker (>10/day) alcohol intake: current alcohol intake frequency: a few times a month substance use type: 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, methamphetamine and other what type of physical activity do you participate in: yoga and weight training frequency: 3-4 times per week ROS ROS ED ROS Narrative Constitutional: Negative for fever, chills. CVS: Negative for chest pain, syncope. Respiratory: Negative for shortness of breath, cough. GI: Positive for nausea, vomiting, diarrhea. Negative for melena, hematochezia. : Negative for dysuria, hematuria or frequency. EXAM Physical Exam Narrative Exam Narrative: CONST: Patient sitting in no acute distress. EYES: Normal inspection. NECK: Normal inspection. RESP: No respiratory distress, CTAB. CVS: Regular rate and rhythm, no murmur, no gallop. ABD: Soft and nontender, no guarding or rebound, nondistended. SKIN: Color normal, no rash, warm, dry, intact. EXTREMITIES: Normal appearance, no pedal edema. NEURO: Alert and answering questions appropriately. PSYCH: Normal affect. Const Vital Signs: 12/07/24 11:06 12/07/24 12:33 12/07/24 13:03 Temperature 98.7 F 98.4 F Temperature Source Oral Pulse Rate 126 H 87 90 Respiratory Rate 20 H 16 16 Blood Pressure 132/92 H 135/88 H 128/92 H Blood Pressure Mean 105 103 104 Pulse Ox 99 100 100 Oxygen Delivery Method Room Air Room Air MDM MDM MDM Narrative Medical decision making narrative: Differential includes but not limited to electrolyte derangement, CARLOS, less likely diverticulitis since she has no abdominal pain Tests considered: I considered CT of the abdomen/pelvis but she has no abdominal pain or tenderness and no leukocytosis so I do not think it is indicated. 34-year-old female reports several weeks of N/V/D without abdominal pain. Symptoms worsened over the last few days. She appears well and nontoxic. She is tachycardic in the 120s with otherwise normal vital signs. She has slightly dry mucous membranes. Heart is rapid but regular. Lungs clear. Abdomen soft, nontender, nondistended. She was given IV fluids and Zofran while blood work was obtained. WBC is normal at 5.6. Hgb of 16.2 is likely hemoconcentrated from dehydration. Electrolytes and renal function are normal. AST and ALT are minimally elevated at 36 and 38 respectively which appear to be chronic. Lipase is normal. Serum negative. She feels better after IV fluids and Zofran and is tolerating fluids in the department. I prescribe Zofran for home and advise she follow-up with her primary care doctor. Lab Data Attestation: I reviewed the patient's lab results. Labs: Laboratory Results - last 24 hr 12/07/24 11:32 WBC 5.6 RBC 5.46 H Hgb 16.2 H Hct 46.8 MCV 85.7 MCH 29.7 MCHC 34.6 RDW Std Deviation 38.7 RDW Coeff of [place] 12.5 Plt Count 323 MPV 10.4 Immature Gran % (Auto) 0.200 Neut % (Auto) 69.7 Lymph % (Auto) 17.8 L [place] % (Auto) 9.9 Eos % (Auto) 1.3 Baso % (Auto) 1.1 H Absolute Neuts (auto) 3.9 Absolute Lymphs (auto) 0.99 Nucleated RBC % 0 Sodium 138 Potassium 3.6 Chloride 105 Carbon Dioxide 20.2 L Anion Gap 13 BUN 5 Creatinine 0.83 Estim Creat Clear Calc 104.42 Est GFR (MDRD) Non-Af 95 BUN/Creatinine Ratio 5.9 L Glucose 124 H Calcium 9.3 Total Bilirubin 0.38 AST 36 H ALT 38 H Alkaline Phosphatase 100 Total Protein 7.3 Albumin 4.3 Globulin 3.0 Albumin/Globulin Ratio 1.5 Lipase 17 Serum , Qual NEGATIVE Discharge Plan Triage Chief Complaint: Nausea/Vomiting/Diarrhea ED Midlevel Provider: Anna Marie Yanez ED Provider: Flo Price Dx/Rx/DC Orders Clinical Impression: Nausea and vomiting, Diarrhea, Acute dehydration Instructions: ED Diet Vomiting Diarrhea Prescriptions: New ondansetron HCl 4 mg tablet 4 mg PO Q6H PRN (Reason: nausea and vomiting) 4 Days Qty: 16 0RF No Action duloxetine 60 mg capsule,delayed release(DR/EC) 60 mg PO DAILY Qty: 30 2RF prazosin 1 mg capsule 1 mg PO QHS Qty: 30 2RF cariprazine 1.5 mg capsule 1.5 mg PO DAILY Qty: 30 2RF valacyclovir 500 mg tablet 500 mg PO DAILY amlodipine 5 mg tablet 5 mg PO DAILY Rx Instructions: take 1 tablet by mouth daily atomoxetine 100 mg capsule 100 mg PO DAILY Qty: 30 2RF gabapentin 300 mg capsule 300 mg PO TID Qty: 30 0RF Primary Care Provider: Navi Kemp Referrals: Navi Kemp MD [Primary Care Provider] - Activity Restrictions/Additional Instructions: I prescribed Zofran to take as needed for nausea and vomiting. Sip clear fluids throughout the day, when you feel better eat bland foods and avoid fried or spicy foods. Follow-up with your primary care doctor. Return to the ER if symptoms worsen or if you have blood in your vomit or stool or develop abdominal pain. Print Language: Hebrew Disposition Disposition: Home, Self Care Discharge Date/Time: 12/07/24 13:07
[2024-12-07] MEDS: 0.9% Normal Saline (1000mL) 1,000 ML 999 ML IV (11:27)
--- OUTSIDE RECORDS SUMMARY | 2024-12-07 11:38 | XMS RPT_ITS | CCD ---
Author Organization [facility] Care Team Providers Care Certified Orthotist/Pedorthist Name Role Phone ROSA KEMP MD Primary Care Physician [phone] Unavailable [facility] Care Provider [facility] Rosa Adame Primary Care Provider [phone] Dr. Rosa Kemp Referring Provider [phone] GIOVANI Anderson Attending Provider Dr. Lino Falcon Attending Provider [phone] GIOVANI Agudelo Attending Provider CHARLOTTE Encinas NP Attending Provider [phone]) GIOVANI Bar Attending Provider Unavail Dr. Rosa Dawson Primary Care Provider 1(33 0) Dr. Rosa Kemp Referring Provider [phone] Dr. Lino Falcon Attending Provider [phone] Dr. Rosa Kemp Primary Care Provider [phone] Dr. Rosa Kemp Referring Provider [phone] CHARLOTTE Encinas NP Attending Provider [phone] GIOVANI Agudelo Attending Provider Dr. Rosa Kemp Primary Care Provider 1(33 0) Dr. Rosa Kemp Referring Provider [phone] Dr. Lino Falcon Attending Provider [phone] GIOVANI Bar Attending Provider Unavailab brittnee Encinas FRUIT PEELER, FRUIT PEELER-C Woody Attending Provider [phone] GIOVANI Agudelo Attending Provider Dr. Rosa Kemp Primary Care Provider 1(33 0) Dr. Rosa Kemp Referring Provider [phone] Dr. Lino Falcon Attending Provider [phone] GIOVANI Gonzalez Attending Provider Unavailable Primary Care Provider UnavailDr. Rosa Bowling Primary Care Provider 1(33 0) Dr. Rosa Kemp Referring Provider [phone] FRUIT PEELER, FRUIT PEELER-C Woody Attending Provider [phone]) GIOVANI Anderson Attending Provider Dr. Rosa Kemp Primary Care Provider 1(33 0) Dr. Rosa Kemp Referring Provider [phone] GIOVANI Gonzalez Attending Provider GIOVANI Anderson Attending Provider Ce FRUIT PEELER, FRUIT PEELER-C Woody Attending Provider [phone]) Dr. Lino Falcon Attending Provider [phone] Dr. Rosa Kemp Primary Care Provider 1(33 0) Dr. Rosa Kemp Referring Provider [phone] Rosa Kemp MD Primary Care Provider 1([phone]) Rosa Kemp MD Primary Care Provider 1(3 [phone]) Rosa Kemp MD Primary Care Provider 1(3 [phone]) ANNA MARIE PÉREZ Attending Unavailable LIS FREEDMAN Referring Unavailable POOJA KEMPEWONGBE B Primary Care Unavailable ANNA MARIE PÉREZ Attending Unavailable SELF Referring Unavailable DAVID KEMPONGBE B Primary Care Unavailable LIS FREEDMAN Attending Unavailable OLEGHE, EFEWONGBE B Primary Care Unavailable FREEDMAN LIS Referring Unavailable OLEGHE, EFEWONGBE B Primary Care Unavailable GILDARDO FREEDMANKA Referring Unavailable OLEGHE, EFEWONGBE B Primary Care Unavailable JUSTO CUNHA, EFEWONGBE B Primary Care Unavailab SHEYLA Holt Attending Unavailable SAM MACIAS MD Attending Unavail able JUSTO CUNHA, EFEWONGBE B Primary Care Unavailab VERNON Dumont Referring Unavailable OLEGHE, EFEWONGBE B Primary Care Unavailable OLEGHE, EFEWONGBE B Primary Care Unavailable OLEGHE, EFEWONGBE B Primary Care Unavailable PRATIMA KAT Attending Unavailable OLEGHE, EFEWONGBE B Primary Care Unavailable OLEGHE, EFEWONGBE B Primary Care Unavailable JUTSO CUNHA, EFEWONGBE B Primary Care Unavailab CLAUDIA Trujillo PA-C Attending Unavailable MYNOR TINOCO MD Attending Unavailable JUSTO CUNHA, EFEWONGBE B Primary Care Unavailab brittnee KEMP MD, EFEWONGBE B Primary Care Unavailab JADE Orlando MD Attending Unavailable JUSTO CUNHA, EFEWONGBE B Primary Care Unavailab SHEYLA Holt DO Attending Unavailable JUSTO CUNHA, EFEWONGBE B Primary Care Unavailab CHI Latham DO Attending Unavailable JUSTO CUNHA, EFEWONGBE B Primary Care Unavailab CHI Latham DO Attending Unavailable JUSTO CUNHA, EFEWONGBE B Primary Care Unavailab JACOB Coombs DO Attending Unavailable Chi Suarez Attending Unavailable Chi Suarez Referring Unavailable Oleghe, Efewongbe Primary Care Unavailable Oleghe, Efewongbe Primary Care Unavailable Ungur, Remus Attending Unavailable Oleghe, Efewongbe Primary Care Unavailable Alvarez Bingham Attending Unavailable Oleghe, Efewongbe Primary Care Unavailable Ungur, Remus Attending Unavailable Ungur, Remus Referring Unavailable Oleghe, Efewongbe Primary Care Unavailable Faraz Santana Attending Unavailable Oleghe, Efewongbe Referring Unavailable Oleghe, Efewongbe Attending Unavailable Oleghe, Efewongbe Primary Care Unavailable Oleghe, Efewongbe Primary Care Unavailable Oleghe, Efewongbe Referring Unavailable Goyo Lim Attending Unavailable Oleghe, Efewongbe Primary Care Unavailable Cristóbal Christiansen Attending Unavailable Oleghe, Efewongbe Primary Care Unavailable Loy Odell Attending Unavailable Oleghe, Efewongbe Primary Care Unavailable Tee Willett Attending Unavailable Oleghe, Efewongbe Primary Care Unavailable David Persaud Attending Unavailable Oleghe, Efewongbe Primary Care Unavailable John Terry Attending Unavailable John Terry Referring Unavailable Oleghe, Efewongbe Primary Care Unavailable Kaleb Molina Attending Unavailable Oleghe, Efewongbe Referring Unavailable Oleghe, Efewongbe Primary Care Unavailable Friend, Goyo Attending Unavailable Oleghe, Efewongbe Primary Care Unavailable John Terry Referring Unavailable John Terry Attending Unavailable Oleghe, Efewongbe Primary Care Unavailable Friend, Goyo Referring Unavailable Friend, Goyo Attending Unavailable Oleghe, Efewongbe Primary Care Unavailable Renny Anderson Attending Unavailable Renny Anderson Referring Unavailable Oleghe, Efewongbe Primary Care Unavailable Nette Diane Attending Unavailable Nette Diane Referring Unavailable Pratima Alvarado Attending Unavailable Oleghe, Efewongbe Primary Care Unavailable Oleghe, Efewongbe Primary Care Unavailable Cristóbal Christiansen Attending Unavailable Oleghe, Efewongbe Primary Care Unavailable Provider, Ed Physician Attending Unavailab le Oleghe, Efewongbe Referring Unavailable Oleghe, Efewongbe Primary [...] Oleghe, Efewongbe Primary Care Unavailable Oleghe, Efewongbe Attending Unavailable Oleghe, Efewongbe Referring Unavailable Oleghe, Efewongbe Primary Care Unavailable Oleghe, Efewongbe Referring Unavailable Oleghe, Efewongbe Primary Care Unavailable Moomaw, Silvio Attending Unavailable Oleghe, Efewongbe Primary Care Unavailable [...] Referring Unavailable Oleghe, Efewongbe Primary Care Unavailable Chi Suarez Attending Unavailable Oleghe, Efewongbe Referring Unavailable Oleghe, Efewongbe Primary Care Unavailable John Terry Attending Unavailable Oleghe, Efewongbe Referring Unavailable Oleghe, Efewongbe Primary Care Unavailable Azael Washington Attending Unavailable Oleghe, Efewongbe Referring Unavailable Oleghe, Efewongbe Primary Care Unavailable Friend, Goyo Attending Unavailable Oleghe, Efewongbe Referring Unavailable Oleghe, Efewongbe Primary Care Unavailable Azael Gibbs Attending Unavailable Oleghe, Efewongbe Referring Unavailable Oleghe, Efewongbe Primary Care Unavailable Ashley Juarez Attending Unavailable Oleghe, Efewongbe Primary Care Unavailable Kaleb Molina Attending Unavailable Oleghe, Efewongbe Primary Care Unavailable Flo Price Attending Unavailable Oleghe, Efewongbe Primary Care Unavailable Moomaw, Silvio Attending Unavailable Moomaw, Silvio Referring Unavailable Oleghe, Efewongbe Primary Care Unavailable Friend, Goyo Attending Unavailable Friend, Goyo Referring Unavailable Oleghe, Efewongbe Primary Care Unavailable Friend, Goyo Attending Unavailable Friend, Goyo Referring Unavailable Allergies Allergy Classification Reported Allergen(s) Allergy Type Date of Onset Reaction(s) Facility (20 sources) Naproxen; Translations: [naproxen] Drug Allergy 5 Other: See Comments, Nausea (finding), Intolerance [facility] (20 sources) OTC skin products [Other] Propensity to adverse reactions 0 Other: See Comments [facility] (11 sources) Zinc Oxide Drug Allergy 2 Unknown [facility] (3 sources) otc skin products Propensity to adverse reactions 2 Unknown [facility] Work Phone: (2 sources) OTHER; Translations: [OTHER] Propensity to adverse reactions (disorder) 0 [facility] (1 source) Naproxen Drug Allergy 5 [facility] (1 source) Zinc Oxide Drug Allergy 5 [facility] Medications Current Medications Medication Drug [...] every six hours as needed for pain [place] 325- 5 mg oral tablet Dose = 1 tab(s), Oral, q6h, PRN as needed for pain, X 3 day(s), # 12 tab(s), 0 Refill(s), Back pain, 77.3 Start Date: 06/25/21 Stop Date: 06/28/21 Status: Ordered Start: 06-20-2014 End: 09-05-2022 HYDROcodone-acetaminophen (N ORCO) 5-325 mg per tablet acyclovir 400 mg oral tablet (17 sources) Herpesvirus Nucleoside Analog DNA Polymerase Inhibitor, [...] Amoxicillin-Pot Clavulanate Discontinued 1 TABLET PO Q12H 20 May 09, 2022 1:00am May 18, 2022 11:22am Start: 07-01-2020 End: 10-13-2020 take 1 tablet by mouth twice daily Amoxicillin-Pot Clavulanate (Augmentin) 875-125 mg tablet Discontinued 1 TABLET PO TWICE A DAY July 01, 2020 1:00am October 13, 2020 11:47am atomoxetine 80 mg oral capsule (15 sources) Norepinephrine Reuptake Inhibitor Start: 11-19-2023 atomoxetine 80 mg oral capsule Dose : 80 mg = 1 cap(s), Oral, qAM, 0 Refill(s) Start Date: 11/19/23 Status: Ordered Repeat number: 1 Start: 08-15-2023 atomoxetine (S TRATTERA) 40 mg capsule 08/15/2023 Active Blood Pressure Monitor (20 sources) Start: 10-29-2019 Blood Pressure Monitor Active 0 .ROUTE .MEDSUPPLY October 29, 2019 4:00pm Check blood pressure daily for hypertension I10 Start: 10-29-2019 Blood Pressure Monitor Active 0 .ROUTE .MEDSUPPLY October 29, 2019 5:00pm Check blood pressure daily for hypertension I10 Start: 10-15-2019 End: 10-29-2019 Blood Pressure Monitor Disco ntinued 0 .ROUTE .MEDSUPPLY October 14, 2019 11:00pm October 29, 2019 4:01pm Check blood pressure daily for hypertension I10 Start: 10-15-2019 End: 10-29-2019 Blood Pressure Monitor Disco ntinued 0 .ROUTE .MEDSUPPLY October 15, 2019 12:00am October 29, 2019 [...] eight hours Gabapentin Active 0 .ROUTE .COMPLEX July 25, 2022 11:47am take 1 capsule by mouth every 8 hours Start: 01-07-2021 End: 01-20-2022 gabapentin (NEURONTIN) 300 m g capsule 02/08/2021 Active Start: 11-18-2020 End: 01-07-2021 take 100 mg by mouth every eight hours Gabapentin Discontinued 100 MG PO Q8H December 05, 2020 4:59pm January 07, 2021 [...] FOOD hydrOXYzine pamoate 25 mg oral capsule (11 sources) Antihistamine Start: 4 hydrOXYzine pamoate 25 [...] 12 hrs LORazepam 0.5 mg oral tablet (11 sources) Benzodiazepine Start: 11-19-2023 LORazepam 0.5 mg [...] njection (DEPO-PROVERA) Start: 07-21-2021 End: 05-30-2024 medroxyPROGESTERone (DEPO-AZ OVERA) 150 mg/mL Inject 1 mL intramuscularly [...] MG PO THREE TIMES A DAY 6 0 August 27, 2019 12:00am February 13, 2020 3:35pm Comment on above: Take 1 tablet by jaki th three times daily as needed. rimegepant 75 [...] Inhibitor Antibacterial, Sulfonamide Antimicrobial Start: 3 End: 3 take 1 tablet by mouth twice daily [...] Comment on above: Take 1 tablet by [facility] twice daily for 7 days. SUMAtriptan 25 mg oral tablet (20 sources) Serotonin-1b and Serotonin-1d Receptor Agonist Start: 10-08-2019 End: 09-05-2022 SUMAtriptan 25 mg oral tablet 0 Refill(s) Start Date: 10/08/19 Status: Ordered Repeat number: 1 Start: 06-17-2019 End: 11-09-2021 take 1 tablet by mouth once daily Sumatriptan Succinate Discontinued 0 PO .COMPLEX 14 August 08, 2019 2:01pm August 21, 2019 [...] August 22, 2019 August 29, 2019 12:02am [id number] 200 actuat albuterol 0.09 mg/actuat metered dose [...] capsule (19 sources) Non-narcotic Antitussive Start: 02-17-20 End: 05-18-19 23 take 200 mg by [...] 11-27-2019 take 1 dose by mouth once Sasha dryl Dose : 50 mg =, Oral, Once, 0 Refill(s) Start Date: 11/27/19 Status: Ordered famotidine 20 mg oral tablet (17 sources) Histamine-2 Receptor Antagonist Start: 01-23-2021 End: [...] MG PO TWICE A DAY 02 08March 172 1:00am May 18, 2022 11:23am must administer with a meal/food nitrofurantoin, macrocrystals 25 mg / nitrofurantoin, monohydrate 75 mg oral capsule (11 sources) Nitrofuran Antibacterial Start: 08-27-2019 End: 09-01-2019 take 1 capsule by mouth every twelve hours at mealtime Nitrofurantoin Monohyd/M-Cryst (Macrobid) 100 mg capsule Discontinued 100 MG PO Q12H 10 August 27, 2019 12:00am September 01, 2019 12:02am must administer with a meal/food omeprazole 40 mg delayed release oral capsule (20 sources) Proton Pump Inhibitor Start: 07-22-2021 End: 12-20-2021 take 40 mg by mouth once daily [...] left leg] Episodic Other connective tissue disease (2 sources) Disorder of soft tissue; Translations: [Other specified soft tissue disorders] Onset: 5 Episodic Other connective tissue disease (1 source) Other specified soft tissue disorders; Translations: [Other specified soft tissue disorders] Onset: 5 Episodic Other connective tissue disease (1 source) Achilles tendinitis, left leg; Translations: [Achilles tendinitis, left leg] Onset: 5 Episodic Other connective tissue disease (2 sources) Pain in left lower leg; Translations: [Pain in left lower leg] Onset: 5 Episodic Other connective tissue disease (1 source) Radial styloid tenosynovitis [de Quervain]; Translations: [Radial styloid tenosynovitis [de Quervain]] Onset: 5 Episodic Other gastrointestinal disorders (1 [...] non-traumatic joint disorders (1 source) Pain in right wrist; Translations: [Pain in right wrist] Onset: 5 Episodic Other screening for suspected [...] 01-27-2021 Episodic Residual codes; unclassified (1 source) Edema, unspecified; Translations: [Edema, unspecified] Onset: 5 Episodic Residual codes; unclassified (1 source) Procedure [...] Backache; Translations: [Dorsalgia, unspecified] Onset: 2 Episodic Sprains and strains (20 sources) Sprain of ankle; Translations: [Sprain of unspecified ligament of left ankle, initial encounter] Onset: 2 Episodic Substance-related disorders (1 source) [...] drug level monitoring] Onset: 07-14-2024 Episodic Other connective tissue disease (1 source) Achilles tendinitis, unspecified leg; Translations: [Achilles tendinitis, unspecified leg] Onset: 08-19-2024 Episodic Other ear and sense organ disorders [...] source) Dysphonia; Translations: [Dysphonia] Onset: 07-14-2024 Episodic Results Test Name Value Interpretation Reference Range Facility Emergency Department Summary on 11-25-2024 Emergency Department Summary Normal [facility] Urgent Care Visit Reporton 0 11-17-2024 Urgent Care Visit Report Normal [facility] Internal Medicine Office Vis iton 11-14-2024 Internal Medicine Office Visit Normal [facility] .Auto Diffon 11-10-2024 Basophil, Absolute 0.1 10 3/mcL Normal 0.0-0.3 [facility] Comment on above: Performed By: #### T SCOTT MACK, TRACY, BMP, PBNP, GFR, MDW, CBC ####[id number] [place], [place] [address] Basophils/100 WBC (Bld) 1.2 % Normal 0.0-2.5 [facility] Comment on above: Performed By: #### T SCOTT MACK, TRACY, BMP, PBNP, GFR, MDW, CBC ####[address] [place], [place] [address] Eosinophil, Absolute 0.1 10 3/mcL Normal 0.0-0.7 [facility] Comment on above: Performed By: #### T ROPHS, ADIFF, ANEU, BMP, PBNP, GFR, MDW, CBC ####[address] [place], [place] [address] Eosinophils/100 WBC (Bld) 3.2 % Normal 0.0-6.0 [facility] Comment on above: Performed By: #### T ROPHS, ADIFF, ANEU, BMP, PBNP, GFR, MDW, CBC ####[address] [place], [place] [address] Lymphocyte, Absolute 1.4 10 3/mcL Normal 0.9-4.3 [facility] Comment on above: Performed By: #### T ROPHS, ADIFF, ANEU, BMP, PBNP, GFR, MDW, CBC ####[address] [place], [place] [address] Lymphocytes/100 WBC (Bld) 32.2 % Normal 20.0-40.0 [facility] Comment on above: Performed By: #### T ROPHS, ADIFF, ANEU, BMP, PBNP, GFR, MDW, CBC ####[address] [place], [place] [address] Monocyte, Absolute 0.4 10 3/mcL Normal 0.1-1.4 [facility] Comment on above: Performed By: #### T ROPHS, ADIFF, ANEU, BMP, PBNP, GFR, MDW, CBC ####[address] [place], [place] [address] Monocytes/100 WBC (Bld) 9.9 % Normal 2.0-13.0 [facility] Comment on above: Performed By: #### T ROPHS, ADIFF, ANEU, BMP, PBNP, GFR, MDW, CBC ####[address] [place], [place] [address] Neutrophils/100 WBC (Bld) 53.5 % Normal 50.0-75.0 [facility] Comment on above: Performed By: #### T FREDERICK, ASHLEYIFF, ANEU, BMP, PBNP, GFR, MDW, CBC ####[address] [place], [place] [address] .GFRon 11-10-2024 Estimated Glomerular Filtration Rate 101 ml/min/1.73sqm Normal [facility] Comment on above: Result Comment: Stages of Chronic Kidney Disease (CKD) Stage Description eGFR(ml/min/1.73 sq.m.) CKD 1 Normal kidney function or >=90 normal kindney function with possible kidney damage (ex. Proteinuria) CKD 2 Kidney damage with mild loss 60-89 of kidney function CKD 3a Mild to moderate loss of kidney 45-59 function CKD 3b Moderate to severe loss of 30-44 of kindey function CKD 4 Severe loss of kidney function 15-29 CKD 5 Kidney failure <15 Note: (go live 2024) the eGFR calculation was updated to the 2020 CKD-EPI creatinine equation without a race factor to calculate the eGFR results. Performed By: #### T FREDERICK, ASHLEYIFF, ANEU, BMP, PBNP, GFR, MDW, CBC ####[address] [place], [place] [address] .MDWon 11-10-2024 Monocyte Distribution Width 17.06 Normal 0.00-20.00 [facility] Comment on above: Result Comment: For ED adult patients suspected of sepsis, MDW<=20.0 does not rule out sepsis or risk of sepsis Performed By: #### T SCOTT MACK, ANEU, BMP, PBNP, GFR, MDW, CBC ####[address] [place], [place] [address] .NEUABSon 11-10-2024 Neutrophil, Absolute 2.3 10 3/mcL Normal 2.3-8.1 [facility] Comment on above: Performed By: #### T FREDERICK, ADIFF, ANEU, BMP, PBNP, GFR, MDW, CBC ####[address] [place], [place] [address] ALBon 11-10-2024 Albumin Level 3.1 G/dL Low 3.5-5.0 [facility] Comment on above: Performed By: #### A LB ####[facility] [place], [place] [address] BMPon 11-10-2024 BUN/Creatinine Ratio 19 ratio Normal 7-27 [facility] Comment on above: Performed By: #### T ROPHS, ADIFF, ANEU, BMP, PBNP, GFR, MDW, CBC ####[facility] [place], [place] [address] Calcium [Mass/Vol] 8.9 mg/dL Normal 8.4-10.2 [facility] Comment on above: Performed By: #### T ROPHS, ADIFF, ANEU, BMP, PBNP, GFR, MDW, CBC ####[address] [place], [place] [address] Chloride [Moles/Vol] 105 mmol/L Normal 98-107 [facility] Comment on above: Performed By: #### T ROPHS, ADIFF, ANEU, BMP, PBNP, GFR, MDW, CBC ####[address] [place], [place] [address] CO2 [Moles/Vol] 31 mmol/L High 22-29 [facility] Comment on above: Performed By: #### T ROPHS, ADIFF, ANEU, BMP, PBNP, GFR, MDW, CBC ####[facility] [place], [place] [address] Creatinine [Mass/Vol] 0.79 mg/dL Normal 0.51-0.95 [facility] Comment on above: Performed By: #### T ROPHS, ADIFF, ANEU, BMP, PBNP, GFR, MDW, CBC ####[facility] [place], [place] [address] Electrolyte Balance 5.0 mEq/L Normal 4.0-15.0 [facility] Comment on above: Performed By: #### T ROPHS, ADIFF, ANEU, BMP, PBNP, GFR, MDW, CBC ####[facility] [place], [place] [address] Glucose [Mass/Vol] 85 mg/dL Normal 70-105 [facility] Comment on above: Performed By: #### T ROPHS, ADIFF, ANEU, BMP, PBNP, GFR, MDW, CBC ####[address] [place], [place] [address] Potassium [Moles/Vol] 3.9 mmol/L Normal 3.5-5.1 [facility] Comment on above: Performed By: #### T ROPHS, ADIFF, ANEU, BMP, PBNP, GFR, MDW, CBC ####[address] [place], [place] [address] Sodium [Moles/Vol] 141 mmol/L Normal 136-145 [facility] Comment on above: Performed By: #### T FREDERICK, ADIFF, ANEU, BMP, PBNP, GFR, MDW, CBC ####[address] [place], [place] [address] Urea nitrogen [Mass/Vol] 15 mg/dL Normal 7-18 [facility] Comment on above: Performed By: #### T FREDERICK, ADIFF, ANEU, BMP, PBNP, GFR, MDW, CBC ####[address] [place], [place] [address] CBCon 11-10-2024 Erythrocyte distribution width (RBC) [Ratio] 13.3 % Normal 11.5-15.5 [facility] Comment on above: Performed By: #### T FREDERICK, ADIFF, ANEU, BMP, PBNP, GFR, MDW, CBC ####[address] [place], [place] [address] Hematocrit (Bld) [Volume fraction] 43.0 % Normal 34.0-46.0 [facility] Comment on above: Performed By: #### T ROPDANTE, ADIFF, ANEU, BMP, PBNP, GFR, MDW, CBC ####[address] [place], [place] [address] Hgb 14.4 G/dL Normal 12.0-16.0 [facility] Comment on above: Performed By: #### T ROPHS, ADIFF, ANEU, BMP, PBNP, GFR, MDW, CBC ####[address] [place], [place] [address] MCH (RBC) [Entitic mass] 29.4 pg Normal 27.0-33.0 [facility] Comment on above: Performed By: #### T ROPHS, ADIFF, ANEU, BMP, PBNP, GFR, MDW, CBC ####[address] [place], [place] [address] MCHC 33.5 G/dL Normal 32.0-36.0 [facility] Comment on above: Performed By: #### T ROPDANTE, ADIFF, ANEU, BMP, PBNP, GFR, MDW, CBC ####[address] [place], [place] [address] MCV (RBC) [Entitic vol] 87.9 fL Normal 80.0-99.0 [facility] Comment on above: Performed By: #### T ROPDANTE, ADIFF, ANEU, BMP, PBNP, GFR, MDW, CBC ####[facility] [place], [place] [address] Platelet 299 10 3/mcL Normal 150-450 [facility] Comment on above: Performed By: #### T ROPDANTE, ADIFF, ANEU, BMP, PBNP, GFR, MDW, CBC ####[address] [place], [place] [address] Platelet mean volume (Bld) [Entitic vol] 8.6 fL Normal 6.6-10.5 [facility] Comment on above: Performed By: #### T ROPHS, ADIFF, ANEU, BMP, PBNP, GFR, MDW, CBC ####[address] [place], [place] [address] RBC 4.89 10 6/mcL Normal 4.10-5.30 [facility] Comment on above: Performed By: #### T ROPHS, ADIFF, ANEU, BMP, PBNP, GFR, MDW, CBC ####[address] [place], [place] [address] WBC 4.3 10 3/mcL Low 4.5-10.8 [facility] Comment on above: Performed By: #### T ROPDANTE, SCOTT, ANEU, BMP, PBNP, GFR, MDW, CBC ####[facility] [place], [place] [address] LABORATORYOrdered By: SYSTEM SYSTEM on 11-10-2024 Albumin BCP dye [Mass/Vol] 3.1 G/dL Low 3.5 - 5.0 G/dL AO ADM SS Basophils (Bld) [#/Vol] 0.1 103/mcL Normal 0.0 - 0.3 10^3/mcL AO Workflow SS Basophils/100 WBC (Bld) 1.2 % Normal 0.0 - 2.5 % AO Workflow SS Calcium [Mass/Vol] 8.9 mg/dL Normal 8.4 - 10. 2 mg/dL AO ADM SS Chloride [Moles/Vol] 105 mmol/L Normal 98 - 10 7 mmol/L AO ADM SS CO2 [Moles/Vol] 31 mmol/L High 22 - 29 mmol/L AO AD M SS Creatinine [Mass/Vol] 0.79 mg/dL Normal 0.51 - 0.95 mg/dL AO ADM SS Electrolyte Balance 5.0 mEq/L Normal 4.0 - 15 .0 mEq/L AO ADM SS Eosinophil, Absolute 0.1 103/mcL Normal 0.0 - 0 .7 10^3/mcL AO Workflow SS Eosinophils/100 WBC (Bld) 3.2 % Normal 0.0 - 6.0 % AO Workflow SS Erythrocyte distribution width (RBC) [Ratio] 13.3 % Normal 11.5 - 15.5 % AO Workflow SS Estimated Glomerular Filtration Rate 101 ml/min/1.73sqm Invalid Interpretation Code AO Chemistry S Comment on above: Interpretive Data: Stages of Chronic Kidney Disease (CKD) Stage Description eGFR(ml/min/1.73 sq.m.) CKD 1 Normal kidney function or >=90 normal kindney function with possible kidney damage (ex. Proteinuria) CKD 2 Kidney damage with mild loss 60-89 of kidney function CKD 3a Mild to moderate loss of kidney 45-59 function CKD 3b Moderate to severe loss of 30-44 of kindey function CKD 4 Severe loss of kidney function 15-29 CKD 5 Kidney failure <15 Note: (go live 2024) the eGFR calculation was updated to the 2020 CKD-EPI creatinine equation without a race factor to calculate the eGFR results. Glucose [Mass/Vol] 85 mg/dL Normal 70 - 105 mg/dL AO ADM SS Hematocrit (Bld) [Volume fraction] 43.0 % Normal 34.0 - 46.0 % AO Workflow SS Hemoglobin (Bld) [Mass/Vol] 14.4 G/dL Normal 12.0 - 16.0 G/dL AO Workflow SS Lymphocytes (Bld) [#/Vol] 1.4 103/mcL Normal 0.9 - 4.3 10^3/mcL AO Workflow SS Lymphocytes/100 WBC (Bld) 32.2 % Normal 20.0 - 40.0 % AO Workflow SS MCH (RBC) [Entitic mass] 29.4 pg Normal 27.0 - 33.0 pg AO Workflow SS MCHC 33.5 G/dL Normal 32.0 - 36.0 G/dL AO Workflow SS MCV (RBC) [Entitic vol] 87.9 fL Normal 80.0 - 99.0 fL AO Workflow SS Monocyte distribution width Auto (Bld) [Entitic vol] 17.06 1 Normal 0.00 - 20.00 AO Workflow SS Comment on above: Result Comment: For ED adult patients suspected of sepsis, MDW<=20.0 does not rule out sepsis or risk of sepsis Monocytes (Bld) [#/Vol] 0.4 103/mcL Normal 0.1 - 1.4 10^3/mcL AO Workflow SS Monocytes/100 WBC (Bld) 9.9 % Normal 2.0 - 13.0 % AO Workflow SS Natriuretic peptide.B prohormone N-Terminal [Mass/Vol] 219 pg/mL High 0 - 125 pg/mL AO ADM SS Comment on above: Interpretive Data: N T-proBNP results of less than 300 pg/mL effectively rules out acute congestive heart failure with 99% negative predictive value. Neutrophils (Bld) [#/Vol] 2.3 103/mcL Normal 2.3 - 8.1 10^3/mcL AO Workflow SS Neutrophils/100 WBC (Bld) 53.5 % Normal 50.0 - 75.0 % AO Workflow SS Platelet mean volume (Bld) [Entitic vol] 8.6 fL Normal 6.6 - 10.5 fL AO Workflow SS Platelets (Bld) [#/Vol] 299 103/mcL Normal 150 - 450 10^3/mcL AO Workflow SS Potassium [Moles/Vol] 3.9 mmol/L Normal 3.5 - 5.1 mmol/L AO ADM SS RBC (Bld) [#/Vol] 4.89 106/mcL Normal 4.10 - 5.3 0 10^6/mcL AO Workflow SS Sodium [Moles/Vol] 141 mmol/L Normal 136 - 145 mmol/L AO ADM SS Troponin I.cardiac DL <= 0.01 ng/mL [Mass/Vol] ng/L Normal 0 - 51 ng/L AO ADM SS Comment on above: Interpretive Data: H igh Sensitive Troponin I Reference Ranges: Female: 0-51 ng/L Male: 0-76 ng/L Testing performed on byUs using a homogeneous sandwich chemiluminescent immunoassay based on knowNormal technology. Urea nitrogen [Mass/Vol] 15 mg/dL Normal 7 - 18 mg/dL AO ADM SS Urea nitrogen/Creatinine [Mass ratio] 19 ratio Normal 7 - 27 ratio AO ADM SS WBC (Bld) [#/Vol] 4.3 103/mcL Low 4.5 - 10.8 10^3/mcL AO Workflow SS PBNPon 11-10-2024 Natriuretic peptide B (Bld) [Mass/Vol] 219 pg/mL High 0-125 [facility] Comment on above: Result Comment: NT-p roBNP results of less than 300 pg/mL effectively rules out acute congestive heart failure with 99% negative predictive value. Performed By: #### T SCOTT MACK, ANEU, BMP, PBNP, GFR, MDW, CBC ####[address] [place], [place] [address] [facility] High Sensitivity Troponin I <4 Normal 0-51 [facility] Comment on above: Result Comment: High Sensitive Troponin I Reference Ranges: Female: 0-51 ng/L Male: 0-76 ng/L Testing performed on byUs using a homogeneous sandwich chemiluminescent immunoassay based on knowNormal technology. Performed By: #### T SCOTT MACK, ANEU, BMP, PBNP, GFR, MDW, CBC ####[address] [place], [place] [address] XR CHEST 1 VIEWon 11-10-2024 XR CHEST 1 VIEW ORIGINAL EXAMINATION: ONE XRAY VIEW OF THE CHEST11/10/2024 6:39 pm COMPARISON: 11/09/2024 HISTORY: ORDERING SYSTEM PROVIDED HISTORY: Reason for Exam: chest pain FINDINGS: The lungs are without acute focal process. There is no effusion or pneumothorax. The cardiomediastinal silhouette is without acute process. The osseous structures are without acute process. IMPRESSION: No acute process. CORRECTION I have personally reviewed the images and above dictation and made corrections where appropriate. Interpreted by: Zee Dickson Preliminary Report By: Mike Whitlock Electronically signed By Zee Dickson Dictated Date: 11/10/2024 7:10:18 PM Prelim Date: 11/10/2024 7:11:09 PM Sign Date: 11/10/2024 8:10:16 PM Ordering Provider: SHELBIE TAFOYA Interpreted by: Zee Dickson Preliminary Report By: Mike Whitlock Electronically signed By Zee Dickson Dictated Date: 11/10/2024 7:10:18 PM Prelim Date: 11/10/2024 7:11:09 PM Sign Date: 11/10/2024 8:10:16 PM Ordering Provider: SHELBIE TAFOYA Normal [facility] .Auto Diffon 11-09-2024 Basophil, Absolute 0.0 10 3/mcL Normal 0.0-0.3 [facility] Comment on above: Performed By: #### G FR, TROPHS, BMP, CBC, MDW, ADIFF, PBNP, ANEU #### [address] [address] Basophils/100 WBC (Bld) 0.9 % Normal 0.0-2.5 [facility] Comment on above: Performed By: #### G FR, TROPHS, BMP, CBC, MDW, ADIFF, PBNP, ANEU #### [address] [address] Eosinophil, Absolute 0.1 10 3/mcL Normal 0.0-0.7 [facility] Comment on above: Performed By: #### G FR, TROPHS, BMP, CBC, MDW, ADIFF, PBNP, ANEU #### [address] [address] Eosinophils/100 WBC (Bld) 1.9 % Normal 0.0-6.0 [facility] Comment on above: Performed By: #### G FR, TROPHS, BMP, CBC, MDW, ADIFF, PBNP, ANEU #### [address] [address] Lymphocyte, Absolute 1.4 10 3/mcL Normal 0.9-4.3 [facility] Comment on above: Performed By: #### G FR, TROPHS, BMP, CBC, MDW, ADIFF, PBNP, ANEU #### [address] [address] Lymphocytes/100 WBC (Bld) 26.2 % Normal 20.0-40.0 [facility] Comment on above: Performed By: #### G FR, TROPHS, BMP, CBC, MDW, ADIFF, PBNP, ANEU #### [address] [address] Monocyte, Absolute 0.6 10 3/mcL Normal 0.1-1.4 [facility] Comment on above: Performed By: #### G FR, TROPHS, BMP, CBC, MDW, ADIFF, PBNP, ANEU #### [address] [address] Monocytes/100 WBC (Bld) 12.0 % Normal 2.0-13.0 [facility] Comment on above: Performed By: #### G FR, TROPHS, BMP, CBC, MDW, ADIFF, PBNP, ANEU #### [address] [address] Neutrophils/100 WBC (Bld) 59.0 % Normal 50.0-75.0 [facility] Comment on above: Performed By: #### G FR, TROPHS, BMP, CBC, MDW, ADIFF, PBNP, ANEU #### [address] [address] .GFRon 11-09-2024 Estimated Glomerular Filtration Rate 80 ml/min/1.73sqm Normal [facility] Comment on above: Result Comment: Stages of Chronic Kidney Disease (CKD) Stage Description eGFR(ml/min/1.73 sq.m.) CKD 1 Normal kidney function or >=90 normal kindney function with possible kidney damage (ex. Proteinuria) CKD 2 Kidney damage with mild loss 60-89 of kidney function CKD 3a Mild to moderate loss of kidney 45-59 function CKD 3b Moderate to severe loss of 30-44 of kindey function CKD 4 Severe loss of kidney function 15-29 CKD 5 Kidney failure <15 Note: (go live 2024) the eGFR calculation was updated to the 2020 CKD-EPI creatinine equation without a race factor to calculate the eGFR results. Performed By: #### G FR, TROPHS, BMP, CBC, MDW, ADIFF, PBNP, ANEU #### [address] [address] .MDWon 11-09-2024 Monocyte Distribution Width 17.05 Normal 0.00-20.00 [facility] Comment on above: Result Comment: For ED adult patients suspected of sepsis, MDW<=20.0 does not rule out sepsis or risk of sepsis Performed By: #### G FR, TROPHS, BMP, CBC, MDW, ADIFF, PBNP, ANEU #### [address] [address] .NEUABSon 11-09-2024 Neutrophil, Absolute 3.1 10 3/mcL Normal 2.3-8.1 [facility] Comment on above: Performed By: #### G FR, TROPHS, BMP, CBC, MDW, ADIFF, PBNP, ANEU #### [address] [address] BMPon 11-09-2024 BUN/Creatinine Ratio 14 ratio Normal 7-27 [facility] Comment on above: Performed By: #### G FR, TROPHS, BMP, CBC, MDW, ADIFF, PBNP, ANEU #### [address] [address] Calcium [Mass/Vol] 9.0 mg/dL Normal 8.4-10.2 [facility] Comment on above: Performed By: #### G FR, TROPHS, BMP, CBC, MDW, ADIFF, PBNP, ANEU #### [address] [address] Chloride [Moles/Vol] 105 mmol/L Normal 98-107 [facility] Comment on above: Performed By: #### G FR, TROPHS, BMP, CBC, MDW, ADIFF, PBNP, ANEU #### [address] [address] CO2 [Moles/Vol] 31 mmol/L High 22-29 [facility] Comment on above: Performed By: #### G FR, TROPHS, BMP, CBC, MDW, ADIFF, PBNP, ANEU #### [address] [address] Creatinine [Mass/Vol] 0.96 mg/dL High 0.51-0.95 [facility] Comment on above: Performed By: #### G FR, TROPHS, BMP, CBC, MDW, ADIFF, PBNP, ANEU #### [address] [address] Electrolyte Balance 7.0 mEq/L Normal 4.0-15.0 [facility] Comment on above: Performed By: #### G FR, TROPHS, BMP, CBC, MDW, ADIFF, PBNP, ANEU #### [address] [address] Glucose [Mass/Vol] 109 mg/dL High 70-105 [facility] Comment on above: Performed By: #### G FR, TROPHS, BMP, CBC, MDW, ADIFF, PBNP, ANEU #### [address] [address] Potassium [Moles/Vol] 3.9 mmol/L Normal 3.5-5.1 [facility] Comment on above: Performed By: #### G FR, TROPHS, BMP, CBC, MDW, ADIFF, PBNP, ANEU #### [address] [address] Sodium [Moles/Vol] 143 mmol/L Normal 136-145 [facility] Comment on above: Performed By: #### G FR, TROPHS, BMP, CBC, MDW, ADIFF, PBNP, ANEU #### [address] [address] Urea nitrogen [Mass/Vol] 13 mg/dL Normal 7-18 [facility] Comment on above: Performed By: #### G FR, TROPHS, BMP, CBC, MDW, ADIFF, PBNP, ANEU #### [address] [address] CBCon 11-09-2024 Erythrocyte distribution width (RBC) [Ratio] 13.5 % Normal 11.5-15.5 [facility] Comment on above: Performed By: #### G FR, TROPHS, BMP, CBC, MDW, ADIFF, PBNP, ANEU #### [address] [address] Hematocrit (Bld) [Volume fraction] 41.1 % Normal 34.0-46.0 [facility] Comment on above: Performed By: #### G FR, TROPHS, BMP, CBC, MDW, ADIFF, PBNP, ANEU #### [address] [address] Hgb 13.9 G/dL Normal 12.0-16.0 [facility] Comment on above: Performed By: #### G FR, TROPHS, BMP, CBC, MDW, ADIFF, PBNP, ANEU #### [address] [address] MCH (RBC) [Entitic mass] 29.7 pg Normal 27.0-33.0 [facility] Comment on above: Performed By: #### G FR, TROPHS, BMP, CBC, MDW, ADIFF, PBNP, ANEU #### [address] [address] MCHC 33.8 G/dL Normal 32.0-36.0 [facility] Comment on above: Performed By: #### G FR, TROPHS, BMP, CBC, MDW, ADIFF, PBNP, ANEU #### [address] [address] MCV (RBC) [Entitic vol] 87.9 fL Normal 80.0-99.0 [facility] Comment on above: Performed By: #### G FR, TROPHS, BMP, CBC, MDW, ADIFF, PBNP, ANEU #### [address] [address] Platelet 311 10 3/mcL Normal 150-450 [facility] Comment on above: Performed By: #### G FR, TROPHS, BMP, CBC, MDW, ADIFF, PBNP, ANEU #### [address] [address] Platelet mean volume (Bld) [Entitic vol] 8.4 fL Normal 6.6-10.5 [facility] Comment on above: Performed By: #### G FR, TROPHS, BMP, CBC, MDW, ADIFF, PBNP, ANEU #### [address] [address] RBC 4.68 10 6/mcL Normal 4.10-5.30 [facility] Comment on above: Performed By: #### G FR, TROPHS, BMP, CBC, MDW, ADIFF, PBNP, ANEU #### [address] [address] WBC 5.2 10 3/mcL Normal 4.5-10.8 [facility] Comment on above: Performed By: #### G FR, TROPHS, BMP, CBC, MDW, ADIFF, PBNP, ANEU #### [address] [address] CBC W/Diff, Automatedon 07-0 6-2024 Absolute Lymph 1.16 X10 3/uL Normal 0.83-4.51 [facility] Comment on above: Performed By: #### L 100.0100, L500.4050 ####[facility] [address] [place], [address] Absolute Neut 5.1 X10 3/uL Normal 2.0-7.7 [facility] Comment on above: Performed By: #### L 100.0100, L500.4050 ####[facility] [address] [place], [address] Basophils/100 WBC (Bld) 0.8 % Normal 0-1 [facility] Comment on above: Performed By: #### L 100.0100, L500.4050 ####[facility] [address] [place], [address] Eosinophils/100 WBC (Bld) 1.9 % Normal 0-5 [facility] Comment on above: Performed By: #### L 100.0100, L500.4050 ####[facility] [address] [place], [address] Erythrocyte distribution width (RBC) [Ratio] 12.8 % Normal 11.6-14.6 [facility] Comment on above: Performed By: #### L 100.0100, L500.4050 ####[facility] [address] [place], [address] Hematocrit (Bld) [Volume fraction] 41.9 % Normal 37-47 [facility] Comment on above: Performed By: #### L 100.0100, L500.4050 ####[facility] [address] [place], [address] Hemoglobin (Bld) [Mass/Vol] 14.0 g/dL Normal 12.0-15.0 [facility] Comment on above: Performed By: #### L 100.0100, L500.4050 ####[facility] [address] [place], [address] IG% 0.100 Normal 0.0-0.9 [facility] Comment on above: Result Comment: IG% - Immature Granulocytes (promyelocytes, myelocytes andmetamyelocytes) > 1% indicates that a LEFT SHIFT is Present. Performed By: #### L 100.0100, L500.4050 ####[facility] [address] [place], [address] Lymphocytes/100 WBC (Bld) 15.9 % Low 19-41 [facility] Comment on above: Performed By: #### L 100.0100, L500.4050 ####[facility] [address] [place], [address] MCH (RBC) [Entitic mass] 29.4 pg Normal 27.0-32.0 [facility] Comment on above: Performed By: #### L 100.0100, L500.4050 ####[facility] [address] [place], [address] MCHC (RBC) [Mass/Vol] 33.4 g/dL Normal 32-36 [facility] Comment on above: Performed By: #### L 100.0100, L500.4050 ####[facility] [address] [place], [address] MCV (RBC) [Entitic vol] 88.0 fL Normal 81-99 [facility] Comment on above: Performed By: #### L 100.0100, L500.4050 ####[facility] [address] [place], [address] Monocytes/100 WBC (Bld) 11.8 % High 0-10 [facility] Comment on above: Performed By: #### L 100.0100, L500.4050 ####[facility] [address] [place], [address] Neutrophils/100 WBC (Bld) 69.5 % Normal 47-70 [facility] Comment on above: Performed By: #### L 100.0100, L500.4050 ####[facility] [address] [place], [address] Nucleated RBC (Bld) [#/Vol] 0 10*3/uL Normal 0-5 [facility] Comment on above: Performed By: #### L 100.0100, L500.4050 ####[facility] [address] [place], [address] Platelet mean volume (Bld) [Entitic vol] 10.0 fL Normal 6.2-12.0 [facility] Comment on above: Performed By: #### L 100.0100, L500.4050 ####[facility] [address] [place], [address] Platelets (Bld) [#/Vol] 340 10*3/uL Normal 150-450 [facility] Comment on above: Performed By: #### L 100.0100, L500.4050 ####[facility] [address] [place], [address] RBC (Bld) [#/Vol] 4.76 10*6/uL Normal 4.2-5.4 [facility] Comment on above: Performed By: #### L 100.0100, L500.4050 ####[facility] [address] [place], [address] RDW SD 41.1 fl Normal 35.1-43.9 [facility] Comment on above: Performed By: #### L 100.0100, L500.4050 ####[facility] [address] [place], [address] WBC (Bld) [#/Vol] 7.3 10*3/uL Normal 4.4-11.0 [facility] Comment on above: Performed By: #### L 100.0100, L500.4050 ####[facility] [address] [place], [address] Comprehensive Metabolic Prof [facility] 11-09-2024 Albumin [Mass/Vol] 3.9 g/dL Normal 3.5-5.0 [facility] Comment on above: Performed By: #### L 100.0100, L500.4050 ####[facility] [address] [place], [address] Albumin/Globulin [Mass ratio] 1.4 {ratio} Normal 0.9-2.4 [facility] Comment on above: Performed By: #### L 100.0100, L500.4050 ####[facility] [address] [place], [address] ALK PHOS 202 U/L High 35-104 [facility] Comment on above: Performed By: #### L 100.0100, L500.4050 ####[facility] [address] [place], [address] ALT [Catalytic activity/Vol] 76 U/L High <=34 [facility] Comment on above: Performed By: #### L 100.0100, L500.4050 ####[facility] [address] [place], [address] AST [Catalytic activity/Vol] 40 U/L High <=31 [facility] Comment on above: Performed By: #### L 100.0100, L500.4050 ####[facility] [address] [place], [address] Bilirubin [Mass/Vol] 0.34 mg/dL Normal 0.00-1.30 [facility] Comment on above: Performed By: #### L 100.0100, L500.4050 ####[facility] [address] [place], [address] BUN/CRE 12.5 RATIO Normal 10-20 [facility] Comment on above: Performed By: #### L 100.0100, L500.4050 ####[facility] [address] [place], [address] Calcium [Mass/Vol] 9.1 mg/dL Normal 7.6-11.0 [facility] Comment on above: Performed By: #### L 100.0100, L500.4050 ####[facility] [address] [place], [address] Chloride [Moles/Vol] 104 mmol/L Normal 98-108 [facility] Comment on above: Performed By: #### L 100.0100, L500.4050 ####[facility] [address] [place], [address] CO2 [Moles/Vol] 25.7 mmol/L Normal 21.0-32.0 [facility] Comment on above: Performed By: #### L 100.0100, L500.4050 ####[facility] [address] [place], [address] Creatinine [Mass/Vol] 0.93 mg/dL Normal 0.70-1.20 [facility] Comment on above: Performed By: #### L 100.0100, L500.4050 ####[facility] [address] [place], [address] ECRCL 94.75 ml/min Normal 50-250 [facility] Comment on above: Performed By: #### L 100.0100, L500.4050 ####[facility] [address] [place], [address] GAP 9 Normal 5-15 [facility] Comment on above: Performed By: #### L 100.0100, L500.4050 ####[facility] [address] [place], [address] GFR/1.73 sq M.predicted among non-blacks MDRD (S/P/Bld) [Vol rate/Area] 83 mL/min/{1.73_m2} Normal >60 [facility] Comment on above: Result Comment: mL/m in/1.73m2 CKD-EPI Creatinine Equation (2020) Performed By: #### L 100.0100, L500.4050 ####[facility] [address] [place], [address] Globulin (S) [Mass/Vol] 2.7 g/dL Normal 2.2-4.2 [facility] Comment on above: Performed By: #### L 100.0100, L500.4050 ####[facility] [address] [place], [address] Glucose [Mass/Vol] 101 mg/dL High 70-99 [facility] Comment on above: Performed By: #### L 100.0100, L500.4050 ####[facility] [address] [place], [address] Potassium [Moles/Vol] 4.2 mmol/L Normal 3.3-5.1 [facility] Comment on above: Performed By: #### L 100.0100, L500.4050 ####[facility] [address] [place], [address] Sodium [Moles/Vol] 139 mmol/L Normal 133-145 [facility] Comment on above: Performed By: #### L 100.0100, L500.4050 ####[facility] [address] [place], [address] T PROT 6.6 g/dL Normal 5.9-8.4 [facility] Comment on above: Performed By: #### L 100.0100, L500.4050 ####[facility] [address] [place], [address] Urea nitrogen [Mass/Vol] 12 mg/dL Normal 4-19 [facility] Comment on above: Performed By: #### L 100.0100, L500.4050 ####[facility] [address] [place], [address] Emergency Department Summary on 11-09-2024 Emergency Department Summary Normal [facility] LABORATORYOrdered By: SYSTEM SYSTEM on 11-09-2024 Basophils (Bld) [#/Vol] 0.0 103/mcL Normal 0.0 - 0.3 10^3/mcL AO Workflow SS Basophils/100 WBC (Bld) 0.9 % Normal 0.0 - 2.5 % AO Workflow SS Calcium [Mass/Vol] 9.0 mg/dL Normal 8.4 - 10. 2 mg/dL AO ADM SS Chloride [Moles/Vol] 105 mmol/L Normal 98 - 10 7 mmol/L AO ADM SS CO2 [Moles/Vol] 31 mmol/L High 22 - 29 mmol/L AO AD M SS Creatinine [Mass/Vol] 0.96 mg/dL High 0.51 - 0.95 mg/dL AO ADM SS Electrolyte Balance 7.0 mEq/L Normal 4.0 - 15 .0 mEq/L AO ADM SS Eosinophil, Absolute 0.1 103/mcL Normal 0.0 - 0 .7 10^3/mcL AO Workflow SS Eosinophils/100 WBC (Bld) 1.9 % Normal 0.0 - 6.0 % AO Workflow SS Erythrocyte distribution width (RBC) [Ratio] 13.5 % Normal 11.5 - 15.5 % AO Workflow SS Estimated Glomerular Filtration Rate 80 ml/min/1.73sqm Invalid Interpretation Code AO Chemistry S Comment on above: Interpretive Data: Stages of Chronic Kidney Disease (CKD) Stage Description eGFR(ml/min/1.73 sq.m.) CKD 1 Normal kidney function or >=90 normal kindney function with possible kidney damage (ex. Proteinuria) CKD 2 Kidney damage with mild loss 60-89 of kidney function CKD 3a Mild to moderate loss of kidney 45-59 function CKD 3b Moderate to severe loss of 30-44 of kindey function CKD 4 Severe loss of kidney function 15-29 CKD 5 Kidney failure <15 Note: (go live 2024) the eGFR calculation was updated to the 2020 CKD-EPI creatinine equation without a race factor to calculate the eGFR results. Glucose [Mass/Vol] 109 mg/dL High 70 - 105 mg/dL AO ADM SS Hematocrit (Bld) [Volume fraction] 41.1 % Normal 34.0 - 46.0 % AO Workflow SS Hemoglobin (Bld) [Mass/Vol] 13.9 G/dL Normal 12.0 - 16.0 G/dL AO Workflow SS Lymphocytes (Bld) [#/Vol] 1.4 103/mcL Normal 0.9 - 4.3 10^3/mcL AO Workflow SS Lymphocytes/100 WBC (Bld) 26.2 % Normal 20.0 - 40.0 % AO Workflow SS MCH (RBC) [Entitic mass] 29.7 pg Normal 27.0 - 33.0 pg AO Workflow SS MCHC 33.8 G/dL Normal 32.0 - 36.0 G/dL AO Workflow SS MCV (RBC) [Entitic vol] 87.9 fL Normal 80.0 - 99.0 fL AO Workflow SS Monocyte distribution width Auto (Bld) [Entitic vol] 17.05 1 Normal 0.00 - 20.00 AO Workflow SS Comment on above: Result Comment: For ED adult patients suspected of sepsis, MDW<=20.0 does not rule out sepsis or risk of sepsis Monocytes (Bld) [#/Vol] 0.6 103/mcL Normal 0.1 - 1.4 10^3/mcL AO Workflow SS Monocytes/100 WBC (Bld) 12.0 % Normal 2.0 - 13.0 % AO Workflow SS Natriuretic peptide.B prohormone N-Terminal [Mass/Vol] 37 pg/mL Normal 0 - 125 pg/mL AO ADM SS Comment on above: Interpretive Data: N T-proBNP results of less than 300 pg/mL effectively rules out acute congestive heart failure with 99% negative predictive value. Neutrophils (Bld) [#/Vol] 3.1 103/mcL Normal 2.3 - 8.1 10^3/mcL AO Workflow SS Neutrophils/100 WBC (Bld) 59.0 % Normal 50.0 - 75.0 % AO Workflow SS Platelet mean volume (Bld) [Entitic vol] 8.4 fL Normal 6.6 - 10.5 fL AO Workflow SS Platelets (Bld) [#/Vol] 311 103/mcL Normal 150 - 450 10^3/mcL AO Workflow SS Potassium [Moles/Vol] 3.9 mmol/L Normal 3.5 - 5.1 mmol/L AO ADM SS RBC (Bld) [#/Vol] 4.68 106/mcL Normal 4.10 - 5.3 0 10^6/mcL AO Workflow SS Sodium [Moles/Vol] 143 mmol/L Normal 136 - 145 mmol/L AO ADM SS Troponin I.cardiac DL <= 0.01 ng/mL [Mass/Vol] 4 ng/L Normal 0 - 51 ng/L AO ADM SS Comment on above: Interpretive Data: H igh Sensitive Troponin I Reference Ranges: Female: 0-51 ng/L Male: 0-76 ng/L Testing performed on Dimension EXL using a homogeneous sandwich chemiluminescent immunoassay based on knowNormal technology. Urea nitrogen [Mass/Vol] 13 mg/dL Normal 7 - 18 mg/dL AO ADM SS Urea nitrogen/Creatinine [Mass ratio] 14 ratio Normal 7 - 27 ratio AO ADM SS WBC (Bld) [#/Vol] 5.2 103/mcL Normal 4.5 - 10.8 10^3/mcL AO Workflow SS PBNPon 11-09-2024 Natriuretic peptide B (Bld) [Mass/Vol] 37 pg/mL Normal 0-125 [facility] Comment on above: Result Comment: NT-p roBNP results of less than 300 pg/mL effectively rules out acute congestive heart failure with 99% negative predictive value. Performed By: #### G FR, TROPHS, BMP, CBC, MDW, ADIFF, PBNP, ANEU #### [id number] [place], [place] [address] [facility] 11-09-2024 High Sensitivity Troponin I 4 ng/L Normal 0-51 [facility] Comment on above: Result Comment: High Sensitive Troponin I Reference Ranges: Female: 0-51 ng/L Male: 0-76 ng/L Testing performed on byUs using a homogeneous sandwich chemiluminescent immunoassay based on knowNormal technology. Performed By: #### G FR, TROPHS, BMP, CBC, MDW, ADIFF, PBNP, ANEU #### [address] [address] Urine Drug Screen ([facility]IST[facility])on 11-09-2024 AMPHETAMINES Negative Normal <1000 ng/mL [facility] [facility] Comment on above: Performed By: #### L 505.5000 ####[facility] [address] [place], [address] BARBITIURATES Negative Normal < 200 ng/mL [facility] Comment on above: Performed By: #### L 505.5000 ####[facility] [address] [place], [address] BENZODIAZIPINE Positive Normal < 200 ng/mL [facility] Comment on above: Result Comment: If c onfirmation testing is needed, a separate order will berequired to send out testing to the reference laboratory. Performed By: #### L 505.5000 ####[facility] [address] [place], [address] BUP Ur Drug Scr Positive Normal < 200 ng/mL [facility] Comment on above: Result Comment: If c onfirmation testing is needed, a separate order will berequired to send out testing to the reference laboratory. Performed By: #### L 505.5000 ####[facility] [address] [place], [place], [phone] COCAINE Negative Normal < 300 ng/mL [facility] Comment on above: Performed By: #### L 505.5000 ####[facility] [address] [place], [place], [phone] Fentanyl Negative Normal [facility] Comment on above: Performed By: #### L 505.5000 ####[facility] [address] [place], [place], [phone] METHADONE Negative Normal < 300 ng/mL [facility] Comment on above: Performed By: #### L 505.5000 ####[facility] [address] [place] [address] OPIATES Negative Normal < 300 ng/mL [facility] Comment on above: Performed By: #### L 505.5000 ####[facility] [address] [place] [phone] OXYCODONE Negative Normal < 100 ng/mL [facility] Comment on above: Performed By: #### L 505.5000 ####[facility] [address] [place], [address] PCP Negative Normal < 25 ng/mL [facility] Comment on above: Performed By: #### L 505.5000 ####[facility] [address] [place], [address] THC Positive Normal < 50 ng/mL [facility] Comment on above: Result Comment: If c onfirmation testing is needed, a separate order will berequired to send out testing to the reference laboratory. Performed By: #### L 505.5000 ####[facility] [address] [place], [place], [address] XR CHEST 1 VIEWon 11-09-2024 XR CHEST 1 VIEW ORIGINAL EXAMINATION: ONE XRAY VIEW OF THE CHEST11/09/2024 6:34 pm COMPARISON: 08/16/2019 HISTORY: ORDERING SYSTEM PROVIDED HISTORY: Reason for Exam: chest pain FINDINGS: Heart and mediastinum: Cardiomediastinal silhouette is stable. Lungs and pleura: No focal consolidation or pulmonary edema. No pleural effusion or visible pneumothorax. Bones: No acute bony abnormality. IMPRESSION: No acute radiographic findings. I have personally reviewed the images of this examination and agree with the resident's findings and interpretation. Interpreted by: Joe Marcelo Preliminary Report By: Manuel Coats Electronically signed By Joe Marcelo Dictated Date: 11/09/2024 6:48:50 PM Prelim Date: 11/09/2024 6:49:56 PM Sign Date: 11/09/2024 6:51:33 PM Ordering Provider: SHEYLA ROSAS Interpreted by: Joe Marcelo Preliminary Report By: Manuel Coats Electronically signed By Joe Marcelo Dictated Date: 11/09/2024 6:48:50 PM Prelim Date: 11/09/2024 6:49:56 PM Sign Date: 11/09/2024 6:51:33 PM Ordering Provider: SHEYLA ROSAS Normal [facility] Emergency Department Summary on 11-02-2024 Emergency Department Summary Normal [facility] MR/BMS.BPon 06-12-2025 MR/BMS.BP Normal [facility] Internal Medicine Office Vis iton 10-03-2024 Internal Medicine Office Visit Normal [facility] Chest PA and Lateralon 09-18 Chest PA and Lateral Normal [facility] Urgent Care Visit Reporton 0 09-18-2024 Urgent Care Visit Report Normal [facility] Emergency Department Summary on 09-11-2024 Emergency Department Summary Normal [facility] Venous Duplex Imag/Limited/U nion 09-11-2024 Venous Duplex Imag/Limited/Uni Normal [facility] MR/BMS.BPon 09-04-2024 MR/BMS.BP Normal [facility] Tibia Fibula 2 Viewson 08-18 Tibia Fibula 2 Views Normal [facility] MR/BMS.BPon 08-07-2024 MR/BMS.BP Normal [facility] MR/BMS.BPon 07-17-2024 MR/BMS.BP Normal [facility] Alcohol, Blood (Medical)-Ser umon 07-08-2024 SERUM ETOH 56.6 mg/dL High <=10.0 [facility] Comment on above: Result Comment: This test is for medical purposes only. The legaldefinition of intoxication varies according to local law. Performed By: #### L 505.5000, L700.6800, L100.0100, L501.9100, L500.2500 ####[facility] [address] [place], [place], [phone] Basic Metabolic Profile (BMP )on 07-08-2024 BUN/CRE 13.1 RATIO Normal 10-20 [facility] Comment on above: Performed By: #### L 505.5000, L700.6800, L100.0100, L501.9100, L500.2500 ####[facility] [address] [place], [place], [id number] Calcium [Mass/Vol] 8.9 mg/dL Normal 7.6-11.0 [facility] Comment on above: Performed By: #### L 505.5000, L700.6800, L100.0100, L501.9100, L500.2500 ####[facility] [address] [place], [address] Chloride [Moles/Vol] 105 mmol/L Normal 98-108 [facility] Comment on above: Performed By: #### L 505.5000, L700.6800, L100.0100, L501.9100, L500.2500 ####[facility] [address] [place], [address] CO2 [Moles/Vol] 20.0 mmol/L Low 21.0-32.0 [facility] Comment on above: Performed By: #### L 505.5000, L700.6800, L100.0100, L501.9100, L500.2500 ####[facility] [address] [place], [address] Creatinine [Mass/Vol] 0.81 mg/dL Normal 0.70-1.20 [facility] Comment on above: Performed By: #### L 505.5000, L700.6800, L100.0100, L501.9100, L500.2500 ####[facility] [address] [place], [address] ECRCL 109.32 ml/min Normal 50-250 [facility] Comment on above: Performed By: #### L 505.5000, L700.6800, L100.0100, L501.9100, L500.2500 ####[facility] [address] [place], [address] GAP 14 Normal 5-15 [facility] Comment on above: Performed By: #### L 505.5000, L700.6800, L100.0100, L501.9100, L500.2500 ####[facility] [address] [place], [address] GFR/1.73 sq M.predicted among non-blacks MDRD (S/P/Bld) [Vol rate/Area] 98 mL/min/{1.73_m2} Normal >60 [facility] Comment on above: Result Comment: mL/m in/1.73m2 CKD-EPI Creatinine Equation (2020) Performed By: #### L 505.5000, L700.6800, L100.0100, L501.9100, L500.2500 ####[facility] [address] [place], [address] Glucose [Mass/Vol] 90 mg/dL Normal 70-99 [facility] Comment on above: Performed By: #### L 505.5000, L700.6800, L100.0100, L501.9100, L500.2500 ####[facility] [address] [place], [address] Potassium [Moles/Vol] 4.0 mmol/L Normal 3.3-5.1 [facility] Comment on above: Performed By: #### L 505.5000, L700.6800, L100.0100, L501.9100, L500.2500 ####[facility] [address] [place], [address] Sodium [Moles/Vol] 139 mmol/L Normal 133-145 [facility] Comment on above: Performed By: #### L 505.5000, L700.6800, L100.0100, L501.9100, L500.2500 ####[facility] [address] [place], [address] Urea nitrogen [Mass/Vol] 11 mg/dL Normal 4-19 [facility] Comment on above: Performed By: #### L 505.5000, L700.6800, L100.0100, L501.9100, L500.2500 ####[facility] [address] [place], [address] CBC W/Diff, Automatedon 03-0 -2024 Absolute Lymph 1.83 X10 3/uL Normal 0.83-4.51 [facility] Comment on above: Performed By: #### L 505.5000, L700.6800, L100.0100, L501.9100, L500.2500 ####[facility] [address] [place], [address] Absolute Neut 3.9 X10 3/uL Normal 2.0-7.7 [facility] Comment on above: Performed By: #### L 505.5000, L700.6800, L100.0100, L501.9100, L500.2500 ####[facility] [address] [place], [address] Basophils/100 WBC (Bld) 1.1 % High 0-1 [facility] Comment on above: Performed By: #### L 505.5000, L700.6800, L100.0100, L501.9100, L500.2500 ####[facility] [address] [place], [address] Eosinophils/100 WBC (Bld) 1.3 % Normal 0-5 [facility] Comment on above: Performed By: #### L 505.5000, L700.6800, L100.0100, L501.9100, L500.2500 ####[facility] [address] [place], [address] Erythrocyte distribution width (RBC) [Ratio] 13.2 % Normal 11.6-14.6 [facility] Comment on above: Performed By: #### L 505.5000, L700.6800, L100.0100, L501.9100, L500.2500 ####[facility] [address] [place], [address] Hematocrit (Bld) [Volume fraction] 43.4 % Normal 37-47 [facility] Comment on above: Performed By: #### L 505.5000, L700.6800, L100.0100, L501.9100, L500.2500 ####[facility] [address] [place], [address] Hemoglobin (Bld) [Mass/Vol] 14.3 g/dL Normal 12.0-15.0 [facility] Comment on above: Performed By: #### L 505.5000, L700.6800, L100.0100, L501.9100, L500.2500 ####[facility] [address] [place], [address] IG% 0.300 Normal 0.0-0.9 [facility] Comment on above: Result Comment: IG% - Immature Granulocytes (promyelocytes, myelocytes andmetamyelocytes) > 1% indicates that a LEFT SHIFT is Present. Performed By: #### L 505.5000, L700.6800, L100.0100, L501.9100, L500.2500 ####[facility] [address] [place], [address] Lymphocytes/100 WBC (Bld) 28.6 % Normal 19-41 [facility] Comment on above: Performed By: #### L 505.5000, L700.6800, L100.0100, L501.9100, L500.2500 ####[facility] [address] [place], [address] MCH (RBC) [Entitic mass] 28.7 pg Normal 27.0-32.0 [facility] Comment on above: Performed By: #### L 505.5000, L700.6800, L100.0100, L501.9100, L500.2500 ####[facility] [address] [place], [address] MCHC (RBC) [Mass/Vol] 32.9 g/dL Normal 32-36 [facility] Comment on above: Performed By: #### L 505.5000, L700.6800, L100.0100, L501.9100, L500.2500 ####[facility] [address] [place], [address] MCV (RBC) [Entitic vol] 87.0 fL Normal 81-99 [facility] Comment on above: Performed By: #### L 505.5000, L700.6800, L100.0100, L501.9100, L500.2500 ####[facility] [address] [place], [address] Monocytes/100 WBC (Bld) 7.3 % Normal 0-10 [facility] Comment on above: Performed By: #### L 505.5000, L700.6800, L100.0100, L501.9100, L500.2500 ####[facility] [address] [place], [address] Neutrophils/100 WBC (Bld) 61.4 % Normal 47-70 [facility] Comment on above: Performed By: #### L 505.5000, L700.6800, L100.0100, L501.9100, L500.2500 ####[facility] [address] [place], [address] Nucleated RBC (Bld) [#/Vol] 0 10*3/uL Normal 0-5 [facility] Comment on above: Performed By: #### L 505.5000, L700.6800, L100.0100, L501.9100, L500.2500 ####[facility] [address] [place], [address] Platelet mean volume (Bld) [Entitic vol] 9.7 fL Normal 6.2-12.0 [facility] Comment on above: Performed By: #### L 505.5000, L700.6800, L100.0100, L501.9100, L500.2500 ####[facility] [address] [place], [address] Platelets (Bld) [#/Vol] 399 10*3/uL Normal 150-450 [facility] Comment on above: Performed By: #### L 505.5000, L700.6800, L100.0100, L501.9100, L500.2500 ####[facility] [address] [place], [address] RBC (Bld) [#/Vol] 4.99 10*6/uL Normal 4.2-5.4 [facility] Comment on above: Performed By: #### L 505.5000, L700.6800, L100.0100, L501.9100, L500.2500 ####[facility] [address] [place], [address] RDW SD 41.3 fl Normal 35.1-43.9 [facility] Comment on above: Performed By: #### L 505.5000, L700.6800, L100.0100, L501.9100, L500.2500 ####[facility] [address] [place], [address] WBC (Bld) [#/Vol] 6.4 10*3/uL Normal 4.4-11.0 [facility] Comment on above: Performed By: #### L 505.5000, L700.6800, L100.0100, L501.9100, L500.2500 ####[facility] [address] [place], [address] Emergency Department Summary on 07-08-2024 Emergency Department Summary Normal [facility] ,Serum,hCG Quali.on 07-08-2024 HCG, SERUM QUAL Negative Normal [facility] Comment on above: Order Comment: if fe male and of childbearing age (8-55 years old) Performed By: #### L 505.5000, L700.6800, L100.0100, L501.9100, L500.2500 ####[facility] [address] [place], [place], [phone] Urine Drug Screen (VISTA)on 07-08-2024 AMPHETAMINES Positive Normal <1000 ng/mL [facility] Comment on above: Result Comment: If c onfirmation testing is needed, a separate order will berequired to send out testing to the reference laboratory. Performed By: #### L 505.5000, L700.6800, L100.0100, L501.9100, L500.2500 ####[facility] [address] [place] [address] BARBITIURATES Negative Normal < 200 ng/mL [facility] Comment on above: Performed By: #### L 505.5000, L700.6800, L100.0100, L501.9100, L500.2500 ####[facility] [address] [place] [phone] BENZODIAZIPINE Positive Normal < 200 ng/mL [facility] Comment on above: Result Comment: If c onfirmation testing is needed, a separate order will berequired to send out testing to the reference laboratory. Performed By: #### L 505.5000, L700.6800, L100.0100, L501.9100, L500.2500 ####[facility] [address] [place], [address] BUP Ur Drug Scr Negative Normal < 200 ng/mL [facility] Comment on above: Performed By: #### L 505.5000, L700.6800, L100.0100, L501.9100, L500.2500 ####[facility] [address] [place], [address] COCAINE Negative Normal < 300 ng/mL [facility] Comment on above: Performed By: #### L 505.5000, L700.6800, L100.0100, L501.9100, L500.2500 ####[facility] [address] [place] [phone] Fentanyl Negative Normal [facility] Comment on above: Performed By: #### L 505.5000, L700.6800, L100.0100, L501.9100, L500.2500 ####[facility] [address] [place], [address] METHADONE Negative Normal < 300 ng/mL [facility] Comment on above: Performed By: #### L 505.5000, L700.6800, L100.0100, L501.9100, L500.2500 ####[facility] [address] [place], [address] OPIATES Negative Normal < 300 ng/mL [facility] Comment on above: Performed By: #### L 505.5000, L700.6800, L100.0100, L501.9100, L500.2500 ####[facility] [address] [place], [place], [phone] OXYCODONE Negative Normal < 100 ng/mL [facility] Comment on above: Performed By: #### L 505.5000, L700.6800, L100.0100, L501.9100, L500.2500 ####[facility] [address] [place], [address] PCP Negative Normal < 25 ng/mL [facility] Comment on above: Performed By: #### L 505.5000, L700.6800, L100.0100, L501.9100, L500.2500 ####[facility] [address] [place], [place], [phone] THC Positive Normal < 50 ng/mL [facility] Comment on above: Result Comment: If c onfirmation testing is needed, a separate order will berequired to send out testing to the reference laboratory. Performed By: #### L 505.5000, L700.6800, L100.0100, L501.9100, L500.2500 ####[facility] [address] 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 [facility] Comment on above: Performed By: #### L 7000.7000 ####[facility] [address] [place], [place], [id number] HCV QT RNA PCR Not detected Normal . [facility] Comment on above: Performed By: #### L 7000.7000 ####[facility] [address] [place], [place], [phone] TEST INFO: Comment Normal . [facility] Comment on above: Result Comment: The quantitative range of this assay is 15 IU/mL to 100million IU/mL.Performed at: [address] [id number] Director: Sarah Means MD, Phone: [phone] Performed By: #### L 7000.7000 ####[facility] [address] [place], [place], [phone] Urgent Care Visit Reporton 0 06-19-2024 Urgent Care Visit Report Normal [facility] CBC W/Diff, Automatedon 06-07 Absolute Lymph 1.73 X10 3/uL Normal 0.83-4.51 [facility] Comment on above: Performed By: #### L 505.5000, L100.0100, L500.4050, L500.4100 ####[facility] [address] [place], [place], [phone] Absolute Neut 3.4 X10 3/uL Normal 2.0-7.7 [facility] Comment on above: Performed By: #### L 505.5000, L100.0100, L500.4050, L500.4100 ####[facility] [address] [place], [address] Basophils/100 WBC (Bld) 0.7 % Normal 0-1 [facility] Comment on above: Performed By: #### L 505.5000, L100.0100, L500.4050, L500.4100 ####[facility] [address] [place], [address] Eosinophils/100 WBC (Bld) 0.7 % Normal 0-5 [facility] Comment on above: Performed By: #### L 505.5000, L100.0100, L500.4050, L500.4100 ####[facility] [address] [place], [address] Erythrocyte distribution width (RBC) [Ratio] 13.2 % Normal 11.6-14.6 [facility] Comment on above: Performed By: #### L 505.5000, L100.0100, L500.4050, L500.4100 ####[facility] [address] [place], [address] Hematocrit (Bld) [Volume fraction] 45.0 % Normal 37-47 [facility] Comment on above: Performed By: #### L 505.5000, L100.0100, L500.4050, L500.4100 ####[facility] [address] [place], [address] Hemoglobin (Bld) [Mass/Vol] 14.7 g/dL Normal 12.0-15.0 [facility] Comment on above: Performed By: #### L 505.5000, L100.0100, L500.4050, L500.4100 ####[facility] [address] [place], [address] IG% 0.300 Normal 0.0-0.9 [facility] Comment on above: Result Comment: IG% - Immature Granulocytes (promyelocytes, myelocytes andmetamyelocytes) > 1% indicates that a LEFT SHIFT is Present. Performed By: #### L 505.5000, L100.0100, L500.4050, L500.4100 ####[facility] [address] [place], [address] Lymphocytes/100 WBC (Bld) 29.8 % Normal 19-41 [facility] Comment on above: Performed By: #### L 505.5000, L100.0100, L500.4050, L500.4100 ####[facility] [address] [place], [address] MCH (RBC) [Entitic mass] 28.1 pg Normal 27.0-32.0 [facility] Comment on above: Performed By: #### L 505.5000, L100.0100, L500.4050, L500.4100 ####[facility] [address] [place], [address] MCHC (RBC) [Mass/Vol] 32.7 g/dL Normal 32-36 [facility] Comment on above: Performed By: #### L 505.5000, L100.0100, L500.4050, L500.4100 ####[facility] [address] [place], [address] MCV (RBC) [Entitic vol] 86.0 fL Normal 81-99 [facility] Comment on above: Performed By: #### L 505.5000, L100.0100, L500.4050, L500.4100 ####[facility] [address] [place], [address] Monocytes/100 WBC (Bld) 9.8 % Normal 0-10 [facility] Comment on above: Performed By: #### L 505.5000, L100.0100, L500.4050, L500.4100 ####[facility] [address] [place], [address] Neutrophils/100 WBC (Bld) 58.7 % Normal 47-70 [facility] Comment on above: Performed By: #### L 505.5000, L100.0100, L500.4050, L500.4100 ####[facility] [address] [place], [address] Nucleated RBC (Bld) [#/Vol] 0 10*3/uL Normal 0-5 [facility] Comment on above: Performed By: #### L 505.5000, L100.0100, L500.4050, L500.4100 ####[facility] [address] [place], [address] Platelet mean volume (Bld) [Entitic vol] 10.3 fL Normal 6.2-12.0 [facility] Comment on above: Performed By: #### L 505.5000, L100.0100, L500.4050, L500.4100 ####[facility] [address] [place], [address] Platelets (Bld) [#/Vol] 368 10*3/uL Normal 150-450 [facility] Comment on above: Performed By: #### L 505.5000, L100.0100, L500.4050, L500.4100 ####[facility] [address] [place], [address] RBC (Bld) [#/Vol] 5.23 10*6/uL Normal 4.2-5.4 [facility] Comment on above: Performed By: #### L 505.5000, L100.0100, L500.4050, L500.4100 ####[facility] [address] [place], [address] RDW SD 41.0 fl Normal 35.1-43.9 [facility] Comment on above: Performed By: #### L 505.5000, L100.0100, L500.4050, L500.4100 ####[facility] [address] [place], [address] WBC (Bld) [#/Vol] 5.8 10*3/uL Normal 4.4-11.0 [facility] Comment on above: Performed By: #### L 505.5000, L100.0100, L500.4050, L500.4100 ####[facility] [address] [place], [address] Comprehensive Metabolic Prof ilon 06-18-2024 Albumin [Mass/Vol] 3.5 g/dL Normal 3.2-5.0 [facility] Comment on above: Performed By: #### L 505.5000, L100.0100, L500.4050, L500.4100 ####[facility] [address] [place], [address] Albumin/Globulin [Mass ratio] 0.9 {ratio} Normal 0.9-2.4 [facility] Comment on above: Performed By: #### L 505.5000, L100.0100, L500.4050, L500.4100 ####[facility] [address] [place], [address] ALK P 170 U/L High 45-117 [facility] Comment on above: Performed By: #### L 505.5000, L100.0100, L500.4050, L500.4100 ####[facility] [address] [place], [address] ALT [Catalytic activity/Vol] 125 U/L High 13-56 [facility] Comment on above: Performed By: #### L 505.5000, L100.0100, L500.4050, L500.4100 ####[facility] [address] [place], [address] AST [Catalytic activity/Vol] 25 U/L Normal 15-37 [facility] Comment on above: Performed By: #### L 505.5000, L100.0100, L500.4050, L500.4100 ####[facility] [address] [place], [address] Bilirubin [Mass/Vol] 0.50 mg/dL Normal 0.20-1.00 [facility] Comment on above: Result Comment: For patients on eltrombopag therapy, use of Dimension [place] TBIL is not recommended. Performed By: #### L 505.5000, L100.0100, L500.4050, L500.4100 ####[facility] [address] [place], [address] BUN/CRE 9.7 RATIO Low 10-20 [facility] Comment on above: Performed By: #### L 505.5000, L100.0100, L500.4050, L500.4100 ####[facility] [address] [place], [address] CA,Total 9.1 mg/dL Normal 8.5-10.1 [facility] Comment on above: Performed By: #### L 505.5000, L100.0100, L500.4050, L500.4100 ####[facility] [address] [place], [address] Chloride [Moles/Vol] 105 mmol/L Normal 98-107 [facility] Comment on above: Performed By: #### L 505.5000, L100.0100, L500.4050, L500.4100 ####[facility] [address] [place], [address] CO2 [Moles/Vol] 27.0 mmol/L Normal 21.0-32.0 [facility] Comment on above: Performed By: #### L 505.5000, L100.0100, L500.4050, L500.4100 ####[facility] [address] [place], [address] Creatinine [Mass/Vol] 0.92 mg/dL Normal 0.55-1.02 [facility] Comment on above: Result Comment: The validity of the calculated GFR GFRAA in patients over70 years has not been determined. Clinical correlation isessential. Performed By: #### L 505.5000, L100.0100, L500.4050, L500.4100 ####[facility] [address] [place], [address] EST GFR - AA 90 mL/min Normal >60 [facility] Comment on above: Result Comment: Afri can [place] GFR Calc Performed By: #### L 505.5000, L100.0100, L500.4050, L500.4100 ####[facility] [address] [place], [address] GAP 6 Normal 5-15 [facility] Comment on above: Performed By: #### L 505.5000, L100.0100, L500.4050, L500.4100 ####[facility] [address] [place], [address] GFR/1.73 sq M.predicted among non-blacks MDRD (S/P/Bld) [Vol rate/Area] 74 mL/min/{1.73_m2} Normal >60 [facility] Comment on above: Result Comment: Non- GFR Calc Performed By: #### L 505.5000, L100.0100, L500.4050, L500.4100 ####[facility] [address] [place], [address] Globulin (S) [Mass/Vol] 3.9 g/dL Normal 2.2-4.2 [facility] Comment on above: Performed By: #### L 505.5000, L100.0100, L500.4050, L500.4100 ####[facility] [address] [place], [address] Glucose [Mass/Vol] 85 mg/dL Normal 74-106 [facility] Comment on above: Performed By: #### L 505.5000, L100.0100, L500.4050, L500.4100 ####[facility] [address] [place], [address] Potassium [Moles/Vol] 4.1 mmol/L Normal 3.5-5.1 [facility] Comment on above: Performed By: #### L 505.5000, L100.0100, L500.4050, L500.4100 ####[facility] [address] [place], [address] Sodium [Moles/Vol] 138 mmol/L Normal 136-145 [facility] Comment on above: Performed By: #### L 505.5000, L100.0100, L500.4050, L500.4100 ####[facility] [address] [place], [address] T PROT 7.4 g/dL Normal 6.4-8.2 [facility] Comment on above: Performed By: #### L 505.5000, L100.0100, L500.4050, L500.4100 ####[facility] [address] [place], [address] Urea nitrogen [Mass/Vol] 9 mg/dL Normal 7-18 [facility] Comment on above: Performed By: #### L 505.5000, L100.0100, L500.4050, L500.4100 ####[facility] [address] [place], [address] Internal Medicine Office Vis iton 06-18-2024 Internal Medicine Office Visit Normal [facility] Lipid Profileon 06-18-2024 Cholesterol [Mass/Vol] 171 mg/dL Normal 200 [facility] Comment on above: Result Comment: <200 mg/dL Desirable 200-240 mg/dL Borderline >240 mg/dL High Risk Performed By: #### L 505.5000, L100.0100, L500.4050, L500.4100 ####[facility] [address] [place], [address] Cholesterol in HDL [Mass/Vol] 54 mg/dL Normal [facility] Comment on above: Result Comment: The drugs N-Acetylcysteine and Metamizole may falselydepress this assay. Reference Range HDL <40 mg/dL Low HDL Cholesterol HDL >or= 60 mg/dL High HDL Cholesterol Performed By: #### L 505.5000, L100.0100, L500.4050, L500.4100 ####[facility] [address] [place], [address] Cholesterol in LDL [Mass/Vol] 96 mg/dL Normal 0-130 [facility] Comment on above: Performed By: #### L 505.5000, L100.0100, L500.4050, L500.4100 ####[facility] [address] [place], [address] Cholesterol in VLDL [Mass/Vol] 21 mg/dL Normal 5-40 [facility] Comment on above: Performed By: #### L 505.5000, L100.0100, L500.4050, L500.4100 ####[facility] [address] [place], [address] Triglyceride [Mass/Vol] 103 mg/dL Normal [facility] Comment on above: Result Comment: The drugs N-Acetylcysteine and Metamizole may falselydepress this assay.Serum Triglycerides Reference Interval Normal <150 mg/dL Borderline high 150 - 199 mg/dL High 200 - 499 mg/dL Very High > or = 500 mg/dL Performed By: #### L 505.5000, L100.0100, L500.4050, L500.4100 ####[facility] [address] [place], [address] Urine Drug Screen (VISTA)on 06-18-2024 AMPHETAMINES Negative Normal <1000 ng/mL [facility] Comment on above: Order Comment: UNK Performed By: #### L 505.5000, L100.0100, L500.4050, L500.4100 ####[facility] [address] [place], [address] BARBITIURATES Negative Normal < 200 ng/mL [facility] Comment on above: Order Comment: UNK Performed By: #### L 505.5000, L100.0100, L500.4050, L500.4100 ####[facility] [address] [place], [address] BENZODIAZIPINE Negative Normal < 200 ng/mL [facility] Comment on above: Order Comment: UNK Performed By: #### L 505.5000, L100.0100, L500.4050, L500.4100 ####[facility] [address] [place], [address] COCAINE Negative Normal < 300 ng/mL [facility] Comment on above: Order Comment: UNK Performed By: #### L 505.5000, L100.0100, L500.4050, L500.4100 ####[facility] [address] [place], [address] ECSTACY Negative Normal < 500 ng/mL [facility] Comment on above: Order Comment: UNK Performed By: #### L 505.5000, L100.0100, L500.4050, L500.4100 ####[facility] [address] [place], [address] METHADONE Negative Normal < 300 ng/mL [facility] Comment on above: Order Comment: UNK Performed By: #### L 505.5000, L100.0100, L500.4050, L500.4100 ####[facility] [address] [place], [address] OPIATES Negative Normal < 300 ng/mL [facility] Comment on above: Order Comment: UNK Performed By: #### L 505.5000, L100.0100, L500.4050, L500.4100 ####[facility] [address] [place], [address] PCP Negative Normal < 25 ng/mL [facility] Comment on above: Order Comment: UNK Performed By: #### L 505.5000, L100.0100, L500.4050, L500.4100 ####[facility] [address] [place], [address] THC Positive Abnormal < 50 ng/mL [facility] Comment on above: Order Comment: UNK Performed By: #### L 505.5000, L100.0100, L500.4050, L500.4100 ####[facility] [address] [place], [address] VISTA UDS PH 6 Normal [facility] Comment on above: Order Comment: UNK Performed By: #### L 505.5000, L100.0100, L500.4050, L500.4100 ####[facility] [address] [place], [address] Emergency Department Summary on 06-14-2024 Emergency Department Summary Normal [facility] M100.678on 06-14-2024 M100.678 Normal [facility] Comment on above: Performed By: #### M 100.678 ####[facility] [address] [place], [address] Chest PA and Lateralon 06-11 Chest PA and Lateral Normal [facility] MR/BMS.BPon 05-27-2024 MR/BMS.BP Normal [facility] MR/BMS.BPon 05-23-2024 MR/BMS.BP Normal [facility] MR/BMS.BPon 05-13-2024 MR/BMS.BP Normal [facility] MR/BMS.BPon 04-07-2024 MR/BMS.BP Normal [facility] ,Urineon 11-20-2024 Beta HCG ( test) Ql (U) Normal [facility] Comment on above: Result Comment: Canc elled via OM: pt didn't show up Performed By: #### L 400.7600 ####[facility] [address] [place], [address] INTERNAL QC OK? Normal [facility] Comment on above: Result Comment: Canc elled via OM: pt didn't show up Performed By: #### L 400.7600 ####[facility] [address] [place], [address] RECORD KIT LOT# Normal [facility] Comment on above: Result Comment: Canc elled via OM: pt didn't show up Performed By: #### L 400.7600 ####[facility] [address] [place], [address] MR/BMS.BPon 03-24-2024 MR/BMS.BP Normal [facility] Biopsy/Inj or Needle Placeme nton 03-20-2024 Biopsy/Inj or Needle Placement Normal [facility] Partial Thromboplast Timeon 03-20-2024 aPTT Coag (Bld) [Time] 25.5 s Normal 24.1-36.2 [facility] Comment on above: Performed By: #### L 300.4310, L300.3900, L100.1900 ####[facility] [address] [place], [address] Platelet Counton 03-20-2024 Platelets (Bld) [#/Vol] 474 10*3/uL High 150-450 [facility] Comment on above: Performed By: #### L 300.4310, L300.3900, L100.1900 ####[facility] [address] [place], [address] Prothrombin Time w/INRon INR Coag (PPP) [Relative time] 0.9 {INR} Normal [facility] Comment on above: Performed By: #### L 300.4310, L300.3900, L100.1900 ####[facility] [address] [place], [address] PT Coag (PPP) [Time] 12.3 s Normal 11.7-14.9 [facility] Comment on above: Performed By: #### L 300.4310, L300.3900, L100.1900 ####[facility] [address] [place], [address] Trichrome (control)on 2023 Trichrome (control) Normal [facility] Comment on above: Performed By: #### P TRI ####[facility] [address] [place], [address] 12 Lead EKGon 03-11-2024 12 Lead EKG Normal [facility] Basic Metabolic Profile (BMP )on 03-11-2024 BUN/CRE 9.9 RATIO Low 10-20 [facility] Comment on above: Order Comment: 'TROP ' Serial specimen #1, #2 or #3: 1 Performed By: #### L 500.2500, L700.6800, L100.0100, L501.4020, L501.2450 ####[facility] [address] [place], [address] CA,Total 9.0 mg/dL Normal 8.5-10.1 [facility] Comment on above: Order Comment: 'TROP ' Serial specimen #1, #2 or #3: 1 Performed By: #### L 500.2500, L700.6800, L100.0100, L501.4020, L501.2450 ####[facility] [address] [place], [address] Chloride [Moles/Vol] 108 mmol/L High 98-107 [facility] Comment on above: Order Comment: 'TROP ' Serial specimen #1, #2 or #3: 1 Performed By: #### L 500.2500, L700.6800, L100.0100, L501.4020, L501.2450 ####[facility] [address] [place], [address] CO2 [Moles/Vol] 24.0 mmol/L Normal 21.0-32.0 [facility] Comment on above: Order Comment: 'TROP ' Serial specimen #1, #2 or #3: 1 Performed By: #### L 500.2500, L700.6800, L100.0100, L501.4020, L501.2450 ####[facility] [address] [place], [address] Creatinine [Mass/Vol] 0.91 mg/dL Normal 0.55-1.02 [facility] Comment on above: Order Comment: 'TROP ' Serial specimen #1, #2 or #3: 1 Result Comment: The validity of the calculated GFR GFRAA in patients over70 years has not been determined. Clinical correlation isessential. Performed By: #### L 500.2500, L700.6800, L100.0100, L501.4020, L501.2450 ####[facility] [address] [place], [address] ECRCL 94.50 ml/min Normal [facility] Comment on above: Order Comment: 'TROP ' Serial specimen #1, #2 or #3: 1 Performed By: #### L 500.2500, L700.6800, L100.0100, L501.4020, L501.2450 ####[facility] [address] [place], [address] EST GFR - AA 92 mL/min Normal >60 [facility] Comment on above: Order Comment: 'TROP ' Serial specimen #1, #2 or #3: 1 Result Comment: Afri can [place] GFR Calc Performed By: #### L 500.2500, L700.6800, L100.0100, L501.4020, L501.2450 ####[facility] [address] [place], [address] GAP 5 Normal 5-15 [facility] Comment on above: Order Comment: 'TROP ' Serial specimen #1, #2 or #3: 1 Performed By: #### L 500.2500, L700.6800, L100.0100, L501.4020, L501.2450 ####[facility] [address] [place], [address] GFR/1.73 sq M.predicted among non-blacks MDRD (S/P/Bld) [Vol rate/Area] 76 mL/min/{1.73_m2} Normal >60 [facility] Comment on above: Order Comment: 'TROP ' Serial specimen #1, #2 or #3: 1 Result Comment: Non- GFR Calc Performed By: #### L 500.2500, L700.6800, L100.0100, L501.4020, L501.2450 ####[facility] [address] [place], [address] Glucose [Mass/Vol] 133 mg/dL High 74-106 [facility] Comment on above: Order Comment: 'TROP ' Serial specimen #1, #2 or #3: 1 Result Comment: Fast ing Glucose result greater than or equal to 126 mg/dLsuggests DIABETES MELLITUS per A.D.A. criteria. Performed By: #### L 500.2500, L700.6800, L100.0100, L501.4020, L501.2450 ####[facility] [address] [place], [address] Potassium [Moles/Vol] 3.6 mmol/L Normal 3.5-5.1 [facility] Comment on above: Order Comment: 'TROP ' Serial specimen #1, #2 or #3: 1 Performed By: #### L 500.2500, L700.6800, L100.0100, L501.4020, L501.2450 ####[facility] [address] [place], [address] Sodium [Moles/Vol] 138 mmol/L Normal 136-145 [facility] Comment on above: Order Comment: 'TROP ' Serial specimen #1, #2 or #3: 1 Performed By: #### L 500.2500, L700.6800, L100.0100, L501.4020, L501.2450 ####[facility] [address] [place], [address] Urea nitrogen [Mass/Vol] 9 mg/dL Normal 7-18 [facility] Comment on above: Order Comment: 'TROP ' Serial specimen #1, #2 or #3: 1 Performed By: #### L 500.2500, L700.6800, L100.0100, L501.4020, L501.2450 ####[facility] [address] [place], [address] CBC W/Diff, Automatedon 11-0 5-2024 Absolute Lymph 0.69 X10 3/uL Low 0.83-4.51 [facility] Comment on above: Performed By: #### L 500.2500, L700.6800, L100.0100, L501.4020, L501.2450 ####[facility] [address] [place], [address] Absolute Neut 11.1 X10 3/uL High 2.0-7.7 [facility] Comment on above: Performed By: #### L 500.2500, L700.6800, L100.0100, L501.4020, L501.2450 ####[facility] [address] [place], [address] Basophils/100 WBC (Bld) 0.3 % Normal 0-1 [facility] Comment on above: Performed By: #### L 500.2500, L700.6800, L100.0100, L501.4020, L501.2450 ####[facility] [address] [place], [address] Eosinophils/100 WBC (Bld) 0.1 % Normal 0-5 [facility] Comment on above: Performed By: #### L 500.2500, L700.6800, L100.0100, L501.4020, L501.2450 ####[facility] [address] [place], [address] Erythrocyte distribution width (RBC) [Ratio] 12.3 % Normal 11.6-14.6 [facility] Comment on above: Performed By: #### L 500.2500, L700.6800, L100.0100, L501.4020, L501.2450 ####[facility] [address] [place], [address] Hematocrit (Bld) [Volume fraction] 42.6 % Normal 37-47 [facility] Comment on above: Performed By: #### L 500.2500, L700.6800, L100.0100, L501.4020, L501.2450 ####[facility] [address] [place], [address] Hemoglobin (Bld) [Mass/Vol] 14.4 g/dL Normal 12.0-15.0 [facility] Comment on above: Performed By: #### L 500.2500, L700.6800, L100.0100, L501.4020, L501.2450 ####[facility] [address] [place], [address] IG% 0.300 Normal 0.0-0.9 [facility] Comment on above: Result Comment: IG% - Immature Granulocytes (promyelocytes, myelocytes andmetamyelocytes) > 1% indicates that a LEFT SHIFT is Present. Performed By: #### L 500.2500, L700.6800, L100.0100, L501.4020, L501.2450 ####[facility] [address] [place], [address] Lymphocytes/100 WBC (Bld) 5.6 % Low 19-41 [facility] Comment on above: Performed By: #### L 500.2500, L700.6800, L100.0100, L501.4020, L501.2450 ####[facility] [address] [place], [address] MCH (RBC) [Entitic mass] 28.9 pg Normal 27.0-32.0 [facility] Comment on above: Performed By: #### L 500.2500, L700.6800, L100.0100, L501.4020, L501.2450 ####[facility] [address] [place], [address] MCHC (RBC) [Mass/Vol] 33.8 g/dL Normal 32-36 [facility] Comment on above: Performed By: #### L 500.2500, L700.6800, L100.0100, L501.4020, L501.2450 ####[facility] [address] [place], [address] MCV (RBC) [Entitic vol] 85.4 fL Normal 81-99 [facility] Comment on above: Performed By: #### L 500.2500, L700.6800, L100.0100, L501.4020, L501.2450 ####[facility] [address] [place], [address] Monocytes/100 WBC (Bld) 3.0 % Normal 0-10 [facility] Comment on above: Performed By: #### L 500.2500, L700.6800, L100.0100, L501.4020, L501.2450 ####[facility] [address] [place], [address] Neutrophils/100 WBC (Bld) 90.7 % High 47-70 [facility] Comment on above: Performed By: #### L 500.2500, L700.6800, L100.0100, L501.4020, L501.2450 ####[facility] [address] [place], [address] Nucleated RBC (Bld) [#/Vol] 0 10*3/uL Normal 0-5 [facility] Comment on above: Performed By: #### L 500.2500, L700.6800, L100.0100, L501.4020, L501.2450 ####[facility] [address] [place], [address] Platelet mean volume (Bld) [Entitic vol] 9.9 fL Normal 6.2-12.0 [facility] Comment on above: Performed By: #### L 500.2500, L700.6800, L100.0100, L501.4020, L501.2450 ####[facility] [address] [place], [address] Platelets (Bld) [#/Vol] 427 10*3/uL Normal 150-450 [facility] Comment on above: Performed By: #### L 500.2500, L700.6800, L100.0100, L501.4020, L501.2450 ####[facility] [address] [place], [address] RBC (Bld) [#/Vol] 4.99 10*6/uL Normal 4.2-5.4 [facility] Comment on above: Performed By: #### L 500.2500, L700.6800, L100.0100, L501.4020, L501.2450 ####[facility] [address] [place], [address] RDW SD 38.3 fl Normal 35.1-43.9 [facility] Comment on above: Performed By: #### L 500.2500, L700.6800, L100.0100, L501.4020, L501.2450 ####[facility] [address] [place], [address] WBC (Bld) [#/Vol] 12.2 10*3/uL High 4.4-11.0 [facility] Comment on above: Performed By: #### L 500.2500, L700.6800, L100.0100, L501.4020, L501.2450 ####[facility] [address] [place], [address] CTA Chest W/WO Contraston CTA Chest W/WO Contrast Normal [facility] Emergency Department Summary on 03-11-2024 Emergency Department Summary Normal [facility] L501.4020on 03-11-2024 TROPONIN-I HS < 3 Low 3.0-54.0 [facility] Comment on above: Order Comment: 'TROP ' Serial specimen #1, #2 or #3: 1 Result Comment: Plea se Note: New Test Units and Gender Specific Reference Ranges. For more information see Policy Stat Procedure [place] High Sensitivity Troponin (TNIH) and attachments. Performed By: #### L 500.2500, L700.6800, L100.0100, L501.4020, L501.2450 ####[facility] [address] [place], [address] Lipaseon 03-11-2024 Lipase [Catalytic activity/Vol] 20 U/L Normal 13-75 [facility] Comment on above: Order Comment: 'TROP ' Serial specimen #1, #2 or #3: 1 Result Comment: Plea se note:LIPASE revised reference range effective 22.New Lipase methodology. Expected to produce lower valuesthan the previous assay method.NEW Reference Range: 13 - 75 U/L Performed By: #### L 500.2500, L700.6800, L100.0100, L501.4020, L501.2450 ####[facility] [address] [place], [place], [id number] ,Serum,hCG Quali.on 03-11-2024 HCG, SERUM QUAL Negative Normal [facility] Comment on above: Performed By: #### L 500.2500, L700.6800, L100.0100, L501.4020, L501.2450 ####[facility] [address] [place], [place], [address] ABD Limited w/ Elastographyo n 03-03-2024 ABD Limited w/ Elastography Normal [facility] Internal Medicine Office Vis iton 02-21-2024 Internal Medicine Office Visit Normal [facility] ANCAon 02-19-2024 Atypical pANCA <1:20 Normal Neg:<1:20 [facility] Comment on above: Order Comment: Test( s) [id number], Serum or Plasmawas developed and its performance characteristicsdetermined by [employer]. It has not been cleared or approvedby the Food and Drug Administration.N Result Comment: The atypical pANCA pattern has been observed in asignificant percentage of patients with ulcerative colitis,primary sclerosing cholangitis and autoimmune hepatitis. Performed By: #### L 3300.0100, L503.6550, L2100.0000, L3300.1200, L3410.1000, L3410.0900, L3300.1800, L4500.0100, L3300.0960, L501.9520, L503.0105, L3100.1850, L509.6000, L3200.0500, L101.9900, L500.4050, L100.0100, L501.6710, L3410.2400, L3200.1100, L503.6075, L3100.3425, L504.2610, L3100.6900 ####[facility] [address] [place], [place], [address] Cytoplasmic Ab <1:20 Normal Neg:<1:20 [facility] Comment on above: Order Comment: Test( s) [id number], Serum or Plasmawas developed and its performance characteristicsdetermined by [employer]. It has not been cleared or approvedby the Food and Drug Administration.N Performed By: #### L 3300.0100, L503.6550, L2100.0000, L3300.1200, L3410.1000, L3410.0900, L3300.1800, L4500.0100, L3300.0960, L501.9520, L503.0105, L3100.1850, L509.6000, L3200.0500, L101.9900, L500.4050, L100.0100, L501.6710, L3410.2400, L3200.1100, L503.6075, L3100.3425, L504.2610, L3100.6900 ####[facility] [id number] [place], [address] Perinuclear Ab. <1:20 Normal Neg:<1:20 [facility] Comment on above: Order Comment: Test( s) 709263-Htwjgk, Serum or Plasmawas developed and its performance characteristicsdetermined by [facility]. It has not been cleared or approvedby the Food and Drug Administration.N Result Comment: The presence of positive fluorescence exhibiting P-ANCA orC-ANCA patterns alone is not specific for the diagnosis ofWegener's Granulomatosis (WG) or microscopic polyangiitis.Decisions about treatment should not be based solely onANCA IFA results. The International ANCA Group Consensusrecommends follow up testing of positive sera with both AZ-3 and MPO-ANCA enzyme immunoassays. As many as 5% serumsamples are positive only by EIA. Ref. AM J Clin Uuwafr5981;111:507-513. Performed By: #### L 3300.0100, L503.6550, L2100.0000, L3300.1200, L3410.1000, L3410.0900, L3300.1800, L4500.0100, L3300.0960, L501.9520, L503.0105, L3100.1850, L509.6000, L3200.0500, L101.9900, L500.4050, L100.0100, L501.6710, L3410.2400, L3200.1100, L503.6075, L3100.3425, L504.2610, L3100.6900 ####[facility] [address] [place], [place], [address] Angiotensin Convert Enzymeon 02-19-2024 ANGIOT-CONV.ENZ 42 U/L Normal 14-82 [facility] Comment on above: Order Comment: Test( s) 166277-Njcaer, Serum or Plasmawas developed and its performance characteristicsdetermined by [facility]. It has not been cleared or approvedby the Food and Drug Administration.N Performed By: #### L 3300.0100, L503.6550, L2100.0000, L3300.1200, L3410.1000, L3410.0900, L3300.1800, L4500.0100, L3300.0960, L501.9520, L503.0105, L3100.1850, L509.6000, L3200.0500, L101.9900, L500.4050, L100.0100, L501.6710, L3410.2400, L3200.1100, L503.6075, L3100.3425, L504.2610, L3100.6900 ####[facility] [address] [place], [place], [phone] Anti-Parietal Cell AB, QNon 02-19-2024 ANTIPARIET CELL 4.1 Units Normal 0.0-20.0 [facility] Comment on above: Order Comment: Test( s) 911000-Eowvot, Serum or Plasmawas developed and its performance characteristicsdetermined by [facility]. It has not been cleared or approvedby [...] L501.6710, L3410.2400, L3200.1100, L503.6075, L3100.3425, L504.2610, L3100.6900 ####[facility] [address] [place], [place], [phone] Celiac Disease Profileon ENDOMYSIAL IGA Negative Normal Negative [facility] Comment on above: Order Comment: Test( s) 025343-Mxtleg, Serum or Plasmawas developed and its performance characteristicsdetermined by [facility]. It has not been cleared or approvedby the Food and Drug Administration.N Performed By: #### L 3300.0100, L503.6550, L2100.0000, L3300.1200, L3410.1000, L3410.0900, L3300.1800, L4500.0100, L3300.0960, L501.9520, L503.0105, L3100.1850, L509.6000, L3200.0500, L101.9900, L500.4050, L100.0100, L501.6710, L3410.2400, L3200.1100, L503.6075, L3100.3425, L504.2610, L3100.6900 ####[facility] [address] [place], [place], [phone] tTG IGA <2 Normal 0-3 [facility] Comment on above: Order Comment: Test( s) 077466-Tzztzs, Serum or Plasmawas developed and its performance characteristicsdetermined by [facility]. It has not been cleared or approvedby [...] L501.6710, L3410.2400, L3200.1100, L503.6075, L3100.3425, L504.2610, L3100.6900 ####[facility] [address] [facility] [place], [place], [phone] Copper, Serum or Plasmaon COPPER, SERUM 98 ug/dL Normal 80-158 [facility] Comment on above: Order Comment: Test( s) 574193-Mbxxhn, Serum or Plasmawas developed and its performance characteristicsdetermined by [facility]. It has not been cleared or approvedby the Food and Drug Administration.N Result Comment: Dete ction Limit = 5 Performed By: #### L 3300.0100, L503.6550, L2100.0000, L3300.1200, L3410.1000, L3410.0900, L3300.1800, L4500.0100, L3300.0960, L501.9520, L503.0105, L3100.1850, L509.6000, L3200.0500, L101.9900, L500.4050, L100.0100, L501.6710, L3410.2400, L3200.1100, L503.6075, L3100.3425, L504.2610, L3100.6900 ####[facility] [address] [place], [place], [phone] Gastrin, Serumon 02-19-2024 GASTRIN 103 pg/mL Normal 0-115 [facility] Comment on above: Order Comment: Test( s) 664278-Bbwjgl, Serum or Plasmawas developed and its performance characteristicsdetermined by [facility]. It has not been cleared or approvedby the Food and Drug Administration.N Result Comment: [facility] Immulite 2000 Immunochemiluminometric assay (ICMA)Values obtained with different assay methods or kits cannotbe used interchangeably. Results cannot be interpreted asabsolute evidence of the presence or absence of malignantdisease. Performed By: #### L 3300.0100, L503.6550, L2100.0000, L3300.1200, L3410.1000, L3410.0900, L3300.1800, L4500.0100, L3300.0960, L501.9520, L503.0105, L3100.1850, L509.6000, L3200.0500, L101.9900, L500.4050, L100.0100, L501.6710, L3410.2400, L3200.1100, L503.6075, L3100.3425, L504.2610, L3100.6900 ####[facility] [address] [place], [place], [phone] Haptoglobinon 02-19-2024 HAPTOGLOBIN 248 mg/dL Normal 33-278 [facility] Comment on above: Order Comment: Test( s) 247778-Iincha, Serum or Plasmawas developed and its performance characteristicsdetermined by [facility]. It has not been cleared or approvedby the Food and Drug Administration.N Result Comment: Perf ormed at: [facility] [address] [id number] Director: Sarah Means MD, Phone: [phone] at: [facility] [address] [id number] Director: Enrike Booker PhD, Phone: [phone] Performed By: #### L 3300.0100, L503.6550, L2100.0000, L3300.1200, L3410.1000, L3410.0900, L3300.1800, L4500.0100, L3300.0960, L501.9520, L503.0105, L3100.1850, L509.6000, L3200.0500, L101.9900, L500.4050, L100.0100, L501.6710, L3410.2400, L3200.1100, L503.6075, L3100.3425, L504.2610, L3100.6900 ####[facility] [address] [facility] [place], [place], [phone] MAHENDRA + Protein Elect, Serumon 02-19-2024 Albumin [Mass/Vol] 4.1 g/dL Normal 2.9-4.4 [facility] Comment on above: Order Comment: Test( s) 853358-Hcbrhu, Serum or Plasmawas developed and its performance characteristicsdetermined by [facility]. It has not been cleared or approvedby the Food and Drug Administration.N Performed By: #### L 3300.0100, L503.6550, L2100.0000, L3300.1200, L3410.1000, L3410.0900, L3300.1800, L4500.0100, L3300.0960, L501.9520, L503.0105, L3100.1850, L509.6000, L3200.0500, L101.9900, L500.4050, L100.0100, L501.6710, L3410.2400, L3200.1100, L503.6075, L3100.3425, L504.2610, L3100.6900 ####[facility] [address] [place], [place], [phone] Albumin/Globulin [Mass ratio] 1.5 {ratio} Normal 0.7-1.7 [facility] Comment on above: Order Comment: Test( s) 989990-Urrvad, Serum or Plasmawas developed and its performance characteristicsdetermined by [facility]. It has not been cleared or approvedby the Food and Drug Administration.N Performed By: #### L 3300.0100, L503.6550, L2100.0000, L3300.1200, L3410.1000, L3410.0900, L3300.1800, L4500.0100, L3300.0960, L501.9520, L503.0105, L3100.1850, L509.6000, L3200.0500, L101.9900, L500.4050, L100.0100, L501.6710, L3410.2400, L3200.1100, L503.6075, L3100.3425, L504.2610, L3100.6900 ####[facility] [address] [facility] [place], [place], [phone] JWDGG-7-CRZH 0.2 g/dL Normal 0.0-0.4 [facility] Comment on above: Order Comment: Test( s) 019724-Mncdeb, Serum or Plasmawas developed and its performance characteristicsdetermined by [facility]. It has not been cleared or approvedby the Food and Drug Administration.N Performed By: #### L 3300.0100, L503.6550, L2100.0000, L3300.1200, L3410.1000, L3410.0900, L3300.1800, L4500.0100, L3300.0960, L501.9520, L503.0105, L3100.1850, L509.6000, L3200.0500, L101.9900, L500.4050, L100.0100, L501.6710, L3410.2400, L3200.1100, L503.6075, L3100.3425, L504.2610, L3100.6900 ####[facility] [address] [facility]. [place], [place], [phone] NEHSQ-8-KSOC 1.0 g/dL Normal 0.4-1.0 [facility] Comment on above: Order Comment: Test( s) 758027-Slvxkn, Serum or Plasmawas developed and its performance characteristicsdetermined by [facility]. It has not been cleared or approvedby the Food and Drug Administration.N Performed By: #### L 3300.0100, L503.6550, L2100.0000, L3300.1200, L3410.1000, L3410.0900, L3300.1800, L4500.0100, L3300.0960, L501.9520, L503.0105, L3100.1850, L509.6000, L3200.0500, L101.9900, L500.4050, L100.0100, L501.6710, L3410.2400, L3200.1100, L503.6075, L3100.3425, L504.2610, L3100.6900 ####[facility] [address] [facility]. [place], [place], [phone] BETA GLOBULIN 1.0 g/dL Normal 0.7-1.3 [facility] Comment on above: Order Comment: Test( s) 441462-Jsrmmg, Serum or Plasmawas developed and its performance characteristicsdetermined by [facility]. It has not been cleared or approvedby the Food and Drug Administration.N Performed By: #### L 3300.0100, L503.6550, L2100.0000, L3300.1200, L3410.1000, L3410.0900, L3300.1800, L4500.0100, L3300.0960, L501.9520, L503.0105, L3100.1850, L509.6000, L3200.0500, L101.9900, L500.4050, L100.0100, L501.6710, L3410.2400, L3200.1100, L503.6075, L3100.3425, L504.2610, L3100.6900 ####[facility] [address] [facility]. [place], [place], [phone] GAMMA GLOBULIN 0.7 g/dL Normal 0.4-1.8 [facility] Comment on above: Order Comment: Test( s) 771712-Vtkqvb, Serum or Plasmawas developed and its performance characteristicsdetermined by [facility]. It has not been cleared or approvedby the Food and Drug Administration.N Performed By: #### L 3300.0100, L503.6550, L2100.0000, L3300.1200, L3410.1000, L3410.0900, L3300.1800, L4500.0100, L3300.0960, L501.9520, L503.0105, L3100.1850, L509.6000, L3200.0500, L101.9900, L500.4050, L100.0100, L501.6710, L3410.2400, L3200.1100, L503.6075, L3100.3425, L504.2610, L3100.6900 ####[facility] [address] [place], [place], [phone] Globulin (S) [Mass/Vol] 2.9 g/dL Normal 2.2-3.9 [facility] Comment on above: Order Comment: Test( s) 060066-Rphjbt, Serum or Plasmawas developed and its performance characteristicsdetermined by [facility]. It has not been cleared or approvedby the Food and Drug Administration.N Performed By: #### L 3300.0100, L503.6550, L2100.0000, L3300.1200, L3410.1000, L3410.0900, L3300.1800, L4500.0100, L3300.0960, L501.9520, L503.0105, L3100.1850, L509.6000, L3200.0500, L101.9900, L500.4050, L100.0100, L501.6710, L3410.2400, L3200.1100, L503.6075, L3100.3425, L504.2610, L3100.6900 ####[facility] [address] [place], [place], [phone] MAHENDRA RESULT,S Comment: Normal . [facility] Comment on above: Order Comment: Test( s) 301154-Vqlflf, Serum or Plasmawas developed and its performance characteristicsdetermined by [facility]. It has not been cleared or approvedby the Food and Drug Administration.N Result Comment: Pres ence of monoclonal protein is unclear at this time. Suggestrepeat in 3 to 6 months if clinically indicated. Performed By: #### L 3300.0100, L503.6550, L2100.0000, L3300.1200, L3410.1000, L3410.0900, L3300.1800, L4500.0100, L3300.0960, L501.9520, L503.0105, L3100.1850, L509.6000, L3200.0500, L101.9900, L500.4050, L100.0100, L501.6710, L3410.2400, L3200.1100, L503.6075, L3100.3425, L504.2610, L3100.6900 ####[facility] [address] [facility] [place], [place], [phone] IMMUNOGLOB A QN 98 mg/dL Normal 87-352 [facility] Comment on above: Order Comment: Test( s) 188969-Llmxkq, Serum or Plasmawas developed and its performance characteristicsdetermined by [facility]. It has not been cleared or approvedby the Food and Drug Administration.N Performed By: #### L 3300.0100, L503.6550, L2100.0000, L3300.1200, L3410.1000, L3410.0900, L3300.1800, L4500.0100, L3300.0960, L501.9520, L503.0105, L3100.1850, L509.6000, L3200.0500, L101.9900, L500.4050, L100.0100, L501.6710, L3410.2400, L3200.1100, L503.6075, L3100.3425, L504.2610, L3100.6900 ####[facility] [address] [facility] [address] [place], [place], [phone] IMMUNOGLOB M QN 62 mg/dL Normal 26-217 [facility] Comment on above: Order Comment: Test( s) 039786-Ndqxgo, Serum or Plasmawas developed and its performance characteristicsdetermined by [facility]. It has not been cleared or approvedby the Food and Drug Administration.N Performed By: #### L 3300.0100, L503.6550, L2100.0000, L3300.1200, L3410.1000, L3410.0900, L3300.1800, L4500.0100, L3300.0960, L501.9520, L503.0105, L3100.1850, L509.6000, L3200.0500, L101.9900, L500.4050, L100.0100, L501.6710, L3410.2400, L3200.1100, L503.6075, L3100.3425, L504.2610, L3100.6900 ####[facility] [address] [place], [address] M-Yariel Not Observed Normal Not Observed [facility] Comment on above: Order Comment: Test( s) 930890-Tvxtbq, Serum or Plasmawas developed and its performance characteristicsdetermined by [facility]. It has not been cleared or approvedby the Food and Drug Administration.N Performed By: #### L 3300.0100, L503.6550, L2100.0000, L3300.1200, L3410.1000, L3410.0900, L3300.1800, L4500.0100, L3300.0960, L501.9520, L503.0105, L3100.1850, L509.6000, L3200.0500, L101.9900, L500.4050, L100.0100, L501.6710, L3410.2400, L3200.1100, L503.6075, L3100.3425, L504.2610, L3100.6900 ####[facility] [address] [place], [place], [phone] NOTE: Comment Normal . [facility] Comment on above: Order Comment: Test( s) 754507-Ffiszj, Serum or Plasmawas developed and its performance characteristicsdetermined by [facility]. It has not been cleared or approvedby the Food and Drug Administration.N Result Comment: Prot ein electrophoresis scan will follow via computer,mail, or professor of chemical engineering delivery. Performed By: #### L 3300.0100, L503.6550, L2100.0000, L3300.1200, L3410.1000, L3410.0900, L3300.1800, L4500.0100, L3300.0960, L501.9520, L503.0105, L3100.1850, L509.6000, L3200.0500, L101.9900, L500.4050, L100.0100, L501.6710, L3410.2400, L3200.1100, L503.6075, L3100.3425, L504.2610, L3100.6900 ####[facility] [address] [facility]. [place], [place], [phone] Protein [Mass/Vol] 7.0 g/dL Normal 6.0-8.5 [facility] Comment on above: Order Comment: Test( s) 545077-Cpoywp, Serum or Plasmawas developed and its performance characteristicsdetermined by [facility]. It has not been cleared or approvedby the Food and Drug Administration.N Performed By: #### L 3300.0100, L503.6550, L2100.0000, L3300.1200, L3410.1000, L3410.0900, L3300.1800, L4500.0100, L3300.0960, L501.9520, L503.0105, L3100.1850, L509.6000, L3200.0500, L101.9900, L500.4050, L100.0100, L501.6710, L3410.2400, L3200.1100, L503.6075, L3100.3425, L504.2610, L3100.6900 ####[facility] [address] [facility]. [place], [place], [phone] IgG Subclasseson 02-19-2024 IgG, SUBCLASS 1 603 mg/dL Normal 248-810 [facility] Comment on above: Order Comment: Test( s) 741754-Beyter, Serum or Plasmawas developed and its performance characteristicsdetermined by [facility]. It has not been cleared or approvedby the Food and Drug Administration.N Performed By: #### L 3300.0100, L503.6550, L2100.0000, L3300.1200, L3410.1000, L3410.0900, L3300.1800, L4500.0100, L3300.0960, L501.9520, L503.0105, L3100.1850, L509.6000, L3200.0500, L101.9900, L500.4050, L100.0100, L501.6710, L3410.2400, L3200.1100, L503.6075, L3100.3425, L504.2610, L3100.6900 ####[facility] [address] [facility] [place], [place], [address] IgG, SUBCLASS 2 44 mg/dL Low 130-555 [facility] Comment on above: Order Comment: Test( s) 130563-Hkdwez, Serum or Plasmawas developed and its performance characteristicsdetermined by [facility]. It has not been cleared or approvedby the Food and Drug Administration.N Performed By: #### L 3300.0100, L503.6550, L2100.0000, L3300.1200, L3410.1000, L3410.0900, L3300.1800, L4500.0100, L3300.0960, L501.9520, L503.0105, L3100.1850, L509.6000, L3200.0500, L101.9900, L500.4050, L100.0100, L501.6710, L3410.2400, L3200.1100, L503.6075, L3100.3425, L504.2610, L3100.6900 ####[facility] [address] [facility] [place], [address] IgG, SUBCLASS 3 15 mg/dL Normal 15-102 [facility] Comment on above: Order Comment: Test( s) 795322-Emiaml, Serum or Plasmawas developed and its performance characteristicsdetermined by [facility]. It has not been cleared or approvedby the Food and Drug Administration.N Performed By: #### L 3300.0100, L503.6550, L2100.0000, L3300.1200, L3410.1000, L3410.0900, L3300.1800, L4500.0100, L3300.0960, L501.9520, L503.0105, L3100.1850, L509.6000, L3200.0500, L101.9900, L500.4050, L100.0100, L501.6710, L3410.2400, L3200.1100, L503.6075, L3100.3425, L504.2610, L3100.6900 ####[facility] [address] [facility] [place], [address] IgG, SUBCLASS 4 1 mg/dL Low 2-96 [facility] Comment on above: Order Comment: Test( s) 805757-Pdhqis, Serum or Plasmawas developed and its performance characteristicsdetermined by [facility]. It has not been cleared or approvedby the Food and Drug Administration.N Performed By: #### L 3300.0100, L503.6550, L2100.0000, L3300.1200, L3410.1000, L3410.0900, L3300.1800, L4500.0100, L3300.0960, L501.9520, L503.0105, L3100.1850, L509.6000, L3200.0500, L101.9900, L500.4050, L100.0100, L501.6710, L3410.2400, L3200.1100, L503.6075, L3100.3425, L504.2610, L3100.6900 ####[facility] [address] [place], [place], [phone] IGG,QUANT 817 mg/dL Normal 586-1602 [facility] Comment on above: Order Comment: Test( s) 043279-Uscbbu, Serum or Plasmawas developed and its performance characteristicsdetermined by [facility]. It has not been cleared or approvedby the Food and Drug Administration.N Performed By: #### L 3300.0100, L503.6550, L2100.0000, L3300.1200, L3410.1000, L3410.0900, L3300.1800, L4500.0100, L3300.0960, L501.9520, L503.0105, L3100.1850, L509.6000, L3200.0500, L101.9900, L500.4050, L100.0100, L501.6710, L3410.2400, L3200.1100, L503.6075, L3100.3425, L504.2610, L3100.6900 ####[facility] [address] [place], [place], [address] Immunoglobulins G/A/M/Lex IMMUNOGLOB E QN 20 IU/mL Normal 6-495 [facility] Comment on above: Order Comment: Test( s) 279922-Gonnyq, Serum or Plasmawas developed and its performance characteristicsdetermined by [facility]. It has not been cleared or approvedby the Food and Drug Administration.N Performed By: #### L 3300.0100, L503.6550, L2100.0000, L3300.1200, L3410.1000, L3410.0900, L3300.1800, L4500.0100, L3300.0960, L501.9520, L503.0105, L3100.1850, L509.6000, L3200.0500, L101.9900, L500.4050, L100.0100, L501.6710, L3410.2400, L3200.1100, L503.6075, L3100.3425, L504.2610, L3100.6900 ####[facility] [address] [place], [place], [address] Intrinsic Factor Abon 2023 INTRINS FACT AB 1.1 AU/mL Normal 0.0-1.1 [facility] Comment on above: Order Comment: Test( s) 387777-Fwpzem, Serum or Plasmawas developed and its performance characteristicsdetermined by [facility]. It has not been cleared or approvedby the Food and Drug Administration.N Performed By: #### L 3300.0100, L503.6550, L2100.0000, L3300.1200, L3410.1000, L3410.0900, L3300.1800, L4500.0100, L3300.0960, L501.9520, L503.0105, L3100.1850, L509.6000, L3200.0500, L101.9900, L500.4050, L100.0100, L501.6710, L3410.2400, L3200.1100, L503.6075, L3100.3425, L504.2610, L3100.6900 ####[facility] [address] [facility] [place], [address] L2100.0000on 02-19-2024 ACCA 3 units Normal 0-90 [facility] Comment on above: Order Comment: Test( s) 543415-Fbgdwf, Serum or Plasmawas developed and its performance characteristicsdetermined by [facility]. It has not been cleared or approvedby the Food and Drug Administration.N Result Comment: Nega tive: <80 Equivocal: 80-90 Positive: >90 Performed By: #### L 3300.0100, L503.6550, L2100.0000, L3300.1200, L3410.1000, L3410.0900, L3300.1800, L4500.0100, L3300.0960, L501.9520, L503.0105, L3100.1850, L509.6000, L3200.0500, L101.9900, L500.4050, L100.0100, L501.6710, L3410.2400, L3200.1100, L503.6075, L3100.3425, L504.2610, L3100.6900 ####[facility] [address] [facility] [place], [address] ALCA 4 units Normal 0-60 [facility] Comment on above: Order Comment: Test( s) 667298-Xekuar, Serum or Plasmawas developed and its performance characteristicsdetermined by [facility]. It has not been cleared or approvedby the Food and Drug Administration.N Result Comment: Nega tive:<55 Equivocal: 55-60 Positive: >60 Performed By: #### L 3300.0100, L503.6550, L2100.0000, L3300.1200, L3410.1000, L3410.0900, L3300.1800, L4500.0100, L3300.0960, L501.9520, L503.0105, L3100.1850, L509.6000, L3200.0500, L101.9900, L500.4050, L100.0100, L501.6710, L3410.2400, L3200.1100, L503.6075, L3100.3425, L504.2610, L3100.6900 ####[facility] [address] [facility] [place], [address] AMCA 6 units Normal 0-100 [facility] Comment on above: Order Comment: Test( s) 281248-Xmbwrr, Serum or Plasmawas developed and its performance characteristicsdetermined by [facility]. It has not been cleared or approvedby the Food and Drug Administration.N Result Comment: Nega tive: <90 Equivocal: 90-100 Positive: >100 This test was developed and its performance characteristics determined by [facility]. It has not been cleared or approved by the Food and Drug Administration. The FDA has determined that such clearance or approval is not necessary. Performed By: #### L 3300.0100, L503.6550, L2100.0000, L3300.1200, L3410.1000, L3410.0900, L3300.1800, L4500.0100, L3300.0960, L501.9520, L503.0105, L3100.1850, L509.6000, L3200.0500, L101.9900, L500.4050, L100.0100, L501.6710, L3410.2400, L3200.1100, L503.6075, L3100.3425, L504.2610, L3100.6900 ####[facility] [address] [place], [place], [id number] Atypical pANCA Negative Normal Negative [facility] Comment on above: Order Comment: Test( s) 243662-Eqydlr, Serum or Plasmawas developed and its performance characteristicsdetermined by [facility]. It has not been cleared or approvedby the Food and Drug Administration.N Performed By: #### L 3300.0100, L503.6550, L2100.0000, L3300.1200, L3410.1000, L3410.0900, L3300.1800, L4500.0100, L3300.0960, L501.9520, L503.0105, L3100.1850, L509.6000, L3200.0500, L101.9900, L500.4050, L100.0100, L501.6710, L3410.2400, L3200.1100, L503.6075, L3100.3425, L504.2610, L3100.6900 ####[facility] [address] [place], [address] COMMENT Comment Normal . [facility] Comment on above: Order Comment: Test( s) [id number]-Wxzqdx, Serum or Plasmawas developed and its performance characteristicsdetermined by [facility]. It has not been cleared or approvedby the Food and Drug Administration.N Result Comment: Darling andrés is not suggestive of Inflammatory Bowel Disease Performed By: #### L 3300.0100, L503.6550, L2100.0000, L3300.1200, L3410.1000, L3410.0900, L3300.1800, L4500.0100, L3300.0960, L501.9520, L503.0105, L3100.1850, L509.6000, L3200.0500, L101.9900, L500.4050, L100.0100, L501.6710, L3410.2400, L3200.1100, L503.6075, L3100.3425, L504.2610, L3100.6900 ####[facility] [address] [place], [address] [address] units Normal 0-50 [facility] Comment on above: Order Comment: Test( s) [id number], Serum or Plasmawas developed and its performance characteristicsdetermined by [facility]. It has not been cleared or approvedby the Food and Drug Administration.N Result Comment: Nega tive: <45 Equivocal: 45-50 Positive: >50 Performed By: #### L 3300.0100, L503.6550, L2100.0000, L3300.1200, L3410.1000, L3410.0900, L3300.1800, L4500.0100, L3300.0960, L501.9520, L503.0105, L3100.1850, L509.6000, L3200.0500, L101.9900, L500.4050, L100.0100, L501.6710, L3410.2400, L3200.1100, L503.6075, L3100.3425, L504.2610, L3100.6900 ####[facility] [address] [facility]. [place], [place], [address] Lupus Anticoagulant Compon 1 0- aPTT Coag (Bld) [Time] 26.7 s Normal 0.0-43.5 [facility] Comment on above: Order Comment: Test( s) [id number]-Tyqhbb, Serum or Plasmawas developed and its performance characteristicsdetermined by [facility]. It has not been cleared or approvedby the Food and Drug Administration.N Performed By: #### L 3300.0100, L503.6550, L2100.0000, L3300.1200, L3410.1000, L3410.0900, L3300.1800, L4500.0100, L3300.0960, L501.9520, L503.0105, L3100.1850, L509.6000, L3200.0500, L101.9900, L500.4050, L100.0100, L501.6710, L3410.2400, L3200.1100, L503.6075, L3100.3425, L504.2610, L3100.6900 ####[facility] On[address] [facility]. [place], [place], [phone] DILUTE PT (dPT) 33.8 sec Normal 0.0-47.6 [facility] Comment on above: Order Comment: Test( s) [id number]-Exmnis, Serum or Plasmawas developed and its performance characteristicsdetermined by [facility]. It has not been cleared or approvedby the Food and Drug Administration.N Performed By: #### L 3300.0100, L503.6550, L2100.0000, L3300.1200, L3410.1000, L3410.0900, L3300.1800, L4500.0100, L3300.0960, L501.9520, L503.0105, L3100.1850, L509.6000, L3200.0500, L101.9900, L500.4050, L100.0100, L501.6710, L3410.2400, L3200.1100, L503.6075, L3100.3425, L504.2610, L3100.6900 ####[facility] [address] [facility]. [place], [place], [phone] dPT Conf. Ratio 1.21 Ratio Normal 0.00-1.34 [facility] Comment on above: Order Comment: Test( s) [id number]-Arixfb, Serum or Plasmawas developed and its performance characteristicsdetermined by [facility]. It has not been cleared or approvedby the Food and Drug Administration.N Performed By: #### L 3300.0100, L503.6550, L2100.0000, L3300.1200, L3410.1000, L3410.0900, L3300.1800, L4500.0100, L3300.0960, L501.9520, L503.0105, L3100.1850, L509.6000, L3200.0500, L101.9900, L500.4050, L100.0100, L501.6710, L3410.2400, L3200.1100, L503.6075, L3100.3425, L504.2610, L3100.6900 ####[facility] Zymwmx[address]dp[address] [facility], [place], [phone] DRVVT 32.4 sec Normal 0.0-47.0 [facility] Comment on above: Order Comment: Test( s) [id number]-Sjialh, Serum or Plasmawas developed and its performance characteristicsdetermined by [facility]. It has not been cleared or approvedby the Food and Drug Administration.N Performed By: #### L 3300.0100, L503.6550, L2100.0000, L3300.1200, L3410.1000, L3410.0900, L3300.1800, L4500.0100, L3300.0960, L501.9520, L503.0105, L3100.1850, L509.6000, L3200.0500, L101.9900, L500.4050, L100.0100, L501.6710, L3410.2400, L3200.1100, L503.6075, L3100.3425, L504.2610, L3100.6900 ####[facility] [address] [facility]. [place], [place], [phone] Interpretation Comment: Normal . [facility] Comment on above: Order Comment: Test( s) [id number]-Kvzfjy, Serum or Plasmawas developed and its performance characteristicsdetermined by [facility]. It has not been cleared or approvedby the Food and Drug Administration.N Result Comment: No l upus anticoagulant was detected. Performed By: #### L 3300.0100, L503.6550, L2100.0000, L3300.1200, L3410.1000, L3410.0900, L3300.1800, L4500.0100, L3300.0960, L501.9520, L503.0105, L3100.1850, L509.6000, L3200.0500, L101.9900, L500.4050, L100.0100, L501.6710, L3410.2400, L3200.1100, L503.6075, L3100.3425, L504.2610, L3100.6900 ####[facility] [address] [facility]. [place], [place], [phone] THROMBIN TIME 15.4 sec Normal 0.0-23.0 [facility] Comment on above: Order Comment: Test( s) [id number]-Esjwmo, Serum or Plasmawas developed and its performance characteristicsdetermined by [facility]. It has not been cleared or approvedby the Food and Drug Administration.N Performed By: #### L 3300.0100, L503.6550, L2100.0000, L3300.1200, L3410.1000, L3410.0900, L3300.1800, L4500.0100, L3300.0960, L501.9520, L503.0105, L3100.1850, L509.6000, L3200.0500, L101.9900, L500.4050, L100.0100, L501.6710, L3410.2400, L3200.1100, L503.6075, L3100.3425, L504.2610, L3100.6900 ####[facility] R[address] [facility]. [place], [place], [address] Vitamin D 1,25-Dihydroxyon 1 VIT D 1,25 DIHY 39.6 pg/mL Normal 24.8-81.5 [facility] Comment on above: Result Comment: Perf ormed at: [address] [id number] Director: Sarah Means MD, Phone: [phone] Performed By: #### L 3300.0100, L503.6550, L2100.0000, L3300.1200, L3410.1000, L3410.0900, L3300.1800, L4500.0100, L3300.0960, L501.9520, L503.0105, L3100.1850, L509.6000, L3200.0500, L101.9900, L500.4050, L100.0100, L501.6710, L3410.2400, L3200.1100, L503.6075, L3100.3425, L504.2610, L3100.6900 ####[facility] [address] [place], [address] M7400.3302on 02-18-2024 M7400.3302 Normal [facility] Comment on above: Performed By: #### M 100.6796, M100.637, M7400.3302, M600.5000 ####[facility] [address] [place], [address] Ova and Parasites 8623on OP Normal [facility] Comment on above: Performed By: #### M 100.6796, M100.637, M7400.3302, M600.5000 ####[facility] [address] [place], [address] CBC W/Diff, Automatedon 02-04 Absolute Lymph 1.35 X10 3/uL Normal 0.83-4.51 [facility] Comment on above: Performed By: #### L 3300.0100, L503.6550, L2100.0000, L3300.1200, L3410.1000, L3410.0900, L3300.1800, L4500.0100, L3300.0960, L501.9520, L503.0105, L3100.1850, L509.6000, L3200.0500, L101.9900, L500.4050, L100.0100, L501.6710, L3410.2400, L3200.1100, L503.6075, L3100.3425, L504.2610, L3100.6900 ####[facility] [address] [place], [address] Absolute Neut 5.7 X10 3/uL Normal 2.0-7.7 [facility] Comment on above: Performed By: #### L 3300.0100, L503.6550, L2100.0000, L3300.1200, L3410.1000, L3410.0900, L3300.1800, L4500.0100, L3300.0960, L501.9520, L503.0105, L3100.1850, L509.6000, L3200.0500, L101.9900, L500.4050, L100.0100, L501.6710, L3410.2400, L3200.1100, L503.6075, L3100.3425, L504.2610, L3100.6900 ####[facility] [address] [place], [place], [phone]) Basophils/100 WBC (Bld) 0.7 % Normal 0-1 [facility] Comment on above: Performed By: #### L 3300.0100, L503.6550, L2100.0000, L3300.1200, L3410.1000, L3410.0900, L3300.1800, L4500.0100, L3300.0960, L501.9520, L503.0105, L3100.1850, L509.6000, L3200.0500, L101.9900, L500.4050, L100.0100, L501.6710, L3410.2400, L3200.1100, L503.6075, L3100.3425, L504.2610, L3100.6900 ####[facility] [address] [facility]. [place], [place], [phone]) Eosinophils/100 WBC (Bld) 1.1 % Normal 0-5 [facility] Comment on above: Performed By: #### L 3300.0100, L503.6550, L2100.0000, L3300.1200, L3410.1000, L3410.0900, L3300.1800, L4500.0100, L3300.0960, L501.9520, L503.0105, L3100.1850, L509.6000, L3200.0500, L101.9900, L500.4050, L100.0100, L501.6710, L3410.2400, L3200.1100, L503.6075, L3100.3425, L504.2610, L3100.6900 ####[facility] [address] [place], [place], [phone] Erythrocyte distribution width (RBC) [Ratio] 12.9 % Normal 11.6-14.6 [facility] Comment on above: Performed By: #### L 3300.0100, L503.6550, L2100.0000, L3300.1200, L3410.1000, L3410.0900, L3300.1800, L4500.0100, L3300.0960, L501.9520, L503.0105, L3100.1850, L509.6000, L3200.0500, L101.9900, L500.4050, L100.0100, L501.6710, L3410.2400, L3200.1100, L503.6075, L3100.3425, L504.2610, L3100.6900 ####[facility] [address] [place], [address] Hematocrit (Bld) [Volume fraction] 43.2 % Normal 37-47 [facility] Comment on above: Performed By: #### L 3300.0100, L503.6550, L2100.0000, L3300.1200, L3410.1000, L3410.0900, L3300.1800, L4500.0100, L3300.0960, L501.9520, L503.0105, L3100.1850, L509.6000, L3200.0500, L101.9900, L500.4050, L100.0100, L501.6710, L3410.2400, L3200.1100, L503.6075, L3100.3425, L504.2610, L3100.6900 ####[facility] [address] [place], [address] Hemoglobin (Bld) [Mass/Vol] 14.3 g/dL Normal 12.0-15.0 [facility] Comment on above: Performed By: #### L 3300.0100, L503.6550, L2100.0000, L3300.1200, L3410.1000, L3410.0900, L3300.1800, L4500.0100, L3300.0960, L501.9520, L503.0105, L3100.1850, L509.6000, L3200.0500, L101.9900, L500.4050, L100.0100, L501.6710, L3410.2400, L3200.1100, L503.6075, L3100.3425, L504.2610, L3100.6900 ####[facility] [address] [facility]. [place], [place], [phone]) IG% 0.300 Normal 0.0-0.9 [facility] Comment on above: Result Comment: IG% - Immature Granulocytes (promyelocytes, myelocytes andmetamyelocytes) > 1% indicates that a LEFT SHIFT is Present. Performed By: #### L 3300.0100, L503.6550, L2100.0000, L3300.1200, L3410.1000, L3410.0900, L3300.1800, L4500.0100, L3300.0960, L501.9520, L503.0105, L3100.1850, L509.6000, L3200.0500, L101.9900, L500.4050, L100.0100, L501.6710, L3410.2400, L3200.1100, L503.6075, L3100.3425, L504.2610, L3100.6900 ####[facility] [address] [facility] [place], [place], [phone] Lymphocytes/100 WBC (Bld) 17.8 % Low 19-41 [facility] Comment on above: Performed By: #### L 3300.0100, L503.6550, L2100.0000, L3300.1200, L3410.1000, L3410.0900, L3300.1800, L4500.0100, L3300.0960, L501.9520, L503.0105, L3100.1850, L509.6000, L3200.0500, L101.9900, L500.4050, L100.0100, L501.6710, L3410.2400, L3200.1100, L503.6075, L3100.3425, L504.2610, L3100.6900 ####[facility] [address] [place], [place], [phone] MCH (RBC) [Entitic mass] 29.3 pg Normal 27.0-32.0 [facility] Comment on above: Performed By: #### L 3300.0100, L503.6550, L2100.0000, L3300.1200, L3410.1000, L3410.0900, L3300.1800, L4500.0100, L3300.0960, L501.9520, L503.0105, L3100.1850, L509.6000, L3200.0500, L101.9900, L500.4050, L100.0100, L501.6710, L3410.2400, L3200.1100, L503.6075, L3100.3425, L504.2610, L3100.6900 ####[facility] [address] [place], [place], [phone] MCHC (RBC) [Mass/Vol] 33.1 g/dL Normal 32-36 [facility] Comment on above: Performed By: #### L 3300.0100, L503.6550, L2100.0000, L3300.1200, L3410.1000, L3410.0900, L3300.1800, L4500.0100, L3300.0960, L501.9520, L503.0105, L3100.1850, L509.6000, L3200.0500, L101.9900, L500.4050, L100.0100, L501.6710, L3410.2400, L3200.1100, L503.6075, L3100.3425, L504.2610, L3100.6900 ####[facility] [address] [place], [address] MCV (RBC) [Entitic vol] 88.5 fL Normal 81-99 [facility] Comment on above: Performed By: #### L 3300.0100, L503.6550, L2100.0000, L3300.1200, L3410.1000, L3410.0900, L3300.1800, L4500.0100, L3300.0960, L501.9520, L503.0105, L3100.1850, L509.6000, L3200.0500, L101.9900, L500.4050, L100.0100, L501.6710, L3410.2400, L3200.1100, L503.6075, L3100.3425, L504.2610, L3100.6900 ####[facility] [address] [place], [address] Monocytes/100 WBC (Bld) 5.4 % Normal 0-10 [facility] Comment on above: Performed By: #### L 3300.0100, L503.6550, L2100.0000, L3300.1200, L3410.1000, L3410.0900, L3300.1800, L4500.0100, L3300.0960, L501.9520, L503.0105, L3100.1850, L509.6000, L3200.0500, L101.9900, L500.4050, L100.0100, L501.6710, L3410.2400, L3200.1100, L503.6075, L3100.3425, L504.2610, L3100.6900 ####[facility] [address] [place], [address] Neutrophils/100 WBC (Bld) 74.7 % High 47-70 [facility] Comment on above: Performed By: #### L 3300.0100, L503.6550, L2100.0000, L3300.1200, L3410.1000, L3410.0900, L3300.1800, L4500.0100, L3300.0960, L501.9520, L503.0105, L3100.1850, L509.6000, L3200.0500, L101.9900, L500.4050, L100.0100, L501.6710, L3410.2400, L3200.1100, L503.6075, L3100.3425, L504.2610, L3100.6900 ####[facility] [address] [facility] [place], [place], [phone] Nucleated RBC (Bld) [#/Vol] 0 10*3/uL Normal 0-5 [facility] Comment on above: Performed By: #### L 3300.0100, L503.6550, L2100.0000, L3300.1200, L3410.1000, L3410.0900, L3300.1800, L4500.0100, L3300.0960, L501.9520, L503.0105, L3100.1850, L509.6000, L3200.0500, L101.9900, L500.4050, L100.0100, L501.6710, L3410.2400, L3200.1100, L503.6075, L3100.3425, L504.2610, L3100.6900 ####[facility] [address] [facility]. [place], [place], [phone] Platelet mean volume (Bld) [Entitic vol] 10.1 fL Normal 6.2-12.0 [facility] Comment on above: Performed By: #### L 3300.0100, L503.6550, L2100.0000, L3300.1200, L3410.1000, L3410.0900, L3300.1800, L4500.0100, L3300.0960, L501.9520, L503.0105, L3100.1850, L509.6000, L3200.0500, L101.9900, L500.4050, L100.0100, L501.6710, L3410.2400, L3200.1100, L503.6075, L3100.3425, L504.2610, L3100.6900 ####[facility] [address] [place], [place], [phone]) Platelets (Bld) [#/Vol] 450 10*3/uL Normal 150-450 [facility] Comment on above: Performed By: #### L 3300.0100, L503.6550, L2100.0000, L3300.1200, L3410.1000, L3410.0900, L3300.1800, L4500.0100, L3300.0960, L501.9520, L503.0105, L3100.1850, L509.6000, L3200.0500, L101.9900, L500.4050, L100.0100, L501.6710, L3410.2400, L3200.1100, L503.6075, L3100.3425, L504.2610, L3100.6900 ####[facility] [address] [place], [place], [phone](457) RBC (Bld) [#/Vol] 4.88 10*6/uL Normal 4.2-5.4 [facility] Comment on above: Performed By: #### L 3300.0100, L503.6550, L2100.0000, L3300.1200, L3410.1000, L3410.0900, L3300.1800, L4500.0100, L3300.0960, L501.9520, L503.0105, L3100.1850, L509.6000, L3200.0500, L101.9900, L500.4050, L100.0100, L501.6710, L3410.2400, L3200.1100, L503.6075, L3100.3425, L504.2610, L3100.6900 ####[facility] [address] [place], [address] RDW SD 41.8 fl Normal 35.1-43.9 [facility] Comment on above: Performed By: #### L 3300.0100, L503.6550, L2100.0000, L3300.1200, L3410.1000, L3410.0900, L3300.1800, L4500.0100, L3300.0960, L501.9520, L503.0105, L3100.1850, L509.6000, L3200.0500, L101.9900, L500.4050, L100.0100, L501.6710, L3410.2400, L3200.1100, L503.6075, L3100.3425, L504.2610, L3100.6900 ####[facility] [address] [facility] [place], [place], [phone] WBC (Bld) [#/Vol] 7.6 10*3/uL Normal 4.4-11.0 [facility] Comment on above: Performed By: #### L 3300.0100, L503.6550, L2100.0000, L3300.1200, L3410.1000, L3410.0900, L3300.1800, L4500.0100, L3300.0960, L501.9520, L503.0105, L3100.1850, L509.6000, L3200.0500, L101.9900, L500.4050, L100.0100, L501.6710, L3410.2400, L3200.1100, L503.6075, L3100.3425, L504.2610, L3100.6900 ####[facility] [address] [facility] [place], [place], [phone] CORTISOL SERUMon 02-15-2024 CORTISOL 5.20 ug/dL Normal 3.44-22.45 [facility] Comment on above: Result Comment: Adul t (AM) 5.27 - 22.45 ug/dL Adult (PM) 3.44 - 16.76 ug/dL Performed By: #### L 3300.0100, L503.6550, L2100.0000, L3300.1200, L3410.1000, L3410.0900, L3300.1800, L4500.0100, L3300.0960, L501.9520, L503.0105, L3100.1850, L509.6000, L3200.0500, L101.9900, L500.4050, L100.0100, L501.6710, L3410.2400, L3200.1100, L503.6075, L3100.3425, L504.2610, L3100.6900 ####[facility] [address] [facility] [place], [place], [phone] CRPon 02-15-2024 C-REACTIVE PROT 3.67 mg/L High 0.0-3.0 [facility] Comment on above: Order Comment: 1 Result [...] L501.6710, L3410.2400, L3200.1100, L503.6075, L3100.3425, L504.2610, L3100.6900 ####[facility] [address] [facility] [place], [place], [phone] Comprehensive Metabolic Prof ilon 02-15-2024 Albumin [Mass/Vol] 3.9 g/dL Normal 3.2-5.0 [facility] Comment on above: Order Comment: 1 Performed By: #### L 3300.0100, L503.6550, L2100.0000, L3300.1200, L3410.1000, L3410.0900, L3300.1800, L4500.0100, L3300.0960, L501.9520, L503.0105, L3100.1850, L509.6000, L3200.0500, L101.9900, L500.4050, L100.0100, L501.6710, L3410.2400, L3200.1100, L503.6075, L3100.3425, L504.2610, L3100.6900 ####[facility] [address] [place], [place], [phone] Albumin/Globulin [Mass ratio] 1.0 {ratio} Normal 0.9-2.4 [facility] Comment on above: Order Comment: 1 Performed By: #### L 3300.0100, L503.6550, L2100.0000, L3300.1200, L3410.1000, L3410.0900, L3300.1800, L4500.0100, L3300.0960, L501.9520, L503.0105, L3100.1850, L509.6000, L3200.0500, L101.9900, L500.4050, L100.0100, L501.6710, L3410.2400, L3200.1100, L503.6075, L3100.3425, L504.2610, L3100.6900 ####[facility] [address] [facility] [place], [address] ALK P 112 U/L Normal 45-117 [facility] Comment on above: Order Comment: 1 Performed By: #### L 3300.0100, L503.6550, L2100.0000, L3300.1200, L3410.1000, L3410.0900, L3300.1800, L4500.0100, L3300.0960, L501.9520, L503.0105, L3100.1850, L509.6000, L3200.0500, L101.9900, L500.4050, L100.0100, L501.6710, L3410.2400, L3200.1100, L503.6075, L3100.3425, L504.2610, L3100.6900 ####[facility] [address] [place], [place], [phone] ALT [Catalytic activity/Vol] 69 U/L High 13-56 [facility] Comment on above: Order Comment: 1 Performed By: #### L 3300.0100, L503.6550, L2100.0000, L3300.1200, L3410.1000, L3410.0900, L3300.1800, L4500.0100, L3300.0960, L501.9520, L503.0105, L3100.1850, L509.6000, L3200.0500, L101.9900, L500.4050, L100.0100, L501.6710, L3410.2400, L3200.1100, L503.6075, L3100.3425, L504.2610, L3100.6900 ####[facility] [address] [facility] [address] [place], [address] AST [Catalytic activity/Vol] 36 U/L Normal 15-37 [facility] Comment on above: Order Comment: 1 Performed By: #### L 3300.0100, L503.6550, L2100.0000, L3300.1200, L3410.1000, L3410.0900, L3300.1800, L4500.0100, L3300.0960, L501.9520, L503.0105, L3100.1850, L509.6000, L3200.0500, L101.9900, L500.4050, L100.0100, L501.6710, L3410.2400, L3200.1100, L503.6075, L3100.3425, L504.2610, L3100.6900 ####[facility] [address] [facility] [place], [address] Bilirubin [Mass/Vol] 0.40 mg/dL Normal 0.20-1.00 [facility] Comment on above: Order Comment: 1 Result Comment: For patients on eltrombopag therapy, use of Dimension [place] TBIL is not recommended. Performed By: #### L 3300.0100, L503.6550, L2100.0000, L3300.1200, L3410.1000, L3410.0900, L3300.1800, L4500.0100, L3300.0960, L501.9520, L503.0105, L3100.1850, L509.6000, L3200.0500, L101.9900, L500.4050, L100.0100, L501.6710, L3410.2400, L3200.1100, L503.6075, L3100.3425, L504.2610, L3100.6900 ####[facility] [address] [place], [place], [id number] BUN/CRE 14.2 RATIO Normal 10-20 [facility] Comment on above: Order Comment: 1 Performed By: #### L 3300.0100, L503.6550, L2100.0000, L3300.1200, L3410.1000, L3410.0900, L3300.1800, L4500.0100, L3300.0960, L501.9520, L503.0105, L3100.1850, L509.6000, L3200.0500, L101.9900, L500.4050, L100.0100, L501.6710, L3410.2400, L3200.1100, L503.6075, L3100.3425, L504.2610, L3100.6900 ####[facility] [address] [place], [place], [id number] CA,Total 9.4 mg/dL Normal 8.5-10.1 [facility] Comment on above: Order Comment: 1 Performed By: #### L 3300.0100, L503.6550, L2100.0000, L3300.1200, L3410.1000, L3410.0900, L3300.1800, L4500.0100, L3300.0960, L501.9520, L503.0105, L3100.1850, L509.6000, L3200.0500, L101.9900, L500.4050, L100.0100, L501.6710, L3410.2400, L3200.1100, L503.6075, L3100.3425, L504.2610, L3100.6900 ####[facility] [address] [place], [address] Chloride [Moles/Vol] 108 mmol/L High 98-107 [facility] Comment on above: Order Comment: 1 Performed By: #### L 3300.0100, L503.6550, L2100.0000, L3300.1200, L3410.1000, L3410.0900, L3300.1800, L4500.0100, L3300.0960, L501.9520, L503.0105, L3100.1850, L509.6000, L3200.0500, L101.9900, L500.4050, L100.0100, L501.6710, L3410.2400, L3200.1100, L503.6075, L3100.3425, L504.2610, L3100.6900 ####[facility] [address] [place], [place], [phone]) CO2 [Moles/Vol] 21.0 mmol/L Normal 21.0-32.0 [facility] Comment on above: Order Comment: 1 Performed By: #### L 3300.0100, L503.6550, L2100.0000, L3300.1200, L3410.1000, L3410.0900, L3300.1800, L4500.0100, L3300.0960, L501.9520, L503.0105, L3100.1850, L509.6000, L3200.0500, L101.9900, L500.4050, L100.0100, L501.6710, L3410.2400, L3200.1100, L503.6075, L3100.3425, L504.2610, L3100.6900 ####[facility] [address] [place], [place], [phone]) Creatinine [Mass/Vol] 0.99 mg/dL Normal 0.55-1.02 [facility] Comment on above: Order Comment: 1 Result Comment: The validity of the calculated GFR GFRAA in patients over70 years has not been determined. Clinical correlation isessential. Performed By: #### L 3300.0100, L503.6550, L2100.0000, L3300.1200, L3410.1000, L3410.0900, L3300.1800, L4500.0100, L3300.0960, L501.9520, L503.0105, L3100.1850, L509.6000, L3200.0500, L101.9900, L500.4050, L100.0100, L501.6710, L3410.2400, L3200.1100, L503.6075, L3100.3425, L504.2610, L3100.6900 ####[facility] [address] [place], [address] EST GFR - AA 83 mL/min Normal >60 [facility] Comment on above: Order Comment: 1 Result Comment: Afri can [place] GFR Calc Performed By: #### L 3300.0100, L503.6550, L2100.0000, L3300.1200, L3410.1000, L3410.0900, L3300.1800, L4500.0100, L3300.0960, L501.9520, L503.0105, L3100.1850, L509.6000, L3200.0500, L101.9900, L500.4050, L100.0100, L501.6710, L3410.2400, L3200.1100, L503.6075, L3100.3425, L504.2610, L3100.6900 ####[facility] [address] [place], [address] GAP 9 Normal 5-15 [facility] Comment on above: Order Comment: 1 Performed By: #### L 3300.0100, L503.6550, L2100.0000, L3300.1200, L3410.1000, L3410.0900, L3300.1800, L4500.0100, L3300.0960, L501.9520, L503.0105, L3100.1850, L509.6000, L3200.0500, L101.9900, L500.4050, L100.0100, L501.6710, L3410.2400, L3200.1100, L503.6075, L3100.3425, L504.2610, L3100.6900 ####[facility] [address] [facility] [place], [place], [phone] GFR/1.73 sq M.predicted among non-blacks MDRD (S/P/Bld) [Vol rate/Area] 69 mL/min/{1.73_m2} Normal >60 [facility] Comment on above: Order Comment: 1 Result Comment: Non- GFR Calc Performed By: #### L 3300.0100, L503.6550, L2100.0000, L3300.1200, L3410.1000, L3410.0900, L3300.1800, L4500.0100, L3300.0960, L501.9520, L503.0105, L3100.1850, L509.6000, L3200.0500, L101.9900, L500.4050, L100.0100, L501.6710, L3410.2400, L3200.1100, L503.6075, L3100.3425, L504.2610, L3100.6900 ####[facility] [address] [facility] [place], [place], [phone] Globulin (S) [Mass/Vol] 3.8 g/dL Normal 2.2-4.2 [facility] Comment on above: Order Comment: 1 Performed By: #### L 3300.0100, L503.6550, L2100.0000, L3300.1200, L3410.1000, L3410.0900, L3300.1800, L4500.0100, L3300.0960, L501.9520, L503.0105, L3100.1850, L509.6000, L3200.0500, L101.9900, L500.4050, L100.0100, L501.6710, L3410.2400, L3200.1100, L503.6075, L3100.3425, L504.2610, L3100.6900 ####[facility] [address] [place], [address] Glucose [Mass/Vol] 83 mg/dL Normal 74-106 [facility] Comment on above: Order Comment: 1 Performed By: #### L 3300.0100, L503.6550, L2100.0000, L3300.1200, L3410.1000, L3410.0900, L3300.1800, L4500.0100, L3300.0960, L501.9520, L503.0105, L3100.1850, L509.6000, L3200.0500, L101.9900, L500.4050, L100.0100, L501.6710, L3410.2400, L3200.1100, L503.6075, L3100.3425, L504.2610, L3100.6900 ####[facility] [address] [place], [place], [phone] Potassium [Moles/Vol] 4.0 mmol/L Normal 3.5-5.1 [facility] Comment on above: Order Comment: 1 Performed By: #### L 3300.0100, L503.6550, L2100.0000, L3300.1200, L3410.1000, L3410.0900, L3300.1800, L4500.0100, L3300.0960, L501.9520, L503.0105, L3100.1850, L509.6000, L3200.0500, L101.9900, L500.4050, L100.0100, L501.6710, L3410.2400, L3200.1100, L503.6075, L3100.3425, L504.2610, L3100.6900 ####[facility] [address] [place], [place], [phone] Sodium [Moles/Vol] 138 mmol/L Normal 136-145 [facility] Comment on above: Order Comment: 1 Performed By: #### L 3300.0100, L503.6550, L2100.0000, L3300.1200, L3410.1000, L3410.0900, L3300.1800, L4500.0100, L3300.0960, L501.9520, L503.0105, L3100.1850, L509.6000, L3200.0500, L101.9900, L500.4050, L100.0100, L501.6710, L3410.2400, L3200.1100, L503.6075, L3100.3425, L504.2610, L3100.6900 ####[facility] [address] [place], [address] T PROT 7.7 g/dL Normal 6.4-8.2 [facility] Comment on above: Order Comment: 1 Performed By: #### L 3300.0100, L503.6550, L2100.0000, L3300.1200, L3410.1000, L3410.0900, L3300.1800, L4500.0100, L3300.0960, L501.9520, L503.0105, L3100.1850, L509.6000, L3200.0500, L101.9900, L500.4050, L100.0100, L501.6710, L3410.2400, L3200.1100, L503.6075, L3100.3425, L504.2610, L3100.6900 ####[facility] [address] [place], [address] Urea nitrogen [Mass/Vol] 14 mg/dL Normal 7-18 [facility] Comment on above: Order Comment: 1 Performed By: #### L 3300.0100, L503.6550, L2100.0000, L3300.1200, L3410.1000, L3410.0900, L3300.1800, L4500.0100, L3300.0960, L501.9520, L503.0105, L3100.1850, L509.6000, L3200.0500, L101.9900, L500.4050, L100.0100, L501.6710, L3410.2400, L3200.1100, L503.6075, L3100.3425, L504.2610, L3100.6900 ####[facility] [address] [place], [place], [phone] Erythrocyte Sed Rateon 02-14 SED RATE 22 mm/hr Normal 0-30 [facility] Comment on above: Performed By: #### L 3300.0100, L503.6550, L2100.0000, L3300.1200, L3410.1000, L3410.0900, L3300.1800, L4500.0100, L3300.0960, L501.9520, L503.0105, L3100.1850, L509.6000, L3200.0500, L101.9900, L500.4050, L100.0100, L501.6710, L3410.2400, L3200.1100, L503.6075, L3100.3425, L504.2610, L3100.6900 ####[facility] [address] [place], [place], [phone] Ferritinon 02-15-2024 Ferritin [Mass/Vol] 50 ng/mL Normal 8-252 [facility] Comment on above: Order Comment: 1 Performed By: #### L 3300.0100, L503.6550, L2100.0000, L3300.1200, L3410.1000, L3410.0900, L3300.1800, L4500.0100, L3300.0960, L501.9520, L503.0105, L3100.1850, L509.6000, L3200.0500, L101.9900, L500.4050, L100.0100, L501.6710, L3410.2400, L3200.1100, L503.6075, L3100.3425, L504.2610, L3100.6900 ####[facility] [address] [place], [place], [phone] Iron Binding Capacity,Totalo n 02-15-2024 TIBC 375 ug/dL Normal 250-450 [facility] Comment on above: Order Comment: 1 Performed By: #### L 3300.0100, L503.6550, L2100.0000, L3300.1200, L3410.1000, L3410.0900, L3300.1800, L4500.0100, L3300.0960, L501.9520, L503.0105, L3100.1850, L509.6000, L3200.0500, L101.9900, L500.4050, L100.0100, L501.6710, L3410.2400, L3200.1100, L503.6075, L3100.3425, L504.2610, L3100.6900 ####[facility] [address] [place], [place], [phone] LDHon 02-15-2024 LDH 245 U/L Normal 84-246 [facility] Comment on above: Order Comment: 1 Performed By: #### L 3300.0100, L503.6550, L2100.0000, L3300.1200, L3410.1000, L3410.0900, L3300.1800, L4500.0100, L3300.0960, L501.9520, L503.0105, L3100.1850, L509.6000, L3200.0500, L101.9900, L500.4050, L100.0100, L501.6710, L3410.2400, L3200.1100, L503.6075, L3100.3425, L504.2610, L3100.6900 ####[facility] [address] [place], [place], [phone] Thyroid Stim Hormone (TSH)on 10-11-2024 TSH 2.170 uIU/mL Normal 0.358-3.740 [facility] Comment on above: Order Comment: 1 Performed By: #### L 3300.0100, L503.6550, L2100.0000, L3300.1200, L3410.1000, L3410.0900, L3300.1800, L4500.0100, L3300.0960, L501.9520, L503.0105, L3100.1850, L509.6000, L3200.0500, L101.9900, L500.4050, L100.0100, L501.6710, L3410.2400, L3200.1100, L503.6075, L3100.3425, L504.2610, L3100.6900 ####[facility] [address] [place], [address] Vitamin B12on 02-15-2024 Cobalamin (Vitamin B12) [Mass/Vol] 587 pg/mL Normal 211-911 [facility] Comment on above: Performed By: #### L 3300.0100, L503.6550, L2100.0000, L3300.1200, L3410.1000, L3410.0900, L3300.1800, L4500.0100, L3300.0960, L501.9520, L503.0105, L3100.1850, L509.6000, L3200.0500, L101.9900, L500.4050, L100.0100, L501.6710, L3410.2400, L3200.1100, L503.6075, L3100.3425, L504.2610, L3100.6900 ####[facility] [address] [place], [address] [facility] ANNEN Telephone (OBGYWM) SANDIE BECERRIL ([id number]) 1990 F Date Time Provider Department 02/14/24 [...] Status:Closed by CLAUDIA WOODALL on 02/14/24 Normal [facility] Urine Cultureon 02-14-2024 URC Mixed Gram Positive Organisms [place] Count 11,000-25,000 MIXC Mixed contaminants. Submit a new specimen if indicated. Normal [facility] Comment on above: Performed By: #### M 100.2200 ####[facility] [address] [place], [place], [phone] Gastroenterology Visit Repor ton 02-13-2024 Gastroenterology Visit Report Normal [facility] Brain/Head without Contrasto n 02-12-2024 Brain/Head without Contrast Normal [facility] CBC W/Diff, Automatedon 10-0 Absolute Lymph 1.54 X10 3/uL Normal 0.83-4.51 [facility] Comment on above: Performed By: #### L 100.0100, L500.4050 ####[facility] [address] [place], [address] Absolute Neut 3.5 X10 3/uL Normal 2.0-7.7 [facility] Comment on above: Performed By: #### L 100.0100, L500.4050 ####[facility] [address] [place], [address] Basophils/100 WBC (Bld) 1.2 % High 0-1 [facility] Comment on above: Performed By: #### L 100.0100, L500.4050 ####[facility] [address] [place], [address] Eosinophils/100 WBC (Bld) 2.5 % Normal 0-5 [facility] Comment on above: Performed By: #### L 100.0100, L500.4050 ####[facility] [address] [place], [address] Erythrocyte distribution width (RBC) [Ratio] 13.1 % Normal 11.6-14.6 [facility] Comment on above: Performed By: #### L 100.0100, L500.4050 ####[facility] [address] [place], [address] Hematocrit (Bld) [Volume fraction] 41.7 % Normal 37-47 [facility] Comment on above: Performed By: #### L 100.0100, L500.4050 ####[facility] [address] [place], [address] Hemoglobin (Bld) [Mass/Vol] 13.8 g/dL Normal 12.0-15.0 [facility] Comment on above: Performed By: #### L 100.0100, L500.4050 ####[facility] [address] [place], [address] IG% 0.200 Normal 0.0-0.9 [facility] Comment on above: Result Comment: IG% - Immature Granulocytes (promyelocytes, myelocytes andmetamyelocytes) > 1% indicates that a LEFT SHIFT is Present. Performed By: #### L 100.0100, L500.4050 ####[facility] [address] [place], [address] Lymphocytes/100 WBC (Bld) 26.1 % Normal 19-41 [facility] Comment on above: Performed By: #### L 100.0100, L500.4050 ####[facility] [address] [place], [address] MCH (RBC) [Entitic mass] 29.6 pg Normal 27.0-32.0 [facility] Comment on above: Performed By: #### L 100.0100, L500.4050 ####[facility] [address] [place], [address] MCHC (RBC) [Mass/Vol] 33.1 g/dL Normal 32-36 [facility] Comment on above: Performed By: #### L 100.0100, L500.4050 ####[facility] [address] [place], [address] MCV (RBC) [Entitic vol] 89.3 fL Normal 81-99 [facility] Comment on above: Performed By: #### L 100.0100, L500.4050 ####[facility] [address] [place], [address] Monocytes/100 WBC (Bld) 10.0 % Normal 0-10 [facility] Comment on above: Performed By: #### L 100.0100, L500.4050 ####[facility] [address] [place], [address] Neutrophils/100 WBC (Bld) 60.0 % Normal 47-70 [facility] Comment on above: Performed By: #### L 100.0100, L500.4050 ####[facility] [address] [place], [address] Nucleated RBC (Bld) [#/Vol] 0 10*3/uL Normal 0-5 [facility] Comment on above: Performed By: #### L 100.0100, L500.4050 ####[facility] [address] [place], [address] Platelet mean volume (Bld) [Entitic vol] 10.0 fL Normal 6.2-12.0 [facility] Comment on above: Performed By: #### L 100.0100, L500.4050 ####[facility] [address] [place], [address] Platelets (Bld) [#/Vol] 377 10*3/uL Normal 150-450 [facility] Comment on above: Performed By: #### L 100.0100, L500.4050 ####[facility] [address] [place], [address] RBC (Bld) [#/Vol] 4.67 10*6/uL Normal 4.2-5.4 [facility] Comment on above: Performed By: #### L 100.0100, L500.4050 ####[facility] [address] [place], [address] RDW SD 42.7 fl Normal 35.1-43.9 [facility] Comment on above: Performed By: #### L 100.0100, L500.4050 ####[facility] [address] [place], [address] WBC (Bld) [#/Vol] 5.9 10*3/uL Normal 4.4-11.0 [facility] Comment on above: Performed By: #### L 100.0100, L500.4050 ####[facility] [address] [place], [address] Comprehensive Metabolic Prof ilon 02-12-2024 Albumin [Mass/Vol] 3.5 g/dL Normal 3.2-5.0 [facility] Comment on above: Performed By: #### L 100.0100, L500.4050 ####[facility] [address] [place], [address] Albumin/Globulin [Mass ratio] 1.1 {ratio} Normal 0.9-2.4 [facility] Comment on above: Performed By: #### L 100.0100, L500.4050 ####[facility] [address] [place], [address] ALK P 108 U/L Normal 45-117 [facility] Comment on above: Performed By: #### L 100.0100, L500.4050 ####[facility] [address] [place], [address] ALT [Catalytic activity/Vol] 54 U/L Normal 13-56 [facility] Comment on above: Performed By: #### L 100.0100, L500.4050 ####[facility] [address] [place], [address] AST [Catalytic activity/Vol] 25 U/L Normal 15-37 [facility] Comment on above: Performed By: #### L 100.0100, L500.4050 ####[facility] [address] [place], [address] Bilirubin [Mass/Vol] 0.20 mg/dL Normal 0.20-1.00 [facility] Comment on above: Result Comment: For patients on eltrombopag therapy, use of Dimension [place] TBIL is not recommended. Performed By: #### L 100.0100, L500.4050 ####[facility] [address] [place], [address] BUN/CRE 10.9 RATIO Normal 10-20 [facility] Comment on above: Performed By: #### L 100.0100, L500.4050 ####[facility] [address] [place], [address] CA,Total 8.8 mg/dL Normal 8.5-10.1 [facility] Comment on above: Performed By: #### L 100.0100, L500.4050 ####[facility] [address] [place], [address] Chloride [Moles/Vol] 106 mmol/L Normal 98-107 [facility] Comment on above: Performed By: #### L 100.0100, L500.4050 ####[facility] [address] [place], [address] CO2 [Moles/Vol] 28.0 mmol/L Normal 21.0-32.0 [facility] Comment on above: Performed By: #### L 100.0100, L500.4050 ####[facility] [address] [place], [address] Creatinine [Mass/Vol] 1.10 mg/dL High 0.55-1.02 [facility] Comment on above: Result Comment: The validity of the calculated GFR GFRAA in patients over70 years has not been determined. Clinical correlation isessential. Performed By: #### L 100.0100, L500.4050 ####[facility] [address] [place], [address] ECRCL 80.51 ml/min Normal [facility] Comment on above: Performed By: #### L 100.0100, L500.4050 ####[facility] [address] [place], [address] EST GFR - AA 73 mL/min Normal >60 [facility] Comment on above: Result Comment: Afri can [place] GFR Calc Performed By: #### L 100.0100, L500.4050 ####[facility] [address] [place], [address] GAP 8 Normal 5-15 [facility] Comment on above: Performed By: #### L 100.0100, L500.4050 ####[facility] [address] [place], [address] GFR/1.73 sq M.predicted among non-blacks MDRD (S/P/Bld) [Vol rate/Area] 61 mL/min/{1.73_m2} Normal >60 [facility] Comment on above: Result Comment: Non- GFR Calc Performed By: #### L 100.0100, L500.4050 ####[facility] [address] [place], [address] Globulin (S) [Mass/Vol] 3.1 g/dL Normal 2.2-4.2 [facility] Comment on above: Performed By: #### L 100.0100, L500.4050 ####[facility] [address] [place], [address] Glucose [Mass/Vol] 104 mg/dL Normal 74-106 [facility] Comment on above: Result Comment: Fast ing Glucose result from 100 to 125 mg/dLsuggests IMPAIRED HOMEOSTASIS per A.D.A. criteria. Performed By: #### L 100.0100, L500.4050 ####[facility] [address] [place], [address] Potassium [Moles/Vol] 3.3 mmol/L Low 3.5-5.1 [facility] Comment on above: Performed By: #### L 100.0100, L500.4050 ####[facility] [address] [place], [address] Sodium [Moles/Vol] 142 mmol/L Normal 136-145 [facility] Comment on above: Performed By: #### L 100.0100, L500.4050 ####[facility] [address] [place], [address] T PROT 6.6 g/dL Normal 6.4-8.2 [facility] Comment on above: Performed By: #### L 100.0100, L500.4050 ####[facility] [address] [place], [address] Urea nitrogen [Mass/Vol] 12 mg/dL Normal 7-18 [facility] Comment on above: Performed By: #### L 100.0100, L500.4050 ####[facility] [address] [place], [address] Emergency Department Summary on 02-12-2024 Emergency Department Summary Normal [facility] M100.678on 02-12-2024 M100.678 Pending SARS-CoV-2 (COVID 19) Negative INFLUENZA A Negative INFLUENZA B Negative RSV PCR Negative Normal [facility] Comment on above: Performed By: #### M 100.678, L400.0001 ####[facility] [address] [place], [address] Urinalysis, Completeon 02-11 BACTERIA 2+ /hpf Normal None Seen [facility] Comment on above: Order Comment: COLLE CTOR TO SPECIFY Performed By: #### M 100.678, L400.0001 ####[facility] [address] [place], [address] Mucus Ql (Urine sed) 2+ /hpf Normal [facility] Comment on above: Order Comment: COLLE CTOR TO SPECIFY Performed By: #### M 100.678, L400.0001 ####[facility] [address] [place], [address] RBC 0-5 SEEN Normal 0-5 [facility] Comment on above: Order Comment: COLLE CTOR TO SPECIFY Performed By: #### M 100.678, L400.0001 ####[facility] [address] [place], [address] WBC 5-10 SEEN Normal 0-5 [facility] Comment on above: Order Comment: COLLE CTOR TO SPECIFY Performed By: #### M 100.678, L400.0001 ####[facility] [address] [place], [address] EPI,SQUAMOUS 0-5 SEEN Normal 5-10 [facility] Comment on above: Order Comment: COLLE CTOR TO SPECIFY Performed By: #### M 100.678, L400.0001 ####[facility] [address] [place], [address] Emergency Department Summary on 02-06-2024 Emergency Department Summary Normal [facility] CDIFF (PCR)on 02-05-2024 CDIFF Pending 027 027 NAP1-B1 Presumptive Negative *for epidemiolologic???use C. Diff PCR Negative- No toxigenic C. Diff Detected Normal [facility] Comment on above: Performed By: #### M 100.6796, M100.637, M7400.3302, M600.5000 ####[facility] [address] [place], [address] ENTERIC PATHOGEN PANEL STOOL on 02-05-2024 EP PANEL Normal [facility] Comment on above: Performed By: #### M 100.6796, M100.637, M7400.3302, M600.5000 ####[facility] [address] [place], [address] MR/BMS.BPon 02-05-2024 MR/BMS.BP Normal [facility] CBC W/Diff, Automatedon 09-2 Absolute Lymph 1.41 X10 3/uL Normal 0.83-4.51 [facility] Comment on above: Performed By: #### L 100.0100, L501.9520 ####[facility] [address] [place], [address] Absolute Neut 5.3 X10 3/uL Normal 2.0-7.7 [facility] Comment on above: Performed By: #### L 100.0100, L501.9520 ####[facility] [address] [place], [address] Basophils/100 WBC (Bld) 1.2 % High 0-1 [facility] Comment on above: Performed By: #### L 100.0100, L501.9520 ####[facility] [address] [place], [address] Eosinophils/100 WBC (Bld) 0.5 % Normal 0-5 [facility] Comment on above: Performed By: #### L 100.0100, L501.9520 ####[facility] [address] [place], [address] Erythrocyte distribution width (RBC) [Ratio] 13.1 % Normal 11.6-14.6 [facility] Comment on above: Performed By: #### L 100.0100, L501.9520 ####[facility] [address] [place], [address] Hematocrit (Bld) [Volume fraction] 47.0 % Normal 37-47 [facility] Comment on above: Performed By: #### L 100.0100, L501.9520 ####[facility] [address] [place], [address] Hemoglobin (Bld) [Mass/Vol] 15.4 g/dL High 12.0-15.0 [facility] Comment on above: Performed By: #### L 100.0100, L501.9520 ####[facility] [address] [place], [address] IG% 0.300 Normal 0.0-0.9 [facility] Comment on above: Result Comment: IG% - Immature Granulocytes (promyelocytes, myelocytes andmetamyelocytes) > 1% indicates that a LEFT SHIFT is Present. Performed By: #### L 100.0100, L501.9520 ####[facility] [address] [place], [address] Lymphocytes/100 WBC (Bld) 18.6 % Low 19-41 [facility] Comment on above: Performed By: #### L 100.0100, L501.9520 ####[facility] [address] [place], [address] MCH (RBC) [Entitic mass] 29.3 pg Normal 27.0-32.0 [facility] Comment on above: Performed By: #### L 100.0100, L501.9520 ####[facility] [address] [place], [address] MCHC (RBC) [Mass/Vol] 32.8 g/dL Normal 32-36 [facility] Comment on above: Performed By: #### L 100.0100, L501.9520 ####[facility] [address] [place], [address] MCV (RBC) [Entitic vol] 89.4 fL Normal 81-99 [facility] Comment on above: Performed By: #### L 100.0100, L501.20 ####[facility] [address] [place], [address] Monocytes/100 WBC (Bld) 9.6 % Normal 0-10 [facility] Comment on above: Performed By: #### L 100.0100, L501.9520 ####[facility] [address] [place], [address] Neutrophils/100 WBC (Bld) 69.8 % Normal 47-70 [facility] Comment on above: Performed By: #### L 100.0100, L501.9520 ####[facility] [address] [place], [address] Nucleated RBC (Bld) [#/Vol] 0 10*3/uL Normal 0-5 [facility] Comment on above: Performed By: #### L 100.0100, L501.9520 ####[facility] [address] [place], [address] Platelet mean volume (Bld) [Entitic vol] 10.6 fL Normal 6.2-12.0 [facility] Comment on above: Performed By: #### L 100.0100, L501.9520 ####[facility] [address] [place], [address] Platelets (Bld) [#/Vol] 428 10*3/uL Normal 150-450 [facility] Comment on above: Performed By: #### L 100.0100, L501.9520 ####[facility] [address] [place], [address] RBC (Bld) [#/Vol] 5.26 10*6/uL Normal 4.2-5.4 [facility] Comment on above: Performed By: #### L 100.0100, L501.9520 ####[facility] [address] [place], [address] RDW SD 42.5 fl Normal 35.1-43.9 [facility] Comment on above: Performed By: #### L 100.0100, L501.9520 ####[facility] [address] [place], [address] WBC (Bld) [#/Vol] 7.6 10*3/uL Normal 4.4-11.0 [facility] Comment on above: Performed By: #### L 100.0100, L501.9520 ####[facility] [address] [place], [address] Internal Medicine Office Vis trish 02-01-2024 Internal Medicine Office Visit Normal [facility] Thyroid Stim Hormone (TSH)on 02-01-2024 TSH 2.740 uIU/mL Normal 0.358-3.740 [facility] Comment on above: Performed By: #### L 100.0100, L501.9520 ####[facility] [address] [place], [address] MR/BMS.BPon 01-17-2024 MR/BMS.BP Normal [facility] Chest PA and Lateralon 01-15 Chest PA and Lateral Normal [facility] Emergency Department Summary on 01-16-2024 Emergency Department Summary Normal [facility] M100.678on 01-16-2024 M100.678 Pending SARS-CoV-2 (COVID 19) Negative INFLUENZA A Negative INFLUENZA B Negative RSV PCR Negative [facility] Comment on above: Performed By: #### M 100.678 ####[facility] [address] [place], [address] Emergency Department Summary on 12-19-2023 Emergency Department Summary Normal [facility] M100.677on 12-19-2023 M100.677 Negative [facility] Comment on above: Performed By: #### M 100.677, M100.678 ####[facility] [address] [place], [address] M100.678on 12-19-2023 M100.678 SARS-CoV-2 (COVID 19 ) Negative INFLUENZA A Negative INFLUENZA B Negative RSV PCR Negative [facility] Comment on above: Performed By: #### M 100.677, M100.678 ####[facility] [address] [place], [address] Emergency Department Summary on 12-08-2023 Emergency Department Summary Normal [facility] C. trachomatis+N. gonorrhoea e DNA AUSTIN+probe Ql (Unsp spec)on 11-22-2023 C. trachomatis rRNA [place]USTIN+probe Ql (Unsp spec) Negative Normal Negative for Chlamydia trachomatis by amplificaton [facility] Comment on above: Order Comment: Speci men Type: SWABOrdering Facility: [facility] Address: [address] [place] [address] Performed By: #### 3 6902-5 ####[facility] LABCLIA [id number] [address] [place] N. gonorrhoeae rRNA [place]UST[place]+probe Ql (Unsp spec) Negative Normal Negative for Neisseria gonorrhoeae by amplification [facility] Comment on above: Order Comment: Speci men Type: SWABOrdering Facility: [facility] Address: [address] [place] [address] Performed By: #### 3 6902-5 ####[facility] LABCLIA [id number] [address] [place] CNOVon 11-22-2023 CNOV Office Visit (OBGYWM ) SANDIE BECERRIL ([id number]) 1990 F Date Time Provider Department 11/22/23 1:30 PM PRATIMA KAT OBKINZAWFlako During your visit today, we recorded the following information about you: Blood pressure Weight Height 110/70 88 kg 1.676 m Pratima Kat MD 11/22/2023 2:12 PM 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 Normal [facility] HIGH RISK HUMAN PAPILLOMA KAREN (HPV), PCR FOR DETECTION AND GENOTYPINGon 11-22-2023 HPV 16 Ag Ql (Unsp spec) Not detected Normal Not detected [facility] Comment on above: Order Comment: Speci men Type: FLUID SPECIMENOrdering Facility: [facility] Address: [address] [place] [address] Performed By: #### L [id number] ####[facility]ORYCLIA [id number] [address] LABCLIA [id number] [place] [address] [place]#### HPVHRT ####[facility] LABCLIA [id number] [place] [address] [place] HPV 18 Ag Ql (Unsp spec) Not detected Normal Not detected [facility] Comment on above: Order Comment: Speci men Type: FLUID SPECIMENOrdering Facility: [facility] Address: [address] [place] [address] Performed By: #### L [id number] ####[facility] [id number] [address] LABCLIA [id number] [place] [address] [place]#### HPVHRT ####[facility] LABCLIA [id number] [place] [address] [place] HPV 31+33+35+39+45+51+52+5 6+58+59+66+68 DNA AUSTIN+probe Ql (Cvx) Not detected Normal Not detected [facility] Comment on above: Order Comment: Speci men Type: FLUID SPECIMENOrdering Facility: [facility] Address: [address] [place] [address] Result Comment: High Risk HPV Other Type includes HPV types 31, 33, 35, 39, 45, 51, 52, 56, 58, 59, 66 and 68. Performed By: #### L [id number] ####[facility]ORATORYCLIA [id number] [address] STATES OF [facility] LABCLIA [id number] [place] [address] [place]#### HPVHRT ####[facility] LABCLIA [id number] [place] [address] [place] PAP TESTon 11-22-2023 ADEQUACY Satisfactory for interpretation. Normal [facility] Comment on above: Order Comment: Speci men Type: FLUID SPECIMENOrdering Facility: [facility] Address: [address] [place] [address] Performed By: #### L [id number] ####[facility] LABORATORYCLIA [id number] [place] [address] [place] [facility] LABCLIA [id number] [place] [address] [place]#### HPVHRT ####[facility] LABCLIA [id number] [place] [address] [place] CASE REPORT Normal [facility] Comment on above: Order Comment: Speci men Type: FLUID SPECIMENOrdering Facility: [facility] Address: [address] [place] [address] Result Comment: Gyne cologic Cytology Report Case: [id number] Authorizing Provider: Pratima Kat MD Collected: 11/22/2023 02:10 PM Ordering Location: OB/Gynecology Received: 11/22/2023 04:41 PM First Screen: Veto, Ana, CT, ASCP Specimen: Pap Test, ThinPrep, Cervix Performed By: #### L [id number] ####[facility] LABORATORYCLIA [id number] [place] [address] [place] [facility] LABCLIA [id number] [place] [address] [place]#### HPVHRT ####[facility] LABCLIA [id number] [place] [address] [place] CLINICAL HISTORY, CYTOLOGY, RESIDENT ASSOCIATE Routine Exam Normal [facility] Comment on above: Order Comment: Speci men Type: FLUID SPECIMENOrdering Facility: [facility] Address: [address] [place] [address] Result Comment: Horm onal Contraceptive, No Menses Performed By: #### L [id number] ####[facility]ORATORYCLIA [id number] [place] [id number] [facility] LABCLIA [id number] [place] [address] [place]#### HPVHRT ####[facility] LABCLIA [id number] [place] [address] [place] CYTOLOGY PAP OTHER INT Trichomonas vaginalis. Normal [facility] Comment on above: Order Comment: Speci men Type: FLUID SPECIMENOrdering Facility: [facility] Address: [address] [place] [address] Performed By: #### L [id number] ####[facility]ORATORYCLIA [id number] [address] LABCLIA [id number] [place] [address] [place]#### HPVHRT ####[facility] LABCLIA [id number] [place] [address] [place] FINAL PERFORMING LAB Normal [facility] Comment on above: Order Comment: Speci men Type: FLUID SPECIMENOrdering Facility: [facility] Address: [address] [place] [address] Result Comment: Tech nical component, heat and frost insulator screening performed at [facility], [address] [place] [address] CLIA# [id number] Diagnostic interpretation performed at [facility], [address] [place] [address] CLIA# [id number] Die Trouble Shooter: Woody Lowery M.D. Performed By: #### L [id number] ####[facility] LABORATORYCLIA [id number] [place] [address] [facility] LABCLIA [id number] [place] [id number] [place]#### HPVHRT ####[facility] LABCLIA [id number] [place] [address] [place] HPV REFLEX Yes HPV Normal [facility] Comment on above: Order Comment: Speci men Type: FLUID SPECIMENOrdering Facility: [facility] Address: [address] [place] [address] Performed By: #### L [id number] ####[facility]ORATORYCLIA [id number] [place] [address] [place] [facility] LABCLIA [id number] [place] [address] [place]#### HPVHRT ####[facility] LABCLIA [id number] [place] [address] [place] INTERPRETATION, CYTOLOGY, RESIDENT ASSOCIATE Normal [facility] Comment on above: Order Comment: Speci men Type: FLUID SPECIMENOrdering Facility: [facility] Address: [address] [place] [address] Result Comment: Nega tive for intraepithelial lesion or malignancy. Performed By: #### L [id number] ####[facility] LABORATORYCLIA [id number] [place] [id number] [place] [facility] LABCLIA [id number] [place] [address] [place]#### HPVHRT ####[facility] LABCLIA [id number] [place] [address] [place] PAP DISCLAIMER COMMENT The Pap Smear is a screening test for cervical cancer. False negative results occur with all screening tests, emphasizing the need for rescreening at recommended intervals, and clinical correlation. Normal [facility] Comment on above: Order Comment: Speci men Type: FLUID SPECIMENOrdering Facility: [facility] Address: [facility] [place] [address] Performed By: #### L [id number] ####[facility] LABORATORYCLIA [id number] [address] LABCLIA [id number] [address] [place]#### HPVHRT ####[facility] LABIA [id number] [address] STATES OF [place] PAP CERTIFIED PERSONAL TRAINER COMMENT This specimen has be en analyzed by the ThinPrep Imaging System, an automated imaging and review system, which assists the laboratory in evaluating cells on ThinPrep Pap tests. Following automated imaging, selected arteaga from every slide are reviewed by a heat and frost insulator. Normal [facility] Comment on above: Order Comment: Speci men Type: FLUID SPECIMENOrdering Facility: [facility] Address: [address] [place] [address] Performed By: #### L [id number] ####[facility] LABORATORYCLIA [id number] [address] LABCLIA [id number] [address] STATES OF [place]#### HPVHRT ####[facility] LABCLIA [id number] [address] [place] .Auto Diffon 11-19-2023 Basophil, Absolute 0.1 10 3/mcL Normal 0.0-0.2 [facility] ([place]) Comment on above: Performed By: #### C SCOTT DACOSTA ANEU, MDW, CBC, GFR, LIP #### Keyshawn [address] [address] Basophils/100 WBC (Bld) 0.8 % Normal 0.0-2.5 [facility] ([place] Comment on above: Performed By: #### C SCOTT DACOSTA ANEU, MDW, CBC, GFR, LIP #### [place]wn [address] [address] Eosinophil, Absolute 0.1 10 3/mcL Normal 0.0-0.4 [facility] ([place] Comment on above: Performed By: #### C SCOTT DACOSTA ANEU, MDW, CBC, GFR, LIP #### [address] [address] Eosinophils/100 WBC (Bld) 0.7 % Normal 0.0-7.0 [facility] ([place] Comment on above: Performed By: #### C PRANEETH, SCOTT, MD TRACYW, CBC, GFR, LIP #### [address] [address] Lymphocyte, Absolute 1.6 10 3/mcL Normal 0.8-3.9 [facility] ([place] Comment on above: Performed By: #### C SCOTT DACOSTA ANEU, MDW, CBC, GFR, LIP #### [address] [address] Lymphocytes/100 WBC (Bld) 17.3 % Normal 10.0-50.0 [facility] ([place] Comment on above: Performed By: #### C SCOTT DACOSTA ANEU, MDW, CBC, GFR, LIP #### [address] [address] Monocyte, Absolute 0.8 10 3/mcL Normal 0.2-1.0 [facility] ([place] Comment on above: Performed By: #### C SCOTT DACOSTA ANEU, MDW, CBC, GFR, LIP #### [address] [address] Monocytes/100 WBC (Bld) 8.2 % Normal 1.7-13.0 [facility] ([place] Comment on above: Performed By: #### C SCOTT DACOSTA ANEU, MDW, CBC, GFR, LIP #### [address] [address] Neutrophils/100 WBC (Bld) 73.0 % Normal 37.0-80.0 [facility] ([place] Comment on above: Performed By: #### C SCOTT DACOSTA ANEU, MDW, CBC, GFR, LIP #### Keyshawn [address] [place], [place] [address] .GFRon 11-19-2023 GFR 68 ml/min/1.73sqm Normal [facility] ([place] Comment on above: Result Comment: GFR Population [...] DACOSTA ANEU, MDW, CBC, GFR, LIP ####[place] [place], [place] [address] GFR Non- 56 ml/min/1.73sqm Normal [facility] ([place] Comment on above: Result Comment: GFR Population [...] DACOSTA ANEU, MDW, CBC, GFR, LIP ####[address]hawn [address] [place], [place] [address] .MDWon 11-19-2023 Monocyte Distribution Width 15.19 Normal 0.00-20.00 [facility] ([place] Comment on above: Result Comment: For ED adult patients suspected of sepsis, MDW<=20.0 does not rule out sepsis or risk of sepsis Performed By: #### C SCOTT DACOSTA ANEU, MDW, CBC, GFR, LIP #### [place] [address] .NEUABSon 11-19-2023 Neutrophil, Absolute 6.7 10 3/mcL High 2.9-6.2 [facility] ([place] Comment on above: Performed By: #### C SCOTT DACOSTA ANEU, MDW, CBC, GFR, LIP #### [place] [address] .Urinalysis Microscopic (AO) on 11-19-2023 UA RBC 0-5 Abnormal None Seen [facility] ([place] Comment on above: Performed By: #### Chio AMIMANISHA UA #### [place] [address] UA Squam Epithelial 5-10 Abnormal None Seen [facility] ([place] Comment on above: Performed By: #### U AMICADenis, UA #### [place] [address] UA WBC 10-15 Abnormal None Seen [facility] ([place] Comment on above: Performed By: #### U AMICADenis, UA #### [place] [address] CBCon 11-19-2023 Erythrocyte distribution width (RBC) [Ratio] 13.1 % Normal 11.5-14.5 [facility] ([place] Comment on above: Performed By: #### C SCOTT DACOSTA ANEU, MDW, CBC, GFR, LIP #### [place] [address] Hematocrit (Bld) [Volume fraction] 40.9 % Normal 37.0-47.0 [facility] ([place] Comment on above: Performed By: #### C SCOTT DACOSTA ANEU, MDW, CBC, GFR, LIP #### [address] [address] Hgb 14.0 G/dL Normal 12.0-16.0 [facility] ([place] Comment on above: Performed By: #### C SCOTT DACOSTA ANEU, MDW, CBC, GFR, LIP #### [address] [address] MCH (RBC) [Entitic mass] 30.4 pg Normal 27.0-31.2 [facility] ([place] Comment on above: Performed By: #### C SCOTT DACOSTA ANEU, MDW, CBC, GFR, LIP #### [address] [address] MCHC 34.1 G/dL Normal 33.0-37.0 [facility] ([place] Comment on above: Performed By: #### C SCOTT DACOSTA ANEU, MDW, CBC, GFR, LIP #### [address] [address] MCV (RBC) [Entitic vol] 89.3 fL Normal 80.0-94.0 [facility] ([place] Comment on above: Performed By: #### C SCOTT DACOSTA ANEU, MDW, CBC, GFR, LIP #### [address] [address] Platelet 362 10 3/mcL Normal 130-400 [facility] ([place] Comment on above: Performed By: #### C SCOTT DACOSTA ANEU, MDW, CBC, GFR, LIP #### [address] [address] Platelet mean volume (Bld) [Entitic vol] 8.1 fL Normal 7.4-10.4 [facility] ([place] Comment on above: Performed By: #### C SCOTT DACOSTA ANEU, MDW, CBC, GFR, LIP #### [address] [address] RBC 4.59 10 6/mcL Normal 4.20-5.40 [facility] ([place] Comment on above: Performed By: #### C SCOTT DACOSTA ANEU, MDW, CBC, GFR, LIP #### [address] [address] WBC 9.2 10 3/mcL Normal 4.6-10.8 [facility] ([place] Comment on above: Performed By: #### C SCOTT DACOSTA ANEU, MDW, CBC, GFR, LIP #### [address] [address] CMPon 11-19-2023 Albumin Level 4.1 G/dL Normal 3.5-5.0 [facility] ([place] Comment on above: Performed By: #### C SCOTT DACOSTA ANEU, MDW, CBC, GFR, LIP #### [address] [address] Albumin/Globulin [Mass ratio] 1.5 {ratio} Normal 1.1-2.5 [facility] ([place] Comment on above: Performed By: #### C SCOTT DACOSTA ANEU, MDW, CBC, GFR, LIP #### [address] [address] ALP [Catalytic activity/Vol] 102 U/L Normal 40-135 [facility] ([place] Comment on above: Performed By: #### C SCOTT DACOSTA ANEU, MDW, CBC, GFR, LIP #### [address] [address] ALT [Catalytic activity/Vol] 33 U/L Normal 14-59 [facility] ([place] Comment on above: Performed By: #### C SCOTT DACOSTA ANEU, MDW, CBC, GFR, LIP #### [address] [address] AST [Catalytic activity/Vol] 17 U/L Normal 10-40 [facility] ([place] Comment on above: Performed By: #### C SCOTT DACOSTA ANEU, MDW, CBC, GFR, LIP #### [address] [address] Bili Total 0.5 mg/dL Normal 0.2-1.0 [facility] ([place] Comment on above: Result Comment: Use of this assay is not recommended for patients undergoing treatment with eltrombopag due to the potential for falsely elevated results. Performed By: #### C SCOTT DACOSTA ANEU, MDW, CBC, GFR, LIP #### [address] [address] BUN/Creatinine Ratio 10 ratio Normal 7-27 [facility] ([place]) Comment on above: Performed By: #### C SCOTT DACOSTA ANEU, MDW, CBC, GFR, LIP #### [address] [address] Calcium [Mass/Vol] 9.4 mg/dL Normal 8.4-10.2 [facility] ([place] Comment on above: Performed By: #### C SCOTT DACOSTA ANEU, MDW, CBC, GFR, LIP #### [address] [address] Chloride [Moles/Vol] 103 mmol/L Normal 98-107 [facility] ([place] Comment on above: Performed By: #### C SCOTT DACOSTA ANEU, MDW, CBC, GFR, LIP #### [address] [address] CO2 [Moles/Vol] 26 mmol/L Normal 22-29 [facility] ([place] Comment on above: Performed By: #### C SCOTT DACOSTA ANEU, MDW, CBC, GFR, LIP #### [address] [address] Creatinine [Mass/Vol] 1.12 mg/dL High 0.55-1.02 [facility] ([place] Comment on above: Performed By: #### C SCOTT DACOSTA ANEU, MDW, CBC, GFR, LIP #### [address] [address] Electrolyte Balance 10.0 mEq/L Normal 4.0-15.0 [facility] ([place] Comment on above: Performed By: #### C SCOTT DACOSTA ANEU, MDW, CBC, GFR, LIP #### [address] [address] Globulin 2.8 G/dL Normal [facility] ([place] Comment on above: Performed By: #### C SCOTT DACOSTA ANEU, MDW, CBC, GFR, LIP #### [address] [address] Glucose [Mass/Vol] 88 mg/dL Normal 70-105 [facility] ([place] Comment on above: Performed By: #### C SCOTT DACOSTA ANEU, MDW, CBC, GFR, LIP #### [address] [address] Potassium [Moles/Vol] 3.5 mmol/L Normal 3.5-5.1 [facility] ([place] Comment on above: Performed By: #### C SCOTT DACOSTA ANEU, MDW, CBC, GFR, LIP #### [address] [address] Sodium [Moles/Vol] 139 mmol/L Normal 136-145 [facility] ([place] Comment on above: Performed By: #### C SCOTT DACOSTA ANEU, MDW, CBC, GFR, LIP #### [address] [address] Total Protein 6.9 G/dL Normal 6.4-8.2 [facility] ([place] Comment on above: Performed By: #### C SCOTT DACOSTA ANEU, MDW, CBC, GFR, LIP #### [address] [address] Urea nitrogen [Mass/Vol] 11 mg/dL Normal 7-18 [facility] ([place] Comment on above: Performed By: #### C SCOTT DACOSTA ANEU, MDW, CBC, GFR, LIP #### [address] [address] LABORATORYOrdered By: SYSTEM SYSTEM on 11-19-2023 Albumin [...] 11-19-2023 Lipase Level 36 U/L Normal 16-77 [facility] ([place] Comment on above: Performed By: #### C SCOTT DACOSTA, TRACY, MDW, CBC, GFR, LIP #### [address] [address] UAon 11-19-2023 Color (U) Yellow Normal [facility] ([place] Comment on above: Performed By: #### U AMICAO, UA #### [place] [address] [place], [place] [address] Glucose (U) [Mass/Vol] Negative Normal Negative [facility] ([place] Comment on above: Performed By: #### U AMICAO, UA #### [address] [address] Ketones Ql (U) Negative Normal Negative [facility] ([place] Comment on above: Performed By: #### U AMICAO, UA #### [address] [address] UA Appear Clear Normal Clear [facility] ([place] Comment on above: Performed By: #### U AMICAO, UA #### Keyshawn [address] [address] UA Blood Negative Normal Negative [facility] ([place] Comment on above: Performed By: #### U AMICAO, UA #### Keysha[place] [address] UA Leuk Est Moderate Abnormal Negative [facility] ([place] Comment on above: Performed By: #### U AMICAO, UA #### [place] [address] UA Nitrite Negative Normal Negative [facility] ([place] Comment on above: Performed By: #### U AMICAO, UA #### [place] [address] UA pH 6.0 Normal 5.0 - 8.0 [facility] ([place] Comment on above: Performed By: #### U AMICAO, UA #### [place] [address] UA Protein Negative Normal Negative [facility] ([place] Comment on above: Performed By: #### U AMICAO, UA #### [address] [address] UA Spec Grav >=1.030 Abnormal 1.015-1.025 [facility] ([place] Comment on above: Performed By: #### U AMICAO, UA #### [place] [address] UA Specimen Type Clean Catch Normal [facility] ([place] Comment on above: Performed By: #### U AMICAO, UA #### [place] [address] UA Urobilinogen 0.2 E.U./dL Normal 0.2-1.0 [facility] ([place] Comment on above: Performed By: #### U AMICAO, UA #### [place] [address] [place], [place] [address] Urobilinogen (U) [Mass/Vol] Negative Normal Negative [facility] ([place] Comment on above: Performed By: #### U SUSAN OLEARY #### [place]hawn [address] [place], [place] [address] Sheng 10-10-2023 CNPN Telephone (AGSPINE3) SANDIE BECERRIL ([id number]) 1990 F Date Time Provider Department 10/10/23 ANNA MARIE PÉREZ3 During your visit today, we recorded the [...] Date Reviewed: 08/29/2023 Reviewed by: Nette Brown, RN - Fully Assessed Reason for Visit: No [...] Status:Closed by DANIS LOBATO on 10/10/23 Normal [facility] XR ANKLE MINIMUM 3 VIEWS LEF [...] 09/24/2023 9:23:59 PM Ordering Provider: [facility] ([place] CNNURSEon 08-29-2023 CNNURSE Nurse Visit (OBGYWM) BECERRILSANDIE Yves ([id number]) 1990 F Date Time Provider Department 08/29/23 4:00 PM NURSE BUCK PRESSER [facility] WSTR OBGYWM During your visit today, we recorded the following information about you: Blood pressure Weight 114/76 92.1 kg Nette Brown RN 08/29/2023 3:45 PM Signed Patient identified by name and date of . Sandie Yves ChiBecerril is here for a Depo Provera injection. Patient brought medication. Date last injected: 06/06/23 Depo-Provera, 150 mg, administered IM right upper quadrant gluteus, Lot # [id number], expiration date 04/05/2025. Depo-Provera was given without [...] daily. - Condoms Latex Lubricated (CONDOMS-NATALIE LUBRICATED) Mis Chanda [...] for Encounter Date Provider Department Center 08/29/2023 [id number] BUCK PRESSER [facility] *OBKINZAWM Benji Stoner Encounter Status:Closed by NETTE BROWN on 08/29/23 Normal [facility] CNOVon 07-13-2023 CNOV Office Visit (SPAGWO ) SANDIE BECERRIL ([id number]) 1990 F Date Time Provider Department 07/13/23 8:00 AM ANNA MARIE PÉREZ During your visit [...] The patient is nervous/anxious. 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 No suspicious activity was identified. AG SPINE COMBINATION 06/29/2023 07/13/2023 Questionnaire GREENLIGHT GREENLIGHT Completed Date 06/29/2023 07/13/2023 Questionnaire Opiod Risk Tool Opiod Risk Tool Completed (more content not included)... Normal [facility] CNOVon 06-29-2023 CNOV Office Visit (SPAGWO ) ROBERTSANDIE ([id number]) 1990 F Date Time Provider Department 06/29/23 9:00 AM ANNA MARIE ÉPREZ During your visit today, we recorded the following information about you: Pulse Respiration 86/minute 14/minute Anna Marie Pérez APRN.CNP 06/29/2023 9:38 AM Signed [facility] Today's Date: 06/28/2023 Name: Sandie Becerril [...] patient is nervous/anxious. Referring Provider: LIS FREEDMAN [[id number]] Allergies As of Date: 06/29/2023 Noted Allergy [...] in joint, multiple sites [M25.50] Order(s):CONSULT TO PAIN MGT [[id number]] Order #: [id number]: 1 Prescriptions as of 06/29/2023 - amoxicillin [...] Status:Closed by ANNA MARIE PÉREZ on 06/29/23 [facility] SANDIE BECERRIL ([id number]) 1990 F Date Time Provider Department 06/25/23 [facility] During your visit today, we recorded the [...] [facility]. Patient was started on Macrobid and [...] skin products Date Reviewed: 06/25/2023 Reviewed by: Usha Munoz LPN - Fully Assessed Reason for [...] Encounter Status:Closed by USHA MUNOZ on 06/25/23 Normal [facility] THEA BY IFA SCREENon 06-19-19 24 Nuclear Ab Ql (S) Negative Negative [facility] CCP ANTIBODY IGGon 4 Cyclic citrullinated peptide IgG Qn <20 Units [facility] Cyclic citrullinated peptide IgG Qnon 06-19-2023 CCP Antibody IgG Qualitative Negative Negative [facility] DNA ANTIBODY DS BLDon 2023 DNA Antibody 13 IU/mL <=200 IU/mL [facility] DNA Antibody Qualitative Interpretation Negative Negative [facility] RHEUMATOID FACTOR BLon 06-19 Rheumatoid factor Qn 16 [IU]/mL High <16 IU/mL [facility] [employer]IVER ANTIBODY BLOODon 024 Ribonucleoprotein extractable nuclear Ab Qn (S) 0.4 AI <1.0 AI [facility] Ribonucleoprotein extractabl e nuclear Ab Qn (S)on 06-19-2023 [employer] Antibody QUAL Negative Negative [facility] SJOGREN ABS SSA/SSBon 2023 Sjogrens syndrome-A extractable nuclear Ab Qn (S) <1.0 AI [facility] Sjogrens syndrome-B extractable nuclear Ab Qn (S) <1.0 AI [facility] SSA Antibody Qual Negative Negative [facility] SSB Antibody Qual Negative Negative [facility] JUNE IGG ABon 06-19-2023 June extractable nuclear IgG Qn (S) <1.0 AI [facility] June extractable nuclear Ig G Qn (S)on 06-19-2023 SM Antibody Qual Negative Negative [facility] 25(OH)D3 SerPl-mCncon 2023 25-hydroxyvitamin D3 [Mass/Vol] 25.4 ng/mL Low >=30.0 [facility] Comment on above: Order Comment: Speci men Type: BLOOD SPECIMEN Ordering Facility: [facility] Address: [address] [place] [address] Result Comment: Clas sification of 25 [place] Vitamin D status: Deficiency: <= 20.0 ng/ml. Insufficiency: 21.0-29.0 ng/ml. Sufficiency: >= 30.0 ng/ml. Performed By: #### X SSAB, 96795-5, 10090-8 #### [facility] CLIA [id number] [address] [place] [address] [place] THEA BY IFA SCREENon 06-18-19 24 Nuclear Ab Ql (S) Negative Normal Negative [facility] Comment on above: Order Comment: Speci men Type: BLOOD SPECIMEN Ordering Facility: [facility] Address: [address] [place] [address] Result Comment: Anti -nuclear antibody test is used as an aid in diagnosis of systemic autoimmune diseases. Where positive and clinically warranted, follow-up using disease-specific testing is recommended. Low positive titers are not uncommon with advanced age, certain chronic infections, and malignancies among others. Test methodology: Indirect fluorescence immunoassay (IFA) using HEp-2 cells. Performed By: #### X SSAB, 74595-4, 72207-3 #### [facility] CLIA [id number] [address] [place] [address] [place] CBC W Auto Differential pane l (Bld)on 06-18-2023 Basophils (Bld) [#/Vol] 0.07 10*3/uL <0.11 k/uL [facility] Basophils/100 WBC (Bld) 1.2 % [facility] Differential cell count method Nom (Bld) Auto [facility] Eosinophils (Bld) [#/Vol] 0.09 10*3/uL <0.46 k/uL [facility] Eosinophils/100 WBC (Bld) 1.5 % [facility] Erythrocyte distribution width (RBC) [Ratio] 12.6 % 11.5 - 15.0 % [facility] Hematocrit (Bld) [Volume fraction] 43.5 % 36.0 - 46.0 % [facility] Hemoglobin (Bld) [Mass/Vol] 14.9 g/dL 11.5 - 15.5 g/dL [facility] Immature granulocytes (Bld) [#/Vol] <0.10 k/uL [facility] Immature granulocytes/100 WBC (Bld) 0.3 % [facility] Lymphocytes (Bld) [#/Vol] 1.54 10*3/uL 1.00 - 4.00 k/uL [facility] Lymphocytes/100 WBC (Bld) 25.7 % [facility] MCH (RBC) [Entitic mass] 31.0 pg 26.0 - 34.0 pg [facility] MCHC (RBC) [Mass/Vol] 34.3 g/dL 30.5 - 36.0 g/dL [facility] MCV (RBC) [Entitic vol] 90.4 fL 80.0 - 100.0 fL [facility] Monocytes (Bld) [#/Vol] 0.43 10*3/uL <0.87 k/uL [facility] Monocytes/100 WBC (Bld) 7.2 % [facility] Neutrophils (Bld) [#/Vol] 3.85 10*3/uL 1.45 - 7.50 k/uL [facility] Neutrophils/100 WBC (Bld) 64.1 % [facility] Nucleated RBC (Bld) [#/Vol] <0.01 k/uL [facility] Nucleated RBC/100 WBC (Bld) [Ratio] 0.0 /100 WBC [facility] Platelet mean volume (Bld) [Entitic vol] 10.3 fL 9.0 - 12.7 fL [facility] Platelets (Bld) [#/Vol] 386 10*3/uL 150 - 400 k/uL [facility] RBC (Bld) [#/Vol] 4.81 10*6/uL 3.90 - 5.2 0 m/uL [facility] WBC (Bld) [#/Vol] 6.00 10*3/uL 3.70 - 11. 00 k/uL [facility] Basophils (Bld) [#/Vol] 0.07 10*3/uL Normal <0.11 [facility] Comment on above: Order Comment: Speci men Type: BLOOD SPECIMEN Ordering Facility: [facility] Address: [address] [place] [address] Performed By: #### 5 7021-8 #### [facility] CLIA [id number] [address] [place] Basophils/100 WBC (Bld) 1.2 % Normal [facility] Comment on above: Order Comment: Speci men Type: BLOOD SPECIMEN Ordering Facility: [facility] Address: [address] [place] [address] Performed By: #### 5 7021-8 #### [facility] CLIA [id number] [address] [place] Differential cell count method Nom (Bld) Auto Normal [facility] Comment on above: Order Comment: Speci men Type: BLOOD SPECIMEN Ordering Facility: [facility] Address: [address] [place] [address] Performed By: #### 5 7021-8 #### [facility] CLIA [id number] [address] [place] Eosinophils (Bld) [#/Vol] 0.09 10*3/uL Normal <0.46 [facility] Comment on above: Order Comment: Speci men Type: BLOOD SPECIMEN Ordering Facility: [facility] Address: [address] [place] [address] Performed By: #### 5 7021-8 #### [facility] CLIA [id number] [address] [place] Eosinophils/100 WBC (Bld) 1.5 % Normal [facility] Comment on above: Order Comment: Speci men Type: BLOOD SPECIMEN Ordering Facility: [facility] Address: [address] [place] [address] Performed By: #### 5 7021-8 #### [facility] CLIA [id number] [address] [place] Erythrocyte distribution width (RBC) [Ratio] 12.6 % Normal 11.5-15.0 [facility] Comment on above: Order Comment: Speci men Type: BLOOD SPECIMEN Ordering Facility: [facility] Address: [address] [place] [address] Performed By: #### 5 7021-8 #### [facility] CLIA [id number] [address] [place] Hematocrit (Bld) [Volume fraction] 43.5 % Normal 36.0-46.0 [facility] Comment on above: Order Comment: Speci men Type: BLOOD SPECIMEN Ordering Facility: [facility] Address: [address] [place] [address] Performed By: #### 5 7021-8 #### [facility] CLIA [id number] [address] [place] Hemoglobin (Bld) [Mass/Vol] 14.9 g/dL Normal 11.5-15.5 [facility] Comment on above: Order Comment: Speci men Type: BLOOD SPECIMEN Ordering Facility: [facility] Address: [address] [place] [address] Performed By: #### 5 7021-8 #### [facility] CLIA [id number] [address] Immature granulocytes (Bld) [#/Vol] 10*3/uL Normal <0.10 [facility] Comment on above: Order Comment: Speci men Type: BLOOD SPECIMEN Ordering Facility: [facility] Address: [address] [place] [address] Performed By: #### 5 7021-8 #### [facility] CLIA [id number] [address] Immature granulocytes/100 WBC (Bld) 0.3 % Normal [facility] Comment on above: Order Comment: Speci men Type: BLOOD SPECIMEN Ordering Facility: [facility] Address: [address] [place] [address] Performed By: #### 5 7021-8 #### [facility] CLIA [id number] [address] [place] Lymphocytes (Bld) [#/Vol] 1.54 10*3/uL Normal 1.00-4.00 [facility] Comment on above: Order Comment: Speci men Type: BLOOD SPECIMEN Ordering Facility: [facility] Address: [address] [place] [address] Performed By: #### 5 7021-8 #### [facility] CLIA [id number] [address] Lymphocytes/100 WBC (Bld) 25.7 % Normal [facility] Comment on above: Order Comment: Speci men Type: BLOOD SPECIMEN Ordering Facility: [facility] Address: [address] [place] [address] Performed By: #### 5 7021-8 #### [facility] CLIA [id number] [address] MCH (RBC) [Entitic mass] 31.0 pg Normal 26.0-34.0 [facility] Comment on above: Order Comment: Speci men Type: BLOOD SPECIMEN Ordering Facility: [facility] Address: [address] [place] [address] Performed By: #### 5 7021-8 #### [facility] CLIA [id number] [address] [place] MCHC (RBC) [Mass/Vol] 34.3 g/dL Normal 30.5-36.0 [facility] Comment on above: Order Comment: Speci men Type: BLOOD SPECIMEN Ordering Facility: [facility] Address: [address] [place] [address] Performed By: #### 5 7021-8 #### [facility] CLIA [id number] [address] [place] MCV (RBC) [Entitic vol] 90.4 fL Normal 80.0-100.0 [facility] Comment on above: Order Comment: Speci men Type: BLOOD SPECIMEN Ordering Facility: [facility] Address: [address] [place] [address] Performed By: #### 5 7021-8 #### [facility] CLIA [id number] [address] [place] Monocytes (Bld) [#/Vol] 0.43 10*3/uL Normal <0.87 [facility] Comment on above: Order Comment: Speci men Type: BLOOD SPECIMEN Ordering Facility: [facility] Address: [address] [place] [address] Performed By: #### 5 7021-8 #### [facility] CLIA [id number] [address] Monocytes/100 WBC (Bld) 7.2 % Normal [facility] Comment on above: Order Comment: Speci men Type: BLOOD SPECIMEN Ordering Facility: [facility] Address: [address] [place] [address] Performed By: #### 5 7021-8 #### [facility] CLIA [id number] [address] [place] Neutrophils (Bld) [#/Vol] 3.85 10*3/uL Normal 1.45-7.50 [facility] Comment on above: Order Comment: Speci men Type: BLOOD SPECIMEN Ordering Facility: [facility] Address: [address] [place] [address] Performed By: #### 5 7021-8 #### [facility] CLIA [id number] [address] [place] Neutrophils/100 WBC (Bld) 64.1 % Normal [facility] Comment on above: Order Comment: Speci men Type: BLOOD SPECIMEN Ordering Facility: [facility] Address: [address] [place] [address] Performed By: #### 5 7021-8 #### [facility] CLIA [id number] [address] [place] Nucleated RBC (Bld) [#/Vol] 10*3/uL Normal <0.01 [facility] Comment on above: Order Comment: Speci men Type: BLOOD SPECIMEN Ordering Facility: [facility] Address: [address] [place] [address] Performed By: #### 5 7021-8 #### [facility] CLIA [id number] [address] [place] Nucleated RBC/100 WBC (Bld) [Ratio] 0.0 /100 WBC Normal [facility] Comment on above: Order Comment: Speci men Type: BLOOD SPECIMEN Ordering Facility: [facility] Address: [address] [place] [address] Performed By: #### 5 7021-8 #### [facility] CLIA [id number] [address] [place] [address] [place] Platelet mean volume (Bld) [Entitic vol] 10.3 fL Normal 9.0-12.7 [facility] Comment on above: Order Comment: Speci men Type: BLOOD SPECIMEN Ordering Facility: [facility] Address: [address] [place] [address] Performed By: #### 5 7021-8 #### [facility] CLIA [id number] [address] [place] [address] [place] Platelets (Bld) [#/Vol] 386 10*3/uL Normal 150-400 [facility] Comment on above: Order Comment: Speci men Type: BLOOD SPECIMEN Ordering Facility: [facility] Address: [address] [place] [address] Performed By: #### 5 7021-8 #### [facility] CLIA [id number] [address] [place] [facility] RBC (Bld) [#/Vol] 4.81 10*6/uL Normal 3.90-5.20 [facility] Comment on above: Order Comment: Humera aguila Type: BLOOD SPECIMEN Ordering Facility: [facility] Address: [address] [place] [address] Performed By: #### 5 7021-8 #### [facility] CLIA [id number] [address] [place] [facility] WBC (Bld) [#/Vol] 6.00 10*3/uL Normal 3.70-11.00 [facility] Comment on above: Order Comment: Humera aguila Type: BLOOD SPECIMEN Ordering Facility: [facility] Address: [address] [place] [address] Performed By: #### 5 7021-8 #### [facility] CLIA [id number] [address] CNOVon 06-18-2023 CNOV Office Visit (RHBATH ) SANDIE BECERRIL ([id number]) 1990 F Date Time Provider Department 06/18/23 10:20 AM LIS FREEDMAN RHBATH During your visit today, we recorded the [...] cancer'. Juanis (more content not included)... Normal [facility] Sheng 06-18-2023 NIMESH Telephone ([employer]) SANDIE BECERRIL ([id number]) 1990 F Date Time Provider Department 06/18/23 LIS FREEDMAN MICHEL During your visit today, we recorded the following information about you: Aimee Terrazas 06/18/2023 1:40 PM Signed Internal referral Pain Mgt Conf @[id number] Aimee Nikhiljessica Allergies As of Date: 06/18/2023 Noted Allergy [...] Status:Closed by AIMEE TERRAZAS on 06/18/23 Normal [facility] Comprehensive metabolic 2000 panelon 06-18-2023 Albumin [Mass/Vol] 4.7 g/dL 3.9 - 4.9 g/dL [facility] ALP [Catalytic activity/Vol] 76 U/L 34 - 123 U/L [facility] ALT With P-5'-P [Catalytic activity/Vol] 38 U/L 7 - 38 U/L [facility] Anion gap [Moles/Vol] 11 mmol/L 9 - 18 mmol/L [facility] AST With P-5'-P [Catalytic activity/Vol] 27 U/L 13 - 35 U/L [facility] Bilirubin [Mass/Vol] 0.7 mg/dL 0.2 - 1 .3 mg/dL [facility] Calcium [Mass/Vol] 9.9 mg/dL 8.5 - 10. 2 mg/dL [facility] Chloride [Moles/Vol] 107 mmol/L High 97 - 10 5 mmol/L [facility] CO2 [Moles/Vol] 24 mmol/L 22 - 30 mmol/L [facility] Creatinine [Mass/Vol] 1.06 mg/dL High 0.58 - 0.96 mg/dL [facility] Estimated Glomerular Filtration Rate 72 mL/min/1.73m >=60 mL/min/1.73m [facility] Glucose [Mass/Vol] 87 mg/dL 74 - 99 mg/dL [facility] Potassium [Moles/Vol] 4.2 mmol/L 3.7 - 5.1 mmol/L [facility] Protein [Mass/Vol] 7.8 g/dL 6.3 - 8.0 g/dL [facility] Sodium [Moles/Vol] 142 mmol/L 136 - 144 mmol/L [facility] Urea nitrogen [Mass/Vol] 14 mg/dL 7 - 21 mg/dL [facility] Albumin [Mass/Vol] 4.7 g/dL Normal 3.9-4.9 [facility] Comment on above: Order Comment: Speci men Type: BLOOD SPECIMEN Ordering Facility: [facility] Address: [address] [place] [address] Performed By: #### X SSAB, 72755-7, 64809-8 #### [facility] CLIA [id number] [address] [place] [address] [place] ALP [Catalytic activity/Vol] 76 U/L Normal 34-123 [facility] Comment on above: Order Comment: Speci men Type: BLOOD SPECIMEN Ordering Facility: [facility] Address: [address] [place] [address] Performed By: #### X SSAB, 21261-8, 40711-1 #### [facility] CLIA [id number] [address] [place] [address] [place] ALT With P-5'-P [Catalytic activity/Vol] 38 U/L Normal 7-38 [facility] Comment on above: Order Comment: Speci men Type: BLOOD SPECIMEN Ordering Facility: [facility] Address: [address] [place] [address] Performed By: #### X SSAB, 80032-8, 06933-5 #### [facility] CLIA [id number] [address] [place] [address] [place] Anion gap [Moles/Vol] 11 mmol/L Normal 9-18 [facility] Comment on above: Order Comment: Speci men Type: BLOOD SPECIMEN Ordering Facility: [facility] Address: [address] [place] [address] Performed By: #### X SSAB, 36627-5, 45111-8 #### [facility] CLIA [id number] [address] [place] [address] [place] AST With P-5'-P [Catalytic activity/Vol] 27 U/L Normal 13-35 [facility] Comment on above: Order Comment: Speci men Type: BLOOD SPECIMEN Ordering Facility: [facility] Address: [address] [place] [address] Performed By: #### X SSAB, 29187-6, 23192-5 #### [facility] CLIA [id number] [address] [place] [address] [place] Bilirubin [Mass/Vol] 0.7 mg/dL Normal 0.2-1.3 [facility] Comment on above: Order Comment: Speci men Type: BLOOD SPECIMEN Ordering Facility: [facility] Address: [address] [place] [address] Performed By: #### X SSAB, 90886-5, 47766-0 #### [facility] CLIA [id number] [address] [place] [address] [place] Calcium [Mass/Vol] 9.9 mg/dL Normal 8.5-10.2 [facility] Comment on above: Order Comment: Speci men Type: BLOOD SPECIMEN Ordering Facility: [facility] Address: [address] [place] [address] Performed By: #### X SSAB, 20966-7, 99313-4 #### [facility] CLIA [id number] [address] [place] [address] [place] Chloride [Moles/Vol] 107 mmol/L High 97-105 [facility] Comment on above: Order Comment: Speci men Type: BLOOD SPECIMEN Ordering Facility: [facility] Address: [address] [place] [address] Performed By: #### X SSAB, 50954-5, 21720-7 #### [facility] CLIA [id number] [address] [place] [address] [place] CO2 [Moles/Vol] 24 mmol/L Normal 22-30 [facility] Comment on above: Order Comment: Humera aguila Type: BLOOD SPECIMEN Ordering Facility: [facility] Address: [address] [place] [address] Performed By: #### X SSAB, 57489-1, 48153-5 #### [facility] CLIA [id number] [address] [place] [address] [place] Creatinine [Mass/Vol] 1.06 mg/dL High 0.58-0.96 [facility] Comment on above: Order Comment: Humera aguila Type: BLOOD SPECIMEN Ordering Facility: [facility] Address: [address] [place] [address] Performed By: #### X SSAB, 08181-0, 16363-0 #### [facility] CLIA [id number] [address] [place] [address] [place] Creatinine and Glomerular filtration rate.predicted panel (S/P/Bld) 72 mL/min/1.73m??? Normal >=60 [facility] Comment on above: Order Comment: Humera aguila Type: BLOOD SPECIMEN Ordering Facility: [facility] Address: [address] [place] [address] Result Comment: Xiomara mated Glomerular Filtration Rate [...] actual GFR. Performed By: #### X SSAB, 01363-0, 73881-4 #### [facility] CLIA [id number] [address] [place] [address] [place] Glucose [Mass/Vol] 87 mg/dL Normal 74-99 [facility] Comment on above: Order Comment: Humera aguila Type: BLOOD SPECIMEN Ordering Facility: [facility] Address: [address] [place] [address] Result Comment: The [place] [employer] (ADA) provides guidance for cutoff [...] Standards of Medical Care in Diabetes 2016, [place] [employer]. Diabetes Care. 2016.39(Suppl 1). Performed By: #### X SSAFlavia, 37464-3, 42133-4 #### [facility] CLIA [id number] [address] [place] [address] [place] Potassium [Moles/Vol] 4.2 mmol/L Normal 3.7-5.1 [place] [facility] Comment on above: Order Comment: Speci men Type: BLOOD SPECIMEN Ordering Facility: [facility] Address: [address] [place] [address] Performed By: #### X SSAFlavia, 65132-6, #### [facility] CLIA [id number] [address] [place] [address] [place] Protein [Mass/Vol] 7.8 g/dL Normal 6.3-8.0 [facility] Comment on above: Order Comment: Speci men Type: BLOOD SPECIMEN Ordering Facility: [facility] Address: [address] [place] [address] Performed By: #### X SSAB, 29092-3, #### [facility] CLIA [id number] [address] [place] [address] [place] Sodium [Moles/Vol] 142 mmol/L Normal 136-144 [facility] Comment on above: Order Comment: Speci men Type: BLOOD SPECIMEN Ordering Facility: [facility] Address: [address] [place] [address] Performed By: #### X SSAB, 54353-4, 93545-0 #### [facility] CLIA [id number] [address] [place] [address] [place] Urea nitrogen [Mass/Vol] 14 mg/dL Normal 7-21 [facility] Comment on above: Order Comment: Speci men Type: BLOOD SPECIMEN Ordering Facility: [facility] Address: [address] [place] [address] Performed By: #### X SSAB, 59429-1, 93380-6 #### [facility] CLIA [id number] [address] [place] [address] [place] Creatinine Unsp time (U) [Ma ss/Vol]on 06-18-2023 Creatinine (U) [Mass/Vol] 107.7 mg/dL 42.2 - 237.9 mg/dL [facility] Creatinine (U) [Mass/Vol] 107.7 mg/dL Normal 42.2-237.9 [facility] Comment on above: Order Comment: Speci men Type: URINE SPECIMEN Ordering Facility: [facility] Address: [address] [place] [address] Performed By: #### 3 5674-1, 2888-6 #### [facility] CLIA [id number] [address] [place] [address] [place] Cyclic citrullinated peptide IgG Qnon 06-18-2023 CCP ANTIBODY IGG QUALITATIVE Negative Normal Negative [facility] Comment on above: Order Comment: Speci men Type: BLOOD SPECIMEN Ordering Facility: [facility] Address: [address] [place] [address] Performed By: #### X SSAB, 36649-0, 34351-3 #### [facility] CLIA [id number] [address] [place] [address] [place] DNA ANTIBODY DS BLDon 2023 DNA ANTIBODY 13 IU/mL Normal <=200 [facility] Comment on above: Order Comment: Speci men Type: BLOOD SPECIMEN Ordering Facility: [facility] Address: [address] [place] [address] Result Comment: Nega tive: <200 IU/mL Equivocal: 201-300 IU/mL Moderate Positive: 301-800 IU/mL Strong Positive: >801 IU/mL Performed By: #### X SSAB, 38008-3, 34923-5 #### [facility] CLIA [id number] [address] [place] [address] [place] DNA ANTIBODY QUALITATIVE INTERPRETATION Negative Normal Negative [facility] Comment on above: Order Comment: Speci men Type: BLOOD SPECIMEN Ordering Facility: [facility] Address: [address] [place] [address] Performed By: #### X SSAB, 60140-4, 31430-8 #### [facility] CLIA [id number] [address] [place] [address] [place] PAT HIRE CAR DRIVER Ab Ser-aCncon 2023 Ribonucleoprotein extractable nuclear Ab Qn (S) 0.4 AI Normal <1.0 [facility] Comment on above: Order Comment: Speci men Type: BLOOD SPECIMEN Ordering Facility: [facility] Address: [address] [place] [address] Performed By: #### X SSAB, 73402-2, 00262-2 #### [facility] CLIA [id number] [address] [place] [address] [place] PAT SM IgG Ser-aCncon 2023 June extractable nuclear IgG Qn (S) <0.2 Normal <1.0 [facility] Comment on above: Order Comment: Speci men Type: BLOOD SPECIMEN Ordering Facility: [facility] Address: [address] [place] [address] Performed By: #### X SSAB, 60324-7, 68687-4 #### [facility] CLIA [id number] [address] [place] [address] [place] No Panel Informationon 06-18 [facility] PROTEIN RANDOM URon 06-18-19 24 Protein (U) [Mass/Vol] 7 mg/dL 0 - 20 mg/dL [facility] Prot Ur-mCncon 06-18-2023 Protein (U) [Mass/Vol] 7 mg/dL Normal 0-20 [facility] Comment on above: Order Comment: Speci men Type: URINE SPECIMEN Ordering Facility: [facility] Address: [address] [place] [address] Performed By: #### 3 5674-1, 2888-6 #### [facility] CLIA [id number] [address] [place] [address] [place] Rheumatoid fact SerPl-aCncon 06-18-2023 Rheumatoid factor Qn 16 [IU]/mL High <16 [facility] Comment on above: Order Comment: Speci men Type: BLOOD SPECIMEN Ordering Facility: [facility] Address: [address] [place] [address] Performed By: #### 1 1572-5 #### [facility] CLIA [id number] [address] [place] [address] [place] Ribonucleoprotein extractabl e nuclear Ab Qn (S)on 06-18-2023 ANTI-HIRE CAR DRIVER QUAL Negative Normal Negative [facility] Comment on above: Order Comment: Speci men Type: BLOOD SPECIMEN Ordering Facility: [facility] Address: [address] [place] [address] Performed By: #### X SSAB, 43717-6, 00674-3 #### [facility] CLIA [id number] [address] [place] [address] [place] SJOGREN ABS SSA/SSBon 2023 ANTI-SSB QUAL Negative Normal Negative [facility] Comment on above: Order Comment: Speci men Type: BLOOD SPECIMEN Ordering Facility: [facility] Address: [address] [place] [address] Result Comment: Anti -SSB (anti-La) antibody is used as an aid in diagnosis of a variety of systemic autoimmune diseases, especially for Sjogren's syndrome and systemic lupus erythematosus. Clinical correlation is required. Test Methodology: Multiplex flow immunoassay. Performed By: #### X SSAB, 86032-2, 92081-1 #### [facility] CLIA [id number] [address] [place] [address] [place] Sjogrens syndrome-A extractable nuclear Ab Qn (S) <0.2 Normal <1.0 [facility] Comment on above: Order Comment: Speci men Type: BLOOD SPECIMEN Ordering Facility: [facility] Address: [address] [place] [address] Performed By: #### X SSAB, 66114-1, 27136-1 #### [facility] CLIA [id number] [address] [place] [address] [place] Sjogrens syndrome-B extractable nuclear Ab Qn (S) <0.2 Normal <1.0 [facility] Comment on above: Order Comment: Speci men Type: BLOOD SPECIMEN Ordering Facility: [facility] Address: [address] [place] [address] Performed By: #### X SSAB, 39773-1, #### [facility] CLIA [id number] [address] [place] [address] [place] SSA ANTIBODY QUAL Negative Normal Negative [facility] Comment on above: Order Comment: Speci men Type: BLOOD SPECIMEN Ordering Facility: [facility] Address: [address] [place] [address] Result Comment: Anti -SSA (anti-Ro) antibody is used as an aid in diagnosis of a variety of systemic autoimmune diseases, Sjogren's syndrome among others. Clinical correlation is required. Test Methodology: Multiplex flow immunoassay. ??? \X09\ Performed By: #### X SSAB, 72919-9, 54449-6 #### [facility] CLIA [id number] [address] [place] [address] [place] June extractable nuclear Ig G Qn (S)on 06-18-2023 SM ANTIBODY QUAL Negative Normal Negative [facility] Comment on above: Order Comment: Speci men Type: BLOOD SPECIMEN Ordering Facility: [facility] Address: [address] [place] [address] Result Comment: Anti -Sm (June) antibody is used as an aid in diagnosis of systemic lupus erythematosus and its presence is associated with renal disease. A negative result cannot rule out systemic lupus erythematosus. Clinical correlation is required. Test Methodology: Multiplex flow immunoassay. Performed By: #### X SSAB, 33078-8, 78373-2 #### [facility] CLIA [id number] [address] [place] [address] [place] Urinalysis complete panel (U )on 06-18-2023 Bilirubin Ql (U) Negative Negative [facility] Clarity (Unsp spec) Turbid Abnormal Clear [facility] Color (U) Light Yellow yellow [facility] Epithelial cells LM.HPF (Urine sed) [#/Area] Few [facility] Glucose Test strip (U) [Mass/Vol] Negative Trace, Negative [facility] Hemoglobin Ql (U) Trace Negative, Trace [facility] Ketones Ql (U) Negative Negative, Trace [facility] Leukocyte esterase Test strip Ql (U) 500 Anika/uL Abnormal Negative, 25 Anika/uL [facility] Nitrite Ql (U) Negative Negative [facility] pH (U) 5.5 [pH] 5.0 - 8.0 [facility] Protein (U) [Mass/Vol] Negative Trace , Negative [facility] RBC LM.HPF (Urine sed) [#/Area] /[HPF] Abnormal 0-3 /HPF [facility] Specific gravity (U) [Rel density] 1.017 1.005 - 1.030 [facility] Urobilinogen Ql (U) Normal Normal [facility] WBC LM.HPF (Urine sed) [#/Area] /[HPF] Abnormal 0-5 /HPF [facility] Bilirubin Ql (U) Negative Normal Negative [facility] Comment on above: Order Comment: Speci men Type: URINE SPECIMEN Ordering Facility: [facility] Address: [address] [place] [address] Performed By: #### 3 5674-1, 8-6 #### [facility] CLIA [id number] [address] Clarity (Unsp spec) Turbid Abnormal Clear [facility] Comment on above: Order Comment: Speci men Type: URINE SPECIMEN Ordering Facility: [facility] Address: [address] [place] [address] Performed By: #### 3 5674-1, 2887-6 #### [facility] CLIA [id number] [address] Color (U) Light Yellow Normal yellow [facility] Comment on above: Order Comment: Speci men Type: URINE SPECIMEN Ordering Facility: [facility] Address: [facility] [place] [address] Performed By: #### 3 5674-1, 2887-6 #### [facility] CLIA [id number] [address] Epithelial cells LM.HPF (Urine sed) [#/Area] Few Normal [facility] Comment on above: Order Comment: Speci men Type: URINE SPECIMEN Ordering Facility: [facility] Address: [facility] [place] [address] Performed By: #### 3 5674-1, 2887-6 #### [facility] CLIA [id number] [address] Glucose Test strip (U) [Mass/Vol] Negative Normal Trace, Negative [facility] Comment on above: Order Comment: Speci men Type: URINE SPECIMEN Ordering Facility: [facility] Address: [address] [place] [address] Performed By: #### 3 5674-1, 8-6 #### [facility] CLIA [id number] [address] Hemoglobin Ql (U) Trace Normal Negative, Trace [facility] Comment on above: Order Comment: Speci men Type: URINE SPECIMEN Ordering Facility: [facility] Address: [address] [place] [address] Performed By: #### 3 5674-1, 2887-6 #### [facility] CLIA [id number] [address] Ketones Ql (U) Negative Normal Negative, Trace [facility] Comment on above: Order Comment: Speci men Type: URINE SPECIMEN Ordering Facility: [facility] Address: [address] [place] [address] Performed By: #### 3 5674-1, 6 #### [facility] CLIA [id number] [address] Leukocyte esterase Test strip Ql (U) 500 Anika/uL Abnormal Negative, 25 Anika/uL [facility] Comment on above: Order Comment: Speci men Type: URINE SPECIMEN Ordering Facility: [facility] Address: [address] [place] [address] Performed By: #### 3 5674-1, 2887-10 #### [facility] CLIA [id number] [address] Nitrite Ql (U) Negative Normal Negative [facility] Comment on above: Order Comment: Speci men Type: URINE SPECIMEN Ordering Facility: [facility] Address: [address] [place] [address] Performed By: #### 3 5674-1, 6 #### [facility] CLIA [id number] [address] OF [place] pH (U) 5.5 [pH] Normal 5.0-8.0 [facility] Comment on above: Order Comment: Speci men Type: URINE SPECIMEN Ordering Facility: [facility] Address: [address] [place] [address] Performed By: #### 3 5674-1, 2887-6 #### [facility] CLIA [id number] [address] Protein (U) [Mass/Vol] Negative Normal Trace , Negative [facility] Comment on above: Order Comment: Speci men Type: URINE SPECIMEN Ordering Facility: [facility] Address: [address] [place] [address] Performed By: #### 3 5674-1, 2887-6 #### [facility] CLIA [id number] [address] RBC LM.HPF (Urine sed) [#/Area] /[HPF] Abnormal 0-3 /HPF [facility] Comment on above: Order Comment: Speci men Type: URINE SPECIMEN Ordering Facility: [facility] Address: [address] [place] [address] Performed By: #### 3 5674-1, 6 #### [facility] CLIA [id number] [address] [place] Specific gravity (U) [Rel density] 1.017 Normal 1.005-1.030 [facility] Comment on above: Order Comment: Speci men Type: URINE SPECIMEN Ordering Facility: [facility] Address: [address] [place] [address] Performed By: #### 3 5674-1, 6 #### [facility] CLIA [id number] [address] Urobilinogen Ql (U) Normal Normal Normal [facility] Comment on above: Order Comment: Speci men Type: URINE SPECIMEN Ordering Facility: [facility] Address: [address] [place] [address] Performed By: #### 3 5674-1, 6 #### [facility] CLIA [id number] [address] WBC LM.HPF (Urine sed) [#/Area] /[HPF] Abnormal 0-5 /HPF [facility] Comment on above: Order Comment: Speci men Type: URINE SPECIMEN Ordering Facility: [facility] Address: [address] [place] [address] Performed By: #### 3 5674-1, 2887-6 #### [facility] CLIA [id number] [address] Urinalysis complete pnl Uron 06-18-2023 Urinalysis [...] -<50,000 CFU/ml Normal urogenital josé miguel Normal [facility] Comment on above: Order Comment: Speci men Type: URINE SPECIMEN Ordering Facility: [facility] Address: [address] [place] [address] Performed By: #### 3 5674-1, 2888-6 #### [facility] CLIA [id number] [address] [place] [address] [place] VITAMIN D 25 HYDROXYon 06-18 25-hydroxyvitamin D3 [Mass/Vol] 25.4 ng/mL Low >=30.0 ng/mL [facility] XR HAND 3V PA/LAT/OBL LTon 0 06-18-2023 [...] or focal abnormality throughout the regions evaluated. Distance Learning Administrator: MONSERRAT Transcribe Date/Time: Jun 18 2023 12:45P Dictated by : MAURISIO ROBLES MD This examination was interpreted and the report reviewed and electronically signed by: MAURISIO ROBLES MD on Jun 18 2023 12:53PM EST [id number] Normal [facility] XR HAND 3V PA/LAT/OBL RTon 0 [...] or focal abnormality throughout the regions evaluated. Distance Learning Administrator: MONSERRAT Transcribe Date/Time: Jun 18 2023 12:45P Dictated by : MAURISIO ROBLES MD This examination was interpreted and the report reviewed and electronically signed by: MAURISIO ROBLES MD on Jun 18 2023 12:53PM EST [id number] Normal [facility] XR HIP ANGELES 5V PEL+ AP/LAT [...] or focal abnormality throughout the regions evaluated. Distance Learning Administrator: [facility] Transcribe Date/Time: Jun 18 2023 12:45P Dictated by : MAURISIO ROBLES MD This examination was interpreted and the report reviewed and electronically signed by: MAURISIO ROBLES MD on Jun 18 2023 12:53PM EST [id number] Normal [facility] XR KNEE SURVEY 1V AP BILon [...] or focal abnormality throughout the regions evaluated. Distance Learning Administrator: PSCB Transcribe Date/Time: Jun 18 2023 12:45P Dictated by : MAURISIO ROBLES MD This examination was interpreted and the report reviewed and electronically signed by: MAURISIO ROBLES MD on Jun 18 2023 12:53PM EST [id number] Normal [facility] XR LUMBAR 3V AP/LAT/L5-S1on 06-18-2023 XR [...] or focal abnormality throughout the regions evaluated. Distance Learning Administrator: MONSERRAT Transcribe Date/Time: Jun 18 2023 12:45P Dictated by : MAURISIO ROBLES MD This examination was interpreted and the report reviewed and electronically signed by: MAURISIO ROBLES MD on Jun 18 2023 12:53PM EST [id number] Normal [facility] XR SI JTS 2V AP PELV/FERGUSO [...] or focal abnormality throughout the regions evaluated. Distance Learning Administrator: MONSERRAT Transcribe Date/Time: Jun 18 2023 12:45P Dictated by : MAURISIO ROBLES MD This examination was interpreted and the report reviewed and electronically signed by: MAURISIO ROBLES MD on Jun 18 2023 12:53PM EST [id number] Normal [facility] cCP IgG SerPl-aCncon 024 Cyclic citrullinated peptide IgG Qn <15 Normal <20 [facility] Comment on above: Order Comment: Speci men Type: BLOOD SPECIMEN Ordering Facility: [facility] Address: [address] [place] [address] Performed By: #### X SSAB, 06556-0, 47036-9 #### [facility] CLIA [id number] [address] [place] [address] CNPNon 06-11-2023 CNPN Telephone (YASMINEWFlako) SANDIE BECERRIL ([id number]) 1990 F Date Time Provider Department 06/11/23 [...] to the office tomorrow. ERICKA Mas Amy, PIPE FITTER.FOOD MIXER ASSEMBLER 06/13/2023 6:53 AM Signed Please reassure her that a change in bleeding pattern is not unusual with Depo-Provera and should resolve on its own. If it does not, she can let us know. Angelina Bartlett APRN.FOOD MIXER ASSEMBLER Nette Brown RN 06/13/2023 9:06 AM Signed Left message [...] Fully Assessed Reason for Visit: Patient Question [7507] Prescriptions as of 06/13/2023 - amoxicillin (AMOXIL) [...] daily. - Condoms Latex Lubricated (CONDOMS-NATALIE LUBRICATED) [facility] Chanda Use one condom before and during [...] Encounter Status:Closed by CLAUDIA WOODALL on 06/13/23 [facility] CNNURSEon 06-06-2023 CNNURSE Nurse Visit (OBGYWM) SANDIE BECERRIL ([id number]) 1990 F Date Time Provider Department 06/06/23 2:00 PM NURSE BUCK PRESSER [facility] WSTR OBGYWM During your visit today, we recorded the following information about you: Blood pressure Weight 128/70 91.2 kg Nette Brown RN 06/06/2023 4:03 PM Signed Patient identified by name and date of . Sandie Becerril is here for a Depo Provera injection. Patient brought medication. Date last injected: 03/15/23 Depo-Provera, 150 mg, administered IM left upper quadrant gluteus, Lot # [id number], expiration date 10/04/2024. Depo-Provera was given without [...] daily. - Condoms Latex Lubricated (CONDOMS-NATALIE LUBRICATED) Mis Chanda [...] for Encounter Date Provider Department Center 06/06/2023 [id number] BUCK PRESSER [facility] *MELINA Benji Stoner Encounter Status:Closed by NETTE BROWN on 06/06/23 Normal [facility] CNOVon 05-30-2023 CNOV Office Visit (UCWSTR ) SANDIE BECERRIL ([id number]) 1990 F Date Time Provider Department 05/30/23 12:15 PM VERNON CALVIN [facility] During your visit today, we recorded the following information about you: Temperature Pulse Respiration Blood pressure 99 degrees 100/minute 20/minute 124/80 Weight 90.8 kg Vernon Calvin APRN.FOOD MIXER ASSEMBLER 05/30/2023 1:03 PM Signed Subjective HPI Nontoxic-appearing [...] No respirat (more content not included)... Normal [facility] XR KNEE 4V AP/PA BOTH+LAT/ME R LTon [...] radiographic abnormalities seen in the left knee. Distance Learning Administrator: PSCB Transcribe Date/Time: May 30 2023 12:52P Dictated by : YUKI BEACH MD This examination was interpreted and the report reviewed and electronically signed by: YUKI BEACH MD on May 30 2023 12:55PM EST [id number] Normal [facility] XR Knee - left 4 Viewson IMPRESSION: No acute radiographic abnormalities seen in the left knee. Distance Learning Administrator: MONSERRAT Transcribe Date/Time: May 30 2023 12:52P Dictated by : YUKI BAECH MD This examination was interpreted and the [...] soft tissue swelling. DIVISION OF RADIOLOGY Provider, [facility] - 05/30/2023 * * *Final Report* * [...] radiographic abnormalities seen in the left knee. Distance Learning Administrator: PSCB Transcribe Date/Time: May 30 2023 12:52P Dictated by : YUKI BEACH MD This examination was interpreted and the report reviewed and electronically signed by: YUKI BEACH MD on May 30 2023 12:55PM EST [facility] Radiology Study observation (narrative) [facility] XR Knee - left 4 ViewsOrdere d By: Ccf Provider on 05-30-2023 [facility] CNNURSEon 03-15-2023 CNNURSE Nurse Visit (OBGYWM) SANDIE BECERRIL ([id number]) 1990 F Date Time Provider Department 03/15/23 4:00 PM NURSE BUCK PRESSER [facility] WSTR OBGYWM During your visit today, we recorded the following information about you: Blood pressure Weight 128/78 89.4 kg Claudia Woodall RN 03/15/2023 4:13 PM Signed Patient identified by name and date of . Sandie Becerril is here for a Depo Provera injection. Patient brought medication. Date last injected: overdue-negative test Depo-Provera, 150 mg, administered IM right upper quadrant gluteus, Lot # [id number], expiration date 02/03/2027. Depo-Provera was given without [...] for management and injection of depo-Provera [Z30.42] Order(s):[facility] [facility] B/O [[id number]] Order #: [id number] Prescriptions as of 03/15/2023 - amLODIPine (NORVASC) [...] daily. - Condoms Latex Lubricated (CONDOMS-NATALIE LUBRICATED) [facility] [place] [place] Use one condom before and during [...] for Encounter Date Provider Department Center 03/15/2023 [id number] BUCK PRESSER [facility] *OBGYWM Benji Herbie Encounter Status:Closed by CLAUDIA WOODALL RN on 03/15/23 Normal [facility] HCG QUAL UR B/Oon 03-15-2023 status Negative neg - pos [facility] Quality Check Yes [facility] US ELASTOGRAPHY LIVERon 08-0 [facility] HCG QUAL UR B/Oon 09-05-2022 status Negative neg - pos [facility] Quality Check Yes [facility] Absolute lymphocyte countOrd ered By: ED PROVIDER on 08-14-2022 Lymphocytes Auto (Unsp spec) [#/Vol] 1.54 10*3/uL 0.83-4.51 [facility] Basophil percentageOrdered B y: ED PROVIDER on 08-14-2022 Basophils/100 WBC (Bld) 1.1 % 0-1 [facility] Chloride [Moles/Vol] 112 mmol/L 98-107 [facility] Eosinophils/100 WBC (Bld) 1.4 % 0-5 [facility] Glucose [Mass/Vol] 97 mg/dL 74-106 [facility] Neutrophils (Bld) [#/Vol] 4.7 10*3/uL 2.0-7.7 [facility] Neutrophils/100 WBC (Bld) 66.8 % 47-70 [facility] Potassium [Moles/Vol] 3.3 mmol/L 3.5-5.1 [facility] Sodium [Moles/Vol] 140 mmol/L 136-145 [facility] WBC (Bld) [#/Vol] 7.0 10*3/uL 4.4-11.0 [facility] Blood erythrocytes count (nu mber/volume)Ordered By: ED PROVIDER on 08-14-2022 RBC (Bld) [#/Vol] 4.36 10*6/uL 4.2-5.4 [facility] Blood hemoglobin measurement (mass/volume)Ordered By: ED PROVIDER on 08-14-2022 Hemoglobin (Bld) [Mass/Vol] 13.4 g/dL 12.0-15.0 [facility] Blood lymphocytes/100 leukoc ytesOrdered By: ED PROVIDER on 08-14-2022 Lymphocytes/100 WBC (Bld) 22.1 % 19-41 [facility] Blood monocytes/100 leukocyt esOrdered By: ED PROVIDER on 08-14-2022 Monocytes/100 WBC (Bld) 8.3 % 0-10 [facility] Blood platelet mean volumeOr dered By: ED PROVIDER on 08-14-2022 Platelet mean volume (Bld) [Entitic vol] 9.7 fL 6.2-12.0 [facility] Determination of erythrocyte mean corpuscular volume (MCV)Ordered By: ED PROVIDER on 08-14-2022 MCV (RBC) [Entitic vol] 92.4 fL 81-99 [facility] Hematocrit Auto (Bld) [Volum e fraction]Ordered By: ED PROVIDER on 08-14-2022 Hematocrit (Bld) [Volume fraction] 40.3 % 37-47 [facility] INR in Blood by Coagulation assayOrdered By: ED PROVIDER on 08-14-2022 INR Coag (Bld) [Relative time] 0.9 {INR} [facility] Laboratory - Chemistry and C hemistry - challengeOrdered By: ED PROVIDER on 08-14-2022 CO2 [Moles/Vol] 27.0 mmol/L 21.0-32.0 [facility] Urea nitrogen/Creatinine [Mass ratio] 9.7 mg/mg 10-20 [facility] Laboratory - CoagulationOrde red By: ED PROVIDER on 08-14-2022 aPTT Coag (Bld) [Time] 22.6 s 24.1-36.2 [facility] PT Coag (PPP) [Time] 12.3 s 11.7-14.9 [facility] Laboratory - Hematology and Cell countsOrdered By: ED PROVIDER on 08-14-2022 Erythrocyte distribution width (RBC) [Entitic vol] 43.8 fL 35.1-43.9 [facility] Erythrocyte distribution width (RBC) [Ratio] 13.1 % 11.6-14.6 [facility] Immature granulocytes/100 WBC (Bld) 0.300 % 0.0-0.9 [facility] Comment on above: IG% - Immature Granu locytes (promyelocytes, myelocytes and metamyelocytes) > 1% indicates that a LEFT SHIFT is Present. MCH (RBC) [Entitic mass] 30.7 pg 27.0-32.0 [facility] Nucleated RBC/100 WBC (Bld) [Ratio] 0 % 0-5 [facility] MCHC Auto (RBC) [Mass/Vol]Or dered By: ED PROVIDER on 08-14-2022 MCHC (RBC) [Mass/Vol] 33.3 g/dL 32-36 [facility] No Panel InformationOrdered By: ED PROVIDER on 08-14-2022 Estimated Creatinine Clearance Calc 70.15 ml/min [facility] Estimated GFR (MDRD) Amer 72 mL/min >60 [facility] Comment on above: GFR Calc Estimated GFR (MDRD) Non-Af Amer 59 mL/min >60 [facility] Comment on above: Non- GFR Calc Platelets bldOrdered By: ED PROVIDER on 08-14-2022 Platelets (Bld) [#/Vol] 301 10*3/uL 150-450 [facility] Serum or plasma calcium althea urement (mass/volume)Ordered By: ED PROVIDER on 08-14-2022 Calcium [Mass/Vol] 8.7 mg/dL 8.5-10.1 [facility] Serum or plasma creatinine m easurement (mass/volume)Ordered By: ED PROVIDER on 08-14-2022 Creatinine [Mass/Vol] 1.13 mg/dL 0.55-1.02 [facility] Comment on above: The validity of the calculated GFR & GFRAA in patients over 70 years has not been determined. Clinical correlation is essential. Serum or plasma urea nitroge n measurement (mass/volume)Ordered By: ED PROVIDER on 08-14-2022 Urea nitrogen [Mass/Vol] 11 mg/dL 7-18 [facility] Thin prep Papanicolaou smear with manual screeningOrdered By: ED PROVIDER on 08-14-2022 Thin prep Papanicolaou smear with manual screening 1 5-15 [facility] Laboratory - Drug toxicology Ordered By: Woody Encinas on 07-20-2022 Amphetamines Ql (U) Negative <1000 ng/mL [facility] Benzodiazepines Ql (U) Negative < 200 ng/mL [facility] Cannabinoids Screen Ql (U) Negative < 50 ng/mL [facility] Cocaine Ql (U) Negative < 300 ng/mL [facility] Opiates Ql (U) Negative < 300 ng/mL [facility] No Panel InformationOrdered By: Woody Encinas on 07-20-2022 MDMA (Ecstasy) Screen Positive < 500 ng/mL [facility] Urine Barbiturates Screen Negative < 200 ng/mL [facility] Urine Drug Screen Comment [facility] Comment on above: CONFIRMATORY TESTING FOR ALL [...] TESTING MUST BE ORDERED SEPARATELY. USE TESTMNEMONIC: MECA Urine Methadone Screen Negative < 300 ng/mL [facility] Urine phencyclidine (PCP) de tectionOrdered By: Woody Encinas on 07-20-2022 Phencyclidine Ql (U) Negative < 25 ng/mL [facility] Absolute lymphocyte countOrd ered By: Dr. Bingham on 06-10-2022 Lymphocytes Auto (Unsp spec) [#/Vol] 0.26 10*3/uL 0.83-4.51 [facility] Basophil percentageOrdered B y: Dr. Bingham on 06-10-2022 Basophils/100 WBC (Bld) 0.5 % 0-1 [facility] Bilirubin [Mass/Vol] 0.60 mg/dL 0.20-1.00 [facility] Comment on above: For patients on eltr ombopag therapy, use of [place] TBIL is not recommended. Chloride [Moles/Vol] 107 mmol/L 98-107 [facility] Eosinophils/100 WBC (Bld) 0.5 % 0-5 [facility] Glucose [Mass/Vol] 100 mg/dL 74-106 [facility] Comment on above: Fasting Glucose resu lt from 100 to 125 mg/dL suggests IMPAIRED HOMEOSTASIS per A.D.A. criteria. Neutrophils (Bld) [#/Vol] 5.2 10*3/uL 2.0-7.7 [facility] Neutrophils/100 WBC (Bld) 87.3 % 47-70 [facility] Potassium [Moles/Vol] 3.3 mmol/L 3.5-5.1 [facility] Protein [Mass/Vol] 8.0 g/dL 6.4-8.2 [facility] Sodium [Moles/Vol] 139 mmol/L 136-145 [facility] WBC (Bld) [#/Vol] 6.0 10*3/uL 4.4-11.0 [facility] Beta hCG serum qualOrdered B y: Dr. Bingham on 06-10-2022 Beta HCG ( test) Ql Negative [facility] Blood erythrocytes count (nu mber/volume)Ordered By: Dr. Bingham on 06-10-2022 RBC (Bld) [#/Vol] 5.19 10*6/uL 4.2-5.4 [facility] Blood hemoglobin measurement (mass/volume)Ordered By: Dr. Bingham on 06-10-2022 Hemoglobin (Bld) [Mass/Vol] 16.1 g/dL 12.0-15.0 [facility] Blood lymphocytes/100 leukoc ytesOrdered By: Dr. Bingham on 06-10-2022 Lymphocytes/100 WBC (Bld) 4.3 % 19-41 [facility] Blood manual differential co mment interpretation (narrative result)Ordered By: Dr. Bingham on 06-10-2022 Manual differential comment Devin (Bld) [Interp] SEE COMMENT [facility] Comment on above: LYMPHOPENIA NOTED Blood monocytes/100 leukocyt esOrdered By: Dr. Bingham on 06-10-2022 Monocytes/100 WBC (Bld) 7.2 % 0-10 [facility] Blood platelet adequacy dete ction by light microscopyOrdered By: Dr. Bingham on 06-10-2022 Platelets LM Ql (Bld) ADEQUATE ADEQ [facility] Blood platelet mean volumeOr dered By: Dr. Bingham on 06-10-2022 Platelet mean volume (Bld) [Entitic vol] 9.6 fL 6.2-12.0 [facility] Determination of erythrocyte mean corpuscular volume (MCV)Ordered By: Dr. Bingham on 06-10-2022 MCV (RBC) [Entitic vol] 89.8 fL 81-99 [facility] Hematocrit Auto (Bld) [Volum e fraction]Ordered By: Dr. Bingham on 06-10-2022 Hematocrit (Bld) [Volume fraction] 46.6 % 37-47 [facility] Laboratory - Chemistry and C hemistry - challengeOrdered By: Dr. Bingham on 06-10-2022 ALP [Catalytic activity/Vol] 80 U/L 45-117 [facility] ALT [Catalytic activity/Vol] 93 U/L 13-56 [facility] CO2 [Moles/Vol] 24.0 mmol/L 21.0-32.0 [facility] Globulin (S) [Mass/Vol] 3.8 g/dL 2.2-4.2 [facility] Urea nitrogen/Creatinine [Mass ratio] 18.3 mg/mg 10-20 [facility] Laboratory - Hematology and Cell countsOrdered By: Dr. Bingham on 06-10-2022 Anisocytosis Ql (Bld) RARE [facility] Erythrocyte distribution width (RBC) [Entitic vol] 41.6 fL 35.1-43.9 [facility] Erythrocyte distribution width (RBC) [Ratio] 12.5 % 11.6-14.6 [facility] Immature granulocytes/100 WBC (Bld) 0.200 % 0.0-0.9 [facility] Comment on above: IG% - Immature Granu locytes (promyelocytes, myelocytes and metamyelocytes) > 1% indicates that a LEFT SHIFT is Present. MCH (RBC) [Entitic mass] 31.0 pg 27.0-32.0 [facility] Nucleated RBC/100 WBC (Bld) [Ratio] 0 % 0-5 [facility] MCHC Auto (RBC) [Mass/Vol]Or dered By: Dr. Bingham on 06-10-2022 MCHC (RBC) [Mass/Vol] 34.5 g/dL 32-36 [facility] Macrocytes detectionOrdered By: Dr. Bingham on 06-10-2022 Macrocytes Ql (Bld) RARE [facility] No Panel InformationOrdered By: Dr. Bingham on 06-10-2022 Estimated Creatinine Clearance Calc 76.22 ml/min [facility] Estimated GFR (MDRD) Amer 79 mL/min >60 [facility] Comment on above: GFR Calc Estimated GFR (MDRD) Non-Af Amer 65 mL/min >60 [facility] Comment on above: Non- GFR Calc Platelets bldOrdered By: Dr. Bingham on 06-10-2022 Platelets (Bld) [#/Vol] 270 10*3/uL 150-450 [facility] RBC morphologyOrdered By: Dr Crystal Bingham on 06-10-2022 RBC morphology finding Nom (Bld) N CHROM NORMAL NORM C&C [facility] Serum or plasma albumin althea urement (mass/volume)Ordered By: Dr. Bingham on 06-10-2022 Albumin [Mass/Vol] 4.2 g/dL 3.2-5.0 [facility] Serum or plasma albumin/glob ulin mass ratioOrdered By: Dr. Bingham on 06-10-2022 Albumin/Globulin [Mass ratio] 1.1 {ratio} 0.9-2.4 [facility] Serum or plasma calcium althea urement (mass/volume)Ordered By: Dr. Bingham on 06-10-2022 Calcium [Mass/Vol] 9.2 mg/dL 8.5-10.1 [facility] Serum or plasma creatinine m easurement (mass/volume)Ordered By: Dr. Bingham on 06-10-2022 Creatinine [Mass/Vol] 1.04 mg/dL 0.55-1.02 [facility] Comment on above: The validity of the calculated GFR & GFRAA in patients over 70 years has not been determined. Clinical correlation is essential. Serum or plasma urea nitroge n measurement (mass/volume)Ordered By: Dr. Bingham on 06-10-2022 Urea nitrogen [Mass/Vol] 19 mg/dL 7-18 [facility] Thin prep Papanicolaou smear with manual screeningOrdered By: Dr. Bingham on 06-10-2022 Thin prep Papanicolaou smear with manual screening 66 U/L 15-37 [facility] Thin prep Papanicolaou smear with manual screening 8 5-15 [facility] HCG QUAL UR B/Oon 05-24-2022 status Negative neg - pos [facility] Quality Check Yes [facility] No Panel Informationon 05-09 POC SARS CoV-2 Antigen Negative [facility] Throat Streptococcus pyogene s antigen detection by immunofluorescenceOrdered By: Dr. Molina on 05-08-2022 S. pyogenes Ag IF Ql (Throat) [facility] Laboratory - Microbiology an d Antimicrobial susceptibilityon 04-07-2022 SARS-CoV-2 (COVID-19) RNA [place]+probe Ql (Unsp spec) Not detected [facility] No Panel Informationon 04-07 Influenza Types A,B Rapid (Clinic) Detected [facility] Culture, urineOrdered By: Dr Crystal Shea on 03-23-2022 Bacteria identified Cx Nom (U) Positive [facility] Bacteria identified Cx Nom (U) Yeast Like Organism [facility] Basophil percentageOrdered B y: ED PROVIDER on 03-20-2022 Basophil percentage 5-10 SEEN /hpf 0-5 [facility] Bilirubin Test strip Ql (U)O rdered By: ED PROVIDER on 03-20-2022 Bilirubin Ql (U) 6 mg/dL Negative [facility] Comment on above: COLOR OF URINE MAY A FFECT DIPSTICK RESULTS. Ketones Test strip Ql (U)Ord ered By: ED PROVIDER on 03-20-2022 Ketones Ql (U) 5 mg/dl Negative [facility] Laboratory - Chemistry and C hemistry - challengeOrdered By: ED PROVIDER on 03-20-2022 HCG ( test) Ql (U) Negative [facility] Comment on above: Very dilute urine sp ecimens, as indicated by a low specificgravity, may not contain accounting representative levels of hCG. If is still suspected, a first morning urinespecimen should be collected 48 hours later and tested. Mucus LM Ql (Urine sed)Order ed By: ED PROVIDER on 03-20-2022 Mucus Ql (Urine sed) 0 SEEN /hpf [facility] Nitrite Test strip Ql (U)Ord ered By: ED PROVIDER on 03-20-2022 Nitrite Ql (U) Positive Negative [facility] Protein Test strip Ql (U)Ord ered By: ED PROVIDER on 03-20-2022 Protein Ql (U) 15 mg/dl Negative [facility] Squamous epithelial cells de tection in urine sediment by light microscopyOrdered By: ED PROVIDER on 03-20-2022 Epithelial cells.squamous LM Ql (Urine sed) 0-5 SEEN /hpf 5-10 [facility] Urine blood detectionOrdered By: ED PROVIDER on 03-20-2022 RBC Ql (U) 10 /ul Negative [facility] RBC Ql (U) 0-5 SEEN /hpf 0-5 [facility] Urine clarityOrdered By: ED PROVIDER on 03-20-2022 Clarity (U) Sl. Cloudy Clear [facility] Urine color determinationOrd ered By: ED PROVIDER on 03-20-2022 Color (U) Angela Yellow [facility] Urine glucose detectionOrder ed By: ED PROVIDER on 03-20-2022 Glucose Ql (U) Normal mg/dl Normal [facility] Urine leukocyte esterase det ection by dipstickOrdered By: ED PROVIDER on 03-20-2022 Leukocyte esterase Test strip Ql (U) 500 /ul Negative [facility] Urine pHOrdered By: ED PROVI KRIS on 03-20-2022 pH (U) 6.5 [pH] 5.0 - 8.0 [facility] Urine sediment bacteria coun t by microscopy (number/high power field)Ordered By: ED PROVIDER on 03-20-2022 Bacteria LM.HPF (Urine sed) [#/Area] 1 /[HPF] None Seen [facility] Urine specific gravity measu rementOrdered By: ED PROVIDER on 03-20-2022 Specific gravity (U) [Rel density] 1.020 1.002-1.030 [facility] Urobilinogen Auto test strip Ql (U)Ordered By: ED PROVIDER on 03-20-2022 Urobilinogen Ql (U) 8 mg/dl Normal [facility] Absolute lymphocyte countOrd ered By: Molly Reyes on 03-17-2022 Lymphocytes Auto (Unsp spec) [#/Vol] 1.38 10*3/uL 0.83-4.51 [facility] Basophil percentageOrdered B y: Molly Reyes on 03-17-2022 Basophil percentage 0-5 SEEN /hpf 0-5 [facility] Basophils/100 WBC (Bld) 1.2 % 0-1 [facility] Bilirubin [Mass/Vol] 0.70 mg/dL 0.20-1.00 [facility] Comment on above: For patients on eltr ombopag therapy, use of [place] TBIL is not recommended. Chloride [Moles/Vol] 105 mmol/L 98-107 [facility] Eosinophils/100 WBC (Bld) 2.3 % 0-5 [facility] Glucose [Mass/Vol] 91 mg/dL 74-106 [facility] Neutrophils (Bld) [#/Vol] 3.6 10*3/uL 2.0-7.7 [facility] Neutrophils/100 WBC (Bld) 63.3 % 47-70 [facility] Potassium [Moles/Vol] 5.0 mmol/L 3.5-5.1 [facility] Comment on above: Moderate Hemolysis, Result may be falsely increased. Protein [Mass/Vol] 7.5 g/dL 6.4-8.2 [facility] Sodium [Moles/Vol] 137 mmol/L 136-145 [facility] WBC (Bld) [#/Vol] 5.7 10*3/uL 4.4-11.0 [facility] Beta hCG serum qualOrdered B y: Molly Reyes on 03-17-2022 Beta HCG ( test) Ql Negative [facility] Bilirubin Test strip Ql (U)O rdered By: Molly Reyes on 03-17-2022 Bilirubin Ql (U) Negative Negative [facility] Blood erythrocytes count (nu mber/volume)Ordered By: Molly Reyes on 03-17-2022 RBC (Bld) [#/Vol] 4.74 10*6/uL 4.2-5.4 [facility] Blood hemoglobin measurement (mass/volume)Ordered By: Molly Reyes on 03-17-2022 Hemoglobin (Bld) [Mass/Vol] 14.6 g/dL 12.0-15.0 [facility] Blood lymphocytes/100 leukoc ytesOrdered By: Molly Reyes on 03-17-2022 Lymphocytes/100 WBC (Bld) 24.1 % 19-41 [facility] Blood monocytes/100 leukocyt esOrdered By: Molly Reyes on 03-17-2022 Monocytes/100 WBC (Bld) 9.1 % 0-10 [facility] Blood platelet mean volumeOr dered By: Molly Reyes on 03-17-2022 Platelet mean volume (Bld) [Entitic vol] 9.5 fL 6.2-12.0 [facility] Determination of erythrocyte mean corpuscular volume (MCV)Ordered By: Molly Reyes on 03-17-2022 MCV (RBC) [Entitic vol] 93.0 fL 81-99 [facility] Hematocrit Auto (Bld) [Volum e fraction]Ordered By: Molly Reyes on 03-17-2022 Hematocrit (Bld) [Volume fraction] 44.1 % 37-47 [facility] Ketones Test strip Ql (U)Ord ered By: Molly Reyes on 03-17-2022 Ketones Ql (U) Negative Negative [facility] Laboratory - Chemistry and C hemistry - challengeOrdered By: Molly Reyes on 03-17-2022 ALP [Catalytic activity/Vol] 63 U/L 45-117 [facility] ALT [Catalytic activity/Vol] 53 U/L 13-56 [facility] CO2 [Moles/Vol] 26.0 mmol/L 21.0-32.0 [facility] Globulin (S) [Mass/Vol] 3.7 g/dL 2.2-4.2 [facility] Lipase [Catalytic activity/Vol] 86 U/L 73-393 [facility] Urea nitrogen/Creatinine [Mass ratio] 10.3 mg/mg 10-20 [facility] Laboratory - Hematology and Cell countsOrdered By: Molly Reyes on 03-17-2022 Erythrocyte distribution width (RBC) [Entitic vol] 41.1 fL 35.1-43.9 [facility] Erythrocyte distribution width (RBC) [Ratio] 11.9 % 11.6-14.6 [facility] Immature granulocytes/100 WBC (Bld) 0.000 % 0.0-0.9 [facility] Comment on above: IG% - Immature Granu locytes (promyelocytes, myelocytes and metamyelocytes) > 1% indicates that a LEFT SHIFT is Present. MCH (RBC) [Entitic mass] 30.8 pg 27.0-32.0 [facility] Nucleated RBC/100 WBC (Bld) [Ratio] 0 % 0-5 [facility] MCHC Auto (RBC) [Mass/Vol]Or dered By: Molly Reyes on 03-17-2022 MCHC (RBC) [Mass/Vol] 33.1 g/dL 32-36 [facility] Mucus LM Ql (Urine sed)Order ed By: Molly Reyes on 03-17-2022 Mucus Ql (Urine sed) 0 SEEN /hpf [facility] Nitrite Test strip Ql (U)Ord ered By: Molly Reyes on 03-17-2022 Nitrite Ql (U) Positive Negative [facility] No Panel InformationOrdered By: Molly Reyes on 03-17-2022 Estimated Creatinine Clearance Calc 74.08 ml/min [facility] Estimated GFR (MDRD) Amer 77 mL/min >60 [facility] Comment on above: GFR Calc Estimated GFR (MDRD) Non-Af Amer 63 mL/min >60 [facility] Comment on above: Non- GFR Calc Platelets bldOrdered By: Joshua Reyes on 03-17-2022 Platelets (Bld) [#/Vol] 321 10*3/uL 150-450 [facility] Protein Test strip Ql (U)Ord ered By: Molly Reyes on 03-17-2022 Protein Ql (U) 30 mg/dl Negative [facility] Serum or plasma albumin althea urement (mass/volume)Ordered By: Molly Reyes on 03-17-2022 Albumin [Mass/Vol] 3.8 g/dL 3.2-5.0 [facility] Serum or plasma albumin/glob ulin mass ratioOrdered By: Molly Reyes on 03-17-2022 Albumin/Globulin [Mass ratio] 1.0 {ratio} 0.9-2.4 [facility] Serum or plasma calcium althea urement (mass/volume)Ordered By: Molly Reyes on 03-17-2022 Calcium [Mass/Vol] 8.9 mg/dL 8.5-10.1 [facility] Serum or plasma creatinine m easurement (mass/volume)Ordered By: Molly Reyes on 03-17-2022 Creatinine [Mass/Vol] 1.07 mg/dL 0.55-1.02 [facility] Comment on above: The validity of the calculated GFR & GFRAA in patients over 70 years has not been determined. Clinical correlation is essential. Serum or plasma urea nitroge n measurement (mass/volume)Ordered By: Molly Reyes on 03-17-2022 Urea nitrogen [Mass/Vol] 11 mg/dL 7-18 [facility] Squamous epithelial cells de tection in urine sediment by light microscopyOrdered By: Molly Reyes on 03-17-2022 Epithelial cells.squamous LM Ql (Urine sed) 0-5 SEEN /hpf 5-10 [facility] Thin prep Papanicolaou smear with manual screeningOrdered By: Molly Reyes on 03-17-2022 Thin prep Papanicolaou smear with manual screening 48 U/L 15-37 [facility] Comment on above: Moderate Hemolysis, Result may be falsely increased. Thin prep Papanicolaou smear with manual screening 6 5-15 [facility] Urine blood detectionOrdered By: Molly Reyes on 03-17-2022 RBC Ql (U) Negative Negative [facility] RBC Ql (U) 0-5 SEEN /hpf 0-5 [facility] Urine clarityOrdered By: Joshua Reyes on 03-17-2022 Clarity (U) Clear Clear [facility] Urine color determinationOrd ered By: Molly Reyes on 03-17-2022 Color (U) Yellow Yellow [facility] Urine glucose detectionOrder ed By: Molly Reyes on 03-17-2022 Glucose Ql (U) Normal mg/dl Normal [facility] Urine leukocyte esterase det ection by dipstickOrdered By: Molly Reyes on 03-17-2022 Leukocyte esterase Test strip Ql (U) 500 /ul Negative [facility] Urine pHOrdered By: Darwin Reyes on 03-17-2022 pH (U) 8.0 [pH] 5.0 - 8.0 [facility] Urine sediment bacteria coun t by microscopy (number/high power field)Ordered By: Molly Reyes on 03-17-2022 Bacteria LM.HPF (Urine sed) [#/Area] 0 /[HPF] None Seen [facility] Urine specific gravity measu rementOrdered By: Molly Reyes on 03-17-2022 Specific gravity (U) [Rel density] 1.015 1.002-1.030 [facility] Urobilinogen Auto test strip Ql (U)Ordered By: Molly Reyes on 03-17-2022 Urobilinogen Ql (U) 4 mg/dl Normal [facility] Laboratory - Microbiology an d Antimicrobial susceptibilityon 02-16-2022 SARS-CoV-2 (COVID-19) RNA [place]+probe Ql (Unsp spec) Not detected [facility] [facility] No Panel Informationon 02-16 Influenza Types A,B Rapid (Clinic) Not detected [facility] Laboratory - Microbiology an d Antimicrobial susceptibilityon 09-14-2021 SARS-CoV-2 (COVID-19) RNA [place]+probe Ql (Unsp spec) Not detected [facility] Work Phone: No Panel Informationon 09-14 Influenza Types A,B Rapid (Clinic) Not detected [facility] Work Phone: Laboratory - Microbiology an d Antimicrobial susceptibilityon 09-09-2021 SARS-CoV-2 (COVID-19) RNA [place]+probe Ql (Unsp spec) Not detected [facility] Work Phone: No Panel Informationon 09-09 Influenza Types A,B Rapid (Clinic) Not detected [facility] Work Phone: Culture, urine Bacteria identified Cx Nom (U) Positive [facility] Work Phone: Bacteria identified Cx Nom (U) Yeast Like Organism [facility] Work Phone: Vital Signs Date Time Vital Sign Value Performing Clinician Facility 08-31-2024 16:19-0400 Diastolic Blood Pressure Non-Invasive 86 mm[Hg] JACOB GOFF DO [facility] 08-31-2024 16:19-0400 Heart rate 102 /min JACOB GOFF DO [facility] 08-31-2024 16:19-0400 Respiratory rate 18 /min JACOB GOFF DO [facility] 08-31-2024 16:19-0400 Systolic Blood Pressure Non-Invasive 138 mm[Hg] JACOB GOFF DO [facility] 08-31-2024 15:24-0400 Body temperature 98.6 [degF] JACOB GOFF DO [facility] 08-31-2024 15:24-0400 Diastolic Blood Pressure Non-Invasive 84 mm[Hg] JACOB GOFF DO [facility] 08-31-2024 15:24-0400 Heart rate 118 /min JACOB GOFF DO [facility] 08-31-2024 15:24-0400 Respiratory rate 18 /min JACOB GOFF DO [facility] 08-31-2024 15:24-0400 Systolic Blood Pressure Non-Invasive 143 mm[Hg] JACOB GOFF DO [facility] 08-26-2024 20:07-0400 Body height 167 cm CHI RAMIREZ DO [facility] 08-26-2024 20:07-0400 Body temperature 97.52 [degF] CHI RAMIREZ DO [facility] 08-26-2024 20:07-0400 Body weight 90.9 kg CHI RAMIREZ DO [facility] 08-26-2024 20:07-0400 Diastolic Blood Pressure Non-Invasive 74 mm[Hg] CHI RAMIREZ DO [facility] 08-26-2024 20:07-0400 Heart rate 100 /min CHI RAMIREZ DO [facility] 08-26-2024 20:07-0400 Respiratory rate 18 /min CHI RAMIREZ DO [facility] 08-26-2024 20:07-0400 Systolic Blood Pressure Non-Invasive 116 mm[Hg] CHI RAMIREZ DO [facility] 11-22-2023 13:26-0400 Body height 167.6 cm Pratima Kat MD Work Phone: [facility] 11-22-2023 13:26-0400 Body mass index (BMI) [Ratio] 31.31 kg/m2 Pratima Kat MD Work Phone: [facility] 11-22-2023 13:26-0400 Body weight 88 kg Pratima Kat MD Work Phone: [facility] 11-22-2023 13:26-0400 Diastolic blood pressure 70 mm[Hg] Pratima Kat MD Work Phone: [facility] 11-22-2023 13:26-0400 Systolic blood pressure 110 mm[Hg] Pratima Kat MD Work Phone: [facility] 11-19-2023 17:20-0400 Diastolic Blood Pressure Non-Invasive 65 mm[Hg] SAM MACIAS MD [facility] 11-19-2023 17:20-0400 Heart rate 85 /min SAM MACIAS MD [facility] 11-19-2023 17:20-0400 Respiratory rate 16 /min SAM MACIAS MD [facility] 11-19-2023 17:20-0400 Systolic Blood Pressure Non-Invasive 116 mm[Hg] SAM MACIAS MD [facility] 11-19-2023 15:37-0400 Body temperature 100.22 [degF] SAM MACIAS MD [facility] 11-19-2023 15:37-0400 Body weight 89.4 kg SAM MACIAS MD [facility] 11-19-2023 15:37-0400 Diastolic Blood Pressure Non-Invasive 80 mm[Hg] SAM MACIAS MD [facility] 11-19-2023 15:37-0400 Heart rate 118 /min SAM MACIAS MD [facility] 11-19-2023 15:37-0400 Respiratory rate 16 /min SAM MACIAS MD [facility] 11-19-2023 15:37-0400 Systolic Blood Pressure Non-Invasive 137 mm[Hg] SAM MACIAS MD [facility] 09-24-2023 18:43-0400 Blood Pressure Location SHEYLA ROSAS DO [facility] 09-24-2023 18:43-0400 Blood Pressure Method SHEYLA ROSAS DO [facility] 09-24-2023 18:43-0400 Body temperature 98.06 [degF] SHEYLA ROSAS DO [facility] 09-24-2023 18:43-0400 Diastolic Blood Pressure Non-Invasive 80 mm[Hg] SHEYLA URRUTIAT DO [facility] 09-24-2023 18:43-0400 Heart rate 123 /min SHEYLA URRUTIAT DO [facility] 09-24-2023 18:43-0400 Respiratory rate 18 /min SHEYLA ROSAS DO [facility] 09-24-2023 18:43-0400 Systolic Blood Pressure Non-Invasive 125 mm[Hg] SHEYLA ROSAS DO [facility] 08-29-2023 15:33-0400 Body mass index (BMI) [Ratio] 32.77 kg/m2 Nurse Wstr Work Phone: [facility] 08-29-2023 15:33-0400 Body weight 92.08 kg Nurse Wstr Work Phone: [facility] 08-29-2023 15:33-0400 Diastolic blood pressure 76 mm[Hg] Nurse Wstr Work Phone: [facility] 08-29-2023 15:33-0400 Systolic blood pressure 114 mm[Hg] Nurse Wstr Work Phone: [facility] 07-13-2023 08:06-0500 Heart rate 95 /min Anna Marie Prebish P[employer]TER[employer] Work Phone: [facility] 07-13-2023 08:06-0500 Respiratory rate 14 /min Anna Marie Prebish PIPE FITTER.[employer] M[employer]ER ASSEMBLER Work Phone: [facility] 07-13-2023 08:06-0500 SaO2% (BldA) [Mass fraction] 99 % Anna Marie Prebish PIPE FITTER.[employer] MIXER ASSEMBLER Work Phone: [facility] 06-29-2023 09:06-0500 Heart rate 86 /min Anna Marie Prebish PIPE FITTER.[employer] MIXER ASSEMBLER Work Phone: [facility] 06-29-2023 09:06-0500 Respiratory rate 14 /min Anna Marie Prebish PIPE FITTER.[employer] M[employer]ER ASSEMBLER Work Phone: [facility] 06-29-2023 09:06-0500 SaO2% (BldA) [Mass fraction] 96 % Anna Marie Prebish PIPE FITTER.[employer] M[employer]ER ASSEMBLER Work Phone: [facility] 06-18-2023 10:22-0500 Body height 167.6 cm Lis Freedman MD Work Phone: [facility] 06-18-2023 10:22-0500 Body temperature 98.4 [degF] Lis Freedman MD Work Phone: [facility] 06-18-2023 10:22-0500 Body weight 91.17 kg Lis Freedman MD Work Phone: [facility] 06-18-2023 10:22-0500 Diastolic blood pressure 67 mm[Hg] Lis Freedman MD Work Phone: [facility] 06-18-2023 10:22-0500 Heart rate 92 /min Lis Freedman MD Work Phone: [facility] 06-18-2023 10:22-0500 Respiratory rate 14 /min Lis Freedman MD Work Phone: [facility] 06-18-2023 10:22-0500 Systolic blood pressure 128 mm[Hg] Lis Freedman MD Work Phone: [facility] 03-15-2023 15:54-0500 Body weight 89.36 kg Nurse Wstr Work Phone: [facility] 03-15-2023 15:54-0500 Diastolic blood pressure 78 mm[Hg] Nurse Wstr Work Phone: [facility] 03-15-2023 15:54-0500 Systolic blood pressure 128 mm[Hg] Nurse Wstr Work Phone: [facility] 09-18-2022 18:29-0400 Body height 170 cm SAM MACIAS MD [facility] 09-18-2022 18:29-0400 Body temperature 98.78 [degF] SAM MACIAS MD [facility] 09-18-2022 18:29-0400 Body weight 82 kg SAM MACIAS MD [facility] 09-18-2022 18:29-0400 Diastolic Blood Pressure Non-Invasive 89 1 SAM MACIAS MD [facility] 09-18-2022 18:29-0400 Heart rate 76 /min SAM MACIAS MD [facility] 09-18-2022 18:29-0400 Respiratory rate 20 /min SAM MACIAS MD [facility] 09-18-2022 18:29-0400 Systolic Blood Pressure Non-Invasive 141 1 SAM MACIAS MD [facility] 09-05-2022 14:11-0400 Body weight 83.1 kg Yaquelin Georgetown PIPE FITTER.[employer] M[employer]ER ASSEMBLER Work Phone: [facility] 09-05-2022 14:11-0400 Diastolic blood pressure 80 mm[Hg] Yaquelin Georgetown PIPE FITTER.[employer] M[employer]ER ASSEMBLER Work Phone: [facility] 09-05-2022 14:11-0400 Systolic blood pressure 130 mm[Hg] Yaquelin Ty PIPE FITTER.[employer] M[employer]ER ASSEMBLER Work Phone: [facility] 08-14-2022 17:58-0400 Body height 170.[address] Rosa Kemp Work Phone: [facility] 08-14-2022 17:58-0400 Body mass index (BMI) [Ratio] 28.5 kg/m2 Dr. Rosa Kemp Work Phone: [facility] 08-14-2022 17:58-0400 Body temperature 98.4 [degF] Dr. Rosa Kemp Work Phone: [facility] 08-14-2022 17:58-0400 Body weight 82.[address] Rosa Kemp Work Phone: [facility] 08-14-2022 17:58-0400 Diastolic blood pressure 93 mm[Hg] Dr. Rosa Kemp Work Phone: [facility] 08-14-2022 17:58-0400 Heart rate 82 /min Dr. Rosa Kemp Work Phone: [facility] 08-14-2022 17:58-0400 Respiratory rate 16 /min Dr. Rosa Kemp Work Phone: [facility] 08-14-2022 17:58-0400 SaO2% (BldA) [Mass fraction] 99 % Dr. Rosa Kemp Work Phone: [facility] 08-14-2022 17:58-0400 Systolic blood pressure 140 mm[Hg] Dr. Rosa Kemp Work Phone: [facility] 07-26-2022 12:09-0400 Body temperature 98.4 [degF] Dr. Rosa Kemp Work Phone: [facility] 07-26-2022 12:09-0400 Diastolic blood pressure 92 mm[Hg] Dr. Rosa Kemp Work Phone: [facility] 07-26-2022 12:09-0400 Heart rate 89 /min Dr. Rosa Kemp Work Phone: [facility] 07-26-2022 12:09-0400 Respiratory rate 18 /min Dr. Rosa Kemp Work Phone: [facility] 07-26-2022 12:09-0400 SaO2% (BldA) [Mass fraction] 97 % Dr. Rosa Kemp Work Phone: [facility] 07-26-2022 12:09-0400 Systolic blood pressure 146 mm[Hg] Dr. Rosa Kemp Work Phone: [facility] 07-25-2022 20:55-0400 Diastolic Blood Pressure Non-Invasive 84 1 DILCIA REICHFIELD DO [facility] 07-25-2022 20:55-0400 Heart rate 77 /min DILCIA REICHFIELD DO [facility] 07-25-2022 20:55-0400 Reason For Taking VItal Signs DILCIA REICHFIELD DO [facility] 07-25-2022 20:55-0400 Respiratory rate 16 /min DILCIA REICHFIELD DO [facility] 07-25-2022 20:55-0400 Systolic Blood Pressure Non-Invasive 143 1 DILCIA REICHFIELD DO [facility] 07-25-2022 18:39-0400 Body temperature 98.78 [degF] DILCIA REICHFIELD DO [facility] 07-25-2022 18:39-0400 Diastolic Blood Pressure Non-Invasive 88 1 DILCIA REICHFIELD DO [facility] 07-25-2022 18:39-0400 Heart rate 88 /min DILCIA REICHFIELD DO [facility] 07-25-2022 18:39-0400 Respiratory rate 16 /min DILCIA REICHFIELD DO [facility] 07-25-2022 18:39-0400 Systolic Blood Pressure Non-Invasive 150 1 DILCIA MAURER DO [facility] 07-21-2022 09:15-0400 Body height 170.[address] Rosa Kemp Work Phone: [facility] 07-21-2022 09:15-0400 Body mass index (BMI) [Ratio] 28.4 kg/m2 Dr. Rosa Kemp Work Phone: [facility] 07-21-2022 09:15-0400 Body temperature 98 [degF] Dr. Rosa Kemp Work Phone: [facility] 07-21-2022 09:15-0400 Body weight 82.[address] Rosa Kemp Work Phone: [facility] 07-21-2022 09:15-0400 Diastolic blood pressure 100 mm[Hg] Dr. Rosa Kemp Work Phone: [facility] 07-21-2022 09:15-0400 Heart rate 74 /min Dr. Rosa Kemp Work Phone: [facility] 07-21-2022 09:15-0400 Respiratory rate 14 /min Dr. Rosa Kemp Work Phone: [facility] 07-21-2022 09:15-0400 SaO2% (BldA) [Mass fraction] 98 % Dr. Rosa Kemp Work Phone: [facility] 07-21-2022 09:15-0400 Systolic blood pressure 123 mm[Hg] Dr. Rosa Kemp Work Phone: [facility] 07-18-2022 16:54-0400 Body mass index (BMI) [Ratio] 27.6 kg/m2 Dr. Rosa Kemp Work Phone: [facility] 07-18-2022 16:54-0400 Body temperature 98.9 [degF] Dr. Rosa Kemp Work Phone: [facility] 07-18-2022 16:54-0400 Body weight 79.[address] Rosa Kemp Work Phone: [facility] 07-18-2022 16:54-0400 Diastolic blood pressure 80 mm[Hg] Dr. Rosa Kemp Work Phone: [facility] 07-18-2022 16:54-0400 Heart rate 71 /min Dr. Rosa Kemp Work Phone: [facility] 07-18-2022 16:54-0400 Respiratory rate 14 /min Dr. Rosa Kemp Work Phone: [facility] 07-18-2022 16:54-0400 SaO2% (BldA) [Mass fraction] 98 % Dr. Rosa Kemp Work Phone: [facility] 07-18-2022 16:54-0400 Systolic blood pressure 124 mm[Hg] Dr. Rosa Kemp Work Phone: [facility] 06-10-2022 22:19-0500 Respiratory rate 14 /min Dr. Rosa Kemp Work Phone: [facility] 06-10-2022 18:32-0500 Body height 170.[address] Rosa Kemp Work Phone: [facility] 06-10-2022 18:32-0500 Body mass index (BMI) [Ratio] 27.1 kg/m2 Dr. Rosa Kemp Work Phone: [facility] 06-10-2022 18:32-0500 Body temperature 97 [degF] Dr. Rosa Kemp Work Phone: [facility] 06-10-2022 18:32-0500 Body weight 78.[address] Rosa Kemp Work Phone: [facility] 06-10-2022 18:32-0500 Diastolic blood pressure 90 mm[Hg] Dr. Rosa Kemp Work Phone: [facility] 06-10-2022 18:32-0500 Heart rate 106 /min Dr. Rosa Kemp Work Phone: [facility] 06-10-2022 18:32-0500 SaO2% (BldA) [Mass fraction] 97 % Dr. Rosa Kemp Work Phone: [facility] 06-10-2022 18:32-0500 Systolic blood pressure 129 mm[Hg] Dr. Rosa Kemp Work Phone: [facility] 06-10-2022 02:48-0500 Blood Pressure Location SAM MACIAS MD [facility] 06-10-2022 02:48-0500 Body temperature 97.7 [degF] SAM MACIAS MD [facility] 06-10-2022 02:48-0500 Diastolic Blood Pressure Non-Invasive 67 1 SAM MACIAS MD [facility] 06-10-2022 02:48-0500 Heart rate 90 /min SAM MACIAS MD [facility] 06-10-2022 02:48-0500 Reason For Taking VItal Signs SAM MACIAS MD [facility] 06-10-2022 02:48-0500 Respiratory rate 20 /min SAM MACIAS MD [facility] 06-10-2022 02:48-0500 Systolic Blood Pressure Non-Invasive 114 1 SAM MACIAS MD [facility] 05-24-2022 11:03-0500 Body weight 79.92 kg Nurse Wstr Work Phone: [facility] 05-24-2022 11:03-0500 Diastolic blood pressure 80 mm[Hg] Nurse Wstr Work Phone: [facility] 05-24-2022 11:03-0500 Systolic blood pressure 118 mm[Hg] Nurse Wstr Work Phone: [facility] 05-18-2022 10:28-0500 Body mass index (BMI) [Ratio] 27.6 kg/m2 Dr. Rosa Kemp Work Phone: [facility] 05-18-2022 10:28-0500 Body temperature 97.8 [degF] Dr. Rosa Kemp Work Phone: [facility] 05-18-2022 10:28-0500 Body weight 79.[address] Rosa Kemp Work Phone: [facility] 05-18-2022 10:28-0500 Diastolic blood pressure 82 mm[Hg] Dr. Rosa Kemp Work Phone: [facility] 05-18-2022 10:28-0500 Heart rate 76 /min Dr. Rosa Kemp Work Phone: [facility] 05-18-2022 10:28-0500 Respiratory rate 14 /min Dr. Rosa Kemp Work Phone: [facility] 05-18-2022 10:28-0500 SaO2% (BldA) [Mass fraction] 98 % Dr. Rosa Kemp Work Phone: [facility] 05-18-2022 10:28-0500 Systolic blood pressure 120 mm[Hg] Dr. Rosa Kemp Work Phone: [facility] 05-09-2022 14:00-0500 Body temperature 98.2 [degF] Dr. Rosa Kemp Work Phone: [facility] 05-09-2022 14:00-0500 Diastolic blood pressure 82 mm[Hg] Dr. Rosa Kemp Work Phone: [facility] 05-09-2022 14:00-0500 Heart rate 90 /min Dr. Rosa Kemp Work Phone: [facility] 05-09-2022 14:00-0500 Respiratory rate 20 /min Dr. Rosa Kemp Work Phone: [facility] 05-09-2022 14:00-0500 SaO2% (BldA) [Mass fraction] 98 % Dr. Rosa Kemp Work Phone: [facility] 05-09-2022 14:00-0500 Systolic blood pressure 120 mm[Hg] Dr. Rosa Kemp Work Phone: [facility] 05-06-2022 14:16-0500 Body height 170.[address] Rosa Kemp Work Phone: [facility] Work Phone: 05-06-2022 14:16-0500 Body mass index (BMI) [Ratio] 26.5 kg/m2 Dr. Rosa Kemp Work Phone: [facility] 05-06-2022 14:16-0500 Body temperature 97.1 [degF] Dr. Rosa Kemp Work Phone: [facility] 05-06-2022 14:16-0500 Body weight 76.[address] Rosa Kemp Work Phone: [facility] 05-06-2022 14:16-0500 Diastolic blood pressure 75 mm[Hg] Dr. Rosa Kemp Work Phone: [facility] 05-06-2022 14:16-0500 Heart rate 90 /min Dr. Rosa Kemp Work Phone: [facility] 05-06-2022 14:16-0500 Respiratory rate 14 /min Dr. Rosa Kemp Work Phone: [facility] 05-06-2022 14:16-0500 SaO2% (BldA) [Mass fraction] 96 % Dr. Rosa Kemp Work Phone: [facility] 05-06-2022 14:16-0500 Systolic blood pressure 126 mm[Hg] Dr. Rosa Kemp Work Phone: [facility] 04-21-2022 11:11-0500 Body height 170.[address] Rosa Kemp Work Phone: [facility] Work Phone: 04-21-2022 11:11-0500 Body mass index (BMI) [Ratio] 25.8 kg/m2 Dr. Rosa Kemp Work Phone: [facility] 04-21-2022 11:11-0500 Body temperature 97.8 [degF] Dr. Rosa Kemp Work Phone: [facility] 04-21-2022 11:11-0500 Body weight 74.[address] Rosa Kemp Work Phone: [facility] 04-21-2022 11:11-0500 Diastolic blood pressure 62 mm[Hg] Dr. Rosa Kemp Work Phone: [facility] 04-21-2022 11:11-0500 Heart rate 90 /min Dr. Rosa Kemp Work Phone: [facility] 04-21-2022 11:11-0500 Respiratory rate 16 /min Dr. Rosa Kemp Work Phone: [facility] 04-21-2022 11:11-0500 SaO2% (BldA) [Mass fraction] 97 % Dr. Rosa Kemp Work Phone: [facility] 04-21-2022 11:11-0500 Systolic blood pressure 120 mm[Hg] Dr. Rosa Kemp Work Phone: [facility] 04-07-2022 08:27-0500 Body temperature 98.6 [degF] Dr. Rosa Kemp Work Phone: [facility] 04-07-2022 08:27-0500 Diastolic blood pressure 82 mm[Hg] Dr. Rosa Kemp Work Phone: [facility] 04-07-2022 08:27-0500 Heart rate 106 /min Dr. Rosa Kemp Work Phone: [facility] 04-07-2022 08:27-0500 Respiratory rate 16 /min Dr. Rosa Kemp Work Phone: [facility] 04-07-2022 08:27-0500 SaO2% (BldA) [Mass fraction] 97 % Dr. Rosa Kemp Work Phone: [facility] 04-07-2022 08:27-0500 Systolic blood pressure 120 mm[Hg] Dr. Rosa Kemp Work Phone: [facility] 03-21-2022 10:05-0500 Body temperature 98.3 [degF] Dr. Rosa Kemp Work Phone: [facility] 03-21-2022 10:05-0500 Body weight 75.[address] Rosa Kemp Work Phone: [facility] 03-21-2022 10:05-0500 Diastolic blood pressure 84 mm[Hg] Dr. Rosa Kemp Work Phone: [facility] 03-21-2022 10:05-0500 Heart rate 107 /min Dr. Rosa Kemp Work Phone: [facility] 03-21-2022 10:05-0500 Respiratory rate 18 /min Dr. Rosa Kemp Work Phone: [facility] 03-21-2022 10:05-0500 SaO2% (BldA) [Mass fraction] 97 % Dr. Rosa Kemp Work Phone: [facility] 03-21-2022 10:05-0500 Systolic blood pressure 130 mm[Hg] Dr. Rosa Kemp Work Phone: [facility] 03-20-2022 17:13-0500 Body height 170.[address] Rosa Kemp Work Phone: [facility] Work Phone: 03-20-2022 17:13-0500 Body mass index (BMI) [Ratio] 26.9 kg/m2 Dr. Rosa Kemp Work Phone: [facility] 03-20-2022 17:13-0500 Body temperature 98.4 [degF] Dr. Rosa Kemp Work Phone: [facility] 03-20-2022 17:13-0500 Body weight [address] Rosa Kemp Work Phone: [facility] 03-20-2022 17:13-0500 Diastolic blood pressure 65 mm[Hg] Dr. Roas Kemp Work Phone: [facility] 03-20-2022 17:13-0500 Heart rate 81 /min Dr. Rosa Kemp Work Phone: [facility] 03-20-2022 17:13-0500 Respiratory rate 16 /min Dr. Rosa Kemp Work Phone: [facility] 03-20-2022 17:13-0500 SaO2% (BldA) [Mass fraction] 96 % Dr. Rosa Kemp Work Phone: [facility] 03-20-2022 17:13-0500 Systolic blood pressure 113 mm[Hg] Dr. Rosa Kemp Work Phone: [facility] 03-17-2022 20:57-0500 Heart rate 84 /min Dr. Rosa Kemp Work Phone: [facility] 03-17-2022 20:57-0500 Respiratory rate 16 /min Dr. Rosa Kemp Work Phone: [facility] 03-17-2022 20:57-0500 SaO2% (BldA) [Mass fraction] 97 % Dr. Rosa Kemp Work Phone: [facility] 03-17-2022 16:59-0500 Body height 170.[address] Rosa Kemp Work Phone: [facility] Work Phone: 03-17-2022 16:59-0500 Body mass index (BMI) [Ratio] 25.9 kg/m2 Dr. Rosa Kemp Work Phone: [facility] 03-17-2022 16:59-0500 Body temperature 99.3 [degF] Dr. Rosa Kemp Work Phone: [facility] 03-17-2022 16:59-0500 Body weight 75.[address] Rosa Kemp Work Phone: [facility] 03-17-2022 16:59-0500 Diastolic blood pressure 56 mm[Hg] Dr. Rosa Kemp Work Phone: [facility] 03-17-2022 16:59-0500 Systolic blood pressure 117 mm[Hg] Dr. Rosa Kemp Work Phone: [facility] 03-01-2022 16:37-0400 Diastolic blood pressure 51 mm[Hg] Dr. Rosa Kemp Work Phone: [facility] 03-01-2022 16:37-0400 Heart rate 69 /min Dr. Rosa Kemp Work Phone: [facility] 03-01-2022 16:37-0400 Respiratory rate 14 /min Dr. Rosa Kemp Work Phone: [facility] 03-01-2022 16:37-0400 SaO2% (BldA) [Mass fraction] 95 % Dr. Rosa Kemp Work Phone: [facility] 03-01-2022 16:37-0400 Systolic blood pressure 122 mm[Hg] Dr. Rosa Kemp Work Phone: [facility] 03-01-2022 13:14-0400 Body height 170.[address] Rosa Kemp Work Phone: [facility] Work Phone: 03-01-2022 13:14-0400 Body mass index (BMI) [Ratio] 26.9 kg/m2 Dr. Rosa Kemp Work Phone: [facility] 03-01-2022 13:14-0400 Body temperature 98.1 [degF] Dr. Rosa Kemp Work Phone: [facility] 03-01-2022 13:14-0400 Body weight 77.[address] Rosa Kemp Work Phone: [facility] 02-16-2022 15:47-0400 Body temperature 98.7 [degF] Dr. Rosa Kemp Work Phone: [facility] 02-16-2022 15:47-0400 Diastolic blood pressure 76 mm[Hg] Dr. Rosa Kemp Work Phone: [facility] 02-16-2022 15:47-0400 Heart rate 96 /min Dr. Rosa Kemp Work Phone: [facility] 02-16-2022 15:47-0400 Respiratory rate 14 /min Dr. Rosa Kemp Work Phone: [facility] 02-16-2022 15:47-0400 SaO2% (BldA) [Mass fraction] 97 % Dr. Rosa Kemp Work Phone: [facility] 02-16-2022 15:47-0400 Systolic blood pressure 118 mm[Hg] Dr. Rosa Kemp Work Phone: [facility] 01-29-2022 15:28-0400 Body temperature 98.78 [degF] JAMES LAMB MD [facility] 01-29-2022 15:28-0400 Diastolic blood pressure 78 mm[Hg] JAMES LAMB MD [facility] 01-29-2022 15:28-0400 Heart rate 82 /min JAMES LAMB MD [facility] 01-29-2022 15:28-0400 Respiratory rate 18 /min JAMES LAMB MD [facility] 01-29-2022 15:28-0400 Systolic blood pressure 132 mm[Hg] JAMES LAMB MD [facility] 01-20-2022 15:49-0400 Body mass index (BMI) [Ratio] 25.9 kg/m2 Dr. Rosa Kemp Work Phone: [facility] Work Phone: 01-20-2022 15:49-0400 Body temperature 97.8 [degF] Dr. Rosa Kemp Work Phone: [facility] Work Phone: 01-20-2022 15:49-0400 Body weight 75.[address] Rosa Kemp Work Phone: [facility] Work Phone: 01-20-2022 15:49-0400 Diastolic blood pressure 78 mm[Hg] Dr. Rosa Kemp Work Phone: [facility] Work Phone: 01-20-2022 15:49-0400 Heart rate 90 /min Dr. Rosa Kemp Work Phone: [facility] Work Phone: 01-20-2022 15:49-0400 Respiratory rate 16 /min Dr. Rosa Kemp Work Phone: [facility] Work Phone: 01-20-2022 15:49-0400 SaO2% (BldA) [Mass fraction] 97 % Dr. Rosa Kemp Work Phone: [facility] Work Phone: 01-20-2022 15:49-0400 Systolic blood pressure 128 mm[Hg] Dr. Rosa Kemp Work Phone: [facility] Work Phone: 01-18-2022 16:21-0400 Body height 170.[address] Rosa Kemp Work Phone: [facility] Work Phone: 01-18-2022 16:21-0400 Body mass index (BMI) [Ratio] 26.3 kg/m2 Dr. Rosa Kemp Work Phone: [facility] Work Phone: 01-18-2022 16:21-0400 Body temperature 98.9 [degF] Dr. Rosa Kemp Work Phone: [facility] Work Phone: 01-18-2022 16:21-0400 Body weight 76.[address] Rosa Kemp Work Phone: [facility] Work Phone: 01-18-2022 16:21-0400 Diastolic blood pressure 60 mm[Hg] Dr. Rosa Kemp Work Phone: [facility] Work Phone: 01-18-2022 16:21-0400 Heart rate 86 /min Dr. Rosa Kemp Work Phone: [facility] Work Phone: 01-18-2022 16:21-0400 Respiratory rate 17 /min Dr. Rosa Kemp Work Phone: [facility] Work Phone: 01-18-2022 16:21-0400 SaO2% (BldA) [Mass fraction] 98 % Dr. Rosa Kemp Work Phone: [facility] Work Phone: 01-18-2022 16:21-0400 Systolic blood pressure 114 mm[Hg] Dr. Rosa Kemp Work Phone: [facility] Work Phone: 01-06-2022 15:50-0400 Body weight 75.75 kg Nurse Wstr Work Phone: [facility] 01-06-2022 15:50-0400 Diastolic blood pressure 68 mm[Hg] Nurse Wstr Work Phone: [facility] 01-06-2022 15:50-0400 Systolic blood pressure 110 mm[Hg] Nurse Wstr Work Phone: [facility] 12-20-2021 08:31-0400 Body height 167.[address] Rosa Kemp Work Phone: [facility] Work Phone: 12-20-2021 08:31-0400 Body mass index (BMI) [Ratio] 26.1 kg/m2 Dr. Rosa Kemp Work Phone: [facility] Work Phone: 12-20-2021 08:31-0400 Body temperature 98.2 [degF] Dr. Rosa Kemp Work Phone: [facility] Work Phone: 12-20-2021 08:31-0400 Body weight 73.[address] Rosa Kemp Work Phone: [facility] Work Phone: 12-20-2021 08:31-0400 Diastolic blood pressure 92 mm[Hg] Dr. Rosa Kemp Work Phone: [facility] Work Phone: 12-20-2021 08:31-0400 Heart rate 81 /min Dr. Rosa Kemp Work Phone: [facility] Work Phone: 12-20-2021 08:31-0400 Respiratory rate 16 /min Dr. Rosa Kemp Work Phone: [facility] Work Phone: 12-20-2021 08:31-0400 SaO2% (BldA) [Mass fraction] 97 % Dr. Rsoa Kemp Work Phone: [facility] Work Phone: 12-20-2021 08:31-0400 Systolic blood pressure 138 mm[Hg] Dr. Rosa Kemp Work Phone: [facility] Work Phone: 12-11-2021 14:49-0400 Body height 167.[address] Rosa Kemp Work Phone: [facility] Work Phone: 12-11-2021 14:49-0400 Body mass index (BMI) [Ratio] 26.9 kg/m2 Dr. Rosa Kemp Work Phone: [facility] Work Phone: 12-11-2021 14:49-0400 Body temperature 98 [degF] Dr. Rosa Kemp Work Phone: [facility] Work Phone: 12-11-2021 14:49-0400 Body weight 75.[address] Rosa Kemp Work Phone: [facility] Work Phone: 12-11-2021 14:49-0400 Diastolic blood pressure 79 mm[Hg] Dr. Rosa Kemp Work Phone: [facility] Work Phone: 12-11-2021 14:49-0400 Heart rate 94 /min Dr. Rosa Kemp Work Phone: [facility] Work Phone: 12-11-2021 14:49-0400 Respiratory rate 16 /min Dr. Rosa Kemp Work Phone: [facility] Work Phone: 12-11-2021 14:49-0400 SaO2% (BldA) [Mass fraction] 97 % Dr. Rosa Kemp Work Phone: [facility] Work Phone: 12-11-2021 14:49-0400 Systolic blood pressure 124 mm[Hg] Dr. Rosa Kemp Work Phone: [facility] Work Phone: 12-09-2021 15:52-0400 Body mass index (BMI) [Ratio] 25.2 kg/m2 Dr. Rosa Kemp Work Phone: [facility] Work Phone: 12-09-2021 15:52-0400 Body temperature 98.8 [degF] Dr. Rosa Kemp Work Phone: [facility] Work Phone: 12-09-2021 15:52-0400 Body weight 73.[address] Rosa Kemp Work Phone: [facility] Work Phone: 12-09-2021 15:52-0400 Diastolic blood pressure 74 mm[Hg] Dr. Rosa Kemp Work Phone: [facility] Work Phone: 12-09-2021 15:52-0400 Heart rate 92 /min Dr. Rosa Kemp Work Phone: [facility] Work Phone: 12-09-2021 15:52-0400 Respiratory rate 16 /min Dr. Rosa Kemp Work Phone: [facility] Work Phone: 12-09-2021 15:52-0400 SaO2% (BldA) [Mass fraction] 98 % Dr. Rosa Kemp Work Phone: [facility] Work Phone: 12-09-2021 15:52-0400 Systolic blood pressure 124 mm[Hg] Dr. Rosa Kemp Work Phone: [facility] Work Phone: 12-07-2021 18:00-0400 Body temperature 98.24 [degF] MYNOR TINOCO MD [facility] 12-07-2021 18:00-0400 Body weight 72.4 kg MYNOR TINOCO MD [facility] 12-07-2021 18:00-0400 Diastolic blood pressure 88 mm[Hg] MYNOR TINOCO MD [facility] 12-07-2021 18:00-0400 Heart rate 92 /min MYNOR TINOCO MD [facility] 12-07-2021 18:00-0400 Mean blood pressure 101 mm[Hg] MYNOR TINOCO MD [facility] 12-07-2021 18:00-0400 Respiratory rate 16 /min MYNOR TINOCO MD [facility] 12-07-2021 18:00-0400 Systolic blood pressure 128 mm[Hg] MYNOR TINOCO MD [facility] 11-20-2021 10:05-0400 Body temperature 98.42 [degF] SAM MACIAS MD [facility] 11-20-2021 10:05-0400 Diastolic blood pressure 78 mm[Hg] SAM MACIAS MD [facility] 11-20-2021 10:05-0400 Heart rate 70 /min SAM MACIAS MD [facility] 11-20-2021 10:05-0400 Respiratory rate 18 /min SAM MACIAS MD [facility] 11-20-2021 10:05-0400 Systolic blood pressure 135 mm[Hg] SAM MACIAS MD [facility] 10-12-2021 08:55-0400 Body mass index (BMI) [Ratio] 27.1 kg/m2 Dr. Rosa Kemp Work Phone: [facility] Work Phone: 10-12-2021 08:55-0400 Body temperature 98.2 [degF] Dr. Rosa Kemp Work Phone: [facility] Work Phone: 10-12-2021 08:55-0400 Body weight 78.[address] Rosa Kemp Work Phone: [facility] Work Phone: 10-12-2021 08:55-0400 Diastolic blood pressure 66 mm[Hg] Dr. Rosa Kemp Work Phone: [facility] Work Phone: 10-12-2021 08:55-0400 Heart rate 87 /min Dr. Rosa Kemp Work Phone: [facility] Work Phone: 10-12-2021 08:55-0400 Respiratory rate 14 /min Dr. Rosa Kemp Work Phone: [facility] Work Phone: 10-12-2021 08:55-0400 SaO2% (BldA) [Mass fraction] 98 % Dr. Rosa Kemp Work Phone: [facility] Work Phone: 10-12-2021 08:55-0400 Systolic blood pressure 108 mm[Hg] Dr. Rosa Kemp Work Phone: [facility] Work Phone: 10-10-2021 17:29-0400 Body height 167.6 cm SAM MACIAS MD [facility] 10-10-2021 17:29-0400 Body temperature 98.06 [degF] SAM MACIAS MD [facility] 10-10-2021 17:29-0400 Body weight 75 kg SAM MACIAS MD [facility] 10-10-2021 17:29-0400 Diastolic blood pressure 85 mm[Hg] SAM MACIAS MD [facility] 10-10-2021 17:29-0400 Heart rate 85 /min SAM MACIAS MD [facility] 10-10-2021 17:29-0400 Respiratory rate 20 /min SAM MACIAS MD [facility] 10-10-2021 17:29-0400 Systolic blood pressure 132 mm[Hg] SAM MACIAS MD [facility] 09-14-2021 14:45-0400 Body temperature 97.8 [degF] Dr. Rosa Kemp Work Phone: [facility] Work Phone: 09-14-2021 14:45-0400 Diastolic blood pressure 76 mm[Hg] Dr. Rosa Kemp Work Phone: [facility] Work Phone: 09-14-2021 14:45-0400 Heart rate 108 /min Dr. Rosa Kemp Work Phone: [facility] Work Phone: 09-14-2021 14:45-0400 Respiratory rate 15 /min Dr. Rosa Kemp Work Phone: [facility] Work Phone: 09-14-2021 14:45-0400 SaO2% (BldA) [Mass fraction] 98 % Dr. Rosa Kemp Work Phone: [facility] Work Phone: 09-14-2021 14:45-0400 Systolic blood pressure 114 mm[Hg] Dr. Rosa Kemp Work Phone: [facility] Work Phone: 09-09-2021 12:17-0400 Body temperature 99.1 [degF] Dr. Rosa Kemp Work Phone: [facility] Work Phone: 09-09-2021 12:17-0400 Diastolic blood pressure 78 mm[Hg] Dr. Rosa Kemp Work Phone: [facility] Work Phone: 09-09-2021 12:17-0400 Heart rate 97 /min Dr. Rosa Kemp Work Phone: [facility] Work Phone: 09-09-2021 12:17-0400 Respiratory rate 16 /min Dr. Rosa Kemp Work Phone: [facility] Work Phone: 09-09-2021 12:17-0400 SaO2% (BldA) [Mass fraction] 98 % Dr. Rosa Kemp Work Phone: [facility] Work Phone: 09-09-2021 12:17-0400 Systolic blood pressure 114 mm[Hg] Dr. Rosa Kemp Work Phone: [facility] Work Phone: 09-06-2021 15:03-0400 Body height 166.4 cm Angelina Bartlett APRN.[employer] MIXER ASSEMBLER Work Phone: [facility] 09-06-2021 15:03-0400 Body weight 76.57 kg Angelina Bartlett APRN.[employer] MIXER ASSEMBLER Work Phone: [facility] 09-06-2021 15:03-0400 Diastolic blood pressure 66 mm[Hg] Angelina Bartlett APRN.[employer] MIXER ASSEMBLER Work Phone: [facility] 09-06-2021 15:03-0400 Systolic blood pressure 120 mm[Hg] Angelina Bartlett APRN.[employer] MIXER ASSEMBLER Work Phone: [facility] 09-05-2021 17:57-0400 Body temperature 98.78 [degF] SHEYLA URRUTIAT DO [facility] 09-05-2021 17:57-0400 Diastolic blood pressure 85 mm[Hg] SHEYLA NEWTONMELT DO [facility] 09-05-2021 17:57-0400 Heart rate 107 /min SHEYLA URRUTIAT DO [facility] 09-05-2021 17:57-0400 Respiratory rate 16 /min SHEYLA URRUTIAT DO [facility] 09-05-2021 17:57-0400 Systolic blood pressure 128 mm[Hg] SHEYLA FROMMELT DO [facility] 08-23-2021 09:23-0400 Body weight 79.02 kg Nurse Wstr Work Phone: [facility] 08-23-2021 09:23-0400 Diastolic blood pressure 74 mm[Hg] Nurse Wstr Work Phone: [facility] 08-23-2021 09:23-0400 Systolic blood pressure 124 mm[Hg] Nurse Wstr Work Phone: [facility] 06-25-2021 18:30-0500 Body temperature 98.6 [degF] SHEYLA URRUTIAT DO [facility] 06-25-2021 18:30-0500 Diastolic blood pressure 72 mm[Hg] SHEYLA ROSAS DO [facility] 06-25-2021 18:30-0500 Heart rate 115 /min SHEYLA URRUTIAT DO [facility] 06-25-2021 18:30-0500 Respiratory rate 18 /min SHEYLA ROSAS DO [facility] 06-25-2021 18:30-0500 Systolic blood pressure 133 mm[Hg] SHEYLA URRUTIAT DO [facility] Encounters Encounter Date Encounter Type Care Provider Facility Start: 12-02-2024 [facility] Start: 11-25-2024 End: 11-25-2024 Emergency department patient visit [facility] Facility:[facility] Start: 11-17-2024 End: 11-17-2024 ambulatory [facility] Facility:[facility] Start: 11-14-2024 End: 11-14-2024 ambulatory [facility] Facility:[facility] Start: 11-10-2024 End: 11-10-2024 Emergency department patient visit JADE TOMLIN MD [facility] Start: 11-09-2024 End: 11-09-2024 Emergency department patient visit SHEYLA ROSAS DO [facility] Start: 11-09-2024 End: 11-09-2024 Emergency department patient visit [facility] Facility:[facility] Start: 11-02-2024 End: 11-02-2024 Emergency department patient visit [facility] Facility:[facility] Start: 10-16-2024 End: 10-16-2024 ambulatory Efinésongbe Oleherbiee Facility:[facility] Start: 10-12-2024 End: 10-12-2024 Emergency department patient visit CHI RAMIREZ DO [facility] Start: 10-03-2024 End: 10-03-2024 ambulatory Efewongbe Oleghe Facility:[facility] Start: 09-18-2024 End: 09-18-2024 ambulatory Efewongbe Oleghe Facility:[facility] Start: 09-18-2024 End: 09-18-2024 ambulatory Efinésbaltimorebe Oleherbiee Facility:[facility] Start: 09-11-2024 End: 09-11-2024 Emergency department patient visit Rosa Garciase Facility:[facility] Start: 09-10-2024 End: 10-24-2024 ambulatory ROSA KEMP MD Facility:[facility] Start: 09-10-2024 End: 10-24-2024 Physical therapy management CLAUDIA BONNER PA-C [facility] Start: 09-04-2024 End: 09-04-2024 ambulatory Rosa Kemp Facility:[facility] Start: 08-31-2024 End: 08-31-2024 Emergency department patient visit JACOB GOFF DO [facility] Start: 08-26-2024 End: 08-26-2024 Emergency department patient visit CHI RAMIREZ DO [facility] Start: 08-19-2024 End: 08-19-2024 Emergency department patient visit MYNOR TINOCO MD Facility:[facility] Start: 08-18-2024 End: 08-18-2024 Emergency department patient visit Poojalesley Edwardoherbiee Facility:[facility] Start: 08-07-2024 End: 08-07-2024 ambulatory Efinéslannyrafael Edwardoherbiesheela [facility] Start: 07-17-2024 End: 07-17[facility] Start: 07-08-2024 End: 07-09-2024 Emergency department patient visit [facility] Facility:[facility] Start: 06-30-2024 End: 06-30-2024 ambulatory inés[place]altimorerafael Garciase [facility] Start: 06-19-2024 End: 06-19-2024 ambulatory inésongrafael Brookee Facility:[facility] Start: 06-18-2024 End: 06-18-2024 ambulatory [facility] Start: 06-17-2024 End: 06-18-2024 ambulatory [facility] Facility:[facility] Start: 06-14-2024 End: 06-14-2024 Emergency department patient visit [facility] Facility:[facility] Start: 06-11-2024 End: 06-11-2024 ambulatory [facility] Facility:[facility] Start: 06-10-2024 End: 06-11-2024 ambulatory [facility] Facility:[facility] Start: 05-30-2024 End: 05-30-2024 Refill Angelina Bartlett APRN.[facility] Work Phone: OB/Gynecology Comment on above: Refill Request Start: 05-27-2024 End: 05-27-2024 [facility] Start: 05-23-2024 End: 05-23-2024 ambulatory Pratima Alvarado Facility:[facility] Start: 05-13-2024 End: 05-13-2024 ambulatory [facility] Facility:[facility] Start: 05-09-2024 ambulatory [facility] Justo Facili ty:[facility] Start: 04-07-2024 End: 04-07-2024 ambulatory [facility] Facility:[facility] Start: 03-26-2024 ambulatory [facility] Facili ty:[facility] Start: 03-25-2024 Encounter for other preprocedural examination Goyo Lim [facility] Start: 03-24-2024 End: 03-24-2024 ambulatory [facility] Start: 03-20-2024 End: 03-20-2024 ambulatory [facility] Facility:[facility] Start: 03-11-2024 End: 03-11-2024 Emergency department patient visit [facility] Facility:[facility] Start: 03-03-2024 End: 03-03-2024 ambulatory [facility] Facility:[facility] Start: 02-27-2024 [facility] Start: 02-21-2024 End: 02-21-2024 ambulatory [facility] Facility:[facility] Start: 02-15-2024 End: 02-15-2024 ambulatory [facility] Facility:[facility] Start: 02-14-2024 End: 02-14-2024 Telephone encounter Yaquelin Gaston APRN.CNP Work Phone: OB/Gynecology Comment on above: Orders Start: 02-13-2024 End: 02-13-2024 ambulatory [facility] Facility:[facility] Start: 02-12-2024 End: 02-12-2024 Emergency department patient visit [facility] Facility:[facility] Start: 02-06-2024 End: 02-06-2024 Emergency department patient visit [facility] Facility:[facility] Start: 02-05-2024 End: 02-05-2024 ambulatory [facility] Start: 02-05-2024 End: 02-05-2024 ambulatory [facility] Facility:[facility] Start: 02-01-2024 End: 02-01-2024 ambulatory [facility] Start: 02-01-2024 End: 02-01-2024 ambulatory [facility] Facility:[facility] Start: 01-17-2024 End: 01-17-2024 ambulatory [facility] Start: 01-16-2024 End: 01-16-2024 Emergency department patient visit [facility] Facility:[facility] Start: 12-19-2023 End: 12-19-2023 Emergency department patient visit [facility] Edwardosheela Facility:[facility] Start: 12-08-2023 End: 12-08-2023 [facility] Start: 11-22-2023 End: 11-22-2023 [facility] Start: 11-22-2023 End: 11-22-2023 Initial preventive medicine [...] encounter status Pratima Kat MD Work Phone: [facility] Start: 11-19-2023 End: 11-19-2023 Emergency department patient visit SAM MACIAS MD [facility] Start: 11-13-2023 Refill Angelina PATRICIO RN.[employer]SEMBL[employer] Work Phone: OB/Gynecology Comment on above: Refill Request Start: 10-10-2023 Telephone encounter Anna Marie marie APRN.[employer] MIXER ASSEMBLER Work Phone: [facility] Comment on above: No Show Start: 09-24-2023 End: 09-24-2023 Emergency department patient visit SHEYLA GHADABalbir BRONSON [facility] Start: 09-13-2023 E-mail encounter fro m caregiver Anna Marie Pérez APRN.[employer] M[employer]ER ASSEMBLER Work Phone: [facility] Start: 09-13-2023 Patient encounter procedure Anna Marie Pérez APRN.[employer] MIXER ASSEMBLER Work Phone: [facility] Comment on above: Reschedule Appointme nt 09/14/2023 Start: 08-29-2023 End: 08-29-2023 Nursing evaluation of patient and report Nurse Deboning Team Leader [facility] Wstr Work Phone: OB/Gynecology Comment on above: Encounter for manage ment and injection of depo-Provera (Primary Dx) Start: 08-29-2023 End: 08-29-2023 ambulatory ROSA BROOKESHELBY Facility:[facility] Start: 07-13-2023 End: 07-13-2023 Office outpatient new 45 minutes Anna Marie Prebish PIPE FITTER.FOOD MIXER ASSEMBLER Work Phone: [facility] Comment on above: 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 Start: 06-25-2023 Telephone encounter Lis jack MD Work Phone: [facility] Comment on above: Results Start: 06-18-2023 Telephone encounter Lis jack MD Work Phone: [facility]ology [facility] Comment on above: Initial Consult Start: 06-18-2023 End: 06-18-2023 Subsequent hospital visit by physician [facility] Comment on above: Pain in joint, multi ple sites [M25.50] Start: 06-18-2023 End: 06-18-2023 Patient encounter procedure Lis Freedman MD Work Phone: [facility] General Rheumatology [facility] Arthritis Comment on above: Pain in joint, multi ple sites (Primary Dx); Vitamin D deficiency; Low back pain, unspecified back pain laterality, unspecified chronicity, unspecified whether sciatica present Start: 06-18-2023 End: 06-18-2023 ambulatory LIS FREEDMAN [facility] Start: 06-11-2023 Telephone encounter Angelina coker APRN.CNP Work Phone: OB/Gynecology Comment on above: Patient Question Start: 06-06-2023 End: 06-06-2023 ambulatory [facility] Facility:[facility] Start: 05-30-2023 End: 05-30-2023 Subsequent hospital visit by physician Xr [facility] Benji Work Phone: Radiology Comment on above: Acute pain of left k nee [M25.562] Start: 05-30-2023 End: 05-30-2023 ambulatory [facility] Facility:[facility] Start: 03-15-2023 End: 03-15-2023 Nursing evaluation of patient and report Nurse Deboning Team Leader [facility] Work Phone: OB/Gynecology Comment on above: Encounter for manage ment and injection of depo-Provera (Primary Dx) Start: 03-15-2023 End: 03-15-2023 ambulatory [facility] Facility:[facility] Start: 12-13-2022 End: 12-13-2022 Subsequent hospital visit by physician [facility] Comment on above: Chronic viral hepati tis C [B18.2] Start: 12-07-2022 Refill Angelina PATRICIO RN.FO[employer] MIXER ASSEMBLER Work Phone: OB/Gynecology Comment on above: Refill Request Start: 09-18-2022 End: 09-18-2022 Emergency department patient visit SAM MACIAS MD [facility] Start: 09-05-2022 End: 09-05-2022 Patient encounter procedure Yaquelin Gaston APRN.[employer] MIXER ASSEMBLER Work Phone: OB/Gynecology Comment on above: Acute cystitis with hematuria (Primary Dx); Dysmenorrhea; Encounter for surveillance of other contraceptive Start: 08-14-2022 End: 08-14-2022 Emergency department patient visit Dr. Rosa Kemp Work Phone: [facility]-Emergency Department Start: 07-26-2022 End: 07-26-[address] Rosa Kemp Work Phone: [facility] Start: 07-25-2022 End: 07-25-2022 Emergency department patient visit [facility] System Start: 07-21-2022 End: 07-21-2022 Emergency department patient visit Dr. Rosa Kemp Work Phone: [facility]-Emergency Department Start: 07-20-2022 End: 07-20-[address] Rosa Kemp Work Phone: [facility]-Laboratory, [facility] Start: 07-18-2022 End: 07-18-[address] Rosa Kemp Work Phone: [facility] Internal Medicine Start: 07-05-2022 End: 07-05-[address] Rosa Kemp Work Phone: [facility] Orthopaedic [facility] Start: 06-10-2022 End: 06-10-2022 Emergency department patient visit Dr. Rosa Kemp Work Phone: [facility]-Emergency Department Start: 06-10-2022 End: 06-10-2022 Emergency department patient visit SAM MACIAS MD [facility] Start: 05-24-2022 End: 05-24-2022 Nursing evaluation of patient and report Nurse Deboning Team Leader [facility] Work Phone: OB/Gynecology Comment on above: Surveillance for Dep o-Provera contraception (Primary Dx); Encounter for management and injection of depo-Provera Start: 05-18-2022 End: 05-18-[address] Rosa Davila Phone: [facility] Internal Medicine Start: 05-09-2022 End: 05-09-[address] Rosa Davila Phone: [facility] Start: 05-06-2022 End: 05-06-2022 Emergency department [facility] Start: 04-21-2022 End: 04-21-2022 Emergency department patient [facility] Rosa Davila [facility] Start: 04-07-2022 End: 04-07-[address] Rosa Davila Phone: [facility] Start: 03-21-2022 End: 03-21-[address] Rosa Davila Phone: [facility] Internal Medicine Start: 03-20-2022 End: 03-20-2022 Emergency department patient [facility] Rosa Davila [facility] Start: 03-17-2022 End: 03-17-2022 Emergency department patient [facility] Rosa Davila [facility] Start: 03-01-2022 End: 03-01-2022 Emergency department patient [facility] Rosa Davila [facility] Start: 02-16-2022 End: 02-16-[address] Rosa Davila Phone: [facility] Start: 01-29-2022 End: 01-29-2022 Emergency department patient visit JAMES LAMB MD [facility] Start: 01-20-2022 End: 01-20-[address] Rosa Kemp Work Phone: [facility] Internal Medicine Start: 01-18-2022 End: 01-18-2022 Emergency department patient visit Dr. Rosa Kemp Work Phone: [facility]-Emergency Department Start: 01-18-2022 End: 01-18-[address] Rosa Kemp Work Phone: [facility] Start: 01-14-2022 End: 01-14-[address] Rosa Kemp Work Phone: [facility] Work Phone: Start: 01-14-2022 End: 01-14-[address] Rosa Kemp Work Phone: [facility] Start: 01-06-2022 End: 01-06-2022 Nursing evaluation of patient and report Nurse Deboning Team Leader [facility] Work Phone: OB/Gynecology Comment on above: Encounter for manage ment and injection of depo-Provera (Primary Dx) Start: 12-20-2021 End: 12-20-[address] Rosa Kemp Work Phone: [facility] Internal Medicine Start: 12-11-2021 End: 12-11-2021 Emergency department patient visit Dr. Rosa Kemp Work Phone: [facility]-Emergency Department Start: 12-09-2021 End: 12-09-[address] Rosa Kemp Work Phone: [facility] Internal Medicine Start: 12-07-2021 End: 12-07-2021 Emergency department patient visit MYNOR TINOCO MD [facility] Start: 11-24-2021 End: 11-24-[address] Rosa Kemp Work Phone: [facility] Start: 11-20-2021 End: 11-20-2021 Emergency department patient visit SAM MACIAS MD [facility] Start: 10-12-2021 End: 10-12-[address] Rosa Kemp Work Phone: [facility] Internal Medicine Start: 10-10-2021 End: 10-10-2021 Emergency department patient visit SAM MACIAS MD [facility] Start: 09-14-2021 End: 09-14-[address] Rosa Kemp Work Phone: [facility] Start: 09-09-2021 End: 09-09-[address] Rosa Kemp Work Phone: [facility] Start: 09-06-2021 End: 09-06-2021 Patient encounter procedure Angelina Bartlett APRN.FOOD MIXER ASSEMBLER Work Phone: OB/Gynecology Comment on above: Encounter for gyneco logical examination (general) (routine) without abnormal findings (Primary Dx); Need for prophylactic vaccination/inoculation against viral disease; Genital herpes simplex, unspecified site Start: 09-06-2021 End: 09-06-2021 Patient encounter status Angelina Bartlett APRN.FOOD MIXER ASSEMBLER Work Phone: OB/Gynecology Start: 09-05-2021 End: 09-05-2021 Emergency department patient visit SHEYLA ROSAS DO [facility] Start: 08-23-2021 End: 08-23-2021 Nursing evaluation of patient and report Nurse Deboning Team Leader [facility] Work Phone: OB/Gynecology Comment on above: Encounter for manage ment and injection of depo-Provera (Primary Dx) Start: 06-25-2021 End: 06-25-2021 Emergency department patient visit SHEYLA ROSAS DO [facility] Procedures Date Procedure Procedure Detail Performing Clinician Start: 06-18-2023 Radex hand minimum 3 views Lis Freedman MD Work Phone: Start: 05-30-2023 Radiologic exam knee complete 4/more views Vernon Calvin PIPE FITTER.FOOD MIXER ASSEMBLER Work Phone: Start: 03-15-2023 Urine test visual color cmprsn meths Love Penny MD Work Phone: Start: 12-13-2022 Ultrasound elastography parenchyma [facility] Provider Start: 09-05-2022 Urine test visual color cmprsn meths Yaquelin Ty PIPE FITTER.FOOD MIXER ASSEMBLER Work Phone: Start: 08-14-2022 CT of head without contrast Dr. Rosa Kemp Work Phone: Start: 08-14-2022 Plain chest X-ray Dr. Rosa Kemp Work Phone: Start: 05-24-2022 Urine test visual color cmprsn meths Love Penny MD Work Phone: Start: 01-14-2022 MRI of lumbar spine Dr. Rosa Kemp Work Phone: Appendectomy SHEYLA Mcgregor DO Cholecystectomy SHEYLA NATH DO History of cholecystectomy History of cholecystectomy Dr. Rosa Kemp Work Phone: Streptococcus pyogen es antigen assay Dr. Rosa Kemp Work Phone: Urine culture Dr. Rosa Kemp Work Phone: Urine culture Dr. Rosa Kemp Work Phone: Plan of Treatment Date Care Activity Detail Author Start: 09-06-2031 Urine microalbumin profile DTaP,Tdap,Td Vaccine (7 - Td or Tdap) [facility] Start: 11-21-2028 Screening for malign ant neoplasm of cervix Cervical Cancer Screening [facility] Start: 12-11-2024 HPV TESTING HPV TESTING [facility] Start: 12-11-2024 PAP TESTING PAP TESTING [facility] Start: 12-11-2024 Screening for malign ant neoplasm of cervix [facility] Start: 02-14-2024 End: 02-14-2024 Nursing evaluation of patient and report 02/14/2024 4:00 PM EDT Nurse Visit OB/Gynecology [address] [place] [address] Wstr, Nurse Deboning Team Leader [facility] [address] [place] [address] depo OB/Gynecology Comment on above: depo Start: 01-06-2024 Covid-19 Vaccine ( season) Covid-19 Vaccine ( season) [facility] Start: 01-06-2024 Covid-19 Vaccine ( season) Covid-19 Vaccine ( season) [facility] Start: 01-06-2024 Influenza vaccination [facility] Start: 11-21-2023 End: 11-21-2023 Nursing evaluation of patient and report OB/Gynecology Comment on above: Depo Depo - needs annual Start: 10-04-2023 End: 10-04-2023 Patient encounter procedure 10/04/2023 3:30 PM EDT Office Visit [facility] [address] [place] [address] Anna Marie Pérez, PIPE FITTER.FOOD MIXER ASSEMBLER [address] [place] [address] follow up [facility] Comment on above: follow up Start: 09-14-2023 End: 09-14-2023 Patient encounter procedure 09/14/2023 2:45 PM EDT Office Visit [facility] [address] [place] [address] Anna Marie Pérez, PIPE FITTER.FOOD MIXER ASSEMBLER [address] [place] [address] 2 month follow up [facility] Comment on above: 2 month follow up Start: 05-07-2023 Depression Assessment Depression Ass essment [facility] Start: 01-05-2023 Covid-19 Vaccine ( season) Covid-19 Vaccine ( season) [facility] Start: 01-05-[address] [facility] Start: 08-15-2022 [facility] Start: 08-14-2022 [facility] Start: 07-05-2022 Patient referral [facility] Work Phone: Start: 05-07-2022 [facility]MENT [facility] Start: 03-21-2022 Patient referral [facility] Work Phone: Start: 03-20-2022 [facility] Work Phone: Start: 03-05-2022 9vhpv vacc 2/3 dose sched im use HUMAN PAPILLOMAVIRUS 9-VALENT HPV IM Immunization/Injection Routine Expected: 03/05/2022 (Approximate) [facility] Work Phone: Comment on above: Expected: 03/05/2022 (Approximate) Start: 01-05-2022 Influenza vaccination [facility] Start: 11-05-2021 9vhpv vacc 2/3 dose sched im use HUMAN PAPILLOMAVIRUS 9-VALENT HPV IM Immunization/Injection Routine Expected: 11/05/2021 (Approximate) [facility] Work Phone: Comment on above: Expected: 11/05/2021 (Approximate) Start: 10-04-2021 HPV VACCINE (2 - 3-d ose SCDM series) HPV VACCINE (2 - 3-dose SCDM series) [facility] Start: 2009 Pneumococcal vaccination Pneumococcal Vaccine (1 of 2 - PCV) [facility] Start: 2009 Urine microalbumin profile DTAP,TDAP,TD (4 - Tdap) [facility] Start: 2008 Annual PCP Team Gin Pole Operator joshua Disease Visit Annual PCP Team Chronic Disease Visit [facility] Start: 2008 Anxiety Screening Anxiety Screening [facility] Start: 2008 Depression Screening Depression Scre ening [facility] Start: 2008 Spirometry Spirometry [facility] Start: 2002 Adult depression screening assessment DEPRESSION SCREENING [facility] Start: 1996 PNEUMOCOCCAL (1 - PCV) PNEUMOCOCCAL (1 - PCV) [facility] Start: 1996 Pneumococcal vaccination [facility] Start: 09-17-1995 COVID-19 VACCINE (1) [facility] Start: 03-19-1991 COVID-19 VACCINE (#1) COVID-19 VACCI NE (#1) [facility] Start: 1990 HEPATITIS B (1 of 3 - 3-dose series) HEPATITIS B (1 of 3 - 3-dose series) [facility] Bacteria identified in Urine by Culture URINE CULTURE Microbiology Routine Acute cystitis with hematuria 09/05/2022 3:29 PM EDT [facility] Work Phone: Chlamydia trachomatis+Neisseria gonorrhoeae DNA [Presence] in Unspecified specimen by AUSTIN with probe detection GONORRHEA/CHLAMYDIA NAAT Lab Routine Screen for STD (sexually transmitted disease) 11/22/2023 2:10 PM EDT [facility] PAP TEST PAP TEST Lab Louie le Screening for cervical cancer Encounter for screening for human papillomavirus (HPV) 11/22/2023 2:10 PM EDT [facility] Work Phone: Patient Education [facility] Work Phone: Patient referral [facility] Work Phone: Streptococcus pyogen es antigen assay Group A Streptococcus Rapid Screen [facility] Work Phone: Therapeutic prophylactic/dx injection subq/im THER/PROPH/DIAG INJ, SC/IM Procedures Routine Need for prophylactic vaccination/inoculation against viral disease Ordered: 09/06/[address] [facility] Work Phone: Comment on above: Ordered: 09/06/2021 [facility] Immunizations Immunization Date Immunization Notes Care Provider Loc sarkar 09-06-2021 Human Papillomavirus 9-valent vaccine Angelina Bartlett APRN.[facility] Work Phone: [facility] Work Phone: 09-05-2021 tetanus toxoid, redu tadeo diphtheria toxoid, and acellular pertussis vaccine, adsorbed [facility] 10-08-2019 tetanus toxoid, redu tadeo diphtheria toxoid, and acellular pertussis vaccine, adsorbed; Translations: [Boostrix (Tdap)] [facility] 04-30-2018 tetanus toxoid, redu tadeo diphtheria toxoid, and acellular pertussis vaccine, adsorbed Dr. Rosa Kemp Work Phone: [facility] 04-25-2014 tetanus and diphther ia toxoids, adsorbed, preservative free, for adult use (2 Lf of tetanus toxoid and 2 Lf of diphtheria toxoid) Dr. Rosa Kemp Work Phone: [facility] 04-21-1991 diphtheria, tetanus toxoids and acellular pertussis vaccine Nurse Wstr Work Phone: [facility] 04-21-1991 DTP-Haemophilus influenzae type b conjugate vaccine Nurse Wstr Work Phone: [facility] 01-14-1991 diphtheria, tetanus toxoids and acellular pertussis vaccine Nurse Wstr Work Phone: [facility] 01-14-1991 DTP-Haemophilus influenzae type b conjugate vaccine Nurse Wstr Work Phone: [facility] 01-14-1991 trivalent poliovirus vaccine, live, oral Nurse Wstr Work Phone: [facility] 1990 diphtheria, tetanus toxoids and acellular pertussis vaccine Nurse Wstr Work Phone: [facility] 1990 trivalent poliovirus vaccine, live, oral Nurse Wstr Work Phone: [facility] Payers Date Payer Category Payer Unknown [id number] 2024 Unknown [id number] 2024 Unknown [id number] 2023 Self-pay [id number] 2020 Medicaid [employer] [id number] 2020-Present [phone] [address] [place] [address] Medicaid [id number] 2020 Medicaid [id number] [id number] 2015 Unknown [id number] 1990 Unknown [id number] 2.16.840.1.165144.3.579.2.627 1990 Unknown [id number] 2.16.840.1.851425.3.579.2.627 1990 Unknown [id number] 2.16.840.1.074765.3.579.2.62 1990 Unknown [id number] 2.16.840.1.585962.3.579.2.627 1990 Unknown [id number] 2..840.1.363655.3.579.2. 1990 Unknown [id number] 2.16.840.1.112644.3.579.2.62 1990 Unknown [id number] 2.840.1.679996.3.579.2. 1990 Unknown [id number] 2.840.1.575284.3.579.2. 1990 Unknown [id number] 2..1.883708.3.579.262 Unknown [id number] Unknown [id number] 2.840.1.112479.3.579.2.462 Unknown [id number] 2.840.1.115408.3.579.2.462 Unknown [id number] 2.840.1.463250.3.579.2.462 Unknown [id number] 2.840.1.311654.3.579.2.462 Unknown [id number] 2.840.1.634497.3.579.2.462 Unknown [id number] 2.840.1.708411.3.579.2.462 Unknown [id number] 2.840.1.796746.3.579.2.462 Unknown [id number] 2.840.1.670243.3.579.2.462 Unknown [id number] 2.840.1.673340.3.579.2.462 Unknown [id number] 2.16.840.1.431708.3.579.2.462 Unknown [id number] 2.16.840.1.883059.3.579.2.462 Unknown [id number] 2.16840.1.792058.3.579.2.462 Unknown [id number] 2.840.1.682880.3.579.2.462 Unknown [id number] 2.840.1.302070.3.579.2.462 Unknown [id number] 2.840.1.741023.3.579.2.462 Unknown [id number] 2.840.1.317799.3.579.2.462 Unknown [id number] 2.840.1.396650.3.579.2.462 Unknown [id number] 2.840.1.546839.3.579.2.462 Unknown [id number] 2.840.1.422307.3.579.2.462 Unknown [id number] 2.840.1.430778.3.579.2.462 Unknown [id number] 2.840.1.107378.3.579.2.462 Unknown [id number] 2.840.1.868489.3.579.2.462 Unknown [id number] 2.840.1.352743.3.579.2.462 Unknown [id number] 2.840.1.492596.3.579.2.462 Unknown [id number] 2.840.1.031508.3.579.2.462 Unknown [id number] 2.840.1.591884.3.579.2.462 Unknown [id number] 2.840.1.235096.3.579.2.462 Unknown [id number] 2.16.840.1.854070.3.579.2.462 Unknown [id number] 2.16.840.1.037188.3.579.2.462 Unknown [id number] 2.16.840.1.074333.3.579.2.462 Unknown [id number] 2.16.840.1.897413.3.579.2.462 Unknown [id number] 2.16840.1.563867.3.579.2.462 Unknown [id number] 2.16840.1.546805.3.579.2.462 Unknown [id number] 2.840.1.305970.3.579.2.462 Unknown [id number] 2.840.1.512732.3.579.2.462 Unknown [id number] 2.840.1.778860.3.579.2.462 Unknown [id number] 2.840.1.372064.3.579.2.462 Unknown [id number] 2.840.1.937575.3.579.2.462 Unknown [id number] 2.840.1.544460.3.579.2.462 Unknown [id number] 2.840.1.084861.3.579.2.462 Unknown [id number] 2.840.1.461463.3.579.2.462 Unknown [id number] 2.16840.1.736988.3.579.2.462 Unknown [id number] 2.16.840.1.062607.3.579.2.462 Unknown [id number] 2.16.840.1.760469.3.579.2.462 Unknown [id number] 2.16840.1.596176.3.579.2.462 Unknown [id number] 2.16840.1.012837.3.579.2.462 Unknown [id number] 2.16.840.1.088631.3.579.2.462 Unknown [id number] 2.16.840.1.801392.3.579.2.462 Social History Date Type Detail Facility Start: 05-06-2019 End: 11-09-2024 Heavy tobacco smoker (finding) [facility] Start: 1990 Sex Assigned At Female A [facility] Start: 01-06-2022 End: 06-29-2023 Tobacco smoking status NHIS Smokes tobacco daily [facility] History of tobacco use Cigarette Smoker [facility] Work Phone: Start: 06-01-2021 End: 11-22-2023 Alcohol intake Current drinker of alcohol (finding) [facility] Start: 12-12-2019 History SDOH Alcohol Comment Seldom [facility] Start: 08-13-2021 End: 01-04-2022 Exposure to SARS-CoV-2 (event) Not sure [facility] Work Phone: Start: 12-11-2021 End: 08-14-2022 Tobacco smoking status NHIS Unknown if ever smoked [facility] Start: 10-01-2018 Rare [facility] Start: 10-01-2018 Spouse/ Signif icant Other [facility] Start: 01-06-2022 End: 12-08-2022 Cigarettes smoked current (pack per day) - Reported 0.3 [facility] Start: 01-06-2022 End: 06-29-2023 Tobacco use and exposure Smokeless tobacco non-user [facility] Work Phone: Start: 09-05-2022 End: 12-08-2022 Tobacco use panel [facility] National Score (1-100), lower number is lower risk 63 [facility] Start: 11-21-2020 Gender identity Identifies as female gender (finding) [facility] Start: 06-29-2023 Tobacco Comment 3-4 Cigs daily [facility] Start: 05-30-2024 Sexual orientation Heterosexual (fin cris) [facility] Start: 08-19-2024 Tobacco smoking status Light t obacco smoker (finding) [facility] Sexual Orientation [facility] Start: 05-06-2019 Sex Female (finding) [facility] NEGATED: Highlighted row [facility] Medical Equipment Procedure Code Equipment Code Equipment Original Text Equipment Identifier Dates Total cholecystectomy with exploration of common bile duct BRASS MOLDER HELPER,CLIP 5MM LIGAMAX FDA Start: 08-22-2019 Total cholecystectomy [...] cholecystectomy with exploration of common bile duct BRASS MOLDER HELPER,CLIP 5MM LIGAMAX FDA Start: 08-22-2019 Total cholecystectomy [...] cholecystectomy with exploration of common bile duct BRASS MOLDER HELPER,CLIP 5MM LIGAMAX FDA Start: 08-22-2019 Total cholecystectomy [...] cholecystectomy with exploration of common bile duct BRASS MOLDER HELPER,CLIP 5MM LIGAMAX FDA Start: 08-22-2019 Total cholecystectomy with exploration of common bile duct CLIP,HEMOLOCK MED WECK FDA Start: 08-22-2019 Total cholecystectomy with exploration of common bile duct CLIP,PATRICE RICO WECK FDA Start: 08-22-2019 Total cholecystectomy with exploration of common bile duct CLIP,HEMAMANDA RICO WECK FDA Start: 08-22-2019 Total cholecystectomy with exploration of common bile duct SURGICEL, POWDER 3GR FDA Start: 08-22-2019 Total cholecystectomy with exploration of common bile duct BRASS MOLDER HELPER,CLIP 5MM LIGAMAX FDA Start: 08-22-2019 Total cholecystectomy with exploration of common bile duct CLIP,PATRICE RICO WECK FDA Start: 08-22-2019 Total cholecystectomy with exploration of common bile duct CLIP,HEMAMANDA RICO WECK FDA Start: 08-22-2019 Total cholecystectomy with exploration of common bile duct CLIP,HEMAMANDA RICO WECK FDA Start: 08-22-2019 Total cholecystectomy with exploration of common bile duct SURGICEL, POWDER 3GR FDA Start: 08-22-2019 Total cholecystectomy with exploration of common bile duct BRASS MOLDER HELPER,CLIP 5MM LIGAMAX FDA Start: 08-22-2019 Total cholecystectomy with exploration of common bile duct CLIP,PATRICE RICO WEBATSHEVA FDA Start: 08-22-2019 Total cholecystectomy with exploration of common bile duct CLIP,PATRICE RICO WEBATSHEVA FDA Start: 08-22-2019 Total cholecystectomy with exploration of common bile duct CLIP,HEMAMANDA RICO WEBATSHEVA FDA Start: 08-22-2019 Total cholecystectomy with exploration of common bile duct SURGICEL, POWDER 3GR FDA Start: 08-22-2019 Total cholecystectomy with exploration of common bile duct BRASS MOLDER HELPER,CLIP 5MM LIGAMAX FDA Start: 08-22-2019 Total cholecystectomy with exploration of common bile duct CLIP,PATRICE RICO WECK FDA Start: 08-22-2019 Total cholecystectomy with exploration of common bile duct CLIP,HEMAMANDA RICO WECK FDA Start: 08-22-2019 Total cholecystectomy with exploration of common bile duct CLIP,HEMAMANDA RICO WECK FDA Start: 08-22-2019 Total cholecystectomy with exploration of common bile duct SURGICEL, POWDER 3GR FDA Start: 08-22-2019 Total cholecystectomy with exploration of common bile duct BRASS MOLDER HELPER,CLIP 5MM LIGAMAX FDA Start: 08-22-2019 Total cholecystectomy with exploration of common bile duct CLIP,PATRICE RICO WEBATSHEVA FDA Start: 08-22-2019 Total cholecystectomy with exploration of common bile duct CLIP,HEMAMANDA RICO WECK FDA Start: 08-22-2019 Total cholecystectomy with exploration of common bile duct CLIP,HEMOLOCK JACKY WECK FDA Start: 08-22-2019 Total cholecystectomy with exploration of common bile duct SURGICEL, POWDER 3GR FDA Start: 08-22-2019 Total cholecystectomy with exploration of common bile duct BRASS MOLDER HELPER,CLIP 5MM LIGAMAX FDA Start: 08-22-2019 Total cholecystectomy with exploration of common bile duct CLIP,PATRICE RICO WECK FDA Start: 08-22-2019 Total cholecystectomy with exploration of common bile duct CLIP,HEMOLOBATSHEVA RICO WECK FDA Start: 08-22-2019 Total cholecystectomy with exploration of common bile duct CLIP,HEMOLOBATSHEVA RICO WECK FDA Start: 08-22-2019 Total cholecystectomy with exploration of common bile duct SURGICEL, POWDER 3GR FDA Start: 08-22-2019 Total cholecystectomy with exploration of common bile duct BRASS MOLDER HELPER,CLIP 5MM LIGAMAX FDA Start: 08-22-2019 Total cholecystectomy with exploration of common bile duct CLIP,PATRICE STONERCK FDA Start: 08-22-2019 Total cholecystectomy with exploration of common bile duct CLIP,HEMAMANDA RICO WECK FDA Start: 08-22-2019 Total cholecystectomy with exploration of common bile duct CLIP,HEMOLOBATSHEVA RICO WECK FDA Start: 08-22-2019 Total cholecystectomy with exploration of common bile duct SURGICEL, POWDER 3GR FDA Start: 08-22-2019 Total cholecystectomy with exploration of common bile duct BRASS MOLDER HELPER,CLIP 5MM LIGAMAX FDA Start: 08-22-2019 Total cholecystectomy with exploration of common bile duct CLIP,PATRICE STONERCK FDA Start: 08-22-2019 Total cholecystectomy with exploration of common bile duct CLIP,HEMAMANDA RICO WECK FDA Start: 08-22-2019 Total cholecystectomy with exploration of common bile duct CLIP,HEMOLOCK JACKY WECK FDA Start: 08-22-2019 Total cholecystectomy with exploration of common bile duct SURGICEL, POWDER 3GR FDA Start: 08-22-2019 Functional Status Date Assessment Result Facility 08-31-2024 Functional Status ID band on, Allergy Band on, Call device within reach, Bed in low position, Wheels locked, Bedside Cart Locked, Safety level maintained [facility] 11-19-2023 Functional Status Independent [facility] 11-19-2023 Functional Status Standard Safet y ID band on, Call device within reach, Bed in low position, Wheels locked [facility] 09-24-2023 Functional Status Standard Safet y ID band on, Allergy Band on, Call device within reach, Bed in low position, Wheels locked, Upper/Half-Length side-rails up, Bedside Cart Locked, Safety level maintained [facility] 09-18-2022 Functional Status Up ad camila [facility] 07-25-2022 Functional Status Standard Safet y ID band on, Allergy Band on, Call device within reach, Bed in low position, Wheels locked, Bedside Cart Locked, Safety level maintained [facility] 07-25-2022 Functional Status [facility] 06-10-2022 Functional Status Room check performed [facility] 01-29-2022 Functional Status ID band on, Allergy Band on, Call device within reach, Bed in low position, Wheels locked, Upper/Half-Length side-rails up, Phone within reach, personal items within reach, Assistive devices within reach, Toileting device within reach, Bedside Cart Locked, Visitor at bedside, Safety level maintained [facility] 12-07-2021 Functional Status ID band on, Allergy Band on, Call device within reach, Bed in low position, Wheels locked, Upper/Half-Length side-rails up, Phone within reach, personal items within reach [facility] 11-20-2021 Functional Status ID band on, Call device within reach, Bed in low position, Wheels locked, Upper/Half-Length side-rails up, Phone within reach, personal items within reach, Assistive devices within reach, Toileting device within reach, Bedside Cart Locked, Visitor at bedside, Safety level maintained [facility] 10-10-2021 Functional Status Resting [facility] 09-05-2021 Functional Status [facility] Mental Status Date Assessment Result Facility 08-31-2024 Mental Status Oriented x 4 [facility] 11-19-2023 Mental Status Orientation Oriented x 4 [facility] 11-19-2023 Mental Status [facility] 09-18-2022 Mental Status Orientation Oriented x 4 [facility] 08-14-2022 Cognitive function Level Of Cons ciousness Awake;Alert;Appropriate [facility] Work Phone: 07-25-2022 Mental Status Orientation Oriented x 4 [facility] 06-10-2022 Cognitive function Level Of Cons ciousness Awake;Alert;Appropriate;Follow s Commands [facility] Work Phone: 06-10-2022 Mental Status Oriented x 4 [facility] 05-06-2022 Cognitive function Level Of Cons ciousness Awake;Alert;Appropriate;Follow s Commands;Responds to vocal stimuli [facility] Work Phone: 04-21-2022 Cognitive function Level Of Cons ciousness Awake;Alert;Follows Commands [facility] Work Phone: 03-01-2022 Cognitive function Level Of Cons ciousness Awake;Alert;Appropriate;Follow s Commands [facility] Work Phone: 01-29-2022 Mental Status Oriented x 4 [facility] 12-07-2021 Mental Status Oriented x 4 [facility] 11-20-2021 Mental Status Oriented x 4 [facility] 10-10-2021 Mental Status Orientation Oriented x 4 [facility] 09-05-2021 Mental Status [facility] Clinical Notes 06-25-2021 to 11-10-2024 Note Date & Type Note Facility 11-10-2024 Hospital Discharg e instructions Patient Education 11/10/2024 21:29:13 Leg Swelling in Both Legs Leg Swelling in Both Legs Swelling of the feet, ankles, and legs is called edema. It is caused by excess fluid that has collected in the tissues. Extra fluid in the body settles in the lowest part because of gravity. This is why the legs and feet are most affected. Some of the causes for edema include: Disease of the heart like congestive heart failure Standing or sitting for long periods of time Infection of the feet or legs Blood pooling in the veins of your legs (venous insufficiency) Dilated veins in your lower leg (varicose veins) Garters or other clothing that is tight on your legs. This will cause blood to pool in your legs because the clothing limits blood flow. Some medicines such as hormones like control pills, some blood pressure medicines like calcium channel blockers (amlodipine) and steroids, some antidepressants like MAO inhibitors and tricyclics Menstrual periods that cause you to retain fluids Many types of renal disease Liver failure or cirrhosis , some swelling is normal, but a sudden increase in leg swelling or weight gain can be a sign of a dangerous complication of Poor nutrition Thyroid disease Medical treatment will depend on what is causing the swelling in your legs. Your healthcare provider may prescribe water pills (diuretics) to get rid of the extra fluid. Home care Follow these guidelines when caring for yourself at home: Don't wear clothing like garters that is tight on your legs. Keep your legs up while lying or sitting. If infection, injury, or recent surgery is causing the swelling, stay off your legs as much as possible until symptoms get better. If your healthcare provider says that your leg swelling is caused by venous insufficiency or varicose veins, don't sit or resource engineer one place for long periods of time. Take breaks and walk about every few hours. Brisk walking is a good exercise. It helps circulate the blood that has collected in your leg. Talk with your provider about using support stockings to stop daytime leg swelling. If your provider says that heart disease is causing your leg swelling, follow a low-salt diet to stop extra fluid from staying in your body. You may also need medicine. Follow-up care Follow up with your healthcare provider, or as advised. When to seek medical advice Call your healthcare provider right away if any of these occur: New shortness of breath or chest pain Shortness of breath or chest pain that gets worse Swelling in both legs or ankles that gets worse Swelling of the abdomen Redness, warmth, or swelling in one leg Fever of 100.4 F (38 C) or higher, or as directed by your healthcare provider Yellow color to your skin or eyes Rapid, unexplained weight gain Having to sleep upright or use an increased number of pillows [id number] [employer]. [address] [place] [address], [place] [address]. All rights reserved. This information is not intended as a substitute for professional medical care. Always follow your healthcare professional's instructions. Follow Up Care 11/10/2024 16:46:08 With:ROSA KEMP MD Address: [address] [place] [address] [facility] [place] [address]- [phone] When:2-4 days [facility] 11-10-2024 Note Discharge Instructions Thank you for allowing [facility] to assist you with your healthcare needs. The following is important discharge information regarding your hospital visit. Diagnosis from Today's Visit Leg swelling What to Do Next Instructions from Your Care Team Stop amlodipine, keep legs elevated when at home, may try compression stockings. Call your doctor about alternative blood pressure medicine and possibly further testing for your swelling. No qualifying data available. Post Acute Orders No qualifying data available. You Need to Schedule the Following Appointments Follow Up with ROSA KEMP MD When:Within 2-4 days Where:[address] [place] [address] [place] [address]- [phone] Allergies naproxen Nausea Medications Please ask your [...] medication providers or retail pharmacies. Education Materials Leg Swelling in Both Legs Swelling of the feet, ankles, and legs is called edema. It is caused by excess fluid that has collected in the tissues. Extra fluid in the body settles in the lowest part because of gravity. This is why the legs and feet are most affected. Some of the causes for edema include: Disease of the heart like congestive heart failure Standing or sitting for long periods of time Infection of the feet or legs Blood pooling in the veins of your legs (venous insufficiency) Dilated veins in your lower leg (varicose veins) Garters or other clothing that is tight on your legs. This will cause blood to pool in your legs because the clothing limits blood flow. Some medicines such as hormones like control pills, some blood pressure medicines like calcium channel blockers (amlodipine) and steroids, some antidepressants like MAO inhibitors and tricyclics Menstrual periods that cause you to retain fluids Many types of renal disease Liver failure or cirrhosis , some swelling is normal, but a sudden increase in leg swelling or weight gain can be a sign of a dangerous complication of Poor nutrition Thyroid disease Medical treatment will depend on what is causing the swelling in your legs. Your healthcare provider may prescribe water pills (diuretics) to get rid of the extra fluid. Home care Follow these guidelines when caring for yourself at home: Don't wear clothing like garters that is tight on your legs. Keep your legs up while lying or sitting. If infection, injury, or recent surgery is causing the swelling, stay off your legs as much as possible until symptoms get better. If your healthcare provider says that your leg swelling is caused by venous insufficiency or varicose veins, don't sit or resource engineer one place for long periods of time. Take breaks and walk about every few hours. Brisk walking is a good exercise. It helps circulate the blood that has collected in your leg. Talk with your provider about using support stockings to stop daytime leg swelling. If your provider says that heart disease is causing your leg swelling, follow a low-salt diet to stop extra fluid from staying in your body. You may also need medicine. Follow-up care Follow up with your healthcare provider, or as advised. When to seek medical advice Call your healthcare provider right away if any of these occur: New shortness of breath or chest pain Shortness of breath or chest pain that gets worse Swelling in both legs or ankles that gets worse Swelling of the abdomen Redness, warmth, or swelling in one leg Fever of 100.4 F (38 C) or higher, or as directed by your healthcare provider Yellow color to your skin or eyes Rapid, unexplained weight gain Having to sleep upright or use an increased number of pillows [phone] [employer] [place] [address]. All rights reserved. This information is not intended as a substitute for professional medical care. Always follow your healthcare professional's instructions. Additional Information VACCINATE! IT SAVES LIVES! Members of the community who have not yet received the COVID-19 vaccine and would like to receive it can visit one of [facility] vaccine clinics. There are many vaccine clinic locations within the [facility]. For locations and available times, please visit [email or web address] [email or web address] It is important to note that some COVID mobile vaccine clinics are held outdoors and may be canceled in rainy or stormy conditions. To learn more about pediatric vaccinations (ages 5-11), we invite you to visit the [facility] webpage. https://www.[facility].org/p ages/3368-Esrdn-Olchkgtkyma-Freq jrazmy-Yaiij-Bslduugmq.html To learn more about the COVID-19 vaccine, we invite you to visit the CDC website for a list of frequently asked questions. https://www.cdc.gov/coronavirus/ 2019-ncov/vaccines/faq.html [facility] Patient Portal Access Instructions: Stay connected with your healthcare team and access your personal medical information anytime with the [facility] [employer] Patient Portal. If you would like a full copy of your medical records please contact the [facility] Medical Records Department Sunday through Sunday between 8a.m. and 4:30p.m. Please follow the directions below to access the portal: 1.Access the email account you provided upon registration to the [facility].2.Look for an invitation email from [facility].3.Open the email and access the invitation link: Accept Invitation to [facility]4.Fill in the required arteaga to create your account. Sign into [email or web address] with your username and password that you [...] you will allow to register on the [facility] Patient Portal for access to your information. You can also access the [facility] [employer] Patient Portal on the [employer] nta. Simply click on Health Records under Health [...] Call your local pharmacy or go to http://bit.[employer]/7W6Oj2n to find one close to you.3.Make use of household items: Use cat litter or old coffee grounds to dispose medications if other options are not available. Mix your drugs with these household products, seal them in an airtight container and throw it into the garbage. Call [facility]: [phone] to be sure your drugs can be [...] a CHART COPY Signatures Patient Education Materials Leg Swelling in Both Legs Medication Leaflets My discharge plan and instructions have been reviewed and explained to me and I,SANDIE BECERRIL understand my current condition and have read and understand these discharge instructions. I have received a written copy of the plan/instructions. If I have questions, I am aware that I should contact my doctor. Patient/Bead Filler Signature: Date/Time: Relationship to Patient: Witness Name/Signature: Date/Time: [facility] 11-10-2024 Note Exam Date Time Procedure Performing Provider Status 11/10/24 7:20 PM EKG [ED AOH] - CV JADE TOMLIN MD; Aut h (Verified) ECG Final Report Sinus rhythm Baseline wander in lead(s) V4,V5,V6 Electronic Signature: JADE TOMLIN MD 11/10/2024 20:08:35 [facility]07-07-2025 Note* Exam Date Time Procedure Performing Provider Status 11/10/24 6:39 PM XR Chest 1 View ZEE DICKSON DO; Aut h (Verified) [id number] ORIGINAL EXAMINATION: ONE XRAY VIEW OF THE CHEST11/10/2024 6:39 pm COMPARISON: 11/09/2024 HISTORY: ORDERING SYSTEM PROVIDED HISTORY: Reason for Exam: chest pain FINDINGS: The lungs are without acute focal process. There is no effusion or pneumothorax. The cardiomediastinal silhouette is without acute process. The osseous structures are without acute process. IMPRESSION: No acute process. CORRECTION I have personally reviewed the images and above dictation and made corrections where appropriate. Interpreted by: Zee Dickson Preliminary Report By: Mike Whitlock Electronically signed By Zee Dickson Dictated Date: 11/10/2024 7:10:18 PM Prelim Date: 11/10/2024 7:11:09 PM Sign Date: 11/10/2024 8:10:16 PM Ordering Provider: SHELBIE TAFOYA Interpreted by: Zee Dickson Preliminary Report By: Mike Whitlock Electronically signed By Zee Dickson Dictated Date: 11/10/2024 7:10:18 PM Prelim Date: 11/10/2024 7:11:09 PM Sign Date: 11/10/2024 8:10:16 PM Ordering Provider: SHELBIE TAFOYA [facility]07-06-2025 Hospital Discharge instructions Patient Education 11/09/2024 19:01:02 Leg Swelling in Both Legs Leg Swelling in Both Legs Swelling of the feet, ankles, and legs is called edema. It is caused by excess fluid that has collected in the tissues. Extra fluid in the body settles in the lowest part because of gravity. This is why the legs and feet are most affected. Some of the causes for edema include: Disease of the heart like congestive heart failure Standing or sitting for long periods of time Infection of the feet or legs Blood pooling in the veins of your legs (venous insufficiency) Dilated veins in your lower leg (varicose veins) Garters or other clothing that is tight on your legs. This will cause blood to pool in your legs because the clothing limits blood flow. Some medicines such as hormones like control pills, some blood pressure medicines like calcium channel blockers (amlodipine) and steroids, some antidepressants like MAO inhibitors and tricyclics Menstrual periods that cause you to retain fluids Many types of renal disease Liver failure or cirrhosis , some swelling is normal, but a sudden increase in leg swelling or weight gain can be a sign of a dangerous complication of Poor nutrition Thyroid disease Medical treatment will depend on what is causing the swelling in your legs. Your healthcare provider may prescribe water pills (diuretics) to get rid of the extra fluid. Home care Follow these guidelines when caring for yourself at home: Don't wear clothing like garters that is tight on your legs. Keep your legs up while lying or sitting. If infection, injury, or recent surgery is causing the swelling, stay off your legs as much as possible until symptoms get better. If your healthcare provider says that your leg swelling is caused by venous insufficiency or varicose veins, don't sit or resource engineer one place for long periods of time. Take breaks and walk about everyfew hours. Brisk walking is a good exercise. It helps circulate the blood that has collected in your leg. Talk with your provider about using support stockings to stop daytime leg swelling. If your provider says that heart disease is causing your leg swelling, follow a low-salt diet to stop extra fluid from staying in your body. You may also need medicine. Follow-up care Follow up with your healthcare provider, or as advised. When to seek medical advice Call your healthcare provider right away if any of these occur: New shortness of breath or chest pain Shortness of breath or chest pain that gets worse Swelling in both legs or ankles that gets worse Swelling of the abdomen Redness, warmth, or swelling in one leg Fever of 100.4 F (38 C) or higher, or as directed by your healthcare provider Yellow color to your skin or eyes Rapid, unexplained weight gain Having to sleep upright or use an increased number of pillows [id number] [employer] [place] [address], [place] [address]. All rights reserved. This information is not intended as a substitute for professional medical care. Always follow yourhealthcare professional's instructions. Follow Up Care 11/09/2024 17:47:02 With:ROSA KEMP MD Address: [place] [address]- [phone] When:2-4 days [facility] 07-06-2025 Emergency department Discharge summary Discharge Instructions Thank you for allowing [facility] to assist you with your healthcare needs. The following is importantdischarge information regarding your hospital visit. Diagnosis from Today's Visit Leg swelling What to Do Next Instructions from Your Care Team No qualifying data available. Post Acute Orders No qualifying data available. You Need to Schedule the Following Appointments Follow Up with ROSA KEMP MD When:Within 2-4 days Where:[place] [address] [phone] Allergies naproxen Nausea Medications Please ask your primary doctor or pharmacist before taking any other medication not listed, including over the counter drugs, herbal medications, vitamins and or supplements as they may interact withyour home medications. What How Much When Instructions [...] medication providers or retail pharmacies. Education Materials Leg Swelling in Both Legs Swelling of the feet, ankles, and legs is called edema. It is caused by excess fluid that has collected in the tissues. Extra fluid in the body settles in the lowest part because of gravity. This is why the legs and feet are most affected. Some of the causes for edema include: Disease of the heart like congestive heart failure Standing or sitting for long periods of time Infection of the feet or legs Blood pooling in the veins of your legs (venous insufficiency) Dilated veins in your lower leg (varicose veins) Garters or other clothing that is tight on your legs. This will cause blood to pool in your legs because the clothing limits blood flow. Some medicines such as hormones like control pills, some blood pressure medicines like calcium channel blockers (amlodipine) and steroids, some antidepressants like MAO inhibitors and tricyclics Menstrual periods that cause you to retain fluids Many types of renal disease Liver failure or cirrhosis , some swelling is normal, but a sudden increase in leg swelling or weight gain can be a sign of a dangerous complication of Poor nutrition Thyroid disease Medical treatment will depend on what is causing the swelling in your legs. Your healthcare provider may prescribe water pills (diuretics) to get rid of the extra fluid. Home care Follow these guidelines when caring for yourself at home: Don't wear clothing like garters that is tight on your legs. Keep your legs up while lying or sitting. If infection, injury, or recent surgery is causing the swelling, stay off your legs as much as possible until symptoms get better. If your healthcare provider says that your leg swelling is caused by venous insufficiency or varicose veins, don't sit or resource engineer one place for long periods of time. Take breaks and walk about everyfew hours. Brisk walking is a good exercise. It helps circulate the blood that has collected in your leg. Talk with your provider about using support stockings to stop daytime leg swelling. If your provider says that heart disease is causing your leg swelling, follow a low-salt diet to stop extra fluid from staying in your body. You may also need medicine. Follow-up care Follow up with your healthcare provider, or as advised. When to seek medical advice Call your healthcare provider right away if any of these occur: New shortness of breath or chest pain Shortness of breath or chest pain that gets worse Swelling in both legs or ankles that gets worse Swelling of the abdomen Redness, warmth, or swelling in one leg Fever of 100.4 F (38 C) or higher, or as directed by your healthcare provider Yellow color to your skin or eyes Rapid, unexplained weight gain Having to sleep upright or use an increased number of pillows [phone] [employer] [place] [address], [place] [address]. All rights reserved. This information is not intended as a substitute for professional medical care. Always follow yourhealthcare professional's instructions. Additional Information VACCINATE! IT SAVES LIVES! Members of the community who have not yet received the COVID-19 vaccine and would like to receive it can visit one of [facility] vaccine clinics. There are many vaccine clinic locations within the [facility]. For locations and available times, please visit [email or web address]/. It is important to note that some COVID mobile vaccine clinics are held outdoors and may be canceled in rainy or stormy conditions. To learn more about pediatric vaccinations (ages 5-11), we invite you to visit the [facility] webpage. https://www.[facility].org/pages/5930-Eptgr-Gduzqjzhgrc-Jtjmujjkty-Valvr-Eoj stions.htmlTo learn more about the COVID-19 vaccine, we invite you to visit the CDC website for a list of frequently asked questions. https://www.cdc.gov/coronavirus/2019-ncov/vaccines/faq.html [facility] Patient Portal Access Instructions: Stay connected with your healthcare team and access your personal medical information anytime with the [facility] Patient Portal. If you would like a full copy of your medical records please contact the [facility] Medical Records Department Sunday through Sunday between 8a.m. and 4:30p.m. Please follow the directions below to access the portal: 1.Access the email account you provided upon registration to the [facility].2.Look for an invitation email from [facility].3.Open the email and access the invitation link: Accept Invitation to [facility]4.Fill in the required arteaga to create your [...] you will allow to register on the [facility] Patient Portal for access to your information. You can also access the [facility] Patient Portal on the [employer] Simply click on Health Records under Emerging Threats and then click on the [facility] logo. [...] Call your local pharmacy or go to http://[employer].FMP Products/6E3Da1f to find one close to you.3.Make use of household items: Use cat litter or old coffee grounds to dispose medications if other options arenot available. Mix your drugs with these household products, seal them in an airtight container andthrow it into the garbage. Call [facility]: [phone] to be sure your drugs can be [...] a CHART COPY Signatures Patient Education Materials Leg Swelling in Both Legs Medication Leaflets My discharge plan and instructions have been reviewed and explained to me and I,ROBERT SANDIE L understand my current condition and have read and understand these discharge instructions. I have received a written copy of the plan/instructions. If I have questions, I am aware that I should contact my doctor. Patient/Bead Filler Signature: Date/Time: Relationship to Patient: Witness Name/Signature: Date/Time: [facility]07-06-2025 Note* Exam Date Time Procedure Performing Provider Status 11/09/24 6:32 PM XR Chest 1 View JOE MARCELO MD; [facility] (Verified) [id number] ORIGINAL EXAMINATION: ONE XRAY VIEW OF THE CHEST11/09/2024 6:34 pm COMPARISON: 08/16/2019 HISTORY: ORDERING SYSTEM PROVIDED HISTORY: Reason for Exam: chest pain FINDINGS: Heart and mediastinum: Cardiomediastinal silhouette is stable. Lungs and pleura: No focal consolidation or pulmonary edema. No pleural effusion or visible pneumothorax. Bones: No acute bony abnormality. IMPRESSION: No acute radiographic findings. I have personally reviewed the images of this examination and agree with the resident's findings and interpretation. Interpreted by: Joe Marcelo Preliminary Report By: Manuel Coats Electronically signed By Joe Marcelo Dictated Date: 11/09/2024 6:48:50 PM Prelim Date: 11/09/2024 6:49:56 PM Sign Date: 11/09/2024 6:51:33 PM Ordering Provider: SHEYLA ROSAS Interpreted by: Joe Marcelo Preliminary Report By: Manuel Coats Electronically signed By Joe Marcelo Dictated Date: 11/09/2024 6:48:50 PM Prelim Date: 11/09/2024 6:49:56 PM Sign Date: 11/09/2024 6:51:33 PM Ordering Provider: SHEYLA ROSAS [facility]07-06-2025 Note* Exam Date Time Procedure Performing Provider Status 11/09/24 6:15 PM EKG [ED AO] - CV SHEYLA ROSAS DO; Auth (Verified) ECG Final Report Sinus rhythm Probable left atrial enlargement Low voltage, precordial leads Compared to ECG at 05/06/2019 22:20:58 BORDERLINE ECG Electronic Signature: SHEYLA ROSAS DO 11/09/2024 18:35:50 [facility]06-08-2025 Hospital Discharge instructions Patient Education 10/12/2024 14:46:23 [...] bleeding, kidney, and liver problems. Certain NSAIDs mayincrease the risk for cardiovascular disease in some [...] lost, tell your healthcare provider right away. 4036-[address] [employer] [place] [address]. All rights reserved. This information is not intended as a substitute for professional medical care. Always follow yourhealthcare professional's instructions. Follow Up Care 10/12/2024 14:26:12 With:ROSA KEMP MD Address: [address] [place] [address] [phone] When:2-4 days [facility] 06-08-2025 Note Discharge Instructions Thank you for allowing [facility] to assist you with your healthcare needs. The following is importantdischarge information regarding your hospital visit. Diagnosis from Today's Visit Left ankle pain What to Do Next Instructions from Your Care Team No qualifying data available. Post Acute Orders No qualifying data available. You Need to Schedule the Following Appointments Follow Up with ROSA KEMP MD When:Within 2-4 days Where:[address] [place] [address]- [phone] Allergies naproxen Nausea Medications Please ask your primary doctor or pharmacist before taking any other medication not listed, including over the counter drugs, herbal medications, vitamins and or supplements as they may interact withyour home medications. What How Much When Instructions [...] bleeding, kidney, and liver problems. Certain NSAIDs mayincrease the risk for cardiovascular disease in some [...] lost, tell your healthcare provider right away. 9511-[address] [employer] [place] [address]. All rights reserved. This information is not intended as a substitute for professional medical care. Always follow yourhealthcare professional's instructions. Additional Information VACCINATE! IT SAVES LIVES! Members of the community who have not yet received the COVID-19 vaccine and would like to receive it can visit one of [facility] vaccine clinics. There are many vaccine clinic locations within the [facility]. For locations and available times, please visit www.[email or web address].[place].gov/. It is important to note that some COVID mobile vaccine clinics are held outdoors and may be canceled in rainy or stormy conditions. To learn more about pediatric vaccinations (ages 5-11), we invite you to visit the [facility] webpage. https://www.[facility].org/pages/2074-Aioym-Ejbsotkxvdf-Mdilkrswnb-Jewam-Obp stions.htmlTo learn more about the COVID-19 vaccine, we invite you to visit the CDC website for a list of frequently asked questions. https://www.cdc.gov/coronavirus/2019-ncov/vaccines/faq.html [facility] Patient Portal Access Instructions: Stay connected with your healthcare team and access your personal medical information anytime with the [facility] Patient Portal. If you would like a full copy of your medical records please contact the [facility] Medical Records Department Sunday through Sunday between 8a.m. and 4:30p.m. Please follow the directions below to access the portal: 1.Access the email account you provided upon registration to the [facility].2.Look for an invitation email from [facility].3.Open the email and access the invitation link: Accept Invitation to [facility].Fill in the required arteaga to create your account. Sign into [email or web address] with your username and password that you [...] you will allow to register on the [facility] Patient Portal for access to your information. You can also access the [facility] Patient Portal on the [employer] Simply click on Health Records under Emerging Threats and then click on the [employer] logo. HOW TO SAFELY DISPOSE OF PRESCRIPTION [...] Call your local pharmacy or go to http://[employer].FMP Products/8D4Qt8c to find one close to you.3.Make use of household items: Use cat litter or old coffee grounds to dispose medications if other options arenot available. Mix your drugs with these household products, seal them in an airtight container andthrow it into the garbage. Call [facility]: [phone] to be sure your drugs can be [...] aware that I should contact my doctor. Patient/Bead Filler Signature: Date/Time: Relationship to Patient: Witness Name/Signature: Date/Time: [facility]04-27-2025 Hospital Discharge instructions Patient Education 08/31/2024 16:11:51 Anxiety Reaction Anxiety Reaction Anxiety is the feeling we all get when we think something bad might happen. It is a normal responseto stress and usually causes only a mild [...] relieved by rest and mild pain reliever 2223-5400 [employer]. [address] [place] [address]. All rights reserved. This information is not intended as a substitute for professional medical care. Always follow yourhealthcare professional's instructions. Follow Up Care 08/31/2024 15:22:23 With:Follow up with primary care provider Address:Unknown When:2-4 days [facility] 04-27-2025 Note Discharge Instructions Thank you for allowing [facility] to assist you with your healthcare needs. [...] withyour home medications. What How Much When Instructions [...] bad might happen. It is a normal responseto stress and usually causes only a mild [...] relieved by rest and mild pain reliever 4877-[address] [employer] [place] [address]. All rights reserved. This information is not intended as a substitute for professional medical care. Always follow yourhealthcare professional's instructions. Additional Information VACCINATE! IT SAVES LIVES! Members of the community who have not yet received the COVID-19 vaccine and would like to receive it can visit one of [facility] vaccine clinics. There are many vaccine clinic locations within the [facility]. For locations and available times, please visit www.[email or web address].[place].gov/. It is important to note that some COVID mobile vaccine clinics are held outdoors and may be canceled in rainy or stormy conditions. To learn more about pediatric vaccinations (ages 5-11), we invite you to visit the [facility] webpage. https://www.[facility].org/pages/0635-Klmzz-Onyzonwsltn-Kzduyufnyg-Zeodf-Zih stions.htmlTo learn more about the COVID-19 vaccine, we invite you to visit the CDC website for a list of frequently asked questions. https://www.cdc.gov/coronavirus/2019-ncov/vaccines/faq.html [facility] Patient Portal Access Instructions: Stay connected with your healthcare team and access your personal medical information anytime with the [facility] Patient Portal. If you would like a full copy of your medical records please contact the [facility] Medical Records Department Sunday through Sunday between 8a.m. and 4:30p.m. Please follow the directions below to access the portal: 1.Access the email account you provided upon registration to the [facility].2.Look for an invitation email from [facility].3.Open the email and access the invitation link: Accept Invitation to [facility]4.Fill in the required arteaga to create your account. Sign into [email or web address] with your username and password that you [...] you will allow to register on the [facility] Patient Portal for access to your information. You can also access the [facility] Patient Portal on the [employer]. Simply click on Health Records under H[employer] and then click on the [employer] logo. HOW TO SAFELY DISPOSE OF PRESCRIPTION [...] Call your local pharmacy or go to http://bit.ly/7H2Af3g to find one close to you.3.Make use of household items: Use cat litter or old coffee grounds to dispose medications if other options arenot available. Mix your drugs with these household products, seal them in an airtight container andthrow it into the garbage. Call [facility]: [phone] to be sure your drugs can be [...] aware that I should contact my doctor. Patient/Bead Filler Signature: Date/Time: Relationship to Patient: Witness Name/Signature: Date/Time: [facility]01-24-2025 Telephone encounter Note* Telephone Encounter - Marissa Givens RN - 05/30/2024 1:56 PM EST Last OV 11/22/2023. Please address in AG absence. Requested Prescriptions Pending Prescriptions Disp Refills medroxyPROGESTERone (DEPO-PROVERA) 150 mg/mL 1 mL 3 Sig: Inject 1 mL intramuscularly every 12 weeks. Marissa Givens RN [facility]01-24-2025 Miscellaneous Notes* Telephone Encounter - Marissa Givens RN - 05/30/2024 1:56 PM EST Last OV 11/22/2023. Please address in AG absence. Requested Prescriptions Pending Prescriptions Disp Refills medroxyPROGESTERone (DEPO-PROVERA) 150 mg/mL 1 mL 3 Sig: Inject 1 mL intramuscularly every 12 weeks. Marissa Givens RN documented in [facility] encounter[facility] Telephone encounter Note * Telephone Encounter - Marissa Givens RN - 05/30/2024 1:55 PM EST Last OV 11/22/2023. Please address in AG absence. Requested Prescriptions Pending Prescriptions Disp Refills valACYclovir (VALTREX) 500 mg tablet 90 tablet 0 Sig: Take 1 tablet by mouth once daily. Marissa Givens RN [facility]01-24-2025 Miscellaneous Notes* Telephone Encounter - Marissa Givens RN - 05/30/2024 1:55 PM EST Last OV 11/22/2023. Please address in AG absence. Requested Prescriptions Pending Prescriptions Disp Refills valACYclovir (VALTREX) 500 mg tablet 90 tablet 0 Sig: Take 1 tablet by mouth once daily. Marissa Givens RN documented in [facility] encounter[facility] Telephone encounter Note * Telephone Encounter - Yaqeulin Gaston APRN.CNP - 02/14/2024 9:35 AM EDT Order filed. Yaquelin Gaston APRN.CNP [facility]10-10-2024 Miscellaneous Notes* Telephone Encounter - Yaquelin Gaston APRN.CNP - 02/14/2024 9:35 AM EDT Order filed. Yaquelin Gaston APRN.CNP * Telephone Encounter - Claudia Woodall RN - 02/14/2024 8:11 AM EDT Can you please file depo CAM order for nurse visit today. Claudia Woodall RN documented in this encounterPark[facility] Telephone encounter Note * Telephone Encounter - Claudia Woodall RN - 02/14/2024 8:11 AM EDT Can you please file depo CAM order for nurse visit today. Claudia Woodall RN [facility]07-18-2024 Nurse Note* Radha Eli LPN - 11/22/2023 5:05 PM EDT The patient is here for an injection of Depoprovera. Dose: 150 mg Route: Intramuscular Site: left upper quadrant gluteus Research Laboratory Manager: uMentionedco Lot: [id number] Expiration Date: 12/04/2026 The date due for the next injection is in 12 weeks Radha Eli LPN [facility]07-18-2024 Nurse Note* Radha Eli LPN - 11/22/2023 5:05 PM EDT The patient is here for an injection of Depoprovera. Dose: 150 mg Route: Intramuscular Site: left upper quadrant gluteus Research Laboratory Manager: prasco Lot: [id number] Expiration Date: 12/04/2026 The date due for the next injection is in 12 weeks Radha Eli LPN documented in this encounterPark[facility]07-18-2024 NoteHNO ID: [id number] Author: PRATIMA KAT MD Service: ? Author Type: Physician Type: Progress Notes Filed: 11/22/2023 14:12 Note Text: Needle Loom Setter offered: Patient declines. Sandie is a 33 [...] L1 SAB0 IAB0 Ectopic0 Multiple0 Live Births1 Metal Weather Stripper History LMP: 06/15/2023 (Approximate), Drug Induced Amenorrhea Age at Menarche: Age at First : Age at Menopause: Metal Weather Stripper History Comments: Sexual Activity: Yes; Male Contraception: [...] external genitalia normal, normal Bartholin's glands, urethra, [place]'s glands, no vulvar lesions, no cervical lesions, [...] year or sooner as needed Pratima Kat [facility]07-18-2024 History of Present illness Narrative* Pratima Kat MD - 11/22/2023 1:25 PM EDT Needle Loom Setter offered: Patient declines. Sandie is a 33 [...] L1 SAB0 IAB0 Ectopic0 Multiple0 Live Births1 Metal Weather Stripper History LMP: 06/15/2023 (Approximate), Drug Induced Amenorrhea Age at Menarche: Age at First : Age at Menopause: Metal Weather Stripper History Comments: Sexual Activity: Yes; Male Contraception: [...] external genitalia normal, normal Bartholin's glands, urethra, [place]'s glands, no vulvar lesions, no cervical lesions, [...] needed Pratima Kat MD documented in this encounterPark[facility] Note. MICRO - Microbiology PROCEDURE: Urine Culture [O1 [...] Locations *1: This test was performed at: [facility], [address] [place] [address], [facility]- , [facility] ([place])11-19-2023 Hospital Discharge instructions Patient Education 11/19/2023 17:02:18 [...] find the cause of your pain. If needed,you will have tests. Belly pain has many [...] foods again, start with small amounts of sptn-gp-ivrcyh, low- fat foods. These include apple sauce, toast, or [...] increase stomach acid. Don't use aspirin or dmeu-ijj-vytezzi pain and fever medicines, if possible. This includes nonsteroidal anti-inflammatory drugs (NSAIDs). Lose excess weight. Finish eating at least 2 hours before you go to bed or lie down. Raise the head of your bed. 6544-57[address] [employer] [place] [address]. All rights reserved. This information is not intended as a substitute for professional medical care. Always follow yourhealthcare professional's instructions. 11/19/2023 17:02:05 Bladder Infection, Female (Adult) Bladder Infection, Female (Adult) Urine is normally doesn't have any bacteria in it. But bacteria can get into the urinary tract fromthe skin around the rectum. Or they can [...] bladder. This causes many of the symptoms. Themost common symptoms of a bladder infection are: [...] into the urine and travel up to thebladder, causing inflammation and infection. This usually happens [...] better. It is important to finish them tomake sure the infection has cleared. You can [...] needs to be changed. If directed, you cancall to find out the results. If X-rays [...] or swelling in the outer vaginal area (karl) 6680-6[address] [employer] [place] [address]. All rights reserved. This information is not intended as a substitute for professional medical care. Always follow yourhealthcare professional's instructions. Follow Up Care 11/19/2023 15:38:59 With:ROSA KEMP MD Address: [facility] [address] [facility] [place] [phone] When:2-4 days [facility] 07-15-2024 Note Discharge Instructions Thank you for allowing [facility] to assist you with your healthcare needs. The following is importantdischarge information regarding your hospital visit. What to Do Next Instructions from Your Care Team No qualifying data available. Post Acute Orders No qualifying data available. You Need to Schedule the Following Appointments Follow Up with ROSA KEMP MD When:Within 2-4 days Where:[address] [place] [address] [address] [place], [place] [id number] [phone] Allergies naproxen Nausea Medications Please ask your primary doctor or pharmacist before taking any other medication not listed, including over the counter drugs, herbal medications, vitamins and or supplements as they may interact withyour home medications. What How Much When Instructions [...] may report side effects to FDA at [phone]. What other drugs will affect cephalexin? Tell your doctor about all your other medicines, especially: metformin; or probenecid. This list is not complete. Other drugs may affect cephalexin, including prescription and ouxx-wen-jspzohw medicines, vitamins, and herbal products. Not all [...] to ensure that the information provided by [employer]. ('[employer]') is accurate, up-to-date, and complete, but no guarantee is made to that effect. Drug information contained herein may be time sensitive. [employer] information has been compiled for use by healthcare practitioners and consumers in the [place] and therefore [employer] does not warrant that uses outside of the [place] are appropriate, unless specifically indicated otherwise. [employer] drug information does not endorse drugs, diagnose patients or recommend therapy. [employer] drug information isan informational resource designed to [...] effective or appropriate for any given patient. [employer] does not assume any responsibility for any aspect of healthcare administered with the aid of information [employer] provides. The information contained herein is not intended to cover all possible uses, directions, precautions, warnings, drug interactions, allergic reactions, or adverse effects. If you have questions about the drugs you are taking, check with your doctor, nurse or pharmacist. Copyright 2996-6664 [employer]. Version: .. Revision Date: 12/06/2022. Education Materials Abdominal Pain [...] find the cause of your pain. If needed,you will have tests. Belly pain has many [...] foods again, start with small amounts of obmo-px-hkflou, low- fat foods. These include apple sauce, toast, or [...] increase stomach acid. Don't use aspirin or isst-dxl-cjuuqud pain and fever medicines, if possible. This includes nonsteroidal anti-inflammatory drugs (NSAIDs). Lose excess weight. Finish eating at least 2 hours before you go to bed or lie down. Raise the head of your bed. 6803-7571 [employer]. [address] [place] [address]. All rights reserved. This information is not intended as a substitute for professional medical care. Always follow yourhealthcare professional's instructions. Bladder Infection, Female (Adult) Urine is normally doesn't have any bacteria in it. But bacteria can get into the urinary tract fromthe skin around the rectum. Or they can [...] bladder. This causes many of the symptoms. Themost common symptoms of a bladder infection are: [...] into the urine and travel up to thebladder, causing inflammation and infection. This usually happens [...] better. It is important to finish them tomake sure the infection has cleared. You can [...] needs to be changed. If directed, you cancall to find out the results. If X-rays [...] swelling in the outer vaginal area (labia) 6691-8032 [employer]. [address] [place] [address], [place] [address]. All rights reserved. This information is not intended as a substitute for professional medical care. Always follow yourhealthcare professional's instructions. Additional Information VACCINATE! IT SAVES LIVES! Members of the community who have not yet received the COVID-19 vaccine and would like to receive it can visit one of [facility] vaccine clinics. There are many vaccine clinic locations within the [facility]. For locations and available times, please visit www.[email or web address].[place].gov/. It is important to note that some COVID mobile vaccine clinics are held outdoors and may be canceled in rainy or stormy conditions. To learn more about pediatric vaccinations (ages 5-11), we invite you to visit the [facility] webpage. https://www.[facility].org/pages/3822-Ycbyb-Yvoqqzifchk-Unfasyihzy-Jujnr-Twz stions.htmlTo learn more about the COVID-19 vaccine, we invite you to visit the CDC website for a list of frequently asked questions. https://www.cdc.gov/coronavirus/2019-ncov/vaccines/faq.html [facility] Patient Portal Access Instructions: Stay connected with your healthcare team and access your personal medical information anytime with the [facility] [employer] Patient Portal. If you would like a full copy of your medical records please contact the [facility] Medical Records Department Sunday through Sunday between 8a.m. and 4:30p.m. Please follow the directions below to access the portal: 1.Access the email account you provided upon registration to the [facility].2.Look for an invitation email from [facility].3.Open the email and access the invitation link: Accept [facility]itation to [facility]4.Fill in the required arteaga to create your account. Sign into [email or web address] with your username and password that you [...] you will allow to register on the [facility] Patient Portal for access to your information. You can also access the [facility] Patient Portal on the [employer] nat. Simply click on Health Records under HOSTEXData and then click on the [facility] logo. [...] Call your local pharmacy or go to http://In[employer].FMP Products/3K3Pc7s to find one close to you.3.Make use of household items: Use cat litter or old coffee grounds to dispose medications if other options arenot available. Mix your drugs with these household products, seal them in an airtight container andthrow it into the garbage. Call [facility]: [phone] to be sure your drugs can be [...] aware that I should contact my doctor. Patient/Bead Filler Signature: Date/Time: Relationship to Patient: Witness Name/Signature: Date/Time: [facility]07-15-2024 Evaluation + Plan note Diagnostic Tests Pending * Urine Culture 11/19/23 [facility] 07-09-2024 Telephone encounter Note* Telephone Encounter - Pratima Carmona RN - 11/13/2023 10:56 AM EDT Pharmacy called requesting RX for Valtrex. Patient is due for annual. Has upcoming nurse visit for Depo. Will have patient schedule her annual exam at that time. RX pending. Requested Prescriptions Pending Prescriptions Disp Refills valACYclovir (VALTREX) 500 mg tablet 90 tablet 0 Sig: Take 1 tablet by mouth once daily. Pratima Carmona RN [facility]07-09-2024 Miscellaneous Notes* Telephone Encounter - Pratima Carmona RN - 11/13/2023 10:56 AM EDT Pharmacy called requesting RX for Valtrex. Patient is due for annual. Has upcoming nurse visit for Depo. Will have patient schedule her annual exam at that time. RX pending. Requested Prescriptions Pending Prescriptions Disp Refills valACYclovir (VALTREX) 500 mg tablet 90 tablet 0 Sig: Take 1 tablet by mouth once daily. Pratima Carmona RN documented in this encounterPark[facility] Telephone encounter Note * Telephone Encounter - Danis Lobato - 10/10/2023 11:41 AM EDT No Show Documentation Sandie Becerril no showed [...] Essence Lobato October 10, 2023 11:41 AM [facility]06-05-2024 Miscellaneous Notes* Telephone Encounter - Danis Lobato - 10/10/2023 11:41 AM EDT No Show Documentation Sandie Becerril no showed [...] this the Third or Fourth No Show? No Danis Lobato October 10, 2023 11:41 AM documented in this encounterParkview [facility]-20-[facility]24 Hospital Discharge instructions Patient Education 09/24/2023 21:25:44 [...] thin towel or cloth. You may use mdmy-mxa-amywuam pain medicine (NSAIDS or nonsteroidal anti- inflammatory [...] or is irritated You re-injure your ankle [id number] [employer]. [address] [place] [address], [place] [address]. All rights reserved. This information is not intended as a substitute for professional medical care. Always follow yourhealthcare professional's instructions. Follow Up Care 09/24/2023 18:40:08 With:Benji Herrera, Address: When:5 to 7 days only if needed [facility] 05-20-2024 Emergency department Discharge summary Discharge Instructions Thank you for allowing [facility] [...] the Following Appointments Follow Up with Benji Herrera, When: When:Within 5 to 7 days, only [...] thin towel or cloth. You may use ogps-jlr-vpmcadu pain medicine (NSAIDS or nonsteroidal anti- inflammatory [...] or is irritated You re-injure your ankle [phone] [employer] [place] [address], [place] [address]. All rights reserved. This information is not intended as a substitute for professional medical care. Always follow yourhealthcare professional's instructions. Additional Information VACCINATE! IT SAVES LIVES! Members of the community who have not yet received the COVID-19 vaccine and would like to receive it can visit one of [facility] vaccine clinics. There are many vaccine clinic locations within the [facility]. For locations and available times, please visit www.[email or web address].[place].gov/. It is important to note that some COVID mobile vaccine clinics are held outdoors and may be canceled in rainy or stormy conditions. To learn more about pediatric vaccinations (ages 5-11), we invite you to visit the [employer] webpage. https://www.CIDCOs.org/pages/8645-Yubcw-Rtwagdphppf-Xwgocneagl-Fggfo-Wai stions.htmlTo learn more about the COVID-19 vaccine, we invite you to visit the CDC website for a list of frequently asked questions. https://www.cdc.gov/coronavirus/2019-ncov/vaccines/faq.html [facility] Patient [facility] Access Instructions: Stay connected with your healthcare team and access your personal medical information anytime with the [facility] Patient Portal. If you would like a full copy of your medical records please contact the [facility] Medical Records Department Sunday through Sunday between 8a.m. and 4:30p.m. Please follow the directions below to access the portal: 1.Access the email account you provided upon registration to the hospital.2.Look for an invitation email from [facility].3.Open the email and access the invitation link: Accept Invitation to [facility]4.Fill in the required arteaga to create your account. Sign into [email or web address] with your username and password that you [...] you will allow to register on the [facility] Patient Portal for access to your information. You can also access the [facility] Patient Portal on the [employer] Simply click on Health Records under HealthData and then click on the [employer] logo. HOW TO SAFELY DISPOSE OF PRESCRIPTION [...] Call your local pharmacy or go to http://In[employer]ensors.FMP Products/5H3In6m to find one close to you.3.Make use of household items: Use cat litter or old coffee grounds to dispose medications if other options arenot available. Mix your drugs with these household products, seal them in an airtight container andthrow it into the garbage. Call [facility]: [phone] to be sure your drugs can be [...] aware that I should contact my doctor. Patient/Bead Filler Signature: Date/Time: Relationship to Patient: Witness Name/Signature: Date/Time: [facility]05-20-2024 Note ORIGINAL EXAMINATION: THREE XRAY VIEWS OF [...] Sign Date: 09/24/2023 9:23:59 PM Ordering Provider: [facility]04-24-2024 NoteHNO ID: [id number] Author: NETTE BROWN RN Service: ? Author Type: Registered Nurse Type: Progress Notes Filed: 08/29/2023 15:45 Note Text: Patient identified by name and date of . Sandie Becerril is here for a Depo Provera injection. Patient brought medication. Date last injected: 06/06/23 Depo-Provera, 150 mg, administered IM right upper quadrant gluteus, Lot # [id number], expiration date 04/05/2025. Depo-Provera was given without incident. Date of last menses: Patient's last menstrual period was 06/15/2023 (approximate). Irregular bleeding - No Menses ceased - Yes STD prevention discussed: Yes Patient instructed to return to clinic in 12 weeks. http://[email or web address]/clinic/contraception/Depo-Provera%20dosing%20calendar.pdf Provider Enedelia Dumont CNM was present in office at time of injection. [facility] History of Present illness Narrative* Nette Brown RN - 08/29/2023 3:32 PM EDT Patient identified by name and date of . Sandie Becerril is here for a Depo Provera injection. Patient brought medication. Date last injected: 06/06/23 Depo-Provera, 150 mg, administered IM right upper quadrant gluteus, Lot # [id number], expiration date 04/05/2025. Depo-Provera was given without incident. Date of last menses: Patient's last menstrual period was 06/15/2023 (approximate). Irregular bleeding - No Menses ceased - Yes STD prevention discussed: Yes Patient instructed to return to clinic in 12 weeks. http://drhart.net/clinic/contraception/Depo-Provera%20dosing%20calendar.pdf Provider Enedelia Dumont CNM was present in office at time of injection. Nette Brown RN documented in this encounterPark[facility]03-[facility] Instructions* Patient Instructions* Anna Marie Pérez APRN.CNP - 07/13/2023 8:42 AM EST Ice and heat as tolerated Activity as tolerated documented in this encounterParkview Health [facility]03-08-2024 History of Present illness Narrative* Anna Marie Pérez APRN.FOOD MIXER ASSEMBLER - 07/13/2023 8:00 AM EST Images from the original note were not included. 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 Patient has tried multiplemedications to help with the pain which have [...] Recent): No Current Therapies had PT at [facility] approx 1 year ago [facility] [...] and validated on 07/13/2023 by Anna Marie Prebish, PIPE FITTER.FOOD MIXER ASSEMBLER All prescriptions have been APPROPRIATELY filled. No [...] or focal abnormality throughout the regions evaluated. Distance Learning Administrator[facility] Transcribe Date/Time: Jun 18 2023 12:45P Dictated [...] Medications Interventional Procedures: None Studies: None Functional Episcopalian: Physical Therapy Consultation (Land-Based) Referrals: No additional considerations at present Follow-up: [...] APRN.ANNE Pain Management [facility] * Lynn Valentin MA - 07/13/2023 7:59 AM EST Review of Systems Constitutional: Negative for activity [...] The patient is nervous/anxious. documented in this encounterParkview Health [facility]03-08-2024 NoteHNO ID: [id number] Author: ANNA MARIE PÉREZ APRN.ANNE Service: ? 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 No [...] 1. Very minimal le (more content not included)...[facility] 07-13-2023 NoteHNO ID: [id number] Author: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 visit one of [facility] vaccine clinics. There are many vaccine clinic locations within the [facility]. For locations and available times, please visit www.gettheshot.coronavirus.[place].gov/. It is important to note that some COVID mobile vaccine clinics are held outdoors and may be canceled in rainy or stormy conditions. To learn more about pediatric vaccinations (ages 5-11), we invite you to visit the [facility] webpage. https://www.[facility].org/pages/8131-Baglq-Zxnptssnztr-Vuououqvdz-Soqil-Rpr stions.htmlTo learn more about the COVID-19 vaccine, we invite you to visit the CDC website for a list of frequently asked questions. https://www.cdc.gov/coronavirus/2019-ncov/vaccines/faq.html [facility] Patient Portal Access Instructions: Stay connected with your healthcare team and access your personal medical information anytime with the [facility] Patient Portal. If you would like a full copy of your medical records please contact the [facility] Medical Records Department Sunday through Sunday between 8a.m. and 4:30p.m. Please follow the directions below to access the portal: 1.Access the email account you provided upon registration to the [facility].2.Look for an invitation email from [facility].3.Open the email and access the invitation link: Accept Invitation to [facility]4.Fill in the required arteaga to create your account. Sign into [email or web address] with your username and password that you [...] you will allow to register on the [facility] Patient Portal for access to your information. You can also access the [facility] Patient Portal on the [employer] nat. Simply click on Health Records under Emerging Threats and then click on the Well[employer] logo. HOW TO SAFELY DISPOSE OF PRESCRIPTION [...] Call your local pharmacy or go to http://bit.FMP Products/5I4Wd6c to find one close to you.3.Make use of household items: Use cat litter or old coffee grounds to dispose medications if other options arenot available. Mix your drugs with these household products, seal them in an airtight container andthrow it into the garbage. Call [facility]: [phone] to be sure your drugs can be [...] aware that I should contact my doctor. Patient/Bead Filler Signature: Date/Time: Relationship to Patient: Witness Name/Signature: Date/Time: [facility]02-04-[address] Bingham [facility] June 10, 2022 9:47pm Note Date/Time June 10, 2022 7 :34pm [facility] Medical Records Department [address] [place] [address] Emergency Department Summary 06/10/22 MR#: [id number] Acct: [id number] Name: SANDIE BECERRIL Rep #:[id number] : 1990 31 From: Alvarez Bingham MD [...] not checked. No bloodin emesis or diarrhea. [facility] Medical History Acute maxillary sinusitis, unspecified Alcohol [...] 87.3 H Lymph % (Auto) 4.3 L Real % (Auto) 7.2 Eos % (Auto) 0.5 [...] your Primary Care Provider. Call [facility] ([phone]) or report to the closest Emergency Room. Call 911 if necessary. 06/10/222146 <Electronically signed by Alvarez Bingham MD> Cosigner Signature (if applicable): CC: Dr. Rosa Kemp MD ~ Signed [facility] Work Phone: 1(999) 672-169402-04-2023 Hospital Discharge instructions Patient Education 06/10/2022 02:59:17 [...] you feel better and your symptoms lessen. 2726-0360 [employer]. [address] [place] [address]. All rights reserved. This information is not intended as a substitute for professional medical care. Always follow yourhealthcare professional's instructions. Follow Up Care 06/10/2022 02:45:15 With:ROSA KEMP MD Address: [address] [place] [address] [place] [address] [phone] When:2-4 days [facility] 02-04-2023 Emergency department Discharge summary Discharge Instructions Thank you for allowing [facility] to assist you with your healthcare needs. The following is importantdischarge information regarding your hospital visit. Diagnosis from Today's Visit Vomiting Vomiting What to Do Next Instructions from Your Care Team No qualifying data available. Post Acute Orders No qualifying data available. You Need to Schedule the Following Appointments Follow Up with ROSA KEMP MD When Within 2-4 days Where: [address] [place] [address] [place] [address] [phone] Allergies naproxen Medications Please ask your primary [...] may report side effects to FDA at [phone]. What other drugs will affect ondansetron? Ondansetron [...] interact with ondansetron. This includes prescription and gmuc-dbl-eymthjb medicines, vitamins, and herbal products. Give a [...] to ensure that the information provided by [employer]. ('[employer]') is accurate, up-to-date, and complete, but no guarantee is made to that effect. Drug information contained herein may be time sensitive. [employer] information has been compiled for use by healthcare practitioners and consumers in the [place] and therefore [employer] does not warrant that uses outside of the [place] are appropriate, unless specifically indicated otherwise. [employer] drug information does not endorse drugs, diagnose patients or recommend therapy. [employer] drug information isan informational resource designed to [...] effective or appropriate for any given patient. [employer] does not assume any responsibility for any aspect of healthcare administered with the aid of information [facility] provides. The information contained herein is not intended to cover all possible uses, directions, precautions, warnings, drug interactions, allergic reactions, or adverse effects. If you have questions about the drugs you are taking, check with your doctor, nurse or pharmacist. Copyright 9283-4462 [employer] [facility] [employer]. Version: 13.01. Revision Date: 02/25/2016. Education Materials [...] you feel better and your symptoms lessen. 1738-3394 [employer]. [address] [place] [address], [place] [address]. All rights reserved. This information is not intended as a substitute for professional medical care. Always follow yourhealthcare professional's instructions. Additional Information VACCINATE! IT SAVES LIVES! Members of the community who have not yet received the COVID-19 vaccine and would like to receive it can visit one of [facility] vaccine clinics. There are many vaccine clinic locations within the [facility]. For locations and available times, please visit www.gettheshot.[email or web address].[place].org. It is important to note that some COVID mobile vaccine clinics are held outdoors and may be canceled in rainy orstormy conditions. To learn more about pediatric vaccinations (ages 5-11), we invite you to visit the [facility] webpage. https://www.[facility].org/pages/6401-Baqbd-Ltxnhlttisf-Gopgyqzqqs-Nkrrh-Nzo stions.htmlTo learn more about the COVID-19 vaccine, we invite you to visit the [facility] website for a list of frequently asked questions. https://keyshawn.org/assets/Wlzazetw-wdu-Mtlyalpt/yimvx-Nyxepyj-Gwkzmfclxi _Asked-Questions.pdf [facility] Patient Portal Access Instructions: Stay connected with your healthcare team and access your personal medical information anytime with the [facility] Patient Portal. If you would like a full copy of your medical records please contact the [facility] Medical Records Department Sunday through Sunday between 8a.m. and 4:30p.m. Please follow the directions below to access the portal: 1.Access the email account you provided upon registration to the hospital.2.Look for an invitation email from [facility].3.Open the email and access the invitation link: Accept Invitation to [facility]4.Fill in the required arteaga to create your account. Sign into [email or web address] with your username and password that you [...] you will allow to register on the [facility] Patient Portal for access to your information. You can also access the [facility] Patient Portal on the [employer] Simply click on Health Records under Emerging Threats and then click on the [facility] logo. [...] Call your local pharmacy or go to http://Innovative [employer]ensors.FMP Products/1W3Pw7w to find one close to you.3.Make use of household items: Use cat litter or old coffee grounds to dispose medications if other options arenot available. Mix your drugs with these household products, seal them in an airtight container andthrow it into the garbage. Call [facility]: [phone] to be sure your drugs can be [...] aware that I should contact my doctor. Patient/Bead Filler Signature: Date/Time: Relationship to Patient: Witness Name/Signature: Date/Time: [facility]01-18-2023 History of Present illness Narrative * Nette Brown RN - 05/24/2022 10:57 AM EST hc Patient identified by name and date of . Sandie Becerril is here for a Depo Provera injection. Patient brought medication. Date last injected: out of range - negative test Depo-Provera, 150 mg, administered IM right upper quadrant gluteus, Lot # [id number], expiration date 01/04/2026. Depo-Provera was given without incident. Date of last menses: Patient's last menstrual period was 11/14/2019 (approximate). Irregular bleeding - No Menses ceased - Yes STD prevention discussed: Yes Patient instructed to return to clinic in 12 weeks. [email or web address]/Depo-Provera%20dosing%20calendar.pdf Provider Love Penny MD was present in office at time of injection. Nette Brown RN [facility] Hospital Discharge instructions Patient Education 01/29/2022 16:09:13 [...] or swelling over your back or spine 8933-[address] [employer] [place] [address]. All rights reserved. This information is not intended as a substitute for professional medical care. Always follow yourhealthcare professional's instructions. Follow Up Care 01/29/2022 15:23:42 With:Your pain management doctor Address: When:2-4 days With:ROSA KEMP MD Address: [address] [place] [address] [phone] When:2-4 days With:Go to emergency room if symptoms worsen Address:Unknown When:2-4 days [facility] 09-25-2022 Emergency department Discharge summary Discharge Instructions Thank you for allowing [facility] to assist you with your healthcare needs. [...] KEMP MD When Within 2-4 days Where: [address] [facility] [address] [phone] Follow Up with Go to emergency room [...] or swelling over your back or spine 9577-1069 [employer]. [address] [place] [address]. All rights reserved. This information is not intended as a substitute for professional medical care. Always follow yourhealthcare professional's instructions. Additional Information VACCINATE! IT SAVES LIVES! Members of the community who have not yet received the COVID-19 vaccine and would like to receive it can visit one of [facility] vaccine clinics. There are many vaccine clinic locations within the [facility]. For locations and available times, please visit [email or web address]. It is important to note that some COVID mobile vaccine clinics are held outdoors and may be canceled in rainy orstormy conditions. To learn more about pediatric vaccinations (ages 5-11), we invite you to visit the [facility] webpage. https://www.[email or web address]/pages/[email or web address]-Kglex-Xlcivgbpyjq-Qntwpyygci-Hppth-Xlc stions.htmlTo learn more about the COVID-19 vaccine, we invite you to visit the [facility] website for a list of frequently asked questions. [email or web address]/Itcaozsb-zmx-Nbcidhyq/soxno-Vtzbqum-Vvqwljdhqj _Asked-Questions.pdf [facility] Patient Portal Access Instructions: Stay connected with your healthcare team and access your personal medical information anytime with the [facility] Patient Portal. If you would like a full copy of your medical records please contact the [facility] Medical Records Department Sunday through Sunday between 8a.m. and 4:30p.m. Please follow the directions below to access the portal: 1.Access the email account you provided upon registration to the [facility].2.Look for an invitation email from [facility].3.Open the email and access the invitation link: Accept Invitation to [facility]4.Fill in the required arteaga to create your account. Sign into [email or web address] with your username and password that you [...] you will allow to register on the [facility] Patient Portal for access to your information. You can also access the [facility] Patient Portal on the [employer] Simply click on Health Records under HOSTEXData and then click on the Keyshawn logo. [...] Call your local pharmacy or go to http://bit.ly/1K6Et6v to find one close to you.3.Make use of household items: Use cat litter or old coffee grounds to dispose medications if other options arenot available. Mix your drugs with these household products, seal them in an airtight container andthrow it into the garbage. Call [facility]: [phone] to be sure your drugs can be [...] aware that I should contact my doctor. Patient/Bead Filler Signature: Date/Time: Relationship to Patient: Witness Name/Signature: Date/Time: [facility] [id number] History of Present illness Narrative * Radha Eli LPN - 01/06/2022 3:37 PM EDT Patient identified by name and date of . Sandie Becerril is here for a Depo Provera injection. Patient brought medication. Date last injected: out of range - negative test Depo-Provera, 150 mg, administered IM left upper quadrant gluteus, Lot # [id number], expiration date 07/2023. Depo-Provera was given without incident. Date of last menses: Patient's last menstrual period was 11/14/2019 (approximate). Irregular bleeding - No Menses ceased - No STD prevention discussed: Yes Patient instructed to return to clinic IN 12 WEEKS. [email or web address]-[email or web address].pdf Provider Will Jamison was present in office at time of injection. Radha Eli LPN [facility] Discharge instructions Patient Education 12/07/2021 18:19:15 [...] or swelling over your back or spine 5674-6552 [employer]. [address] [place] [address], [place] [address]. All rights reserved. This information is not intended as a substitute for professional medical care. Always follow yourhealthcare professional's instructions. 12/07/2021 18:19:09 Back Pain (Acute [...] are taking other medicines. You may use alza-umr-kzbypyp medicine as directed on the bottle to [...] Numbness in the groin or genital area 5032-9543 [employer]. [address] [place] [address]. All rights reserved. This information is not intended as a substitute for professional medical care. Always follow yourhealthcare professional's instructions. Follow Up Care 12/07/2021 17:44:52 With:ROSA KEMP MD Address: [address] [place] [phone]- [phone] When:Within 2 Day(s) Comments:Follow-up with your doctor as scheduled on Sunday.Position of comfort, limit activity as tolerated.Use ice or cool compresses to the painful area for the next 2 days and warm, moist heat thereafter.Continue ibuprofen and Tylenol for pain as needed.Use muscle relaxants (cyclobenzaprine) as prescribed for muscle pain and spasm.Use steroid (prednisone) as prescribed for inflammation.Return to ED if symptoms worsen. [facility] 08-03-2022 Note Discharge Instructions Thank you for allowing [facility] to assist you with your healthcare needs. [...] Return to ED if symptoms worsen. Where: [address] [place] [address] [place] [address]- [phone] Allergies naproxen Medications Please ask your primary [...] or swelling over your back or spine 1237-5375 [employer]. [address] [place] [address], [place] [address]. All rights reserved. This information is not [...] are taking other medicines. You may use xafy-opj-daqlisq medicine as directed on the bottle to [...] Numbness in the groin or genital area 7650-7669 [employer]. [address] [place] [address], [place] [address]. All rights reserved. This information is not intended as a substitute for professional medical care. Always follow yourhealthcare professional's instructions. Additional Information VACCINATE! IT SAVES LIVES! Members of the community who have not yet received the COVID-19 vaccine and would like to receive it can visit one of [facility] vaccine clinics. There are many vaccine clinic locations within the [facility]. For locations and available times, please visit [email or web address]. It is important to note that some COVID mobile vaccine clinics are held outdoors and may be canceled in rainy orstormy conditions. To learn more about pediatric vaccinations (ages 5-11), we invite you to visit the [facility] webpage. https://www.[email or web address].org/pages/1099-Fyceo-Wwxfywrbaps-Jgszrrmdwz-Qygsf-Jgy stions.htmlTo learn more about the COVID-19 vaccine, we invite you to visit the [facility] website for a list of frequently asked questions. [email or web address]/[email or web address]-[email or web address]/[email or web address]-Yijmkgd-Jtfyqnicgp _Asked-Questions.pdf [facility] Patient Portal Access Instructions: Stay connected with your healthcare team and access your personal medical information anytime with the [facility] Patient Portal. If you would like a full copy of your medical records please contact the [facility] Medical Records Department Sunday through Sunday between 8a.m. and 4:30p.m. Please follow the directions below to access the portal: 1.Access the email account you provided upon registration to the [facility].2.Look for an invitation email from [facility].3.Open the email and access the invitation link: Accept Invitation to [facility]4.Fill in the required arteaga to create your account. Sign into [email or web address] with your username and password that you [...] you will allow to register on the [facility] Patient Portal for access to your information. You can also access the [facility] Patient Portal on the [employer]. Simply click on Health Records under Emerging Threats and then click on the [employer] logo. HOW TO SAFELY DISPOSE OF PRESCRIPTION [...] Call your local pharmacy or go to http://[employer].FMP Products/1M1Ho4t to find one close to you.3.Make use of household items: Use cat litter or old coffee grounds to dispose medications if other options arenot available. Mix your drugs with these household products, seal them in an airtight container andthrow it into the garbage. Call [facility]: [phone] to be sure your drugs can be [...] aware that I should contact my doctor. Patient/Bead Filler Signature: Date/Time: Relationship to Patient: Witness Name/Signature: Date/Time: [facility]07-17-2022 Hospital Discharge instructions Patient Education 11/20/2021 10:10:59 [...] or higher after 2 days on antibiotics 4474-6757 [employer]. [address] [place] [address]. All rights reserved. This information is not intended as a substitute for professional medical care. Always follow yourhealthcare professional's instructions. Follow Up Care 11/20/2021 10:01:24 With:ROSA KEMP MD Address: [facility] [place] [address]- [phone] When:2-4 days [facility] 07-17-2022 Emergency department Discharge summary Discharge Instructions Thank you for allowing [facility] to assist you with your healthcare needs. The following is importantdischarge information regarding your hospital visit. Diagnosis from Today's Visit Cellulitis Skin problem What to Do Next Instructions from Your Care Team No qualifying data available. Post Acute Orders No qualifying data available. You Need to Schedule the Following Appointments Follow Up with ROSA KEMP MD When Within 2-4 days Where: [address] [place] [address]- [phone] Allergies naproxen Medications Please ask your primary [...] retail pharmacies. Medication Leaflets doxycycline (oral/injection) (DOX i WILLOW dejesus) Acticlate, Adoxa, Alodox, Avidoxy, Doryx, Mondoxyne [...] or life-threatening conditions such as anthrax or [place] spotted fever. The benefit of treating a [...] may report side effects to FDA at 9-171-QPI-2914. What other drugs will affect doxycycline? Sometimes it is not safe to use certain medications at the same time. Some drugs can affect your blood levels of other drugs you take, which may increase side effects or make the medications less effective. Other drugs may affect doxycycline, including prescription and fxlq-cot-hncmuok medicines, vitamins, and herbal products. Tell your [...] to ensure that the information provided by [employer]. ('[employer]') is accurate, up-to-date, and complete, but no guarantee is made to that effect. Drug information contained herein may be time sensitive. [employer] information has been compiled for use by healthcare practitioners and consumers in the [place] and therefore [employer] does not warrant that uses outside of the [place] are appropriate, unless specifically indicated otherwise. [employer] drug information does not endorse drugs, diagnose patients or recommend therapy. [employer] drug information isan informational resource designed to [...] effective or appropriate for any given patient. [employer] does not assume any responsibility for any aspect of healthcare administered with the aid of information [employer] provides. The information contained herein is not intended to cover all possible uses, directions, precautions, warnings, drug interactions, allergic reactions, or adverse effects. If you have questions about the drugs you are taking, check with your doctor, nurse or pharmacist. Copyright 2458-6499 [employer]. Version: 21.. Revision Date: 03/10/2020. Education Materials Cellulitis Cellulitis [...] or higher after 2 days on antibiotics 2124-0705 [employer]. [address] [place] [address]. All rights reserved. This information is not intended as a substitute for professional medical care. Always follow yourhealthcare professional's instructions. Additional Information VACCINATE! IT SAVES LIVES! Members of the community who have not yet received the COVID-19 vaccine and would like to receive it can visit one of [facility] vaccine clinics. There are many vaccine clinic locations within the [facility]. For locations and available times, please visit [email or web address]. It is important to note that some COVID mobile vaccine clinics are held outdoors and may be canceled in rainy orstormy conditions. To learn more about pediatric vaccinations (ages 5-11), we invite you to visit the [facility] webpage. https://www.[email or web address].org/pages/4173-Kfsxt-Eskjmexzdkh-Ntclkwmpvu-Ozeot-Vys stions.htmlTo learn more about the COVID-19 vaccine, we invite you to visit the [facility] website for a list of frequently asked questions. [email or web address]://[email or web address]-[email or web address]-[email or web address]/pkuwk-Nagmlyt-Znsupawucc _Asked-Questions.pdf [facility] Patient Portal Access Instructions: Stay connected with your healthcare team and access your personal medical information anytime with the [facility] Patient Portal. If you would like a full copy of your medical records please contact the [facility] Medical Records Department Sunday through Sunday between 8a.m. and 4:30p.m. Please follow the directions below to access the portal: 1.Access the email account you provided upon registration to the [facility].2.Look for an invitation email from [facility].3.Open the email and access the invitation link: Accept Invitation to [facility]4.Fill in the required arteaga to create your account. Sign into [email or web address] with your username and password that you [...] you will allow to register on the [facility] Patient Portal for access to your information. You can also access the [facility] Patient Portal on the [employer] nat. Simply click on Health Records under Emerging Threats and then click on the [employer] logo. HOW TO SAFELY DISPOSE OF PRESCRIPTION [...] Call your local pharmacy or go to http://In[employer].FMP Products/6M0Nn3i to find one close to you.3.Make use of household items: Use cat litter or old coffee grounds to dispose medications if other options arenot available. Mix your drugs with these household products, seal them in an airtight container andthrow it into the garbage. Call [facility]: [phone] to be sure your drugs can be [...] aware that I should contact my doctor. Patient/Bead Filler Signature: Date/Time: Relationship to Patient: Witness Name/Signature: Date/Time: [facility]06-06-2022 Hospital Discharge instructions Patient Education 10/10/2021 18:09:10 [...] thin towel or cloth. You may use gube-anx-mmmobzp pain medicine (NSAIDS or nonsteroidal anti- inflammatory [...] or is irritated You re-injure your ankle 2291-[address]31 [employer] [place] [address]. All rights reserved. This information is not intended as a substitute for professional medical care. Always follow yourhealthcare professional's instructions. 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 The [place] [employer] estimated that in 2005 there [...] may still be present. documented in this encounter[facility] Hospital Discharge instructions Patient Education 09/05/2021 18:11:29 [...] injured area. Frequent bruising for unknown reasons 8037-[address] [employer] [place] [address]. All rights reserved. This information is not intended as a substitute for professional medical care. Always follow yourhealthcare professional's instructions. Follow Up Care 09/05/2021 17:50:11 With:ROSA KEMP MD Address: [address] [place] [address] [place] [address]- [phone] When:2-4 days [facility] 04-19-2022 History of Present illness Narrative* Haydee Lord RN - 08/23/2021 9:08 AM EDT Patient identified by name and date of . Sandie Becerril is here for a Depo Provera injection. Patient brought medication. Date last injected: 06/01/2021 Depo-Provera, 150 mg, administered IM rightupper quadrant gluteus, Lot # [id number], expiration date 12/03/2022. Depo-Provera was given without incident. Date of last menses: Patient's last menstrual period was 11/14/2019 (approximate). Irregular bleeding - No Menses ceased - Yes STD prevention discussed: Yes Patient instructed to return to clinic on 12 weeks [email or web address]/Depo-Provera%20dosing%20calendar.pdf Provider Yaquelin Gaston. was present in office at time of injection. Haydee Lord RN documented in this encounterPark[facility] Hospital Discharge instructions Patient Education 06/25/2021 18:34:49 [...] Hold for 2 seconds, then slowly lower. 8901-2367 [employer]. [address] [place] [address]. All rights reserved. This information is not [...] or legs Numbness in the groin area 6941-[address] [employer]. [address] [place] [address]. All rights reserved. This information is not intended as a substitute for professional medical care. Always follow yourhealthcare professional's instructions. Follow Up Care 06/25/2021 18:26:41 With:ROSA KEMP MD Address: [address] [place] [phone]- [phone] When:2-4 days [facility] Evaluation + Plan note No data available for this section [facility] Evaluation + Plan note Future Appointments Appointment Date:09/02/2024 09:00:00 AM Scheduled Provider:Apolinar Rivera PT Location:[facility] Appointment Type:PT Outpatient Evaluation [facility] Evdkxffhjm note* Diagnosis Encounter for management and injection of depo-Provera- Primary Surveillance of other previously prescribed contraceptive method documented [facility]* Diagnosis Encounter for gynecological examination (general) (routine) without abnormal findings- Primary Need for prophylactic vaccination/inoculation against viral disease Need for prophylactic vaccination and inoculation against other viral diseases Genital herpes simplex, unspecified site documented in this encounter [facility] note* Diagnosis Onset Date Resolution Status Acute upper respiratory infection acute Contact with or suspected ex posure to other viral communicable disease acute Bilateral sacroiliitis acute Acute maxillary sinusitis, unspecified acute Encounter for screening for COVID-19 acute Left ankle sprain acute Chronic left sacroiliac joint pain chronic [facility] Work Phone: Evaluation note* Diagnosis Encounter for management and injection of depo-Provera- Primary Surveillance of other previously prescribed contraceptive method documented [facility] this [facility]* Diagnosis Onset Date Resolution Status Left ankle sprain acute 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 [facility] Work Phone: Evaluation note* Diagnosis Onset Date Resolution Status Left ankle sprain acute 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 [facility] Work Phone: Evaluation note* Diagnosis Onset Date Resolution Status 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 Lumbar radiculopathy chronic Contact with and (suspected) exposure to other viral communicable diseases acute URI (upper respiratory infection) acute [facility] Work Phone: Evaluation note* Diagnosis Onset Date Resolution Status 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 Lumbar radiculopathy chronic Contact with and (suspected) exposure to other viral communicable diseases acute URI (upper respiratory infection) acute Bipolar disorder chronic Acute cystitis noneactive Influenza A acute [facility] Work Phone: Evaluation note* Diagnosis Surveillance for Depo-Provera contraception- Primary Surveillance of other previously prescribed contraceptive method Encounter for management and injection of depo-Provera Surveillance of other previously prescribed contraceptive method documented in this encounter [facility]* Diagnosis Onset Date Resolution Status Contact with and (suspected) exposure to other viral communicable diseases acute URI (upper respiratory infection) acute Bipolar disorder chronic Acute cystitis noneactive Influenza A acute Acute pharyngitis acute Contact with and (suspected) exposure to other viral communicable diseases acute Migraines chronic [facility] Work Phone: Evaluation note* Diagnosis Onset Date Resolution Status Influenza A acute Acute pharyngitis acute Contact with and (suspected) exposure to other viral communicable diseases acute Migraines chronic Lumbosacral facet joint syndrome acute Pain, dental noneactive [facility] Work Phone: Evaluation note* Diagnosis Onset Date Resolution Status Acute pharyngitis acute Contact with and (suspected) exposure to other viral communicable diseases acute Migraines chronic Lumbosacral facet joint syndrome acute Pain, dental noneactive Dental infection acute [facility] Work Phone: Evaluation note* Diagnosis Acute cystitis with hematuria- Primary Acute cystitis Dysmenorrhea Encounter for surveillance of other contraceptive documented in this encounter [facility]* Diagnosis Encounter for management and injection of depo-Provera- Primary Surveillance of other previously prescribed contraceptive method [facility]* Diagnosis Pain in joint, multiple sites documented in this [facility]* Diagnosis Pain in joint, multiple sites- Primary Vitamin D deficiency Unspecified vitamin D deficiency Low back pain, unspecified back pain laterality, unspecified chronicity, unspecified whether sciatica present documented in this encounter [facility]* Diagnosis Pain in joint, multiple sites documented in this [facility]* Diagnosis Chronic bilateral low back pain with left-sided sciatica- Primary Pain in joint, multiple sites documented in this encounter [facility]* Diagnosis Encounter for management and injection of depo-Provera- Primary Surveillance of other previously prescribed contraceptive method documented [facility] this [facility] Diagnosis Genital herpes simplex, unspecified site documented in this encounter [facility] Diagnosis Encounter for gynecological [...] complication Unspecified asthma [facility] Diagnosis Acute pain of left knee documented in this encounter [facility] Diagnosis Encounter for Depo-Provera contraception- Primary Surveillance of other previously prescribed contraceptive method [facility] Genital herpes simplex, unspecified site documented [facility] this [facility] Additional Instructions Seek medical attention if any new or worsening of symptoms.[facility] Work Phone: Hospital Discharge instructions Additional Instructions Stop the nitrofurantoin. Start the Bactrim.[facility] Work Phone: Hospital Discharge instructions Additional Instructions You may take Imodium as needed for your diarrheaWooMer[facility] Work Phone: Hospital Discharge instructions No data available for this section [facility] Progress note No data available for this section [facility] Reason for referral (narrative)* Diagnostic Procedure Only (Routine) - Closed Specialty Diagnoses / Procedures Referred By Contac t Referred To Contact XR IMAGING Diagnoses Pain in joint, multiple sites Procedures XR HIP BILATERAL 5V PEL/AP/LAT EACH HIP RADEX HIPS BILATERAL WITH PELVIS MINIMUM 5 VIEWS Lis Freedman MD [address] [place] [address] [place] [address] Referral ID Status Reason Start Date Expiration Date V isits Requested Visits Authorized [id number] Closed Auto-Generate d Referral 06/18/2023 07/17/2024 1 1 * Diagnostic Procedure Only (Routine) - Closed Specialty Diagnoses / Procedures Referred By Contac t Referred To Contact XR IMAGING Diagnoses Pain in joint, multiple sites Procedures XR SACROILIAC JOINTS 2V AP PELVIS/FERGUESON RADIOLOGIC EXAMINATION SACROILIAC JNTS <3 VIEWS Lis Freedman MD [address] [place] [address] [place] [address] Referral ID Status Reason Start Date Expiration Date V isits Requested Visits Authorized [id number] Closed Auto-Generate d Referral 06/18/2023 07/17/2024 1 1 * Diagnostic Procedure Only (Routine) - Closed Specialty Diagnoses / Procedures Referred By Contac t Referred To Contact XR IMAGING Diagnoses Pain in joint, multiple sites Procedures XR LUMBAR GENERAL 3V AP/LAT/L5-S1 RADEX SPINE LUMBOSACRAL 2/3 VIEWS Lis Freedman MD [address] [place] [address] [place] [address] Referral ID Status Reason Start Date Expiration Date V isits Requested Visits Authorized [id number] Closed Auto-Generate d Referral 06/18/2023 07/17/2024 1 1 * Diagnostic Procedure Only (Routine) - Closed Specialty Diagnoses / Procedures Referred By Contac t Referred To Contact XR IMAGING Diagnoses Pain in joint, multiple sites Procedures XR KNEE SURVEY ARTHRITIS 1V AP BILATERAL RADIOLOGIC EXAM BOTH KNEES STANDING ANTEROPOST Lis Freedman MD [address] [place] [address] [place] [address] Referral ID Status Reason Start Date Expiration Date V isits Requested Visits Authorized [id number] Closed Auto-Generate d Referral 06/18/2023 07/17/2024 1 1 * Diagnostic Procedure Only (Routine) - Closed Specialty Diagnoses / Procedures Referred By Contac t Referred To Contact XR IMAGING Diagnoses Pain in joint, multiple sites Procedures XR HAND GENERAL 3V PA/LAT/OBL RIGHT RADEX HAND MINIMUM 3 VIEWS Lis Freedman MD [address] [place] [address] [place] [address] Referral ID Status Reason Start Date Expiration Date V isits Requested Visits Authorized [id number] Closed Auto-Generate d Referral 06/18/2023 07/17/2024 1 1 * Diagnostic Procedure Only (Routine) - Closed Specialty Diagnoses / Procedures Referred By Contac t Referred To Contact XR IMAGING Diagnoses Pain in joint, multiple sites Procedures XR HAND GENERAL 3V PA/LAT/OBL LEFT RADEX HAND MINIMUM 3 VIEWS Lis Freedman MD [address] [place] [address] [place] [address] Referral ID Status Reason Start Date Expiration Date V isits Requested Visits Authorized [id number] Closed Auto-Generate d Referral 06/18/2023 07/17/2024 [facility] Diagnostic Procedure Only (Routine) - Closed Specialty Diagnoses / Procedures Referred By Contac t Referred To Contact XR IMAGING Diagnoses Pain in joint, multiple sites Procedures XR HIP BILATERAL 5V PEL/AP/LAT EACH HIP RADEX HIPS BILATERAL WITH PELVIS MINIMUM 5 VIEWS Lis Freedman MD [address] [place] [address] [place] [address] Referral ID Status Reason Start Date Expiration Date V isits Requested Visits Authorized [id number] Closed Auto-Generate d Referral 06/18/2023 07/17/2024 1 1 * Diagnostic Procedure Only (Routine) - Closed Specialty Diagnoses / Procedures Referred By Contac t Referred To Contact XR IMAGING Diagnoses Pain in joint, multiple sites Procedures XR SACROILIAC JOINTS 2V AP PELVIS/FERGUESON RADIOLOGIC EXAMINATION SACROILIAC JNTS <3 VIEWS Lis Freedman MD [address] [place] [address] [place] [address] Referral ID Status Reason Start Date Expiration Date V isits Requested Visits Authorized [id number] Closed Auto-Generate d Referral 06/18/2023 07/17/2024 1 1 * Diagnostic Procedure Only (Routine) - Closed Specialty Diagnoses / Procedures Referred By Contac t Referred To Contact XR IMAGING Diagnoses Pain in joint, multiple sites Procedures XR LUMBAR GENERAL 3V AP/LAT/L5-S1 RADEX SPINE LUMBOSACRAL 2/3 VIEWS Lis Freedman MD [address] [place] [address] [place] [address] Referral ID Status Reason Start Date Expiration Date V isits Requested Visits Authorized [id number] Closed Auto-Generate d Referral 06/18/2023 07/17/2024 1 1 * Diagnostic Procedure Only (Routine) - Closed Specialty Diagnoses / Procedures Referred By Contac t Referred To Contact XR IMAGING Diagnoses Pain in joint, multiple sites Procedures XR KNEE SURVEY ARTHRITIS 1V AP BILATERAL RADIOLOGIC EXAM BOTH KNEES STANDING ANTEROPOST Lis Freedman MD [address] [place] [address] [place] [address] Referral ID Status Reason Start Date Expiration Date V isits Requested Visits Authorized [id number] Closed Auto-Generate d Referral 06/18/2023 07/17/2024 1 1 * Diagnostic Procedure Only (Routine) - Closed Specialty Diagnoses / Procedures Referred By Contac t Referred To Contact XR IMAGING Diagnoses Pain in joint, multiple sites Procedures XR HAND GENERAL 3V PA/LAT/OBL RIGHT RADEX HAND MINIMUM 3 VIEWS Lis Freedman MD [address] [place] [address] [place] [address] Referral ID Status Reason Start Date Expiration Date V isits Requested Visits Authorized [id number] Closed Auto-Generate d Referral 06/18/2023 07/17/2024 1 1 * Diagnostic Procedure Only (Routine) - Closed Specialty Diagnoses / Procedures Referred By Contac t Referred To Contact XR IMAGING Diagnoses Pain in joint, multiple sites Procedures XR HAND GENERAL 3V PA/LAT/OBL LEFT RADEX HAND MINIMUM 3 VIEWS Lis Freedman MD [address] [place] [address] [place] [address] Referral ID Status Reason Start Date Expiration Date V isits Requested Visits Authorized [id number] Closed Auto-Generate d Referral 06/18/2023 07/17/2024 1 1 * Transition of Care (Routine) - Ref Not Required Specialty Diagnoses / Procedures Referred By Contac t Referred To Contact Pain Management Diagnoses Pain in joint, multiple sites Procedures CONSULT TO PAIN MGT Lis Freedman MD [address] [facility] [address] [place] [address] Referral ID Status Reason Start Date Expiration Date Visits Requested Visits Authorized [id number] Ref Not Required PCP Requested Referral 06/18/2023 2023 3 3 [facility] for referral (narrative)* Diagnostic Procedure Only (Urgent) - Closed Specialty Diagnoses / Procedures Referred By Contac t Referred To Contact XR IMAGING Diagnoses Acute pain of left knee Procedures XR KNEE GENERAL 4V AP BOTH/PA BOTH/LAT/MERC LEFT RADIOLOGIC EXAM KNEE COMPLETE 4/MORE VIEWS Vernon Calvin APRN.ANNE [address] [place] [address] [place] [address] Referral ID Status Reason Start Date Expiration Date V isits Requested Visits Authorized [id number] Closed Auto-Generate d Referral 05/30/2023 06/28/2024 1 1 [facility] for visit Narrative* Outpatient Procedure (Routine) - Closed Specialty Diagnoses / Procedures Referred By Contac t Referred To Contact Radiology / [facility] Diagnoses Chronic viral hepatitis C us liver elastography, order to be faxed by [email or web address] Procedures LIVER ELASTOGRAPHY W/O IMAG W/I&R US ELASTOGRAPHY Austin Casey MD [address] [place] [address] [facility] [address] [place] [address] Referral ID Status Reason Start Date Expiration Date Visits Re quested Visits Authorized [id number] Closed 11/29/2022 05/06/2023 1 1 [facility] for visit Narrative* Outpatient Procedure (Routine) - Closed Specialty Diagnoses / Procedures Referred By Contac t Referred To Contact Radiology / [facility] Diagnoses Chronic viral hepatitis C liver elastography, order stacy faxed, Procedures US ABDOMINAL REAL TIME W/IMAGE DOCUMENTATION US ABDOMEN COMPLETE Austin Casey MD [address] [place] [address] [facility] [place] [id number] [facility] [place] [place] [address] Referral ID Status Reason Start Date Expiration Date Visits Re quested Visits Authorized [id number] Closed 11/29/2022 05/06/2023 1 1 [facility] for visit Narrative* Diagnostic Procedure Only (Routine) - Closed Specialty Diagnoses / Procedures Referred By Contac t Referred To Contact XR IMAGING Diagnoses Pain in joint, multiple sites Procedures XR HIP BILATERAL 5V PEL/AP/LAT EACH HIP RADEX HIPS BILATERAL WITH PELVIS MINIMUM 5 VIEWS Lis Freedman MD [address] [address] [place] [address] Referral ID Status Reason Start Date Expiration Date V isits Requested Visits Authorized [id number] Closed Auto-Generate d Referral 06/18/2023 07/17/2024 1 1 [facility] for visit Narrative* Diagnostic Procedure Only (Urgent) - Closed Specialty Diagnoses / Procedures Referred By Contac t Referred To Contact XR IMAGING Diagnoses Acute pain of left knee Procedures XR KNEE GENERAL 4V AP BOTH/PA BOTH/LAT/MERC LEFT RADIOLOGIC EXAM KNEE COMPLETE 4/MORE VIEWS Vernon Calvin, ROCHELLE.[employer] MIXER ASSEMBLER [address] [place] [address] [place] [address] Referral ID Status Reason Start Date Expiration Date V isits Requested Visits Authorized [id number] Closed Auto-Generate d Referral 05/30/2023 06/28/2024 1 1 [facility] Medications Administered Section Active Administered Medications - [...] FoundDocuments on File Type Date Recorded Patient Bead Filler Expl anation Advance Directive(s) 05/19/2017 7:13 PM Advance Directive Response Recorded Date/ Time Living Will No December 11, 2021 3:21pm Power of Insurance Compliance Analyst No December 11 3:21pm Advance Directive Response Recorded Date/ Time Living Will No January 18, 2022 4:31pm Power of Insurance Compliance Analyst No January 4:31pm Advance Directive Response Recorded Date/ Time Living Will No March 01 2:41pm Power of Insurance Compliance Analyst No March 01, 2022 2:41pm Advance Directive Response Recorded Date/ Time Living Will No March 17, 2 022 5:52pm Power of Insurance Compliance Analyst No March 17, 2022 5:52pm Advance Directive Response Recorded Date/ Time Living Will No March 20, 2 6:39pm Power of Insurance Compliance Analyst No March 20, 2022 6:39pm Advance Directive Response Recorded Date/ Time Living Will No April 21, 2 11:14am Power of Insurance Compliance Analyst No April 21, 2022 11:14am Advance Directive Response Recorded Date/ Time Living Will No May 06, 2:23pm Power of Insurance Compliance Analyst No May 06, 2022 2:23pm Advance Directive Response Recorded Date/ Time Living Will No June 10 7:07pm Power of Insurance Compliance Analyst No June 10, 2022 7:07pm Advance Directive Response Recorded Date/ Time Living Will No July 21, 2022 10:06am Power of Insurance Compliance Analyst No July 21 10:06am Advance Directive Response Recorded Date/ Time Living Will No August 14, 2022 7:46pm Power of Insurance Compliance Analyst No August 14 7:46pm Chief Complaint and [...] HEADACHE ABD PAIN, NAUSEA uti, abd pain [facility] ER FU/ FEELS LIKE SHES WORSE SORE [...] HEADACHE ABD PAIN, NAUSEA uti, abd pain [facility] ER FU/ FEELS LIKE SHES WORSE SORE THROAT, COUGH, FEVER, ACHES REEVES SORE THROAT Reason for Visit Chronic left sacroil iac joint pain Chronic left sacroiliac joint pain Lumbar radiculopathy Contact with and (suspected) exposure to other viral communicable diseases URI (upper respiratory infection) Bipolar disorder Acute cystitis Influenza A Chief Complaint FEVER/COVID TEST HEADACHE ABD PAIN, NAUSEA uti, abd pain [facility] ER FU/ FEELS LIKE SHES WORSE SORE [...] HIGH COMPLEX 45 MINS Anna Marie Pérez APRN.FOOD MIXER ASSEMBLER [address] [place] [address] [facility] [address] [place] [address] Referral ID Status Reason Start Date Expiration Date Visits Requested Visits Authorized [id number] Pending Review Auto-Generat ed Referral 07/13/2023 07/12/2024 1 1 Summary Purpose Additional Source Comments Source Comments (unrecognize d section and content) In the event this informatio n is protected by the Federal Confidentiality of Alcohol and Drug Abuse Patient Records regulations: The Federal rules restrict any use of the information to criminally investigate or prosecute any alcohol or drug abuse patient.[facility] the event this information is protected by the Federal Confidentiality of Alcohol and Drug Abuse Patient Records regulations: The Federal rules restrict any use of the information to criminally investigate or prosecute any alcohol or drug abuse patient.[facility] the event this information is protected by the Federal Confidentiality of Alcohol and Drug Abuse Patient Records regulations: The Federal rules restrict any use of the information to criminally investigate or prosecute any alcohol or drug abuse patient.[facility] the event this information is protected by the Federal Confidentiality of Alcohol and Drug Abuse Patient Records regulations: The Federal rules restrict any use of the information to criminally investigate or prosecute any alcohol or drug abuse patient.[facility] the event this information is protected by the Federal Confidentiality of Alcohol and Drug Abuse Patient Records regulations: The Federal rules restrict any use of the information to criminally investigate or prosecute any alcohol or drug abuse patient.[facility] the event this information is protected by the Federal Confidentiality of Alcohol and Drug Abuse Patient Records regulations: The Federal rules restrict any use of the information to criminally investigate or prosecute any alcohol or drug abuse patient.[facility] the event this information is protected by the Federal Confidentiality of Alcohol and Drug Abuse Patient Records regulations: The Federal rules restrict any use of the information to criminally investigate or prosecute any alcohol or drug abuse patient.[facility] the event this information is protected by the Federal Confidentiality of Alcohol and Drug Abuse Patient Records regulations: The Federal rules restrict any use of the information to criminally investigate or prosecute any alcohol or drug abuse patient.[facility] the event this information is protected by the Federal Confidentiality of Alcohol and Drug Abuse Patient Records regulations: The Federal rules restrict any use of the information to criminally investigate or prosecute any alcohol or drug abuse patient.[facility] the event this information is protected by the Federal Confidentiality of Alcohol and Drug Abuse Patient Records regulations: The Federal rules restrict any use of the information to criminally investigate or prosecute any alcohol or drug abuse patient.[facility] the event this information is protected by the Federal Confidentiality of Alcohol and Drug Abuse Patient Records regulations: The Federal rules restrict any use of the information to criminally investigate or prosecute any alcohol or drug abuse patient.[facility] the event this information is protected by the Federal Confidentiality of Alcohol and Drug Abuse Patient Records regulations: The Federal rules restrict any use of the information to criminally investigate or prosecute any alcohol or drug abuse patient.[facility] the event this information is protected by the Federal Confidentiality of Alcohol and Drug Abuse Patient Records regulations: The Federal rules restrict any use of the information to criminally investigate or prosecute any alcohol or drug abuse patient.[facility] the event this information is protected by the Federal Confidentiality of Alcohol and Drug Abuse Patient Records regulations: The Federal rules restrict any use of the information to criminally investigate or prosecute any alcohol or drug abuse patient.[facility] the event this information is protected by the Federal Confidentiality of Alcohol and Drug Abuse Patient Records regulations: The Federal rules restrict any use of the information to criminally investigate or prosecute any alcohol or drug abuse patient.[facility] the event this information is protected by the Federal Confidentiality of Alcohol and Drug Abuse Patient Records regulations: The Federal rules restrict any use of the information to criminally investigate or prosecute any alcohol or drug abuse patient.[facility] Hospital[facility] the event this information is protected by the Federal Confidentiality of Alcohol and Drug Abuse Patient Records regulations: The Federal rules restrict any use of the information to criminally investigate or prosecute any alcohol or drug abuse patient.[facility] the event this information is protected by the Federal Confidentiality of Alcohol and Drug Abuse Patient Records regulations: The Federal rules restrict any use of the information to criminally investigate or prosecute any alcohol or drug abuse patient.[facility] the event this information is protected by the Federal Confidentiality of Alcohol and Drug Abuse Patient Records regulations: The Federal rules restrict any use of the information to criminally investigate or prosecute any alcohol or drug abuse patient.[facility] the event this information is protected by the Federal Confidentiality of Alcohol and Drug Abuse Patient Records regulations: The Federal rules restrict any use of the information to criminally investigate or prosecute any alcohol or drug abuse patient.[facility] the event this information is protected by the Federal Confidentiality of Alcohol and Drug Abuse Patient Records regulations: The Federal rules restrict any use of the information to criminally investigate or prosecute any alcohol or drug abuse patient.[facility] Hospital[facility] the event this information is protected by the Federal Confidentiality of Alcohol and Drug Abuse Patient Records regulations: The Federal rules restrict any use of the information to criminally investigate or prosecute any alcohol or drug abuse patient.[facility] the event this information is protected by the Federal Confidentiality of Alcohol and Drug Abuse Patient Records regulations: The Federal rules restrict any use of the information to criminally investigate or prosecute any alcohol or drug abuse patient.[facility] the event this information is protected by the Federal Confidentiality of Alcohol and Drug Abuse Patient Records regulations: The Federal rules restrict any use of the information to criminally investigate or prosecute any alcohol or drug abuse patient.[facility] the event this information is protected by the Federal Confidentiality of Alcohol and Drug Abuse Patient Records regulations: The Federal rules restrict any use of the information to criminally investigate or prosecute any alcohol or drug abuse patient.[facility] Reason for Visit (unrecogniz ed section and [...] CONSULT TO PAIN MGT Lis Freedman MD [address] [place] [address] Referral ID Status Reason Start Date Expiration Date Visits Requested Visits Authorized [id number] Ref Not Required PCP Requested Referral 06/18/2023 2023 3 3 Reason Comments New Patient Evaluation Back Pain Hip Pain Leg Pain Left Specialty Diagnoses / Procedures Referred By Contac t Referred To Contact Pain Management Diagnoses Pain in joint, multiple sites Procedures CONSULT TO PAIN MGT Lis Freedman MD [address] [place] [address] Reason Onset Date Comments Depo Provera Injection [...] Provider, Refer ring Provider Active Woody Encinas FRUIT PEELER, FRUIT PEELER-C Attending Provider Active Team Status: Inactive Member Role Status Dates Dr. Rosa Kemp MD Primary Care Provider, Refer ring Provider Active Drake MATUTE PA Attending Provider Active Team Status: Inactive Member Role Status Dates Dr. Rosa Kemp MD Primary Care Provider, Refer ring Provider Active Renny MATUTE PA Attending Provider Active Team Status: Inactive [...] MD Primary Care Provider Active Woody Encinas FRUIT PEELER, FRUIT PEELER-C Attending Provider Active Team Status: Inactive Member Role Status Dates Dr. Rosa Kemp MD Primary Care Provider Active Dr. Kaleb Molina DO Emergency Provider Active Team Status: Inactive Member Role Status Dates Dr. Rosa Kemp MD Primary Care Provider Active Woody Encinas FRUIT PEELER, FRUIT PEELER-C Attending Provider Active Team Status: Inactive Member Role Status Dates Dr. Rosa Kemp MD Primary Care Provider Active Dr. Isma Pal MD Emergency Provider Active Certified Orthotist/Pedorthist Relationship Specialty Start Date End Date Rosa Kemp MD [address] [place] [address] PCP - General Internal Medicine 05/30/23 Certified Orthotist/Pedorthist Relationship Specialty Start Date End Date Rosa Kemp MD [address] [place] [address] PCP - General Internal Medicine 05/30/23 Certified Orthotist/Pedorthist Relationship Specialty Start Date End Date Rosa Kemp MD [address] [place] [address] PCP - General Internal Medicine 05/30/23 Certified Orthotist/Pedorthist Relationship Specialty Start Date End Date Rosa Kemp MD [address] [place] [address] PCP - General Internal Medicine 05/30/23 Certified Orthotist/Pedorthist Relationship Specialty Start Date End Date Rosa Kemp MD [address] [place] [address] PCP - General Internal Medicine 05/30/23 Certified Orthotist/Pedorthist Relationship Specialty Start Date End Date Rosa Kemp MD [address] [place] [address] PCP - General Internal Medicine 05/30/23 Certified Orthotist/Pedorthist Relationship Specialty Start Date End Date Rosa Kemp MD [address] [place] [address] PCP - General Internal Medicine 05/30/23 Certified Orthotist/Pedorthist Relationship Specialty Start Date End Date Rosa Kemp MD [address] [place] [address] PCP - General Internal Medicine 05/30/23 Certified Orthotist/Pedorthist Relationship Specialty Start Date End Date Rosa Kemp MD [address] [place] [address] PCP - General Internal Medicine 05/30/23 Certified Orthotist/Pedorthist Relationship Specialty Start Date End Date Rosa Kemp MD [address] [place] [address] PCP - General Internal Medicine 05/30/23 Certified Orthotist/Pedorthist Relationship Specialty Start Date End Date Rosa Kemp MD [address] [place] [address] PCP - General Internal Medicine 05/30/23 Certified Orthotist/Pedorthist Relationship Specialty Start Date End Date Rosa Kemp MD [address] [place] [address] PCP - General Internal Medicine 05/30/23 Certified Orthotist/Pedorthist Relationship Specialty Start Date End Date Rosa Kemp MD [address] [place] [address] PCP - General Internal Medicine 05/30/23 Certified Orthotist/Pedorthist Relationship Specialty Start Date End Date Rosa Kemp MD [address] [place] [address] PCP - General Internal Medicine 05/30/23 Certified Orthotist/Pedorthist Relationship Specialty Start Date End Date Rosa Kemp MD [address] [place] [address] PCP - General Internal Medicine 05/30/23 Care Team (unrecognized sect ion and content) Care Team Personnel Name: ROSA KEMP MD Member Role: Primary Care Physician Address: Address: [address] [place] [address] [address] [place] [address]- Care Team Personnel Name: ROSA KEMP MD Member Role: Primary Care Physician Address: Address: [address] [place] [address] [place] [address]- Care Team Personnel Name: ROSA KEMP MD Member Role: Primary Care Physician Address: Address: [address] [place] [address] [place] [address]- Care Team Personnel Name: ROSA KEMP MD Member Role: Primary Care Physician Address: Address: [address] [place] [address] [place] [id number]- Name: SAM MACIAS MD Position: ED Physician Member Role: Attending Physician Address: Address: [facility] [address] [place] [address] Goals (unrecognized section and content) Goals may be documented in a n alternate section INFORMATION SOURCE (unrecogn ized section and content) DATE CREATED AUTHOR 10/11/2023 [facility] DATE CREATED AUTHOR AUTHOR'S ORGANIZ ATION 11/23/2023 [facility] DATE CREATED AUTHOR AUTHOR'S ORGANIZ ATION 02/16/2024 [facility] DATE CREATED AUTHOR AUTHOR'S ORGANIZ ATION 11/24/2024 [facility] DATE CREATED AUTHOR AUTHOR'S ORGANIZ ATION 12/04/2024 [facility] FOR RECORDS PERTAINING TO PATIENTS WHO [...] BE BASED ON THE PRIMARY CLINICAL RECORDS. [facility]. provides no warranty or guarantee of the accuracy or completeness of information in this document.
[2024-12-07 11:39] LABS: Hematocrit 46.8 % (37-47); Hemoglobin 16.2 g/dL (12.0-15.0); Immature Granulocytes Count 0.010 X10^3/uL (0.0-0.0); Mean Corp Hgb Conc 34.6 g/dL (32-36); Mean Corpuscular Volume 85.7 fL (81-99); Mean Platelet Vol. 10.4 fl (6.2-12.0); NRBC Flagged by Analyzer 0 % (0-5); Platelet Count 323 K/mm3 (150-450); RBC Distribution Width CV 12.5 % (11.6-14.6); RBC Distribution Width SD 38.7 fl (35.1-43.9); Red Blood Count 5.46 M/mm3 (4.2-5.4); White Blood Count 5.6 K/mm3 (4.4-11.0)
[2024-12-07 11:47] LABS: Internal QC Validated? YES +Cl - CLEAR BKGD; Pregnancy, Serum, hCG Quali. NEGATIVE Negative; Record Kit Lot#, Serum Preg. 962302
[2024-12-07 12:23] LABS: AST(SGOT) 36 U/L (<=31); Alanine Aminotransfer ALT/SGPT 38 U/L (<=34); Albumin, Serum 4.3 g/dL (3.5-5.0); Alkaline Phosphatase 100 U/L (35-104); Anion Gap 13 (5-15); BUN 5 mg/dL (4-19); BUN/Creat Ratio 5.9 RATIO (10-20); Calcium,Total 9.3 mg/dL (7.6-11.0); Carbon Dioxide 20.2 mmol/L (21.0-32.0); Chloride 105 mmol/L (98-108); Estimated Creatinine Clearance 104.42 ml/min (50-250); Globulin 3.0 g/dL (2.2-4.2); Glucose 124 mg/dL (70-99); Lipase 17 U/L (13-75); Potassium 3.6 mmol/L (3.3-5.1)
[2024-12-07 12:33] VITALS: BP 135/88; PULSE 87; RESP 16; O2SAT 100
[2024-12-07 13:03] VITALS: BP 128/92; PULSE 90; RESP 16; TEMP 36.9; O2SAT 100
== END 2024-12-07 13:07 | disposition home or self-care (01) ==
PROVIDERS: Physician Assistant; Emergency Provider Emergency Medicine; PCP Internal Medicine; Visit Provider Emergency Medicine
DX: R11.2 Nausea with vomiting, unspecified (principal); R19.7 Diarrhea, unspecified; E86.0 Dehydration; I10 Essential (primary) hypertension; F17.290 Nicotine dependence, other tobacco product, uncomplicated; Z79.899 Other long term (current) drug therapy
CPT/HCPCS: 80053; 83690; 84703; 85025; 96361; 96374; 99283; A4216; J2405

== ENCOUNTER → 2025-02-04 | Outpatient (CLI) | payer MEDICAID, SELFPAY ==
--- NOTE | 2025-02-04 10:02 | US_ITS ---
PROCEDURE: ABD LIMITED W/ ELASTOGRAPHY REASON FOR EXAM: FATTY LIVER COMPARISON: None. TECHNIQUE: Procedure Code: [id number] Modality: US Procedure: ABD LIMITED W/ ELASTOGRAPHY Right upper quadrant abdominal ultrasound. Teddy ElastQ Imaging shear wave elastography for non-invasive assessment of liver tissue stiffness. Teddy EPIQ Elite. FINDINGS: LIVER: Size: Diffuse hepatic steatosis. Hepatopetal blood flow is visualized. Length: 16 cm Echotexture: Diffusely echogenic suggesting fatty infiltration Contour: Normal Lesions: None identified Elastography: EQI Med: 6.7 kPa EQI Med Obey: 1.5 m/s IQR/Med: 9.7 % GALLBLADDER: Status post cholecystectomy. COMMON BILE DUCT: Normal CBD measures 4.2 mm. PANCREAS: Obscured by bowel gas. Right kidney: Right kidney measures 8.9 x 4.3 x 4.3 cm with cortical measurement of 1.3 cm. Visualized portions of the right kidney are unremarkable. No right upper quadrant ascites. US/ABD Limited w/ Elastography IMPRESSION: Diffuse hepatic steatosis. Calculated elastography measurements demonstrated EQI Med Obey: 1.5 m/s and IQR/ Med: 9.6 %, consistent with yyariboa-kt-[id number] fibrosis. Reference Values: SRU <1.37 m/s (5.7kPa): No to mild fibrosis 1.37 m/s - 2.2 m/s: Moderate to severe fibrosis >2.2 m/s (15kPa): Significant fibrosis / cirrhosis METAVIR Score F2 or higher: 1.34 m/s (5.7kPa) F3 or higher: 1.55 m/s (7.3kPa) F4: 1.80 m/s (10kPa) * If the IQR/Med is >30%, the variance in the measurements is a large and the a ccuracy of the measurement may be in question. Reading Location: [id number]
== END | disposition home or self-care (01) ==
PROVIDERS: PCP Internal Medicine; Referring Provider Student in an Organized Health Care Education/Training Program; Visit Provider Student in an Organized Health Care Education/Training Program
DX: K76.0 Fatty (change of) liver, not elsewhere classified (principal)
CPT/HCPCS: 76705; 76981

== ENCOUNTER 2025-02-18 05:24 | Day surgery (SDC) | payer MEDICAID, SELFPAY ==
[2025-02-18] VITALS (7 sets, daily range): BP systolic 103–114; BP diastolic 51–73; PULSE 75–92; RESP 16–18; TEMP 36.1–36.8; O2SAT 95–98; BMI 31.6
[2025-02-18] MEDS: Lactated Ringers 1,000 ML 15 ML IV (05:45)
[2025-02-18 05:51] LABS: Internal QC Validated? YES +Cl - CLEAR BKGD; Pregnancy, Urine Negative Negative; Record Kit Lot#,Urine Preg 0000980607
== END 2025-02-18 07:44 | disposition home or self-care (01) ==
LOC: EN 05:24 → AC 05:25
PROVIDERS: Anesthesiology; PCP Internal Medicine; Referring Provider Internal Medicine; Visit Provider Internal Medicine Gastroenterology
PROC: 0DJ08ZZ Inspection of Upper Intestinal Tract, Via Natural or Artificial Opening Endoscopic (ICD-10-PCS; CPT 43235; principal; 2025-02-18 06:25)
DX: R11.2 Nausea with vomiting, unspecified (principal); F31.9 Bipolar disorder, unspecified; R19.7 Diarrhea, unspecified; K30 Functional dyspepsia; R42 Dizziness and giddiness; K31.84 Gastroparesis; R10.85 Abdominal pain of multiple sites; I10 Essential (primary) hypertension; F17.200 Nicotine dependence, unspecified, uncomplicated; F90.9 Attention-deficit hyperactivity disorder, unspecified type; Z79.899 Other long term (current) drug therapy; F41.8 Other specified anxiety disorders; Z90.49 Acquired absence of other specified parts of digestive tract; K22.89 Other specified disease of esophagus; K31.89 Other diseases of stomach and duodenum
CPT/HCPCS: 43239; 81025; 88305; J2405

== ENCOUNTER 2025-03-11 07:43 | Emergency (ER) | payer MEDICAID, SELFPAY ==
[2025-03-11 07:44] VITALS: BP 114/66; PULSE 71; RESP 18; TEMP 37.2; O2SAT 99; BMI 30.7
--- NOTE | 2025-03-11 10:33 | EX.ED.DYSGE1 ---
HPI History of Present Illness Chief Complaint: General Illness PFSH PFS Medical History Polysubstance abuse History of substance abuse Therapeutic drug monitoring Viral URI with cough Loss of hearing Wears glasses Restless legs Back pain Migraine headache Vertigo Hoarseness Heartburn Smoker Asthma Shortness of breath on exertion Leg cramps Tachycardia Knee pain, right ADHD Hypertension Arthritis Hepatitis C Encounter for preventative adult health care examination MDD (major depressive disorder) Suprapubic discomfort Cellulitis of left foot Abnormal kidney function Vertigo Chronic dental pain Contact with and (suspected) exposure to other viral communicable diseases URI (upper respiratory infection) Left ankle sprain Encounter for screening for COVID-19 Acute maxillary sinusitis, unspecified Lumbar radiculopathy Right elbow pain Chronic neck pain Bee sting Chronic low back pain GERD (gastroesophageal reflux disease) PTSD (post-traumatic stress disorder) Anxiety and depression Bipolar 1 disorder Drug abuse Chronic bronchitis Alcohol abuse Home Medications ?Medication ?Instructions ?Recorded ?Last Taken ?Type valacyclovir 500 mg tablet 500 mg PO DAILY 11/05/20 02/17/25 History amlodipine 5 mg tablet 5 mg PO DAILY #90 tabs 12/25/24 02/17/25 Rx cariprazine 3 mg capsule 3 mg PO DAILY #30 caps 12/31/24 02/17/25 Rx hydroxyzine HCl 50 mg tablet 50 mg PO TID #90 tabs 12/31/24 02/17/25 Rx 4% gabapentin, 3% lidocaine, 2% #1 ea 01/06/25 Unknown Rx amitriptyline metoprolol succinate 25 mg 25 mg PO QDAY #30 tabs 01/06/25 Unknown Rx tablet,extended release 24 hr colestipol 1 gram tablet 1 g PO QDAY #30 tabs 01/22/25 02/17/25 Rx duloxetine 60 mg capsule,delayed 60 mg PO DAILY #30 caps 02/02/25 02/17/25 Rx release prazosin 1 mg capsule 1 mg PO QHS PRN NIGHTMARES 02/16/25 Unknown History trazodone 50 mg tablet 50 mg PO QHS PRN sleep 02/16/25 Unknown History atomoxetine 100 mg capsule 100 mg PO DAILY #30 caps 03/03/25 Unknown Rx pantoprazole 40 mg tablet,delayed 40 mg PO QDAY #30 tabs 03/05/25 Unknown Rx release albuterol sulfate 90 mcg/actuation 1 - 2 puff inhalation Q4H PRN PRN 03/11/25 Unknown Rx aerosol inhaler (Ventolin HFA) Wheezing ##1 prednisone 20 mg tablet 40 mg (2 x 20 mg) PO DAILY 5 days 03/11/25 Unknown Rx #10 tabs Allergy/AdvReac Type Severity Reaction Status Date / Time zinc oxide Allergy Unknown Verified 03/11/25 07:44 naproxen (From Naprosyn) AdvReac Nausea Verified 03/11/25 07:44 Family History Unknown Alcoholism Anxiety Asthma Depression Myocardial infarction Suicide attempt Other Cancer Surgical History History of liver biopsy Hx of wisdom tooth extraction Hx laparoscopic cholecystectomy History of cholecystectomy History of laparoscopic appendectomy Social History household members: other Smoking Status: Heavy Smoker (>10/day) alcohol intake: current alcohol intake frequency: a few times a month substance use type: 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, methamphetamine and other what type of physical activity do you participate in: yoga and weight training frequency: 3-4 times per week EXAM Physical Exam Const Vital Signs: 03/11/25 07:44 Temperature 98.9 F Temperature Source Oral Pulse Rate 71 Respiratory Rate 18 Blood Pressure 114/66 Blood Pressure Mean 82 Pulse Ox 99 Oxygen Delivery Method Room Air MDM MDM MDM Narrative Medical decision making narrative: Assessment: The patient is a 34-year-old female with PMH of mild intermittent asthma presenting for one day of cough, diffuse myalgias, headache, chest rash, and subjective fever after multiple sick contacts. Examination shows clear lungs without focal consolidation and stable oxygen saturation. Combined COVID-19, influenza, and RSV swab is negative, and vitals are reassuring, making pneumonia or influenza unlikely. Findings are most consistent with an acute viral bronchitis with baseline mild asthma that is not currently in significant exacerbation. Plan: - Administered symptomatic medications in ED for cough and body aches. - Prescribed albuterol inhaler for rescue use. - Provided prescription for 5-day burst of prednisone to fill if asthma symptoms worsen. - Discharged home with return precautions and instructions for symptomatic care. Diagnostics: - Respiratory viral panel (COVID-19, influenza A/B, RSV) ? negative. Reevaluations: - Reassessed after test results; patient reports slight improvement with ED medications, oxygen saturation remains normal, no respiratory distress. Discharge Plan Triage Chief Complaint: General Illness ED Provider: Alvarez Bingham Dx/Rx/DC Orders Clinical Impression: Acute viral bronchitis, Mild intermittent asthma Instructions: Acute Bronchitis, Asthma Action Plan Prescriptions: New prednisone 20 mg tablet 40 mg PO DAILY 5 Days Qty: 10 0RF albuterol sulfate [Ventolin HFA] 90 mcg/actuation HFA aerosol inhaler 1 - 2 puff inhalation Q4H PRN PRN (Reason: Wheezing) Qty: 1 0RF Continued cariprazine 3 mg capsule 3 mg PO DAILY Qty: 30 2RF hydroxyzine HCl 50 mg tablet 50 mg PO TID Qty: 90 2RF colestipol 1 gram tablet 1 g PO QDAY Qty: 30 2RF metoprolol succinate 25 mg tablet extended release 24 hr 25 mg PO QDAY Qty: 30 3RF (DME) 4% gabapentin, 3% lidocaine, 2% amitriptyline See Rx Instructions .Route .MEDSUPPLY Qty: 1 3RF Rx Instructions: As directed duloxetine 60 mg capsule,delayed release(DR/EC) 60 mg PO DAILY Qty: 30 2RF Rx Instructions: To be taken with with 30 mg capsule for total daily dose of 90 mg. pantoprazole 40 mg tablet,delayed release (DR/EC) 40 mg PO QDAY Qty: 30 2RF valacyclovir 500 mg tablet 500 mg PO DAILY trazodone 50 mg tablet 50 mg PO QHS PRN (Reason: sleep) prazosin 1 mg capsule 1 mg PO QHS PRN (Reason: NIGHTMARES) amlodipine 5 mg tablet 5 mg PO DAILY Qty: 90 0RF Rx Instructions: take 1 tablet by mouth daily atomoxetine 100 mg capsule 100 mg PO DAILY Qty: 30 2RF Primary Care Provider: Navi Kemp Referrals: Navi Kemp MD [Primary Care Provider, Internal Medicine] - 1 Week if not improving Activity Restrictions/Additional Instructions: - Albuterol inhaler prescription sent to your pharmacy; replace your old inhaler and use it as needed for wheezing. - Prednisone burst (5 days) prescription provided; wait 1?2 days, then fill and start only if you?re using albuterol four or more times daily or if wheezing stops you from walking without pausing. - Continue fagv-cvk-[id number] cough and pain relievers to ease your cough and body aches; follow the dosing instructions on the package. - Rest and allow yourself extra sleep; viral bronchitis often feels worst for 4?5 days and then gradually improves. Print Language: Macedonian Disposition Disposition: Home, Self Care
[2025-03-11 10:49] VITALS: BP 132/94; PULSE 69; RESP 16; TEMP 37.2; O2SAT 100
== END 2025-03-11 10:51 | disposition home or self-care (01) ==
PROVIDERS: Emergency Provider Emergency Medicine; PCP Internal Medicine; Visit Provider Emergency Medicine
DX: J20.8 Acute bronchitis due to other specified organisms (principal); J45.20 Mild intermittent asthma, uncomplicated; F17.200 Nicotine dependence, unspecified, uncomplicated
CPT/HCPCS: 87631; 99283

== ENCOUNTER 2025-03-13 18:26 | Emergency (ER) | payer MEDICAID, SELFPAY ==
[2025-03-13 18:28] VITALS: BP 126/96; PULSE 104; RESP 17; TEMP 36.6; O2SAT 99; BMI 32.2
--- NOTE | 2025-03-13 19:55 | ED.RN ---
Pt asked how where she was in the que to be roomed, did not like that she was currently last as her Gro[place] was a 4, all other pt's were higher acuity. Pt states fuck this I'm going to [place], ambulated out of department without difficulty.
== END 2025-03-13 19:55 | disposition left against medical advice (07) ==
LOC: ED 20:05
PROVIDERS: PCP Internal Medicine
DX: Z53.21 Procedure and treatment not carried out due to patient leaving prior to being seen by health care provider (principal)

== ENCOUNTER → 2025-04-08 | Outpatient (CLI) | payer MEDICAID, SELFPAY ==
--- NOTE | 2025-04-08 10:19 | NM_ITS ---
PROCEDURE: GASTRIC EMPTYING STUDY 04/08/2025 REASON FOR EXAM: NASUEA COMPARISON: None TECHNIQUE: Procedure Code: NMGES Modality: NM Procedure: GASTRIC EMPTYING STUDY The patient ingested a standard meal of oatmeal, sulfur colloid and water.. There was no vomiting postprandially. Anterior and posterior planar images of the upper abdomen were obtained for 1 minute immediately following the meal at 1h, 2h and 4h if more than 10% of the activity persisted within the stomach. Regions of interest were drawn, and a geometric mean was used to calculate a [id number]-yssnf. RADIOPHARMACEUTICAL: Technetium sulfur colloid DOSE 1.2mCi FINDINGS: Percent activity remaining in stomach: 1 hour 84 % (normal 37-90%) NM/Gastric Emptying Study IMPRESSION: Abnormal gastric emptying. A 4 hour study is recommended for follow-up. Reading Location: [place] [id number]
--- OUTSIDE RECORDS SUMMARY | 2025-04-08 11:41 | XMS RPT_ITS | CCD ---
Author Organization [facility] Care Team Providers Care Project Controls Scheduler Name Role Phone ROSA KEMP MD Primary Care Physician [phone] Unavailable Primary Care Provider Dr. Rosa Perez Primary Care Provider [phone] Dr. Rosa Kemp Referring Provider [phone] GIOVANI Anderson Attending Provider Dr. Lino Falcon Attending Provider [phone] GIOVANI Agudelo Attending Provider CHARLOTTE Encinas NP Attending Provider [phone]) GIOVANI Bar Attending Provider Unavailab Dr. Rosa Dawson Primary Care Provider 1([phone] [...] GIOVANI Bar Attending Provider Unavailab brittnee Encinas HELIARC WELDER, HELIARC WELDER-C Woody Attending Provider [phone]) GIOVANI Agudelo Attending Provider Dr. Rosa Kemp Primary Care Provider 1(33 0) Dr. Rosa Kemp Referring Provider [phone] Dr. Lino Falcon Attending Provider [phone] GIOVANI Gonzalez Attending Provider Unavailable Primary Care Provider UnavailDr. Rosa Bowling Primary Care Provider 1(33 [phone]) Dr. Rosa Kemp Referring Provider [phone] Ce HELIARC WELDER, HELIARC WELDER-C Woody Attending Provider [phone]) GIOVANI Anderson Attending Provider Dr. Rosa Kemp Primary Care Provider 1(33 0) Dr. Rosa Kemp Referring Provider [phone] GIOVANI Gonzalez Attending Provider GIOVANI Anderson Attending Provider Ce HELIARC WELDER, HELIARC WELDER-C Woody Attending Provider 1(330) Dr. Lino Falcon Attending Provider [phone] Dr. Rosa Kemp Primary Care Provider 1([phone]) Dr. Rosa Kemp Referring Provider [phone] Rosa Kemp MD Primary Care Provider 1([phone]) Rosa Kemp MD Primary Care Provider 1( 30) Rosa Kemp MD Primary Care Provider 1( 30) ANNA MARIE PÉREZ Attending Unavailable LIS FREEDMAN Referring Unavailable ANA LAURA EFEWONGBE B Primary Care Unavailable ANNA MARIE PÉREZ Attending Unavailable SELF Referring Unavailable ANA LAURA, EFEWONGBE B Primary Care Unavailable LIS FREEDMAN Attending Unavailable OLEGHE, EFEWONGBE B Primary Care Unavailable FREEDMAN LIS Referring Unavailable OLEGHE, EFEWONGBE B Primary Care Unavailable FREEDMAN LIS Referring Unavailable OLEGHE, EFEWONGBE B Primary Care Unavailable ANA LAURA CUNHA, EFEWONGBE B Primary Care Unavailab SHEYLA Holt Attending Unavailable SAM MACIAS MD Attending Unavail able ANA LAURA CUNHA, EFEWONGBE B Primary Care Unavailab VERNON Dumont Referring Unavailable OLEGHE, EFEWONGBE B Primary Care Unavailable OLEGHE, EFEWONGBE B Primary Care Unavailable OLEGHE, EFEWONGBE B Primary Care Unavailable PRATIMA KAT Attending Unavailable OLEGHE, EFEWONGBE B Primary Care Unavailable OLEGHE, EFEWONGBE B Primary Care Unavailable CHI RAMIREZ DO Attending Unavailable ANA LAURA CUNHA, EFEWONGBE B Primary Care Unavailab JACOB Coombs DO Attending Unavailable ANA LAURA CUNHA, EFEWONGBE B Primary Care Unavailab brittnee KEMP MD, EFEWONGBE B Primary Care Unavailab ELTON Nava MD Attending Unavailabl sheela KEMP MD, EFEWONGBE B Primary Care Unavailab SAM Rogers MD Attending Unavail able CLAUDIA BONNER PA-C Attending Unavailable ANA LAURA CUNHA, EFEWONGBE B Primary Care Unavailab brittnee KEMP MD, EFEWONGBE B Primary Care Unavailab MYNOR Pineda MD Attending Unavailable JADE TOMLIN MD Attending Unavailable ANA LAURA CUNHA, EFEWONGBE B Primary Care Unavailab SHEYLA Holt DO Attending Unavailable ANA LAURA CUNHA, EFEWONGBE B Primary Care Unavailab CHI Latham DO Attending Unavailable ANA LAURA CUNHA, EFEWONGBE B Primary Care Unavailab brittnee Olebrett, Efewongbe Referring Unavailable John Terry Attending Unavailable Oleghe, Efewongbe Primary Care Unavailable Oleghe, Efewongbe Referring Unavailable Renny Anderson Attending Unavailable Oleghe, Efewongbe Primary Care Unavailable Henry Gibbs Attending Unavailable Oleghe, Efewongbe Primary Care Unavailable Oleghe, Efewongbe Primary Care Unavailable Henry Gibbs Attending Unavailable Nette Diane Attending Unavailable Oleghe, Efewongbe Referring Unavailable Oleghe, Efewongbe Primary Care Unavailable Oleghe, Efewongbe Primary Care Unavailable Alvarez Bingham Attending Unavailable Renny Anderson Attending Unavailable Renny Anderson Referring Unavailable Oleghe, Efewongbe Primary Care Unavailable Oleghe, Efewongbe Attending Unavailable Oleghe, Efewongbe Referring Unavailable Oleghe, Efewongbe Primary Care Unavailable Flo Price Attending Unavailable Oleghe, Efewongbe Primary Care Unavailable Oleghe, Efewongbe Primary Care Unavailable Cristóbal Christiansen Attending Unavailable Oleghe, Efewongbe Referring Unavailable Oleghe, Efewongbe Primary Care Unavailable Raphael, Goyo Attending Unavailable Oleghe, Efewongbe Primary Care Unavailable Tee Willett Attending Unavailable Oleghe, Efewongbe Primary Care Unavailable Provider, Ed Physician Attending Unavailab le Hung Remus Referring Unavailable Ungur Remus Attending Unavailable Oleghe, Efewongbe Primary Care Unavailable Oleghe, Efewongbe Referring Unavailable Renny Anderson Attending Unavailable Oleghe, Efewongbe Primary Care Unavailable Oleghe, Efewongbe Primary Care Unavailable Oleghe, Efewongbe Attending Unavailable Oleghe, Efewongbe Referring Unavailable Oleghe, Efewongbe Primary Care Unavailable Moomaw Silvio Referring Unavailable Moomaw, Silvio Attending Unavailable Nette Diane Attending Unavailable Nette Diane Referring Unavailable Oleghe, Efewongbe Primary Care Unavailable Oleghe, Efewongbe Referring Unavailable Oleghe, Efewongbe Primary Care Unavailable Goyo Lim Attending Unavailable Nette Diane Referring Unavailable Nette Diane Attending Unavailable Oleghe, Efewongbe Primary Care Unavailable Oleghe, Efewongbe Referring Unavailable Oleghe, Efewongbe Primary Care Unavailable Goyo Lim Consulting Unavailable FriendGoyo Attending Unavailable Oleghe, Efewongbe Referring Unavailable Oleghe, Efewongbe Primary Care Unavailable FriendGoyo Attending Unavailable Oleghe, Efewongbe Primary Care Unavailable Raphael, Goyo Attending Unavailable Goyo Lim Referring Unavailable Nette Diane Referring Unavailable Oleghe, Efewongbe Primary Care Unavailable Nette Diane Attending Unavailable Loy Odell Attending Unavailable Oleghe, Efewongbe Primary Care Unavailable Provider, Ed Physician Attending Unavailab le Oleghe, Efewongbe Primary Care Unavailable Oleghe, Efewongbe Primary Care Unavailable Kaleb Molina Attending Unavailable Oleghe, Efewongbe Referring Unavailable Henry Gibbs Attending Unavailable Oleghe, Efewongbe Primary Care Unavailable Oleghe, Efewongbe Primary Care Unavailable Kaleb Molina Attending Unavailable Oleghe, Efewongbe Primary Care Unavailable Henry Gibbs Attending Unavailable Oleghe, Efewongbe Primary Care Unavailable Pratima Alvarado Attending Unavailable Oleghe, Efewongbe Primary Care Unavailable Henry Gibbs Attending Unavailable Nette Diane Attending Unavailable Oleghe, Efewongbe Referring Unavailable Oleghe, Efewongbe Primary Care Unavailable Oleghe, Efewongbe Referring Unavailable Oleghe, Efewongbe Attending Unavailable Oleghe, Efewongbe Primary Care Unavailable Henry Gibbs Attending Unavailable Oleghe, Efewongbe Primary Care Unavailable Oleghe, Efewongbe Referring Unavailable Henry Agudelo Attending Unavailable Oleghe, Efewongbe Primary Care Unavailable Oleghe, Efewongbe Referring Unavailable Oleghe, Efewongbe Primary Care Unavailable Ashley Juarez Attending Unavailable Oleghe, Efewongbe Referring Unavailable Oleghe, Efewongbe Primary Care Unavailable Precious Blakely Attending Unavailable Oleghe, Efewongbe Primary Care Unavailable Pratima Alvarado Attending Unavailable Henry Gibbs Attending Unavailable Oleghe, Efewongbe Primary Care Unavailable Oleghe, Efewongbe Primary Care Unavailable Henry Gibbs Attending Unavailable Oleghe, Efewongbe Attending Unavailable Oleghe, Efewongbe Referring Unavailable Oleghe, Efewongbe Primary Care Unavailable Oleghe, Efewongbe Referring Unavailable Oleghe, Efewongbe Primary Care Unavailable Silvio Dyson Attending Unavailable Oleghe, Efewongbe Primary Care Unavailable Pratima Alvarado Attending Unavailable Oleghe, Efewongbe Primary Care Unavailable Henry Gibbs Attending Unavailable Allergies Allergy Classification Reported Allergen(s) Allergy Type Date of Onset Reaction(s) Facility (20 sources) Naproxen; Translations: [naproxen] Drug Allergy 5 Other: See Comments, Nausea (finding), Intolerance [facility] (20 sources) OTC skin products [Other] Propensity to adverse reactions 0 Other: See Comments [facility] (11 sources) Zinc Oxide Drug Allergy 2 Unknown [facility] (3 sources) otc skin products Propensity to adverse reactions 2 Unknown [facility] Work Phone: (2 sources) OTHER; Translations: [OTHER] Propensity to adverse reactions (disorder) 0 [facility] Repository (1 source) dimethicone / Zinc Oxide; Translations: [zinc oxide topical] Drug Allergy [facility] (1 source) Naproxen Drug Allergy 5 [facility] Repository (1 source) Zinc Oxide Drug Allergy 5 [facility] Repository Medications Current Medications Medication Drug [...] every six hours as needed for pain [place] 325- 5 mg oral tablet Dose = 1 tab(s), Oral, q6h, PRN as needed for pain, X 3 day(s), # 12 tab(s), 0 Refill(s), Back pain, 77.3 Start Date: 06/25/21 Stop Date: 06/28/21 Status: Ordered Start: 06-20-2014 End: 09-05-2022 HYDROcodone-acetaminophen (N ORCO) 5-325 mg per tablet acyclovir 400 mg oral tablet (19 sources) Herpesvirus Nucleoside Analog DNA Polymerase Inhibitor, Herpes Simplex Virus Nucleoside Analog DNA Polymerase Inhibitor, Herpes Zoster Virus Nucleoside Analog DNA Polymerase Inhibitor Start: 10-08-2019 acyclovir 400 mg oral tablet 0 Refill(s) Start Date: 10/08/19 Status: Ordered Medication Dispense Status: Completed Total Allowed Fills: 1 Fills Dispensed: 0 aloe vera topical gel (6 sources) Start: [...] 0 Refill(s) Start Date: 11/19/23 Status: Ordered Medication Dispense Status: Completed Quantity: 30.0 Unit: tab(s) Total Allowed Fills: 1 Fills Dispensed: 0 Start: 03-05-2023 take 1 tablet by mouth [...] 2020 11:47am atomoxetine 80 mg oral capsule (17 sources) Norepinephrine Reuptake Inhibitor Start: 11-19-2023 atomoxetine 80 mg oral capsule Dose : 80 mg = 1 cap(s), Oral, qAM, 0 Refill(s) Start Date: 11/19/23 Status: Ordered Medication Dispense Status: Completed Total Allowed Fills: 1 Fills Dispensed: 0 Start: 08-15-2023 atomoxetine (S TRATTERA) 40 mg [...] 0 Refill(s) Start Date: 10/08/19 Status: Ordered Medication Dispense Status: Completed Total Allowed Fills: 1 Fills Dispensed: 0 Start: 10-08-2019 buPROPion 150 mg/24 hours (XL) oral tablet, extended release 0 Refill(s) Start Date: 10/08/19 Status: Ordered Comment on above: Take 100 mg by mouth once daily. cariprazine 3 mg oral capsule (20 sources) Atypical Antipsychotic Start: 11-19-2023 Vraylar 3 mg oral capsule Dose : 3 mg = 1 cap(s), Oral, qDay, 0 Refill(s) Start Date: 11/19/23 Status: Ordered Medication Dispense Status: Completed Total Allowed Fills: 1 Fills Dispensed: 0 Start: 11-20-2021 Vraylar 3 mg o ral [...] Status: Ordered Condoms Latex Lubricated (CONDOMS-NATALIE LUBRICATED) [facility] (20 sources) Start: 04-04-2011 Condoms Latex Lubricated (CONDOMS-NATALIE LUBRICATED) [facility] [place] Indications: Contraception Use one condom before [...] 0 Refill(s) Start Date: 11/19/23 Status: Ordered Medication Dispense Status: Completed Total Allowed Fills: 1 Fills Dispensed: 0 Start: 10-12-2021 FLUoxetine HCl 20 mg tablet [...] Refill(s), 89.4 Start Date: 11/19/23 Status: Ordered Medication Dispense Status: Completed Total Allowed Fills: 1 Fills Dispensed: 0 Start: 01-20-2022 End: 07-25-2022 take 1 capsule [...] FOOD hydrOXYzine pamoate 25 mg oral capsule (13 sources) Antihistamine Start: hydrOXYzine pamoate 25 mg oral capsule 0 Refill(s) Start Date: 11/19/23 Status: Ordered Medication Dispense Status: Completed Total Allowed Fills: 1 Fills Dispensed: 0 ibuprofen 800 mg oral tablet (20 sources) [...] 0 Refill(s) Start Date: 10/08/19 Status: Ordered Medication Dispense Status: Completed Total Allowed Fills: 1 Fills Dispensed: 0 Start: 08-21-2019 End: 02-13-2020 take 200 mg by mouth once daily Lamotrigine Discontinued 200 MG PO DAILY August 21, 2019 12:00am February 13, 2020 3:35pm Start: 05-06-2019 lamoTRIgine 10 0 mg oral tablet 0 Refill(s) Start Date: 05/06/19 Status: Ordered Medication Dispense Status: Completed Total Allowed Fills: 1 Fills Dispensed: 0 lidocaine 0.05 mg/mg medicated patch (20 sources) [...] daily Lidocaine Discontinued 2 PATCH TOPICAL DAILY July 22, 2019 12:00am August 07, 2019 3:08pm leave on most painful area for up to 12 hrs LORazepam 0.5 mg oral tablet (13 sources) Benzodiazepine Start: 11-19-2023 LORazepam 0.5 mg oral tablet 0 Refill(s), 89.4 Start Date: 11/19/23 Status: Ordered Medication Dispense Status: Completed Total Allowed Fills: 1 Fills Dispensed: 0 Start: 11-19-2023 LORazepam (ATI VAN) 0.5 mg [...] njection (DEPO-PROVERA) Start: 07-21-2021 End: 05-30-2024 medroxyPROGESTERone (DEPO-IN OVERA) 150 mg/mL Inject 1 mL intramuscularly [...] mg tablet Discontinued 4 MG PO Q8H 60 October 13, 2020 12:00am July 22, 2021 [...] mg tablet Discontinued 200 MG PO Q8H 6 March 21, 2022 1:00am May 18, 2022 [...] m g tablet,disintegrating Active 0 .ROUTE .COMPLEX 8 July 31, 2022 11:03am DISSOLVE 1 TABLET ON TOP OF TONGUE AND SWALLOW NEEDED FOR MIGRAINE HEADACHE risperiDONE 2 mg oral tablet (20 sources) Atypical Antipsychotic Start: 05-06-2019 End: 09-05-2022 risperiDONE 2 mg oral tablet 0 Refill(s) Start Date: 05/06/19 Status: Ordered Medication Dispense Status: Completed Total Allowed Fills: 1 Fills Dispensed: 0 Start: 01-29-2019 End: 02-13-2020 take 2 mg [...] Comment on above: Take 1 tablet by ajki th twice daily for 7 days. SUMAtriptan 25 mg oral tablet (20 sources) Serotonin-1b and Serotonin-1d Receptor Agonist Start: 10-08-2019 End: 09-05-2022 SUMAtriptan 25 mg oral tablet 0 Refill(s) Start Date: 10/08/19 Status: Ordered Medication Dispense Status: Completed Total Allowed Fills: 1 Fills Dispensed: 0 Start: 06-17-2019 End: 11-09-2021 take 1 tablet [...] August 22, 2019 August 29, 2019 12:02am [id number] 200 actuat albuterol 0.09 mg/actuat metered dose [...] Status: Ordered famotidine 20 mg oral tablet (19 sources) Histamine-2 Receptor Antagonist Start: 01-23-2021 End: 01-30-2021 Pepcid 20 mg oral tablet Dose : 20 mg = 1 tab(s), Oral, BID, # 14 tab(s), 0 Refill(s) Start Date: 01/23/21 Stop Date: 01/30/21 Status: Ordered Medication Dispense Status: Completed Quantity: 14.0 Unit: tab(s) Total Allowed Fills: 1 Fills Dispensed: 0 fluconazole 150 mg oral tablet (5 sources) [...] Discontinued 100 MG PO TWICE A DAY 10 March 17, 2022 1:00am May 18, 2022 11:23am [...] 0 Refill(s) Start Date: 10/08/19 Status: Ordered Medication Dispense Status: Completed Total Allowed Fills: 1 Fills Dispensed: 0 Comment on above: Oral, BID, 0 Refill(s) [...] Refill(s), 75 Start Date: 11/20/21 Status: Ordered Medication Dispense Status: Completed Total Allowed Fills: 1 Fills Dispensed: 0 Start: 08-24-2020 End: 09-06-2021 valACYclovir 500 mg oral tab let 0 Refill(s), 75 Start Date: 11/20/21 Status: Ordered Comment on above: Take 1 tablet by jaki th once daily. Problems Active Problems Problem Classification Problem Date Documented Da te Episodic/Chronic Abdominal pain (13 sources) Abdominal pain; Translations: [Unspecified abdominal pain] 03-28-2022 Episodic Anxiety disorders (3 sources) Panic disorder without agoraphobia; Translations: [Panic disorder [episodic paroxysmal anxiety]] Onset: 5 Chronic Asthma (16 sources) Asthma; Translations: [Unspecified asthma, uncomplicated] Onset: 4 01-29-2019 Chronic Attention-deficit, conduct, and disruptive behavior disorders (1 source) Attention-deficit hyperactivity disorder, unspecified type; Translations: [Attention-deficit hyperactivity disorder, unspecified type] Onset: 5 Chronic Bacterial infection; unspecified site (11 sources) Tetanus; Translations: [Other tetanus] 05-02-2018 Episodic Biliary tract disease (11 sources) Cholecystitis; Translations: [Cholecystitis, unspecified] 10-15-2019 Episodic Cardiac dysrhythmias (1 source) Tachycardia, unspecified; Translations: [Tachycardia, unspecified] Onset: 5 Episodic Diseases of mouth; excluding dental (1 source) Lesion of oral mucosa; Translations: [Other lesions of oral mucosa] Onset: 3 Episodic Disorders of teeth and jaw (8 sources) Painful mouth; Translations: [Disorder of teeth and supporting structures, unspecified] 07-20-2022 Episodic E Codes: Place of occurrence (1 source) Unspecified place in unspecified non-institutional (private) residence as the place of occurrence of the external cause; Translations: [Unspecified place in unspecified non-institutional (private) residence as the place of occurrence of the external cause] Onset: 5 Episodic E Codes: Struck by; against (1 source) Striking against or struck by other objects, initial encounter; Translations: [Striking against or struck by other objects, initial encounter] Onset: 5 Episodic Esophageal disorders (11 sources) Gastroesophageal reflux [...] (8 sources) Headache; Translations: [Headache] 03-09-2022 Episodic Hepatitis (1 source) Unspecified viral hepatitis C without hepatic coma; Translations: [Unspecified viral hepatitis C without hepatic coma] Onset: 5 Episodic Immunizations and screening for infectious disease [...] [Depression, unspecified] Onset: 5 Nausea and vomiting (18 sources) Nausea; Translations: [Nausea] Onset: 3 03-09-2022 [...] of head, initial encounter] 05-02-2018 Episodic Other bone disease and musculoskeletal deformities (1 source) Solitary bone cyst, other site; Translations: [Solitary bone cyst, other site] Onset: 5 Episodic Other connective tissue disease (2 sources) Pain of left lower leg; Translations: [Pain in left lower leg] Onset: 2 Episodic Other connective tissue disease (1 source) Left achilles tendonitis; Translations: [Achilles tendinitis, left leg] Episodic Other connective tissue disease (2 sources) Disorder of soft tissue; Translations: [Other specified soft tissue disorders] Onset: 5 Episodic Other connective tissue disease (1 source) Cyst of bursa; Translations: [Other bursal cyst, unspecified wrist] Onset: 5 Episodic Other connective tissue disease (1 source) Other bursal cyst, unspecified wrist; Translations: [Other bursal cyst, unspecified wrist] Onset: 5 Episodic Other gastrointestinal disorders (2 sources) Other fecal abnormalities; Translations: [Other fecal abnormalities] Onset: 5 Episodic Other injuries and conditions due to external causes (1 source) Traumatic AND/OR non-traumatic injury; Translations: [Other injury of unspecified body region, initial encounter] Onset: 2 Episodic Other liver diseases (1 source) Fatty (change of) liver, not elsewhere classified; Translations: [Fatty (change of) liver, not elsewhere classified] Onset: 5 Chronic Other nervous system disorders (2 sources) Other [...] for malignant neoplasm of cervix] 11-22-2023 Episodic Poisoning by nonmedicinal substances (11 sources) Bee sting; Translations: [Toxic effect of venom of bees, accidental (unintentional), initial encounter] 01-27-2021 Episodic Skin and subcutaneous tissue infections (1 source) Cellulitis; Translations: [Cellulitis, unspecified] Onset: 2 Episodic Spondylosis; intervertebral disc disorders; other back problems (20 sources) Bilateral arthritis of sacroiliac joint; Translations: [Sacroiliitis, not elsewhere classified] Onset: 5 Chronic Spondylosis; intervertebral disc disorders; other back problems (20 sources) Backache; Translations: [Dorsalgia, unspecified] Onset: 2 Episodic Sprains and strains (20 sources) Sprain of ankle; Translations: [Sprain of unspecified ligament of left ankle, initial encounter] Onset: 2 Episodic Substance-related disorders (3 sources) Nicotine dependence, cigarettes, uncomplicated; Translations: [Other psychoactive substance abuse, uncomplicated] Onset: 5 Chronic Superficial injury; contusion (14 sources) Contusion of right middle finger; Translations: [Contusion of right middle finger without damage to nail, initial encounter] Onset: 5 12-15-2017 Episodic Unclassified (11 sources) No history [...] Classification Problem Date Documented Da te Episodic/Chronic Acute bronchitis (1 source) Acute bronchitis, unspecified; Translations: [Acute bronchitis, unspecified] Onset: 10-14-2024 Episodic Conditions associated with dizziness or vertigo (20 sources) Dizziness; Translations: [Dizziness and giddiness] Onset: 05-29-2011 05-29-2011 Episodic Contraceptive and procreative management (20 sources) Patient encounter status; Translations: [Encounter for surveillance of injectable contraceptive] Onset: 03-15-2023 Episodic Other aftercare (1 source) Encounter for therapeutic drug level monitoring; Translations: [Encounter for therapeutic drug level monitoring] Onset: 07-14-2024 Episodic Other connective tissue disease (1 source) Other specified soft tissue disorders; Translations: [Other specified soft tissue disorders] Onset: 11-10-2024 Episodic Other connective tissue disease (1 source) Achilles tendinitis, left leg; Translations: [Achilles tendinitis, left leg] Onset: 09-10-2024 Episodic Other connective tissue disease (2 sources) Pain in left lower leg; Translations: [Pain in left lower leg] Onset: 09-10-2024 Episodic Other connective tissue disease (1 source) Achilles tendinitis, unspecified leg; Translations: [Achilles tendinitis, unspecified leg] Onset: 08-19-2024 Episodic Other connective tissue disease (1 source) Radial styloid tenosynovitis [de Quervain]; Translations: [Radial styloid tenosynovitis [de Quervain]] Onset: 12-09-2024 Episodic Other gastrointestinal disorders (1 source) Diarrhea, unspecified; Translations: [Diarrhea, unspecified] Onset: 05-08-2024 Episodic Other lower respiratory disease (1 source) Shortness of breath; Translations: [Shortness of breath] Onset: 10-03-2024 Episodic Other non-traumatic joint disorders (1 source) Pain in unspecified joint; Translations: [Pain in joint, multiple sites] Onset: 06-29-2023 Episodic Other non-traumatic joint disorders (2 sources) Pain in left knee; Translations: [Pain in joint, lower leg] Onset: 05-30-2023 05-30-2023 Episodic Other non-traumatic joint disorders (1 source) Pain in left ankle and joints of left foot; Translations: [Pain in left ankle and joints of left foot] Onset: 10-12-2024 Episodic Other non-traumatic joint disorders (1 source) Pain in right wrist; Translations: [Pain in right wrist] Onset: 12-09-2024 Episodic Other upper respiratory disease (1 source) Dysphonia; Translations: [Dysphonia] Onset: 07-14-2024 Episodic Other upper respiratory infections (20 sources) Acute upper respiratory infection; Translations: [Acute upper respiratory infection, unspecified] Onset: 07-14-2024 Episodic Residual codes; unclassified (1 source) Edema, unspecified; Translations: [Edema, unspecified] Onset: 12-09-2024 Episodic Residual codes; unclassified (1 source) Procedure and treatment not carried out due to patient leaving prior to being seen by health care provider; Translations: [Procedure and treatment not carried out due to patient leaving prior to being seen by health care provider] Onset: 10-09-2024 Episodic Substance-related disorders (12 sources) Heroin overdose; Translations: [Poisoning by heroin, accidental (unintentional), initial encounter] Onset: 12-09-2024 05-02-2018 Episodic Results Test Name Value Interpretation Reference Range Facility Emergency Department Summary on 03-11-2025 Emergency Department Summary Normal [facility] M100.678on 03-11-2025 M100.678 Pending SARS-CoV-2 (COVID 19) Negative INFLUENZA A Negative INFLUENZA B Negative RSV PCR Negative [facility] Comment on above: Performed By: #### M 100.678 ####[facility] [id number] [place], [address] Gastroenterology Visit Repor ton 03-05-2025 Gastroenterology Visit Report Normal [facility] EGD Reporton 02-18-2025 EGD Report Normal [facility] MR/OP.PROVATon 02-18-2025 MR/OP.PROVAT Normal [facility] MR/POSTOP.ANEon 02-18-2025 MR/POSTOP.ANE Normal [facility] MR/EUGUIUJT2pp 02-18-2025 MR/POSTOPAN2 Normal [facility] ,Urineon 02-18-2025 Beta HCG ( test) Ql (U) Negative Normal [facility] Comment on above: Result Comment: Very dilute urine specimens, as indicated by a low specificgravity, may not contain communications representative levels of hCG.If is still suspected, a first morning urinespecimen should be collected 48 hours later and tested. Performed By: #### L 400.7600 ####[facility] [address] [place], [address] Surgery Specimen Level Kellen 02-18-2025 Surgery Specimen Level IV Normal [facility] Comment on above: Performed By: #### P SUIV ####[facility] [address] [place], [place], [address] MR/PAT.ANEon 02-16-2025 MR/PAT.ANE [facility] ABD Limited w/ Elastographyo n 02-04-2025 ABD Limited w/ Elastography Normal [facility] MR/BMS.BPon 02-02-2025 MR/BMS.BP Normal [facility] XR HAND MINIMUM 3 VIEWS RIGH Ton 02-01-2025 XR HAND MINIMUM 3 VIEWS RIGHT ORIGINAL EXAMINATION: THREE XRAY VIEWS OF THE RIGHT HAND02/01/2025 9:15 am COMPARISON: None HISTORY: ORDERING SYSTEM PROVIDED HISTORY: Reason for Exam: fifth metacarpal pain and swelling FINDINGS: There is no acute fracture or dislocation. There is no significant soft tissue swelling. There is no radiopaque foreign body. The articulations are intact. IMPRESSION: No acute fracture or dislocation. Interpreted by: Cherelle Encarnacion DO Preliminary Report By: Cherelle Encarnacion DO Electronically signed By Cherelle Encarnacion DO Dictated Date: 02/01/2025 9:22:19 AM Prelim Date: 02/01/2025 9:23:31 AM Sign Date: 02/01/2025 9:23:31 AM Ordering Provider: ELTON NAQVI RP [facility] Gastroenterology Visit Repor ton 01-22-2025 Gastroenterology Visit Report Normal [facility] Internal Medicine Office Vis iton 01-02-2025 Internal Medicine Office Visit Normal [facility] MR/BMS.BPon 12-31-2024 MR/BMS.BP Normal [facility] CBC W/Diff, Automatedon 08-0 Absolute Lymph 0.99 X10 3/uL Normal 0.83-4.51 [facility] Comment on above: Performed By: #### L 100.0100, L500.4050, L501.2450, L700.6800 ####[facility] [address] [place], [address] Absolute Neut 3.9 X10 3/uL Normal 2.0-7.7 [facility] Comment on above: Performed By: #### L 100.0100, L500.4050, L501.2450, L700.6800 ####[facility] [address] [place], [address] Basophils/100 WBC (Bld) 1.1 % High 0-[address] [facility] Comment on above: Performed By: #### L 100.0100, L500.4050, L501.2450, L700.6800 ####[facility] [address] [place], [address] Eosinophils/100 WBC (Bld) 1.3 % Normal 0-5 [facility] Comment on above: Performed By: #### L 100.0100, L500.4050, L501.2450, L700.6800 ####[facility] [address] [place], [address] Erythrocyte distribution width (RBC) [Ratio] 12.5 % Normal 11.6-14.6 [facility] Comment on above: Performed By: #### L 100.0100, L500.4050, L501.2450, L700.6800 ####[facility] [address] [place], [address] Hematocrit (Bld) [Volume fraction] 46.8 % Normal 37-47 [facility] Comment on above: Performed By: #### L 100.0100, L500.4050, L501.2450, L700.6800 ####[facility] [address] [place], [address] Hemoglobin (Bld) [Mass/Vol] 16.2 g/dL High 12.0-15.0 [facility] Comment on above: Performed By: #### L 100.0100, L500.4050, L501.2450, L700.6800 ####[facility] [address] [place], [address] IG% 0.200 Normal 0.0-0.9 [facility] Comment on above: Result Comment: IG% - Immature Granulocytes (promyelocytes, myelocytes andmetamyelocytes) > 1% indicates that a LEFT SHIFT is Present. Performed By: #### L 100.0100, L500.4050, L501.2450, L700.6800 ####[facility] [address] [place], [address] Lymphocytes/100 WBC (Bld) 17.8 % Low 19-41 [facility] Comment on above: Performed By: #### L 100.0100, L500.4050, L501.2450, L700.6800 ####[facility] [address] [place], [address] MCH (RBC) [Entitic mass] 29.7 pg Normal 27.0-32.0 [facility] Comment on above: Performed By: #### L 100.0100, L500.4050, L501.2450, L700.6800 ####[facility] [address] [place], [address] MCHC (RBC) [Mass/Vol] 34.6 g/dL Normal 32-36 [facility] Comment on above: Performed By: #### L 100.0100, L500.4050, L501.2450, L700.6800 ####[facility] [address] [place], [address] MCV (RBC) [Entitic vol] 85.7 fL Normal 81-[address] [facility] Comment on above: Performed By: #### L 100.0100, L500.4050, L501.2450, L700.6800 ####[facility] [address] [place], [address] Monocytes/100 WBC (Bld) 9.9 % Normal 0-10 [facility] Comment on above: Performed By: #### L 100.0100, L500.4050, L501.2450, L700.6800 ####[facility] [address] [place], [address] Neutrophils/100 WBC (Bld) 69.7 % Normal 47-70 [facility] Comment on above: Performed By: #### L 100.0100, L500.4050, L501.2450, L700.6800 ####[facility] [address] [place], [address] Nucleated RBC (Bld) [#/Vol] 0 10*3/uL Normal 0-5 [facility] Comment on above: Performed By: #### L 100.0100, L500.4050, L501.2450, L700.6800 ####[facility] [address] [place], [address] Platelet mean volume (Bld) [Entitic vol] 10.4 fL Normal 6.2-12.0 [facility] Comment on above: Performed By: #### L 100.0100, L500.4050, L501.2450, L700.6800 ####[facility] [address] [place], [address] Platelets (Bld) [#/Vol] 323 10*3/uL Normal 150-450 [facility] Comment on above: Performed By: #### L 100.0100, L500.4050, L501.2450, L700.6800 ####[facility] [address] [place], [address] RBC (Bld) [#/Vol] 5.46 10*6/uL High 4.2-5.4 [facility] Comment on above: Performed By: #### L 100.0100, L500.4050, L501.2450, L700.6800 ####[facility] [address] [place], [address] RDW SD 38.7 fl Normal 35.1-43.9 [facility] Comment on above: Performed By: #### L 100.0100, L500.4050, L501.2450, L700.6800 ####[facility] [address] [place], [address] WBC (Bld) [#/Vol] 5.6 10*3/uL Normal 4.4-11.0 [facility] Comment on above: Performed By: #### L 100.0100, L500.4050, L501.2450, L700.6800 ####[facility] [address] [place], [address] Comprehensive Metabolic Prof [facility] 12-07-2024 Albumin [Mass/Vol] 4.3 g/dL Normal 3.5-5.0 [facility] Comment on above: Performed By: #### L 100.0100, L500.4050, L501.2450, L700.6800 ####[facility] [address] [place], [address] Albumin/Globulin [Mass ratio] 1.5 {ratio} Normal 0.9-2.4 [facility] Comment on above: Performed By: #### L 100.0100, L500.4050, L501.2450, L700.6800 ####[facility] [address] [place], [address] ALK PHOS 100 U/L Normal 35-104 [facility] Comment on above: Performed By: #### L 100.0100, L500.4050, L501.2450, L700.6800 ####[facility] [address] [place], [address] ALT [Catalytic activity/Vol] 38 U/L High <=34 [facility] Comment on above: Performed By: #### L 100.0100, L500.4050, L501.2450, L700.6800 ####[facility] [address] [place], [address] AST [Catalytic activity/Vol] 36 U/L High <=31 [facility] Comment on above: Performed By: #### L 100.0100, L500.4050, L501.2450, L700.6800 ####[facility] [address] [place], [address] Bilirubin [Mass/Vol] 0.38 mg/dL Normal 0.00-1.30 [facility] Comment on above: Performed By: #### L 100.0100, L500.4050, L501.2450, L700.6800 ####[facility] [address] [place], [address] BUN/CRE 5.9 RATIO Low 10-20 [facility] Comment on above: Performed By: #### L 100.0100, L500.4050, L501.2450, L700.6800 ####[facility] [address] [place], [address] Calcium [Mass/Vol] 9.3 mg/dL Normal 7.6-11.0 [facility] Comment on above: Performed By: #### L 100.0100, L500.4050, L501.2450, L700.6800 ####[facility] [address] [place], [address] Chloride [Moles/Vol] 105 mmol/L Normal 98-108 [facility] Comment on above: Performed By: #### L 100.0100, L500.4050, L501.2450, L700.6800 ####[facility] [address] [place], [address] CO2 [Moles/Vol] 20.2 mmol/L Low 21.0-32.0 [facility] Comment on above: Performed By: #### L 100.0100, L500.4050, L501.2450, L700.6800 ####[facility] [address] [place], [address] Creatinine [Mass/Vol] 0.83 mg/dL Normal 0.70-1.20 [facility] Comment on above: Performed By: #### L 100.0100, L500.4050, L501.2450, L700.6800 ####[facility] [address] [place], [address] ECRCL 104.42 ml/min Normal 50-250 [facility] Comment on above: Performed By: #### L 100.0100, L500.4050, L501.2450, L700.6800 ####[facility] [address] [place], [address] GAP 13 Normal 5-15 [facility] Comment on above: Performed By: #### L 100.0100, L500.4050, L501.2450, L700.6800 ####[facility] [address] [place], [address] GFR/1.73 sq M.predicted among non-blacks MDRD (S/P/Bld) [Vol rate/Area] 95 mL/min/{1.73_m2} Normal >60 [facility] Comment on above: Result Comment: mL/m in/1.73m2 CKD-EPI Creatinine Equation (2020) Performed By: #### L 100.0100, L500.4050, L501.2450, L700.6800 ####[facility] [address] [place], [address] Globulin (S) [Mass/Vol] 3.0 g/dL Normal 2.2-4.2 [facility] Comment on above: Performed By: #### L 100.0100, L500.4050, L501.2450, L700.6800 ####[facility] [address] [place], [address] Glucose [Mass/Vol] 124 mg/dL High 70-99 [facility] Comment on above: Performed By: #### L 100.0100, L500.4050, L501.2450, L700.6800 ####[facility] [address] [place], [address] Potassium [Moles/Vol] 3.6 mmol/L Normal 3.3-5.1 [facility] Comment on above: Performed By: #### L 100.0100, L500.4050, L501.2450, L700.6800 ####[facility] [address] [place], [address] Sodium [Moles/Vol] 138 mmol/L Normal 133-145 [facility] Comment on above: Performed By: #### L 100.0100, L500.4050, L501.2450, L700.6800 ####[facility] [address] [place], [address] T PROT 7.3 g/dL Normal 5.9-8.4 [facility] Comment on above: Performed By: #### L 100.0100, L500.4050, L501.2450, L700.6800 ####[facility] [address] [place], [address] Urea nitrogen [Mass/Vol] 5 mg/dL Normal 4-19 [facility] Comment on above: Performed By: #### L 100.0100, L500.4050, L501.2450, L700.6800 ####[facility] [address] [place], [address] Emergency Department Summary on 12-07-2024 Emergency Department Summary Normal [facility] Lipaseon 12-07-2024 Lipase [Catalytic activity/Vol] 17 U/L Normal 13-75 [facility] Comment on above: Result Comment: Kyaw nielsen note:LIPASE revised reference range effective 22.New Lipase methodology. Expected to produce lower valuesthan the previous assay method.NEW Reference Range: 13 - 75 U/L Performed By: #### L 100.0100, L500.4050, L501.2450, L700.6800 ####[facility] [address] [place], [address] ,Serum,hCG Quali.on 12-07-2024 HCG, SERUM QUAL Negative Normal [facility] Comment on above: Performed By: #### L 100.0100, L500.4050, L501.2450, L700.6800 ####[facility] [address] [place], [address] Emergency Department Summary on 11-25-2024 Emergency Department Summary Normal [facility] Urgent Care Visit Reporton 0 11-17-2024 Urgent Care Visit Report Normal [facility] Internal Medicine Office Vis iton 11-14-2024 Internal Medicine Office Visit Normal [facility] .Auto Diffon 11-10-2024 Basophil, Absolute 0.1 10 3/mcL Normal 0.0-0.3 [facility] Comment on above: Performed By: #### T ROPHS, ADIFF, ANEU, BMP, PBNP, GFR, MDW, CBC #### [address] [address] Basophils/100 WBC (Bld) 1.2 % Normal 0.0-2.5 [facility] Comment on above: Performed By: #### T ROPHS, ADIFF, ANEU, BMP, PBNP, GFR, MDW, CBC #### [address] [address] Eosinophil, Absolute 0.1 10 3/mcL Normal 0.0-0.7 [facility] Comment on above: Performed By: #### T ROPHS, ADIFF, ANEU, BMP, PBNP, GFR, MDW, CBC #### [address] [address] Eosinophils/100 WBC (Bld) 3.2 % Normal 0.0-6.0 [facility] Comment on above: Performed By: #### T ROPHS, ADIFF, ANEU, BMP, PBNP, GFR, MDW, CBC #### [address] [address] Lymphocyte, Absolute 1.4 10 3/mcL Normal 0.9-4.3 [facility] Comment on above: Performed By: #### T ROPHS, ADIFF, ANEU, BMP, PBNP, GFR, MDW, CBC #### [address] [address] Lymphocytes/100 WBC (Bld) 32.2 % Normal 20.0-40.0 [facility] Comment on above: Performed By: #### T ROPHS, ADIFF, ANEU, BMP, PBNP, GFR, MDW, CBC #### [address] [address] Monocyte, Absolute 0.4 10 3/mcL Normal 0.1-1.4 [facility] Comment on above: Performed By: #### T ROPHS, ADIFF, ANEU, BMP, PBNP, GFR, MDW, CBC #### [address] [address] Monocytes/100 WBC (Bld) 9.9 % Normal 2.0-13.0 [facility] Comment on above: Performed By: #### T FREDERICK, ADIFF, ANEU, BMP, PBNP, GFR, MDW, CBC #### [address] [address] Neutrophils/100 WBC (Bld) 53.5 % Normal 50.0-75.0 [facility] Comment on above: Performed By: #### T FREDERICK, ADIFF, ANEU, BMP, PBNP, GFR, MDW, CBC #### [address] [address] .GFRon 11-10-2024 Estimated Glomerular Filtration Rate 101 ml/min/1.73sqm Normal [facility] Comment on above: Result Comment: Stages [...] eGFR results. Performed By: #### T FREDERICK, ADIFF, ANEU, BMP, PBNP, GFR, MDW, CBC #### [address] [address] .MDWon 11-10-2024 Monocyte Distribution Width 17.06 Normal 0.00-20.00 [facility] Comment on above: Result Comment: For ED adult patients suspected of sepsis, MDW<=20.0 does not rule out sepsis or risk of sepsis Performed By: #### T FREDERICK, ADIFF, ANEU, BMP, PBNP, GFR, MDW, CBC #### [address] [address] .NEUABSon 11-10-2024 Neutrophil, Absolute 2.3 10 3/mcL Normal 2.3-8.1 [facility] Comment on above: Performed By: #### T ROPHS, ADIFF, ANEU, BMP, PBNP, GFR, MDW, CBC #### [address] [address] ALBon 11-10-2024 Albumin Level 3.1 G/dL Low 3.5-5.0 [facility] Comment on above: Performed By: #### T ROPHS, ADIFF, ANEU, BMP, PBNP, GFR, MDW, CBC #### [address] [address] BMPon 11-10-2024 BUN/Creatinine Ratio 19 ratio Normal 7-27 [facility] Comment on above: Performed By: #### T ROPHS, ADIFF, ANEU, BMP, PBNP, GFR, MDW, CBC #### [address] [address] Calcium [Mass/Vol] 8.9 mg/dL Normal 8.4-10.2 [facility] Comment on above: Performed By: #### T ROPHS, ADIFF, ANEU, BMP, PBNP, GFR, MDW, CBC #### [address] [address] Chloride [Moles/Vol] 105 mmol/L Normal 98-107 [facility] Comment on above: Performed By: #### T ROPHS, ADIFF, ANEU, BMP, PBNP, GFR, MDW, CBC #### [address] [address] CO2 [Moles/Vol] 31 mmol/L High 22-29 [facility] Comment on above: Performed By: #### T ROPHS, ADIFF, ANEU, BMP, PBNP, GFR, MDW, CBC #### [address] [address] Creatinine [Mass/Vol] 0.79 mg/dL Normal 0.51-0.95 [facility] Comment on above: Performed By: #### T ROPHS, ADIFF, ANEU, BMP, PBNP, GFR, MDW, CBC #### [address] [address] Electrolyte Balance 5.0 mEq/L Normal 4.0-15.0 [facility] Comment on above: Performed By: #### T ROPHS, ADIFF, ANEU, BMP, PBNP, GFR, MDW, CBC #### [address] [address] Glucose [Mass/Vol] 85 mg/dL Normal 70-105 [facility] Comment on above: Performed By: #### T ROPHS, ADIFF, ANEU, BMP, PBNP, GFR, MDW, CBC #### [address] [address] Potassium [Moles/Vol] 3.9 mmol/L Normal 3.5-5.1 [facility] Comment on above: Performed By: #### T ROPHS, ADIFF, ANEU, BMP, PBNP, GFR, MDW, CBC #### [address] [address] Sodium [Moles/Vol] 141 mmol/L Normal 136-145 [facility] Comment on above: Performed By: #### T ROPHS, ADIFF, ANEU, BMP, PBNP, GFR, MDW, CBC #### [address] [address] Urea nitrogen [Mass/Vol] 15 mg/dL Normal 7-18 [facility] Comment on above: Performed By: #### T ROPHS, ADIFF, ANEU, BMP, PBNP, GFR, MDW, CBC #### [address] [address] CBCon 11-10-2024 Erythrocyte distribution width (RBC) [Ratio] 13.3 % Normal 11.5-15.5 [facility] Comment on above: Performed By: #### T ROPHS, ADIFF, ANEU, BMP, PBNP, GFR, MDW, CBC #### [address] [address] Hematocrit (Bld) [Volume fraction] 43.0 % Normal 34.0-46.0 [facility] Comment on above: Performed By: #### T ROPDANTE, ADIFF, ANEU, BMP, PBNP, GFR, MDW, CBC #### [place] [address] Hgb 14.4 G/dL Normal 12.0-16.0 [facility] Comment on above: Performed By: #### T ROPDANTE, ADIFF, ANEU, BMP, PBNP, GFR, MDW, CBC #### [place] [address] MCH (RBC) [Entitic mass] 29.4 pg Normal 27.0-33.0 [facility] Comment on above: Performed By: #### T ROPDANTE, ADIFF, ANEU, BMP, PBNP, GFR, MDW, CBC #### [place] [address] MCHC 33.5 G/dL Normal 32.0-36.0 [facility] Comment on above: Performed By: #### T ROPDANTE, ADIFF, ANEU, BMP, PBNP, GFR, MDW, CBC #### [place] [address] MCV (RBC) [Entitic vol] 87.9 fL Normal 80.0-99.0 [facility] Comment on above: Performed By: #### T ROPDANTE, ADIFF, ANEU, BMP, PBNP, GFR, MDW, CBC #### [place] [address] Platelet 299 10 3/mcL Normal 150-450 [facility] Comment on above: Performed By: #### T ROPHS, ADIFF, ANEU, BMP, PBNP, GFR, MDW, CBC #### [place] [address] Platelet mean volume (Bld) [Entitic vol] 8.6 fL Normal 6.6-10.5 [facility] Comment on above: Performed By: #### T ROPHS, ADIFF, ANEU, BMP, PBNP, GFR, MDW, CBC #### [facility] [address] [place], [place] [address] RBC 4.89 10 6/mcL Normal 4.10-5.30 [facility] Comment on above: Performed By: #### T ROPHS, ADIFF, ANEU, BMP, PBNP, GFR, MDW, CBC #### [facility] [address] [place], [place] [address] WBC 4.3 10 3/mcL Low 4.5-10.8 [facility] Comment on above: Performed By: #### T ROPHS, ADIFF, ANEU, BMP, PBNP, GFR, MDW, CBC #### [place] [id number] [place], [place] [address] LABORATORYOrdered By: SYSTEM SYSTEM on 11-10-2024 Albumin [...] ng/L Male: 0-76 ng/L Testing performed on [employer] using a homogeneous sandwich chemiluminescent immunoassay based on [employer] technology. Urea nitrogen [Mass/Vol] 15 mg/dL Normal 7 - 18 mg/dL AO ADM SS Urea nitrogen/Creatinine [Mass ratio] 19 ratio Normal 7 - 27 ratio AO ADM SS WBC (Bld) [#/Vol] 4.3 103/mcL Low 4.5 - 10.8 10^3/mcL AO Workflow SS PBNPon 11-10-2024 Natriuretic peptide B (Bld) [Mass/Vol] 219 pg/mL High 0-125 [facility] Comment on above: Result Comment: NT-p roBNP results of less than 300 pg/mL effectively rules out acute congestive heart failure with 99% negative predictive value. Performed By: #### T ROPHS, ADGONSALO, ANEU, BMP, PBNP, GFR, MDW, CBC #### [facility] [address] [place], [place] [address] TROPHSon 11-10-2024 High Sensitivity Troponin I <4 Normal 0-51 [facility] Comment on above: Result Comment: High Sensitive Troponin I Reference Ranges: Female: 0-51 ng/L Male: 0-76 ng/L Testing performed on Dimension EX using a homogeneous sandwich chemiluminescent immunoassay based on [employer] technology. Performed By: #### T ROPHS, SCOTT, ANEU, BMP, PBNP, GFR, MDW, CBC #### [place] [id number] [place], [place] [address] XR CHEST 1 VIEWon 11-10-2024 XR CHEST [...] 8:10:16 PM Ordering Provider: SHELBIE TAFOYA Normal [facility] .Auto Diffon 11-09-2024 Basophil, Absolute 0.0 10 3/mcL Normal 0.0-0.3 [facility] Comment on above: Performed By: #### G FR, TROPHS, BMP, CBC, MDW, ADIFF, PBNP, ANEU #### [place] [id number] [place], [place] [address] Basophils/100 WBC (Bld) 0.9 % Normal 0.0-2.5 [facility] Comment on above: Performed By: #### G FR, TROPHS, BMP, CBC, MDW, ADIFF, PBNP, ANEU #### [address] [address] Eosinophil, Absolute 0.1 10 3/mcL Normal 0.0-0.7 [facility] Comment on above: Performed By: #### G FR, TROPHS, BMP, CBC, MDW, ADIFF, PBNP, ANEU #### [address] [address] Eosinophils/100 WBC (Bld) 1.9 % Normal 0.0-6.0 [facility] Comment on above: Performed By: #### G FR, TROPHS, BMP, CBC, MDW, ADIFF, PBNP, ANEU #### [address] [address] Lymphocyte, Absolute 1.4 10 3/mcL Normal 0.9-4.3 [facility] Comment on above: Performed By: #### G FR, TROPHS, BMP, CBC, MDW, ADIFF, PBNP, ANEU #### [address] [address] Lymphocytes/100 WBC (Bld) 26.2 % Normal 20.0-40.0 [facility] Comment on above: Performed By: #### G FR, TROPHS, BMP, CBC, MDW, ADIFF, PBNP, ANEU #### [address] [address] Monocyte, Absolute 0.6 10 3/mcL Normal 0.1-1.4 [facility] Comment on above: Performed By: #### G FR, TROPHS, BMP, CBC, MDW, ADIFF, PBNP, ANEU #### [address] [address] Monocytes/100 WBC (Bld) 12.0 % Normal 2.0-13.0 [facility] Comment on above: Performed By: #### G FR, TROPHS, BMP, CBC, MDW, ADIFF, PBNP, ANEU #### [address] [address] Neutrophils/100 WBC (Bld) 59.0 % Normal 50.0-75.0 [facility] Comment on above: Performed By: #### G FR, TROPHS, BMP, CBC, MDW, ADIFF, PBNP, ANEU #### [address] [address] .GFRon 11-09-2024 Estimated Glomerular Filtration Rate 80 ml/min/1.73sqm Normal [facility] Comment on above: Result Comment: Stages [...] eGFR results. Performed By: #### T FREDERICK, SCOTT, ANEU, BMP, PBNP, GFR, MDW, CBC #### [address] [address] .MDWon 11-09-2024 Monocyte Distribution Width 17.05 Normal 0.00-20.00 [facility] Comment on above: Result Comment: For ED adult patients suspected of sepsis, MDW<=20.0 does not rule out sepsis or risk of sepsis Performed By: #### T ROPDANTE, ASHLEYIFF, ANEU, BMP, PBNP, GFR, MDW, CBC #### [address] [id number] .NEUABSon 11-09-2024 Neutrophil, Absolute 3.1 10 3/mcL Normal 2.3-8.1 [facility] Comment on above: Performed By: #### T FREDERICK, ADIFF, ANEU, BMP, PBNP, GFR, MDW, CBC #### [place] [id number] BMPon 11-09-2024 BUN/Creatinine Ratio 14 ratio Normal 7-27 [facility] Comment on above: Performed By: #### T ROPHS, ADIFF, ANEU, BMP, PBNP, GFR, MDW, CBC #### [address] [id number] Calcium [Mass/Vol] 9.0 mg/dL Normal 8.4-10.2 [facility] Comment on above: Performed By: #### T ROPHS, ADIFF, ANEU, BMP, PBNP, GFR, MDW, CBC #### [address] [address] Chloride [Moles/Vol] 105 mmol/L Normal 98-107 [facility] Comment on above: Performed By: #### T ROPHS, ADIFF, ANEU, BMP, PBNP, GFR, MDW, CBC #### [address] [address] [address] CO2 [Moles/Vol] 31 mmol/L High 22-29 [facility] Comment on above: Performed By: #### T ROPHS, ADIFF, ANEU, BMP, PBNP, GFR, MDW, CBC #### [address] [address] Creatinine [Mass/Vol] 0.96 mg/dL High 0.51-0.95 [facility] Comment on above: Performed By: #### T ROPHS, ADIFF, ANEU, BMP, PBNP, GFR, MDW, CBC #### [address] [address] Electrolyte Balance 7.0 mEq/L Normal 4.0-15.0 [facility] Comment on above: Performed By: #### T ROPHS, ADIFF, ANEU, BMP, PBNP, GFR, MDW, CBC #### [address] [address] Glucose [Mass/Vol] 109 mg/dL High 70-105 [facility] Comment on above: Performed By: #### T ROPHS, ADIFF, ANEU, BMP, PBNP, GFR, MDW, CBC #### [address] [address] Potassium [Moles/Vol] 3.9 mmol/L Normal 3.5-5.1 [facility] Comment on above: Performed By: #### T ROPHS, ADIFF, ANEU, BMP, PBNP, GFR, MDW, CBC #### [address] [address] Sodium [Moles/Vol] 143 mmol/L Normal 136-145 [facility] Comment on above: Performed By: #### T ROPHS, ADIFF, ANEU, BMP, PBNP, GFR, MDW, CBC #### [address] [address] Urea nitrogen [Mass/Vol] 13 mg/dL Normal 7-18 [facility] Comment on above: Performed By: #### T ROPHS, ADIFF, ANEU, BMP, PBNP, GFR, MDW, CBC #### [address] [address] CBCon 11-09-2024 Erythrocyte distribution width (RBC) [Ratio] 13.5 % Normal 11.5-15.5 [facility] Comment on above: Performed By: #### G FR, TROPHS, BMP, CBC, MDW, ADIFF, PBNP, ANEU #### [address] [address] Hematocrit (Bld) [Volume fraction] 41.1 % Normal 34.0-46.0 [facility] Comment on above: Performed By: #### G FR, TROPHS, BMP, CBC, MDW, ADIFF, PBNP, ANEU #### [address] [address] Hgb 13.9 G/dL Normal 12.0-16.0 [facility] Comment on above: Performed By: #### G FR, TROPHS, BMP, CBC, MDW, ADIFF, PBNP, ANEU #### [address] [address] MCH (RBC) [Entitic mass] 29.7 pg Normal 27.0-33.0 [facility] Comment on above: Performed By: #### G FR, TROPHS, BMP, CBC, MDW, ADIFF, PBNP, ANEU #### [address] [address] MCHC 33.8 G/dL Normal 32.0-36.0 [facility] Comment on above: Performed By: #### G FR, TROPHS, BMP, CBC, MDW, ADIFF, PBNP, ANEU #### [address] [address] MCV (RBC) [Entitic vol] 87.9 fL Normal 80.0-99.0 [facility] Comment on above: Performed By: #### G FR, TROPHS, BMP, CBC, MDW, ADIFF, PBNP, ANEU #### [address] [address] Platelet 311 10 3/mcL Normal 150-450 [facility] Comment on above: Performed By: #### G FR, TROPHS, BMP, CBC, MDW, ADIFF, PBNP, ANEU #### [address] [address] Platelet mean volume (Bld) [Entitic vol] 8.4 fL Normal 6.6-10.5 [facility] Comment on above: Performed By: #### G FR, TROPHS, BMP, CBC, MDW, ADIFF, PBNP, ANEU #### [address] [address] RBC 4.68 10 6/mcL Normal 4.10-5.30 [facility] Comment on above: Performed By: #### G FR, TROPHS, BMP, CBC, MDW, ADIFF, PBNP, ANEU #### [address] [address] WBC 5.2 10 3/mcL Normal 4.5-10.8 [facility] Comment on above: Performed By: #### G FR, TROPHS, BMP, CBC, MDW, ADIFF, PBNP, ANEU #### Keyshawn [address] [place], [place] [address] CBC W/Diff, Automatedon 07-0 6-5 Absolute Lymph 1.16 X10 3/uL Normal 0.83-4.51 [facility] Comment on above: Performed By: #### L 500.4050, L100.0100 ####[facility] [address] [place], [address] Absolute Neut 5.1 X10 3/uL Normal 2.0-7.7 [facility] Comment on above: Performed By: #### L 500.4050, L100.0100 ####[facility] [address] [place], [address] Basophils/100 WBC (Bld) 0.8 % Normal 0-[address] [facility] Comment on above: Performed By: #### L 500.4050, L100.0100 ####[facility] [address] [place], [address] Eosinophils/100 WBC (Bld) 1.9 % Normal 0-5 [facility] Comment on above: Performed By: #### L 500.4050, L100.0100 ####[facility] [address] [place], [address] Erythrocyte distribution width (RBC) [Ratio] 12.8 % Normal 11.6-14.6 [facility] Comment on above: Performed By: #### L 500.4050, L100.0100 ####[facility] [address] [place], [address] Hematocrit (Bld) [Volume fraction] 41.9 % Normal 37-47 [facility] Comment on above: Performed By: #### L 500.4050, L100.0100 ####[facility] [address] [place], [address] Hemoglobin (Bld) [Mass/Vol] 14.0 g/dL Normal 12.0-15.0 [facility] Comment on above: Performed By: #### L 500.4050, L100.0100 ####[facility] [address] [place], [address] IG% 0.100 Normal 0.0-0.9 [facility] Comment on above: Result Comment: IG% - Immature Granulocytes (promyelocytes, myelocytes andmetamyelocytes) > 1% indicates that a LEFT SHIFT is Present. Performed By: #### L 500.4050, L100.0100 ####[facility] [address] [place], [address] Lymphocytes/100 WBC (Bld) 15.9 % Low 19-41 [facility] Comment on above: Performed By: #### L 500.4050, L100.0100 ####[facility] [address] [place], [address] MCH (RBC) [Entitic mass] 29.4 pg Normal 27.0-32.0 [facility] Comment on above: Performed By: #### L 500.4050, L100.0100 ####[facility] [address] [place], [address] MCHC (RBC) [Mass/Vol] 33.4 g/dL Normal 32-36 [facility] Comment on above: Performed By: #### L 500.4050, L100.0100 ####[facility] [address] [place], [address] MCV (RBC) [Entitic vol] 88.0 fL Normal 81-99 [facility] Comment on above: Performed By: #### L 500.4050, L100.0100 ####[facility] [address] [place], [address] Monocytes/100 WBC (Bld) 11.8 % High 0-[address] [facility] Comment on above: Performed By: #### L 500.4050, L100.0100 ####[facility] [address] [place], [address] Neutrophils/100 WBC (Bld) 69.5 % Normal 47-70 [facility] Comment on above: Performed By: #### L 500.4050, L100.0100 ####[facility] [address] [place], [address] Nucleated RBC (Bld) [#/Vol] 0 10*3/uL Normal 0-5 [facility] Comment on above: Performed By: #### L 500.4050, L100.0100 ####[facility] [address] [place], [address] Platelet mean volume (Bld) [Entitic vol] 10.0 fL Normal 6.2-12.0 [facility] Comment on above: Performed By: #### L 500.4050, L100.0100 ####[facility] [address] [place], [address] Platelets (Bld) [#/Vol] 340 10*3/uL Normal 150-450 [facility] Comment on above: Performed By: #### L 500.4050, L100.0100 ####[facility] [address] [place], [address] RBC (Bld) [#/Vol] 4.76 10*6/uL Normal 4.2-5.4 [facility] Comment on above: Performed By: #### L 500.4050, L100.0100 ####[facility] [address] [place], [address] RDW SD 41.1 fl Normal 35.1-43.9 [facility] Comment on above: Performed By: #### L 500.4050, L100.0100 ####[facility] [address] [place], [address] WBC (Bld) [#/Vol] 7.3 10*3/uL Normal 4.4-11.0 [facility] Comment on above: Performed By: #### L 500.4050, L100.0100 ####[facility] [address] [place], [address] Comprehensive Metabolic Prof ilon 11-09-2024 Albumin [Mass/Vol] 3.9 g/dL Normal 3.5-5.0 [facility] Comment on above: Performed By: #### L 500.4050, L100.0100 ####[facility] [address] [place], [address] Albumin/Globulin [Mass ratio] 1.4 {ratio} Normal 0.9-2.4 [facility] Comment on above: Performed By: #### L 500.4050, L100.0100 ####[facility] [address] [place], [address] ALK PHOS 202 U/L High 35-104 [facility] Comment on above: Performed By: #### L 500.4050, L100.0100 ####[facility] [address] [place], [address] ALT [Catalytic activity/Vol] 76 U/L High <=34 [facility] Comment on above: Performed By: #### L 500.4050, L100.0100 ####[facility] [address] [place], [address] AST [Catalytic activity/Vol] 40 U/L High <=31 [facility] Comment on above: Performed By: #### L 500.4050, L100.0100 ####[facility] [address] [place], [address] Bilirubin [Mass/Vol] 0.34 mg/dL Normal 0.00-1.30 [facility] Comment on above: Performed By: #### L 500.4050, L100.0100 ####[facility] [address] [place], [address] BUN/CRE 12.5 RATIO Normal 10-20 [facility] Comment on above: Performed By: #### L 500.4050, L100.0100 ####[facility] [address] [place], [address] Calcium [Mass/Vol] 9.1 mg/dL Normal 7.6-11.0 [facility] Comment on above: Performed By: #### L 500.4050, L100.0100 ####[facility] [address] [place], [address] Chloride [Moles/Vol] 104 mmol/L Normal 98-108 [facility] Comment on above: Performed By: #### L 500.4050, L100.0100 ####[facility] [address] [place], [address] CO2 [Moles/Vol] 25.7 mmol/L Normal 21.0-32.0 [facility] Comment on above: Performed By: #### L 500.4050, L100.0100 ####[facility] [address] [place], [address] Creatinine [Mass/Vol] 0.93 mg/dL Normal 0.70-1.20 [facility] Comment on above: Performed By: #### L 500.4050, L100.0100 ####[facility] [address] [place], [address] ECRCL 94.75 ml/min Normal 50-250 [facility] Comment on above: Performed By: #### L 500.4050, L100.0100 ####[facility] [address] [place], [address] GAP 9 Normal 5-15 [facility] Comment on above: Performed By: #### L 500.4050, L100.0100 ####[facility] [address] [place], [address] GFR/1.73 sq M.predicted among non-blacks MDRD (S/P/Bld) [Vol rate/Area] 83 mL/min/{1.73_m2} Normal >60 [facility] Comment on above: Result Comment: mL/m in/1.73m2 CKD-EPI Creatinine Equation (2020) Performed By: #### L 500.4050, L100.0100 ####[facility] [address] [place], [address] Globulin (S) [Mass/Vol] 2.7 g/dL Normal 2.2-4.[address] [facility] Comment on above: Performed By: #### L 500.4050, L100.0100 ####[facility] [address] [place], [address] Glucose [Mass/Vol] 101 mg/dL High 70-99 [facility] Comment on above: Performed By: #### L 500.4050, L100.0100 ####[facility] [address] [place], [address] Potassium [Moles/Vol] 4.2 mmol/L Normal 3.3-5.1 [facility] Comment on above: Performed By: #### L 500.4050, L100.0100 ####[facility] [address] [place], [address] Sodium [Moles/Vol] 139 mmol/L Normal 133-145 [facility] Comment on above: Performed By: #### L 500.4050, L100.0100 ####[facility] [address] [place], [address] T PROT 6.6 g/dL Normal 5.9-8.4 [facility] Comment on above: Performed By: #### L 500.4050, L100.0100 ####[facility] [address] [place], [place], [address] Urea nitrogen [Mass/Vol] 12 mg/dL Normal 4-19 [facility] Comment on above: Performed By: #### L 500.4050, L100.0100 ####[facility] [address] [place], [place], [address] Emergency Department Summary on 11-09-2024 Emergency Department Summary Normal [facility] LABORATORYOrdered By: SYSTEM SYSTEM on 11-09-2024 [...] ng/L Male: 0-76 ng/L Testing performed on [employer] using a homogeneous sandwich chemiluminescent immunoassay based on [employer] technology. Urea nitrogen [Mass/Vol] 13 mg/dL Normal 7 - 18 mg/dL AO ADM SS Urea nitrogen/Creatinine [Mass ratio] 14 ratio Normal 7 - 27 ratio AO ADM SS WBC (Bld) [#/Vol] 5.2 103/mcL Normal 4.5 - 10.8 10^3/mcL AO Workflow SS PBNPon 11-09-2024 Natriuretic peptide B (Bld) [Mass/Vol] 37 pg/mL Normal 0-125 [facility] Comment on above: Result Comment: NT-p roBNP results of less than 300 pg/mL effectively rules out acute congestive heart failure with 99% negative predictive value. Performed By: #### T ROPHS, ADIFF, ANEU, BMP, PBNP, GFR, MDW, CBC #### [address] [address] [facility] 11-09-2024 High Sensitivity Troponin I 4 ng/L Normal 0-51 [facility] Comment on above: Result Comment: High Sensitive Troponin I Reference Ranges: Female: 0-51 ng/L Male: 0-76 ng/L Testing performed on [employer] using a homogeneous sandwich chemiluminescent immunoassay based on [employer] technology. Performed By: #### T ROPHS, ADIFF, ANEU, BMP, PBNP, GFR, MDW, CBC #### Keyshawn [address] [address] Urine Drug Screen (VISTA)on 11-09-2024 AMPHETAMINES Negative Normal <1000 ng/mL [facility] Comment on above: Performed By: #### L 505.5000 ####[facility] [address] [facility] [address] BARBITIURATES Negative Normal < 200 ng/mL [facility] Comment on above: Performed By: #### L 505.5000 ####[facility] [address] [facility] [address] BENZODIAZIPINE Positive Normal < 200 ng/mL [facility] Comment on above: Result Comment: If c onfirmation testing is needed, a separate order will berequired to send out testing to the reference laboratory. Performed By: #### L 505.5000 ####[facility] [address] [place], [address] BUP Ur Drug Scr Positive Normal < 200 ng/mL [facility] Comment on above: Result Comment: If c onfirmation testing is needed, a separate order will berequired to send out testing to the reference laboratory. Performed By: #### L 505.5000 ####[facility] [address] [place], [address] COCAINE Negative Normal < 300 ng/mL [facility] Comment on above: Performed By: #### L 505.5000 ####[facility] [address] [place] [id number] Fentanyl Negative Normal [facility] Comment on above: Performed By: #### L 505.5000 ####[facility] [address] [facility] [address] METHADONE Negative Normal < 300 ng/mL [facility] Comment on above: Performed By: #### L 505.5000 ####[facility] [address] [place], [address] OPIATES Negative Normal < 300 ng/mL [facility] Comment on above: Performed By: #### L 505.5000 ####[facility] [address] [place], [address] OXYCODONE Negative Normal < 100 ng/mL [facility] Comment on above: Performed By: #### L 505.5000 ####[facility] [address] [place], [address] PCP Negative Normal < 25 ng/mL [facility] Comment on above: Performed By: #### L 505.5000 ####[facility] [address] [place], [address] THC Positive Normal < 50 ng/mL [facility] Comment on above: Result Comment: If c onfirmation testing is needed, a separate order will berequired to send out testing to the reference laboratory. Performed By: #### L 505.5000 ####[facility] [address] [place], [address] XR CHEST 1 VIEWon 11-09-2024 XR CHEST [...] Date: 11/09/2024 6:51:33 PM Ordering Provider: SHEYLA FROMMELT Interpreted by: Joe Marcelo Preliminary Report By: Manuel Coats Electronically signed By Joe Marcelo Dictated Date: 11/09/2024 6:48:50 PM Prelim Date: 11/09/2024 6:49:56 PM Sign Date: 11/09/2024 6:51:33 PM Ordering Provider: SHEYLA ROSAS Normal [facility] Emergency Department Summary on 11-02-2024 Emergency Department Summary Normal [facility] MR/BMS.BPon 10-16-2024 MR/BMS.BP Normal [facility] Internal Medicine Office Vis iton 10-03-2024 Internal Medicine Office Visit Normal [facility] Chest PA and Lateralon 09-18 Chest PA and Lateral Normal [facility] Urgent Care Visit Reporton 0 09-18-2024 Urgent Care Visit Report Normal [facility] Emergency Department Summary on 09-11-2024 Emergency Department Summary Normal [facility] Venous Duplex Imag/Limited/U nion 09-11-2024 Venous Duplex Imag/Limited/Uni Normal [facility] MR/BMS.BPon 09-04-2024 MR/BMS.BP Normal [facility] Tibia Fibula 2 Viewson 08-18 Tibia Fibula 2 Views Normal [facility] MR/BMS.BPon 08-07-2024 MR/BMS.BP Normal [facility] MR/BMS.BPon 07-17-2024 MR/BMS.BP Normal [facility] Alcohol, Blood (Medical)-Ser umon 07-08-2024 SERUM ETOH 56.6 mg/dL High <=10.0 [facility] Comment on above: Result Comment: This test is for medical purposes only. The legaldefinition of intoxication varies according to local law. Performed By: #### L 505.5000, L700.6800, L100.0100, L501.9100, L500.2500 ####[facility] [address] [place], [place], [id number] Basic Metabolic Profile (BMP )on 07-08-2024 BUN/CRE 13.1 RATIO Normal 10-20 [facility] Comment on above: Performed By: #### L 505.5000, L700.6800, L100.0100, L501.9100, L500.2500 ####[facility] [address] [place], [address] Calcium [Mass/Vol] 8.9 mg/dL Normal 7.6-11.0 [facility] Comment on above: Performed By: #### L 505.5000, L700.6800, L100.0100, L501.9100, L500.2500 ####[facility] [address] [place], [address] Chloride [Moles/Vol] 105 mmol/L Normal 98-108 [facility] Comment on above: Performed By: #### L 505.5000, L700.6800, L100.0100, L501.9100, L500.2500 ####[facility] [address] [place], [address] CO2 [Moles/Vol] 20.0 mmol/L Low 21.0-32.0 [facility] Comment on above: Performed By: #### L 505.5000, L700.6800, L100.0100, L501.9100, L500.2500 ####[facility] [address] [place], [address] Creatinine [Mass/Vol] 0.81 mg/dL Normal 0.70-1.20 [facility] Comment on above: Performed By: #### L 505.5000, L700.6800, L100.0100, L501.9100, L500.2500 ####[facility] [address] [place], [address] ECRCL 109.32 ml/min Normal 50-250 [facility] Comment on above: Performed By: #### L 505.5000, L700.6800, L100.0100, L501.9100, L500.2500 ####[facility] [address] [place], [address] GAP 14 Normal 5-15 [facility] Comment on above: Performed By: #### L 505.5000, L700.6800, L100.0100, L501.9100, L500.2500 ####[facility] [address] [place], [address] GFR/1.73 sq M.predicted among non-blacks MDRD (S/P/Bld) [Vol rate/Area] 98 mL/min/{1.73_m2} Normal >60 [facility] Comment on above: Result Comment: mL/m in/1.73m2 CKD-EPI Creatinine Equation (2020) Performed By: #### L 505.5000, L700.6800, L100.0100, L501.9100, L500.2500 ####[facility] [address] [place], [address] Glucose [Mass/Vol] 90 mg/dL Normal 70-99 [facility] Comment on above: Performed By: #### L 505.5000, L700.6800, L100.0100, L501.9100, L500.2500 ####[facility] [address] [place], [address] Potassium [Moles/Vol] 4.0 mmol/L Normal 3.3-5.1 [facility] Comment on above: Performed By: #### L 505.5000, L700.6800, L100.0100, L501.9100, L500.2500 ####[facility] [address] [place], [address] Sodium [Moles/Vol] 139 mmol/L Normal 133-145 [facility] Comment on above: Performed By: #### L 505.5000, L700.6800, L100.0100, L501.9100, L500.2500 ####[facility] [address] [place], [address] Urea nitrogen [Mass/Vol] 11 mg/dL Normal 4-19 [facility] Comment on above: Performed By: #### L 505.5000, L700.6800, L100.0100, L501.9100, L500.2500 ####[facility] [address] [place], [address] CBC W/Diff, Automatedon 03-0 4-2025 Absolute Lymph 1.83 X10 3/uL Normal 0.83-4.51 [facility] Comment on above: Performed By: #### L 505.5000, L700.6800, L100.0100, L501.9100, L500.2500 ####[facility] [address] [place], [address] Absolute Neut 3.9 X10 3/uL Normal 2.0-7.7 [facility] Comment on above: Performed By: #### L 505.5000, L700.6800, L100.0100, L501.9100, L500.2500 ####[facility] [address] [place], [address] Basophils/100 WBC (Bld) 1.1 % High 0-[address] [facility] Comment on above: Performed By: #### L 505.5000, L700.6800, L100.0100, L501.9100, L500.2500 ####[facility] [address] [place], [address] Eosinophils/100 WBC (Bld) 1.3 % Normal 0-5 [facility] Comment on above: Performed By: #### L 505.5000, L700.6800, L100.0100, L501.9100, L500.2500 ####[facility] [address] [place], [address] Erythrocyte distribution width (RBC) [Ratio] 13.2 % Normal 11.6-14.6 [facility] Comment on above: Performed By: #### L 505.5000, L700.6800, L100.0100, L501.9100, L500.2500 ####[facility] [address] [place], [address] Hematocrit (Bld) [Volume fraction] 43.4 % Normal 37-47 [facility] Comment on above: Performed By: #### L 505.5000, L700.6800, L100.0100, L501.9100, L500.2500 ####[facility] [address] [place], [address] Hemoglobin (Bld) [Mass/Vol] 14.3 g/dL Normal 12.0-15.0 [facility] Comment on above: Performed By: #### L 505.5000, L700.6800, L100.0100, L501.9100, L500.2500 ####[facility] [address] [place], [address] IG% 0.300 Normal 0.0-0.9 [facility] Comment on above: Result Comment: IG% - Immature Granulocytes (promyelocytes, myelocytes andmetamyelocytes) > 1% indicates that a LEFT SHIFT is Present. Performed By: #### L 505.5000, L700.6800, L100.0100, L501.9100, L500.2500 ####[facility] [address] [place], [address] Lymphocytes/100 WBC (Bld) 28.6 % Normal 19-41 [facility] Comment on above: Performed By: #### L 505.5000, L700.6800, L100.0100, L501.9100, L500.2500 ####[facility] [address] [place], [address] MCH (RBC) [Entitic mass] 28.7 pg Normal 27.0-32.0 [facility] Comment on above: Performed By: #### L 505.5000, L700.6800, L100.0100, L501.9100, L500.2500 ####[facility] [address] [place], [address] MCHC (RBC) [Mass/Vol] 32.9 g/dL Normal 32-36 [facility] Comment on above: Performed By: #### L 505.5000, L700.6800, L100.0100, L501.9100, L500.2500 ####[facility] [address] [place], [address] MCV (RBC) [Entitic vol] 87.0 fL Normal 81-99 [facility] Comment on above: Performed By: #### L 505.5000, L700.6800, L100.0100, L501.9100, L500.2500 ####[facility] [address] [place], [address] Monocytes/100 WBC (Bld) 7.3 % Normal 0-10 [facility] Comment on above: Performed By: #### L 505.5000, L700.6800, L100.0100, L501.9100, L500.2500 ####[facility] [address] [place], [address] Neutrophils/100 WBC (Bld) 61.4 % Normal 47-70 [facility] Comment on above: Performed By: #### L 505.5000, L700.6800, L100.0100, L501.9100, L500.2500 ####[facility] [address] [place], [address] Nucleated RBC (Bld) [#/Vol] 0 10*3/uL Normal 0-5 [facility] Comment on above: Performed By: #### L 505.5000, L700.6800, L100.0100, L501.9100, L500.2500 ####[facility] [address] [place], [address] Platelet mean volume (Bld) [Entitic vol] 9.7 fL Normal 6.2-12.0 [facility] Comment on above: Performed By: #### L 505.5000, L700.6800, L100.0100, L501.9100, L500.2500 ####[facility] [address] [place], [address] Platelets (Bld) [#/Vol] 399 10*3/uL Normal 150-450 [facility] Comment on above: Performed By: #### L 505.5000, L700.6800, L100.0100, L501.9100, L500.2500 ####[facility] [address] [place], [address] RBC (Bld) [#/Vol] 4.99 10*6/uL Normal 4.2-5.4 [facility] Comment on above: Performed By: #### L 505.5000, L700.6800, L100.0100, L501.9100, L500.2500 ####[facility] [address] [place], [address] RDW SD 41.3 fl Normal 35.1-43.9 [facility] Comment on above: Performed By: #### L 505.5000, L700.6800, L100.0100, L501.9100, L500.2500 ####[facility] [address] [place], [address] WBC (Bld) [#/Vol] 6.4 10*3/uL Normal 4.4-11.0 [facility] Comment on above: Performed By: #### L 505.5000, L700.6800, L100.0100, L501.9100, L500.2500 ####[facility] [address] [place], [address] Emergency Department Summary on 07-08-2024 Emergency Department Summary Normal [facility] ,Serum,hCG Quali.on 07-08-2024 HCG, SERUM QUAL Negative Normal [facility] Comment on above: Order Comment: if fe male and of childbearing age (8-55 years old) Performed By: #### L 505.5000, L700.6800, L100.0100, L501.9100, L500.2500 ####[facility] [address] [place], [place], [id number] Urine Drug Screen (VISTA)on 07-08-2024 AMPHETAMINES Positive Normal <1000 ng/mL [facility] Comment on above: Result Comment: If c onfirmation testing is needed, a separate order will berequired to send out testing to the reference laboratory. Performed By: #### L 505.5000, L700.6800, L100.0100, L501.9100, L500.2500 ####[facility] [address] [place], [place], [address] BARBITIURATES Negative Normal < 200 ng/mL [facility] Comment on above: Performed By: #### L 505.5000, L700.6800, L100.0100, L501.9100, L500.2500 ####[facility] [address] [place], [address] BENZODIAZIPINE Positive Normal < 200 ng/mL [facility] Comment on above: Result Comment: If c onfirmation testing is needed, a separate order will berequired to send out testing to the reference laboratory. Performed By: #### L 505.5000, L700.6800, L100.0100, L501.9100, L500.2500 ####[facility] [address] [place], [place], [address] BUP Ur Drug Scr Negative Normal < 200 ng/mL [facility] Comment on above: Performed By: #### L 505.5000, L700.6800, L100.0100, L501.9100, L500.2500 ####[facility] [address] [place] [address] COCAINE Negative Normal < 300 ng/mL [facility] Comment on above: Performed By: #### L 505.5000, L700.6800, L100.0100, L501.9100, L500.2500 ####[facility] [address] [place] [address] Fentanyl Negative Normal [facility] Comment on above: Performed By: #### L 505.5000, L700.6800, L100.0100, L501.9100, L500.2500 ####[facility] [address] [place] [address] METHADONE Negative Normal < 300 ng/mL [facility] Comment on above: Performed By: #### L 505.5000, L700.6800, L100.0100, L501.9100, L500.2500 ####[facility] [address] [place] [address] OPIATES Negative Normal < 300 ng/mL [facility] Comment on above: Performed By: #### L 505.5000, L700.6800, L100.0100, L501.9100, L500.2500 ####[facility] [address] [place] [address] OXYCODONE Negative Normal < 100 ng/mL [facility] Comment on above: Performed By: #### L 505.5000, L700.6800, L100.0100, L501.9100, L500.2500 ####[facility] [address] [place] [address] PCP Negative Normal < 25 ng/mL [facility] Comment on above: Performed By: #### L 505.5000, L700.6800, L100.0100, L501.9100, L500.2500 ####[facility] [address] [place], [address] THC Positive Normal < 50 ng/mL [facility] Comment on above: Result Comment: If c onfirmation testing is needed, a separate order will berequired to send out testing to the reference laboratory. Performed By: #### L 505.5000, L700.6800, L100.0100, L501.9100, L500.2500 ####[facility] [address] 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 [facility] Comment on above: Performed By: #### L 7000.7000 ####[facility] [address] [place], [place], [address] HCV QT RNA PCR Not detected Normal . [facility] Comment on above: Performed By: #### L 7000.7000 ####[facility] [address] [place], [place], [address] TEST INFO: Comment Normal . [facility] Comment on above: Result Comment: The quantitative range of this assay is 15 IU/mL to 100million IU/mL.Performed at: [address] [id number] Director: Sarah Means MD, Phone: [phone] Performed By: #### L 7000.7000 ####[facility] [address] [place], [place], [address] Urgent Care Visit Reporton 0 06-19-2024 Urgent Care Visit Report Normal [facility] CBC W/Diff, Automatedon 06-07 Absolute Lymph 1.73 X10 3/uL Normal 0.83-4.51 [facility] Comment on above: Performed By: #### L 500.4050, L505.5000, L100.0100, L500.4100 ####[facility] [address] [place], [address] Absolute Neut 3.4 X10 3/uL Normal 2.0-7.7 [facility] Comment on above: Performed By: #### L 500.4050, L505.5000, L100.0100, L500.4100 ####[facility] [address] [place], [address] Basophils/100 WBC (Bld) 0.7 % Normal 0-[address] [facility] Comment on above: Performed By: #### L 500.4050, L505.5000, L100.0100, L500.4100 ####[facility] [address] [place], [address] Eosinophils/100 WBC (Bld) 0.7 % Normal 0-5 [facility] Comment on above: Performed By: #### L 500.4050, L505.5000, L100.0100, L500.4100 ####[facility] [address] [place], [address] Erythrocyte distribution width (RBC) [Ratio] 13.2 % Normal 11.6-14.6 [facility] Comment on above: Performed By: #### L 500.4050, L505.5000, L100.0100, L500.4100 ####[facility] [address] [place], [address] Hematocrit (Bld) [Volume fraction] 45.0 % Normal 37-47 [facility] Comment on above: Performed By: #### L 500.4050, L505.5000, L100.0100, L500.4100 ####[facility] [address] [place], [address] Hemoglobin (Bld) [Mass/Vol] 14.7 g/dL Normal 12.0-15.0 [facility] Comment on above: Performed By: #### L 500.4050, L505.5000, L100.0100, L500.4100 ####[facility] [address] [place], [address] IG% 0.300 Normal 0.0-0.9 [facility] Comment on above: Result Comment: IG% - Immature Granulocytes (promyelocytes, myelocytes andmetamyelocytes) > 1% indicates that a LEFT SHIFT is Present. Performed By: #### L 500.4050, L505.5000, L100.0100, L500.4100 ####[facility] [address] [place], [address] Lymphocytes/100 WBC (Bld) 29.8 % Normal 19-41 [facility] Comment on above: Performed By: #### L 500.4050, L505.5000, L100.0100, L500.4100 ####[facility] [address] [place], [address] MCH (RBC) [Entitic mass] 28.1 pg Normal 27.0-32.0 [facility] Comment on above: Performed By: #### L 500.4050, L505.5000, L100.0100, L500.4100 ####[facility] [address] [place], [address] MCHC (RBC) [Mass/Vol] 32.7 g/dL Normal 32-36 [facility] Comment on above: Performed By: #### L 500.4050, L505.5000, L100.0100, L500.4100 ####[facility] [address] [place], [address] MCV (RBC) [Entitic vol] 86.0 fL Normal 81-[address] [facility] Comment on above: Performed By: #### L 500.4050, L505.5000, L100.0100, L500.4100 ####[facility] [address] [place], [address] Monocytes/100 WBC (Bld) 9.8 % Normal 0-[address] [facility] Comment on above: Performed By: #### L 500.4050, L505.5000, L100.0100, L500.4100 ####[facility] [address] [place], [address] Neutrophils/100 WBC (Bld) 58.7 % Normal 47-70 [facility] Comment on above: Performed By: #### L 500.4050, L505.5000, L100.0100, L500.4100 ####[facility] [address] [place], [address] Nucleated RBC (Bld) [#/Vol] 0 10*3/uL Normal 0-5 [facility] Comment on above: Performed By: #### L 500.4050, L505.5000, L100.0100, L500.4100 ####[facility] [address] [place], [address] Platelet mean volume (Bld) [Entitic vol] 10.3 fL Normal 6.2-12.0 [facility] Comment on above: Performed By: #### L 500.4050, L505.5000, L100.0100, L500.4100 ####[facility] [address] [place], [address] Platelets (Bld) [#/Vol] 368 10*3/uL Normal 150-450 [facility] Comment on above: Performed By: #### L 500.4050, L505.5000, L100.0100, L500.4100 ####[facility] [address] [place], [address] RBC (Bld) [#/Vol] 5.23 10*6/uL Normal 4.2-5.4 [facility] Comment on above: Performed By: #### L 500.4050, L505.5000, L100.0100, L500.4100 ####[facility] [address] [place], [address] RDW SD 41.0 fl Normal 35.1-43.9 [facility] Comment on above: Performed By: #### L 500.4050, L505.5000, L100.0100, L500.4100 ####[facility] [address] [place], [address] WBC (Bld) [#/Vol] 5.8 10*3/uL Normal 4.4-11.0 [facility] Comment on above: Performed By: #### L 500.4050, L505.5000, L100.0100, L500.4100 ####[facility] [address] [place], [address] Comprehensive Metabolic Prof [facility] 06-18-2024 Albumin [Mass/Vol] 3.5 g/dL Normal 3.2-5.0 [facility] Comment on above: Performed By: #### L 500.4050, L505.5000, L100.0100, L500.4100 ####[facility] [address] [place], [address] Albumin/Globulin [Mass ratio] 0.9 {ratio} Normal 0.9-2.4 [facility] Comment on above: Performed By: #### L 500.4050, L505.5000, L100.0100, L500.4100 ####[facility] [address] [place], [address] ALK P 170 U/L High 45-117 [facility] Comment on above: Performed By: #### L 500.4050, L505.5000, L100.0100, L500.4100 ####[facility] [address] [place], [address] ALT [Catalytic activity/Vol] 125 U/L High 13-56 [facility] Comment on above: Performed By: #### L 500.4050, L505.5000, L100.0100, L500.4100 ####[facility] [address] [place], [address] AST [Catalytic activity/Vol] 25 U/L Normal 15-37 [facility] Comment on above: Performed By: #### L 500.4050, L505.5000, L100.0100, L500.4100 ####[facility] [address] [place], [address] Bilirubin [Mass/Vol] 0.50 mg/dL Normal 0.20-1.00 [facility] Comment on above: Result Comment: For patients on eltrombopag therapy, use of Dimension [place] TBIL is not recommended. Performed By: #### L 500.4050, L505.5000, L100.0100, L500.4100 ####[facility] [address] [place], [address] BUN/CRE 9.7 RATIO Low 10-20 [facility] Comment on above: Performed By: #### L 500.4050, L505.5000, L100.0100, L500.4100 ####[facility] [address] [place], [address] CA,Total 9.1 mg/dL Normal 8.5-10.1 [facility] Comment on above: Performed By: #### L 500.4050, L505.5000, L100.0100, L500.4100 ####[facility] [address] [place], [address] Chloride [Moles/Vol] 105 mmol/L Normal 98-107 [facility] Comment on above: Performed By: #### L 500.4050, L505.5000, L100.0100, L500.4100 ####[facility] [address] [place], [address] CO2 [Moles/Vol] 27.0 mmol/L Normal 21.0-32.0 [facility] Comment on above: Performed By: #### L 500.4050, L505.5000, L100.0100, L500.4100 ####[facility] [address] [place], [address] Creatinine [Mass/Vol] 0.92 mg/dL Normal 0.55-1.02 [facility] Comment on above: Result Comment: The validity of the calculated GFR GFRAA in patients over70 years has not been determined. Clinical correlation isessential. Performed By: #### L 500.4050, L505.5000, L100.0100, L500.4100 ####[facility] [address] [place], [address] EST GFR - AA 90 mL/min Normal >60 [facility] Comment on above: Result Comment: Afri can [place] GFR Calc Performed By: #### L 500.4050, L505.5000, L100.0100, L500.4100 ####[facility] [address] [place], [address] GAP 6 Normal 5-15 [facility] Comment on above: Performed By: #### L 500.4050, L505.5000, L100.0100, L500.4100 ####[facility] [address] [place], [address] GFR/1.73 sq M.predicted among non-blacks MDRD (S/P/Bld) [Vol rate/Area] 74 mL/min/{1.73_m2} Normal >60 [facility] Comment on above: Result Comment: Non- GFR Calc Performed By: #### L 500.4050, L505.5000, L100.0100, L500.4100 ####[facility] [address] [place], [address] Globulin (S) [Mass/Vol] 3.9 g/dL Normal 2.2-4.2 [facility] Comment on above: Performed By: #### L 500.4050, L505.5000, L100.0100, L500.4100 ####[facility] [address] [place], [address] Glucose [Mass/Vol] 85 mg/dL Normal 74-106 [facility] Comment on above: Performed By: #### L 500.4050, L505.5000, L100.0100, L500.4100 ####[facility] [address] [place], [address] Potassium [Moles/Vol] 4.1 mmol/L Normal 3.5-5.1 [facility] Comment on above: Performed By: #### L 500.4050, L505.5000, L100.0100, L500.4100 ####[facility] [address] [place], [address] Sodium [Moles/Vol] 138 mmol/L Normal 136-145 [facility] Comment on above: Performed By: #### L 500.4050, L505.5000, L100.0100, L500.4100 ####[facility] [address] [place], [address] T PROT 7.4 g/dL Normal 6.4-8.2 [facility] Comment on above: Performed By: #### L 500.4050, L505.5000, L100.0100, L500.4100 ####[facility] [address] [place], [address] Urea nitrogen [Mass/Vol] 9 mg/dL Normal 7-18 [facility] Comment on above: Performed By: #### L 500.4050, L505.5000, L100.0100, L500.4100 ####[facility] [address] [place], [address] Internal Medicine Office Vis iton 06-18-2024 Internal Medicine Office Visit Normal [facility] Lipid Profileon 06-18-2024 Cholesterol [Mass/Vol] 171 mg/dL Normal 200 [facility] Comment on above: Result Comment: <200 mg/dL Desirable 200-240 mg/dL Borderline >240 mg/dL High Risk Performed By: #### L 500.4050, L505.5000, L100.0100, L500.4100 ####[facility] [address] [place], [address] Cholesterol in HDL [Mass/Vol] 54 mg/dL Normal [facility] Comment on above: Result Comment: The drugs N-Acetylcysteine and Metamizole may falselydepress this assay. Reference Range HDL <40 mg/dL Low HDL Cholesterol HDL >or= 60 mg/dL High HDL Cholesterol Performed By: #### L 500.4050, L505.5000, L100.0100, L500.4100 ####[facility] [address] [place], [address] Cholesterol in LDL [Mass/Vol] 96 mg/dL Normal 0-130 [facility] Comment on above: Performed By: #### L 500.4050, L505.5000, L100.0100, L500.4100 ####[facility] [address] [place], [address] Cholesterol in VLDL [Mass/Vol] 21 mg/dL Normal 5-40 [facility] Comment on above: Performed By: #### L 500.4050, L505.5000, L100.0100, L500.4100 ####[facility] [address] [place], [address] Triglyceride [Mass/Vol] 103 mg/dL Normal [facility] Comment on above: Result Comment: The drugs N-Acetylcysteine and Metamizole may falselydepress this assay.Serum Triglycerides Reference Interval Normal <150 mg/dL Borderline high 150 - 199 mg/dL High 200 - 499 mg/dL Very High > or = 500 mg/dL Performed By: #### L 500.4050, L505.5000, L100.0100, L500.4100 ####[facility] [address] [place], [address] Urine Drug Screen (VISTA)on 06-18-2024 AMPHETAMINES Negative Normal <1000 ng/mL [facility] Comment on above: Order Comment: UNK Performed By: #### L 500.4050, L505.5000, L100.0100, L500.4100 ####[facility] [address] [place], [address] BARBITIURATES Negative Normal < 200 ng/mL [facility] Comment on above: Order Comment: UNK Performed By: #### L 500.4050, L505.5000, L100.0100, L500.4100 ####[facility] [address] [place], [address] BENZODIAZIPINE Negative Normal < 200 ng/mL [facility] Comment on above: Order Comment: UNK Performed By: #### L 500.4050, L505.5000, L100.0100, L500.4100 ####[facility] [address] [place], [address] COCAINE Negative Normal < 300 ng/mL [facility] Comment on above: Order Comment: UNK Performed By: #### L 500.4050, L505.5000, L100.0100, L500.4100 ####[facility] [address] [place], [address] ECSTACY Negative Normal < 500 ng/mL [facility] Comment on above: Order Comment: UNK Performed By: #### L 500.4050, L505.5000, L100.0100, L500.4100 ####[facility] [address] [place], [address] METHADONE Negative Normal < 300 ng/mL [facility] Comment on above: Order Comment: UNK Performed By: #### L 500.4050, L505.5000, L100.0100, L500.4100 ####[facility] [address] [place], [address] OPIATES Negative Normal < 300 ng/mL [facility] Comment on above: Order Comment: UNK Performed By: #### L 500.4050, L505.5000, L100.0100, L500.4100 ####[facility] [address] [place], [address] PCP Negative Normal < 25 ng/mL [facility] Comment on above: Order Comment: UNK Performed By: #### L 500.4050, L505.5000, L100.0100, L500.4100 ####[facility] [address] [place], [address] THC Positive Abnormal < 50 ng/mL [facility] Comment on above: Order Comment: UNK Performed By: #### L 500.4050, L505.5000, L100.0100, L500.4100 ####[facility] [address] [place], [address] VISTA UDS PH 6 Normal [facility] Comment on above: Order Comment: UNK Performed By: #### L 500.4050, L505.5000, L100.0100, L500.4100 ####[facility] [address] [place], [address] Emergency Department Summary on 06-14-2024 Emergency Department Summary Normal [facility] M100.678on 06-14-2024 M100.678 Normal [facility] Comment on above: Performed By: #### M 100.678 ####[facility] [address] [place], [address] Chest PA and Lateralon 06-11 Chest PA and Lateral Normal [facility] MR/BMS.BPon 05-27-2024 MR/BMS.BP Normal [facility] MR/BMS.BPon 05-23-2024 MR/BMS.BP Normal [facility] MR/BMS.BPon 05-13-2024 MR/BMS.BP Normal [facility] MR/BMS.BPon 04-07-2024 MR/BMS.BP Normal [facility] ,Urineon 03-26-2024 Beta HCG ( test) Ql (U) Normal [facility] Comment on above: Result Comment: Canc elled via OM: pt didn't show up Performed By: #### L 400.7600 ####[facility] [address] [place], [address] INTERNAL QC OK? Normal [facility] Comment on above: Result Comment: Canc elled via OM: pt didn't show up Performed By: #### L 400.7600 ####[facility] [address] [place], [address] RECORD KIT LOT# Normal [facility] Comment on above: Result Comment: Canc elled via OM: pt didn't show up Performed By: #### L 400.7600 ####[facility] [address] [place], [address] MR/BMS.BPon 03-24-2024 MR/BMS.BP Normal [facility] Biopsy/Inj or Needle Placeme nton 03-20-2024 Biopsy/Inj or Needle Placement Normal [facility] Partial Thromboplast Timeon 03-20-2024 aPTT Coag (Bld) [Time] 25.5 s Normal 24.1-36.2 [facility] Comment on above: Performed By: #### L 300.4310, L300.3900, L100.1900 ####[facility] [address] [place], [address] Platelet Counton 03-20-2024 Platelets (Bld) [#/Vol] 474 10*3/uL High 150-450 [facility] Comment on above: Performed By: #### L 300.4310, L300.3900, L100.1900 ####[facility] [address] [place], [address] Prothrombin Time w/INRon INR Coag (PPP) [Relative time] 0.9 {INR} Normal [facility] Comment on above: Performed By: #### L 300.4310, L300.3900, L100.1900 ####[facility] [address] [place], [address] PT Coag (PPP) [Time] 12.3 s Normal 11.7-14.9 [facility] Comment on above: Performed By: #### L 300.4310, L300.3900, L100.1900 ####[facility] [address] [place], [address] Trichrome (control)on 2023 Trichrome (control) Normal [facility] Comment on above: Performed By: #### P TRI ####[facility] [address] [place], [address] CNPNon 02-14-2024 ANNEN Telephone (OBGYWM) SANDIE BECERRIL ([id number]) 1990 F Date Time Provider Department 02/14/24 [...] Primary Visit Diagnosis:Encounter for Depo-Provera contraception [Z30.42] Order(s):medroxyPROGES TERone 150 mg injection (DEPO-PROVERA)Disp: Rfl: Prescriptions as [...] Status:Closed by CLAUDIA WOODALL on 02/14/24 Normal [facility] C. trachomatis+N. gonorrhoea e DNA [place]+probe Ql (Unsp spec)on 11-22-2023 C. trachomatis rRNA [place]+probe Ql (Unsp spec) Negative Normal Negative for Chlamydia trachomatis by amplificaton [facility] Comment on above: Order Comment: Speci men Type: SWABOrdering Facility: [facility] Address: [address] [place] [address] Performed By: #### 3 6902-5 ####[facility] LABCLIA [id number] [address] [place] N. gonorrhoeae rRNA [place]+probe Ql (Unsp spec) Negative Normal Negative for Neisseria gonorrhoeae by amplification [facility] Comment on above: Order Comment: Speci men Type: SWABOrdering Facility: [facility] Address: [address] [place] [address] Performed By: #### 3 6902-5 ####[facility] LABCLIA [id number] [place] [address] [place] CNOVon 11-22-2023 CNOV Office Visit (OBGYWM ) SANDIE BECERRIL ([id number]) 1990 F Date Time Provider Department 11/22/23 1:30 PM PRATIMA KAT OBGYWM During your visit today, we recorded the following information about you: Blood pressure Weight Height 110/70 88 kg 1.676 m Pratima Kat MD 11/22/2023 2:12 PM Signed Felt Checker offered: Patient declines. Sandie is a 33 [...] L1 SAB0 IAB0 Ectopic0 Multiple0 Live Births1 Finish Patcher History LMP: 06/15/2023 (Approximate), Drug Induced Amenorrhea Age at Menarche: Age at First : Age at Menopause: Finish Patcher History Comments: Sexual Activity: Yes; Male Contraception: [...] external genitalia normal, normal Bartholin's glands, urethra, Keachi's glands, no vulvar lesions, no cervical lesions, [...] Route: Intramuscular Site: left upper quadrant gluteus Top Coater: prasco Lot: [id number] Expiration Date: 12/04/2026 The date due for [...] [Z12.4] Encounter (more content not included)... Normal [facility] HIGH RISK HUMAN PAPILLOMA KAREN (HPV), PCR FOR DETECTION AND GENOTYPINGon 11-22-2023 HPV 16 Ag Ql (Unsp spec) Not detected Normal Not detected [facility] Comment on above: Order Comment: Speci men Type: FLUID SPECIMENOrdering Facility: [facility] Address: [address] [place] [address] Performed By: #### L [id number] ####[facility] LABORATORYCLIA [id number] [address] LABCLIA [id number] [place] [address] [place]#### HPVHRT ####[facility] LABCLIA [id number] [place] [address] [place] HPV 18 Ag Ql (Unsp spec) Not detected Normal Not detected [facility] Comment on above: Order Comment: Speci men Type: FLUID SPECIMENOrdering Facility: [facility] Address: [address] [place] [address] Performed By: #### L [id number] ####[facility] LABORATORYCLIA [id number] [address] LABCLIA [id number] [address] [place]#### HPVHRT ####[facility] LABCLIA [id number] [place] [address] [place] HPV 31+33+35+39+45+51+52+56 +58+59+66+68 DNA AUSTIN+probe Ql (Cvx) Not detected Normal Not detected [facility] Comment on above: Order Comment: Speci men Type: FLUID SPECIMENOrdering Facility: [facility] Address: [address] [place] [address] Result Comment: High Risk HPV Other Type includes HPV types 31, 33, 35, 39, 45, 51, 52, 56, 58, 59, 66 and 68. Performed By: #### L [id number] ####[facility] LABORATORYCLIA [id number] [place] [address] [place] [facility] LABCLIA [id number] [place] [address] [place]#### HPVHRT ####[facility] LABCLIA [id number] [place] [id number] [place] PAP TESTon 11-22-2023 ADEQUACY Satisfactory for interpretation. Normal [facility] Comment on above: Order Comment: Speci men Type: FLUID SPECIMENOrdering Facility: [facility] Address: [address] [place] [address] Performed By: #### L [id number] ####[facility] LABORATORYCLIA [id number] [place] [address] [place] [facility] LABCLIA [id number] [place] [address] [place]#### HPVHRT ####[facility] LABCLIA [id number] [place] [address] [place] CASE REPORT Normal [facility] Comment on above: Order Comment: Speci men Type: FLUID SPECIMENOrdering Facility: [facility] Address: [address] [place] [address] Result Comment: Gyne cologic Cytology Report Case: [id number] Authorizing Provider: Pratima Kat MD Collected: 11/22/2023 02:10 PM Ordering Location: OB/Gynecology Received: 11/22/2023 04:41 PM First Screen: Veto, Ana, CT, ASCP Specimen: Pap Test, ThinPrep, Cervix Performed By: #### L [id number] ####[facility] LABORATORYCLIA [id number] [address] LABCLIA [id number] [place] [address] [place]#### HPVHRT ####[facility] LABCLIA [id number] [place] [address] [place] CLINICAL HISTORY, CYTOLOGY, CABLE FERRY OPERATOR Routine Exam Normal [facility] Comment on above: Order Comment: Speci men Type: FLUID SPECIMENOrdering Facility: [facility] Address: [address] [place] [address] Result Comment: Horm onal Contraceptive, No Menses Performed By: #### L [id number] ####[facility] LABORATORYCLIA [id number] [address] LABCLIA [id number] [place] [address] [place]#### HPVHRT ####[facility] LABCLIA [id number] [place] [address] [place] CYTOLOGY PAP OTHER INT Trichomonas vaginalis. Normal [facility] Comment on above: Order Comment: Speci men Type: FLUID SPECIMENOrdering Facility: [facility] Address: [facility] [place] [place] [address] Performed By: #### L [id number] ####[facility] LABORATORYCLIA [id number] [place] [id number] [facility] LABCLIA [id number] [address] [address] [place]#### HPVHRT ####[facility] LABCLIA [id number] [place] [id number] [place] FINAL PERFORMING LAB Normal [facility] Comment on above: Order Comment: Speci men Type: FLUID SPECIMENOrdering Facility: [facility] Address: [address] [place], [place] [address] Result Comment: Tech nical component, roof assembler screening performed at [facility], [address] [place] [address] CLIA# [id number] Diagnostic interpretation performed at [facility], [address] [place] [address] CLIA# [id number] Straightening Machine Operator: Woody Lowery M.D. Performed By: #### L [id number] ####[facility] HOSPITALIA [id number] [place] [id number] [place] [facility] LABCLIA [id number] [place] [id number] [place]#### HPVHRT ####[facility] LABCLIA [id number] [place] [id number] [place] HPV REFLEX Yes HPV Normal [facility] Comment on above: Order Comment: Speci men Type: FLUID SPECIMENOrdering Facility: [facility] Address: [address] [place], [place] [address] Performed By: #### L [id number] ####[facility] LABORATORYCLIA [id number] [place] [address] [place] [facility] LABCLIA [id number] [place] [id number] [place]#### HPVHRT ####[facility] LABCLIA [id number] [address] [address] [place] INTERPRETATION, CYTOLOGY, CABLE FERRY OPERATOR Normal [facility] Comment on above: Order Comment: Speci men Type: FLUID SPECIMENOrdering Facility: [facility] Address: [address] [place] [address] Result Comment: Nega tive for intraepithelial lesion or malignancy. Performed By: #### L [id number] ####[facility] LABORATORYCLIA [id number] [address] LABCLIA [id number] [place] [address] [place]#### HPVHRT ####[facility] LABCLIA [id number] [place] [id number] [place] PAP DISCLAIMER COMMENT The Pap Smear is a screening test for cervical cancer. False negative results occur with all screening tests, emphasizing the need for rescreening at recommended intervals, and clinical correlation. Normal [facility] Comment on above: Order Comment: Speci men Type: FLUID SPECIMENOrdering Facility: [facility] Address: [address] [place] [address] Performed By: #### L [id number] ####[facility] LABORATORYCLIA [id number] [place] [id number] [facility] LABCLIA [id number] [place] [address] [place]#### HPVHRT ####[facility] LABCLIA [id number] [address] [address] [place] PAP HORSE FARM MANAGER COMMENT This specimen has be en analyzed by the ThinPrep Imaging System, an automated imaging and review system, which assists the laboratory in evaluating cells on ThinPrep Pap tests. Following automated imaging, selected arteaga from every slide are reviewed by a roof assembler. Normal [facility] Comment on above: Order Comment: Speci men Type: FLUID SPECIMENOrdering Facility: [facility] Address: [address] [place] [address] Performed By: #### L [id number] ####[facility] LABORATORYCLIA [id number] [address] LABCLIA [id number] [address]#### HPVHRT ####[facility] LABCLIA [id number] [address] [place] .Auto Diffon 11-19-2023 Basophil, Absolute 0.1 10 3/mcL Normal 0.0-0.2 [facility] ([place]) Comment on above: Performed By: #### C PRANEETH, SCOTT, TRACY, MDW, CBC, GFR, LIP #### [address] [address] Basophils/100 WBC (Bld) 0.8 % Normal 0.0-2.5 [facility] ([place]) Comment on above: Performed By: #### C PRANEETH, SCOTT, ANEU, MDW, CBC, GFR, LIP #### [address] [address] Eosinophil, Absolute 0.1 10 3/mcL Normal 0.0-0.4 [facility] ([place]) Comment on above: Performed By: #### C PRANEETH, SCOTT, ANEU, MDW, CBC, GFR, LIP #### [address] [address] Eosinophils/100 WBC (Bld) 0.7 % Normal 0.0-7.0 [facility] ([place]) Comment on above: Performed By: #### C MP, SCOTT, ANEU, MDW, CBC, GFR, LIP #### [address] [address] Lymphocyte, Absolute 1.6 10 3/mcL Normal 0.8-3.9 [facility] ([place]) Comment on above: Performed By: #### C MP, ADGONSALO, ANEU, MDW, CBC, GFR, LIP #### [address] [address] Lymphocytes/100 WBC (Bld) 17.3 % Normal 10.0-50.0 [facility] ([place]) Comment on above: Performed By: #### C SCOTT DACOSTA ANEU, MDW, CBC, GFR, LIP #### [address] [address] Monocyte, Absolute 0.8 10 3/mcL Normal 0.2-1.0 [facility] ([place]) Comment on above: Performed By: #### C SCOTT DACOSTA ANEU, MDW, CBC, GFR, LIP #### [address] [address] Monocytes/100 WBC (Bld) 8.2 % Normal 1.7-13.0 [facility] ([place]) Comment on above: Performed By: #### C SCOTT DACOSTA ANEU, MDW, CBC, GFR, LIP #### [address] [address] Neutrophils/100 WBC (Bld) 73.0 % Normal 37.0-80.0 [facility] ([place]) Comment on above: Performed By: #### C SCOTT DACOSTA ANEU, MDW, CBC, GFR, LIP #### [address] [address] .GFRon 11-19-2023 GFR 68 ml/min/1.73sqm Normal [facility] ([place]) Comment on above: Result Comment: GFR Population [...] SCOTT DACOSTA ANEU, MDW, CBC, GFR, LIP ####[facility] [place], [place] [address] GFR Non- 56 ml/min/1.73sqm Normal [facility] ([place]) Comment on above: Result Comment: GFR Population [...] DACOSTA ANEU, MDW, CBC, GFR, LIP ####[address] [place], [place] [address] .MDWon 11-19-2023 Monocyte Distribution Width 15.19 Normal 0.00-20.00 [facility] ([place]) Comment on above: Result Comment: For ED adult patients suspected of sepsis, MDW<=20.0 does not rule out sepsis or risk of sepsis Performed By: #### C SCOTT DACOSTA ANEU, MDW, CBC, GFR, LIP #### [address] [address] .NEUABSon 11-19-2023 Neutrophil, Absolute 6.7 10 3/mcL High 2.9-6.2 [facility] ([place]) Comment on above: Performed By: #### C SCOTT DACOSTA ANEU, MDW, CBC, GFR, LIP #### [address] [address] .Urinalysis Microscopic (AO) on 11-19-2023 UA RBC 0-5 Abnormal None Seen [facility] ([place]) Comment on above: Performed By: #### U AMICAO, UA #### [address] [address] UA Squam Epithelial 5-10 Abnormal None Seen [facility] ([place]) Comment on above: Performed By: #### U MAMTA UA #### [address] [address] UA WBC 10-15 Abnormal None Seen [facility] ([place]) Comment on above: Performed By: #### U MAMTA UA #### [address] [address] CBCon 11-19-2023 Erythrocyte distribution width (RBC) [Ratio] 13.1 % Normal 11.5-14.5 [facility] ([place]) Comment on above: Performed By: #### C SCOTT DACOSTA ANEU, MDW, CBC, GFR, LIP #### [place] [address] Hematocrit (Bld) [Volume fraction] 40.9 % Normal 37.0-47.0 [facility] ([place]) Comment on above: Performed By: #### C SCOTT DACOSTA ANEU MDW, CBC, GFR, LIP #### [place] [address] Hgb 14.0 G/dL Normal 12.0-16.0 [facility] ([place]) Comment on above: Performed By: #### C SCOTT DACOSTA ANEU MDW, CBC, GFR, LIP #### [place] [address] MCH (RBC) [Entitic mass] 30.4 pg Normal 27.0-31.2 [facility] ([place]) Comment on above: Performed By: #### C SCOTT DACOSTA ANEU, MDW, CBC, GFR, LIP #### [place] [address] MCHC 34.1 G/dL Normal 33.0-37.0 [facility] ([place]) Comment on above: Performed By: #### C SCOTT DACOSTA ANEU, MDW, CBC, GFR, LIP #### [place] [id number] MCV (RBC) [Entitic vol] 89.3 fL Normal 80.0-94.0 [facility] ([place]) Comment on above: Performed By: #### C SCOTT DACOSTA ANEU, MDW, CBC, GFR, LIP #### [address] [address] Platelet 362 10 3/mcL Normal 130-400 [facility] ([place]) Comment on above: Performed By: #### C SCOTT DACOSTA ANEU, MDW, CBC, GFR, LIP #### [address] [address] Platelet mean volume (Bld) [Entitic vol] 8.1 fL Normal 7.4-10.4 [facility] ([place]) Comment on above: Performed By: #### C SCOTT DACOSTA ANEU, MDW, CBC, GFR, LIP #### [address] [address] RBC 4.59 10 6/mcL Normal 4.20-5.40 [facility] ([place]) Comment on above: Performed By: #### C SCOTT DACOSTA ANEU, MDW, CBC, GFR, LIP #### [address] [address] WBC 9.2 10 3/mcL Normal 4.6-10.8 [facility] ([place]) Comment on above: Performed By: #### C SCOTT DACOSTA ANEU, MDW, CBC, GFR, LIP #### [address] [address] CMPon 11-19-2023 Albumin Level 4.1 G/dL Normal 3.5-5.0 [facility] ([place]) Comment on above: Performed By: #### C SCOTT DACOSTA ANEU, MDW, CBC, GFR, LIP #### [address] [address] Albumin/Globulin [Mass ratio] 1.5 {ratio} Normal 1.1-2.5 [facility] ([place]) Comment on above: Performed By: #### C SCOTT DACOSTA ANEU, MDW, CBC, GFR, LIP #### [address] [address] ALP [Catalytic activity/Vol] 102 U/L Normal 40-135 [facility] ([place]) Comment on above: Performed By: #### C SCOTT DACOSTA ANEU, MDW, CBC, GFR, LIP #### [address] [address] ALT [Catalytic activity/Vol] 33 U/L Normal 14-59 [facility] ([place]) Comment on above: Performed By: #### C SCOTT DACOSTA ANEU, MDW, CBC, GFR, LIP #### [address] [address] AST [Catalytic activity/Vol] 17 U/L Normal 10-40 [facility] ([place]) Comment on above: Performed By: #### C SCOTT DACOSTA ANEU, MDW, CBC, GFR, LIP #### [address] [address] Bili Total 0.5 mg/dL Normal 0.2-1.0 [facility] ([place]) Comment on above: Result Comment: Use of this assay is not recommended for patients undergoing treatment with eltrombopag due to the potential for falsely elevated results. Performed By: #### C SCOTT DACOSTA ANEU, MDW, CBC, GFR, LIP #### [address] [address] BUN/Creatinine Ratio 10 ratio Normal 7-27 [facility] ([place]) Comment on above: Performed By: #### C SCOTT DACOSTA ANEU, MDW, CBC, GFR, LIP #### [address] [address] Calcium [Mass/Vol] 9.4 mg/dL Normal 8.4-10.2 [facility] ([place]) Comment on above: Performed By: #### C SCOTT DACOSTA ANEU, MDW, CBC, GFR, LIP #### [address] [address] Chloride [Moles/Vol] 103 mmol/L Normal 98-107 [facility] ([place]) Comment on above: Performed By: #### C SCOTT DACOSTA ANEU, MDW, CBC, GFR, LIP #### [address] [address] CO2 [Moles/Vol] 26 mmol/L Normal 22-29 [facility] ([place]) Comment on above: Performed By: #### C PRANEETH, SCOTT, MD TRACYW, CBC, GFR, LIP #### [address] [address] Creatinine [Mass/Vol] 1.12 mg/dL High 0.55-1.02 [facility] ([place]) Comment on above: Performed By: #### C SCOTT DACOSTA ANEU, MDW, CBC, GFR, LIP #### [address] [address] Electrolyte Balance 10.0 mEq/L Normal 4.0-15.0 [facility] ([place]) Comment on above: Performed By: #### C SCOTT DACOSTA, TRACY MDW, CBC, GFR, LIP #### [address] [address] Globulin 2.8 G/dL Normal [facility] ([place]) Comment on above: Performed By: #### C SCOTT DACOSTA, MD TRACYW, CBC, GFR, LIP #### [address] [address] Glucose [Mass/Vol] 88 mg/dL Normal 70-105 [facility] ([place]) Comment on above: Performed By: #### C SCOTT DACOSTA ANEU MDW, CBC, GFR, LIP #### [address] [address] Potassium [Moles/Vol] 3.5 mmol/L Normal 3.5-5.1 [facility] ([place]) Comment on above: Performed By: #### C PRANEETH, SCOTT, TRACY, MDW, CBC, GFR, LIP #### [address] [address] Sodium [Moles/Vol] 139 mmol/L Normal 136-145 [facility] ([place]) Comment on above: Performed By: #### C SCOTT DACOSTA ANEU, MDW, CBC, GFR, LIP #### [address] [place] [address] [place], [place] [address] Total Protein 6.9 G/dL Normal 6.4-8.2 [facility] ([place]) Comment on above: Performed By: #### C SCOTT DACOSTA ANEU, MDW, CBC, GFR, LIP #### [place] [place] [address] [place], [place] [address] Urea nitrogen [Mass/Vol] 11 mg/dL Normal 7-18 [facility] ([place]) Comment on above: Performed By: #### C SCOTT DACOSTA ANEU, MDW, CBC, GFR, LIP #### [place] [id number] [place], [place] [address] LABORATORYOrdered By: SYSTEM SYSTEM on 11-19-2023 Albumin [...] 11-19-2023 Lipase Level 36 U/L Normal 16-77 [facility] ([place]) Comment on above: Performed By: #### C MP, SCOTT, ANEU, MDW, CBC, GFR, LIP #### [address] [address] UAon 11-19-2023 Color (U) Yellow Normal [facility] ([place]) Comment on above: Performed By: #### U AMICAO, UA #### [place] [address] Glucose (U) [Mass/Vol] Negative Normal Negative [facility] ([place]) Comment on above: Performed By: #### U AMICAO, UA #### [place] [address] Ketones Ql (U) Negative Normal Negative [facility] ([place]) Comment on above: Performed By: #### U AMICAO, UA #### [place] [address] UA Appear Clear Normal Clear [facility] ([place]) Comment on above: Performed By: #### U AMICAO, UA #### [address] [address] UA Blood Negative Normal Negative [facility] ([place]) Comment on above: Performed By: #### U AMICAO, UA #### [address] [address] UA Leuk Est Moderate Abnormal Negative [facility] ([place]) Comment on above: Performed By: #### U AMICAO, UA #### [address] [address] UA Nitrite Negative Normal Negative [facility] ([place]) Comment on above: Performed By: #### U AMICAO, UA #### [address] [address] UA pH 6.0 Normal 5.0 - 8.0 [facility] ([place]) Comment on above: Performed By: #### U AMICAO, UA #### [place] [address] [place], [place] [address] UA Protein Negative Normal Negative [facility]) Comment on above: Performed By: #### U AMICAO, UA #### [address] [place], [place] [address] UA Spec Grav >=1.030 Abnormal 1.015-1.025 [facility] ([place]) Comment on above: Performed By: #### U AMICAO, UA #### [place] [id number] [place], [place] [address] UA Specimen Type Clean Catch Normal [facility]) Comment on above: Performed By: #### U AMICAO, UA #### [place] [id number] [place], [place] [address] UA Urobilinogen 0.2 E.U./dL Normal 0.2-1.0 [facility] ([place]) Comment on above: Performed By: #### U AMICAO, UA #### [address] [address] Urobilinogen (U) [Mass/Vol] Negative Normal Negative [facility] ([place]) Comment on above: Performed By: #### U AMICAO, UA #### [address] [address] Sheng 10-10-2023 ANNEN Telephone (AGSPINE3) SANDIE BECERRIL ([id number]) 1990 F Date Time Provider Department 10/10/23 [...] Danis Lobato October 10, 2023 11:41 AM Allergies [...] daily. 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 Sandie Becerril is here for a Depo Provera injection. Patient brought medication. Date last injected: 06/06/23 Depo-Provera, 150 mg, administered IM right upper quadrant gluteus, Lot # [id number], expiration date 04/05/2025. Depo-Provera was given without incident. Date of last menses: Patient's last menstrual period was 06/15/2023 (approximate). Irregular bleeding - No Menses ceased - Yes STD prevention discussed: Yes Patient instructed to return to clinic in 12 weeks. [email or web address] Provider Enedelia Dumont CNM was present in [...] daily. - Condoms Latex Lubricated (CONDOMS-NATALIE LUBRICATED) [facility] [place] Use one condom before and during every act of intercourse Facility-Administered Medications as of 08/29/2023 - medroxyPROGESTERone 150 mg injection (DEPO-PROVERA) Meds Comments as of 09/28/2009: All medications reviewed todaySeptember 28, 2009 Haydee Lodr Rn Problem List As Of Date 08/29/2023 Noted Resolved Excessive or frequent menstruation [N92.0] 05/29/2011 Dysmenorrhea [N94.6] 05/29/2011 Dizziness [R42] 05/29/2011 Disposition: Return in 12 weeks (on 11/21/2023). Follow-up and Disposition History for Encounter Date Provider Department Center 08/29/2023 [id number] MONOTYPE OPERATOR [facility] *MELINA Stoner Encounter Status:Closed by NETTE BROWN on 08/29/23 [facility] CNOVon 07-13-2023 CNOV Office Visit (SPAGWO ) SANDIE BECERRIL ([id number]) 1990 F Date Time Provider Department 07/13/23 [...] Neurological: Positive for weakness, numbness and headaches. Psychiatric/Behavioral : Positive for dysphoric mood and sleep disturbance. Negative for suicidal ideas. The patient is nervous/anxious. 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 No suspicious activity was identified. AG SPINE COMBINATION 06/29/2023 07/13/2023 Questionnaire GREENLIGHT GREENLIGHT Completed Date 06/29/2023 07/13/2023 Questionnaire Opiod Risk Tool Opiod Risk Tool Completed (more content not included)... Normal [facility] CNOVon 06-29-2023 CNOV Office Visit (SPAGWO ) SANDIE BECERRIL ([id number]) 1990 F Date Time Provider Department 06/29/23 9:00 AM ANNA MARIE PÉREZ During your visit today, we recorded the following information about you: Pulse Respiration 86/minute 14/minute Anna Marie Pérez APRN.CNP 06/29/2023 9:38 AM Signed [facility] Today's Date: 06/28/2023 Name: Sandie Becerril : [...] return to the office. Anna Marie Pérez APRN.Lynn Interiano MA 06/29/2023 9:38 AM Signed Review of [...] for numbness. Negative for weakness and headaches. Psychiatric/Behavioral : Positive for dysphoric mood. Negative for sleep disturbance and suicidal ideas. The patient is nervous/anxious. Referring Provider: LIS FREEDMAN [[id number]] Allergies As of Date: 06/29/2023 Noted Allergy [...] multiple sites [M25.50] Order(s):CONSULT TO PAIN MGT [[id number]] Order #: [id number]: 1 Prescriptions as of 06/29/2023 - amoxicillin [...] Status:Closed by ANNA MARIE PÉREZ on 06/29/23 [facility] Sheng 06-25-2023 CNPN Telephone (RHBATH) SANDIE BECERRIL ([id number]) 1990 F Date Time Provider Department 06/25/23 [...] going on. Patient was seen at [facility], an Urgent Care through [facility]. Patient was started on Macrobid and [...] daily. - Condoms Latex Lubricated (CONDOMS-NATALIE LUBRICATED) [facility] [place] Use one condom before and during [...] Status:Closed by USHA MUNOZ on 06/25/23 Normal [facility] THEA BY IFA SCREENon 06-19-19 Nuclear Ab Ql (S) Negative Negative [facility] CCP ANTIBODY IGGon Cyclic citrullinated peptide IgG Qn <20 Units [facility] Cyclic citrullinated peptide IgG Qnon 06-19-2023 CCP Antibody IgG Qualitative Negative Negative [facility] DNA ANTIBODY DS BLDon 2023 DNA Antibody 13 IU/mL <=200 IU/mL [facility] DNA Antibody Qualitative Interpretation Negative Negative [facility] RHEUMATOID FACTOR BLon 06-19 Rheumatoid factor Qn 16 [IU]/mL High <16 IU/mL [facility] [employer] ANTIBODY BLOODon 024 Ribonucleoprotein extractable nuclear Ab Qn (S) 0.4 AI <1.0 AI [facility] Ribonucleoprotein extractabl e nuclear Ab Qn (S)on 06-19-2023 [employer] Antibody QUAL Negative Negative [facility] SJOGREN ABS SSA/SSBon 2023 Sjogrens syndrome-A extractable nuclear Ab Qn (S) <1.0 AI [facility] Sjogrens syndrome-B extractable nuclear Ab Qn (S) <1.0 AI [facility] SSA Antibody Qual Negative Negative [facility] SSB Antibody Qual Negative Negative [facility] JUNE IGG ABon 06-19-2023 June extractable nuclear IgG Qn (S) <1.0 AI [facility] June extractable nuclear Ig G Qn (S)on 06-19-2023 SM Antibody Qual Negative Negative [facility] 25(OH)D3 SerPl-mCncon 2023 25-hydroxyvitamin D3 [Mass/Vol] 25.4 ng/mL Low >=30.0 [facility] Comment on above: Order Comment: Speci men Type: BLOOD SPECIMEN Ordering Facility: [facility] Address: [address] [place] [address] [place] [address] Result Comment: Clas sification of 25 [place] Vitamin D status: Deficiency: <= 20.0 ng/ml. Insufficiency: 21.0-29.0 ng/ml. Sufficiency: >= 30.0 ng/ml. Performed By: #### X CLARA, 71307-2, 50459-4 #### [facility] CLIA [id number] [address] [place] [address] [place] THEA BY IFA SCREENon 06-18-19 24 Nuclear Ab Ql (S) Negative Normal Negative [facility] Comment on above: Order Comment: Speci men Type: BLOOD SPECIMEN Ordering Facility: [facility] Address: [address] [place] [address] Result Comment: Anti -nuclear antibody test is used as an aid in diagnosis of systemic autoimmune diseases. Where positive and clinically warranted, follow-up using disease-specific testing is recommended. Low positive titers are not uncommon with advanced age, certain chronic infections, and malignancies among others. Test methodology: Indirect fluorescence immunoassay (IFA) using HEp-2 cells. Performed By: #### X SSAFlavia, 40389-9, 67759-1 #### [facility] CLIA [id number] [address] [place] [address] [place] CBC W Auto Differential pane l (Bld)on 06-18-2023 Basophils (Bld) [#/Vol] 0.07 10*3/uL <0.11 k/uL [facility] Basophils/100 WBC (Bld) 1.2 % C [facility] Differential cell count method Nom (Bld) Auto [facility] Eosinophils (Bld) [#/Vol] 0.09 10*3/uL <0.46 k/uL [facility] Eosinophils/100 WBC (Bld) 1.5 % [facility] Erythrocyte distribution width (RBC) [Ratio] 12.6 % 11.5 - 15.0 % [facility] Hematocrit (Bld) [Volume fraction] 43.5 % 36.0 - 46.0 % [facility] Hemoglobin (Bld) [Mass/Vol] 14.9 g/dL 11.5 - 15.5 g/dL [facility] Immature granulocytes (Bld) [#/Vol] <0.10 k/uL [facility] Immature granulocytes/100 WBC (Bld) 0.3 % [facility] Lymphocytes (Bld) [#/Vol] 1.54 10*3/uL 1.00 - 4.00 k/uL [facility] Lymphocytes/100 WBC (Bld) 25.7 % [facility] MCH (RBC) [Entitic mass] 31.0 pg 26.0 - 34.0 pg [facility] MCHC (RBC) [Mass/Vol] 34.3 g/dL 30.5 - 36.0 g/dL [facility] MCV (RBC) [Entitic vol] 90.4 fL 80.0 - 100.0 fL [facility] Monocytes (Bld) [#/Vol] 0.43 10*3/uL <0.87 k/uL [facility] Monocytes/100 WBC (Bld) 7.2 % C [facility] Neutrophils (Bld) [#/Vol] 3.85 10*3/uL 1.45 - 7.50 k/uL [facility] Neutrophils/100 WBC (Bld) 64.1 % [facility] Nucleated RBC (Bld) [#/Vol] <0.01 k/uL [facility] Nucleated RBC/100 WBC (Bld) [Ratio] 0.0 /100 WBC [facility] Platelet mean volume (Bld) [Entitic vol] 10.3 fL 9.0 - 12.7 fL [facility] Platelets (Bld) [#/Vol] 386 10*3/uL 150 - 400 k /uL [facility] RBC (Bld) [#/Vol] 4.81 10*6/uL 3.90 - 5.2 0 m/uL [facility] WBC (Bld) [#/Vol] 6.00 10*3/uL 3.70 - 11. 00 k/uL [facility] Basophils (Bld) [#/Vol] 0.07 10*3/uL Normal <0.11 [facility] Comment on above: Order Comment: Speci men Type: BLOOD SPECIMEN Ordering Facility: [facility] Address: [address] [place], [place] [address] Performed By: #### 5 7021-8 #### [facility] CLIA [id number] [address] Basophils/100 WBC (Bld) 1.2 % Normal A [facility] Comment on above: Order Comment: Speci men Type: BLOOD SPECIMEN Ordering Facility: [facility] Address: [address] [place] [address] Performed By: #### 5 7021-8 #### [facility] CLIA [id number] [address] Differential cell count method Nom (Bld) Auto Normal [facility] Comment on above: Order Comment: Speci men Type: BLOOD SPECIMEN Ordering Facility: [facility] Address: [address] [place] [address] Performed By: #### 5 7021-8 #### [facility] CLIA [id number] [address] OF [facility] Eosinophils (Bld) [#/Vol] 0.09 10*3/uL Normal <0.46 [facility] Comment on above: Order Comment: Speci men Type: BLOOD SPECIMEN Ordering Facility: [facility] Address: [address] [place] [address] Performed By: #### 5 7021-8 #### [facility] CLIA [id number] [address] Eosinophils/100 WBC (Bld) 1.5 % Normal [facility] Comment on above: Order Comment: Speci men Type: BLOOD SPECIMEN Ordering Facility: [facility] Address: [address] [place] [address] Performed By: #### 5 7021-8 #### [facility] CLIA [id number] [address] [place] Erythrocyte distribution width (RBC) [Ratio] 12.6 % Normal 11.5-15.0 [facility] Comment on above: Order Comment: Speci men Type: BLOOD SPECIMEN Ordering Facility: [facility] Address: [address] [place] [address] Performed By: #### 5 7021-8 #### [facility] CLIA [id number] [address] OF [place] Hematocrit (Bld) [Volume fraction] 43.5 % Normal 36.0-46.0 [facility] Comment on above: Order Comment: Speci men Type: BLOOD SPECIMEN Ordering Facility: [facility] Address: [address] [place] [address] Performed By: #### 5 7021-8 #### [facility] CLIA [id number] [address] [place] Hemoglobin (Bld) [Mass/Vol] 14.9 g/dL Normal 11.5-15.5 [facility] Comment on above: Order Comment: Speci men Type: BLOOD SPECIMEN Ordering Facility: [facility] Address: [address] [place] [address] Performed By: #### 5 7021-8 #### [facility] CLIA [id number] [address] [place] Immature granulocytes (Bld) [#/Vol] 10*3/uL Normal <0.10 [facility] Comment on above: Order Comment: Speci men Type: BLOOD SPECIMEN Ordering Facility: [facility] Address: [address] [place] [address] Performed By: #### 5 7021-8 #### [facility] CLIA [id number] [address] [place] Immature granulocytes/100 WBC (Bld) 0.3 % Normal [facility] Comment on above: Order Comment: Speci men Type: BLOOD SPECIMEN Ordering Facility: [facility] Address: [address] [place] [address] Performed By: #### 5 7021-8 #### [facility] CLIA [id number] [address] [place] Lymphocytes (Bld) [#/Vol] 1.54 10*3/uL Normal 1.00-4.00 [facility] Comment on above: Order Comment: Speci men Type: BLOOD SPECIMEN Ordering Facility: [facility] Address: [address] [place] [address] Performed By: #### 5 7021-8 #### [facility] CLIA [id number] [address] Lymphocytes/100 WBC (Bld) 25.7 % Normal [facility] Comment on above: Order Comment: Speci men Type: BLOOD SPECIMEN Ordering Facility: [facility] Address: [address] [place] [address] Performed By: #### 5 7021-8 #### [facility] CLIA [id number] [address] MCH (RBC) [Entitic mass] 31.0 pg Normal 26.0-34.0 [facility] Comment on above: Order Comment: Speci men Type: BLOOD SPECIMEN Ordering Facility: [facility] Address: [address] [place] [address] Performed By: #### 5 7021-8 #### [facility] CLIA [id number] [address] MCHC (RBC) [Mass/Vol] 34.3 g/dL Normal 30.5-36.0 [facility] Comment on above: Order Comment: Speci men Type: BLOOD SPECIMEN Ordering Facility: [facility] Address: [address] [place] [address] Performed By: #### 5 7021-8 #### [facility] CLIA [id number] [address] MCV (RBC) [Entitic vol] 90.4 fL Normal 80.0-100.0 [facility] Comment on above: Order Comment: Speci men Type: BLOOD SPECIMEN Ordering Facility: [facility] Address: [address] [place] [address] Performed By: #### 5 7021-8 #### [facility] CLIA [id number] [address] Monocytes (Bld) [#/Vol] 0.43 10*3/uL Normal <0.87 [facility] Comment on above: Order Comment: Speci men Type: BLOOD SPECIMEN Ordering Facility: [facility] Address: [address] [place] [address] Performed By: #### 5 7021-8 #### [facility] CLIA [id number] [address] OF [place] Monocytes/100 WBC (Bld) 7.2 % Normal A [facility] Comment on above: Order Comment: Speci men Type: BLOOD SPECIMEN Ordering Facility: [facility] Address: [address] [place] [address] Performed By: #### 5 7021-8 #### [facility] CLIA [id number] [address] [place] Neutrophils (Bld) [#/Vol] 3.85 10*3/uL Normal 1.45-7.50 [facility] Comment on above: Order Comment: Speci men Type: BLOOD SPECIMEN Ordering Facility: [facility] Address: [address] [place] [address] Performed By: #### 5 7021-8 #### [facility] CLIA [id number] [address] [place] Neutrophils/100 WBC (Bld) 64.1 % Normal [facility] Comment on above: Order Comment: Speci men Type: BLOOD SPECIMEN Ordering Facility: [facility] Address: [address] [place] [address] Performed By: #### 5 7021-8 #### [facility] CLIA [id number] [address] [place] Nucleated RBC (Bld) [#/Vol] 10*3/uL Normal <0.01 [facility] Comment on above: Order Comment: Speci men Type: BLOOD SPECIMEN Ordering Facility: [facility] Address: [address] [place] [address] Performed By: #### 5 7021-8 #### [facility] CLIA [id number] [address] [place] Nucleated RBC/100 WBC (Bld) [Ratio] 0.0 /100 WBC Normal [facility] Comment on above: Order Comment: Speci men Type: BLOOD SPECIMEN Ordering Facility: [facility] Address: [address] [place] [address] Performed By: #### 5 7021-8 #### [facility] CLIA [id number] [address] [place] Platelet mean volume (Bld) [Entitic vol] 10.3 fL Normal 9.0-12.7 [facility] Comment on above: Order Comment: Speci men Type: BLOOD SPECIMEN Ordering Facility: [facility] Address: [address] [place] [address] Performed By: #### 5 7021-8 #### [facility] CLIA [id number] [address] [place] Platelets (Bld) [#/Vol] 386 10*3/uL Normal 150-400 [facility] Comment on above: Order Comment: Speci men Type: BLOOD SPECIMEN Ordering Facility: [facility] Address: [address] [place] [address] Performed By: #### 5 7021-8 #### [facility] CLIA [id number] [address] [place] RBC (Bld) [#/Vol] 4.81 10*6/uL Normal 3.90-5.20 [facility] Comment on above: Order Comment: Speci men Type: BLOOD SPECIMEN Ordering Facility: [facility] Address: [address] [place] [address] Performed By: #### 5 7021-8 #### [facility] CLIA [id number] [address] [place] WBC (Bld) [#/Vol] 6.00 10*3/uL Normal 3.70-11.00 [facility] Comment on above: Order Comment: Speci men Type: BLOOD SPECIMEN Ordering Facility: [facility] Address: [address] [place] [address] Performed By: #### 5 7021-8 #### [facility] CLIA [id number] [address] [place] [address] [place] CNOVon 06-18-2023 CNOV Office Visit (RHBATH ) SANDIE BECERRIL ([id number]) 1990 F Date Time Provider Department 06/18/23 10:20 AM LIS FREEDMAN RHBDAWN During your visit today, we recorded the [...] cancer'. Juanis (more content not included)... Normal [facility] CNPManjula 06-18-2023 [facility] SANDIE BECERRIL ([id number]) 1990 F Date Time Provider Department 06/18/23 LIS FREEDMAN [facility] During your visit today, we recorded the following information about you: Aimee Terrazas 06/18/2023 1:40 PM Signed Internal referral Pain Mgt Conf @[id number] Aimee Terrazas Allergies As of Date: 06/18/2023 Noted Allergy Reaction NAPROXEN 06/26/2014 14 - Other: See Comments Comments: stomache pain AND diarrhea OTC skin products [Other] 03/07/2010 14 - Other: See Comments Comments: Skin sensitivity to certain OTC skin products Date Reviewed: 06/06/2023 Reviewed by: Nette Brown, RN - Fully Assessed Reason for Visit: Initial [...] Status:Closed by AIMEE TERRAZAS on 06/18/23 Normal [facility] Comprehensive metabolic 2000 panelon 06-18-2023 Albumin [Mass/Vol] 4.7 g/dL 3.9 - 4.9 g/dL Cl [facility] ALP [Catalytic activity/Vol] 76 U/L 34 - 123 U/L [facility] ALT With P-5'-P [Catalytic activity/Vol] 38 U/L 7 - 38 U/L [facility] Anion gap [Moles/Vol] 11 mmol/L 9 - 18 mmol/L [facility] AST With P-5'-P [Catalytic activity/Vol] 27 U/L 13 - 35 U/L [facility] Bilirubin [Mass/Vol] 0.7 mg/dL 0.2 - 1 .3 mg/dL [facility] Calcium [Mass/Vol] 9.9 mg/dL 8.5 - 10. 2 mg/dL [facility] Chloride [Moles/Vol] 107 mmol/L High 97 - 10 5 mmol/L [facility] CO2 [Moles/Vol] 24 mmol/L 22 - 30 mmol/L [facility] Creatinine [Mass/Vol] 1.06 mg/dL High 0.58 - 0.96 mg/dL [facility] Estimated Glomerular Filtration Rate 72 mL/min/1.73m >=60 mL/min/1.73m [facility] Glucose [Mass/Vol] 87 mg/dL 74 - 99 mg/dL [facility] Potassium [Moles/Vol] 4.2 mmol/L 3.7 - 5.1 mmol/L [facility] Protein [Mass/Vol] 7.8 g/dL 6.3 - 8.0 g/dL [facility] Sodium [Moles/Vol] 142 mmol/L 136 - 144 mmol/L [facility] Urea nitrogen [Mass/Vol] 14 mg/dL 7 - 21 mg/dL [facility] Albumin [Mass/Vol] 4.7 g/dL Normal 3.9-4.9 [facility] Comment on above: Order Comment: Speci men Type: BLOOD SPECIMEN Ordering Facility: [facility] Address: [address] [place] [address] Performed By: #### X SSAB, 37056-1, 01868-6 #### [facility] CLIA [id number] [address] [place] [address] [place] ALP [Catalytic activity/Vol] 76 U/L Normal 34-123 [facility] Comment on above: Order Comment: Speci men Type: BLOOD SPECIMEN Ordering Facility: [facility] Address: [address] [place], [place] [address] Performed By: #### X SSAB, 24502-8, 11564-2 #### [facility] CLIA [id number] [address] [place] [address] [place] ALT With P-5'-P [Catalytic activity/Vol] 38 U/L Normal 7-38 [facility] Comment on above: Order Comment: Speci men Type: BLOOD SPECIMEN Ordering Facility: [facility] Address: [address] [place] [address] Performed By: #### X SSAB, 93420-9, 40392-3 #### [facility] CLIA [id number] [address] [place] [address] [place] Anion gap [Moles/Vol] 11 mmol/L Normal 9-18 [facility] Comment on above: Order Comment: Speci men Type: BLOOD SPECIMEN Ordering Facility: [facility] Address: [address] [place] [address] Performed By: #### X SSAB, 65327-1, 99822-1 #### [facility] CLIA [id number] [address] [place] [address] [place] AST With P-5'-P [Catalytic activity/Vol] 27 U/L Normal 13-35 [facility] Comment on above: Order Comment: Speci men Type: BLOOD SPECIMEN Ordering Facility: [facility] Address: [address] [place] [address] Performed By: #### X SSAB, 75493-7, 55375-6 #### [facility] CLIA [id number] [address] [place] [address] [place] Bilirubin [Mass/Vol] 0.7 mg/dL Normal 0.2-1.3 [facility] Comment on above: Order Comment: Speci men Type: BLOOD SPECIMEN Ordering Facility: [facility] Address: [address] [place] [address] Performed By: #### X SSAB, 27295-1, #### [facility] CLIA [id number] [address] [place] [address] [place] Calcium [Mass/Vol] 9.9 mg/dL Normal 8.5-10.2 [facility] Comment on above: Order Comment: Speci men Type: BLOOD SPECIMEN Ordering Facility: [facility] Address: [address] [place] [address] Performed By: #### X SSAB, 44912-8, #### [facility] CLIA [id number] [address] [place] [address] [place] Chloride [Moles/Vol] 107 mmol/L High 97-105 [facility] Comment on above: Order Comment: Speci men Type: BLOOD SPECIMEN Ordering Facility: [facility] Address: [address] [place] [address] Performed By: #### X SSAB, 12981-4, #### [facility] CLIA [id number] [address] [place] [address] [place] CO2 [Moles/Vol] 24 mmol/L Normal 22-30 [facility] Comment on above: Order Comment: Speci men Type: BLOOD SPECIMEN Ordering Facility: [facility] Address: [address] [place] [address] Performed By: #### X SSAB, 69807-5, #### [facility] CLIA [id number] [address] [place] [address] [place] Creatinine [Mass/Vol] 1.06 mg/dL High 0.58-0.96 [facility] Comment on above: Order Comment: Speci men Type: BLOOD SPECIMEN Ordering Facility: [facility] Address: [address] [place] [address] Performed By: #### X SSAB, 88633-1, #### [facility] CLIA [id number] [address] [place] [address] [place] Creatinine and Glomerular filtration rate.predicted panel (S/P/Bld) 72 mL/min/1.73m??? Normal >=60 [facility] Comment on above: Order Comment: Hmuera aguila Type: BLOOD SPECIMEN Ordering Facility: [facility] Address: [address] [place] [address] Result Comment: Xiomara mated Glomerular Filtration Rate [...] actual GFR. Performed By: #### X SSAB, 08475-0, 50982-8 #### [facility] CLIA [id number] [address] [place] [address] [place] Glucose [Mass/Vol] 87 mg/dL Normal 74-99 [facility] Comment on above: Order Comment: Humera aguila Type: BLOOD SPECIMEN Ordering Facility: [facility] Address: [address] [place] [address] Result Comment: The [employer] Diabetes Association (ADA) provides guidance for cutoff [...] Standards of Medical Care in Diabetes 2016, [employer] Diabetes Association. Diabetes Care. 2016.39(Suppl 1). Performed By: #### X SSAB, 74679-1, 25888-1 #### [facility] CLIA [id number] [address] [place] [address] [place] Potassium [Moles/Vol] 4.2 mmol/L Normal 3.7-5.1 [facility] Comment on above: Order Comment: Speci men Type: BLOOD SPECIMEN Ordering Facility: [facility] Address: [address] [place] [address] Performed By: #### X SSAB, 68618-8, 85107-5 #### [facility] CLIA [id number] [address] [place] [address] [place] Protein [Mass/Vol] 7.8 g/dL Normal 6.3-8.0 [facility] Comment on above: Order Comment: Speci men Type: BLOOD SPECIMEN Ordering Facility: [facility] Address: [address] [place] [address] Performed By: #### X SSAB, 27209-2, 23314-7 #### [facility] CLIA [id number] [address] [place] [address] [place] Sodium [Moles/Vol] 142 mmol/L Normal 136-144 [facility] Comment on above: Order Comment: Speci men Type: BLOOD SPECIMEN Ordering Facility: [facility] Address: [address] [place] [address] Performed By: #### X SSAB, 98567-5, #### [facility] CLIA [id number] [address] [place] [address] [place] Urea nitrogen [Mass/Vol] 14 mg/dL Normal 7-21 [facility] Comment on above: Order Comment: Speci men Type: BLOOD SPECIMEN Ordering Facility: [facility] Address: [address] [place] [address] Performed By: #### X SSAB, 89467-4, #### [facility] CLIA [id number] [address] [place] [address] [place] Creatinine Unsp time (U) [Ma ss/Vol]on 06-18-2023 Creatinine (U) [Mass/Vol] 107.7 mg/dL 42.2 - 237.9 mg/dL [facility] Creatinine (U) [Mass/Vol] 107.7 mg/dL Normal 42.2-237.9 [facility] Comment on above: Order Comment: Speci men Type: URINE SPECIMEN Ordering Facility: [facility] Address: [address] [place] [address] Performed By: #### 3 5674-1, 2888-6 #### [facility] CLIA [id number] 1 [place] [address] [place] Cyclic citrullinated peptide IgG Qnon 06-18-2023 CCP ANTIBODY IGG QUALITATIVE Negative Normal Negative [facility] Comment on above: Order Comment: Speci men Type: BLOOD SPECIMEN Ordering Facility: [facility] Address: [address] [place] [address] Performed By: #### X SSAB, 15939-1, 89724-0 #### [facility] CLIA [id number] [address] [place] [address] [place] DNA ANTIBODY DS BLDon 2023 DNA ANTIBODY 13 IU/mL Normal <=200 [facility] Comment on above: Order Comment: Speci men Type: BLOOD SPECIMEN Ordering Facility: [facility] Address: [address] [place] [address] Result Comment: Nega tive: <200 IU/mL Equivocal: 201-300 IU/mL Moderate Positive: 301-800 IU/mL Strong Positive: >801 IU/mL Performed By: #### X SSAB, 04227-5, 08148-2 #### [facility] CLIA [id number] [address] [place] [address] [place] DNA ANTIBODY QUALITATIVE INTERPRETATION Negative Normal Negative [facility] Comment on above: Order Comment: Speci men Type: BLOOD SPECIMEN Ordering Facility: [facility] Address: [address] [place] [address] Performed By: #### X SSAB, 69609-8, 43002-4 #### [facility] CLIA [id number] [address] [place] [address] [place] PAT PROFESSOR OF SOCIAL WORK Ab Ser-aCncon 2023 Ribonucleoprotein extractable nuclear Ab Qn (S) 0.4 AI Normal <1.0 [facility] Comment on above: Order Comment: Speci men Type: BLOOD SPECIMEN Ordering Facility: [facility] Address: [address] [place] [address] Performed By: #### X SSAB, 15896-6, 18543-1 #### [facility] CLIA [id number] [address] [place] [address] [place] PAT SM IgG Ser-aCncon 2023 June extractable nuclear IgG Qn (S) <0.2 Normal <1.0 [facility] Comment on above: Order Comment: Speci men Type: BLOOD SPECIMEN Ordering Facility: [facility] Address: [address] [place] [address] Performed By: #### X SSAB, 02908-2, 08536-6 #### [facility] CLIA [id number] [address] [place] [address] [place] No Panel Informationon 06-18 [facility] PROTEIN RANDOM URon 06-18-19 24 Protein (U) [Mass/Vol] 7 mg/dL 0 - 20 mg/dL [facility] Prot Ur-mCncon 06-18-2023 Protein (U) [Mass/Vol] 7 mg/dL Normal 0-20 [facility] Comment on above: Order Comment: Speci men Type: URINE SPECIMEN Ordering Facility: [facility] Address: [address] [place] [address] Performed By: #### 3 5674-1, 2888-6 #### [facility] CLIA [id number] [address] [place] [address] [place] Rheumatoid fact SerPl-aCncon 06-18-2023 Rheumatoid factor Qn 16 [IU]/mL High <16 [facility] Comment on above: Order Comment: Speci men Type: BLOOD SPECIMEN Ordering Facility: [facility] Address: [address] [place] [address] Performed By: #### 1 1572-5 #### [facility] CLIA [id number] [address] [place] [address] [place] Ribonucleoprotein extractabl e nuclear Ab Qn (S)on 06-18-2023 ANTI-PROFESSOR OF SOCIAL WORK QUAL Negative Normal Negative [facility] Comment on above: Order Comment: Speci men Type: BLOOD SPECIMEN Ordering Facility: [facility] Address: [address] [place] [address] Performed By: #### X SSAB, 57883-2, 20662-0 #### [facility] CLIA [id number] [address] [place] [address] [place] SJOGREN ABS SSA/SSBon 2023 ANTI-SSB QUAL Negative Normal Negative [facility] Comment on above: Order Comment: Speci men Type: BLOOD SPECIMEN Ordering Facility: [facility] Address: [address] [place] [address] Result Comment: Anti -SSB (anti-La) antibody is used as an aid in diagnosis of a variety of systemic autoimmune diseases, especially for Sjogren's syndrome and systemic lupus erythematosus. Clinical correlation is required. Test Methodology: Multiplex flow immunoassay. Performed By: #### X SSAB, 85106-0, 24118-1 #### [facility] CLIA [id number] [address] [place] [address] [place] Sjogrens syndrome-A extractable nuclear Ab Qn (S) <0.2 Normal <1.0 [facility] Comment on above: Order Comment: Speci men Type: BLOOD SPECIMEN Ordering Facility: [facility] Address: [address] [place] [address] Performed By: #### X SSAB, 99060-0, 83897-3 #### [facility] CLIA [id number] [address] [place] [address] [place] Sjogrens syndrome-B extractable nuclear Ab Qn (S) <0.2 Normal <1.0 [facility] Comment on above: Order Comment: Parishi ayla Type: BLOOD SPECIMEN Ordering Facility: [facility] Address: [address] [place] [address] Performed By: #### X SSAB, 46292-7, 44036-9 #### [facility] CLIA [id number] [address] [place] [address] [place] SSA ANTIBODY QUAL Negative Normal Negative [facility] Comment on above: Order Comment: Speci men Type: BLOOD SPECIMEN Ordering Facility: [facility] Address: [address] [place] [address] Result Comment: Anti -SSA (anti-Ro) antibody is used as an aid in diagnosis of a variety of systemic autoimmune diseases, Sjogren's syndrome among others. Clinical correlation is required. Test Methodology: Multiplex flow immunoassay. ??? \X09\ Performed By: #### X SSAB, 75050-8, 97804-8 #### [facility] CLIA [id number] [address] [place] [address] [place] June extractable nuclear Ig G Qn (S)on 06-18-2023 SM ANTIBODY QUAL Negative Normal Negative [facility] Comment on above: Order Comment: Humera aguila Type: BLOOD SPECIMEN Ordering Facility: [facility] Address: [address] [place] [address] Result Comment: Anti -Sm (June) antibody is used as an aid in diagnosis of systemic lupus erythematosus and its presence is associated with renal disease. A negative result cannot rule out systemic lupus erythematosus. Clinical correlation is required. Test Methodology: Multiplex flow immunoassay. Performed By: #### X SSAB, 57230-0, 95456-7 #### [facility] CLIA [id number] [address] [place] [address] [place] Urinalysis complete panel (U )on 06-18-2023 Bilirubin Ql (U) Negative Negative [facility] Clarity (Unsp spec) Turbid Abnormal Clear Abelardo [facility] Color (U) Light Yellow yellow [facility] Epithelial cells LM.HPF (Urine sed) [#/Area] Few [facility] Glucose Test strip (U) [Mass/Vol] Negative Trace, Negative [facility] Hemoglobin Ql (U) Trace Negative, Trace [facility] Ketones Ql (U) Negative Negative, Trace [facility] Leukocyte esterase Test strip Ql (U) 500 Anika/uL Abnormal Negative, 25 Anika/uL [facility] Nitrite Ql (U) Negative Negative [facility] pH (U) 5.5 [pH] 5.0 - 8.0 [facility] Protein (U) [Mass/Vol] Negative Trace , Negative [facility] RBC LM.HPF (Urine sed) [#/Area] /[HPF] Abnormal 0-3 /HPF [facility] Specific gravity (U) [Rel density] 1.017 1.005 - 1.030 [facility] Urobilinogen Ql (U) Normal Normal [facility] WBC LM.HPF (Urine sed) [#/Area] /[HPF] Abnormal 0-5 /HPF [facility] Bilirubin Ql (U) Negative Normal Negative [facility] Comment on above: Order Comment: Speci men Type: URINE SPECIMEN Ordering Facility: [facility] Address: [address] [place] [address] Performed By: #### 3 5674-1, 2887-10 #### [facility] CLIA [id number] [address] [place] Clarity (Unsp spec) Turbid Abnormal Clear [facility] Comment on above: Order Comment: Speci men Type: URINE SPECIMEN Ordering Facility: [facility] Address: [address] [place] [address] Performed By: #### 3 5674-1, 2887-6 #### [facility] CLIA [id number] [address] [place] Color (U) Light Yellow Normal yellow [facility] Comment on above: Order Comment: Speci men Type: URINE SPECIMEN Ordering Facility: [facility] Address: [facility] [place] [address] Performed By: #### 3 5674-1, 2887-6 #### [facility] CLIA [id number] [address] Epithelial cells LM.HPF (Urine sed) [#/Area] Few Normal [facility] Comment on above: Order Comment: Speci men Type: URINE SPECIMEN Ordering Facility: [facility] Address: [address] [place] [address] Performed By: #### 3 5674-1, 2887-6 #### [facility] CLIA [id number] [address] Glucose Test strip (U) [Mass/Vol] Negative Normal Trace, Negative [facility] Comment on above: Order Comment: Speci men Type: URINE SPECIMEN Ordering Facility: [facility] Address: [address] [place] [address] Performed By: #### 3 5674-1, 2887-6 #### [facility] CLIA [id number] [address] Hemoglobin Ql (U) Trace Normal Negative, Trace [facility] Comment on above: Order Comment: Speci men Type: URINE SPECIMEN Ordering Facility: [facility] Address: [address] [place] [address] Performed By: #### 3 5674-1, 2887-6 #### [facility] CLIA [id number] [address] Ketones Ql (U) Negative Normal Negative, Trace [facility] Comment on above: Order Comment: Speci men Type: URINE SPECIMEN Ordering Facility: [facility] Address: [address] [place] [address] Performed By: #### 3 5674-1, 2887-6 #### [facility] CLIA [id number] [address] Leukocyte esterase Test strip Ql (U) 500 Anika/uL Abnormal Negative, 25 Anika/uL [facility] Comment on above: Order Comment: Speci men Type: URINE SPECIMEN Ordering Facility: [facility] Address: [address] [place] [address] Performed By: #### 3 5674-1, 2888-6 #### [facility] CLIA [id number] [address] [place] Nitrite Ql (U) Negative Normal Negative [facility] Comment on above: Order Comment: Speci men Type: URINE SPECIMEN Ordering Facility: [facility] Address: [address] [place] [address] Performed By: #### 3 5674-1, 2887-6 #### [facility] CLIA [id number] [address] [facility] pH (U) 5.5 [pH] Normal 5.0-8.0 [facility] Comment on above: Order Comment: Speci men Type: URINE SPECIMEN Ordering Facility: [facility] Address: [address] [place] [address] Performed By: #### 3 5674-1, 2887-10 #### [facility] CLIA [id number] [address] Protein (U) [Mass/Vol] Negative Normal Trace , Negative [facility] Comment on above: Order Comment: Speci men Type: URINE SPECIMEN Ordering Facility: [facility] Address: [address] [place] [address] Performed By: #### 3 5674-1, 6 #### [facility] CLIA [id number] [address] RBC LM.HPF (Urine sed) [#/Area] /[HPF] Abnormal 0-3 /HPF [facility] Comment on above: Order Comment: Speci men Type: URINE SPECIMEN Ordering Facility: [facility] Address: [address] [place] [address] Performed By: #### 3 5674-1, 2887-6 #### [facility] CLIA [id number] [address] Specific gravity (U) [Rel density] 1.017 Normal 1.005-1.030 [facility] Comment on above: Order Comment: Speci men Type: URINE SPECIMEN Ordering Facility: [facility] Address: [address] [place] [address] Performed By: #### 3 5674-1, 2888-6 #### [facility] CLIA [id number] [address] Urobilinogen Ql (U) Normal Normal Normal [facility] Comment on above: Order Comment: Speci men Type: URINE SPECIMEN Ordering Facility: [facility] Address: [address] [place] [address] Performed By: #### 3 5674-1, 6 #### [facility] CLIA [id number] [address] WBC LM.HPF (Urine sed) [#/Area] /[HPF] Abnormal 0-5 /HPF [facility] Comment on above: Order Comment: Speci men Type: URINE SPECIMEN Ordering Facility: [facility] Address: [address] [place] [address] Performed By: #### 3 5674-1, 6 #### [facility] CLIA [id number] [address] Urinalysis complete pnl Uron 06-18-2023 Urinalysis [...] -<50,000 CFU/ml Normal urogenital josé miguel Normal [facility] Comment on above: Order Comment: Speci men Type: URINE SPECIMEN Ordering Facility: [facility] Address: [address] [place] [address] Performed By: #### 3 5674-1, 2887-6 #### [facility] CLIA [id number] 1 [place] [id number] [place] VITAMIN D 25 HYDROXYon 06-18 25-hydroxyvitamin D3 [Mass/Vol] 25.4 ng/mL Low >=30.0 ng/mL [facility] XR HAND 3V PA/LAT/OBL LTon 0 [...] or focal abnormality throughout the regions evaluated. Audit Specialist: PSCFlavia Transcribe Date/Time: Jun 18 2023 12:45P Dictated by : MAURISIO ROBLES MD This examination was interpreted and the report reviewed and electronically signed by: MAURISIO ROBLES MD on Jun 18 2023 12:53PM EST [id number] Normal [facility] XR HAND 3V PA/LAT/OBL RTon 0 [...] or focal abnormality throughout the regions evaluated. Audit Specialist: MONSERRAT Transcribe Date/Time: Jun 18 2023 12:45P Dictated by : MAURISIO ROBLES MD This examination was interpreted and the report reviewed and electronically signed by: MAURISIO ROBLES MD on Jun 18 2023 12:53PM EST [id number] Normal [facility] XR HIP ANGELES 5V PEL+ AP/LAT [...] or focal abnormality throughout the regions evaluated. Audit Specialist: [employer] Transcribe Date/Time: Jun 18 2023 12:45P Dictated by : MAURISIO ROBLES MD This examination was interpreted and the report reviewed and electronically signed by: MAURISIO ROBLES MD on Jun 18 2023 12:53PM EST [id number] Normal [facility] XR KNEE SURVEY 1V AP BILon [...] or focal abnormality throughout the regions evaluated. Audit Specialist: MONSERRAT Transcribe Date/Time: Jun 18 2023 12:45P Dictated by : MAURISIO ROBLES MD This examination was interpreted and the report reviewed and electronically signed by: MAURISIO ROBLES MD on Jun 18 2023 12:53PM EST [id number] Normal [facility] XR LUMBAR 3V AP/LAT/L5-S1on 06-18-2023 XR [...] or focal abnormality throughout the regions evaluated. Audit Specialist: [facility] Transcribe Date/Time: Jun 18 2023 12:45P Dictated by : MAURISIO ROBLES MD This examination was interpreted and the report reviewed and electronically signed by: MAURISIO ROBLES MD on Jun 18 2023 12:53PM EST [id number] Normal [facility] XR SI JTS 2V AP PELV/FERGUSO [...] or focal abnormality throughout the regions evaluated. Audit Specialist: [facility] Transcribe Date/Time: Jun 18 2023 12:45P Dictated by : MAURISIO ROBLES MD This examination was interpreted and the report reviewed and electronically signed by: MAURISIO ROBLES MD on Jun 18 2023 12:53PM EST [id number] Normal [facility] cCP IgG SerPl-aCncon 024 Cyclic citrullinated peptide IgG Qn <15 Normal <20 [facility] Comment on above: Order Comment: Speci men Type: BLOOD SPECIMEN Ordering Facility: [facility] Address: [address] [place] [address] Performed By: #### X SSAB, 31361-7, 53373-4 #### [facility] CLIA [id number] [address] [place], [place] [address] [place] [address] [place] CNPNon 06-11-2023 CNPN Telephone (OBGYWM) SANDIE BECERRIL ([id number]) 1990 F Date Time Provider Department 06/11/23 [...] to the office tomorrow. ERICKA Mas Amy, APRN.FANCY STITCHER 06/13/2023 6:53 AM Signed Please reassure her [...] Fully Assessed Reason for Visit: Patient Question [6678] Prescriptions as of 06/13/2023 - amoxicillin (AMOXIL) [...] Encounter Status:Closed by [facility]UD[facility] Nurse [facility] (OBGYWM) SANDIE BECERRIL ([id number]) 1990 F Date Time Provider Department 06/06/23 2:00 PM NURSE MONOTYPE OPERATOR [facility] WSTR OBGYWM During your visit today, we recorded the following information about you: Blood pressure Weight 128/70 91.2 kg Nette Brown RN 06/06/2023 4:03 PM Signed Patient identified by name and date of . Sandie Becerril is here for a Depo Provera injection. Patient brought medication. Date last injected: 03/15/23 Depo-Provera, 150 mg, administered IM left upper quadrant gluteus, Lot # [id number], expiration date 10/04/2024. Depo-Provera was given without incident. Date of last menses: Patient's last menstrual period was 11/14/2019 (approximate). Irregular bleeding - No Menses ceased - Yes STD prevention discussed: Yes Patient instructed to return to clinic in 12 weeks. [email or web address] [email or web address] Provider Enedelia Dumont CNM was present in [...] daily. - Condoms Latex Lubricated (CONDOMS-NATALIE LUBRICATED) [facility] [place] Use one condom before and during [...] for Encounter Date Provider Department Center 06/06/2023 [id number] MONOTYPE OPERATOR [facility] *MELINA Stoner Encounter Status:Closed by NETTE BROWN on 06/06/23 [facility] James 05-30-2023 CNOV Office Visit (UCWSTR ) SANDIE BECERRIL ([id number]) 1990 F Date Time Provider Department 05/30/23 12:15 PM [facility] During your visit today, we recorded the following information about you: Temperature Pulse Respiration Blood pressure 99 degrees 100/minute 20/minute 124/80 Weight 90.8 kg Vernon Calvin APRN.FANCY STITCHER 05/30/2023 1:03 PM Signed Subjective HPI Nontoxic-appearing [...] No respirat (more content not included)... Normal [facility] XR KNEE 4V AP/PA BOTH+LAT/ME R [...] radiographic abnormalities seen in the left knee. Audit Specialist: MONS[employer]AT Transcribe Date/Time: May 30 2023 12:52P Dictated by : YUKI BEACH MD This examination was interpreted and the report reviewed and electronically signed by: YUKI BEACH MD on May 30 2023 12:55PM EST [id number] Normal [facility] XR Knee - left 4 Viewson IMPRESSION: No acute radiographic abnormalities seen in the left knee. Audit Specialist: DEBORAH Transcribe Date/Time: May 30 2023 12:52P Dictated by : YUKI BEACH MD This examination was interpreted and the report reviewed and electronically signed by: YUKI BEACH MD on May 30 2023 12:55PM [facility] DIVISION OF RADIOLOGY * * *Final Report* [...] soft tissue swelling. DIVISION OF RADIOLOGY Provider, [facility] - 05/30/2023 * * *Final Report* * [...] radiographic abnormalities seen in the left knee. Audit Specialist: PSCB Transcribe Date/Time: May 30 2023 12:52P Dictated by : YUKI BEACH MD This examination was interpreted and the report reviewed and electronically signed by: YUKI BEACH MD on May 30 2023 12:55PM [facility] Radiology Study observation (narrative) Benji [facility] XR Knee - left 4 ViewsOrdere d By: [facility]cf Provider on 05-30-2023 [facility] CNNURSEon 03-15-2023 CNNURSE Nurse Visit (OBGYWM) SANDIE BECERRIL ([id number]) 1990 F Date Time Provider Department 03/15/23 4:00 PM NURSE MONOTYPE OPERATOR [facility] OBGY[facility] During your visit today, we recorded the following information about you: Blood pressure Weight 128/78 89.4 kg Claudia Woodall RN 03/15/2023 4:13 PM Signed Patient identified by name and date of . Sandie Becerril is here for a Depo Provera injection. Patient brought medication. Date last injected: overdue-negative test Depo-Provera, 150 mg, administered IM right upper quadrant gluteus, Lot # [id number], expiration date 02/03/2027. Depo-Provera was given without incident. Date of last menses: Patient's last menstrual period was 11/14/2019 (approximate). Irregular bleeding - No Menses ceased - Yes STD prevention discussed: Yes Patient instructed to return to clinic on 12 weeks. [email or web address] [email or web address] Provider Dr. Penny was present in office [...] for management and injection of depo-Provera [Z30.42] [place](s[place] [place] [[id number]] Order #: [id number] Prescriptions as of 03/15/2023 - amLODIPine (NORVASC) [...] daily. - Condoms Latex Lubricated (CONDOMS-NATALIE LUBRICATED) [facility] [place] Use one condom before and during [...] for Encounter Date Provider Department Center 03/15/2023 [id number] MONOTYPE OPERATOR [facility] *OBANA Stoner Encounter Status:Closed by CLAUDIA WOODALL RN on 03[facility]15[facility]-15-2023 status Negative neg - pos [facility] Quality Check Yes [facility] US ELASTOGRAPHY LIVERon 08-0 [facility] HCG QUAL UR B/Oon 09-05-2022 status Negative neg - pos [facility] Quality Check Yes [facility] Absolute lymphocyte countOrd ered By: ED PROVIDER on 08-14-2022 Lymphocytes Auto (Unsp spec) [#/Vol] 1.54 10*3/uL 0.83-4.51 [facility] Basophil percentageOrdered B y: ED PROVIDER on 08-14-2022 Basophils/100 WBC (Bld) 1.1 % 0-[address] [facility] Chloride [Moles/Vol] 112 mmol/L 98-107 [facility] Eosinophils/100 WBC (Bld) 1.4 % 0-5 [facility] Glucose [Mass/Vol] 97 mg/dL 74-106 [facility] Neutrophils (Bld) [#/Vol] 4.7 10*3/uL 2.0-7.7 [facility] Neutrophils/100 WBC (Bld) 66.8 % 47-70 [facility] Potassium [Moles/Vol] 3.3 mmol/L 3.5-5.1 [facility] Sodium [Moles/Vol] 140 mmol/L 136-145 [facility] WBC (Bld) [#/Vol] 7.0 10*3/uL 4.4-11.0 [facility] Blood erythrocytes count (nu mber/volume)Ordered By: ED PROVIDER on 08-14-2022 RBC (Bld) [#/Vol] 4.36 10*6/uL 4.2-5.4 [facility] Blood hemoglobin measurement (mass/volume)Ordered By: ED PROVIDER on 08-14-2022 Hemoglobin (Bld) [Mass/Vol] 13.4 g/dL 12.0-15.0 [facility] Blood lymphocytes/100 leukoc ytesOrdered By: ED PROVIDER on 08-14-2022 Lymphocytes/100 WBC (Bld) 22.1 % 19-41 [facility] Blood monocytes/100 leukocyt esOrdered By: ED PROVIDER on 08-14-2022 Monocytes/100 WBC (Bld) 8.3 % 0-[address] [facility] Blood platelet mean volumeOr dered By: ED PROVIDER on 08-14-2022 Platelet mean volume (Bld) [Entitic vol] 9.7 fL 6.2-12.0 [facility] Determination of erythrocyte mean corpuscular volume (MCV)Ordered By: ED PROVIDER on 08-14-2022 MCV (RBC) [Entitic vol] 92.4 fL 81-[address] [facility] Hematocrit Auto (Bld) [Volum e fraction]Ordered By: ED PROVIDER on 08-14-2022 Hematocrit (Bld) [Volume fraction] 40.3 % 37-47 [facility] INR in Blood by Coagulation assayOrdered By: ED PROVIDER on 08-14-2022 INR Coag (Bld) [Relative time] 0.9 {INR} [facility] Laboratory - Chemistry and C hemistry - challengeOrdered By: ED PROVIDER on 08-14-2022 CO2 [Moles/Vol] 27.0 mmol/L 21.0-32.0 [facility] Urea nitrogen/Creatinine [Mass ratio] 9.7 mg/mg 10-20 [facility] - CoagulationOrde red By: ED PROVIDER on 08-14-2022 aPTT Coag (Bld) [Time] 22.6 s 24.1-36.2 [facility] PT Coag (PPP) [Time] 12.3 s 11.7-14.9 [facility] Laboratory - Hematology and Cell countsOrdered By: ED PROVIDER on 08-14-2022 Erythrocyte distribution width (RBC) [Entitic vol] 43.8 fL 35.1-43.9 [facility] Erythrocyte distribution width (RBC) [Ratio] 13.1 % 11.6-14.6 [facility] Immature granulocytes/100 WBC (Bld) 0.300 % 0.0-0.9 [facility] Comment on above: IG% - Immature Granu locytes (promyelocytes, myelocytes and metamyelocytes) > 1% indicates that a LEFT SHIFT is Present. MCH (RBC) [Entitic mass] 30.7 pg 27.0-32.0 [facility] Nucleated RBC/100 WBC (Bld) [Ratio] 0 % 0-[address] [facility] Auto (RBC) [Mass/Vol]Or dered By: ED PROVIDER on 08-14-2022 MCHC (RBC) [Mass/Vol] 33.3 g/dL 32-36 [facility] No Panel InformationOrdered By: ED PROVIDER on 08-14-2022 Estimated Creatinine Clearance Calc 70.15 ml/min [facility] Estimated GFR (MDRD) Amer 72 mL/min >60 [facility] Comment on above: GFR Calc Estimated GFR (MDRD) Non-Af Amer 59 mL/min >60 [facility] Comment on above: Non- GFR Calc Platelets bldOrdered By: ED PROVIDER on 08-14-2022 Platelets (Bld) [#/Vol] 301 10*3/uL 150-450 [facility] Serum or plasma calcium althea urement (mass/volume)Ordered By: ED PROVIDER on 08-14-2022 Calcium [Mass/Vol] 8.7 mg/dL 8.5-10.1 [facility] Serum or plasma creatinine m easurement (mass/volume)Ordered By: ED PROVIDER on 08-14-2022 Creatinine [Mass/Vol] 1.13 mg/dL 0.55-1.02 [facility] Comment on above: The validity of the calculated GFR & GFRAA in patients over 70 years has not been determined. Clinical correlation is essential. Serum or plasma urea nitroge n measurement (mass/volume)Ordered By: ED PROVIDER on 08-14-2022 Urea nitrogen [Mass/Vol] 11 mg/dL 7-18 [facility] Thin prep Papanicolaou smear with manual screeningOrdered By: ED PROVIDER on 08-14-2022 Thin prep Papanicolaou smear with manual screening 1 5-15 [facility] Laboratory - Drug toxicology Ordered By: Woody Encinas on 07-20-2022 Amphetamines Ql (U) Negative <1000 ng/mL [facility] Benzodiazepines Ql (U) Negative < 200 ng/mL [facility] Cannabinoids Screen Ql (U) Negative < 50 ng/mL [facility] Cocaine Ql (U) Negative < 300 ng/mL [facility] Opiates Ql (U) Negative < 300 ng/mL [facility] No Panel InformationOrdered By: Woody Encinas on 07-20-2022 MDMA (Ecstasy) Screen Positive < 500 ng/mL [facility] Urine Barbiturates Screen Negative < 200 ng/mL [facility] Urine Drug Screen Comment [facility] Comment on above: CONFIRMATORY TESTING FOR [...] Urine Methadone Screen Negative < 300 ng/mL [facility] Urine phencyclidine (PCP) de tectionOrdered By: Woody Ce on 07-20-2022 Phencyclidine Ql (U) Negative < 25 ng/mL [facility] Absolute lymphocyte countOrd ered By: Dr. Bingham on 06-10-2022 Lymphocytes Auto (Unsp spec) [#/Vol] 0.26 10*3/uL 0.83-4.51 [facility] Basophil percentageOrdered B y: Dr. Bingham on 06-10-2022 Basophils/100 WBC (Bld) 0.5 % 0-1 [facility] Bilirubin [Mass/Vol] 0.60 mg/dL 0.20-1.00 [facility] Comment on above: For patients on eltr ombopag therapy, use of Dimension [place] TBIL is not recommended. Chloride [Moles/Vol] 107 mmol/L 98-107 [facility] Eosinophils/100 WBC (Bld) 0.5 % 0-5 [facility] Glucose [Mass/Vol] 100 mg/dL 74-106 [facility] Comment on above: Fasting Glucose resu lt from 100 to 125 mg/dL suggests IMPAIRED HOMEOSTASIS per A.D.A. criteria. Neutrophils (Bld) [#/Vol] 5.2 10*3/uL 2.0-7.7 [facility] Neutrophils/100 WBC (Bld) 87.3 % 47-70 [facility] Potassium [Moles/Vol] 3.3 mmol/L 3.5-5.1 [facility] Protein [Mass/Vol] 8.0 g/dL 6.4-8.2 [facility] Sodium [Moles/Vol] 139 mmol/L 136-145 [facility] WBC (Bld) [#/Vol] 6.0 10*3/uL 4.4-11.0 [facility] Beta hCG serum qualOrdered B y: Dr. Bingham on 06-10-2022 Beta HCG ( test) Ql Negative [facility] Blood erythrocytes count (nu mber/volume)Ordered By: Dr. Bingham on 06-10-2022 RBC (Bld) [#/Vol] 5.19 10*6/uL 4.2-5.4 [facility] Blood hemoglobin measurement (mass/volume)Ordered By: Dr. Bingham on 06-10-2022 Hemoglobin (Bld) [Mass/Vol] 16.1 g/dL 12.0-15.0 [facility] Blood lymphocytes/100 leukoc ytesOrdered By: Dr. Bingham on 06-10-2022 Lymphocytes/100 WBC (Bld) 4.3 % 19-41 [facility] Blood manual differential co mment interpretation (narrative result)Ordered By: Dr. Bingham on 06-10-2022 Manual differential comment Devin (Bld) [Interp] SEE COMMENT [facility] Comment on above: LYMPHOPENIA NOTED Blood monocytes/100 leukocyt esOrdered By: Dr. Bingham on 06-10-2022 Monocytes/100 WBC (Bld) 7.2 % 0-10 [facility] Blood platelet adequacy dete ction by light microscopyOrdered By: Dr. Bingham on 06-10-2022 Platelets LM Ql (Bld) ADEQUATE ADEQ [facility] Blood platelet mean volumeOr dered By: Dr. Bingham on 06-10-2022 Platelet mean volume (Bld) [Entitic vol] 9.6 fL 6.2-12.0 [facility] Determination of erythrocyte mean corpuscular volume (MCV)Ordered By: Dr. Bingham on 06-10-2022 MCV (RBC) [Entitic vol] 89.8 fL 81-[address] [facility] Hematocrit Auto (Bld) [Volum e fraction]Ordered By: Dr. Bingham on 06-10-2022 Hematocrit (Bld) [Volume fraction] 46.6 % 37-47 [facility] Laboratory - Chemistry and C hemistry - challengeOrdered By: Dr. Bingham on 06-10-2022 ALP [Catalytic activity/Vol] 80 U/L 45-117 [facility] ALT [Catalytic activity/Vol] 93 U/L 13-56 [facility] CO2 [Moles/Vol] 24.0 mmol/L 21.0-32.0 [facility] Globulin (S) [Mass/Vol] 3.8 g/dL 2.2-4.[address] [facility] Urea nitrogen/Creatinine [Mass ratio] 18.3 mg/mg 10-20 [facility] Laboratory - Hematology and Cell countsOrdered By: Dr. Bingham on 06-10-2022 Anisocytosis Ql (Bld) RARE [facility] Erythrocyte distribution width (RBC) [Entitic vol] 41.6 fL 35.1-43.9 [facility] Erythrocyte distribution width (RBC) [Ratio] 12.5 % 11.6-14.6 [facility] Immature granulocytes/100 WBC (Bld) 0.200 % 0.0-0.9 [facility] Comment on above: IG% - Immature Granu locytes (promyelocytes, myelocytes and metamyelocytes) > 1% indicates that a LEFT SHIFT is Present. MCH (RBC) [Entitic mass] 31.0 pg 27.0-32.0 [facility] Nucleated RBC/100 WBC (Bld) [Ratio] 0 % 0-5 [facility] MCHC Auto (RBC) [Mass/Vol]Or dered By: Dr. Bingham on 06-10-2022 MCHC (RBC) [Mass/Vol] 34.5 g/dL 32-36 [facility] Macrocytes detectionOrdered By: Dr. Bingham on 06-10-2022 Macrocytes Ql (Bld) [facility] No Panel InformationOrdered By: Dr. Bingham on 06-10-2022 Estimated Creatinine Clearance Calc 76.22 ml/min [facility] Estimated GFR (MDRD) Amer 79 mL/min >60 [facility] Comment on above: GFR Calc Estimated GFR (MDRD) Non-Af Amer 65 mL/min >60 [facility] Comment on above: Non- GFR Calc Platelets bldOrdered By: Dr. Bingham on 06-10-2022 Platelets (Bld) [#/Vol] 270 10*3/uL 150-450 [facility] RBC morphologyOrdered By: Dr Crystal Bingham on 06-10-2022 RBC morphology finding Nom (Bld) N CHROM NORMAL NORM C&C [facility] Serum or plasma albumin althea urement (mass/volume)Ordered By: Dr. Bingham on 06-10-2022 Albumin [Mass/Vol] 4.2 g/dL 3.2-5.0 [facility] Serum or plasma albumin/glob ulin mass ratioOrdered By: Dr. Bingham on 06-10-2022 Albumin/Globulin [Mass ratio] 1.1 {ratio} 0.9-2.4 [facility] Serum or plasma calcium althea urement (mass/volume)Ordered By: Dr. Bingham on 06-10-2022 Calcium [Mass/Vol] 9.2 mg/dL 8.5-10.1 [facility] Serum or plasma creatinine m easurement (mass/volume)Ordered By: Dr. Bingham on 06-10-2022 Creatinine [Mass/Vol] 1.04 mg/dL 0.55-1.02 [facility] Comment on above: The validity of the calculated GFR & GFRAA in patients over 70 years has not been determined. Clinical correlation is essential. Serum or plasma urea nitroge n measurement (mass/volume)Ordered By: Dr. Bingham on 06-10-2022 Urea nitrogen [Mass/Vol] 19 mg/dL 7-18 [facility] Thin prep Papanicolaou smear with manual screeningOrdered By: Dr. Bingham on 06-10-2022 Thin prep Papanicolaou smear with manual screening 66 U/L 15-37 [facility] Thin prep Papanicolaou smear with manual screening 8 5-15 [facility] HCG QUAL UR B/Oon 05-24-2022 status Negative neg - pos [facility] Quality Check Yes [facility] No Panel Informationon 05-09 POC SARS CoV-2 Antigen Negative [facility] Throat Streptococcus pyogene s antigen detection by immunofluorescenceOrdered By: Dr. Molina on 05-08-2022 S. pyogenes Ag IF Ql (Throat) [facility] Laboratory - Microbiology an d Antimicrobial susceptibilityon 04-07-2022 SARS-CoV-2 (COVID-19) RNA [place]+probe Ql (Unsp spec) Not detected [facility] No Panel Informationon 04-07 Influenza Types A,B Rapid (Clinic) Detected [facility] Culture, urineOrdered By: Dr Crystal Shea on 03-23-2022 Bacteria identified Cx Nom (U) Positive [facility] Bacteria identified Cx Nom (U) Yeast Like Organism [facility] Basophil percentageOrdered B y: ED PROVIDER on 03-20-2022 Basophil percentage 5-10 SEEN /hpf 0-[address] [facility] Bilirubin Test strip Ql (U)O rdered By: ED PROVIDER on 03-20-2022 Bilirubin Ql (U) 6 mg/dL Negative [facility] Comment on above: COLOR OF URINE MAY A FFECT DIPSTICK RESULTS. Ketones Test strip Ql (U)Ord ered By: ED PROVIDER on 03-20-2022 Ketones Ql (U) 5 mg/dl Negative [facility] Laboratory - Chemistry and C hemistry - challengeOrdered By: ED PROVIDER on 03-20-2022 HCG ( test) Ql (U) Negative [facility] Comment on above: Very dilute urine sp ecimens, as indicated by a low specificgravity, may not contain communications representative levels of hCG. If is still suspected, a first morning urinespecimen should be collected 48 hours later and tested. Mucus LM Ql (Urine sed)Order ed By: ED PROVIDER on 03-20-2022 Mucus Ql (Urine sed) 0 SEEN /hpf [facility] Nitrite Test strip Ql (U)Ord ered By: ED PROVIDER on 03-20-2022 Nitrite Ql (U) Positive Negative [facility] Protein Test strip Ql (U)Ord ered By: ED PROVIDER on 03-20-2022 Protein Ql (U) 15 mg/dl Negative [facility] Squamous epithelial cells de tection in urine sediment by light microscopyOrdered By: ED PROVIDER on 03-20-2022 Epithelial cells.squamous LM Ql (Urine sed) 0-5 SEEN /hpf 5-10 [facility] Urine blood detectionOrdered By: ED PROVIDER on 03-20-2022 RBC Ql (U) 10 /ul Negative [facility] RBC Ql (U) 0-5 SEEN /hpf 0-5 [facility] Urine clarityOrdered By: ED PROVIDER on 03-20-2022 Clarity (U) Sl. Cloudy Clear [facility] Urine color determinationOrd ered By: ED PROVIDER on 03-20-2022 Color (U) Angela Yellow [facility] Urine glucose detectionOrder ed By: ED PROVIDER on 03-20-2022 Glucose Ql (U) Normal mg/dl Normal [facility] Urine leukocyte esterase det ection by dipstickOrdered By: ED PROVIDER on 03-20-2022 Leukocyte esterase Test strip Ql (U) 500 /ul Negative [facility] Urine pHOrdered By: ED PROVI KRIS on 03-20-2022 pH (U) 6.5 [pH] 5.0 - 8.0 [facility] Urine sediment bacteria coun t by microscopy (number/high power field)Ordered By: ED PROVIDER on 03-20-2022 Bacteria LM.HPF (Urine sed) [#/Area] 1 /[HPF] None Seen [facility] Urine specific gravity measu rementOrdered By: ED PROVIDER on 03-20-2022 Specific gravity (U) [Rel density] 1.020 1.002-1.030 [facility] Urobilinogen Auto test strip Ql (U)Ordered By: ED PROVIDER on 03-20-2022 Urobilinogen Ql (U) 8 mg/dl Normal [facility] Absolute lymphocyte countOrd ered By: Molly Reyes on 03-17-2022 Lymphocytes Auto (Unsp spec) [#/Vol] 1.38 10*3/uL 0.83-4.51 [facility] Basophil percentageOrdered B y: Molly Reyes on 03-17-2022 Basophil percentage 0-5 SEEN /hpf 0-5 [facility] Basophils/100 WBC (Bld) 1.2 % 0-[address] [facility] Bilirubin [Mass/Vol] 0.70 mg/dL 0.20-1.00 [facility] Comment on above: For patients on eltr ombopag therapy, use of Dimension [place] TBIL is not recommended. Chloride [Moles/Vol] 105 mmol/L 98-107 [facility] Eosinophils/100 WBC (Bld) 2.3 % 0-5 [facility] Glucose [Mass/Vol] 91 mg/dL 74-106 [facility] Neutrophils (Bld) [#/Vol] 3.6 10*3/uL 2.0-7.7 [facility] Neutrophils/100 WBC (Bld) 63.3 % 47-70 [facility] Potassium [Moles/Vol] 5.0 mmol/L 3.5-5.1 [facility] Comment on above: Moderate Hemolysis, Result may be falsely increased. Protein [Mass/Vol] 7.5 g/dL 6.4-8.2 [facility] Sodium [Moles/Vol] 137 mmol/L 136-145 [facility] WBC (Bld) [#/Vol] 5.7 10*3/uL 4.4-11.0 [facility] Beta hCG serum qualOrdered B y: Molly Reyes on 03-17-2022 Beta HCG ( test) Ql Negative [facility] Bilirubin Test strip Ql (U)O rdered By: Molly Reyes on 03-17-2022 Bilirubin Ql (U) Negative Negative [facility] Blood erythrocytes count (nu mber/volume)Ordered By: Molly Reyes on 03-17-2022 RBC (Bld) [#/Vol] 4.74 10*6/uL 4.2-5.4 [facility] Blood hemoglobin measurement (mass/volume)Ordered By: Molly Reyes on 03-17-2022 Hemoglobin (Bld) [Mass/Vol] 14.6 g/dL 12.0-15.0 [facility] Blood lymphocytes/100 leukoc ytesOrdered By: Molly Reyes on 03-17-2022 Lymphocytes/100 WBC (Bld) 24.1 % 19-41 [facility] Blood monocytes/100 leukocyt esOrdered By: Molly Reyes on 03-17-2022 Monocytes/100 WBC (Bld) 9.1 % 0-[address] [facility] Blood platelet mean volumeOr dered By: Molly Reyes on 03-17-2022 Platelet mean volume (Bld) [Entitic vol] 9.5 fL 6.2-12.0 [facility] Determination of erythrocyte mean corpuscular volume (MCV)Ordered By: Molly Reyes on 03-17-2022 MCV (RBC) [Entitic vol] 93.0 fL 81-[address] [facility] Hematocrit Auto (Bld) [Volum e fraction]Ordered By: Molly Reyes on 03-17-2022 Hematocrit (Bld) [Volume fraction] 44.1 % 37-47 [facility] Ketones Test strip Ql (U)Ord ered By: Molly Reyes on 03-17-2022 Ketones Ql (U) Negative Negative [facility] Laboratory - Chemistry and C hemistry - challengeOrdered By: Molly Reyes on 03-17-2022 ALP [Catalytic activity/Vol] 63 U/L 45-117 [facility] ALT [Catalytic activity/Vol] 53 U/L 13-56 [facility] CO2 [Moles/Vol] 26.0 mmol/L 21.0-32.0 [facility] Globulin (S) [Mass/Vol] 3.7 g/dL 2.2-4.[address] [facility] Lipase [Catalytic activity/Vol] 86 U/L 73-393 [facility] Urea nitrogen/Creatinine [Mass ratio] 10.3 mg/mg 10-20 [facility] Laboratory - Hematology and Cell countsOrdered By: Molly Reyes on 03-17-2022 Erythrocyte distribution width (RBC) [Entitic vol] 41.1 fL 35.1-43.9 [facility] Erythrocyte distribution width (RBC) [Ratio] 11.9 % 11.6-14.6 [facility] Immature granulocytes/100 WBC (Bld) 0.000 % 0.0-0.9 [facility] Comment on above: IG% - Immature Granu locytes (promyelocytes, myelocytes and metamyelocytes) > 1% indicates that a LEFT SHIFT is Present. MCH (RBC) [Entitic mass] 30.8 pg 27.0-32.0 [facility] Nucleated RBC/100 WBC (Bld) [Ratio] 0 % 0-5 [facility] MCHC Auto (RBC) [Mass/Vol]Or dered By: Molly Reyes on 03-17-2022 MCHC (RBC) [Mass/Vol] 33.1 g/dL 32-36 [facility] Mucus LM Ql (Urine sed)Order ed By: Molly Reyes on 03-17-2022 Mucus Ql (Urine sed) 0 SEEN /hpf [facility] Nitrite Test strip Ql (U)Ord ered By: Molly Reyes on 03-17-2022 Nitrite Ql (U) Positive Negative [facility] No Panel InformationOrdered By: Molly Reyes on 03-17-2022 Estimated Creatinine Clearance Calc 74.08 ml/min [facility] Estimated GFR (MDRD) Amer 77 mL/min >60 [facility] Comment on above: GFR Calc Estimated GFR (MDRD) Non-Af Amer 63 mL/min >60 [facility] Comment on above: Non- GFR Calc Platelets bldOrdered By: Joshua Reyes on 03-17-2022 Platelets (Bld) [#/Vol] 321 10*3/uL 150-450 [facility] Protein Test strip Ql (U)Ord ered By: Molly Reyes on 03-17-2022 Protein Ql (U) 30 mg/dl Negative [facility] Serum or plasma albumin althea urement (mass/volume)Ordered By: Molly Reyes on 03-17-2022 Albumin [Mass/Vol] 3.8 g/dL 3.2-5.0 [facility] Serum or plasma albumin/glob ulin mass ratioOrdered By: Molly Reyes on 03-17-2022 Albumin/Globulin [Mass ratio] 1.0 {ratio} 0.9-2.4 [facility] Serum or plasma calcium althea urement (mass/volume)Ordered By: Molly Reyes on 03-17-2022 Calcium [Mass/Vol] 8.9 mg/dL 8.5-10.1 [facility] Serum or plasma creatinine m easurement (mass/volume)Ordered By: Molly Reyes on 03-17-2022 Creatinine [Mass/Vol] 1.07 mg/dL 0.55-1.02 [facility] Comment on above: The validity of the calculated GFR & GFRAA in patients over 70 years has not been determined. Clinical correlation is essential. Serum or plasma urea nitroge n measurement (mass/volume)Ordered By: Molly Reyes on 03-17-2022 Urea nitrogen [Mass/Vol] 11 mg/dL 7-18 [facility] Squamous epithelial cells de tection in urine sediment by light microscopyOrdered By: Molly Reyes on 03-17-2022 Epithelial cells.squamous LM Ql (Urine sed) 0-5 SEEN /hpf 5-10 [facility] Thin prep Papanicolaou smear with manual screeningOrdered By: Molly Reyes on 03-17-2022 Thin prep Papanicolaou smear with manual screening 48 U/L 15-37 [facility] Comment on above: Moderate Hemolysis, Result may be falsely increased. Thin prep Papanicolaou smear with manual screening 6 5-15 [facility] Urine blood detectionOrdered By: Molly Reyes on 03-17-2022 RBC Ql (U) Negative Negative [facility] RBC Ql (U) 0-5 SEEN /hpf 0-5 [facility] Urine clarityOrdered By: Joshua Reyes on 03-17-2022 Clarity (U) Clear Clear [facility] Urine color determinationOrd ered By: Molly Reyes on 03-17-2022 Color (U) Yellow Yellow [facility] Urine glucose detectionOrder ed By: Molly Reyes on 03-17-2022 Glucose Ql (U) Normal mg/dl Normal [facility] Urine leukocyte esterase det ection by dipstickOrdered By: Molly Reyes on 03-17-2022 Leukocyte esterase Test strip Ql (U) 500 /ul Negative [facility] Urine pHOrdered By: Darwin Reyes on 03-17-2022 pH (U) 8.0 [pH] 5.0 - 8.0 [facility] Urine sediment bacteria coun t by microscopy (number/high power field)Ordered By: Molly Reyes on 03-17-2022 Bacteria LM.HPF (Urine sed) [#/Area] 0 /[HPF] None Seen [facility] Urine specific gravity measu rementOrdered By: Molly Reyes on 03-17-2022 Specific gravity (U) [Rel density] 1.015 1.002-1.030 [facility] Urobilinogen Auto test strip Ql (U)Ordered By: Molly Reyes on 03-17-2022 Urobilinogen Ql (U) 4 mg/dl Normal [facility] Laboratory - Microbiology an d Antimicrobial susceptibilityon 02-16-2022 SARS-CoV-2 (COVID-19) RNA [place]+probe Ql (Unsp spec) Not detected [facility] No Panel Informationon 02-16 Influenza Types A,B Rapid (Clinic) Not detected [facility] Laboratory - Microbiology an d Antimicrobial susceptibilityon 09-14-2021 SARS-CoV-2 (COVID-19) RNA [place]+probe Ql (Unsp spec) Not detected [facility] Work Phone: No Panel Informationon 09-14 Influenza Types A,B Rapid (Clinic) Not detected [facility] Work Phone: Laboratory - Microbiology an d Antimicrobial susceptibilityon 09-09-2021 SARS-CoV-2 (COVID-19) RNA [place]+probe Ql (Unsp spec) Not detected [facility] Work Phone: No Panel Informationon 09-09 Influenza Types A,B Rapid (Clinic) Not detected [facility] Work Phone: Culture, urine Bacteria identified Cx Nom (U) Positive [facility] Work Phone: Bacteria identified Cx Nom (U) Yeast Like Organism [facility] Work Phone: Vital Signs Date Time Vital Sign Value Performing Clinician Facility 08-31-2024 16:19-0400 Diastolic Blood Pressure Non-Invasive 86 mm[Hg] JACOB GOFF DO [facility] 08-31-2024 16:19-0400 Heart rate 102 /min JACOB GOFF DO [facility] 08-31-2024 16:19-0400 Respiratory rate 18 /min JACOB GOFF DO [facility] 08-31-2024 16:19-0400 Systolic Blood Pressure Non-Invasive 138 mm[Hg] JACOB GOFF DO [facility] 08-31-2024 15:24-0400 Body temperature 98.6 [degF] JACOB GOFF DO [facility] 08-31-2024 15:24-0400 Diastolic Blood Pressure Non-Invasive 84 mm[Hg] JACOB GOFF DO [facility] 08-31-2024 15:24-0400 Heart rate 118 /min JACOB GOFF DO [facility] 08-31-2024 15:24-0400 Respiratory rate 18 /min JACOB GOFF DO [facility] 08-31-2024 15:24-0400 Systolic Blood Pressure Non-Invasive 143 mm[Hg] JACOB GOFF DO [facility] 08-26-2024 20:07-0400 Body height 167 cm CHI RAMIREZ DO [facility] 08-26-2024 20:07-0400 Body temperature 97.52 [degF] CHI RAMIREZ DO [facility] 08-26-2024 20:07-0400 Body weight 90.9 kg CHI RAMIREZ DO [facility] 08-26-2024 20:07-0400 Diastolic Blood Pressure Non-Invasive 74 mm[Hg] CHI RAMIREZ DO [facility] 08-26-2024 20:07-0400 Heart rate 100 /min CHI RAMIREZ DO [facility] 08-26-2024 20:07-0400 Respiratory rate 18 /min CHI RAMIREZ DO [facility] 08-26-2024 20:07-0400 Systolic Blood Pressure Non-Invasive 116 mm[Hg] CHI RAMIREZ DO [facility] 11-22-2023 13:26-0400 Body height 167.6 cm Pratima Kat MD Work Phone: [facility] 11-22-2023 13:26-0400 Body mass index (BMI) [Ratio] 31.31 kg/m2 Pratima Kat MD Work Phone: [facility] 11-22-2023 13:26-0400 Body weight 88 kg Pratima Kat MD Work Phone: [facility] 11-22-2023 13:26-0400 Diastolic blood pressure 70 mm[Hg] Pratima Kat MD Work Phone: [facility] 11-22-2023 13:26-0400 Systolic blood pressure 110 mm[Hg] Pratima Kat MD Work Phone: [facility] 11-19-2023 17:20-0400 Diastolic Blood Pressure Non-Invasive 65 mm[Hg] SAM MACIAS MD [facility] 11-19-2023 17:20-0400 Heart rate 85 /min SAM MACIAS MD [facility] 11-19-2023 17:20-0400 Respiratory rate 16 /min SAM MACIAS MD [facility] 11-19-2023 17:20-0400 Systolic Blood Pressure Non-Invasive 116 mm[Hg] SAM MACIAS MD [facility] 11-19-2023 15:37-0400 Body temperature 100.22 [degF] SAM MACIAS MD [facility] 11-19-2023 15:37-0400 Body weight 89.4 kg SAM MACIAS MD [facility] 11-19-2023 15:37-0400 Diastolic Blood Pressure Non-Invasive 80 mm[Hg] SAM MACIAS MD [facility] 11-19-2023 15:37-0400 Heart rate 118 /min SAM MACIAS MD [facility] 11-19-2023 15:37-0400 Respiratory rate 16 /min SAM MACIAS MD [facility] 11-19-2023 15:37-0400 Systolic Blood Pressure Non-Invasive 137 mm[Hg] SAM MACIAS MD [facility] 09-24-2023 18:43-0400 Blood Pressure Location SHEYLA FROMMELT DO [facility] 09-24-2023 18:43-0400 Blood Pressure Method SHEYLA FROMMELT DO [facility] 09-24-2023 18:43-0400 Body temperature 98.06 [degF] SHEYLA FROMMELT DO [facility] 09-24-2023 18:43-0400 Diastolic Blood Pressure Non-Invasive 80 mm[Hg] SHEYLA FROMMELT DO [facility] 09-24-2023 18:43-0400 Heart rate 123 /min SHEYLA FROMMELT DO [facility] 09-24-2023 18:43-0400 Respiratory rate 18 /min SHEYLA FROMMELT DO [facility] 09-24-2023 18:43-0400 Systolic Blood Pressure Non-Invasive 125 mm[Hg] SHEYLA FROMMELT DO [facility] 08-29-2023 15:33-0400 Body mass index (BMI) [Ratio] 32.77 kg/m2 Nurse Wstr Work Phone: [facility] 08-29-2023 15:33-0400 Body weight 92.08 kg Nurse Wstr Work Phone: [facility] 08-29-2023 15:33-0400 Diastolic blood pressure 76 mm[Hg] Nurse Wstr Work Phone: [facility] 08-29-2023 15:33-0400 Systolic blood pressure 114 mm[Hg] Nurse Wstr Work Phone: [facility] 07-13-2023 08:06-0500 Heart rate 95 /min Anna Marie Prebish [employer].FANCY STITCHER Work Phone: [facility] 07-13-2023 08:06-0500 Respiratory rate 14 /min Anna Marie Prebish [employer] ADMINISTRATOR.FANCY STITCHER Work Phone: [facility] 07-13-2023 08:06-0500 SaO2% (BldA) [Mass fraction] 99 % Anna Marie Prebish [employer] ADMINISTRATOR.FANCY STITCHER Work Phone: [facility] 06-29-2023 09:06-0500 Heart rate 86 /min Anna Marie Prebish [employer] ADMINISTRATOR.FANCY STITCHER Work Phone: [facility] 06-29-2023 09:06-0500 Respiratory rate 14 /min Anna Marie Prebish [employer] ADMINISTRATOR.FANCY STITCHER Work Phone: [facility] 06-29-2023 09:06-0500 SaO2% (BldA) [Mass fraction] 96 % Anna Marie Prebish [employer] ADMINISTRATOR.FANCY STITCHER Work Phone: [facility] 06-18-2023 10:22-0500 Body height 167.6 cm Lis Freedman MD Work Phone: [facility] 06-18-2023 10:22-0500 Body temperature 98.4 [degF] Lis Freedman MD Work Phone: [facility] 06-18-2023 10:22-0500 Body weight 91.17 kg Lis Freedman MD Work Phone: [facility] 06-18-2023 10:22-0500 Diastolic blood pressure 67 mm[Hg] Lis Freedman MD Work Phone: [facility] 06-18-2023 10:22-0500 Heart rate 92 /min Lis Freedman MD Work Phone: [facility] 06-18-2023 10:22-0500 Respiratory rate 14 /min Lis Freedman MD Work Phone: [facility] 06-18-2023 10:22-0500 Systolic blood pressure 128 mm[Hg] Lis Freedman MD Work Phone: [facility] 03-15-2023 15:54-0500 Body weight 89.36 kg Nurse Wstr Work Phone: [facility] 03-15-2023 15:54-0500 Diastolic blood pressure 78 mm[Hg] Nurse Wstr Work Phone: [facility] 03-15-2023 15:54-0500 Systolic blood pressure 128 mm[Hg] Nurse Wstr Work Phone: [facility] 09-18-2022 18:29-0400 Body height 170 cm SAM MACIAS MD [facility] 09-18-2022 18:29-0400 Body temperature 98.78 [degF] SAM MACIAS MD [facility] 09-18-2022 18:29-0400 Body weight 82 kg SAM MACIAS MD [facility] 09-18-2022 18:29-0400 Diastolic Blood Pressure Non-Invasive 89 1 SAM MACIAS MD [facility] 09-18-2022 18:29-0400 Heart rate 76 /min SAM MACIAS MD [facility] 09-18-2022 18:29-0400 Respiratory rate 20 /min SAM MACIAS MD [facility] 09-18-2022 18:29-0400 Systolic Blood Pressure Non-Invasive 141 1 SAM MACIAS MD [facility] 09-05-2022 14:11-0400 Body weight 83.1 kg Yaquelin Ty [employer] ADMINISTRATOR.FANCY STITCHER Work Phone: [facility] 09-05-2022 14:11-0400 Diastolic blood pressure 80 mm[Hg] Yaquelin Ty [employer] ADMINISTRATOR.FANCY STITCHER Work Phone: [facility] 09-05-2022 14:11-0400 Systolic blood pressure 130 mm[Hg] Yaquelin Speedwell [employer] ADMINISTRATOR.FANCY STITCHER Work Phone: [facility] 08-14-2022 17:58-0400 Body height 170.[address] Rosa Kemp Work Phone: [facility] 08-14-2022 17:58-0400 Body mass index (BMI) [Ratio] 28.5 kg/m2 Dr. Rosa Kemp Work Phone: [facility] 08-14-2022 17:58-0400 Body temperature 98.4 [degF] Dr. Rosa Kemp Work Phone: [facility] 08-14-2022 17:58-0400 Body weight 82.[address] Rosa Kemp Work Phone: [facility] 08-14-2022 17:58-0400 Diastolic blood pressure 93 mm[Hg] Dr. Rosa Kemp Work Phone: [facility] 08-14-2022 17:58-0400 Heart rate 82 /min Dr. Rosa Kemp Work Phone: [facility] 08-14-2022 17:58-0400 Respiratory rate 16 /min Dr. Rosa Kemp Work Phone: [facility] 08-14-2022 17:58-0400 SaO2% (BldA) [Mass fraction] 99 % Dr. Rosa Kemp Work Phone: [facility] 08-14-2022 17:58-0400 Systolic blood pressure 140 mm[Hg] Dr. Rosa Kemp Work Phone: [facility] 07-26-2022 12:09-0400 Body temperature 98.4 [degF] Dr. Rosa Kemp Work Phone: [facility] 07-26-2022 12:09-0400 Diastolic blood pressure 92 mm[Hg] Dr. Rosa Kemp Work Phone: [facility] 07-26-2022 12:09-0400 Heart rate 89 /min Dr. Rosa Kemp Work Phone: [facility] 07-26-2022 12:09-0400 Respiratory rate 18 /min Dr. Rosa Kemp Work Phone: [facility] 07-26-2022 12:09-0400 SaO2% (BldA) [Mass fraction] 97 % Dr. Rosa Kemp Work Phone: [facility] 07-26-2022 12:09-0400 Systolic blood pressure 146 mm[Hg] Dr. Rosa Kemp Work Phone: [facility] 07-25-2022 20:55-0400 Diastolic Blood Pressure Non-Invasive 84 1 DILCIA MAURER DO [facility] 07-25-2022 20:55-0400 Heart rate 77 /min DILCIA MAURER DO [facility] 07-25-2022 20:55-0400 Reason For Taking VItal Signs DILCIA REICHFIELD DO [facility] 07-25-2022 20:55-0400 Respiratory rate 16 /min DILCIA REICHFIELD DO [facility] 07-25-2022 20:55-0400 Systolic Blood Pressure Non-Invasive 143 1 DILCIA REICHFIELD DO [facility] 07-25-2022 18:39-0400 Body temperature 98.78 [degF] DILCIA REICHFIELD DO [facility] 07-25-2022 18:39-0400 Diastolic Blood Pressure Non-Invasive 88 1 DILCIA REICHFIELD DO [facility] 07-25-2022 18:39-0400 Heart rate 88 /min DILCIA REICHFIELD DO [facility] 07-25-2022 18:39-0400 Respiratory rate 16 /min DILCIA REICHFIELD DO [facility] 07-25-2022 18:39-0400 Systolic Blood Pressure Non-Invasive 150 1 DILCIA REICHFIELD DO [facility] 07-21-2022 09:15-0400 Body height 170.[address] Rosa Kemp Work Phone: [facility] 07-21-2022 09:15-0400 Body mass index (BMI) [Ratio] 28.4 kg/m2 Dr. Rosa Kemp Work Phone: [facility] 07-21-2022 09:15-0400 Body temperature 98 [degF] Dr. Rosa Kemp Work Phone: [facility] 07-21-2022 09:15-0400 Body weight 82.[address] Rosa Kemp Work Phone: [facility] 07-21-2022 09:15-0400 Diastolic blood pressure 100 mm[Hg] Dr. Rosa Kemp Work Phone: [facility] 07-21-2022 09:15-0400 Heart rate 74 /min Dr. Rosa Kemp Work Phone: [facility] 07-21-2022 09:15-0400 Respiratory rate 14 /min Dr. Rosa Kemp Work Phone: [facility] 07-21-2022 09:15-0400 SaO2% (BldA) [Mass fraction] 98 % Dr. Rosa Kemp Work Phone: [facility] 07-21-2022 09:15-0400 Systolic blood pressure 123 mm[Hg] Dr. Rosa Kemp Work Phone: [facility] 07-18-2022 16:54-0400 Body mass index (BMI) [Ratio] 27.6 kg/m2 Dr. Rosa Kemp Work Phone: [facility] 07-18-2022 16:54-0400 Body temperature 98.9 [degF] Dr. Rosa Kemp Work Phone: [facility] 07-18-2022 16:54-0400 Body weight 79.[address] Rosa Kemp Work Phone: [facility] 07-18-2022 16:54-0400 Diastolic blood pressure 80 mm[Hg] Dr. Rosa Kemp Work Phone: [facility] 07-18-2022 16:54-0400 Heart rate 71 /min Dr. Rosa Kemp Work Phone: [facility] 07-18-2022 16:54-0400 Respiratory rate 14 /min Dr. Rosa Kemp Work Phone: [facility] 07-18-2022 16:54-0400 SaO2% (BldA) [Mass fraction] 98 % Dr. Rosa Kemp Work Phone: [facility] 07-18-2022 16:54-0400 Systolic blood pressure 124 mm[Hg] Dr. Rosa Kemp Work Phone: [facility] 06-10-2022 22:19-0500 Respiratory rate 14 /min Dr. Rosa Kemp Work Phone: [facility] 06-10-2022 18:32-0500 Body height 170.[address] Rosa Kemp Work Phone: [facility] 06-10-2022 18:32-0500 Body mass index (BMI) [Ratio] 27.1 kg/m2 Dr. Rosa Kemp Work Phone: [facility] 06-10-2022 18:32-0500 Body temperature 97 [degF] Dr. Rosa Kemp Work Phone: [facility] 06-10-2022 18:32-0500 Body weight 78.[address] Rosa Kemp Work Phone: [facility] 06-10-2022 18:32-0500 Diastolic blood pressure 90 mm[Hg] Dr. Rosa Kemp Work Phone: [facility] 06-10-2022 18:32-0500 Heart rate 106 /min Dr. Rosa Kemp Work Phone: [facility] 06-10-2022 18:32-0500 SaO2% (BldA) [Mass fraction] 97 % Dr. Rosa Kemp Work Phone: [facility] 06-10-2022 18:32-0500 Systolic blood pressure 129 mm[Hg] Dr. Rosa Kemp Work Phone: [facility] 06-10-2022 02:48-0500 Blood Pressure Location SAM MACIAS MD [facility] 06-10-2022 02:48-0500 Body temperature 97.7 [degF] SAM MACIAS MD [facility] 06-10-2022 02:48-0500 Diastolic Blood Pressure Non-Invasive 67 1 SAM MACIAS MD [facility] 06-10-2022 02:48-0500 Heart rate 90 /min SAM MACIAS MD [facility] 06-10-2022 02:48-0500 Reason For Taking VItal Signs SAM MACIAS MD [facility] 06-10-2022 02:48-0500 Respiratory rate 20 /min SAM MACIAS MD [facility] 06-10-2022 02:48-0500 Systolic Blood Pressure Non-Invasive 114 1 SAM MACIAS MD [facility] 05-24-2022 11:03-0500 Body weight 79.92 kg Nurse Wstr Work Phone: [facility] 05-24-2022 11:03-0500 Diastolic blood pressure 80 mm[Hg] Nurse Wstr Work Phone: [facility] 05-24-2022 11:03-0500 Systolic blood pressure 118 mm[Hg] Nurse Wstr Work Phone: [facility] 05-18-2022 10:28-0500 Body mass index (BMI) [Ratio] 27.6 kg/m2 Dr. Roas Kemp Work Phone: [facility] 05-18-2022 10:28-0500 Body temperature 97.8 [degF] Dr. Rosa Kemp Work Phone: [facility] 05-18-2022 10:28-0500 Body weight 79.[address] Rosa Kemp Work Phone: [facility] 05-18-2022 10:28-0500 Diastolic blood pressure 82 mm[Hg] Dr. Rosa Kemp Work Phone: [facility] 05-18-2022 10:28-0500 Heart rate 76 /min Dr. Rosa Kemp Work Phone: [facility] 05-18-2022 10:28-0500 Respiratory rate 14 /min Dr. Rosa Kemp Work Phone: [facility] 05-18-2022 10:28-0500 SaO2% (BldA) [Mass fraction] 98 % Dr. Rosa Kemp Work Phone: [facility] 05-18-2022 10:28-0500 Systolic blood pressure 120 mm[Hg] Dr. Rosa Kemp Work Phone: [facility] 05-09-2022 14:00-0500 Body temperature 98.2 [degF] Dr. Rosa Kemp Work Phone: [facility] 05-09-2022 14:00-0500 Diastolic blood pressure 82 mm[Hg] Dr. Rosa Kemp Work Phone: [facility] 05-09-2022 14:00-0500 Heart rate 90 /min Dr. Rosa Kemp Work Phone: [facility] 05-09-2022 14:00-0500 Respiratory rate 20 /min Dr. Rosa Kemp Work Phone: [facility] 05-09-2022 14:00-0500 SaO2% (BldA) [Mass fraction] 98 % Dr. Rosa Kemp Work Phone: [facility] 05-09-2022 14:00-0500 Systolic blood pressure 120 mm[Hg] Dr. Rosa Kemp Work Phone: [facility] 05-06-2022 14:16-0500 Body height 170.[address] Rosa Kemp Work Phone: [facility] Work Phone: 05-06-2022 14:16-0500 Body mass index (BMI) [Ratio] 26.5 kg/m2 Dr. Rosa Kemp Work Phone: [facility] 05-06-2022 14:16-0500 Body temperature 97.1 [degF] Dr. Rosa Kemp Work Phone: [facility] 05-06-2022 14:16-0500 Body weight 76.[address] Rosa Kemp Work Phone: [facility] 05-06-2022 14:16-0500 Diastolic blood pressure 75 mm[Hg] Dr. Rosa Kemp Work Phone: [facility] 05-06-2022 14:16-0500 Heart rate 90 /min Dr. Rosa Kemp Work Phone: [facility] 05-06-2022 14:16-0500 Respiratory rate 14 /min Dr. Rosa Kemp Work Phone: [facility] 05-06-2022 14:16-0500 SaO2% (BldA) [Mass fraction] 96 % Dr. Rosa Kemp Work Phone: [facility] 05-06-2022 14:16-0500 Systolic blood pressure 126 mm[Hg] Dr. Rosa Kemp Work Phone: [facility] 04-21-2022 11:11-0500 Body height 170.[address] Rosa Kemp Work Phone: [facility] Work Phone: 04-21-2022 11:11-0500 Body mass index (BMI) [Ratio] 25.8 kg/m2 Dr. Rosa Kemp Work Phone: [facility] 04-21-2022 11:11-0500 Body temperature 97.8 [degF] Dr. Rosa Kemp Work Phone: [facility] 04-21-2022 11:11-0500 Body weight 74.[address] Rosa Kemp Work Phone: [facility] 04-21-2022 11:11-0500 Diastolic blood pressure 62 mm[Hg] Dr. Rosa Kemp Work Phone: [facility] 04-21-2022 11:11-0500 Heart rate 90 /min Dr. Rosa Kemp Work Phone: [facility] 04-21-2022 11:11-0500 Respiratory rate 16 /min Dr. Rosa Kemp Work Phone: [facility] 04-21-2022 11:11-0500 SaO2% (BldA) [Mass fraction] 97 % Dr. Rosa Kemp Work Phone: [facility] 04-21-2022 11:11-0500 Systolic blood pressure 120 mm[Hg] Dr. Rosa Kemp Work Phone: [facility] 04-07-2022 08:27-0500 Body temperature 98.6 [degF] Dr. Rosa Kemp Work Phone: [facility] 04-07-2022 08:27-0500 Diastolic blood pressure 82 mm[Hg] Dr. Rosa Kemp Work Phone: [facility] 04-07-2022 08:27-0500 Heart rate 106 /min Dr. Rosa Kemp Work Phone: [facility] 04-07-2022 08:27-0500 Respiratory rate 16 /min Dr. Rosa Kemp Work Phone: [facility] 04-07-2022 08:27-0500 SaO2% (BldA) [Mass fraction] 97 % Dr. Rosa Kemp Work Phone: [facility] 04-07-2022 08:27-0500 Systolic blood pressure 120 mm[Hg] Dr. Rosa Kemp Work Phone: [facility] 03-21-2022 10:05-0500 Body temperature 98.3 [degF] Dr. Rosa Kemp Work Phone: [facility] 03-21-2022 10:05-0500 Body weight 75.[address] Rosa Kemp Work Phone: [facility] 03-21-2022 10:05-0500 Diastolic blood pressure 84 mm[Hg] Dr. Rosa Kemp Work Phone: [facility] 03-21-2022 10:05-0500 Heart rate 107 /min Dr. Rosa Kemp Work Phone: [facility] 03-21-2022 10:05-0500 Respiratory rate 18 /min Dr. Rosa Kemp Work Phone: [facility] 03-21-2022 10:05-0500 SaO2% (BldA) [Mass fraction] 97 % Dr. Rosa Kemp Work Phone: [facility] 03-21-2022 10:05-0500 Systolic blood pressure 130 mm[Hg] Dr. Rosa Kemp Work Phone: [facility] 03-20-2022 17:13-0500 Body height 170.[address] Rosa Kemp Work Phone: [facility] Work Phone: 03-20-2022 17:13-0500 Body mass index (BMI) [Ratio] 26.9 kg/m2 Dr. Rosa Kemp Work Phone: [facility] 03-20-2022 17:13-0500 Body temperature 98.4 [degF] Dr. Rosa Kemp Work Phone: [facility] 03-20-2022 17:13-0500 Body weight [address] Rosa Kemp Work Phone: [facility] 03-20-2022 17:13-0500 Diastolic blood pressure 65 mm[Hg] Dr. Rosa Kemp Work Phone: [facility] 03-20-2022 17:13-0500 Heart rate 81 /min Dr. Rosa Kemp Work Phone: [facility] 03-20-2022 17:13-0500 Respiratory rate 16 /min Dr. Rosa Kemp Work Phone: [facility] 03-20-2022 17:13-0500 SaO2% (BldA) [Mass fraction] 96 % Dr. Rosa Kemp Work Phone: [facility] 03-20-2022 17:13-0500 Systolic blood pressure 113 mm[Hg] Dr. Rosa Kemp Work Phone: [facility] 03-17-2022 20:57-0500 Heart rate 84 /min Dr. Rosa Kemp Work Phone: [facility] 03-17-2022 20:57-0500 Respiratory rate 16 /min Dr. Rosa Kemp Work Phone: [facility] 03-17-2022 20:57-0500 SaO2% (BldA) [Mass fraction] 97 % Dr. Rosa Kemp Work Phone: [facility] 03-17-2022 16:59-0500 Body height 170.[address] Rosa Kemp Work Phone: [facility] Work Phone: 03-17-2022 16:59-0500 Body mass index (BMI) [Ratio] 25.9 kg/m2 Dr. Rosa Kemp Work Phone: [facility] 03-17-2022 16:59-0500 Body temperature 99.3 [degF] Dr. Rosa Kemp Work Phone: [facility] 03-17-2022 16:59-0500 Body weight 75.[address] Rosa Kemp Work Phone: [facility] 03-17-2022 16:59-0500 Diastolic blood pressure 56 mm[Hg] Dr. Rosa Kemp Work Phone: [facility] 03-17-2022 16:59-0500 Systolic blood pressure 117 mm[Hg] Dr. Rosa Kemp Work Phone: [facility] 03-01-2022 16:37-0400 Diastolic blood pressure 51 mm[Hg] Dr. Rosa Kemp Work Phone: [facility] 03-01-2022 16:37-0400 Heart rate 69 /min Dr. Rosa Kemp Work Phone: [facility] 03-01-2022 16:37-0400 Respiratory rate 14 /min Dr. Rosa Kemp Work Phone: [facility] 03-01-2022 16:37-0400 SaO2% (BldA) [Mass fraction] 95 % Dr. Rosa Kemp Work Phone: [facility] 03-01-2022 16:37-0400 Systolic blood pressure 122 mm[Hg] Dr. Rosa Kemp Work Phone: [facility] 03-01-2022 13:14-0400 Body height 170.[address] Rosa Kemp Work Phone: [facility] Work Phone: 03-01-2022 13:14-0400 Body mass index (BMI) [Ratio] 26.9 kg/m2 Dr. Rosa Kemp Work Phone: [facility] 03-01-2022 13:14-0400 Body temperature 98.1 [degF] Dr. Rosa Kemp Work Phone: [facility] 03-01-2022 13:14-0400 Body weight 77.[address] Rosa Kemp Work Phone: [facility] 02-16-2022 15:47-0400 Body temperature 98.7 [degF] Dr. Rosa Kemp Work Phone: [facility] 02-16-2022 15:47-0400 Diastolic blood pressure 76 mm[Hg] Dr. Rosa Kemp Work Phone: [facility] 02-16-2022 15:47-0400 Heart rate 96 /min Dr. Rosa Kemp Work Phone: [facility] 02-16-2022 15:47-0400 Respiratory rate 14 /min Dr. Rosa Kemp Work Phone: [facility] 02-16-2022 15:47-0400 SaO2% (BldA) [Mass fraction] 97 % Dr. Rosa Kemp Work Phone: [facility] 02-16-2022 15:47-0400 Systolic blood pressure 118 mm[Hg] Dr. Rosa Kemp Work Phone: [facility] 01-29-2022 15:28-0400 Body temperature 98.78 [degF] JAMES LAMB MD [facility] 01-29-2022 15:28-0400 Diastolic blood pressure 78 mm[Hg] JAMES LAMB MD [facility] 01-29-2022 15:28-0400 Heart rate 82 /min JAMES LAMB MD [facility] 01-29-2022 15:28-0400 Respiratory rate 18 /min JAMES LAMB MD [facility] 01-29-2022 15:28-0400 Systolic blood pressure 132 mm[Hg] JAMES LAMB MD [facility] 01-20-2022 15:49-0400 Body mass index (BMI) [Ratio] 25.9 kg/m2 Dr. Rosa Kemp Work Phone: [facility] Work Phone: 01-20-2022 15:49-0400 Body temperature 97.8 [degF] Dr. Rosa Kemp Work Phone: [facility] Work Phone: 01-20-2022 15:49-0400 Body weight 75.[address] Rosa Kemp Work Phone: [facility] Work Phone: 01-20-2022 15:49-0400 Diastolic blood pressure 78 mm[Hg] Dr. Rosa Kemp Work Phone: [facility] Work Phone: 01-20-2022 15:49-0400 Heart rate 90 /min Dr. Rosa Kemp Work Phone: [facility] Work Phone: 01-20-2022 15:49-0400 Respiratory rate 16 /min Dr. Rosa Kemp Work Phone: [facility] Work Phone: 01-20-2022 15:49-0400 SaO2% (BldA) [Mass fraction] 97 % Dr. Rosa Kemp Work Phone: [facility] Work Phone: 01-20-2022 15:49-0400 Systolic blood pressure 128 mm[Hg] Dr. Rosa Kemp Work Phone: [facility] Work Phone: 01-18-2022 16:21-0400 Body height 170.[address] Rosa Kemp Work Phone: [facility] Work Phone: 01-18-2022 16:21-0400 Body mass index (BMI) [Ratio] 26.3 kg/m2 Dr. Rosa Kemp Work Phone: [facility] Work Phone: 01-18-2022 16:21-0400 Body temperature 98.9 [degF] Dr. Rosa Kemp Work Phone: [facility] Work Phone: 01-18-2022 16:21-0400 Body weight 76.[address] Rosa Kemp Work Phone: [facility] Work Phone: 01-18-2022 16:21-0400 Diastolic blood pressure 60 mm[Hg] Dr. Rosa Kemp Work Phone: [facility] Work Phone: 01-18-2022 16:21-0400 Heart rate 86 /min Dr. Rosa Kemp Work Phone: [facility] Work Phone: 01-18-2022 16:21-0400 Respiratory rate 17 /min Dr. Rosa Kemp Work Phone: [facility] Work Phone: 01-18-2022 16:21-0400 SaO2% (BldA) [Mass fraction] 98 % Dr. Rosa Kemp Work Phone: [facility] Work Phone: 01-18-2022 16:21-0400 Systolic blood pressure 114 mm[Hg] Dr. Rosa Kemp Work Phone: [facility] Work Phone: 01-06-2022 15:50-0400 Body weight 75.75 kg Nurse Wstr Work Phone: [facility] 01-06-2022 15:50-0400 Diastolic blood pressure 68 mm[Hg] Nurse Wstr Work Phone: [facility] 01-06-2022 15:50-0400 Systolic blood pressure 110 mm[Hg] Nurse Wstr Work Phone: [facility] 12-20-2021 08:31-0400 Body height 167.[address] Rosa Kemp Work Phone: [facility] Work Phone: 12-20-2021 08:31-0400 Body mass index (BMI) [Ratio] 26.1 kg/m2 Dr. Rosa Kemp Work Phone: [facility] Work Phone: 12-20-2021 08:31-0400 Body temperature 98.2 [degF] Dr. Rosa Kemp Work Phone: [facility] Work Phone: 12-20-2021 08:31-0400 Body weight 73.[address] Rosa Kemp Work Phone: [facility] Work Phone: 12-20-2021 08:31-0400 Diastolic blood pressure 92 mm[Hg] Dr. Rosa Kemp Work Phone: [facility] Work Phone: 12-20-2021 08:31-0400 Heart rate 81 /min Dr. Rosa Kemp Work Phone: [facility] Work Phone: 12-20-2021 08:31-0400 Respiratory rate 16 /min Dr. Rosa Kemp Work Phone: [facility] Work Phone: 12-20-2021 08:31-0400 SaO2% (BldA) [Mass fraction] 97 % Dr. Rosa Kemp Work Phone: [facility] Work Phone: 12-20-2021 08:31-0400 Systolic blood pressure 138 mm[Hg] Dr. Rosa Kemp Work Phone: [facility] Work Phone: 12-11-2021 14:49-0400 Body height 167.[address] Rosa Kemp Work Phone: [facility] Work Phone: 12-11-2021 14:49-0400 Body mass index (BMI) [Ratio] 26.9 kg/m2 Dr. Rosa Kemp Work Phone: [facility] Work Phone: 12-11-2021 14:49-0400 Body temperature 98 [degF] Dr. Rosa Kemp Work Phone: [facility] Work Phone: 12-11-2021 14:49-0400 Body weight 75.[address] Rosa Kemp Work Phone: [facility] Work Phone: 12-11-2021 14:49-0400 Diastolic blood pressure 79 mm[Hg] Dr. Rosa Kemp Work Phone: [facility] Work Phone: 12-11-2021 14:49-0400 Heart rate 94 /min Dr. Rosa Kemp Work Phone: [facility] Work Phone: 12-11-2021 14:49-0400 Respiratory rate 16 /min Dr. Rosa Kemp Work Phone: [facility] Work Phone: 12-11-2021 14:49-0400 SaO2% (BldA) [Mass fraction] 97 % Dr. Rosa Kemp Work Phone: [facility] Work Phone: 12-11-2021 14:49-0400 Systolic blood pressure 124 mm[Hg] Dr. Rosa Kemp Work Phone: [facility] Work Phone: 12-09-2021 15:52-0400 Body mass index (BMI) [Ratio] 25.2 kg/m2 Dr. Rosa Kemp Work Phone: [facility] Work Phone: 12-09-2021 15:52-0400 Body temperature 98.8 [degF] Dr. Rosa Kemp Work Phone: [facility] Work Phone: 12-09-2021 15:52-0400 Body weight 73.[address] Rosa Kemp Work Phone: [facility] Work Phone: 12-09-2021 15:52-0400 Diastolic blood pressure 74 mm[Hg] Dr. Rosa Kemp Work Phone: [facility] Work Phone: 12-09-2021 15:52-0400 Heart rate 92 /min Dr. Rosa Kemp Work Phone: [facility] Work Phone: 12-09-2021 15:52-0400 Respiratory rate 16 /min Dr. Rosa Kemp Work Phone: [facility] Work Phone: 12-09-2021 15:52-0400 SaO2% (BldA) [Mass fraction] 98 % [facility] Work Phone: 12-09-2021 15:52-0400 Systolic blood pressure 124 mm[Hg] Dr. Rosa Kemp Work Phone: [facility] Work Phone: 12-07-2021 18:00-0400 Body temperature 98.24 [degF] MYNOR TINOCO MD [facility] 12-07-2021 18:00-0400 Body weight 72.4 kg MYNOR TINOCO MD [facility] 12-07-2021 18:00-0400 Diastolic blood pressure 88 mm[Hg] MYNOR TINOCO MD [facility] 12-07-2021 18:00-0400 Heart rate 92 /min MYNOR TINOCO MD [facility] 12-07-2021 18:00-0400 Mean blood pressure 101 mm[Hg] MYNOR TINOCO MD [facility] 12-07-2021 18:00-0400 Respiratory rate 16 /min MYNOR TINOCO MD [facility] 12-07-2021 18:00-0400 Systolic blood pressure 128 mm[Hg] MYNOR TINOCO MD [facility] 11-20-2021 10:05-0400 Body temperature 98.42 [degF] SAM MACIAS MD [facility] 11-20-2021 10:05-0400 Diastolic blood pressure 78 mm[Hg] SAM MACIAS MD [facility] 11-20-2021 10:05-0400 Heart rate 70 /min SAM MACIAS MD [facility] 11-20-2021 10:05-0400 Respiratory rate 18 /min SAM MACIAS MD [facility] 11-20-2021 10:05-0400 Systolic blood pressure 135 mm[Hg] SAM MACIAS MD [facility] 10-12-2021 08:55-0400 Body mass index (BMI) [Ratio] 27.1 kg/m2 Dr. Rosa Kemp Work Phone: [facility] Work Phone: 10-12-2021 08:55-0400 Body temperature 98.2 [degF] Dr. Rosa Kemp Work Phone: [facility] Work Phone: 10-12-2021 08:55-0400 Body weight 78.[address] Rosa Kemp Work Phone: [facility] Work Phone: 10-12-2021 08:55-0400 Diastolic blood pressure 66 mm[Hg] Dr. Rosa Kemp Work Phone: [facility] Work Phone: 10-12-2021 08:55-0400 Heart rate 87 /min Dr. Rosa Kemp Work Phone: [facility] Work Phone: 10-12-2021 08:55-0400 Respiratory rate 14 /min Dr. Rosa Kemp Work Phone: [facility] Work Phone: 10-12-2021 08:55-0400 SaO2% (BldA) [Mass fraction] 98 % Dr. Rosa Kemp Work Phone: [facility] Work Phone: 10-12-2021 08:55-0400 Systolic blood pressure 108 mm[Hg] Dr. Rosa Kemp Work Phone: [facility] Work Phone: 10-10-2021 17:29-0400 Body height 167.6 cm SAM MACIAS MD [facility] 10-10-2021 17:29-0400 Body temperature 98.06 [degF] SAM MACIAS MD [facility] 10-10-2021 17:29-0400 Body weight 75 kg SAM MACIAS MD [facility] 10-10-2021 17:29-0400 Diastolic blood pressure 85 mm[Hg] SAM MACIAS MD [facility] 10-10-2021 17:29-0400 Heart rate 85 /min SAM MACIAS MD [facility] 10-10-2021 17:29-0400 Respiratory rate 20 /min SAM MACIAS MD [facility] 10-10-2021 17:29-0400 Systolic blood pressure 132 mm[Hg] SAM MACIAS MD [facility] 09-14-2021 14:45-0400 Body temperature 97.8 [degF] Dr. Rosa Kemp Work Phone: [facility] Work Phone: 09-14-2021 14:45-0400 Diastolic blood pressure 76 mm[Hg] Dr. Rosa Kemp Work Phone: [facility] Work Phone: 09-14-2021 14:45-0400 Heart rate 108 /min Dr. Rosa Kemp Work Phone: [facility] Work Phone: 09-14-2021 14:45-0400 Respiratory rate 15 /min Dr. Rosa Kemp Work Phone: [facility] Work Phone: 09-14-2021 14:45-0400 SaO2% (BldA) [Mass fraction] 98 % Dr. Rosa Kemp Work Phone: [facility] Work Phone: 09-14-2021 14:45-0400 Systolic blood pressure 114 mm[Hg] Dr. Rosa Kemp Work Phone: [facility] Work Phone: 09-09-2021 12:17-0400 Body temperature 99.1 [degF] Dr. Rosa Kemp Work Phone: [facility] Work Phone: 09-09-2021 12:17-0400 Diastolic blood pressure 78 mm[Hg] Dr. Rosa Kemp Work Phone: [facility] Work Phone: 09-09-2021 12:17-0400 Heart rate 97 /min Dr. Rosa Kemp Work Phone: [facility] Work Phone: 09-09-2021 12:17-0400 Respiratory rate 16 /min Dr. Rosa Kemp Work Phone: [facility] Work Phone: 09-09-2021 12:17-0400 SaO2% (BldA) [Mass fraction] 98 % Dr. Rosa Kemp Work Phone: [facility] Work Phone: 09-09-2021 12:17-0400 Systolic blood pressure 114 mm[Hg] Dr. Rosa Kemp Work Phone: [facility] Work Phone: 09-06-2021 15:03-0400 Body height 166.4 cm Angelina Bartlett APRN.FANCY STITCHER Work Phone: [facility] 09-06-2021 15:03-0400 Body weight 76.57 kg Angelina Bartlett APRN.FANCY STITCHER Work Phone: [facility] 09-06-2021 15:03-0400 Diastolic blood pressure 66 mm[Hg] Angelina Bartlett APRN.FANCY STITCHER Work Phone: [facility] 09-06-2021 15:03-0400 Systolic blood pressure 120 mm[Hg] Angelina Bartlett APRN.FANCY STITCHER Work Phone: [facility] 09-05-2021 17:57-0400 Body temperature 98.78 [degF] SHEYLA ROSAS DO [facility] 09-05-2021 17:57-0400 Diastolic blood pressure 85 mm[Hg] SHEYLA ROSAS DO [facility] 09-05-2021 17:57-0400 Heart rate 107 /min SHEYLA GHADAChyna [facility] 09-05-2021 17:57-0400 Respiratory rate 16 /min SHEYLA FROMMELT DO [facility] 09-05-2021 17:57-0400 Systolic blood pressure 128 mm[Hg] SHEYLA FROMMELT DO [facility] 08-23-2021 09:23-0400 Body weight 79.02 kg Nurse Wstr Work Phone: [facility] 08-23-2021 09:23-0400 Diastolic blood pressure 74 mm[Hg] Nurse Wstr Work Phone: [facility] 08-23-2021 09:23-0400 Systolic blood pressure 124 mm[Hg] Nurse Wstr Work Phone: [facility] 06-25-2021 18:30-0500 Body temperature 98.6 [degF] SHEYLA NEWTONMELT DO [facility] 06-25-2021 18:30-0500 Diastolic blood pressure 72 mm[Hg] SHEYLA FROMMELT DO [facility] 06-25-2021 18:30-0500 Heart rate 115 /min SHEYLA FROMMELT DO [facility] 06-25-2021 18:30-0500 Respiratory rate 18 /min SHEYLA FROMMELT DO [facility] 06-25-2021 18:30-0500 Systolic blood pressure 133 mm[Hg] SHEYLA FROMMELT DO [facility] Encounters Encounter Date Encounter Type Care Provider Facility Start: 03-13-2025 End: 03-13-2025 Emergency department patient visit Rosa Kemp Facility:[facility] Start: 03-11-2025 Encounter for other preprocedural examination Goyo Lim [facility] Start: 03-11-2025 End: 03-11-2025 Emergency department patient visit Sagarmiddleburgkenrick Kemp Facility:[facility] Start: 03-05-2025 End: 03-05-[facility] Start: 02-18-2025 ambulatory Rosa Kemp Facili ty:[facility] Start: 02-18-2025 End: 02-18-2025 ambulatory Sagarmiddle[place]kenrick Kemp Facility:[facility] Start: 02-04-2025 End: 02-04-2025 ambulatory [facility] Facility:[facility] Start: 02-02-2025 End: 02-02-2025 ambulatory Rosa Kemp Facility:[facility] Start: 02-01-2025 End: 02-01-2025 Emergency department patient visit ELTON NAQVI MD [facility] Start: 01-22-2025 End: 01-22-2025 ambulatory Nette Diane Facility:[facility] Start: 01-07-2025 End: 01-07-2025 Emergency department patient visit SAM MACIAS MD [facility] Start: 01-02-2025 End: 01-02-2025 ambulatory Rosa Kemp Facility:[facility] Start: 12-31-2024 End: 12-31-2024 ambulatory Henry Gibbs Facility:[facility] Start: 12-15-2024 ambulatory Efewongbe Oleherbiee Facili ty:[facility] Start: 12-09-2024 Encounter for other general examination Loy Odell [facility] Start: 12-07-2024 End: 12-07-2024 Emergency department patient visit Flo Price Facility:[facility] Start: 11-25-2024 End: 11-25-2024 Emergency department patient visit Loy Odell Facility:[facility] Start: 11-17-2024 End: 11-17-2024 ambulatory Rosa Garciase Facility:[facility] Start: 11-14-2024 End: 11-14-2024 ambulatory Efewongbe Oleherbiee Facility:[facility] Start: 11-10-2024 End: 11-10-2024 Emergency department patient visit JADE TOMLIN MD [facility] Start: 11-09-2024 End: 11-09-2024 Emergency department patient visit SHEYLA ROSAS DO [facility] Start: 11-09-2024 End: 11-09-2024 Emergency department patient visit Rosa Garciase Facility:[facility] Start: 11-02-2024 End: 11-02-2024 Emergency department patient visit Rosa Kemp Facility:[facility] Start: 10-16-2024 End: 10-16-2024 ambulatory Rosa Garciase Facility:[facility] Start: 10-12-2024 End: 10-12-2024 Emergency department patient visit CHI RAMIREZ DO [facility] Start: 10-03-2024 End: 10-03-2024 ambulatory Efinésongbe Dietere Facility:[facility] Start: 09-18-2024 End: 09-18-2024 ambulatory Efewongbe Dietere Facility:[facility] Start: 09-18-2024 End: 09-18-2024 ambulatory Renny MATUTE Facility:[facility] Start: 09-11-2024 End: 09-11-2024 Emergency department patient visit Carla Hung Facility:[facility] Start: 09-10-2024 End: 10-24-2024 ambulatory CLAUDIA BONNER PA-C Facility:[facility] Start: 09-10-2024 End: 10-24-2024 Physical therapy management CLAUDIA BONNER PA-C [facility] Start: 09-04-2024 End: 09-04-2024 ambulatory Henry Gibbs Facility:[facility] Start: 08-31-2024 End: 08-31-2024 Emergency department patient visit JACOB GOFF DO [facility] Start: 08-26-2024 End: 08-26-2024 Emergency department patient visit CHI RAMIREZ DO [facility] Start: 08-19-2024 End: 08-19-2024 Emergency department patient visit ROSA KEMP MD Facility:[facility] Start: 08-18-2024 End: 08-18-2024 Emergency department patient visit Ed Physician Provider Facility:[facility] Start: 08-07-2024 End: 08-07-2024 ambulatory Henry Gibbs Facility:[facility] Start: 07-17-2024 End: 07-17-2024 ambulatory Efewongbe Oleghe Facility:[facility] Start: 07-08-2024 End: 07-09-2024 Emergency department patient visit Rosa Garciase Facility:[facility] Start: 06-30-2024 End: 06-30-2024 [facility] Start: 06-19-2024 End: 06-19-2024 ambulatory Efewongbe Oleghe Facility:[facility] Start: 06-18-2024 End: 06-18-2024 ambulatory Efewongbe Oleghe Facility:[facility] Start: 06-17-2024 End: 06-18-2024 ambulatory Efewmiddleburgbe Olee Facility:[facility] Start: 06-14-2024 End: 06-14-2024 Emergency department patient visit Sagarmiddle[place]kenrick Brookee Facility:[facility] Start: 06-11-2024 End: 06-11-2024 [facility] Start: 06-10-2024 End: 06-11-2024 [facility]ulatory [facility] Facility:[facility] Start: 05-30-2024 End: 05-30-2024 Refill Angelina Bartlett APRN.CNP Work Phone: OB/Gynecology Comment on above: Refill Request Start: 05-27-2024 End: 05-27-2024 ambulatory Efewongbe Oleghe Facility:[facility] Start: 05-23-2024 End: 05-23-2024 ambulatory Efewongbe Oleghe Facility:[facility] Start: 05-13-2024 End: 05-13-2024 ambulatory Efewongbe Oleghe Facility:[facility] Start: 05-09-2024 ambulatory Efewongbe Oleghe Facili ty:[facility] Start: 04-07-2024 End: 04-07-2024 ambulatory Efewongbe Oleghe Facility:[facility] Start: 03-26-2024 ambulatory Efewongbe Oleghe Facili ty:[facility] Start: 03-24-2024 End: 03-24-2024 ambulatory Efewongbe Oleghe Facility:[facility] Start: 03-20-2024 End: 03-20-2024 ambulatory Nette Atanasov Facility:[facility] Start: 02-14-2024 End: 02-14-2024 Telephone encounter Yaquelin Gaston APRN.FANCY STITCHER Work Phone: OB/Gynecology Comment on above: Orders Start: 11-22-2023 End: 11-22-2023 ambulatory EFEWONGBE B OLEHERBIEE Facility:[facility] Start: 11-22-2023 End: 11-22-2023 Initial preventive [...] encounter status Pratima Kat MD Work Phone: [facility] Start: 11-19-2023 End: 11-19-2023 Emergency department patient visit SAM MACIAS MD [facility] Start: 11-13-2023 Refill Angelina PATRICIO RN.FANCY STITCHER Work Phone: OB/Gynecology Comment on above: Refill Request Start: 10-10-2023 Telephone encounter Anna Marie marie [employer] ADMINISTRATOR.FANCY STITCHER Work Phone: [facility] Comment on above: No Show Start: 09-24-2023 End: 09-24-2023 Emergency department patient visit SHEYLA ROSAS DO [facility] Start: 09-13-2023 E-mail encounter micheal m caregiver Anna Marie Pérez APRN.FANCY STITCHER Work Phone: [facility] Start: 09-13-2023 Patient encounter procedure Anna Marie Prebish [employer]S ADMINISTRATOR.FANCY STITCHER Work Phone: [facility] Comment on above: Reschedule Appointme nt 09/14/2023 Start: 08-29-2023 End: 08-29-2023 Nursing evaluation of patient and report Nurse S[employer] Fil[employer] Extruder [facility] Work Phone: OB/Gynecology Comment on above: Encounter for manage ment and injection of depo-Provera (Primary Dx) Start: 08-29-2023 End: 08-29-2023 ambulatory ROSA KEMP Facility:[facility] Start: 07-13-2023 End: 07-13-2023 Office outpatient new 45 minutes Anna Marie Prebish [employer]S ADMINISTRATOR.FANCY STITCHER Work Phone: [facility] GENERAL SPINE [facility] Comment on above: 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 General Rheumatology and Arthritis Comment on above: Results Start: 06-18-2023 Telephone encounter Lis jack MD Work Phone: [facility] General Rheumatology and Arthritis Comment on above: Initial Consult Start: 06-18-2023 End: 06-18-2023 Subsequent hospital visit by physician [facility] Comment on above: Pain in joint, multi ple sites [M25.50] Start: 06-18-2023 End: 06-18-2023 Patient encounter procedure Lis Freedman MD Work Phone: [facility] General Rheumatology and Arthritis Comment on above: Pain in joint, multi ple sites (Primary Dx); Vitamin D deficiency; Low back pain, unspecified back pain laterality, unspecified chronicity, unspecified whether sciatica present Start: 06-18-2023 End: 06-18-2023 ambulatory LIS FREEDMAN Facility:[facility] Start: 06-11-2023 Telephone encounter Angelina coker APRN.FANCY STITCHER Work Phone: OB/Gynecology Comment on above: Patient Question Start: 06-06-2023 End: 06-06-2023 ambulatory ROSA KEMP Facility:[facility] Start: 05-30-2023 End: 05-30-2023 Subsequent hospital visit by physician Xr [facility] Work Phone: Radiology Comment on above: Acute pain of left k nee [M25.562] Start: 05-30-2023 End: 05-30-2023 ambulatory ROSA KEMP Facility:[facility] Start: 03-15-2023 End: 03-15-2023 Nursing evaluation of patient and report Nurse [employer] [facility] Work Phone: OB/Gynecology Comment on above: Encounter for manage ment and injection of depo-Provera (Primary Dx) Start: 03-15-2023 End: 03-15-2023 ambulatory [facility] Facility:[facility] Start: 12-13-2022 End: 12-13-2022 Subsequent hospital visit by physician [facility] Comment on above: Chronic viral hepati tis C [B18.2] Start: 12-07-2022 Refill Angelina PATRICIO RN.FANCY STITCHER Work Phone: OB/Gynecology Comment on above: Refill Request Start: 09-18-2022 End: 09-18-2022 Emergency department patient visit SAM MACIAS MD [facility] Start: 09-05-2022 End: 09-05-2022 Patient encounter procedure Yaquelin Gaston APRN.FANCY STITCHER Work Phone: OB/Gynecology Comment on above: Acute cystitis with hematuria (Primary Dx); Dysmenorrhea; Encounter for surveillance of other contraceptive Start: 08-14-2022 End: 08-14-2022 Emergency department patient visit Dr. Rosa Kemp Work Phone: [facility] Start: 07-26-2022 End: 07-26-[address] Rosa Kemp Work Phone: [facility] Start: 07-25-2022 End: 07-25-2022 Emergency department patient visit DILCIA MAURER DO [facility] Start: 07-21-2022 End: 07-21-2022 Emergency department patient visit Dr. Rosa Kemp Work Phone: [facility] Start: 07-20-2022 End: 07-20-[address] Rosa Kemp Work Phone: [facility] Start: 07-18-2022 End: 07-18-[address] Rosa Kemp Work Phone: [facility] Internal Medicine Start: 07-05-2022 End: 07-05-[address] Rosa Kemp Work Phone: [facility] Start: 06-10-2022 End: 06-10-2022 Emergency department patient visit Dr. Rosa Kemp Work Phone: [facility] Start: 06-10-2022 End: 06-10-2022 Emergency department patient visit SAM MACIAS MD [facility] Start: 05-24-2022 End: 05-24-2022 Nursing evaluation of patient and report Nurse [employer] [facility] Work Phone: OB/Gynecology Comment on above: Surveillance for Dep o-Provera contraception (Primary Dx); Encounter for management and injection of depo-Provera Start: 05-18-2022 End: 05-18-[address] Rosa Kemp Work Phone: [facility] Start: 05-09-2022 End: 05-09-[address] Rosa Kemp Work Phone: [facility] Start: 05-06-2022 End: 05-06-2022 Emergency department patient visit Dr. Rosa Kemp Work Phone: [facility] Start: 04-21-2022 End: 04-21-2022 Emergency department patient visit Dr. Rosa Kemp Work Phone: [facility] Start: 04-07-2022 End: 04-07-[address] Rosa Kemp Work Phone: [facility] Start: 03-21-2022 End: 03-21-[address] Rosa Kemp Work Phone: [facility] Start: 03-20-2022 End: 03-20-2022 Emergency department patient visit Dr. oRsa Kemp Work Phone: [facility] Start: 03-17-2022 End: 03-17-2022 Emergency department patient visit Dr. Rosa Kemp Work Phone: [facility] Start: 03-01-2022 End: 03-01-2022 Emergency department [facility] Start: 02-16-2022 End: 02-16-[address] Rosa Kemp Work Phone: [facility] Start: 01-29-2022 End: 01-29-2022 Emergency department patient visit JAMES LAMB MD [facility] Start: 01-20-2022 End: 01-20-[address] Rosa Kemp Work Phone: [facility] Start: 01-18-2022 End: 01-18-2022 Emergency department patient visit Dr. Rosa Kemp Work Phone: [facility] Start: 01-18-2022 End: 01-18-[address] Rosa Kemp Work Phone: [facility] Start: 01-14-2022 End: 01-14-[address] Rosa Kemp Work Phone: [facility] Work Phone: Start: 01-14-2022 End: 01-14-[address] Rosa Kemp Work Phone: [facility] Start: 01-06-2022 End: 01-06-2022 Nursing evaluation of patient and report Nurse [employer]ruder [facility] Work Phone: OB/Gynecology Comment on above: Encounter for manage ment and injection of depo-Provera (Primary Dx) Start: 12-20-2021 End: 12-20-[address] Rosa Kemp Work Phone: [facility] Start: 12-11-2021 End: 12-11-2021 Emergency department patient visit Dr. Rosa Kemp Work Phone: [facility] Start: 12-09-2021 End: 12-09-[address] Rosa Kemp Work Phone: [facility] Internal [facility] Start: 12-07-2021 End: 12-07-2021 Emergency department patient visit MYNOR TINOCO MD [facility] Start: 11-24-2021 End: 11-24-[address] Rosa Kemp Work Phone: [facility] Start: 11-20-2021 End: 11-20-2021 Emergency department patient visit SAM MACIAS MD [facility] Start: 10-12-2021 End: 10-12-[address] Rosa Kemp Work Phone: [facility] Start: 10-10-2021 End: 10-10-2021 Emergency department patient visit SAM MACIAS MD [facility] Start: 09-14-2021 End: 09-14-[address] Rosa Kemp Work Phone: [facility] Start: 09-09-2021 End: 09-09-[address] Rosa Kemp Work Phone: [facility] Start: 09-06-2021 End: 09-06-2021 Patient encounter procedure Angelina Bartlett APRN.FANCY STITCHER Work Phone: OB/Gynecology Comment on above: Encounter for gyneco logical examination (general) (routine) without abnormal findings (Primary Dx); Need for prophylactic vaccination/inoculation against viral disease; Genital herpes simplex, unspecified site Start: 09-06-2021 End: 09-06-2021 Patient encounter status Angelina Bartlett APRN.FANCY STITCHER Work Phone: OB/Gynecology Start: 09-05-2021 End: 09-05-2021 Emergency department patient visit SHEYLA ROSAS DO [facility] Start: 08-23-2021 End: 08-23-2021 Nursing evaluation of patient and report Nurse Synthetic Filament Extruder [facility] Work Phone: OB/Gynecology Comment on above: Encounter for manage ment and injection of depo-Provera (Primary Dx) Start: 06-25-2021 End: 06-25-2021 Emergency department patient visit SHEYLA ROSAS DO [facility] Procedures Date Procedure Procedure Detail Performing Clinician Start: 06-18-2023 Radex hand minimum 3 views Lis Freedman MD Work Phone: Start: 05-30-2023 Radiologic exam knee complete 4/more views Vernon Calvin APRN.FANCY STITCHER Work Phone: Start: 03-15-2023 Urine test visual color cmprsn mellissa Penny MD Work Phone: Start: 12-13-2022 Ultrasound elastography parenchyma [facility] Provider Start: 09-05-2022 Urine test visual color cmprsn meths Yaquelin Ty HENSONNJONO Work Phone: Start: 08-14-2022 CT of head without contrast Dr. Rosa Kemp Work Phone: Start: 08-14-2022 Plain chest X-ray Dr. Rosa Kemp Work Phone: Start: 05-24-2022 Urine test visual color cmprsn meths Love Penny MD Work Phone: Start: 01-14-2022 MRI of lumbar spine Dr. Rosa Kemp Work Phone: Appendectomy SHEYLA NEWTONMEL T DO Cholecystectomy SHEYLA FROM MELT DO History of cholecystectomy History of cholecystectomy Dr. Rosa Kemp Work Phone: Streptococcus pyogen es antigen assay Dr. Rosa Kemp Work Phone: Urine culture Dr. Rosa Kemp Work Phone: Urine culture Dr. Rosa Kemp Work Phone: Plan of Treatment Date Care Activity Detail Author Start: 09-06-2031 Urine microalbumin profile DTaP,Tdap,Td Vaccine (7 - Td or Tdap) [facility] Start: 11-21-2028 Screening for malign ant neoplasm of cervix Cervical Cancer Screening [facility] Start: 03-26-2025 ambulatory Facility:[facility] Start: 12-11-2024 HPV TESTING HPV TESTING [facility] Start: 12-11-2024 PAP TESTING PAP TESTING [facility] Start: 12-11-2024 Screening for malign ant neoplasm of cervix [facility] Start: 02-14-2024 End: 02-14-2024 Nursing evaluation of patient and report 02/14/2024 4:00 PM EDT Nurse Visit OB/Gynecology [address] [place] [address] Wstr, Nurse Synthetic Filament Extruder [facility] [address] [place] [address] depo OB/Gynecology Comment on above: depo Start: 01-06-2024 Covid-19 Vaccine ( season) Covid-19 Vaccine () [facility] Start: 01-06-2024 Covid-19 Vaccine () Covid-19 Vaccine () [facility] Start: 01-06-2024 Influenza vaccination [facility] Start: 11-21-2023 End: 11-21-2023 Nursing evaluation of patient and report OB/Gynecology Comment on above: Depo Depo - needs annual Start: 10-04-2023 End: 10-04-2023 Patient encounter procedure 10/04/2023 3:30 PM EDT Office Visit [facility] [address] [place] [address] Anna Marie Pérez APRN.FANCY STITCHER [address] [place] [address] follow up [facility] Comment on above: follow up Start: 09-14-2023 End: 09-14-2023 Patient encounter procedure 09/14/2023 2:45 PM EDT Office Visit [facility] [address] [place] [address] Anna Marie Pérez, [employer] ADMINISTRATOR.FANCY STITCHER [address] [place] [address] 2 month follow up [facility] Comment on above: 2 month follow up Start: 05-07-2023 Depression Assessment Depression Ass essment [facility] Start: 01-05-2023 Covid-19 Vaccine () Covid-19 Vaccine () [facility] Start: 01-05-2023 Influenza vaccination [facility] Start: 08-15-2022 [facility] Start: 08-14-2022 [facility] Start: 07-05-2022 Patient referral [facility] Work Phone: Start: 05-07-2022 DEPRESSION ASSESSMENT DEPRESSION ASS ESSMENT [facility] Start: 03-21-2022 Patient referral [facility] Work Phone: Start: 03-20-2022 [facility] Work Phone: Start: 03-05-2022 9vhpv vacc 2/3 dose sched im use HUMAN PAPILLOMAVIRUS 9-VALENT HPV IM Immunization/Injection Routine Expected: 03/05/2022 (Approximate) [facility] Work Phone: Comment on above: Expected: 03/05/2022 (Approximate) Start: 01-05-2022 Influenza vaccination [facility] Start: 11-05-2021 9vhpv vacc 2/3 dose sched im use HUMAN PAPILLOMAVIRUS 9-VALENT HPV IM Immunization/Injection Routine Expected: 11/05/2021 (Approximate) [facility] Work Phone: Comment on above: Expected: 11/05/2021 (Approximate) Start: 10-04-2021 HPV VACCINE (2 - 3-d ose SCDM series) HPV VACCINE (2 - 3-dose SCDM series) [facility] Start: 2009 Pneumococcal vaccination Pneumococcal Vaccine (1 of 2 - PCV) [facility] Start: 2009 Urine microalbumin profile DTAP,TDAP,TD (4 - Tdap) [facility] Start: 2008 Annual PCP Team Pump Technician joshua Disease Visit Annual PCP Team Chronic Disease Visit [facility] Start: 2008 Anxiety Screening Anxiety Screening [facility] Start: 2008 Depression Screening Depression Scre ening [facility] Start: 2008 Spirometry Spirometry [facility] Start: 2002 Adult depression screening assessment DEPRESSION SCREENING [facility] Start: 1996 PNEUMOCOCCAL (1 - PCV) PNEUMOCOCCAL (1 - PCV) [facility] Start: 1996 Pneumococcal vaccination [facility] Start: 09-17-1995 COVID-19 VACCINE (1) [facility] Start: 03-19-1991 COVID-19 VACCINE (#1) COVID-19 VACCI NE (#1) [facility] Start: 1990 HEPATITIS B (1 of 3 - 3-dose series) HEPATITIS B (1 of 3 - 3-dose series) [facility] Bacteria identified in Urine by Culture URINE CULTURE Microbiology Routine Acute cystitis with hematuria 09/05/2022 3:29 PM EDT [facility] Work Phone: Chlamydia trachomatis+Neisseria gonorrhoeae DNA [Presence] in Unspecified specimen by AUSTIN with probe detection GONORRHEA/CHLAMYDIA NAAT Lab Routine Screen for STD (sexually transmitted disease) 11/22/2023 2:10 PM EDT [facility] PAP TEST PAP TEST Lab Louie le Screening for cervical cancer Encounter for screening for human papillomavirus (HPV) 11/22/2023 2:10 PM EDT [facility] Work Phone: Patient Education [facility] Work Phone: Patient referral [facility] Work Phone: Streptococcus pyogen es antigen assay Group A Streptococcus Rapid Screen [facility] Work Phone: Therapeutic prophylactic/dx injection subq/im THER/PROPH/DIAG INJ, SC/IM Procedures Routine Need for prophylactic vaccination/inoculation against viral disease Ordered: 09/06/2021 [facility] Work Phone: Comment on above: Ordered: 09/06/2021 [facility] Immunizations Immunization Date Immunization Notes Care Provider Loc sarkar 09-06-2021 Human Papillomavirus 9-valent vaccine Angelina Bartlett APRN.CNP Work Phone: [facility] Work Phone: 09-05-2021 tetanus toxoid, redu tadeo diphtheria toxoid, and acellular pertussis vaccine, fausto ROSAS DO [facility] 10-08-2019 tetanus toxoid, redu tadeo diphtheria toxoid, and acellular pertussis vaccine, adsorbed; Translations: [Boostrix (Tdap)] SHEYLA ROSAS DO [facility] 04-30-2018 tetanus toxoid, redu tadeo diphtheria toxoid, and acellular pertussis vaccine, adsorbed Dr. Rosa Kemp Work Phone: [facility] 04-25-2014 tetanus and diphther ia toxoids, adsorbed, preservative free, for adult use (2 Lf of tetanus toxoid and 2 Lf of diphtheria toxoid) Dr. Rosa Kemp Work Phone: [facility] 04-21-1991 diphtheria, tetanus toxoids and acellular pertussis vaccine Nurse Wstr Work Phone: [facility] 04-21-1991 DTP-Haemophilus influenzae type b conjugate vaccine Nurse Wstr Work Phone: [facility] 01-14-1991 diphtheria, tetanus toxoids and acellular pertussis vaccine Nurse Wstr Work Phone: [facility] 01-14-1991 DTP-Haemophilus influenzae type b conjugate vaccine Nurse Wstr Work Phone: [facility] 01-14-1991 trivalent poliovirus vaccine, live, oral Nurse Wstr Work Phone: [facility] 1990 diphtheria, tetanus toxoids and acellular pertussis vaccine Nurse Wstr Work Phone: [facility] 1990 trivalent poliovirus vaccine, live, oral Nurse Wstr Work Phone: [facility] Payers Date Payer Category Payer Unknown [id number] 2024 Unknown [id number] 2024 Self-pay [id number] 2024 Unknown [id number] 2020 Medicaid [employer] [id number] 2020-Present [phone] [address] [place] [address] Medicaid [id number] 2020 Medicaid [id number] [id number] 2015 Unknown [id number] 1990 Unknown [id number] 2.16.840.1.598926.3.579.2 1990 Unknown [id number] 2.16.840.1.390002.3.579.2 1990 Unknown [id number] 2.16.840.1.408483.3.579.2 1990 Unknown [id number] 2.16.840.1.095574.3.579.2 1990 Unknown [id number] 2.16.840.1.482606.3.579.2 1990 Unknown [id number] 2.16.840.1.571680.3.579.2 1990 Unknown [id number] 2.16.840.1.570012.3.579.2 1990 Unknown [id number] 2.16.840.1.803272.3.579.2 1990 Unknown [id number] 2.16.840.1.480731.3.579.2 1990 Unknown [id number] 2.16.840.1.793392.3.579.2.627 1990 Unknown [id number] 2.16.840.1.518301.3.579.2.627 Unknown [id number] Unknown [id number] 2.16.840.1.543988.3.579.2.462 Unknown [id number] 2.16.840.1.324310.3.579.2.462 Unknown [id number] 2.16.840.1.060845.3.579.2.462 Unknown [id number] 2.16.840.1.919786.3.579.2.462 Unknown [id number] 2.16.840.1.256969.3.579.2.462 Unknown [id number] 2..840.1.061500.3.579.2.462 Unknown [id number] 2.16.840.1.158125.3.579.2.462 Unknown [id number] 2.16.840.1.504117.3.579.2.462 Unknown [id number] 2.16.840.1.313612.3.579.2.462 Unknown [id number] 2.16.840.1.234213.3.579.2.462 Unknown [id number] 2.16.840.1.552515.3.579.2.462 Unknown [id number] 2.16.840.1.651614.3.579.2.462 Unknown [id number] 2.16.840.1.312156.3.579.2.462 Unknown [id number] 2.16.840.1.683554.3.579.2.462 Unknown [id number] 2.16.840.1.442897.3.579.2.462 Unknown [id number] 2.16.840.1.282394.3.579.2.462 Unknown [id number] 2.16.840.1.898726.3.579.2.462 Unknown [id number] 2.16.840.1.453331.3.579.2.462 Unknown [id number] 2.16.840.1.749105.3.579.2.462 Unknown [id number] 2.16840.1.720025.3.579.2.462 Unknown [id number] 2.16.840.1.511744.3.579.2.462 Unknown [id number] 2.840.1.268619.3.579.2.462 Unknown [id number] 2.840.1.049323.3.579.2.462 Unknown [id number] 2.840.1.947294.3.579.2.462 Unknown [id number] 2.840.1.347159.3.579.2.462 Unknown [id number] 2.840.1.269240.3.579.2.462 Unknown [id number] 2.840.1.085992.3.579.2.462 Unknown [id number] 2.840.1.060460.3.579.2.462 Unknown [id number] 2.840.1.904286.3.579.2.462 Unknown [id number] 2.840.1.871966.3.579.2.462 Unknown [id number] 2.840.1.221583.3.579.2.462 Unknown [id number] 2.840.1.020827.3.579.2.462 Unknown [id number] 2.840.1.201315.3.579.2.462 Unknown [id number] 2.840.1.972148.3.579.2.462 Unknown [id number] 2.16.840.1.148186.3.579.2.462 Unknown [id number] 2.16.840.1.431671.3.579.2.462 Unknown [id number] 2.16.840.1.184925.3.579.2.462 Unknown [id number] 2.16.840.1.095377.3.579.2.462 Unknown [id number] 2.16.840.1.311628.3.579.2.462 Unknown [id number] 2.16.840.1.784938.3.579.2.462 Unknown [id number] 2.16.840.1.098912.3.579.2.462 Unknown [id number] 2.16.840.1.249599.3.579.2.462 Unknown [id number] 2.16.840.1.417506.3.579.2.462 Unknown [id number] 2.16.840.1.522197.3.579.2.462 Unknown [id number] 2.16.840.1.121063.3.579.2.462 Social History Date Type Detail Facility Start: 05-06-2019 End: 11-09-2024 Heavy tobacco smoker (finding) [facility] Start: 1990 Sex Assigned At Female A [facility] Start: 01-06-2022 End: 06-29-2023 Tobacco smoking status MDIS Smokes tobacco daily [facility] History of tobacco use Cigarette Smoker [facility] Work Phone: Start: 06-01-2021 End: 11-22-2023 Alcohol intake Current drinker of alcohol (finding) [facility] Start: 12-12-2019 History SDOH Alcohol Comment [facility] Start: 08-13-2021 End: 01-04-2022 Exposure to SARS-CoV-2 (event) Not sure [facility] Work Phone: Start: 12-11-2021 End: 08-14-2022 Tobacco smoking status NHIS Unknown if ever smoked [facility] Start: 10-01-2018 Rare [facility] Start: 10-01-2018 Spouse/ Signif icant Other [facility] Start: 01-06-2022 End: 12-08-2022 Cigarettes smoked current (pack per day) - Reported 0.3 [facility] Start: 01-06-2022 End: 06-29-2023 Tobacco use and exposure Smokeless tobacco non-user [facility] Work Phone: Start: 09-05-2022 End: 12-08-2022 Tobacco use panel [facility] National Score (1-100), lower number is lower risk 63 [facility] Start: 11-21-2020 Gender identity Identifies as female gender (finding) [facility] Start: 06-29-2023 Tobacco Comment 3-4 Cigs daily [facility] Start: 05-30-2024 Sexual orientation Heterosexual (fin ding) [facility] Start: 08-19-2024 Tobacco smoking status Light t obacco smoker (finding) [facility] Sexual Orientation [facility] Start: 05-06-2019 Sex Female (finding) [facility] NEGATED: Highlighted row [facility] Medical Equipment Procedure Code Equipment Code Equipment Original Text Equipment Identifier Dates Total cholecystectomy with exploration of common bile duct KITCHEN MECHANIC,CLIP 5MM LIGAMAX FDA Start: 08-22-2019 Total cholecystectomy [...] cholecystectomy with exploration of common bile duct KITCHEN MECHANIC,CLIP 5MM LIGAMAX FDA Start: 08-22-2019 Total cholecystectomy [...] cholecystectomy with exploration of common bile duct KITCHEN MECHANIC,CLIP 5MM LIGAMAX FDA Start: 08-22-2019 Total cholecystectomy with exploration of common bile duct CLIP,PATRICE RICO WEBATSHEVA FDA Start: 08-22-2019 Total cholecystectomy with exploration of common bile duct CLIP,HEMAMANDA RICO WEBATSHEVA FDA Start: 08-22-2019 Total cholecystectomy with exploration of common bile duct CLIP,HEMAMANDA STONERBATSHEVA FDA Start: 08-22-2019 Total cholecystectomy with exploration of common bile duct SURGICEL, POWDER 3GR FDA Start: 08-22-2019 Total cholecystectomy with exploration of common bile duct KITCHEN MECHANIC,CLIP 5MM LIGAMAX FDA Start: 08-22-2019 Total cholecystectomy with exploration of common bile duct CLIP,MARCOBATSHEVA JACKY MARY JANE FDA Start: 08-22-2019 Total cholecystectomy with exploration of common bile duct CLIP,HEMAMANDA RICO MARY JANE FDA Start: 08-22-2019 Total cholecystectomy with exploration of common bile duct CLIP,HEMAMANDA STONERBATSHEVA FDA Start: 08-22-2019 Total cholecystectomy with exploration of common bile duct SURGICEL, POWDER 3GR FDA Start: 08-22-2019 Total cholecystectomy with exploration of common bile duct KITCHEN MECHANIC,CLIP 5MM LIGAMAX FDA Start: 08-22-2019 Total cholecystectomy with exploration of common bile duct CLIP,PATRICE RICO MARY JANE FDA Start: 08-22-2019 Total cholecystectomy with exploration of common bile duct CLIP,HEMAMANDA RICO MARY JANE FDA Start: 08-22-2019 Total cholecystectomy with exploration of common bile duct CLIP,HEMAMANDA RICO WEBATSHEVA FDA Start: 08-22-2019 Total cholecystectomy with exploration of common bile duct SURGICEL, POWDER 3GR FDA Start: 08-22-2019 Total cholecystectomy with exploration of common bile duct KITCHEN MECHANIC,CLIP 5MM LIGAMAX FDA Start: 08-22-2019 Total cholecystectomy with exploration of common bile duct CLIP,PATRICE RICO MARY JANE FDA Start: 08-22-2019 Total cholecystectomy with exploration of common bile duct CLIP,PATRICE RICO MARY JANE FDA Start: 08-22-2019 Total cholecystectomy with exploration of common bile duct CLIP,HEMOLOBATSHEVA JACKY WEBATSHEVA FDA Start: 08-22-2019 Total cholecystectomy with exploration of common bile duct SURGICEL, POWDER 3GR FDA Start: 08-22-2019 Total cholecystectomy with exploration of common bile duct KITCHEN MECHANIC,CLIP 5MM LIGAMAX FDA Start: 08-22-2019 Total cholecystectomy with exploration of common bile duct CLIP,MARCOBATSHEVA JACKY MARY JANE FDA Start: 08-22-2019 Total cholecystectomy with exploration of common bile duct CLIP,HEMSLADEBATSHEVA JACKY MARY JANE FDA Start: 08-22-2019 Total cholecystectomy with exploration of common bile duct CLIP,HEMOLOBATSHEVA RICO WEBATSHEVA FDA Start: 08-22-2019 Total cholecystectomy with exploration of common bile duct SURGICEL, POWDER 3GR FDA Start: 08-22-2019 Total cholecystectomy with exploration of common bile duct KITCHEN MECHANIC,CLIP 5MM LIGAMAX FDA Start: 08-22-2019 Total cholecystectomy with exploration of common bile duct CLIP,MARCOBATSHEVA HINTON FDA Start: 08-22-2019 Total cholecystectomy with exploration of common bile duct CLIP,MARCOBATSHEVA HINTON FDA Start: 08-22-2019 Total cholecystectomy with exploration of common bile duct CLIP,HEMSLADEBATSHEVA JACKY MARY JANE FDA Start: 08-22-2019 Total cholecystectomy with exploration of common bile duct SURGICEL, POWDER 3GR FDA Start: 08-22-2019 Total cholecystectomy with exploration of common bile duct KITCHEN MECHANIC,CLIP 5MM LIGAMAX FDA Start: 08-22-2019 Total cholecystectomy with exploration of common bile duct CLIP,PATRICE RICO MARY JANE FDA Start: 08-22-2019 Total cholecystectomy with exploration of common bile duct CLIP,MARCOBATSHEVA JACKY MARY JANE FDA Start: 08-22-2019 Total cholecystectomy with exploration of common bile duct CLIP,HEMOLOBATSHEVA RICO WEBATSHEVA FDA Start: 08-22-2019 Total cholecystectomy with exploration of common bile duct SURGICEL, POWDER 3GR FDA Start: 08-22-2019 Total cholecystectomy with exploration of common bile duct KITCHEN MECHANIC,CLIP 5MM LIGAMAX FDA Start: 08-22-2019 Total cholecystectomy with exploration of common bile duct CLIP,HEMOLOBATSHEVA RICO WEBATSHEVA FDA Start: 08-22-2019 Total cholecystectomy with exploration of common bile duct CLIP,HEMOLOBATSHEVA RICO WEBATSHEVA FDA Start: 08-22-2019 Total cholecystectomy with exploration of common bile duct CLIP,HEMSLADEBATSHEVA JACKY MARY JANE FDA Start: 08-22-2019 Total cholecystectomy with exploration of common bile duct SURGICEL, POWDER 3GR FDA Start: 08-22-2019 Total cholecystectomy with exploration of common bile duct KITCHEN MECHANIC,CLIP 5MM LIGAMAX FDA Start: 08-22-2019 Total cholecystectomy [...] locked, Bedside Cart Locked, Safety level maintained [facility] 11-19-2023 [facility] Functional Status Standard Safet y ID band on, Call device within reach, Bed in low position, Wheels locked [facility] 09-24-2023 Functional Status Standard Safet y ID band on, Allergy Band on, Call device within reach, Bed in low position, Wheels locked, Upper/Half-Length side-rails up, Bedside Cart Locked, Safety level maintained [facility] 09-18-2022 Functional Status Up ad camila [facility]wn [facility] 07-25-2022 Functional Status Standard Safet y ID band on, Allergy Band on, Call device within reach, Bed in low position, Wheels locked, Bedside Cart Locked, Safety level maintained [facility] 07-25-2022 Functional Status [facility] 06-10-2022 Functional Status Room check performed [facility] 01-29-2022 Functional Status ID band on, Allergy Band on, Call device within reach, Bed in low position, Wheels locked, Upper/Half-Length side-rails up, Phone within reach, personal items within reach, Assistive devices within reach, Toileting device within reach, Bedside Cart Locked, Visitor at bedside, Safety level maintained [facility] 12-07-2021 Functional Status ID band on, Allergy Band on, Call device within reach, Bed in low position, Wheels locked, Upper/Half-Length side-rails up, Phone within reach, personal items within reach [facility] 11-20-2021 Functional Status ID band on, Call device within reach, Bed in low position, Wheels locked, Upper/Half-Length side-rails up, Phone within reach, personal items within reach, Assistive devices within reach, Toileting device within reach, Bedside Cart Locked, Visitor at bedside, Safety level maintained [facility] 10-10-2021 Functional Status Resting [facility] 09-05-2021 Functional Status [facility] Mental Status Date Assessment Result Facility 08-31-2024 Mental Status Oriented x 4 [facility] 11-19-2023 Mental Status Orientation Oriented x 4 [facility] 11-19-2023 Mental Status [facility] 09-18-2022 Mental Status Orientation Oriented x 4 [facility] 08-14-2022 Cognitive function Level Of Cons ciousness Awake;Alert;Appropriate [facility] Work Phone: 07-25-2022 Mental Status Orientation Oriented x 4 [facility] 06-10-2022 Cognitive function Level Of Cons ciousness Awake;Alert;Appropriate;Follow s Commands [facility] Work Phone: 06-10-2022 Mental Status Oriented x 4 [facility] 05-06-2022 Cognitive function Level Of Cons ciousness Awake;Alert;Appropriate;Follow s Commands;Responds to vocal stimuli [facility] Work Phone: 04-21-2022 Cognitive function Level Of Cons ciousness Awake;Alert;Follows Commands [facility] Work Phone: 03-01-2022 Cognitive function Level Of Cons ciousness Awake;Alert;Appropriate;Follow s Commands [facility] Work Phone: 01-29-2022 Mental Status Oriented x 4 [facility] 12-07-2021 Mental Status Oriented x 4 [facility] 11-20-2021 Mental Status Oriented x 4 [facility] 10-10-2021 Mental Status Orientation Oriented x 4 [facility] 09-05-2021 Mental Status [facility] Clinical Notes 06-25-2021 to 02-18-2025 Note Date & Type Note Facility 02-18-2025 Note [facility] 02-01-2025 Hospital Discharge instructions Patient Education 02/01/2025 09:32:44 R.I.C.E. RICE RICE stands for rest, ice, compression, and elevation. Doing these things helps limit pain and swelling after an injury. RICE also helps injuries heal faster. Use RICE for sprains, strains, and severe bruises or bumps. Follow the tips on this handout and begin RICE as soon as possible after an injury. Rest Pain is your body s way of telling you to rest an injured area. Whether you have hurt an elbow, hand, foot, or knee, limiting its use will prevent further injury and help you heal. Ice Applying ice right after an injury helps prevent swelling and reduce pain. Don t place ice directly on your skin. Wrap a cold pack or bag of ice in a thin cloth. Place it over the injured area. Ice for 10 minutes every 3 hours. Don t ice for more than 20 minutes at a time. Compression Putting pressure (compression) on an injury helps prevent swelling and provides support. Wrap the injured area firmly with an elastic bandage. If your hand or foot tingles, becomes discolored, or feels cold to the touch, the bandage may be too tight. Rewrap it more loosely. If your bandage becomes too loose, rewrap it. Do not wear an elastic bandage overnight. Elevation Keeping an injury elevated helps reduce swelling, pain, and throbbing. Elevation is most effective when the injury is kept elevated higher than the heart. Call your healthcare provider if you notice any of the following: Fingers or toes feel numb, are cold to the touch, or change color. Skin looks shiny or tight. Pain, swelling, or bruising worsens and is not improved with elevation. [id number] [employer]. [address] [place] [address]95. All rights reserved. This information is not intended as a substitute for professional medical care. Always follow your healthcare professional's instructions. 02/01/2025 09:32:29 When Your Child Has a Strain, Sprain, or Contusion When Your Child Has a Strain, Sprain, or Contusion Strains, sprains, and contusions are common injuries in active children. These injuries are similar, but involve different types of body tissue. Most of these injuries happen during sports or active play. But they can happen at any time. A strain, sprain, or contusion can be painful. With the right treatment, most heal with no lasting problems. What is a strain? A strain is an injury to a muscle or to a tendon (tissue that connects muscle to bone). It is sometimes called a pulled muscle. A strain happens when a muscle or tendon is stretched too far or is partially torn. Symptoms of a strain are pain, swelling, and having a problem moving or using the injured area. The hamstring (thigh muscle), calf muscle, and Achilles tendon are commonly strained. What is a sprain? A sprain is an injury to a ligament (tissue that connects bones to other bones). Joints contain many ligaments. A sprain results when a joint is twisted or pulled and the ligament stretches or tears. Symptoms of a sprain are pain, swelling, and having a problem moving or using the injured area. Ankles, knees, and wrists are the joints most commonly sprained. What is a contusion? A contusion is commonly called a bruise. It is injury to tissue that causes bleeding without breaking the skin. It is often a result of being hit by a blunt object, such as a ball or bat. Symptoms of a contusion are discoloration of the skin, pain (which can be severe), and swelling. Contusions usually aren t serious and usually don t need medical attention. But a large, painful, or very swollen bruise, or a bruise that limits movement of a joint such as the knee, should be seen by a healthcare provider. How are strains, sprains, and contusions diagnosed? The healthcare provider asks about your child s symptoms and medical history. An exam is also done. An X-ray (test that creates images of bones) may be done to rule out broken bones. How are strains, sprains, and contusions treated? Strains and sprains can take up to months to heal. If not treated and allowed to heal, a strain or sprain can lead to long-term problems. These include lasting pain and stiffness. So it is important to follow the healthcare provider s instructions. The pain of a contusion often goes away within the first week or two. But the swelling and discoloration may take weeks to go away. Treatment consists of one or more of the following: RICE. This stands for Rest, Ice, Compression, and Elevation oRest. As much as possible, your child should not use the injured area. In some cases, your child may be given a brace or sling to keep an injured joint still. Your child may also be given crutches to keep some weight off a strain to the leg or a sprain to the ankle or knee. oIce. Put ice on the injured area 3 to 4 times a day for 20 minutes at a time. To make an ice pack, put ice cubes in a plastic bag that seals at the top. Wrap the bag in a clean, thin towel or cloth. Never put ice directly on the skin. oCompression. If instructed, wrap the area to keep swelling down. Use an elastic bandage. Do this as instructed by your child s healthcare provider. oElevation. Have your child raise the injured body part above the level of the heart. Medicines to relieve inflammation and pain. These will likely be NSAIDs (nonsteroidal anti-inflammatory drugs). NSAIDs include ibuprofen and naproxen. Give these medicines to your child only as directed by your child s healthcare provider. Physical therapy (PT). This is done to strengthen the injured area. This is especially helpful for moderate to severe strains or sprains. Cast. Casting the affected area is done to keep it still and let the strain or sprain heal. Surgery. This may be needed if the strain or sprain is severe and there is tearing. During surgery, the torn muscle, tendon, or ligament is repaired. What are the long-term concerns? If allowed to heal, most strains, sprains, and contusions cause no further problems. Strains or sprains that are not treated and don t heal correctly can lead to pain or stiffness that doesn t go away. Be sure to follow your child s treatment plan. Your child s healthcare provider can tell you more about the expected outcome based on your child s injury. Preventing strains, sprains, and contusions If playing sports or doing other athletic activity, be sure your child: Has proper training. Wears protective gear. Warms up before activity and cools down afterward. Uses proper equipment. Doesn t play when he or she has an injury. 3046-3671 [employer]. [address] [place] [address], [place] [id number]. All rights reserved. This information is not intended as a substitute for professional medical care. Always follow your healthcare professional's instructions. 02/01/2025 09:32:28 Hand Contusion Hand Contusion You have a contusion. This is also called a bruise. There is swelling and some bleeding under the skin, but no broken bones. This injury generally takes a few days to a few weeks to heal. During that time, the bruise will typically change in color from reddish, to purple-blue, to greenish-yellow, then to yellow-brown. Home care Elevate the hand to reduce pain and swelling. As much as possible, sit or lie down with the hand raised about the level of your heart. This is especially important during the first 48 hours. Ice the hand to help reduce pain and swelling. Wrap a cold source (ice pack or ice cubes in a plastic bag) in a thin towel. Apply to the bruised area for 20 minutes every 1 to 2 hours the first day. Continue this 3 to 4 times a day until the pain and swelling goes away. Unless another medicine was prescribed, you can take acetaminophen, ibuprofen, or naproxen to control pain. (If you have chronic liver or kidney disease or ever had a stomach ulcer or gastrointestinal bleeding, talk with your doctor before using these medicines.) Follow up Follow up with your healthcare provider or our staff as advised. Call if you are not improving within 1 to 2 weeks. When to seek medical advice Call your healthcare provider right away if you have any of the following: Increased pain or swelling Arm becomes cold, blue, numb or tingly Signs of infection: Warmth, drainage, or increased redness or pain around the bruise Inability to move the injured hand Frequent bruising for unknown reasons [id number] [employer]. [address] [place] [address]. All rights reserved. This information is not intended as a substitute for professional medical care. Always follow your healthcare professional's instructions. Follow Up Care 02/01/2025 08:39:29 With:ROSA KEMP MD Address: [facility] [place] [address] [phone] When:2-4 days [facility] 02-01-2025 Note Discharge Instructions Thank you for allowing [facility] to assist you with your healthcare needs. The following is important discharge information regarding your hospital visit. Diagnosis from Today's Visit Contusion of right hand What to Do Next Instructions from Your Care Team Take your 600 mg ibuprofen at home for pain. RICE therapy. Discharge Home Equipment - Ordered -- Splint, boxer Right, 99 month(s), 02/01/25 9:31:00 EDT Post Acute Orders No qualifying data available. You Need to Schedule the Following Appointments Follow Up with ROSA KEMP MD When:Within 2-4 days Where:[facility] [place] [address]- [phone] Allergies naproxen Nausea zinc oxide topical Medications Please ask your primary doctor or [...] medication providers or retail pharmacies. Education Materials RICE RICE stands for rest, ice, compression, and elevation. Doing these things helps limit pain and swelling after an injury. RICE also helps injuries heal faster. Use RICE for sprains, strains, and severe bruises or bumps. Follow the tips on this handout and begin RICE as soon as possible after an injury. Rest Pain is your body s way of telling you to rest an injured area. Whether you have hurt an elbow, hand, foot, or knee, limiting its use will prevent further injury and help you heal. Ice Applying ice right after an injury helps prevent swelling and reduce pain. Don t place ice directly on your skin. Wrap a cold pack or bag of ice in a thin cloth. Place it over the injured area. Ice for 10 minutes every 3 hours. Don t ice for more than 20 minutes at a time. Compression Putting pressure (compression) on an injury helps prevent swelling and provides support. Wrap the injured area firmly with an elastic bandage. If your hand or foot tingles, becomes discolored, or feels cold to the touch, the bandage may be too tight. Rewrap it more loosely. If your bandage becomes too loose, rewrap it. Do not wear an elastic bandage overnight. Elevation Keeping an injury elevated helps reduce swelling, pain, and throbbing. Elevation is most effective when the injury is kept elevated higher than the heart. Call your healthcare provider if you notice any of the following: Fingers or toes feel numb, are cold to the touch, or change color. Skin looks shiny or tight. Pain, swelling, or bruising worsens and is not improved with elevation. [id number] [employer]. [address] [place] [address]. All rights reserved. This information is not intended as a substitute for professional medical care. Always follow your healthcare professional's instructions. When Your Child Has a Strain, Sprain, or Contusion Strains, sprains, and contusions are common injuries in active children. These injuries are similar, but involve different types of body tissue. Most of these injuries happen during sports or active play. But they can happen at any time. A strain, sprain, or contusion can be painful. With the right treatment, most heal with no lasting problems. What is a strain? A strain is an injury to a muscle or to a tendon (tissue that connects muscle to bone). It is sometimes called a pulled muscle. A strain happens when a muscle or tendon is stretched too far or is partially torn. Symptoms of a strain are pain, swelling, and having a problem moving or using the injured area. The hamstring (thigh muscle), calf muscle, and Achilles tendon are commonly strained. What is a sprain? A sprain is an injury to a ligament (tissue that connects bones to other bones). Joints contain many ligaments. A sprain results when a joint is twisted or pulled and the ligament stretches or tears. Symptoms of a sprain are pain, swelling, and having a problem moving or using the injured area. Ankles, knees, and wrists are the joints most commonly sprained. What is a contusion? A contusion is commonly called a bruise. It is injury to tissue that causes bleeding without breaking the skin. It is often a result of being hit by a blunt object, such as a ball or bat. Symptoms of a contusion are discoloration of the skin, pain (which can be severe), and swelling. Contusions usually aren t serious and usually don t need medical attention. But a large, painful, or very swollen bruise, or a bruise that limits movement of a joint such as the knee, should be seen by a healthcare provider. How are strains, sprains, and contusions diagnosed? The healthcare provider asks about your child s symptoms and medical history. An exam is also done. An X-ray (test that creates images of bones) may be done to rule out broken bones. How are strains, sprains, and contusions treated? Strains and sprains can take up to months to heal. If not treated and allowed to heal, a strain or sprain can lead to long-term problems. These include lasting pain and stiffness. So it is important to follow the healthcare provider s instructions. The pain of a contusion often goes away within the first week or two. But the swelling and discoloration may take weeks to go away. Treatment consists of one or more of the following: RICE. This stands for Rest, Ice, Compression, and Elevation oRest. As much as possible, your child should not use the injured area. In some cases, your child may be given a brace or sling to keep an injured joint still. Your child may also be given crutches to keep some weight off a strain to the leg or a sprain to the ankle or knee. oIce. Put ice on the injured area 3 to 4 times a day for 20 minutes at a time. To make an ice pack, put ice cubes in a plastic bag that seals at the top. Wrap the bag in a clean, thin towel or cloth. Never put ice directly on the skin. oCompression. If instructed, wrap the area to keep swelling down. Use an elastic bandage. Do this as instructed by your child s healthcare provider. oElevation. Have your child raise the injured body part above the level of the heart. Medicines to relieve inflammation and pain. These will likely be NSAIDs (nonsteroidal anti-inflammatory drugs). NSAIDs include ibuprofen and naproxen. Give these medicines to your child only as directed by your child s healthcare provider. Physical therapy (PT). This is done to strengthen the injured area. This is especially helpful for moderate to severe strains or sprains. Cast. Casting the affected area is done to keep it still and let the strain or sprain heal. Surgery. This may be needed if the strain or sprain is severe and there is tearing. During surgery, the torn muscle, tendon, or ligament is repaired. What are the long-term concerns? If allowed to heal, most strains, sprains, and contusions cause no further problems. Strains or sprains that are not treated and don t heal correctly can lead to pain or stiffness that doesn t go away. Be sure to follow your child s treatment plan. Your child s healthcare provider can tell you more about the expected outcome based on your child s injury. Preventing strains, sprains, and contusions If playing sports or doing other athletic activity, be sure your child: Has proper training. Wears protective gear. Warms up before activity and cools down afterward. Uses proper equipment. Doesn t play when he or she has an injury. [employer]. [address] [place] [address]. All rights reserved. This information is not intended as a substitute for professional medical care. Always follow your healthcare professional's instructions. Hand Contusion You have a contusion. This is also called a bruise. There is swelling and some bleeding under the skin, but no broken bones. This injury generally takes a few days to a few weeks to heal. During that time, the bruise will typically change in color from reddish, to purple-blue, to greenish-yellow, then to yellow-brown. Home care Elevate the hand to reduce pain and swelling. As much as possible, sit or lie down with the hand raised about the level of your heart. This is especially important during the first 48 hours. Ice the hand to help reduce pain and swelling. Wrap a cold source (ice pack or ice cubes in a plastic bag) in a thin towel. Apply to the bruised area for 20 minutes every 1 to 2 hours the first day. Continue this 3 to 4 times a day until the pain and swelling goes away. Unless another medicine was prescribed, you can take acetaminophen, ibuprofen, or naproxen to control pain. (If you have chronic liver or kidney disease or ever had a stomach ulcer or gastrointestinal bleeding, talk with your doctor before using these medicines.) Follow up Follow up with your healthcare provider or our staff as advised. Call if you are not improving within 1 to 2 weeks. When to seek medical advice Call your healthcare provider right away if you have any of the following: Increased pain or swelling Arm becomes cold, blue, numb or tingly Signs of infection: Warmth, drainage, or increased redness or pain around the bruise Inability to move the injured hand Frequent bruising for unknown reasons [employer]. [address] [place] [address]. All rights reserved. This information is not intended as a substitute for professional medical care. Always follow your healthcare professional's instructions. Additional Information VACCINATE! IT SAVES LIVES! Members of the community who have not yet received the COVID-19 vaccine and would like to receive it can visit one of [facility] vaccine clinics. There are many vaccine clinic locations within the [facility]. For locations and available times, please visit [email or web address] [email or web address] It is important to note that some COVID mobile vaccine clinics are held outdoors and may be canceled in rainy or stormy conditions. To learn more about pediatric vaccinations (ages 5-11), we invite you to visit the [facility] webpage. https://[email or web address].org/p ages/4326-Krqde-Bgpaatqggyu-Freq jituet-Dmtbl-Nmkvtsbhn.html To learn more about the COVID-19 vaccine, we invite you to visit the CDC website for a list of frequently asked questions. https://www.cdc.gov/coronavirus/ 2019-ncov/vaccines/faq.html [facility] Patient Portal Access Instructions: Stay connected with your healthcare team and access your personal medical information anytime with the [facility] Patient Portal. If you would like a full copy of your medical records please contact the [facility] Medical Records Department Sunday through Sunday between 8a.m. and 4:30p.m. Please follow the directions below to access the portal: 1.Access the email account you provided upon registration to the hospital.2.Look for an invitation email from [facility].3.Open the email and access the invitation link: Accept Invitation to [facility].Fill in the required arteaga to create your account. To access your account, visit [employer] or scan the QR code above. Click the blue button labeled Access Patient Portal and then log in with the username and password that you created in the steps above. You can then view a summary of results, a summary of your visits, and the ability to download your summaries to your computer or send the information securely to a physician. Remember that your healthcare information is confidential, so carefully consider who you will allow to register on the [facility] Patient Portal for access to your information. You can also access the [facility] Patient Portal on the [employer]. Simply click on Health Records under Health Data and then click on the [employer]Light logo. HOW TO SAFELY DISPOSE OF PRESCRIPTION [...] Call your local pharmacy or go to [email or web address] [email or web address] to find one close to you.3.Make use of household items: Use cat litter or old coffee grounds to dispose medications if other options are not available. Mix your drugs with these household products, seal them in an airtight container and throw it into the garbage. Call [facility]: [phone] to be sure your drugs can be [...] a CHART COPY Signatures Patient Education Materials R.I.C.E. When Your Child Has a Strain, Sprain, or Contusion Hand Contusion Medication Leaflets My discharge plan and instructions have been reviewed and explained to me and I,SANDIE BECERRIL understand my current condition and have read and understand these discharge instructions. I have received a written copy of the plan/instructions. If I have questions, I am aware that I should contact my doctor. Patient/Study Specialist Signature: Date/Time: Relationship to Patient: Witness Name/Signature: Date/Time: [facility] 02-01-2025 Note Exam Date Time Procedure Performing Provider Status 02/01/25 9:15 AM XR Hand Minimum 3 Views Right CHERELLE ENCARNACION DO; Auth (Verified) [id number] ORIGINAL EXAMINATION: THREE XRAY VIEWS OF THE RIGHT HAND02/01/2025 9:15 am COMPARISON: None HISTORY: ORDERING SYSTEM PROVIDED HISTORY: Reason for Exam: fifth metacarpal pain and swelling FINDINGS: There is no acute fracture or dislocation. There is no significant soft tissue swelling. There is no radiopaque foreign body. The articulations are intact. IMPRESSION: No acute fracture or dislocation. Interpreted by: Chreelle Encarnacion DO Preliminary Report By: Cherelle Encarnacion DO Electronically signed By Cherelle Encarnacion DO Dictated Date: 02/01/2025 9:22:19 AM Prelim Date: 02/01/2025 9:23:31 AM Sign Date: 02/01/2025 9:23:31 AM Ordering Provider: ELTON NAQVI [facility]09-03-2025 Hospital Discharge instructions Patient Education 01/07/2025 07:24:43 Ganglion Cyst: Hand Ganglion Cyst: Hand A ganglion cyst is a firm, fluid-filled lump that can suddenly appear on the front or back of the wrist or at the base of a finger. These cysts grow from normal tissue in the wrist and fingers, and range in size from a pea to a peach pit. Although ganglion cysts are common, they don t spread, and they don t become cancerous. They can occur after an injury, but many times it isn t known why they grow. Ganglion cysts can change in size, and may go away on their own. What are the symptoms of a ganglion cyst? A ganglion cyst is sometimes painful, especially when it first occurs. Constantly using your hand or wrist can make the cyst enlarge and hurt more. Some hand and wrist movements, such as grasping things, may also be difficult. How does a ganglion cyst develop? Your wrist and hand are made up of many small bones that meet at joints. Tendons attach muscles to the bones at the joints. The tendons allow the joints to bend and straighten. Both tendons and joints are lined with tissue called synovium. This tissue makes a thick fluid that keeps the joints and tendons moving easily. Sometimes the tissue balloons out from the joint or tendons and forms a cyst. As the cyst fills with fluid and grows, it appears as a lump you can feel. Where do ganglion cysts occur? A ganglion cyst can occur anywhere on the hand near a joint. Cysts most commonly appear on the backor palm side of the wrist, or on the palm at the base of a finger. Your doctor can usually diagnosea cyst by examining the lump. He or she may draw off a little fluid or order an X-ray to rule out other problems. How is a ganglion cyst treated? Your healthcare provider may just watch your ganglion cyst. Many shrink and become painless withouttreatment. Some disappear altogether. If the cyst is unsightly or painful, or makes it hard for youto use your hand, your healthcare provider can treat it or, if needed, remove it surgically. Nonsurgical treatment To shrink the cyst, your provider may remove (aspirate) the fluid with a needle. If the cyst hurts,your provider may also give you an injection of an anti- inflammatory, such as cortisone, to relievethe irritation. Your hand may then be wrapped to help keep the cyst from recurring. Surgery If the cyst reappears after treatment, your healthcare provider may remove it surgically. A sectionof the tissue that lines the joint or tendon is removed along with the cyst. This helps prevent another cyst from forming, although recurrence of the cyst is still possible after surgery. Usually, only your hand or arm is numbed, and you can go home a few hours after surgery. Your hand may be in a splint for several days. 9222-2920 [employer]. [address] [place] [address]. All rights reserved. This information is not intended as a substitute for professional medical care. Always follow yourhealthcare professional's instructions. Follow Up Care 01/07/2025 07:06:24 With:HENYR VIZCARRA MD Address: [address] [place] [address] [employer] [facility] [place] [address]- [phone] When:2-4 days [facility] 09-03-2025 Note Discharge Instructions Thank you for allowing [facility] to assist you with your healthcare needs. The following is importantdischarge information regarding your hospital visit. Diagnosis from Today's Visit Other bursal cyst of wrist What to Do Next Instructions from Your Care Team No qualifying data available. Post Acute Orders No qualifying data available. You Need to Schedule the Following Appointments Follow Up with HENRY VIZCARRA MD When:Within 2-4 days Where:[address] [place] [address] [employer] [facility] [place] [address]- [phone] Allergies naproxen Nausea Medications Please ask your [...] medication providers or retail pharmacies. Education Materials Ganglion Cyst: Hand A ganglion cyst is a firm, fluid-filled lump that can suddenly appear on the front or back of the wrist or at the base of a finger. These cysts grow from normal tissue in the wrist and fingers, and range in size from a pea to a peach pit. Although ganglion cysts are common, they don t spread, and they don t become cancerous. They can occur after an injury, but many times it isn t known why they grow. Ganglion cysts can change in size, and may go away on their own. What are the symptoms of a ganglion cyst? A ganglion cyst is sometimes painful, especially when it first occurs. Constantly using your hand or wrist can make the cyst enlarge and hurt more. Some hand and wrist movements, such as grasping things, may also be difficult. How does a ganglion cyst develop? Your wrist and hand are made up of many small bones that meet at joints. Tendons attach muscles to the bones at the joints. The tendons allow the joints to bend and straighten. Both tendons and joints are lined with tissue called synovium. This tissue makes a thick fluid that keeps the joints and tendons moving easily. Sometimes the tissue balloons out from the joint or tendons and forms a cyst. As the cyst fills with fluid and grows, it appears as a lump you can feel. Where do ganglion cysts occur? A ganglion cyst can occur anywhere on the hand near a joint. Cysts most commonly appear on the backor palm side of the wrist, or on the palm at the base of a finger. Your doctor can usually diagnosea cyst by examining the lump. He or she may draw off a little fluid or order an X-ray to rule out other problems. How is a ganglion cyst treated? Your healthcare provider may just watch your ganglion cyst. Many shrink and become painless withouttreatment. Some disappear altogether. If the cyst is unsightly or painful, or makes it hard for youto use your hand, your healthcare provider can treat it or, if needed, remove it surgically. Nonsurgical treatment To shrink the cyst, your provider may remove (aspirate) the fluid with a needle. If the cyst hurts,your provider may also give you an injection of an anti- inflammatory, such as cortisone, to relievethe irritation. Your hand may then be wrapped to help keep the cyst from recurring. Surgery If the cyst reappears after treatment, your healthcare provider may remove it surgically. A sectionof the tissue that lines the joint or tendon is removed along with the cyst. This helps prevent another cyst from forming, although recurrence of the cyst is still possible after surgery. Usually, only your hand or arm is numbed, and you can go home a few hours after surgery. Your hand may be in a splint for several days. 5823-6947 [employer]. [address] [place] [address]. All rights reserved. This information is not intended as a substitute for professional medical care. Always follow yourhealthcare professional's instructions. Additional Information VACCINATE! IT SAVES LIVES! Members of the community who have not yet received the COVID-19 vaccine and would like to receive it can visit one of [facility] vaccine clinics. There are many vaccine clinic locations within the [facility]. For locations and available times, please visit www.gettheshot.coronavirus.[place].gov/. It is important to note that some COVID mobile vaccine clinics are held outdoors and may be canceled in rainy or stormy conditions. To learn more about pediatric vaccinations (ages 5-11), we invite you to visit the [facility] webpage. https://www.[facility].org/pages/0738-Rudui-Egmjsofprci-Fiakfuryyy-Bicqb-Qav stions.htmlTo learn more about the COVID-19 vaccine, we invite you to visit the CDC website for a list of frequently asked questions. https://www.cdc.gov/coronavirus/2019-ncov/vaccines/faq.html [facility] Patient Portal Access Instructions: Stay connected with your healthcare team and access your personal medical information anytime with the [facility] Patient Portal. If you would like a full copy of your medical records please contact the [facility] Medical Records Department Sunday through Sunday between 8a.m. and 4:30p.m. Please follow the directions below to access the portal: 1.Access the email account you provided upon registration to the [facility].2.Look for an invitation email from [facility].3.Open the email and access the invitation link: Accept Invitation to [facility]4.Fill in the required arteaga to create your account. Sign into www.VeriWave with your username and password that you [...] you will allow to register on the [facility] Patient Portal for access to your information. You can also access the [facility] Patient Portal on the [employer] international nat. Simply click on Health Records under HealthData and then click on the GreenLight logo. HOW TO SAFELY DISPOSE OF PRESCRIPTION [...] Call your local pharmacy or go to http://bit.10-20 Media/8C6Pi1i to find one close to you.3.Make use of household items: Use cat litter or old coffee grounds to dispose medications if other options arenot available. Mix your drugs with these household products, seal them in an airtight container andthrow it into the garbage. Call [facility]: [phone] to be sure your drugs can be [...] a CHART COPY Signatures Patient Education Materials Ganglion Cyst: Hand Medication Leaflets My discharge plan and instructions have been reviewed and explained to me and IROBERT KARA L understand my current condition and have read and understand these discharge instructions. I have received a written copy of the plan/instructions. If I have questions, I am aware that I should contact my doctor. Patient/Study Specialist Signature: Date/Time: Relationship to Patient: Witness Name/Signature: Date/Time: [facility] [id number] Hospital Discharge instructions Patient Education 11/10/2024 21:29:13 Leg Swelling [...] insufficiency or varicose veins, don't sit or senior structural engineer one place for long periods of [...] or use an increased number of pillows 2496-4612 [employer]. [address] [place] [address]. All rights reserved. This information is not intended as a substitute for professional medical care. Always follow yourhealthcare professional's instructions. Follow Up Care 11/10/2024 16:46:08 With:ROSA KEMP MD Address: [address] [place] [phone]- [phone] When:2-4 days [facility] 07-07-2025 Note Discharge Instructions Thank you for allowing [facility] to assist you with your healthcare needs. [...] with ROSA KEMP MD When:Within 2-4 days Where:[address] [place] [address]- [phone] Allergies naproxen Nausea Medications Please ask your [...] insufficiency or varicose veins, don't sit or senior structural engineer one place for long periods of [...] or use an increased number of pillows 4917-7055 [employer]. [address] [place] [address]. All rights reserved. This information is not intended as a substitute for professional medical care. Always follow yourhealthcare professional's instructions. Additional Information VACCINATE! IT SAVES LIVES! Members of the community who have not yet received the COVID-19 vaccine and would like to receive it can visit one of [facility] vaccine clinics. There are many vaccine clinic locations within the [facility]. For locations and available times, please visit www.gettheshot.coronavirus.[place].gov/. It is important to note that some COVID mobile vaccine clinics are held outdoors and may be canceled in rainy or stormy conditions. To learn more about pediatric vaccinations (ages 5-11), we invite you to visit the [facility] webpage. https://www.[facility].org/pages/5078-Oatdh-Lgtjdelofrt-Ndjhtlguwj-Hegck-Boe stions.htmlTo learn more about the COVID-19 vaccine, we invite you to visit the CDC website for a list of frequently asked questions. https://www.cdc.gov/coronavirus/2019-ncov/vaccines/faq.html [facility] Patient Portal Access Instructions: Stay connected with your healthcare team and access your personal medical information anytime with the [facility] Patient Portal. If you would like a full copy of your medical records please contact the [facility] Medical Records Department Sunday through Sunday between 8a.m. and 4:30p.m. Please follow the directions below to access the portal: 1.Access the email account you provided upon registration to the [facility].2.Look for an invitation email from [facility].3.Open the email and access the invitation link: Accept Invitation to [facility]4.Fill in the required arteaga to create your account. Sign into www.VeriWave with your username and password that you [...] you will allow to register on the [facility] Patient Portal for access to your information. You can also access the [facility] Patient Portal on the iSites. Simply click on Health Records under [employer] and then click on the GreenLight logo. HOW TO SAFELY DISPOSE OF PRESCRIPTION [...] Call your local pharmacy or go to http://Sterecycle.10-20 Media/3A1Be8d to find one close to you.3.Make use of household items: Use cat litter or old coffee grounds to dispose medications if other options arenot available. Mix your drugs with these household products, seal them in an airtight container andthrow it into the garbage. Call [facility]: [phone] to be sure your drugs can be [...] aware that I should contact my doctor. Patient/Study Specialist Signature: Date/Time: Relationship to Patient: Witness Name/Signature: Date/Time: [facility]07-07-2025 Note* Exam Date Time Procedure Performing Provider Status 11/10/24 7:20 PM EKG [ED AOH] - CV JADE TOMLIN MD; Aut h (Verified) ECG Final Report Sinus rhythm Baseline wander in lead(s) V4,V5,V6 Electronic Signature: JADE TOMLIN MD 11/10/2024 20:08:35 [facility]07-07-2025 Note* Exam Date Time Procedure Performing Provider Status 11/10/24 6:39 PM XR Chest 1 View ZEE DICKSON DO; Aut h (Verified) [id number] ORIGINAL EXAMINATION: ONE XRAY VIEW OF THE [...] 11/10/2024 8:10:16 PM Ordering Provider: SHELBIE TAFOYA [facility]07-06-2025 Hospital Discharge instructions Patient Education 11/09/2024 19:01:02 [...] insufficiency or varicose veins, don't sit or senior structural engineer one place for long periods of [...] or use an increased number of pillows 2862-1065 [employer]. [address] [place] [address]. All rights reserved. This information is not intended as a substitute for professional medical care. Always follow yourhealthcare professional's instructions. Follow Up Care 11/09/2024 17:47:02 With:ROSA KEMP MD Address: [facility] [place] [address] [phone] When:2-4 days [facility] 07-06-2025 Emergency department Discharge summary Discharge Instructions Thank you for allowing [facility] to assist you with your healthcare needs. The following is importantdischarge information regarding your hospital visit. Diagnosis from Today's Visit Leg swelling What to Do Next Instructions from Your Care Team No qualifying data available. Post Acute Orders No qualifying data available. You Need to Schedule the Following Appointments Follow Up with ROSA KEMP MD When:Within 2-4 days Where:[facility] [place] [address] [phone] Allergies naproxen Nausea Medications Please ask your primary doctor or pharmacist before taking any other medication not listed, including over the counter drugs, herbal medications, vitamins and or supplements as they may interact withur home medications. What How Much When Instructions [...] insufficiency or varicose veins, don't sit or senior structural engineer one place for long periods of [...] or use an increased number of pillows 7940-8069 [employer]. [address] [place] [address], [place] [address]. All rights reserved. This information is not intended as a substitute for professional medical care. Always follow yourhealthcare professional's instructions. Additional Information VACCINATE! IT SAVES LIVES! Members of the community who have not yet received the COVID-19 vaccine and would like to receive it can visit one of [facility] vaccine clinics. There are many vaccine clinic locations within the [facility]. For locations and available times, please visit www.gettheshot.coronavirus.[place].gov/. It is important to note that some COVID mobile vaccine clinics are held outdoors and may be canceled in rainy or stormy conditions. To learn more about pediatric vaccinations (ages 5-11), we invite you to visit the [facility] webpage. https://www.[facility].org/pages/6071-Ydlga-Jzvwxedvlsh-Penscfdxjz-Ahqba-Jqx stions.htmlTo learn more about the COVID-19 vaccine, we invite you to visit the CDC website for a list of frequently asked questions. https://www.cdc.gov/coronavirus/2019-ncov/vaccines/faq.html [facility] [employer] Patient Portal Access Instructions: Stay connected with your healthcare team and access your personal medical information anytime with the [facility] Patient Portal. If you would like a full copy of your medical records please contact the [facility] Medical Records Department Sunday through Sunday between 8a.m. and 4:30p.m. Please follow the directions below to access the portal: 1.Access the email account you provided upon registration to the [facility].2.Look for an invitation email from [facility].3.Open the email and access the invitation link: [facility]4.Fill in the required arteaga to create your account. Sign into www.VeriWave with your username and password that you [...] you will allow to register on the [facility] Patient Portal for access to your information. You can also access the [facility] Patient Portal on the [employer] international nat. Simply click on Health Records under [employer] Estimate[employer] and then click on the [facility] logo. [...] Call your local pharmacy or go to http://Sterecycle.10-20 Media/8O1Tg7e to find one close to you.3.Make use of household items: Use cat litter or old coffee grounds to dispose medications if other options arenot available. Mix your drugs with these household products, seal them in an airtight container andthrow it into the garbage. Call [facility]: [phone] to be sure your drugs can be [...] aware that I should contact my doctor. Patient/Study Specialist Signature: Date/Time: Relationship to Patient: Witness Name/Signature: Date/Time: [facility]07-06-2025 Note* Exam Date Time Procedure Performing Provider Status 11/09/24 6:32 PM XR Chest 1 View JOE MARCELO MD; Au th (Verified) [id number] ORIGINAL EXAMINATION: ONE XRAY VIEW OF THE [...] 11/09/2024 6:51:33 PM Ordering Provider: SHEYLA ROSAS [facility]07-06-2025 Note* Exam Date Time Procedure Performing Provider Status 11/09/24 6:15 PM EKG [ED AO] - CV SHEYLA ROSAS DO; Auth (Verified) ECG Final Report Sinus rhythm Probable left atrial enlargement Low voltage, precordial leads Compared to ECG at 05/06/2019 22:20:58 BORDERLINE ECG Electronic Signature: SHEYLA ROSAS DO 11/09/2024 18:35:50 [facility]06-08-2025 Hospital Discharge instructions Patient Education 10/12/2024 14:46:23 [...] lost, tell your healthcare provider right away. 3939-2079 [employer]. [address] [place] [address]. All rights reserved. This information is not intended as a substitute for professional medical care. Always follow yourhealthcare professional's instructions. Follow Up Care 10/12/2024 14:26:12 With:ROSA KEMP MD Address: [address] [place] [phone]- [phone] When:2-4 days [facility] 06-08-2025 Note Discharge Instructions Thank you for allowing [facility] to assist you with your healthcare needs. The following is importantdischarge information regarding your hospital visit. Diagnosis from Today's Visit Left ankle pain What to Do Next Instructions from Your Care Team No qualifying data available. Post Acute Orders No qualifying data available. You Need to Schedule the Following Appointments Follow Up with ROSA KEMP MD When:Within 2-4 days Where:[address] [place] [address] [phone] Allergies naproxen Nausea Medications Please ask your [...] lost, tell your healthcare provider right away. 2808-4176 [employer]. [address] [place] [address], [place] [address]. All rights reserved. This information is not intended as a substitute for professional medical care. Always follow yourhealthcare professional's instructions. Additional Information VACCINATE! IT SAVES LIVES! Members of the community who have not yet received the COVID-19 vaccine and would like to receive it can visit one of [facility] vaccine clinics. There are many vaccine clinic locations within the [facility]. For locations and available times, please visit www.gettheshot.coronavirus.[place].gov/. It is important to note that some COVID mobile vaccine clinics are held outdoors and may be canceled in rainy or stormy conditions. To learn more about pediatric vaccinations (ages 5-11), we invite you to visit the [facility] webpage. https://www.[facility].org/pages/8988-Cnplf-Mjfxftwywht-Amidpfnequ-Bkrvn-Rzk stions.htmlTo learn more about the COVID-19 vaccine, we invite you to visit the CDC website for a list of frequently asked questions. https://www.cdc.gov/coronavirus/2019-ncov/vaccines/faq.html [facility] Patient Portal Access Instructions: Stay connected with your healthcare team and access your personal medical information anytime with the [facility] Patient Portal. If you would like a full copy of your medical records please contact the [facility] Medical Records Department Sunday through Sunday between 8a.m. and 4:30p.m. Please follow the directions below to access the portal: 1.Access the email account you provided upon registration to the [facility].2.Look for an invitation email from [facility].3.Open the email and access the invitation link: Accept Invitation to [facility]4.Fill in the required arteaga to create your account. Sign into www.VeriWave with your username and password that you [...] you will allow to register on the [facility] Patient Portal for access to your information. You can also access the [facility] Patient Portal on the iSites. Simply click on Health Records under [employer] and then click on the GreenLight logo. HOW TO SAFELY DISPOSE OF PRESCRIPTION [...] Call your local pharmacy or go to http://bit.10-20 Media/6S0Hu4d to find one close to you.3.Make use of household items: Use cat litter or old coffee grounds to dispose medications if other options arenot available. Mix your drugs with these household products, seal them in an airtight container andthrow it into the garbage. Call [facility]: [phone] to be sure your drugs can be [...] aware that I should contact my doctor. Patient/Study Specialist Signature: Date/Time: Relationship to Patient: Witness Name/Signature: Date/Time: [facility] [id number] Hospital Discharge instructions Patient Education 08/31/2024 16:11:51 [...] relieved by rest and mild pain reliever 9446-4505 [employer]. [address] [place] [address]. All rights reserved. This information is not intended as a substitute for professional medical care. Always follow yourhealthcare professional's instructions. Follow Up Care 08/31/2024 15:22:23 With:Follow up with primary care provider Address:Unknown When:2-4 days [facility] 04-27-2025 Note Discharge Instructions Thank you for allowing [facility] to assist you with your healthcare needs. [...] relieved by rest and mild pain reliever 2100-4658 [employer]. [address] [place] [address], [place] [address]. All rights reserved. This information is not intended as a substitute for professional medical care. Always follow yourhealthcare professional's instructions. Additional Information VACCINATE! IT SAVES LIVES! Members of the community who have not yet received the COVID-19 vaccine and would like to receive it can visit one of [facility] vaccine clinics. There are many vaccine clinic locations within the [facility]. For locations and available times, please visit www.gettheshot.coronavirus.[place].gov/. It is important to note that some COVID mobile vaccine clinics are held outdoors and may be canceled in rainy or stormy conditions. To learn more about pediatric vaccinations (ages 5-11), we invite you to visit the [facility] webpage. https://www.[facility].org/pages/9324-Jujyc-Ymgtedvyogl-Tondctllqk-Pkyqo-Kbz stions.htmlTo learn more about the COVID-19 vaccine, we invite you to visit the CDC website for a list of frequently asked questions. https://www.cdc.gov/coronavirus/2019-ncov/vaccines/faq.html [facility] [employer] Patient Portal Access Instructions: Stay connected with your healthcare team and access your personal medical information anytime with the [facility] Patient Portal. If you would like a full copy of your medical records please contact the [facility] Medical Records Department Sunday through Sunday between 8a.m. and 4:30p.m. Please follow the directions below to access the portal: 1.Access the email account you provided upon registration to the hospital.2.Look for an invitation email from [facility].3.Open the email and access the invitation link: Accept Invitation to [facility]4.Fill in the required arteaga to create your account. Sign into www.keyshawnVascular Therapies with your username and password that you [...] you will allow to register on the [facility] Patient Portal for access to your information. You can also access the [facility] Patient Portal on the iSites. Simply click on Health Records under [employer] and then click on the GreenLight logo. HOW TO SAFELY DISPOSE OF PRESCRIPTION [...] Call your local pharmacy or go to http://Sterecycle.10-20 Media/9I1Tq9b to find one close to you.3.Make use of household items: Use cat litter or old coffee grounds to dispose medications if other options arenot available. Mix your drugs with these household products, seal them in an airtight container andthrow it into the garbage. Call [facility]: [phone] to be sure your drugs can be [...] aware that I should contact my doctor. Patient/Study Specialist Signature: Date/Time: Relationship to Patient: Witness Name/Signature: Date/Time: [facility]01-24-2025 Telephone encounter Note* Telephone Encounter - aMrissa Givens RN - 05/30/2024 1:56 PM EST Last OV 11/22/2023. Please address in AG absence. Requested Prescriptions Pending Prescriptions Disp Refills medroxyPROGESTERone (DEPO-PROVERA) 150 mg/mL 1 mL 3 Sig: Inject 1 mL intramuscularly every 12 weeks. Marissa Givens RN [facility]01-24-2025 Miscellaneous Notes* Telephone Encounter - Marissa Givens RN - 05/30/2024 1:56 PM EST Last OV 11/22/2023. Please address in AG absence. Requested Prescriptions Pending Prescriptions Disp Refills medroxyPROGESTERone (DEPO-PROVERA) 150 mg/mL 1 mL 3 Sig: Inject 1 mL intramuscularly every 12 weeks. Marissa Givens RN [facility] Telephone encounter Note * Telephone Encounter - Marissa Givens RN - 05/30/2024 1:55 PM EST Last OV 11/22/2023. Please address in AG absence. Requested Prescriptions Pending Prescriptions Disp Refills valACYclovir (VALTREX) 500 mg tablet 90 tablet 0 Sig: Take 1 tablet by mouth once daily. Marissa Givens RN [facility]01-24-2025 Miscellaneous Notes* Telephone Encounter - Marissa Givens RN - 05/30/2024 1:55 PM EST Last OV 11/22/2023. Please address in AG absence. Requested Prescriptions Pending Prescriptions Disp Refills valACYclovir (VALTREX) 500 mg tablet 90 tablet 0 Sig: Take 1 tablet by mouth once daily. Marissa Givens RN [facility] Telephone encounter Note * Telephone Encounter - Yaquelin Gaston APRN.CNP - 02/14/2024 9:35 AM EDT Order filed. Yaquelin Gaston APRN.CNP [facility]10-10-2024 Miscellaneous Notes* Telephone Encounter - Yaquelin Gaston APRN.CNP - 02/14/2024 9:35 AM EDT Order filed. Yaquelin Gaston APRN.CNP * Telephone Encounter - Claudia Woodall RN - 02/14/2024 8:11 AM EDT Can you please file depo CAM order for nurse visit today. Claudia Woodall RN [facility] Telephone encounter Note * Telephone Encounter - Claudia Woodall RN - 02/14/2024 8:11 AM EDT Can you please file depo CAM order for nurse visit today. Claudia Woodall RN [facility]07-18-2024 Nurse Note* Radha Eli LPN - 11/22/2023 5:05 PM EDT The patient is here for an injection of Depoprovera. Dose: 150 mg Route: Intramuscular Site: left upper quadrant gluteus Top Coater: prasco Lot: [id number] Expiration Date: 12/04/2026 The date due for the next injection is in 12 weeks Radha Eli LPN [facility]07-18-2024 Nurse Note* Radha Eli LPN - 11/22/2023 5:05 PM EDT The patient is here for an injection of Depoprovera. Dose: 150 mg Route: Intramuscular Site: left upper quadrant gluteus Top Coater: prasco Lot: [id number] Expiration Date: 12/04/2026 The date due for the next injection is in 12 weeks Radha Eli LPN documented in [facility] encounterMem[facility]07-18-2024 NoteHNO ID: [id number] Author: PRATIMA KAT MD Service: ? Author Type: Physician Type: Progress Notes Filed: 11/22/2023 14:12 Note Text: Felt Checker offered: Patient declines. Sandie is a 33 [...] L1 SAB0 IAB0 Ectopic0 Multiple0 Live Births1 Finish Patcher History LMP: 06/15/2023 (Approximate), Drug Induced Amenorrhea Age at Menarche: Age at First : Age at Menopause: Finish Patcher History Comments: Sexual Activity: Yes; Male Contraception: [...] external genitalia normal, normal Bartholin's glands, urethra, Keachi's glands, no vulvar lesions, no cervical lesions, [...] year or sooner as needed Pratima Kat [facility]07-18-2024 History of Present illness Narrative* Pratima Kat MD - 11/22/2023 1:25 PM EDT Felt Checker offered: Patient declines. Sandie is a 33 [...] L1 SAB0 IAB0 Ectopic0 Multiple0 Live Births1 Finish Patcher History LMP: 06/15/2023 (Approximate), Drug Induced Amenorrhea Age at Menarche: Age at First : Age at Menopause: Finish Patcher History Comments: Sexual Activity: Yes; Male Contraception: [...] external genitalia normal, normal Bartholin's glands, urethra, Keachi's glands, no vulvar lesions, no cervical lesions, [...] needed Pratima Kat MD [facility] Note. MICRO - Microbiology PROCEDURE: Urine [...] Locations *1: This test was performed at: [address], [facility] , [facility]11-19-2023 Hospital Discharge instructions Patient Education 11/19/2023 17:02:18 [...] foods again, start with small amounts of qyxu-dh-cnqdtr, low- fat foods. These include apple sauce, [...] increase stomach acid. Don't use aspirin or qcoa-bcw-wjurtov pain and fever medicines, if possible. This includes nonsteroidal anti-inflammatory drugs (NSAIDs). Lose excess weight. Finish eating at least 2 hours before you go to bed or lie down. Raise the head of your bed. 4333-8[address] The [employer]. [address] [place] [address]. All rights reserved. This information is not [...] swelling in the outer vaginal area (labia) 5593-7737 [employer]. [address] [place] [address]. All rights reserved. This information is not intended as a substitute for professional medical care. Always follow yourhealthcare professional's instructions. Follow Up Care 11/19/2023 15:38:59 With:ROSA KEMP MD Address: [address] [place] [phone] When:2-4 days [facility] 07-15-2024 Note Discharge Instructions Thank you for allowing [facility] to assist you with your healthcare needs. The following is importantdischarge information regarding your hospital visit. What to Do Next Instructions from Your Care Team No qualifying data available. Post Acute Orders No qualifying data available. You Need to Schedule the Following Appointments Follow Up with ROSA KEMP MD When:Within 2-4 days Where:[address] [place] [phone] Allergies naproxen Nausea Medications Please ask your [...] may report side effects to FDA at [phone]. What other drugs will affect cephalexin? Tell your doctor about all your other medicines, especially: metformin; or probenecid. This list is not complete. Other drugs may affect cephalexin, including prescription and spfr-zvt-hkmstzh medicines, vitamins, and herbal products. Not all [...] to ensure that the information provided by [employer]. ('Multum') is accurate, up-to-date, and complete, but no guarantee is made to that effect. Drug information contained herein may be time sensitive. Thinglink information has been compiled for use by healthcare practitioners and consumers in the [place] and therefore Thinglink does not warrant that uses outside of the [place] are appropriate, unless specifically indicated otherwise. Axcients drug information does not endorse drugs, diagnose patients or recommend therapy. Axcients drug information isan informational resource designed to [...] effective or appropriate for any given patient. Thing[employer] does not assume any responsibility for any aspect of healthcare administered with the aid of information Thinglink provides. The information contained herein is not intended to cover all possible uses, directions, precautions, warnings, drug interactions, allergic reactions, or adverse effects. If you have questions about the drugs you are taking, check with your doctor, nurse or pharmacist. Copyright 7371-4358 [employer]. Version: 04.06. Revision Date: 12/06/2022. Education Materials Abdominal Pain [...] foods again, start with small amounts of pxnc-qm-uqcdww, low- fat foods. These include apple sauce, [...] increase stomach acid. Don't use aspirin or ycfi-nlu-ffiadwi pain and fever medicines, if possible. This includes nonsteroidal anti-inflammatory drugs (NSAIDs). Lose excess weight. Finish eating at least 2 hours before you go to bed or lie down. Raise the head of your bed. 7521-2720 The [employer]. [address] [place] [address]. All rights reserved. This information is not [...] swelling in the outer vaginal area (labia) 1727-9260 The [employer]. [address] [place] [address], [place] [address]. All rights reserved. This information is not intended as a substitute for professional medical care. Always follow yourhealthcare professional's instructions. Additional Information VACCINATE! IT SAVES LIVES! Members of the community who have not yet received the COVID-19 vaccine and would like to receive it can visit one of [facility] vaccine clinics. There are many vaccine clinic locations within the [facility]. For locations and available times, please visit www.[email or web address].gov/. It is important to note that some COVID mobile vaccine clinics are held outdoors and may be canceled in rainy or stormy conditions. To learn more about pediatric vaccinations (ages 5-11), we invite you to visit the [facility] webpage. https://www.[facility].org/pages/9480-Vmqjc-Pwtfsxnemgt-Oojlczjfdf-Sfzeg-Ywy stions.htmlTo learn more about the COVID-19 vaccine, we invite you to visit the CDC website for a list of frequently asked questions. https://www.cdc.gov/coronavirus/2019-ncov/vaccines/faq.html [facility]tela Patient Portal Access Instructions: Stay connected with your healthcare team and access your personal medical information anytime with the [facility] Patient Portal. If you would like a full copy of your medical records please contact the [facility] Medical Records Department Sunday through Sunday between 8a.m. and 4:30p.m. Please follow the directions below to access the portal: 1.Access the email account you provided upon registration to the hospital.2.Look for an invitation email from [facility].3.Open the email and access the invitation link: Accept Invitation to [facility]4.Fill in the required arteaga to create your account. Sign into [email or web address].[email or web address] with your username and password that you [...] you will allow to register on the [facility] Patient Portal for access to your information. You can also access the [facility]ela Patient Portal on the VAIREX international nat. Simply click on Health Records under [employer] and then click on the Keyshawn logo. [...] Call your local pharmacy or go to [email or web address] [email or web address] to find one close to you.3.Make use of household items: Use cat litter or old coffee grounds to dispose medications if other options arenot available. Mix your drugs with these household products, seal them in an airtight container andthrow it into the garbage. Call [facility]: [phone] to be sure your drugs can be [...] aware that I should contact my doctor. Patient/Study Specialist Signature: Date/Time: Relationship to Patient: Witness Name/Signature: Date/Time: [facility]07-15-2024 Evaluation + Plan note Diagnostic Tests Pending * Urine Culture 11/19/23 [facility] 07-09-2024 Telephone encounter Note* Telephone Encounter - [...] by mouth once daily. Pratima Carmona RN [facility]07-09-20[facility] Miscellaneous Notes* Telephone Encounter - Pratima [...] daily. Pratima Carmona RN documented [facility] Telephone encounter Note * Telephone Encounter [...] Essence Lobato October 10, 2023 11:41 AM [facility]06[facility] Miscellaneous Notes* Telephone Encounter - Danis [...] 10, 2023 11:41 AM documented in this encounterMem[facility]24 Hospital Discharge instructions Patient Education 09/24/2023 [...] thin towel or cloth. You may use hsxt-iuh-oizobzw pain medicine (NSAIDS or nonsteroidal anti- inflammatory [...] or is irritated You re-injure your ankle 8611-7778 The [employer]. [address] [place] [address]. All rights reserved. This information is not intended as a substitute for professional medical care. Always follow yourhealthcare professional's instructions. Follow Up Care 09/24/2023 18:40:08 With:Benji Herrera [phone] Address: When:5 to 7 days only if needed [facility] 05-20-2024 Emergency department Discharge summary Discharge Instructions Thank you for allowing [facility] to assist you with your healthcare needs. [...] thin towel or cloth. You may use hzpr-pgr-kxvbfuh pain medicine (NSAIDS or nonsteroidal anti- inflammatory [...] or is irritated You re-injure your ankle 3431-2505 The [employer]. [address] [place] [address]. All rights reserved. This information is not intended as a substitute for professional medical care. Always follow yourhealthcare professional's instructions. Additional Information VACCINATE! IT SAVES LIVES! Members of the community who have not yet received the COVID-19 vaccine and would like to receive it can visit one of [facility] vaccine clinics. There are many vaccine clinic locations within the [facility]. For locations and available times, please visit [email or web address]/. It is important to note that some COVID mobile vaccine clinics are held outdoors and may be canceled in rainy or stormy conditions. To learn more about pediatric vaccinations (ages 5-11), we invite you to visit the [facility] webpage. https://www.[facility].org/pages/2275-Zhlkk-Ivhlyrbixyf-Dmhocnumgd-Lvbdm-Quc stions.htmlTo learn more about the COVID-19 vaccine, we invite you to visit the CDC website for a list of frequently asked questions. https://www.cdc.gov/coronavirus/2019-ncov/vaccines/faq.html [facility] Patient Portal Access Instructions: Stay connected with your healthcare team and access your personal medical information anytime with the [facility] Patient Portal. If you would like a full copy of your medical records please contact the [facility] Medical Records Department Sunday through Sunday between 8a.m. and 4:30p.m. Please follow the directions below to access the portal: 1.Access the email account you provided upon registration to the hospital.2.Look for an invitation email from [facility].3.Open the email and access the invitation link: Accept Invitation to [facility]4.Fill in the required arteaga to create your account. Sign into www.[email or web address] with your username and password that you [...] you will allow to register on the [facility]ela Patient Portal for access to your information. You can also access the [facility] Patient Portal on the iSites. Simply click on Health Records under [employer] and then click on the GreenLight logo. HOW TO SAFELY DISPOSE OF PRESCRIPTION [...] Call your local pharmacy or go to [email or web address] [email or web address] to find one close to you.3.Make use of household items: Use cat litter or old coffee grounds to dispose medications if other options arenot available. Mix your drugs with these household products, seal them in an airtight container andthrow it into the garbage. Call [facility]: [phone] to be sure your drugs can be [...] aware that I should contact my doctor. Patient/Study Specialist Signature: Date/Time: Relationship to Patient: Witness Name/Signature: Date/Time: [facility]05-20-2024 Note ORIGINAL EXAMINATION: THREE XRAY VIEWS OF [...] Sign Date: 09/24/2023 9:23:59 PM Ordering Provider: [facility]04-24-2024 NoteHNO ID: [id number] Author: NETTE BROWN RN Service: ? Author Type: Registered Nurse Type: Progress Notes Filed: 08/29/2023 15:45 Note Text: Patient identified by name and date of . Sandie Becerril is here for a Depo Provera injection. Patient brought medication. Date last injected: 06/06/23 Depo-Provera, 150 mg, administered IM right upper quadrant gluteus, Lot # [id number], expiration date 04/05/2025. Depo-Provera was given without incident. Date of last menses: Patient's last menstrual period was 06/15/2023 (approximate). Irregular bleeding - No Menses ceased - Yes STD prevention discussed: Yes Patient instructed to return to clinic in 12 weeks. http://[email or web address]/contraception/Depo-Provera%20dosing%20calendar.pdf Provider Enedelia Dumont CNM was present in office at time of injection. [facility] History of Present illness Narrative* Nette Brown RN - 08/29/2023 3:32 PM EDT Patient identified by name and date of . Sandie Becerirl is here for a Depo Provera injection. Patient brought medication. Date last injected: 06/06/23 Depo-Provera, 150 mg, administered IM right upper quadrant gluteus, Lot # [id number], expiration date 04/05/2025. Depo-Provera was given without incident. Date of last menses: Patient's last menstrual period was 06/15/2023 (approximate). Irregular bleeding - No Menses ceased - Yes STD prevention discussed: Yes Patient instructed to return to clinic in 12 weeks. http://[email or web address]/clinic/contraception/Depo-Provera%20dosing%20calendar.pdf Provider Enedelia Dumont CNM was present in office at time of injection. Nette Brown RN documented in this encounterMemorial Hospital03-08-2024 Instructions* Patient Instructions* Anna Marie Pérez APRN.CNP - 07/13/2023 8:42 AM EST Ice and heat as tolerated Activity as tolerated documented in this encounterMemorial Hospital03-08-2024 History of Present illness Narrative* Anna Marie Pérez APRN.CNP - 07/13/2023 8:00 AM EST Images from the original note were not included. 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 approx 1 year ago [facility] [...] validated on 07/13/2023 by Anna Marie Pérez APRN.FANCY STITCHER All prescriptions have been APPROPRIATELY filled. No [...] or focal abnormality throughout the regions evaluated. Audit Specialist: MNOSERRAT Transcribe Date/Time: Jun 18 2023 12:45P Dictated [...] Medications Interventional Procedures: None Studies: None Functional Faith: Physical Therapy Consultation (Land-Based) Referrals: No additional [...] APRN.ANNE Pain [facility] * Lynn Valentin MA - 07/13/2023 7:59 [...] The patient is nervous/anxious. documented in this encounterMemorial Hospital03-08-2024 NoteHNO ID: [id number] Author: ANNA MARIE PÉREZ APRN.ANNE Service: ? 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 No [...] 1. Very minimal le (more content not included)...[facility] 07-13-2023 NoteHNO ID: [id number] Author: LYNN VALENTIN MA Service: ? 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 The patient is nervous/anxious.[facility]02-23-2024 NoteHNO ID: [id number] Author: LYNN VALENTIN MA Service: ? 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 The patient is nervous/anxious.[facility]02-23-2024 History of Present illness Narrative* Lynn [...] patient is nervous/anxious. * Anna Marie Pérez APRN.FANCY STITCHER - 06/29/2023 9:00 AM EST Images from the original note were not included. [facility] Today's Date: 06/28/2023 Name: Sandie Becerril : [...] Anna Marie Pérez APRN.ANNE documented in this encounterMemorial Hospital02-23-2024 NoteHNO ID: [id number] Author: ANNA MARIE PÉREZ APRN.CNP Service: ? Author Type: Nurse Practitioner Type: Progress Notes Filed: 06/29/2023 09:38 Note Text: [facility] Today's Date: 06/28/2023 Name: Sandie Becerril : [...] return to the office. Anna Marie Pérez APRN.CNPPen[facility]scot [facility]02-19-2024 Miscellaneous Notes * Telephone Encounter - Usha Munoz LPN - 06/25/2023 9:02 AM EST Patient states, I have a UTI going on. Patient was seen at [facility], an Urgent Care through [facility]. Patient was started on Macrobid and she is going to follow up with her PCP. Allergies reviewed in Epic. Usha Munoz LPN * Telephone Encounter - Usha Munoz LPN - 06/25/2023 8:59 AM EST ----- Message from Lis Freedman MD sent at 06/20/2023 12:56 PM EST ----- Does she have UTI symptoms? Any allergies ? documented in this encounterMemorial Hospital02-12-2024 Miscellaneous Notes* Telephone Encounter - Aimee Terrazas - 06/18/2023 1:32 PM EST Internal referral Pain Mgt Conf @[id number] Aimee Terrazas documented in this encounterMemorial Hospital02-12-2024 History of Present illness Narrative* Cole Rowe RT(R) - 06/18/2023 11:15 AM EST Radiology Service [...] PATIENT PRESENTS WITH AN IMPLANTABLE OR ATTACHED PAINTER: No RADIOLOGY DEPARTMENT: General X-ray: Exam(s) Completed: Spine X-Ray(s): Lumbar AP / LAT / L5-S1 Pelvis X-Ray: sacroiliac joints Lower Extremity X-Ray(s): Knee, AP Only Bilateral and Wt. Bearing Upper Extremity X-Ray(s): Hand, bilateral PERIPHERAL IV DATA: Not applicable SIGNED BY: RT Eitan(R) June 18, 2023 11:10 AM documented in this encounterMemorial Hospital02-12-2024 NoteHNO ID: [id number] Author: COLE ROWE RT(Mike) Service: Radiology Author [...] PATIENT PRESENTS WITH AN IMPLANTABLE OR ATTACHED PAINTER: No RADIOLOGY DEPARTMENT: General X-ray: Exam(s) Completed: Spine X-Ray(s): Lumbar AP / LAT / L5-S1 Pelvis X-Ray: sacroiliac joints Lower Extremity X-Ray(s): Knee, AP Only Bilateral and Wt. Bearing Upper Extremity X-Ray(s): Hand, bilateral PERIPHERAL IV DATA: Not applicable SIGNED BY: RT Eitan(R) June 18, 2023 11:10 [facility]02-12-2024 NoteHNO ID: [id number] Author: LIS FREEDMAN MD Service: ? 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 No follow-ups on file. Lis Freedman MD documented in this encounterMemorial Hospital02-07-2024 Miscellaneous Notes* Telephone Encounter - Claudia Woodall RN - 06/13/2023 9:20 AM EST Patient notified. Claudia Woodall RN * Telephone Encounter - Nette Brown RN - 06/13/2023 9:06 AM EST Left message to call office. Nette Brown RN * Telephone Encounter - Angelina Bartlett APRN.CNP - 06/13/2023 6:52 AM EST Please reassure her that a change in bleeding pattern is not unusual with Depo- Provera and should resolve on its own. If it does not, she can let us know. Angelina Bartlett APRN.ANNE * Telephone Encounter - Pratima Carmona RN [...] tomorrow. Pratima Carmona RN documented in this encounterMemorial Hospital01-31-2024 NoteHNO ID: [id number] Author: NETTE BROWN RN Service: ? Author Type: Registered Nurse Type: Progress Notes Filed: 06/06/2023 16:03 Note Text: Patient identified by name and date of . Sandie Becerril is here for a Depo Provera injection. Patient brought medication. Date last injected: 03/15/23 Depo-Provera, 150 mg, administered IM left upper quadrant gluteus, Lot # [id number], expiration date 10/04/2024. Depo-Provera was given without incident. Date of last menses: Patient's last menstrual period was 11/14/2019 (approximate). Irregular bleeding - No Menses ceased - Yes STD prevention discussed: Yes Patient instructed to return to clinic in 12 weeks. [email or web address]/contraception/Depo-Provera%20dosing%20calendar.pdf Provider Enedelia Dumont CNM was present in office at time of injection. Nette Brown [facility]NM[facility]01-[facility] History of Present illness Narrative* Gloria [...] 30, 2023 12:23 PM documented in this encounterMemorial Hospital01-24-2024 NoteHNO ID: [id number] Author: GLORIA MAN RT(R) Service: Radiology Author Type: Technologist Type: [...] BY: RT Jacque(R) May 30, 2023 12:23 [facility]01-24-2024 NoteHNO ID: [id number] Author: VERNON CALVIN APRN.FANCY STITCHER Service: ? Author Type: Nurse Practitioner Type: [...] leg: Normal. Comments: 2-3 (more content not included)...[facility] NoteHNO ID: [id number] Author: Claudia Woodall RN Service: ? Author Type: ? Type: Progress Notes Filed: 03/15/2023 4:13 PM Note Text: Patient identified by name and date of . Sandie Becerril is here for a Depo Provera injection. Patient brought medication. Date last injected: overdue-negative test Depo-Provera, 150 mg, administered IM right upper quadrant gluteus, Lot # [id number], expiration date 02/03/2027. Depo-Provera was given without incident. Date of last menses: Patient's last menstrual period was 11/14/2019 (approximate). Irregular bleeding - No Menses ceased - Yes STD prevention discussed: Yes Patient instructed to return to clinic on 12 weeks. [email or web address]/contraception/Depo-Provera%20dosing%20calendar.pdf Provider Dr. Penny was present in office at time of injection. Claudia Woodall RNM[facility] Hospital11-09-2023 History of Present illness Narrative* Claudia Woodall RN - 03/15/2023 3:53 PM EST Patient identified by name and date of . Sandie Becerril is here for a Depo Provera injection. Patient brought medication. Date last injected: overdue-negative test Depo-Provera, 150 mg, administered IM right upper quadrant gluteus, Lot # [id number], expiration date 02/03/2027. Depo-Provera was given without incident. Date of last menses: Patient's last menstrual period was 11/14/2019 (approximate). Irregular bleeding - No Menses ceased - Yes STD prevention discussed: Yes Patient instructed to return to clinic on 12 weeks. [email or web address]/contraception/Depo-Provera%20dosing%20calendar.pdf Provider Dr. Penny was present in office at time of injection. Claudia Woodall RN documented in this encounterMemorial Hospital08-03-2023 Miscellaneous Notes* Telephone Encounter - Pratima Carmona RN - 12/07/2022 2:39 PM EDT [place] [facility] called to request Depo RX. Patient has a nurse visit scheduled tomorrow. CAM order also pending. Requested Prescriptions Pending Prescriptions Disp Refills medroxyPROGESTERone (DEPO-PROVERA) 150 mg/mL 1 mL 3 Sig: Inject 1 mL intramuscularly every 12 weeks. medroxyPROGESTERone 150 mg injection (DEPO-PROVERA) Pratima Carmona RN documented in this encounterMemorial Hospital05-15-2023 Hospital Discharge instructions Patient Education 09/18/2022 [...] temperature. Use toothpaste made for sensitive teeth. [place] gently up and down instead of sideways. Brushing sideways can wear away root surfaces if they are exposed. If your tooth is chipped or cracked, or if there is a large open cavity, put oil of cloves directlyon the tooth to relieve pain. You can buy oil of cloves at drugstores. Some pharmacies carry an dohb-zmx-btkvncx toothache kit. This contains a paste that you can put on the exposed tooth to make it less sensitive. Put a cold pack on your jaw over the sore area to help reduce pain. You may use rshb-mip-ojzpvin medicine to ease pain, unless your doctor [...] healthcare provider Pus drains from the tooth [phone] [employer]. [address] [place] [address]. All rights reserved. This information is not intended as a substitute for professional medical care. Always follow yourhealthcare professional's instructions. Follow Up Care 09/18/2022 18:27:29 With:your dentist Address: When:2-4 days [facility] 05-15-2023 Note Discharge Instructions Thank you for allowing [facility] to assist you with your healthcare needs. [...] temperature. Use toothpaste made for sensitive teeth. [place] gently up and down instead of sideways. Brushing sideways can wear away root surfaces if they are exposed. If your tooth is chipped or cracked, or if there is a large open cavity, put oil of cloves directlyon the tooth to relieve pain. You can buy oil of cloves at drugstores. Some pharmacies carry an ohyo-ivq-ewxpfja toothache kit. This contains a paste that you can put on the exposed tooth to make it less sensitive. Put a cold pack on your jaw over the sore area to help reduce pain. You may use utug-xza-mmfhveg medicine to ease pain, unless your doctor [...] healthcare provider Pus drains from the tooth 1338-7809 [employer]. [address] [place] [address]. All rights reserved. This information is not intended as a substitute for professional medical care. Always follow yourhealthcare professional's instructions. Additional Information VACCINATE! IT SAVES LIVES! Members of the community who have not yet received the COVID-19 vaccine and would like to receive it can visit one of [facility] vaccine clinics. There are many vaccine clinic locations within the [facility]. For locations and available times, please visit www.gettheshot.coronavirus.[place].gov/. It is important to note that some COVID mobile vaccine clinics are held outdoors and may be canceled in rainy or stormy conditions. To learn more about pediatric vaccinations (ages 5-11), we invite you to visit the [facility] webpage. https://www.[facility].org/pages/9026-Vrzyq-Nmpkogvxvdt-Rwhkcfbqav-Bfurt-Kal stions.htmlTo learn more about the COVID-19 vaccine, we invite you to visit the CDC website for a list of frequently asked questions. https://www.cdc.gov/coronavirus/2019-ncov/vaccines/faq.html [facility] Patient Portal Access Instructions: Stay connected with your healthcare team and access your personal medical information anytime with the [facility] Patient Portal. If you would like a full copy of your medical records please contact the [facility] Medical Records Department Sunday through Sunday between 8a.m. and 4:30p.m. Please follow the directions below to access the portal: 1.Access the email account you provided upon registration to the [facility].2.Look for an invitation email from [facility].3.Open the email and access the invitation link: Accept Invitation to [facility]4.Fill in the required arteaga to create your account. Sign into www.[email or web address] with your username and password that you [...] you will allow to register on the [facility] Patient Portal for access to your information. You can also access the [facility] Patient Portal on the iSites. Simply click on Health Records under [employer] and then click on the GreenLight logo. HOW TO SAFELY DISPOSE OF PRESCRIPTION [...] Call your local pharmacy or go to http://[email or web address] Media/6Z1To0r to find one close to you.3.Make use of household items: Use cat litter or old coffee grounds to dispose medications if other options arenot available. Mix your drugs with these household products, seal them in an airtight container andthrow it into the garbage. Call [facility]: [phone] to be sure your drugs can be [...] aware that I should contact my doctor. Patient/Study Specialist Signature: Date/Time: Relationship to Patient: Witness Name/Signature: Date/Time: [facility] [id number] Instructions* Patient Instructions* Rebecca Alexis ENTRY LEVEL MARKETING REPRESENTATIVE - 09/05/2022 2:40 PM EDT Patient Instructions [...] received a copy. 09/05/2022 documented [facility] History of Present illness Narrative* Rebecca [...] IM left upper quadrant gluteus, Lot # [id number], expiration date 09/03/26. Depo-Provera was given without [...] L1 SAB0 IAB0 Ectopic0 Multiple0 Live Births1 Finish Patcher History LMP: 11/14/2019 (Approximate), Drug Induced Amenorrhea Age at Menarche: Age at First : Age at Menopause: Finish Patcher History Comments: Sexual Activity: Yes; Male Contraception: [...] HCG QUAL UR B/O- negative Yaquelin Gaston APRN.CNP Medical Decision Making: Problems: Low: Acute, uncomplicated illness or injury Data: Unique test(s) ordered: 2 Risk: Low: Low risk from testing/treatment Moderate: Drug management Medical Decision Making Level: 3 - Low documented in [facility] Pal [facility] August 14, 2022 10:40pm Note Date/Time August 14, 2022 8:4 2pm [facility] Medical Records Department [address] [place] [address] Emergency Department Summary 08/14/22 MR#: [id number] Acct: [id number] Name: SANDIE BECERRIL Rep #:[id number] : 1990 31 From: Isma Pal MD [...] tired and would like to go sleep. [facility] Medical History Acute maxillary sinusitis, unspecified [...] % (Auto) 66.8 Lymph % (Auto) 22.1 Eaton % (Auto) 8.3 Eos % (Auto) 1.4 [...] Primary Care Provider: Rosa Kemp Referrals: Rosa Kmep MD [Primary Care Provider] - 3-5 Days if not improving Disposition Disposition: Home, Self Care What to do if you have Problems For any increased pain, shortness of breath, bleeding, nausea or vomiting, chestpain, or any unexpected problems, contact your Primary Care Provider. Call [facility] ([phone]) or report to the closest Emergency Room. Call 911 if necessary. 08/14/220 <Electronically signed by Isma Pal MD> Cosigner Signature (if applicable): CC: Dr. Rosa Kemp MD ~ Signed [facility] Work Phone: [phone] Hospital Discharge instructions Patient Education 07/25/2022 19:45:47 [...] temperature. Use toothpaste made for sensitive teeth. [place] gently up and down instead of sideways. Brushing sideways can wear away root surfaces if they are exposed. If your tooth is chipped or cracked, or if there is a large open cavity, put oil of cloves directlyon the tooth to relieve pain. You can buy oil of cloves at drugstores. Some pharmacies carry an exwv-kxu-hqkreiu toothache kit. This contains a paste that you can put on the exposed tooth to make it less sensitive. Put a cold pack on your jaw over the sore area to help reduce pain. You may use uouf-fws-swmzsyy medicine to ease pain, unless your doctor [...] healthcare provider Pus drains from the tooth 8857-8105 [employer]. [address] [place] [address]. All rights reserved. This information is not intended as a substitute for professional medical care. Always follow yourhealthcare professional's instructions. Follow Up Care 07/25/2022 18:34:57 With:Follow-up with your dentist Address: When:2-4 days Comments:Schedule appointment as soon as possible With:ROSA KEMP MD Address: [address] [place] [address] [phone] When:2-4 days [facility] 03-21-2023 Emergency department Discharge summary Discharge Instructions Thank you for allowing [facility] to assist you with your healthcare needs. [...] KEMP MD When Within 2-4 days Where: [address] [place] [address] [phone] Allergies naproxen Medications Please ask your primary [...] temperature. Use toothpaste made for sensitive teeth. [place] gently up and down instead of sideways. Brushing sideways can wear away root surfaces if they are exposed. If your tooth is chipped or cracked, or if there is a large open cavity, put oil of cloves directlyon the tooth to relieve pain. You can buy oil of cloves at drugstores. Some pharmacies carry an dips-wrd-kbqhyat toothache kit. This contains a paste that you can put on the exposed tooth to make it less sensitive. Put a cold pack on your jaw over the sore area to help reduce pain. You may use wrje-vbw-jsbzhqy medicine to ease pain, unless your doctor [...] healthcare provider Pus drains from the tooth 0658-6209 [employer]. [address] [place] [address]. All rights reserved. This information is not intended as a substitute for professional medical care. Always follow yourhealthcare professional's instructions. Additional Information VACCINATE! IT SAVES LIVES! Members of the community who have not yet received the COVID-19 vaccine and would like to receive it can visit one of [facility] vaccine clinics. There are many vaccine clinic locations within the [facility]. For locations and available times, please visit www.gettheshot.coronavirus.[place].gov/. It is important to note that some COVID mobile vaccine clinics are held outdoors and may be canceled in rainy or stormy conditions. To learn more about pediatric vaccinations (ages 5-11), we invite you to visit the [facility] webpage. https://www.akronGENIUS CENTRAL SYSTEMSs.org/pages/7557-Sfjay-Ozormtlgdep-Sypovocwyl-Ondni-Rqk stions.htmlTo learn more about the COVID-19 vaccine, we invite you to visit the CDC website for a list of frequently asked questions. https://www.cdc.gov/coronavirus/2019-ncov/vaccines/faq.html [facility] Patient Portal Access Instructions: Stay connected with your healthcare team and access your personal medical information anytime with the [facility] Patient Portal. If you would like a full copy of your medical records please contact the [facility] Medical Records Department Sunday through Sunday between 8a.m. and 4:30p.m. Please follow the directions below to access the portal: 1.Access the email account you provided upon registration to the [facility].2.Look for an invitation email from [facility].3.Open the email and access the invitation link: Accept Invitation to [facility]4.Fill in the required arteaga to create your account. Sign into www.[email or web address] with your username and password that you [...] you will allow to register on the [facility] Patient Portal for access to your information. You can also access the [facility] Patient Portal on the VAIREX international nat. Simply click on Health Records under [employer] and then click on the GreenLight logo. HOW TO SAFELY DISPOSE OF PRESCRIPTION [...] Call your local pharmacy or go to http://Sterecycle.10-20 Media/2N5Dn7q to find one close to you.3.Make use of household items: Use cat litter or old coffee grounds to dispose medications if other options arenot available. Mix your drugs with these household products, seal them in an airtight container andthrow it into the garbage. Call [facility]: [phone] to be sure your drugs can be [...] aware that I should contact my doctor. Patient/Study Specialist Signature: Date/Time: Relationship to Patient: Witness Name/Signature: Date/Time: [facility]03-21-2023 Emergency department Discharge summary Discharge Instructions Thank you for allowing [facility] to assist you with your healthcare needs. [...] MD When Within 2-4 days Where: [address] [place] [address]- [phone] Allergies naproxen Medications Please ask your primary [...] temperature. Use toothpaste made for sensitive teeth. [place] gently up and down instead of sideways. Brushing sideways can wear away root surfaces if they are exposed. If your tooth is chipped or cracked, or if there is a large open cavity, put oil of cloves directlyon the tooth to relieve pain. You can buy oil of cloves at [employer]. Some pharmacies carry an pkmk-atz-fwukrmk toothache kit. This contains a paste that you can put on the exposed tooth to make it less sensitive. Put a cold pack on your jaw over the sore area to help reduce pain. You may use cidu-rnn-zmkihxc medicine to ease pain, unless your doctor [...] healthcare provider Pus drains from the tooth 1058-6230 [employer]. [address] [place] [address], [place] [address]. All rights reserved. This information is not intended as a substitute for professional medical care. Always follow yourhealthcare professional's instructions. Additional Information VACCINATE! IT SAVES LIVES! Members of the community who have not yet received the COVID-19 vaccine and would like to receive it can visit one of [facility] vaccine clinics. There are many vaccine clinic locations within the [facility]. For locations and available times, please visit www.gettheot.coronavirus.[place].gov/. It is important to note that some COVID mobile vaccine clinics are held outdoors and may be canceled in rainy or stormy conditions. To learn more about pediatric vaccinations (ages 5-11), we invite you to visit the [facility] webpage. https://www.[facility].org/pages/6974-Slvvu-Qiiaghbjngb-Gsffbmbevc-Twpts-Kwx stions.htmlTo learn more about the COVID-19 vaccine, we invite you to visit the CDC website for a list of frequently asked questions. https://www.cdc.gov/coronavirus/2019-ncov/vaccines/faq.html [facility] Patient Portal Access Instructions: Stay connected with your healthcare team and access your personal medical information anytime with the [facility] Patient Portal. If you would like a full copy of your medical records please contact the [facility] Medical Records Department Sunday through Sunday between 8a.m. and 4:30p.m. Please follow the directions below to access the portal: 1.Access the email account you provided upon registration to the hospital.2.Look for an invitation email from [facility].3.Open the email and access the invitation link: Accept Invitation to [facility]4.Fill in the required arteaga to create your account. Sign into www.VeriWave with your username and password that you [...] you will allow to register on the [facility] Patient Portal for access to your information. You can also access the [facility] Patient Portal on the VAIREX international nat. Simply click on Health Records under [employer] and then click on the [facility] logo. [...] Call your local pharmacy or go to http://Sterecycle.10-20 Media/2X8Kg7l to find one close to you.3.Make use of household items: Use cat litter or old coffee grounds to dispose medications if other options arenot available. Mix your drugs with these household products, seal them in an airtight container andthrow it into the garbage. Call [facility]: [phone] to be sure your drugs can be [...] aware that I should contact my doctor. Patient/Study Specialist Signature: Date/Time: Relationship to Patient: Witness Name/Signature: Date/Time: [facility]02-04-[address] Bingham [facility] June 10, 2022 9:47pm Note Date/Time June 10, 2022 7 :34pm [facility] Medical Records Department [address] [facility] [place] [address] Emergency Department Summary 06/10/22 MR#: [id number] Acct: [id number] Name: SANDIE BECERRIL Rep #:[id number] : 1990 31 From: Alvarez Bingham MD [...] not checked. No bloodin emesis or diarrhea. [facility] Medical History Acute maxillary sinusitis, unspecified [...] 87.3 H Lymph % (Auto) 4.3 L Eaton % (Auto) 7.2 Eos % (Auto) 0.5 [...] your Primary Care Provider. Call [facility] ([phone]) or report to the closest Emergency Room. Call 911 if necessary. 06/10/222146 <Electronically signed by Alvarez Bingham MD> Cosigner Signature (if applicable): CC: Dr. Rosa Kemp MD ~ Signed [facility] Work Phone: 1(976) 471-114902-04-2023 Hospital Discharge instructions Patient Education 06/10/2022 02:59:17 [...] you feel better and your symptoms lessen. 9502-[address] [employer] [place] [address]. All rights reserved. This information is not intended as a substitute for professional medical care. Always follow yourhealthcare professional's instructions. Follow Up Care 06/10/2022 02:45:15 With:ROSA KEMP MD Address: [address] [place] [address]- [phone] When:2-4 days [facility] 02-04-2023 Emergency department Discharge summary Discharge Instructions Thank you for allowing [facility] to assist you with your healthcare needs. The following is importantdischarge information regarding your hospital visit. Diagnosis from Today's Visit Vomiting Vomiting What to Do Next Instructions from Your Care Team No qualifying data available. Post Acute Orders No qualifying data available. You Need to Schedule the Following Appointments Follow Up with ROSA KEMP MD When Within 2-4 days Where: [address] [place] [address] [place] [address]- [phone] Allergies naproxen Medications Please ask your primary [...] ondansetron (oral) (on MATEO se geoffrey) Jj Zojaswant ODChyna, Patrice What is the most important information I [...] may report side effects to FDA at [phone]-EIA-1855. What other drugs will affect ondansetron? Ondansetron [...] interact with ondansetron. This includes prescription and msxl-cwc-uxqrlns medicines, vitamins, and herbal products. Give a [...] to ensure that the information provided by [employer]. ('Multum') is accurate, up-to-date, and complete, but no guarantee is made to that effect. Drug information contained herein may be time sensitive. Thinglink information has been compiled for use by healthcare practitioners and consumers in the [place] and therefore Thinglink does not warrant that uses outside of the [place] are appropriate, unless specifically indicated otherwise. Thinglink's drug information does not endorse drugs, diagnose patients or recommend therapy. [employer] Holdingss drug information isan informational resource designed to [...] effective or appropriate for any given patient. [facility] does not assume any responsibility for any aspect of healthcare administered with the aid of information [facility] provides. The information contained herein is not intended to cover all possible uses, directions, precautions, warnings, drug interactions, allergic reactions, or adverse effects. If you have questions about the drugs you are taking, check with your doctor, nurse or pharmacist. Copyright 0158-2684 [facility] [employer]. Version: 13.01. Revision Date: 02/25/2016. Education Materials [...] you feel better and your symptoms lessen. 9869-1724 [employer]. [address] [place] [address], [place] [address]. All rights reserved. This information is not intended as a substitute for professional medical care. Always follow yourhealthcare professional's instructions. Additional Information VACCINATE! IT SAVES LIVES! Members of the community who have not yet received the COVID-19 vaccine and would like to receive it can visit one of [facility] vaccine clinics. There are many vaccine clinic locations within the [facility]. For locations and available times, please visit www.gettheshot.coronavirus.[place].org. It is important to note that some COVID mobile vaccine clinics are held outdoors and may be canceled in rainy orstormy conditions. To learn more about pediatric vaccinations (ages 5-11), we invite you to visit the [facility] webpage. https://www.JibJabs.org/pages/2893-Pbbcj-Dxvhafqyjwx-Wwksjvqqtr-Qtebp-Vgh stions.htmlTo learn more about the COVID-19 vaccine, we invite you to visit the [facility] website for a list of frequently asked questions. https://VeriWave/assets/Brccnrkp-oqt-Nlienmhq/oowat-Mbfnrsf-Suzbrvripd _Asked-Questions.pdf [facility] Patient Portal Access Instructions: Stay connected with your healthcare team and access your personal medical information anytime with the [facility] Patient Portal. If you would like a full copy of your medical records please contact the [facility] Medical Records Department Sunday through Sunday between 8a.m. and 4:30p.m. Please follow the directions below to access the portal: 1.Access the email account you provided upon registration to the hospital.2.Look for an invitation email from [facility].3.Open the email and access the invitation link: Accept Invitation to [facility]4.Fill in the required arteaga to create your account. Sign into www.[email or web address] with your username and password that you [...] you will allow to register on the [facility] Patient Portal for access to your information. You can also access the [facility] Patient Portal on the VAIREX international nat. Simply click on Health Records under [employer] and then click on the GreenLight logo. HOW TO SAFELY DISPOSE OF PRESCRIPTION [...] Call your local pharmacy or go to http://Sterecycle.10-20 Media/1X0Fi0v to find one close to you.3.Make use of household items: Use cat litter or old coffee grounds to dispose medications if other options arenot available. Mix your drugs with these household products, seal them in an airtight container andthrow it into the garbage. Call [facility]: [phone] to be sure your drugs can be [...] aware that I should contact my doctor. Patient/Study Specialist Signature: Date/Time: Relationship to Patient: Witness Name/Signature: Date/Time: [facility]01-18-2023 History of Present illness Narrative * Nette Brown RN - 05/24/2022 10:57 AM EST hc Patient identified by name and date of . Sandie Becerril is here for a Depo Provera injection. Patient brought medication. Date last injected: out of range - negative test Depo-Provera, 150 mg, administered IM right upper quadrant gluteus, Lot # [id number], expiration date 01/04/2026. Depo-Provera was given without incident. Date of last menses: Patient's last menstrual period was 11/14/2019 (approximate). Irregular bleeding - No Menses ceased - Yes STD prevention discussed: Yes Patient instructed to return to clinic in 12 weeks. [email or web address]/contraception/Depo-Provera%20dosing%20calendar.pdf Provider Love Penny MD was present in office at time of injection. Nette Brown RN [facility] Hospital Discharge instructions Patient Education 01/29/2022 [...] or swelling over your back or spine 7340-6309 [employer]. [address] [place] [address]. All rights reserved. This information is not intended as a substitute for professional medical care. Always follow yourhealthcare professional's instructions. Follow Up Care 01/29/2022 15:23:42 With:Your pain management doctor Address: When:2-4 days With:ROSA KEMP MD Address: [address] [place] [address] [place] [address]- [phone] When:2-4 days With:Go to emergency room if symptoms worsen Address:Unknown When:2-4 days [facility] 09-25-2022 Emergency department Discharge summary Discharge Instructions Thank you for allowing [facility] to assist you with your healthcare needs. [...] When Within 2-4 days Where: [address] [place] [address]- [phone] Follow Up with Go to emergency room [...] or swelling over your back or spine 4806-6209 [employer] [place] [address], [place] [address]. All rights reserved. This information is not intended as a substitute for professional medical care. Always follow yourhealthcare professional's instructions. Additional Information VACCINATE! IT SAVES LIVES! Members of the community who have not yet received the COVID-19 vaccine and would like to receive it can visit one of [facility] vaccine clinics. There are many vaccine clinic locations within the [facility]. For locations and available times, please visit [email or web address]. It is important to note that some COVID mobile vaccine clinics are held outdoors and may be canceled in rainy orstormy conditions. To learn more about pediatric vaccinations (ages 5-11), we invite you to visit the [facility] webpage. https://www.[email or web address].org/pages/9774-Ycvml-Wohnzbotdit-Brtewgbhkf-Sfzao-Vwn stions.htmlTo learn more about the COVID-19 vaccine, we invite you to visit the [facility] website for a list of frequently asked questions. [email or web address]-[email or web address]/[email or web address]-Yepbsyy-Pgegjxuwnn _Asked-Questions.pdf [facility] Patient Portal Access Instructions: Stay connected with your healthcare team and access your personal medical information anytime with the [facility] Patient Portal. If you would like a full copy of your medical records please contact the [facility] Medical Records Department Sunday through Sunday between 8a.m. and 4:30p.m. Please follow the directions below to access the portal: 1.Access the email account you provided upon registration to the hospital.2.Look for an invitation email from [facility].3.Open the email and access the invitation link: Accept Invitation to [facility]4.Fill in the required arteaga to create your account. Sign into [email or web address] with your username and password that you [...] you will allow to register on the [facility] Patient Portal for access to your information. You can also access the [facility] Patient Portal on the [employer] international nat. Simply click on Health Records under [employer] and then click on the [facility] logo. [...] Call your local pharmacy or go to [email or web address] to find one close to you.3.Make use of household items: Use cat litter or old coffee grounds to dispose medications if other options arenot available. Mix your drugs with these household products, seal them in an airtight container andthrow it into the garbage. Call [facility]: [phone] to be sure your drugs can be [...] aware that I should contact my doctor. Patient/Study Specialist Signature: Date/Time: Relationship to Patient: Witness Name/Signature: Date/Time: [facility]09-02-2022 History of Present illness Narrative * Radha Eli LPN - 01/06/2022 3:37 PM EDT Patient identified by name and date of . Sandie Becerril is here for a Depo Provera injection. Patient brought medication. Date last injected: out of range - negative test Depo-Provera, 150 mg, administered IM left upper quadrant gluteus, Lot # [id number], expiration date 07/2023. Depo-Provera was given without incident. Date of last menses: Patient's last menstrual period was 11/14/2019 (approximate). Irregular bleeding - No Menses ceased - No STD prevention discussed: Yes Patient instructed to return to clinic IN 12 WEEKS. [email or web address]-[email or web address].pdf Provider Will Jamison was present in office at time of injection. Radha Eli LPN [facility] Hospital Discharge instructions Patient Education 12/07/2021 [...] or swelling over your back or spine [id number] [employer]. [address] [place] [address], [place] [address]. All rights reserved. This information is not [...] are taking other medicines. You may use bacc-erp-xtwleke medicine as directed on the bottle to [...] Numbness in the groin or genital area [phone] [employer] [place] [address]. All rights reserved. This information is not intended as a substitute for professional medical care. Always follow yourhealthcare professional's instructions. Follow Up Care 12/07/2021 17:44:52 With:ROSA KEMP MD Address: [address] [place] [phone]- [phone] When:Within 2 Day(s) Comments:Follow-up with your doctor as scheduled on Sunday.Position of comfort, limit activity as tolerated.Use ice or cool compresses to the painful area for the next 2 days and warm, moist heat thereafter.Continue ibuprofen and Tylenol for pain as needed.Use muscle relaxants (cyclobenzaprine) as prescribed for muscle pain and spasm.Use steroid (prednisone) as prescribed for inflammation.Return to ED if symptoms worsen. [facility] 08-03-2022 Note Discharge Instructions Thank you for allowing [facility] to assist you with your healthcare needs. [...] Return to ED if symptoms worsen. Where: [address] [place] [address] [place] [address] [phone] Allergies naproxen Medications Please ask your primary [...] or swelling over your back or spine 9239-1353 [employer]. [address] [place] [address], [place] [address]. All rights reserved. This information is not [...] are taking other medicines. You may use wknb-hti-noebqtk medicine as directed on the bottle to [...] Numbness in the groin or genital area [phone] [employer]. [address] [place] [address]. All rights reserved. This information is not intended as a substitute for professional medical care. Always follow yourhealthcare professional's instructions. Additional Information VACCINATE! IT SAVES LIVES! Members of the community who have not yet received the COVID-19 vaccine and would like to receive it can visit one of [facility] vaccine clinics. There are many vaccine clinic locations within the [facility]. For locations and available times, please visit [email or web address]. It is important to note that some COVID mobile vaccine clinics are held outdoors and may be canceled in rainy orstormy conditions. To learn more about pediatric vaccinations (ages 5-11), we invite you to visit the [facility] webpage. https://www.[facility].org/pages/7156-Euigk-Qilqfjujglc-Susidmqgiu-Zhatc-Axe stions.htmlTo learn more about the COVID-19 vaccine, we invite you to visit the [facility] website for a list of frequently asked questions. [email or web address]/Jmofzunm-[email or web address]-[email or web address]/yzbup-[email or web address]-[email or web address] _Asked-Questions.pdf [facility] Patient Portal Access Instructions: Stay connected with your healthcare team and access your personal medical information anytime with the [facility] Patient Portal. If you would like a full copy of your medical records please contact the [facility] Medical Records Department Sunday through Sunday between 8a.m. and 4:30p.m. Please follow the directions below to access the portal: 1.Access the email account you provided upon registration to the [facility].2.Look for an invitation email from [facility].3.Open the email and access the invitation link: Accept Invitation to [facility]4.Fill in the required arteaga to create your account. Sign into [email or web address] with your username and password that you [...] you will allow to register on the [facility] Patient Portal for access to your information. You can also access the [facility] Patient Portal on the [employer] international nat. Simply click on Health Records under [employer] and then click on the [employer] logo. HOW TO SAFELY DISPOSE OF PRESCRIPTION [...] Call your local pharmacy or go to http://[employer]/5D9Tf7b to find one close to you.3.Make use of household items: Use cat litter or old coffee grounds to dispose medications if other options arenot available. Mix your drugs with these household products, seal them in an airtight container andthrow it into the garbage. Call [facility]: [phone] to be sure your drugs can be [...] aware that I should contact my doctor. Patient/Study Specialist Signature: Date/Time: Relationship to Patient: Witness Name/Signature: Date/Time: [facility]07-17-2022 Hospital Discharge instructions Patient Education 11/20/2021 10:10:59 [...] or higher after 2 days on antibiotics [phone] [employer]. [address] [place] [address]. All rights reserved. This information is not intended as a substitute for professional medical care. Always follow yourhealthcare professional's instructions. Follow Up Care 11/20/2021 10:01:24 With:ROSA KEMP MD Address: [facility] [place] [address]- [phone] When:2-4 days [facility] 07-17-2022 Emergency department Discharge summary Discharge Instructions Thank you for allowing [facility] to assist you with your healthcare needs. The following is importantdischarge information regarding your hospital visit. Diagnosis from Today's Visit Cellulitis Skin problem What to Do Next Instructions from Your Care Team No qualifying data available. Post Acute Orders No qualifying data available. You Need to Schedule the Following Appointments Follow Up with ROSA KEMP MD When Within 2-4 days Where: [address] [place] [address]- [phone] Allergies naproxen Medications Please ask your primary [...] or life-threatening conditions such as anthrax or Eloy spotted fever. The benefit of treating a [...] Do not use anti-diarrhea medicine unless your doctortells you to. What are the possible side [...] may report side effects to FDA at [phone]-NPN-[phone]. What other drugs will affect doxycycline? Sometimes it is not safe to use certain medications at the same time. Some drugs can affect your blood levels of other drugs you take, which may increase side effects or make the medications less effective. Other drugs may affect doxycycline, including prescription and ztaf-pdx-uqmgjwi medicines, vitamins, and herbal products. Tell your [...] to ensure that the information provided by [employer]. ('Multum') is accurate, up-to-date, and complete, but no guarantee is made to that effect. Drug information contained herein may be time sensitive. Thinglink information has been compiled for use by healthcare practitioners and consumers in the [place] and therefore Thing[employer] does not warrant that uses outside of the [place] are appropriate, unless specifically indicated otherwise. [employer] drug information does not endorse drugs, diagnose patients or recommend therapy. A[employer]ients drug information isan informational resource designed to [...] effective or appropriate for any given patient. [employer] does not assume any responsibility for any aspect of healthcare administered with the aid of information Thinglink provides. The information contained herein is not intended to cover all possible uses, directions, precautions, warnings, drug interactions, allergic reactions, or adverse effects. If you have questions about the drugs you are taking, check with your doctor, nurse or pharmacist. Copyright 6294-8448 [employer]. Version: 21.04. Revision Date: 03/10/2020. Education Materials [...] or higher after 2 days on antibiotics 3794-0881 [employer]. [address] [place] [address]. All rights reserved. This information is not intended as a substitute for professional medical care. Always follow yourhealthcare professional's instructions. Additional Information VACCINATE! IT SAVES LIVES! Members of the community who have not yet received the COVID-19 vaccine and would like to receive it can visit one of [facility] vaccine clinics. There are many vaccine clinic locations within the [facility]. For locations and available times, please visit [email or web address]. It is important to note that some COVID mobile vaccine clinics are held outdoors and may be canceled in rainy orstormy conditions. To learn more about pediatric vaccinations (ages 5-11), we invite you to visit the [facility] webpage. https://www.[employer].org/pages/5706-Ejzwp-Oifkidovfjm-Kzbwsxuhqn-Emujn-Bgo stions.htmlTo learn more about the COVID-19 vaccine, we invite you to visit the [facility] website for a list of frequently asked questions. [email or web address]://[email or web address]/assets/Qqknoimm-kbf-[email or web address]/gmoou-Twxqnbk-[email or web address] _Asked-Questions.pdf [facility] Patient Portal Access Instructions: Stay connected with your healthcare team and access your personal medical information anytime with the [facility] Patient Portal. If you would like a full copy of your medical records please contact the [facility] Medical Records Department Sunday through Sunday between 8a.m. and 4:30p.m. Please follow the directions below to access the portal: 1.Access the email account you provided upon registration [facility] the [facility].2.Look for an invitation email from [facility].3.Open the email and access the invitation link: Accept Invitation to [facility]4.Fill in the required arteaga to create your account. Sign into [email or web address] with your username and password that you [...] you will allow to register on the [facility] Patient Portal for access to your information. You can also access the [facility] Patient Portal on the [employer] international nat. Simply click on Health Records under [employer] and then click on the GreenLight logo. HOW TO SAFELY DISPOSE OF PRESCRIPTION [...] Call your local pharmacy or go to http://[email or web address] Media/5E1Pf5v to find one close to you.3.Make use of household items: Use cat litter or old coffee grounds to dispose medications if other options arenot available. Mix your drugs with these household products, seal them in an airtight container andthrow it into the garbage. Call [facility]: [phone] to be sure your drugs can be [...] aware that I should contact my doctor. Patient/Study Specialist Signature: Date/Time: Relationship to Patient: Witness Name/Signature: Date/Time: [facility]06-06-2022 Hospital Discharge instructions Patient Education 10/10/2021 18:09:10 [...] thin towel or cloth. You may use ikuh-ybx-akidqua pain medicine (NSAIDS or nonsteroidal anti- inflammatory [...] or is irritated You re-injure your ankle [phone] [employer]. [address] [place] [address], [place] [address]. All rights reserved. This information is not intended as a substitute for professional medical care. Always follow yourhealthcare professional's instructions. Follow Up Care 10/10/2021 17:17:00 With:ROSA KEMP MD Address: [address] [place] [address] [place] [address]- [phone] When:2-4 days [facility] 05-03-2022 History of Present illness Narrative* Rebecca [...] L1 SAB0 IAB0 Ectopic0 Multiple0 Live Births1 Finish Patcher History LMP: 11/14/2019 (Approximate), Drug Induced Amenorrhea Age at Menarche: Age at First : Age at Menopause: Finish Patcher History Comments: Sexual Activity: Yes; No partner [...] external genitalia normal, normal Bartholin's glands, urethra, Keachi's glands, no vulvar lesions, no cervical lesions, [...] needed Angelina Bartlett APRN.ANNE [facility] Instructions* Patient Instructions* Angelina Bartlett APRN.CNP [...] glands, joint and muscle pain, weakness and Guillain-Stoddard syndrome. 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 The [employer] estimated that in 2005 there [...] may still be present. [facility] Hospital Discharge instructions Patient Education 09/05/2021 [...] injured area. Frequent bruising for unknown reasons 2758-8331 [employer]. [address] [place] [address], [place] [address]. All rights reserved. This information is not intended as a substitute for professional medical care. Always follow yourhealthcare professional's instructions. Follow Up Care 09/05/2021 17:50:11 With:ROSA KEMP MD [facility] [place] [address] [phone] When:2-4 days [facility] 04-19-2022 History of Present illness Narrative* Haydee Lord RN - 08/23/2021 9:08 AM EDT Patient identified by name and date of . Sandie Becerril is here for a Depo Provera injection. Patient brought medication. Date last injected: 06/01/2021 Depo-Provera, 150 mg, administered IM rightupper quadrant gluteus, Lot # [id number], expiration date 12/03/2022. Depo-Provera was given without incident. Date of last menses: Patient's last menstrual period was 11/14/2019 (approximate). Irregular bleeding - No Menses ceased - Yes STD prevention discussed: Yes Patient instructed to return to clinic on 12 weeks [email or web address]/Depo-Provera%20dosing%20calendar.pdf Provider Yaquelin Gaston. was present in office at time of injection. Haydee Lord RN [facility] Hospital Discharge instructions Patient Education 06/25/2021 [...] Hold for 2 seconds, then slowly lower. 1084-5574 [employer]. [address] [place] [address]. All rights reserved. This information is not [...] or legs Numbness in the groin area 4602-8401 [employer]. [address] [place] [address]. All rights reserved. This information is not intended as a substitute for professional medical care. Always follow yourhealthcare professional's instructions. Follow Up Care 06/25/2021 18:26:41 With:ROSA KEMP MD Address: [address] [place] [phone]- [phone] When:2-4 days [facility] Evaluation + Plan note No data available for this section [facility] Evaluation + Plan note Future Appointments Appointment Date:09/02/2024 09:00:00 AM Scheduled Provider:Apolinar Rivera PT Location:[facility] Appointment Type:PT Outpatient Evaluation [facility] Evaluation note* Diagnosis Encounter for management and injection of depo-Provera- Primary Surveillance of other previously prescribed contraceptive method documented [facility] encounter [facility]* Diagnosis Encounter for gynecological examination (general) (routine) without abnormal findings- Primary Need for prophylactic vaccination/inoculation against viral disease Need for prophylactic vaccination and inoculation against other viral diseases Genital herpes simplex, unspecified site [facility] Diagnosis Onset Date Resolution Status Acute upper respiratory infection acute Contact with or suspected ex posure to other viral communicable disease acute Bilateral sacroiliitis acute Acute maxillary sinusitis, unspecified acute Encounter for screening for COVID-19 acute Left ankle sprain acute Chronic left sacroiliac joint pain chronic [facility] Work Phone: Evaluation note* Diagnosis Encounter for management and injection of depo-Provera- Primary Surveillance of other previously prescribed contraceptive method [facility] Diagnosis Onset Date Resolution Status Left ankle sprain acute 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 [facility] Work Phone: Evaluation note* Diagnosis Onset Date Resolution Status Left ankle sprain acute 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 [facility] Work Phone: Evaluation note* Diagnosis Onset Date Resolution Status 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 Lumbar radiculopathy chronic Contact with and (suspected) exposure to other viral communicable diseases acute URI (upper respiratory infection) acute [facility] Work Phone: Evaluation note* Diagnosis Onset Date Resolution Status 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 Lumbar radiculopathy chronic Contact with and (suspected) exposure to other viral communicable diseases acute URI (upper respiratory infection) acute Bipolar disorder chronic Acute cystitis noneactive Influenza A acute [facility] Work Phone: Evaluation note* Diagnosis Surveillance for Depo-Provera contraception- Primary Surveillance of other previously prescribed contraceptive method Encounter for management and injection of depo-Provera Surveillance of other previously prescribed contraceptive method [facility] Diagnosis Onset Date Resolution Status Contact with and (suspected) exposure to other viral communicable diseases acute URI (upper respiratory infection) acute Bipolar disorder chronic Acute cystitis noneactive Influenza A acute Acute pharyngitis acute Contact with and (suspected) exposure to other viral communicable diseases acute Migraines chronic [facility] Work Phone: Evaluation note* Diagnosis Onset Date Resolution Status Influenza A acute Acute pharyngitis acute Contact with and (suspected) exposure to other viral communicable diseases acute Migraines chronic Lumbosacral facet joint syndrome acute Pain, dental noneactive [facility] Work Phone: Evaluation note* Diagnosis Onset Date Resolution Status Acute pharyngitis acute Contact with and (suspected) exposure to other viral communicable diseases acute Migraines chronic Lumbosacral facet joint syndrome acute Pain, dental noneactive Dental infection acute [facility] Work Phone: Evaluation note* Diagnosis Acute cystitis with hematuria- Primary Acute cystitis Dysmenorrhea Encounter for surveillance of other contraceptive [facility]* Diagnosis Encounter for management and injection of depo-Provera- Primary Surveillance of other previously prescribed contraceptive method [facility]* Diagnosis Pain in joint, multiple sites [facility] Diagnosis Pain in joint, multiple sites- Primary Vitamin D deficiency Unspecified vitamin D deficiency Low back pain, unspecified back pain laterality, unspecified chronicity, unspecified whether sciatica present documented [facility] this [facility]* Diagnosis Pain in joint, multiple sites documented [facility] this [facility]* Diagnosis Chronic bilateral low back pain with left-sided sciatica- Primary Pain in joint, multiple sites documented [facility] this [facility]* Diagnosis Encounter for management and injection of depo-Provera- Primary Surveillance of other previously prescribed contraceptive method [facility]* Diagnosis Genital herpes simplex, unspecified site documented [facility] this [facility]* Diagnosis Encounter for gynecological examination [...] complication Unspecified asthma [facility]* Diagnosis Acute pain of left knee documented in this encounter [facility] note* Diagnosis Encounter for Depo-Provera contraception- Primary Surveillance of other previously prescribed contraceptive method documented [facility] this encounter [facility] Diagnosis Genital herpes simplex, unspecified site [facility] this encounter [facility] Additional Instructions Seek medical attention if any new or worsening of symptoms.[facility] Work Phone: Hospital Discharge instructions Additional Instructions Stop the nitrofurantoin. Start the Bactrim.[facility] Work Phone: Hospital Discharge instructions Additional Instructions You may take Imodium as needed for your diarrheaWMercy [facility] Work Phone: Hospital Discharge instructions No data available for this section [facility] Progress note No data available for this section [facility] Reason for referral (narrative)* Diagnostic Procedure Only (Routine) - Closed Specialty Diagnoses / Procedures Referred By Contac t Referred To Contact XR IMAGING Diagnoses Pain in joint, multiple sites Procedures XR HIP BILATERAL 5V PEL/AP/LAT EACH HIP RADEX HIPS BILATERAL WITH PELVIS MINIMUM 5 VIEWS Lis Freedman MD [address] [facility] [address] [place] [address] [place] [address] Referral ID Status Reason Start Date Expiration Date V isits Requested Visits Authorized [id number] Closed Auto-Generate d Referral 06/18/2023 07/17/2024 1 1 * Diagnostic Procedure Only (Routine) - Closed Specialty Diagnoses / Procedures Referred By Contac t Referred To Contact XR IMAGING Diagnoses Pain in joint, multiple sites Procedures XR SACROILIAC JOINTS 2V AP PELVIS/FERGUESON RADIOLOGIC EXAMINATION SACROILIAC JNTS <3 VIEWS Lis Freedman MD [address] [place] [address] [place] [address] Referral ID Status Reason Start Date Expiration Date V isits Requested Visits Authorized [id number] Closed Auto-Generate d Referral 06/18/2023 07/17/2024 1 1 * Diagnostic Procedure Only (Routine) - Closed Specialty Diagnoses / Procedures Referred By Contac t Referred To Contact XR IMAGING Diagnoses Pain in joint, multiple sites Procedures XR LUMBAR GENERAL 3V AP/LAT/L5-S1 RADEX SPINE LUMBOSACRAL 2/3 VIEWS Lis Freedman MD [address] [place] [address] [place] [address] Referral ID Status Reason Start Date Expiration Date V isits Requested Visits Authorized [id number] Closed Auto-Generate d Referral 06/18/2023 07/17/2024 1 1 * Diagnostic Procedure Only (Routine) - Closed Specialty Diagnoses / Procedures Referred By Contac t Referred To Contact XR IMAGING Diagnoses Pain in joint, multiple sites Procedures XR KNEE SURVEY ARTHRITIS 1V AP BILATERAL RADIOLOGIC EXAM BOTH KNEES STANDING ANTEROPOST Lis Freedman MD [address] [place] [address] [place] [address] Referral ID Status Reason Start Date Expiration Date V isits Requested Visits Authorized [id number] Closed Auto-Generate d Referral 06/18/2023 07/17/2024 1 1 * Diagnostic Procedure Only (Routine) - Closed Specialty Diagnoses / Procedures Referred By Contac t Referred To Contact XR IMAGING Diagnoses Pain in joint, multiple sites Procedures XR HAND GENERAL 3V PA/LAT/OBL RIGHT RADEX HAND MINIMUM 3 VIEWS Lis Freedman MD [address] [place] [address] [place] [address] Referral ID Status Reason Start Date Expiration Date V isits Requested Visits Authorized [id number] Closed Auto-Generate d Referral 06/18/2023 07/17/2024 1 1 * Diagnostic Procedure Only (Routine) - Closed Specialty Diagnoses / Procedures Referred By Contac t Referred To Contact XR IMAGING Diagnoses Pain in joint, multiple sites Procedures XR HAND GENERAL 3V PA/LAT/OBL LEFT RADEX HAND MINIMUM 3 VIEWS Lis Freedman MD [address] [place] [address] [place] [address] Referral ID Status Reason Start Date Expiration Date V isits Requested Visits Authorized [id number] Closed Auto-Generate d Referral 06/18/2023 07/17/2024 1 1 [facility] Diagnostic Procedure Only (Routine) - Closed Specialty Diagnoses / Procedures Referred By Contac t Referred To Contact XR IMAGING Diagnoses Pain in joint, multiple sites Procedures XR HIP BILATERAL 5V PEL/AP/LAT EACH HIP RADEX HIPS BILATERAL WITH PELVIS MINIMUM 5 VIEWS Lis Freedman MD [address] [place] [address] [place] [address] Referral ID Status Reason Start Date Expiration Date V isits Requested Visits Authorized [id number] Closed Auto-Generate d Referral 06/18/2023 07/17/2024 1 1 * Diagnostic Procedure Only (Routine) - Closed Specialty Diagnoses / Procedures Referred By Contac t Referred To Contact XR IMAGING Diagnoses Pain in joint, multiple sites Procedures XR SACROILIAC JOINTS 2V AP PELVIS/FERGUESON RADIOLOGIC EXAMINATION SACROILIAC JNTS <3 VIEWS Lis Freedman MD [address] [place] [address] [place] [address] Referral ID Status Reason Start Date Expiration Date V isits Requested Visits Authorized [id number] Closed Auto-Generate d Referral 06/18/2023 07/17/2024 1 1 * Diagnostic Procedure Only (Routine) - Closed Specialty Diagnoses / Procedures Referred By Contac t Referred To Contact XR IMAGING Diagnoses Pain in joint, multiple sites Procedures XR LUMBAR GENERAL 3V AP/LAT/L5-S1 RADEX SPINE LUMBOSACRAL 2/3 VIEWS Lis Freedman MD [address] [place] [address] [place] [address] Referral ID Status Reason Start Date Expiration Date V isits Requested Visits Authorized [id number] Closed Auto-Generate d Referral 06/18/2023 07/17/2024 1 1 * Diagnostic Procedure Only (Routine) - Closed Specialty Diagnoses / Procedures Referred By Contac t Referred To Contact XR IMAGING Diagnoses Pain in joint, multiple sites Procedures XR KNEE SURVEY ARTHRITIS 1V AP BILATERAL RADIOLOGIC EXAM BOTH KNEES STANDING ANTEROPOST Lis Freedman MD [address] [place] [address] [place] [address] Referral ID Status Reason Start Date Expiration Date V isits Requested Visits Authorized [id number] Closed Auto-Generate d Referral 06/18/2023 07/17/2024 1 1 * Diagnostic Procedure Only (Routine) - Closed Specialty Diagnoses / Procedures Referred By Contac t Referred To Contact XR IMAGING Diagnoses Pain in joint, multiple sites Procedures XR HAND GENERAL 3V PA/LAT/OBL RIGHT RADEX HAND MINIMUM 3 VIEWS Lis Freedman MD [address] [place] [address] [place] [address] Referral ID Status Reason Start Date Expiration Date V isits Requested Visits Authorized [id number] Closed Auto-Generate d Referral 06/18/2023 07/17/2024 1 1 * Diagnostic Procedure Only (Routine) - Closed Specialty Diagnoses / Procedures Referred By Contac t Referred To Contact XR IMAGING Diagnoses Pain in joint, multiple sites Procedures XR HAND GENERAL 3V PA/LAT/OBL LEFT RADEX HAND MINIMUM 3 VIEWS Lis Freedman MD [address] [facility] [address] [place] [address] [place] [address] Referral ID Status Reason Start Date Expiration Date V isits Requested Visits Authorized [id number] Closed Auto-Generate d Referral 06/18/2023 07/17/2024 1 1 * Transition of Care (Routine) - Ref Not Required Specialty Diagnoses / Procedures Referred By Contac t Referred To Contact Pain Management Diagnoses Pain in joint, multiple sites Procedures CONSULT TO PAIN MGT Lis Freedman MD [address] [facility] [address] [place] [address] Referral ID Status Reason Start Date Expiration Date Visits Requested Visits Authorized [id number] Ref Not Required PCP Requested Referral 06/18/2023 2023 3 3 [facility] for referral (narrative)* Diagnostic Procedure Only (Urgent) - Closed Specialty Diagnoses / Procedures Referred By Contac t Referred To Contact XR IMAGING Diagnoses Acute pain of left knee Procedures XR KNEE GENERAL 4V AP BOTH/PA BOTH/LAT/MERC LEFT RADIOLOGIC EXAM KNEE COMPLETE 4/MORE VIEWS Vernon Calvin, ROCHELLE.FANCY STITCHER [address] [place] [address] [place] [address] Referral ID Status Reason Start Date Expiration Date V isits Requested Visits Authorized [id number] Closed Auto-Generate d Referral 05/30/2023 06/28/2024 1 1 [facility] for visit Narrative* Outpatient Procedure (Routine) - Closed Specialty Diagnoses / Procedures [facility] Referred To Contact Radiology / [facility] Diagnoses Chronic viral hepatitis C us liver elastography, order to be faxed by [email or web address] Procedures LIVER ELASTOGRAPHY W/O IMAG W/I&R US ELASTOGRAPHY Austin Casey MD [address] [place] [address] [place] [address] Referral ID Status Reason Start Date Expiration Date Visits Re quested Visits Authorized [id number] Closed 11/29/2022 05/06/2023 1 1 [facility] for visit Narrative* Outpatient Procedure (Routine) - Closed Specialty Diagnoses / Procedures Referred By [facility] Referred To Contact Radiology / [facility] Diagnoses Chronic viral hepatitis C liver elastography, order stacy faxed, Procedures US ABDOMINAL REAL TIME W/IMAGE DOCUMENTATION US ABDOMEN COMPLETE Austin Casey MD [address] [place] [address] [place] [address] Referral ID Status Reason Start Date Expiration Date Visits Re quested Visits Authorized [id number] Closed 11/29/2022 05/06/2023 1 1 [facility] for visit Narrative* Diagnostic Procedure Only (Routine) - Closed Specialty Diagnoses / Procedures [facility] Referred To Contact XR IMAGING Diagnoses Pain in joint, multiple sites Procedures XR HIP BILATERAL 5V PEL/AP/LAT EACH HIP RADEX HIPS BILATERAL WITH PELVIS MINIMUM 5 VIEWS Lis Freedman MD [address] [facility] [address] [place] [address] [place] [address] Referral ID Status Reason Start Date Expiration Date V isits Requested Visits Authorized [id number] Closed Auto-Generate d Referral 06/18/2023 07/17/2024 1 1 [facility] Diagnostic Procedure Only (Urgent) - Closed Specialty Diagnoses / Procedures Referred By Radha t Referred To Contact XR IMAGING Diagnoses Acute pain of left knee Procedures XR KNEE GENERAL 4V AP BOTH/PA BOTH/LAT/MERC LEFT RADIOLOGIC EXAM KNEE COMPLETE 4/MORE VIEWS Vernon Calvin APRN.FANCY STITCHER [address] [place] [address] [place] [address] Referral ID Status Reason Start Date Expiration Date V isits Requested Visits Authorized [id number] Closed Auto-Generate d Referral 05/30/2023 06/28/2024 1 1 [facility] Medications Administered Section Active Administered Medications [...] FoundDocuments on File Type Date Recorded Patient Study Specialist Expl anation Advance Directive(s) 05/19/2017 7:13 PM Advance Directive Response Recorded Date/ Time Living Will No December 11, 2021 3:21pm Power of Tug Boat Engineer No December 11 3:21pm Advance Directive Response Recorded Date/ Time Living Will No January 18, 2022 4:31pm Power of Tug Boat Engineer No January 4:31pm Advance Directive Response Recorded Date/ Time Living Will No March 01 2:41pm Power of Tug Boat Engineer No March 01, 2022 2:41pm Advance Directive Response Recorded Date/ Time Living Will No March 17 5:52pm Power of Tug Boat Engineer No March 17, 2022 5:52pm Advance Directive Response Recorded Date/ Time Living Will No March 20 6:39pm Power of Tug Boat Engineer No March 20, 2022 6:39pm Advance Directive Response Recorded Date/ Time Living Will No April 21 11:14am Power of Tug Boat Engineer No April 21, 2022 11:14am Advance Directive Response Recorded Date/ Time Living Will No May 06, 2 022 2:23pm Power of Tug Boat Engineer No May 06, 2022 2:23pm Advance Directive Response Recorded Date/ Time Living Will No June 10 7:07pm Power of Tug Boat Engineer No June 10, 2022 7:07pm Advance Directive Response Recorded Date/ Time Living Will No July 21, 2022 10:06am Power of Tug Boat Engineer No July 21 10:06am Advance Directive Response Recorded Date/ Time Living Will No August 14, 2022 7:46pm Power of Tug Boat Engineer No August 14 7:46pm Chief Complaint and [...] HEADACHE ABD PAIN, NAUSEA uti, abd pain [facility] ER FU/ FEELS LIKE SHES WORSE [...] HEADACHE ABD PAIN, NAUSEA uti, abd pain [facility] ER FU/ FEELS LIKE SHES WORSE SORE THROAT, COUGH, FEVER, ACHES REEVES SORE THROAT Reason for Visit Chronic left sacroil iac joint pain Chronic left sacroiliac joint pain Lumbar radiculopathy Contact with and (suspected) exposure to other viral communicable diseases URI (upper respiratory infection) Bipolar disorder Acute cystitis Influenza A Chief Complaint FEVER/COVID TEST HEADACHE ABD PAIN, NAUSEA uti, abd pain [facility] ER FU/ FEELS LIKE SHES WORSE [...] HIGH COMPLEX 45 MINS Anna Marie Pérez APRN.FANCY STITCHER [address] [place] [address] [facility] [address] [place] [id number] Referral ID Status Reason Start Date Expiration Date Visits Requested Visits Authorized [id number] Pending Review Auto-Generat ed Referral 07/13/2023 07/12/2024 1 1 Summary Purpose Additional Source Comments Source Comments (unrecognize d section and content) In the event this informatio n is protected by the Federal Confidentiality of Alcohol and Drug Abuse Patient Records regulations: The Federal rules restrict any use of the information to criminally investigate or prosecute any alcohol or drug abuse patient.[facility] event this information is protected by the Federal Confidentiality of Alcohol and Drug Abuse Patient Records regulations: The Federal rules restrict any use of the information to criminally investigate or prosecute any alcohol or drug abuse patient.[facility] Hospital[facility] the event this information is protected by the Federal Confidentiality of Alcohol and Drug Abuse Patient Records regulations: The Federal rules restrict any use of the information to criminally investigate or prosecute any alcohol or drug abuse patient.[facility] Hospital[facility] the event this information is protected by the Federal Confidentiality of Alcohol and Drug Abuse Patient Records regulations: The Federal rules restrict any use of the information to criminally investigate or prosecute any alcohol or drug abuse patient.[facility] Hospital[facility] the event this information is protected by the Federal Confidentiality of Alcohol and Drug Abuse Patient Records regulations: The Federal rules restrict any use of the information to criminally investigate or prosecute any alcohol or drug abuse patient.[facility] Hospital[facility] the event this information is protected by the Federal Confidentiality of Alcohol and Drug Abuse Patient Records regulations: The Federal rules restrict any use of the information to criminally investigate or prosecute any alcohol or drug abuse patient.[facility] Hospital[facility] the event this information is protected by the Federal Confidentiality of Alcohol and Drug Abuse Patient Records regulations: The Federal rules restrict any use of the information to criminally investigate or prosecute any alcohol or drug abuse patient.[facility] HospitalIn the event this information is protected by the Federal Confidentiality of Alcohol and Drug Abuse Patient Records regulations: The Federal rules restrict any use of the information to criminally investigate or prosecute any alcohol or drug abuse patient.[facility] HospitalIn the event this information is protected by the Federal Confidentiality of Alcohol and Drug Abuse Patient Records regulations: The Federal rules restrict any use of the information to criminally investigate or prosecute any alcohol or drug abuse patient.[facility] HospitalIn the event this information is protected by the Federal Confidentiality of Alcohol and Drug Abuse Patient Records regulations: The Federal rules restrict any use of the information to criminally investigate or prosecute any alcohol or drug abuse patient.[facility] HospitalIn the event this information is protected by the Federal Confidentiality of Alcohol and Drug Abuse Patient Records regulations: The Federal rules restrict any use of the information to criminally investigate or prosecute any alcohol or drug abuse patient.[facility] HospitalIn the event this information is protected by the Federal Confidentiality of Alcohol and Drug Abuse Patient Records regulations: The Federal rules restrict any use of the information to criminally investigate or prosecute any alcohol or drug abuse patient.[facility] HospitalIn the event this information is protected by the Federal Confidentiality of Alcohol and Drug Abuse Patient Records regulations: The Federal rules restrict any use of the information to criminally investigate or prosecute any alcohol or drug abuse patient.[facility] HospitalIn the event this information is protected by the Federal Confidentiality of Alcohol and Drug Abuse Patient Records regulations: The Federal rules restrict any use of the information to criminally investigate or prosecute any alcohol or drug abuse patient.[facility] HospitalIn the event this information is protected by the Federal Confidentiality of Alcohol and Drug Abuse Patient Records regulations: The Federal rules restrict any use of the information to criminally investigate or prosecute any alcohol or drug abuse patient.[facility] HospitalIn the event this information is protected by the Federal Confidentiality of Alcohol and Drug Abuse Patient Records regulations: The Federal rules restrict any use of the information to criminally investigate or prosecute any alcohol or drug abuse patient.[facility] HospitalIn the event this information is protected by the Federal Confidentiality of Alcohol and Drug Abuse Patient Records regulations: The Federal rules restrict any use of the information to criminally investigate or prosecute any alcohol or drug abuse patient.[facility] HospitalIn the event this information is protected by the Federal Confidentiality of Alcohol and Drug Abuse Patient Records regulations: The Federal rules restrict any use of the information to criminally investigate or prosecute any alcohol or drug abuse patient.[facility] HospitalIn the event this information is protected by the Federal Confidentiality of Alcohol and Drug Abuse Patient Records regulations: The Federal rules restrict any use of the information to criminally investigate or prosecute any alcohol or drug abuse patient.[facility] HospitalIn the event this information is protected by the Federal Confidentiality of Alcohol and Drug Abuse Patient Records regulations: The Federal rules restrict any use of the information to criminally investigate or prosecute any alcohol or drug abuse patient.[facility] HospitalIn the event this information is protected by the Federal Confidentiality of Alcohol and Drug Abuse Patient Records regulations: The Federal rules restrict any use of the information to criminally investigate or prosecute any alcohol or drug abuse patient.[facility] HospitalIn the event this information is protected by the Federal Confidentiality of Alcohol and Drug Abuse Patient Records regulations: The Federal rules restrict any use of the information to criminally investigate or prosecute any alcohol or drug abuse patient.[facility] HospitalIn the event this information is protected by the Federal Confidentiality of Alcohol and Drug Abuse Patient Records regulations: The Federal rules restrict any use of the information to criminally investigate or prosecute any alcohol or drug abuse patient.[facility] HospitalIn the event this information is protected by the Federal Confidentiality of Alcohol and Drug Abuse Patient Records regulations: The Federal rules restrict any use of the information to criminally investigate or prosecute any alcohol or drug abuse patient.[facility] HospitalIn the event this information is protected by the Federal Confidentiality of Alcohol and Drug Abuse Patient Records regulations: The Federal rules restrict any use of the information to criminally investigate or prosecute any alcohol or drug abuse patient.[facility] Reason for Visit (unrecogniz ed section [...] Procedures CONSULT TO PAIN Lis Martinez MD [address] [place] [address] [address] [place] [address] Referral ID Status Reason Start Date Expiration Date Visits Requested Visits Authorized [id number] Ref Not Required PCP Requested Referral 06/18/2023 2023 3 3 Reason Comments New Patient Evaluation Back Pain Hip Pain Leg Pain Left Specialty Diagnoses / Procedures Referred By Contac t Referred To Contact Pain Management Diagnoses Pain in joint, multiple sites Procedures CONSULT TO PAIN Lis Martinez MD [address] [facility] [address] [place] [address] Reason Onset Date Comments Depo Provera Injection [...] Primary Care Provider, Refer ring Provider Active Henry Washington PA, PA Attending Provider Active Team Status: Inactive Member Role Status Dates Dr. Rosa Kemp MD Primary Care Provider, Refer ring Provider Active Woody Encinas HELIARC WELDER, HELIARC WELDER-C Attending Provider Active Team Status: Inactive Member Role Status Dates Dr. Rosa Kemp MD Primary Care Provider, Refer ring Provider Active Drake Marshall PA, PA Attending Provider Active Team Status: Inactive Member Role Status Dates Dr. Rosa Kemp MD Primary Care Provider, Refer ring Provider Active Renny Carey PA, PA Attending Provider Active Team Status: Inactive [...] MD Primary Care Provider Active Woody Encinas HELIARC WELDER, HELIARC WELDER-C Attending Provider Active Team Status: Inactive Member Role Status Dates Dr. Rosa Kemp MD Primary Care Provider Active Dr. Kaleb Molina DO Emergency Provider Active Team Status: Inactive Member Role Status Dates Dr. Rosa Kemp MD Primary Care Provider Active Woody Encinas HELIARC WELDER, HELIARC WELDER-C Attending Provider Active Team Status: Inactive Member Role Status Dates Dr. Rosa Kemp MD Primary Care Provider Active Dr. Isma Pal MD Emergency Provider Active Project Controls Scheduler Relationship Specialty Start Date End Date Rosa Kemp MD [address] [place] [address] PCP - General Internal Medicine 05/30/23 Project Controls Scheduler Relationship Specialty Start Date End Date Rosa Kemp MD [address] [place] [address] PCP - General Internal Medicine 05/30/23 Project Controls Scheduler Relationship Specialty Start Date End Date Rosa Kemp MD [address] [place] [address] PCP - General Internal Medicine 05/30/23 Project Controls Scheduler Relationship Specialty Start Date End Date Rosa Kemp MD [address] [place] [address] PCP - General Internal Medicine 05/30/23 Project Controls Scheduler Relationship Specialty Start Date End Date Rosa Kemp MD [address] [place] [address] PCP - General Internal Medicine 05/30/23 Project Controls Scheduler Relationship Specialty Start Date End Date Rosa Kemp MD [address] [place] [address] PCP - General Internal Medicine 05/30/23 Project Controls Scheduler Relationship Specialty Start Date End Date Rosa Kemp MD [address] [place] [address] PCP - General Internal Medicine 05/30/23 Project Controls Scheduler Relationship Specialty Start Date End Date Rosa Kemp MD [address] [place] [address] PCP - General Internal Medicine 05/30/23 Project Controls Scheduler Relationship Specialty Start Date End Date Rosa Kemp MD [address] [place] [address] PCP - General Internal Medicine 05/30/23 Project Controls Scheduler Relationship Specialty Start Date End Date Rosa Kemp MD [address] [place] [address] PCP - General Internal Medicine 05/30/23 Project Controls Scheduler Relationship Specialty Start Date End Date Rosa Kemp MD [address] [place] [address] PCP - General Internal Medicine 05/30/23 Project Controls Scheduler Relationship Specialty Start Date End Date Rosa Kemp MD [address] [place] [address] PCP - General Internal Medicine 05/30/23 Project Controls Scheduler Relationship Specialty Start Date End Date Rosa Kemp MD [address] [place] [address] PCP - General Internal Medicine 05/30/23 Project Controls Scheduler Relationship Specialty Start Date End Date Rosa Kemp MD [address] [place] [id number] PCP - General Internal Medicine 05/30/23 Project Controls Scheduler Relationship Specialty Start Date End Date Rosa Kemp MD [facility] [place] [id number] PCP - General Internal Medicine 05/30/23 Care Team (unrecognized sect ion and content) Care Team Personnel Name: ROSA KEMP MD Member Role: Primary Care Physician Address: Address: [facility] [place] Care Team Personnel Name: ROSA KEMP MD Member Role: Primary Care Physician Address: Address: [facility] [place] [address] Care Team Personnel Name: ROSA KEMP MD Member Role: Primary Care Physician Address: Address: [facility] [place] [address] Care Team Personnel Name: ROSA KEMP MD Member Role: Primary Care Physician Address: Address: [facility] [place] Name: SAM MACIAS MD Position: ED Physician Member Role: Attending Physician Address: Address: [facility] [address] [place] [address] Goals (unrecognized section and content) Goals may be documented in a n alternate section INFORMATION SOURCE (unrecogn ized section and content) DATE CREATED AUTHOR 10/11/2023 [facility] DATE CREATED AUTHOR AUTHOR'S ORGANIZ ATION 11/23/2023 [facility] ([place]) DATE CREATED AUTHOR AUTHOR'S ORGANIZ ATION 02/16/2024 [facility] DATE CREATED AUTHOR AUTHOR'S ORGANIZ ATION 03/07/2025 [facility] DATE CREATED AUTHOR AUTHOR'S ORGANIZ ATION 03/15/2025 [facility] FOR RECORDS PERTAINING TO PATIENTS WHO [...] BE BASED ON THE PRIMARY CLINICAL RECORDS. [facility] [employer] [facility]. provides no warranty or guarantee of the accuracy or completeness of information in this document.
== END | disposition home or self-care (01) ==
LOC: NM 10:16
PROVIDERS: PCP Internal Medicine; Referring Provider Student in an Organized Health Care Education/Training Program; Visit Provider Student in an Organized Health Care Education/Training Program
DX: R11.2 Nausea with vomiting, unspecified (principal)
CPT/HCPCS: 78264; A9541